=== PATIENT | female | born 1975 | race African-American/Black ===

== ENCOUNTER 2022-10-10 18:15 | Emergency (ER) | payer MEDICAID, SELFPAY ==
[2022-10-10 18:21] VITALS: BP 131/90; PULSE 80; RESP 16; TEMP 36.7; O2SAT 99; BMI 53.2
--- NOTE | 2022-10-10 19:53 | ED_ITS ---
HPI - General Adult General Chief complaint: Extremity Injury, Upper Stated complaint: RIB PAIN Time Seen by Provider: 10/10/22 18:27 Source: patient Mode of arrival: walk-in History of Present Illness HPI narrative: pt presents to emergency department complaining of left rib pain. Patient states one week ago she was inside her car and noticed that her sugar was high. She leaned forward to try to titrate her shoe and felt a pop to the left rib. Since then she's been having a lot of pain to the left rib. She was out of, she got here she went to [place] and had an rib x-ray done. The x-ray was unremarkable. The patient was prescribed Toradol and discharged home. She states that medication has not been helping. She still has the pain. Pain is worse when she moves. She denies any fever, chills, or cough. She denies any abdominal pain, nausea, vomiting, diarrhea, constipation, flank pain, hematuria, dysuria. She denies any paresthesias, weakness. Related Data Previous Rx's Medication Instructions Recorded cephalexin 500 mg capsule 500 mg PO Q8H 7 days #21 caps 10/10/22 oxycodone-acetaminophen 5 mg-325 1 tab PO Q6H PRN pain 5 days #14 10/10/22 mg tablet (Percocet) tabs Allergies Allergy/AdvReac Type Severity Reaction Status Date / Time acetaminophen [From [place]] Allergy Severe Verified 10/10/22 18:20 aloe vera [From [place]] Allergy Severe Verified 10/10/22 18:20 hydrocodone [From [place]] Allergy Severe Verified 10/10/22 18:20 menthol [From [facility]] Allergy Severe Verified 10/10/22 18:20 vitamin E (d-alpha Allergy Severe Verified 10/10/22 18:20 tocopherol) [From [facility]] Review of Systems ROS Status of ROS 10 or more systems reviewed and unremarkable except as noted in history and below Exam Narrative Exam Narrative: Nurses notes and vital signs reviewed and patient is not hypoxic. General: Nontoxic, Well-appearing and in no apparent distress. Skin: Warm, dry, no pallor noted. No Rash Head: Normocephalic, atraumatic. Neck: Supple, non-tender. Eye: Pupils are equal, round and EOMI. No scleral icterus. Ears, Nose, Mouth, and Throat: TM clear, no posterior oropharynx erythema or nasal mucosal hypertrophy, uvula is mid-line Oral mucosa is moist Cardiovascular: Regular Rate and Rhythm without murmur, gallop or rub. Respiratory: No accessory muscle use or respiratory distress. Lungs are clear to auscultation, no wheezing, rales or rhonchi Chest Wall: Moderate left lateral tenderness to rib 8 and 9, there are no step- offs, there is no crepitance. No ecchymosis, Signs of trauma, infection noted. Large pendulous breasts Back: No midline thoracic or lumbar vertebral tenderness. No CVA tenderness Musculoskeletal: normal ROM, no calf or popliteal tenderness, no lower ex tremity edema/swelling GI: morbid obese, Abdomen is soft, non-distended. Normal bowel sounds. No masses appreciated. No tenderness to palpation. No rebound, guarding, or rigidity noted. Neurological: A&O x4. No cranial nerve dysfunction observed. No truncal ataxia. Moves all extremities. Sensation intact. Psychiatric: Cooperative and interactive. Normal mood and affect. Constitutional Vital Signs, click to edit/add: Last Vital Signs Temp 98.0 F 10/10/22 18:21 Pulse 80 10/10/22 18:21 Resp 16 10/10/22 18:21 BP 131/90 10/10/22 18:21 Pulse Ox 99 10/10/22 18:21 O2 Del Method Room Air 10/10/22 18:21 Course Vital Signs Vital signs: Vital Signs Temperature 98.0 F 10/10/22 18:21 Pulse Rate 80 10/10/22 18:21 Respiratory Rate 16 10/10/22 18:21 Blood Pressure 131/90 10/10/22 18:21 Pulse Oximetry 99 10/10/22 18:21 Oxygen Delivery Method Room Air 10/10/22 18:21 Temperature 98.0 F 10/10/22 18:21 Pulse Rate 80 10/10/22 18:21 Respiratory Rate 16 10/10/22 18:21 Blood Pressure 131/90 10/10/22 18:21 Pulse Oximetry 99 10/10/22 18:21 Oxygen Delivery Method Room Air 10/10/22 18:21 Medical Decision Making MDM Narrative Medical decision making narrative: OARRS was checked and appropriate. The patient has not received any controlled prescriptions since April 2021. Patient states she does not have a ride at this time. She was given a prescription for Percocet, She was given one Percocet to take when she arrives at home.PEP was ordered. Prescription for Keflex. Patient was also given an injection of Toradol. At this time the patient is without objective evidence of an acute process requiring hospitalization or inpatient management. The patient has remained hemodynamically stable. No additional indication for emergent studies at this time. I answered all questions. Discussed discharge instructions including standard anticipatory guidance and what should prompt a return to the emergency department, including if they get worse are not getting better or develops any new or concerning symptoms. I've given them specific time frame in which to follow-up, and who to follow-up with. The patient demonstrates understanding. Patient is nontoxic and stable for discharge with outpatient follow-up. This note was created with the assistance of a speech recognition program. Although the intention is to generate documents that actually reflects the content of the visit, no guarantees can be provided that every mistake has been identified and corrected by editing. Lab Data Lab results reviewed: Yes I reviewed the patient's lab results Labs: Lab Results 10/10/22 Range/Units 20:20 Urine Color Yellow (YELLOW) Urine Clarity Clear (CLEAR) Urine pH 5.5 (5.0-9.0) Ur Specific [place] 1.020 (1.005-1.025) Urine Protein Negative (NEG/TRACE) mg/dL Urine Glucose (UA) Negative (NEGATIVE) mg/dL Urine Ketones Negative (NEGATIVE) mg/dL Urine Occult Blood Negative (NEGATIVE) Urine Nitrite Positive A (NEGATIVE) Urine Bilirubin Negative (NEGATIVE) Urine Urobilinogen 1.0 (0.2-1.0) EU/dL Ur Leukocyte Esterase Small A (NEGATIVE) Urine RBC 0-2 (0-2) #/HPF Urine WBC 10-20 A (NONE SEEN) #/HPF Ur Squamous Epith Cells Moderate A (NONE/RARE) #/LPF Urine Crystals None seen (None Seen) #/HPF Urine Bacteria Large A (NONE SEEN) #/HPF Urine Casts None seen (NONE SEEN) #/LPF Urine Mucus None seen (NONE SEEN) Ur Culture Indicated? Yes Discharge Plan Discharge Chief Complaint: Extremity Injury, Upper Clinical Impression: UTI (urinary tract infection), Left rib fracture Patient Disposition: Home, Self-Care Time of Disposition Decision: 21:17 Condition: Good Mode of Transportation: Private Vehicle Prescriptions / Home Meds: New cephalexin 500 mg capsule 500 mg PO Q8H 7 Days Qty: 21 0RF oxycodone-acetaminophen [Percocet] 5-325 mg tablet 1 tab PO Q6H PRN (Reason: pain) 5 Days Qty: 14 0RF Instructions: Urinary Tract Infection in Women (ED), Rib Fracture (ED) Stand Alone Forms: Portal Instructions Referrals: PRIMITIVO GUERRERO APRN [Physician] - 1 week Physician,Non-Staff, [Primary Care Provider] - 1 week Discharge Date/Time: 10/10/22 21:59
--- NOTE | 2022-10-10 20:03 | XR_ITS ---
The [address] [address] Patient Name: GENNARO ADKINS MRN: [id number] date: 1975 Sex: F Assigned Patient Location: ER Current Patient Location: ED.MAIN Accession/Order Number: [id number] Exam Date: 10/10/2022 20:38 Report Date: 10/10/2022 21:27 At the request of: HENRY WINN Procedure: XR ribs LT min 3V w CXR1V EXAM: XR ribs LT min 3V w CXR1V HISTORY: LEFT RIB PAIN COMPARISON: None. TECHNIQUE: 7 views FINDINGS: There is a mildly offset fracture of the anterolateral left seventh rib. Other ribs are intact. Multilevel thoracic spondylosis is noted, commensurate with age. The lung cain are well-expanded and clear. Cardiovascular silhouette is normal. XR/XR ribs LT min 3V w CXR1V IMPRESSION: Left seventh rib fracture. Electronically authenticated by: Dat HERNANDEZ Date: 10/10/2022 21:27
[2022-10-10 20:51] LABS: Bilirubin Urine NEGATIVE (NEGATIVE); Blood Urine NEGATIVE (NEGATIVE); Clarity Urine CLEAR (CLEAR); Color Urine YELLOW (YELLOW); Glucose Urine UA NEGATIVE (NEGATIVE); Ketones Urine NEGATIVE (NEGATIVE); Leukocyte Esterase Urine SMALL (NEGATIVE); Nitrite Urine POSITIVE (NEGATIVE); Protein Urine NEGATIVE (NEG/TRACE); pH Urine 5.5 (5.0-9.0)
[2022-10-10 20:54] LABS: Urine Microscopic Indicated YES
[2022-10-10 20:59] LABS: Bacteria Urine LARGE #/HPF (NONE SEEN); Cast Seen? NONE SEEN #/LPF (NONE SEEN); Crystals Seen? None Seen #/HPF (None Seen); Mucus Urine NONE SEEN (NONE SEEN); RBC Urine 0-2 #/HPF (0-2); Squamous Epithelial Cell Urine MODERATE #/LPF (NONE/RARE); Urine Culture Indicated YES
[2022-10-10] MEDS: CEPHALEXIN 500 MG CAPSULE PO (21:53)
[2022-10-10] MEDS: KETOROLAC TROMETHAMINE 60 MG/2 ML VIAL IM (21:54)
== END 2022-10-10 21:59 | disposition home or self-care (01) ==
PROVIDERS: Physician Assistant; Emergency Provider Emergency Medicine
DX: S22.32XA Fracture of one rib, left side, initial encounter for closed fracture (principal); N39.0 Urinary tract infection, site not specified; X50.9XXA Other and unspecified overexertion or strenuous movements or postures, initial encounter; E66.01 Morbid (severe) obesity due to excess calories; Z68.43 Body mass index [BMI] 50.0-59.9, adult
CPT/HCPCS: 71101; 81001; 81003; 87086; 87150; 87186; 94667; 96372; 99285

== ENCOUNTER 2023-03-20 17:37 | Emergency (ER) | payer MEDICAID, SELFPAY ==
[2023-03-20 17:42] VITALS: BP 161/108; PULSE 92; RESP 18; TEMP 36.8; O2SAT 96; BMI 55.7
--- NOTE | 2023-03-20 17:48 | XR_ITS ---
The [place] [id number] Patient Name: GENNARO ADKINS MRN: [id number] date: 1975 Sex: F Assigned Patient Location: ER Current Patient Location: ED.MAIN Accession/Order Number: [id number] Exam Date: 03/20/2023 17:53 Report Date: 03/20/2023 18:22 At the request of: BRIDGETT SHEN Procedure: XR chest 1V Exam: Radiographs: XR chest 1V Reason for exam: Chest pain Comparison: Chest x-ray dated 12/07/2013 XR/XR chest 1V IMPRESSION: Unremarkable chest x-ray. Electronically authenticated by: CARMEN CHÁVEZ Date: 03/20/2023 18:22
--- NOTE | 2023-03-20 17:48 | US_ITS ---
The [address] [address] Patient Name: GENNARO ADKINS MRN: [id number] date: 1975 Sex: F Assigned Patient Location: ER Current Patient Location: ER Accession/Order Number: [id number] Exam Date: 03/20/2023 18:10 Report Date: 03/20/2023 20:02 At the request of: BRIDGETT SHEN Procedure: US right upper quadrant EXAM: Abdominal ultrasound limited CLINICAL INDICATION: RUQ pain. COMPARISON: None TECHNIQUE: Grayscale and color Doppler imaging was performed of the right upper quadrant abdomen. FINDINGS: Liver: Diffuse hepatic steatosis. Mild hepatomegaly measuring up to 19.8 cm. No abnormal hepatic masses. Portal and hepatic veins are grossly patent. Gallbladder: Probable small amount of non-shadowing cholelithiasis versus echogenic sludge. No gallbladder wall thickening. No pericholecystic fluid. No evidence of sonographic Angela's sign noted by the clutch mechanic. Nondilated gallbladder. Biliary: No intrahepatic biliary ductal dilation. Common bile duct measures 3 mm. Kidneys: No right hydronephrosis. No sonographically evident right renal calculi. No right renal masses. Right kidney measures 10.5 cm length. Aorta/IVC: Patent and normal caliber where visualized. No ascites. US/US right upper quadrant IMPRESSION: 1. No acute sonographic abnormalities in the right upper quadrant. 2. Cholelithiasis with small amount of nonshadowing stones versus echogenic biliary sludge. Electronically authenticated by: CARMEN CHÁVEZ Date: 03/20/2023 20:02
--- NOTE | 2023-03-20 17:50 | ED_ITS ---
HPI - Abdominal Pain General Chief Complaint: Back Pain/Injury Stated Complaint: R SIDE PAIN Time Seen by Provider: 03/20/23 17:42 Source: patient Mode of arrival: Wheelchair Limitations: no limitations History of Present Illness HPI narrative: 47-year-old female presents to the emergency department for right upper quadrant abdominal pain which she's had it continuously since yesterday. No history of gallbladder issues. The rest of her abdomen does not hurt. No fever or cough and she doesn't complain of shortness of breath. The pain is moderate. Related Data Previous Rx's Medication Instructions Recorded cephalexin 500 mg capsule 500 mg PO Q8H 7 days #21 caps 10/10/22 oxycodone-acetaminophen 5 mg-325 1 tab PO Q6H PRN pain 5 days #14 10/10/22 mg tablet (Percocet) tabs Allergies Allergy/AdvReac Type Severity Reaction Status Date / Time acetaminophen [From [place]] Allergy Severe Verified 10/10/22 18:20 aloe vera [From [facility]] Allergy Severe Verified 10/10/22 18:20 hydrocodone [From [place]] Allergy Severe Verified 10/10/22 18:20 menthol [From [facility]] Allergy Severe Verified 10/10/22 18:20 vitamin E (d-alpha Allergy Severe Verified 10/10/22 18:20 tocopherol) [From [facility]] Review of Systems ROS Narrative A ten point review of systems is negative except as noted above. PFSH PFSH Social History Smoking status: Never smoker Exam Narrative Exam Narrative: Nurses note and vital signs reviewed and patient is not hypoxic. General: The patient appears well and in no apparent distress. Patient is resting comfortably on cart. Skin: Warm, dry, no pallor noted. There is no rash noted. Head: Normocephalic, atraumatic Eye: Normal conjunctiva, no drainage Ears, Nose, Mouth, and Throat: oral mucosa is moist. Nares patent. Cardiovascular: Regular Rate and Rhythm Respiratory: Patient is in no distress, no accessory muscle use, lungs are clear to auscultation, no wheezing, rales or rhonchi Back: non-tender GI: obese soft and nondistended. She has some tenderness in the right upper quadrant. No bruise or rash present. Musculoskeletal: The patient has no evidence of calf tenderness, no pitting edema, symmetrical pulses noted bilaterally Neurological: A&O, normal speech Psychiatric: Cooperative Constitutional Vital Signs, click to edit/add: Last Vital Signs Temp 98.2 F 03/20/23 17:42 Pulse 92 H 03/20/23 17:42 Resp 18 03/20/23 17:42 BP 161/108 H 03/20/23 17:42 Pulse Ox 96 03/20/23 17:42 O2 Del Method Room Air 03/20/23 17:42 Course Vital Signs Vital signs: Vital Signs Temperature 98.2 F 03/20/23 17:42 Pulse Rate 92 H 03/20/23 17:42 Respiratory Rate 18 03/20/23 17:42 Blood Pressure 161/108 H 03/20/23 17:42 Pulse Oximetry 96 03/20/23 17:42 Oxygen Delivery Method Room Air 03/20/23 17:42 Temperature 98.2 F 03/20/23 17:42 Pulse Rate 92 H 03/20/23 17:42 Respiratory Rate 18 03/20/23 17:42 Blood Pressure 161/108 H 03/20/23 17:42 Pulse Oximetry 96 03/20/23 17:42 Oxygen Delivery Method Room Air 03/20/23 17:42 MDM - Abdominal Pain MDM Narrative Medical decision making narrative: Tests are ordered including gallbladder ultrasound and the patient is signed out to Dr. Krueger. Differential Diagnosis Differential diagnosis: Likely abdominal pain, constipation, pancreatitis and other (gallbladder disease) Lab Data Labs: Lab Results 03/20/23 Range/Units 18:00 WBC 2.0 L (4.0-11.0) 10^3/uL RBC 4.13 L (4.20-5.40) 10^6/uL Hgb 12.4 (12.0-16.0) g/dL Hct 38.8 (36.0-48.0) % MCV 93.9 (81.0-99.0) fL MCH 30.0 (26.7-34.0) pg MCHC 32.0 (29.9-35.2) g/dL RDW 14.6 (11.0-15.0) % Plt Count 346 (150-450) 10^3/uL MPV 8.6 L (9.5-13.5) fL Discharge Plan Discharge Patient Disposition: Still a Patient
--- NOTE | 2023-03-20 18:09 | PC.NURSE ---
pt states R upper rib pain started last night after almost slipping in the shower. denies any urinary sx. ddenies any nausea/vomiting/diarrhea. took percocet at 0430 this morning,
[2023-03-20 18:18] LABS: Hematocrit 38.8 % (36.0-48.0); Hemoglobin 12.4 g/dL (12.0-16.0); Mean Corpuscular Volume 93.9 fL (81.0-99.0); Mean Platelet Volume 8.6 fL (9.5-13.5); Platelet Count 346 10^3/uL (150-450); Red Blood Count 4.13 10^6/uL (4.20-5.40); Red Cell Distribution Width 14.6 % (11.0-15.0)
[2023-03-20 18:43] LABS: Alanine Aminotransferase 24 U/L (14-59); Amylase 89 U/L (25-115); Anion Gap 10.7; Aspartate Amino Transferase 23 U/L (15-37); BUN Creatinine Ratio 6.5; Bilirubin Direct 0.1 mg/dL (0.0-0.2); Bilirubin Total 0.6 mg/dL (0.2-1.0); Calcium 8.6 mg/dL (8.5-10.1); Carbon Dioxide 29.8 mmol/L (21.0-32.0); Chloride 104 mmol/L (98-107); Estimated GFR (African America >60 (>=60); Estimated GFR (Non-African Ame >60 (>=60); Glucose 116 mg/dL (74-106); Potassium 3.5 mmol/L (3.5-5.1); Sodium 141 mmol/L (136-145)
[2023-03-20 18:44] LABS: Albumin Globulin Ratio 0.7; Albumin Level 3.2 g/dL (3.4-5.0); Alkaline Phosphatase 116 U/L (46-116); Basophils Abs Manual 0.04 10^3/uL (0.00-0.10); Globulin 4.3 g/dL; Lymphocytes Absolute Manual 0.84 10^3/uL (1.20-3.80); Monocytes Absolute Manual 0.16 10^3/uL (0.30-0.80); Segmented Neut Absolute Manual 0.92 10^3/uL (1.4-6.5); Total Protein 7.5 g/dL (6.4-8.2)
--- NOTE | 2023-03-20 20:38 | CT_ITS ---
The [address] [address] Patient Name: GENNARO ADKINS MRN: [id number] date: 1975 Sex: F Assigned Patient Location: ER Current Patient Location: ER Accession/Order Number: [id number] Exam Date: 03/20/2023 20:48 Report Date: 03/20/2023 21:34 At the request of: KATIE MATIAS Procedure: CT angio chest EXAM: CT pulmonary angiogram of the chest with IV iodinated contrast. 3-D imaging was performed. Dose reduction technique used: Automated exposure control and/or adjustment of the mA and/or kV according to patient size and/or use of iterative reconstruction technique. REASON FOR EXAM: right pleuritic chest pain COMPARISON: CT scan dated 07/01/2009 FINDINGS: No central or segmental pulmonary emboli. Respiratory motion artifact prevents adequate evaluation of the subsegmental pulmonary artery branches. No aortic dissection. No pneumothorax. No acute airspace opacities. No pleural effusion. No acute fractures. No definite coronary atherosclerotic calcifications evident. 3.3 x 2.8 cm mass in the medial right lung base, this is not substantially changed compared to 2009. The opacity has some internal locules of gas. Small esophageal hiatal hernia. Cardiomegaly. Sleeve gastrectomy. 1.6 cm left adrenal nodule, this is been present since 2010 and is likely benign. Mildly enlarged bilateral axillary lymph nodes, for example a left axillary lymph node measures 1.5 x 1.5 cm density series 4, image 28). Remainder unremarkable. CT/CT angio chest IMPRESSION: 1. No central or segmental pulmonary embolism or acute abnormalities in chest. 2. Medial right lung base mass is not substantially changed in size compared to 07/01/2009 and is likely benign. 3. Bilateral axillary lymphadenopathy is indeterminate, correlate clinically. Electronically authenticated by: CARMEN CHÁVEZ Date: 03/20/2023 21:34
[2023-03-20 20:51] VITALS: BP 150/88; PULSE 88; RESP 15; O2SAT 98
[2023-03-20] MEDS: KETOROLAC TROMETHAMINE 30 MG/ML VIAL IVP (21:10)
[2023-03-20 22:00] VITALS: PULSE 78; RESP 16; O2SAT 98
== END 2023-03-20 22:00 | disposition home or self-care (01) ==
PROVIDERS: Emergency Medicine; Emergency Provider Internal Medicine
DX: S29.011A Strain of muscle and tendon of front wall of thorax, initial encounter (principal); W18.40XA Slipping, tripping and stumbling without falling, unspecified, initial encounter
CPT/HCPCS: 36415; 71045; 71275; 76705; 80048; 80076; 82150; 83690; 85007; 85027; 96374; 99285; J1885; Q9967

== ENCOUNTER 2023-07-18 20:05 | Outpatient (REF) | payer MEDICAID, SELFPAY ==
--- OUTSIDE RECORDS SUMMARY | 2023-07-18 20:13 | XMS_ITS | CCD ---
Author Organization [facility] Care Team Providers Care Director Corporate Security Name Role Phone SALLY WELCH Admitting Unavailable SALLY WELCH Attending Unavailable MISC, DOCTOR Primary Care Unavailable JC DODSON Consulting Unavailable SALLY WELCH Consulting Unavailable LYSSA PARK Admitting Unavailable ANGDU, JORDYN Primary Care Unavailable LYSSA PARK Attending Unavailable KINGS MIRANDA Referring Unavailable Alesha Watkins Unavailable Shilpi Cedillo Unavailable Lynda Pena Unavailable RIKI Sherman Attending Unavailable Velia LUND Attending Unavailable Zhane SENIOR CONSUMER INSIGHTS CONSULTANT-SOAP DRIER OPERATOR, Bong Primary Care Provid er FARRUKH WILCOX Attending Unavailable ZHANE, BONG Referring Unavailable ZHANE, BONG Primary Care Unavailable ZHANE, BONG Attending Unavailable ZHANE, BONG Referring Unavailable ZHANE, BONG Primary Care Unavailable ZHANE, BONG Attending Unavailable ZHANE, BONG Referring Unavailable ZHANE, BONG Primary Care Unavailable DARLIN HOLLAND Attending Unavailable ZHANE, BONG Referring Unavailable ZHANE, BONG Primary Care Unavailable ZHANE, BONG Referring Unavailable ZHANE, BONG Primary Care Unavailable FARRUKH ALICIA Referring Unavailable ZHANE, BONG Primary Care Unavailable ZHANE, BONG Referring Unavailable ZHANE, BONG Primary Care Unavailable ZHANE, BONG Attending Unavailable ZHANE, BONG Referring Unavailable ZHANE, BONG Primary Care Unavailable ZHANE, BONG Referring Unavailable ZHANE, BONG Primary Care Unavailable ZHANE, BONG Referring Unavailable ZHANE, BONG Primary Care Unavailable ZHANE, BONG Attending Unavailable ZHANEBONG Referring Unavailable ZHANEBONG Primary Care Unavailable Allergies Allergy Classification Reported Allergen(s) Allergy Type Date of Onset Reaction(s) Facility (4 sources) Acetaminophen / HYDROcodone; Translations: [NORCO] Drug Allergy 1 Itchy [facility] (4 sources) cyclobenzaprine; Translations: [FLEXERIL] Drug Allergy 1 Itchy [facility] Repository (20 sources) hydroCHLOROthiazi de; Translations: [hydroCHLOROthiaz jorge] Drug Allergy 0 Nausea [facility] (1 source) Acetaminophen / HYDROcodone; Translations: [acetaminophen-hy drocodone] Drug Allergy 1 [facility] Repository (20 sources) cyclobenzaprine; Translations: [cyclobenzaprine] Drug Allergy 1 Headache, Hives [facility] (20 sources) Acetaminophen / HYDROcodone; Translations: [HYDROCODONE-ACET AMINOPHEN] Drug Allergy 0 Itching, Headache [facility] Medications Current Medications Medication Drug Class(es) Dates Sig (Normalized) Sig (Original) 8 hr acetaminophen 650 mg extended release oral tablet (19 sources) acetaminophen (TYLENOL ARTHRITIS) 650 mg 8 hr tablet acetaminophen ER 650 mg tablet,extended release 0 Active acetaminophen 325 mg / oxyCODONE hydrochloride 7.5 mg oral tablet (20 sources) Opioid Agonist Start: 03-21-2023 End: 06-11-2023 oxyCODONE-acetaminop hen (PERCOCET) 7.5-325 mg per tablet Indications: Other forms of systemic lupus erythematosus, unspecified organ involvement status (CMS-HCC) Take 1 tablet by mouth every 6 (six) hours as needed for pain. Max Daily Amount: 4 tablets 20 tablet 0 06/11/2023 Active Start: 03-08-2023 oxyCODONE-acet aminophen (PERCOCET) 7.5-325 mg per tablet Indications: Other forms of systemic lupus erythematosus, unspecified organ involvement status (CMS-HCC) Take 1 tablet by mouth every 6 (six) hours as needed for pain. Max Daily Amount: 4 tablets 20 tablet 0 03/08/2023 Active [id number] actuat albuterol 0.09 mg/actuat metered dose inhaler (20 sources) beta2-Adrenergic Agonist Start: 06-29-2022 take 2 puff(s) by inhalation every four to six hours as needed Albuterol Sulfate HFA 108 (90 Base) MCG/ACT 2 puffs as needed Inhalation every 4-6 hours for 14 days Jun, Active Start: 02-28-2019 take 1 puff(s) by in halation every four to six hours Albuterol Sulfate Active 2 PUFF INHALATION EVERY 4-6 HOURS February 28, 2019 5:05pm albuterol (PROVE NTIL,VENTOLIN) 2.5 mg /3 mL (0.083 %) nebulizer solution Inhale 3 mL (2.5 mg total) by nebulization as needed for wheezing. 0 Active albuterol (PROVE NTIL HFA;VENTOLIN HFA) 90 mcg/actuation inhaler Inhale 2 puffs as needed for wheezing. 0 Active Albuterol PRN Ac tive amLODIPine 10 mg oral tablet (19 sources) Dihydropyridine Calcium Channel Silvana Start: 11-05-2022 take 1 tablet by mouth in the morning amLODIPine (NORVASC) 10 mg tablet Indications: Essential hypertension Take 1 tablet (10 mg total) by mouth in the morning. 30 tablet 11 11/05/2022 Active ascorbic acid 500 mg oral tablet (19 sources) Vitamin C take 500 mg by mouth once daily ascorbic acid (VITAMIN C ORAL) Take 500 mg by mouth daily. 0 Active atogepant (QULIPTA) 60 mg tablet (19 sources) Start: 12-06-2022 take 1 tablet by mouth in the morning atogepant (QULIPTA) 60 mg tablet Indications: Other migraine without status migrainosus, not intractable Take 60 mg by mouth in the morning. 30 tablet 0 12/06/2022 Active Atovaquone (1 source) Antimalarial, Antiprotozoal Start: 02-28-2019 take 1 mL by mouth once daily Atovaquone Active 10 ML PO Daily February 28, 2019 5:45pm Augmentin Tablets 875 MG (2 sources) Start: 06-28-2022 take 1 tablet by mouth every twelve hours Augmentin Tablets 875 MG 1 tab(s) orally bid for 10 days Jun, Active azaTHIOprine 100 mg oral tablet (20 sources) Purine Antimetabolite Start: 05-07-2023 take 1 tablet by mouth twice daily azaTHIOprine (IMURAN) 100 mg tablet Indications: Systemic lupus erythematosus, unspecified SLE type, unspecified organ involvement status ([facility]) TAKE 1 TABLET BY MOUTH TWICE A DAY 60 tablet 1 05/07/2023 Active Start: 01-02-2023 take 1 tablet by padmaja twice daily azaTHIOprine (IMURAN) 100 mg tablet Indications: Systemic lupus erythematosus, unspecified SLE type, unspecified organ involvement status ([facility]) TAKE 1 TABLET BY MOUTH TWICE A DAY 60 tablet 1 01/02/2023 Active Start: 02-28-2019 take 50 mg by mouth three times daily Azathioprine Active 50 MG PO Three times daily February 28, 2019 5:45pm Imuran Active baclofen 10 mg oral tablet (19 sources) gamma-Aminobutyric Acid-ergic Agonist baclofen (LIORESAL) 10 mg tablet 1 tablet as needed Orally prn 0 Active cholecalciferol, vitamin D3, (VITAMIN D3 ORAL) (19 sources) take 2000 [IU] by mouth once daily cholecalciferol, vitamin D3, (VITAMIN D3 ORAL) Take 2,000 Unit by mouth daily. 0 Active ciprofloxacin 500 mg oral tablet (4 sources) Quinolone Antimicrobial Start: 2023 End: 2023 take 1 tablet by mouth in the morning, then take 1 tablet by mouth at bedtime ciprofloxacin HCl (CIPRO) 500 mg tablet Indications: Acute cystitis without hematuria Take 1 tablet (500 mg total) by mouth in the morning and 1 tablet (500 mg total) before bedtime. Do all this for 7 days. 14 tablet 0 05/01/2023 05/08/2023 Active dexamethasone 4 mg oral tablet (3 sources) Corticosteroid Start: 2021 Dexamethasone 4 MG 3 tablets daily for 3 days then 2 tablets daily for 3 days then 1 tablet daily for 3 days Orally Once a day for 9 days Jan, Active dextromethorphan hydrobromide 1.5 mg/ml / pyrilamine maleate 1.5 mg/ml oral solution (1 source) Uncompetitive A-knlujd-R-aspartate Receptor Antagonist, Sigma-1 Agonist Start: 2022 take 10 mL by mouth every eight hours [place] DM 7.5-7.5 MG/5ML 10 mL Orally every 8 hours for 5 days Jun, Active diclofenac sodium 75 mg delayed release oral tablet (19 sources) Nonsteroidal Anti-inflammatory Drug Start: 2022 take 1 tablet by mouth in the morning, then take 1 tablet by mouth at bedtime diclofenac (VOLTAREN) 75 mg EC tablet Take 1 tablet (75 mg total) by mouth in the morning and 1 tablet (75 mg total) before bedtime. 60 tablet 1 10/25/2022 Active DULoxetine 60 mg delayed release oral capsule (20 sources) Serotonin and Norepinephrine Reuptake Inhibitor Start: 2023 End: 2023 take 1 capsule by mouth in the morning DULoxetine (CYMBALTA) 60 mg capsule Take 1 capsule (60 mg total) by mouth in the morning. 90 capsule 1 05/22/2023 Active Start: 02-28-2019 take 60 mg by mouth once daily Duloxetine Active 60 MG PO Daily February 28, 2019 5:45pm fluticasone propionate 0.05 mg/actuat metered dose nasal spray (1 source) Corticosteroid Start: 02-28-2019 Fluticasone Propionate Active 1 SPRAY INTRANASAL Twice daily February 28, 2019 5:45pm hydroxychloroquine sulfate 200 mg oral tablet (1 source) Antimalarial, Antirheumatic Agent Start: 02-28-2019 take 200 mg by mouth twice daily at mealtime Hydroxychloroquine Active 200 MG PO Twice daily with meals February 28, 2019 5:45pm hydrOXYzine hydrochloride 50 mg oral tablet (20 sources) Antihistamine Start: 06-18-2023 take 1 tablet by mouth once daily hydrOXYzine (ATARAX) 50 mg tablet Take 1 tablet (50 mg total) by mouth nightly. 30 tablet 1 06/18/2023 Active Start: 05-07-2023 End: 06-18-2023 take 1 capsule by mouth three times daily as needed hydrOXYzine (VISTARIL) 50 mg capsule Indications: Medication refill Take 1 capsule (50 mg total) by mouth 3 (three) times a day as needed for itching. 270 capsule 0 05/07/2023 06/18/2023 Discontinued Start: 12-15-2022 take 1 capsule by mo [facility] three times daily as needed hydrOXYzine (VISTARIL) 50 mg capsule Indications: Medication refill Take 1 capsule (50 mg total) by mouth 3 (three) times a day as needed for itching. 270 capsule 0 12/15/2022 Active End: 06-18-2023 take 1 tablet by mouth once daily hydrOXYzine (ATARAX) 50 mg tablet Take 1 tablet (50 mg total) by mouth nightly. 0 06/18/2023 Discontinued (Reorder) take 1 tablet by padmaja th twice daily as needed hydrOXYzine HCl 50 MG 1 tablet as needed Orally twice daily for 30 day(s) Active ibuprofen 800 mg oral tablet (20 sources) Nonsteroidal Anti-inflammatory Drug Start: 10-25-2022 take 1 tablet by mouth three times daily ibuprofen (MOTRIN) 800 mg tablet Take 1 tablet (800 mg total) by mouth 3 (three) times a day. 21 tablet 0 10/25/2022 Active Start: 05-05-2019 take 800 mg by mouth three times daily Ibuprofen Active 800 MG PO Three times daily May 05, 2019 10:13am lidocaine 0.05 mg/mg medicated patch (16 sources) Antiarrhythmic, Amide Local Anesthetic Start: 03-21-2023 apply 1 dose transdermal route once daily, then apply 1 dose transdermal route every twelve hours lidocaine (LIDODERM) 5 % Place 1 patch on the skin daily. Remove & Discard patch within 12 hours or as directed by MD [facility] patch 0 03/21/2023 Active lisinopril 20 mg oral tablet (3 sources) Angiotensin Converting Enzyme Inhibitor take 1 tablet by mouth every twenty-four hours Lisinopril 20 MG 1 tablet Orally Once a day for 30 day(s) Active 24 hr metFORMIN hydrochloride 500 mg extended release oral tablet (20 sources) Biguanide Start: 05-15-2023 take 2 tablets by mouth once daily at bedtime metFORMIN XR (GLUCOPHAGE XR) 500 mg 24 hr tablet Indications: Pre-diabetes TAKE 2 TABLETS BY MOUTH EVERY MORNING AND EVERY NIGHT AT BEDTIME 90 tablet 1 05/15/2023 Active Start: 04-06-2023 End: 05-15-2023 take 2 tablets by mouth every twenty-four hours at bedtime metFORMIN XR (GLUCOPHAGE XR) 500 mg 24 hr tablet Indications: Pre-diabetes Take 2 tablets (1,000 mg total) by mouth in the morning and at bedtime. 90 tablet 0 04/06/2023 05/15/2023 Discontinued Start: 01-15-2023 End: 04-06-2023 take 2 tablets by mouth once daily at breakfast metFORMIN XR (GLUCOPHAGE XR) 500 mg 24 hr tablet Indications: Pre-diabetes Take 2 tablets (1,000 mg total) by mouth daily with breakfast. 90 tablet 0 03/09/2023 04/06/2023 Discontinued (Reorder) montelukast 10 mg oral tablet (19 sources) Leukotriene Receptor Antagonist take 1 tablet by mouth in the morning montelukast (SINGULAIR) 10 mg tablet Take 1 tablet (10 mg total) by mouth in the morning. 0 Active multivitamin (THERAGRAN) tablet (19 sources) take 1 tablet by mouth in the morning multivitamin (THERAGRAN) tablet Take 1 tablet by mouth in the morning. 0 Active naproxen 500 mg oral tablet (19 sources) Nonsteroidal Anti-inflammatory Drug Start: take 1 tablet by mouth in the morning, then take 1 tablet by mouth at mealtime naproxen (NAPROSYN) 500 mg tablet Indications: Lupus (CMS-HCC) Take 1 tablet (500 mg total) by mouth in the morning and 1 tablet (500 mg total) in the evening. Take with meals. 60 tablet 0 01/17/2023 Active omeprazole 20 mg delayed release oral capsule (18 sources) Proton Pump Inhibitor Start: End: take 1 capsule by mouth once daily in the morning omeprazole (PriLOSEC) 20 mg capsule Indications: Gastroesophageal reflux disease without esophagitis take 1 capsule by mouth every morning 30 capsule 2 06/01/2023 Active 12 hr orphenadrine citrate 100 mg extended release oral tablet (19 sources) Muscle Relaxant Start: take 1 tablet by mouth twice daily as needed for muscle spasms orphenadrine (NORFLEX) 100 mg 12 hr tablet Take 1 tablet (100 mg total) by mouth 2 (two) times a day as needed for muscle spasms. 10 tablet 0 10/01/2022 Active predniSONE 20 mg oral tablet (3 sources) Start: take 1 tablet by mouth every twelve hours prednisone 20 MG 1 tablet Orally 2 times a day for 5 days Jun, Active Start: 02-28-2019 take 60 mg by mouth once daily Prednisone Active 60 MG PO Daily February 28, 2019 5:45pm On taper-down sodium chloride 0.111 meq/ml nasal spray (19 sources) Start: 01-17-2023 sodium chlorid e (OCEAN NASAL) 0.65 % nasal spray Administer 1 spray into each nostril as needed for rhinitis. 15 mL 12 01/17/2023 Active 0.5 ml SUMAtriptan 12 mg/ml auto-injector (20 sources) Serotonin-1b and Serotonin-1d Receptor Agonist Start: 02-28-2019 Sumatriptan Succinat e Active 6 MG SUBCUT As Directed February 28, 2019 5:45pm SUMAtriptan succ inate 6 mg/0.5 mL needle-free injector Inject 0.5 mL (6 mg total) under the skin as needed (migraine headache). 0 Active SUMAtriptan Acti ve tirzepatide, weight loss, 2.5 mg/0.5 mL pen injector (19 sources) Start: 03-02-2023 tirzepatide, w eight loss, 2.5 mg/0.5 mL pen injector Indications: Pre-diabetes Inject 2.5 mg under the skin every 7 days. 3 mL 1 03/02/2023 Active tiZANidine 4 mg oral tablet (20 sources) Central alpha-2 Adrenergic Agonist Start: 02-07-2022 take 1 tablet by mouth every eight hours Zanaflex 4 MG 1 tablet as needed Orally every 8 hrs Jan, Active take 1 tablet by padmaja th every six hours as needed tiZANidine (ZANAFLEX) 2 mg tablet Take 1 tablet (2 mg total) by mouth every 6 (six) hours as needed. 0 Active Completed/Discontinued Medications Medication Drug Class(es) Dates Sig (Normalized) Sig (Original) codeine phosphate 2 mg/ml / guaiFENesin 20 mg/ml oral solution (2 sources) Opioid Agonist Start: 02-15-2023 End: 03-08-2023 take 5 mL by mouth three times daily as needed for cough codeine-guaiFENesin (guaiFENesin AC) 10-100 mg/5 mL liquid Indications: Acute upper respiratory infection Take 5 mL by mouth 3 (three) times a day as needed for cough. 118 mL 0 02/15/2023 03/08/2023 Discontinued (Therapy completed) tirzepatide 2.5 mg/0.5 mL pen injector (1 source) Start: 02-27-2023 End: 03-02-2023 tirzepatide 2.5 mg/0.5 mL pen injector Indications: Weight loss , Class 3 severe obesity with body mass index (BMI) of 50.0 to 59.9 in adult, unspecified obesity type, unspecified whether serious comorbidity present ([facility]) Inject 2.5 mg under the skin every 7 days. Please dispense Zepbound 3 mL 0 02/27/2023 03/02/2023 Discontinued (Alternate therapy) triamcinolone acetonide 40 mg/ml injectable suspension (3 sources) Corticosteroid Start: 12-05-2021 Kenalog-40 Nov, 40 mg Problems Active Problems Problem Classification Problem Date Documented Date Episodic/Chronic Abdominal pain (1 source) Epigastric pain; Translations: [Epigastric pain] 05-04-2023 Episodic Administrative/socia l admission (1 source) Encounter for issue of repeat prescription Episodic Diabetes mellitus without complication (8 sources) Prediabetes; Translations: [Prediabetes] Onset: 04-06-2023 03-02-2023 Episodic Esophageal disorders (4 sources) Gastroesophageal reflux disease without esophagitis; Translations: [Gastro-esophageal reflux disease without esophagitis] Onset: 04-06-2023 04-06-2023 Chronic Essential hypertension (20 sources) Essential (primary) hypertension; Translations: [Essential hypertension] Onset: 03-07-2018 02-07-2021 Chronic External cause codes: Fall (1 source) Other fall on same level, initial encounter; Translations: [OTHER FALL ON SAME LEVEL INITIAL] Onset: 03-07-2018 Immunizations and screening for infectious disease (4 sources) Contact with and (suspected) exposure to other viral communicable diseases; Translations: [Contact with and (suspected) exposure to other viral communicable diseases] Episodic Osteoarthritis (20 sources) Osteoarthritis of left knee joint; Translations: [Unilateral primary osteoarthritis, left knee] Onset: 08-03-2022 08-03-2022 Chronic Other aftercare (1 source) Patient encounter status; Translations: [Encounter for therapeutic drug level monitoring] 04-30-2023 Episodic Other aftercare (1 source) Encounter for therapeutic drug level monitoring; Translations: [Encounter for therapeutic drug level monitoring] Onset: 07-12-2023 Episodic Other injuries and conditions due to external causes (1 source) Contusion; Translations: [Other injury of unspecified body region, initial encounter] 05-05-2019 Episodic Other liver diseases (2 sources) Steatosis of liver; Translations: [Fatty (change of) liver, not elsewhere classified] 05-04-2023 Chronic Other non-traumatic joint disorders (3 sources) Pain in left wrist; Translations: [PAIN IN LEFT WRIST] Onset: 03-04-2018 Episodic Other non-traumatic joint disorders (1 source) Pain in left knee; Translations: [Pain in joint, lower leg] 05-24-2023 Episodic Other nutritional; endocrine; and metabolic disorders (20 sources) Severe obesity; Translations: [Morbid (severe) obesity due to excess calories] Onset: 12-27-2020 12-27-2020 Chronic Residual codes; unclassified (1 source) Acquired absence of both cervix and uterus; Translations: [ACQUIRED ABSENCE BOTH CERVIX AND UTERUS] Onset: 03-07-2018 Episodic Spondylosis; intervertebral disc disorders; other back problems (20 sources) Lumbosacral spondylosis without myelopathy; Translations: [Spondylosis without myelopathy or radiculopathy, lumbosacral region] Onset: 07-19-2016 07-19-2016 Chronic Sprains and strains (1 source) Unspecified sprain of left wrist, initial encounter; Translations: [UNSPECIFIED SPRAIN LT WRIST INITIAL] Onset: 03-07-2018 Episodic Superficial injury; contusion (1 source) Abrasion of left knee; Translations: [Abrasion, left knee, initial encounter] 05-05-2019 Episodic Systemic lupus erythematosus and connective tissue disorders (5 sources) Systemic lupus erythematosus; Translations: [Other forms of systemic lupus erythematosus] Onset: 03-01-2023 03-08-2023 Chronic Urinary tract infections (4 sources) Acute cystitis; Translations: [Acute cystitis without hematuria] Onset: 07-12-2023 04-24-2023 Episodic Past or Other Problems Problem Classification Problem Date Documented Da te Episodic/Chronic Genitourinary symptoms and ill-defined conditions (3 sources) Increased frequency of urination; Translations: [Frequency of micturition] Onset: 04-06-2023 04-06-2023 Episodic Mood disorders (19 sources) Mood disorders Onset: 11-02-2022 11-02-2022 Nonspecific chest pain (3 sources) Chest discomfort; Translations: [Other chest pain] Onset: 04-06-2023 04-06-2023 Episodic Other non-traumatic joint disorders (19 sources) Anterior knee pain; Translations: [Pain in right knee] Onset: 04-20-2021 04-20-2021 Episodic Unclassified (1 source) Lumbar pain M54.50 Unclassified (19 sources) Onset: 01-06-2020 01-06-2020 Results Test Name Value Interpretation Reference Range Facility HGB A1C (GLYCO-HGB)on 2023 Glucose [Mass/Vol] 131 mg/dL Normal [facility] Comment on above: Performed By: #### C BCA, 93086-8, C34, 47277-0, CMP, 1987-, ENAP, 44093-0, 77555-3, 45921-1, 5130-0, 34042-4 #### [facility] ([id number]) [address], [address] [place] [address] #### 29755-2, NAIFA #### [facility] ([id number]) [address] [place] [address], [place] [address] HbA1c (Bld) [Mass fraction] 6.2 % High 4.4-5.6 [facility] Comment on above: Result Comment: NOTE ADA Guidelines Result HgbA1c Normal : less than 5.7 % Prediabetes : 5.7 % to 6.4 % Diabetes : > 6.4 % Use with caution in patients with abnormal hemoglobin variants as the half-life of red blood cells and in vivo glycation rates are affected. Performed By: #### C BCA, 83470-7, C34, 16256-0, CMP, 1987-, ENAP, 53715-9, 01166-9, 73829-8, 5130-0, 53104-4 #### [facility] ([id number]) [address] [address] [address], [address] [place] [id number] #### 97802-9, NAIFA #### [facility] ([id number]) [address] [place] [address] QUANTIFERON TB GOLDon 2023 MITOGEN MINUS NIL 0.19 IU/mL Low >=0.50 [facility] Comment on above: Performed By: #### C BCA, 75545-6, C34, 82853-1, CMP, 1987-5, ENAP, 89251-7, 52607-6, 54966-5, 5130-0, 10086-9 #### [facility] ([id number]) [address] [place] [address], [address] [place] [address] #### 83548-2, NAIFA #### [facility] ([id number]) [address] [place] [address] 22212 NIL RESULT 0.05 IU/mL Normal <=8.00 [facility] Comment on above: Performed By: #### C BCA, 12245-4, C34, 52873-6, CMP, 1987-, ENAP, 39724-5, 95209-6, 00216-9, 5130-0, 75827-0 #### [facility] ([id number]) [address], [address] [place] [address] #### 52149-4, NAIFA #### [facility] ([id number]) [address] [place] [address] 24280 TB INTERPRETATION See below Normal [facility] Comment on above: Result Comment: NOTE This result is indeterminate for Mycobacterium tuberculosis complex antigen responsiveness. Specimens from immunocompromised patients, those <5 years of age, and those with a known recent exposure may fall under this category. Please correlate with clinical picture and other alternative assessments. Test Performed By: [facility] [employer] [address] [place] [address] Touring Production Manager: Manan Awan III, M.D. CLIA #[id number] Performed By: #### C BCA, 07768-1, C34, 87818-2, CMP, 1987-5, ENAP, 92245-1, 51587-2, 35123-4, 5130-0, 91323-0 #### [facility] ([id number]) [address], [address] [place] [address] #### 83430-6, NAIFA #### [facility] ([id number]) [address] [place] [address]771 TB RESULT Indeterminate Normal [facility] Comment on above: Performed By: #### C BCA, 24821-0, C34, 01012-8, CMP, 1987-07, ENAP, 99597-2, 61194-7, 54527-9, 5130-0, 36303-1 #### [facility] ([id number]) [address], [address] [place] [address] #### 66017-7, NAIFA #### [facility] ([id number]) [address] [place] [address]10 TB1 AG MINUS NIL 0.00 IU/mL Normal <0.35 [facility] Comment on above: Performed By: #### C BCA, 17407-4, C34, 44256-4, CMP, 1987-07, ENAP, 15977-7, 43141-5, 33903-5, 5130-0, 38959-1 #### [facility] ([id number]) [address], [address] [place] [address] #### 31260-5, NAIFA #### [facility] ([id number]) [address] [place] [address] 38711 TB2 AG MINUS NIL <0.00 Normal <0.35 [facility] Comment on above: Performed By: #### C BCA, 39177-8, C34, 30218-3, CMP, 1988-5, ENAP, 07381-2, 98812-7, 02348-7, 5130-0, 81073-2 #### [facility] ([id number]) [address], [address] [place] [address] #### 66054-5, NAIFA #### [facility] ([id number]) [address] [place] [address]37 URINALYSISon 07-12-2023 Bilirubin Ql (U) Negative Normal NEG [facility] Comment on above: Performed By: #### C BCA, 70641-3, C34, 51559-6, CMP, 1987-5, ENAP, 80096-8, 19964-3, 96233-1, 5130-0, 60584-8 #### [facility] ([id number]) [facility], [address] [place] [address] #### 33588-5, NAIFA #### [facility] ([id number]) [address] [place] [address] BLOOD/HGB Negative Normal NEG [facility] Comment on above: Performed By: #### C BCA, 44388-7, C34, 58457-9, CMP, 1988-5, ENAP, 26988-8, 86810-1, 44830-9, 5130-0, 06893-0 #### [facility] ([id number]) [address] [place] [address], [address] [place] [address] #### 23177-8, NAIFA #### [facility] ([id number]) [address] [place] [address] 81940 CA OXALATE CRYSTALS PRESENT Abnormal NONE [facility] Comment on above: Performed By: #### C BCA, 09635-0, C34, 65850-2, CMP, 1988-5, ENAP, 24650-5, 16109-9, 30289-2, 5130-0, 80350-9 #### [facility] ([id number]) [address], [address] [place] [address] #### 56519-2, NAIFA #### [facility] ([id number]) [address] [place] [address] Color (U) YELLOW Normal YELLOW [facility] Comment on above: Performed By: #### C BCA, 01121-5, C34, 91622-9, CMP, 1987-5, ENAP, 65506-5, 79824-9, 54286-7, 5130-0, 83962-7 #### [facility] ([id number]) [address], [address] [place] [address] #### 85722-2, NAIFA #### [facility] ([id number]) [address] [place] [address] 45789 Glucose Ql (U) Negative Normal NEG [facility] Comment on above: Performed By: #### C BCA, 33764-4, C34, 65404-2, CMP, 1987-, ENAP, 27574-5, 48770-9, 22337-9, 5130-0, 71395-6 #### [facility] ([id number]) [address], [address] [place] [address] #### 28629-0, NAIFA #### [facility] ([id number]) [address] [place] [address] 54107 Hyaline casts LM Ql (Urine sed) 3 /lpf High 0-2 [facility] Comment on above: Performed By: #### C BCA, 23937-2, C34, 65182-1, CMP, 1987-, ENAP, 89469-0, 54578-9, 97920-0, 5130-0, 74326-8 #### [facility] ([id number]) [address], [address] [place] [address] #### 23043-9, NAIFA #### [facility] ([id number]) [address] [place] [address] 24451 Ketones Ql (U) Negative Normal NEG [facility] Comment on above: Performed By: #### C BCA, 60937-7, C34, 19154-1, CMP, 1988-5, ENAP, 25582-5, 55757-9, 20217-5, 5130-0, 32478-7 #### [facility] ([id number]) [address], [address] [place] [address] #### 51314-3, NAIFA #### [facility] ([id number]) [address] [place] [address] 86276 Leukocyte esterase Test strip Ql (U) Negative Normal NEG [facility] Comment on above: Performed By: #### C BCA, 25885-1, C34, 08320-6, CMP, 1988-5, ENAP, 58161-3, 30984-4, 05311-5, 5130-0, 34808-1 #### [facility] ([id number]) [address], [address] [place] [address] #### 43548-7, NAIFA #### [facility] ([id number]) [address] [place] [address] 25046 MUCOUS PRESENT Abnormal NONE [facility] Comment on above: Performed By: #### C BCA, 79837-1, C34, 43075-9, CMP, 1988-5, ENAP, 70687-5, 28959-9, 30445-4, 5130-0, 07229-9 #### [facility] ([id number]) [address], [address] [place] [address] #### 73484-5, NAIFA #### [facility] ([id number]) [address] [place] [address] 96277 Nitrite Ql (U) Negative Normal NEG [facility] Comment on above: Performed By: #### C BCA, 71190-2, C34, 49722-8, CMP, 1988-5, ENAP, 38247-0, 77417-8, 51134-3, 5130-0, 33005-4 #### [facility] ([id number]) [address], [address] [place] [address] #### 15376-7, NAIFA #### [facility] ([id number]) [address] [place] [address] 63911 pH (U) 6.5 [pH] Normal 5.0-8.5 [facility] Comment on above: Performed By: #### C BCA, 30045-5, C34, 88774-4, CMP, 1988-5, ENAP, 73989-3, 64598-1, 01566-4, 5130-0, 44389-8 #### [facility] ([id number]) [address], [address] [place] [address] #### 37592-2, NAIFA #### [facility] ([id number]) [address] [place] [address] 57689 Protein Ql (U) Trace Abnormal NEG [facility] Comment on above: Performed By: #### C BCA, 14812-1, C34, 88787-8, CMP, 1988-5, ENAP, 46568-8, 24956-5, 09684-5, 5130-0, 22107-1 #### [facility] ([id number]) [address], [address] [place] [address] #### 44090-3, NAIFA #### [facility] ([id number]) [address] [place] [address] R.B.CELLS 3 /hpf Normal 0-5 [facility] Comment on above: Performed By: #### C MAHIN, 27545-1, C34, 25235-4, CMP, 1987-5, ENAP, 01418-3, 60771-9, 43340-2, 5130-0, 33792-8 #### [facility] ([id number]) [address], [address] [place] [id number] #### 65223-0, NAIFA #### [facility] ([id number]) [address] [place] [address] 38442 Specific gravity (U) [Rel density] 1.022 Normal 1.003-1.035 [facility] Comment on above: Performed By: #### C MAHIN, 15285-2, C34, 67789-3, CMP, 1987-07, ENAP, 75730-8, 94385-3, 23077-2, 5130-0, 56178-2 #### [facility] ([id number]) [address], [address] [place] [address] #### 73939-0, NAIFA #### [facility] ([id number]) [address] [place] [address] 20035 SQUAMOUS EPITHELIUM <1 Normal 0-5 [facility] Comment on above: Performed By: #### C MAHIN, 51891-3, C34, 63316-3, CMP, 1987-07, ENAP, 22769-7, 70583-8, 68798-8, 5130-0, 10114-9 #### [facility] ([id number]) [address], [address] [place] [address] #### 83153-5, NAIFA #### [facility] ([id number]) [address] [place] [address] 46847 TURBIDITY HAZY Abnormal CLEAR [facility] Comment on above: Performed By: #### C BCA, 51591-0, C34, 09965-5, CMP, 1987-5, ENAP, 78485-1, 66771-4, 08344-6, 5130-0, 76439-7 #### [facility] ([id number]) [address], [address] [place] [address] #### 72339-5, NAIFA #### [facility] ([id number]) [address] [place] [address] 48612 Urobilinogen (U) [Mass/Vol] mg/dL Normal <1.1 [facility] Comment on above: Performed By: #### C BCA, 21438-1, C34, 57181-2, CMP, 1987-5, ENAP, 58795-9, 90958-0, 43961-1, 5130-0, 78189-8 #### [facility] ([id number]) [address], [address] [place] [address] #### 97649-2, NAIFA #### [facility] ([id number]) [address] [place] [address] 43322 W.B.CELLS 4 /hpf Normal 0-5 [facility] Comment on above: Performed By: #### C BCA, 40980-1, C34, 55715-6, CMP, 1987-5, ENAP, 56708-0, 38762-2, 37089-8, 5130-0, 99309-1 #### [facility] ([id number]) [address], [address] [place] [address] #### 84123-3, NAIFA #### [facility] ([id number]) [address] [place] [address] 75089 URINE CULTUREon 07-12-2023 Bacteria identified Cx Nom (U) CULTURE RESULTS <10,000 ORGANISMS/ML NORMAL URO GENITAL SOWMYA Normal [facility] Comment on above: Performed By: #### C BCA, 48745-1, C34, 49842-2, CMP, 1988-5, ENAP, 28290-9, 79128-6, 63581-5, 5130-0, 60200-6 #### [facility] ([id number]) [address] [facility], [address] [place] [address] #### 13551-1, NAIFA #### [facility] ([id number]) [address] [facility], [place] [address] 36on 07-04-2023 36 Appt moved to 07/22 [facility] 36 Patient requesting call back to schedule sooner appointment for left knee Normal [facility] HGB A1C (GLYCO-HGB)on 2023 Glucose [Mass/Vol] 126 mg/dL Normal [facility] HbA1c (Bld) [Mass fraction] 6.0 % High 4.4-5.6 [facility] Comment on above: Result Comment: NOTE ADA Guidelines Result HgbA1c Normal : less than 5.7 % Prediabetes : 5.7 % to 6.4 % Diabetes : > 6.4 % Use with caution in patients with abnormal hemoglobin variants as the half-life of red blood cells and in vivo glycation rates are affected. CT ABDOMEN AND PELVIS WO CON Ton 05-02-2023 CT ABDOMEN AND PELVIS WO CONT CT ABDOMEN AND PELVIS WO CONT CLINICAL INFORMATION: Acute cystitis without hematuria. TECHNIQUE: CT Abdomen and Pelvis without intravenous contrast. All CT scans at this facility use dose modulation, iterative reconstruction, and/or weight based dosing when appropriate to reduce radiation dose to as low as reasonably achievable. COMPARISON: CT abdomen pelvis 08/03/2020 FINDINGS: Redemonstrated is the pleural-based right lower lobe mass that currently measures 3.1 x 2.6 cm given its long-term stability this is favored to represent benign process. There is minimal right lung basal atelectasis/scarring unchanged from prior exam. Otherwise lung bases are unremarkable. There are gastric surgical changes with no gross soft tissue abnormality at the surgical. There is moderate hepatic steatosis. The hypervascular right hepatic lobe observation present on the prior exam is noted identified likely due to lack of IV dye. Otherwise evaluation of the liver is limited by lack of IV dye. Spleen and pancreas are grossly unremarkable. There is stable 1.3 cm left adrenal soft tissue nodule likely adenoma. Both kidneys are unremarkable with adequate and similar texture. There is no coarse dense renal stones, no hydronephrosis, renal swelling or perinephric stranding. There are few calcification along the gonadal vein especially on the right side of no pathological sequelae. Urinary bladder is partially decompressed grossly unremarkable. There are surgical changes of hysterectomy. There is no gross pathological mesenteric or retroperitoneal lymphadenopathy. Bowel loops are grossly unremarkable. There are moderate degenerative changes at L4-L5 and L5-S1 IMPRESSION: * Urinary bladder is partially decompressed and otherwise grossly unremarkable. Both kidneys are grossly unremarkable. * There is moderate hepatic steatosis. The previously identified 1.5 cm enhancing right hepatic lobe observation is not assessed in today's study given lack of IV dye. * Right lung lower lobe pleural-based 3.1 cm mass is stable likely benign process. Finalized by Katia Braun MD on 05/02/2023 5:[address] [facility] URINALYSISon 04-30-2023 Bilirubin Ql (U) Negative Normal NEG [facility] BLOOD/HGB Negative Normal NEG [facility] CA OXALATE CRYSTALS PRESENT Abnormal NONE [facility] Color (U) YELLOW Normal YELLOW [facility] Glucose Ql (U) Negative Normal NEG [facility] Ketones Ql (U) Negative Normal NEG [facility] Leukocyte esterase Test strip Ql (U) Small Abnormal NEG [facility] MUCOUS PRESENT Abnormal NONE [facility] Nitrite Ql (U) Negative Normal NEG [facility] pH (U) 6.5 [pH] Normal 5.0-8.5 [facility] Protein Ql (U) 50 mg/dL Abnormal NEG [facility] R.B.CELLS 5 /hpf Normal 0-5 [facility] Specific gravity (U) [Rel density] 1.023 Normal 1.003-1.035 [facility] SQUAMOUS EPITHELIUM 2 /hpf Normal 0-5 [facility] TURBIDITY CLOUDY Abnormal CLEAR [facility] Urobilinogen Qn (U) 3 {Aman'U}/dL High <1.1 [facility] W.B.CELLS 0 /hpf Normal 0-5 [facility] URINE CULTUREon 04-30-2023 Bacteria identified Cx Nom (U) CULTURE RESULTS <10,000 ORGANISMS/ML NORMAL URO GENITAL SOWMYA Normal [facility] Comment on above: Performed By: #### C BCA, 01879-1, C34, 16353-1, CMP, 1987-5, ENAP, 59742-8, 09453-3, 33558-7, 5130-0, 19804-9 #### [facility] ([id number]) [address] [place] [address], [address] [place] [address] #### 10590-9, NAIFA #### [facility] ([id number]) [address] [place] [address], [place] [address] Bacteria identified Cx Nom ( U)on 04-07-2023 Service comment (Unsp spec) [Interp] 10-50,000 ORGANISMS/mL NORMAL UROGENITAL SOWMYA [facility] URINALYSISon 04-06-2023 Bilirubin Ql (U) Negative Normal NEG [facility] BLOOD/HGB Negative Normal NEG [facility] Color (U) YELLOW Normal YELLOW [facility] Glucose Ql (U) Negative Normal NEG [facility] Hyaline casts LM Ql (Urine sed) 5 /lpf High 0-2 [facility] Ketones Ql (U) Negative Normal NEG [facility] Leukocyte esterase Test strip Ql (U) Negative Normal NEG [facility] MUCOUS PRESENT Abnormal NONE [facility] Nitrite Ql (U) Negative Normal NEG [facility] pH (U) 6.5 [pH] Normal 5.0-8.5 [facility] Protein Ql (U) 30 mg/dL Abnormal NEG [facility] R.B.CELLS 1 /hpf Normal 0-5 [facility] Specific gravity (U) [Rel density] 1.020 Normal 1.003-1.035 [facility] SQUAMOUS EPITHELIUM 3 /hpf Normal 0-5 [facility] TURBIDITY CLEAR Normal CLEAR [facility] Urobilinogen (U) [Mass/Vol] mg/dL Normal <1.1 [facility] W.B.CELLS 2 /hpf Normal 0-5 [facility] URINE CULTUREon 04-06-2023 Bacteria identified Cx Nom (U) CULTURE RESULTS 10-50,000 ORGANISMS/mL NORMAL UROGENITAL SOWMYA Normal [facility] Comment on above: Performed By: #### C BCA, 37873-0, C34, 27678-9, CMP, 1988-5, ENAP, 85523-4, 12786-8, 90578-0, 5130-0, 08280-5 #### [facility] ([id number]) [address] [facility], [address] [place] [address] #### 73983-1, NAIFA #### [facility] ([id number]) [address] [place] [address], [place] [address] Urinalysis (clean catch)on 0 04-06-2023 Bilirubin Ql (U) Negative Negative^Ne g ative [facility] Color (U) YELLOW YELLOW^YELLO W [facility] Epithelial cells Auto (Urine sed) [#/Area] 3 [facility] Glucose (U) [Mass/Vol] Negative Negative^Neg ative mg/dL [facility] Hemoglobin Auto test strip Ql (U) Negative Negative^Neg ative [facility] Hyaline casts (Urine sed) [#/Area] 5 /[LPF] High [facility] Interpretation and review of laboratory results Abnormal [facility] Ketones (U) [Mass/Vol] Negative Negative^Neg ative mg/dL [facility] Leukocyte esterase Auto test strip Ql (U) Negative Negative^Neg ative [facility] Mucus Ql (Urine sed) PRESENT Abnormal NONE^NONE [facility] Nitrite Auto test strip Ql (U) Negative Negative^Neg ative [facility] pH (U) 6.5 [pH] 5.0 - 8.5 [facility] Protein (U) [Mass/Vol] 30 mg/dL Abnormal Negative^Neg ative [facility] RBC Auto (Urine sed) [#/Area] 1 [facility] Specific gravity Refractometry automated (U) [Rel density] 1.020 1.003 - 1.035 [facility] Turbidity Ql (U) CLEAR CLEAR^CLEAR [facility] Urobilinogen Qn (U) NINF [facility] WBC Auto (Urine sed) [#/Area] 2 [facility] XR CHEST 2 VWSon 04-06-2023 XR CHEST 2 VWS XR CHEST 2 VWS History: Chest discomfort Exam/Technique: PA and lateral chest Comparison: 08/03/2020 Findings: There is no evidence of active pulmonary or pleural disease. Cardiac and mediastinal contours are within normal limits. IMPRESSION: No evidence of active pulmonary disease demonstrated. Finalized by Bin Vaughan MD on 04/06/2023 3:[address] [facility] XR Chest PA and Lateralon History: Chest discomfort Exam/Technique: PA and lateral chest Comparison: 08/03/2020 Findings: There is no evidence of active pulmonary or pleural disease. Cardiac and mediastinal contours are within normal limits. IMPRESSION: No evidence of active pulmonary disease demonstrated. Finalized by Bin Vaughan MD on 04/06/2023 3:00 PM Bin Harris MD - 04/06/2023 History: Chest discomfort Exam/Technique: PA and lateral chest Comparison: 08/03/2020 Findings: There is no evidence of active pulmonary or pleural disease. Cardiac and mediastinal contours are within normal limits. IMPRESSION: No evidence of active pulmonary disease demonstrated. Finalized by Bin Vaughan MD on 04/06/2023 3:00 PM [facility] Radiology Study observation (narrative) [facility] XR Chest PA and LateralOrder ed By: Bin Vaughan on 04-06-2023 [facility] Work Phone: Antinuclear AB, HE-p Freda rory, (JACQUIE by IFA)on 03-01-2023 JACQUIE Pattern: Homogeneous Normal [facility] Comment on above: Result Comment: NOTE Test Performed by: [facility] [address] [place] [address] [employer] Operator: Albert Berry M.D. Ph.D.; CLIA# [id number] Performed By: #### C BCA, 79924-6, C34, 19617-1, CMP, 1988-5, ENAP, 70515-7, 26946-1, 92302-4, 5130-0, 22327-2 #### [facility] ([id number]) [address] [place] [address], [address] [place] [address] #### 59907-0, NAIFA #### [facility] ([id number]) [address] [place] [address] JACQUIE Titer: 1:[address] [facility] Comment on above: Performed By: #### C BCA, 96811-9, C34, 37272-9, CMP, 1987-5, ENAP, 49609-0, 68903-2, 81312-5, 5130-0, 34332-5 #### [facility] ([id number]) [address] [facility], [address] [place] [address] #### 40281-1, NAIFA #### [facility] ([id number]) [address] [place] [address] 05140 Antinuclear Ab, HEp-2 Substrate, S Positive Abnormal <1:80 (Negative) [facility] Comment on above: Result Comment: NOTE ADDITIONAL INFORMATION Method: Immunofluorescence using HEp-2 cellular substrate. Performed By: #### C BCA, 33125-5, C34, 88017-2, CMP, 1987-5, ENAP, 63387-5, 67531-0, 39068-3, 5130-0, 99660-9 #### [facility] ([id number]) [address] [facility], [address] [place] [address] #### 03468-2, NAIFA #### [facility] ([id number]) [address] [place] [address] 70668 CBC AND AUTO DIFFon 03-01-20 Erythrocyte distribution width (RBC) [Ratio] 14.3 % Normal 11.5-15.0 [facility] Comment on above: Performed By: #### C BCA, 41515-1, C34, 82518-8, CMP, 1987-5, ENAP, 00135-9, 24543-3, 83595-7, 5130-0, 45035-0 #### [facility] ([id number]) [address] [facility], [address] [place] [address] #### 65753-3, NAIFA #### [facility] ([id number]) [address] [place] [address] 62116 Hematocrit (Bld) [Volume fraction] 38.6 % Normal 35-47 [facility] Comment on above: Performed By: #### C BCA, 65469-8, C34, 68117-0, CMP, 1987-, ENAP, 11487-0, 03653-1, 09530-5, 5130-0, 34084-8 #### [facility] ([id number]) [address] [facility], [address] [place] [address] #### 82370-0, NAIFA #### [facility] ([id number]) [address] [place] [address] 83931 Hemoglobin (Bld) [Mass/Vol] 12.8 g/dL Normal 11.7-15.5 [facility] Comment on above: Performed By: #### C BCA, 01945-3, C34, 65186-6, CMP, 1987-5, ENAP, 64716-7, 66427-2, 46122-2, 5130-0, 41168-2 #### [facility] ([id number]) [address], [address] [place] [address] #### 20756-7, NAIFA #### [facility] ([id number]) [address] [place] [address] 35973 Lymphocytes (Bld) [#/Vol] 1.0 10*3/uL Normal 1.0-3.5 [facility] Comment on above: Performed By: #### C BCA, 19271-5, C34, 88198-4, CMP, 1987-07, ENAP, 63792-4, 97736-5, 03644-5, 5130-0, 87788-8 #### [facility] ([id number]) [address], [address] [place] [address] #### 57979-1, NAIFA #### [facility] ([id number]) [address] [place] [address] 25872 Lymphocytes/100 WBC (Bld) 37.0 % Normal [facility] Comment on above: Performed By: #### C BCA, 63377-4, C34, 34012-0, CMP, 1987-, ENAP, 69208-0, 12825-0, 10981-5, 5130-0, 46893-8 #### [facility] ([id number]) [address], [address] [place] [address] #### 35478-3, NAIFA #### [facility] ([id number]) [address] [place] [address] MCH (RBC) [Entitic mass] 31.0 pg Normal 27-34 [facility] Comment on above: Performed By: #### C BCA, 37335-3, C34, 20411-9, CMP, 1987-5, ENAP, 99627-6, 96264-4, 60774-0, 5130-0, 49091-8 #### [facility] ([id number]) [address], [address] [place] [id number] #### 08155-5, NAIFA #### [facility] ([id number]) [address] [place] [address] 85168 MCHC (RBC) [Mass/Vol] 33.1 g/dL Normal 32-36 [facility] Comment on above: Performed By: #### C BCA, 56223-2, C34, 84031-7, CMP, 1987-07, ENAP, 09283-7, 99555-2, 89326-5, 5130-0, 01560-0 #### [facility] ([id number]) [address], [address] [place] [id number] #### 84996-0, NAIFA #### [facility] ([id number]) [address] [place] [address] 19375 MCV (RBC) [Entitic vol] 94 fL Normal 80-100 [facility] Comment on above: Performed By: #### C BCA, 39460-2, C34, 00171-3, CMP, 1987-, ENAP, 04978-3, 36660-2, 47894-8, 5130-0, 82867-0 #### [facility] ([id number]) [address], [address] [place] [address] #### 48314-1, NAIFA #### [facility] ([id number]) [address] [place] [address] 42983 Monocytes (Bld) [#/Vol] 0.3 10*3/uL Normal 0-0.9 [facility] Comment on above: Performed By: #### C BCA, 56681-7, C34, 28440-2, CMP, 1988-5, ENAP, 07247-9, 09746-0, 81568-3, 5130-0, 66848-0 #### [facility] ([id number]) [address], [address] [place] [address] #### 15247-7, NAIFA #### [facility] ([id number]) [address] [place] [address] 59494 Monocytes/100 WBC (Bld) 10.0 % Normal [facility] Comment on above: Performed By: #### C BCA, 83498-9, C34, 19225-7, CMP, 1987-5, ENAP, 32674-8, 53476-6, 01769-1, 5130-0, 14449-4 #### [facility] ([id number]) [address] [facility], [address] [place] [address] #### 10443-8, NAIFA #### [facility] ([id number]) [address] [place] [address] 05710 Neutrophils (Bld) [#/Vol] 1.3 10*3/uL Low 1.5-6.6 [facility] Comment on above: Performed By: #### C BCA, 12697-0, C34, 66638-6, CMP, 1987-5, ENAP, 63170-6, 86500-4, 81522-4, 5130-0, 01399-8 #### [facility] ([id number]) [address], [address] [place] [address] #### 36076-0, NAIFA #### [facility] ([id number]) [address] [place] [address] 32930 Platelet mean volume (Bld) [Entitic vol] 7.1 fL Normal 7-12 [facility] Comment on above: Performed By: #### C BCA, 69617-9, C34, 60330-1, CMP, 1987-5, ENAP, 03589-4, 01904-2, 19488-3, 5130-0, 87854-3 #### [facility] ([id number]) [address], [address] [place] [address] #### 37875-1, NAIFA #### [facility] ([id number]) [address] [place] [address] 40521 Platelets (Bld) [#/Vol] 402 10*3/uL Normal 150-450 [facility] Comment on above: Performed By: #### C BCA, 94788-4, C34, 32833-0, CMP, 1987-, ENAP, 81799-0, 53202-8, 92389-7, 5130-0, 21284-1 #### [facility] ([id number]) [address], [address] [place] [address] #### 72319-0, NAIFA #### [facility] ([id number]) [address] [place] [address] 77444 RBC COUNT 4.12 X10E12/L Normal 3.80-5.20 [facility] Comment on above: Performed By: #### C BCA, 46855-6, C34, 06792-6, CMP, 1987-5, ENAP, 46199-5, 72792-5, 36699-5, 5130-0, 53343-9 #### [facility] ([id number]) [address], [address] [place] [address] #### 65060-4, NAIFA #### [facility] ([id number]) [address] [place] [address] 25207 RBC morphology finding Nom (Bld) NORMAL Normal [facility] Comment on above: Performed By: #### C BCA, 87281-5, C34, 96351-2, CMP, 1988-5, ENAP, 09380-4, 23251-1, 96191-2, 5130-0, 62358-5 #### [facility] ([id number]) [address], [address] [place] [address] #### 17553-1, NAIFA #### [facility] ([id number]) [address] [place] [address] 44936 SEG NEUTROPHIL 53.0 % Normal [facility] Comment on above: Performed By: #### C BCA, 53358-7, C34, 99277-8, CMP, 1987-5, ENAP, 70737-7, 00841-0, 26533-2, 5130-0, 43924-2 #### [facility] ([id number]) [address], [address] [place] [address] #### 16285-5, NAIFA #### [facility] ([id number]) [address] [place] [address] 13151 WBC (Bld) [#/Vol] 2.6 10*3/uL Low 4.0-11.0 [facility] Comment on above: Performed By: #### C BCA, 16928-5, C34, 86593-8, CMP, 1987-5, ENAP, 48381-7, 53034-3, 81157-7, 5130-0, 74147-3 #### [facility] ([id number]) [address], [address] [place] [address] #### 60174-7, NAIFA #### [facility] ([id number]) [address] [place] [address] 32634 CCL GENERIC ORDERon 03-01-20 23 TEST NAME DALIA DSDNA ANTIBODY BY CRITHIDIA IFA Normal [facility] Comment on above: Performed By: #### C BCA, 81070-0, C34, 27169-9, CMP, 1987-, ENAP, 59783-8, 80224-4, 32077-6, 5130-0, 05982-8 #### [facility] ([id number]) [address] [facility], [address] [place] [address] #### 17941-6, NAIFA #### [facility] ([id number]) [address] [place] [address] 21034 TEST RESULT See Below Normal [facility] Comment on above: Result Comment: NOTE TEST RESULT FLAG UNIT REF.RANGE --- Crithidia lucillae Positive A Negative Crithidia luciliae assay is used as an aid in diagnosis of systemic lupus erythematosus (SLE). A negative result cannot rule out SLE. Low positive titers may be seen with other systemic autoimmune diseases. Clinical correlation is required. DSDNA ANTIBODY BY CRITHIDIA IFA Test Performed By: [place] [address] Touring Production Manager: Matthew Joaquin III #[id number] Performed By: #### C BCA, 03601-0, C34, 22322-7, CMP, 1987-, ENAP, 72666-4, 62233-1, 25783-6, 5130-0, 25281-7 #### [facility] ([id number]) [address] [facility], [address] [place] [address] #### 26672-1, NAIFA #### [facility] ([id number]) [address] [place] [address] 83027 COMPLEMENT PROFILEon 023 COMPLEMENT C3 120 mg/dL Normal 86-184 [facility] Comment on above: Performed By: #### C BCA, 86722-5, C34, 06487-9, CMP, 1988-5, ENAP, 48719-2, 24938-2, 76856-4, 5130-0, 58742-3 #### [facility] ([id number]) [address], [address] [place] [address] #### 76776-5, NAIFA #### [facility] ([id number]) [address] [place] [address] 17900 COMPLEMENT C4 13 mg/dL Low 16-47 [facility] Comment on above: Performed By: #### C BCA, 10515-6, C34, 75360-0, CMP, 1987-5, ENAP, 60123-4, 92972-7, 87125-2, 5130-0, 53875-2 #### [facility] ([id number]) [address] [facility], [address] [place] [address] #### 37431-7, NAIFA #### [facility] ([id number]) [address] [place] [address] 26485 COMPREHENSIVE METABOLIC PANE [facility] 03-01-2023 Albumin [Mass/Vol] 3.9 g/dL Normal 3.2-5.3 [facility] Comment on above: Performed By: #### C BCA, 47973-9, C34, 67280-9, CMP, 1987-5, ENAP, 45661-1, 13216-6, 69113-7, 5130-0, 63476-9 #### [facility] ([id number]) [address], [address] [place] [address] #### 40852-3, NAIFA #### [facility] ([id number]) [address] [place] [address] 67173 ALP [Catalytic activity/Vol] 86 U/L Normal 39-130 [facility] Comment on above: Performed By: #### C BCA, 62754-2, C34, 01895-9, CMP, 1988-5, ENAP, 47712-6, 46853-3, 62443-8, 5130-0, 81172-7 #### [facility] ([id number]) [address], [address] [place] [address] #### 38640-1, NAIFA #### [facility] ([id number]) [address] [place] [address] 11263 ALT [Catalytic activity/Vol] 13 U/L Normal 0-31 [facility] Comment on above: Performed By: #### C BCA, 70040-5, C34, 35825-8, CMP, 1987-5, ENAP, 27057-0, 46037-4, 74351-9, 5130-0, 70117-9 #### [facility] ([id number]) [address], [address] [place] [address] #### 30857-8, NAIFA #### [facility] ([id number]) [address] [place] [address] 01961 Anion gap [Moles/Vol] 11 mmol/L Normal 5-15 [facility] Comment on above: Performed By: #### C BCA, 95251-3, C34, 51845-8, CMP, 1988-5, ENAP, 64866-4, 41892-6, 18990-8, 5130-0, 96698-1 #### [facility] ([id number]) [address], [address] [place] [address] #### 87393-9, NAIFA #### [facility] ([id number]) [address] [place] [address] 78329 AST [Catalytic activity/Vol] 18 U/L Normal 0-41 [facility] Comment on above: Performed By: #### C BCA, 62218-2, C34, 69588-2, CMP, 1987-5, ENAP, 00571-0, 61745-2, 75645-2, 5130-0, 50872-8 #### [facility] ([id number]) [address], [address] [place] [address] #### 00677-5, NAIFA #### [facility] ([id number]) [address] [place] [address] 11580 Bilirubin [Mass/Vol] 0.5 mg/dL Normal 0.3-1.2 [facility] Comment on above: Performed By: #### C BCA, 42843-2, C34, 98820-2, CMP, 1987-5, ENAP, 37937-0, 34110-3, 49930-5, 5130-0, 59357-0 #### [facility] ([id number]) [address], [address] [place] [address] #### 92681-1, NAIFA #### [facility] ([id number]) [address] [place] [address] 39772 Calcium [Mass/Vol] 8.7 mg/dL Normal 8.5-10.5 [facility] Comment on above: Performed By: #### C BCA, 94075-1, C34, 25895-8, CMP, 1987-5, ENAP, 09907-6, 24149-4, 29586-8, 5130-0, 27213-3 #### [facility] ([id number]) [address], [address] [place] [address] #### 74280-2, NAIFA #### [facility] ([id number]) [address] [place] [address] 55804 Chloride [Moles/Vol] 106 mmol/L Normal 98-109 [facility] Comment on above: Performed By: #### C BCA, 36606-7, C34, 10409-8, CMP, 1987-5, ENAP, 80917-5, 87950-3, 92427-1, 5130-0, 93328-9 #### [facility] ([id number]) [address] [facility], [address] [place] [address] #### 83473-6, NAIFA #### [facility] ([id number]) [address] [place] [address] 97232 CO2 [Moles/Vol] 25 mmol/L Normal 22-32 [facility] Comment on above: Performed By: #### C BCA, 64158-8, C34, 81352-8, CMP, 1987-07, ENAP, 76328-1, 24978-0, 95923-5, 5130-0, 11314-5 #### [facility] ([id number]) [address] [facility], [address] [place] [address] #### 72197-8, NAIFA #### [facility] ([id number]) [address] [place] [address] 01479 Creatinine [Mass/Vol] 0.65 mg/dL Normal 0.40-1.00 [facility] Comment on above: Result Comment: METH OD TRACEABLE TO IDMS STANDARD Performed By: #### C BCA, 81857-5, C34, 69628-1, CMP, 1987-, ENAP, 58424-4, 49934-5, 50648-1, 5130-0, 24258-8 #### [facility] ([id number]) [address] [facility], [address] [place] [address] #### 74423-2, NAIFA #### [facility] ([id number]) [address] [place] [address] 61080 eGFR (CKD-EPI) NON-RACE DEPENDENT >90 Normal >59 [facility] Comment on above: Result Comment: Reported eGFR is based on the CKD-EPI 2020 equation that does not use a race coefficient. Performed By: #### C BCA, 53467-7, C34, 28591-6, CMP, 1987-5, ENAP, 79582-1, 33682-5, 93578-0, 5130-0, 16324-7 #### [facility] ([id number]) [address], [address] [place] [address] #### 56747-9, NAIFA #### [facility] ([id number]) [address] [place] [address] 54091 Glucose [Mass/Vol] 102 mg/dL High 65-99 [facility] Comment on above: Performed By: #### C BCA, 96766-3, C34, 89744-8, CMP, 1987-5, ENAP, 66334-3, 43109-5, 95709-9, 5130-0, 61400-0 #### [facility] ([id number]) [address], [address] [place] [address] #### 04733-6, NAIFA #### [facility] ([id number]) [address] [place] [address] 42951 Potassium [Moles/Vol] 3.8 mmol/L Normal 3.5-5.0 [facility] Comment on above: Performed By: #### C BCA, 74785-0, C34, 84514-4, CMP, 1987-5, ENAP, 11545-6, 78799-7, 66513-0, 5130-0, 24622-1 #### [facility] ([id number]) [address], [address] [place] [address] #### 28114-6, NAIFA #### [facility] ([id number]) [address] [place] [address] 44928 Protein [Mass/Vol] 7.6 g/dL Normal 6.0-8.0 [facility] Comment on above: Performed By: #### C BCA, 28666-2, C34, 49696-6, CMP, 1988-5, ENAP, 17501-7, 27237-1, 08531-9, 5130-0, 18146-2 #### [facility] ([id number]) [address], [address] [place] [address] #### 52142-9, NAIFA #### [facility] ([id number]) [address] [place] [address] 08923 Sodium [Moles/Vol] 142 mmol/L Normal 134-146 [facility] Comment on above: Performed By: #### C BCA, 56556-3, C34, 77647-2, CMP, 1988-5, ENAP, 30636-0, 67345-4, 93737-5, 5130-0, 97242-2 #### [facility] ([id number]) [address], [address] [place] [address] #### 30615-3, NAIFA #### [facility] ([id number]) [address] [place] [address] 55853 Urea nitrogen [Mass/Vol] 6 mg/dL Normal 5-23 [facility] Comment on above: Performed By: #### C BCA, 30050-5, C34, 61226-9, CMP, 1988-5, ENAP, 27594-7, 87908-7, 78185-7, 5130-0, 50496-2 #### [facility] ([id number]) [address], [address] [place] [address] #### 35742-8, NAIFA #### [facility] ([id number]) [address] [place] [address] 64858 CRP [Mass/Vol]on 03-01-2023 C REACTIVE PROTEIN 0.9 mg/dL High 0.000-0.744 [facility] Comment on above: Performed By: #### C BCA, 72069-7, C34, 55983-3, CMP, 1987-07, ENAP, 48344-7, 82525-3, 31693-5, 5130-0, 04232-3 #### [facility] ([id number]) [address], [address] [place] [address] #### 87685-3, NAIFA #### [facility] ([id number]) [address] [place] [address] 33288 Chromatin Ab Qlon 03-01-2023 CHROMATIN AB IGG 5.3 AI High <1.0 [facility] Comment on above: Performed By: #### C BCA, 30171-1, C34, 41125-0, CMP, 1987-07, ENAP, 70930-0, 24283-1, 88828-6, 5130-0, 70206-4 #### [facility] ([id number]) [address], [address] [place] [address] #### 21122-5, NAIFA #### [facility] ([id number]) [address] [place] [address] 60407 DNA double strand Ab Qn (S)o n 03-01-2023 DOUBLE STRANDED DNA 15 IU/ML High <5 [facility] Comment on above: Result Comment: Interpretation-------- <5 Negative 5-9 Indeterminate >9 Positive Performed By: #### C BCA, 81412-6, C34, 77972-9, CMP, 1987-5, ENAP, 35627-1, 20645-3, 08195-5, 5130-0, 38119-9 #### [facility] ([id number]) [address] [place] [address], [address] [place] [address] #### 65231-7, NAIFA #### [facility] ([id number]) [address] [place] [address] 05388 MARCELA PANELon 03-01-2023 ANTI-ARMSTRONG AB IGG 0.2 AI Normal <1.0 [facility] Comment on above: Performed By: #### C BCA, 77260-6, C34, 95398-5, CMP, 1987-, ENAP, 22743-0, 25712-4, 91684-9, 5130-0, 95510-6 #### [facility] ([id number]) [address] [place] [address], [address] [place] [address] #### 03458-0, NAIFA #### [facility] ([id number]) [address] [place] [address] 07200 JO1 ANTIBODY <0.2 Normal <1.0 [facility] Comment on above: Performed By: #### C BCA, 09820-2, C34, 54590-5, CMP, 1987-07, ENAP, 03670-7, 74888-0, 49826-2, 5130-0, 31773-7 #### [facility] ([id number]) [address] [place] [address], [address] [place] [address] #### 56109-3, NAIFA #### [facility] ([id number]) [address] [place] [address] 22054 CAD DETAILER ANTIBODY IGG 0.3 AI Normal <1.0 [facility] Comment on above: Performed By: #### C BCA, 77787-1, C34, 66027-5, CMP, 1987-5, ENAP, 23224-7, 31469-1, 45654-7, 5130-0, 71540-4 #### [facility] ([id number]) [address], [address] [place] [address] #### 83729-5, NAIFA #### [facility] ([id number]) [address] [place] [address] 13370 SCL 70 ANTIBODY <0.2 Normal <1.0 [facility] Comment on above: Performed By: #### C BCA, 31699-5, C34, 28807-2, CMP, 1987-, ENAP, 63640-3, 06239-0, 55757-2, 5130-0, 65840-3 #### [facility] ([id number]) [address] [facility], [address] [place] [address] #### 62770-6, NAIFA #### [facility] ([id number]) [address] [place] [address] 14955 SSA ANTIBODY 3.4 AI High <1.0 [facility] Comment on above: Performed By: #### C BCA, 42193-9, C34, 45617-9, CMP, 1987-, ENAP, 09291-9, 14560-0, 00842-7, 5130-0, 12779-0 #### [facility] ([id number]) [address], [address] [place] [address] #### 73213-7, NAIFA #### [facility] ([id number]) [address] [place] [address] 40734 SSB ANTIBODY <0.2 Normal <1.0 [facility] Comment on above: Performed By: #### C BCA, 65790-5, C34, 46568-5, CMP, 1987-, ENAP, 20838-0, 07887-1, 36496-8, 5130-0, 31348-5 #### [facility] ([id number]) [address], [address] [place] [address] #### 55595-2, NAIFA #### [facility] ([id number]) [address] [place] [address] ESR Photometric method (Bld) [Velocity]on 03-01-2023 ESR, ERYTHROCYTE SEDIMENTATION RATE 59 mm/h High 0-20 [facility] Comment on above: Performed By: #### C BCA, 01183-1, C34, 15169-7, CMP, 1988-5, ENAP, 95728-7, 12973-0, 51690-3, 5130-0, 27286-2 #### [facility] ([id number]) [address], [address] [place] [address] #### 18227-4, NAIFA #### [facility] ([id number]) [address] [place] [address] 05842 G6PD (RBC) [Catalytic activi ty/Mass]on 03-01-2023 G6PD See Below Normal [facility] Comment on above: Result Comment: NOTE TEST RESULT FLAG UNIT REF.RANGE --- G-6-PD Quantitative 15.1 U/g Hb 9.8-15.5 This test was developed and its performance characteristics determined by [facility]'s [facility] [place] ([facility] It has not been cleared or approved by the FDA. [facility] is regulated under CLIA as qualified to perform high-complexity testing. This test is used for clinical purposes. It should not be regarded as investigational or for research. Test Performed By: [facility] [employer] [address] [place] [address] Touring Production Manager: Matthew Joaquin IIIIA #[id number] Performed By: #### C BCA, 78347-1, C34, 32838-9, CMP, 1987-07, ENAP, 25780-7, 72080-0, 83899-3, 5130-0, 15341-5 #### [facility] ([id number]) [address] [facility], [address] [place] [address] #### 74147-8, NAIFA #### [facility] ([id number]) [address] [place] [address] 96220 HGB A1C (GLYCO-HGB)on 2022 Glucose [Mass/Vol] 131 mg/dL Normal [facility] Comment on above: Performed By: #### C BCA, 42393-7, C34, 70072-2, CMP, 1987-07, ENAP, 84146-3, 11294-2, 94851-3, 5130-0, 09013-7 #### [facility] ([id number]) [address] [facility], [address] [place] [address] #### 72220-4, NAIFA #### [facility] ([id number]) [address] [place] [address] 57362 HbA1c (Bld) [Mass fraction] 6.2 % High 4.4-5.6 [facility] Comment on above: Result Comment: NOTE ADA Guidelines Result HgbA1c Normal : less than 5.7 % Prediabetes : 5.7 % to 6.4 % Diabetes : > 6.4 % Use with caution in patients with abnormal hemoglobin variants as the half-life of red blood cells and in vivo glycation rates are affected. Performed By: #### C BCA, 55468-7, C34, 74155-6, CMP, 1987-07, ENAP, 10657-9, 10417-0, 55189-8, 5130-0, 18220-2 #### [facility] ([id number]) [address] [facility], [address] [place] [address] #### 96697-4, NAIFA #### [facility] ([id number]) [address] [place] [address] 30020 Laboratory comment Maxwell (Repo rt)on 03-01-2023 UNLISTED LAB TEST Sent to reference lab Normal [facility] Comment on above: Performed By: #### C BCA, 19548-2, C34, 29327-1, CMP, 1987-, ENAP, 06377-2, 18851-7, 13821-5, 5130-0, 30282-7 #### [facility] ([id number]) [address] [facility], [address] [place] [address] #### 81907-8, NAIFA #### [facility] ([id number]) [address] [place] [address] 59245 Nuclear Ab IA Ql (S)on 03-01 JACQUIE Screen w/reflex Positive Abnormal NEG [facility] Comment on above: Result Comment: Testing performed using multiplex flow immunoassay. Eleven different antigens associated with systemic autoimmune diseases (dsDNA,Sm,Sm/CAD DETAILER,CAD DETAILER,Chromatin, SSA,SSB,Sulma-1,Scl70,Ribo P,Centromere B) are included in this screening test. Performed By: #### C BCA, 40395-0, C34, 92094-6, CMP, 1987-5, ENAP, 85593-2, 88939-8, 08533-7, 5130-0, 68223-3 #### [facility] ([id number]) [address], [address] [place] [id number] #### 99096-7, NAIFA #### [facility] ([id number]) [address] [place] [address] Rheumatoid factor Nephelomet ry Qn (S)on 03-01-2023 RHEUMATOID FACTOR <10 Normal <20 [facility] Comment on above: Performed By: #### C BCA, 85157-9, C34, 93822-5, CMP, 1988-5, ENAP, 61063-8, 81977-8, 15582-1, 5130-0, 60460-5 #### [facility] ([id number]) [address] [place] [address], [address] [place] [address] #### 52509-5, NAIFA #### [facility] ([id number]) [address] [place] [address], [place] [address] Armstrong extractable nuclear Ab +Ribonucleoprotein extractable nuclear IgG Qn (S)on 03-01-2023 ARMSTRONG/CAD DETAILER AB IGG <0.2 Normal <1.0 [facility] Comment on above: Performed By: #### C BCA, 60543-3, C34, 56326-2, CMP, 1987-, ENAP, 75828-0, 14748-1, 52492-9, 5130-0, 81380-2 #### [facility] ([id number]) [address] [place] [address], [address] [place] [address] #### 93306-6, NAIFA #### [facility] ([id number]) [address] [place] [address], [place] [address] Family Medicine Office/Clini c Noteon 11-10-2022 Family Medicine Office/Clinic Note HPI Staff Navdeep is a 47 year old female presenting for weight management Weight management Sleeping well:Yes, 6-8 hours Chest pain:No Tremors:No Headaches:No Heart fluttering:No Blurred Vision:No Questions/Concerns: pt is wanting to start Wegovy Pt has tried adipex in the past with little success. Had Gastric sleeve done in 2018 pt states she had lost over 120 pounds. Then had a lupus flair up and gained weight back was on IV Steroid's for a while. History of Present Illness pt presents for weight management Review of Systems PHQ Score Initial Depression Screen Score: 0 ROS - Provider Constitutional: no fever, no chills, no sweats, no fatigue Respiratory: no shortness of breath, no cough, no orthopnea, no wheezing. Cardiovascular: no chest pain, no palpitations, no edema. Neurologic: no headache, no dizziness, no numbness, no weakness. Physical Exam Vitals & Measurements HR: 88(Peripheral) RR: 18 BP: 144/92 SpO2: 96% HT: 68 in HT: 172.3 cm WT: 158.94 kg WT: 349.668 lb BMI: 53.54 General: alert, no acute distress ENMT: oral mucosa moist, no pharyngeal erythema or exudate Cardiovascular: regular rate and rhythm, normal peripheral perfusion Respiratory: Lungs CTA, respirations non labored Extremities: no deformity, no trauma Neurological: oriented x 4, LOC appropriate for age, CN II-XII intact, motor strength equal & normal bilaterally, speech normal Assessment/Plan 1. Encounter for weight management (Z76.89: Persons encountering health services in other specified circumstances) pt presents today for weight loss management. She has a PCP but they do not help with weight loss. pt has had bariatric surgery and is unable to lose any weight. she was on steroids for a long time and put a lot of weight back on and just can't lose anymore. she just started metformin this morning for prediabetes. will order wegovy . pt to return in 4 weeks. all questions answered. RTC 4 weeks Ordered: semaglutide, 0.25 mg, SubCutaneous, qWeek, # 4 EA, Refills(s) 0, Pharmacy: [email or web address] [id number], 172.3, cm, 11/10/22 12:48:00 EDT, Height/Length Dosing, 158.9, kg, 11/10/22 12:48:00 EDT, Weight Dosing 2. Pre-diabetes (R73.03: Prediabetes) see above Ordered: semaglutide, 0.25 mg, SubCutaneous, qWeek, # 4 EA, Refills(s) 0, Pharmacy: [email or web address] [id number], 172.3, cm, 11/10/22 12:48:00 EDT, Height/Length Dosing, 158.9, kg, 11/10/22 12:48:00 EDT, Weight Dosing 3. BMI 50.0-59.9, adult (Z68.43: Body mass index [BMI] 50.0-59.9, adult) BMI education complete Follow-up No qualifying data available Problem List/Past Medical History Ongoing BMI 50.0-59.9, adult Encounter for weight management Pre-diabetes Historical No qualifying data Procedure/Surgical History Gastric sleeve (2018). Medications diclofenac sodium 75 mg Oral EC Tab duloxetine 30 mg oral delayed release capsule duloxetine 60 mg oral delayed release capsule hydrOXYzine hydrochloride 50 mg oral tablet ibuprofen 800 mg Tab Kenalog 40 mg Inj IntraOcular metformin 500 mg ER Tab methylPREDNISolone 4 mg tab dosepak Ventolin HFA 90 mcg/inh Aerosol-Adpt Wegovy (0.25 mg dose) subcutaneous solution, 0.25 mg, SubCutaneous, qWeek Allergies acetaminophen-hydrocod one (Itchy, Unknown) cyclobenzaprine (Itchy, Unknown) hydroCHLOROthiazide (Unknown, Dizziness) Social History Tobacco Never (less than 100 in lifetime) Tobacco Use:. Never Smokeless Tobacco Use:. Household tobacco concerns: No., 11/10/2022 Immunizations Vaccine Date Status Comments influenza virus vaccine, inactivated 01/11/2022 Recorded SARS-CoV-2 (COVID-19) [id number] 01/11/2022 Recorded 2022-11-09: TPV40 influenza virus vaccine, inactivated 01/17/2021 Recorded SARS-CoV-2 (COVID-19) mRNA-1273 vaccine 07/13/2020 Recorded 2022-11-09: TPV40 SARS-CoV-2 (COVID-19) mRNA-1273 vaccine 06/15/2020 Recorded 2022-11-09: TPV40 influenza virus vaccine, inactivated 02/17/2020 Recorded diphtheria/pertussis, acel/tetanus adult 05/05/2019 Recorded diphtheria/pertussis, acel/tetanus adult 11/14/2018 Recorded hepatitis B adult vaccine 07/23/2018 Recorded hepatitis B adult vaccine 01/23/2018 Recorded hepatitis B adult vaccine 12/25/2017 Recorded Normal [facility] Comment on above: Result Comment: Elec tronically Signed By: Whit LYN, Silvia Bey\.br\Date and Time Signed: 11/10/22 13:28 EDT Quantiferon-TB Plus (Client Incubated)on 10-26-2022 Gamma interferon background IA Qn (Bld) 0.25 International_Unit/mL Invalid Interpretation Code [facility] Comment on above: Performed By: #### 3 [id number], [id number] #### [facility] [address] [place] [address] M. tuberculosis stim IFN-g by CD4+ CD8+ T-cells Qn (Bld) 0.16 International_Unit/mL Invalid Interpretation Code [facility] Comment on above: Performed By: #### 3 [id number], [id number] #### [facility] [address] [place] [address] M. tuberculosis stim IFN-g by CD4+ T-cells Qn (Bld) 0.15 International_Unit/mL Invalid Interpretation Code [facility] Comment on above: Performed By: #### 3 [id number], [id number] #### [facility] [address] [place] [address] M. tuberculosis stim IFN-g Ql (Bld) [Interp] Negative Invalid Interpretation Code Negative [facility] Comment on above: Result Comment: No r esponse to M tuberculosis antigens detected. Infection with M tuberculosis is unlikely, but high risk individuals should be considered for additional testing (ATS/IDSA/CDC Clinical Practice Guidelines, 2017). The reference range is an Antigen minus Nil result of <0.35 IU/mL. The specimen received for QuantiFERON testing was incubated by the ordering institution. Specific procedures outlined in our Directory of Services and in the package insert for the QuantiFERON Gold (In Tube) test must be followed to enable for proper stimulation of cells for the production of interferon gamma. Chemiluminescence immunoassay methodology Performed at: [facility] [address] [place] [address] [id number] PhD Jimbo Flores Performed By: #### 3 [id number], [id number], [id number], [id number] #### [facility] [address] [id number] Mitogen stimulated gamma interferon Qn (Bld) 1.13 International_Unit/mL Invalid Interpretation Code [facility] Comment on above: Performed By: #### 3 [id number], [id number], [id number], [id number] #### [facility] [address] [place] [address] Service comment (Unsp spec) [Interp] Comment Invalid Interpretation Code [facility] Comment on above: Result Comment: Kelvin tiFERON-TB Gold Plus is a qualitative indirect test for M tuberculosis infection (including disease) and is intended for use in conjunction with risk assessment, radiography, and other medical and diagnostic evaluations. The QuantiFERON-TB Gold Plus result is determined by subtracting the Nil value from either TB antigen (Ag) value. The Mitogen tube serves as a control for the test. Performed By: #### 3 [id number], [id number], [id number] #### [facility] [address] [place], [place] [id number] Hep Bs Abon 10-25-2022 HBV surface Ab Ql (S) Reactive Invalid Interpretation Code [facility] Comment on above: Result Comment: Non Reactive: Inconsistent with immunity, less than 10 mIU/mL Reactive: Consistent with immunity, greater than 9.9 mIU/mL Performed at: [address] [id number] PhD Jimbo Flores Performed By: #### 3 [id number], [id number], [id number], [id number] #### [facility] [address] [place] [address] Measles/Mumps/Rubella Immuni tyon 10-25-2022 MeV IgG IA Qn (S) {index_val} Invalid Interpretation Code Immune >16.4 [facility] Comment on above: Result Comment: Nega tive <13.5 Equivocal 13.5 - 16.4 Positive >16.4 Presence of antibodies to Rubeola is presumptive evidence of immunity except when acute infection is suspected. Performed By: #### 3 [id number], [id number], [id number], [id number] #### [facility] [address] [place] [address] MuV IgG IA Qn (S) 92.8 A unit/mL Invalid Interpretation Code Immune >10.9 [facility] Comment on above: Result Comment: Nega tive <9.0 Equivocal 9.0 - 10.9 Positive >10.9 A positive result generally indicates past exposure to Mumps virus or previous vaccination. Performed at: [facility] [id number] PhD Jimbo Flores Performed By: #### 3 [id number], [id number], [id number], [id number] #### [facility] [address] [place] [address] Rubella virus IgG Qn (S) 19.50 [IU]/mL Invalid Interpretation Code Immune >0.99 [facility] Comment on above: Result Comment: Non- immune <0.90 Equivocal 0.90 - 0.99 Immune >0.99 Performed By: #### 3 [id number], [id number], [id number], [id number] #### [facility] [address] [place] [address] Varic IgGon 10-25-2022 VZV IgG IA Qn (S) >4000 Invalid Interpretation Code Immune >165 [facility] Comment on above: Result Comment: Nega tive <135 Equivocal 135 - 165 Positive >165 A positive result generally indicates exposure to the pathogen or administration of specific immunoglobulins, but it is not indication of active infection or stage of disease. Performed at: [facility] [address] [place] [address] [id number] PhD Jimbo Flores Performed By: #### 3 [id number], [id number], [id number] #### [facility] [address] [place] [address] COVID + FLU Quick Testingon 02-07-2022 SARS-CoV-2 (COVID-19) RNA JAYLEEN+probe Ql (Unsp spec) Negative [facility] Other COVID + FLU Quick Testing Negative [facility] Other KNEE RIGHT 3 Son 2 KNEE RIGHT 3 S [facility] Department of Radiology [address] [place] [phone] ======== Patient Name: NAVDEEP PALMA : 1975 Sex: F Age: Race: Black Pt. Location: Patient Status: D Ordered Date: 04/08/2021 1:55:00 PM Completed Date: 04/08/2021 02:02 PM Requesting Provider: LYSSA PARK Attending Provider: LYSSA PARK Report Copy To: Signs & Symptoms: Z96.651 Presence of right artificial knee joint I10 History: [place] Comments: Views (X-RAY, KNEE): AP, Lateral, [place] , Weight Bearing?: Y Exam: KNEE RIGHT 3 [facility] ======== KNEE RIGHT 3 [facility] 04/08/2021 2:02 PM CLINICAL INDICATIONS: Z96.651 Presence of right artificial knee joint I10 TECHNOLOGIST COMMENTS: right knee pain TKA surgery - f/u QUESTION FOR THE RADIOLOGIST: Views (X-RAY, KNEE): AP, Lateral, [place] , Weight Bearing?: Y PROTOCOL: AP,Lateral and Tangential views were obtained. COMPARISON: 02/18/2021 FINDINGS: Right total knee replacement redemonstrated with no evidence of acute complications of hardware or new abnormalities of surrounding bone displayed. IMPRESSION: Unchanged from early February Electronically signed: Bin Vaughan. Transcribed by: [email or web address], User Resident: Electronically Signed by: BIN VAUGHAN @ 04/10/2021 07:02 PM Normal [facility] Comment on above: Order Comment: Views (X-RAY, KNEE): AP, Lateral, [place] , Weight Bearing?: Y KNEE RIGHT 1 OR 2 VWSon 02-09 KNEE RIGHT 1 OR 2 S [facility] Department of Radiology [address] [place] [phone] ======== Patient Name: NAVDEEP PALMA : 1975 Sex: F Age: Race: Black Pt. Location: Patient Status: D Ordered Date: 02/17/2021 4:30:00 PM Completed Date: 02/18/2021 01:57 PM Requesting Provider: LYSSA PARK Attending Provider: LYSSA PARK Report Copy To: JORDYN BARRERA Signs & Symptoms: Z48.89 Encounter for other specified surgical aftercare I10 History: [place] Comments: Evaluate Exam: KNEE RIGHT 1 OR 2 S ======== KNEE RIGHT 1 OR 2 VWS 02/18/2021 1:57 PM SIGNS AND SYMPTOMS: Z48.89 Encounter for other specified surgical aftercare I10 TECHNOLOGIST COMMENTS: rt knee post op no sunrise. patient cannot bend knee in a lot of pain QUESTION FOR THE RADIOLOGIST: Evaluate PROTOCOL: AP(PA) and Lateral views were obtained. COMPARISON: 02/09/2021 FINDINGS: Right total knee arthroplasty noted. Subcutaneous postoperative air has resolved since previous. Hardware appears in anatomic alignment without appreciable complication. IMPRESSION: * Uncomplicated postoperative appearance of right knee replacement Electronically signed: Endy White. Transcribed by: [email or web address], User Resident: ENDY WHITE Electronically Signed by: ENDY WHITE @ 02/20/2021 02:18 PM I personally read this/these film(s) with this resident Normal [facility] Comment on above: Order Comment: Evalu ate BASIC METABOLIC PANELon 12-0 Calcium [Mass/Vol] 8.3 mg/dL Low 8.6-10.3 [facility] Comment on above: Order Comment: No: D o not add to previous draw Performed By: #### 3 1595 #### [facility] [address] [place] [address], [facility] Chloride [Moles/Vol] 104 mmol/L Normal 98-107 [facility] Comment on above: Order Comment: No: D o not add to previous draw Performed By: #### 3 1595 #### [facility] [address] [place] [address], [place] CO2 [Moles/Vol] 28 mmol/L Normal 21-31 The [facility] Comment on above: Order Comment: No: D o not add to previous draw Performed By: #### 3 1595 #### [facility] [address] [place] [address], [place] Creatinine [Mass/Vol] 0.64 mg/dL Normal 0.60-1.20 [facility] Comment on above: Order Comment: No: D o not add to previous draw Performed By: #### 3 1595 #### [facility] [address] [place] [address], [place] GFR/1.73 sq M.predicted among blacks MDRD (S/P/Bld) [Vol rate/Area] mL/min/{1.73_m2} Normal >60 [facility] Comment on above: Order Comment: No: D o not add to previous draw Performed By: #### 3 1595 #### [facility] [address] [place] [address], [place] GFR/1.73 sq M.predicted among non-blacks MDRD (S/P/Bld) [Vol rate/Area] mL/min/{1.73_m2} Normal >60 [facility] Comment on above: Order Comment: No: D o not add to previous draw Performed By: #### 3 1595 #### [facility] [address] [place] [address], [place] Glucose [Mass/Vol] 133 mg/dL High 70-100 The [facility] Comment on above: Order Comment: No: D o not add to previous draw Performed By: #### 3 1595 #### [facility] [address] [place] [address], [place] Potassium [Moles/Vol] 4.3 mmol/L Normal 3.5-5.1 [facility] Comment on above: Order Comment: No: D o not add to previous draw Performed By: #### 3 1595 #### [facility] [address] [place] [address], [place] Sodium [Moles/Vol] 138 mmol/L Normal 136-145 [facility] Comment on above: Order Comment: No: D o not add to previous draw Performed By: #### 3 1595 #### [facility] [address] [place] [address], [place] Urea nitrogen [Mass/Vol] 7 mg/dL Normal 7-25 [facility] Comment on above: Order Comment: No: D o not add to previous draw Performed By: #### 3 1595 #### [facility] [address] [place] [address], [place] CBC COMPLETE BLOOD COUNTon 04-13-2020 Erythrocyte distribution width (RBC) [Ratio] 13.9 % Normal 11.5-15.0 [facility] Comment on above: Order Comment: No: D o not add to previous draw Performed By: #### 5 0608 #### [facility] [address] [place] [address], [facility] Hematocrit (Bld) [Volume fraction] 32.2 % Low 36.0-45.0 The [facility] Comment on above: Order Comment: No: D o not add to previous draw Performed By: #### 5 0608 #### [facility] [address] [place] [id number], [facility] Hemoglobin (Bld) [Mass/Vol] 10.7 g/dL Low 12.0-15.0 [facility] Comment on above: Order Comment: No: D o not add to previous draw Performed By: #### 5 0608 #### [facility] [address] [place] [id number], [facility] MCH (RBC) [Entitic mass] 30.3 pg Normal 27.0-33.0 [facility] Comment on above: Order Comment: No: D o not add to previous draw Performed By: #### 5 0608 #### [facility] [address] [place] [address], [facility] MCHC (RBC) [Mass/Vol] 33.2 g/dL Normal 32.0-35.0 [facility] Comment on above: Order Comment: No: D o not add to previous draw Performed By: #### 5 0608 #### [facility] [address] [place] [address], [facility] MCV (RBC) [Entitic vol] 91.2 fL Normal 82.0-98.0 [facility] Comment on above: Order Comment: No: D o not add to previous draw Performed By: #### 5 0608 #### [facility] [address] [place] [address], [facility] Nucleated RBC/100 WBC (Bld) [Ratio] 0 % Normal 0-0 [facility] Comment on above: Order Comment: No: D o not add to previous draw Performed By: #### 5 0608 #### [facility] [address] [place] [address], [facility] PLAT CNT 204 10*3/uL Normal 150-400 The [facility] Comment on above: Order Comment: No: D o not add to previous draw Performed By: #### 5 0608 #### [facility] [address] RBC (Bld) [#/Vol] 3.53 10*6/uL Low 3.80-5.00 The [facility] Comment on above: Order Comment: No: D o not add to previous draw Performed By: #### 5 0608 #### [facility] [address] [place] [address], [facility] WBC (Bld) [#/Vol] 6.84 10*3/uL Normal 4.00-10.60 [facility] Comment on above: Order Comment: No: D o not add to previous draw Performed By: #### 5 0608 #### [facility] [address] [facility]. [address] Operative Reporton 1 Operative Report MR#: [id number] 2 [facility] Pt. Name: Navdeep Palma Room #: [id number] Discharge Date: Birthdate: 1975 OPERATIVE REPORT DATE OF SURGERY: 02/09/2021 SURGEON: Lyssa Park M.D. PRIMARY CARE PHYSICIAN: Dr. Jordyn Barrera. ASSISTANTS: [employer] Gir[employer] Victoria. PREOPERATIVE DIAGNOSIS: Right knee joint severe intractable degenerative arthritis along with varus deformity and instability. POSTOPERATIVE DIAGNOSES: 1. Right knee joint severe intractable degenerative arthritis along with varus deformity and instability. 2. Morbid obesity with failed previous bariatric intervention and nonsurgical treatment for the knee arthritis. PROCEDURE PERFORMED: 1. Right primary posterior stabilized total knee arthroplasty using stemmed tibial implant due to morbid obesity and cemented implants using [employer] Triathlon posterior stabilized implant. 2. Superficial and deep complex closure due to morbid obesity of the patient. COMPLICATIONS: None. ESTIMATED BLOOD LOSS: About 50 mL. TOTAL TOURNIQUET TIME: 85 minutes. SPECIMEN SENT: None. COUNTS: Total needle count, instrument count, and scrub count at the end of the procedure is within normal limits and accurate. HARDWARE USED: 1. Triathlon X3 asymmetric patella size A35 thickness 10 mm. 2. Triathlon total knee cemented stem, 50 mm x 50 mm. 3. Triathlon X3 tibial bearing insert, posterior stabilized, size 6 x 13 mm. 4. Triathlon posterior stabilized femoral component, size 5 by right side posterior stabilized. 5. Triathlon total knee universal tibial base plate size 6. 6. Two batches of Biomet cement. INDICATION FOR THE PROCEDURE: The patient is a pleasant 45-year-old female, who is known to have morbid obesity along with severe bilateral tricompartmental degenerative arthritis of the knee joint. She has had bilateral nonsurgical treatment in the form of oral pain medications, physical therapy, weight loss program, bariatric intervention, which has failed as well as previous positive JACQUIE due to her possible connective tissue disorder and morbid obesity. She is also known to have lumbosacral radiculopathy and weakness in the lower extremity along with weakness and instability of her lower extremities. Due to her failed nonsurgical treatment, she is indicated for right primary total knee arthroplasty. X-rays of the right knee joint have been taken, which show that the patient has severe varus deformity along with tricompartmental degenerative arthritis of the right knee joint. Subchondral sclerosis noted as well as subchondral cyst formation noted. Since the patient has failed nonsurgical treatment, she is indicated for right primary total knee arthroplasty. Details of the right knee arthroplasty were discussed with the patient including complications, which are but not restricted to bleeding, infection, neurovascular injury, residual stiffness, anesthetic risk, deep vein thrombosis, pulmonary embolism, myocardial infarction, stroke, mortality less than 0%, recurrent instability, polyethylene wear due to her morbid obesity, loosening, periprosthetic fractures, iatrogenic fractures, need for further revision knee arthroplasty, multiple revisions causing stiffness and/or scarring of the knee joint, need for fusion and/or a bony amputation in case of recurrent infection were all discussed at length with the patient and the family despite they wished to proceed with surgery. She has signed a consent form. Site was marked. We met the patient in the preoperative holding area and IV antibiotics were commenced within an hour of the incision. PROCEDURE IN DETAIL: After written consent was obtained, site was marked. The patient was taken to the [facility] OR and was placed in a supine position with a bump under her right hip joint. Following this, general anesthesia was instilled by Dr. Lopez. Following this, right lower extremity tourniquet was applied, followed by prep and drape of the right lower extremity using Hibiclens or DuraPrep and alcohol. This was then followed by marking the incision over the anterior aspect of the hip joint. Due to her morbid obesity, there were excessive procedures as well as additional procedures in the form of releases and superficial and deep complex closure required at the end of the procedure. Also, required more number of assistants due to the obesity as well as also required complex retractions as to enable placement of the right knee arthroplasty. Following this, the tourniquet was inflated to 300 mmHg after extending to the lower extremity using Esmarch tourniquet. Following this, we then marked the anterior incision about 4 fingers proximal to the right tibia, right patellar superior proximal pole extending to the tibial tuberosity. This was made using a #15 blade, followed by identifying the extensor mechanism. Complex retraction was performed to iden (more content not included)... Normal The [facility] POC GLUCOSE LABon 02-09-2021 Glucose [Mass/Vol] 96 mg/dL Normal 70-100 [facility] Comment on above: Performed By: #### 8 [id number] #### [address] PORTABLE KNEE RIGHT 2 [facility] 02-09-2021 PORTABLE KNEE RIGHT 2 [facility] Department of Radiology [address] [place] [phone] ======== Patient Name: NAVDEEP PALMA : 1975 Sex: F Age: Race: Black Pt. Location: OUTP Patient Status: O Ordered Date: 02/09/2021 11:25:00 AM Completed Date: 02/09/2021 11:51 AM Requesting Provider: CAMILA ARMSTRONG Attending Provider: LYSSA PARK Report Copy To: Signs & Symptoms: Pain History: Comments: Hardware Evaluation, post op eval, pt in pacu Exam: PORTABLE KNEE RIGHT 2 VWS ======== PORTABLE KNEE RIGHT 2 VWS 02/09/2021 11:51 AM SIGNS AND SYMPTOMS: Pain, post op hardware evaluation. right knee replacement QUESTION FOR THE RADIOLOGIST: Hardware Evaluation, post op eval, pt in pacu PROTOCOL: AP,Lateral and Tangential views were obtained. COMPARISON: None IMPRESSION: * Right knee arthroplasty in satisfactory alignment with no evidence of any immediate postoperative complication. Expected postoperative changes in the overlying soft tissues. Electronically signed: Jozef Manriquez M.D.. Transcribed by: [email or web address], User Resident: Electronically Signed by: JOZEF MANRIQUEZ @ 02/09/2021 12:05 PM Normal The [facility] Comment on above: Order Comment: Hardw are Evaluation, post op eval, pt in pacu *MRSA/MSSA DNA NASALon 01-18 *MRSA/MSSA DNA NASAL Clinical Report: (D) Specimen: NASAL SWAB Collected: 01/18/2021 14:00 Status: Final Last Updated: 01/18/2021 17:12 MSSA DNA (Final) Methicillin Susceptible Staphylococcus aureus DNA Detected MRSA DNA (Final) Negative Normal [facility] Comment on above: Performed By: #### 3 1595 #### [place] [address] [address] *URINE CULTUREon 01-18-2021 *URINE CULTURE Clinical Report: (D) Specimen: URINE Collected: 01/18/2021 14:00 Status: Final Last Updated: 01/20/2021 09:37 ISO (Final) Lactobacillus gasseri >100,000 Cfu/Ml Normal [facility] Comment on above: Performed By: #### 3 0339 #### [facility] [address] [facility] [place] [address], [facility] APTTon 01-18-2021 aPTT Coag (Bld) [Time] 29.5 s Normal 25.0-35.0 [facility] Comment on above: Result Comment: ALL RESULTS MUST BE INTERPRETED WITH RESPECT TO BLOOD DRAWING ARTIFACT OR DILUTION ERROR OF ANTICOAGULANT AT THE TIME OF SAMPLING. THE APTT SHOULD NOT BE USED TO MONITOR UNFRACTIONATED HEPARIN THERAPY, THIS LABORATORY NO LONGER HAS AN ESTABLISHED THERAPEUTIC RANGE BASED ON THE APTT. IT IS RECOMMENDED THAT THE [facility]FH - HEPARIN ASSAY (ANTI-XA ACTIVITY) BE USED FOR THIS PURPOSE. Performed By: #### 3 1595 #### [facility] [address] [facility] BASIC METABOLIC PANELon Calcium [Mass/Vol] 8.9 mg/dL Normal 8.6-10.3 [facility] Comment on above: Performed By: #### 0 0071 #### [facility] [address] [place] [address], [facility] Chloride [Moles/Vol] 105 mmol/L Normal 98-107 [facility] Comment on above: Performed By: #### 0 0071 #### [facility] [address] [facility] [facility] [place] [id number], [facility] CO2 [Moles/Vol] 27 mmol/L Normal 21-31 [facility] Comment on above: Performed By: #### 0 0071 #### [facility] [address] [place] [address], [facility] Creatinine [Mass/Vol] 0.67 mg/dL Normal 0.60-1.20 [facility] Comment on above: Performed By: #### 0 0071 #### [facility] [address] [place] [address], [place] GFR/1.73 sq M.predicted among blacks MDRD (S/P/Bld) [Vol rate/Area] mL/min/{1.73_m2} Normal >60 The [facility] Comment on above: Performed By: #### 0 0071 #### [facility] [address] [place] [address], [place] GFR/1.73 sq M.predicted among non-blacks MDRD (S/P/Bld) [Vol rate/Area] mL/min/{1.73_m2} Normal >60 [facility] Comment on above: Performed By: #### 0 0071 #### [facility] [address] [place] [address], [place] Glucose [Mass/Vol] 90 mg/dL Normal 70-100 The [facility] Comment on above: Performed By: #### 0 0071 #### [facility] [address] [place] [address], [facility] Potassium [Moles/Vol] 3.9 mmol/L Normal 3.5-5.1 [facility] Comment on above: Performed By: #### 0 0071 #### [facility] [address] [place] [address], [place] Sodium [Moles/Vol] 140 mmol/L Normal 136-145 The [facility] Comment on above: Performed By: #### 0 0071 #### [facility] [address] [place] [address], [facility] Urea nitrogen [Mass/Vol] 7 mg/dL Normal 7-25 [facility] Comment on above: Performed By: #### 0 0071 #### [facility] [address] CBC W/DIFFon 01-18-2021 ABS IMM GRANS 0.0 10*3/uL Normal 0.0-0.2 The [facility] Comment on above: Performed By: #### 3 1595 #### [facility] [address] [place] [address], [facility] ABS NEUTROPHILS 1.2 10*3/uL Low 1.6-7.[address] [facility] Comment on above: Performed By: #### 3 1595 #### [facility] [address] [place] [address], [facility] Basophils (Bld) [#/Vol] 0.0 10*3/uL Normal 0.0-0.2 [facility] Comment on above: Performed By: #### 3 1595 #### [facility] [address] [place] [address], [facility] Basophils/100 WBC (Bld) 0.7 % Normal 0.0-1.0 [facility] Comment on above: Performed By: #### 3 1595 #### [facility] [address] [place] [address], [facility] Eosinophils (Bld) [#/Vol] 0.0 10*3/uL Normal 0.0-0.5 [facility] Comment on above: Performed By: #### 3 1595 #### [facility] [address] [place] [address], [facility] Eosinophils/100 WBC (Bld) 0.7 % Normal 0.0-6.0 [facility] Comment on above: Performed By: #### 3 1595 #### [facility] [address] Erythrocyte distribution width (RBC) [Ratio] 13.9 % Normal 11.5-15.0 [facility] Comment on above: Performed By: #### 3 1595 #### [facility] [address] [place] [address], [facility] Hematocrit (Bld) [Volume fraction] 40.3 % Normal 36.0-45.0 [facility] Comment on above: Performed By: #### 3 1595 #### [facility] [address] [place] [address], [facility] Hemoglobin (Bld) [Mass/Vol] 12.6 g/dL Normal 12.0-15.0 [facility] Comment on above: Performed By: #### 3 1595 #### [facility] [address] [facility] [place] [address], [facility] IMMATURE GRANS 0.4 % Normal 0.0-1.0 [facility] [place] Comment on above: Performed By: #### 3 1595 #### [facility] [address] [place] [address], [facility] Lymphocytes (Bld) [#/Vol] 1.2 10*3/uL Normal 1.2-4.0 [facility] Comment on above: Performed By: #### 3 1595 #### [facility] [address] [place] [address], [facility] Lymphocytes/100 WBC (Bld) 45.0 % Normal 20.0-45.0 [facility] Comment on above: Performed By: #### 3 1595 #### [facility] [address] [facility] [place] [address], [facility] MCH (RBC) [Entitic mass] 29.7 pg Normal 27.0-33.0 [facility] Comment on above: Performed By: #### 3 1595 #### [facility] [address] [place] [address], [facility] MCHC (RBC) [Mass/Vol] 31.3 g/dL Low 32.0-35.0 [facility] Comment on above: Performed By: #### 3 1595 #### [facility] [address] [place] [address], [facility] MCV (RBC) [Entitic vol] 95.0 fL Normal 82.0-98.0 [facility] Comment on above: Performed By: #### 3 1595 #### [facility] [address] [place] [address], [facility] Monocytes (Bld) [#/Vol] 0.3 10*3/uL Normal 0.1-1.0 [facility] Comment on above: Performed By: #### 3 1595 #### [facility] [address] [place] [address], [facility] MONOS 9.3 % Normal 5.0-12.0 [facility] Comment on above: Performed By: #### 3 1595 #### [facility] [address] [place] [address], [facility] Neutrophils/100 WBC (Bld) 43.9 % Normal 40.0-72.0 [facility] Comment on above: Performed By: #### 3 1595 #### [facility] [address] [place] [id number], [facility] Nucleated RBC/100 WBC (Bld) [Ratio] 0 % Normal 0-0 [facility] Comment on above: Performed By: #### 3 1595 #### [facility] [address] [place] [address], [place] PLAT CNT 269 10*3/uL Normal 150-400 The [facility] Comment on above: Performed By: #### 3 1595 #### [facility] [address] [place] [address], [facility] RBC (Bld) [#/Vol] 4.24 10*6/uL Normal 3.80-5.00 [facility] Comment on above: Performed By: #### 3 1595 #### [facility] [address] [place], [place] [id number] [place] [address] WBC (Bld) [#/Vol] 2.69 10*3/uL Low 4.00-10.60 The [facility] Comment on above: Performed By: #### 3 1595 #### [facility] [address] HEMOGLOBIN A1Con 01-18-2021 Glucose [Moles/Vol] 126 mmol/L Normal [facility] Comment on above: Performed By: #### 3 1791 #### [facility] [address] HbA1c (Bld) [Mass fraction] 6.0 % Normal 4.0-6.0 [facility] Comment on above: Performed By: #### 3 1791 #### [facility] [address] [facility] PROTHROMBIN TIMEon INR Coag (PPP) [Relative time] 1.04 {INR} Normal 0.91-1.16 [facility] Comment on above: Result Comment: ACCC P RECOMMENDED INR FOR WARFARIN THERAPY ----- ------- CONDITION INR PROPHYLAXIS OF VENOUS THROMBOSIS 2-3 (HIGH-RISK SURGERY) TREATMENT OF VENOUS THROMBOSIS 2-3 TREATMENT OF PULMONARY EMBOLISM 2-3 PREVENTION OF SYSTEMIC EMBOLISM: 2-3 ACUTE MYOCARDIAL INFARCTION TISSUE HEART VALVES VALVULAR HEART DISEASE ATRIAL FIBRILLATION RECURRENT SYSTEMIC EMBOLISM MECHANICAL HEART VALVE 2.5-3.5 FROM: ORAL ANTICOAGULANTS. MECHANISM OF ACTION, CLINICAL EFFECTIVENESS, AND OPTIMAL THERAPEUTIC RANGE. CHEST 1995;108:231S-246S. Performed By: #### 3 5658 #### [facility] [address] [place] [address], [facility] PT Coag (PPP) [Time] 13.6 s Normal 12.3-14.8 [facility] Comment on above: Result Comment: ALL RESULTS MUST BE INTERPRETED WITH RESPECT TO BLOOD DRAWING ARTIFACT OR DILUTION ERROR OF ANTICOAGULANT AT THE TIME OF SAMPLING. Performed By: #### 3 1595 #### [facility] [address] [place] [address], [facility] TYPE AND SCREENon 01-18-2021 ABO INTERPRETATION O Normal The [facility] Comment on above: Performed By: #### 3 1595 #### [facility] [address] [place] [address], [facility] RH INTERPRETATION Positive Normal The [facility] Comment on above: Performed By: #### 3 1595 #### [facility] [address] [place] [address], [facility] URINALYSIS REFLEXon 01-19-20 21 Appearance (U) SL CLOUDY Abnormal CLEAR The [facility] Comment on above: Performed By: #### 3 0965 #### [facility] [address] [facility] [place] [id number], [facility] Bilirubin Ql (U) Negative Normal NEGATIVE The [facility] Comment on above: Performed By: #### 3 0965 #### [facility] [address] [place] [address], [facility] Color (U) YELLOW Normal YELLOW [facility] Comment on above: Performed By: #### 3 0965 #### [facility] [address] [place] [address], [facility] EPIS MOD Abnormal FEW,OCC,NONE SEEN [facility] Comment on above: Performed By: #### 3 0965 #### [facility] [address] [place] [address], [place] Glucose Ql (U) Negative Normal NEGATIVE The [facility] Comment on above: Performed By: #### 3 0965 #### [facility] [address] [place] [address], [facility] Hemoglobin Ql (U) Negative Normal NEGATIVE The [facility] Comment on above: Performed By: #### 3 0965 #### [facility] [address] [place] [address], [facility] Hyaline casts LM Ql (Urine sed) 3 /LPF Abnormal NONE SEEN The [facility] Comment on above: Performed By: #### 3 0965 #### [facility] [address] [place] [address], [facility] KETONE Negative Normal NEGATIVE [facility] Comment on above: Performed By: #### 3 0965 #### [facility] [address] [place] [address], [facility] LEUK SOPHIA TRACE Abnormal NEGATIVE [facility] Comment on above: Performed By: #### 3 0965 #### [facility] [address] [place] [address], [facility] MUCUS THREADS FEW Abnormal NONE SEEN The [facility] Comment on above: Performed By: #### 3 0965 #### [facility] [address] [place] [address], [facility] Nitrite Ql (U) Negative Normal NEGATIVE The [facility] Comment on above: Performed By: #### 3 0965 #### [facility] [address] [place] [address], [facility] pH (U) 7.0 [pH] Normal 5.0-8.0 [facility] Comment on above: Performed By: #### 3 0965 #### [facility] [address] [place] [address], [facility] Protein Ql (U) Negative Normal NEGATIVE The [facility] Comment on above: Performed By: #### 3 0965 #### [facility] [address] [facility] [place], [place] [id number] [place] [address] RBC 0-2 Abnormal NONE SEEN [facility] Comment on above: Performed By: #### 3 0965 #### [facility] [address] [facility] [place], [place] [id number] [place] [address] SPEC GRAV 1.023 High 1.015-1.020 The [facility] Comment on above: Performed By: #### 3 0965 #### [facility] [address] [place] [address], [facility] WBC UA 0-2 Abnormal NONE SEEN The [facility] Comment on above: Performed By: #### 3 0965 #### [facility] [address] [place], [place] [id number] [place] [address] MRI KNEE WO CONTRAST RIGHTon 09-08-2020 MRI KNEE WO CONTRAST RIGHT [facility] Department of Radiology [address] [place], [place] [id number] ======== Patient Name: NAVDEEP PALMA : 1975 Sex: F Age: Race: Black Pt. Location: Patient Status: D Ordered Date: 08/16/2020 4:30:00 PM Completed Date: 09/08/2020 01:44 PM Requesting Provider: IKNGS MIRANDA Attending Provider: KINGS MIRANDA Report Copy To: Signs & Symptoms: M17.11 Unilateral primary osteoarthritis, right knee I10 History: [place], PHONE:[phone],*NE EDS ORTHO F/U APPT. NO METAL [facility] no pc required PER [facility] REF# [id number] 08/20/20 [id number] *KW Comments: Evaluate Exam: MRI KNEE WO CONTRAST RIGHT ======== MRI KNEE WO CONTRAST RIGHT 09/08/2020 1:44 PM CLINICAL INDICATIONS: M17.11 Unilateral primary osteoarthritis, right knee I10 TECHNOLOGIST COMMENTS: c/o chronic right knee QUESTION FOR THE RADIOLOGIST: Evaluate PROTOCOL: Images were obtained in the following sequences: 3-plane localizer, axial PD fat-sat, sagittal PD fat-sat, sagittal GRE, coronal PD fat-sat, and coronal T1. COMPARISON: Right knee radiographs 08/16/2020 FINDINGS: MENISCI Medial meniscus: Complex posterior horn medial meniscal tear extending to the root of the meniscus, with medial extrusion exaggerated by articular cartilage loss of the medial compartment. Medial meniscal tear extends to the tibial and femoral surfaces. Lateral meniscus: No discrete tear. LIGAMENTS Cruciate ligaments: Intact. Mucoid degeneration of the ACL. Medial collateral ligament: Superficial and deep components intact. Lateral collateral ligament: Intact. EXTENSOR MECHANISM Extensor mechanism:Intact. The patella is normally positioned within the femoral groove. There is no retinacular disruption. FLUID Fluid: There is small joint effusion. Tiny Jackson's cyst. Small amount of fluid also noted along the anteromedial aspect of the semimembranosus bursa, with small amount of fluid and edema extending inferiorly along the pes anserine bursa. OSSEOUS and ARTICULAR STRUCTURES Bones: No fracture, stress reaction, or osseous lesion is seen.: Bone marrow reconversion compatible with increased hematopoiesis. Patellofemoral compartment: Mild articular cartilage thinning and irregularity. Medial compartment: Severe articular cartilage loss. Prominent medial compartment osteophytes with subchondral cystic changes most prominent posteriorly. Lateral compartment: No discrete articular cartilage defect. Mild spurring of the lateral compartment. IMPRESSION: 1. Complex medial meniscal tear. 2. Tricompartmental arthritis, severe involving the medial compartment. 3. Small joint effusion. 4. Small amount of fluid along the anterior aspect of the semimembranosus bursa, with small amount of fluid and edema extending inferiorly along the pes anserine bursa. 5. Mucoid degeneration of the ACL. Electronically signed: Bin Early. Transcribed by: [email or web address], User Resident: Electronically Signed by: BIN EARLY @ 09/09/2020 04:53 PM Normal The [facility] Comment on above: Order Comment: Evalu ate KNEE LEFT 4VWSon 08-16-2020 KNEE LEFT 4VWS [facility] Department of Radiology [address] [place] [id number] ======== Patient Name: NAVDEEP PALMA : 1975 Sex: F Age: Race: Black Pt. Location: Patient Status: O Ordered Date: 08/16/2020 9:55:00 AM Completed Date: 08/16/2020 10:19 AM Requesting Provider: KINGS MIRANDA Attending Provider: KINGS MIRANDA Report Copy To: Signs & Symptoms: M25.569 Pain in unspecified knee I10 History: [place] Comments: Evaluate Exam: KNEE LEFT 4VWS ======== KNEE LEFT 4VWS 08/16/2020 10:19 AM CLINICAL INDICATIONS: M25.569 Pain in unspecified knee I10 TECHNOLOGIST COMMENTS: Patient states chronic bilateral knee pain right knee worse than left knee pain throughout joints QUESTION FOR THE RADIOLOGIST: Evaluate PROTOCOL: AP,Lateral,Tunnel and Tangential views were obtained. COMPARISON: None FINDINGS: Severe loss of medial compartment joint space with marginal spurring and mild subchondral sclerosis. There is a varus angulation. No acute fracture. Patellar spurring. Soft tissues unremarkable. IMPRESSION: Severe medial compartment osteoarthritis with varus angulation Electronically signed: Gualberto Worthington. Transcribed by: [email or web address], User Resident: Electronically Signed by: GUALBERTO WORTHINGTON @ 08/16/2020 06:23 PM Normal [facility] Comment on above: Order Comment: Evalu ate KNEE RIGHT 4 [facility] KNEE RIGHT 4 [facility] Department of Radiology [address] [place] [phone] ======== Patient Name: NAVDEEP PALMA : 1975 Sex: F Age: Race: Black Pt. Location: Patient Status: O Ordered Date: 08/16/2020 9:55:00 AM Completed Date: 08/16/2020 10:19 AM Requesting Provider: KINGS MIRANDA Attending Provider: KINGS MIRANDA Report Copy To: Signs & Symptoms: M25.569 Pain in unspecified knee I10 History: [place] Comments: Evaluate Exam: KNEE RIGHT 4 [facility] ======== KNEE RIGHT 4 [facility] 08/16/2020 10:19 AM CLINICAL INDICATIONS: M25.569 Pain in unspecified knee I10 TECHNOLOGIST COMMENTS: Patient states chronic bilateral knee pain right knee worse than left knee pain throughout joints QUESTION FOR THE RADIOLOGIST: Evaluate PROTOCOL: AP,Lateral,Tunnel and Tangential views were obtained. COMPARISON: None FINDINGS: Severe loss of medial compartment joint space with marginal spurring. There is subchondral sclerosis. No acute fracture nor malalignment. Patellar spurring. Soft tissues unremarkable. IMPRESSION: Advanced medial compartment osteoarthritis with varus angulation Electronically signed: Gualberto Worthington. Transcribed by: [email or web address], User Resident: Electronically Signed by: GUALBERTO WORTHINGTON @ 08/16/2020 06:23 PM Normal [facility] Comment on above: Order Comment: Evalu ate XR WRIST LT MIN 3 Von 2017 XR WRIST LT MIN 3 [address] [place] [address] Patient: NAVDEEP PALMA Exam Date: 03/04/2018 : 1975 Gender:F Ordering : DR SALLY WELCH . Admission #: [id number] Family : Order #: [id number] CLICK HERE TO VIEW EXAM RADIOLOGY REPORT PROCEDURE: RADIOGRAPH WRIST LEFT MIN 3 VIEWS COMPARISON: None. INDICATIONS: Acute left wrist pain with injury FINDINGS: BONES: The scapholunate joint width is at the upper limits of normal. Normal appearance of remaining carpal joints and carpal bones. No fracture dislocation. SOFT TISSUES: Mild soft tissue swelling. OTHER: Negative. CONCLUSION: 1. Borderline scapholunate joint widening, suspected to be chronic. Acute injury cannot be completely excluded. 2. No fracture or dislocation. Dictated by: Jc Dodson M.D. on 03/04/2018 at 23:39 Approved by: Jc Dodson M.D. on 03/04/2018 at 23:45 Normal [facility] Vital Signs Date Time Vital Sign Value Performing Clinician Facility 02-07-2022 17:15-0500 Body height 167.64 cm Alesha Watkins Other [facility] Other 02-07-2022 17:15-0500 Body temperature 98 [degF] Alesha Watkins Other [facility] Other 02-07-2022 17:15-0500 Diastolic blood pressure 106 mm[Hg] Alesha Watkins Other [facility] Other 02-07-2022 17:15-0500 Respiratory rate 18 /min Alesha Watkins Other [facility] Other 02-07-2022 17:15-0500 SaO2% (BldA) [Mass fraction] 99 % Alesha Watkins Other [facility] Other 02-07-2022 17:15-0500 Systolic blood pressure 143 mm[Hg] Alesha Michelault Other [facility] Other Encounters Encounter Date Encounter Type Care Provider Facility Start: 07-12-2023 End: 07-13-2023 ambulatory [facility] Start: 07-12-2023 End: 07-12-2023 ambulatory [facility] Start: 06-18-2023 Orders Only Bong Leach ight SENIOR CONSUMER INSIGHTS CONSULTANT-SOAP DRIER OPERATOR Work Phone: [facility] Start: 06-12-2023 End: 06-13-[address] [facility] Start: 06-11-2023 Orders Only Bong Leach ight SENIOR CONSUMER INSIGHTS CONSULTANT-SOAP DRIER OPERATOR Work Phone: [facility] Comment on above: Pre-diabetes (Primar y Dx) Other forms of syste zev lupus erythematosus, unspecified organ involvement status ([facility] Start: 06-01-2023 Refill Bong Leach ight SENIOR CONSUMER INSIGHTS CONSULTANT-SOAP DRIER OPERATOR Work Phone: [facility] Comment on above: Gastroesophageal ref lux disease without esophagitis Start: 05-24-2023 Orders Only Bong Leach ight SENIOR CONSUMER INSIGHTS CONSULTANT-SOAP DRIER OPERATOR Work Phone: [facility] Comment on above: Chronic pain of left knee (Primary Dx); Arthritis of left knee Start: 05-21-2023 Refill [facility] Start: 05-17-2023 Refill Xochitl Muir [facility] Comment on above: Gastroesophageal ref lux disease without esophagitis Start: 05-15-2023 Refill Bong Leach ight SENIOR CONSUMER INSIGHTS CONSULTANT-SOAP DRIER OPERATOR Work Phone: [facility] Comment on above: Pre-diabetes Start: 05-04-2023 Orders Only Bong Leach ight SENIOR CONSUMER INSIGHTS CONSULTANT-SOAP DRIER OPERATOR Work Phone: [facility] Comment on above: Hepatic steatosis (P rimary Dx) Epigastric pain ([place] velia Dx); Hepatic steatosis; Other forms of systemic lupus erythematosus, unspecified organ involvement status ([facility]) Start: 05-02-2023 End: 05-03-2023 ambulatory [facility] Start: 05-01-2023 Orders Only Bong Leach ight SENIOR CONSUMER INSIGHTS CONSULTANT-SOAP DRIER OPERATOR Work Phone: [facility] Start: 04-30-2023 End: 05-01-2023 Orders Only Bong Phelan SENIOR CONSUMER INSIGHTS CONSULTANT-SOAP DRIER OPERATOR Work Phone: [facility] Comment on above: Acute cystitis witho ut hematuria (Primary Dx) Start: 04-30-2023 End: 04-30-2023 Office outpatient visit 25 minutes Darlin Holland MD [facility] Comment on above: Lupus ([facility]) ([place] velia Dx); Lumbosacral spondylosis without myelopathy; Class 3 severe obesity due to excess calories without serious comorbidity with body mass index (BMI) of 50.0 to 59.9 in adult ([facility]); Primary osteoarthritis of left knee; Medication monitoring encounter Start: 04-24-2023 Orders Only Bong Leach ight SENIOR CONSUMER INSIGHTS CONSULTANT-SOAP DRIER OPERATOR Work Phone: [facility] Comment on above: Acute cystitis witho ut hematuria (Primary Dx) Start: 04-06-2023 End: 04-07-2023 ambulatory [facility] Start: 04-06-2023 End: 04-06-2023 ambulatory [facility] Start: 04-06-2023 End: 04-06-2023 Office outpatient visit 15 minutes Bong Phelan SENIOR CONSUMER INSIGHTS CONSULTANT-SOAP DRIER OPERATOR Work Phone: [facility] Comment on above: Gastroesophageal ref lux disease without esophagitis (Primary Dx); Urinary frequency; Chest discomfort; Pre-diabetes Start: 03-09-2023 Refill [facility]l Isadoar [facility] Comment on above: Pre-diabetes Start: 03-08-2023 Orders Only Bong Leach ight SENIOR CONSUMER INSIGHTS CONSULTANT-SOAP DRIER OPERATOR Work Phone: [facility] Comment on above: Other forms of syste zev lupus erythematosus, unspecified organ involvement status ([facility]) (Primary Dx); Pre-diabetes Start: 03-02-2023 Orders Only Bong Leach ight SENIOR CONSUMER INSIGHTS CONSULTANT-SOAP DRIER OPERATOR [facility] Comment on above: Pre-diabetes (Primar y Dx) Start: 03-01-2023 End: 03-02-20[facility] [facility] Start: 03-01-2023 End: 03-01-2023 ambulatory [facility] Start: 11-10-2022 End: 11-11-2022 ambulatory VERIFICATION REP Silvia Sherman Facility:[facility] Start: 10-24-2022 End: 10-25-2022 ambulatory Velia John LUND Facility:[facility] Start: 06-29-2022 End: 06-29-2022 ambulatory Lynda Pena Other [facility] Other Start: 06-29-2022 Telephone encounter Lynda Pena [facility] [address] Start: 06-28-2022 End: 06-28-2022 ambulatory Shilpi Cedillo Other [facility] Other Start: 06-28-2022 Telephone encounter Shilpi [facility]ARCUS [facility] Start: 02-07-2022 End: 02-07-2022 ambulatory Alesha Watkins Other [facility] Other Start: 02-07-2022 Office outpatient vi sit 15 minutes Alesha Watkins [facility] Start: 02-09-2021 End: 02-10-2021 ambulatory LYSSA PARK Facility:[facility] Start: 03-04-2018 End: 03-05-2018 Patient encounter procedure SALLY WELCH Facility: Procedures Date Procedure Procedure Detail Performing Clinician Start: 03-01-2023 Cyclic citrullinated peptide antibody BONG PHELAN Comment on above: Result Comment: Interpretation-------- <3 Negative >=3 Positive Performed By: #### C BCA, 90305-2, C34, 32569-5, CMP, 1988-5, ENAP, 53057-8, 99072-5, 66338-7, 5130-0, 62324-5 #### [facility] ([id number]) [address] [place] [address], [address] [place] [address] #### 45599-2, NAIFA #### [facility] ([id number]) [address] [place] [address], [place] [address] Start: 11-02-2022 Adult depression scr eening assessment Bong Phelan SENIOR CONSUMER INSIGHTS CONSULTANT-SOAP DRIER OPERATOR Work Phone: Start: 01-18-2021 Antibody screen LYSSA PARK Comment on above: Performed By: #### 3 [id number] #### [address] Plan of Treatment Date Care Activity Detail Author Start: 05-05-2029 DTaP,Tdap and Td Vaccines (3 - Td or Tdap) DTaP,Tdap and Td Vaccines (3 - Td or Tdap) [facility] Start: 04-06-2024 Tobacco Screening Tobacco Screening [facility] Start: 03-01-2024 Tobacco Screening Tobacco Screening [facility] Start: 12-07-2023 Adult BMI Screening Adult BMI Screen ing [facility] Start: 11-11-2023 Influenza vaccination Influenza Vacc ine [facility] Start: 11-03-2023 Depression Screening Depression Scre ening [facility] Start: 05-24-2023 End: 05-23-2024 XR Knee - left 3 Views X-ray knee left 3 views Imaging Routine Chronic pain of left knee Expected: 05/24/2023, Expires: 05/23/2024 [employer] Work Phone: Comment on above: Expected: 05/24/2023 , Expires: 05/23/2024 Start: 05-04-2023 End: 05-04-2024 MRCP Abdomen WO and W contrast IV MRCP with MRI abdomen with and without contrast Imaging Routine Epigastric pain Hepatic steatosis Expected: 05/04/2023, Expires: 05/04/2024 [employer] Work Phone: Comment on above: Expected: 05/04/2023 , Expires: 05/04/2024 Start: 05-01-2023 End: 05-01-2024 CT Abdomen and Pelvis WO contrast CT abdomen and pelvis without contrast Imaging STAT Acute cystitis without hematuria Expected: 05/01/2023, Expires: 05/01/2024 [employer] Work Phone: Comment on above: Expected: 05/01/2023 , Expires: 05/01/2024 Start: 04-30-2023 End: 04-30-2023 Telemedicine consultation with patient 04/30/2023 10:30 AM EST Telemedicine [facility] [address] [id number] Darlin Holland MD [address] [address] [facility] Start: 11-10-2022 COVID-19 Vaccine ( season) COVID-19 Vaccine () [facility] Start: 11-10-2022 Influenza vaccination Influenza Vacc ine [facility] Start: 10-17-2022 Adult BMI Follow Up Plan Adult BMI Follow Up Plan [facility] End: 04-24-2024 Bacteria identified in Urine by Culture Urine culture (clean catch) Microbiology Routine Acute cystitis without hematuria 1 Occurrences starting 04/24/2023 until 04/24/2024 [facility] [employer] Comment on above: 1 Occurrences starti ng 04/24/2023 until 04/24/2024 End: 06-10-2024 Hemoglobin A1c/Hemoglobin.total in Blood Hemoglobin A1c Lab Routine Pre-diabetes 1 Occurrences starting 06/11/2023 until 06[facility]10[facility] Comment on above: 1 Occurrences starti ng 06/11/2023 until 06/10/2024 End: 04-24-2024 Urinalysis Urinalysis (clean catch) Lab Routine Acute cystitis without hematuria 1 Occurrences starting 04/24/2023 until 04/24/2024 [employer] Work Phone: Comment on above: 1 Occurrences starti ng 04/24/2023 until 04/24/2024 Immunizations Immunization Date Immunization Notes Care Provider Fa [facility] 01-11-2022 Covid-19, Mrna, Lnp- s, Bivalent, Pf, 50mcg/0.5ml or 25mcg/0.25ml Bong Dothan SENIOR CONSUMER INSIGHTS CONSULTANT-SOAP DRIER OPERATOR Work Phone: [facility] 01-11-2022 influenza, injectabl e, quadrivalent, preservative free Bong Dothan SENIOR CONSUMER INSIGHTS CONSULTANT-SOAP DRIER OPERATOR Work Phone: [facility] 01-11-2022 influenza virus vaccine, unspecified formulation Bong Zhane SENIOR CONSUMER INSIGHTS CONSULTANT-SOAP DRIER OPERATOR Work Phone: [facility] 01-17-2021 influenza, injectabl e, quadrivalent, preservative free Bong Dothan SENIOR CONSUMER INSIGHTS CONSULTANT-SOAP DRIER OPERATOR Work Phone: [facility] 07-13-2020 COVID-19, mRNA, LNP- S, PF, 100mcg/0.5mL Dose Bong Dothan SENIOR CONSUMER INSIGHTS CONSULTANT-SOAP DRIER OPERATOR Work Phone: [facility] 06-15-2020 COVID-19, mRNA, LNP- S, PF, 100mcg/0.5mL Dose Bong Dothan SENIOR CONSUMER INSIGHTS CONSULTANT-SOAP DRIER OPERATOR Work Phone: [facility] 02-17-2020 Influenza, injectabl e, Madin [place] Canine Kidney, preservative free, quadrivalent Bong Dothan SENIOR CONSUMER INSIGHTS CONSULTANT-SOAP DRIER OPERATOR Work Phone: [facility] 05-05-2019 tetanus toxoid, reduced diphtheria toxoid, and acellular pertussis vaccine, adsorbed [facility] 11-14-2018 tetanus toxoid, reduced diphtheria toxoid, and acellular pertussis vaccine, adsorbed Bong Dothan SENIOR CONSUMER INSIGHTS CONSULTANT-SOAP DRIER OPERATOR Work Phone: [facility] 07-23-2018 hepatitis B vaccine, adult dosage Bong Dothan SENIOR CONSUMER INSIGHTS CONSULTANT-SOAP DRIER OPERATOR Work Phone: [facility] 01-23-2018 hepatitis B vaccine, adult dosage Bong Zhane SENIOR CONSUMER INSIGHTS CONSULTANT-SOAP DRIER OPERATOR Work Phone: [facility] 12-25-2017 hepatitis B vaccine, adult dosage Bong Dothan SENIOR CONSUMER INSIGHTS CONSULTANT-SOAP DRIER OPERATOR Work Phone: [facility] Payers Date Payer Category Payer Medicaid [id number] 2022 Medicaid [place] [id number] 2022-Present [address] [place] [address] [id number] 1975 Unknown [id number] [id number]. 593 1975 Unknown [id number] 2.16.840.1.939378.3.579.2. 647 1975 Unknown [id number] 2.16.840.1.682571.3.579.2. 727 1975 Unknown [id number] 2.16.840.1.618079.3.579.2. 1973 Unknown [id number] 2.16.840.1.577980.3.579.2. 1285 1973 Unknown [id number] 2.16.840.1.501171.3.579.2. 1285 1973 Unknown [id number] 2.16.840.1.194972.3.579.2. 1285 1973 Unknown [id number] 2.16.840.1.374344.3.579.2. 1285 1973 Unknown [id number] 2.16.840.1.582253.3.579.2. 1285 1973 Unknown [id number] 2.16840.1.199081.3.579.2. 1285 1973 Unknown [id number] 2.16840.1.297795.3.579.2. 1285 1973 Unknown [id number] 2.16.840.1.452004.3.579.2. 1285 1973 Unknown [id number] 2.16840.1.939085.3.579.2. 1285 1973 Unknown [id number] 2.16840.1.294453.3.579.2. 1285 1973 Unknown [id number] 2.16840.1.470102.3.579.2. 1286 1959 Private Health Insurance [id number] Private Health Insurance [facility] [id number] Private Health Insurance [employer] [place] [id number] Self-pay Self Pay [id number] Unknown [id number] Unknown Jacquelyn VU/ARTURO [id number] Social History Date Type Detail Facility [facility] Work Phone: Start: 1975 Sex Assigned At Female F [facility] Start: 03-25-2020 End: 03-01-2023 Sex Assigned At [facility] Start: 12-29-2021 [facility] tobacco [facility] Start: 12-29-2021 Tobacco use and exposure Smokeless tobacco non-user [facility] Start: 03-01-2023 End: 04-06-2023 Alcohol intake Current drinker of alcohol (finding) [facility] Start: 03-25-2020 End: 03-01-2023 History of Social function [facility] How hard is it for y ou to pay for the very basics like food, housing, medical care, and heating Somewhat hard [facility] Adolescent depressio n screening assessment 0 [facility] Start: 12-27-2020 Alcohol Comment [facility] Start: 1975 Sex Assigned At Not on file P [facility] Clinical Notes 02-07-2022 to 05-17-2023 Telephone Encounter - Xochitl Muir - 05/17/2023 11:00 AM ESTTelephone Encounter - Xochitl Muir - 05/17/2023 11:00 AM Gordon Holland MD - 04/30/2023 10:30 AM EST Note Date & Type Note Facility 05-17-2023 Miscellaneous Notes Patient requesting a 90 day supply of Omeprazole. documented in this encounter [facility] 05-17-2023 Telephone encounter Note Patient requesting a 90 day supply of Omeprazole. [facility] 04-30-2023 History of Present illness Narrative Images from the original note were not included. [address] [facility] [address] [facility] [id number] Date of Service: 04/30/2023 Video Visit via Real-time Synchronous Audiovisual Provider Location: [facility] [address] [facility] [id number] Patient Location: Patient's home Patient Location Computer Aided Design Designer: None Video Visit Consent Statement: I discussed risks, benefits, and alternatives of a real-time synchronous audiovisual consultation with the patient (and any accompanying persons) including the risks that the patient's personal health details and medical records will be discussed over real-time, synchronous, interactive video/audio/telecommunication technology, the visit will not be recorded without the express consent of both the provider and the patient, and that there are some limitations compared to [id number] evaluations. We elected to proceed. Chief Complaint: Pain SUBJECTIVE: Navdeep Palma is a 47 y.o. female who came to rheumatology clinic for follow up evaluation of having history of lupus. The problem has been present for several years. Patient was seeing Dr. Downs until 2020 when she had to move to [place] but patient is back to the city and she is transferring her care. She has obesity and sleep apnea. She has osteoarthritis and fibromyalgia. Current Symptoms include pain, tenderness to touch, swelling, morning stiffness, lasting from 15 minutes to 45 minutes of left knee, right knee, left wrist, right wrist, left hand, and right hand. Onset was gradual. The symptoms are of moderate and severe severity. They are made worse by: cold exposure, standing, and walking. They are helped by nothing. Associated symptoms include: She denies hx of photosensitivity, she has dry eye/mouth, no recurrent oral/nasal ulcer, she has Raynaud's, no DVT/PE, no miscarriage but had 2 ectopic before, no pleurisy. Her energy is very low, denies patchy hair loss. Previously used rheumatologic medications include Immuran - Problems: none. Limitation on activities include: difficulty with walking and difficulty with ADLs . Rheumatology Family Hx: LUPUS Relation to patient: Father's sister. Previous Meds tried: Plaquenil: Vision problem Imuran: No problem Previous Procedures: REVIEW OF SYSTEMS: CONSTITUTIONAL: Admits: [] Weight Loss [] Fever [] Frequent Night Sweats OPHTHALMOLOGIC: Admits: [] Glaucoma [] History or Current Inflammatory Eye Disease [] Cataracts ENT: Admits: [] Oral/Nasal Ulcers [] epistaxis [] Recurrent Sinusitis [] Dry Eyes [] Dry mouth CARDIOVASCULAR: Admits: [] Chest pain [] Pericarditis/Pleuritis [] Palpitations [] Edema RESPIRATORY: Admits: [] hemoptysis [x] Dyspnea on Exertion [] Cough [] Wheezing GASTROINTESTINAL: Admits: [] Bloody Stool [] Diarrhea [] Vomitting GENITOURINARY: Admits: [] Blood in urine [] Genital Ulcers [] Burning/pain with urination MUSCULOSKELETAL: Admits: [] Muscle Pain [x] Joint Pain INTEGUMENTARY: Admits: [] Skin changes [] Sclerodactyly [x] Raynauds [] Photosensitivity [] Alopecia NEUROLOGIC: Admits: [] Recurrent Headaches [] Limb Weakness [] Numbness/Tingling PSYCHIATRIC: Admits: [] Insomnia [] Depression [] Anxiety ENDOCRINE: Admits: [] Thyroid abnormalities HEMATOLOGY/LYMPH: Admits: [] Notable Swollen Lymph Nodes [] History of Cytopenias [] Bruising tendency [] History of DVT/PE All non checked boxes, patient denies. All other 10 point ROS reviewed and negative. PHYSICAL EXAMINATION: Constitutional: There were no vitals taken for this visit.: reviewed Comfortable, pleasant, no acute distress Eyes: Conjunctiva clear and moist, eyelids without lesions. Extraocular movements fully intact. Ears/Nose/Mouth/Throat: External inspection of ears/nose is normal - no scars, lesions, masses No oral ulcers or lesions on mucosa of inner mouth, tongue. Neck: Symmetrical, tongue midline, no masses, no lymphadenopathy, no thyromegaly Respiratory: Inspiratory and expiratory effort normal. Clear to auscultation bilaterally. No crackles or wheezes. Cardiovascular: Palpation of heart reveals normal PMI. Auscultation: regular rate rhythm, no murmurs/rubs/gallops. Carotid arteries symmetric and 2+. No edema of extremities Gastrointestinal: Soft, nontender, bowel sounds in all quadrants. No hepatosplenomegaly on palpation. Lymphatic: No lymphadenopathy in neck Neurologic: Facial muscles symmetric and of normal strength. Tongue is midline. Dermatologic: Inspection and palpation of skin and subcutaneous tissue of all four extremities without rashes Nailfold capillary exam normal Psychiatric: Normal affect. Judgement/insight intact. Musculoskeletal: Neck: Full ROM. no swelling, No tenderness, Shoulder: Bilateral full active ROM. no swelling, No tenderness, Elbows: Full ROM. no swelling, No tenderness, Wrists: Full ROM. no swelling, No tenderness, Hands: Full ROM. no swelling, No tenderness, Hips: Normal ROM. No swelling, No tenderness, Knees: Normal ROM, no swelling, No tenderness, Feet: Full ROM. no swelling, No tenderness, Ankles: Normal ROM,no swelling, No tenderness, Spine: no tenderness throughout spine, no sacroiliac joint tenderness Labs & Imaging: Labs and Imaging reviewed and discussed with the patient during the visit. Lab Results Component Value Date C3 120 03/01/2023 C4 13 (L) 03/01/2023 Lab Results Component Value Date WBC 2.6 (L) 03/01/2023 HGB 12.8 03/01/2023 HCT 38.6 03/01/2023 MCV 94 03/01/2023 PLT 402 03/01/2023 Lab Results Component Value Date CREATININE 0.65 03/01/2023 BUN 6 03/01/2023 K 3.8 03/01/2023 CL 106 03/01/2023 CO2 25 03/01/2023 Lab Results Component Value Date ALT 13 03/01/2023 AST 18 03/01/2023 ALKPHOS 86 03/01/2023 Lab Results Component Value Date SEDRATE 59 (H) 03/01/2023 Lab Results Component Value Date CRP 0.9 (H) 03/01/2023 No results found. ASSESSMENT/PLAN: Diagnoses and all orders for this visit: Lupus ([facility]) - lupus was diagnosed several years ago based on having positive JACQUIE, low complement, positive SSA - She denies hx of photosensitivity, she has dry eye/mouth, no recurrent oral/nasal ulcer, she has Raynaud's, no DVT/PE, no miscarriage but had 2 ectopic before, no pleurisy. Her energy is very low, denies patchy hair loss. - Plaquenil made vision problem. Has been on Imuran 100 mg b.i.d. - she has leukopenia - serologies are all active for lupus disease and she has no kidney or liver disease. She can benefit from either Saphnelo low or Benlysta as adding treatment. If she can get the infusion I prefer to go with Saphnelo. - [facility] - [place], [place] Lumbosacral spondylosis without myelopathy - she is been morbidly obese -she should try more physical therapy and losing weight Class 3 severe obesity due to excess calories without serious comorbidity with body mass index (BMI) of 50.0 to 59.9 in adult ([facility]) - she had gastric sleeve surgery before and lost about 100 lb but unfortunately gained most of that back being on a steroid in the past. Primary osteoarthritis of left knee - she is morbidly obese and makes the knee arthritis worse - injections can be tried Medication monitoring encounter We have discussed with potential adverse effects with use of biologics including but not limited to suppression of immune system making pt more prone to infections, to hold the medication if he/she has any signs of any infection and to restart only after infection has cleared, reactivation of infections particularly TB and hepatitis B, C, risk of malignancy, risk of demyelinating disorders and to stop medication immediately if he/she notes any weakness or paraesthesias - Glucose 6 phosphate dehydrogenase; Future - Mycobacterium TB by Quantiferon Gold; Future Follow up in 8 weeks. Total time spent with the patient face to face was 30 minutes which included obtaining and reviewing history, performing an exam, educating and counseling the patient, communicating test results to the patient. Preparing to see the patient (reviewing all results, history, medications, my office notes, other physician notes), ordering tests/medications/referrals, documenting in the patient's health record time spent was 10 minutes This note was created with the assistance of a speech recognition program. While intending to generate a timely document that accurately reflects the content of the visit, no guarantee can be provided that every grammatical or spelling mistake has been or will be identified or corrected. Thank you for your understanding. [facility] Dr. Darlin Holland M.D. [address] [place] [address], [address] [place] [address] Office: [phone] 04/30/2023 documented in this encounter [facility] History of Present illness Narrative Images from the original note were not included. [facility] [address] [place] [id number] Name: Navdeep Palma : 1975 CHIEF COMPLAINT No chief complaint on file. HISTORY OF PRESENT ILLNESS Navdeep Palma is a 47 y.o. old female who is an established patient seen by [facility] Video visit with a chief complaint of numbness in hands and feet. This call is considered an audio visual visit, which is to help assess your current healthcare needs and to determine the appropriate care you may require. This visit may be a billable service through your insurance company. Do you consent to moving forward with this telephone visit? Yes . Patient is at home. Provider is in the office. Patient has concerns of headaches. Increased frequency. She has taken sumatriptan injections. She hasn't needed one since this past February. Otherwise she takes Tylenol. [facility] She has left sided pain to the left chest area. She has hx of lymph node removal to this area several years ago. The pain is not constant. It is triggered when raising when raising her arm over her head. The pain is alleviated with burping or a percocet. She has had the pain all week. She states she is itching more often. She is on vistaril 50 mg TID PRN. She is only taking it at night. A1C has increased to 6.2. Will recheck 05/31/23. Increase Metformin to 2000 daily. ALLERGIES Allergies Allergen Reactions Gustine [Hydrocodone-Acetaminophen] Itching and Headache Cyclobenzaprine Headache and Hives Hydrochlorothiazide Nausea MEDICATIONS Current Outpatient Medications on File Prior to Visit Medication Sig Dispense Refill acetaminophen (TYLENOL ARTHRITIS) 650 mg 8 hr tablet acetaminophen ER 650 mg tablet,extended release albuterol (PROVENTIL HFA;VENTOLIN HFA) 90 mcg/actuation inhaler Inhale 2 puffs as needed for wheezing. albuterol (PROVENTIL,VENTOLIN) 2.5 mg /3 mL (0.083 %) nebulizer solution Inhale 3 mL (2.5 mg total) by nebulization as needed for wheezing. amLODIPine (NORVASC) 10 mg tablet Take 1 tablet (10 mg total) by mouth in the morning. 30 tablet 11 ascorbic acid (VITAMIN C ORAL) Take 500 mg by mouth daily. atogepant (QULIPTA) 60 mg tablet Take 60 mg by mouth in the morning. 30 tablet 0 azaTHIOprine (IMURAN) 100 mg tablet TAKE 1 TABLET BY MOUTH TWICE A DAY 60 tablet 1 baclofen (LIORESAL) 10 mg tablet 1 tablet as needed Orally prn cholecalciferol, vitamin D3, (VITAMIN D3 ORAL) Take 2,000 Unit by mouth daily. diclofenac (VOLTAREN) 75 mg EC tablet Take 1 tablet (75 mg total) by mouth in the morning and 1 tablet (75 mg total) before bedtime. 60 tablet 1 DULoxetine (CYMBALTA) 60 mg capsule Take 1 capsule (60 mg total) by mouth in the morning. hydrOXYzine (ATARAX) 50 mg tablet Take 1 tablet (50 mg total) by mouth nightly. hydrOXYzine (VISTARIL) 50 mg capsule Take 1 capsule (50 mg total) by mouth 3 (three) times a day as needed for itching. 270 capsule 0 ibuprofen (MOTRIN) 800 mg tablet Take 1 tablet (800 mg total) by mouth 3 (three) times a day. 21 tablet 0 lidocaine (LIDODERM) 5 % Place 1 patch on the skin daily. Remove & Discard patch within 12 hours or as directed by MD 10 patch 0 montelukast (SINGULAIR) 10 mg tablet Take 1 tablet (10 mg total) by mouth in the morning. multivitamin (THERAGRAN) tablet Take 1 tablet by mouth in the morning. naproxen (NAPROSYN) 500 mg tablet Take 1 tablet (500 mg total) by mouth in the morning and 1 tablet (500 mg total) in the evening. Take with meals. 60 tablet 0 orphenadrine (NORFLEX) 100 mg 12 hr tablet Take 1 tablet (100 mg total) by mouth 2 (two) times a day as needed for muscle spasms. 10 tablet 0 oxyCODONE-acetaminophen (PERCOCET) 7.5-325 mg per tablet Take 1 tablet by mouth every 6 (six) hours as needed for pain. Max Daily Amount: 4 tablets 20 tablet 0 sodium chloride (OCEAN NASAL) 0.65 % nasal spray Administer 1 spray into each nostril as needed for rhinitis. 15 mL 12 SUMAtriptan succinate 6 mg/0.5 mL needle-free injector Inject 0.5 mL (6 mg total) under the skin as needed (migraine headache). tirzepatide, weight loss, 2.5 mg/0.5 mL pen injector Inject 2.5 mg under the skin every 7 days. 3 mL 1 tiZANidine (ZANAFLEX) 2 mg tablet Take 1 tablet (2 mg total) by mouth every 6 (six) hours as needed. (Patient not taking: Reported on 12/06/2022) No current facility-administered medications on file prior to visit. MEDICAL/SURGICAL/FAMILY HISTORY Past Medical History: Diagnosis Date Abnormal stress test Allergic Asthma Back pain Chronic pain disorder CPAP (continuous positive airway pressure) dependence Echocardiogram abnormal EKG abnormality Essential hypertension 02/07/2021 Fibromyalgia, primary Joint pain Low back pain Lupus (systemic lupus erythematosus) ([facility]) Migraine Murmur, cardiac Obesity Osteoarthritis Osteoarthritis Pneumonia Sleep apnea Tooth loose Upper back pain Past Surgical History: Procedure Laterality Date SECTION three ECTOPIC SURGERY two GASTRECTOMY sleeve HYSTERECTOMY 2008 COMPLETE INJECTION BLOCK NERVE KNEE Left Genicular Left 08/25/2022 Performed by Albert Jones MD at [facility] INJECTION BLOCK NERVE KNEE right genicular Right 05/16/2021 Performed by Albert Jones MD at [facility] JOINT REPLACEMENT Right 02/09/2021 LYMPH NODE DISSECTION bilateral axillae x2 OOPHORECTOMY Bilateral 2008 RADIO FREQUENCY ABLATION L 4/5,5/S1 Left 08/04/2016 Performed by Albert Jones MD at [facility] RADIO FREQUENCY ABLATION L4/5,5/S1 Right 08/21/2016 Performed by Albert Jones MD at [facility] REPLACEMENT TOTAL KNEE Right 2020 TUBAL LIGATION x2 Family History Problem Relation Age of Onset Cancer Mother Lung cancer Mother Arthritis Mother Migraines Father Arthritis Father Breast cancer Maternal Aunt Heart disease Maternal Grandmother Hypertension Maternal Grandmother Kidney disease Maternal Grandmother Heart disease Maternal Uncle Hypertension Maternal Uncle Asthma Daughter Hypertension Brother SOCIAL HISTORY Social History Socioeconomic History Marital status: Single Spouse name: Not on file Number of children: Not on file Years of education: Not on file Highest education level: Not on file Occupational History Not on file Tobacco Use Smoking status: Never Smokeless tobacco: Never Vaping Use Vaping Use: Never used Substance and Sexual Activity Alcohol use: Yes Comment: RARELY Drug use: No Sexual activity: Defer Other Topics Concern Caffeine Use Yes Social History Narrative Not on file Social Determinants of Health Financial Resource Strain: Medium Risk (05/04/2022) Overall Financial Resource Strain (CARDIA) Difficulty of Paying Living Expenses: Somewhat hard Food Insecurity: No Food Insecurity (11/02/2022) Hunger Screening Food Insecurity - Worry: Never True Food Insecurity - Inability: Never True Transportation Needs: No Transportation Needs (05/04/2022) PRAPARE - Transportation Lack of Transportation (Medical): No Lack of Transportation (Non-Medical): No Physical Activity: Not on file Stress: Not on file Social Connections: Not on file Interpersonal Safety: Not on file Housing Instability: Low Risk (05/04/2022) Housing Instability Housing Instability: No Social History Tobacco Use Smoking Status Never Smokeless Tobacco Never REVIEW OF SYSTEMS Review of Systems Constitutional: Positive for fatigue. HENT: Negative. Respiratory: Negative. Cardiovascular: Negative. Gastrointestinal: Negative. Genitourinary: Negative. Musculoskeletal: Positive for arthralgias and joint swelling. Skin: Negative. Neurological: Positive for headaches. PHYSICAL EXAMINATION Vitals and rest of the physical examination were unable to be completed by the provider today as the patient presented via telephone/video. ASSESSMENT & PLAN Encounter Diagnoses Name Primary? Gastroesophageal reflux disease without esophagitis Yes Urinary frequency Chest discomfort Pre-diabetes I will plan to have the patient return in approximately PRN for a follow up. The patient was given standard warnings and instructed to call the office with any questions or concerns. A total of approximately 20 minutes spent with the patient today using the Telehealth/video software in Dot. This was performed en lieu of a [id number] office visit due to the current COVID-19 pandemic. JILL Bower APRN-CNP 04/10/23 [id number] documented in this encounter [facility] 03-09-2023 Miscellaneous Notes Pharmacy requesting clarification on contradictory sig. Had stated take 2 500 tablets, but also take one tablet with breakfast. Updated to only say take 2 tablets due to increasing patient's dose to 1,000 mg per day. [facility] Tele[facility] encounter Note Pharmacy requesting clarification on contradictory sig. Had stated take 2 500 tablets, but also take one tablet with breakfast. Updated to only say take 2 tablets due to increasing patient's dose to 1,000 mg per day. [facility] 02-07-2022 Evaluation note Encounter Date Diagnosis Assessment Notes Jan, Contact with and (suspected) exposure to other viral communicable diseases (ICD-10 - Z20.828) Jan, Lumbar pain (ICD-10 - M54.50) Take medications as directed. Use caution when operating machinery with muscle relaxer as it may cause drowsiness. Alternating heat and ice to area 3-4 times per day. Rest a lot Follow up with primary care if there is no symptom improvement within the next week, sooner if symptoms worsen or new symptoms occur. Jan, Medication refill (ICD-10 - Z76.0) Take medication as directed. Keep appointment with cardiology for blood pressure medications [facility] [employer] Other Evaluyrkid noteNo assessment information [facility] Work Phone: evaluation noteNo InformationNortEncompass Health [facility] [employer] Other Evaluation note* Diagnosis Pre-diabetes- Primary Other abnormal glucose documented in this encounter [facility] SystemEvaluation note* Diagnosis Other forms of systemic lupus erythematosus, unspecified organ involvement status ([facility])- Primary Pre-diabetes Other abnormal glucose documented in this encounter [facility] SystemEvaluation note* Diagnosis Pre-diabetes Other abnormal glucose documented in this encounter [facility] SystemEvaluation note* Diagnosis Gastroesophageal reflux disease without esophagitis- Primary Esophageal reflux Urinary frequency Chest discomfort Other chest pain Pre-diabetes Other abnormal glucose Chest discomfort Other chest pain documented in this encounter [facility] SystemEvaluation note* Diagnosis Acute cystitis without hematuria- Primary documented in this encounter [facility] SystemEvaluation note* Diagnosis Lupus ([facility])- Primary Systemic lupus erythematosus Lumbosacral spondylosis without myelopathy Class 3 severe obesity due to excess calories without serious comorbidity with body mass index (BMI) of 50.0 to 59.9 in adult ([facility]) Primary osteoarthritis of left knee Medication monitoring encounter Encounter for therapeutic drug monitoring documented in this encounter [facility] SystemEvaluation note* Diagnosis Acute cystitis without hematuria- Primary [facility] Diagnosis Hepatic steatosis- Primary Other chronic nonalcoholic liver disease [facility]* Diagnosis Epigastric pain- Primary Abdominal pain, epigastric Hepatic steatosis Other chronic nonalcoholic liver disease Other forms of systemic lupus erythematosus, unspecified organ involvement status (CMS-HCC) documented in this encounter [facility] SystemEvaluation note* Diagnosis Pre-diabetes Other abnormal glucose documented in this encounter [facility] SystemEvaluation note* Diagnosis Gastroesophageal reflux disease without esophagitis Esophageal reflux documented in this encounter [facility] SystemEvaluation note* Diagnosis Chronic pain of left knee- Primary Arthritis of left knee documented in this encounter [facility] System[facility] note* Diagnosis Gastroesophageal reflux disease without esophagitis Esophageal reflux documented in this encounter [facility] System[facility] note* Diagnosis Pre-diabetes- Primary Other abnormal glucose documented in this encounter [facility] SystemEvaluation note* Diagnosis Other forms of systemic lupus erythematosus, unspecified organ involvement status ([facility]) documented in this encounter [facility] SystemHistory general Narrative - Reported* Type Description Date Medical History asthma Medical History Hypertension Medical History neuropathy Medical History migraine headache Surgical History knee replacement Right 2020 Surgical History Gastric Sleeve 2018 Hospitalization History see above [facility] Other InstructionsNot on filedocumented in this encounter [facility] filedocumented in this encounter [facility] on filedocumented in this encounter [facility] on filedocumented in this encounter [facility]Not on filedocumented in this encounter [facility]Not on filedocumented in this encounter [facility]Not on filedocumented in this encounter [facility] System[facility]ructionsNot on filedocumented in this encounter [facility] Consultation (Routine) - Pending Review Specialty Diagnoses / Procedures Referred By Chris t Referred To Contact Orthopedic Surgery Diagnoses Chronic pain of left knee Arthritis of left knee Bong Phelan APRN-CNP [address] [place] [address] Meño Sy MD [address] [place] [address] Referral ID Status Reason Start Date Expiration Date Visits Requested Visits Authorized [id number] Pending Review Specialty Services Required 05/24/2023 05/23/2024 1 1 [facility] Summary Purpose Family History No Family History Records Found Relationship Condition Age at Onset Recorded Date/T feli brother Disorder of lung Unknown brother Neurological deficit present Unknown Not Specified Malignant neoplasm of pancreas Unknown Malignant neoplasm of lung Unknown Advance Directives No Advanced Directives Records FoundNo Advanced Directives Records FoundNo Advanced Directives Records FoundNo Advanced Directives Records FoundNo Advanced Directives Records FoundNo Advanced Directives Records Found Reason for Referral Specialty Diagnoses / Procedures Referred By Chris benton Referred To Contact Radiology Diagnoses Epigastric pain Hepatic steatosis Procedures MRCP with MRI abdomen with and without contrast Bong Phelan APRN-CNP [address], [facility] [address] [place] [address] Referral ID Status Reason Start Date Expiration Date V isits Requested Visits Authorized [id number] Authorized 05/04/2023 05/03/2024 1 1 Specialty Diagnoses / Procedures Referred By Chris t Referred To Contact Radiology Diagnoses Acute cystitis without hematuria Procedures CT abdomen and pelvis without contrast Bong Phelan APRN-CNP [address] [place] [address] Referral ID Status Reason Start Date Expiration Date V isits Requested Visits Authorized [id number] Authorized 05/01/2023 04/30/2024 1 1 Additional Source Comments INFORMATION SOURCE (unrecogn ized section and content) DATE CREATED AUTHOR 03/31/2018 [facility] DATE CREATED AUTHOR AUTHOR'S ORGANIZ ATION 04/11/2021 [facility] DATE CREATED AUTHOR AUTHOR'S ORGANIZ ATION 11/12/2022 Orellana Dayton [facility] DATE CREATED AUTHOR AUTHOR'S ORGANIZ ATION 07/05/2023 [facility] DATE CREATED AUTHOR AUTHOR'S ORGANIZ ATION 07/13/2023 DATE CREATED AUTHOR AUTHOR'S ORGANIZ ATION 07/17/2023 [facility] Goals (unrecognized section and content) Goals may be documented in a n alternate sectionNo InformationNo InformationNo InformationNot on filedocumented as of this encounterNot on filedocumented as of this encounterNot on filedocumented as of this encounterNot on filedocumented as of this encounterNot on filedocumented as of this encounterNot on filedocumented as of this encounterNot on filedocumented as of this encounterNot on filedocumented as of this encounterNot on filedocumented as of this encounterNot on filedocumented as of this encounterNot on filedocumented as of this encounterNot on filedocumented as of this encounterNot on filedocumented as of this encounterNot on filedocumented as of this encounterNot on filedocumented as of this encounterNot on filedocumented as of this encounterNot on filedocumented as of this encounterNot on filedocumented as of this encounterNot on filedocumented as of this encounter REASON FOR VISIT (unrecogniz ed section and content) Reason Onset Date Comments Med Refill 03/09/2023 Reason Comments Med Refill Reason Onset Date Comments Med Refill 05/17/2023 Reason Onset Date Comments Med Refill 05/21/2023 Reason Onset Date Comments Med Refill 06/11/2023 Care Teams (unrecognized sec tion and content) Director Corporate Security Relationship Specialty Start Date End Date Bong Phelan APRN-CNP [address], [facility] [address] [place] [address] PCP - General Family Medicine 05/05/22 Director Corporate Security Relationship Specialty Start Date End Date ZhaneBong APRN-SOAP DRIER OPERATOR [address], [facility] [address] [place] [address] PCP - General [facility] Medicine 05/05/22 Director Corporate Security Relationship Specialty Start Date End Date Dothan, Bong SENIOR CONSUMER INSIGHTS CONSULTANT-SOAP DRIER OPERATOR [address], [facility] [address] [place] [address] PCP - General Family Medicine 05/05/22 Director Corporate Security Relationship Specialty Start Date End Date Dothan, Bong SENIOR CONSUMER INSIGHTS CONSULTANT-SOAP DRIER OPERATOR [address], [place] [address] PCP - General [facility] Medicine 05/05/22 Director Corporate Security Relationship Specialty Start Date End Date Dothan, ROSA ChristiansonN-SOAP DRIER OPERATOR [address], [place] [address] PCP - General [facility] Medicine 05/05/22 Director Corporate Security Relationship Specialty Start Date End Date Dothan, Bong SENIOR CONSUMER INSIGHTS CONSULTANT-SOAP DRIER OPERATOR [address], [place] [address] PCP - General Family Medicine 05/05/22 Director Corporate Security Relationship Specialty Start Date End Date Dothan, Bong SENIOR CONSUMER INSIGHTS CONSULTANT-SOAP DRIER OPERATOR [address], [place] [phone] PCP - [facility] 05/05/22 Director Corporate Security Relationship Specialty Start Date End Date Zhane Bong MARCUSSOAP DRIER OPERATOR [address], [address] PCP [facility] 05/05/22 Director Corporate Security Relationship Specialty Start Date End Date Dothan, MARCUS ChristiansonSOAP DRIER OPERATOR [address], [address] PCP [facility] 05/05/22 Director Corporate Security Relationship Specialty Start Date End Date DothanBong APRN-SOAP DRIER OPERATOR [address], [place] [phone] [facility] 05/05/22 Director Corporate Security Relationship Specialty Start Date End Date Zhane JILL Christianson [address], [place] [phone] [facility] 05/05/22 FOR RECORDS PERTAINING TO PATIENTS WHO ARE OR HAVE BEEN ENROLLED IN A CHEMICAL DEPENDENCY/SUBSTANCEABUSE PROGRAM, SOME INFORMATION MAY BE OMITTED. This clinical summary was aggregated from multiple sources. Caution should be exercised in using it in the provision of clinical care. This summary normalizes information from multiple sources, and as a consequence, information in this document may materially change the coding, format and clinical context of patient data. In addition, data may be omitted in some cases. CLINICAL DECISIONS SHOULD BE BASED ON THE PRIMARY CLINICAL RECORDS. [facility] [employer] [facility]. provides no warranty or guarantee of the accuracy or completeness of information in this document.
[2023-07-25 14:10] LABS: Age Gdln ACOG Testing Note (.); HPV Aptima Positive (Negative); IGP, Aptima HPV, rfx 16/18,45 Note (.)
== END 2023-07-18 20:06 | disposition home or self-care (01) ==
LOC: LAB 20:05
PROVIDERS: Visit Provider Physician Assistant
DX: Z01.419 Encounter for gynecological examination (general) (routine) without abnormal findings (principal)
CPT/HCPCS: 87624; G0145

== ENCOUNTER 2024-02-11 19:54 | Outpatient (REF) | payer MEDICAID, SELFPAY ==
--- OUTSIDE RECORDS SUMMARY | 2024-02-11 20:03 | XMS_ITS | CCD ---
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, Bong Primary Care [facility] er YULISA Barrera Primary Care Provider MD Jonny Bentley Admit Provider MD Jonny Bentley Attending Provider SHENDGE, VITHAL Referring Unavailable SHENDGE, VITHAL Attending Unavailable SHENDGE, VITHAL Attending Unavailable SHENDGE, VITHAL Attending Unavailable SHENDGE, VITHAL Admitting Unavailable SHENDGE, VITHAL Attending Unavailable SHENDGE, VITHAL Referring Unavailable SHENDGE, VITHAL Referring Unavailable SHENDGE, VITHAL Referring Unavailable SHENDGE, VITHAL Referring Unavailable BOBBI ORTIZ Attending Unavailable ZHANE, BONG Referring Unavailable ZHANE, BONG Primary Care Unavailable NEENA DEL CASTILLO Attending Unavailable ZHANE, BONG Referring Unavailable ZHANE, BONG Primary Care Unavailable ZHANE, BONG Referring Unavailable ZHANE, BONG Primary Care Unavailable FARRUKH WILCOX Referring Unavailable ZHANE, BONG Primary Care Unavailable ZHANE, BONG Referring Unavailable ZHANE, BONG Primary Care Unavailable ZHANE, BONG Referring Unavailable ZHANE, BONG Primary Care Unavailable JORDYN MOREIRA Attending Unavailable ZHANE, BONG Referring Unavailable ZHANE, BONG Primary Care Unavailable GINA BOURGEOIS Attending Unavailable ZHANE, BONG Referring Unavailable ZHANE, BONG Primary Care Unavailable ZHANE, BONG Attending Unavailable ZHANE, BONG Referring Unavailable ZHANE, BONG Primary Care Unavailable ZHANE, BONG Referring Unavailable ZHANE, BONG Primary Care Unavailable ZHANE, BONG Referring Unavailable ZHANE, BONG Primary Care Unavailable ZHANE, BONG Primary Care Unavailable CHITO TORO Attending Unavailable ZHANE, BONG Primary Care Unavailable HEATHER HUMPHREY Unavailable NEENA DEL CASTILLO Attending Unavailable NEENA DEL CASTILLO Referring Unavailable ZHANE, BONG Primary Care Unavailable NEENA DEL CASTILLO Referring Unavailable ZHANE, BONG Primary Care Unavailable JORDYN MOREIRA Attending Unavailable ZHANE, BONG Referring Unavailable ZHANE, BONG Primary Care Unavailable ZHANE, BONG Referring Unavailable ZHANE, BONG Primary Care Unavailable ZHANE, BONG Referring Unavailable ZHANE, BONG Primary Care Unavailable ZHANE, BONG Attending Unavailable ZHANE, BONG Referring Unavailable ZHANE, BONG Primary Care Unavailable FARRUKH WILCOX Attending Unavailable ZHANE, BONG Referring Unavailable ZHANE, BONG Primary Care Unavailable GEWILBERINGJAVAN Attending Unavailable ZHANE, BONG Referring Unavailable ZHANE, BONG Primary Care Unavailable JAVAN EMERSON Referring Unavailable ZHANE, BONG Primary Care Unavailable [...] Referring Unavailable ZHANE, BONG Primary Care Unavailable LOGAN, MURAD H Admitting Unavailable LOGAN, MURAD H Attending Unavailable TOROCHITO A Referring Unavailable ZHANE, BONG Primary Care Unavailable YOANA CHAVES Consulting Unavailable TOROCHITO Referring Unavailable ZHANE, BONG Primary Care Unavailable BOMMANA, LUDWIN GOPALA R Admitting Unavailab le BOMMANA, LUDWIN GOPALA R Attending Unavailab le HUMPHREYHEATHER Referring Unavailable ZHANE, BONG Primary Care Unavailable YOANA CHAVES Consulting Unavailable [facility] Consulting Unavailable HUMPHREYHEATHER Referring Unavailable ZHANE, BONG Primary Care Unavailable ZHANE, BONG Attending Unavailable ZHANE, BONG Referring Unavailable ZHANE, BONG Primary Care Unavailable ZHANE, BONG Attending Unavailable ZHANE, BONG Referring Unavailable ZHANE, BONG Primary Care Unavailable ZHANE, BONG Attending Unavailable ZHANE, BONG Referring Unavailable ZHANE, BONG Primary Care Unavailable ZHANE, BONG Attending Unavailable ZHANE, BONG Referring Unavailable ZHANE, BONG Primary Care Unavailable DARLIN WILKERSON Attending Unavailable ZHANE, BONG Referring Unavailable ZHANE, BONG Primary Care Unavailable ZHANE, BONG Attending Unavailable ZHANE, BONG Referring Unavailable ZHANE, BONG Primary Care Unavailable Zhane Bong MOSHER Primary Care Provider AINSLEY STACK Attending Unavailable RAMAN RIVERA Attending Unavailable RAMAN RIVERA Attending Unavailable AINSLEY STACK Attending Unavailable Anglim, Jordyn Primary Care Unavailable Jonny Bentley Attending Unavaila ble Jonny Bentley Admitting Unavaila ble Allergies Allergy Classification Reported Allergen(s) Allergy Type Date of Onset Reaction(s) Facility (4 sources) Acetaminophen / HYDROcodone; Translations: [NORCO] Drug Allergy 1 Itchy [facility] Repository (4 sources) cyclobenzaprine; Translations: [FLEXERIL] Drug Allergy 1 Itchy [facility] Repository (20 sources) hydroCHLOROthiazi de; Translations: [hydroCHLOROthiaz jorge] Drug Allergy 0 Nausea [facility] (1 source) Acetaminophen / HYDROcodone; Translations: [acetaminophen-hy drocodone] Drug Allergy 1 [facility] Repository (20 sources) cyclobenzaprine; Translations: [cyclobenzaprine] Drug Allergy 1 Headache, Hives [facility] Repository (20 sources) Acetaminophen / HYDROcodone; Translations: [HYDROCODONE-ACET AMINOPHEN] Drug Allergy 0 [facility] ([facility] sources[facility] Acetaminophen; Translations: [acetaminophen] Drug Allergy 3 Itchy [facility] (2 sources) HYDROcodone; Translations: [hydrocodone] Drug Allergy 3 Itchy [facility] (20 sources) Lisinopril; Translations: [LISINOPRIL] Drug Allergy 4 Cough [facility] Repository Medications Current Medications Medication Drug Class(es) Dates Sig (Normalized) Sig (Original) acetaminophen 300 mg / butalbital 50 mg / caffeine 40 mg oral capsule (1 source) Barbiturate, Central Nervous System Stimulant, Methylxanthine Start: 11-06-2023 take 1 capsule by mouth every four hours Butalbital-Aceta minophen-Caff (Fioricet) 50-300-40 mg capsule Active 1 CAP PO Every 4 hours November 06, 2023 12:00am [id number] 200 actuat albuterol 0.09 mg/actuat metered dose inhaler (20 sources) beta2-Adrenergic Agonist Start: 06-29-2022 take 2 puff(s) by inhalation every four to six hours as needed Albuterol Sulfate HFA 108 (90 Base) MCG/ACT 2 puffs as needed Inhalation every 4-6 hours for 14 days Jun, Active Start: 02-28-2019 End: 11-06-2023 take 1 puff(s) by inhalation every four to six hours Albuterol Sulfate Active 2 PUFF INHALATION EVERY 4-6 HOURS February 28, 2019 5:05pm albuterol (2.5 M G/3ML) 0.083% nebulizer solution Take 2.5 mg by nebulization every 4 (four) hours if needed Active End: 12-14-2023 albuterol (PROVENTIL,VENTOLI N) 2.5 mg /3 mL (0.083 %) nebulizer solution Inhale 3 mL (2.5 mg total) by nebulization as needed for wheezing. 12/14/2023 Discontinued (Stop Taking at Discharge) End: 12-14-2023 albuterol (PROVENTIL HFA;SHERIF TOLIN HFA) 90 mcg/actuation inhaler Inhale 2 puffs as needed for wheezing. 12/14/2023 Discontinued (Stop Taking at Discharge) Albuterol PRN Ac tive amLODIPine 10 mg oral tablet (20 sources) Dihydropyridine Calcium Channel Silvana Start: 11-05-2022 End: 11-16-2023 take 1 tablet by mouth in the morning amLODIPine (Norvasc) 10 MG tablet Take 10 mg by mouth in the morning. 11/05/2022 Active ascorbic acid 500 mg oral capsule (20 sources) Vitamin C Start: 11-06-2023 take 500 mg by mouth once daily Ascorbic Acid (Vitamin C) Active 500 MG PO Daily November 06, 2023 12:00am End: 12-14-2023 take 500 mg by mouth once daily ascorbic acid (VITAMIN C ORAL) Take 500 mg by mouth daily. 12/14/2023 Discontinued (Stop Taking at Discharge) aspirin 325 mg oral tablet (2 sources) Platelet Aggregation Inhibitor, Nonsteroidal Anti-inflammatory Drug Start: 11-06-2023 End: 11-16-2023 take 325 mg by mouth twice daily Aspirin Active 325 MG PO Twice daily 42 November 16, 2023 9:31am atogepant (QULIPTA) 60 mg tablet (19 sources) Start: 12-06-2022 take 1 tablet by mouth in the morning atogepant (QULIPTA) 60 mg tablet Indications: Other migraine without status migrainosus, not intractable Take 60 mg by mouth in the morning. 30 tablet 0 12/06/2022 Active Atovaquone (2 sources) Antimalarial, Antiprotozoal Start: 02-28-2019 take 1 mL by mouth once daily Atovaquone Active 10 ML PO Daily February 28, 2019 5:45pm Start: 02-28-2019 End: 11-06-2023 take 1 mL by mouth once daily Atovaquone Discontinued 10 ML PO Daily February 28, 2019 1:00am November 06, 2023 4:40pm Augmentin Tablets 875 MG (2 sources) Start: 06-28-2022 take 1 tablet by mouth every twelve hours Augmentin Tablets 875 MG 1 tab(s) orally bid for 10 days Jun, Active azaTHIOprine 100 mg oral tablet (20 sources) Purine Antimetabolite Start: 07-08-2023 End: 11-16-2023 take 1 tablet by mouth in the morning azaTHIOprine (Imuran) 100 MG tablet Take 100 mg by mouth in the morning and 100 mg in the evening. 07/08/2023 Active Start: 05-07-2023 take 1 tablet by padmaja th twice daily azaTHIOprine (IMURAN) 100 mg tablet Indications: Systemic lupus erythematosus, unspecified SLE type, unspecified organ involvement status (CMS-HCC) TAKE 1 TABLET BY MOUTH TWICE A DAY 60 tablet 1 05/07/2023 Active Start: 01-02-2023 take 1 tablet by padmaja th twice daily azaTHIOprine (IMURAN) 100 mg tablet Indications: Systemic lupus erythematosus, unspecified SLE type, unspecified organ involvement status (CMS-HCC) TAKE 1 TABLET BY MOUTH TWICE A DAY 60 tablet 1 01/02/2023 Active Start: 02-28-2019 End: 11-06-2023 take 50 mg by mouth three times daily Azathioprine Active 50 MG PO Three times daily February 28, 2019 5:45pm Imuran Active b complex-folic acid tablet (3 sources) take 1 tablet by mouth once daily b complex-folic acid tablet Take 1 tablet by mouth Daily Active baclofen 10 mg oral tablet (20 sources) gamma-Aminobutyr ic Acid-ergic Agonist Start: baclofen (LIORESAL) 10 mg tablet Indications: Muscle spasm Take 1 tablet (10 mg total) by mouth as needed for muscle spasms. 30 tablet 2 01/30/2024 Active Start: 11-06-2023 End: 01-30-2024 take 10 mg by mouth once daily Baclofen Active 10 MG P O Daily November 16, 2023 9:31am cholecalciferol, vitamin D3, (VITAMIN D3 ORAL) (19 [...] 1.5 mg/ml oral solution (1 source) Uncompetitive N-cjbdqe-Y-aspartate Receptor Antagonist, Sigma-1 Agonist Start: 2022 take 10 mL by mouth every eight hours Dante DM 7.5-7.5 MG/5ML 10 mL Orally every 8 hours for 5 days Jun, Active diclofenac sodium 0.01 mg/mg topical gel (20 sources) Nonsteroidal Anti-inflammatory Drug Start: 2023 apply 2 g topically three times daily Diclofenac Sodium Active 2 GM TOPICAL Three times daily 100 November 16, 2023 12:00am Start: 10-25-2022 take 1 tablet by padmaja th in the morning, then take 1 tablet by mouth at bedtime diclofenac (VOLTAREN) 75 mg EC tablet Take 1 tablet (75 mg total) by mouth in the morning and 1 tablet (75 mg total) before bedtime. 60 tablet 1 10/25/2022 Active DULoxetine 60 mg delayed release oral capsule (20 sources) Serotonin and Norepinephrine Reuptake Inhibitor Start: 05-22-2023 End: 11-16-2023 take 1 capsule by mouth in the morning DULoxetine (Cymbalta) [address] capsule Take 60 mg by mouth in the morning. 05/22/2023 Active Start: 04-24-2023 End: 05-21-2023 take 1 capsule by mouth in the morning DULoxetine (CYMBALTA) 60 mg capsule Take 1 capsule (60 mg total) by mouth in the morning. 90 capsule 1 05/22/2023 Active Start: 02-28-2019 End: 11-06-2023 take 60 mg by mouth once daily Duloxetine Active 60 MG PO Daily February 28, 2019 5:45pm fluticasone propionate 0.05 mg/actuat metered dose nasal spray (2 sources) Corticosteroid Start: 02-28-2019 End: 11-06-2023 Fluticasone Propionate Active 1 SPRAY INTRANASAL Twice daily February 28, 2019 5:45pm hydroxychloroquine sulfate 200 mg oral tablet (2 sources) Antimalarial, Antirheumatic Agent Start: 02-28-2019 End: 11-06-2023 take 200 mg by mouth twice daily at mealtime Hydroxychloroquine Active 200 MG PO Twice daily with meals February 28, 2019 5:45pm ibuprofen 800 mg oral tablet (20 sources) Nonsteroidal Anti-inflammatory Drug Start: 10-25-2022 take 1 tablet by mouth three times daily ibuprofen (MOTRIN) 800 mg tablet Take 1 tablet (800 mg total) by mouth 3 (three) times a day. 21 tablet 0 10/25/2022 Active Start: 05-05-2019 End: 11-06-2023 take 800 mg by mouth three times [...] Once a day for 30 day(s) Active losartan potassium 25 mg oral tablet (18 sources) Angiotensin 2 Receptor Silvana Start: 09-27-2023 End: 11-16-2023 take 1 tablet by mouth in the morning losartan (Cozaar) 25 MG tablet Take 25 mg by mouth in the morning. 09/27/2023 Active Magnesium (3 sources) take 1 capsule by mouth once daily Magnesium 400 MG capsule Take 400 mg by mouth Daily Active magnesium oxide 400 mg oral capsule (1 source) Start: 11-06-2023 take 400 mg by mouth once daily Magnesium Oxide Active 400 MG PO Daily November 06, 2023 12:00am metFORMIN hydrochloride 500 mg oral tablet (20 sources) Biguanide Start: 11-16-2023 take 1 tablet by mouth in the morning, then take 1 tablet by mouth at mealtime metFORMIN (GLUCOPHAGE) 500 mg tablet Take 1 tablet (500 mg total) by mouth in the morning and 1 tablet (500 mg total) in the evening. Take with meals. 11/16/2023 Active Start: 11-16-2023 take 1000 mg by mout h twice daily at mealtime Metformin Active 1000 MG PO Twice daily with meals 60 November 16, 2023 12:00am Start: 08-14-2023 End: 12-14-2023 take 2 tablets by mouth once daily in the morning, then take 2 tablets by mouth once daily at bedtime metFORMIN XR (GLUCOPHAGE XR) 500 mg 24 hr tablet Indications: Pre-diabetes TAKE 2 TABLETS BY MOUTH EVERY MORNING AND TAKE TWO TABLETS BY MOUTH EVERY NIGHT AT BEDTIME 180 tablet 1 08/14/2023 12/14/2023 Discontinued (Stop Taking at Discharge) Start: 05-15-2023 take 2 tablets by mo uth once daily at bedtime metFORMIN XR (GLUCOPHAGE [...] Discontinued (Reorder) montelukast 10 mg oral tablet (20 sources) Leukotriene Receptor Antagonist Start: 11-06-2023 End: 02-04-2024 take 10 mg by mouth once daily Montelukast Active 10 MG PO Daily November 16, 2023 9:31am multivitamin (THERAGRAN) tablet (20 sources) take 1 tablet by mouth in the morning multivitamin (THERAGRAN) tablet Take 1 tablet by mouth in the morning. Active take 1 tablet by mouth in the mo rning multivitamin (THERAGRAN) tablet Take 1 tablet by mouth in the morning. Suspended take 1 tablet by mouth in the mo rning multivitamin (THERAGRAN) tablet Take 1 tablet by mouth in the morning. 0 Active Multivitamin preparation (1 source) Start: 11-06-2023 take 1 tablet by mouth once daily Multivitamin Active 1 TAB PO Daily November 06, 2023 12:00am naproxen 500 mg oral tablet (19 sources) Nonsteroidal Anti-inflammatory Drug Start: 01-17-2023 take 1 tablet by mouth in the morning, then take 1 tablet by mouth at mealtime naproxen (NAPROSYN) 500 mg tablet Indications: Lupus (CMS-HCC) Take 1 tablet (500 mg total) by mouth in the morning and 1 tablet (500 mg total) in the evening. Take with meals. 60 tablet 0 01/17/2023 Active omeprazole 20 mg delayed release oral capsule (20 sources) Proton Pump Inhibitor Start: 04-06-2023 End: 12-22-2023 take 1 capsule by mouth in the morning omeprazole (PriLOSEC) [address] capsule Take 1 capsule by mouth in the morning. 06/01/2023 Active ondansetron 4 mg disintegrating oral tablet (16 sources) Serotonin-3 Receptor Antagonist Start: 11-06-2023 take 2 tablets by mouth every eight hours as needed for nausea and vomiting ondansetron ODT (ZOFRAN ODT) 4 mg disintegrating tablet Dissolve 2 tablets (8 mg total) on tongue every 8 (eight) hours as needed for nausea or vomiting. 11/06/2023 Active Start: 11-06-2023 End: 11-16-2023 take 4 mg by mouth every eight hours Ondansetron Active 4 MG PO Every 8 hours November 16, 2023 9:31am ONETOUCH ULTRA2 METER misc (14 sources) Start: 11-16-2023 ONETOUCH ULTRA 2 METER misc USE DIRECTED TO test blood sugar 11/16/2023 Active Start: 11-16-2023 ONETOUCH ULTRA 2 METER misc USE DIRECTED TO test blood sugar 11/16/2023 Suspended 12 hr orphenadrine citrate 100 mg extended release oral tablet (19 sources) Muscle Relaxant Start: 10-01-2022 take 1 tablet by mouth twice daily as needed for muscle spasms orphenadrine (NORFLEX) 100 mg 12 hr tablet Take 1 tablet (100 mg total) by mouth 2 (two) times a day as needed for muscle spasms. 10 tablet 0 10/01/2022 Active oxyCODONE hydrochloride 5 mg oral tablet (17 sources) Opioid Agonist Start: 11-16-2023 End: 12-26-2023 take 1 tablet by mouth every six hours as needed for pain oxyCODONE (ROXICODONE) 5 mg immediate release tablet Indications: Primary osteoarthritis of left knee Take 1 tablet (5 mg total) by mouth every 6 (six) hours as needed for pain. Max Daily Amount: 20 mg 20 tablet 12/26/2023 Active Start: 11-16-2023 take 2 tablets by mo ut every four hours as needed for pain oxyCODONE (ROXICODONE) 5 mg immediate release tablet Take 2 tablets (10 mg total) by mouth every 4 (four) hours as needed for pain. 11/16/2023 Suspended Start: 11-16-2023 take 10 mg by mouth every four hours Oxycodone Active 10 MG PO Every 4 hours 42 7 November 16, 2023 rivaroxaban 20 mg oral tablet (16 sources) Factor Xa Inhibitor Start: 01-07-2024 take 1 tablet by mouth in the morning rivaroxaban (XARELTO) 20 mg tablet tablet Indications: Acute pulmonary embolism with acute cor pulmonale, unspecified pulmonary embolism type (CMS-HCC) Take 1 tablet (20 mg total) by mouth in the morning. 90 tablet 3 01/07/2024 Active Start: 12-07-2023 End: 01-10-2024 rivaroxaban (XARELTO DVT-PE TREAT 30D START) 15 mg (42)- 20 mg (9) tablets,dose pack 15 mg twice daily with food for 21 days followed by 20 mg once daily with food. 51 tablet 12/07/2023 01/10/2024 Discontinued (Therapy completed) Start: 12-07-2023 rivaroxaban (X ARELTO DVT-PE TREAT 30D START) 15 mg (42)- 20 mg (9) tablets,dose pack 15 mg twice daily with food for 21 days followed by 20 mg once daily with food. 51 tablet 12/07/2023 Active Start: 12-07-2023 rivaroxaban (X ARELTO DVT-PE TREAT 30D START) 15 mg (42)- 20 mg (9) tablets,dose pack 15 mg twice daily with food for 21 days followed by 20 mg once daily with food. 51 tablet 12/07/2023 Suspended sodium chloride 0.111 meq/ml nasal spray (19 sources) Start: 01-17-2023 sodium chlorid e (OCEAN NASAL) 0.65 % nasal spray Administer 1 spray into each nostril as needed for rhinitis. 15 mL 12 01/17/2023 Active SUMAtriptan 25 mg oral tablet (20 sources) Serotonin-1b and Serotonin-1d Receptor Agonist Start: 01-30-2024 take 1 tablet by mouth once as needed SUMAtriptan (IMITREX) 25 mg tablet Indications: Other migraine without status migrainosus, not intractable Take 1 tablet (25 mg total) by mouth once as needed for migraine for up to 1 dose. May repeat in 2 hours if unresolved. Do not exceed 200 mg in 24 hours. 9 tablet 01/30/2024 Active Start: 02-28-2019 End: 11-06-2023 Sumatriptan Succinate Active 6 MG SUBCUT As Directed February 28, 2019 5:45pm End: 12-14-2023 SUMAtriptan succinate 6 mg/0 .5 mL needle-free injector Inject 0.5 mL (6 mg total) under the skin as needed (migraine headache). 12/14/2023 Discontinued (Stop Taking at Discharge) SUMAtriptan Acti ve Tirzepatide (Mounjaro) 2.5 MG/0.5ML solution auto-injector (2 sources) Start: 02-04-2024 End: 03-05-2024 inject 0.5 mL by subcutaneous injection every week Tirzepatide (Mounjaro) 2.5 MG/0.5ML solution auto-injector Indications: Encounter for weight loss counseling Inject 0.5 mL under the skin 1 (one) time per week 2 mL 02/04/2024 03/05/2024 Active tirzepatide, weight loss, 2.5 mg/0.5 mL pen injector (19 sources) Start: 03-02-2023 tirzepatide, weight loss, 2.5 mg/0.5 mL pen injector Indications: [...] 6 (six) hours as needed. 0 Active topiramate 50 mg oral tablet (20 sources) Start: 11-06-2023 End: 11-16-2023 take 1 tablet by mouth in the morning, then take 1 tablet by mouth at bedtime topiramate (TOPAMAX) 50 mg tablet Take 1 tablet (50 mg total) by mouth in the morning and 1 tablet (50 mg total) before bedtime. 11/16/2023 Active Start: 08-16-2023 End: 12-14-2023 take 1 tablet by mouth once daily topiramate (Topamax) 25 MG tablet Take 25 mg by mouth Daily 10/16/2023 Active Turmeric Curcumin 500 MG capsule (3 sources) take 1 capsule by mo uth once daily Turmeric Curcumin 500 MG capsule Take 500 mg by mouth Daily Active Completed/Discontinued Medications Medication Drug Class(es) Dates Sig (Normalized) Sig (Original) acetaminophen 500 mg oral tablet (20 sources) Start: 11-16-2023 End: 01-10-2024 take 1 tablet by mouth three times daily as needed for pain acetaminophen (TYLENOL EXTRA STRENGTH) 500 mg tablet Take 1 tablet (500 mg total) by mouth 3 (three) times a day as needed for pain. 11/16/2023 01/10/2024 Discontinued (Therapy completed) Start: 11-16-2023 take 1000 mg by mout h three times daily Acetaminophen Active 1000 MG PO Three times daily 180 30 November 16, 2023 12:00am acetaminophen (T YLENOL ARTHRITIS) 650 mg 8 hr tablet acetaminophen ER 650 mg tablet,extended release 0 Active acetaminophen 325 mg / oxyCODONE hydrochloride 5 mg oral tablet (20 sources) Opioid Agonist Start: 11-06-2023 End: 11-16-2023 take 1 tablet by mouth every six hours Oxycodone-Acetaminophen Discontinued 1 TAB PO Every 6 hours November 06, 2023 12:00am November 16, 2023 9:33am Start: 06-29-2023 End: 02-04-2024 take 1 tablet by mouth every six hours as needed for pain oxyCODONE-acetaminophen (Percocet) 7.5-3 25 MG tablet Take 1 tablet by mouth every 6 (six) hours if needed for moderate pain 06/29/2023 02/04/2024 Discontinued Start: 03-21-2023 End: 06-11-2023 oxyCODONE-acetaminophen (PER COCET) 7.5-325 mg per tablet Indications: Other forms [...] 4 tablets 20 tablet 0 03/08/2023 Active codeine phosphate 2 mg/ml / guaiFENesin 20 [...] mL 0 02/15/2023 03/08/2023 Discontinued (Therapy completed) docusate sodium 100 mg oral capsule (10 sources) Start: 11-06-2023 End: 02-07-2024 take 1 capsule by mouth in the morning, then take 1 capsule by mouth at bedtime docusate sodium (COLACE) 100 mg capsule Take 1 capsule (100 mg total) by mouth in the morning and 1 capsule (100 mg total) before bedtime. 11/06/2023 01/10/2024 Discontinued (Therapy completed) estrogens, conjugated (mcc) 0.9 mg oral tablet (5 sources) Estrogen Start: 09-17-2023 End: 02-04-2024 take 1 tablet by mouth once daily, then take 1 tablet by mouth once daily estrogens, conjugated, (Premarin) 0.9 MG tablet Indications: Hot flashes Take 1 tablet (0.9 mg) by mouth Daily Take 1 tablet daily by mouth for 30 days 30 tablet 11 09/17/2023 02/04/2024 Discontinued hydrOXYzine hydrochloride 50 mg oral tablet (20 sources) Antihistamine Start: 11-16-2023 End: 12-14-2023 take 1 tablet by mouth every eight hours as needed hydrOXYzine (ATARAX) 50 mg tablet Take 1 tablet (50 mg total) by mouth every 8 (eight) hours as needed. 11/16/2023 12/14/2023 Discontinued (Stop Taking at Discharge) Start: 11-06-2023 End: 11-16-2023 take 50 mg by mouth three times daily Hydroxyzine Hcl Active 50 MG PO Three times daily 90 November 16, 2023 9:31am Start: 06-29-2023 take 1 capsule by mo [facility] three times daily as needed hydrOXYzine (VISTARIL) 50 mg capsule Indications: Medication refill Take 1 capsule (50 mg total) by mouth 3 (three) times a day as needed for itching. 270 capsule 06/29/2023 Active Start: 06-18-2023 take 1 tablet by padmaja once daily hydrOXYzine (ATARAX) 50 mg tablet [...] Start: 12-15-2022 take 1 capsule by mo [facility] three times daily as needed hydrOXYzine (VISTARIL) [...] Orally twice daily for 30 day(s) Active predniSONE 20 mg oral tablet (5 sources) Start: 11-06-2023 End: 11-16-2023 Prednisone Discontinued 20 M G PO Daily November 06, 2023 12:00am November 16, 2023 9:33am days -21 of therapy Start: 06-28-2022 take 1 tablet by padmaja th every twelve hours prednisone 20 MG 1 tablet Orally 2 times a day for 5 days Jun, Active Start: 02-28-2019 End: 11-06-2023 take 60 mg by mouth once daily Prednisone Active 60 MG PO Daily February 28, 2019 5:45pm On taper-down tirzepatide 2.5 mg/0.5 mL pen injector (1 source) Start: 02-27-2023 End: 03-02-2023 tirzepatide 2.5 mg/0.5 mL pen injector Indications: Weight loss , Class 3 severe obesity with body mass index (BMI) of 50.0 to 59.9 in adult, unspecified obesity type, unspecified whether serious comorbidity present ([facility]) Inject 2.5 mg under the skin every 7 days. Please dispense Zepbound 3 mL 0 02/27/2023 03/02/2023 Discontinued (Alternate therapy) triamcinolone acetonide 40 mg/ml injectable suspension (3 sources) Corticosteroid Start: 12-05-2021 Kenalog-40 Nov, 40 mg Problems Active Problems Problem Classification Problem Date Documented Date Episodic/Chronic Abdominal pain (1 source) Epigastric pain; Translations: [Epigastric pain] 05-04-2023 Episodic Anxiety disorders (14 sources) Mixed anxiety and depressive disorder; Translations: [Other specified anxiety disorders] Onset: 12-07-2023 12-07-2023 Chronic Asthma (16 sources) Mild intermittent asthma; Translations: [Mild intermittent asthma, uncomplicated] Onset: 12-07-2023 12-07-2023 Chronic Coagulation and hemorrhagic disorders (2 sources) Coagulation defect, unspecified; Translations: [Coagulation defect, unspecified] Onset: 10-22-2023 Chronic Esophageal disorders (19 sources) Gastroesophageal reflux disease without esophagitis; Translations: [Gastro-esophageal reflux disease without esophagitis] Onset: 04-06-2023 04-06-2023 Chronic Essential hypertension (20 sources) Essential (primary) hypertension; Translations: [Essential hypertension] Onset: 03-07-2018 02-07-2021 Chronic External cause codes: Fall (1 source) Other fall on same level, initial encounter; Translations: [OTHER FALL ON SAME LEVEL INITIAL] Onset: 03-07-2018 Headache; including migraine (2 sources) Other migraine, not intractable, without status migrainosus; Translations: [Migraine] Onset: 08-16-2023 01-30-2024 Chronic Immunizations and screening for infectious disease (4 sources) Contact with and (suspected) exposure to other viral communicable diseases; Translations: [Contact with and (suspected) exposure to other viral communicable diseases] Episodic Mood disorders (1 source) Major depressive disorder, single episode, unspecified; Translations: [Major depressive disorder, single episode, unspecified] Onset: 08-16-2023 Chronic Nutritional deficiencies (14 sources) Vitamin D deficiency; Translations: [Vitamin D deficiency, unspecified] Onset: 12-07-2023 12-07-2023 Chronic Nutritional deficiencies (14 sources) Thiamine deficiency; Translations: [Thiamine deficiency, unspecified] Onset: 12-07-2023 12-07-2023 Episodic Osteoarthritis (20 sources) Osteoarthritis of left knee joint; Translations: [Unilateral primary osteoarthritis, left knee] Onset: 08-03-2022 08-03-2022 Chronic Other aftercare (1 source) Patient encounter status; Translations: [Encounter for therapeutic drug level monitoring] 04-30-2023 Episodic Other connective tissue disease (15 sources) History of total knee arthroplasty; Translations: [Presence of unspecified artificial knee joint] Onset: 10-31-2023 11-14-2023 Chronic Other connective tissue disease (2 sources) Presence of unspecified artificial knee joint; Translations: [Knee joint replacement] Onset: 11-06-2023 11-16-2023 Chronic Other connective tissue disease (3 sources) Presence of left artificial knee joint; Translations: [Presence of left artificial knee joint] Onset: 10-31-2023 Chronic Other connective tissue disease (2 sources) Presence of right artificial knee joint; Translations: [Presence of right artificial knee joint] Onset: 07-23-2023 Chronic Other connective tissue disease (14 sources) Fibromyalgia; Translations: [Fibromyalgia] Onset: 12-07-2023 12-07-2023 Episodic Other connective tissue disease (1 source) Other muscle spasm; Translations: [Other muscle spasm] Onset: 01-30-2024 Episodic Other connective tissue disease (1 source) Spasm; Translations: [Other muscle spasm] 01-30-2024 Episodic Other injuries and conditions due to external causes (2 sources) Contusion; Translations: [Other injury of unspecified body region, initial encounter] 05-05-2019 Episodic Other liver diseases (2 sources) Steatosis of liver; Translations: [Fatty (change of) liver, not elsewhere classified] 05-04-2023 Chronic Other lower respiratory disease (9 sources) Other nonspecific abnormal finding of lung field; Translations: [Swelling, mass, or lump in chest] Onset: 01-10-2024 01-10-2024 Episodic Other lower respiratory disease (2 sources) Shortness of breath; Translations: [Shortness of breath] Onset: 12-06-2023 Episodic Other nervous system disorders (1 source) Other chronic pain; Translations: [Other chronic pain] Onset: 10-30-2023 Chronic Other non-traumatic joint disorders (3 sources) Pain in left wrist; Translations: [PAIN IN LEFT WRIST] Onset: 03-04-2018 Episodic Other non-traumatic joint disorders (3 sources) Pain in left knee; Translations: [Pain in joint, lower leg] Onset: 11-19-2023 05-24-2023 Episodic Other non-traumatic joint disorders (2 sources) Knee pain Onset: 10-30-2023 Episodic Other nutritional; endocrine; and metabolic disorders (15 sources) Body mass index 40+ - severely obese; Translations: [Morbid (severe) obesity due to excess calories] Onset: 09-27-2023 11-07-2023 Chronic Other nutritional; endocrine; and metabolic disorders (5 sources) Morbid (severe) obesity due to excess calories; Translations: [Morbid obesity] Onset: 11-01-2023 11-16-2023 Chronic Other nutritional; endocrine; and metabolic disorders (2 sources) Body mass index (BMI) 50.0-59.9, adult; Translations: [Body mass index (BMI) 50.0-59.9, adult] Onset: 11-06-2023 Chronic Pulmonary heart disease (6 sources) Acute pulmonary embolism; Translations: [Other pulmonary embolism with acute cor pulmonale] Onset: 12-13-2023 01-07-2024 Chronic Pulmonary heart disease (20 sources) Pulmonary embolism; Translations: [Other pulmonary embolism without acute cor pulmonale] Onset: 12-07-2023 12-13-2023 Episodic Residual codes; unclassified (14 sources) Obstructive sleep apnea syndrome; Translations: [Obstructive sleep apnea (adult) (pediatric)] Onset: 10-31-2023 12-07-2023 Chronic Residual codes; unclassified (1 source) Obstructive sleep apnea (adult) (pediatric); Translations: [Obstructive sleep apnea (adult) (pediatric)] Onset: 12-13-2023 Chronic Residual codes; unclassified (1 source) Acquired absence of both cervix and uterus; Translations: [ACQUIRED ABSENCE BOTH CERVIX AND UTERUS] Onset: 03-07-2018 Episodic Spondylosis; intervertebral disc disorders; other back problems (20 sources) Lumbosacral spondylosis without myelopathy; Translations: [Spondylosis without myelopathy or radiculopathy, lumbosacral region] Onset: 07-19-2016 07-19-2016 Chronic Spondylosis; intervertebral disc disorders; other back problems (1 source) Backache Onset: 12-19-2023 Episodic Sprains and strains (1 source) Unspecified sprain of left wrist, initial encounter; Translations: [UNSPECIFIED SPRAIN LT WRIST INITIAL] Onset: 03-07-2018 Episodic Superficial injury; contusion (2 sources) Abrasion of left knee; Translations: [Abrasion, left knee, initial encounter] 05-05-2019 Episodic Systemic lupus erythematosus and connective tissue disorders (20 sources) Systemic lupus erythematosus; Translations: [Other forms of systemic lupus erythematosus] Onset: 03-01-2023 03-08-2023 Chronic Unclassified (2 sources) Hospital Follow-up Onset: 12-19-2023 Unclassified (1 source) Blood Clot(s) Onset: 01-07-2024 Unclassified (1 source) TROUBLE BREATHING Onset: 12-06-2023 Unclassified (1 source) Low back pain, unspecified; Translations: [Low back pain, unspecified] Onset: 10-30-2023 Unclassified (1 source) Pre-op Exam Onset: 09-27-2023 Unclassified (1 source) Breathing Problem Onset: 12-19-2023 Unclassified (1 source) Annual Exam Onset: 08-16-2023 Past or Other Problems Problem Classification Problem Date Documented Date Episodic/Chronic Administrative/socia l admission (6 sources) Encounter for issue of repeat prescription; Translations: [Other reduced mobility] Onset: 11-06-2023 Episodic Bacterial infection; unspecified site (1 source) Other specified bacterial agents as the cause of diseases classified elsewhere; Translations: [Other specified bacterial agents as the cause of diseases classified elsewhere] Onset: 08-16-2023 Episodic Diabetes mellitus without complication (20 sources) Prediabetes; Translations: [Prediabetes] Onset: 06-12-2023 03-02-2023 Episodic Genitourinary symptoms and ill-defined conditions (4 sources) Increased frequency of urination; Translations: [Frequency of micturition] Onset: 04-06-2023 04-06-2023 Episodic Inflammatory diseases of female pelvic organs (1 source) Acute vaginitis; Translations: [Acute vaginitis] Onset: 08-16-2023 Episodic Mood disorders (20 sources) Mood disorders Onset: 11-02-2022 Resolved: 12-19-2023 11-02-2022 Nonspecific chest pain (3 sources) Chest discomfort; Translations: [Other chest pain] Onset: 04-06-2023 04-06-2023 Episodic Other acquired deformities (2 sources) Varus deformity, not elsewhere classified, left knee; Translations: [Varus deformity, not elsewhere classified, left knee] Onset: 07-23-2023 Episodic Other aftercare (1 source) Encounter for therapeutic drug level monitoring; Translations: [Encounter for therapeutic drug level monitoring] Onset: 07-12-2023 Episodic Other lower respiratory disease (1 source) Shortness of breath Onset: 09-27-2023 Episodic Other non-traumatic joint disorders (20 sources) Anterior knee pain; Translations: [Pain in right knee] Onset: 04-20-2021 04-20-2021 Episodic Other nutritional; endocrine; and metabolic disorders (20 sources) Severe obesity; Translations: [Morbid (severe) obesity due to excess calories] Onset: 12-27-2020 Resolved: 09-27-2023 12-27-2020 Chronic Other nutritional; endocrine; and metabolic disorders (14 sources) Morbid obesity; Translations: [Morbid (severe) obesity due to excess calories] Onset: 05-10-2017 Resolved: 01-29-2024 12-07-2023 Chronic Other screening for suspected conditions (not mental disorders or infectious disease) (1 source) Abnormal electrocardiogram [ECG] [EKG]; Translations: [Abnormal electrocardiogram (ECG) (EKG)] Onset: 09-27-2023 Episodic Residual codes; unclassified (1 source) Pain Onset: 08-02-2023 Episodic Residual codes; unclassified (1 source) Other specified health status; Translations: [Other specified health status] Onset: 11-06-2023 Episodic Unclassified (1 source) Lumbar pain M54.50 Unclassified (20 sources) Onset: 01-06-2020 01-06-2020 Unclassified (1 source) Right lower lobe lung mass 01-16-2024 Unclassified (2 sources) Patient encounter status 02-04-2024 Urinary tract infections (4 sources) Acute cystitis; Translations: [Acute cystitis without hematuria] Onset: 07-12-2023 04-24-2023 Episodic Results Test Name Value Interpretation Reference Range Facility PET CT SKULL TO THIGHon 01-[address] SKULL TO THIGH PET CT SKULL TO [facility] PET CT SKULL TO THIGH CLINICAL HISTORY:Right lower lobe lung mass pulmonary nodule. Assess malignant potential. COMPARISON: None. TECHNIQUE: PET/CT was performed following intravenous administration of 13.9 mCi F-18 FDG with images obtained from the skull base through the mid thighs. Fasting glucose was 128 mg/dL at the time of administration. CT was performed utilizing free breathing technique and nondiagnostic collimation for the purposes attenuation correction and localization of radiotracer activity. FINDINGS: Physiologic distribution of radiotracer within the neck and frontal soft tissues. No aberrant large cervical or supraclavicular lymph nodes. Nonspecific uptake seen in the region of the right muscles of mastication likely related to activity and used liver clinical correlation is recommended. Multiple enlarged left axillary lymph nodes are mildly FDG avid with maximum SUV of 3.6. The right lower lobe mass is non-FDG avid with maximum SUV of 3.2. No avid mediastinal or hilar lymph nodes. Physiologic bowel and urinary activity. No avid or enlarged mesenteric, retroperitoneal or pelvic lymph nodes. IMPRESSION: 1. Right lower lobe pulmonary nodule is not FDG avid favoring benign process however continued CT follow-up in 3-6 months is recommended. This does appear to be grossly stable from a abdomen CT of 2020. 2. Mildly avid and enlarged left axillary lymph nodes are indeterminate for reactive versus inflammatory/infectiou s or neoplastic process. Clinical correlation is recommended. Finalized by Chava Cruz MD on 01/28/2024 7:55 AM Normal [facility] CBC AND AUTO DIFFon 12-14-19 24 ABSOLUTE BASOPHIL 0.0 X10E9/L Normal 0.0-0.2 [facility] Comment on above: Performed By: #### P INR, 96124-0, 3274-8 #### [facility] ([id number]) [address], [address] [place] [address] ABSOLUTE NEUTROPHIL 1.7 X10E9/L Normal 1.5-6.6 [facility] Comment on above: Performed By: #### P INR, 27171-0, 3274-8 #### [facility] ([id number]) [address], [address] [place] [address] Basophils/100 WBC (Bld) 1.5 % Normal [facility] Comment on above: Performed By: #### P INR, 69079-3, 3274-8 #### [facility] ([id number]) [address], [address] [place] [address] Eosinophils (Bld) [#/Vol] 0.0 10*3/uL Normal 0.0-0.4 [facility] Comment on above: Performed By: #### P INR, 36162-5, 8 #### [facility] ([id number]) [address] [address] [place] [address] Eosinophils/100 WBC (Bld) 0.5 % Normal [facility] Comment on above: Performed By: #### P INR, 90984-5, 3273-10 #### [facility] ([id number]) [address] [address] Erythrocyte distribution width (RBC) [Ratio] 15.7 % High 11.5-15.0 [facility] Comment on above: Performed By: #### P INR, 48156-6, 3273-10 #### [facility] ([id number]) [address], [address] [address] Hematocrit (Bld) [Volume fraction] 32.7 % Low 35-47 [facility] Comment on above: Performed By: #### P INR, 85438-1, 8 #### [facility] ([id number]) [address] [address] Hemoglobin (Bld) [Mass/Vol] 10.9 g/dL Low 11.7-15.5 [facility] Comment on above: Performed By: #### P INR, 66515-1, 8 #### [facility] ([id number]) [address] [address] Lymphocytes (Bld) [#/Vol] 1.1 10*3/uL Normal 1.0-3.5 [facility] Comment on above: Performed By: #### P INR, 67958-3, 3273-8 #### [facility] ([id number]) [address], [address] [place] [address] Lymphocytes/100 WBC (Bld) 33.2 % Normal [facility] Comment on above: Performed By: #### P INR, 18842-1, 3273-10 #### [facility] ([id number]) [address], [address] [place] [address] MCH (RBC) [Entitic mass] 31.0 pg Normal 27-34 [facility] Comment on above: Performed By: #### P INR, 56140-8, 3273-10 #### [facility] ([id number]) [address], [address] [place] [address] MCHC (RBC) [Mass/Vol] 33.4 g/dL Normal 32-36 [facility] Comment on above: Performed By: #### P INR, 70493-6, 3273-10 #### [facility] ([id number]) [address], [address] [place] [address] MCV (RBC) [Entitic vol] 93 fL Normal 80-100 [facility] Comment on above: Performed By: #### P INR, 30392-4, 8 #### [facility] ([id number]) [address], [address] [place] [address] Monocytes (Bld) [#/Vol] 0.4 10*3/uL Normal 0-0.9 [facility] Comment on above: Performed By: #### P INR, 26190-1, 8 #### [facility] ([id number]) [address], [address] [place] [address] Monocytes/100 WBC (Bld) 11.6 % Normal [facility] Comment on above: Performed By: #### P INR, 54850-1, 3273-10 #### [facility] ([id number]) [address], [address] [place] [address] Neutrophils/100 WBC (Bld) 53.2 % Normal [facility] Comment on above: Performed By: #### P INR, 15537-1, 3274-8 #### [facility] ([id number]) [address], [address] [place] [address] Platelet mean volume (Bld) [Entitic vol] 6.7 fL Low 7-12 [facility] Comment on above: Performed By: #### P INR, 39197-8, 3273-8 #### [facility] ([id number]) [address], [facility] [address] [place] [address] Platelets (Bld) [#/Vol] 342 10*3/uL Normal 150-450 [facility] Comment on above: Performed By: #### P INR, 31608-8, 4-8 #### [facility] ([id number]) [address], [facility] [address] [place] [address] RBC COUNT 3.53 X10E12/L Low 3.80-5.20 [facility] Comment on above: Performed By: #### P INR, 21757-4, 3273-8 #### [facility] ([id number]) [address], [address] [place] [address] WBC (Bld) [#/Vol] 3.3 10*3/uL Low 4.0-11.0 [facility] Comment on above: Performed By: #### P INR, 22091-5, 4-8 #### [facility] ([id number]) [address], [address] [place] [address] COMPREHENSIVE METABOLIC PANE Caleb 12-14-2023 Albumin [Mass/Vol] 3.5 g/dL Normal 3.2-5.3 [facility] Comment on above: Performed By: #### P INR, 56820-6, 3274-8 #### [facility] ([id number]) [address], [address] [place] [address] ALP [Catalytic activity/Vol] 100 U/L Normal 39-130 [facility] Comment on above: Performed By: #### P INR, 09154-6, 3273-8 #### [facility] ([id number]) [address], [address] [place] [address] ALT [Catalytic activity/Vol] 19 U/L Normal 0-31 [facility] Comment on above: Performed By: #### P INR, 39196-8, 3273-8 #### [facility] ([id number]) [address], [address] [place] [address] Anion gap [Moles/Vol] 8 mmol/L Normal 5-15 [facility] Comment on above: Performed By: #### P INR, 38670-8, 3273-8 #### [facility] ([id number]) [address], [address] [place] [address] AST [Catalytic activity/Vol] 28 U/L Normal 0-41 [facility] Comment on above: Performed By: #### P INR, 22689-8, 4-8 #### [facility] ([id number]) [address], [address] [place] [address] Bilirubin [Mass/Vol] 0.6 mg/dL Normal 0.3-1.2 [facility] Comment on above: Performed By: #### P INR, 29364-5, 3273-8 #### [facility] ([id number]) [address], [address] [place] [address] Calcium [Mass/Vol] 8.3 mg/dL Low 8.5-10.5 [facility] Comment on above: Performed By: #### P INR, 99867-2, 3273-8 #### [facility] ([id number]) [address], [address] [place] [address] Chloride [Moles/Vol] 107 mmol/L Normal 98-109 [facility] Comment on above: Performed By: #### P INR, 06122-0, 3273-8 #### [facility] ([id number]) [address] [address] [place] [address] CO2 [Moles/Vol] 23 mmol/L Normal 22-32 [facility] Comment on above: Performed By: #### P INR, 08215-3, 3273-8 #### [facility] ([id number]) [address], [facility] [address] [place] [address] Creatinine [Mass/Vol] 0.59 mg/dL Normal 0.40-1.00 [facility] Comment on above: Result Comment: METH OD TRACEABLE TO IDMS STANDARD Performed By: #### P INR, 16529-9, 3273-8 #### [facility] ([id number]) [address], [address] [address] eGFR (CKD-EPI) NON-RACE DEPENDENT >90 Normal >59 [facility] Comment on above: Result Comment: Reported eGFR is based on the CKD-EPI 2020 equation that does not use a race coefficient. Performed By: #### P INR, 29108-5, 3273-8 #### [facility] ([id number]) [address] [address] [place] [address] Glucose [Mass/Vol] 98 mg/dL Normal 65-99 [facility] Comment on above: Performed By: #### P INR, 48867-2, 3273-8 #### [facility] ([id number]) [address] [address] [place] [address] Potassium [Moles/Vol] 3.6 mmol/L Normal 3.5-5.0 [facility] Comment on above: Performed By: #### P INR, 15114-5, 3273-8 #### [facility] ([id number]) [address] [place] [address] Protein [Mass/Vol] 6.5 g/dL Normal 6.0-8.0 [facility] Comment on above: Performed By: #### P INR, 58364-4, 3274-8 #### [facility] ([id number]) [address], [facility] [address] [place] [address] Sodium [Moles/Vol] 138 mmol/L Normal 134-146 [facility] Comment on above: Performed By: #### P INR, 57654-4, 3274-8 #### [facility] ([id number]) [address] [address] [place] [address] Urea nitrogen [Mass/Vol] 3 mg/dL Low 5-23 [facility] Comment on above: Performed By: #### P INR, 36964-6, 3274-8 #### [facility] ([id number]) [address] [address] MAGNESIUMon 12-14-2023 Magnesium [Mass/Vol] 1.7 mg/dL Low 1.8-2.6 [facility] Comment on above: Performed By: #### P INR, 00265-4, 3274-8 #### [facility] ([id number]) [address] [address] 1,3 beta glucan (S) [Mass/Vo l]on 12-13-2023 Fungitell Qualitative Result Negative Normal Negative [facility] Comment on above: Result Comment: NOTE No (1, 3) Bdlw-V-Atnevy detected. This assay does not detect certain fungi, including Cryptococcus species, which produce very low levels of (1, 3) Ywlm-N-Ozekvw (BDG) and the Mucorales (e.g., Lichthemia, Mucor and Rhizopus), which are not known to produce BDG. Additionally, the yeast phase of Blastomyces dermatitidis produces little BDG and may not be detected by this assay. ADDITIONAL INFORMATION This assay was performed using the FDA-cleared Fungitell Assay ([facility], [place], [place], [place]), a kinetic SHERI based on modification of the Limulus Amebocyte Lysate pathway. Test Performed by: [facility] [address] [place] [address] Beverage Host: Raoul Marin Ph.D.; CLIA# [id number] Performed By: #### P INR, 91855-1, 3274-8 #### [facility] ([id number]) [address] [facility], [address] [place] [address] Fungitell Quantitative Value <31 Normal <60 pg/mL [facility] Comment on above: Performed By: #### P INR, 04738-3, 3274-8 #### [facility] ([id number]) [address] [facility], [address] [place] [address] BASIC METABOLIC PANLon 12-12 Anion gap [Moles/Vol] 8 mmol/L Normal 5-15 [facility] Comment on above: Performed By: #### C BCA, 27080-7, C34, 42419-8, CMP, 1987-5, ENAP, 13169-6, 26021-3, 40658-6, 5130-0, 19244-0 #### [facility] ([id number]) [address] [place] [address] #### 53975-1, NAIFA #### [facility] [facility] ([id number]) [address] [place] [address], [place] [address] Calcium [Mass/Vol] 8.6 mg/dL Normal 8.5-10.5 [facility] Comment on above: Performed By: #### C BCA, 91859-7, C34, 50218-7, CMP, 1987-5, ENAP, 54778-0, 12479-3, 25725-8, 5130-0, 12936-4 #### [facility] ([id number]) [address], [address] [place] [address] #### 28136-0, NAIFA #### [facility] ([id number]) [address] [place] [address] Chloride [Moles/Vol] 108 mmol/L Normal 98-109 [facility] Comment on above: Performed By: #### C BCA, 37528-2, C34, 89637-8, CMP, 1988-5, ENAP, 73641-1, 31552-3, 94132-7, 5130-0, 95066-9 #### [facility] ([id number]) [address], [address] [place] [address] #### 74257-2, NAIFA #### [facility] ([id number]) [address] [place] [address] CO2 [Moles/Vol] 21 mmol/L Low 22-32 [facility] Comment on above: Performed By: #### C BCA, 53722-6, C34, 94689-8, CMP, 1987-5, ENAP, 74678-8, 16709-6, 54444-6, 5130-0, 98869-4 #### [facility] ([id number]) [address], [address] [place] [address] #### 54642-6, NAIFA #### [facility] ([id number]) [address] [place] [address] 12098 Creatinine [Mass/Vol] 0.76 mg/dL Normal 0.40-1.00 [facility] Comment on above: Result Comment: METH OD TRACEABLE TO IDMS STANDARD Performed By: #### C BCA, 29579-9, C34, 44229-3, CMP, 1988-5, ENAP, 33111-9, 30108-2, 17156-2, 5130-0, 09056-0 #### [facility] ([id number]) [address] [facility], [address] [place] [address] #### 18023-3, NAIFA #### [facility] ([id number]) [address] [place] [address] 78041 eGFR (CKD-EPI) NON-RACE DEPENDENT >90 Normal >59 [facility] Comment on above: Result Comment: Reported eGFR is based on the CKD-EPI 2020 equation that does not use a race coefficient. Performed By: #### C BCA, 11201-1, C34, 24598-3, CMP, 1987-07, ENAP, 59306-0, 37690-1, 56328-8, 5130-0, 84791-7 #### [facility] ([id number]) [address] [facility], [address] [place] [address] #### 23626-1, NAIFA #### [facility] ([id number]) [address] [place] [address] Glucose [Mass/Vol] 111 mg/dL High 65-99 [facility] Comment on above: Performed By: #### C BCA, 55545-7, C34, 00355-7, CMP, 1987-07, ENAP, 10949-7, 36558-4, 39846-3, 5130-0, 94895-6 #### [facility] ([id number]) [address], [address] [place] [address] #### 24165-2, NAIFA #### [facility] ([id number]) [address] [place] [address]61 Potassium [Moles/Vol] 3.7 mmol/L Normal 3.5-5.0 [facility] Comment on above: Performed By: #### C BCA, 47920-4, C34, 85484-7, CMP, 1988-5, ENAP, 36647-7, 94625-3, 73468-5, 5130-0, 37743-3 #### [facility] ([id number]) [address], [address] [place] [address] #### 70848-2, NAIFA #### [facility] ([id number]) [address] [place] [address] Sodium [Moles/Vol] 137 mmol/L Normal 134-146 [facility] Comment on above: Performed By: #### C BCA, 32858-1, C34, 53195-8, CMP, 1987-, ENAP, 00728-4, 71336-6, 97155-8, 5130-0, 33758-3 #### [facility] ([id number]) [address], [address] [place], [place] [address] #### 57669-5, NAIFA #### [facility] ([id number]) [address] [place] [address] 35145 Urea nitrogen [Mass/Vol] 6 mg/dL Normal 5-23 [facility] Comment on above: Performed By: #### C BCA, 81744-8, C34, 43834-4, CMP, 1987-, ENAP, 40661-6, 82512-4, 21124-9, 5130-0, 90252-7 #### [facility] ([id number]) [address], [address] [place] [address] #### 55321-5, NAIFA #### [facility] ([id number]) [address] [place] [address] 19715 CBC AND AUTO DIFFon 12-13-19 24 ABSOLUTE BASOPHIL 0.1 X10E9/L Normal 0.0-0.2 [facility] Comment on above: Performed By: #### C BCA, 18328-3, C34, 21368-9, CMP, 1987-5, ENAP, 32614-2, 69370-4, 19875-0, 5130-0, 01736-8 #### [facility] ([id number]) [address] [facility], [address] [place] [address] #### 39722-3, NAIFA #### [facility] ([id number]) [address] [place] [address]4979 ABSOLUTE NEUTROPHIL 1.8 X10E9/L Normal 1.5-6.6 [facility] Comment on above: Performed By: #### C BCA, 05742-4, C34, 99434-3, CMP, 1987-, ENAP, 90011-8, 33825-9, 36710-7, 5130-0, 64099-2 #### [facility] ([id number]) [address] [place] [address], [address] [place] [address] #### 53844-4, NAIFA #### [facility] ([id number]) [address] [place] [address] Basophils/100 WBC (Bld) 1.6 % Normal [facility] Comment on above: Performed By: #### C BCA, 35779-0, C34, 79115-2, CMP, 1987-, ENAP, 01175-6, 89086-6, 76057-6, 5130-0, 04584-4 #### [facility] ([id number]) [address] [place] [address], [address] [place] [address] #### 32496-5, NAIFA #### [facility] ([id number]) [address] [place] [address] Eosinophils (Bld) [#/Vol] 0.0 10*3/uL Normal 0.0-0.4 [facility] Comment on above: Performed By: #### C BCA, 96267-4, C34, 91266-4, CMP, 1987-07, ENAP, 10698-1, 71749-2, 95340-1, 5130-0, 81670-6 #### [facility] ([id number]) [address], [address] [place] [address] #### 30661-4, NAIFA #### [facility] ([id number]) [address] [place] [address]3222 Eosinophils/100 WBC (Bld) 0.7 % Normal [facility] Comment on above: Performed By: #### C BCA, 45792-8, C34, 98630-3, CMP, 1987-07, ENAP, 55460-0, 74470-6, 54935-8, 5130-0, 94831-4 #### [facility] ([id number]) [address] [facility], [address] [place] [address] #### 07958-6, NAIFA #### [facility] ([id number]) [address] [place] [address]87[address] Erythrocyte distribution width (RBC) [Ratio] 15.9 % High 11.5-15.0 [facility] Comment on above: Performed By: #### C BCA, 96487-6, C34, 20990-5, CMP, 1987-07, ENAP, 24890-8, 02120-0, 59208-5, 5130-0, 11615-4 #### [facility] ([id number]) [address], [address] [place] [address] #### 32259-1, NAIFA #### [facility] ([id number]) [address] [place] [address]15 Hematocrit (Bld) [Volume fraction] 34.0 % Low 35-47 [facility] Comment on above: Performed By: #### C BCA, 93106-9, C34, 86292-6, CMP, 1988-5, ENAP, 72111-5, 88109-2, 22514-0, 5130-0, 64669-5 #### [facility] ([id number]) [address], [address] [place] [address] #### 91804-3, NAIFA #### [facility] ([id number]) [address] [place] [address] 34536 Hemoglobin (Bld) [Mass/Vol] 11.3 g/dL Low 11.7-15.5 [facility] Comment on above: Performed By: #### C BCA, 97900-2, C34, 49283-6, CMP, 1987-07, ENAP, 36852-8, 57023-6, 56378-1, 5130-0, 27382-5 #### [facility] ([id number]) [address], [address] [place] [address] #### 92001-0, NAIFA #### [facility] ([id number]) [address] [place] [address] 99677 Lymphocytes (Bld) [#/Vol] 1.6 10*3/uL Normal 1.0-3.5 [facility] Comment on above: Performed By: #### C BCA, 31912-0, C34, 40359-1, CMP, 1987-07, ENAP, 31275-0, 20497-4, 49726-1, 5130-0, 21920-9 #### [facility] ([id number]) [address], [address] [place] [address] #### 70001-2, NAIFA #### [facility] ([id number]) [address] [place] [address] 73967 Lymphocytes/100 WBC (Bld) 41.5 % Normal [facility] Comment on above: Performed By: #### C BCA, 73528-8, C34, 07936-5, CMP, 1987-5, ENAP, 83613-1, 51180-1, 71323-3, 5130-0, 62016-8 #### [facility] ([id number]) [address], [address] [place] [id number] #### 31178-4, NAIFA #### [facility] ([id number]) [address] [place] [address] 88236 MCH (RBC) [Entitic mass] 30.9 pg Normal 27-34 [facility] Comment on above: Performed By: #### C BCA, 63000-6, C34, 71554-6, CMP, 1987-, ENAP, 46549-9, 45729-9, 45094-0, 5130-0, 58019-2 #### [facility] ([id number]) [address], [address] [place] [address] #### 61854-2, NAIFA #### [facility] ([id number]) [address] [place] [address] 74639 MCHC (RBC) [Mass/Vol] 33.3 g/dL Normal 32-36 [facility] Comment on above: Performed By: #### C BCA, 66919-8, C34, 62105-8, CMP, 1987-07, ENAP, 72381-2, 16349-9, 67931-2, 5130-0, 73292-7 #### [facility] ([id number]) [address], [address] [place] [id number] #### 84129-6, NAIFA #### [facility] ([id number]) [address] [place] [address] 33699 MCV (RBC) [Entitic vol] 93 fL Normal 80-100 [facility] Comment on above: Performed By: #### C BCA, 56294-7, C34, 54490-0, CMP, 1987-5, ENAP, 08967-1, 79257-4, 16201-6, 5130-0, 27161-6 #### [facility] ([id number]) [address], [address] [place] [address] #### 97204-1, NAIFA #### [facility] ([id number]) [address] [place] [address] 73241 Monocytes (Bld) [#/Vol] 0.4 10*3/uL Normal 0-0.9 [facility] Comment on above: Performed By: #### C BCA, 16116-9, C34, 89081-7, CMP, 1987-5, ENAP, 35021-9, 92021-0, 12044-8, 5130-0, 19289-6 #### [facility] ([id number]) [address], [address] [place] [address] #### 06868-0, NAIFA #### [facility] ([id number]) [address] [place] [address] 37040 Monocytes/100 WBC (Bld) 10.0 % Normal [facility] Comment on above: Performed By: #### C BCA, 98933-9, C34, 85976-9, CMP, 1987-5, ENAP, 26717-9, 37797-7, 15895-2, 5130-0, 65120-8 #### [facility] ([id number]) [address] [facility], [address] [place] [address] #### 70924-3, NAIFA #### [facility] ([id number]) [address] [place] [address] 03532 Neutrophils/100 WBC (Bld) 46.2 % Normal [facility] Comment on above: Performed By: #### C BCA, 06815-8, C34, 85994-5, CMP, 1987-5, ENAP, 11257-5, 75321-0, 90388-3, 5130-0, 52262-7 #### [facility] ([id number]) [address], [address] [place] [address] #### 13863-1, NAIFA #### [facility] ([id number]) [address] [place] [address] 05806 Platelet mean volume (Bld) [Entitic vol] 7.4 fL Normal 7-12 [facility] Comment on above: Performed By: #### C BCA, 04135-6, C34, 82660-3, CMP, 1987-07, ENAP, 45123-3, 23220-1, 46130-7, 5130-0, 01658-2 #### [facility] ([id number]) [address] [facility], [address] [place] [address] #### 25010-5, NAIFA #### [facility] ([id number]) [address] [place] [address] 37737 Platelets (Bld) [#/Vol] 389 10*3/uL Normal 150-450 [facility] Comment on above: Performed By: #### C BCA, 51096-0, C34, 18782-3, CMP, 1987-07, ENAP, 71287-6, 30682-0, 64044-0, 5130-0, 44781-1 #### [facility] ([id number]) [address], [address] [place] [address] #### 01241-4, NAIFA #### [facility] ([id number]) [address] [place] [address] 56581 RBC COUNT 3.67 X10E12/L Low 3.80-5.20 [facility] Comment on above: Performed By: #### C BCA, 47756-7, C34, 87150-4, CMP, 1987-07, ENAP, 30948-3, 14630-3, 06896-9, 5130-0, 23275-9 #### [facility] ([id number]) [address] [place] [address], [address] [address] #### 75155-4, NAIFA #### [facility] ([id number]) [address] [place] [address] WBC (Bld) [#/Vol] 3.9 10*3/uL Low 4.0-11.0 [facility] Comment on above: Performed By: #### C BCA, 52236-9, C34, 17679-1, CMP, 1987-07, ENAP, 85781-6, 27657-2, 83160-5, 5130-0, 34523-8 #### [facility] ([id number]) [address] [place] [address], [place] [address] #### 02149-6, NAIFA #### [facility] ([id number]) [address] [place] [address] 40314 COCCIDIOIDES AB REFLEXIVE JAZMYN Bhatia 12-13-2023 COCCIDIOIDES AB,IGG 0.4 IV Normal <=0.9 [facility] Comment on above: Result Comment: NOTE INTERPRETIVE INFORMATION: Coccidioides Antibody, Ig.9 IV or less: Negative - No significant level of Coccidioides IgG antibody detected. 1.0 - 1.4 IV: Equivocal - Questionable presence of Coccidioides IgG antibody detected. Repeat testing in 10-14 days may be helpful. 1.5 IV or greater: Positive - Presence of IgG antibody to Coccidioides detected, suggestive of current or past infection. IgG antibody usually appears by the third week of infection and may persist for years. Both tube precipitin (TP) and CF antigens are represented in the SHERI tests. Performed By: #### P INR, 58485-0, 3274-8 #### [facility] ([id number]) [address] [place] [address], [address] [place] [address] COCCIDIOIDES IGM 0.1 IV Normal <=0.9 [facility] Comment on above: Result Comment: NOTE INTERPRETIVE INFORMATION: Coccidioides Antibody, IgM: 0.9 IV or less: Negative - No significant level of Coccidioides IgM antibody detected. 1.0 - 1.4 IV: Equivocal - Questionable presence of Coccidioides IgM antibody detected. Repeat testing in 10-14 days may be helpful. 1.5 IV or greater: Positive - Presence of IgM antibody to Coccidioides detected, suggestive of current or recent infection. In most symptomatic patients, IgM antibody usually appears by the second week of infection and disappears by the fourth month. Both tube precipitin (TP) and CF antigens are represented in the SHERI tests. Performed By: [facility] [address] [place] [address] Instrumentation Engineering Technician: Cristopher Amos MD, PhD CLIA Number: [id number] Performed By: #### P INR, 41564-2, 3274-8 #### [facility] ([id number]) [address] [place] [address], [address] [place] [address] Heparin unfractionated Chrom ogenic method Qn (PPP)on 12-13-2023 ANTI XA UFH 1.18 IU/mL Critically high 0.30-0.70 [facility] Comment on above: Result Comment: Opti mal time for testing is 6 hrs post dosage This test is specific for monitoring patients on UFH, and is not recommended for use with other Anti-Xa medications. Performed By: #### C BCA, 85234-3, C34, 62116-6, CMP, 1988-5, ENAP, 99573-3, 41321-7, 30998-8, 5130-0, 69187-4 #### [facility] ([id number]) [address] [place] [address], [address] [place] [address] #### 53211-0, NAIFA #### [facility] ([id number]) [address] [place] [address], [place] [address] Histoplasma/Blastomyces Agon 12-13-2023 Histo/Blasto Ag Result Not detected Normal Not Detecte d [facility] Comment on above: Result Comment: NOTE No antigen from Histoplasma or Blastomyces detected. False negative results may occur depending on extent of disease, and/or site of infection. Repeat testing on a new specimen if clinically indicated. Performed By: #### P INR, 02072-8, 3274-8 #### [facility] ([id number]) [address] [facility], [address] [place] [address] Histo/Blasto Ag Value Not detected Normal P [facility] Comment on above: Result Comment: NOTE ADDITIONAL INFORMATION This test was developed and its performance characteristics determined by [facility] in a manner consistent with CLIA requirements. This test has not been cleared or approved by the U.S. Food and Drug Administration. Test Performed by: [facility] [address] [place] [address] Beverage Host: Raoul Marin Ph.D.; CLIA# [id number] Performed By: #### P INR, 14052-4, 3274-8 #### [facility] ([id number]) [address] [place] [address], [address] [place] [address] [facility] ORDERon 10-03-2 024 TEST NAME UHBAG HISTOPLASMA ANTIGEN URINE Normal [facility] TEST RESULT SEE COMMENTS 12/15/2023 01:32 PM Normal [facility] Comment on above: Result Comment: NOTE Test Result Flag Unit RefValue --- Histoplasma/Blastomyces Ag, EIA, U Histoplasma/Blastomyces Not Detected Not Detected Ag Result No antigen from Histoplasma or Blastomyces detected. False negative results may occur depending on extent of disease, and/or site of infection. Repeat testing on a new specimen if clinically indicated. Histoplasma/Blastomyces Not Detected ng/mL Ag Value ADDITIONAL INFORMATION This test was developed and its performance characteristics determined by [facility] in a manner consistent with CLIA requirements. This test has not been cleared or approved by the U.S. Food and Drug Administration. Test Performed by: [facility] [address] [place] [address] Beverage Host: Raoul Marin Ph.D.; CLIA# [id number] aPTT Coag (PPP) [Time]on aPTT Coag (Bld) [Time] 124 s Critically high [address] [place] [address] Comment on above: Performed By: #### P INR, 61565-2, 3274-8 #### [facility] ([id number]) [address] [place] [address], [address] [place] [address] aPTT Coag (Bld) [Time] 105 s Critically high [address] [place] [address] Comment on above: Result Comment: NEW REFERENCE RANGE Performed By: #### C BCA, 11325-4, C34, 45553-0, CMP, 1987-5, ENAP, 59350-4, 80974-2, 22957-1, 5130-0, 63800-0 #### [facility] ([id number]) [address] [facility], [address] [place] [address] #### 48019-3, NAIFA #### [facility] ([id number]) [address] [place] [address], [place] [address] CBC AND AUTO DIFFon 12-12-19 24 ABSOLUTE BASOPHIL 0.0 X10E9/L Normal 0.0-0.2 [facility] Comment on above: Performed By: #### C BCA, 35330-4, C34, 15230-6, CMP, 1987-07, ENAP, 24191-2, 89135-0, 69817-4, 5130-0, 48498-1 #### [facility] ([id number]) [address] [facility], [address] [place] [address] #### 69024-4, NAIFA #### [facility] ([id number]) [address] [place] [address] 20151 ABSOLUTE NEUTROPHIL 2.2 X10E9/L Normal 1.5-6.6 [facility] Comment on above: Performed By: #### C BCA, 60868-6, C34, 33130-2, CMP, 1987-5, ENAP, 26621-0, 03338-1, 41509-5, 5130-0, 78160-0 #### [facility] ([id number]) [address] [place] [address], [place] [id number] #### 15565-9, NAIFA #### [facility] ([id number]) [address] [place] [address] 19305 Basophils/100 WBC (Bld) 1.1 % Normal [facility] Comment on above: Performed By: #### C BCA, 57486-2, C34, 69034-8, CMP, 1987-5, ENAP, 78099-1, 78329-1, 00280-7, 5130-0, 90595-5 #### [facility] ([id number]) [address], [address] [place] [address] #### 30396-7, NAIFA #### [facility] ([id number]) [address] [place] [address] Eosinophils (Bld) [#/Vol] 0.0 10*3/uL Normal 0.0-0.4 [facility] Comment on above: Performed By: #### C BCA, 24574-6, C34, 87260-3, CMP, 1987-5, ENAP, 70268-6, 69202-2, 10966-3, 5130-0, 17690-0 #### [facility] ([id number]) [address] [place] [address], [address] [place] [address] #### 40593-6, NAIFA #### [facility] ([id number]) [address] [place] [address] Eosinophils/100 WBC (Bld) 0.6 % Normal [facility] Comment on above: Performed By: #### C BCA, 85449-3, C34, 81648-3, CMP, 1988-5, ENAP, 45701-3, 19894-1, 78174-7, 5130-0, 60560-2 #### [facility] ([id number]) [address] [place] [address], [address] [place], [place] [address] #### 76584-9, NAIFA #### [facility] ([id number]) [address] [place] [address] Erythrocyte distribution width (RBC) [Ratio] 15.9 % High 11.5-15.0 [facility] Comment on above: Performed By: #### C BCA, 02016-5, C34, 36459-5, CMP, 1988-5, ENAP, 02721-2, 59121-8, 18145-7, 5130-0, 14565-5 #### [facility] ([id number]) [facility] [address], [address] [place] [address] #### 86506-4, NAIFA #### [facility] ([id number]) [address] [place] [address]1509 Hematocrit (Bld) [Volume fraction] 37.9 % Normal 35-47 [facility] Comment on above: Performed By: #### C BCA, 03232-5, C34, 32379-5, CMP, 1988-5, ENAP, 70323-2, 88071-3, 42903-3, 5130-0, 58004-9 #### [facility] ([id number]) [address], [address] [place] [address] #### 22265-4, NAIFA #### [facility] ([id number]) [address] [place] [address]3440 Hemoglobin (Bld) [Mass/Vol] 12.5 g/dL Normal 11.7-15.5 [facility] Comment on above: Performed By: #### C BCA, 06695-3, C34, 55358-0, CMP, 1988-5, ENAP, 74892-7, 63423-8, 44961-3, 5130-0, 82853-4 #### [facility] ([id number]) [address], [address] [place] [address] #### 54209-5, NAIFA #### [facility] ([id number]) [address] [place] [address] 18868 Lymphocytes (Bld) [#/Vol] 0.9 10*3/uL Low 1.0-3.5 [facility] Comment on above: Performed By: #### C BCA, 78777-9, C34, 29494-8, CMP, 1987-5, ENAP, 28551-3, 32532-3, 04764-7, 5130-0, 24830-9 #### [facility] ([id number]) [address], [address] [place] [address] #### 26244-3, NAIFA #### [facility] ([id number]) [address] [place] [address]12 Lymphocytes/100 WBC (Bld) 26.4 % Normal [facility] Comment on above: Performed By: #### C BCA, 66293-2, C34, 60392-3, CMP, 1988-5, ENAP, 14177-9, 80887-3, 13886-8, 5130-0, 19490-2 #### [facility] ([id number]) [address], [address] [place] [address] #### 72592-0, NAIFA #### [facility] ([id number]) [address] [place] [address]50 MCH (RBC) [Entitic mass] 30.7 pg Normal 27-34 [facility] Comment on above: Performed By: #### C BCA, 25684-9, C34, 67782-8, CMP, 1988-5, ENAP, 98918-6, 98694-2, 70611-3, 5130-0, 69814-8 #### [facility] ([id number]) [address] [facility], [address] [place] [address] #### 23515-9, NAIFA #### [facility] ([id number]) [address] [place] [address] 035[address] MCHC (RBC) [Mass/Vol] 33.1 g/dL Normal 32-36 [facility] Comment on above: Performed By: #### C BCA, 39225-4, C34, 48051-6, CMP, 1988-5, ENAP, 72022-2, 88327-9, 17545-3, 5130-0, 91324-7 #### [facility] ([id number]) [address], [address] [place] [address] #### 70010-8, NAIFA #### [facility] ([id number]) [address] [place] [address] 97053 MCV (RBC) [Entitic vol] 93 fL Normal 80-100 [facility] Comment on above: Performed By: #### C BCA, 33110-1, C34, 73213-4, CMP, 1988-5, ENAP, 72155-7, 09196-9, 18615-9, 5130-0, 78259-7 #### [facility] ([id number]) [address], [address] [place] [address] #### 05839-0, NAIFA #### [facility] ([id number]) [address] [place] [address] 45468 Monocytes (Bld) [#/Vol] 0.3 10*3/uL Normal 0-0.9 [facility] Comment on above: Performed By: #### C BCA, 81268-4, C34, 14929-1, CMP, 1988-5, ENAP, 66659-4, 49005-7, 22170-9, 5130-0, 11871-8 #### [facility] ([id number]) [address], [address] [place] [address] #### 76348-8, NAIFA #### [facility] ([id number]) [address] [place] [address]995 Monocytes/100 WBC (Bld) 9.4 % Normal [facility] Comment on above: Performed By: #### C BCA, 86205-4, C34, 49613-0, CMP, 1987-5, ENAP, 33282-4, 11690-5, 40459-3, 5130-0, 38842-3 #### [facility] ([id number]) [address], [address] [place] [address] #### 82582-5, NAIFA #### [facility] ([id number]) [address] [place] [address] 937[address] Neutrophils/100 WBC (Bld) 62.5 % Normal [facility] Comment on above: Performed By: #### C BCA, 09695-6, C34, 65104-9, CMP, 1988-5, ENAP, 28961-9, 67323-7, 31768-0, 5130-0, 48151-7 #### [facility] ([id number]) [address], [address] [place] [address] #### 02425-5, NAIFA #### [facility] ([id number]) [address] [place] [address] Platelet mean volume (Bld) [Entitic vol] 6.7 fL Low 7-12 [facility] Comment on above: Performed By: #### C BCA, 02207-8, C34, 99179-9, CMP, 1987-5, ENAP, 95692-5, 64008-1, 18620-5, 5130-0, 22688-2 #### [facility] ([id number]) [address], [address] [place], [place] [address] #### 45907-6, NAIFA #### [facility] ([id number]) [address] [place] [address]64[address] Platelets (Bld) [#/Vol] 385 10*3/uL Normal 150-450 [facility] Comment on above: Performed By: #### C BCA, 68611-7, C34, 26839-0, CMP, 1987-5, ENAP, 90336-3, 49829-7, 96815-3, 5130-0, 40116-0 #### [facility] ([id number]) [address], [address] [place] [address] #### 77142-4, NAIFA #### [facility] ([id number]) [address] [place] [address] 36415 RBC COUNT 4.08 X10E12/L Normal 3.80-5.20 [facility] Comment on above: Performed By: #### C BCA, 62746-1, C34, 99227-9, CMP, 1987-5, ENAP, 91153-7, 05498-3, 98172-8, 5130-0, 95244-8 #### [facility] ([id number]) [address], [address] [place] [address] #### 93041-6, NAIFA #### [facility] ([id number]) [address] [place] [address] 71449 WBC (Bld) [#/Vol] 3.5 10*3/uL Low 4.0-11.0 [facility] Comment on above: Performed By: #### C BCA, 91470-9, C34, 67459-0, CMP, 1988-5, ENAP, 45560-3, 35209-6, 42542-0, 5130-0, 93149-6 #### [facility] ([id number]) [address], [address] [place] [address] #### 56001-7, NAIFA #### [facility] ([id number]) [address] [place] [address] COMPREHENSIVE METABOLIC PANE Caleb 12-12-2023 Albumin [Mass/Vol] 4.0 g/dL Normal 3.2-5.3 [facility] Comment on above: Performed By: #### C BCA, 12930-6, C34, 15380-8, CMP, 1987-5, ENAP, 00987-9, 96889-5, 41977-6, 5130-0, 57080-6 #### [facility] ([id number]) [address], [address] [place] [address] #### 85849-7, NAIFA #### [facility] ([id number]) [address] [place] [address] 15524 ALP [Catalytic activity/Vol] 133 U/L High 39-130 [facility] Comment on above: Performed By: #### C BCA, 88949-1, C34, 33281-0, CMP, 1988-5, ENAP, 89223-4, 62538-8, 81366-6, 5130-0, 91857-0 #### [facility] ([id number]) [address], [address] [place] [address] #### 50221-5, NAIFA #### [facility] ([id number]) [address] [place] [address] 03737 ALT [Catalytic activity/Vol] 30 U/L Normal 0-31 [facility] Comment on above: Performed By: #### C BCA, 00282-8, C34, 40168-4, CMP, 1987-5, ENAP, 76129-6, 25287-6, 26547-7, 5130-0, 35743-2 #### [facility] ([id number]) [address], [address] [place] [address] #### 13689-2, NAIFA #### [facility] ([id number]) [address] [place] [address] 68677 Anion gap [Moles/Vol] 10 mmol/L Normal 5-15 [facility] Comment on above: Performed By: #### C BCA, 48367-6, C34, 09282-2, CMP, 1987-5, ENAP, 15863-3, 88844-2, 66205-2, 5130-0, 37256-1 #### [facility] ([id number]) [address], [address] [place] [address] #### 96504-3, NAIFA #### [facility] ([id number]) [address] [place] [address] 70248 AST [Catalytic activity/Vol] 49 U/L High 0-41 [facility] Comment on above: Performed By: #### C BCA, 10004-8, C34, 22989-4, CMP, 1987-5, ENAP, 42545-5, 92301-6, 86572-9, 5130-0, 08371-8 #### [facility] ([id number]) [address], [address] [place] [address] #### 93096-4, NAIFA #### [facility] ([id number]) [address] [place] [address] 48799 Bilirubin [Mass/Vol] 0.7 mg/dL Normal 0.3-1.2 [facility] Comment on above: Performed By: #### C BCA, 40370-1, C34, 57365-6, CMP, 1988-5, ENAP, 30414-8, 95835-6, 79413-7, 5130-0, 59243-1 #### [facility] ([id number]) [address], [address] [place] [address] #### 68152-8, NAIFA #### [facility] ([id number]) [address] [place] [address] 53738 Calcium [Mass/Vol] 8.9 mg/dL Normal 8.5-10.5 [facility] Comment on above: Performed By: #### C BCA, 18918-8, C34, 18438-6, CMP, 1987-5, ENAP, 12749-0, 42895-4, 39211-7, 5130-0, 21787-1 #### [facility] ([id number]) [address], [address] [place] [address] #### 44067-7, NAIFA #### [facility] ([id number]) [address] [place] [address] 34293 Chloride [Moles/Vol] 107 mmol/L Normal 98-109 [facility] Comment on above: Performed By: #### C BCA, 09382-8, C34, 08263-8, CMP, 1988-5, ENAP, 79033-4, 49853-2, 95627-2, 5130-0, 92343-9 #### [facility] ([id number]) [address], [address] [place] [address] #### 65932-8, NAIFA #### [facility] ([id number]) [address] [place] [address] 41316 CO2 [Moles/Vol] 21 mmol/L Low 22-32 [facility] Comment on above: Performed By: #### C BCA, 54561-9, C34, 19538-5, CMP, 1988-5, ENAP, 44713-9, 47750-1, 76530-2, 5130-0, 43879-2 #### [facility] ([id number]) [address], [address] [place] [address] #### 83067-4, NAIFA #### [facility] ([id number]) [address] [place] [address] 65949 Creatinine [Mass/Vol] 0.78 mg/dL Normal 0.40-1.00 [facility] Comment on above: Result Comment: METH OD TRACEABLE TO IDMS STANDARD Performed By: #### C BCA, 01747-2, C34, 19560-2, CMP, 1988-5, ENAP, 78681-5, 84338-9, 81699-6, 5130-0, 67661-8 #### [facility] ([id number]) [address], [address] [place] [address] #### 40648-2, NAIFA #### [facility] ([id number]) [address] [place] [address] 29807 eGFR (CKD-EPI) NON-RACE DEPENDENT >90 Normal >59 [facility] Comment on above: Result Comment: Reported eGFR is based on the CKD-EPI 2020 equation that does not use a race coefficient. Performed By: #### C BCA, 17782-5, C34, 59303-3, CMP, 1987-5, ENAP, 88248-0, 19778-4, 10005-7, 5130-0, 05420-5 #### [facility] ([id number]) [address], [address] [place] [address] #### 90205-5, NAIFA #### [facility] ([id number]) [address] [place] [address] 25973 Glucose [Mass/Vol] 123 mg/dL High 65-99 [facility] Comment on above: Performed By: #### C BCA, 60244-5, C34, 19798-5, CMP, 1987-, ENAP, 38601-8, 03985-2, 15909-9, 5130-0, 18723-4 #### [facility] ([id number]) [address], [address] [place] [address] #### 35056-0, NAIFA #### [facility] ([id number]) [address] [place] [address] 46554 Potassium [Moles/Vol] 4.0 mmol/L Normal 3.5-5.0 [facility] Comment on above: Performed By: #### C BCA, 95253-1, C34, 51603-9, CMP, 1987-, ENAP, 36609-7, 43562-0, 06814-7, 5130-0, 56072-5 #### [facility] ([id number]) [address], [address] [place] [address] #### 24294-5, NAIFA #### [facility] ([id number]) [address] [place] [address] 44165 Protein [Mass/Vol] 8.0 g/dL Normal 6.0-8.0 [facility] Comment on above: Performed By: #### C BCA, 64606-4, C34, 11271-9, CMP, 1987-5, ENAP, 24554-0, 60269-5, 95028-0, 5130-0, 23869-8 #### [facility] ([id number]) [address], [address] [place] [address] #### 76671-5, NAIFA #### [facility] ([id number]) [address] [place] [address] 32884 Sodium [Moles/Vol] 138 mmol/L Normal 134-146 [facility] Comment on above: Performed By: #### C BCA, 90357-5, C34, 22577-3, CMP, 1987-5, ENAP, 99195-9, 17265-0, 61094-0, 5130-0, 73855-9 #### [facility] ([id number]) [address], [address] [place] [address] #### 74426-6, NAIFA #### [facility] ([id number]) [address] [place] [address] 06332 Urea nitrogen [Mass/Vol] 6 mg/dL Normal 5-23 [facility] Comment on above: Performed By: #### C BCA, 84706-5, C34, 84740-4, CMP, 1987-5, ENAP, 49168-7, 04380-1, 49377-2, 5130-0, 59111-1 #### [facility] ([id number]) [address], [address] [place] [address] #### 05574-2, NAIFA #### [facility] ([id number]) [address] [place] [address] CTA CHESTon 12-12-[address] CTA CHEST EXAM: CT PULMONARY ANGIOGRAM OF THE CHEST WITH CONTRAST CLINICAL INFORMATION: Pulmonary embolism (PE) suspected, high prob. TECHNIQUE: CT angiography of the chest was performed utilizing thin section axial images with coronal and sagittal reformatted images generated. 3-D maximum intensity projection coronal and sagittal reformatted images generated and reviewed. Images acquired following the uneventful administration of nonionic intravenous contrast. Automated exposure control was utilized. COMPARISON: 12/06/2023 FINDINGS: There is adequate opacification of the pulmonary arteries. Again seen are acute pulmonary emboli within the distal right main pulmonary artery extending into the lobar and segmental branches. Small acute pulmonary emboli within the left segmental branches of the pulmonary arteries are also again noted. The overall burden of pulmonary emboli has decreased since the 12/06/2023 comparison examination. Stable appearance of a 3.5 cm mass in the medial right lower lobe. There is only mild bibasilar atelectasis. There are no pleural effusions. There is no pericardial effusion. There remains pathologically enlarged left axillary lymph nodes, which appears slightly improved since 12/06/2023. The largest lymph node which appears to contain a biopsy marker clip now measures 2.6 cm (previously measured 3.1 cm). The thoracic aorta is normal in diameter. There are no appreciable coronary artery calcifications. The limited visualized upper abdominal contents demonstrates hepatic steatosis and postsurgical changes of the stomach and GE junction. IMPRESSION: 1. Redemonstration of pulmonary emboli within the distal right main pulmonary artery extending into the lobar and segmental branches and small acute segmental left-sided pulmonary emboli. The overall burden of pulmonary emboli has decreased since the 12/06/2023 comparison examination. 2. Persistent but slightly improved pathologic left axillary lymphadenopathy, as above. 3. Stable appearance of a 3.5 cm mass in the medial right lower lobe, suspicious for malignancy. This could represent pulmonary metastasis versus a primary bronchogenic carcinoma. 4. The limited visualized upper abdomen again demonstrates postsurgical changes of the GE junction and stomach and hepatic steatosis. All CT scans at this facility use dose modulation, iterative reconstruction, and/or weight based dosing when appropriate to reduce radiation dose to as low as reasonably achievable. Finalized by Rah Vaz MD on 12/12/2023 6:55 PM Normal [facility] Fibrin D-dimer DDU (PPP) [Ma ss/Vol]on 12-12-2023 D DIMER 714 ng/mL DDU High <255 [facility] Comment on above: Result Comment: Results >=255ng/mL DDU: Results may be indicative of the presence of VTE. The use of the Wells score and further diagnostic tests should be considered. Elevated D-Dimer levels can also be associated with DIC, neoplasm, , trauma and liver disease. Elevated levels of rheumatoid factor may lead to an overestimation of the D-Dimer level. Performed By: #### C BCA, 33975-9, C34, 82238-7, CMP, 1987-5, ENAP, 86987-3, 76280-0, 34212-6, 5130-0, 64745-1 #### [facility] ([id number]) [address], [address] [place] [address] #### 26187-2, NAIFA #### [facility] ([id number]) [address] [place] [address] 92428 Natriuretic peptide B [Mass/ Vol]on 12-12-2023 Natriuretic peptide B (Bld) [Mass/Vol] 43 pg/mL Normal <100.0 [facility] Comment on above: Performed By: #### C BCA, 22417-2, C34, 72320-5, CMP, 1987-, ENAP, 38283-8, 35919-9, 38504-5, 5130-0, 80689-9 #### [facility] ([id number]) [address], [address] [place] [address] #### 84640-9, NAIFA #### [facility] ([id number]) [address] [place] [address] 33685 PROTIME AND INRon 12-12-2023 INR Coag (PPP) [Relative time] 2.2 {INR} High 0.8-1.1 [facility] Comment on above: Performed By: #### C BCA, 60115-0, C34, 24483-1, CMP, 1987-5, ENAP, 46415-7, 27105-7, 92443-9, 5130-0, 81731-6 #### [facility] ([id number]) [address], [address] [place] [address] #### 07133-2, NAIFA #### [facility] ([id number]) [address] [place] [address] PT Coag (PPP) [Time] 24.7 s High 9.8-13.2 [facility] Comment on above: Result Comment: NEW REFERENCE RANGE Performed By: #### C BCA, 92969-5, C34, 22826-5, CMP, 1988-5, ENAP, 79492-1, 84429-0, 79975-8, 5130-0, 42722-1 #### [facility] ([id number]) [address] [facility], [address] [place] [address] #### 69664-0, NAIFA #### [facility] ([id number]) [address] [place] [address] SARS/FLU A+B/RSV by NAAT/Mol ecularon 12-12-2023 SARS/FLU A+B/RSV by NAAT/Molecular FLU A PCR Negative (qualifier value) FLU B PCR Negative (qualifier value) RSV by PCR Negative (qualifier value) SARS CoV 2 Not detected (qualifier value) NOTE The Xpert Xpress SARS-CoV-2/Flu/RSV Plus test is a rapid, multiplexed real-time RT-PCR test intended for the simultaneous qualitative detection and differentiation of SARS-CoV-2, influenza A, influenza B and respiratory syncytial virus (RSV) viral RNA from individuals suspected of respiratory viral infection consistent with COVID-19 by their healthcare provider. This test has not been validated in asymptomatic patients. The Xpert Xpress SARS-CoV-2 test is intended for use by qualified and trained operators who are performing tests using either [employer] or [employer] systems and is limited to laboratories that meet the CLIA requirements to perform high and moderate complexity tests. The Xpert Xpress SARS-CoV-2/Flu/RSV Plus is only for use under the Food and Drug Administration's Emergency Use Authorization. Results are for the simultaneous detection and differentiation of SARS-CoV-2, influenza A, influenza B and RSV nucleic acids in clinical specimens. SARS-CoV-2, influenza A, influenza B and RSV RNA identified by this test are generally detectable in upper respiratory samples during the acute phase of infection. Positive results are indicative of the presence of the identified virus, but do not rule out bacterial infection or co-infection with other pathogens not detected by this test. Clinical correlation with patient history and other diagnostic information is necessary to determine patient infection status. The agent detected may not be the definite cause of disease. Negative results do not preclude SARS-CoV-2, influenza A, influenza B and RSV infection and should not be used as the sole basis for treatment or other patient management decisions. Negative results must be combined with clinical observations, patient history and epidemiological information. An Invalid result may occur with specimen-associated inhibition unable to be resolved with specimen repeat. Fact Sheet for Healthcare Providers: https://www.fda.gov/me rosanne/940077/download Fact Sheet for Patients: https://www.fda.gov/sc rosanne/499668/download Normal [facility] Comment on above: Performed By: #### C BCA, 02486-4, C34, 92032-1, CMP, 1987-, ENAP, 10926-6, 24687-3, 05924-8, 5130-0, 75452-1 #### [facility] ([id number]) [address], [address] [place] [address] #### 85706-9, NAIFA #### [facility] ([id number]) [address] [place] [address], [place] [address] Troponin I.cardiac High sens itivity method [Mass/Vol]on 12-12-2023 1 HOUR TROP I, HIGH SENSITIVITY 7 ng/L Normal <16 [facility] Comment on above: Performed By: #### C BCA, 50344-5, C34, 08888-9, CMP, 1987-5, ENAP, 83165-9, 46160-2, 95451-7, 5130-0, 37904-4 #### [facility] ([id number]) [address], [address] [place] [address] #### 27391-9, NAIFA #### [facility] ([id number]) [address] [place] [address] 58748 TROPONIN I, HIGH SENSITIVITY 6 ng/L Normal <16 [facility] Comment on above: Performed By: #### C BCA, 64272-8, C34, 33086-7, CMP, 1987-07, ENAP, 50484-7, 12096-2, 76710-2, 5130-0, 93751-8 #### [facility] ([id number]) [address] [facility] [facility] [address] [place] [address] #### 92924-9, NAIFA #### [facility] ([id number]) [address] [place] [address] 02725 aPTT Coag (PPP) [Time]on aPTT Coag (Bld) [Time] 46 s High 26-37 [facility] Comment on above: Result Comment: NEW REFERENCE RANGE Performed By: #### C BCA, 15990-0, C34, 38733-6, CMP, 1987-, ENAP, 58290-1, 85191-5, 91566-4, 5130-0, 91828-0 #### [facility] ([id number]) [address] [facility] [facility] [address] [place] [address] #### 65163-5, NAIFA #### [facility] ([id number]) [address] [place] [address] 28912 CBC AND AUTO DIFFon 12-09-19 24 ABSOLUTE BASOPHIL 0.0 X10E9/L Normal 0.0-0.2 [facility] Comment on above: Performed By: #### V PPCR #### [facility] ([id number]) [address] [place] [address], [address] [place] [address] ABSOLUTE NEUTROPHIL 1.6 X10E9/L Normal 1.5-6.6 [facility] Comment on above: Performed By: #### V PPCR #### [facility] ([id number]) [address], [address] [place] [address] Basophils/100 WBC (Bld) 0.7 % Normal [facility] Comment on above: Performed By: #### V PPCR #### [facility] ([id number]) [address] [place] [address] Eosinophils (Bld) [#/Vol] 0.0 10*3/uL Normal 0.0-0.4 [facility] Comment on above: Performed By: #### V PPCR #### [facility] ([id number]) [address], [address] [place] [address] Eosinophils/100 WBC (Bld) 1.4 % Normal [facility] Comment on above: Performed By: #### V PPCR #### [facility] ([id number]) [address], [address] [place] [address] Erythrocyte distribution width (RBC) [Ratio] 16.2 % High 11.5-15.0 [facility] Comment on above: Performed By: #### V PPCR #### [facility] ([id number]) [address] [place] [address] Hematocrit (Bld) [Volume fraction] 32.3 % Low 35-47 [facility] Comment on above: Performed By: #### V PPCR #### [facility] ([id number]) [address] [place] [address] Hemoglobin (Bld) [Mass/Vol] 9.9 g/dL Low 11.7-15.5 [facility] Comment on above: Performed By: #### V PPCR #### [facility] ([id number]) [address], [address] [place] [address] Lymphocytes (Bld) [#/Vol] 1.1 10*3/uL Normal 1.0-3.5 [facility] Comment on above: Performed By: #### V PPCR #### [facility] ([id number]) [address], [address] [place] [address] Lymphocytes/100 WBC (Bld) 36.9 % Normal [facility] Comment on above: Performed By: #### V PPCR #### [facility] ([id number]) [address], [address] [place] [address] MCH (RBC) [Entitic mass] 28.2 pg Normal 27-34 [facility] Comment on above: Performed By: #### V PPCR #### [facility] ([id number]) [address], [address] [place] [address] MCHC (RBC) [Mass/Vol] 30.8 g/dL Low 32-36 [facility] Comment on above: Performed By: #### V PPCR #### [facility] ([id number]) [address], [address] [place] [address] MCV (RBC) [Entitic vol] 92 fL Normal 80-100 [facility] Comment on above: Performed By: #### V PPCR #### [facility] ([id number]) [address], [address] [place] [address] Monocytes (Bld) [#/Vol] 0.3 10*3/uL Normal 0-0.9 [facility] Comment on above: Performed By: #### V PPCR #### [facility] ([id number]) [address], [address] [place] [address] Monocytes/100 WBC (Bld) 11.1 % Normal [facility] Comment on above: Performed By: #### V PPCR #### [facility] ([id number]) [address], [address] [place] [address] Neutrophils/100 WBC (Bld) 49.9 % Normal [facility] [facility] Comment on above: Performed By: #### V PPCR #### [facility] ([id number]) [address], [address] [place] [address] Platelet mean volume (Bld) [Entitic vol] 7.5 fL Normal 7-12 [facility] Comment on above: Performed By: #### V PPCR #### [facility] ([id number]) [address], [address] [place] [address] Platelets (Bld) [#/Vol] 335 10*3/uL Normal 150-450 [facility] Comment on above: Performed By: #### V PPCR #### [facility] ([id number]) [address], [address] [place] [address] RBC COUNT 3.52 X10E12/L Low 3.80-5.20 [facility] Comment on above: Performed By: #### V PPCR #### [facility] ([id number]) [address], [address] [place] [address] WBC (Bld) [#/Vol] 3.1 10*3/uL Low 4.0-11.0 [facility] Comment on above: Performed By: #### V PPCR #### [facility] ([id number]) [address], [address] [place] [address] COMPREHENSIVE METABOLIC PANE Caleb 12-09-2023 Albumin [Mass/Vol] 3.4 g/dL Normal 3.2-5.3 [facility] Comment on above: Performed By: #### P INR, 53801-8, 3274-8 #### [facility] ([id number]) [address], [address] [place] [address] ALP [Catalytic activity/Vol] 99 U/L Normal 39-130 [facility] Comment on above: Performed By: #### P INR, 52386-1, 3273-8 #### [facility] ([id number]) [address], [address] [place] [address] ALT [Catalytic activity/Vol] 21 U/L Normal 0-31 [facility] Comment on above: Performed By: #### P INR, 87336-5, 3273-8 #### [facility] ([id number]) [address], [address] [place] [address] Anion gap [Moles/Vol] 9 mmol/L Normal 5-15 [facility] Comment on above: Performed By: #### P INR, 50231-6, 3273-8 #### [facility] ([id number]) [address], [address] [place] [address] AST [Catalytic activity/Vol] 33 U/L Normal 0-41 [facility] Comment on above: Performed By: #### P INR, 18830-7, 3273-8 #### [facility] ([id number]) [address], [address] [place] [address] Bilirubin [Mass/Vol] 0.3 mg/dL Normal 0.3-1.2 [facility] Comment on above: Performed By: #### P INR, 13244-2, 3273-8 #### [facility] ([id number]) [address], [address] [place] [address] Calcium [Mass/Vol] 8.4 mg/dL Low 8.5-10.5 [facility] Comment on above: Performed By: #### P INR, 73627-8, 3273-8 #### [facility] ([id number]) [address], [address] [place] [address] Chloride [Moles/Vol] 110 mmol/L High 98-109 [facility] Comment on above: Performed By: #### P INR, 27365-5, 3273-8 #### [facility] ([id number]) [address], [address] [place] [address] CO2 [Moles/Vol] 23 mmol/L Normal 22-32 [facility] Comment on above: Performed By: #### P INR, 78339-9, 3273-8 #### [facility] ([id number]) [address], [address] [place] [address] Creatinine [Mass/Vol] 0.74 mg/dL Normal 0.40-1.00 [facility] Comment on above: Result Comment: METH OD TRACEABLE TO IDMS STANDARD Performed By: #### P INR, 97976-1, 3273-8 #### [facility] ([id number]) [address], [address] [place] [address] eGFR (CKD-EPI) NON-RACE DEPENDENT >90 Normal >59 [facility] Comment on above: Result Comment: Reported eGFR is based on the CKD-EPI 2020 equation that does not use a race coefficient. Performed By: #### P INR, 16953-8, 3273-8 #### [facility] ([id number]) [address], [address] [place] [address] Glucose [Mass/Vol] 113 mg/dL High 65-99 [facility] Comment on above: Performed By: #### P INR, 43350-4, 3273-8 #### [facility] ([id number]) [address], [address] [place] [address] Potassium [Moles/Vol] 4.2 mmol/L Normal 3.5-5.0 [facility] Comment on above: Result Comment: SPEC IMEN HEMOLYZED, RESULTS INCREASED MODERATELY HEMOLYZED Performed By: #### P INR, 22088-0, 3273-8 #### [facility] ([id number]) [address], [address] [place] [address] Protein [Mass/Vol] 6.2 g/dL Normal 6.0-8.0 [facility] Comment on above: Performed By: #### P INR, 22466-0, 3273-8 #### [facility] ([id number]) [address], [address] [place] [address] Sodium [Moles/Vol] 142 mmol/L Normal 134-146 [facility] Comment on above: Performed By: #### P INR, 01257-4, 3273-8 #### [facility] ([id number]) [address], [facility] [address] [place] [address] Urea nitrogen [Mass/Vol] 7 mg/dL Normal 5-23 [facility] Comment on above: Performed By: #### P INR, 67748-6, 3273-8 #### [facility] ([id number]) [address], [address] [place] [address] Heparin unfractionated Chrom ogenic method Qn (PPP)on 12-09-2023 ANTI XA UFH 0.19 IU/mL Low 0.30-0.70 [facility] Comment on above: Result Comment: Opti mal time for testing is 6 hrs post dosage This test is specific for monitoring patients on UFH, and is not recommended for use with other Anti-Xa medications. Performed By: #### P INR, 15228-5, 3273-8 #### [facility] ([id number]) [address], [address] [place] [address] MAGNESIUMon 12-09-2023 Magnesium [Mass/Vol] 1.8 mg/dL Normal 1.8-2.6 [facility] Comment on above: Performed By: #### P INR, 02674-4, 3273-8 #### [facility] ([id number]) [address], [address] [place] [address] PROTIME AND INRon 12-09-2023 INR Coag (PPP) [Relative time] 1.1 {INR} Normal 0.8-1.1 [facility] Comment on above: Performed By: #### V PPCR #### [facility] ([id number]) [address], [address] [place] [address] PT Coag (PPP) [Time] 13.2 s Normal 9.8-13.2 [facility] Comment on above: Performed By: #### V PPCR #### [facility] ([id number]) [address], [address] [place] [address] aPTT Coag (PPP) [Time]on aPTT Coag (Bld) [Time] 38 s High 26-37 [facility] Comment on above: Performed By: #### V PPCR #### [facility] ([id number]) [address], [address] [place] [address] CBC AND AUTO DIFFon 12-08-19 24 Eosinophils (Bld) [#/Vol] 0.1 10*3/uL Normal 0.0-0.4 [facility] Comment on above: Performed By: #### 6 30-4 #### [facility] ([id number]) [address], [address] [place] [address] Eosinophils/100 WBC (Bld) 1.9 % Normal [facility] Comment on above: Performed By: #### 6 30-4 #### [facility] ([id number]) [address], [address] [place] [address] Erythrocyte distribution width (RBC) [Ratio] 15.8 % High 11.5-15.0 [facility] Comment on above: Performed By: #### 6 30-4 #### [facility] ([id number]) [address], [address] [place] [address] Hematocrit (Bld) [Volume fraction] 32.7 % Low 35-47 [facility] Comment on above: Performed By: #### 6 30-4 #### [facility] ([id number]) [address], [address] [place] [address] Hemoglobin (Bld) [Mass/Vol] 10.8 g/dL Low 11.7-15.5 [facility] Comment on above: Performed By: #### 6 30-4 #### [facility] ([id number]) [address], [address] [place] [address] Lymphocytes (Bld) [#/Vol] 1.0 10*3/uL Normal 1.0-3.5 [facility] Comment on above: Performed By: #### 6 30-4 #### [facility] ([id number]) [address], [address] [place] [address] Lymphocytes/100 WBC (Bld) 34.3 % Normal [facility] Comment on above: Performed By: #### 6 30-4 #### [facility] ([id number]) [address], [address] [place] [address] MCH (RBC) [Entitic mass] 30.3 pg Normal 27-34 [facility] Comment on above: Performed By: #### 6 30-4 #### [facility] ([id number]) [address], [address] [place] [address] MCHC (RBC) [Mass/Vol] 33.1 g/dL Normal 32-36 [facility] Comment on above: Performed By: #### 6 30-4 #### [facility] ([id number]) [address], [address] [place] [address] MCV (RBC) [Entitic vol] 92 fL Normal 80-100 [facility] Comment on above: Performed By: #### 6 30-4 #### [facility] ([id number]) [address], [address] [place] [address] Monocytes (Bld) [#/Vol] 0.2 10*3/uL Normal 0-0.9 [facility] Comment on above: Performed By: #### 6 30-4 #### [facility] ([id number]) [address], [facility] [address] [place] [address] Monocytes/100 WBC (Bld) 8.6 % Normal [facility] Comment on above: Performed By: #### 6 30-4 #### [facility] ([id number]) [address], [facility] [address] [place] [address] Neutrophils (Bld) [#/Vol] 1.5 10*3/uL Normal 1.5-6.6 [facility] Comment on above: Performed By: #### 6 30-4 #### [facility] ([id number]) [address], [facility] [address] [place] [address] Platelet mean volume (Bld) [Entitic vol] 6.7 fL Low 7-12 [facility] Comment on above: Performed By: #### 6 30-4 #### [facility] ([id number]) [address], [address] [place] [address] Platelets (Bld) [#/Vol] 297 10*3/uL Normal 150-450 [facility] Comment on above: Performed By: #### 6 30-4 #### [facility] ([id number]) [address], [address] [place] [address] RBC COUNT 3.56 X10E12/L Low 3.80-5.20 [facility] Comment on above: Performed By: #### 6 30-4 #### [facility] ([id number]) [address], [address] [place] [address] RBC morphology finding Nom (Bld) NORMAL Normal [facility] Comment on above: Performed By: #### 6 30-4 #### [facility] ([id number]) [address], [address] [place] [address] SEG NEUTROPHIL 55.2 % Normal [facility] Comment on above: Performed By: #### 6 30-4 #### [facility] ([id number]) [address], [address] [place] [address] WBC (Bld) [#/Vol] 2.8 10*3/uL Low 4.0-11.0 [facility] Comment on above: Performed By: #### 6 30-4 #### [facility] ([id number]) [address], [address] [place] [address] COMPREHENSIVE METABOLIC PANE Caleb 12-08-2023 Albumin [Mass/Vol] 3.2 g/dL Normal 3.2-5.3 [facility] Comment on above: Performed By: #### 6 30-4 #### [facility] ([id number]) [address], [address] [place] [address] ALP [Catalytic activity/Vol] 100 U/L Normal 39-130 [facility] Comment on above: Performed By: #### 6 30-4 #### [facility] ([id number]) [address], [address] [place] [address] ALT [Catalytic activity/Vol] 19 U/L Normal 0-31 [facility] Comment on above: Performed By: #### 6 30-4 #### [facility] ([id number]) [address], [address] [place] [address] Anion gap [Moles/Vol] 8 mmol/L Normal 5-15 [facility] Comment on above: Performed By: #### 6 30-4 #### [facility] ([id number]) [address] [place] [address] AST [Catalytic activity/Vol] 28 U/L Normal 0-41 [facility] Comment on above: Performed By: #### 6 30-4 #### [facility] ([id number]) [address], [address] [place] [address] Bilirubin [Mass/Vol] 0.5 mg/dL Normal 0.3-1.2 [facility] Comment on above: Performed By: #### 6 30-4 #### [facility] ([id number]) [address], [address] [place] [address] Calcium [Mass/Vol] 8.1 mg/dL Low 8.5-10.5 [facility] Comment on above: Performed By: #### 6 30-4 #### [facility] ([id number]) [address], [address] [place] [address] Chloride [Moles/Vol] 109 mmol/L Normal 98-109 [facility] Comment on above: Performed By: #### 6 30-4 #### [facility] ([id number]) [address], [address] [place] [address] CO2 [Moles/Vol] 25 mmol/L Normal 22-32 [facility] Comment on above: Performed By: #### 6 30-4 #### [facility] ([id number]) [address], [address] [place] [address] Creatinine [Mass/Vol] 0.64 mg/dL Normal 0.40-1.00 [facility] Comment on above: Result Comment: METH OD TRACEABLE TO IDMS STANDARD Performed By: #### 6 30-4 #### [facility] ([id number]) [address], [address] [place] [address] eGFR (CKD-EPI) NON-RACE DEPENDENT >90 Normal >59 [facility] Comment on above: Result Comment: Reported eGFR is based on the CKD-EPI 2020 equation that does not use a race coefficient. Performed By: #### 6 30-4 #### [facility] ([id number]) [address] [place] [address] Glucose [Mass/Vol] 99 mg/dL Normal 65-99 [facility] Comment on above: Performed By: #### 6 30-4 #### [facility] ([id number]) [address], [address] [place] [address] Potassium [Moles/Vol] 3.6 mmol/L Normal 3.5-5.0 [facility] Comment on above: Performed By: #### 6 30-4 #### [facility] ([id number]) [address], [address] [place] [address] Protein [Mass/Vol] 6.0 g/dL Normal 6.0-8.0 [facility] Comment on above: Performed By: #### 6 30-4 #### [facility] ([id number]) [address] [place] [address] Sodium [Moles/Vol] 142 mmol/L Normal 134-146 [facility] Comment on above: Performed By: #### 6 30-4 #### [facility] ([id number]) [address], [address] [place] [address] Urea nitrogen [Mass/Vol] 5 mg/dL Normal 5-23 [facility] Comment on above: Performed By: #### 6 30-4 #### [facility] ([id number]) [address], [address] [place] [address] Fibrinogen Coagulation.deriv ed (PPP) [Mass/Vol]on 12-08-2023 FIBRINOGEN 365 mg/dL Normal 190-480 [facility] Comment on above: Performed By: #### V PPCR #### [facility] ([id number]) [address], [address] [place] [address] FIBRINOGEN 358 mg/dL Normal 190-480 [facility] Comment on above: Performed By: #### 6 30-4 #### [facility] ([id number]) [address], [address] [place] [address] HGB AND HCTon 12-08-2023 Hematocrit (Bld) [Volume fraction] 32.8 % Low 35-47 [facility] Comment on above: Performed By: #### 6 30-4 #### [facility] ([id number]) [address], [address] [place] [address] Hemoglobin (Bld) [Mass/Vol] 10.9 g/dL Low 11.7-15.5 [facility] Comment on above: Performed By: #### 6 30-4 #### [facility] ([id number]) [address], [address] [place] [address] Heparin unfractionated Chrom ogenic method Qn (PPP)on 12-08-2023 ANTI XA UFH 0.05 IU/mL Low 0.30-0.70 [facility] Comment on above: Result Comment: Opti mal time for testing is 6 hrs post dosage This test is specific for monitoring patients on UFH, and is not recommended for use with other Anti-Xa medications. Performed By: #### V PPCR #### [facility] ([id number]) [address], [address] [place] [address] MAGNESIUMon 12-08-2023 Magnesium [Mass/Vol] 2.2 mg/dL Normal 1.8-2.6 [facility] Comment on above: Performed By: #### V PPCR #### [facility] ([id number]) [address], [address] [place] [address] Magnesium [Mass/Vol] 1.8 mg/dL Normal 1.8-2.6 [facility] Comment on above: Performed By: #### V PPCR #### [facility] ([id number]) [address], [address] [place] [address] PLATELET COUNT AND MPVon Platelet mean volume (Bld) [Entitic vol] 7.0 fL Normal 7-12 [facility] Comment on above: Performed By: #### 6 30-4 #### [facility] ([id number]) [address], [address] [place] [address] Platelets (Bld) [#/Vol] 293 10*3/uL Normal 150-450 [facility] Comment on above: Performed By: #### 6 30-4 #### [facility] ([id number]) [address], [address] [place] [address] POTASSIUMon 12-08-2023 Potassium [Moles/Vol] 3.8 mmol/L Normal 3.5-5.0 [facility] Comment on above: Performed By: #### V PPCR #### [facility] ([id number]) [address], [address] [place] [address] PROTIME AND INRon 12-08-2023 INR Coag (PPP) [Relative time] 1.1 {INR} Normal 0.8-1.1 [facility] Comment on above: Performed By: #### V PPCR #### [facility] ([id number]) [address], [address] [place] [address] PT Coag (PPP) [Time] 12.8 s Normal 9.8-13.2 [facility] Comment on above: Performed By: #### V PPCR #### [facility] ([id number]) [address], [address] [place] [address] aPTT Coag (PPP) [Time]on aPTT Coag (Bld) [Time] 34 s Normal 26-37 [facility] Comment on above: Performed By: #### V PPCR #### [facility] ([id number]) [address], [address] [place] [address] BASIC METABOLIC PANLon 12-06 Anion gap [Moles/Vol] 12 mmol/L Normal 5-15 [facility] Comment on above: Performed By: #### 6 30-4 #### [facility] ([id number]) [address], [address] [place] [address] Calcium [Mass/Vol] 8.2 mg/dL Low 8.5-10.5 [facility] Comment on above: Performed By: #### 6 30-4 #### [facility] ([id number]) [address], [address] [place] [address] Chloride [Moles/Vol] 107 mmol/L Normal 98-109 [facility] Comment on above: Performed By: #### 6 30-4 #### [facility] ([id number]) [address], [address] [place] [address] CO2 [Moles/Vol] 23 mmol/L Normal 22-32 [facility] Comment on above: Performed By: #### 6 30-4 #### [facility] ([id number]) [address], [address] [place] [address] Creatinine [Mass/Vol] 0.68 mg/dL Normal 0.40-1.00 [facility] Comment on above: Result Comment: METH OD TRACEABLE TO IDMS STANDARD Performed By: #### 6 30-4 #### [facility] ([id number]) [address], [address] [place] [address] eGFR (CKD-EPI) NON-RACE DEPENDENT >90 Normal >59 [facility] Comment on above: Result Comment: Reported eGFR is based on the CKD-EPI 2020 equation that does not use a race coefficient. Performed By: #### 6 30-4 #### [facility] ([id number]) [address], [address] [place] [address] Glucose [Mass/Vol] 89 mg/dL Normal 65-99 [facility] Comment on above: Performed By: #### 6 30-4 #### [facility] ([id number]) [address], [address] [place] [address] Potassium [Moles/Vol] 3.7 mmol/L Normal 3.5-5.0 [facility] Comment on above: Performed By: #### 6 30-4 #### [facility] ([id number]) [address] [place] [address] Sodium [Moles/Vol] 142 mmol/L Normal 134-146 [facility] Comment on above: Performed By: #### 6 30-4 #### [facility] ([id number]) [address], [address] [place] [address] Urea nitrogen [Mass/Vol] 6 mg/dL Normal 5-23 [facility] Comment on above: Performed By: #### 6 30-4 #### [facility] ([id number]) [address], [address] [place] [address] Fibrinogen Coagulation.deriv ed (PPP) [Mass/Vol]on 12-07-2023 FIBRINOGEN 370 mg/dL Normal 190-480 [facility] Comment on above: Performed By: #### 6 30-4 #### [facility] ([id number]) [address], [facility] [address] [place] [address] HGB AND HCTon 12-07-2023 Hematocrit (Bld) [Volume fraction] 34.1 % Low 35-47 [facility] Comment on above: Performed By: #### H H, PLTCT, 70818-0, PINR, 13898-8, 3274-8, BMP #### [facility] ([id number]) [address] [place] [address] Hemoglobin (Bld) [Mass/Vol] 11.4 g/dL Low 11.7-15.5 [facility] Comment on above: Performed By: #### H H, PLTCT, 10371-4, PINR, 18715-7, 3274-8, BMP #### [facility] ([id number]) [address], [address] [place] [address] Heparin unfractionated Chrom ogenic method Qn (PPP)on 12-07-2023 ANTI XA UFH 0.86 IU/mL High 0.30-0.70 [facility] Comment on above: Result Comment: Opti mal time for testing is 6 hrs post dosage This test is specific for monitoring patients on UFH, and is not recommended for use with other Anti-Xa medications. Performed By: #### 6 30-4 #### [facility] ([id number]) [address] [facility] [place] [address] ANTI XA UFH 0.65 IU/mL Normal 0.30-0.70 [facility] Comment on above: Result Comment: Opti mal time for testing is 6 hrs post dosage This test is specific for monitoring patients on UFH, and is not recommended for use with other Anti-Xa medications. Performed By: #### P INR, 21973-7, 3274-8 #### [facility] ([id number]) [address] [place] [address] Natriuretic peptide B [Mass/ Vol]on 12-07-2023 Natriuretic peptide B (Bld) [Mass/Vol] 121 pg/mL High <100.0 [facility] Comment on above: Performed By: #### 3 0934-4 #### [facility] ([id number]) [address], [address] [place] [address] PLATELET COUNT AND MPVon Platelet mean volume (Bld) [Entitic vol] 6.8 fL Low 7-12 [facility] Comment on above: Performed By: #### H H, PLTCT, 10829-6, PINR, 00853-9, 3274-8, BMP #### [facility] ([id number]) [address], [address] [place] [id number] Platelets (Bld) [#/Vol] 325 10*3/uL Normal 150-450 [facility] Comment on above: Performed By: #### H H, PLTCT, 22781-5, PINR, 84767-7, 3274-8, BMP #### [facility] ([id number]) [address], [address] [address] PROTIME AND INRon 12-07-2023 INR Coag (PPP) [Relative time] 1.2 {INR} High 0.8-1.1 [facility] Comment on above: Performed By: #### 6 30-4 #### [facility] ([id number]) [address], [address] [address] PT Coag (PPP) [Time] 13.6 s High 9.8-13.2 [facility] Comment on above: Performed By: #### 6 30-4 #### [facility] ([id number]) [address] [address] INR Coag (PPP) [Relative time] 1.2 {INR} High 0.8-1.1 [facility] Comment on above: Performed By: #### P INR, 91180-8, 3274-8 #### [facility] ([id number]) [address], [address] [address] PT Coag (PPP) [Time] 13.4 s High 9.8-13.2 [facility] Comment on above: Performed By: #### P INR, 25891-9, 3274-8 #### [facility] ([id number]) [address], [address] [address] Troponin I.cardiac High sens itivity method [Mass/Vol]on 12-07-2023 TROPONIN I, HIGH SENSITIVITY 83 ng/L High <16 [facility] Comment on above: Result Comment: Elevations of hs-Troponin may be due to causes other than myocardial ischemia. Recommend serial hs-Troponin testing be performed. For the initial evaluation and management of chest pain patients, refer to the algorithms linked below. Emergency Patient: [email or web address] Inpatient: [email or web address] Performed By: #### 8 9579-7 #### [facility] ([id number]) [address], [address] [place] [address] aPTT Coag (PPP) [Time]on aPTT Coag (Bld) [Time] s Critically high 26-37 [facility] Comment on above: Performed By: #### 6 30-4 #### [facility] ([id number]) [address], [address] [place] [address] aPTT Coag (Bld) [Time] 73 s High 26-37 [facility] Comment on above: Performed By: #### P INR, 06053-7, 3274-8 #### [facility] ([id number]) [address], [address] [place] [address] CBC AND AUTO DIFFon 12-06-19 ABSOLUTE BASOPHIL 0.0 X10E9/L Normal 0.0-0.2 [facility] Comment on above: Performed By: #### C BCA, 93332-8, C34, 17530-2, CMP, 1988-5, ENAP, 11370-4, 91037-6, 97433-7, 5130-0, 31064-9 #### [facility] ([id number]) [address], [address] [place] [address] #### 23576-6, NAIFA #### [facility] ([id number]) [address] [place] [address] ABSOLUTE NEUTROPHIL 3.2 X10E9/L Normal 1.5-6.6 [facility] Comment on above: Performed By: #### C BCA, 73326-5, C34, 22028-0, CMP, 1987-5, ENAP, 93319-7, 91869-7, 58088-2, 5130-0, 24852-7 #### [facility] ([id number]) [address] [place] [address] #### 26809-9, NAIFA #### [facility] ([id number]) [address] [place] [address] Basophils/100 WBC (Bld) 0.8 % Normal [facility] Comment on above: Performed By: #### C BCA, 95886-0, C34, 97616-3, CMP, 1987-, ENAP, 07096-6, 98424-5, 04169-4, 5130-0, 74555-6 #### [facility] ([id number]) [address] [place] [address] #### 54091-1, NAIFA #### [facility] ([id number]) [address] [place] [address] Eosinophils (Bld) [#/Vol] 0.0 10*3/uL Normal 0.0-0.4 [facility] Comment on above: Performed By: #### C BCA, 18713-0, C34, 68539-2, CMP, 1987-5, ENAP, 41646-2, 46819-7, 10635-2, 5130-0, 68561-8 #### [facility] ([id number]) [address], [address] [place] [address] #### 29188-2, NAIFA #### [facility] ([id number]) [address] [place] [address] Eosinophils/100 WBC (Bld) 0.3 % Normal [facility] Comment on above: Performed By: #### C BCA, 15074-5, C34, 04324-1, CMP, 1987-5, ENAP, 71527-2, 46602-2, 04189-2, 5130-0, 41562-4 #### [facility] ([id number]) [address], [address] [place] [address] #### 12871-5, NAIFA #### [facility] ([id number]) [address] [place] [address] Erythrocyte distribution width (RBC) [Ratio] 16.0 % High 11.5-15.0 [facility] Comment on above: Performed By: #### C MAHIN, 69598-0, C34, 62581-5, CMP, 1987-07, ENAP, 19288-0, 32634-4, 25621-4, 5130-0, 11687-0 #### [facility] ([id number]) [address], [address] [place] [address] #### 70426-9, NAIFA #### [facility] ([id number]) [address] [place] [address] Hematocrit (Bld) [Volume fraction] 38.0 % Normal 35-47 [facility] Comment on above: Performed By: #### C BCA, 96243-8, C34, 03848-1, CMP, 1987-, ENAP, 61090-7, 51873-8, 21833-7, 5130-0, 21186-7 #### [facility] ([id number]) [address], [address] [place] [address] #### 66560-3, NAIFA #### [facility] ([id number]) [address] [place] [address] Hemoglobin (Bld) [Mass/Vol] 12.6 g/dL Normal 11.7-15.5 [facility] Comment on above: Performed By: #### C BCA, 01942-3, C34, 85072-4, CMP, 1987-5, ENAP, 20810-3, 57998-4, 27492-6, 5130-0, 55368-6 #### [facility] ([id number]) [address], [address] [place] [address] #### 99725-9, NAIFA #### [facility] ([id number]) [address] [place] [address] Lymphocytes (Bld) [#/Vol] 1.0 10*3/uL Normal 1.0-3.5 [facility] Comment on above: Performed By: #### C BCA, 09369-8, C34, 18318-3, CMP, 1987-, ENAP, 36193-8, 51359-4, 92683-2, 5130-0, 40925-1 #### [facility] ([id number]) [address], [address] [place] [address] #### 18789-2, NAIFA #### [facility] ([id number]) [address] [place] [address] Lymphocytes/100 WBC (Bld) 22.5 % Normal [facility] Comment on above: Performed By: #### C BCA, 65513-3, C34, 67703-5, CMP, 1987-, ENAP, 39580-2, 74971-2, 52592-4, 5130-0, 36055-1 #### [facility] ([id number]) [address], [address] [place] [address] #### 03360-0, NAIFA #### [facility] ([id number]) [address] [place] [address] MCH (RBC) [Entitic mass] 30.5 pg Normal 27-34 [facility] Comment on above: Performed By: #### C BCA, 18133-3, C34, 92999-5, CMP, 1988-5, ENAP, 79274-2, 62204-3, 10822-4, 5130-0, 32887-4 #### [facility] ([id number]) [address], [address] [place] [address] #### 28979-9, NAIFA #### [facility] ([id number]) [address] [place] [address] MCHC (RBC) [Mass/Vol] 33.2 g/dL Normal 32-36 [facility] Comment on above: Performed By: #### C BCA, 15441-3, C34, 10615-7, CMP, 1987-5, ENAP, 95472-6, 44733-5, 87498-9, 5130-0, 90522-2 #### [facility] ([id number]) [address], [address] [place] [id number] #### 48854-4, NAIFA #### [facility] ([id number]) [address] [place] [address] MCV (RBC) [Entitic vol] 92 fL Normal 80-100 [facility] Comment on above: Performed By: #### C BCA, 48164-7, C34, 76475-7, CMP, 1987-5, ENAP, 92944-2, 10637-6, 52337-9, 5130-0, 91455-8 #### [facility] ([id number]) [address], [address] [place] [id number] #### 59609-3, NAIFA #### [facility] ([id number]) [address] [place] [address] Monocytes (Bld) [#/Vol] 0.3 10*3/uL Normal 0-0.9 [facility] Comment on above: Performed By: #### C BCA, 36838-8, C34, 55041-8, CMP, 1988-5, ENAP, 55764-2, 73106-1, 58505-7, 5130-0, 25778-4 #### [facility] ([id number]) [address], [address] [place] [address] #### 24741-9, NAIFA #### [facility] ([id number]) [address] [place] [address] Monocytes/100 WBC (Bld) 7.4 % Normal [facility] Comment on above: Performed By: #### C BCA, 30734-0, C34, 28208-1, CMP, 1987-5, ENAP, 20984-1, 06783-3, 14308-5, 5130-0, 38023-6 #### [facility] ([id number]) [address], [address] [place] [address] #### 27110-1, NAIFA #### [facility] ([id number]) [address] [place] [address] Neutrophils/100 WBC (Bld) 69.0 % Normal [facility] Comment on above: Performed By: #### C BCA, 84743-6, C34, 35733-6, CMP, 1987-5, ENAP, 27132-7, 96210-8, 54335-4, 5130-0, 52959-6 #### [facility] ([id number]) [address], [address] [place] [address] #### 05927-7, NAIFA #### [facility] ([id number]) [address] [place] [address] [place] [address] Platelet mean volume (Bld) [Entitic vol] 7.0 fL Normal 7-12 [facility] Comment on above: Performed By: #### C BCA, 70361-2, C34, 99693-0, CMP, 1987-5, ENAP, 08453-7, 03756-9, 56529-5, 5130-0, 27107-0 #### [facility] ([id number]) [address], [address] [place] [address] #### 85341-4, NAIFA #### [facility] ([id number]) [address] [place] [address] Platelets (Bld) [#/Vol] 371 10*3/uL Normal 150-450 [facility] Comment on above: Performed By: #### C BCA, 37034-5, C34, 70145-7, CMP, 1987-07, ENAP, 19389-4, 02430-6, 21718-1, 5130-0, 43524-3 #### [facility] ([id number]) [address], [address] [place] [address] #### 41859-1, NAIFA #### [facility] ([id number]) [address] [place] [address] RBC COUNT 4.13 X10E12/L Normal 3.80-5.20 [facility] Comment on above: Performed By: #### C BCA, 32944-9, C34, 62968-2, CMP, 1987-, ENAP, 44078-6, 43665-6, 98607-0, 5130-0, 33510-1 #### [facility] ([id number]) [address], [address] [place] [address] #### 10007-2, NAIFA #### [facility] ([id number]) [address] [place] [address] WBC (Bld) [#/Vol] 4.6 10*3/uL Normal 4.0-11.0 [facility] Comment on above: Performed By: #### C BCA, 52779-8, C34, 07447-9, CMP, 1987-5, ENAP, 52623-8, 04738-0, 06288-9, 5130-0, 68333-5 #### [facility] ([id number]) [address], [address] [place] [address] #### 70932-8, NAIFA #### [facility] ([id number]) [address] [place] [address] ABSOLUTE BASOPHIL 0.0 X10E9/L Normal 0.0-0.2 [facility] Comment on above: Performed By: #### C BCA, 01593-5, C34, 13623-0, CMP, 1987-, ENAP, 95036-5, 21816-1, 55906-6, 5130-0, 98681-9 #### [facility] ([id number]) [address], [address] [place] [address] #### 36037-8, NAIFA #### [facility] ([id number]) [address] [place] [address] ABSOLUTE NEUTROPHIL 1.9 X10E9/L Normal 1.5-6.6 [facility] Comment on above: Performed By: #### C BCA, 86963-7, C34, 51209-6, CMP, 1987-, ENAP, 43389-1, 67391-6, 98768-9, 5130-0, 26507-8 #### [facility] ([id number]) [address], [address] [place] [address] #### 18892-9, NAIFA #### [facility] ([id number]) [address] [place] [address] Basophils/100 WBC (Bld) 0.6 % Normal [facility] Comment on above: Performed By: #### C BCA, 64958-6, C34, 82899-8, CMP, 1987-5, ENAP, 59261-0, 73052-1, 80030-1, 5130-0, 08951-7 #### [facility] ([id number]) [address] [place] [address] #### 94572-0, NAIFA #### [facility] ([id number]) [address] [place] [address] Eosinophils (Bld) [#/Vol] 0.0 10*3/uL Normal 0.0-0.4 [facility] Comment on above: Performed By: #### C BCA, 98462-4, C34, 21019-3, CMP, 1987-5, ENAP, 27154-5, 31340-8, 87183-2, 5130-0, 97724-4 #### [facility] ([id number]) [address] [place] [address] #### 52932-8, NAIFA #### [facility] ([id number]) [address] [place] [address] Eosinophils/100 WBC (Bld) 0.4 % Normal [facility] Comment on above: Performed By: #### C BCA, 34422-7, C34, 64196-8, CMP, 1987-5, ENAP, 13304-1, 22813-6, 43945-3, 5130-0, 41751-5 #### [facility] ([id number]) [address], [address] [place] [address] #### 87190-7, NAIFA #### [facility] ([id number]) [address] [place] [address] Erythrocyte distribution width (RBC) [Ratio] 16.0 % High 11.5-15.0 [facility] Comment on above: Performed By: #### C BCA, 69634-4, C34, 49064-9, CMP, 1987-5, ENAP, 42748-3, 23602-6, 03930-6, 5130-0, 03114-1 #### [facility] ([id number]) [address], [address] [place] [address] #### 93870-9, NAIFA #### [facility] ([id number]) [address] [place] [address] Hematocrit (Bld) [Volume fraction] 39.8 % Normal 35-47 [facility] Comment on above: Performed By: #### C BCA, 98440-0, C34, 02812-0, CMP, 1987-, ENAP, 79728-4, 47724-1, 69728-4, 5130-0, 42596-5 #### [facility] ([id number]) [address], [address] [place] [address] #### 63409-1, NAIFA #### [facility] ([id number]) [address] [place] [address] Hemoglobin (Bld) [Mass/Vol] 13.2 g/dL Normal 11.7-15.5 [facility] Comment on above: Performed By: #### C BCA, 58265-3, C34, 73594-9, CMP, 1987-, ENAP, 10495-4, 80354-2, 38291-9, 5130-0, 05938-7 #### [facility] ([id number]) [address], [address] [place] [address] #### 62202-2, NAIFA #### [facility] ([id number]) [address] [place] [address] Lymphocytes (Bld) [#/Vol] 0.8 10*3/uL Low 1.0-3.5 [facility] Comment on above: Performed By: #### C BCA, 34856-1, C34, 36642-9, CMP, 1987-5, ENAP, 82728-7, 09497-7, 82264-4, 5130-0, 66693-1 #### [facility] ([id number]) [address], [address] [place] [address] #### 53702-0, NAIFA #### [facility] ([id number]) [address] [place] [address]88 Lymphocytes/100 WBC (Bld) 26.0 % Normal [facility] Comment on above: Performed By: #### C BCA, 17133-6, C34, 08701-6, CMP, 1987-5, ENAP, 74730-9, 25612-4, 58829-8, 5130-0, 19598-3 #### [facility] ([id number]) [address], [address] [place] [address] #### 93488-3, NAIFA #### [facility] ([id number]) [address] [place] [address]50 MCH (RBC) [Entitic mass] 31.0 pg Normal 27-34 [facility] Comment on above: Performed By: #### C BCA, 52944-8, C34, 57835-8, CMP, 1987-5, ENAP, 17177-4, 07188-9, 33134-1, 5130-0, 69220-6 #### [facility] ([id number]) [address], [address] [place] [address] #### 83166-2, NAIFA #### [facility] ([id number]) [address] [place] [address]179 MCHC (RBC) [Mass/Vol] 33.1 g/dL Normal 32-36 [facility] Comment on above: Performed By: #### C BCA, 32187-2, C34, 50541-3, CMP, 1988-5, ENAP, 90692-2, 29389-5, 46868-2, 5130-0, 20810-7 #### [facility] ([id number]) [address], [address] [place] [address] #### 91786-2, NAIFA #### [facility] ([id number]) [address] [place] [address] 92030 MCV (RBC) [Entitic vol] 94 fL Normal 80-100 [facility] Comment on above: Performed By: #### C BCA, 86479-5, C34, 64563-7, CMP, 1988-5, ENAP, 09879-6, 51746-8, 45690-4, 5130-0, 59638-2 #### [facility] ([id number]) [address], [address] [place] [address] #### 90813-4, NAIFA #### [facility] ([id number]) [address] [place] [address] 60954 Monocytes (Bld) [#/Vol] 0.3 10*3/uL Normal 0-0.9 [facility] Comment on above: Performed By: #### C BCA, 82602-8, C34, 66496-2, CMP, 1988-5, ENAP, 74052-8, 38106-4, 09150-5, 5130-0, 97798-7 #### [facility] ([id number]) [address], [address] [place] [address] #### 07796-0, NAIFA #### [facility] ([id number]) [address] [place] [address] 91435 Monocytes/100 WBC (Bld) 10.5 % Normal [facility] Comment on above: Performed By: #### C BCA, 81331-6, C34, 18108-7, CMP, 1987-5, ENAP, 15991-3, 40797-4, 62132-9, 5130-0, 90592-3 #### [facility] ([id number]) [address], [address] [place] [address] #### 78522-5, NAIFA #### [facility] ([id number]) [address] [place] [address] 65327 Neutrophils/100 WBC (Bld) 62.5 % Normal [facility] Comment on above: Performed By: #### C BCA, 79828-0, C34, 76831-8, CMP, 1987-5, ENAP, 64080-2, 17142-2, 20480-5, 5130-0, 16217-1 #### [facility] ([id number]) [address], [address] [place] [address] #### 03475-8, NAIFA #### [facility] ([id number]) [address] [place] [address] 76241 Platelet mean volume (Bld) [Entitic vol] 7.1 fL Normal 7-12 [facility] Comment on above: Performed By: #### C BCA, 82953-8, C34, 61896-6, CMP, 1987-5, ENAP, 18658-5, 62641-9, 44960-7, 5130-0, 78390-9 #### [facility] ([id number]) [address], [address] [place] [address] #### 53622-9, NAIFA #### [facility] ([id number]) [address] [place] [address] 23901 Platelets (Bld) [#/Vol] 360 10*3/uL Normal 150-450 [facility] Comment on above: Performed By: #### C BCA, 10402-1, C34, 99343-3, CMP, 1987-5, ENAP, 19901-6, 61338-0, 56006-4, 5130-0, 20342-2 #### [facility] ([id number]) [address], [address] [place] [address] #### 25359-0, NAIFA #### [facility] ([id number]) [address] [place] [address] 83221 RBC COUNT 4.25 X10E12/L Normal 3.80-5.20 [facility] Comment on above: Performed By: #### C BCA, 22630-9, C34, 96624-7, CMP, 1987-5, ENAP, 52761-9, 42665-1, 92914-7, 5130-0, 88473-1 #### [facility] ([id number]) [address], [address] [place] [address] #### 75469-1, NAIFA #### [facility] ([id number]) [address] [place] [address] 82801 WBC (Bld) [#/Vol] 3.1 10*3/uL Low 4.0-11.0 [facility] Comment on above: Performed By: #### C BCA, 30382-8, C34, 58968-8, CMP, 1987-5, ENAP, 81527-1, 60550-3, 70970-0, 5130-0, 27183-3 #### [facility] ([id number]) [address], [address] [place] [address] #### 29277-5, NAIFA #### [facility] ([id number]) [address] [place] [address]147 COMPREHENSIVE METABOLIC PANE Caleb 12-06-2023 Albumin [Mass/Vol] 3.7 g/dL Normal 3.2-5.3 [facility] Comment on above: Performed By: #### C BCA, 01164-1, C34, 54850-3, CMP, 1988-5, ENAP, 65626-7, 84374-7, 28315-1, 5130-0, 24911-5 #### [facility] ([id number]) [address], [address] [place] [address] #### 73119-0, NAIFA #### [facility] ([id number]) [address] [place] [address]123 ALP [Catalytic activity/Vol] 121 U/L Normal 39-130 [facility] Comment on above: Performed By: #### C BCA, 51314-0, C34, 14216-4, CMP, 1988-5, ENAP, 15364-5, 02805-6, 11808-8, 5130-0, 91891-6 #### [facility] ([id number]) [address], [address] [place] [address] #### 02590-7, NAIFA #### [facility] ([id number]) [address] [place] [address] 89723 ALT [Catalytic activity/Vol] 24 U/L Normal 0-31 [facility] Comment on above: Performed By: #### C BCA, 96469-3, C34, 81819-4, CMP, 1988-5, ENAP, 24322-2, 75257-6, 62836-5, 5130-0, 33870-7 #### [facility] ([id number]) [address], [address] [place] [address] #### 01736-4, NAIFA #### [facility] ([id number]) [address] [place] [address]3238 Anion gap [Moles/Vol] 10 mmol/L Normal 5-15 [facility] Comment on above: Performed By: #### C BCA, 39226-2, C34, 19453-9, CMP, 1988-5, ENAP, 51573-5, 01122-6, 00032-8, 5130-0, 64087-0 #### [facility] ([id number]) [address], [address] [place] [address] #### 71561-0, NAIFA #### [facility] ([id number]) [address] [place] [address] 65089 AST [Catalytic activity/Vol] 28 U/L Normal 0-41 [facility] Comment on above: Performed By: #### C BCA, 82935-6, C34, 47774-7, CMP, 1987-5, ENAP, 30460-9, 32400-2, 40775-4, 5130-0, 01472-0 #### [facility] ([id number]) [address], [address] [place] [address] #### 78039-5, NAIFA #### [facility] ([id number]) [address] [place] [address] 45992 Bilirubin [Mass/Vol] 0.7 mg/dL Normal 0.3-1.2 [facility] Comment on above: Performed By: #### C BCA, 84584-0, C34, 66034-6, CMP, 1987-5, ENAP, 54335-0, 00891-5, 88576-0, 5130-0, 81183-4 #### [facility] ([id number]) [address], [address] [place] [address] #### 67735-1, NAIFA #### [facility] ([id number]) [address] [place] [address] 62702 Calcium [Mass/Vol] 9.2 mg/dL Normal 8.5-10.5 [facility] Comment on above: Performed By: #### C BCA, 59770-8, C34, 24698-9, CMP, 1988-5, ENAP, 76900-5, 17922-3, 69382-9, 5130-0, 01277-5 #### [facility] ([id number]) [address], [address] [place] [address] #### 37216-9, NAIFA #### [facility] ([id number]) [address] [place] [address] 46068 Chloride [Moles/Vol] 107 mmol/L Normal 98-109 [facility] Comment on above: Performed By: #### C BCA, 41743-3, C34, 53786-5, CMP, 1987-5, ENAP, 28190-6, 32187-8, 80031-3, 5130-0, 62269-2 #### [facility] ([id number]) [address], [address] [place] [address] #### 32621-1, NAIFA #### [facility] ([id number]) [address] [place] [address] 43452 CO2 [Moles/Vol] 22 mmol/L Normal 22-32 [facility] Comment on above: Performed By: #### C BCA, 76538-8, C34, 95194-2, CMP, 1988-5, ENAP, 56549-7, 32236-4, 13024-1, 5130-0, 79530-1 #### [facility] ([id number]) [address], [address] [place] [address] #### 03149-7, NAIFA #### [facility] ([id number]) [address] [place] [address] 67715 Creatinine [Mass/Vol] 0.69 mg/dL Normal 0.40-1.00 [facility] Comment on above: Result Comment: METH OD TRACEABLE TO IDMS STANDARD Performed By: #### C BCA, 35307-7, C34, 38296-6, CMP, 1987-5, ENAP, 25859-8, 11816-8, 40050-1, 5130-0, 81938-8 #### [facility] ([id number]) [address], [address] [place] [address] #### 74978-0, NAIFA #### [facility] ([id number]) [address] [place] [address] 66151 eGFR (CKD-EPI) NON-RACE DEPENDENT >90 Normal >59 [facility] Comment on above: Result Comment: Reported eGFR is based on the CKD-EPI 2020 equation that does not use a race coefficient. Performed By: #### C BCA, 34448-5, C34, 96358-7, CMP, 1987-, ENAP, 09086-0, 10669-5, 02836-3, 5130-0, 91215-4 #### [facility] ([id number]) [address], [address] [place] [address] #### 14061-1, NAJUAN LUIS #### [facility] ([id number]) [address] [place] [address] 16114 Glucose [Mass/Vol] 100 mg/dL High 65-99 [facility] Comment on above: Performed By: #### C BCA, 81038-2, C34, 07384-3, CMP, 1987-5, ENAP, 55704-3, 00385-4, 87875-7, 5130-0, 12155-6 #### [facility] ([id number]) [address] [address], [address] [place] [address] #### 23334-1, NAIFA #### [facility] ([id number]) [address] [place] [address] 93755 Potassium [Moles/Vol] 3.6 mmol/L Normal 3.5-5.0 [facility] Comment on above: Performed By: #### C BCA, 92677-9, C34, 38079-1, CMP, 1987-5, ENAP, 01393-0, 06384-9, 77475-0, 5130-0, 64207-5 #### [facility] ([id number]) [address], [address] [place] [address] #### 24997-9, NAIFA #### [facility] ([id number]) [address] [place] [address] 40577 Protein [Mass/Vol] 7.5 g/dL Normal 6.0-8.0 [facility] Comment on above: Performed By: #### C BCA, 00939-4, C34, 86541-9, CMP, 1987-5, ENAP, 23563-3, 26135-6, 95631-0, 5130-0, 30392-5 #### [facility] ([id number]) [address], [address] [place] [address] #### 91176-6, NAIFA #### [facility] ([id number]) [address] [place] [address] 65508 Sodium [Moles/Vol] 139 mmol/L Normal 134-146 [facility] Comment on above: Performed By: #### C BCA, 20956-4, C34, 38991-3, CMP, 1987-5, ENAP, 75869-3, 57569-9, 11514-8, 5130-0, 16779-2 #### [facility] ([id number]) [address], [address] [place] [address] #### 50166-4, NAIFA #### [facility] ([id number]) [address] [place] [address] 15165 Urea nitrogen [Mass/Vol] 7 mg/dL Normal 5-23 [facility] Comment on above: Performed By: #### C BCA, 27018-0, C34, 23496-6, CMP, 1988-5, ENAP, 55858-6, 42805-3, 57861-1, 5130-0, 40057-7 #### [facility] ([id number]) [address], [address] [place] [address] #### 74986-1, NAIFA #### [facility] ([id number]) [address] [place] [address] 71078 Albumin [Mass/Vol] 4.1 g/dL Normal 3.2-5.3 [facility] Comment on above: Performed By: #### C BCA, 74412-8, C34, 92547-8, CMP, 1988-5, ENAP, 21259-6, 30240-4, 26692-1, 5130-0, 80129-5 #### [facility] ([id number]) [address], [address] [place] [address] #### 14952-1, NAIFA #### [facility] ([id number]) [address] [place] [address] 72911 ALP [Catalytic activity/Vol] 126 U/L Normal 39-130 [facility] Comment on above: Performed By: #### C BCA, 60161-6, C34, 90307-4, CMP, 1988-5, ENAP, 76858-0, 04373-7, 91193-2, 5130-0, 34154-4 #### [facility] ([id number]) [address], [address] [place] [address] #### 43067-4, NAIFA #### [facility] ([id number]) [address] [place] [address] 60766 ALT [Catalytic activity/Vol] 19 U/L Normal 0-31 [facility] Comment on above: Performed By: #### C BCA, 15960-0, C34, 23327-8, CMP, 1988-5, ENAP, 12263-5, 92738-6, 33271-7, 5130-0, 21921-7 #### [facility] ([id number]) [address], [address] [place] [address] #### 59563-1, NAIFA #### [facility] ([id number]) [address] [place] [address] 65729 Anion gap [Moles/Vol] 11 mmol/L Normal 5-15 [facility] Comment on above: Performed By: #### C BCA, 43908-6, C34, 65269-0, CMP, 1988-5, ENAP, 27878-2, 72299-2, 18766-2, 5130-0, 42365-3 #### [facility] ([id number]) [address], [address] [place] [address] #### 82992-9, NAIFA #### [facility] ([id number]) [address] [place] [address] 32482 AST [Catalytic activity/Vol] 30 U/L Normal 0-41 [facility] Comment on above: Performed By: #### C BCA, 02571-9, C34, 69954-9, CMP, 1988-5, ENAP, 08969-1, 72600-2, 48372-2, 5130-0, 35649-9 #### [facility] ([id number]) [address], [address] [place] [address] #### 02579-1, NAIFA #### [facility] ([id number]) [address] [place] [address] 18641 Bilirubin [Mass/Vol] 0.6 mg/dL Normal 0.3-1.2 [facility] Comment on above: Performed By: #### C BCA, 41386-6, C34, 68376-0, CMP, 1988-5, ENAP, 17646-8, 34445-6, 13132-4, 5130-0, 65131-6 #### [facility] ([id number]) [address], [address] [place] [address] #### 98750-0, NAIFA #### [facility] ([id number]) [address] [place] [address] 28710 Calcium [Mass/Vol] 9.1 mg/dL Normal 8.5-10.5 [facility] Comment on above: Performed By: #### C BCA, 98948-2, C34, 95438-1, CMP, 1987-5, ENAP, 06750-4, 32713-6, 57281-5, 5130-0, 68069-4 #### [facility] ([id number]) [address], [address] [place] [address] #### 13642-7, NAIFA #### [facility] ([id number]) [address] [place] [address] 39926 Chloride [Moles/Vol] 106 mmol/L Normal 98-109 [facility] Comment on above: Performed By: #### C BCA, 61957-6, C34, 99762-2, CMP, 1988-5, ENAP, 92964-5, 76582-3, 51938-5, 5130-0, 89978-9 #### [facility] ([id number]) [address], [address] [place] [address] #### 41275-6, NAIFA #### [facility] ([id number]) [address] [place] [address] 64287 CO2 [Moles/Vol] 25 mmol/L Normal 22-32 [facility] Comment on above: Performed By: #### C BCA, 72488-5, C34, 48968-0, CMP, 1988-5, ENAP, 77219-4, 79741-2, 53287-2, 5130-0, 88160-5 #### [facility] ([id number]) [address], [address] [place] [address] #### 39446-8, NAIFA #### [facility] ([id number]) [address] [place] [address] 52732 Creatinine [Mass/Vol] 0.79 mg/dL Normal 0.40-1.00 [facility] Comment on above: Result Comment: METH OD TRACEABLE TO IDMS STANDARD Performed By: #### C BCA, 47530-2, C34, 39694-5, CMP, 1987-5, ENAP, 97312-2, 77550-5, 66363-2, 5130-0, 74852-8 #### [facility] ([id number]) [address], [address] [place] [address] #### 81852-9, NAIFA #### [facility] ([id number]) [address] [place] [address] 35314 eGFR (CKD-EPI) NON-RACE DEPENDENT >90 Normal >59 [facility] Comment on above: Result Comment: Reported eGFR is based on the CKD-EPI 2020 equation that does not use a race coefficient. Performed By: #### C BCA, 15294-1, C34, 84656-3, CMP, 1988-5, ENAP, 98302-5, 05061-8, 65142-9, 5130-0, 94550-6 #### [facility] ([id number]) [address], [address] [place] [address] #### 06278-4, NAIFA #### [facility] ([id number]) [address] [place] [address] 01708 Glucose [Mass/Vol] 116 mg/dL High 65-99 [facility] Comment on above: Performed By: #### C BCA, 16145-8, C34, 36632-0, CMP, 1987-5, ENAP, 08441-5, 21170-3, 28034-2, 5130-0, 53533-7 #### [facility] ([id number]) [address] [address], [address] [place] [address] #### 61068-3, NAIFA #### [facility] ([id number]) [address] [place] [address] 32619 Potassium [Moles/Vol] 3.7 mmol/L Normal 3.5-5.0 [facility] Comment on above: Performed By: #### C BCA, 18332-9, C34, 43009-7, CMP, 1987-5, ENAP, 28707-5, 23680-6, 09713-3, 5130-0, 48532-5 #### [facility] ([id number]) [address] [address], [address] [place] [address] #### 35966-2, NAIFA #### [facility] ([id number]) [address] [place] [address] 88502 Protein [Mass/Vol] 7.6 g/dL Normal 6.0-8.0 [facility] Comment on above: Performed By: #### C BCA, 33173-6, C34, 86808-6, CMP, 1987-5, ENAP, 39985-6, 91207-2, 07817-9, 5130-0, 89371-0 #### [facility] ([id number]) [address] [facility], [address] [place] [address] #### 25277-7, NAIFA #### [facility] ([id number]) [address] [place] [address] 21189 Sodium [Moles/Vol] 142 mmol/L Normal 134-146 [facility] Comment on above: Performed By: #### C BCA, 66696-7, C34, 03678-6, CMP, 1988-5, ENAP, 65459-8, 03927-1, 08693-8, 5130-0, 91757-8 #### [facility] ([id number]) [address] [facility], [address] [place] [address] #### 64723-0, NAIFA #### [facility] ([id number]) [address] [place] [address] 09717 Urea nitrogen [Mass/Vol] 6 mg/dL Normal 5-23 [facility] Comment on above: Performed By: #### C BCA, 19805-2, C34, 30198-1, CMP, 1988-5, ENAP, 62623-0, 15044-8, 31644-4, 5130-0, 04912-8 #### [facility] ([id number]) [address] [place] [address], [address] [place] [address] #### 80190-6, NAIFA #### [facility] ([id number]) [address] [place] [address] CTA CHESTon 12-06-[address] CTA CHEST History: Pulmonary embolism (PE) suspected, high prob Exam/Technique: Imaging is performed with bolus IV contrast with 3-D and multiplanar reconstructions provided. 100 ml Omnipaque 350 was administered intravenously. Automatic dose exposure reduction technique utilized. Comparison: 07/01/2009.. Findings: Chest wall: Remarkable. There is significant evidence of pulmonary emboli bilaterally from the pulmonary outflow extending into the segmental branches predominantly in the lower lobes. The thoracic aorta displays no significant acute abnormalities.. No Atheroschlerotic Disease. Mediastinum and cardiomediastinal vascular structures: Right ventricular strain noted. Hilar regions: Normal Granulomatous calcification. There is no evidence of infiltrates, noncalcified nodules, or other active pulmonary disease. No pleural abnormalities are demonstrated. There is bypass surgery the stomach and gastroesophageal junction with suture lines. [Predominantly left-sided rib fractures with callus formation IMPRESSION: Acute bilateral pulmonary emboli extending to the lower lobes with features of right ventricular strain. The results of the study has been designated critical. Results will be communicated immediately to the clinical service by the radiology administrative staff on 12/06/[address] scans at this facility use dose modulation, iterative reconstruction, and/or weight based dosing when appropriate to reduce radiation dose to as low as reasonably achievable. Finalized by Kofi Carrizales MD on 12/06/2023 10:33 PM Normal [facility] Fibrin D-dimer DDU (PPP) [Ma ss/Vol]on 12-06-2023 D DIMER 2465 ng/mL DDU High <255 [facility] Comment on above: Result Comment: Results >=255ng/mL DDU: Results may be indicative of the presence of VTE. The use of the Wells score and further diagnostic tests should be considered. Elevated D-Dimer levels can also be associated with DIC, neoplasm, , trauma and liver disease. Elevated levels of rheumatoid factor may lead to an overestimation of the D-Dimer level. Performed By: #### C BCA, 26481-9, C34, 67802-7, CMP, 1988-5, ENAP, 27220-1, 78784-8, 44669-1, 5130-0, 59253-6 #### [facility] ([id number]) [address] [facility], [address] [place] [address] #### 08971-6, NAIFA #### [facility] ([id number]) [address] [place] [address], [place] [address] MAGNESIUMon 12-06-2023 Magnesium [Mass/Vol] 1.9 mg/dL Normal 1.8-2.6 [facility] Comment on above: Performed By: #### C MAHIN, 20657-1, C34, 75489-2, CMP, 1988-5, ENAP, 40886-0, 57882-8, 77992-0, 5130-0, 76728-8 #### [facility] ([id number]) [address] [address], [address] [place] [address] #### 40225-2, NAIFA #### [facility] ([id number]) [address] [place] [address] 04300 Natriuretic peptide B [Mass/ Vol]on 12-06-2023 Natriuretic peptide B (Bld) [Mass/Vol] 155 pg/mL High <100.0 [facility] Comment on above: Performed By: #### C MAHIN, 35146-8, C34, 18346-8, CMP, 1987-5, ENAP, 87682-1, 97595-9, 94201-4, 5130-0, 89237-1 #### [facility] ([id number]) [address] [facility], [address] [place] [address] #### 93657-9, NAIFA #### [facility] ([id number]) [address] [place] [address] 99182 PROTIME AND INRon 12-06-2023 INR Coag (PPP) [Relative time] 1.1 {INR} Normal 0.8-1.1 [facility] Comment on above: Performed By: #### C MAHIN, 31466-0, C34, 89014-7, CMP, 1987-5, ENAP, 11692-8, 96339-4, 57785-5, 5130-0, 12597-0 #### [facility] ([id number]) [address] [address], [address] [place] [address] #### 46001-9, NAIFA #### [facility] ([id number]) [address] [place] [address] 71082 PT Coag (PPP) [Time] 12.7 s Normal 9.8-13.2 [facility] Comment on above: Result Comment: NEW REFERENCE RANGE Performed By: #### C BCA, 94097-9, C34, 98418-0, CMP, 1987-5, ENAP, 23613-2, 95571-2, 83121-2, 5130-0, 71231-2 #### [facility] ([id number]) [address], [address] [place] [address] #### 66831-8, NAIFA #### [facility] ([id number]) [address] [place] [address] 26527 Troponin I.cardiac High sens itivity method [Mass/Vol]on 12-06-2023 1 HOUR TROP I, HIGH SENSITIVITY 132 ng/L High <16 [facility] Comment on above: Result Comment: Elevations of hs-Troponin may be due to causes other than myocardial ischemia. Recommend serial hs-Troponin testing be performed. For the initial evaluation and management of chest pain patients, refer to the algorithms linked below. Emergency Patient: [email or web address] Inpatient: [email or web address] Performed By: #### C BCA, 35593-8, C34, 16973-7, CMP, 1987-5, ENAP, 46402-9, 91004-4, 55096-2, 5130-0, 29424-1 #### [facility] ([id number]) [address] [facility], [address] [place] [address] #### 35387-2, NAIFA #### [facility] ([id number]) [address] [place] [address] 50519 TROPONIN I, HIGH SENSITIVITY 148 ng/L High <16 [facility] Comment on above: Result Comment: Elevations of hs-Troponin may be due to causes other than myocardial ischemia. Recommend serial hs-Troponin testing be performed. For the initial evaluation and management of chest pain patients, refer to the algorithms linked below. Emergency Patient: [email or web address] Inpatient: [email or web address] uh=[email or web address] Performed By: #### C BCA, 22062-2, C34, 48359-2, CMP, 1987-5, ENAP, 60062-0, 30038-2, 05578-4, 5130-0, 45981-1 #### [facility] ([id number]) [address] [facility], [address] [place] [address] #### 05345-3, NAIFA #### [facility] ([id number]) [address] [place] [address] 22473 aPTT Coag (PPP) [Time]on aPTT Coag (Bld) [Time] 36 s Normal 26-37 [facility] Comment on above: Result Comment: NEW REFERENCE RANGE Performed By: #### C BCA, 17802-1, C34, 31440-5, CMP, 1987-, ENAP, 98813-7, 58312-8, 82561-6, 5130-0, 61998-2 #### [facility] ([id number]) [address] [facility], [address] [place] [address] #### 46556-7, NAIFA #### [facility] ([id number]) [address] [place] [address]8520 36on 11-26-[address] MALLORIE Tomas HE STATED THAT HE WILL GIVE PATIENT STEP DOWN TRAMADOL PATIENT REFUSE AND STATED THAT WILL NOT HELP WITH THE PAIN ADVISED PATIENT TO CALL PAIN MANAGEMENT. [facility] 36 PATIENT STATED THAT SHE NEVER RECEIVE A REFILL ON MEDICATIONS AND YOU TOLD HER THAT YOU WOULD WHEN SHE [facility] 36 Patient is more than 1 month following her surgery and will need to be referred to pain management for the same. We did discuss this when she came in for her postoperative follow-up visit. Thank you REFERRAL PLACED TO PAIN MANAGEMENT PATIENT NOTIFIED. [facility] 36 Patient called antonio douglass for a refill on oxycodone-acetaphimine 10-325 mg. Please advise. Thank you [facility] Telephoneon 11-26-2023 Telephone [phone] Apolonia Palma er L 1975 F Date Provider Department Center 11/26/2023 LYSSA MATSON MP Family History Problem Relation Age of Onset Cancer Mother Family Status - Relation Status Age at Mother Reason for Visit and Comments: Med Refill [601756] [facility] Office Visiton 11-19-2023 Follow-up visit [id number] Apolonia Palma er L 1975 F Date Provider Department Center 11/19/2023 LYSSA MATSON MP Family History Problem Relation Age of Onset Cancer Mother Family Status - Relation Status Age at Mother Level of Service:75054 [place] POSTOP FOLLOW UP VISIT RELATED TO ORIGINAL PX (GC) Reason for Visit and Comments: Post-op [483] - TKA [facility] Capillary blood glucose renst urement by glucometer (mass/volume)Ordered By: Jonny Bentley on 11-16-2023 Glucose [Mass/Vol] 92 mg/dL [facility] Comment on above: Random Glucose Refer ence Range is dependent on time and content of last meal. Glucose of more than 200 mg/dL in a nonstressed, ambulatory subject supports the diagnosis of Diabetes Mellitus. Result Comment: [place] Glucose Reference Range is dependent on time and content of last meal. Glucose of more than 200 mg/dL in a nonstressed, ambulatory subject supports the diagnosis of Diabetes Mellitus. PERFORMED BY: [facility] [address] [place] [address] PATHOLOGIST FERRY ENGINEER GUILLERMINA TOBAR M.D. Performed By: #### G LULS #### Point of Care testing , Glucose Poct Glucometerson 0 11-15-2023 Glucose [Mass/Vol] 105 mg/dL Normal [facility] Comment on above: Result Comment: [place] om Glucose Reference Range is dependent on time and content of last meal. Glucose of more than 200 mg/dL in a nonstressed, ambulatory subject supports the diagnosis of Diabetes Mellitus. PERFORMED BY: [facility] [address] [place] [address] PATHOLOGIST FERRY ENGINEER GUILLERMINA TOBAR M.D. Performed By: #### G LULS #### Point of Care testing , Glucose Poct Glucometerson 0 11-14-2023 Commemt1 Glu2: Cleaned Meter Normal [facility] Comment on above: Result Comment: PERF ORMED BY: [facility] [address] [place] [address] PATHOLOGIST FERRY ENGINEER GUILLERMINA TOBAR M.D. Performed By: #### G LULS #### Point of Care testing , Glucose [Mass/Vol] 93 mg/dL Normal [facility] Comment on above: Result Comment: [place] om Glucose Reference Range is dependent on time and content of last meal. Glucose of more than 200 mg/dL in a nonstressed, ambulatory subject supports the diagnosis of Diabetes Mellitus. Performed By: #### G LULS #### Point of Care testing , No Panel InformationOrdered By: Jonny Bentley on 11-14-2023 Bedside Glucose Comment Glu2: cleaned meter [facility] Automated basophil %Ordered By: Mone Brennan on 11-13-2023 Basophils/100 WBC (Bld) 1.3 % Normal . [facility] Comment on above: Performed By: #### G LULS #### Point of Care testing , Automated basophil countOrde red By: Mone Brennan on 11-13-2023 Basophils (Bld) [#/Vol] 0.1 10*3/uL Normal 0.0-0.2 [facility] Comment on above: Result Comment: PERF ORMED BY: [facility] [address] [place] [address] PATHOLOGIST FERRY ENGINEER GUILLERMINA TOBAR M.D. Performed By: #### G LULS #### Point of Care testing , Automated blood monocyte cou ntOrdered By: Mone Brennan on 11-13-2023 Monocytes (Bld) [#/Vol] 0.4 10*3/uL Normal 0.0-0.8 [facility] Comment on above: Performed By: #### G LULS #### Point of Care testing , Automated eosinophil %Ordere d By: Mone Brennan on 11-13-2023 Eosinophils/100 WBC (Bld) 1.2 % Normal . [facility] Comment on above: Performed By: #### G LULS #### Point of Care testing , Automated eosinophil countOr dered By: Mone Brennan on 11-13-2023 Eosinophils (Bld) [#/Vol] 0.1 10*3/uL Normal 0.0-0.45 [facility] Comment on above: Performed By: #### G LULS #### Point of Care testing , Automated monocyte %Ordered By: Mone Brennan on 11-13-2023 Monocytes/100 WBC (Bld) 6.2 % Normal . [facility] Comment on above: Performed By: #### G LULS #### Point of Care testing , Automated neutrophil %Ordere d By: Mone Brennan on 11-13-2023 Neutrophils/100 WBC (Bld) 59.2 % Normal . [facility] Comment on above: Performed By: #### G LULS #### Point of Care testing , Basic Metabolic Panelon Creatinine Clr Calc Pharmacy 162.78 Normal [facility] Comment on above: Result Comment: PERF ORMED BY: [facility] [address] [place] [address] PATHOLOGIST [employer]ERRY ENGINEER GUILLERMINA TOBAR M.D. Performed By: #### G LULS #### Point of Care testing , GFR/1.73 sq M.predicted MDRD (S/P/Bld) [Vol rate/Area] mL/min/{1.73_m2} Normal [facility] Comment on above: Performed By: #### G LULS #### Point of Care testing , Bilirubin Test strip Ql (U)O rdered By: Mone Brennan on 11-13-2023 Bilirubin Ql (U) Negative Negative [facility] Calcium [Mass/volume] in Ser um or PlasmaOrdered By: Mone Brennan on 11-13-2023 Calcium [Mass/Vol] 8.3 mg/dL Low 8.6-10.3 [facility] Comment on above: Performed By: #### G LULS #### Point of Care testing , Carbon dioxide, total [Moles /volume] in Serum or PlasmaOrdered By: Mone Brennan on 11-13-2023 CO2 [Moles/Vol] 27.9 mmol/L Normal 21.0-31.0 [facility] Comment on above: Performed By: #### G LULS #### Point of Care testing , Chloride [Moles/volume] in S binat or PlasmaOrdered By: Mone Brennan on 11-13-2023 Chloride [Moles/Vol] 105 mmol/L Normal 98-107 [facility] Comment on above: Performed By: #### G LULS #### Point of Care testing , Color of Urine by AutoOrdere d By: Mone Brennan on 11-13-2023 Color (U) Yellow Normal Yellow [facility] Comment on above: Order Comment: Name Collection Type:: Voided Performed By: #### U A #### [address] Complete Blood Count Auto Di ffon 11-13-2023 Mean Corpuscular HGB Conc 32.9 g/dL Normal 32.0-35.0 [facility] Comment on above: Performed By: #### G LULS #### Point of Care testing , NRBC% 0.4 /100{WBC} Normal 0-0.5 [facility] Comment on above: Performed By: #### G LULS #### Point of Care testing , Creatinine [Mass/volume] in Serum or PlasmaOrdered By: Mone Brennan on 11-13-2023 Creatinine [Mass/Vol] 0.65 mg/dL Normal 0.60-1.20 [facility] Comment on above: Performed By: #### G LULS #### Point of Care testing , Erythrocyte distribution wid th [Ratio] by Automated countOrdered By: Mone Brennan on 11-13-2023 Erythrocyte distribution width (RBC) [Ratio] 14.9 % Normal 11.9-15.3 [facility] Comment on above: Performed By: #### G LULS #### Point of Care testing , Erythrocytes [#/volume] in B lood by Automated countOrdered By: Mone Brennan on 11-13-2023 RBC (Bld) [#/Vol] 3.25 10*6/uL Low 3.60-5.00 [facility] Comment on above: Performed By: #### G LULS #### Point of Care testing , Glucose Poct Glucometerson 0 11-13-2023 Glucose [Mass/Vol] 103 mg/dL Normal [facility] Comment on above: Result Comment: [facility] Glucose Reference Range is dependent on time and content of last meal. Glucose of more than 200 mg/dL in a nonstressed, ambulatory subject supports the diagnosis of Diabetes Mellitus. PERFORMED BY: [facility] [address] [address] PATHOLOGIST FERRY ENGINEER GUILLERMINA TOBAR M.D. Performed By: #### G LULS #### Point of Care testing , Glucose [Mass/volume] in Ser um or PlasmaOrdered By: Mone Brennan on 11-13-2023 Glucose [Mass/Vol] 94 mg/dL Normal 70-100 [facility] Comment on above: ADA recommended refe rence rangeRandom Glucose Reference Range is dependent on time and content of last meal. Glucose of more than 200 mg/dL in a nonstressed, ambulatory subject supports the diagnosis of Diabetes Mellitus. Result Comment: [place] Glucose Reference Range is dependent on time and content of last meal. Glucose of more than 200 mg/dL in a nonstressed, ambulatory subject supports the diagnosis of Diabetes Mellitus. ADA recommended reference range Performed By: #### G LULS #### Point of Care testing , Glucose [Mass/volume] in Uri ne by Test stripOrdered By: Mone Brennan on 11-13-2023 Glucose Test strip (U) [Mass/Vol] Normal mg/dL Normal [facility] Hematocrit [Volume Fraction] of Blood by Automated countOrdered By: Mone Brennan on 11-13-2023 Hematocrit (Bld) [Volume fraction] 30.2 % Low 34.0-46.4 [facility] Comment on above: Performed By: #### G LULS #### Point of Care testing , Hemoglobin Test strip Ql (U) Ordered By: Mone Brennan on 11-13-2023 Hemoglobin Ql (U) Negative Negative [facility] Hemoglobin [Mass/volume] in BloodOrdered By: Mone Brennan on 11-13-2023 Hemoglobin (Bld) [Mass/Vol] 9.9 g/dL Low 11.8-15.4 [facility] Comment on above: Performed By: #### G LULS #### Point of Care testing , Ketones [Presence] in Urine by Test stripOrdered By: Mone Brennan on 11-13-2023 Ketones Ql (U) Negative Normal Negative [facility] Comment on above: Order Comment: Name Collection Type:: Voided Performed By: #### U A #### [facility] [address] [place] [address] [place] Leukocyte esterase [Presence ] in Urine by Test stripOrdered By: Mone Brennan on 11-13-2023 Leukocyte esterase Test strip Ql (U) Negative Normal Negative [facility] Comment on above: Order Comment: Name Collection Type:: Voided Performed By: #### U A #### [facility] [address] [place] [address] [place] Leukocytes [#/volume] correc olga lidia for nucleated erythrocytes in Blood by Automated counOrdered By: Mone Brennan on 11-13-2023 WBC corrected for nucl RBC Auto (Bld) [#/Vol] 6.3 10*3/uL 3.8-11.6 [facility] Leukocytes [#/volume] in Blo od by Automated countOrdered By: Mone Brennan on 11-13-2023 WBC (Bld) [#/Vol] 6.3 10*3/uL Normal 3.8-11.6 [facility] Comment on above: Performed By: #### G LULS #### Point of Care testing , Lymphocytes [#/volume] in Bl ood by Automated countOrdered By: Mone Brennan on 11-13-2023 Lymphocytes (Bld) [#/Vol] 2.0 10*3/uL Normal 1.00-4.8 [facility] Comment on above: Performed By: #### G LULS #### Point of Care testing , Lymphocytes/100 leukocytes i n Blood by Automated countOrdered By: Mone Brennan on 11-13-2023 Lymphocytes/100 WBC (Bld) 32.1 % Normal . [facility] Comment on above: Performed By: #### G LULS #### Point of Care testing , MCH [Entitic mass] by Automa olga lidia countOrdered By: Mone Brennan on 11-13-2023 MCH (RBC) [Entitic mass] 30.6 pg Normal 24.7-34.3 [facility] Comment on above: Performed By: #### G LULS #### Point of Care testing , MCHC Auto (RBC) [Mass/Vol]Or dered By: Mone Brennan on 11-13-2023 MCHC (RBC) [Mass/Vol] 32.9 g/dL 32.0-35.0 [facility] MCV [Entitic volume] by Auto mated countOrdered By: Mone Brennan on 11-13-2023 MCV (RBC) [Entitic vol] 92.8 fL Normal 80-100 [facility] Comment on above: Performed By: #### G LULS #### Point of Care testing , Neutrophils [#/volume] in Bl ood by Automated countOrdered By: Mone Brennan on 11-13-2023 Neutrophils (Bld) [#/Vol] 3.7 10*3/uL Normal 1.8-7.7 [facility] Comment on above: Performed By: #### G LULS #### Point of Care testing , Nitrite Test strip Ql (U)Ord ered By: Mone Brennan on 11-13-2023 Nitrite Ql (U) Negative Negative [facility] No Panel InformationOrdered By: Mone Brennan on 11-13-2023 Estimated GFR (CKD-EPI) > 60.0 mL/Min [facility] Creatinine Clearance (Chem 162.78 [facility] Nucleated erythrocytes [Pres ence] in Blood by Automated countOrdered By: Mone Brennan on 11-13-2023 Nucleated RBC Auto Ql (Bld) 0.4 /100{WBC} 0-0.5 [facility] Platelet mean volume [Entiti c volume] in Blood by Automated countOrdered By: Mone Brennan on 11-13-2023 Platelet mean volume (Bld) [Entitic vol] 6.5 fL Normal 6.3-10.7 [facility] Comment on above: Performed By: #### G LULS #### Point of Care testing , Platelets [#/volume] in Bloo d by Automated countOrdered By: Mone Brennan on 11-13-2023 Platelets (Bld) [#/Vol] 422 10*3/uL Normal 150-450 [facility] Comment on above: Performed By: #### G LULS #### Point of Care testing , Potassium [Moles/volume] in Serum or PlasmaOrdered By: Mone Brennan on 11-13-2023 Potassium [Moles/Vol] 3.4 mmol/L Low 3.5-5.1 [facility] Comment on above: Performed By: #### G LULS #### Point of Care testing , Protein Test strip (U) [Mass /Vol]Ordered By: Mone Brennan on 11-13-2023 Protein (U) [Mass/Vol] Negative Negative [facility] Serum or plasma anion gap de terminationOrdered By: Mone Brennan on 11-13-2023 Anion gap [Moles/Vol] 12.5 mmol/L Normal 6.0-15.0 [facility] Comment on above: Performed By: #### G LULS #### Point of Care testing , Sodium [Moles/volume] in Ser um or PlasmaOrdered By: Mone Brennan on 11-13-2023 Sodium [Moles/Vol] 142 mmol/L Normal 136-145 [facility] Comment on above: Performed By: #### G LULS #### Point of Care testing , Specific gravity Test strip (U) [Rel density]Ordered By: Mone Brennan on 11-13-2023 Specific gravity (U) [Rel density] 1.023 1.001-1.030 [facility] Urea nitrogen [Mass/volume] in Serum or PlasmaOrdered By: Mone Brennan on 11-13-2023 Urea nitrogen [Mass/Vol] 7 mg/dL Normal 7-25 [facility] Comment on above: Performed By: #### G LULS #### Point of Care testing , Urinalysison 11-13-2023 Bilirubin,Urine Negative Normal Negative [facility] Comment on above: Order Comment: Name Collection Type:: Voided Performed By: #### U A #### [address] Glucose Ql (U) Normal Normal Normal [facility] Comment on above: Order Comment: Name Collection Type:: Voided Performed By: #### U A #### [facility] [address] [place] [address] [place] Nitrite,Urine Negative Normal Negative [facility] Comment on above: Order Comment: Name Collection Type:: Voided Performed By: #### U A #### [facility] [address] [place] [address] [place] Occult Blood,Urine Negative Normal Negative [facility] Comment on above: Order Comment: Name Collection Type:: Voided Result Comment: PERF ORMED BY: [place] [id number] PATHOLOGIST FERRY ENGINEER GUILLERMINA TOBAR M.D. Performed By: #### U A #### [address] Protein,Urine Negative Normal Negative [facility] Comment on above: Order Comment: Name Collection Type:: Voided Performed By: #### U A #### [address] Specificy [place],Urine 1.023 Normal 1.001-1.030 [facility] Comment on above: Order Comment: Name Collection Type:: Voided Performed By: #### U A #### [address] Urobilinogen,Urine 2 mg/dL High Normal [facility] Comment on above: Order Comment: Name Collection Type:: Voided Performed By: #### U A #### [address] Urine appearanceOrdered By: Mone Brennan on 11-13-2023 Appearance (U) Clear Normal Clear [facility] Comment on above: Order Comment: Name Collection Type:: Voided Performed By: #### U A #### [address] Urobilinogen Test strip (U) [Mass/Vol]Ordered By: Mone Brennan on 11-13-2023 Urobilinogen (U) [Mass/Vol] 2 mg/dL High Normal [facility] pH of Urine by Test stripOrd ered By: Mone Brennan on 11-13-2023 pH (U) 6.0 [pH] Normal 5.0-9.0 [facility] Comment on above: Order Comment: Name Collection Type:: Voided Performed By: #### U A #### [address] Glucose Poct Glucometerson 0 11-12-2023 Commemt1 Glu2: Cleaned Meter Normal [facility] Comment on above: Result Comment: PERF ORMED BY: [place] [id number] PATHOLOGIST FERRY ENGINEER GUILLERMINA TOBAR M.D. Performed By: #### G LULS #### Point of Care testing , Glucose [Mass/Vol] 107 mg/dL Normal [facility] Comment on above: Result Comment: [place] Glucose Reference Range is dependent on time and content of last meal. Glucose of more than 200 mg/dL in a nonstressed, ambulatory subject supports the diagnosis of Diabetes Mellitus. Performed By: #### G LULS #### Point of Care testing , Glucose Poct Glucometerson 0 11-11-2023 Commemt1 Glu2: Cleaned Meter Normal [facility] Comment on above: Result Comment: PERF ORMED BY: [facility] [address] [place] [address] PATHOLOGIST FERRY ENGINEER GUILLERMINA TOBAR M.D. Performed By: #### G LULS #### Point of Care testing , Glucose [Mass/Vol] 98 mg/dL Normal [facility] Comment on above: Result Comment: [place] Glucose Reference Range is dependent on time and content of last meal. Glucose of more than 200 mg/dL in a nonstressed, ambulatory subject supports the diagnosis of Diabetes Mellitus. Performed By: #### G LULS #### Point of Care testing , Glucose Poct Glucometerson 0 11-10-2023 Glucose [Mass/Vol] 118 mg/dL Normal [facility] Comment on above: Result Comment: [place] [facility] Glucose Reference Range is dependent on time and content of last meal. Glucose of more than 200 mg/dL in a nonstressed, ambulatory subject supports the diagnosis of Diabetes Mellitus. PERFORMED BY: [facility] [address] [place] [address] PATHOLOGIST FERRY ENGINEER GUILLERMINA TOBAR M.D. Performed By: #### G LULS #### Point of Care testing , Glucose Poct Glucometerson 0 11-09-2023 Glucose [Mass/Vol] 134 mg/dL Normal [facility] Comment on above: Result Comment: [place] om Glucose Reference Range is dependent on time and content of last meal. Glucose of more than 200 mg/dL in a nonstressed, ambulatory subject supports the diagnosis of Diabetes Mellitus. PERFORMED BY: [facility] [address] [place] [address] PATHOLOGIST FERRY ENGINEER GUILLERMINA TOBAR M.D. Performed By: #### G LULS #### Point of Care testing , 36on 11-08-2023 36 I spoke with Nohemi the nurse caring for Ms Palma. She stated she is doing well and experiencing mild pain. She denies any redness, drainage or major swelling. She confirmed her post op appointment on November 18 at 115. They had no questions or concerns. Normal [facility] A1C with Estimated Average G carolyn 11-08-2023 Glucose [Mass/Vol] 134 mg/dL Normal [facility] Comment on above: Result Comment: PERF ORMED BY: [place] [id number] PATHOLOGIST FERRY ENGINEER GUILLERMINA TOBAR M.D. Performed By: #### A 1C WT eA #### [address] Glucose Poct Glucometerson 0 11-08-2023 Commemt1 Glu2: Cleaned Meter Normal [facility] Comment on above: Result Comment: PERF ORMED BY: [place] [id number] PATHOLOGIST FERRY ENGINEER GUILLERMINA TOBAR M.D. Performed By: #### G LULS #### Point of Care testing , Glucose [Mass/Vol] 132 mg/dL Normal [facility] Comment on above: Result Comment: [facility] Glucose Reference Range is dependent on time and content of last meal. Glucose of more than 200 mg/dL in a nonstressed, ambulatory subject supports the diagnosis of Diabetes Mellitus. Performed By: #### G LULS #### Point of Care testing , Glucose mean value [Mass/vol ume] in Blood Estimated from glycated hemoglobinOrdered By: Mone Brennan on 11-08-2023 Average glucose Estimated from glycated hemoglobin (Bld) [Mass/Vol] 134 mg/dL [facility] Hemoglobin A1c percentageOrd ered By: Mone Brennan on 11-08-2023 HbA1c (Bld) [Mass fraction] 6.3 % High 4.3-5.6 [facility] Comment on above: Increased risk for d iabetes: 5.7 - 6.4diabetes: >6.4glycemic control for adults with diabetes: <7.0 Result Comment: Incr eased risk for diabetes: 5.7 - 6.4 diabetes: >6.4 glycemic control for adults with diabetes: <7.0 Performed By: #### A 1C [facility] #### [facility] [address] Alanine aminotransferase [En zymatic activity/volume] in Serum or PlasmaOrdered By: Jonny Bentley on 11-07-2023 ALT [Catalytic activity/Vol] 13 U/L Normal 7-52 [facility] Comment on above: Performed By: #### G LULS #### Point of Care testing , Albumin [Mass/volume] in Ser um or Plasma by Bromocresol green (BCG) dye binding methoOrdered By: Jonny Bentley on 11-07-2023 Albumin BCG dye [Mass/Vol] 3.1 g/dL Low 3.5-5.7 [facility] Alkaline phosphatase [Enzyma tic activity/volume] in Serum or PlasmaOrdered By: Jonny Bentley on 11-07-2023 ALP [Catalytic activity/Vol] 108 U/L High 34-104 [facility] Comment on above: Performed By: #### G LULS #### Point of Care testing , Aspartate aminotransferase [ Enzymatic activity/volume] in Serum or PlasmaOrdered By: Jonny Bentley on 11-07-2023 AST [Catalytic activity/Vol] 19 U/L Normal 13-39 [facility] Comment on above: Performed By: #### G LULS #### Point of Care testing , Bilirubin.total [Mass/volume ] in Serum or PlasmaOrdered By: Jonny Bentley on 11-07-2023 Bilirubin [Mass/Vol] 0.5 mg/dL Normal 0.3-1.0 [facility] Comment on above: Performed By: #### G LULS #### Point of Care testing , Complete Blood Count Auto Di ffon 11-07-2023 Basophils (Bld) [#/Vol] 0.0 10*3/uL Normal 0.0-0.2 [facility] Comment on above: Result Comment: PERF ORMED BY: [facility] [place] [address] PATHOLOGIST FERRY ENGINEER GUILLERMINA TOBAR M.D. Performed By: #### G LULS #### Point of Care testing , Basophils/100 WBC (Bld) 0.5 % Normal . [facility] Comment on above: Performed By: #### G LULS #### Point of Care testing , Eosinophils (Bld) [#/Vol] 0.1 10*3/uL Normal 0.0-0.45 [facility] Comment on above: Performed By: #### G LULS #### Point of Care testing , Eosinophils/100 WBC (Bld) 1.5 % Normal . [facility] Comment on above: Performed By: #### G LULS #### Point of Care testing , Erythrocyte distribution width (RBC) [Ratio] 14.4 % Normal 11.9-15.3 [facility] Comment on above: Performed By: #### G LULS #### Point of Care testing , Hematocrit (Bld) [Volume fraction] 30.1 % Low 34.0-46.4 [facility] Comment on above: Performed By: #### G LULS #### Point of Care testing , Hemoglobin (Bld) [Mass/Vol] 10.1 g/dL Low 11.8-15.4 [facility] Comment on above: Performed By: #### G LULS #### Point of Care testing , Lymphocytes (Bld) [#/Vol] 1.5 10*3/uL Normal 1.00-4.8 [facility] Comment on above: Performed By: #### G LULS #### Point of Care testing , Lymphocytes/100 WBC (Bld) 30.0 % Normal . [facility] Comment on above: Performed By: #### G LULS #### Point of Care testing , MCH (RBC) [Entitic mass] 30.7 pg Normal 24.7-34.3 [facility] Comment on above: Performed By: #### G LULS #### Point of Care testing , MCV (RBC) [Entitic vol] 91.3 fL Normal 80-100 [facility] Comment on above: Performed By: #### G LULS #### Point of Care testing , Mean Corpuscular HGB Conc 33.7 g/dL Normal 32.0-35.0 [facility] Comment on above: Performed By: #### G LULS #### Point of Care testing , Monocytes (Bld) [#/Vol] 0.6 10*3/uL Normal 0.0-0.8 [facility] Comment on above: Performed By: #### G LULS #### Point of Care testing , Monocytes/100 WBC (Bld) 12.2 % Normal . [facility] Comment on above: Performed By: #### G LULS #### Point of Care testing , Neutrophils (Bld) [#/Vol] 2.8 10*3/uL Normal 1.8-7.7 [facility] Comment on above: Performed By: #### G LULS #### Point of Care testing , Neutrophils/100 WBC (Bld) 55.8 % Normal . [facility] Comment on above: Performed By: #### G LULS #### Point of Care testing , NRBC% 0.3 /100{WBC} Normal 0-0.5 [facility] Comment on above: Performed By: #### G LULS #### Point of Care testing , Platelet mean volume (Bld) [Entitic vol] 6.5 fL Normal 6.3-10.7 [facility] Comment on above: Performed By: #### G LULS #### Point of Care testing , Platelets (Bld) [#/Vol] 375 10*3/uL Normal 150-450 [facility] Comment on above: Performed By: #### G LULS #### Point of Care testing , RBC (Bld) [#/Vol] 3.30 10*6/uL Low 3.60-5.00 [facility] Comment on above: Performed By: #### G LULS #### Point of Care testing , WBC (Bld) [#/Vol] 5.0 10*3/uL Normal 3.8-11.6 [facility] Comment on above: Performed By: #### G LONNIELS #### Point of Care testing , Comprehensive Metabolic Pane caleb 11-07-2023 Albumin [Mass/Vol] 3.1 g/dL Low 3.5-5.7 [facility] Comment on above: Performed By: #### G LONNIELS #### Point of Care testing , Anion gap [Moles/Vol] 9.5 mmol/L Normal 6.0-15.0 [facility] Comment on above: Performed By: #### G LONNIELS #### Point of Care testing , Calcium [Mass/Vol] 8.4 mg/dL Low 8.6-10.3 [facility] Comment on above: Performed By: #### G ANABELLA #### Point of Care testing , Chloride [Moles/Vol] 107 mmol/L Normal 98-107 [facility] Comment on above: Performed By: #### G LONNIELS #### Point of Care testing , CO2 [Moles/Vol] 27.0 mmol/L Normal 21.0-31.0 [facility] Comment on above: Performed By: #### G LONNIELS #### Point of Care testing , Creatinine [Mass/Vol] 0.60 mg/dL Normal 0.60-1.20 [facility] Comment on above: Performed By: #### G LONNIELS #### Point of Care testing , Creatinine Clr Calc Pharmacy 177.69 Normal [facility] Comment on above: Performed By: #### G LULS #### Point of Care testing , GFR/1.73 sq M.predicted MDRD (S/P/Bld) [Vol rate/Area] mL/min/{1.73_m2} Normal [facility] Comment on above: Performed By: #### G LULS #### Point of Care testing , Glucose [Mass/Vol] 105 mg/dL High 70-100 [facility] Comment on above: Result Comment: [place] Glucose Reference Range is dependent on time and content of last meal. Glucose of more than 200 mg/dL in a nonstressed, ambulatory subject supports the diagnosis of Diabetes Mellitus. ADA recommended reference range Performed By: #### G LULS #### Point of Care testing , Potassium [Moles/Vol] 3.5 mmol/L Normal 3.5-5.1 [facility] Comment on above: Performed By: #### G LULS #### Point of Care testing , Sodium [Moles/Vol] 140 mmol/L Normal 136-145 [facility] Comment on above: Performed By: #### G LULS #### Point of Care testing , Urea nitrogen [Mass/Vol] 6 mg/dL Low 7-25 [facility] Comment on above: Performed By: #### G LULS #### Point of Care testing , Glucose Poct Glucometerson 0 11-07-2023 Glucose [Mass/Vol] 172 mg/dL Normal [facility] Comment on above: Result Comment: [place] Glucose Reference Range is dependent on time and content of last meal. Glucose of more than 200 mg/dL in a nonstressed, ambulatory subject supports the diagnosis of Diabetes Mellitus. PERFORMED BY: [address] [address] PATHOLOGIST FERRY ENGINEER GUILLERMINA TOBAR M.D. Performed By: #### G LULS #### Point of Care testing , Prealbumin [Mass/volume] in Serum or PlasmaOrdered By: Jonny Bentley on 11-07-2023 Prealbumin [Mass/Vol] 11.3 mg/dL Low 17.0-34.0 [facility] Comment on above: Result Comment: PERF ORMED BY: [facility] [address] [address] PATHOLOGIST FERRY ENGINEER GUILLERMINA TOBAR M.D. Performed By: #### G LULS #### Point of Care testing , Protein [Mass/volume] in Ser um or PlasmaOrdered By: Jonny Bentley on 11-07-2023 Protein [Mass/Vol] 6.3 g/dL Low 6.4-8.9 [facility] Comment on above: Performed By: #### G LULS #### Point of Care testing , Serum globulin measurement b y calculation (mass/volume)Ordered By: Jonny Bentley on 11-07-2023 Globulin (S) [Mass/Vol] 3.2 g/dL [facility] Comment on above: Performed By: #### G LULS #### Point of Care testing , Serum or plasma albumin/glob ulin mass ratioOrdered By: Jonny Bentley on 11-07-2023 Albumin/Globulin [Mass ratio] 1.0 {ratio} [facility] Comment on above: Performed By: #### G LULS #### Point of Care testing , XR knee LT 2Von 11-07-2023 XR knee LT 2V [facility] [place] [address] XRay Report Signed Patient: Navdeep Palma MR#: [id number] : 1975 Acct:[id number] Age/Sex: 48 / F ADM Date: 11/06/23 Loc: Room: [address] [place] [address] Type: ADM IN Attending Dr: Jonny Bentley MD Copies to: MD Mone Esqueda APRN Ordering Provider: Mone Brennan APRN Date of Service: 11/07/23 XR/XR knee LT 2V: incr pain LEFT KNEE - 2 views COMPARISON: 05/05/2019 CLINICAL DATA: Knee replacement one week ago. Twisting injury yesterday with increasing pain. AP and lateral views of the knee were obtained. There is a new left knee prosthesis. The hardware appears intact and in appropriate position. No acute fractures or dislocation are noted. There is a knee effusion. The soft tissues are diffusely prominent related to large body habitus. XR/XR knee LT 2V IMPRESSION: SATISFACTORY APPEARANCE OF KNEE REPLACEMENT. NO OBVIOUS ACUTE BONY INJURY. Impression dictated by: Allie Greenfield M.D.11/07/2023 3:23 PM Dictation Location: [place] [address] Transcribed By: [facility] 11/07/23 1523 Dictated By: Allie Greenfield MD 11/07/23 1521 Signed By: 11/07/23 1523 Normal [facility] 30on 11-06-2023 30 Daily Case Managemen t Update Multidisciplinary rounds have been completed. Barriers to Discharge: Sent message via [employer] to [facility] and requested a call back concerning discharge today. 8:14 Received a call form [facility] and they have a bed available for today just needed updates sent (SW notified ). Requesting a 2:00 transport. 10:05 [facility] is requesting a more recent OT note-OT notified via [employer]. 11:57 Faxed OT note per facility request for an updated note. Diet: Dietary Orders (From admission, onward) Start Ordered 10/31/23 1640 Regular Diet Diet effective now Question: Room Service? Answer: Yes 10/31/23 1639 Physician Expected Discharge Date: 11/06/2023 Discharge Delays: PT Six Click Score: 17 OT Six Click Score: 17 PT Recommendations: Inpatient rehab facility placement OT Recommendations: Inpatient rehab facility placement New Consults: Therapy Orders (From admission, onward) Start Ordered 10/31/23 1500 PT eval and treat (Knee Arthroplasty) Until therapy completed Question: Reason for PT? Answer: fall risk assessment only 10/31/23 1459 10/31/23 1500 OT eval and treat (Knee Arthroplasty) Until therapy completed Question: Reason for OT? Answer: post left tka 10/31/23 1459 10/31/23 1024 PT eval and treat Until therapy completed Question: Reason for PT? Answer: discharge eval, s/p total knee 10/31/23 1025 Normal [facility] 30 The patient is Moderately Stable - Low risk of patient condition declining or worsening The patient's goals for the shift include dc to facility The clinical goals for the shift include dc to facility Over the shift, the patient did not make progress toward the following goals. Barriers to progression include placement. Recommendations to address these barriers include waiting return call from [facility]. Normal [facility] CONSULTon 11-06-2023 CONSULT 8:40-SW notifed by [facility] karen [facility] is able to accept patient today at 2:00pm pending sent documentation. CHET faxed documentation to [facility]. to arrange transportation for 1:00pm for patient to arrive at 2:00pm 10:00- received phone call from [facility]. They need an updated OT note, the AVS, and Auth Letter faxed. OT is notified of needed re-eval. SW informed by [facility] they can accept patient at 2:00pm, but at the latest she would need to leave [facility] would be 6:00pm. 10:30-Patient is on will call for transportation. 12:00- confirmed a 3:30pm transport time for patient. Packet completed, to notify facility and patient. 12:20-Discharge order placed. AVS faxed to [facility]. Transport set up with [facility] at 3:30pm. Transport form and packet completed and left beside the chart. Facility,patient, and floor RN aware of transport time. Phone number for report left with packet. 15:30- notified by [facility] that transport has been pushed to 4:30pm as additional crews needed to be contacted. No further OTM needs at this time. Normal [facility] NURSNOTEon 11-06-2023 NURSNOTE Report called to [facility], all questions answered. Callback number left in case of other question when patient arrives. Normal [facility] CONSULTon 11-05-2023 CONSULT 15:50- called [facility] IPR to check on bed availability as OTM was notified of precert approval. They were unavailable- and contact information was left. OTM will continue to follow. [facility] 11-04-2023 30 The patient is Moderately Stable - Low risk of patient condition declining or worsening The patient's goals for the shift include pain control The clinical goals for the shift include comfort Problem: Pain - Adult Goal: Verbalizes/displays adequate comfort level or baseline comfort level Outcome: Progressing Problem: Safety - Adult Goal: Free from fall injury Outcome: Progressing Problem: Discharge Planning Goal: Discharge to home or other facility with appropriate resources Outcome: Progressing Problem: Chronic Conditions and Co-morbidities Goal: Patient's chronic conditions and co-morbidity symptoms are monitored and maintained or improved Outcome: Progressing [facility] 3011-02-2023 30 Daily Case Managemen t Update Multidisciplinary rounds have been completed. Barriers to Discharge: Called [facility] in regards to IPR acceptance-left message for a return phone due to no response in [facility]. 9:38 Called [facility] again and spoke with Janet concerning acceptance. She stated it is in review and stated that she would get an answer at the 11:00 meeting. Await acceptance. 11:53 Received a call from [facility] requesting additional clinical. Uploaded and faxed requested clinical. Await determination of acceptance. 14;32 Received a phone call from Janet at [facility] and they are able to accepted. Sent an apic message to Ary requesting she state precert. Diet: Dietary Orders (From admission, onward) Start Ordered 10/31/23 1640 Regular Diet Diet effective now Question: Room Service? Answer: Yes 10/31/23 1639 Physician Expected Discharge Date: 11/02/2023 Discharge Delays: Waiting on therapy sign-off [102] PT Six Click Score: 15 OT Six Click Score: 18 PT Recommendations: Inpatient rehab facility placement OT Recommendations: Inpatient rehab facility placement New Consults: Therapy Orders (From admission, onward) Start Ordered 10/31/23 1500 PT eval and treat (Knee Arthroplasty) Until therapy completed Question: Reason for PT? Answer: fall risk assessment only 10/31/23 1459 10/31/23 1500 OT eval and treat (Knee Arthroplasty) Until therapy completed Question: Reason for OT? Answer: post left tka 10/31/23 1459 10/31/23 1024 PT eval and treat Until therapy completed Question: Reason for PT? Answer: discharge eval, s/p total knee 10/31/23 1025 Normal [facility] 30on 11-01-2023 30 Daily Case Managemen t Update Multidisciplinary rounds have been completed. Barriers to Discharge: Pending clinical course and improvement in clinical condition. POD 1 ARTHROPLASTY, KNEE, TOTAL (L). 12:49 PT recommending IPR. Await choices-Sw aware. 17:30 Referral sent IPR [facility] sent for placement. Await acceptance then precert. Diet: Dietary Orders (From admission, onward) Start Ordered 10/31/23 1640 Regular Diet Diet effective now Question: Room Service? Answer: Yes 10/31/23 1639 Physician Expected Discharge Date: 11/01/2023 Discharge Delays: PT Six Click Score: 12 OT Six Click Score: 14 PT Recommendations: Home PT, With 24hr supervision OT Recommendations: Home, Home OT, With assist (pending progress, once pt more alert likely will do well. Pt has a lot of stairs at home but did plan to get a hospital bed and BSC for first floor.) New Consults: Ancillary Consults (From admission, onward) Start Ordered 10/31/23 1500 Inpatient consult to Social Work (Knee Arthroplasty) Once Provider: (Not yet assigned) Question: Select all services needed for the patient Answer: DME 10/31/23 1459 Therapy Orders (From admission, onward) Start Ordered 10/31/23 1500 PT eval and treat (Knee Arthroplasty) Until therapy completed Question: Reason for PT? Answer: fall risk assessment only 10/31/23 1459 10/31/23 1500 OT eval and treat (Knee Arthroplasty) Until therapy completed Question: Reason for OT? Answer: post left tka 10/31/23 1459 10/31/23 1024 PT eval and treat Until therapy completed Question: Reason for PT? Answer: discharge eval, s/p total knee 10/31/23 1025 Normal [facility] BASIC METABOLIC PANELon 10-11 Anion gap [Moles/Vol] 14 mmol/L Normal 7-20 [facility] Comment on above: Performed By: #### L [id number] ####[facility] (BEAKER)[address] [place] [address] Calcium [Mass/Vol] 7.9 mg/dL Low 8.6-10.3 [facility] Comment on above: Performed By: #### L [id number] ####[facility] (BEAKER)[address] [place] [facility] [facility] [address] Chloride [Moles/Vol] 101 mmol/L Normal 98-107 [facility] Comment on above: Performed By: #### L AB15 ####[facility] ([facility]AKER)[address] [place] [address] CO2 [Moles/Vol] 25 mmol/L Normal 21-31 [facility] Comment on above: Performed By: #### L [id number] ####[facility] ([facility]AKER)[address] [place] [address] Creatinine [Mass/Vol] 0.66 mg/dL Normal 0.60-1.20 [facility] Comment on above: Performed By: #### L [id number] ####[facility] ([facility])[address] [place] [address] GLOMERULAR FILTRATION RATE ML/MIN/1.73 SQ M.PREDICTED 106.8 mL/min/1.73m*2 Normal >60.0 [facility] Comment on above: Result Comment: The [facility]???s estimated glomerular filtration rate (eGFR) will no longer include consideration of race in its calculation. The National Kidney Foundation???s eGFR Task Force developed new recommendations for the estimation of the glomerular filtration rate in the [place] They recommend immediate implementation of the new equation refit without the race variable in all laboratories because the calculation does not include race. In addition to not including race in the calculation and reporting, it included diversity in its development, and has acceptable performance characteristics and potential consequences that do not disproportionately affect any one group of individuals. Performed By: #### L AB15 ####[facility] ([facility])[address] [place] [address] Glucose [Mass/Vol] 183 mg/dL High 70-100 [facility] Comment on above: Performed By: #### L [id number] ####[facility] ([facility])[address] [place] [address] Potassium [Moles/Vol] 3.6 mmol/L Normal 3.5-5.1 [facility] Comment on above: Performed By: #### L AB15 ####[facility] ([facility])[address] [place] [address] Sodium [Moles/Vol] 136 mmol/L Normal 136-145 [facility] Comment on above: Performed By: #### L AB15 ####[facility] ([facility])[address] [place] [address] Urea nitrogen [Mass/Vol] 9 mg/dL Normal 7-25 [facility] Comment on above: Performed By: #### L AB15 ####[facility] ([facility])[address] [place] [address] UREA NITROGEN/CREATININE (MASS RATIO) IN SER/PLAS 13.6 Normal [facility] Comment on above: Performed By: #### L [id number] ####[facility] ([facility])[address] [place] [address] CBCon 11-01-2023 Erythrocyte distribution width (RBC) [Ratio] 14.8 % Normal 11.5-15.0 [facility] Comment on above: Performed By: #### L [id number] #### [facility] ([facility]) [address] [place] [address] ERYTHROCYTE MEAN CORPUSCULAR HEMOGLOBIN CONCENTRATION (G/DL) BY AUTOMATED 32.2 g/dL Normal 32.0-35.0 [facility] Comment on above: Performed By: #### L [id number] #### [facility] ([facility]) [address] [place] [address] Hematocrit (Bld) [Volume fraction] 33.2 % Low 36.0-48.0 [facility] Comment on above: Performed By: #### L [id number] #### [facility] ([facility]) [address] [place] [address] Hemoglobin (Bld) [Mass/Vol] 10.7 g/dL Low 12.0-15.0 [facility] Comment on above: Performed By: #### L [id number] #### [facility] ([facility]) [address] [place] [address] MCH (RBC) [Entitic mass] 30.1 pg Normal 27.0-33.0 [facility] Comment on above: Performed By: #### L [id number] #### [facility] ([facility]) [address] [place] [address] MCV (RBC) [Entitic vol] 93.5 fL Normal 82.0-98.0 [facility] Comment on above: Performed By: #### L [id number] #### [facility] ([facility]) [address] [place] [address] PLATELETS (10*3/UL) IN BLOOD AUTOMATED COUNT 305 10*3/uL Normal 150-400 [facility] Comment on above: Performed By: #### L [id number] #### [facility] ([facility]) [address] [place] [address] RBC (Bld) [#/Vol] 3.55 10*6/uL Low 3.80-5.[address] [facility] Comment on above: Performed By: #### L [id number] #### [facility] ([facility]) [address] [place] [address] WBC (Bld) [#/Vol] 7.89 10*3/uL Normal 4.00-10.[address] [facility] Comment on above: Performed By: #### L [id number] #### [facility] ([facility]) [address] [place] [address] 36on 10-31-2023 36 Note faxed Normal [facility] 36 Gerard needs the note to state this specifically to get dme equipment approved Rolatator will significantly approve mobility limitations/ mradls Getting to the restroom , around the house, appointments With the commode medicaid would cover if the restroom is on second floor, or room confined. Call Gerard once this has been or for further clarification before sending ammeded note For DME equipment Normal [facility] CONSULTon 10-31-2023 CONSULT -- Attestation signed by Kim Stafford MD at 11/03/2023 10:55 AM GC: I saw this patient. I personally personally the critical/humphries portions that determines the level of service. I was directly involved in the management and treatment plan of the patient. I reviewed Hadeer Elsharnoby, MD's note and agree. Principal Problem: Primary osteoarthritis of left knee Active Problems: Essential hypertension Morbid obesity with body mass index of 50 or higher ([facility]) SOPHIE (obstructive sleep apnea) Status post total knee replacement using cement, left Hypoxia Hypoxia likely combination of obesity hypoventilation and anesthesia. Reviewed and approved by KIM STAFFORD on 11/03/23 at 10:55 AM. [facility] Inpatient Consult Note Patient - Navdeep Palma Age - 48 y.o. - 1975 Date of Admission - 10/31/2023 6:41 AM Reason for the consult Hypoxia History of Present Illness Navdeep Palma is a 48 y.o. female patient with PMH of hypertension, obstructive sleep apnea not using CPAP at home, degenerative disease who presented to the hospital for elective left knee arthroplasty. In the PACU patient oxygen saturations dropped to 80s. Patient required 3 L of nasal cannula. Patient was seen and examined at the PACU bedside. Daughter at bedside. Patient stated she is not using her CPAP at home. Patient complained of left knee pain and was very drowsy. PMH: Patient has a past medical history of Arthritis, CPAP (continuous positive airway pressure) dependence, Fibromyalgia, primary, Hypertension, Left knee pain, Lupus (systemic lupus erythematosus) ([facility]), Migraine, Obesity, Osteoarthritis, and Sleep apnea. PSH: Patient has a past surgical history that includes Gastrectomy and Joint replacement (Right, 02/2021). SH: Patient reports that she has never smoked. She has never been exposed to tobacco smoke. She has never used smokeless tobacco. She reports that she does not currently use alcohol. She reports that she does not use drugs. Alc/Tobacco/Drug: Patient reports that she does not currently use alcohol. reports that she has never smoked. She has never been exposed to tobacco smoke. She has never used smokeless tobacco. reports no history of drug use. Medications: Patient Current Facility-Administered Medications: aspirin tablet 325 mg, 325 mg, oral, BID, Mandi Scott, ceFAZolin (Ancef) 3 g in sodium chloride 0.9 % 100 mL IVPB, 3 g, intravenous, q8h, Lyssa Park MD ceFAZolin (Ancef) IVPB 2 g in 100 mL (Mini-Bag Plus) in NS, 2 g, intravenous, q8h, Mandi Scott DO [START ON 11/01/2023] cholecalciferol (Vitamin D-3) tablet 2,000 Units, 2,000 Units, oral, Daily with breakfast, Heather White MD diphenhydrAMINE (BENADryl) injection 12.5 mg, 12.5 mg, intravenous, q15 min PRN, Zane Barfield MD docusate sodium (Colace) capsule 100 mg, 100 mg, oral, BID PRN, Heather White MD docusate sodium (Colace) capsule 100 mg, 100 mg, oral, BID, Mandi Scott, HYDROmorphone (Dilaudid) injection 0.2 mg, 0.2 mg, intravenous, q3h PRN, Mandi Scott, HYDROmorphone (Dilaudid) injection 0.3 mg, 0.3 mg, intravenous, q15 min PRN, Zane Barfield MD lactated Ringer's infusion, 30 mL/hr, intravenous, Continuous, Tyler Flor MD, Last Rate: 30 mL/hr at 10/31/23 0824, 1,000 mL at 10/31/23 0920 naloxone (Narcan) injection 0.1 mg, 0.1 mg, intravenous, PRN, Zane Barfield MD naloxone (Narcan) injection 0.2 mg, 0.2 mg, intravenous, PRN OR naloxone (Narcan) injection 0.2 mg, 0.2 mg, intramuscular, PRN OR naloxone (Narcan) injection 0.2 mg, 0.2 mg, subcutaneous, PRN, Mandi Scott, DO ondansetron HCl (PF) (Zofran) injection 4 mg, 4 mg, intravenous, Once PRN, Zane Barfield MD ondansetron ODT (Zofran-ODT) disintegrating tablet 4 mg, 4 mg, oral, q8h PRN OR ondansetron HCl (PF) (Zofran) injection 4 mg, 4 mg, intravenous, q6h PRN, Heather White MD ondansetron ODT (Zofran-ODT) disintegrating tablet 4 mg, 4 mg, oral, q8h PRN OR ondansetron HCl (PF) (Zofran) injection 4 mg, 4 mg, intravenous, q6h PRN, Mandi Scott, DO oxyCODONE (Roxicodone) immediate release split tablet 2.5 mg, 2.5 mg, oral, q6h PRN OR oxyCODONE (Roxicodone) immediate release tablet 5 mg, 5 mg, oral, q6h PRN, Mandi Scott, DO Oxygen Therapy, , inhalation, Continuous PRN, Zane Barfield MD Oxygen Therapy, , inhalation, Continuous PRN, Zane Barfield MD Oxygen Therapy, , inhalation, Continuous PRN, Zane Barfield MD Oxygen Therapy, , inhalation, Continuous PRN, Zane Barfield MD Oxygen Therapy, , inhalation, Continuous, Mandi Alstonw, DO prochlorperazine (Compazine) injection 5 mg, 5 mg, intravenous, Once PRN, Zane Barfield MD Insert perip (more content not included)... [facility] HPon 10-31-2023 H&P reviewed. The patient was examined and there are no changes to the H&P. [facility] HP H&P reviewed. The patient was examined and there are no changes to the H&P. [facility] Augusto 10-31-2023 JACQUI BEAVER called floor report Normal [facility] JACQUI RN called PT and anthony d them they can come work w/pt. [facility] JACQUI Pt complaining of a lot of pain RN spoke to anesthesia doing a second nerve block not an option adding more pain meds. 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 Triathlon X3 total bearing insert posterior stabilized size 5, 13 mm thickness Triathlon X3 asymmetric patella size A 35,10 mm thickness Primary Triathlon, [place] tibial base plate size 5 Triathlon Left femoral implant size 5, PS left side Triathlon Cemented stem 15x 50 mm [employer] bone cement, total of 2 batches. Surgeons Primary: Lyssa Park MD Resident - Assisting: Mandi Scott DO; MD Boni Rosas plumber's assistant Traveling Accountant: Dr Zane Barfield MD Procedure Summary Anesthesia: General ASA: I Estimated Blood Loss: 50 mL Total tourniquet time is 68 minutes. Total IV Fluids: Please see anesthesia chart mL Drains: * None in log * Implants Type Name Action Serial No. Bone Cement CEMENT,BONE,R,[id number] - [id number] Implanted Total Joint PIN,FIXATION,KONG,L3 - [id number] Implanted Total Joint TIBIAL BASE,UNIVERSAL,#5 - [id number] Implanted Total Joint PATELLAR,TRIATHLON,X3, [id number] - [id number] Implanted Total Joint FEMORAL,TRIATHLON,LFT, 5 - [id number] Implanted Total Joint STEM,CEMENTED,TS,15X50 MM - [id number] Implanted Total Joint TIBIAL BEARING INSERT Implanted Staff: Housekeeping/Laundry Supervisor: Elvie Dunham RN Scrub Person: Marbella Gross, TY Race Car Mechanic: Boni Yousif CSA Indications: Domingo Palma is an 48 y.o. female who is having surgery for Primary osteoarthritis of left knee [M17.12] in the form of left primary cemented total knee arthroplasty. Patient known to have severe degenerative's of her left knee joint along with varus deformity and class III obesity with a BMI of almost 56.5 kg/m???. Patient is s/p right primary knee arthroplasty and has been doing well with the right side. She would like to proceed with her left knee replacement surgery. She has been struggling to lose weight due to her severe pain in the knee joint. Patient has been struggling to walk around and has been having severe pain in her left knee joint along with limp. Class III obesity and is willing to take the risks associated which are more than normal for her weight and height. Patient has tried nonsurgical treatment in the form of oral pain medications and NSAIDs as well as a cortisone injection and viscosupplementation in the left knee joint which has failed. Patient is indicated for left primary total knee arthroplasty. X-rays of the left knee joint show severe degenerative arthritis of the left knee joint along with osteophytosis and varus deformity. Subchondral cyst noted as well as subchondral sclerosis. Details of the surgery -left primary cemented total knee arthroplasty using [place] triathlon implants without without lateral release and required procedures, were explained to patient including complications which are but not restricted to bleeding, infection, neuro-vascular injury, tendon injury, ligament injury, intraoperative fractures, need for further surgery in future, Deep vein thrombosis, pulmonary embolism, myocardial infarction, stroke, mortality < 1%, periprosthetic fracture, revision total knee replacement, staged knee replacement in case of infection, stiffness requiring manipulation under anesthesia or open scar excision and Quadricepsplasty, blood transfusion due to blood loss, terminal makeup operator rehabilitation, residual pain and stiffness, lifestyle modifications, polyethylene wear requiring revision, hardware failure, loosening, anesthetic complications, allergic reaction, disfiguring scar or keloid formation, loss of function of limb/organ, despite these risks patient wishes to proceed with the surgery. Patient has signed her consent form. Site was marked in the preoperative holding area. IV antibiotics were commenced within hour of the incision. Procedure Details: The patient was seen in the preoperative area. The risks, benefits, complications, treatment options, non-operative alternatives, expected recovery and outcomes were discussed with the patient. The possibilities of reaction to medication, pulmonary aspiration, injury to surrounding structures, bleeding, (more content not included)... [facility] POCT GLUCOSE METER UNSOLICIT ED RESULTSon 10-31-2023 Glucose [Mass/Vol] 140 mg/dL High 70-105 [facility] Comment on above: Order Comment: Waive d Testing in the ED is performed under the ED CLIA certificate #[id number]. Result Comment: onel ng12 Performed By: #### L [id number] #### [facility] ([facility]) [address] [place] [address] 36on 10-29-2023 36 Patient requesting call back from re, wanting to ask her a question regarding home health [facility] 10-25-2023 36 NOTE FAXED [facility] 36on 10-24-2023 36 Zane called to request new prescriptions for rolling walker and shower chair d/t note was after 10/14, and patient needs clarification of bedside commode d/t not mentioned in the notes, or a new prescription for raised toilet seat with updated date to reflect notes 10/21, also for rolling walker MRADLS needs to be mentioned in note, and specify why seat is needed on rollator, and how the rollator will improve patient mobility deficits. Fax#[phone] [facility] 36 NOTE FAXED. [facility] 3610-22-2023 36 Patient needs signed note from last visit, demographics, faxed to [phone] [facility] APTTon 10-22-2023 ACTIVATED PARTIAL THROMBOPLASTIN TIME IN PPP BY COAGULATION ASSAY 27.5 Seconds Normal 25.0-35.0 [facility] Comment on above: Result Comment: Clin ical significance of the APTT is questionable in the presence of heparin. Performed By: #### L [id number] #### [facility] ([facility]) [address] [place] [address] CBC WITH AUTO DIFFERENTIALon 10-22-2023 Basophils (Bld) [#/Vol] 0.01 10*3/uL Normal 0.00-0.20 [facility] Comment on above: Performed By: #### L [id number] #### [facility] ([facility]) [address] [place] [address] Basophils/100 WBC (Bld) 0.3 % Normal 0.0-1.0 [facility] Comment on above: Performed By: #### L [id number] #### [facility] ([facility]) [address] [place] [address] Eosinophils (Bld) [#/Vol] 0.03 10*3/uL Normal 0.00-0.50 [facility] Comment on above: Performed By: #### L [id number] #### [facility] ([facility]) [address] [place] [address] Eosinophils/100 WBC (Bld) 1.0 % Normal 0.0-6.0 [facility] Comment on above: Performed By: #### L [id number] #### [facility] ([facility]) [address] [place] [address] Erythrocyte distribution width (RBC) [Ratio] 14.6 % Normal 11.5-15.0 [facility] Comment on above: Performed By: #### L [id number] #### [facility] ([facility]) [address] [place] [address] ERYTHROCYTE MEAN CORPUSCULAR HEMOGLOBIN CONCENTRATION (G/DL) BY AUTOMATED 32.7 g/dL Normal 32.0-35.0 [facility] Comment on above: Performed By: #### L [id number] #### [facility] ([facility]) [address] [place] [address] Hematocrit (Bld) [Volume fraction] 38.2 % Normal 36.0-48.0 [facility] Comment on above: Performed By: #### L [id number] #### [facility] ([facility]) [address] [place] [address] Hemoglobin (Bld) [Mass/Vol] 12.5 g/dL Normal 12.0-15.0 [facility] Comment on above: Performed By: #### L [id number] #### [facility] ([facility]) [address] [place] [address] Immature granulocytes (Bld) [#/Vol] 0.00 10*3/uL Normal 0.00-0.20 [facility] Comment on above: Performed By: #### L [id number] #### [facility] ([facility]) [address] [place] [address] Immature granulocytes/100 WBC (Bld) 0.0 % Normal 0.0-1.0 [facility] Comment on above: Performed By: #### L [id number] #### [facility] ([facility]) [address] [place] [address] Lymphocytes (Bld) [#/Vol] 1.26 10*3/uL Normal 1.20-4.00 [facility] Comment on above: Performed By: #### L [id number] #### [facility] ([facility]) [address] [place] [address] Lymphocytes/100 WBC (Bld) 40.3 % Normal 20.0-45.0 [facility] Comment on above: Performed By: #### L [id number] #### [facility] ([facility]) [address] [place] [address] MCH (RBC) [Entitic mass] 30.1 pg Normal 27.0-33.0 [facility] Comment on above: Performed By: #### L [id number] #### [facility] ([facility]) [address] [place] [address] MCV (RBC) [Entitic vol] 92.0 fL Normal 82.0-98.0 [facility] Comment on above: Performed By: #### L [id number] #### [facility] ([facility]) [address] [place] [address] Monocytes (Bld) [#/Vol] 0.31 10*3/uL Normal 0.10-1.00 [facility] Comment on above: Performed By: #### L [id number] #### [facility] ([facility]) [address] [place] [address] Monocytes/100 WBC (Bld) 9.9 % Normal 5.0-12.0 [facility] Comment on above: Performed By: #### L [id number] #### [facility] ([facility]) [address] [place] [address] Neutrophils (Bld) [#/Vol] 1.52 10*3/uL Low 1.60-7.60 [facility] Comment on above: Performed By: #### L [id number] #### [facility] ([facility]) [address] [place] [address] Neutrophils/100 WBC (Bld) 48.5 % Normal 40.0-72.0 [facility] Comment on above: Performed By: #### L [id number] #### [facility] ([facility]) [address] [place] [address] NRBC (PER 100 WBCS) BY AUTOMATED COUNT 0.0 % Normal 0 [facility] Comment on above: Performed By: #### L [id number] #### [facility] ([facility]) [address] [place] [address] PLATELETS (10*3/UL) IN BLOOD AUTOMATED COUNT 369 10*3/uL Normal 150-400 [facility] Comment on above: Performed By: #### L [id number] #### [facility] ([facility]) [address] [place] [address] RBC (Bld) [#/Vol] 4.15 10*6/uL Normal 3.80-5.[address] [facility] Comment on above: Performed By: #### L [id number] #### [facility] ([facility]) [address] [place] [address] WBC (Bld) [#/Vol] 3.13 10*3/uL Low 4.00-10.[address] [facility] Comment on above: Performed By: #### L [id number] #### [facility] ([facility]) [address] [place] [address] COMPREHENSIVE METABOLIC PANE Caleb 10-22-2023 Albumin [Mass/Vol] 3.7 g/dL Normal 3.5-5.7 [facility] Comment on above: Performed By: #### L [id number] #### [facility] ([facility]) [address] [place] [address] ALP [Catalytic activity/Vol] 137 U/L High 34-104 [facility] Comment on above: Performed By: #### L [id number] #### [facility] ([facility]) [address] [place] [address] ALT [Catalytic activity/Vol] 12 U/L Normal 7-52 [facility] Comment on above: Performed By: #### L [id number] #### [facility] ([facility]) [address] [place] [address] Anion gap [Moles/Vol] 12 mmol/L Normal 7-20 [facility] Comment on above: Performed By: #### L [id number] #### [facility] ([facility]) [address] [place] [address] AST [Catalytic activity/Vol] 19 U/L Normal 13-39 [facility] Comment on above: Performed By: #### L [id number] #### [facility] ([facility]) [address] [place] [address] Bilirubin [Mass/Vol] 0.4 mg/dL Normal 0.3-1.0 [facility] Comment on above: Performed By: #### L [id number] #### [facility] ([facility]) [address] [place] [address] Calcium [Mass/Vol] 8.2 mg/dL Low 8.6-10.3 [facility] Comment on above: Performed By: #### L [id number] #### [facility] ([facility]) [address] [place] [address] Chloride [Moles/Vol] 105 mmol/L Normal 98-107 [facility] Comment on above: Performed By: #### L [id number] #### [facility] ([facility]) [address] [place] [address] CO2 [Moles/Vol] 26 mmol/L Normal 21-31 [facility] Comment on above: Performed By: #### L [id number] #### [facility] ([facility]) [address] [place] [address] Creatinine [Mass/Vol] 0.65 mg/dL Normal 0.60-1.20 [facility] Comment on above: Performed By: #### L [id number] #### [facility] ([facility]) [address] [place] [address] GLOMERULAR FILTRATION RATE ML/MIN/1.73 SQ M.PREDICTED 107.2 mL/min/1.73m*2 Normal >60.0 [facility] Comment on above: Result Comment: The [facility]???s estimated glomerular filtration rate (eGFR) will no longer include consideration of race in its calculation. The National Kid[employer] Foundation???s eGFR Task Force developed new recommendations for the estimation of the glomerular filtration rate in the [place] They recommend immediate implementation of the new equation refit without the race variable in all laboratories because the calculation does not include race. In addition to not including race in the calculation and reporting, it included diversity in its development, and has acceptable performance characteristics and potential consequences that do not disproportionately affect any one group of individuals. Performed By: #### L [id number] #### [facility] ([facility]) [address] [place] [address] Glucose [Mass/Vol] 112 mg/dL High 70-100 [facility] Comment on above: Performed By: #### L [id number] #### [facility] ([facility]) [address] [place] [address] Potassium [Moles/Vol] 3.5 mmol/L Normal 3.5-5.1 [facility] Comment on above: Performed By: #### L [id number] #### [facility] ([facility]) [address] [place] [address] Protein [Mass/Vol] 7.2 g/dL Normal 6.0-8.3 [facility] Comment on above: Performed By: #### L [id number] #### [facility] ([facility]) [address] [place] [address] Sodium [Moles/Vol] 139 mmol/L Normal 136-145 [facility] Comment on above: Performed By: #### L [id number] #### [facility] ([facility]) [address] [place] [address] Urea nitrogen [Mass/Vol] 7 mg/dL Normal 7-25 [facility] Comment on above: Performed By: #### L [id number] #### [facility] ([facility]) [address] [place] [address] UREA NITROGEN/CREATININE (MASS RATIO) IN SER/PLAS 10.8 [facility] Comment on above: Performed By: #### L [id number] #### [facility] ([facility]) [address] [place] [address] Consulton 10-22-2023 Consult [phone] Apolonia Palma 1975 F Date Provider Department [place] 10/22/2023 LYSSA MATSON MP ORTHO MPORTHO Family History Problem Relation Age of Onset Cancer Mother Family Status - Relation Status Age at Mother Level of Service:79168 AL OFFICE/OUTPATIENT ESTABLISHED MOD MDM 30 MIN (57,GC) Reason for Visit and Comments: Pre-op Visit [558] Pain [136] Normal [facility] HPon 10-22-2023 HP Patient ID: Domingo Palma is a 48 y.o. female. Subjective: Patient ID: Navdeep Palma is a 48 y.o. female. 1975 Chief Complaint: Chronic left knee pain HPI: Navdeep Palma is a 48 y.o. female who returns to see me today for preoperative visit. Patient continues to complain of severe pain in her left knee joint and wants to proceed with her left knee replacement surgery. She has been struggling to lose weight and has tried nonsurgical treatment for her pain as mentioned below. She states she has been cleared for her surgery. She continues to weigh about 338 pounds. Patient was seen in the past for left knee pain which she says that is been going on my whole life with no predating trauma or injury. Patient describes her pain as a 10 out of 10. Patient is currently weightbearing as tolerated. Current treatments are [id number] ibuprofen and Tylenol, ice, rest, elevation, bracing, physical therapy that ended 1 year ago. Patient endorses numbness and tingling in the left lower extremity intermittently. Known to me from her previous right knee total knee arthroplasty that was done almost 2 years ago. Patient denies any new pain with the right knee joint at this point in time. She believes that the right knee has been tremendously improved and is happy with the outcome. Social History Occupational History Not on file Tobacco Use Smoking status: Never Passive exposure: Never Smokeless tobacco: Never Substance and Sexual Activity Alcohol use: Never Drug use: Never Sexual activity: Yes Partners: Male control/protection: Other Past Medical History: Diagnosis Date Arthritis Hypertension There were no vitals filed for this visit. Review of systems: Constitutional: No fever or night sweats Musculoskeletal: left knee pain Neurological: Negative for tingling or numbness Physical Exam: General: No acute distress Constitutional: Grossly well-appearing Mental status: Alert and oriented Respiratory: Non-labored breathing Skin: No erythema, ecchymosis, or abrasions left knee exam: Inspection-genu varum deformity noted, patient walks with lateral thrust, has severe Trendelenburg lurch with antalgia. Left knee joint has scars from previous arthroscopy. Effusion: none Palpation- Patellar tendon: not tender Quad tendon: tender Patella: Stable, No crepitus ROM: 10-100 degrees Meniscal exam- Medial joint line: tender Lateral joint line: tender Stability- ACL: Jam negative Collateral Ligaments: Stable to varus and valgus stress at 0 and 30 degrees PCL: Posterior drawer negative Strength Quadriceps: 5/5 Vascular: Brisk capillary refill Neuro: Sensation intact to light touch distally Imaging: X-rays of the left knee joint 3 views were taken today in the office was seen by myself and interpreted independently which show the patient has severe degenerative arthritis of her left knee joint along with subchondral sclerosis and subchondral cyst formation noted. Varus deformity noted along with severe proximal pole patella enthesopathy osteophytes noted. Patient has genu varum deformity along with triple deformity of the knee joint with posterolateral subluxation. Where: [facility] Date: 07/23/2023 x-ray left knee(s) : Complete loss of left tibiofemoral joint space Read and interpreted by Dr. Park Diagnosis Plan 1. Left knee pain, unspecified chronicity XR knee 3 views left Class III obesity with a BMI of 55 kg/m??? S/p right total knee arthroplasty. Plan: Patient was explained the nature of the problem and treatment options. Patient has severe degenerative arthritis of her left knee joint. Since she has had right knee arthroplasty which has been doing well she would like to proceed with her left knee arthroplasty at this has been causing disability and is unable to do her activities of daily living and has not been able to lose weight. -Discussed clinical and imaging findings with the patient. Have given her options for nonsurgical treatment again due to her young age and limited outcome due to her class III obesity. -Discussed risk and benefits of left primary cemented posterior stabilized total knee arthroplasty with patient. Patient understood and elected to proceed with left primary cemented total knee arthroplasty. Risk and benefits of left primary cemented total knee arthroplasty using [place] implants were discussed at length with the patient including complications which are but not restricted to bleeding, infection, neurologic injury, residual pain and stiffness, anesthetic risk, different thrombosis, pulmonary embolism, myocardial infarction, stroke, mortality less than 1%, dislocations, limb length inequality, recurrent infections requiring staged revision knee arthroplasty, need for multiple procedures, bone loss requiring fusion and/or above-knee amputation were all discussed at length with the patient (more content not included)... [facility] Orthopedic Surgery Subjective Chief complaint: Chief Complaint Patient presents with Left Knee - Pre-op Visit, Pain 10/22/23 Navdeep Palma is a 48 y.o. year old female presenting for evaluation of preoperative visit for left knee pain. Patient is known to have degenerative's of the left knee joint which has failed nonsurgical treatment. Previous Treatments: She has tried cortisone injections, oral NSAIDs as well as weight loss program which has failed. Patient has also tried physical therapy. Patient History Past Surgical History: Procedure Laterality Date GASTRECTOMY SLEEVE JOINT REPLACEMENT Right 02/2021 KNEE Past Medical History: Diagnosis Date Arthritis CPAP (continuous positive airway pressure) dependence Fibromyalgia, primary Hypertension Left knee pain Lupus (systemic lupus erythematosus) ([facility] Migraine Obesity BMI 54.55 Osteoarthritis Sleep apnea Objective General: Body mass index is 54.55 kg/m???. No acute distress, comfortable Respiratory: Unlabored breathing with normal rate, no cough Cardiovascular: Warm well perfused extremities Psych: Appropriate mood behavior Please see adjoining note. This is a duplicate note. Imaging: Radiographs of left knee joint 3 views were seen by myself and interpreted independently which demonstrate severe recommend to degenerative arthritis of the left knee joint along with varus deformity and osteophytosis as well as subchondral sclerosis and subchondral cyst formation noted. Triple deformity of the left knee joint noted with posterior lateral sublux of the tibia. Assessment/Plan Navdeep Palma is a 48 y.o. year old female with Genu varum, acquired, left Left knee pain, unspecified chronicity Primary osteoarthritis of left knee Patient's diagnosis significantly interferes with their ability to safely complete ADLs due to weakness and impaired mobility. Patient is safely able to use a rolling walker, raised toilet seat/shower chair. The use of this DME would greatly benefit the patient's ability to complete ADLs. Patient will need a rolling walker and shower chair since the patient has class III obesity with central weakness in the pelvic girdle leading to limited ability to ambulate and support herself and will need rolling walker postoperatively for her knee rehabilitation. She will need a shower chair as she has difficulty in standing for prolonged periods of time. Patient will need bedside commode since she will need help to get to the toilet on most occasions but bedside commode will help her prevent long distance walking to prevent falls following surgery. Patient will need to restart it since she is unable to stand up due to her pelvic girdle weakness from sitting too low. Her daily ADLs are limited due to the weight as well as her degenerative arthritis of both her knee joints with severe deformity and varus angulation with weakness in the hip girdle muscles. She will need a seat on the rollator since she tends to tire out easily and will need to sit to prevent falls. As the knee arthroplasty is meant to reduce her pain it is also meant to enable her to walk for longer distances with time and in the meanwhile during her rehab patient will need all these additional help for her daily rehabilitation and ADLs. Hope this helps clarify her situation thank you Patient has been planned for total knee arthroplasty left side. By using the attestations below, the signing clinician agrees that I have read and verify that the documentation has been personally reviewed by me and ensure that the documentation accurately reflects the encounter. GC: I personally saw this patient on the day of the encounter, performed the humphries portion(s) of the service and participated in the management and confirm the medical student's documentation. Please note there may be an additional personal documentation from me. Dr. Lyssa Park MD MRCSEd Mowing Machine Operator orthopedic surgery Adult Reconstruction and Trauma [facility]. Normal [facility] Labon 10-22-2023 Lab [id number] Apolonia Palma 1975 F Date Provider Department [place] 10/22/2023 2244-[facility] MP LAB RESOURCE MP DRAW Medical Pavi Family History Problem Relation Age of Onset Cancer Mother Family Status - Relation Status Age at Mother Normal [facility] MRSA/MSSA DNA NASALon 2023 MRSA DNA Negative Normal Negative [facility] Comment on above: Order Comment: Testi ng methodology is an automated qualitative in vitro diagnostic test for the directdetection and differentiation of Staphylococcus aureus (SA) DNA and methicillin-resistant Staphylococcus aureus (MRSA) DNA from nasal swabs in patients at risk for nasal colonization. The test utilizes real-time polymerase chain reaction (PCR) for the amplification of MRSA/SA DNA and fluorogenic target-specific hybridization probes for the detection of the amplified DNA. A negative result does not preclude nasal colonization. Performed By: #### L [id number] ####[facility] (BEAKER)[address] [place] [address] MSSA DNA Negative Normal Negative [facility] Comment on above: Order Comment: Testi ng methodology is an automated qualitative in vitro diagnostic test for the directdetection and differentiation of Staphylococcus aureus (SA) DNA and methicillin-resistant Staphylococcus aureus (MRSA) DNA from nasal swabs in patients at risk for nasal colonization. The test utilizes real-time polymerase chain reaction (PCR) for the amplification of MRSA/SA DNA and fluorogenic target-specific hybridization probes for the detection of the amplified DNA. A negative result does not preclude nasal colonization. Performed By: #### L [id number] ####[facility] ([employer])[address] [place] [address] PROTIME-INRon 10-22-2023 INR IN PPP BY COAGULATION ASSAY 1.02 Normal 0.90-1.10 [facility] Comment on above: Result Comment: ACCC P RECOMMENDED INR FOR WARFARIN THERAPY CONDITION INR PROPHYLAXIS OF VENOUS THROMBOSIS 2-3 (HIGH-RISK SURGERY) TREATMENT OF VENOUS THROMBOSIS 2-3 TREATMENT OF PULMONARY EMBOLISM 2-3 PREVENTION OF SYSTEMIC EMBOLISM: 2-3 ACUTE MYOCARDIAL INFARCTION TISSUE HEART VALVES VALVULAR HEART DISEASE ATRIAL FIBRILLATION RECURRENT SYSTEMIC EMBOLISM MECHANICAL HEART VALVE 2.5-3.5 FROM: ORAL ANTICOAGULANTS. MECHANISM OF ACTION, CLINICAL EFFECTIVENESS, AND OPTIMAL THERAPEUTIC RANGE. CHEST 1995;108:231S-246S. Performed By: #### L [id number] #### [facility] (BEAKER) [address] [place] [address] PROTHROMBIN TIME (PT) IN PPP BY COAGULATION ASSAY 13.4 Seconds Normal 12.3-14.8 [facility] Comment on above: Performed By: #### L [id number] #### [facility] (BEAKER) [address] [place] [address] TYPE AND SCREENon 10-22-2023 AB SCREEN Negative Normal [facility] Comment on above: Performed By: #### L [id number] #### [facility] B[facility]OD [facility] , ABO group Nom (Bld) O Normal [facility] Comment on above: Performed By: #### L [id number] #### [facility] , RH TYPE IN BLOOD Positive Normal [facility] Comment on above: Performed By: #### L [id number] #### [facility] , Telephoneon 10-22-2023 Telephone [id number] Apolonia Palma 1975 F Date Provider Department [place] 10/22/2023 80844-ABYCUGSHAHRAM PRICE MP ORTHO MPORTHO Family History Problem Relation Age of Onset Cancer Mother Family Status - Relation Status Age at Mother Normal [facility] URINALYSIS MICROSCOPIC WITH REFLEX CULTUREon 10-22-2023 CASTS IN URINE Normal [facility] Comment on above: Performed By: #### L [id number] #### [facility] (BEAKER) [address] [place] [address] CRYSTALS IN URINE Normal [facility] Comment on above: Performed By: #### L [id number] #### [facility] (BEAKER) [address] [place] [address] MUCUS (#/HPF) IN URINE SEDIMENT Many Abnormal None Seen, Occasional, Few [facility] Comment on above: Performed By: #### L [id number] #### [facility] (BEAKER) [address] [place] [address] OTHER MICROSCOPIC ELEMENTS Normal [facility] Comment on above: Performed By: #### L [id number] #### [facility] (BEAKER) [address] [place] [address] RBC (#/HPF) IN URINE SEDIMENT 0-2 Abnormal None Seen [facility] Comment on above: Performed By: #### L [id number] #### [facility] (BEAKER) [address] [place] [address] SQUAMOUS EPITHELIAL CELLS (#/HPF) IN URINE SEDIMENT Many Abnormal None Seen, Occasional [facility] Comment on above: Performed By: #### L [id number] #### [facility] ([facility]) [address] [place] [address] WBC (LEUKOCYTE) (#/HPF) IN URINE SEDIMENT 0-2 Abnormal None Seen [facility] Comment on above: Performed By: #### L [id number] #### [facility] ([facility]) [address] [place] [address] URINALYSIS WITH REFLEX CULTU REon 10-22-2023 BILIRUBIN, TOTAL PRESENCE IN URINE Negative Normal Negative [facility] Comment on above: Performed By: #### L [id number] ####[facility] ([facility])[address] [place] [address] Clarity (U) Slightly Cloudy Abnormal Clear [facility] Comment on above: Performed By: #### L [id number] ####[facility] ([facility])[address] [place] [address] Color (U) Lynda Abnormal Yellow [facility] Comment on above: Performed By: #### L [id number] ####[facility] ([facility])[address] [place] [address] Glucose (U) [Mass/Vol] Negative Normal [facility] on [facility]: Performed By: #### L [id number] ####[facility] ([facility])[address] [place] [address] HEMOGLOBIN PRESENCE IN URINE Negative Normal Negative [facility] Comment on above: Performed By: #### L [id number] ####[facility] ([facility])[address] [place] [address] Ketones Ql (U) Trace Abnormal Negative [facility] Comment on above: Performed By: #### L [id number] ####[facility] ([facility])[address] [place] [address] LEUKOCYTE ESTERASE PRESENCE IN URINE BY TEST STRIP Trace Abnormal Negative [facility] Comment on above: Performed By: #### L [id number] ####[facility] ([facility])[address] [place] [address] NITRITE PRESENCE IN URINE Negative Normal Negative [facility] Comment on above: Performed By: #### L [id number] ####[facility] ([facility])[address] [place] [address] pH (U) 6.0 [pH] Normal 5.0-8.0 [facility] Comment on above: Performed By: #### L [id number] ####[facility] ([facility])[address] [place] [address] Protein (U) [Mass/Vol] 30 mg/dL Abnormal Negative [facility] Comment on above: Performed By: #### L [id number] ####[facility] ([facility])[address] [place] [address] Specific gravity (U) [Rel density] 1.021 High 1.015-1.020 [facility] Comment on above: Performed By: #### L [id number] ####[facility] ([facility])[address] [place] [address] UROBILINOGEN (EU/DL) IN URINE 2.0 EU/dL Abnormal Negative [facility] Comment on above: Performed By: #### L [id number] ####[facility] ([facility])[address] [place] [address] URINE CULTURE, ROUTINEon Bacteria identified Cx Nom (U) <10,000 CFU/ML No Significant Growth Normal [facility] Comment on above: Performed By: #### L [id number] #### [facility] ([facility]) [address] [place] [address] Telephoneon 10-15-2023 Telephone [phone] Apolonia Palma 1975 F Date Provider Department [place] 10/15/2023 [facility] Family history unknown: Yes Normal [facility] 36on 10-11-2023 36 Sent to [facility] Abstracton 10-11-2023 Abstract [id number] Apolonia Palma er L 1975 Provider Department [place] 10/11/2023 LYSSA MATSON MP [facility] Family History Family history unknown: Yes [facility] 36on 10-09-2023 36 Sent to [facility] Prep for Procedureon 024 Prep for Procedure [id number] Apolonia Palma er L 1975 F Date Provider Department [place] 10/09/2023 ADRIANNA LEE MP [facility] Family History Family history unknown: Yes [facility] on 10-08-2023 36 Patient states her p cp sent the clearance she would like to be notified with updates regarding scheduling of surgery [facility] on 10-02-2023 36 Patient wants to kno w if her clearance came through yet? It would be from dr phelan. I dont see anything in her chart yet. Patient was advised. [facility] 36 Spoke with patient just waiting on pcp clearance. Called pcp office they stated that they will fax something over. [facility] on 09-28-2023 36 Patient states surge ry clearance is complete she wants a call back with next steps for surgery [facility] Telephoneon 09-28-2023 Telephone [id number] Apolonia Palma er L 1975 Provider Department [place] 09/28/2023 836BARRIE CHAIREZ MP ORTHO [facility] Family History Family history unknown: Yes [facility] CBC AND AUTO DIFFon 08-17-19 24 Eosinophils (Bld) [#/Vol] 0.0 10*3/uL Normal 0.0-0.4 [facility] Comment on above: Performed By: #### C BCA, 84150-2, C34, 92121-1, CMP, 1988-5, ENAP, 73156-2, 48835-5, 86595-0, 5130-0, 03933-5 #### [facility] ([id number]) [address], [address] [place] [address] #### 84922-7, NAIFA #### [facility] ([id number]) [address] [place] [address] Eosinophils/100 WBC (Bld) 1.0 % Normal [facility] Comment on above: Performed By: #### C BCA, 03538-0, C34, 13354-7, CMP, 1987-5, ENAP, 27273-0, 11280-9, 38728-6, 5130-0, 84466-4 #### [facility] ([id number]) [address], [address] [place] [id number] #### 16434-1, NAIFA #### [facility] ([id number]) [address] [place] [address] Erythrocyte distribution width (RBC) [Ratio] 14.8 % Normal 11.5-15.0 [facility] Comment on above: Performed By: #### C BCA, 47546-7, C34, 33148-1, CMP, 1987-5, ENAP, 18797-2, 83220-7, 11636-9, 5130-0, 79416-2 #### [facility] ([id number]) [address], [address] [place] [address] #### 29648-6, NAIFA #### [facility] ([id number]) [address] [place] [address] Hematocrit (Bld) [Volume fraction] 37.2 % Normal 35-47 [facility] Comment on above: Performed By: #### C BCA, 91419-8, C34, 52862-0, CMP, 1988-5, ENAP, 91850-9, 64385-9, 73999-8, 5130-0, 47706-1 #### [facility] ([id number]) [address], [address] [place] [address] #### 34164-3, NAIFA #### [facility] ([id number]) [address] [place] [address] Hemoglobin (Bld) [Mass/Vol] 12.5 g/dL Normal 11.7-15.5 [facility] Comment on above: Performed By: #### C BCA, 70692-7, C34, 74181-3, CMP, 1988-5, ENAP, 04790-4, 13216-2, 59960-6, 5130-0, 81534-6 #### [facility] ([id number]) [address], [address] [place] [address] #### 77781-3, NAIFA #### [facility] ([id number]) [address] [place] [address] Lymphocytes (Bld) [#/Vol] 1.3 10*3/uL Normal 1.0-3.5 [facility] Comment on above: Performed By: #### C BCA, 12071-6, C34, 21151-2, CMP, 1987-5, ENAP, 83812-0, 65041-0, 02723-3, 5130-0, 32015-8 #### [facility] ([id number]) [address], [address] [place] [address] #### 65156-6, NAIFA #### [facility] ([id number]) [address] [place] [address] Lymphocytes/100 WBC (Bld) 42.0 % Normal [facility] Comment on above: Performed By: #### C BCA, 50369-7, C34, 72560-8, CMP, 1988-5, ENAP, 33394-4, 87379-4, 15181-2, 5130-0, 43209-2 #### [facility] ([id number]) [address], [address] [place] [id number] #### 15937-9, NAIFA #### [facility] ([id number]) [address] [place] [address] MCH (RBC) [Entitic mass] 31.5 pg Normal 27-34 [facility] Comment on above: Performed By: #### C BCA, 94835-5, C34, 91473-8, CMP, 1988-5, ENAP, 11655-0, 54298-0, 75806-9, 5130-0, 23293-1 #### [facility] ([id number]) [address], [address] [place] [address] #### 44392-5, NAIFA #### [facility] ([id number]) [address] [place] [address] MCHC (RBC) [Mass/Vol] 33.6 g/dL Normal 32-36 [facility] Comment on above: Performed By: #### C BCA, 18207-3, C34, 66027-6, CMP, 1988-5, ENAP, 60576-2, 11457-8, 06397-4, 5130-0, 84039-2 #### [facility] ([id number]) [address], [address] [place] [id number] #### 93987-8, NAIFA #### [facility] ([id number]) [address] [place] [address] MCV (RBC) [Entitic vol] 94 fL Normal 80-100 [facility] Comment on above: Performed By: #### C BCA, 36496-2, C34, 48121-9, CMP, 1988-5, ENAP, 09180-5, 15095-8, 21637-2, 5130-0, 69513-1 #### [facility] ([id number]) [address], [address] [place] [address] #### 87684-6, NAIFA #### [facility] ([id number]) [address] [place] [address]78 Monocytes (Bld) [#/Vol] 0.2 10*3/uL Normal 0-0.9 [facility] Comment on above: Performed By: #### C BCA, 22353-2, C34, 71478-0, CMP, 1987-5, ENAP, 45183-0, 64232-9, 43009-1, 5130-0, 83469-3 #### [facility] ([id number]) [address], [address] [place] [id number] #### 95669-8, NAIFA #### [facility] ([id number]) [address] [place] [address] Monocytes/100 WBC (Bld) 7.0 % Normal [facility] Comment on above: Performed By: #### C BCA, 30860-2, C34, 14732-7, CMP, 1987-5, ENAP, 76140-2, 21332-1, 56639-0, 5130-0, 20003-1 #### [facility] ([id number]) [address], [address] [place] [address] #### 54453-4, NAIFA #### [facility] ([id number]) [address] [place] [address] Neutrophils (Bld) [#/Vol] 1.6 10*3/uL Normal 1.5-6.6 [facility] Comment on above: Performed By: #### C BCA, 54633-8, C34, 89954-5, CMP, 1987-5, ENAP, 24503-0, 81440-8, 86742-5, 5130-0, 83085-4 #### [facility] ([id number]) [address], [address] [place] [address] #### 91359-0, NAIFA #### [facility] ([id number]) [address] [place] [address]1891 OVALOCYTE 1+ Abnormal NONE [facility] Comment on above: Performed By: #### C BCA, 83469-6, C34, 33992-2, CMP, 1987-5, ENAP, 21697-9, 62539-6, 63943-0, 5130-0, 92827-4 #### [facility] ([id number]) [address], [address] [place], [place] [address] #### 58030-2, NAIFA #### [facility] ([id number]) [address] [place] [address] 88658 Platelet mean volume (Bld) [Entitic vol] 7.2 fL Normal 7-12 [facility] Comment on above: Performed By: #### C BCA, 48638-4, C34, 12229-2, CMP, 1987-5, ENAP, 00550-1, 40058-2, 43503-0, 5130-0, 42001-7 #### [facility] ([id number]) [address], [address] [place] [address] #### 14094-0, NAIFA #### [facility] ([id number]) [address] [place] [address] 19245 Platelets (Bld) [#/Vol] 363 10*3/uL Normal 150-450 [facility] Comment on above: Performed By: #### C BCA, 52303-1, C34, 26376-1, CMP, 1988-5, ENAP, 59461-5, 72969-1, 52101-8, 5130-0, 48769-5 #### [facility] ([id number]) [address], [address] [place] [address] #### 14895-4, NAIFA #### [facility] ([id number]) [address] [place] [address] 48114 RBC COUNT 3.96 X10E12/L Normal 3.80-5.20 [facility] Comment on above: Performed By: #### C BCA, 95447-7, C34, 16023-7, CMP, 1988-5, ENAP, 82246-6, 34390-7, 28833-2, 5130-0, 66626-1 #### [facility] ([id number]) [address], [address] [place] [address] #### 78520-4, NAIFA #### [facility] ([id number]) [address] [place] [address]77 SEG NEUTROPHIL 50.0 % Normal [facility] Comment on above: Performed By: #### C BCA, 03265-9, C34, 76043-5, CMP, 1987-5, ENAP, 79442-6, 49260-3, 28825-7, 5130-0, 58025-6 #### [facility] ([id number]) [address], [address] [place] [address] #### 25567-9, NAIFA #### [facility] ([id number]) [address] [place] [address]78 WBC (Bld) [#/Vol] 3.1 10*3/uL Low 4.0-11.0 [facility] Comment on above: Performed By: #### C BCA, 82283-7, C34, 67559-0, CMP, 1988-5, ENAP, 47071-8, 48151-5, 78547-8, 5130-0, 01839-8 #### [facility] ([id number]) [address] [place] [address] #### 40695-3, NAIFA #### [facility] ([id number]) [address] [place] [address] 13544 COMPREHENSIVE METABOLIC PANE Caleb 08-17-2023 Albumin [Mass/Vol] 4.0 g/dL Normal 3.2-5.3 [facility] Comment on above: Performed By: #### C BCA, 55228-6, C34, 38970-2, CMP, 1988-5, ENAP, 67944-8, 92757-1, 98678-0, 5130-0, 90199-4 #### [facility] ([id number]) [address] [place] [address] #### 30301-0, NAIFA #### [facility] ([id number]) [address] [place] [address] 91180 ALP [Catalytic activity/Vol] 130 U/L Normal 39-130 [facility] Comment on above: Performed By: #### C BCA, 33511-5, C34, 76646-1, CMP, 1988-5, ENAP, 53304-2, 98028-6, 41670-6, 5130-0, 60556-6 #### [facility] ([id number]) [address] [place] [address] #### 74246-1, NAIFA #### [facility] ([id number]) [address] [place] [address] 48927 ALT [Catalytic activity/Vol] 16 U/L Normal 0-31 [facility] Comment on above: Performed By: #### C BCA, 49245-3, C34, 25128-9, CMP, 1988-5, ENAP, 83262-0, 12384-6, 48823-5, 5130-0, 90528-7 #### [facility] ([id number]) [address], [address] [place] [address] #### 18935-6, NAIFA #### [facility] ([id number]) [address] [place] [address] 90776 Anion gap [Moles/Vol] 7 mmol/L Normal 5-15 [facility] Comment on above: Performed By: #### C BCA, 54058-8, C34, 81832-4, CMP, 1987-5, ENAP, 34271-4, 47083-8, 73829-9, 5130-0, 36582-0 #### [facility] ([id number]) [address], [address] [place] [address] #### 85587-3, NAIFA #### [facility] ([id number]) [address] [place] [address] 28701 AST [Catalytic activity/Vol] 20 U/L Normal 0-41 [facility] Comment on above: Performed By: #### C BCA, 91192-2, C34, 95116-0, CMP, 1987-5, ENAP, 99459-9, 24795-1, 99464-4, 5130-0, 93623-1 #### [facility] ([id number]) [address], [address] [place] [address] #### 52494-3, NAIFA #### [facility] ([id number]) [address] [place] [address] 22260 Bilirubin [Mass/Vol] 0.5 mg/dL Normal 0.3-1.2 [facility] Comment on above: Performed By: #### C BCA, 24947-0, C34, 81813-6, CMP, 1988-5, ENAP, 16237-8, 29284-3, 18862-4, 5130-0, 66390-2 #### [facility] ([id number]) [address], [address] [place] [address] #### 04947-0, NAIFA #### [facility] ([id number]) [address] [place] [address] 88292 Calcium [Mass/Vol] 8.8 mg/dL Normal 8.5-10.5 [facility] Comment on above: Performed By: #### C BCA, 50244-1, C34, 59963-5, CMP, 1987-5, ENAP, 85230-1, 47560-0, 37680-9, 5130-0, 52149-5 #### [facility] ([id number]) [address], [address] [place] [address] #### 91520-6, NAIFA #### [facility] ([id number]) [address] [place] [address] 41387 Chloride [Moles/Vol] 104 mmol/L Normal 98-109 [facility] Comment on above: Performed By: #### C BCA, 14682-3, C34, 09811-1, CMP, 1987-5, ENAP, 10070-3, 37588-1, 21569-3, 5130-0, 46070-1 #### [facility] ([id number]) [address], [address] [place] [address] #### 88713-6, NAIFA #### [facility] ([id number]) 63 [place] [address]37 CO2 [Moles/Vol] 29 mmol/L Normal 22-32 [facility] Comment on above: Performed By: #### C BCA, 17687-9, C34, 15588-5, CMP, 1988-5, ENAP, 55339-9, 69171-3, 34441-7, 5130-0, 44966-4 #### [facility] ([id number]) [address], [address] [place] [address] #### 14171-9, NAIFA #### [facility] ([id number]) [address] [place] [address] 19005 Creatinine [Mass/Vol] 0.68 mg/dL Normal 0.40-1.00 [facility] Comment on above: Result Comment: METH OD TRACEABLE TO IDMS STANDARD Performed By: #### C BCA, 06502-1, C34, 67940-6, CMP, 1988-5, ENAP, 90831-5, 31534-9, 69551-0, 5130-0, 47908-2 #### [facility] ([id number]) [address] [facility] [address] [facility] [address], [address] [place] [address] #### 25896-5, NAIFA #### [facility] ([id number]) [address] [place] [address] 75910 eGFR (CKD-EPI) NON-RACE DEPENDENT >90 Normal >59 [facility] Comment on above: Result Comment: Reported eGFR is based on the CKD-EPI 2020 equation that does not use a race coefficient. Performed By: #### C BCA, 04764-1, C34, 72479-5, CMP, 1988-5, ENAP, 29562-7, 16801-9, 20960-4, 5130-0, 71176-6 #### [facility] ([id number]) [address] [address], [address] [place] [address] #### 11376-4, NAIFA #### [facility] ([id number]) [address] [place] [address] 05563 Glucose [Mass/Vol] 119 mg/dL High 65-99 [facility] Comment on above: Performed By: #### C BCA, 54774-1, C34, 15917-3, CMP, 1987-5, ENAP, 91352-1, 32357-8, 40909-2, 5130-0, 30193-8 #### [facility] ([id number]) [address], [address] [place] [address] #### 08792-1, NAIFA #### [facility] ([id number]) [address] [place] [address] 85860 Potassium [Moles/Vol] 3.7 mmol/L Normal 3.5-5.0 [facility] Comment on above: Performed By: #### C BCA, 02642-1, C34, 31758-9, CMP, 1988-5, ENAP, 94995-8, 32361-4, 58324-9, 5130-0, 76247-9 #### [facility] ([id number]) [address], [address] [place] [address] #### 84630-1, NAIFA #### [facility] ([id number]) [address] [place] [address] 48186 Protein [Mass/Vol] 7.5 g/dL Normal 6.0-8.0 [facility] Comment on above: Performed By: #### C BCA, 20869-8, C34, 44560-3, CMP, 1987-5, ENAP, 27075-3, 64783-9, 62608-5, 5130-0, 78947-0 #### [facility] ([id number]) [address], [address] [place] [address] #### 01357-9, NAIFA #### [facility] ([id number]) [address] [place] [address] 84027 Sodium [Moles/Vol] 140 mmol/L Normal 134-146 [facility] Comment on above: Performed By: #### C BCA, 30582-8, C34, 08244-1, CMP, 1988-5, ENAP, 27772-8, 81526-1, 83451-7, 5130-0, 12746-2 #### [facility] ([id number]) [address] [place] [address], [facility] [address] [place] [address] #### 84356-2, NAIFA #### [facility] ([id number]) [address] [place] [address] 83875 Urea nitrogen [Mass/Vol] 7 mg/dL Normal 5-23 [facility] Comment on above: Performed By: #### C BCA, 30149-4, C34, 96449-2, CMP, 1988-5, ENAP, 90381-1, 45407-4, 12550-1, 5130-0, 67422-8 #### [facility] ([id number]) [address] [place] [address], [address] [address] #### 02829-4, NAIFA #### [facility] ([id number]) [address] [place] [address] 76752 URINE CULTUREon 08-16-2023 Bacteria identified Cx Nom (U) SPECIMEN NOTES URINE RECEIVED WITHOUT PRESERVATIVE CULTURE RESULTS 10-50,000 ORGANISMS/mL NORMAL UROGENITAL SOWMYA Normal [facility] Comment on above: Performed By: #### 6 30-4 #### [facility] ([id number]) [address] [place] [address], [address] [address] VAGINITIS PANEL PCRon 2023 VAGINITIS PANEL PCR BACT. VAGINOSIS DNA Not detected (qualifier value) Qualitative results are reported based on detection and quantitation of targeted organism markers which include: Lactobacillus spp. (L. crispatus and L. jensenii), Gardnerella vaginalis, Atopobium vaginae, Bacterial Vaginosis Associated Bacteria-2 (BVAB-2) and Megasphaera-1 DAVIDA SPECIES DNA Not detected (qualifier value) Davida species not detected include: C. albicans, C. tropicalis, C. parapsilosis or C. dubliniensis DAVIDA KRUSEI DNA Not detected (qualifier value) No Davida krusei detected DAVIDA GLABRATA DNA Detected (qualifier value) Davida glabrata detected Literature studies show between 8-20% Fluconazole resistance for Davida glabrata TRICHOMONAS VAG DNA Not detected (qualifier value) No Trichomonas vaginalis detected NOTE BD MAX Vaginal Panel has not been evaluated for patients under 18 years old. Results for these patients should be reviewed and assessed in accordance with clinical presentation to determine patient diagnosis. Normal [facility] Comment on above: Performed By: #### V PPCR #### [facility] ([id number]) [address] [address], [address] [place] [address] XR KNEE LT MIN 4 VWSon 08-01 XR KNEE LT MIN 4 VWS XR KNEE LT MIN 4 VW S CLINICAL INFORMATION: Primary osteoarthritis of left knee TECHNIQUE: XR KNEE LT MIN 4 VWS 4 views of the left knee were obtained. Osteophytic changes are present most significant medially where there is zvhj-tz-czvr appearance. No joint effusion appreciated. No evidence of fracture. IMPRESSION: Medial predominant osteoarthritis Finalized by Mark Casanova MD on 08/02/2023 9:12 PM Normal [facility] Follow-Upon 07-23-2023 Follow-Up [id number] Apolonia Palma 1975 F Date Provider Department Center 07/23/2023 LYSSA MASTON MP ORTHO MPORTHO Family History Family history unknown: Yes Level of Service:25792 AL OFFICE/OUTPATIENT ESTABLISHED HIGH MDM 40 MIN (GC,57) Reason for Visit and Comments: Follow-up [937564] Pain [136] Follow-up [010579] Pain [136] Normal [facility] HGB A1C (GLYCO-HGB)on 2023 Glucose [Mass/Vol] 131 mg/dL Normal [facility] Comment on above: Performed By: #### C BCA, 61111-9, C34, 46348-4, CMP, 1988-5, ENAP, 43936-6, 01837-6, 19328-1, 5130-0, 88967-9 #### [facility] ([id number]) [address] [facility], [address] [place] [address] #### 19340-4, NAIFA #### [facility] ([id number]) [address] [place] [address] 23238 HbA1c (Bld) [Mass fraction] 6.2 % High 4.4-5.6 [facility] Comment on above: Result Comment: NOTE ADA Guidelines Result HgbA1c Normal : less than 5.7 % Prediabetes : 5.7 % to 6.4 % Diabetes : > 6.4 % Use with caution in patients with abnormal hemoglobin variants as the half-life of red blood cells and in vivo glycation rates are affected. Performed By: #### C BCA, 94510-5, C34, 44916-5, CMP, 1987-5, ENAP, 68268-9, 63569-9, 10821-0, 5130-0, 50509-8 #### [facility] ([id number]) [address] [place] [address], [address] [place] [address] #### 11587-7, NAIFA #### [facility] ([id number]) [address] [place] [address] 12723 QUANTIFERON TB GOLDon 2023 MITOGEN MINUS NIL 0.19 IU/mL Low >=0.50 [facility] Comment on above: Performed By: #### C BCA, 13260-6, C34, 33639-1, CMP, 1987-5, ENAP, 49409-1, 30901-0, 11746-1, 5130-0, 81050-2 #### [facility] ([id number]) [address] [facility] [address], [address] [place] [address] #### 73191-0, NAIFA #### [facility] ([id number]) [address] [place] [address] 29720 NIL RESULT 0.05 IU/mL Normal <=8.00 [facility] Comment on above: Performed By: #### C BCA, 28343-2, C34, 79207-2, CMP, 1987-5, ENAP, 50626-0, 49762-6, 72876-1, 5130-0, 29882-3 #### [facility] ([id number]) [address] [address] [address], [address] [place] [address] #### 46918-4, NAIFA #### [facility] ([id number]) [address] [place] [address] 70519 TB INTERPRETATION See below Normal [facility] Comment on above: Result Comment: NOTE This result is indeterminate for Mycobacterium tuberculosis complex antigen responsiveness. Specimens from immunocompromised patients, those <5 years of age, and those with a known recent exposure may fall under this category. Please correlate with clinical picture and other alternative assessments. Test Performed By: [place] [address] Instrumentation Engineering Technician: Matthew Joaquin III #[id number] Performed By: #### C BCA, 86191-7, C34, 80266-8, CMP, 1987-5, ENAP, 10117-8, 17649-2, 49432-4, 5130-0, 99936-0 #### [facility] ([id number]) [address] [facility], [address] [place] [address] #### 79907-8, NAIFA #### [facility] ([id number]) [address] [place] [address] 51952 TB RESULT Indeterminate Normal [facility] Comment on above: Performed By: #### C BCA, 07931-1, C34, 59219-2, CMP, 1987-5, ENAP, 33028-4, 91094-7, 04738-0, 5130-0, 42291-1 #### [facility] ([id number]) [address] [address] [facility], [address] [place] [address] #### 52054-7, NAIFA #### [facility] ([id number]) [address] [place] [address] 33811 TB1 AG MINUS NIL 0.00 IU/mL Normal <0.35 [facility] Comment on above: Performed By: #### C BCA, 59323-9, C34, 11394-2, CMP, 1987-5, ENAP, 74081-5, 98944-5, 09494-0, 5130-0, 15971-8 #### [facility] ([id number]) [address] [facility], [address] [place] [address] #### 42686-9, NAIFA #### [facility] ([id number]) [address] [place] [address] 07747 TB2 AG MINUS NIL <0.00 Normal <0.35 [facility] Comment on above: Performed By: #### C BCA, 54683-7, C34, 44074-4, CMP, 1987-5, ENAP, 95852-0, 23683-1, 82790-2, 5130-0, 51884-6 #### [facility] ([id number]) [address], [address] [place], [place] [address] #### 94256-2, NAIFA #### [facility] ([id number]) [address] [place] [address] 57196 URINALYSISon 07-12-2023 Bilirubin Ql (U) Negative Normal NEG [facility] Comment on above: Performed By: #### C BCA, 44461-3, C34, 59260-3, CMP, 1987-5, ENAP, 72165-7, 71049-7, 88454-0, 5130-0, 86207-2 #### [facility] ([id number]) [address] [address], [address] [place] [address] #### 17003-7, NAIFA #### [facility] ([id number]) [address] [place] [address] 50313 BLOOD/HGB Negative Normal NEG [facility] Comment on above: Performed By: #### C BCA, 19278-1, C34, 37387-9, CMP, 1988-5, ENAP, 98786-4, 32644-2, 50360-7, 5130-0, 86711-5 #### [facility] ([id number]) [address], [address] [place] [address] #### 25483-9, NAIFA #### [facility] ([id number]) [address] [place] [address] 26223 CA OXALATE CRYSTALS PRESENT Abnormal NONE [facility] Comment on above: Performed By: #### C BCA, 68115-5, C34, 33536-0, CMP, 1987-5, ENAP, 69785-7, 50582-4, 75161-2, 5130-0, 50005-2 #### [facility] ([id number]) [address], [address] [place] [address] #### 58177-6, NAIFA #### [facility] ([id number]) [address] [place] [address] 15075 Color (U) YELLOW Normal YELLOW [facility] Comment on above: Performed By: #### C BCA, 12900-1, C34, 69292-8, CMP, 1987-5, ENAP, 15405-5, 38499-3, 23101-7, 5130-0, 02535-8 #### [facility] ([id number]) [address], [address] [place] [address] #### 51191-5, NAIFA #### [facility] ([id number]) [address] [place] [address] Glucose Ql (U) Negative Normal NEG [facility] Comment on above: Performed By: #### C BCA, 39948-8, C34, 86136-7, CMP, 1987-5, ENAP, 30248-6, 70704-9, 43905-5, 5130-0, 71625-1 #### [facility] ([id number]) [address], [address] [place] [id number] #### 97578-1, NAIFA #### [facility] ([id number]) [address] [place] [address] 36021 Hyaline casts LM Ql (Urine sed) 3 /lpf High 0-2 [facility] Comment on above: Performed By: #### C MAHIN, 56450-7, C34, 18631-5, CMP, 1987-07, ENAP, 29701-4, 97225-2, 51491-4, 5130-0, 03551-1 #### [facility] ([id number]) [address], [address] [place] [address] #### 46678-4, NAIFA #### [facility] ([id number]) [address] [place] [address] 64642 Ketones Ql (U) Negative Normal NEG [facility] Comment on above: Performed By: #### C BCA, 12924-5, C34, 94444-2, CMP, 1987-07, ENAP, 40738-8, 93727-9, 28073-6, 5130-0, 27050-6 #### [facility] ([id number]) [address], [address] [place] [address] #### 58501-7, NAIFA #### [facility] ([id number]) [address] [place] [address] 85720 Leukocyte esterase Test strip Ql (U) Negative Normal NEG [facility] Comment on above: Performed By: #### C BCA, 16882-6, C34, 97579-1, CMP, 1987-5, ENAP, 90642-5, 76132-9, 45194-6, 5130-0, 58110-6 #### [facility] ([id number]) [address], [address] [place] [address] #### 46782-9, NAIFA #### [facility] ([id number]) [address] [place] [address] 06264 MUCOUS PRESENT Abnormal NONE [facility] Comment on above: Performed By: #### C BCA, 75160-3, C34, 54095-8, CMP, 1987-5, ENAP, 61501-4, 37604-6, 78346-3, 5130-0, 35410-8 #### [facility] ([id number]) [address], [address] [place] [address] #### 95250-3, NAIFA #### [facility] ([id number]) [address] [place] [address] 94598 Nitrite Ql (U) Negative Normal NEG [facility] Comment on above: Performed By: #### C BCA, 36475-1, C34, 44444-9, CMP, 1987-5, ENAP, 25622-2, 01221-8, 32754-6, 5130-0, 14111-4 #### [facility] ([id number]) [address], [address] [place] [address] #### 26559-5, NAIFA #### [facility] ([id number]) [address] [place] [address] 29907 pH (U) 6.5 [pH] Normal 5.0-8.5 [facility] Comment on above: Performed By: #### C BCA, 21621-9, C34, 73024-6, CMP, 1987-5, ENAP, 55972-9, 77078-9, 88203-1, 5130-0, 98949-8 #### [facility] ([id number]) [address] [facility], [address] [place] [address] #### 04036-7, NAIFA #### [facility] ([id number]) [address] [place] [address] 73681 Protein Ql (U) Trace Abnormal NEG [facility] Comment on above: Performed By: #### C BCA, 45913-0, C34, 35164-4, CMP, 1987-5, ENAP, 90737-4, 06543-3, 78708-0, 5130-0, 28989-0 #### [facility] ([id number]) [address] [facility], [address] [place] [address] #### 82447-6, NAIFA #### [facility] ([id number]) [address] [place] [address] 27863 R.B.CELLS 3 /hpf Normal 0-5 [facility] Comment on above: Performed By: #### C BCA, 73944-5, C34, 68886-1, CMP, 1987-5, ENAP, 69334-5, 70680-3, 40980-1, 5130-0, 14271-9 #### [facility] ([id number]) [address] [facility], [address] [place] [address] #### 35345-2, NAIFA #### [facility] ([id number]) [address] [place] [address] 33014 Specific gravity (U) [Rel density] 1.022 Normal 1.003-1.035 [facility] Comment on above: Performed By: #### C BCA, 49155-5, C34, 48522-7, CMP, 1987-5, ENAP, 19193-0, 32322-8, 11440-0, 5130-0, 76479-2 #### [facility] ([id number]) [address], [address] [place] [address] #### 77987-3, NAIFA #### [facility] ([id number]) [address] [place] [address] 47245 SQUAMOUS EPITHELIUM <1 Normal 0-5 [facility] Comment on above: Performed By: #### C BCA, 18186-7, C34, 87381-3, CMP, 1987-, ENAP, 72566-9, 42235-3, 73622-6, 5130-0, 26318-6 #### [facility] ([id number]) [address], [address] [place] [address] #### 29818-5, NAIFA #### [facility] ([id number]) [address] [place] [address] 02429 TURBIDITY HAZY Abnormal CLEAR [facility] Comment on above: Performed By: #### C BCA, 62537-8, C34, 83331-3, CMP, 1987-07, ENAP, 42941-3, 19857-3, 90561-1, 5130-0, 77957-2 #### [facility] ([id number]) [address], [address] [place] [address] #### 16058-4, NAIFA #### [facility] ([id number]) [address] [place] [address] 08129 Urobilinogen (U) [Mass/Vol] mg/dL Normal <1.1 [facility] Comment on above: Performed By: #### C BCA, 63187-2, C34, 70611-6, CMP, 1987-5, ENAP, 25279-8, 86751-1, 40240-0, 5130-0, 40441-7 #### [facility] ([id number]) [address], [address] [place] [address] #### 59762-7, NAIFA #### [facility] ([id number]) [address] [place] [address] 20282 W.B.CELLS 4 /hpf Normal 0-5 [facility] Comment on above: Performed By: #### C BCA, 61835-9, C34, 67853-4, CMP, 1987-5, ENAP, 35694-5, 24369-3, 43568-8, 5130-0, 78086-6 #### [facility] ([id number]) [address] [facility], [address] [place] [address] #### 90542-9, NAIFA #### [facility] ([id number]) [address] [place] [address] 39813 URINE CULTUREon 07-12-2023 Bacteria identified Cx Nom (U) CULTURE RESULTS <10,000 ORGANISMS/ML NORMAL URO GENITAL SOWMYA Normal [facility] Comment on above: Performed By: #### C BCA, 62660-1, C34, 22038-4, CMP, 1987-5, ENAP, 64562-3, 71097-7, 64618-8, 5130-0, 09912-9 #### [facility] ([id number]) [address], [address] [place] [address] #### 97856-7, NAIFA #### [facility] ([id number]) [address] [place] [address] 73744 36on 07-04-2023 36 Appt moved to 07/22 [facility] 36 Patient requesting call back to schedule sooner appointment for left knee Normal [facility] HGB A1C (GLYCO-HGB)on 2023 Glucose [Mass/Vol] 126 mg/dL Normal [facility] HbA1c (Bld) [Mass fraction] 6.0 % High 4.4-5.6 [facility] Comment on above: Result Comment: NOTE ADA [...] Braun MD on 05/02/2023 5:03 PM Normal [facility] URINALYSISon 04-30-2023 Bilirubin Ql (U) Negative Normal NEG [facility] BLOOD/HGB Negative Normal NEG [facility] CA OXALATE CRYSTALS PRESENT Abnormal NONE [facility] Color (U) YELLOW Normal YELLOW [facility] Glucose Ql (U) Negative Normal NEG [facility] Ketones Ql (U) Negative Normal NEG [facility] Leukocyte esterase Test strip Ql (U) Small Abnormal NEG [facility] MUCOUS PRESENT Abnormal NONE [facility] Nitrite Ql (U) Negative Normal NEG [facility] pH (U) 6.5 [pH] Normal 5.0-8.5 [facility] Protein Ql (U) 50 mg/dL Abnormal NEG [facility] R.B.CELLS 5 /hpf Normal 0-5 [facility] Specific gravity (U) [Rel density] 1.023 Normal 1.003-1.035 [facility] SQUAMOUS EPITHELIUM 2 /hpf Normal 0-5 [facility] TURBIDITY CLOUDY Abnormal CLEAR [facility] Urobilinogen Qn (U) 3 {Aman'U}/dL High <1.1 [facility] W.B.CELLS 0 /hpf Normal 0-5 [facility] URINE CULTUREon 04-30-2023 Bacteria identified Cx Nom (U) CULTURE RESULTS <10,000 ORGANISMS/ML NORMAL URO GENITAL SOWMYA Normal [facility] Comment on above: Performed By: #### C BCA, 83563-1, C34, 26558-8, CMP, 1988-5, ENAP, 25384-2, 35875-6, 26205-4, 5130-0, 59055-2 #### [facility] ([id number]) [address] [facility] [facility], [address] [place] [address] #### 32588-4, NAIFA #### [facility] ([id number]) [address] [facility] [place] [address] Bacteria identified Cx Nom ( U)on 04-07-2023 Service comment (Unsp spec) [Interp] 10-50,000 ORGANISMS/mL NORMAL UROGENITAL SOWMYA [facility] URINALYSISon 04-06-2023 Bilirubin Ql (U) Negative Normal NEG [facility] BLOOD/HGB Negative Normal NEG [facility] Color (U) YELLOW Normal YELLOW [facility] Glucose Ql (U) Negative Normal NEG [facility] Hyaline casts LM Ql (Urine sed) 5 /lpf High 0-2 [facility] Ketones Ql (U) Negative Normal NEG [facility] Leukocyte esterase Test strip Ql (U) Negative Normal NEG [facility] MUCOUS PRESENT Abnormal NONE [facility] Nitrite Ql (U) Negative Normal NEG [facility] pH (U) 6.5 [pH] Normal 5.0-8.5 [facility] Protein Ql (U) 30 mg/dL Abnormal NEG [facility] R.B.CELLS 1 /hpf Normal 0-5 [facility] Specific gravity (U) [Rel density] 1.020 Normal 1.003-1.035 [facility] SQUAMOUS EPITHELIUM 3 /hpf Normal 0-5 [facility] TURBIDITY CLEAR Normal CLEAR [facility] Urobilinogen (U) [Mass/Vol] mg/dL Normal <1.1 [facility] W.B.CELLS 2 /hpf Normal 0-5 [facility] URINE CULTUREon 04-06-2023 Bacteria identified Cx Nom (U) CULTURE RESULTS 10-50,000 ORGANISMS/mL NORMAL UROGENITAL SOWMYA Normal [facility] Comment on above: Performed By: #### C BCA, 28471-3, C34, 76497-7, CMP, 1988-5, ENAP, 66443-5, 02745-2, 95211-2, 5130-0, 26369-6 #### [facility] ([id number]) [address], [address] [place] [address] #### 66406-8, NAIFA #### [facility] ([id number]) [address] [place] [address] Urinalysis (clean catch)on 0 04-06-2023 Bilirubin Ql (U) Negative Negative^Ne g ative [facility] Color (U) YELLOW YELLOW^YELLO [facility] Epithelial cells Auto (Urine sed) [#/Area] 3 [facility] Glucose (U) [Mass/Vol] Negative Negat justice^Neg ative mg/dL [facility] Hemoglobin Auto test strip Ql (U) Negative Negative^Neg ative [facility] - [facility] Hyaline casts (Urine sed) [#/Area] 5 /[LPF] High [facility] Interpretation and review of laboratory results Abnormal [facility] Ketones (U) [Mass/Vol] Negative Negat justice^Neg ative mg/dL [facility] Leukocyte esterase Auto test strip Ql (U) Negative Negative^Neg ative [facility] Mucus Ql (Urine sed) PRESENT Abnormal NONE^NONE [facility] Nitrite Auto test strip Ql (U) Negative Negative^Neg ative [facility] pH (U) 6.5 [pH] 5.0 - 8.5 [facility] Protein (U) [Mass/Vol] 30 mg/dL Abnormal Negat justice^Neg ative [facility] RBC Auto (Urine sed) [#/Area] 1 [facility] Specific gravity Refractometry automated (U) [Rel density] 1.020 1.003 - 1.035 [facility] Turbidity Ql (U) CLEAR CLEAR^CLEAR [facility] Urobilinogen Qn (U) NINF [facility] WBC Auto (Urine sed) [#/Area] 2 [facility] XR CHEST 2 VWSon 04-06-2023 XR CHEST 2 VWS XR CHEST 2 VWS History: Chest discomfort Exam/Technique: PA and lateral chest Comparison: 08/03/2020 Findings: There is no evidence of active pulmonary or pleural disease. Cardiac and mediastinal contours are within normal limits. IMPRESSION: No evidence of active pulmonary disease demonstrated. Finalized by Bin Johnston MD on 04/06/2023 3:00 PM Normal [facility] XR Chest PA and Lateralon History: Chest discomfort Exam/Technique: PA and lateral chest Comparison: 08/03/2020 Findings: There is no evidence of active pulmonary or pleural disease. Cardiac and mediastinal contours are within normal limits. IMPRESSION: No evidence of active pulmonary disease demonstrated. Finalized by Bin Johnston MD on 04/06/2023 3:00 PM Bin Harris MD - 04/06/2023 History: Chest discomfort Exam/Technique: PA and lateral chest Comparison: 08/03/2020 Findings: There is no evidence of active pulmonary or pleural disease. Cardiac and mediastinal contours are within normal limits. IMPRESSION: No evidence of active pulmonary disease demonstrated. Finalized by Bin Johnston MD on 04/06/2023 3:[address] [facility] Radiology Study observation (narrative) [facility] XR Chest PA and LateralOrder ed By: Bin Johnston on 04-06-2023 [facility] Work Phone: Antinuclear AB, HE-p Substra te, (JACQUIE by IFA)on 03-01-2023 JACQUIE Pattern: Homogeneous Normal [facility] Comment on above: Result Comment: NOTE Test Performed by: [facility] [place] [facility] [address] [place] [address] Beverage Host: Albert Berry M.D. Ph.D.; CLIA# [id number] Performed By: #### C BCA, 58300-6, C34, 90926-9, CMP, 1988-5, ENAP, 40474-1, 75737-3, 33952-0, 5130-0, 62009-3 #### [facility] ([id number]) [address], [address] [place] [address] #### 57080-0, NAIFA #### [facility] ([id number]) [address] [place] [address] 15387 JACQUIE Titer: 1:1280 Normal [facility] Comment on above: Performed By: #### C MAHIN, 47160-9, C34, 31918-1, CMP, 1987-5, ENAP, 46409-0, 42681-4, 18181-6, 5130-0, 22798-9 #### [facility] ([id number]) [address] [place] [address], [address] [place] [address] #### 77818-0, NAIFA #### [facility] ([id number]) [address] [place] [address] 41945 Antinuclear Ab, HEp-2 Substrate, S Positive Abnormal <1:80 (Negative) [facility] Comment on above: Result Comment: NOTE ADDITIONAL INFORMATION Method: Immunofluorescence using HEp-2 cellular substrate. Performed By: #### C MAHIN, 49036-1, C34, 90082-1, CMP, 1987-5, ENAP, 13373-8, 14463-7, 42832-3, 5130-0, 68899-4 #### [facility] ([id number]) [address], [address] [place] [id number] #### 53979-6, NAIFA #### [facility] ([id number]) [address] [place] [address] 79294 CBC AND AUTO DIFFon 03-01-20 Erythrocyte distribution width (RBC) [Ratio] 14.3 % Normal 11.5-15.0 [facility] Comment on above: Performed By: #### C MAHIN, 49911-6, C34, 67970-6, CMP, 1987-5, ENAP, 82891-8, 96746-8, 37515-0, 5130-0, 61359-0 #### [facility] ([id number]) [address], [address] [place] [address] #### 42547-4, NAIFA #### [facility] ([id number]) [address] [place] [address] 47800 Hematocrit (Bld) [Volume fraction] 38.6 % Normal 35-47 [facility] Comment on above: Performed By: #### C BCA, 81881-2, C34, 04013-3, CMP, 1987-, ENAP, 02898-0, 62633-4, 28956-7, 5130-0, 38294-8 #### [facility] ([id number]) [address], [address] [place] [address] #### 26247-4, NAIFA #### [facility] ([id number]) [address] [place] [address] 53371 Hemoglobin (Bld) [Mass/Vol] 12.8 g/dL Normal 11.7-15.5 [facility] Comment on above: Performed By: #### C BCA, 64807-6, C34, 97569-5, CMP, 1987-07, ENAP, 91599-7, 81948-9, 36371-4, 5130-0, 36632-8 #### [facility] ([id number]) [address], [address] [place] [address] #### 38606-9, NAIFA #### [facility] ([id number]) [address] [place] [address] 19160 Lymphocytes (Bld) [#/Vol] 1.0 10*3/uL Normal 1.0-3.5 [facility] Comment on above: Performed By: #### C BCA, 12891-1, C34, 72368-7, CMP, 1987-5, ENAP, 56571-9, 16252-2, 53628-8, 5130-0, 74199-7 #### [facility] ([id number]) [address], [address] [place] [id number] #### 11447-8, NAIFA #### [facility] ([id number]) [address] [place] [address] 01567 Lymphocytes/100 WBC (Bld) 37.0 % Normal [facility] Comment on above: Performed By: #### C BCA, 95114-8, C34, 92301-2, CMP, 1987-5, ENAP, 32243-3, 12858-1, 92924-4, 5130-0, 15599-2 #### [facility] ([id number]) [address], [address] [place] [id number] #### 14184-1, NAIFA #### [facility] ([id number]) [address] [place] [address] 65093 MCH (RBC) [Entitic mass] 31.0 pg Normal 27-34 [facility] Comment on above: Performed By: #### C BCA, 37168-6, C34, 41586-6, CMP, 1987-, ENAP, 83658-3, 56331-4, 03146-0, 5130-0, 78011-6 #### [facility] ([id number]) [address], [address] [place] [address] #### 90841-1, NAIFA #### [facility] ([id number]) [address] [place] [address] 51751 MCHC (RBC) [Mass/Vol] 33.1 g/dL Normal 32-36 [facility] Comment on above: Performed By: #### C BCA, 02997-4, C34, 20811-3, CMP, 1987-5, ENAP, 63532-0, 34901-0, 98356-2, 5130-0, 85983-9 #### [facility] ([id number]) [address], [address] [place] [address] #### 75872-3, NAIFA #### [facility] ([id number]) [address] [place] [address] 79965 MCV (RBC) [Entitic vol] 94 fL Normal 80-100 [facility] Comment on above: Performed By: #### C BCA, 63478-7, C34, 67403-4, CMP, 1987-5, ENAP, 75491-0, 81398-2, 33069-1, 5130-0, 41881-6 #### [facility] ([id number]) [address], [address] [place] [id number] #### 86407-9, NAIFA #### [facility] ([id number]) [address] [place] [address] 69042 Monocytes (Bld) [#/Vol] 0.3 10*3/uL Normal 0-0.9 [facility] Comment on above: Performed By: #### C BCA, 21581-6, C34, 27418-9, CMP, 1987-07, ENAP, 82760-6, 61753-8, 34156-2, 5130-0, 21248-9 #### [facility] ([id number]) [address], [address] [place] [address] #### 77732-6, NAIFA #### [facility] ([id number]) [address] [place] [address] 26614 Monocytes/100 WBC (Bld) 10.0 % Normal [facility] Comment on above: Performed By: #### C BCA, 11356-5, C34, 77749-0, CMP, 1987-5, ENAP, 42262-9, 50487-9, 77867-2, 5130-0, 28357-5 #### [facility] ([id number]) [address], [address] [place] [address] #### 12257-1, NAIFA #### [facility] ([id number]) [address] [place] [address] 90734 Neutrophils (Bld) [#/Vol] 1.3 10*3/uL Low 1.5-6.6 [facility] Comment on above: Performed By: #### C BCA, 90141-0, C34, 66872-8, CMP, 1987-5, ENAP, 02505-0, 04711-3, 98568-1, 5130-0, 13820-4 #### [facility] ([id number]) [address], [address] [place] [address] #### 94064-7, NAIFA #### [facility] ([id number]) [address] [place] [address] 95739 Platelet mean volume (Bld) [Entitic vol] 7.1 fL Normal 7-12 [facility] Comment on above: Performed By: #### C BCA, 47741-7, C34, 05158-0, CMP, 1987-5, ENAP, 31874-1, 83964-5, 19085-4, 5130-0, 64184-3 #### [facility] ([id number]) [address], [address] [place] [address] #### 34064-4, NAIFA #### [facility] ([id number]) [address] [place] [address] 28341 Platelets (Bld) [#/Vol] 402 10*3/uL Normal 150-450 [facility] Comment on above: Performed By: #### C BCA, 64402-8, C34, 72759-7, CMP, 1987-5, ENAP, 72934-9, 10917-1, 71728-3, 5130-0, 40592-2 #### [facility] ([id number]) [address], [address] [place] [address] #### 82003-7, NAIFA #### [facility] ([id number]) [address] [place] [address] 08440 RBC COUNT 4.12 X10E12/L Normal 3.80-5.20 [facility] Comment on above: Performed By: #### C BCA, 66559-9, C34, 85727-0, CMP, 1987-, ENAP, 04799-5, 34785-4, 99126-8, 5130-0, 97838-9 #### [facility] ([id number]) [address], [address] [place] [address] #### 50262-7, NAIFA #### [facility] ([id number]) [address] [place] [address] 72621 RBC morphology finding Nom (Bld) NORMAL Normal [facility] Comment on above: Performed By: #### C BCA, 48805-1, C34, 53561-3, CMP, 1987-, ENAP, 63017-7, 64102-3, 28967-7, 5130-0, 83076-8 #### [facility] ([id number]) [address], [address] [place] [address] #### 85514-8, NAIFA #### [facility] ([id number]) [address] [place] [address] 17654 SEG NEUTROPHIL 53.0 % Normal [facility] Comment on above: Performed By: #### C BCA, 49965-3, C34, 47151-1, CMP, 1987-07, ENAP, 42606-0, 59240-5, 69558-3, 5130-0, 08064-4 #### [facility] ([id number]) [address], [address] [place] [address] #### 52103-1, NAIFA #### [facility] ([id number]) [address] [place] [address] 39599 WBC (Bld) [#/Vol] 2.6 10*3/uL Low 4.0-11.0 [facility] Comment on above: Performed By: #### C BCA, 70010-2, C34, 27890-4, CMP, 1987-07, ENAP, 59438-2, 74038-2, 37643-4, 5130-0, 34428-8 #### [facility] ([id number]) [address], [address] [place] [address] #### 28652-3, NAIFA #### [facility] ([id number]) [address] [place] [address] 27448 CCL GENERIC ORDERon 03-01-20 TEST NAME CRITH DSDNA ANTIBODY BY CORY IFA [facility] Comment on above: Performed By: #### C BCA, 12782-1, C34, 41152-9, CMP, 1987-07, ENAP, 90801-7, 84496-1, 62742-8, 5130-0, 78364-6 #### [facility] ([id number]) [address], [address] [place] [address] #### 16320-6, NAIFA #### [facility] ([id number]) [address] [place] [address] 31055 TEST RESULT See Below [facility] Comment on above: Result Comment: NOTE TEST RESULT FLAG UNIT REF.RANGE ------- Crithidia lucillae Positive A Negative Crithidia luciliae assay is used as an aid in diagnosis of systemic lupus erythematosus (SLE). A negative result cannot rule out SLE. Low positive titers may be seen with other systemic autoimmune diseases. Clinical correlation is required. DSDNA ANTIBODY BY CRITHIDIA IFA Test Performed By: [facility] [address] [place] [address] Instrumentation Engineering Technician: Manan Awan III, M.D. CLIA #[id number] Performed By: #### C BCA, 17686-5, C34, 00498-2, CMP, 1987-, ENAP, 54239-7, 46098-9, 13678-4, 5130-0, 31034-1 #### [facility] ([id number]) [address] [place] [address], [place] [address] #### 24115-2, NAIFA #### [facility] ([id number]) [address] [place] [address] 77384 COMPLEMENT PROFILEon 12-21-2 023 COMPLEMENT C3 120 mg/dL Normal 86-184 [facility] Comment on above: Performed By: #### C BCA, 17042-4, C34, 15516-3, CMP, 1987-07, ENAP, 47957-5, 68094-5, 19145-0, 5130-0, 21197-3 #### [facility] ([id number]) [address] [place] [address], [address] [place] [address] #### 70727-6, NAIFA #### [facility] ([id number]) [address] [place] [address] 15977 COMPLEMENT C4 13 mg/dL Low 16-47 [facility] Comment on above: Performed By: #### C BCA, 09196-5, C34, 80988-3, CMP, 1988-5, ENAP, 98114-9, 73275-7, 93005-4, 5130-0, 23571-1 #### [facility] ([id number]) [address], [address] [place] [address] #### 67691-2, NAIFA #### [facility] ([id number]) [address] [place] [address] 34123 COMPREHENSIVE METABOLIC PANE [facility] 03-01-2023 Albumin [Mass/Vol] 3.9 g/dL Normal 3.2-5.3 [facility] Comment on above: Performed By: #### C BCA, 34477-9, C34, 53190-3, CMP, 1987-5, ENAP, 00971-1, 56609-3, 20090-5, 5130-0, 37701-1 #### [facility] ([id number]) [address], [address] [place] [address] #### 93509-8, NAIFA #### [facility] ([id number]) [address] [place] [address] 39824 ALP [Catalytic activity/Vol] 86 U/L Normal 39-130 [facility] Comment on above: Performed By: #### C BCA, 10495-8, C34, 77420-9, CMP, 1987-5, ENAP, 91593-9, 64853-2, 67026-2, 5130-0, 16258-9 #### [facility] ([id number]) [address], [address] [place] [address] #### 07446-8, NAIFA #### [facility] ([id number]) [address] [place] [address] 92215 ALT [Catalytic activity/Vol] 13 U/L Normal 0-31 [facility] Comment on above: Performed By: #### C BCA, 32993-8, C34, 05062-2, CMP, 1987-5, ENAP, 38035-7, 61393-4, 43766-1, 5130-0, 41638-6 #### [facility] ([id number]) [address], [address] [place] [address] #### 66718-4, NAIFA #### [facility] ([id number]) [address] [place] [address] 84531 Anion gap [Moles/Vol] 11 mmol/L Normal 5-15 [facility] Comment on above: Performed By: #### C BCA, 12790-5, C34, 59613-0, CMP, 1987-5, ENAP, 84212-9, 20031-4, 00621-8, 5130-0, 02250-9 #### [facility] ([id number]) [address], [address] [place] [address] #### 34706-7, NAIFA #### [facility] ([id number]) [address] [place] [address] 73669 AST [Catalytic activity/Vol] 18 U/L Normal 0-41 [facility] Comment on above: Performed By: #### C BCA, 76380-7, C34, 36974-8, CMP, 1987-, ENAP, 78613-3, 90839-7, 12394-8, 5130-0, 81195-2 #### [facility] ([id number]) [address], [address] [place] [address] #### 06173-5, NAIFA #### [facility] ([id number]) [address] [place] [address] 18093 Bilirubin [Mass/Vol] 0.5 mg/dL Normal 0.3-1.2 [facility] Comment on above: Performed By: #### C BCA, 87286-4, C34, 05301-8, CMP, 1987-5, ENAP, 19908-6, 53774-2, 91615-1, 5130-0, 79154-4 #### [facility] ([id number]) [address], [address] [place] [address] #### 72675-0, NAIFA #### [facility] ([id number]) [address] [place] [address] 54968 Calcium [Mass/Vol] 8.7 mg/dL Normal 8.5-10.5 [facility] Comment on above: Performed By: #### C BCA, 78682-8, C34, 99882-3, CMP, 1987-5, ENAP, 61444-8, 76008-7, 41181-6, 5130-0, 82355-0 #### [facility] ([id number]) [address], [address] [place] [address] #### 81807-3, NAIFA #### [facility] ([id number]) [address] [place] [address] 19951 Chloride [Moles/Vol] 106 mmol/L Normal 98-109 [facility] Comment on above: Performed By: #### C BCA, 39079-7, C34, 51354-7, CMP, 1987-, ENAP, 93245-1, 62464-6, 84802-5, 5130-0, 14469-7 #### [facility] ([id number]) [address], [address] [place] [address] #### 21422-5, NAIFA #### [facility] ([id number]) [address] [place] [address] 63322 CO2 [Moles/Vol] 25 mmol/L Normal 22-32 [facility] Comment on above: Performed By: #### C BCA, 38988-9, C34, 63227-9, CMP, 1987-5, ENAP, 36284-0, 27359-6, 09852-4, 5130-0, 16335-7 #### [facility] ([id number]) [address], [address] [place] [address] #### 51360-1, NAIFA #### [facility] ([id number]) [address] [place] [address] 42934 Creatinine [Mass/Vol] 0.65 mg/dL Normal 0.40-1.00 [facility] Comment on above: Result Comment: METH OD TRACEABLE TO IDMS STANDARD Performed By: #### C BCA, 83106-8, C34, 58281-1, CMP, 1987-, ENAP, 15590-7, 42786-0, 94705-9, 5130-0, 76294-5 #### [facility] ([id number]) [address], [address] [place] [id number] #### 72003-6, NAIFA #### [facility] ([id number]) [address] [place] [address] 46530 eGFR (CKD-EPI) NON-RACE DEPENDENT >90 Normal >59 [facility] Comment on above: Result Comment: Reported eGFR is based on the CKD-EPI 2020 equation that does not use a race coefficient. Performed By: #### C BCA, 30241-3, C34, 01035-6, CMP, 1987-, ENAP, 35873-2, 43323-3, 90099-3, 5130-0, 92816-3 #### [facility] ([id number]) [address], [address] [place] [address] #### 29164-4, NAIFA #### [facility] ([id number]) [address] [place] [address] 25566 Glucose [Mass/Vol] 102 mg/dL High 65-99 [facility] Comment on above: Performed By: #### C BCA, 92182-0, C34, 72747-3, CMP, 1987-5, ENAP, 79855-6, 79160-3, 55794-3, 5130-0, 46976-2 #### [facility] ([id number]) [address], [address] [place] [address] #### 75113-8, NAIFA #### [facility] ([id number]) [address] [place] [address] 15421 Potassium [Moles/Vol] 3.8 mmol/L Normal 3.5-5.0 [facility] Comment on above: Performed By: #### C BCA, 82739-6, C34, 06393-1, CMP, 1987-5, ENAP, 17291-0, 66389-6, 54112-4, 5130-0, 35128-9 #### [facility] ([id number]) [address], [address] [place] [address] #### 54143-8, NAIFA #### [facility] ([id number]) [address] [place] [address] 47802 Protein [Mass/Vol] 7.6 g/dL Normal 6.0-8.0 [facility] Comment on above: Performed By: #### C BCA, 86375-1, C34, 41968-5, CMP, 1987-5, ENAP, 78937-9, 04855-5, 92991-3, 5130-0, 98134-3 #### [facility] ([id number]) [address], [address] [place] [address] #### 77818-5, NAIFA #### [facility] ([id number]) [address] [place] [address] 93459 Sodium [Moles/Vol] 142 mmol/L Normal 134-146 [facility] Comment on above: Performed By: #### C BCA, 47386-0, C34, 11971-5, CMP, 1987-5, ENAP, 00075-3, 65452-0, 71252-6, 5130-0, 74961-6 #### [facility] ([id number]) [address], [address] [place] [address] #### 09786-0, NAIFA #### [facility] ([id number]) [address] [place] [address] 52847 Urea nitrogen [Mass/Vol] 6 mg/dL Normal 5-23 [facility] Comment on above: Performed By: #### C BCA, 03486-5, C34, 90718-9, CMP, 1987-5, ENAP, 85067-6, 87489-0, 05983-5, 5130-0, 44301-5 #### [facility] ([id number]) [address], [address] [place] [address] #### 97869-9, NAIFA #### [facility] ([id number]) [address] [place] [address]3682 CRP [Mass/Vol]on 03-01-2023 C REACTIVE PROTEIN 0.9 mg/dL High 0.000-0.744 [facility] Comment on above: Performed By: #### C BCA, 90826-2, C34, 69751-9, CMP, 1987-5, ENAP, 90738-4, 38471-9, 66017-3, 5130-0, 30569-5 #### [facility] ([id number]) [address], [address] [place] [address] #### 56025-7, NAIFA #### [facility] ([id number]) [address] [place] [address]269 Chromatin Ab Qlon 03-01-2023 CHROMATIN AB IGG 5.3 AI High <1.0 [facility] Comment on above: Performed By: #### C BCA, 81875-7, C34, 54646-5, CMP, 1987-, ENAP, 93116-1, 60930-0, 52522-5, 5130-0, 98573-4 #### [facility] ([id number]) [address] [place] [address], [address] [place] [address] #### 32043-5, NAIFA #### [facility] ([id number]) [address] [place] [address] 88840 DNA double strand Ab Qn (S)o n 03-01-2023 DOUBLE STRANDED DNA 15 IU/ML High <5 [facility] Comment on above: Result Comment: Interpretation-------- <5 Negative 5-9 Indeterminate >9 Positive Performed By: #### C BCA, 74405-9, C34, 18820-2, CMP, 1987-07, ENAP, 97543-0, 03844-7, 93914-5, 5130-0, 52181-4 #### [facility] ([id number]) [address] [place] [address], [address] [place] [address] #### 47408-9, NAIFA #### [facility] ([id number]) [address] [place] [address] MARCELA PANELon 03-01-2023 ANTI-ARMSTRONG AB IGG 0.2 AI Normal <1.0 [facility] Comment on above: Performed By: #### C BCA, 94834-2, C34, 18846-4, CMP, 1987-, ENAP, 73502-5, 51592-4, 78299-2, 5130-0, 19207-2 #### [facility] ([id number]) [address], [address] [place] [address] #### 55142-0, NAIFA #### [facility] ([id number]) [address] [place] [address]854 JO1 ANTIBODY <0.2 Normal <1.0 [facility] Comment on above: Performed By: #### C BCA, 60761-8, C34, 90860-0, CMP, 1987-5, ENAP, 16078-8, 13637-1, 85590-3, 5130-0, 13354-3 #### [facility] ([id number]) [address], [address] [place] [address] #### 63381-9, NAIFA #### [facility] ([id number]) [address] [place] [address] TRAIN CALLER ANTIBODY IGG 0.3 AI Normal <1.0 [facility] Comment on above: Performed By: #### C BCA, 45999-8, C34, 09285-0, CMP, 1987-5, ENAP, 93361-3, 50163-2, 10146-8, 5130-0, 29900-2 #### [facility] [facility] ([id number]) [address], [address] [place] [address] #### 97798-9, NAIFA #### [facility] ([id number]) [address] [place] [address] SCL 70 ANTIBODY <0.2 Normal <1.0 [facility] Comment on above: Performed By: #### C BCA, 15789-3, C34, 14236-9, CMP, 1987-5, ENAP, 98218-2, 82050-9, 67577-9, 5130-0, 54209-6 #### [facility] ([id number]) [address], [address] [place] [address] #### 31007-5, NAIFA #### [facility] ([id number]) [address] [place] [address] SSA ANTIBODY 3.4 AI High <1.0 [facility] Comment on above: Performed By: #### C BCA, 68588-2, C34, 84281-8, CMP, 1987-5, ENAP, 33873-9, 41728-4, 84708-1, 5130-0, 77505-9 #### [facility] ([id number]) [address] [facility], [address] [place] [address] #### 43201-9, NAIFA #### [facility] ([id number]) [address] [place] [address] SSB ANTIBODY <0.2 Normal <1.0 [facility] Comment on above: Performed By: #### C BCA, 78208-4, C34, 99199-8, CMP, 1987-5, ENAP, 76711-6, 00257-9, 23328-3, 5130-0, 41174-1 #### [facility] ([id number]) [address] [facility], [address] [place] [address] #### 19991-0, NAIFA #### [facility] ([id number]) [address] [place] [address] 49546 ESR Photometric method (Bld) [Velocity]on 03-01-2023 ESR, ERYTHROCYTE SEDIMENTATION RATE 59 mm/h High 0-20 [facility] Comment on above: Performed By: #### C BCA, 01942-4, C34, 75932-1, CMP, 1987-5, ENAP, 70870-1, 34878-8, 83141-9, 5130-0, 55774-2 #### [facility] ([id number]) [address], [address] [place] [address] #### 83670-8, NAIFA #### [facility] ([id number]) [address] [facility], [place] [address] G6PD (RBC) [Catalytic activi ty/Mass]on 03-01-2023 G6PD See Below Normal [facility] Comment on above: Result Comment: NOTE TEST RESULT FLAG UNIT REF.RANGE ------- G-6-PD Quantitative 15.1 U/g Hb 9.8-15.5 This test was developed and its performance characteristics determined by [facility] [place] ([facility]). It has not been cleared or approved by the FDA. [facility] is regulated under CLIA as qualified to perform high-complexity testing. This test is used for clinical purposes. It should not be regarded as investigational or for research. Test Performed By: [facility] [address] [place] [address] Instrumentation Engineering Technician: Manan Awan III, M.D. CLIA #[id number] Performed By: #### C MAHIN, 43064-4, C34, 31990-6, CMP, 1988-5, ENAP, 33764-5, 37560-4, 27386-3, 5130-0, 47632-9 #### [facility] ([id number]) [address] [facility], [address] [place] [address] #### 16434-3, NAIFA #### [facility] ([id number]) [address] [facility], [place] [address] HGB A1C (GLYCO-HGB)on 2022 Glucose [Mass/Vol] 131 mg/dL Normal [facility] Comment on above: Performed By: #### C BCA, 56938-7, C34, 40210-4, CMP, 1987-5, ENAP, 70139-9, 70416-5, 38888-7, 5130-0, 50935-3 #### [facility] ([id number]) [address] [facility], [address] [address] #### 09914-7, NAIFA #### [facility] ([id number]) [address] [place] [address] HbA1c (Bld) [Mass fraction] 6.2 % High 4.4-5.6 [facility] Comment on above: Result Comment: NOTE ADA Guidelines Result HgbA1c Normal : less than 5.7 % Prediabetes : 5.7 % to 6.4 % Diabetes : > 6.4 % Use with caution in patients with abnormal hemoglobin variants as the half-life of red blood cells and in vivo glycation rates are affected. Performed By: #### C BCA, 64035-1, C34, 96079-0, CMP, 1987-5, ENAP, 30278-3, 94252-5, 94582-6, 5130-0, 21464-9 #### [facility] ([id number]) [address] [facility], [address] [address] #### 92254-0, NAJUAN LUIS #### [facility] ([id number]) [address] [place] [address] Laboratory comment Maxwell (Repo rt)on 03-01-2023 UNLISTED LAB TEST Sent to reference lab Normal [facility] Comment on above: Performed By: #### C BCA, 77044-3, C34, 03638-7, CMP, 1987-5, ENAP, 44765-5, 78588-8, 68413-7, 5130-0, 12428-3 #### [facility] ([id number]) [address] [facility], [address] [place] [address] #### 39182-3, NAIFA #### [facility] ([id number]) [address] [place] [address]67 Nuclear Ab IA Ql (S)on 03-01 JACQUIE Screen w/reflex Positive Abnormal NEG [facility] Comment on above: Result Comment: Testing performed using multiplex flow immunoassay. Eleven different antigens associated with systemic autoimmune diseases (dsDNA,Sm,Sm/TRAIN CALLER,TRAIN CALLER,Chromatin, SSA,SSB,Sulma-1,Scl70,Ribo P,Centromere B) are included in this screening test. Performed By: #### C BCA, 01251-4, C34, 26674-7, CMP, 1987-, ENAP, 05883-4, 26995-9, 64562-1, 5130-0, 07314-2 #### [facility] ([id number]) [address] [facility], [address] [place] [address] #### 23026-1, NAIFA #### [facility] ([id number]) [address] [place] [address] Rheumatoid factor Nephelomet ry Qn (S)on 03-01-2023 RHEUMATOID FACTOR <10 Normal <20 [facility] Comment on above: Performed By: #### C BCA, 03457-3, C34, 33364-4, CMP, 1987-07, ENAP, 40448-5, 66315-8, 95275-3, 5130-0, 98957-3 #### [facility] ([id number]) [address] [facility], [address] [place] [address] #### 13202-8, NAIFA #### [facility] ([id number]) [address] [place] [address]68 Armstrong extractable nuclear Ab +Ribonucleoprotein extractable nuclear IgG Qn (S)on 03-01-2023 ARMSTRONG/TRAIN CALLER AB IGG <0.2 Normal <1.0 [facility] Comment on above: Performed By: #### C BCA, 27605-8, C34, 18984-7, CMP, 1988-5, ENAP, 42709-3, 94764-9, 08827-9, 5130-0, 57354-0 #### [facility] ([id number]) [address] [facility], [address] [place] [address] #### 09592-4, NAIFA #### [facility] ([id number]) [address] [place] [address], [place] [address] Family Medicine Office/Clini c Noteon 11-10-2022 Family [...] qWeek, # 4 EA, Refills(s) 0, Pharmacy: [facility] [id number], 172.3, cm, 11/10/22 12:48:00 EDT, Height/Length Dosing, 158.9, kg, 11/10/22 12:48:00 EDT, Weight Dosing 2. Pre-diabetes (R73.03: Prediabetes) see above Ordered: semaglutide, 0.25 mg, SubCutaneous, qWeek, # 4 EA, Refills(s) 0, Pharmacy: [facility] [id number], 172.3, cm, 11/10/22 12:48:00 EDT, Height/Length Dosing, [...] virus vaccine, inactivated 01/11/2022 Recorded SARS-CoV-2 (COVID-19) [id number] 01/11/2022 Recorded 2022-11-09: TPV40 influenza virus vaccine, inactivated 01/17/2021 Recorded SARS-CoV-2 (COVID-19) mRNA-1273 vaccine 07/13/2020 Recorded 2022-11-09: TPV40 SARS-CoV-2 (COVID-19) mRNA-1273 vaccine 06/15/2020 Recorded 2022-11-09: TPV40 influenza virus vaccine, inactivated 02/17/2020 Recorded diphtheria/pertussis, acel/tetanus adult 05/05/2019 Recorded diphtheria/pertussis, acel/tetanus adult 11/14/2018 Recorded hepatitis B adult vaccine 07/23/2018 Recorded hepatitis B adult vaccine 01/23/2018 Recorded hepatitis B adult vaccine 12/25/2017 Recorded Normal [facility] Comment on above: Result Comment: Elec tronically Signed By: Silvia Bailey\.br\Date and Time Signed: 11/10/22 13:28 EDT Quantiferon-TB Plus (Client Incubated)on 10-26-2022 Gamma interferon background IA Qn (Bld) 0.25 International_Unit/mL Invalid Interpretation Code [facility] Comment on above: Performed By: #### 3 [id number], [id number], [id number], [id number] #### [facility] [address] [place] [address] M. tuberculosis stim IFN-g by CD4+ CD8+ T-cells Qn (Bld) 0.16 International_Unit/mL Invalid Interpretation Code [facility] Comment on above: Performed By: #### 3 [id number], [id number], [id number], [id number] #### [facility] [address] [place] [id number] M. tuberculosis stim IFN-g by CD4+ T-cells Qn (Bld) 0.15 International_Unit/mL Invalid Interpretation Code [facility] Comment on above: Performed By: #### 3 [id number], 8578153, [id number], [id number] #### [facility] [address] [place] [address] M. tuberculosis stim IFN-g Ql (Bld) [Interp] Negative Invalid Interpretation Code Negative [facility] Comment on above: Result Comment: No r [...] interferon gamma. Chemiluminescence immunoassay methodology Performed at: [facility] [id number] PhD Jimbo Flores Performed By: #### 3 [id number], 0439779, [id number], [id number] #### [facility] [address] [place] [address] Mitogen stimulated gamma interferon Qn (Bld) 1.13 International_Unit/mL Invalid Interpretation Code [facility] Comment on above: Performed By: #### 3 [id number], 5938022, [id number], [id number] #### [facility] [address] [place] [address] Service comment (Unsp spec) [Interp] Comment Invalid Interpretation Code [facility] Comment on above: Result Comment: Kelvin tiFERON-TB [...] for the test. Performed By: #### 3 [id number], [id number], [id number], [id number] #### [facility] [address] [place] [address] Hep Bs Abon 10-25-2022 HBV surface Ab Ql (S) Reactive Invalid Interpretation Code [facility] Comment on above: Result Comment: Non Reactive: Inconsistent with immunity, less than 10 mIU/mL Reactive: Consistent with immunity, greater than 9.9 mIU/mL Performed at: [address] [id number] PhD Jimbo Flores Performed By: #### 3 [id number], 3964005, [id number], [id number] #### [facility] [address] [place] [address] Measles/Mumps/Rubella Immuni tyon 10-25-2022 MeV IgG IA Qn (S) {index_val} Invalid Interpretation Code Immune >16.4 [facility] Comment on above: Result Comment: Nega tive <13.5 Equivocal 13.5 - 16.4 Positive >16.4 Presence of antibodies to Rubeola is presumptive evidence of immunity except when acute infection is suspected. Performed By: #### 3 [id number], [id number], [id number], [id number] #### [facility] [address] [place] [address] MuV IgG IA Qn (S) 92.8 A unit/mL Invalid Interpretation Code Immune >10.9 [facility] Comment on above: Result Comment: Nega tive <9.0 Equivocal 9.0 - 10.9 Positive >10.9 A positive result generally indicates past exposure to Mumps virus or previous vaccination. Performed at: [facility] [address] [place] [id number] PhD Jimbo Flores Performed By: #### 3 [id number], 1114954, [id number], [id number] #### [facility] [address] [place] [address] Rubella virus IgG Qn (S) 19.50 [IU]/mL Invalid Interpretation Code Immune >0.99 [facility] Comment on above: Result Comment: Non- immune <0.90 Equivocal 0.90 - 0.99 Immune >0.99 Performed By: #### 3 [id number], 1307799, 37572690, [id number] #### Orellana [facility] [address] [place] [address] Varic IgGon 10-25-2022 VZV IgG IA Qn (S) >4000 Invalid Interpretation Code Immune >165 [facility] Comment on above: Result Comment: Nega tive <135 Equivocal 135 - 165 Positive >165 A positive result generally indicates exposure to the pathogen or administration of specific immunoglobulins, but it is not indication of active infection or stage of disease. Performed at: [facility] [id number] PhD Jimbo Flores Performed By: #### 3 [id number], 8952899, [id number], [id number] #### Esteban [facility] [address] [place] [address] COVID + FLU Quick Testingon 02-07-2022 SARS-CoV-2 (COVID-19) RNA JAYLEEN+probe Ql (Unsp spec) Negative [facility] Other COVID + FLU Quick Testing Negative [facility] Other KNEE RIGHT 3 Son 2 KNEE RIGHT 3 S [facility] Department of Radiology [address] [place] [phone] ======== Patient Name: NAVDEEP PALMA : 1975 Sex: F Age: Race: Black Pt. 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 COMPARISON: 02/18/2021 FINDINGS: Right total knee replacement redemonstrated with no evidence of acute complications of hardware or new abnormalities of surrounding bone displayed. IMPRESSION: Unchanged from early February Electronically signed: Bin Johnston. Transcribed by: [email or web address], User Resident: Electronically Signed by: BIN JOHNSTON @ 04/10/2021 07:02 PM Normal [facility] Comment on above: Order Comment: Views (X-RAY, KNEE): AP, Lateral, [place] , Weight Bearing?: Y KNEE RIGHT 1 OR 2 [facility] 02-09 KNEE RIGHT 1 OR 2 [facility] Department of Radiology [address] [place] [phone] ======== Patient Name: NAVDEEP PALMA DOB: 1975 Sex: F Age: Race: Black Pt. Location: Patient Status: D Ordered Date: 02/17/2021 4:30:00 PM Completed Date: 02/18/2021 01:57 PM Requesting Provider: LYSSA PARK Attending Provider: LYSSA PARK Report Copy To: JORDYN BARRERA Signs & Symptoms: Z48.89 Encounter for other specified surgical aftercare I10 History: Eugene Comments: Evaluate Exam: KNEE RIGHT 1 OR 2 [facility] ======== KNEE RIGHT 1 OR 2 [facility] [...] of right knee replacement Electronically signed: Endy Andujar. Transcribed by: [email or web address], User Resident: ENDY ANDUJAR Electronically Signed by: ENDY ANDUJAR @ 02/20/2021 02:18 PM I personally read this/these film(s) with this resident Normal [facility] Comment on above: Order Comment: Evalu ate BASIC METABOLIC PANELon 12-0 Calcium [Mass/Vol] 8.3 mg/dL Low 8.6-10.3 [facility] Comment on above: Order Comment: No: D o not add to previous draw Performed By: #### 3 1595 #### [facility] [address] [place] [address], [facility] Chloride [Moles/Vol] 104 mmol/L Normal 98-107 [facility] Comment on above: Order Comment: No: D o not add to previous draw Performed By: #### 3 1595 #### [facility] [address] [place] [address], [place] CO2 [Moles/Vol] 28 mmol/L Normal 21-31 [facility] Comment on above: Order Comment: No: D o not add to previous draw Performed By: #### 3 1595 #### [facility] [address] [place] [address], [place] Creatinine [Mass/Vol] 0.64 mg/dL Normal 0.60-1.20 [facility] Comment on above: Order Comment: No: D o not add to previous draw Performed By: #### 3 1595 #### [facility] [address] [place] [address], [place] GFR/1.73 sq M.predicted among blacks MDRD (S/P/Bld) [Vol rate/Area] mL/min/{1.73_m2} Normal >60 [facility] Comment on above: Order Comment: No: D o not add to previous draw Performed By: #### 3 1595 #### [facility] [address] [place] [address], [place] GFR/1.73 sq M.predicted among non-blacks MDRD (S/P/Bld) [Vol rate/Area] mL/min/{1.73_m2} Normal >60 [facility] Comment on above: Order Comment: No: D o not add to previous draw Performed By: #### 3 1595 #### [facility] [address] [place] [address], [place] Glucose [Mass/Vol] 133 mg/dL High 70-100 [facility] Comment on above: Order Comment: No: D o not add to previous draw Performed By: #### 3 1595 #### [facility] [address] [place] [address], [facility] Potassium [Moles/Vol] 4.3 mmol/L Normal 3.5-5.1 [facility] Comment on above: Order Comment: No: D o not add to previous draw Performed By: #### 3 1595 #### [facility] [address] [place] [address], [place] Sodium [Moles/Vol] 138 mmol/L Normal 136-145 [facility] Comment on above: Order Comment: No: D o not add to previous draw Performed By: #### 3 1595 #### [facility] [address] [place] [address], [facility] Urea nitrogen [Mass/Vol] 7 mg/dL Normal 7-25 [facility] Comment on above: Order Comment: No: D o not add to previous draw Performed By: #### 3 1595 #### [facility] [address] [place] [address], [facility] CBC COMPLETE BLOOD COUNTon 1 04-13-2020 Erythrocyte distribution width (RBC) [Ratio] 13.9 % Normal 11.5-15.0 [facility] Comment on above: Order Comment: No: D o not add to previous draw Performed By: #### 5 0608 #### [facility] [address] [place] [address], [place] Hematocrit (Bld) [Volume fraction] 32.2 % Low 36.0-45.0 [facility] Comment on above: Order Comment: No: D o not add to previous draw Performed By: #### 5 0608 #### [facility] [address] [place] [address], [place] Hemoglobin (Bld) [Mass/Vol] 10.7 g/dL Low 12.0-15.0 [facility] Comment on above: Order Comment: No: D o not add to previous draw Performed By: #### 5 0608 #### [facility] [address] [place] [address], [facility] MCH (RBC) [Entitic mass] 30.3 pg Normal 27.0-33.0 [facility] Comment on above: Order Comment: No: D o not add to previous draw Performed By: #### 5 0608 #### [facility] [address] [place] [id number], [facility] MCHC (RBC) [Mass/Vol] 33.2 g/dL Normal 32.0-35.0 [facility] Comment on above: Order Comment: No: D o not add to previous draw Performed By: #### 5 0608 #### [facility] [address] [place] [address], [facility] MCV (RBC) [Entitic vol] 91.2 fL Normal 82.0-98.0 [facility] Comment on above: Order Comment: No: D o not add to previous draw Performed By: #### 5 0608 #### [facility] [address] [place] [address], [facility] Nucleated RBC/100 WBC (Bld) [Ratio] 0 % Normal 0-0 [facility] Comment on above: Order Comment: No: D o not add to previous draw Performed By: #### 5 0608 #### [facility] [address] [place] [address], [facility] PLAT CNT 204 10*3/uL Normal 150-400 [facility] Comment on above: Order Comment: No: D o not add to previous draw Performed By: #### 5 0608 #### [facility] [address] [place] [address], [facility] RBC (Bld) [#/Vol] 3.53 10*6/uL Low 3.80-5.00 [facility] Comment on above: Order Comment: No: D o not add to previous draw Performed By: #### 5 0608 #### [facility] [address] [place] [address], [facility] WBC (Bld) [#/Vol] 6.84 10*3/uL Normal 4.00-10.60 [facility] Comment on above: Order Comment: No: D o not add to previous draw Performed By: #### 5 0608 #### [facility] [place] [address], [facility] Operative Reporton 1 Operative Report MR#: [id number] 2 [facility] Pt. Name: Navdeep Palma Room #: [id number] Discharge Date: Birthdate: 1975 OPERATIVE REPORT DATE [...] to morbid obesity and cemented implants using [place] [employer] posterior stabilized implant. 2. Superficial and [...] marked. The patient was taken to the [facility] OR and was placed in a supine [...] iden (more content not included)... Normal [facility] POC GLUCOSE LABon 02-09-2021 Glucose [Mass/Vol] 96 mg/dL Normal 70-100 [facility] Comment on above: Performed By: #### 8 5499 #### [address] PORTABLE KNEE RIGHT 2 [facility] 02-09-2021 PORTABLE KNEE RIGHT 2 [facility] Department of Radiology [address] [place] [phone] ======== Patient Name: NAVDEEP PALMA : 1975 Sex: F Age: Race: Black Pt. Location: OUTP Patient Status: O Ordered Date: 02/09/2021 11:25:00 AM Completed Date: 02/09/2021 11:51 AM Requesting Provider: CAMILA ARMSTRONG Attending Provider: LYSSA PARK Report Copy To: Signs & Symptoms: Pain History: Comments: Hardware Evaluation, post op eval, pt in pacu Exam: PORTABLE KNEE RIGHT 2 [facility] ======== PORTABLE KNEE RIGHT 2 [facility] 02/09/2021 11:51 AM SIGNS AND SYMPTOMS: Pain, [...] Electronically signed: Jozef Manriquez M.D.. Transcribed by: [email or web address], User Resident: Electronically Signed by: JOZEF MANRIQUEZ @ 02/09/2021 12:05 PM Normal [facility] Comment on above: Order Comment: Hardw are Evaluation, post op eval, pt in pacu *MRSA/MSSA DNA NASALon 01-18 *MRSA/MSSA DNA NASAL Clinical Report: (D ) Specimen: NASAL SWAB Collected: 01/18/2021 14:00 Status: Final Last Updated: 01/18/2021 17:12 MSSA DNA (Final) Methicillin Susceptible Staphylococcus aureus DNA Detected MRSA DNA (Final) Negative Normal [facility] Comment on above: Performed By: #### 3 1595 #### [facility] [address] [facility]. [address] *URINE CULTUREon 01-18-2021 *URINE CULTURE Clinical Report: (D) Specimen: URINE Collected: 01/18/2021 14:00 Status: Final Last Updated: 01/20/2021 09:37 ISO (Final) Lactobacillus gasseri >100,000 Cfu/Ml Normal [facility] Comment on above: Performed By: #### 3 0339 #### [facility] [address] [facility]. [address] APTTon 01-18-2021 aPTT Coag (Bld) [Time] 29.5 s Normal 25.0-35.0 Th e [facility] Comment on above: Result Comment: ALL RESULTS [...] PURPOSE. Performed By: #### 3 1595 #### [facility] [address] [place] [address], [facility] BASIC METABOLIC PANELon 11-0 Calcium [Mass/Vol] 8.9 mg/dL Normal 8.6-10.3 [facility] Comment on above: Performed By: #### 0 0071 #### [facility] [address] [place] [address], [place] Chloride [Moles/Vol] 105 mmol/L Normal 98-107 [facility] Comment on above: Performed By: #### 0 0071 #### [facility] [address] [place] [address], [place] CO2 [Moles/Vol] 27 mmol/L Normal 21-31 [facility] Comment on above: Performed By: #### 0 0071 #### [facility] [address] [place] [address], [facility] Creatinine [Mass/Vol] 0.67 mg/dL Normal 0.60-1.20 [facility] Comment on above: Performed By: #### 0 0071 #### [facility] [address] [place] [address], [place] GFR/1.73 sq M.predicted among blacks MDRD (S/P/Bld) [Vol rate/Area] mL/min/{1.73_m2} Normal >60 [facility] Comment on above: Performed By: #### 0 0071 #### [facility] [address] [place] [address], [place] GFR/1.73 sq M.predicted among non-blacks MDRD (S/P/Bld) [Vol rate/Area] mL/min/{1.73_m2} Normal >60 [facility] Comment on above: Performed By: #### 0 0071 #### [facility] [address] [place] [address], [place] Glucose [Mass/Vol] 90 mg/dL Normal 70-100 [facility] Comment on above: Performed By: #### 0 0071 #### [facility] [address] Potassium [Moles/Vol] 3.9 mmol/L Normal 3.5-5.1 [facility] Comment on above: Performed By: #### 0 0071 #### [facility] [address] Sodium [Moles/Vol] 140 mmol/L Normal 136-145 [facility] Comment on above: Performed By: #### 0 0071 #### [facility] [address] Urea nitrogen [Mass/Vol] 7 mg/dL Normal 7-25 [facility] Comment on above: Performed By: #### 0 0071 #### [facility] [address] CBC W/DIFFon 01-18-2021 ABS IMM GRANS 0.0 10*3/uL Normal 0.0-0.2 [facility] Comment on above: Performed By: #### 3 1595 #### [facility] [address] ABS NEUTROPHILS 1.2 10*3/uL Low 1.6-7.6 [facility] Comment on above: Performed By: #### 3 1595 #### [facility] [address] [place] [address], [facility] Basophils (Bld) [#/Vol] 0.0 10*3/uL Normal 0.0-0.2 [facility] Comment on above: Performed By: #### 3 1595 #### [facility] [address] [place] [address], [facility] Basophils/100 WBC (Bld) 0.7 % Normal 0.0-1.0 [facility] Comment on above: Performed By: #### 3 1595 #### [facility] [address] [place] [address], [facility] Eosinophils (Bld) [#/Vol] 0.0 10*3/uL Normal 0.0-0.5 [facility] Comment on above: Performed By: #### 3 1595 #### [facility] [address] [place] [address], [facility] Eosinophils/100 WBC (Bld) 0.7 % Normal 0.0-6.0 [facility] Comment on above: Performed By: #### 3 1595 #### [facility] [address] [facility]. [address] Erythrocyte distribution width (RBC) [Ratio] 13.9 % Normal 11.5-15.0 [facility] Comment on above: Performed By: #### 3 1595 #### [facility] [address] Hematocrit (Bld) [Volume fraction] 40.3 % Normal 36.0-45.0 [facility] Comment on above: Performed By: #### 3 1595 #### [facility] [address] [facility] [address] Hemoglobin (Bld) [Mass/Vol] 12.6 g/dL Normal 12.0-15.0 [facility] Comment on above: Performed By: #### 3 1595 #### [facility] [address] [facility] [place] [address], [facility] IMMATURE GRANS 0.4 % Normal 0.0-1.0 [facility] Comment on above: Performed By: #### 3 1595 #### [facility] [address] [place] [address], [facility] Lymphocytes (Bld) [#/Vol] 1.2 10*3/uL Normal 1.2-4.0 [facility] Comment on above: Performed By: #### 3 1595 #### [facility] [address] [place] [address], [facility] Lymphocytes/100 WBC (Bld) 45.0 % Normal 20.0-45.0 [facility] Comment on above: Performed By: #### 3 1595 #### [facility] [address] [place] [address], [facility] MCH (RBC) [Entitic mass] 29.7 pg Normal 27.0-33.0 [facility] Comment on above: Performed By: #### 3 1595 #### [facility] 3000 [facility] [place] [address], [facility] MCHC (RBC) [Mass/Vol] 31.3 g/dL Low 32.0-35.0 [facility] Comment on above: Performed By: #### 3 1595 #### [facility] [address] [facility] [place] [address], [facility] MCV (RBC) [Entitic vol] 95.0 fL Normal 82.0-98.0 [facility] Comment on above: Performed By: #### 3 1595 #### [facility] [address] [place] [address], [facility] Monocytes (Bld) [#/Vol] 0.3 10*3/uL Normal 0.1-1.0 [facility] Comment on above: Performed By: #### 3 1595 #### [facility] [address] [facility] [place] [address], [facility] MONOS 9.3 % Normal 5.0-12.0 [facility] Comment on above: Performed By: #### 3 1595 #### [facility] [address] [place] [address], [facility] Neutrophils/100 WBC (Bld) 43.9 % Normal 40.0-72.0 [facility] Comment on above: Performed By: #### 3 1595 #### [facility] [address] [place] [address], [facility] Nucleated RBC/100 WBC (Bld) [Ratio] 0 % Normal 0-0 [facility] Comment on above: Performed By: #### 3 1595 #### [facility] [address] [facility] [place] [address], [facility] PLAT CNT 269 10*3/uL Normal 150-400 [facility] Comment on above: Performed By: #### 3 1595 #### [facility] [address] [facility] [place] [place] [address], [facility] RBC (Bld) [#/Vol] 4.24 10*6/uL Normal 3.80-5.00 [facility] Comment on above: Performed By: #### 3 1595 #### [facility] [address] [facility] [place] [address], [facility] WBC (Bld) [#/Vol] 2.69 10*3/uL Low 4.00-10.60 [facility] Comment on above: Performed By: #### 3 1595 #### [facility] [address] HEMOGLOBIN A1Con 01-18-2021 Glucose [Moles/Vol] 126 mmol/L Normal [facility] Comment on above: Performed By: #### 3 1791 #### [facility] [address] [facility]. [address] HbA1c (Bld) [Mass fraction] 6.0 % Normal 4.0-6.0 [facility] Comment on above: Performed By: #### 3 1791 #### [facility] [address] PROTHROMBIN TIMEon 1 INR Coag (PPP) [Relative time] 1.04 {INR} Normal 0.91-1.16 [facility] Comment on above: Result Comment: ACCC P RECOMMENDED INR FOR WARFARIN THERAPY --------- ------- CONDITION INR PROPHYLAXIS OF VENOUS THROMBOSIS 2-3 (HIGH-RISK SURGERY) TREATMENT OF VENOUS THROMBOSIS 2-3 TREATMENT OF PULMONARY EMBOLISM 2-3 PREVENTION OF SYSTEMIC EMBOLISM: 2-3 ACUTE MYOCARDIAL INFARCTION TISSUE HEART VALVES VALVULAR HEART DISEASE ATRIAL FIBRILLATION RECURRENT SYSTEMIC EMBOLISM MECHANICAL HEART VALVE 2.5-3.5 FROM: ORAL ANTICOAGULANTS. MECHANISM OF ACTION, CLINICAL EFFECTIVENESS, AND OPTIMAL THERAPEUTIC RANGE. CHEST 1995;108:231S-246S. Performed By: #### 3 1595 #### [facility] [address] PT Coag (PPP) [Time] 13.6 s Normal 12.3-14.8 [facility] Comment on above: Result Comment: ALL RESULTS MUST BE INTERPRETED WITH RESPECT TO BLOOD DRAWING ARTIFACT OR DILUTION ERROR OF ANTICOAGULANT AT THE TIME OF SAMPLING. Performed By: #### 3 0135 #### [facility] [address] TYPE AND SCREENon 01-18-2021 ABO INTERPRETATION O Normal [facility] Comment on above: Performed By: #### 3 1595 #### [facility] [address] [place] [address], [facility] RH INTERPRETATION Positive Normal [facility] Comment on above: Performed By: #### 3 1595 #### [facility] [address] [place] [address], [facility] URINALYSIS REFLEXon 01-19-20 Appearance (U) SL CLOUDY Abnormal CLEAR [facility] Comment on above: Performed By: #### 3 0965 #### [facility] [address] [place] [address], [place] Bilirubin Ql (U) Negative Normal NEGATIVE [facility] Comment on above: Performed By: #### 3 0965 #### [facility] [address] [place] [address], [place] Color (U) YELLOW Normal YELLOW [facility] Comment on above: Performed By: #### 3 0965 #### [facility] [address] [place] [address], [place] EPIS MOD Abnormal FEW,OCC,NONE SEEN [facility] Comment on above: Performed By: #### 3 0965 #### [facility] [address] [place] [address], [place] Glucose Ql (U) Negative Normal NEGATIVE [facility] Comment on above: Performed By: #### 3 0965 #### [facility] [address] [place] [address], [place] Hemoglobin Ql (U) Negative Normal NEGATIVE [facility] Comment on above: Performed By: #### 3 0965 #### [facility] [address] [place] [address], [place] Hyaline casts LM Ql (Urine sed) 3 /LPF Abnormal NONE SEEN [facility] Comment on above: Performed By: #### 3 0965 #### [facility] [address] [place] [address], [place] KETONE Negative Normal NEGATIVE [facility] Comment on above: Performed By: #### 3 0965 #### [facility] [address] [place] [address], [place] LEUK SOPHIA TRACE Abnormal NEGATIVE [facility] Comment on above: Performed By: #### 3 0965 #### [facility] [address] [place] [address], [place] MUCUS THREADS FEW Abnormal NONE SEEN [facility] Comment on above: Performed By: #### 3 0965 #### [facility] [address] [facility] [place] [address], [facility] Nitrite Ql (U) Negative Normal NEGATIVE [facility] Comment on above: Performed By: #### 3 0965 #### [facility] [address] [facility] [place] [address], [facility] pH (U) 7.0 [pH] Normal 5.0-8.0 [facility] Comment on above: Performed By: #### 3 0965 #### [facility] [address] [place] [address], [facility] Protein Ql (U) Negative Normal NEGATIVE [facility] Comment on above: Performed By: #### 3 0965 #### [place] [address], [facility] RBC 0-2 Abnormal NONE SEEN [facility] Comment on above: Performed By: #### 3 0965 #### [facility] [address] SPEC GRAV 1.023 High 1.015-1.020 [facility] Comment on above: Performed By: #### 3 0965 #### [place] [address], [facility] WBC UA 0-2 Abnormal NONE SEEN [facility] Comment on above: Performed By: #### 3 0965 #### [address] MRI KNEE WO CONTRAST RIGHTon 09-08-2020 MRI KNEE WO CONTRAST RIGHT [facility] Department of Radiology [address] [place] [address] [id number] ======== Patient Name: NAVDEEP PALMA : 1975 Sex: F Age: Race: Black Pt. Location: Patient Status: D Ordered Date: 08/16/2020 4:30:00 PM Completed Date: 09/08/2020 01:44 PM Requesting Provider: KINGS MIRANDA Attending Provider: KINGS MIRANDA Report Copy To: Signs & Symptoms: M17.11 Unilateral primary osteoarthritis, right knee I10 History: Mayuri, PHONE:[phone],*NE EDS ORTHO F/U APPT. NO METAL [facility] no pc required PER JOSH REF# [id number] 08/20/20 [id number] *KW Comments: Evaluate Exam: MRI KNEE WO [...] degeneration of the ACL. Electronically signed: Bin Frazier. Transcribed by: [email or web address], User Resident: Electronically Signed by: BIN FRAZIER @ 09/09/2020 04:53 PM Normal [facility] Comment on above: Order Comment: Evalu ate KNEE LEFT 4VWSon 08-16-2020 KNEE LEFT 4VWS [facility] Department of Radiology [address] [place] [phone] ======== Patient Name: NAVDEEP PALMA : 1975 Sex: F Age: Race: Black Pt. Location: 84 Patient Status: O Ordered Date: 08/16/2020 9:55:00 AM Completed Date: 08/16/2020 10:19 AM Requesting Provider: KINGS MIRANDA Attending Provider: KINGS MIRANDA Report Copy To: Signs & Symptoms: M25.569 Pain in unspecified knee I10 History: Eugene Comments: Evaluate Exam: KNEE LEFT 4VWS ======== [...] angulation Electronically signed: Gualberto Worthington. Transcribed by: [email or web address], User Resident: Electronically Signed by: GUALBERTO WORTHINGTON @ 08/16/2020 06:23 PM Normal [facility] Comment on above: Order Comment: Evalu ate KNEE RIGHT 4 [facility] 1 KNEE RIGHT 4 [facility] Department of Radiology [address] [place] [phone] ======== Patient Name: NAVDEEP PALMA : 1975 Sex: F Age: Race: Black Pt. Location: 84 Patient Status: O Ordered Date: 08/16/2020 9:55:00 AM Completed Date: 08/16/2020 10:19 AM Requesting Provider: KINGS MIRANDA Attending Provider: KINGS MIRANDA Report Copy To: Signs & Symptoms: M25.569 Pain in unspecified knee I10 History: Mayuri Comments: Evaluate Exam: KNEE RIGHT 4 VWS ======== KNEE RIGHT 4 VWS 08/16/2020 10:19 AM CLINICAL INDICATIONS: M25.569 Pain [...] angulation Electronically signed: Gualberto Worthington. Transcribed by: [email or web address], User Resident: Electronically Signed by: GUALBERTO WORTHINGTON @ 08/16/2020 06:23 PM Normal [facility] Comment on above: Order Comment: Evalu ate XR WRIST LT MIN 3 Von 2017 XR WRIST LT MIN [address] [place] [address] Patient: NAVDEEP PALMA Exam Date: 03/04/2018 : 1975 Gender:F Ordering : DR SALLY WELCH . Admission #: [id number] Family : Order #: [id number] CLICK HERE TO VIEW EXAM RADIOLOGY REPORT [...] No fracture or dislocation. Dictated by: Jc Wilder M.D. on 03/04/2018 at 23:39 Approved by: Jc Wilder M.D. on 03/04/2018 at 23:45 Normal [facility] Vital Signs Date Time Vital Sign Value Performing Clinician Yaritza jaeger 02-04-2024 14:19-0500 Body mass index (BMI) [Ratio] 50.09 kg/m2 Ainsley ELDRIDGE Work Phone: [facility] 02-04-2024 14:19-0500 Body weight 145.06 kg Ainsley ELDRIDGE Work Phone: [facility] 02-04-2024 14:19-0500 Diastolic blood pressure 68 mm[Hg] Ainsley ELDRIDGE Work Phone: [facility] 02-04-2024 14:19-0500 Systolic blood pressure 120 mm[Hg] Ainsley ELDRIDGE Work Phone: [facility] 01-29-2024 15:26-0500 Body height 167.6 cm Jordyn Moreira MD Work Phone: [facility] 01-29-2024 15:26-0500 Body mass index (BMI) [Ratio] 51.81 kg/m2 Jordyn Moreira MD Work Phone: [facility] 01-29-2024 15:26-0500 Body weight 145.6 kg Jordyn Moreira MD Work Phone: [facility] 01-29-2024 15:26-0500 Diastolic blood pressure 86 mm[Hg] Jordyn Moreira MD Work Phone: [facility] 01-29-2024 15:26-0500 Heart rate 94 /min Jordyn Moreira MD Work Phone: [facility] 01-29-2024 15:26-0500 SaO2% (BldA) [Mass fraction] 96 % Jordyn Moreira MD Work Phone: [facility] 01-29-2024 15:26-0500 Systolic blood pressure 114 mm[Hg] Jordyn Moreira MD Work Phone: [facility] 01-10-2024 10:00-0400 Body height 167.6 cm Neena Del Castillo DO Work Phone: [facility] 01-10-2024 10:00-0400 Body mass index (BMI) [Ratio] 51.99 kg/m2 Neena Del Castillo DO Work Phone: [facility] 01-10-2024 10:00-0400 Body weight 146.1 kg Neena Del Castillo DO Work Phone: [facility] 01-10-2024 10:00-0400 Diastolic blood pressure 88 mm[Hg] Neena Del Castillo DO Work Phone: [facility] 01-10-2024 10:00-0400 Heart rate 85 /min Neena Del Castillo DO Work Phone: [facility] 01-10-2024 10:00-0400 SaO2% (BldA) [Mass fraction] 94 % Neena Del Castillo DO Work Phone: [facility] 01-10-2024 10:00-0400 Systolic blood pressure 149 mm[Hg] Neena Del Castillo DO Work Phone: [facility] 01-07-2024 09:33-0400 Body mass index (BMI) [Ratio] 53.75 kg/m2 Bobbi Ortiz MD Work Phone: [facility] 01-07-2024 09:33-0400 Body weight 146.51 kg Bobbi Ortiz MD Work Phone: [facility] 01-07-2024 09:33-0400 Diastolic blood pressure 98 mm[Hg] Bobbi Ortiz MD Work Phone: [facility] 01-07-2024 09:33-0400 Heart rate 106 /min Bobbi Ortiz MD Work Phone: [facility] 01-07-2024 09:33-0400 Systolic blood pressure 153 mm[Hg] Bobbi Ortiz MD Work Phone: [facility] 12-19-2023 10:26-0400 Body height 165.1 cm Bong Phelan GRINDING OPERATOR-WALL TO WALL CARPET INSTALLER Work Phone: [facility] 12-19-2023 10:26-0400 Body mass index (BMI) [Ratio] 54.02 kg/m2 Bong Leachight GRINDING OPERATOR-[employer] TO [employer] INSTALLER Work Phone: [facility] 12-19-2023 10:26-0400 Body weight 147.24 kg Bong Leachight GRINDING OPERATOR-W[employer] TO [employer] INSTALLER Work Phone: [facility] 12-19-2023 10:26-0400 Diastolic blood pressure 90 mm[Hg] Bong Leachight GRINDING OPERATOR-WALL TO [employer]PET INSTALLER Work Phone: [facility] 12-19-2023 10:26-0400 Heart rate 66 /min Bong Leachight GRINDING OPERATOR-W[employer] TO [employer]PET INSTALLER Work Phone: [facility] 12-19-2023 10:26-0400 Respiratory rate 18 /min Bong Leachight GRINDING OPERATOR-W[employer] TO [employer] INSTALLER Work Phone: [facility] 12-19-2023 10:26-0400 SaO2% (BldA) [Mass fraction] 91 % Bong Leachight GRINDING OPERATOR-WALL TO [employer]PET INSTALLER Work Phone: [facility] 12-19-2023 10:26-0400 Systolic blood pressure 116 mm[Hg] Bong Leachight GRINDING OPERATOR-WALL TO [employer]ALL [employer]PET INSTALLER Work Phone: [facility] 11-16-2023 14:20-0400 Body temperature 98 [degF] GRINDING OPERATOR Jordyn Anglim Work Phone: [facility] 11-16-2023 14:20-0400 Diastolic blood pressure 68 mm[Hg] GRINDING OPERATOR Jordyn Anglim Work Phone: [facility] 11-16-2023 14:20-0400 Heart rate 92 /min GRINDING OPERATOR Jordyn Anglim Work Phone: [facility] 11-16-2023 14:20-0400 Respiratory rate 16 /min GRINDING OPERATORMare Barrera Work Phone: [facility] 11-16-2023 14:20-0400 SaO2% (BldA) [Mass fraction] 97 % GRINDING OPERATORMare Barrera Work Phone: [facility] 11-16-2023 14:20-0400 Systolic blood pressure 143 mm[Hg] GRINDING OPERATORMare Barrera Work Phone: [facility] 11-15-2023 07:47-0400 Body height 167.64 cm GRINDING OPERATORMare Barrera Work Phone: [facility] 11-13-2023 05:56-0400 Inhaled oxygen flow rate 1.5 L/min GRINDING OPERATORMare Barrera Work Phone: [facility] 11-11-2023 04:42-0400 Body weight 160 kg GRINDING OPERATORMare Barrera Work Phone: [facility] 02-07-2022 17:15-0500 Body height 167.64 cm Alesha June Other [facility] Other 02-07-2022 17:15-0500 Body temperature 98 [degF] Alesha June Other [facility] Other 02-07-2022 17:15-0500 Diastolic blood pressure 106 mm[Hg] Alesha Watkins Other [facility] Other 02-07-2022 17:15-0500 Respiratory rate 18 /min Alesha Watkins Other [facility] Other 02-07-2022 17:15-0500 SaO2% (BldA) [Mass fraction] 99 % Alesha Watkins Other [facility] Other 02-07-2022 17:15-5233 Systolic blood pressure 143 mm[Hg] Alesha Watkins Other [facility] Other Encounters Encounter Date Encounter Type Care Provider Facility Start: 02-04-2024 End: 02-04-2024 Bamboo flowsheet Ainsley ELDRIDGE Work Phone: [facility] Start: 02-04-2024 End: 02-04-2024 Bamboo flowsheet Ainsley ELDRIDGE Work Phone: [facility] Start: 02-04-2024 End: 02-04-2024 ambulatory AINSLEY STACK Not Available Start: 02-04-2024 End: 02-04-2024 Office outpatient visit 15 minutes Ainsley ELDRIDGE Work Phone: [facility] Comment on above: Encounter for weight loss counseling Start: 02-01-2024 End: 02-01-2024 Telephone encounter Lalo Patiño CMA [facility] Start: 01-30-2024 End: 01-30-2024 Office outpatient visit 25 minutes Bong Phelan APRN-WALL TO [employer] INSTALLER Work Phone: [facility] Comment on above: Other migraine witho ut status migrainosus, not intractable (Primary Dx); Muscle spasm; Primary osteoarthritis of left knee Start: 01-30-2024 End: 01-30-2024 ambulatory BONG PHELAN [facility] Start: 01-29-2024 End: 01-29-2024 ambulatory JORDYN MOREIRA [facility] Start: 01-29-2024 End: 01-29-2024 Office outpatient visit 15 minutes Jordyn Moreira MD Work Phone: [facility] Comment on above: Essential hypertensi on (Primary Dx) Start: 01-28-2024 End: 01-28-2024 Telephone encounter Antoinette Syed CMA [facility] Start: 01-25-2024 End: 01-25-2024 ambulatory NEENA DEL CASTILLO [facility] Start: 01-17-2024 End: 01-17-2024 [facility] Start: 01-14-2024 End: 01-14-2024 ambulatory [facility] Start: 01-11-2024 End: 01-11-2024 ambulatory [facility] Start: 01-10-2024 End: 01-10-2024 ambulatory [facility] Start: 01-10-2024 End: 01-10-2024 Office outpatient visit 25 minutes [facility] DO Work Phone: [facility] Comment on above: Mild intermittent as thma without complication (Primary Dx); Other acute pulmonary embolism, unspecified whether acute cor pulmonale present (CMS-HCC); Right lower lobe lung mass; Pulmonary hypertension (CMS-HCC) Start: 01-07-2024 End: 01-07-2024 ambulatory BOBBI ORTIZ [facility] Start: 01-07-2024 End: 01-07-2024 Office outpatient visit 25 minutes Bobbi Ortiz MD Work Phone: [facility] Comment on above: Acute pulmonary embo lism with acute cor pulmonale, unspecified pulmonary embolism type (CMS-HCC) (Primary Dx) Start: 12-26-2023 End: 12-26-2023 Orders Only Bong Phelan GRINDING OPERATOR-W[employer]PET INSTALLER Work Phone: [facility] Comment on above: Primary osteoarthrit is of left knee Start: 12-22-2023 End: 12-22-2023 Refill Bong Phelan GRINDING OPERATOR-WALL TO WALL CARPET INSTALLER Work Phone: [facility] Comment on above: Gastroesophageal ref lux disease without esophagitis Start: 12-21-2023 End: 12-21-2023 Orders Only Bong Zhane GRINDING OPERATOR-WALL TO WALL CARPET INSTALLER Work Phone: [facility] Comment on above: Primary osteoarthrit is of left knee (Primary Dx) Start: 12-19-2023 End: 12-19-2023 ambulatory [facility] Start: 12-19-2023 End: 12-19-2023 Transitional care manage srvc 7 day discharge Bong Phelan GRINDING OPERATOR-WALL TO WALL CARPET INSTALLER Work Phone: [facility] Comment on above: Other acute pulmonar y embolism, unspecified whether acute cor pulmonale present (CMS-HCC) (Primary Dx) Start: 12-18-2023 End: 12-18-2023 ambulatory [facility] Start: 12-14-2023 End: 12-14-2023 Telephone encounter Kathy Cabrera [facility] Comment on above: medication order Start: 12-13-2023 End: 12-13-2023 Telephone encounter Sarah Ventura RN Work Phone: [facility] Start: 12-13-2023 End: 12-14-2023 Evaluation and management of inpatient LUDWIN CONSTANTINE Holman [facility] Start: 12-12-2023 End: 12-13-2023 Emergency department patient visit [facility] Start: 12-10-2023 End: 12-25-2023 Telephone encounter Jenifer Boothe RN [facility] Comment on above: Transition Of Care Start: 12-10-2023 End: 12-10-2023 ambulatory CHITO TORO [facility] Start: 12-07-2023 End: 12-09-2023 Evaluation and management of inpatient SIMONA LOGAN [facility] Start: 12-06-2023 End: 12-07-2023 Emergency department patient visit [facility] Start: 12-06-2023 End: 12-06-[address] [facility] Start: 12-05-2023 ambulatory [facility] Start: 11-19-2023 End: 11-19-2023 ambulatory [facility] Start: 11-14-2023 Non-patient / Non-visit GRINDING OPERATOR Maida Barrera Work Phone: [facility] Work Phone: Start: 11-07-2023 Non-patient / Non-visit GRINDING OPERATOR Maida Deutschlim Work Phone: [facility] Work Phone: Start: 11-06-2023 End: 11-16-2023 Evaluation and management of inpatient GRINDING OPERATOR Jordyn Barrera Work Phone: [facility] Work Phone: Start: 10-31-2023 Evaluation and manag ement of inpatient [facility] Start: 10-31-2023 ambulatory [facility] Start: 10-31-2023 End: 11-06-2023 Evaluation and management of inpatient [facility] Start: 10-30-2023 End: 10-30-2023 ambulatory GINA BOURGEOIS [facility] Start: 10-22-2023 Encounter for other preprocedural examination [facility] Start: 10-22-2023 End: 10-22-2023 ambulatory [facility] Start: 09-27-2023 Encounter for preprocedural cardiovascular examination JORDYN Maida [facility] Start: 09-27-2023 End: 09-27-2023 ambulatory JORDYN Bey [facility] Start: 09-27-2023 Encounter for other preprocedural examination JORDYN Maida [facility] Start: 09-27-2023 End: 01-29-2024 Patient encounter status Sarah Ventura RN Work Phone: [facility] Start: 08-17-2023 Encounter for genera l adult medical examination without abnormal findings [facility] Start: 08-17-2023 End: 08-20-[address] [facility] Start: 08-16-2023 End: 08-16-2023 ambulatory [facility] Start: 08-16-2023 End: 08-16-2023 ambulatory RAMAN RIVERA Not Available Start: 08-16-2023 End: 08-16-2023 ambulatory [facility] Start: 08-16-2023 Encounter for genera l adult medical examination without abnormal findings [facility] Start: 08-07-2023 End: 08-07-2023 ambulatory RAMAN RIVERA Not Available Start: 08-02-2023 End: 08-02-2023 [facility] Start: 07-23-2023 End: 07-23-2023 [facility] Start: 07-18-2023 End: 07-18-2023 ambulatory AINSLEY STACK Not Available Start: 07-12-2023 End: 07-12-2023 ambulatory [facility] Start: 07-12-2023 End: 07-12-2023 ambulatory [facility] Start: 06-18-2023 Orders Only Bong Harriswr ight GRINDING OPERATOR-WALL TO WALL CARPET INSTALLER Work Phone: [facility] Start: 06-12-2023 End: 06-12-2023 ambulatory BONG [facility] Start: 06-11-2023 Orders Only Bong Stevenwr ight GRINDING OPERATOR-WALL TO WALL CARPET INSTALLER Work Phone: [facility] Comment on above: Pre-diabetes (Primar y Dx) Other forms of syste zev lupus erythematosus, unspecified organ involvement status ([facility]) Start: 06-01-2023 Refill Bong Harriswr ight GRINDING OPERATOR-WALL TO WALL CARPET INSTALLER Work Phone: [facility] Comment on above: Gastroesophageal ref lux disease without esophagitis Start: 05-24-2023 Orders Only Bong Leach ight GRINDING OPERATOR-WALL TO WALL CARPET INSTALLER Work Phone: [facility] Comment on above: Chronic pain of left knee (Primary Dx); Arthritis of left knee Start: 05-21-2023 Refill Barak Sandhu [facility] Start: 05-17-2023 Refill Xochitl Muir [facility] Comment on above: Gastroesophageal ref lux disease without esophagitis Start: 05-15-2023 Refill Bong Leach ight GRINDING OPERATOR-WALL TO WALL CARPET INSTALLER Work Phone: [facility] Comment on above: Pre-diabetes Start: 05-04-2023 Orders Only Bong Leach ight GRINDING OPERATOR-WALL TO WALL CARPET INSTALLER Work Phone: [facility] Comment on above: Hepatic steatosis (P rimary Dx) Epigastric pain (Vesna velia Dx); Hepatic steatosis; Other forms of systemic lupus erythematosus, unspecified organ involvement status ([facility] Start: 05-02-2023 End: 05-02-2023 ambulatory BONG HARRISWRIGHT [facility] Start: 05-01-2023 Orders Only Bong fieldst GRINDING OPERATOR-WALL TO WALL CARPET INSTALLER Work Phone: [facility] Start: 04-30-2023 End: 04-30-2023 Orders Only Bong Phelan GRINDING OPERATOR-WALL TO WALL CARPET INSTALLER Work Phone: [facility] Comment on above: Acute cystitis witho ut hematuria (Primary Dx) Start: 04-30-2023 End: 04-30-2023 Office outpatient visit 25 minutes Darlin Wilkerson MD Work Phone: [facility] Comment on above: Lupus ([facility]) (Vesna velia Dx); Lumbosacral spondylosis without myelopathy; Class 3 severe obesity due to excess calories without serious comorbidity with body mass index (BMI) of 50.0 to 59.9 in adult ([facility]); Primary osteoarthritis of left knee; Medication monitoring encounter Start: 04-24-2023 Orders Only Bong fieldst GRINDING OPERATOR-WALL TO WALL CARPET INSTALLER Work Phone: [facility] Comment on above: Acute cystitis witho ut hematuria (Primary Dx) Start: 04-06-2023 End: 04-06-[address] [facility] Start: 04-06-2023 End: 04-06-2023 Office outpatient visit 15 minutes Bong Leachight GRINDING OPERATOR-WALL TO WALL CARPET INSTALLER Work Phone: [facility] Comment on above: Gastroesophageal ref lux disease without esophagitis (Primary Dx); Urinary frequency; Chest discomfort; Pre-diabetes Start: 04-06-2023 End: 04-06-2023 ambulatory [facility] Start: 03-09-[address] [facility] Comment on above: Pre-diabetes Start: 03-08-2023 Orders Only Bong Leach ight GRINDING OPERATOR-WALL TO WALL CARPET INSTALLER Work Phone: [facility] Comment on above: Other forms of syste zev lupus erythematosus, unspecified organ involvement status ([facility]) (Primary Dx); Pre-diabetes Start: 03-02-2023 Orders Only Bong fieldst GRINDING OPERATOR-WALL TO WALL CARPET INSTALLER Work Phone: [facility] Comment on above: Pre-diabetes (Primar y Dx) Start: 03-01-2023 End: 03-01-[address] [facility] Start: 03-01-2023 End: 03-01-2023 ambulatory [facility] Start: 11-10-2022 End: 11-11-2022 ambulatory EP TECH Silvia Sherman Facility:[facility] Start: 10-24-2022 End: 10-25-2022 ambulatory Velia LUND Facility:[facility] Start: 06-29-2022 End: 06-29-2022 ambulatory Lynda Pena Other [facility] Other Start: 04-20-2023 Telephone encounter Lynda Pena [facility] [address] Start: 06-28-2022 End: 06-28-2022 ambulatory Shilpi Nguyen Other [facility] Other Start: 06-28-2022 Telephone encounter Shilpi Nguyen [facility] Start: 02-07-2022 End: 02-07-2022 ambulatory Alesha June Other [facility] Other Start: 02-07-2022 Office outpatient vi sit 15 minutes Alesha June [facility] Start: 02-09-2021 End: 02-10-2021 ambulatory LYSSA PARK Facility:[facility] Start: 03-04-2018 End: 03-05-2018 Patient encounter procedure SALLY WELCH Facility: Procedures Date Procedure Procedure Detail Performing Clinician Start: 01-29-2024 Follow-up visit Follow-up JORDYN MOREIRA Start: 01-07-2024 Follow-up visit Follow-up BOBBI ORTIZ Start: 12-19-2023 Adult depression scr eening assessment Bong Phelan GRINDING OPERATOR-WALL TO WALL CARPET INSTALLER Work Phone: Start: 12-13-2023 Adult depression scr eening assessment Kathy Cabrera Start: 12-07-2023 Adult depression scr eening assessment Sarah Ventura RN Work Phone: Start: 11-07-2023 X-ray of left knee YULISA Barrera Work Phone: Start: 07-18-2023 Microscopic observat ion [Identifier] in Cervix by Cyto stain Ainsley ELDRIDGE Work Phone: Start: 03-01-2023 Cyclic citrullinated peptide antibody BONG PHELAN Comment on above: Result Comment: Interpretation-------- <3 Negative >=3 Positive Performed By: #### C [facility], 81356-2, C34, 82153-4, CMP, 1988-5, ENAP, 84268-8, 61416-3, 96873-2, 5130-0, 33451-0 #### [facility] ([id number]) [address], [address] [place] [address] #### 25526-4, NAIFA #### [facility] ([id number]) [address] [facility] [place] [address] Start: 11-02-2022 Adult depression scr eening assessment Bongbridget Phelan GRINDING OPERATOR-WALL TO WALL CARPET INSTALLER Work Phone: Start: 01-18-2021 Antibody screen LYSSA MACEDOLISA Comment on above: Performed By: #### [id number] #### [facility] [address] [place] [address], [facility] Start: 06-22-2017 Mammography Ainsley ELDRIDGE Work Phone: Plan of Treatment Date Care Activity Detail Author Start: 05-05-2029 DTaP,Tdap and Td Vaccines (3 - Td or Tdap) DTaP,Tdap and Td Vaccines (3 - Td or Tdap) [facility] Start: 05-05-2029 DTaP,Tdap and Td Vaccines (4 - Td or Tdap) DTaP,Tdap and Td Vaccines (4 - Td or Tdap) [facility] Start: 07-17-2026 Screening for malignant neoplasm of cervix [facility] Start: 01-29-2025 Tobacco Screening Tobacco Screening [facility] Start: 01-28-2025 Adult BMI Screening Adult BMI Screening [facility] Start: 01-22-2025 Adult BMI Screening Adult BMI Screening [facility] Start: 01-09-2025 Adult BMI Screening Adult BMI Screening [facility] Start: 01-09-2025 Tobacco Screening Tobacco Screening [facility] Start: 12-18-2024 Adult BMI Screening Adult BMI Screening [facility] Start: 12-18-2024 Depression Screening Depression Screening [facility] Start: 12-18-2024 Tobacco Screening Tobacco Screening [facility] Start: 12-12-2024 Adult BMI Screening Adult BMI Screening [facility] Start: 12-12-2024 Depression Screening Depression Screening [facility] Start: 12-12-2024 Tobacco Screening Tobacco Screening [facility] Start: 12-06-2024 Depression Screening Depression Screening [facility] Start: 12-06-2024 Tobacco Screening Tobacco Screening [facility] Start: 07-28-2024 End: 07-28-2024 Patient encounter procedure 07/28/2024 11:00 AM EDT Office Visit [facility] [address] [place] [address] Raman Rivera, DO [address] [place] [address] [facility] Start: 07-07-2024 End: 07-07-2024 Patient encounter procedure [facility] Start: 04-10-2024 End: 04-10-2024 Patient encounter procedure 04/10/2024 3:30 PM EST Office Visit [facility] [address] [place] [address] Neena Del Castillo, DO [address] [address] [facility] Start: 04-06-2024 Tobacco Screening Tobacco Screening [facility] Start: 03-01-2024 Tobacco Screening Tobacco Screening [facility] Start: 02-15-2024 End: 02-15-2024 Patient encounter procedure 02/15/2024 9:30 AM EST Appointment [facility] [address] [place] [address] Neena Del Castillo, DO [address] [address] [facility] Start: 02-11-2024 End: 02-11-2024 Patient encounter procedure 02/11/2024 2:20 PM EST Procedure Visit [facility] [address] [place] [phone] Raman Rivera DO [address] [place] [address] [facility] Start: 02-09-2024 End: 01-09-2025 Echo complete W/O contrast Echo complete W/O contrast Echocardiography Routine Other acute pulmonary embolism, unspecified whether acute cor pulmonale present (CMS-HCC) Pulmonary hypertension ([facility]) Expected: 02/09/2024 (Approximate), Expires: 01/09/2025 [employer] Work Phone: Comment on above: Expected: 02/09/2024 (Approximate), Expi res: 01/09/2025 Start: 01-29-2024 End: 01-29-2024 Patient encounter procedure 01/29/2024 3:15 PM EST Office Visit [facility] [address] [place] [address] Jordyn Moreira MD [address] [place] [address] [facility] Start: 01-11-2024 End: 01-11-2024 Telemedicine consultation with patient 01/11/2024 2:00 PM EDT Telemedicine [facility] [address] [place] [address] Bong Phelan, GRINDING OPERATOR-WALL TO WALL CARPET INSTALLER [address] [place] [address] [facility] Start: 01-10-2024 End: 01-09-2025 PT Skull base to mid-thigh PET CT skull to thigh Imaging Routine Right lower lobe lung mass Expected: 01/10/2024, Expires: 01/09/[address] [facility] Comment on above: Expected: 01/10/2024, Expires: Start: 01-10-2024 End: 01-10-2024 Patient encounter procedure 01/10/2024 9:45 AM EDT Office Visit [facility] [address] [address] Neena Del Castillo, DO [address] [address] [facility] Start: 01-07-2024 End: 01-07-2024 Patient encounter procedure 01/07/2024 9:15 AM EDT Office Visit [facility] [place] [address] Bobbi Ortiz MD [address] [facility] [address] [place] [address] [id number] [phone] [facility] Start: 12-19-2023 End: 12-19-2023 Patient encounter procedure 12/19/2023 10:15 AM EDT Office Visit [facility] [address] [place] [address] Bong Phelan APRN-WALL TO WALL CARPET INSTALLER [address] [place] [address] [facility] Start: 12-07-2023 Adult BMI Screening Adult BMI Screening [facility] Start: 11-16-2023 [facility] Start: 11-11-2023 COVID-19 Vaccine ( season) COVID-19 Vaccine ( season) [facility] Start: 11-11-2023 COVID-19 Vaccine ( season) COVID-19 Vaccine ( season) [facility] Start: 11-11-[address] [facility] Start: 11-06-2023 Hospital admission [facility] Start: 11-03-2023 Depression Screening Depression Screening [facility] Start: 09-02-2023 Administration of varicella zoster vaccine Zoster (Shingles) Vaccine (1 of 2) [facility] Start: 05-24-2023 End: 05-23-2024 XR Knee - left 3 Views X-ray knee left 3 views Imaging Routine Chronic pain of left knee Expected: 05/24/2023, Expires: 05/23/2024 [email or web address] Work Phone: Comment on above: Expected: 05/24/2023, Expires: 5 Start: 05-04-2023 End: 05-04-2024 MRCP Abdomen WO and W contrast IV MRCP with MRI abdomen with and without contrast Imaging Routine Epigastric pain Hepatic steatosis Expected: 05/04/2023, Expires: 05/04/2024 [email or web address] Work Phone: Comment on above: Expected: 05/04/2023, Expires: 5 Start: 05-01-2023 End: 05-01-2024 CT Abdomen and Pelvis WO contrast CT abdomen and pelvis without contrast Imaging STAT Acute cystitis without hematuria Expected: 05/01/2023, Expires: 05/01/2024 [employer] Work Phone: Comment on above: Expected: 05/01/2023, Expires: 5 Start: 04-30-2023 End: 04-30-2023 Telemedicine consultation with patient 04/30/2023 10:30 AM EST Telemedicine [facility] [address] [id number] Darlin Wilkerson MD [address] [address] [facility] Start: 11-10-2022 COVID-19 Vaccine () COVID-19 Vaccine () [facility] Start: 11-10-2022 Influenza vaccination Influenza Vaccine [facility] Start: 10-17-2022 Adult BMI Follow Up Plan Adult BMI Follow Up Plan [facility] Start: 06-22-2018 Screening for malignant neoplasm of breast Mammogram [facility] Start: 09-02-2003 Screening for malignant neoplasm of cervix HPV/Cotest [facility] Start: 09-02-1991 Adult BMI Follow Up Plan Adult BMI Follow Up Plan [facility] Start: 1973 Screening for malignant neoplasm of colon [facility] End: 04-24-2024 Bacteria identified in Urine by Culture Urine culture (clean catch) Microbiology Routine Acute cystitis without hematuria 1 Occurrences starting 04/24/2023 until 04/24/2024 [facility] Comment on above: 1 Occurrences starting 04/24/2023 until 04/24/2024 End: 06-10-2024 Hemoglobin A1c/Hemoglobin.total in Blood Hemoglobin A1c Lab Routine Pre-diabetes 1 Occurrences starting 06/11/2023 until 06/10/2024 [employer] Work Phone: Comment on above: 1 Occurrences starting 06/11/2023 until 06/10/2024 Patient Education Type 2 diabete s Metformin How to Keep Track of Your Blood Sugar Know your Meds [facility] Work Phone: Patient referral [facility] Work Phone: End: 04-24-2024 Urinalysis Urinalysis (clean catch) Lab Routine Acute cystitis without hematuria 1 Occurrences starting 04/24/2023 until 04/24/2024 [employer] Work Phone: Comment on above: 1 Occurrences starting 04/24/2023 until 04/24/2024 [facility] Immunizations Immunization Date Immunization Notes Care Provider Fa cili 01-11-2022 Covid-19, Mrna, Lnp- s, Bivalent, Pf, 50mcg/0.5ml or 25mcg/0.25ml Bong Phelan GRINDING OPERATOR-WALL TO WALL CARPET INSTALLER Work Phone: [facility] 01-11-2022 influenza, injectabl e, quadrivalent, preservative free Bong Phelan GRINDING OPERATOR-WALL TO WALL CARPET INSTALLER Work Phone: [facility] 01-11-2022 influenza virus vaccine, unspecified formulation Bong Zhane GRINDING OPERATOR-WALL TO WALL CARPET INSTALLER Work Phone: [facility] 01-17-2021 influenza virus vaccine, unspecified formulation Sarah Ventura RN Work Phone: [facility] 01-17-2021 influenza, injectabl e, quadrivalent, preservative free Bong Zhane GRINDING OPERATOR-WALL TO WALL CARPET INSTALLER Work Phone: [facility] 07-13-2020 COVID-19, mRNA, LNP- S, PF, 100mcg/0.5mL Dose Bong [place] GRINDING OPERATOR-WALL TO WALL CARPET INSTALLER Work Phone: [facility] 06-15-2020 COVID-19, mRNA, LNP- S, PF, 100mcg/0.5mL Dose Bong [place] GRINDING OPERATOR-WALL TO WALL CARPET INSTALLER Work Phone: [facility] 02-17-2020 influenza virus vaccine, unspecified formulation Sarah Ventura RN Work Phone: [facility] 02-17-2020 Influenza, injectabl e, Madin Ivana Canine Kidney, preservative free, quadrivalent Bong Zhane GRINDING OPERATOR-WALL TO WALL CARPET INSTALLER Work Phone: [facility] 05-05-2019 tetanus toxoid, reduced diphtheria toxoid, and acellular pertussis vaccine, adsorbed [facility] 11-14-2018 tetanus toxoid, reduced diphtheria toxoid, and acellular pertussis vaccine, adsorbed Bong [place] GRINDING OPERATOR-WALL TO WALL CARPET INSTALLER Work Phone: [facility] 07-23-2018 DTaP-hepatitis B and poliovirus vaccine Sarah Ventura RN Work Phone: [facility] 07-23-2018 hepatitis B vaccine, adult dosage Bong Zhane GRINDING OPERATOR-WALL TO WALL CARPET INSTALLER Work Phone: [facility] 01-23-2018 hepatitis B vaccine, adult dosage Bong Phelan GRINDING OPERATOR-WALL TO WALL CARPET INSTALLER Work Phone: [facility] 12-25-2017 hepatitis B vaccine, adult dosage Bong Phelan GRINDING OPERATOR-WALL TO WALL CARPET INSTALLER Work Phone: [facility] Payers Date Payer Category Payer Self-pay [id number] 2022 Medicaid [id number] 2022 Medicaid [id number] 1973 Unknown [id number] 2.16.840.1.926625.3.579.2. 593 1973 Unknown [id number] 2.16.840.1.009100.3.579.2. 647 1973 Unknown [id number] 2.16.840.1.927030.3.579.2. 727 1973 Unknown [id number] 2.16.840.1.411352.3.579.2. 727 1973 Unknown [id number] 2.16.840.1.587938.3.579.2. 1286 1973 Unknown [id number] 2.16.840.1.155393.3.579.2. 1286 1973 Unknown [id number] 2.16.840.1.531498.3.579.2. 1286 1973 Unknown [id number] 2.16.840.1.628449.3.579.2. 1286 1973 Unknown [id number] 2.16.840.1.164989.3.579.2. 1286 1973 Unknown [id number] 2.16.840.1.195561.3.579.2. 1286 1973 Unknown [id number] 2.16.840.1.227106.3.579.2. 1285 1973 Unknown [id number] 2.840.1.854513.3.579.2. 1285 1973 Unknown [id number] 2.840.1.921031.3.579.2. 1285 1973 Unknown [id number] 2.840.1.491756.3.579.2. 1285 1973 Unknown [id number] 2.840.1.382642.3.579.2. 1285 1973 Unknown [id number] .840.1.084895.3.579.2. 1285 1973 Unknown [id number] 2.840.1.772708.3.579.2. 1285 1973 Unknown [id number] 20.1.438458.3.579.2. 1285 1973 Unknown [id number] .840.1.796848.3.579.2. 1285 1973 Unknown [id number] 04.27.830.1.203578.3.579.2. 1285 1973 Unknown [id number] .840.1.894081.3.579.2. 1285 1973 Unknown [id number] 840.1.129113.3.579.2. 1285 1973 Unknown [id number] .840.1.300857.3.579.2. 1285 1973 Unknown [id number] .840.1.260126.3.579.2. 1285 1973 Unknown [id number] .840.1.903398.3.579.2. 1285 1973 Unknown [id number] 2.840.1.011240.3.579.2. 1285 1973 Unknown [id number] 2.16840.1.922029.3.579.2. 1285 1973 Unknown [id number] 2.16840.1.934531.3.579.2. 1285 1973 Unknown [id number] 2.16.840.1.931878.3.579.2. 1285 1973 Unknown [id number] 2.16840.1.706341.3.579.2. 1285 1973 Unknown [id number] 2.16840.1.649228.3.579.2. 1285 1973 Unknown [id number] 2.840.1.881851.3.579.2. 1285 1973 Unknown [id number] 2.840.1.507719.3.579.2. 1285 1973 Unknown [id number] 2.840.1.753454.3.579.2. 1285 1973 Unknown [id number] 2.840.1.928274.3.579.2. 1285 1973 Unknown [id number] 1285 1975 Unknown [id number]. 1285 1975 Unknown [id number] .[id number]. 1285 1975 Unknown [id number] [id number]. 1285 1975 Unknown [id number] [id number]. 1285 1975 Unknown [id number] 2.16840.1.473572.3.579.2. 1285 1975 Unknown [id number] 2.16840.1.269943.3.579.2. 1258 1975 Unknown [id number] 2.16.840.1.875204.3.579.2. 1259 1975 Unknown [id number] [id number]. 1259 1975 Unknown [id number] [id number]. 1259 1959 Private Health Insurance [id number] Private Health Insurance [facility] [id number] Private Health Insurance [facility] PERORA [id number] Unknown [id number] Unknown Jacquelyn BC/BS [id number] Unknown [id number]. 531 Social History Date Type Detail Facility Tobacco smoking status NHIS Unknown if ever smoked [facility] Work Phone: Start: 1975 Sex Assigned At Female F [facility] Start: 03-25-2020 End: 03-01-[address] [facility] Start: 12-29-2021 End: 08-02-2023 Tobacco smoking status NHIS Never smoked tobacco [facility] Start: 12-29-2021 End: 08-02-2023 Tobacco use and exposure Smokeless tobacco non-user [facility] Start: 03-01-2023 End: 04-06-2023 Alcohol intake Current drinker of alcohol (finding) [facility] Start: 03-25-2020 End: 03-01-2023 [address] of [address] [facility] How hard is it for you to pay for the very basics like food, housing, medical care, and heating Somewhat hard [facility] Adolescent depressio n screening assessment 0 [facility] Start: 12-27-2020 Alcohol Comment RARELY [facility] Start: 1975 Sex Assigned At Not on file P [facility] Start: 12-07-2023 End: 01-30-2024 Alcoholic beverage intake Ex-drinker (finding) [facility] Has the electric, gas, oil, or water company threatened to shut off services in your home in past 12Mo No [facility] How often to you hav e a drink containing alcohol? Monthly or less [facility] How many standard drinks containing alcohol do you have on a typical day? [address] [facility] How often do you hav e 6 or more drinks on 1 occasion? Never [facility] Start: 10-15-2014 Sex Female (finding) [facility] Tobacco smoking status NHIS Tobacco smoking consumption unknown [facility] NEGATED: Highlighted rowStart: NINF History of tobacco use Passive smoker [facility] Medical Equipment Procedure Code Equipment Code Equipment Origin al Text Equipment Identifier Dates Start: 11-16-2023 Goals Date Patient Goal Desired Activity /State Personal health goal Comment on above: Formatting of this n ote might be different from the original. Evaluation of progress towards goal: Safe transition to home with family support Personal health goal Comment on above: Formatting of this n ote might be different from the original. Evaluation of progress towards goal: safe discharge home Functional Status Date Assessment Result Facility 11-16-2023 Functional status Patient at [facility] Work Phone: Mental Status Date Assessment Result Facility 11-16-2023 Cognitive function Cognitive Sta tus Patient at Baseline [facility] Work Phone: Clinical Notes 02-07-2022 to 02-04-2024 JAZMYN Phillips - 02/04/2024 1:30 PM ESTTelephone Encounter - Lalo Patiño CMA - 02/01/2024 3:42 PM ESTTelephone Encounter - Lalo Patiño CMA - 02/01/2024 3:42 PM ESTPatient Instructions Note Date & Type Note Facility 02-04-2024 History of Present illness Narrative Reason for Appointment: Patient ID: Navdeep Palma is a 48 y.o. female who presents for discuss weight loss Patient presents today for Weight Management Consult. MEDICATIONS Current Outpatient Medications Medication Instructions albuterol 2.5 mg, Every 4 hours PRN amLODIPine (NORVASC) 10 mg, Daily RT azaTHIOprine (IMURAN) 100 mg, 2 times daily b complex-folic acid tablet 1 tablet, Daily DULoxetine (CYMBALTA) 60 mg, Daily RT hydrOXYzine HCl (Atarax) 50 MG tablet 1 tablet, 3 times daily losartan (COZAAR) 25 mg, Daily RT Magnesium 400 mg, Daily omeprazole (PriLOSEC) [address] capsule 1 capsule, Every morning SUMAtriptan (IMITREX) 6 mg, As needed topiramate (TOPAMAX) 25 mg, Daily Turmeric Curcumin 500 mg, Daily ALLERGIES Allergies Allergen Reactions Flexeril [Cyclobenzaprine] Lisinopril Cough Choctaw [Hydrocodone-Acetaminophen] PROBLEMS Active Ambulatory Problems Diagnosis Date Noted No Active Ambulatory Problems Resolved Ambulatory Problems Diagnosis Date Noted No Resolved Ambulatory Problems Past Medical History: Diagnosis Date Asthma (CMS/HCC) High blood pressure (CMS/HCC) Lupus Migraines (CMS/HCC) Neuropathy HISTORY PAST MEDICAL HISTORY SOCIAL HISTORY Past Medical History: Diagnosis Date Asthma (CMS/HCC) High blood pressure (CMS/HCC) Lupus Migraines (CMS/HCC) Neuropathy Social History Tobacco Use Smoking status: Not on file Smokeless tobacco: Not on file Substance Use Topics Alcohol use: Not on file Drug use: Not on file FAMILY HISTORY Family History Problem Relation Name Age of Onset Lung cancer Mother Pancreatic cancer Mother ALS Brother Migraines Brother SURGICAL HISTORY Past Surgical History: Procedure Laterality Date SECTION, CLASSIC 1988/1990/1992 CT ANGIOGRAM HEART CORONARY 12/12/2023 CT ANGIOGRAM TAVR 12/12/2023 CT ANGIOGRAM HEART CORONARY 12/06/2023 CT ANGIOGRAM TAVR 12/06/2023 GASTRIC BYPASS HYSTERECTOMY KNEE ARTHROPLASTY Right LYMPH NODE BIOPSY US GUIDED BIOPSY SENTINEL NODE CORE SUPERFICIAL NOT FNA 07/03/2017 US GUIDED BIOPSY SENTINEL NODE CORE SUPERFICIAL NOT FNA 07/03/2017 REVIEW OF SYSTEMS Review of Systems: Review of Systems Constitutional: Presents for consult for weight loss. Patient with a history of Type II DM and prior trial with Adipex without success. Desires evaluation for weight loss trial with Kalyan All other systems reviewed and are negative. OBJECTIVE Objective: Physical Exam Constitutional: Appearance: Normal appearance. She is obese. HENT: Head: Normocephalic. Cardiovascular: Rate and Rhythm: Normal rate. Pulses: Normal pulses. Pulmonary: Effort: Pulmonary effort is normal. Breath sounds: Normal breath sounds. Abdominal: Palpations: Abdomen is soft. Musculoskeletal: General: Normal range of motion. Neurological: General: No focal deficit present. Mental Status: She is alert and oriented to person, place, and time. Psychiatric: Mood and Affect: Mood normal. Behavior: Behavior normal. Thought Content: Thought content normal. Judgment: Judgment normal. Vitals and nursing note reviewed. Vitals: Estimated body mass index is 50.09 kg/m as calculated from the following: Height as of 07/25/22: 5' 7 . Weight as of this encounter: 319 lb 12.8 oz. BP: 120/68 No LMP recorded. Patient has had a hysterectomy. ASSESSMENT & PLAN ICD-10-CM 1. Encounter for weight loss counseling Z71.3 Patient presents today for initial Mounjaro prescription. The importance of keeping a food journal, proper nutrition/diet, and exercise regimen while taking Mounjaro has been discussed. Patient verbalized understanding and signed consents to initiate (Mounjaro) medication therapy. Patient was given a printed prescription signed by provider to take to their local pharmacy. Follow Up: Weight and blood pressure will need to be captured in order for patient to receive 2nd prescription. Prescription for Mounjaro sent to desired pharmacy Documented by JAZMYN Phillips on behalf of: JAZMYN Phillips documented in this encounter [facility] 02-01-2024 Miscellaneous Notes Pt called office today asking to schedule a video visit with Linnette today. Scallop Shucker told pt that linnette did not have any openings and could see someone else in office. Pt stayed that she cannot wait till next week to be seen. Scallop Shucker recommended that pt go to the ER or UC if she cannot wait. Patient stated that the ER is not going to do anything for me because I have Lupus, they're going to tell me to see my Operations Officer Trust Department Scallop Shucker informed pt that she could be seen in Office Next week by one of our other providers. Pt asked if there was something that was wrong with why Linnette will not see her. Scallop Shucker informed the patient that Linnette Is fully Booked today 02/01/24 and is on vacation Everyday next week. Scallop Shucker told patient that she can be seen by linnette beginning feb. Pt replied I will be half by then then Hung up on typewriter mechanic. documented in this encounter [facility] 02-01-2024 Telephone encounter Note Pt called office today asking to schedule a video visit with Linnette today. Scallop Shucker told pt that linnette did not have any openings and could see someone else in office. Pt stayed that she cannot wait till next week to be seen. Scallop Shucker recommended that pt go to the ER or UC if she cannot wait. Patient stated that the ER is not going to do anything for me because I have Lupus, they're going to tell me to see my Operations Officer Trust Department Scallop Shucker informed pt that she could be seen in Office Next week by one of our other providers. Pt asked if there was something that was wrong with why Linnette will not see her. Scallop Shucker informed the patient that Linnette Is fully Booked today 02/01/24 and is on vacation Everyday next week. Scallop Shucker told patient that she can be seen by linnette beginning feb. Pt replied I will be half by then then Hung up on typewriter mechanic. [facility] 01-30-2024 History of Present illness Narrative Images from the original note were not included. [facility] [address] [place] [id number] Name: Navdeep Palma : 1975 CHIEF COMPLAINT No chief complaint on file. HISTORY OF PRESENT ILLNESS Navdeep Palma is a 48 y.o. old female who is an established patient [facility] Video visit with a chief complaint of several concerns. This call is considered an audio visual visit, which is to help assess your current healthcare needs and to determine the appropriate care you may require. This visit may be a billable service through your insurance company. Do you consent to moving forward with this telephone visit? Yes . Patient is at home. Provider is in the office. Patient has concerns of not feeling well. She is not sure if the weather is triggering her symptoms. Patient is having headaches since last . She says she is out of her injections that she used to take previously. These were originally ordered by her previous neurologist, she has been out of them for a while because she has not needed them. She is only taking Tylenol/Topamax that is not effective. Last time she had these filled was at [facility] [place]. She was referred to [facility] pain mgmt in [place]. States she was hospitalized and missed an appt, dismissed from service. Cardiology told her she should not be taking premarin, this was discontinued. Patient states she is no longer participating in PT due to paperwork not being faxed over. New referral placed today. ALLERGIES Allergies Allergen Reactions Choctaw [Hydrocodone-Acetaminophen] Itching and Headache Cyclobenzaprine Headache and Hives Hydrochlorothiazide Nausea Lisinopril Cough MEDICATIONS Current Outpatient Medications on File Prior to Visit Medication Sig Dispense Refill amLODIPine (NORVASC) 10 mg tablet take one tablet by mouth every morning 30 tablet 11 azaTHIOprine (IMURAN) 100 mg tablet take 1 tablet by mouth 2 times a day 120 tablet 0 DULoxetine (CYMBALTA) 60 mg capsule Take 1 capsule (60 mg total) by mouth in the morning. 90 capsule 1 hydrOXYzine (VISTARIL) 50 mg capsule Take 1 capsule (50 mg total) by mouth 3 (three) times a day as needed for itching. 270 capsule 0 losartan (COZAAR) 25 mg tablet Take 1 tablet (25 mg total) by mouth in the morning. 90 tablet 3 metFORMIN (GLUCOPHAGE) 500 mg tablet Take 1 tablet (500 mg total) by mouth in the morning and 1 tablet (500 mg total) in the evening. Take with meals. multivitamin (THERAGRAN) tablet Take 1 tablet by mouth in the morning. omeprazole (PriLOSEC) 20 mg capsule take 1 capsule by mouth every morning 90 capsule 0 ondansetron ODT (ZOFRAN ODT) 4 mg disintegrating tablet Dissolve 2 tablets (8 mg total) on tongue every 8 (eight) hours as needed for nausea or vomiting. ONETOUCH DELICA PLUS LANCET 33 gauge misc USE DIRECTED TO check blood sugar 3 TIMES DAILY & NEEDED DIRECTED ONETOUCH ULTRA TEST strip ONETOUCH ULTRA2 METER [facility] USE DIRECTED TO test blood sugar oxyCODONE (ROXICODONE) 5 mg immediate release tablet Take 1 tablet (5 mg total) by mouth every 6 (six) hours as needed for pain. Max Daily Amount: 20 mg 20 tablet 0 rivaroxaban (XARELTO) 20 mg tablet tablet Take 1 tablet (20 mg total) by mouth in the morning. 90 tablet 3 topiramate (TOPAMAX) 50 mg tablet Take 1 tablet (50 mg total) by mouth in the morning and 1 tablet (50 mg total) before bedtime. No current facility-administered medications on file prior to visit. MEDICAL/SURGICAL/FAMILY HISTORY Past Medical History: Diagnosis Date Abnormal stress test Allergic Anxiety with depression 12/07/2023 Asthma Back pain Chronic pain disorder CPAP (continuous positive airway pressure) dependence Echocardiogram abnormal EKG abnormality Essential hypertension 02/07/2021 Fibromyalgia, primary Gastroesophageal reflux disease 12/07/2023 Joint pain Low back pain Lupus (systemic lupus erythematosus) ([facility]) Migraine Murmur, cardiac Obesity Osteoarthritis Osteoarthritis Peripheral neuropathy Pneumonia Sleep apnea Tooth loose Upper back pain Past Surgical History: Procedure Laterality Date SECTION three ECTOPIC SURGERY two EKOS, Thrombolysis of PE N/A 12/07/2023 Performed by Alexandra Alejandro MD at [facility] CARDIAC CATH LABS GASTRECTOMY sleeve HERNIA REPAIR HYSTERECTOMY 2008 COMPLETE INJECTION BLOCK NERVE KNEE Left Genicular Left 08/25/2022 Performed by Albert Jones MD at [facility] INJECTION BLOCK NERVE KNEE right genicular Right 05/16/2021 Performed by Albert Jones MD at [facility] JOINT REPLACEMENT Right 02/09/2021 LYMPH NODE DISSECTION bilateral axillae x2 OOPHORECTOMY Bilateral 2008 RADIO FREQUENCY ABLATION L 4/5,5/S1 Left 08/04/2016 Performed by Albert Jones MD at [facility] RADIO FREQUENCY ABLATION L4/5,5/S1 Right 08/21/2016 Performed by Albert Jones MD at [facility] REPLACEMENT TOTAL KNEE Right 2020 TUBAL LIGATION x2 UMBILICAL HERNIA REPAIR Family History Problem Relation Age of Onset Pancreatic cancer Mother Lung cancer Mother Arthritis Mother Migraines Father Arthritis Father Hypertension Brother Asthma Daughter Breast cancer Maternal Aunt Heart disease Maternal Uncle Hypertension Maternal Uncle Heart disease Maternal Grandmother Hypertension Maternal Grandmother Kidney disease Maternal Grandmother Stroke Maternal Grandmother Stroke Brother SOCIAL HISTORY Social History Socioeconomic History Marital status: Single Tobacco Use Smoking status: Never Passive exposure: Never Smokeless tobacco: Never Vaping Use Vaping status: Never Used Substance and Sexual Activity Alcohol use: Not Currently Drug use: Never Sexual activity: Yes Partners: Male Other Topics Concern Caffeine Use Yes Social Drivers of Health Financial Resource Strain: Medium Risk (10/31/2023) Received from [facility] Overall Financial Resource Strain (CARDIA) Difficulty of Paying Living Expenses: Somewhat hard Food Insecurity: No Food Insecurity (01/29/2024) Hunger Screening Food Insecurity - Worry: Never True Food Insecurity - Inability: Never True Transportation Needs: No Transportation Needs (12/13/2023) PRAPARE - Transportation Lack of Transportation (Medical): No Lack of Transportation (Non-Medical): No Interpersonal Safety: Not At Risk (12/13/2023) Humiliation, Afraid, Rape, and Kick questionnaire Fear of Current or Ex-Partner: No Emotionally Abused: No Physically Abused: No Sexually Abused: No Housing Instability: Low Risk (12/13/2023) Housing Instability Housing Instability: No Social History Tobacco Use Smoking Status Never Passive exposure: Never Smokeless Tobacco Never REVIEW OF SYSTEMS Review of Systems Constitutional: Positive for fatigue. HENT: Negative. Respiratory: Positive for shortness of breath. Gastrointestinal: Negative. Genitourinary: Negative. Musculoskeletal: Positive for arthralgias and back pain. Skin: Negative. Neurological: Positive for headaches. Psychiatric/Behavioral: The patient is nervous/anxious. PHYSICAL EXAMINATION Vitals and rest of the physical examination were unable to be completed by the provider today as the patient presented via telephone/video. ASSESSMENT & PLAN Encounter Diagnoses Name Primary? Other migraine without status migrainosus, not intractable Yes Muscle spasm Primary osteoarthritis of left knee I will plan to have the patient return in approximately PRN for a follow up. The patient was given standard warnings and instructed to call the office with any questions or concerns. A total of approximately 25 minutes spent with the patient today using the Telehealth/video software in [employer]. This was performed en lieu of a [id number]-hd-[id number] office visit due to the current COVID-19 pandemic. Bong Phelan APRN-AMBROSIO Phelan APRN-AMBROSIO 02/02/24 [id number] documented in this encounter [facility] 01-29-2024 History of Present illness Narrative Navdeep Palma Date of visit: 01/29/2024 Date of : 1975 Age: 48 y.o. 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, lumbar region Lumbosacral spondylosis without myelopathy Essential hypertension Right anterior knee pain Primary osteoarthritis of left knee BMI 50.0-59.9, adult ([facility]) Pulmonary embolism ([facility]) Anxiety with depression Fibromyalgia Gastroesophageal reflux disease Systemic lupus erythematosus ([facility]) Mild intermittent asthma without complication SOPHIE (obstructive sleep apnea) Prediabetes Status post total knee replacement using cement, left Vitamin D deficiency Vitamin B1 deficiency Right lower lobe lung mass Allergies Allergen Reactions [place]ct[place] [Hydrocodone-Acetaminophen] Itching and Headache Cyclobenzaprine Headache and Hives Hydrochlorothiazide Nausea Lisinopril Cough Current Outpatient Medications Medication Sig Dispense Refill amLODIPine (NORVASC) 10 mg tablet take one tablet by mouth every morning 30 tablet 11 azaTHIOprine (IMURAN) 100 mg tablet take 1 tablet by mouth 2 times a day 120 tablet 0 baclofen (LIORESAL) 10 mg tablet Take 1 tablet (10 mg total) by mouth as needed. DULoxetine (CYMBALTA) 60 mg capsule Take 1 capsule (60 mg total) by mouth in the morning. 90 capsule 1 hydrOXYzine (VISTARIL) 50 mg capsule Take 1 capsule (50 mg total) by mouth 3 (three) times a day as needed for itching. 270 capsule 0 losartan (COZAAR) 25 mg tablet Take 1 tablet (25 mg total) by mouth in the morning. 90 tablet 3 metFORMIN (GLUCOPHAGE) 500 mg tablet Take 1 tablet (500 mg total) by mouth in the morning and 1 tablet (500 mg total) in the evening. Take with meals. multivitamin (THERAGRAN) tablet Take 1 tablet by mouth in the morning. omeprazole (PriLOSEC) 20 mg capsule take 1 capsule by mouth every morning 90 capsule 0 ondansetron ODT (ZOFRAN ODT) 4 mg disintegrating tablet Dissolve 2 tablets (8 mg total) on tongue every 8 (eight) hours as needed for nausea or vomiting. ONETOUCH DELICA PLUS LANCET 33 gauge misc USE DIRECTED TO check blood sugar 3 TIMES DAILY & NEEDED DIRECTED ONETOUCH ULTRA TEST strip ONETOUCH ULTRA2 METER misc USE DIRECTED TO test blood sugar oxyCODONE (ROXICODONE) 5 mg immediate release tablet Take 1 tablet (5 mg total) by mouth every 6 (six) hours as needed for pain. Max Daily Amount: 20 mg 20 tablet 0 rivaroxaban (XARELTO) 20 mg tablet tablet Take 1 tablet (20 mg total) by mouth in the morning. 90 tablet 3 topiramate (TOPAMAX) 50 mg tablet Take 1 tablet (50 mg total) by mouth in the morning and 1 tablet (50 mg total) before bedtime. No current facility-administered medications for this visit. Chief Complaint Patient presents with Follow-up 3 mo f/u -labs-IP 12/03 PULMONARY EMBOLISM History of Present Illness I previously met this 48-year-old in September. She underwent knee surgery in October and experienced a DVT and PE in November. She is status post thrombectomy She remains with shortness of breath. 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 She is unaccompanied today CV TESTING HISTORY: ECHO: Echo complete W/ contrast Result Date: 12/07/2023 Left Ventricle: Left ventricle appears normal in size. Systolic function is normal with an ejection fraction of 60-65%. The quantitative EF by 2D Montanez biplane is 61%. See wall score diagram for wall motion abnormalities. There is both systolic and diastolic flattening of the interventricular septum consistent with right ventricle pressure and volume overload. Right Ventricle: Right ventricular size is moderately dilated. The right ventricular basal diameter is 49.0 mm. Aortic Valve: The aortic valve is trileaflet. The leaflets are not thickened and exhibit normal excursion. Mitral Valve: The leaflets are mildly thickened. Tricuspid Valve: Tricuspid valve appears to be normal. The right ventricular systolic pressure estimated by tricuspid regurgitation Doppler jet. The right ventricular systolic pressure is mildly elevated. RVSP calculated at 40 mmHg. RVSP is based on RA pressure of 3 mmHg. There is mild pulmonary hypertension. The degree of pulmonary hypertension may be under estimated Right Atrium: Right atrium is mildly dilated. The right atrial area is 22.1 cm2. STRESS: No results found. HOLTER: No results found. CARDIAC CATH: No results found. CAROTID: No results found. CXR: No results found. Lipid Profile: Lab Results Component Value Date Cholesterol 159 11/04/2022 Cholesterol:HDL Ratio 3.2 11/04/2022 HDL Cholesterol 50 11/04/2022 Triglycerides 88 11/04/2022 LDL (calc) 91 11/04/2022 Past Medical History: Diagnosis Date Abnormal stress test Allergic Anxiety with depression 12/07/2023 Asthma Back pain Chronic pain disorder CPAP (continuous positive airway pressure) dependence Echocardiogram abnormal EKG abnormality Essential hypertension 02/07/2021 Fibromyalgia, primary Gastroesophageal reflux disease 12/07/2023 Joint pain Low back pain Lupus (systemic lupus erythematosus) ([facility]) Migraine Murmur, cardiac Obesity Osteoarthritis Osteoarthritis Peripheral neuropathy Pneumonia Sleep apnea Tooth loose Upper back pain Past Surgical History: Procedure Laterality Date SECTION three ECTOPIC SURGERY two EKOS, Thrombolysis of PE N/A 12/07/2023 Performed by Alexandra Alejandro MD at [facility] C[facility] CATH LABS GASTRECTOMY sleeve HERNIA REPAIR HYSTERECTOMY 2009 COMPLETE INJECTION BLOCK NERVE KNEE Left Genicular Left 08/25/2022 Performed by Albert Jones MD at [facility] INJECTION BLOCK NERVE KNEE right genicular Right 05/16/2021 Performed by Albert Jones MD at [facility] JOINT REPLACEMENT Right 02/09/2021 LYMPH NODE DISSECTION bilateral axillae x2 OOPHORECTOMY Bilateral 2009 RADIO FREQUENCY ABLATION L 4/5,5/S1 Left 08/04/2016 Performed by Albert Jones MD at [facility] RADIO FREQUENCY ABLATION L4/5,5/S1 Right 08/21/2016 Performed by Albert Jones MD at TOFTE PAIN REPLACEMENT TOTAL KNEE Right 2020 TUBAL LIGATION x2 UMBILICAL HERNIA REPAIR Family History Problem Relation Age of Onset Pancreatic cancer Mother Lung cancer Mother Arthritis Mother Migraines Father Arthritis Father Hypertension Brother Asthma Daughter Breast cancer Maternal Aunt Heart disease Maternal Uncle Hypertension Maternal Uncle Heart disease Maternal Grandmother Hypertension Maternal Grandmother Kidney disease Maternal Grandmother Stroke Maternal Grandmother Stroke Brother Social History Socioeconomic History Marital status: Single Spouse name: Not on file Number of children: Not on file Years of education: Not on file Highest education level: Not on file Occupational History Not on file Tobacco Use Smoking status: Never Passive exposure: Never Smokeless tobacco: Never Vaping Use Vaping status: Never Used Substance and Sexual Activity Alcohol use: Not Currently Drug use: Never Sexual activity: Yes Partners: Male Other Topics Concern Caffeine Use Yes Social History Narrative Not on file Social Drivers of Health Financial Resource Strain: Medium Risk (10/31/2023) Received from [facility] Overall Financial Resource Strain (CARDIA) Difficulty of Paying Living Expenses: Somewhat hard Food Insecurity: No Food Insecurity (01/29/2024) Hunger Screening Food Insecurity - Worry: Never True Food Insecurity - Inability: Never True Transportation Needs: No Transportation Needs (12/13/2023) PRAPARE - Transportation Lack of Transportation (Medical): No Lack of Transportation (Non-Medical): No Physical Activity: Not on file Stress: Not on file Social Connections: Not on file Interpersonal Safety: Not At Risk (12/13/2023) Humiliation, Afraid, Rape, and Kick questionnaire Fear of Current or Ex-Partner: No Emotionally Abused: No Physically Abused: No Sexually Abused: No Housing Instability: Low Risk (12/13/2023) Housing Instability Housing Instability: No Review of Systems Review of Systems Constitutional: Positive for malaise/fatigue. HENT: Negative. Eyes: Positive for blurred vision and double vision. Cardiovascular: Positive for chest pain. Vascular: Negative. Respiratory: Positive for shortness of breath. Endocrine: Negative. Hematologic/Lymphatic: Bruises/bleeds easily. Skin: Negative. Musculoskeletal: Positive for back pain, joint swelling and muscle weakness. Gastrointestinal: Negative. Genitourinary: Negative. Neurological: Positive for dizziness, headaches, light-headedness and numbness. Psychiatric/Behavioral: Negative. Allergic/Immunologic: Negative. CARDIOVASCULAR: Please review HPI. Physical Examination General appearance: Alert, oriented and cooperative. In no acute distress. Skin: Warm and dry to touch. Respiratory: Bilateral diminished without rales or wheezes Cardiovascular: RRR with normal S1 and S2 with no murmurs. Musculoskeletal: No peripheral edema. VITAL SIGNS: BP 114/86 (BP Site: Left Arm, BP Postition: Sitting) Pulse 94 Ht 167.6 cm (5' 6 ) Wt (!) 145.6 kg (321 lb) SpO2 96% BMI 51.81 kg/m Orders Placed or Reconciled This Encounter Medications DISCONTD: PREMARIN 0.9 mg tablet Sig: Take 1 tablet (0.9 mg total) by mouth in the morning. Medications Discontinued During This Encounter Medication Reason PREMARIN 0.9 mg tablet IMPRESSIONS/PLAN 1. Essential hypertension 1. Primary hypertension, controlled --losartan 2. Obstructive sleep apnea --CPAP 3. Normal left ventricular systolic function on echocardiogram 11/2023 4. Low risk stress test 12/2020 5. Systemic lupus erythematosus 6. Bilateral pulmonary emboli 12/07/2023 -status post thrombectomy --Dr Chong 7. Medial right lower lobe mass -in evaluation with Dr. Maida moncada 8. BMI greater than 50 DVT may be considered provoked as patient with left knee replacement at the end of October. Patient with additional risks including lupus/estrogen use which she states has been ongoing for several months/obesity Instructed to discontinue Premarin/estrogen TODAYS ORDERS No orders of the defined types were placed in this encounter. FOLLOW UP Return in about 6 months (around 07/28/2024). PCP: JILL Bower Referring Physician: JILL Bower [address], [address] [id number] documented in this encounter [facility] 01-29-2024 Instructions Jordyn Moreira MD - 01/29/2024 3:15 PM EST As discussed, discontinue Premarin/estrogen documented in this encounter [facility] 01-28-2024 Miscellaneous Notes Left message for patient to remind them to bring their most current medication list with them to their appointment. documented in this encounter [facility] 01-28-2024 Telephone encounter Note Left message for patient to remind them to bring their most current medication list with them to their appointment. [facility] 01-17-2024 Miscellaneous Notes PAP mask and supplies order with supportive documentation faxed to [facility]. documented in this encounter [facility] 01-17-2024 Telephone encounter Note PAP mask and supplies order with supportive documentation faxed to [facility]. [facility] 01-10-2024 History of Present illness Narrative [facility] Progress Note Patient - Navdeep Palma Age - 48 y[facility] 1975 [id number] ASSESSMENT Pulmonary emboli s/p EKOS on xarelto (Nov 2023) Elevated RVSP in setting of acute PE Right lower lung mass (3.5 cm) suspicious for hamartoma SOPHIE History of SLE Adiposity with BMI 52% PLAN Imaging of chest mass on right reviewed in detail with her. Compared to previous CT scans of the abdomen pelvis. Lesion has fat density within it making it highly suspicious for hamartoma. She does have family history of lung neoplasm and is very anxious about this lung mass. She is requesting further workup in would like to proceed with PET-CT. Discussed evidence of RV strain with pulmonary emboli. Given ongoing shortness of breath would like progress imaging of echocardiogram to re-evaluate her right ventricular systolic pressure is Continue Xarelto Continue p.r.n. rescue inhaler Daily walking program Return to clinic in 3 months or earlier if needed RYAN Sethi presents for visit for shortness of breath following recent hospitalization for pulmonary emboli. Patient was hospitalized in November with bilateral PE with evidence of right heart strain. She underwent EKOS and was discharged home on Xarelto. Shortness of breath following hospital discharge had become increased. She was readmitted. Repeat CT scan of the chest was done on 12/11 which redemonstrated pulmonary emboli with a new small acute segmental left-sided PE. She is presently on Xarelto 20 mg daily as maintenance. She has not been requiring any supplemental oxygen therapy. She feels that her shortness of breath is markedly improved from her initial presentation but she continues to get some shortness of breath with exertion since her hospitalization that is unchanged. Occasionally she gets some anterior chest pressure. She takes an aerosol but this does not seem to relieve the symptoms. Her greatest concern today is actually her finding of her chest mass. She had finding of a chest mass on the CT angiogram which he was informed of measuring slightly greater than 3 cm. However on further review it has been present on her CT abdomen pelvis since at least 2018. VITALS BP 149/88 Pulse 85 Ht 167.6 cm (5' 6 ) Wt (!) 146.1 kg (322 lb 1.6 oz) SpO2 94% BMI 51.99 kg/m Exam General: alert, oriented. No acute distress. Nontoxic Chest: Clear to auscultation bilaterally without any crackles, wheezes, rhonchi. Normal AP diameter. CV: Regular rate regular rhythm Extremities: No edema, erythema, distal cyanosis, clubbing Integumentary: Warm and dry. No rash or lesion Neuro: No lateralizing deficits. No tremors Meds Medications Reviewed. Radiology EXAM: CT PULMONARY ANGIOGRAM OF THE CHEST WITH CONTRAST 12/12/23 CLINICAL INFORMATION: Pulmonary embolism (PE) suspected, high prob. TECHNIQUE: CT angiography of the chest was performed utilizing thin section axial images with coronal and sagittal reformatted images generated. 3-D maximum intensity projection coronal and sagittal reformatted images generated and reviewed. Images acquired following the uneventful administration of nonionic intravenous contrast. Automated exposure control was utilized. COMPARISON: 12/06/2023 FINDINGS: There is adequate opacification of the pulmonary arteries. Again seen are acute pulmonary emboli within the distal right main pulmonary artery extending into the lobar and segmental branches. Small acute pulmonary emboli within the left segmental branches of the pulmonary arteries are also again noted. The overall burden of pulmonary emboli has decreased since the 12/06/2023 comparison examination. Stable appearance of a 3.5 cm mass in the medial right lower lobe. There is only mild bibasilar atelectasis. There are no pleural effusions. There is no pericardial effusion. There remains pathologically enlarged left axillary lymph nodes, which appears slightly improved since 12/06/2023. The largest lymph node which appears to contain a biopsy marker clip now measures 2.6 cm (previously measured 3.1 cm). The thoracic aorta is normal in diameter. There are no appreciable coronary artery calcifications. The limited visualized upper abdominal contents demonstrates hepatic steatosis and postsurgical changes of the stomach and GE junction. IMPRESSION: 1. Redemonstration of pulmonary emboli within the distal right main pulmonary artery extending into the lobar and segmental branches and small acute segmental left-sided pulmonary emboli. The overall burden of pulmonary emboli has decreased since the 12/06/2023 comparison examination. 2. Persistent but slightly improved pathologic left axillary lymphadenopathy, as above. 3. Stable appearance of a 3.5 cm mass in the medial right lower lobe, suspicious for malignancy. This could represent pulmonary metastasis versus a primary bronchogenic carcinoma. 4. The limited visualized upper abdomen again demonstrates postsurgical changes of the GE junction and stomach and hepatic steatosis. Dr. Neena Del Castillo DO. [facility] Office: [phone] documented in this encounter [facility] 01-07-2024 History of Present illness Narrative Images from the original note were not included. [facility] [place] [address] [address] [facility] [id number] Subjective: Patient ID: Navdeep Palma is a 48 y.o. female. Chief Complaint Chief Complaint Patient presents with Follow-up Blood Clot(s) Post hospital discharge visit History of Present Illness: This is a 50 year old female. She developed submassive PE and underwent thrombolysis on 12/06 then was admitted several days later with continued dyspnea, CTA chest showed improvement in PE burden. She is here today to follow-up after her procedure. She reports continued exertional dyspnea, however denies dyspnea at rest. No issues with lower extremity edema. She is compliant with Xarelto. The patient's DVT appears to have been provoked by knee surgery on 10/30, did stay in the hospital for several days following surgery. She denies history of close family members with DVT/PE. She reports her mother young with lung cancer. Of note, the patient had a CT scan which showed mass in the right lymph node as well as left axillary lymphadenopathy. The patient has an appointment with pulmonology later this week. She states she has a history of lupus and reports lymphadenopathy is a chronic finding. 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, lumbar region Lumbosacral spondylosis without myelopathy Essential hypertension Right anterior knee pain Primary osteoarthritis of left knee Pre-operative cardiovascular examination BMI 50.0-59.9, adult ([facility]) Pulmonary embolism ([facility]) Anxiety with depression Fibromyalgia Gastroesophageal reflux disease Systemic lupus erythematosus ([facility]) Mild intermittent asthma without complication SOPHIE (obstructive sleep apnea) Prediabetes Status post total knee replacement using cement, left Vitamin D deficiency Vitamin B1 deficiency Morbid obesity with body mass index of 50 or higher ([facility]) Current Outpatient Medications: acetaminophen (TYLENOL EXTRA STRENGTH) 500 mg tablet, Take 1 tablet (500 mg total) by mouth 3 (three) times a day as needed for pain., Disp: , Rfl: amLODIPine (NORVASC) 10 mg tablet, take one tablet by mouth every morning, Disp: 30 tablet, Rfl: 11 azaTHIOprine (IMURAN) 100 mg tablet, take 1 tablet by mouth 2 times a day, Disp: 120 tablet, Rfl: 0 baclofen (LIORESAL) 10 mg tablet, Take 1 tablet (10 mg total) by mouth as needed., Disp: , Rfl: DULoxetine (CYMBALTA) 60 mg capsule, Take 1 capsule (60 mg total) by mouth in the morning., Disp: 90 capsule, Rfl: 1 hydrOXYzine (VISTARIL) 50 mg capsule, Take 1 capsule (50 mg total) by mouth 3 (three) times a day as needed for itching., Disp: 270 capsule, Rfl: 0 losartan (COZAAR) 25 mg tablet, Take 1 tablet (25 mg total) by mouth in the morning., Disp: 90 tablet, Rfl: 3 metFORMIN (GLUCOPHAGE) 500 mg tablet, Take 1 tablet (500 mg total) by mouth in the morning and 1 tablet (500 mg total) in the evening. Take with meals., Disp: , Rfl: multivitamin (THERAGRAN) tablet, Take 1 tablet by mouth in the morning., Disp: , Rfl: omeprazole (PriLOSEC) 20 mg capsule, take 1 capsule by mouth every morning, Disp: 90 capsule, Rfl: 0 ondansetron ODT (ZOFRAN ODT) 4 mg disintegrating tablet, Dissolve 2 tablets (8 mg total) on tongue every 8 (eight) hours as needed for nausea or vomiting., Disp: , Rfl: ONETOUCH DELICA PLUS LANCET 33 gauge misc, USE DIRECTED TO check blood sugar 3 TIMES DAILY & NEEDED DIRECTED, Disp: , Rfl: ONETOUCH ULTRA TEST strip, , Disp: , Rfl: ONETOUCH ULTRA2 METER [facility], USE DIRECTED TO test blood sugar, Disp: , Rfl: oxyCODONE (ROXICODONE) 5 mg immediate release tablet, Take 1 tablet (5 mg total) by mouth every 6 (six) hours as needed for pain. Max Daily Amount: 20 mg, Disp: 20 tablet, Rfl: 0 rivaroxaban (XARELTO DVT-PE TREAT 30D START) 15 mg (42)- 20 mg (9) tablets,dose pack, 15 mg twice daily with food for 21 days followed by 20 mg once daily with food., Disp: 51 tablet, Rfl: 0 topiramate (TOPAMAX) 50 mg tablet, Take 1 tablet (50 mg total) by mouth in the morning and 1 tablet (50 mg total) before bedtime., Disp: , Rfl: docusate sodium (COLACE) 100 mg capsule, Take 1 capsule (100 mg total) by mouth in the morning and 1 capsule (100 mg total) before bedtime., Disp: , Rfl: The following portions of the patient's history were reviewed and updated as appropriate: allergies, current medications, past family history, past medical history, past social history, past surgical history and problem list. Review of Systems: Review of Systems Constitutional: Negative. HENT: Negative. Eyes: Negative. Respiratory: Positive for shortness of breath. Cardiovascular: Negative. Gastrointestinal: Negative. Endocrine: Negative. Genitourinary: Negative. Musculoskeletal: Negative. Skin: Negative. Allergic/Immunologic: Negative. Neurological: Negative. Hematological: Negative. Psychiatric/Behavioral: Negative. Objective: Vitals BP (!) 153/98 Pulse 106 Wt (!) 146.5 kg (323 lb) BMI 53.75 kg/m Physical Exam Physical Exam Vitals and nursing note reviewed. Constitutional: Appearance: She is well-developed. HENT: Head: Normocephalic and atraumatic. Nose: Nose normal. Mouth/Throat: Mouth: Mucous membranes are moist. Pharynx: Oropharynx is clear. Eyes: Conjunctiva/sclera: Conjunctivae normal. Cardiovascular: Rate and Rhythm: Normal rate and regular rhythm. Pulmonary: Effort: Pulmonary effort is normal. Abdominal: Palpations: Abdomen is soft. Musculoskeletal: General: Normal range of motion. Cervical back: Normal range of motion. Right lower leg: No edema. Left lower leg: No edema. Skin: General: Skin is warm and dry. Capillary Refill: Capillary refill takes less than 2 seconds. Neurological: Mental Status: She is alert and oriented to person, place, and time. Studies Reviewed None Lab Results Component Value Date DDIMER 714 (H) 12/12/2023 Lab Results Component Value Date GLU 98 12/14/2023 CALCIUM 8.3 (L) 12/14/2023 SODIUM 138 12/14/2023 K 3.6 12/14/2023 CO2 23 12/14/2023 BUN 3 (L) 12/14/2023 CREATININE 0.59 12/14/2023 Lab Results Component Value Date WBC 3.3 (L) 12/14/2023 HGB 10.9 (L) 12/14/2023 HCT 32.7 (L) 12/14/2023 MCV 93 12/14/2023 PLT 342 12/14/2023 Assesment: Navdeep was seen today for follow-up and blood clot(s). Diagnoses and all orders for this visit: Acute pulmonary embolism with acute cor pulmonale, unspecified pulmonary embolism type (CMS-HCC) - rivaroxaban (XARELTO) 20 mg tablet tablet; Take 1 tablet (20 mg total) by mouth in the morning. Plan: Plan The patient is doing relatively well after EKOS treatment for submassive PE. I do not think her exertional dyspnea is related to PE as repeat CT scan shows decreased clot burden after therapy. She was found to have a lung mass, however, and I wonder if this is causing her dyspnea. She has follow-up with Pulmonology later this week and they should be able to address this I will plan to treat at least six months for provoked PE after knee surgery Refill for Xarelto was sent to her pharmacy Follow-up in six months. This note was created with the assistance of a speech recognition program. While intending to generate a timely document that accurately reflects the content of the visit, no guarantee can be provided that every grammatical or spelling mistake has been or will be identified or corrected. Thank you for your understanding. Bobbi Ortiz MD documented in this encounter [facility] 12-19-2023 History of Present illness Narrative Images from the original note were not included. [facility] [id number] [facility] [address] Subjective: Patient ID: The patient is here today for discharge follow up from [facility] 12/12-12/13 . Medication reconciliation was completed. HPI DATE OF ADMISSION: 12/13/2023 DATE OF DISCHARGE:12/14/2023 DISCHARGE DIAGNOSES Principal Problem: Pulmonary embolism ([facility]) Active Problems: Essential hypertension BMI 50.0-59.9, adult ([facility]) Anxiety with depression Fibromyalgia Gastroesophageal reflux disease Systemic lupus erythematosus ([facility]) Mild intermittent asthma without complication SOPHIE (obstructive sleep apnea) Prediabetes Status post total knee replacement using cement, left Vitamin D deficiency Vitamin B1 deficiency Morbid obesity with body mass index of 50 or higher ([facility]) [facility] PCP: Bong Phelan APRN-AMBROSIO PROCEDURES None HOSPITAL COURSE SUMMARY Navdeep Palma is a 48 y.o. female who presents as a transfer from [facility] Emergency Department for vascular evaluation. Patient was recently hospitalized at [facility] from 12/06 to 12/08 for acute pulmonary embolism secondary to recent left total knee. CTA imaging during that time showed acute bilateral pulmonary emboli extending to the lower lobes with features of right ventricular strain. She underwent EKOS procedure 12/06 and was subsequently transferred back to ICU under vascular surgeon. She was subsequently transitioned to [facility] for discharge and sent home from the ICU per the vascular team on 12/08. Patient reports she had been doing okay since her discharge however yesterday 12/11 she noticed when she got to the restroom she had sudden onset of shortness of Breath which was similar to her episode which initially brought her into the hospital on 12/06. She tells me initially she was going to drive to [facility] however felt something maybe very wrong so she stopped at [facility] Emergency Department instead. In the emergency department as documented that she was having mild chest pain and has been compliant with her Xarelto since discharge. RPP was negative. No leukocytosis or metabolic abnormalities on lab work. Ddimer was decreased from previous. Repeat CTA of the chest showed redemonstration of the pulmonary emboli within the distal right main pulmonary artery extending into segmental branches and a small acute left sided segmental pulmonary emboli however the overall burden of pulmonary emboli has decreased since 12/05 when they were compared. CTA also noted persistent but slightly improved left axillary lymphadenopathy in his stable appearance of a 3.5 cm mass in the right medial lower lobe which was suspicious for malignancy. The ED physician discussed the case with Dr. Martinez who reported he did not need to be consulted directly unless there was an issue with right heart strain which was not demonstrated on the CT scan. Patient then began having more chest pain and shortness of breath therefore she was started on high intensity heparin infusion without bolus and subsequently transferred to [facility] for vascular evaluation. Patient was seen and evaluated by vascular surgery team who noted that her pulmonary embolism is nonacute and it appeared smaller on CT scan post intervention compared to previous imaging completed on 12/05. Heparin infusion was discontinued and patient was transitioned back to her home dose Xarelto. Patient was also evaluated by pulmonology who note only a small increase in the lung mass since 2018 when images were compared. Studies for Histoplasma, Blastomyces antigen, coccidioidomycosis antibody, and Fungitell were sent by pulmonology, currently pending. Patient has been saturating above 90% while on room air during her stay. She no longer has any shortness of breath. It was discussed with the patient that may she may have intermittent shortness of breath secondary to her previous pulmonary emboli and she verbalizes understanding. She denies any chest pain, bladder or bowel dysfunction, abdominal pain, nausea, or vomiting. She has been able to ambulate around her room with a steady gait. Patient was given cleared for discharge and will follow up with both vascular as previously scheduled as well as pulmonology. Pulmonology recommending repeat CT scan of the chest with IV contrast in 3 months to continue to follow mass. Discharge Day Progress Note 12/14/23 Patient was seen and examined at bedside today. Hemodynamically stable. No chest pain, shortness of breath, fever, chills, nausea, vomiting, palpitations, or abdominal pain reported. No events reported overnight. Review of Systems Constitutional: Negative for chills and fever. HENT: Negative for ear pain and sore throat. Eyes: Negative for pain and visual disturbance. Respiratory: Positive for shortness of breath (intermittent, with activity). Negative for cough. Cardiovascular: Negative for chest pain and palpitations. Gastrointestinal: Negative for abdominal pain, constipation, diarrhea, nausea and vomiting. Genitourinary: Negative for dysuria and hematuria. Musculoskeletal: Positive for arthralgias (L knee) and gait problem. Negative for back pain and myalgias. Skin: Negative for color change and rash. Neurological: Negative for seizures and syncope. All other systems reviewed and are negative. The following portions of the patient's history were reviewed and updated as appropriate: Health Risk Assessment, allergies, past medical history, past surgical history, social history, family history and immunization history and medications Physical Exam Constitutional: General: She is not in acute distress. Appearance: She is well-developed. She is morbidly obese. HENT: Head: Normocephalic and atraumatic. Nose: Nose normal. Eyes: Pupils: Pupils are equal, round, and reactive to light. Cardiovascular: Rate and Rhythm: Normal rate and regular rhythm. Heart sounds: Normal heart sounds. No murmur heard. Pulmonary: Effort: Pulmonary effort is normal. No respiratory distress. Breath sounds: Normal breath sounds. Decreased air movement present. No wheezing, rhonchi or rales. Abdominal: General: Bowel sounds are normal. Palpations: Abdomen is soft. Tenderness: There is no abdominal tenderness. Musculoskeletal: General: Normal range of motion. Right lower leg: No edema. Left lower leg: No edema. Skin: General: Skin is warm and dry. Capillary Refill: Capillary refill takes less than 2 seconds. Findings: No rash. Neurological: General: No focal deficit present. Mental Status: She is alert and oriented to person, place, and time. Mental status is at baseline. Psychiatric: Mood and Affect: Mood normal. Behavior: Behavior normal. BP 116/90 (BP Site: Right Arm, BP Postition: Sitting, BP CUFF SIZE: L (13-17 inches)) Pulse 66 Resp 18 Ht 165.1 cm (5' 5 ) Wt (!) 147.2 kg (324 lb 9.6 oz) SpO2 91% BMI 54.02 kg/m Assessment/Plan: She was told to discuss how to take medications now being on Xarelto Metformin, Topamax, Imuran. F/U 30 days OK to resume PT Bong Phelan GRINDING OPERATOR,JILL Zhong 12/26/232135 documented in this encounter [facility] 12-14-2023 Miscellaneous Notes Contract: 91 [facility] [phone] Re medication Left Message on Dr Drew cell phone to call after hours Called Nurse back and to verify and she was going to call back and cancel call and reach out to patient regular Md instead documented in this encounter [facility] 12-14-2023 Telephone encounter Note Contract: 91 [facility] [phone] [facility] 12-14-2023 Telephone encounter Note Left Message on Dr Drew cell phone to call after hours [facility] 12-14-2023 Telephone encounter Note Called Nurse back and to verify and she was going to call back and cancel call and reach out to patient regular Md instead [facility] 12-13-2023 Miscellaneous Notes Images from the original note were not included. Contact Type: Direct contact - Phone call with patient - general Patient called expressing concerns for her location within [facility] stating she feels she is not getting as good of care as when she was on the 8th floor. Encouraged she discuss her concerns with providers and nursing staff. Scallop Shucker did forward patient's concerns to Acute Bowling Alley RefinisherRoselia arenas RN via [employer] Chat: documented in this encounter [facility] 12-13-2023 Telephone encounter Note Images from the original note were not included. Contact Type: Direct contact - Phone call with patient - general Patient called expressing concerns for her location within [facility] stating she feels she is not getting as good of care as when she was on the 8th floor. Encouraged she discuss her concerns with providers and nursing staff. Scallop Shucker did forward patient's concerns to Acute Bowling Alley RefinisherRoselia arenas RN via [employer]oth[employer] Chat: [facility] Work Phone: 12-10-2023 Miscellaneous Notes Hospital Discharge Follow Up Call (This is not a billable TCM) Transition of Care (*required) *Additional Questions/Concerns Requiring PCP Follow-Up: Patient would like vibrator operator to call her to schedule PCP hospital follow up appointment. Denies other needs at this time. No PCP f/u currently scheduled. This documentation is being used for Transition of Care purposes: Yes Goal: Patient will demonstrate a safe transition from hospital to home. Diagnosis on Discharge: Bilateral PE status post bilateral pulmonary angiogram with placement of EKOS for directed thrombolysis of bilateral pulmonary arteries on 12/07/2023 Discharge Specialty: Vascular *Name of Discharging Facility: [facility] Date of Facility Discharge: 12.07.23 - 12.09.23 Date of Interactive Contact and Name of Pbx Manager: 12.10.23 @ 3129 - Left message 12.11.23 @ 1984 - Spoke with patient *Medication Review Completed: No Declines need. Confirms she has medication and denies questions / concerns. START taking: XARELTO DVT-PE TREAT 30D START (rivaroxaban) STOP taking: aspirin 325 mg tablet Medication Reconciliation Questions/Concerns: None *Follow Up Appointments with Providers: Primary: Bong Phelan APRN-AMBROSIO TBD Specialty: Gina Bourgeois CNP - Pain MGMT 12.11.23 @ 1315 - Patient unable to attend this appointment because she was supposed to have testing done prior that she wasn't able to do due to being in the hospital. Specialty: Dr. Ortiz - Vasc Surg - 01.07.24 @ 0915 Specialty: Review of Pending Lab/Diagnostic Tests and Plan for Completion: None Assessment and Support of Treatment Regimen Adherence and Medication Management: Per patient she is doing ok so far since being home. She states she does still have some shortness of breath on and off that resolves on its own. Denies any new / worsening chest pain, cough, congestion, or other new / worsening symptoms. Confirms she has blood thinner and denies concerns with getting / taking this. Denies any concerns to bilateral groin sites such as pain, bleeding, redness, or swelling. She does have walker and bedside commode for use at home after left total knee replacement in October. She remains independent with adls since discharge. She has supportive family able to help with IADLs if needed. At this time she denies any other needs, questions, or concerns for PCP. Education Provided by ACN to Support Self-Management, Independent Living and ADLs: Discharge instructions reviewed. TCM services available and advised patient that memory care program resident navigator will be available to provide assistance for a minimum of 30 days post discharge. Patient to call ACN Sarah / PCP for any new, worsening, or returning symptoms, questions ,or concerns. Call 911 for any severe symptoms Communication with Home Health Agencies and Other Services Utilized/Needed by the Patient: NA documented in this encounter [facility] 12-10-2023 Telephone encounter Note Hospital Discharge Follow Up Call (This is not a billable TCM) Transition of Care (*required) *Additional Questions/Concerns Requiring PCP Follow-Up: Patient would like vibrator operator to call her to schedule PCP hospital follow up appointment. Denies other needs at this time. No PCP f/u currently scheduled. This documentation is being used for Transition of Care purposes: Yes Goal: Patient will demonstrate a safe transition from hospital to home. Diagnosis on Discharge: Bilateral PE status post bilateral pulmonary angiogram with placement of EKOS for directed thrombolysis of bilateral pulmonary arteries on 12/07/2023 Discharge Specialty: Vascular *Name of Discharging Facility: [facility] Date of Facility Discharge: 12.07.23 - 12.09.23 Date of Interactive Contact and Name of Pbx Manager: 12.10.23 @ 5859 - Left message 12.11.23 @ 1577 - Spoke with patient *Medication Review Completed: No Declines need. Confirms she has medication and denies questions / concerns. START taking: XARELTO DVT-PE TREAT 30D START (rivaroxaban) STOP taking: aspirin 325 mg tablet Medication Reconciliation Questions/Concerns: None *Follow Up Appointments with Providers: Primary: Bong Phelan APRN-WALL TO WALL CARPET INSTALLER TBD Specialty: Gina Bourgeois CNP - Pain MGMT 12.11.23 @ 2534 - Patient unable to attend this appointment because she was supposed to have testing done prior that she wasn't able to do due to being in the hospital. Specialty: Dr. Ortiz - Vasc Surg - 01.07.24 @ 6739 Specialty: Review of Pending Lab/Diagnostic Tests and Plan for Completion: None Assessment and Support of Treatment Regimen Adherence and Medication Management: Per patient she is doing ok so far since being home. She states she does still have some shortness of breath on and off that resolves on its own. Denies any new / worsening chest pain, cough, congestion, or other new / worsening symptoms. Confirms she has blood thinner and denies concerns with getting / taking this. Denies any concerns to bilateral groin sites such as pain, bleeding, redness, or swelling. She does have walker and bedside commode for use at home after left total knee replacement in October. She remains independent with adls since discharge. She has supportive family able to help with IADLs if needed. At this time she denies any other needs, questions, or concerns for PCP. Education Provided by ACN to Support Self-Management, Independent Living and ADLs: Discharge instructions reviewed. TCM services available and advised patient that memory care program resident navigator will be available to provide assistance for a minimum of 30 days post discharge. Patient to call ACN Sarah / PCP for any new, worsening, or returning symptoms, questions ,or concerns. Call 911 for any severe symptoms Communication with Home Health Agencies and Other Services Utilized/Needed by the Patient: NA [facility] 11-19-2023 Note Orthopaedic Surgery Subjective Post-op of the Left Knee (TKA) 11/19/23 Domingo Palma is a 48 y.o. female presenting for post-op of the left total knee arthroplasty using Liliane implants done 31 October 2023. Patient now almost 3 weeks following her surgery and has been ambulating full weightbearing. She is at the [facility] at this point in time until today at rest she has been doing her rehab. Patient has been ambulating full weightbearing with some degree of support and has been struggling at this point in time. She believes that she has been doing similar to what she did with her right knee arthroplasty. Patient has been accompanied by her family. Her pain is well-controlled. She is here for her first postoperative visit. Patient has pain in her left knee that she states is the same as pre-op pain, which has been getting worse since the surgery. Patient had a weird feeling in her knee when getting up from the toilet earlier today which made her worse today than normal. Patient ambulates with walker and goes through two flights of stairs to get to her home. Patient was discharged from inpatient PT last Sunday and will undergo outpatient PT evaluation on Sunday. Patient History Past Surgical History: Procedure Laterality Date GASTRECTOMY SLEEVE JOINT REPLACEMENT Right 02/2021 KNEE Past Medical History: Diagnosis Date Arthritis CPAP (continuous positive airway pressure) dependence Fibromyalgia, primary Hypertension Left knee pain Lupus (systemic lupus erythematosus) ([facility]) Migraine Obesity BMI 54.55 Osteoarthritis Sleep apnea Objective General: Body mass index is 61.66 kg/m???. No acute distress, comfortable Left total knee arthroplasty: Incision healthy, no signs of any infection or admission seen. Patient has full active extension of the knee joint with flexion to about 85 to 90 degrees. Patient has difficulty in doing the straight leg raise due to the weakness in the lower extremities. Some degree of difficulty in mobilizing the knee joint due to the pain. Overall incision is healthy, no signs of any redness noted, no signs of any major collection noted. No discharge noted. Residual glue noted. This has been peeling off without any complications. Surgical site healing well. ROM slightly limited by pain. No calf swelling or tenderness noted, patient has full active extension and flexion as mentioned above. Walks with moderate antalgia. Ankle and toe range of motion and maintain. No signs of new neurological deficits seen. Imaging X-ray of the left knee in office today 11/19/2023: X-rays of the left knee joint 3 views were taken today in the office were seen by myself and interpreted independently show the patient has left knee arthroplasty well aligned well-fixed without any complicating process. Residual postoperative changes noted. New fracture or dislocation seen. Patella tracks normally. Imaging personally reviewed and interpreted by attending physician. Findings discussed with patient. Appropriate healing for current stage. Assessment/Plan Domingo Palma is a 48 y.o. female with Left knee pain, unspecified chronicity. Status post left knee arthroplasty doing well 3 weeks postop visit healing appropriate for current stage. Patient was explained the x-rays and has been doing well with her strengthening of the lower extremity and continue with her physical therapy. We have given her prescription for physical therapy. She will avoid twisting turning torquing or kneeling. Weight loss program and avoid pivoting. Patient will avoid keeping when pillow under the knee joint while in bed. She will continue using ice as needed gradually wean off her narcotic medications. Patient will also do the calcium and vitamin D3. Patient was reminded to take oral antibiotics prior to dental work or colonoscopy. -Patient encouraged to walk when possible but avoid falling. -Continue PT. -Showering permitted over surgical site. -Return to clinic in 2 months or earlier if needed. Patient understands the plan all questions answered today. Patient will continue with her aggressive physical therapy. [facility] 11/19/23 1:47 PM By using the attestations below, the signing clinician agrees that I have read and verify that the documentation has been personally reviewed by me and ensure that the documentation accurately reflects the encounter. GC: I personally saw this patient on the day of the encounter, performed the humphries portion(s) of the service and participated in the management and confirm the medical student's documentation. Please note there may be an additional personal documentation from me. Dr. Lyssa Park MD MRCSEd Mowing Machine Operator orthopedic surgery Adult Reconstruction and Trauma [facility]. [facility] 11-16-2023 Discharge summary Note Date/Time November 16, 2023 9:23am [facility] [address] [place] [address] Discharge Summary Signed Patient: Navdeep Palma MR#: [id number] : 1975 Acct:[id number] Age/Sex: 48 / F Adm Date: 4 Loc: 5T Room: 5M4833-[address]: Jonny Bentley MD Copies to: MD Jordyn Esqueda, GRINDING OPERATOR, WALL TO WALL CARPET INSTALLER~ Providers Date of Discharge: 11/16/23 Discharging Provider: Jonny Bentley Primary Care Provider: Jordyn Barrera Consults: 11/06/23 17:08 Consult to Dietitian Routine Comment: Reason for Consult: PO Supplement Eval&Order Consult to Occupational Therapy Routine Comment: Physician Instructions: Consult to OT for:: Evaluation and Treat Consult to Physical Therapy Routine Comment: Physician Instructions: Consult to PT for:: Evaluation and Treat Speech Admit Screen Routine Comment: Discharge Diagnosis (1) Hx of total knee arthroplasty: (2) Knee osteoarthritis: (3) SLE (systemic lupus erythematosus related syndrome): (4) Morbid obesity with BMI of 50.0-59.9, adult: (5) Impaired mobility and activities of daily living: (6) Hypertension: (7) Prediabetes: Final Diagnosis Final Discharge Diagnosis: As above Summary Hospital Course Hospital course: Ms. Palma is a 48 year old female with multiple comorbidities including systemiclupus erythematosus, morbid obesity, HTN, HLD, prediabetes who presents to acuteinpatient rehabilitation unit with functional impairments in the setting of lefttotal knee arthroplasty. Patient reports severe osteoarthritis of the joint with [id number] resultingin significant discomfort and difficulty with mobility she failed multimodality conservative treatment. Presented to [facility] for an elective knee replacement on 10/30. Procedure was uncomplicated. She is to weight-bear as tolerated to the operative extremity. DVT prophylaxis with 325 mg of aspirin twice daily. She was evaluated by PT/OT and recommended acute rehab. On arrival patient is alert, pleasant, oriented. Reports 10/10 pain in the left knee with movement, less severe at rest. Patient reports that her pain had became worse after beingtransferred from the ambulance cot to the bed as her leg got accidentally twisted in a wrong direction . I will obtain an x-ray of the knee to ensure proper hardware alignment and no acute bony injury. I reviewed patient's medications with her at the bedside. She reports a historyof prediabetes managed with metformin, which however years to have been discontinued while at [facility]. Per the patient her most recent A1c level was 6.4. I will check her A1c tomorrow a.m.; start daily blood glucose checks, she is also on prednisone at this time. Will adjust the regimen based on lab results. REHAB COURSE: This patient was admitted to rehab for the above diagnoses. The patient tolerated therapy well and made excellent functional progress. Was IND on day ofdischarge. No major complications while on rehab. I am recommend f/u with PCP as patient endorses chronic urgency with urinary. NoUTI. In addition, patient voiced interest in Ozempic for which I believe she would be a good candidate given BMI and h/o prediabetes. The patient was discharged home in good condition. Time Spent with Patient Time spent providing/coordinating discharge services (# min): 32 Discharge Plan Discharge Plan Patient Disposition: Home Activity: Ambulate as Tolerated Diet: Regular Additional Instructions: -Activity: weight bearing as tolerated, with assistance as needed. keep foot of bed flat, no pillows under knee while resting to promote proper alignment/healing. -Diet: regular. -Wound/Skin Care to knee incision: maintain island dressing to knee incision until follow up with your surgeon-see below for appt details. -Continue to monitor your fingerstick blood glucose daily and PRN. Keep a log todiscuss with your PCP. You will have Outpatient Therapy at [facility] [place] ( ). You have been given prescriptions for new and/or needed medications. These prescriptions are for a one-time fill only, with no re-fills. For further re-fills going forward, you will need to address with your PCP at your follow up appointment, or by calling your PCP?s office prior to the prescriptions running out. NOTE: please call within 24 hours if you need to cancel or change any follow up appointments. Arrive early to all follow up appointments, bring current medication list, photo ID and any insurance card(s) to all future follow ups (listed below). Please remember to wear a mask to all appointments. If you develop any symptoms (cough, fever/chills, shortness of breath, sore throat, nausea/vomiting, etc.) please contact your provider's office to inform them prior to your appointment. Instructions: Type 2 diabetes, Metformin, How to Keep Track of Your Blood Sugar, Know your Meds Prescriptions: New metformin 500 mg Tablet 1,000 mg PO BID.WITH.MEALS Qty: 60 0RF acetaminophen 500 mg Tablet 1,000 mg PO TID 30 Days Qty: 180 0RF oxycodone 5 mg Tablet 10 mg PO Q4HR PRN (Reason: Pain Scale 7 - 10) 7 Days Qty: 42 0RF diclofenac sodium 1 % Gel 2 g topical TID Qty: 100 0RF Continued ascorbic acid (vitamin C) 500 mg capsule 500 mg PO DAILY [id number]-uikizrxejwmet-kzyw [Fioricet] 50-300-40 mg capsule 1 cap PO Q4HR PRN (Reason: headache) magnesium oxide 400 mg magnesium capsule 400 mg PO DAILY multivitamin Tablet 1 tab PO DAILY aspirin 325 mg tablet 325 mg PO BID 21 Days Qty: 42 0RF hydroxyzine HCl 50 mg tablet 50 mg PO TID 30 Days Qty: 90 0RF baclofen 10 mg tablet 10 mg PO DAILY PRN (Reason: muscle spasm) Qty: 30 0RF amlodipine 10 mg tablet 10 mg PO DAILY 30 Days Qty: 30 0RF losartan 25 mg tablet 25 mg PO DAILY 30 Days Qty: 30 0RF omeprazole 20 mg capsule,delayed release(DR/EC) 20 mg PO DAILY 30 Days Qty: 30 0RF montelukast 10 mg tablet 10 mg PO DAILY 30 Days Qty: 30 0RF ondansetron 4 mg tablet,disintegrating 4 mg PO Q8HR PRN (Reason: nausea and vomiting) Qty: 30 0RF azathioprine 100 mg tablet 100 mg PO BID 30 Days Qty: 60 0RF topiramate 50 mg tablet 50 mg PO BID 30 Days Qty: 60 0RF duloxetine 60 mg capsule,delayed release(DR/EC) 60 mg PO DAILY 30 Days Qty: 30 0RF Discontinued docusate sodium [Colace] 100 mg capsule 100 mg PO BID oxycodone-acetaminophen 5-325 mg tablet 1 tab PO Q6HR PRN (Reason: pain 7-10) prednisone 20 mg tablet 20 mg PO DAILY Rx Instructions: days 11-21 of therapy Premarin 0.9 mg tablet 0.9 mg PO DAILY Rx Instructions: cyclically Other Ambulatory Orders: DME Home Medical Equipment (Routine) Timeframe: 20231115 Location: Determined by Patient Ordered By: Jonny Bentley DME Home Medical Equipment (Routine) Timeframe: 20231113 Location: Determined by Patient Ordered By: Jonny Bentley Follow Up: Ashkan Phelan MD [Other] - 11/20/23 11:00 am [facility]ILCOX, [facility]) Lyssa Park MD [Referring] - 11/19/23 1:15 pm (Orthopedic Surgeon- appointment is at [facility] [place] [address]. )) Jordyn Barrera APRN, NP-C [Primary Care Provider] - 11/19/23 10:00 am () Jonny Bentley MD [Active Staff] - (Follow up with rehab physician as needed) Exam Physical Exam Vital Signs: Temp Pulse Resp BP Pulse Ox O2 Del Method O2 Flow Rate 98.7 F 98 18 132/89 94 L Room Air 1.5 11/16/23 05:00 11/16/23 08:29 11/16/23 05:00 11/16/23 08:29 11/16/23 08:29 11/15/23 23:30 11/13/23 05:56 Narrative: General: Awake, alert, oriented x3. obese HENT: Normal to inspection, normocephalic, atraumatic Eyes: PERRL, normal conjunctiva and sclera Neck: Normal ROM, normal visual inspection. Trachea midline. Cardio: Extremities well perfused Respiratory: Normal respiratory effort. No respiratory distress. GI: Abdomen obese, soft, nontender, nondistended Neuro: CN II-XII intact. Strength 4+ /5 left lower extremity, otherwise unremarkable Extremities: Lymphedema bilateral lower extremities Psych: Mood and affect appropriate. Normal speech. Diagnostic Studies Completed and Pending Studies Labs on day of discharge: 11/16/23 06:23: POC Glucose 92 Documented By: Jonny Bentley MD 922 Signed By: <Electronically signed by Jonny Bentley MD> 11/16/23 [address] [facility] Work Phone: [phone] 595-714409-05-2024 Progress note Author Jonny Bentley [facility] November 15, 2023 1:59pm Note Date/Time November 15, 2023 1:59pm [facility] [address] [place] [address] Physiatry(Rehab) Progress Note Signed Patient: Navdeep Palma MR#: [id number] : 1975 Acct:[id number] Age/Sex: 48 / F Adm Date: 4 Loc: Room: 9S8590-6 Type: ADM IN Attending Dr: Jonny Bentley MD Copies to: ~ Date of Service: 11/15/2023 Subjective Subjective Narrative: Ms. Palma is a 48 year old female with multiple comorbidities including systemiclupus erythematosus, morbid obesity, HTN, HLD, prediabetes who presents to acuteinpatient rehabilitation unit with functional impairments in the setting of lefttotal knee arthroplasty. Patient reports severe osteoarthritis of the joint with mbxr-sm-uhze resultingin significant discomfort and difficulty with mobility she failed multimodality conservative treatment. Presented to [facility] for an elective knee replacement on 10/30. Procedure was uncomplicated. She is to weight-bear as tolerated to the operative extremity. DVT prophylaxis with 325 mg of aspirin twice daily. She was evaluated by PT/OT and recommended acute rehab. On arrival patient is alert, pleasant, oriented. Reports 10/10 pain in the left knee with movement, less severe at rest. Patient reports that her pain had became worse after beingtransferred from the ambulance cot to the bed as her leg got accidentally twisted in a wrong direction . I will obtain an x-ray of the knee to ensure proper hardware alignment and no acute bony injury. I reviewed patient's medications with her at the bedside. She reports a historyof prediabetes managed with metformin, which however years to have been discontinued while at [facility]. Per the patient her most recent A1c level was 6.4. I will check her A1c tomorrow a.m.; start daily blood glucose checks, she is also on prednisone at this time. Will adjust the regimen based on lab results. INTERVAL HISTORY: Patient was seen and evaluated today at bedside. Lying in bed. She states that she was feeling ill this morning but this improved. Patient otherwise not doing too bad. Functionally improving. Essentially IND at this time. Review of Systems Review of Systems All other systems reviewed & are negative unless noted below or in HPI Exam Physical Exam Vital Signs: Temp Pulse Resp BP Pulse Ox O2 Del Method O2 Flow Rate 97.9 F 88 18 142/85 H 94 L Room Air 1.5 11/15/23 05:00 11/15/23 08:40 11/15/23 05:00 11/15/23 08:40 11/15/23 08:40 11/15/23 07:30 11/13/23 05:56 Narrative: General: Awake, alert, oriented x3. obese HENT: Normal to inspection, normocephalic, atraumatic Eyes: PERRL, normal conjunctiva and sclera Neck: Normal ROM, normal visual inspection. Trachea midline. Cardio: Extremities well perfused Respiratory: Normal respiratory effort. No respiratory distress. GI: Abdomen obese, soft, nontender, nondistended Neuro: CN II-XII intact. Strength 4+ /5 left lower extremity, otherwise unremarkable Extremities: Lymphedema bilateral lower extremities Psych: Mood and affect appropriate. Normal speech. Objective Labs 11/13/23 05:02 11/13/23 05:02 Labs: Laboratory Results - last 24 hr 11/15/23 05:52 POC Glucose 105 Medications and Allergies Allergies and Active Meds: Allergies acetaminophen [[place]] Allergy (Unknown, Verified 10/31/22 10:45) Itchy cyclobenzaprine [Flexeril] Allergy (Unknown, Verified 10/31/22 10:45) Itchy hydrocodone [[place]] Allergy (Unknown, Verified 10/31/22 10:45) Itchy hydrochlorothiazide Adverse Reaction (Verified 07/04/19 10:35) Dizziness Active Medications Generic Name Dose Route Start Last Admin Trade Name Freq PRN Reason Stop Dose Admin Acetaminophen 1,000 mg 11/07/23 14:00 11/15/23 13:04 Acetaminophen 500 Mg Tablet PO 11/06/24 13:59 1,000 mg TID YASMANY Administration Acetaminophen/Butalbital/Caffeine 1 tab 11/06/23 18:59 Butalb/Acetamin/Caffeine 50-325-40 1 Tab Tablet PO 11/05/24 18:58 Q4HR PRN headache Al Hydrox/Mg Hydrox/Simethicone 30 ml 11/06/23 17:07 Mag Hydrox/Al Hydrox/Simeth 30 Ml Udc PO 11/05/24 17:06 Q4H PRN Indigestion Amlodipine Besylate 10 mg 11/07/23 09:00 11/15/23 08:31 Amlodipine 10 Mg Tablet PO 11/06/24 08:59 10 mg DAILY [place]AS[place]Y Administration Ascorbic Acid 500 mg 11/07/23 09:00 11/15/23 08:31 Ascorbic Acid 500 Mg Tablet PO 11/06/24 08:59 500 mg DAILY [place]AS[place]Y Administration Aspirin 325 mg 11/06/23 21:00 11/07/23 09:19 Aspirin 325 Mg Tablet PO 11/05/24 20:59 325 mg BID [place] Administration Azathioprine 100 mg 11/06/23 23:00 11/15/23 08:31 Azathioprine 50 Mg Tablet PO 11/05/24 22:59 100 mg BID [place] Administration Baclofen 10 mg 11/06/23 17:05 11/14/23 23:08 Baclofen 10 Mg Tablet PO 11/05/24 17:04 10 mg DAILY PRN Administration muscle spasm Bisacodyl 10 mg 11/06/23 17:07 Bisacodyl 10 Mg Supp.Rect AL 11/05/24 17:06 DAILY PRN Constipation Diclofenac Sodium 2 gm 11/13/23 14:00 11/15/23 13:04 Diclofenac Sodium 1% Gel 100 Gm Tube TOPICAL 11/12/24 13:59 Not Given TID YASMANY Docusate Sodium 100 mg 11/06/23 21:00 11/15/23 08:31 Docusate 100 Mg Capsule PO 11/05/24 20:59 100 mg BID [place] Administration Docusate Sodium 100 mg 11/06/23 17:07 Docusate 100 Mg Capsule PO 11/05/24 17:06 BID PRN Constipation Docusate Sodium 283 mg 11/06/23 17:07 Docusate Enema 283 Mg/5 Ml Enema AL 11/05/24 17:06 DAILY PRN Constipation Duloxetine HCl 60 mg 11/06/23 22:30 11/14/23 20:16 Duloxetine 60 Mg Capsule.Dr PO 11/05/24 22:29 60 mg HS [place]Y Administration Enoxaparin Sodium 40 mg 11/07/23 21:00 11/15/23 08:31 Enoxaparin 40 Mg/0.4 Ml Syringe SUBCUT 11/06/24 20:59 40 mg BID [place] Administration Hydroxyzine Pamoate 50 mg 11/06/23 22:00 11/15/23 13:04 Hydroxyzine Pamoate 50 Mg Capsule PO 11/05/24 21:59 50 mg TID [place]AS[place] Administration Lactulose 30 gm 11/06/23 17:07 11/10/23 06:24 Lactulose 20 Gm/30 Ml Udc PO 11/05/24 17:06 30 gm DAILY PRN Administration Constipation Losartan Potassium 25 mg 11/06/23 22:30 11/14/23 20:17 Losartan 25 Mg Tablet PO 11/05/24 22:29 25 mg HS Y[place] Administration Magnesium Oxide 400 mg 11/07/23 09:00 11/15/23 08:31 Magnesium Oxide 400 Mg Tablet PO 11/06/24 08:59 400 mg DAILY [place] Administration Metformin HCl 1,000 mg 11/09/23 17:00 11/15/23 08:30 Metformin 500 Mg Tablet PO 11/08/24 16:59 1,000 mg BID.WITH.MEALS [place]AS[place]Y Administration Montelukast Sodium 10 mg 11/07/23 09:00 11/15/23 08:31 Montelukast 10 Mg Tablet PO 11/06/24 08:59 10 mg DAILY [place]AS[place] Administration Multivitamins 1 tab 11/07/23 09:00 11/15/23 08:31 Multivitamin 1 Tab Tablet PO 11/06/24 08:59 1 tab DAILY [place] Administration Ondansetron HCl 4 mg 11/06/23 17:05 11/15/23 09:19 Ondansetron Odt 4 Mg Tab.Rapdis PO 11/05/24 17:04 4 mg Q8HR PRN Administration nausea and vomiting Oxycodone HCl 5 mg 11/07/23 00:16 11/15/23 08:34 Oxycodone Ir 5 Mg Tablet PO 5 mg Q4HR PRN Administration Pain Scale 4 - 6 Oxycodone HCl 10 mg 11/07/23 00:16 11/15/23 13:08 Oxycodone Ir 5 Mg Tablet PO 10 mg Q4HR PRN Administration Pain Scale 7 - 10 Pantoprazole Sodium 40 mg 11/07/23 09:00 11/15/23 08:31 Pantoprazole 40 Mg Tablet. PO 11/06/24 08:59 40 mg DAILY YAS[place]Y Administration Sennosides 2 tab 11/07/23 12:00 11/09/23 21:05 Sennosides 8.6 Mg Tablet PO 11/06/24 11:59 2 tab DAILY@12 PRN Administration If no BM in 2 days Sodium Chloride 0 ml 11/06/23 17:07 Sodium Chloride 0.9 % 10 Ml Syringe IV-PUSH 11/05/24 17:06 PRN PRN Flush Topiramate 50 mg 11/06/23 22:30 11/14/23 20:17 Topiramate 50 Mg Tablet PO 11/05/24 22:29 50 mg HS YAS[place]Y Administration Assessment/Plan Assessment/Plan (1) Hx of total knee arthroplasty: (2) Knee osteoarthritis: (3) SLE (systemic lupus erythematosus related syndrome): (4) Morbid obesity with BMI of 50.0-59.9, adult: (5) Impaired mobility and activities of daily living: (6) Hypertension: (7) Prediabetes: Plan 48-year-old female with PMH of SLE, hypertension, morbid obesity, prediabetes who presents to acute inpatient rehabilitation unit with functional impairments secondary to an elective left total knee arthroplasty. -Patient continues to progress with therapy -DC set for 11/15. Patient agreeable Patient education Pressure ulcer prophylaxis; encourage mobilization, frequent postural changes, pressure-relief techniques DVT prophylaxis Encourage deep breathing exercise incentive spirometry. Monitor bladder. Toileting schedule. Continue current bladder management, with scans as needed and CIC if needed. Start bowel care program every day to obtain continence, prevent ileus. Maintain fall precautions Gait and balance retraining Functional training and self-care and home management, including activities of daily living and instrumental activities of daily living Provision of the necessary gait aids and functional adaptive equipment to enhance the patient's a functional muslim Ensure adequate nutrition and hydration Sleep Discharge planning. Patient was personally seen by me, Dr. Bentley, on the day of encounter, reviewed the history and the relevant portions of the chart, including current orders, allied health and homemaking rehabilitation consultant notes, labs/imaging and performed humphries elements of exam and I formulated the plan of care and facilitated the medical decision making. I completed a substantive portion of this encounter, the medical decision making portion of this note in its entirety, including Allied health note review, nursing note review, homemaking rehabilitation consultant note review, discussion with nursing and case management, and more than 50% of my time was spent on counseling and coordination of care, time spent 25 minutes Documented By: Jonny Bentley MD [id number] Signed By: <Electronically signed by Jonny Bentley MD> 11/15/23 49[address] [facility] Work Phone: 1([phone]) 587-486709-04-2024 Progress note Author Jonny Bentley [facility] November 14, 2023 2:15pm Note Date/Time November 14, 2023 1:29pm [facility] [address] [place] [address] Physiatry(Rehab) Progress Note Signed with Addenda Patient: Navdeep Palma MR#: [id number] : 1975 Acct:[id number] Age/Sex: 48 / F Adm Date: 4 Loc: Room: [address] [place] [address] Type: ADM IN Attending Dr: Jonny Bentley MD Copies to: ~ ADDENDUM1 Patient was prescribed a bariatric shower chair given body habitus at discharge for safe bathing/showering as to prevent falls; this self-care activity cannot be accomplished with less invasive equipment. Bariatric bedside commode prescribed at discharge as bathroom is located on a different floor and stair navigation is not appropriate due to pain and functional deficits. Bariatric front wheeled walker was prescribed at discharge due to impaired mobility unable to be corrected with a cane or crutches for patient safety due to pain and functional deficits due to recent TKA. Addendum Documented By: Jonny Bentley MD 11/14/23 1415 Addendum Signed By: <Electronically signed by Jonny Bentley MD> 11/14/23 1415 Date of Service: 11/14/2023 Subjective Subjective Narrative: Ms. Palma is a 48 year old female with multiple comorbidities including systemiclupus erythematosus, morbid obesity, HTN, HLD, prediabetes who presents to acuteinpatient rehabilitation unit with functional impairments in the setting of lefttotal knee arthroplasty. Patient reports severe osteoarthritis of the joint with [id number] resultingin significant discomfort and difficulty with mobility she failed multimodality conservative treatment. Presented to [facility] for an elective knee replacement on 10/30. Procedure was uncomplicated. She is to weight-bear as tolerated to the operative extremity. DVT prophylaxis with 325 mg of aspirin twice daily. She was evaluated by PT/OT and recommended acute rehab. On arrival patient is alert, pleasant, oriented. Reports 10/10 pain in the left knee with movement, less severe at rest. Patient reports that her pain had became worse after beingtransferred from the ambulance cot to the bed as her leg got accidentally twisted in a wrong direction . I will obtain an x-ray of the knee to ensure proper hardware alignment and no acute bony injury. I reviewed patient's medications with her at the bedside. She reports a historyof prediabetes managed with metformin, which however years to have been discontinued while at [facility]. Per the patient her most recent A1c level was 6.4. I will check her A1c tomorrow a.m.; start daily blood glucose checks, she is also on prednisone at this time. Will adjust the regimen based on lab results. INTERVAL HISTORY: Patient was seen and evaluated while working in the therapy gym today. She appears in no distress. She denies any chest pain, SOB, fever, chills. She does state that her pain is flaired slightly but relates this to missing a dose of pain medications. She has no major concerns. Continues to make functional progress. Review of Systems Review of Systems All other systems reviewed & are negative unless noted below or in HPI Exam Physical Exam Vital Signs: Temp Pulse Resp BP Pulse Ox O2 Del Method O2 Flow Rate 98.6 F 86 18 126/78 94 L Room Air 1.5 11/14/23 05:54 11/14/23 05:54 11/14/23 05:54 11/14/23 05:54 11/14/23 05:54 11/14/23 07:30 11/13/23 05:56 Narrative: General: Awake, alert, oriented x3. obese HENT: Normal to inspection, normocephalic, atraumatic Eyes: PERRL, normal conjunctiva and sclera Neck: Normal ROM, normal visual inspection. Trachea midline. Cardio: Extremities well perfused Respiratory: Normal respiratory effort. No respiratory distress. GI: Abdomen obese, soft, nontender, nondistended Neuro: CN II-XII intact. Strength 4+ /5 left lower extremity, otherwise unremarkable Extremities: Lymphedema bilateral lower extremities Psych: Mood and affect appropriate. Normal speech. Objective Labs 11/13/23 05:02 11/13/23 05:02 Labs: Laboratory Results - last 24 hr 11/13/23 11/14/23 22:45 06:06 POC Glucose 93 POC Glucose Comment Glu2: cleaned meter Urine Color Yellow Urine Appearance Clear Urine pH 6.0 Ur Specific [place] 1.023 Urine Protein Negative Urine Glucose (UA) Normal Urine Ketones Negative Urine Occult Blood Negative Urine Nitrite Negative Urine Bilirubin Negative Urine Urobilinogen 2 H Ur Leukocyte Esterase Negative Medications and Allergies Allergies and Active Meds: Allergies acetaminophen [[place]] Allergy (Unknown, Verified 10/31/22 10:45) Itchy cyclobenzaprine [Flexeril] Allergy (Unknown, Verified 10/31/22 10:45) Itchy hydrocodone [[place]] Allergy (Unknown, Verified 10/31/22 10:45) Itchy hydrochlorothiazide Adverse Reaction (Verified 07/04/19 10:35) Dizziness Active Medications Generic Name Dose Route Start Last Admin Trade Name Freq PRN Reason Stop Dose Admin Acetaminophen 1,000 mg 11/07/23 14:00 11/14/23 10:14 Acetaminophen 500 Mg Tablet PO 11/06/24 13:59 1,000 mg TID [place] Administration Acetaminophen/Butalbital/Caffeine 1 tab 11/06/23 18:59 Butalb/Acetamin/Caffeine 50-325-40 1 Tab Tablet PO 11/05/24 18:58 Q4HR PRN headache Al Hydrox/Mg Hydrox/Simethicone 30 ml 11/06/23 17:07 Mag Hydrox/Al Hydrox/Simeth 30 Ml Udc PO 11/05/24 17:06 Q4H PRN Indigestion Amlodipine Besylate 10 mg 11/07/23 09:00 11/14/23 10:13 Amlodipine 10 Mg Tablet PO 11/06/24 08:59 10 mg DAILY [place] Administration Ascorbic Acid 500 mg 11/07/23 09:00 11/14/23 10:15 Ascorbic Acid 500 Mg Tablet PO 11/06/24 08:59 500 mg DAILY [place] Administration Aspirin 325 mg 11/06/23 21:00 11/07/23 09:19 Aspirin 325 Mg Tablet PO 11/05/24 20:59 325 mg BID [place] Administration Azathioprine 100 mg 11/06/23 23:00 11/14/23 10:17 Azathioprine 50 Mg Tablet PO 11/05/24 22:59 100 mg BID [place] Administration Baclofen 10 mg 11/06/23 17:05 11/13/23 22:34 Baclofen 10 Mg Tablet PO 11/05/24 17:04 10 mg DAILY PRN Administration muscle spasm Bisacodyl 10 mg 11/06/23 17:07 Bisacodyl 10 Mg Supp.Rect AL 11/05/24 17:06 DAILY PRN Constipation Diclofenac Sodium 2 gm 11/13/23 14:00 11/14/23 10:22 Diclofenac Sodium 1% Gel 100 Gm Tube TOPICAL 11/12/24 13:59 2 gm TID [place]AS[place] Administration Docusate Sodium 100 mg 11/06/23 21:00 11/14/23 10:17 Docusate 100 Mg Capsule PO 11/05/24 20:59 100 mg BID [place] Administration Docusate Sodium 100 mg 11/06/23 17:07 Docusate 100 Mg Capsule PO 11/05/24 17:06 BID PRN Constipation Docusate Sodium 283 mg 11/06/23 17:07 Docusate Enema 283 Mg/5 Ml Enema AL 11/05/24 17:06 DAILY PRN Constipation Duloxetine HCl 60 mg 11/06/23 22:30 11/13/23 22:34 Duloxetine 60 Mg Capsule.Dr PO 11/05/24 22:29 60 mg HS [place] Administration Enoxaparin Sodium 40 mg 11/07/23 21:00 11/14/23 10:21 Enoxaparin 40 Mg/0.4 Ml Syringe SUBCUT 11/06/24 20:59 40 mg BID [place] Administration Hydroxyzine Pamoate 50 mg 11/06/23 22:00 11/14/23 10:16 Hydroxyzine Pamoate 50 Mg Capsule PO 11/05/24 21:59 50 mg TID YAS[place] Administration Lactulose 30 gm 11/06/23 17:07 11/10/23 06:24 Lactulose 20 Gm/30 Ml Udc PO 11/05/24 17:06 30 gm DAILY PRN Administration Constipation Losartan Potassium 25 mg 11/06/23 22:30 11/13/23 22:35 Losartan 25 Mg Tablet PO 11/05/24 22:29 25 mg HS Y[place] Administration Magnesium Oxide 400 mg 11/07/23 09:00 11/14/23 10:13 Magnesium Oxide 400 Mg Tablet PO 11/06/24 08:59 400 mg DAILY [place] Administration Metformin HCl 1,000 mg 11/09/23 17:00 11/14/23 10:16 Metformin 500 Mg Tablet PO 11/08/24 16:59 1,000 mg BID.WITH.MEALS YAS[place]Y Administration Montelukast Sodium 10 mg 11/07/23 09:00 11/14/23 10:16 Montelukast 10 Mg Tablet PO 11/06/24 08:59 10 mg DAILY [place] Administration Multivitamins 1 tab 11/07/23 09:00 11/14/23 10:16 Multivitamin 1 Tab Tablet PO 11/06/24 08:59 1 tab DAILY [place] Administration Ondansetron HCl 4 mg 11/06/23 17:05 11/13/23 08:38 Ondansetron Odt 4 Mg Tab.Rapdis PO 11/05/24 17:04 4 mg Q8HR PRN Administration nausea and vomiting Oxycodone HCl 5 mg 11/07/23 00:16 Oxycodone Ir 5 Mg Tablet PO Q4HR PRN Pain Scale 4 - 6 Oxycodone HCl 10 mg 11/07/23 00:16 11/14/23 10:18 Oxycodone Ir 5 Mg Tablet PO 10 mg Q4HR PRN Administration Pain Scale 7 - 10 Pantoprazole Sodium 40 mg 11/07/23 09:00 11/14/23 10:12 Pantoprazole 40 Mg Tablet.Dr PO 11/06/24 08:59 40 mg DAILY YAS[place] Administration Sennosides 2 tab 11/07/23 12:00 11/09/23 21:05 Sennosides 8.6 Mg Tablet PO 11/06/24 11:59 2 tab DAILY@12 PRN Administration If no BM in 2 days Sodium Chloride 0 ml 11/06/23 17:07 Sodium Chloride 0.9 % 10 Ml Syringe IV-PUSH 11/05/24 17:06 PRN PRN Flush Topiramate 50 mg 11/06/23 22:30 11/13/23 22:34 Topiramate 50 Mg Tablet PO 11/05/24 22:29 50 mg HS [place]AS[place]Y Administration Assessment/Plan Assessment/Plan (1) Hx of total knee arthroplasty: (2) Knee osteoarthritis: (3) SLE (systemic lupus erythematosus related syndrome): (4) Morbid obesity with BMI of 50.0-59.9, adult: (5) Impaired mobility and activities of daily living: (6) Hypertension: (7) Prediabetes: Plan 48-year-old female with PMH of SLE, hypertension, morbid obesity, prediabetes who presents to acute inpatient rehabilitation unit with functional impairments secondary to an elective left total knee arthroplasty. -Patient continues to progress with therapy -No major concerns today. Discussed DC meds with patient -UA appears negative. Patient endorses primarily urinary urgency which is a chronic issue. Recommended f/u with PCP outpatient -DC set for 11/15. Patient agreeable Patient education Pressure ulcer prophylaxis; encourage mobilization, frequent postural changes, pressure-relief techniques DVT prophylaxis Encourage deep breathing exercise incentive spirometry. Monitor bladder. Toileting schedule. Continue current bladder management, with scans as needed and CIC if needed. Start bowel care program every day to obtain continence, prevent ileus. Maintain fall precautions Gait and balance retraining Functional training and self-care and home management, including activities of daily living and instrumental activities of daily living Provision of the necessary gait aids and functional adaptive equipment to enhance the patient's a functional muslim Ensure adequate nutrition and hydration Sleep Discharge planning. Patient was personally seen by me, Dr. Bentley, on the day of encounter, reviewed the history and the relevant portions of the chart, including current orders, allied health and homemaking rehabilitation consultant notes, labs/imaging and performed humphries elements of exam and I formulated the plan of care and facilitated the medical decision making. I completed a substantive portion of this encounter, the medical decision making portion of this note in its entirety, including Allied health note review, nursing note review, homemaking rehabilitation consultant note review, discussion with nursing and case management, and more than 50% of my time was spent on counseling and coordination of care, time spent 30 minutes Documented By: Jonny Bentley MD [id number] Signed By: <Electronically signed by Jonny Bentley MD> 11/14/23 1329 [facility] Work Phone: 1([phone]) 284-601209-03-2024 Progress note Author Jonny Bentley [facility] November 13, 2023 2:21pm Note Date/Time November 13, 2023 2:21pm [facility] [address] [place] [address] Physiatry(Rehab) Progress Note Signed Patient: Navdeep Palma MR#: [id number] : 1975 Acct:[id number] Age/Sex: 48 / F Adm Date: 4 Loc: 5T Room: [address] [place] [address] Type: ADM IN Attending Dr: Jonny Bentley MD Copies to: ~ Date of Service: 11/13/2023 Subjective Subjective Narrative: Ms. Palma is a 48 year old female with multiple comorbidities including systemiclupus erythematosus, morbid obesity, HTN, HLD, prediabetes who presents to acuteinpatient rehabilitation unit with functional impairments in the setting of lefttotal knee arthroplasty. Patient reports severe osteoarthritis of the joint with [id number] resultingin significant discomfort and difficulty with mobility she failed multimodality conservative treatment. Presented to [facility] for an elective knee replacement on 10/30. Procedure was uncomplicated. She is to weight-bear as tolerated to the operative extremity. DVT prophylaxis with 325 mg of aspirin twice daily. She was evaluated by PT/OT and recommended acute rehab. On arrival patient is alert, pleasant, oriented. Reports 10/10 pain in the left knee with movement, less severe at rest. Patient reports that her pain had became worse after beingtransferred from the ambulance cot to the bed as her leg got accidentally twisted in a wrong direction . I will obtain an x-ray of the knee to ensure proper hardware alignment and no acute bony injury. I reviewed patient's medications with her at the bedside. She reports a historyof prediabetes managed with metformin, which however years to have been discontinued while at [facility]. Per the patient her most recent A1c level was 6.4. I will check her A1c tomorrow a.m.; start daily blood glucose checks, she is also on prednisone at this time. Will adjust the regimen based on lab results. INTERVAL HISTORY: Patient seen and evaluated today. Sitting up in bed in no distress. She denies chest pain, SOB, fever, chills. continues to have some pain in the left knee. Admits to some visual complaints. Sounds like a visual aura which the patient notes she gets before migraines. From a functional standpoint, the patient is doing well. Essentially modified independent. Discussed during team meeting. Plan for DC is 9/6 which the patientis agreeable to. Review of Systems Review of Systems All other systems reviewed & are negative unless noted below or in HPI Exam Physical Exam Vital Signs: Temp Pulse Resp BP Pulse Ox O2 Del Method O2 Flow Rate 98.4 F 91 20 133/82 97 Nasal Cannula 1.5 11/13/23 05:56 11/13/23 05:56 11/13/23 05:56 11/13/23 08:42 11/13/23 05:56 11/13/23 05:56 11/13/23 05:56 Narrative: General: Awake, alert, oriented x3. obese HENT: Normal to inspection, normocephalic, atraumatic Eyes: PERRL, normal conjunctiva and sclera Neck: Normal ROM, normal visual inspection. Trachea midline. Cardio: Regular heart rate and rhythm Respiratory: Clear to auscultation bilaterally. Normal respiratory effort. No respiratory distress. GI: Abdomen obese, soft, nontender, nondistended, active bowel sounds x4 quadrants Neuro: CN II-XII intact. Strength 4+ /5 left lower extremity, otherwise unremarkable Extremities: Lymphedema bilateral lower extremities Psych: Mood and affect appropriate. Normal speech. Objective Labs 11/13/23 05:02 11/13/23 05:02 Labs: Laboratory Results - last 24 hr 11/13/23 11/13/23 05:02 06:00 Corrected WBC 6.3 Uncorrected WBC Count 6.3 RBC 3.25 L Hgb 9.9 L Hct 30.2 L MCV 92.8 MCH 30.6 MCHC 32.9 RDW 14.9 Plt Count 422 MPV 6.5 Neut % (Auto) 59.2 Lymph % (Auto) 32.1 Keith % (Auto) 6.2 Eos % (Auto) 1.2 Baso % (Auto) 1.3 Nucleat RBC Rel Count 0.4 Neut # (Auto) 3.7 Lymph # (Auto) 2.0 Keith # (Auto) 0.4 Eos # (Auto) 0.1 Baso # (Auto) 0.1 PHA Creatinine Clear 162.78 Sodium 142 Potassium 3.4 L Chloride 105 Carbon Dioxide 27.9 Anion Gap 12.5 BUN 7 Creatinine 0.65 Est GFR (CKD-EPI) > 60.0 Glucose 94 POC Glucose 103 Calcium 8.3 L Medications and Allergies Allergies and Active Meds: Allergies acetaminophen [[place]] Allergy (Unknown, Verified 10/31/22 10:45) Itchy cyclobenzaprine [Flexeril] Allergy (Unknown, Verified 10/31/22 10:45) Itchy hydrocodone [[place]] Allergy (Unknown, Verified 10/31/22 10:45) Itchy hydrochlorothiazide Adverse Reaction (Verified 07/04/19 10:35) Dizziness Active Medications Generic Name Dose Route Start Last Admin Trade Name Freq PRN Reason Stop Dose Admin Acetaminophen 1,000 mg 11/07/23 14:00 11/13/23 08:33 Acetaminophen 500 Mg Tablet PO 11/06/24 13:59 1,000 mg TID [place]AS[place] Administration Acetaminophen/Butalbital/Caffeine 1 tab 11/06/23 18:59 Butalb/Acetamin/Caffeine 50-325-40 1 Tab Tablet PO 11/05/24 18:58 Q4HR PRN headache Al Hydrox/Mg Hydrox/Simethicone 30 ml 11/06/23 17:07 Mag Hydrox/Al Hydrox/Simeth 30 Ml Udc PO 11/05/24 17:06 Q4H PRN Indigestion Amlodipine Besylate 10 mg 11/07/23 09:00 11/13/23 08:32 Amlodipine 10 Mg Tablet PO 11/06/24 08:59 10 mg DAILY [place]AS[place] Administration Ascorbic Acid 500 mg 11/07/23 09:00 11/13/23 08:32 Ascorbic Acid 500 Mg Tablet PO 11/06/24 08:59 500 mg DAILY [place]AS[place]Y Administration Aspirin 325 mg 11/06/23 21:00 11/07/23 09:19 Aspirin 325 Mg Tablet PO 11/05/24 20:59 325 mg BID [place]AS[place]Y Administration Azathioprine 100 mg 11/06/23 23:00 11/13/23 08:45 Azathioprine 50 Mg Tablet PO 11/05/24 22:59 100 mg BID [place] Administration Baclofen 10 mg 11/06/23 17:05 11/12/23 21:16 Baclofen 10 Mg Tablet PO 11/05/24 17:04 10 mg DAILY PRN Administration muscle spasm Bisacodyl 10 mg 11/06/23 17:07 Bisacodyl 10 Mg Supp.Rect AL 11/05/24 17:06 DAILY PRN Constipation Diclofenac Sodium 2 gm 11/13/23 14:00 Diclofenac Sodium 1% Gel 100 Gm Tube TOPICAL 11/12/24 13:59 TID YAS[place]Y Docusate Sodium 100 mg 11/06/23 21:00 11/13/23 08:37 Docusate 100 Mg Capsule PO 11/05/24 20:59 Not Given BID [place]AS[place]Y Docusate Sodium 100 mg 11/06/23 17:07 Docusate 100 Mg Capsule PO 11/05/24 17:06 BID PRN Constipation Docusate Sodium 283 mg 11/06/23 17:07 Docusate Enema 283 Mg/5 Ml Enema AL 11/05/24 17:06 DAILY PRN Constipation Duloxetine HCl 60 mg 11/06/23 22:30 11/12/23 21:12 Duloxetine 60 Mg Capsule.Dr PO 11/05/24 22:29 60 mg HS [place] Administration Enoxaparin Sodium 40 mg 11/07/23 21:00 11/13/23 08:38 Enoxaparin 40 Mg/0.4 Ml Syringe SUBCUT 11/06/24 20:59 40 mg BID [place] Administration Hydroxyzine Pamoate 50 mg 11/06/23 22:00 11/13/23 08:32 Hydroxyzine Pamoate 50 Mg Capsule PO 11/05/24 21:59 50 mg TID [place] Administration Lactulose 30 gm 11/06/23 17:07 11/10/23 06:24 Lactulose 20 Gm/30 Ml Udc PO 11/05/24 17:06 30 gm DAILY PRN Administration Constipation Losartan Potassium 25 mg 11/06/23 22:30 11/12/23 21:12 Losartan 25 Mg Tablet PO 11/05/24 22:29 25 mg HS [place] Administration Magnesium Oxide 400 mg 11/07/23 09:00 11/13/23 08:32 Magnesium Oxide 400 Mg Tablet PO 11/06/24 08:59 400 mg DAILY [place] Administration Metformin HCl 1,000 mg 11/09/23 17:00 11/13/23 08:32 Metformin 500 Mg Tablet PO 11/08/24 16:59 1,000 mg BID.WITH.MEALS [place]Y Administration Montelukast Sodium 10 mg 11/07/23 09:00 11/13/23 08:32 Montelukast 10 Mg Tablet PO 11/06/24 08:59 10 mg DAILY [place] Administration Multivitamins 1 tab 11/07/23 09:00 11/13/23 08:32 Multivitamin 1 Tab Tablet PO 11/06/24 08:59 1 tab DAILY [place] Administration Ondansetron HCl 4 mg 11/06/23 17:05 11/13/23 08:38 Ondansetron Odt 4 Mg Tab.Rapdis PO 11/05/24 17:04 4 mg Q8HR PRN Administration nausea and vomiting Oxycodone HCl 5 mg 11/07/23 00:16 Oxycodone Ir 5 Mg Tablet PO Q4HR PRN Pain Scale 4 - 6 Oxycodone HCl 10 mg 11/07/23 00:16 11/13/23 13:00 Oxycodone Ir 5 Mg Tablet PO 10 mg Q4HR PRN Administration Pain Scale 7 - 10 Pantoprazole Sodium 40 mg 11/07/23 09:00 11/13/23 08:32 Pantoprazole 40 Mg Tablet. PO 11/06/24 08:59 40 mg DAILY [place]Y Administration Prednisone 20 mg 11/07/23 09:00 11/13/23 08:32 Prednisone 20 Mg Tablet PO 11/14/23 08:59 20 mg DAILY [place] Administration Sennosides 2 tab 11/07/23 12:00 11/09/23 21:05 Sennosides 8.6 Mg Tablet PO 11/06/24 11:59 2 tab DAILY@12 PRN Administration If no BM in 2 days Sodium Chloride 0 ml 11/06/23 17:07 Sodium Chloride 0.9 % 10 Ml Syringe IV-PUSH 11/05/24 17:06 PRN PRN Flush Topiramate 50 mg 11/06/23 22:30 11/12/23 21:12 Topiramate 50 Mg Tablet PO 11/05/24 22:29 50 mg HS [place] Administration Assessment/Plan Assessment/Plan (1) SLE (systemic lupus erythematosus related syndrome): (2) Morbid obesity with BMI of 50.0-59.9, adult: (3) Impaired mobility and activities of daily living: (4) Hypertension: (5) Prediabetes: Plan 48-year-old female with PMH of SLE, hypertension, morbid obesity, prediabetes who presents to acute inpatient rehabilitation unit with functional impairments secondary to an elective left total knee arthroplasty. -Patient improving functionally. Essentially modified independent at this time. -Complains of a visual aura today. Monitor for migraines -Still need to obtain UA for urinary symptoms -DC set for 11/15. Patient agreeable Patient education Pressure ulcer prophylaxis; encourage mobilization, frequent postural changes, pressure-relief techniques DVT prophylaxis Encourage deep breathing exercise incentive spirometry. Monitor bladder. Toileting schedule. Continue current bladder management, with scans as needed and CIC if needed. Start bowel care program every day to obtain continence, prevent ileus. Maintain fall precautions Gait and balance retraining Functional training and self-care and home management, including activities of daily living and instrumental activities of daily living Provision of the necessary gait aids and functional adaptive equipment to enhance the patient's a functional muslim Ensure adequate nutrition and hydration Sleep Discharge planning. Patient was personally seen by me, Dr. Bentley, on the day of encounter, reviewed the history and the relevant portions of the chart, including current orders, allied health and homemaking rehabilitation consultant notes, labs/imaging and performed humphries elements of exam and I formulated the plan of care and facilitated the medical decision making. I completed a substantive portion of this encounter, the medical decision making portion of this note in its entirety, including Allied health note review, nursing note review, homemaking rehabilitation consultant note review, discussion with nursing and case management, and more than 50% of my time was spent on counseling and coordination of care, time spent 30 minutes Case reviewed at weekly team conference, discussed progress and goals of care, barriers/problems to date and discharge planning. Documented By: Jonny Bentley MD [id number] Signed By: <Electronically signed by Jonny Bentley MD> 11/13/23 1421 [facility] Work Phone: 1(196) 389-706309-03-2024 Progress note Author Jonny Bentley [facility] November 13, 2023 9:20am Note Date/Time November 12, 2023 11:40am [facility] [address] [place] [address] Physiatry(Rehab) Progress Note Signed Patient: Navdeep Palma MR#: [id number] : 1975 Acct:[id number] Age/Sex: 48 / F Adm Date: 4 Loc: Room: [address] [place] [address] Type: ADM IN Attending Dr: Jonny Bentlye MD Copies to: ~ Date of Service: 11/12/2023 Subjective Subjective Narrative: Ms. Palma is a 48 year old female with multiple comorbidities including systemiclupus erythematosus, morbid obesity, HTN, HLD, prediabetes who presents to acuteinpatient rehabilitation unit with functional impairments in the setting of lefttotal knee arthroplasty. Patient reports severe osteoarthritis of the joint with [id number] resultingin significant discomfort and difficulty with mobility she failed multimodality conservative treatment. Presented to [facility] for an elective knee replacement on 10/30. Procedure was uncomplicated. She is to weight-bear as tolerated to the operative extremity. DVT prophylaxis with 325 mg of aspirin twice daily. She was evaluated by PT/OT and recommended acute rehab. On arrival patient is alert, pleasant, oriented. Reports 10/10 pain in the left knee with movement, less severe at rest. Patient reports that her pain had became worse after beingtransferred from the ambulance cot to the bed as her leg got accidentally twisted in a wrong direction . I will obtain an x-ray of the knee to ensure proper hardware alignment and no acute bony injury. I reviewed patient's medications with her at the bedside. She reports a historyof prediabetes managed with metformin, which however years to have been discontinued while at [facility]. Per the patient her most recent A1c level was 6.4. I will check her A1c tomorrow a.m.; start daily blood glucose checks, she is also on prednisone at this time. Will adjust the regimen based on lab results. INTERVAL HISTORY: Patient examined in her room while supine in bed. She is alert, pleasant, oriented. Reports some urinary urgency/frequency, although does admit it is relatively chronic for her. Wonders if this is related to prediabetes. Long discussion regarding patient's symptoms and treatment options. This is in part functional,but may be related to urological condition. We can consider a pharmacological treatment and/or urology referral in outpatient settings. Will check a urinalysis to rule out acute infection. No other complaints or concerns today. She continues to do well in therapy. Ambulatory functional distances with a walker and supervision. Independent with transfers and bed mobility. Review of Systems Review of Systems All other systems reviewed & are negative unless noted below or in HPI Exam Physical Exam Vital Signs: Temp Pulse Resp BP Pulse Ox O2 Del Method O2 Flow Rate 97.9 F 95 16 130/81 98 Room Air 2 11/12/23 05:00 11/12/23 05:00 11/12/23 05:00 11/12/23 05:00 11/12/23 05:00 11/12/23 05:00 11/10/23 04:14 Narrative: General: Awake, alert, oriented x3 HENT: Normal to inspection, normocephalic, atraumatic Eyes: PERRL, normal conjunctiva and sclera Neck: Normal ROM, normal visual inspection. Trachea midline. Cardio: Regular heart rate and rhythm Respiratory: Clear to auscultation bilaterally. Normal respiratory effort. No respiratory distress. GI: Abdomen obese, soft, nontender, nondistended, active bowel sounds x4 quadrants Neuro: CN II-XII intact. Strength 4+ /5 left lower extremity, otherwise unremarkable Extremities: Lymphedema bilateral lower extremities Psych: Mood and affect appropriate. Normal speech. Objective Labs 11/07/23 05:42 11/07/23 05:42 Labs: Laboratory Results - last 24 hr 11/12/23 06:17 POC Glucose 107 POC Glucose Comment Glu2: cleaned meter Additional Results Results Comments: I reviewed clinical lab tests, radiology reports and obtained and summated medical records and have ordered follow up lab tests and imaging studies as needed for rehabilitation care. Medications and Allergies Allergies and Active Meds: Allergies acetaminophen [[place]ct[place]] Allergy (Unknown, Verified 10/31/22 10:45) Itchy cyclobenzaprine [Flexeril] Allergy (Unknown, Verified 10/31/22 10:45) Itchy hydrocodone [[place]] Allergy (Unknown, Verified 10/31/22 10:45) Itchy hydrochlorothiazide Adverse Reaction (Verified 07/04/19 10:35) Dizziness Active Medications Generic Name Dose Route Start Last Admin Trade Name Freq PRN Reason Stop Dose Admin Acetaminophen 1,000 mg 11/07/23 14:00 11/12/23 09:35 Acetaminophen 500 Mg Tablet PO 11/06/24 13:59 1,000 mg TID [place]Y Administration Acetaminophen/Butalbital/Caffeine 1 tab 11/06/23 18:59 Butalb/Acetamin/Caffeine 50-325-40 1 Tab Tablet PO 11/05/24 18:58 Q4HR PRN headache Al Hydrox/Mg Hydrox/Simethicone 30 ml 11/06/23 17:07 Mag Hydrox/Al Hydrox/Simeth 30 Ml Udc PO 11/05/24 17:06 Q4H PRN Indigestion Amlodipine Besylate 10 mg 11/07/23 09:00 11/12/23 09:34 Amlodipine 10 Mg Tablet PO 11/06/24 08:59 10 mg DAILY [place] Administration Ascorbic Acid 500 mg 11/07/23 09:00 11/12/23 09:34 Ascorbic Acid 500 Mg Tablet PO 11/06/24 08:59 500 mg DAILY [place] Administration Aspirin 325 mg 11/06/23 21:00 11/07/23 09:19 Aspirin 325 Mg Tablet PO 11/05/24 20:59 325 mg BID [place] Administration Azathioprine 100 mg 11/06/23 23:00 11/12/23 09:35 Azathioprine 50 Mg Tablet PO 11/05/24 22:59 100 mg BID [place] Administration Baclofen 10 mg 11/06/23 17:05 11/11/23 20:53 Baclofen 10 Mg Tablet PO 11/05/24 17:04 10 mg DAILY PRN Administration muscle spasm Bisacodyl 10 mg 11/06/23 17:07 Bisacodyl 10 Mg Supp.Rect AL 11/05/24 17:06 DAILY PRN Constipation Docusate Sodium 100 mg 11/06/23 21:00 11/12/23 09:34 Docusate 100 Mg Capsule PO 11/05/24 20:59 Not Given BID YAS[place]Y Docusate Sodium 100 mg 11/06/23 17:07 Docusate 100 Mg Capsule PO 11/05/24 17:06 BID PRN Constipation Docusate Sodium 283 mg 11/06/23 17:07 Docusate Enema 283 Mg/5 Ml Enema AL 11/05/24 17:06 DAILY PRN Constipation Duloxetine HCl 60 mg 11/06/23 22:30 11/11/23 20:52 Duloxetine 60 Mg Capsule.Dr PO 11/05/24 22:29 60 mg HS [place] Administration Enoxaparin Sodium 40 mg 11/07/23 21:00 11/12/23 09:36 Enoxaparin 40 Mg/0.4 Ml Syringe SUBCUT 11/06/24 20:59 40 mg BID [place] Administration Hydroxyzine Pamoate 50 mg 11/06/23 22:00 11/12/23 09:33 Hydroxyzine Pamoate 50 Mg Capsule PO 11/05/24 21:59 50 mg TID [place] Administration Lactulose 30 gm 11/06/23 17:07 11/10/23 06:24 Lactulose 20 Gm/30 Ml Udc PO 11/05/24 17:06 30 gm DAILY PRN Administration Constipation Losartan Potassium 25 mg 11/06/23 22:30 11/11/23 20:53 Losartan 25 Mg Tablet PO 11/05/24 22:29 25 mg HS [place]Y Administration Magnesium Oxide 400 mg 11/07/23 09:00 11/12/23 09:34 Magnesium Oxide 400 Mg Tablet PO 11/06/24 08:59 400 mg DAILY [place] Administration Metformin HCl 1,000 mg 11/09/23 17:00 11/12/23 09:35 Metformin 500 Mg Tablet PO 11/08/24 16:59 1,000 mg BID.WITH.MEALS [place]Y Administration Montelukast Sodium 10 mg 11/07/23 09:00 11/12/23 09:34 Montelukast 10 Mg Tablet PO 11/06/24 08:59 10 mg DAILY [place] Administration Multivitamins 1 tab 11/07/23 09:00 11/12/23 09:33 Multivitamin 1 Tab Tablet PO 11/06/24 08:59 1 tab DAILY [place] Administration Ondansetron HCl 4 mg 11/06/23 17:05 11/11/23 19:50 Ondansetron Odt 4 Mg Tab.Rapdis PO 11/05/24 17:04 4 mg Q8HR PRN Administration nausea and vomiting Oxycodone HCl 5 mg 11/07/23 00:16 Oxycodone Ir 5 Mg Tablet PO Q4HR PRN Pain Scale 4 - 6 Oxycodone HCl 10 mg 11/07/23 00:16 11/12/23 08:43 Oxycodone Ir 5 Mg Tablet PO 10 mg Q4HR PRN Administration Pain Scale 7 - 10 Pantoprazole Sodium 40 mg 11/07/23 09:00 11/12/23 09:33 Pantoprazole 40 Mg Tablet.Dr PO 11/06/24 08:59 40 mg DAILY [place] Administration Prednisone 20 mg 11/07/23 09:00 11/12/23 09:33 Prednisone 20 Mg Tablet PO 11/14/23 08:59 20 mg DAILY [place] Administration Sennosides 2 tab 11/07/23 12:00 11/09/23 21:05 Sennosides 8.6 Mg Tablet PO 11/06/24 11:59 2 tab DAILY@12 PRN Administration If no BM in 2 days Sodium Chloride 0 ml 11/06/23 17:07 Sodium Chloride 0.9 % 10 Ml Syringe IV-PUSH 11/05/24 17:06 PRN PRN Flush Topiramate 50 mg 11/06/23 22:30 11/11/23 20:52 Topiramate 50 Mg Tablet PO 11/05/24 22:29 50 mg HS [place] Administration Assessment/Plan Assessment/Plan (1) SLE (systemic lupus erythematosus related syndrome): (2) Morbid obesity with BMI of 50.0-59.9, adult: (3) Impaired mobility and activities of daily living: (4) Hypertension: (5) Prediabetes: Plan 48-year-old female with PMH of SLE, hypertension, morbid obesity, prediabetes who presents to acute inpatient rehabilitation unit with functional impairments secondary to an elective left total knee arthroplasty. -Obtain a UA today to rule out acute infection in the setting of urinary urgency and frequency. -The symptoms seem to be subsiding. No complaints of joint/muscle pain today. Continue to monitor. -She is approaching functional baseline in therapy. Likely home soon. Patient education Pressure ulcer prophylaxis; encourage mobilization, frequent postural changes, pressure-relief techniques DVT prophylaxis Encourage deep breathing exercise incentive spirometry. Monitor bladder. Toileting schedule. Continue current bladder management, with scans as needed and CIC if needed. Start bowel care program every day to obtain continence, prevent ileus. Maintain fall precautions Gait and balance retraining Functional training and self-care and home management, including activities of daily living and instrumental activities of daily living Provision of the necessary gait aids and functional adaptive equipment to enhance the patient's a functional muslim Ensure adequate nutrition and hydration Sleep Discharge planning. I spent 20 minutes for services, including [id number] encounter with the patient, discussion of the case, plan of care, and exam; and [id number] activities, such as reviewing pertinent homemaking rehabilitation consultant documentation, recent therapy notes, laboratory and radiology studies, and discussion of case with care team including physician, nursing, cyanide case hardener, and therapists. More than 50 % of time was spent on patient/family counseling or coordination of care. <Statement entered by Jonny Bentley MD - 11/13/23 09:19> This documentation has been reviewed and approved. I reviewed the history and the relevant portions of the chart, including current orders, allied health and homemaking rehabilitation consultant notes, labs/imaging and plan of care as above. Documented By: Mone Brennan APRN 11/12/23 1 139 Signed By: <Electronically signed by YULISA Brennan> 11/12/23 1145 <Electronically signed by Jonny Bentley MD> 11/13/23 0939 [facility] Work Phone: 1(689) 988-980008-31-2024 Progress note Author Jonny Bentley [facility] November 10, 2023 5:34pm Note Date/Time November 09, 2023 12 :40pm [facility] [address] [place] [address] Physiatry(Rehab) Progress Note Signed Patient: Navdeep Palma MR#: [id number] : 1975 Acct:[id number] Age/Sex: 48 / F Adm Date: 4 Loc: Room: 5J9669-5 Type: ADM IN Attending Dr: Jonny Bentley MD Copies to: ~ Date of Service: 11/09/2023 Subjective Subjective Narrative: Ms. Palma is a 48 year old female with multiple comorbidities including systemiclupus erythematosus, morbid obesity, HTN, HLD, prediabetes who presents to acuteinpatient rehabilitation unit with functional impairments in the setting of lefttotal knee arthroplasty. Patient reports severe osteoarthritis of the joint with [id number] resultingin significant discomfort and difficulty with mobility she failed multimodality conservative treatment. Presented to [facility] for an elective knee replacement on 10/30. Procedure was uncomplicated. She is to weight-bear as tolerated to the operative extremity. DVT prophylaxis with 325 mg of aspirin twice daily. She was evaluated by PT/OT and recommended acute rehab. On arrival patient is alert, pleasant, oriented. Reports 10/10 pain in the left knee with movement, less severe at rest. Patient reports that her pain had became worse after beingtransferred from the ambulance cot to the bed as her leg got accidentally twisted in a wrong direction . I will obtain an x-ray of the knee to ensure proper hardware alignment and no acute bony injury. I reviewed patient's medications with her at the bedside. She reports a historyof prediabetes managed with metformin, which however years to have been discontinued while at [facility]. Per the patient her most recent A1c level was 6.4. I will check her A1c tomorrow a.m.; start daily blood glucose checks, she is also on prednisone at this time. Will adjust the regimen based on lab results. INTERVAL HISTORY: Patient is resting in bed on assessment. She is alert, pleasant, oriented x 3. Pain is moderate today. She just returned from PT, feels she is doing fine. Was able to to ambulate about 150 feet with a wheeled walker and SBA. Ascending/descending some stairs with CGA/SBA. Knee still pretty swollen. She is asking if she could get an ice pack or a CryoCuff to help with swelling and discomfort. Will inquire with the nursing staff. She also thinks her SLE is getting exacerbated. She has been having some generalized muscle and joint achiness. She is already on prednisone x 7 days s/p knee replacement. I will continue that and add a one-time dose of prednisone 20 mg. Monitor patient's symptoms. May need to contact patient's mat gauger for recommendations if her symptoms worsen. A1c and fasting glucose levels reviewed. I will reinitiate patient on [id number] mg twice daily. She is aware and agreeable. Review of Systems Review of Systems All other systems reviewed & are negative unless noted below or in HPI Exam Physical Exam Vital Signs: Temp Pulse Resp BP Pulse Ox O2 Del Method O2 Flow Rate 98.3 F 80 18 133/74 98 Room Air 2 11/09/23 05:00 11/09/23 05:00 11/09/23 05:00 11/09/23 05:00 11/09/23 05:00 11/09/23 07:30 11/08/23 20:26 Narrative: General: Awake, alert, oriented x3 HENT: Normal to inspection, normocephalic, atraumatic Eyes: PERRL, normal conjunctiva and sclera Neck: Normal ROM, normal visual inspection. Trachea midline. Cardio: Regular heart rate and rhythm Respiratory: Clear to auscultation bilaterally. Normal respiratory effort. No respiratory distress. GI: Abdomen obese, soft, nontender, nondistended, active bowel sounds x4 quadrants Neuro: CN II-XII intact. Strength 4+ /5 left lower extremity, otherwise unremarkable Extremities: Lymphedema bilateral lower extremities Psych: Mood and affect appropriate. Normal speech. Objective Labs 11/07/23 05:42 11/07/23 05:42 Labs: Laboratory Results - last 24 hr 11/09/23 06:08 POC Glucose 134 Additional Results Results Comments: I reviewed clinical lab tests, radiology reports and obtained and summated medical records and have ordered follow up lab tests and imaging studies as needed for rehabilitation care. Medications and Allergies Allergies and Active Meds: Allergies acetaminophen [[place]] Allergy (Unknown, Verified 10/31/22 10:45) Itchy cyclobenzaprine [Flexeril] Allergy (Unknown, Verified 10/31/22 10:45) Itchy hydrocodone [[place]] Allergy (Unknown, Verified 10/31/22 10:45) Itchy hydrochlorothiazide Adverse Reaction (Verified 07/04/19 10:35) Dizziness Active Medications Generic Name Dose Route Start Last Admin Trade Name Freq PRN Reason Stop Dose Admin Acetaminophen 1,000 mg 11/07/23 14:00 11/09/23 09:06 Acetaminophen 500 Mg Tablet PO 11/06/24 13:59 1,000 mg TID [place] Administration Acetaminophen/Butalbital/Caffeine 1 tab 11/06/23 18:59 Butalb/Acetamin/Caffeine 50-325-40 1 Tab Tablet PO 11/05/24 18:58 Q4HR PRN headache Al Hydrox/Mg Hydrox/Simethicone 30 ml 11/06/23 17:07 Mag Hydrox/Al Hydrox/Simeth 30 Ml Udc PO 11/05/24 17:06 Q4H PRN Indigestion Amlodipine Besylate 10 mg 11/07/23 09:00 11/09/23 09:07 Amlodipine 10 Mg Tablet PO 11/06/24 08:59 10 mg DAILY [place]Y Administration Ascorbic Acid 500 mg 11/07/23 09:00 11/09/23 09:07 Ascorbic Acid 500 Mg Tablet PO 11/06/24 08:59 500 mg DAILY [place] Administration Aspirin 325 mg 11/06/23 21:00 11/07/23 09:19 Aspirin 325 Mg Tablet PO 11/05/24 20:59 325 mg BID [place] Administration Azathioprine 100 mg 11/06/23 23:00 11/09/23 09:07 Azathioprine 50 Mg Tablet PO 11/05/24 22:59 100 mg BID YAMSANY Administration Baclofen 10 mg 11/06/23 17:05 11/08/23 20:37 Baclofen 10 Mg Tablet PO 11/05/24 17:04 10 mg DAILY PRN Administration muscle spasm Bisacodyl 10 mg 11/06/23 17:07 Bisacodyl 10 Mg Supp.Rect AL 11/05/24 17:06 DAILY PRN Constipation Docusate Sodium 100 mg 11/06/23 21:00 11/09/23 09:07 Docusate 100 Mg Capsule PO 11/05/24 20:59 100 mg BID YAS[place]Y Administration Docusate Sodium 100 mg 11/06/23 17:07 Docusate 100 Mg Capsule PO 11/05/24 17:06 BID PRN Constipation Docusate Sodium 283 mg 11/06/23 17:07 Docusate Enema 283 Mg/5 Ml Enema AL 11/05/24 17:06 DAILY PRN Constipation Duloxetine HCl 60 mg 11/06/23 22:30 11/08/23 20:37 Duloxetine 60 Mg Capsule.Dr PO 11/05/24 22:29 60 mg HS YAS[place]Y Administration Enoxaparin Sodium 40 mg 11/07/23 21:00 11/09/23 10:13 Enoxaparin 40 Mg/0.4 Ml Syringe SUBCUT 11/06/24 20:59 40 mg BID [place] Administration Hydroxyzine Pamoate 50 mg 11/06/23 22:00 11/09/23 09:07 Hydroxyzine Pamoate 50 Mg Capsule PO 11/05/24 21:59 50 mg TID YAS[place]Y Administration Lactulose 30 gm 11/06/23 17:07 Lactulose 20 Gm/30 Ml Udc PO 11/05/24 17:06 DAILY PRN Constipation Losartan Potassium 25 mg 11/06/23 22:30 11/08/23 20:37 Losartan 25 Mg Tablet PO 11/05/24 22:29 25 mg HS YAS[place]Y Administration Magnesium Oxide 400 mg 11/07/23 09:00 11/09/23 09:07 Magnesium Oxide 400 Mg Tablet PO 11/06/24 08:59 400 mg DAILY YAS[place]Y Administration Metformin HCl 1,000 mg 11/09/23 17:00 Metformin 500 Mg Tablet PO 11/08/24 16:59 BID.WITH.MEALS YASMANY Montelukast Sodium 10 mg 11/07/23 09:00 11/09/23 09:07 Montelukast 10 Mg Tablet PO 11/06/24 08:59 10 mg DAILY YAS[place]Y Administration Multivitamins 1 tab 11/07/23 09:00 11/09/23 09:07 Multivitamin 1 Tab Tablet PO 11/06/24 08:59 1 tab DAILY YAS[place]Y Administration Ondansetron HCl 4 mg 11/06/23 17:05 Ondansetron Odt 4 Mg Tab.Rapdis PO 11/05/24 17:04 Q8HR PRN nausea and vomiting Oxycodone HCl 5 mg 11/07/23 00:16 Oxycodone Ir 5 Mg Tablet PO Q4HR PRN Pain Scale 4 - 6 Oxycodone HCl 10 mg 11/07/23 00:16 11/09/23 09:07 Oxycodone Ir 5 Mg Tablet PO 10 mg Q4HR PRN Administration Pain Scale 7 - 10 Pantoprazole Sodium 40 mg 11/07/23 09:00 11/09/23 09:07 Pantoprazole 40 Mg Tablet. PO 11/06/24 08:59 40 mg DAILY [place] Administration Prednisone 20 mg 11/07/23 09:00 11/09/23 09:06 Prednisone 20 Mg Tablet PO 11/14/23 08:59 20 mg DAILY [place] Administration Sennosides 2 tab 11/07/23 12:00 11/08/23 20:38 Sennosides 8.6 Mg Tablet PO 11/06/24 11:59 2 tab DAILY@12 PRN Administration If no BM in 2 days Sodium Chloride 0 ml 11/06/23 17:07 Sodium Chloride 0.9 % 10 Ml Syringe IV-PUSH 11/05/24 17:06 PRN PRN Flush Topiramate 50 mg 11/06/23 22:30 11/08/23 20:38 Topiramate 50 Mg Tablet PO 11/05/24 22:29 50 mg HS [place] Administration Assessment/Plan Assessment/Plan (1) SLE (systemic lupus erythematosus related syndrome): (2) Morbid obesity with BMI of 50.0-59.9, adult: (3) Impaired mobility and activities of daily living: (4) Hypertension: (5) Prediabetes: Plan 48-year-old female with PMH of SLE, hypertension, morbid obesity, prediabetes who presents to acute inpatient rehabilitation unit with functional impairments secondary to an elective left total knee arthroplasty. -Start metformin 1000 mg twice daily for elevated blood glucose levels and A1c of 6.3. Continue daily blood glucose checks. -Okay for ice pack to the operative knee as needed. -Prednisone 20 mg x 1 in addition to a.m. dose for SLE exacerbation. Monitor symptoms. Patient education Pressure ulcer prophylaxis; encourage mobilization, frequent postural changes, pressure-relief techniques DVT prophylaxis Encourage deep breathing exercise incentive spirometry. Monitor bladder. Toileting schedule. Continue current bladder management, with scans as needed and CIC if needed. Start bowel care program every day to obtain continence, prevent ileus. Maintain fall precautions Gait and balance retraining Functional training and self-care and home management, including activities of daily living and instrumental activities of daily living Provision of the necessary gait aids and functional adaptive equipment to enhance the patient's a functional muslim Ensure adequate nutrition and hydration Sleep Discharge planning. I spent 23 minutes for services, including [id number] encounter with the patient, discussion of the case, plan of care, and exam; and [id number] activities, such as reviewing pertinent homemaking rehabilitation consultant documentation, recent therapy notes, laboratory and radiology studies, and discussion of case with care team including physician, nursing, cyanide case hardener, and therapists. More than 50 % of time was spent on patient/family counseling or coordination of care. <Statement entered by Jonny Bentley MD - 11/10/23 17:34> This documentation has been reviewed and approved. I reviewed the history and the relevant portions of the chart, including current orders, allied health and homemaking rehabilitation consultant notes, labs/imaging and plan of care as above. Documented By: Mone Brennan APRN 11/09/23 1 231 Signed By: <Electronically signed by YULISA Brennan> 11/09/23 1240 <Electronically signed by Jonny Bentley MD> 11/10/23 [address] [facility] Work Phone: [phone]) 865-798208-29-2024 Progress note Author Jonny Bentley [facility] November 08, 2023 12:10pm Note Date/Time November 08, 2023 12 :08pm [facility] [address] [place] [address] Physiatry(Rehab) Progress Note Signed Patient: Navdeep Palma MR#: [id number] : 1975 Acct:[id number] Age/Sex: 48 / F Adm Date: 4 Loc: 5T Room: 9R4159-7 Type: ADM IN Attending Dr: Jonny Bentley MD Copies to: ~ Date of Service: 11/08/2023 Subjective Subjective Narrative: Ms. Palma is a 48 year old female with multiple comorbidities including systemiclupus erythematosus, morbid obesity, HTN, HLD, prediabetes who presents to acuteinpatient rehabilitation unit with functional impairments in the setting of lefttotal knee arthroplasty. Patient reports severe osteoarthritis of the joint with [id number] resultingin significant discomfort and difficulty with mobility she failed multimodality conservative treatment. Presented to [facility] for an elective knee replacement on 10/30. Procedure was uncomplicated. She is to weight-bear as tolerated to the operative extremity. DVT prophylaxis with 325 mg of aspirin twice daily. She was evaluated by PT/OT and recommended acute rehab. On arrival patient is alert, pleasant, oriented. Reports 10/10 pain in the left knee with movement, less severe at rest. Patient reports that her pain had became worse after beingtransferred from the ambulance cot to the bed as her leg got accidentally twisted in a wrong direction . I will obtain an x-ray of the knee to ensure proper hardware alignment and no acute bony injury. I reviewed patient's medications with her at the bedside. She reports a historyof prediabetes managed with metformin, which however years to have been discontinued while at [facility]. Per the patient her most recent A1c level was 6.4. I will check her A1c tomorrow a.m.; start daily blood glucose checks, she is also on prednisone at this time. Will adjust the regimen based on lab results. INTERVAL HISTORY: PAtient seen today at bedside. Sitting in wheelchair. In no distress. Reports that she feels better today. Not as much knee pain. Discussed XRresults with patient. She denies any chest pain, SOB, fever, chills. Review of Systems Review of Systems All other systems reviewed & are negative unless noted below or in HPI Exam Physical Exam Vital Signs: Temp Pulse Resp BP Pulse Ox O2 Del Method O2 Flow Rate 97.8 F 82 20 133/81 97 Room Air 2 11/08/23 05:00 11/08/23 05:00 11/08/23 05:00 11/08/23 05:00 11/08/23 05:00 11/08/23 07:30 11/07/23 21:25 Narrative: General: Awake, alert, oriented x3. obese HENT: Normal to inspection, normocephalic, atraumatic Eyes: PERRL, normal conjunctiva and sclera Neck: Normal ROM, normal visual inspection. Trachea midline. Cardio: Regular heart rate and rhythm Respiratory: Clear to auscultation bilaterally. Normal respiratory effort. No respiratory distress. GI: Abdomen obese, soft, nontender, nondistended, active bowel sounds x4 quadrants Neuro: CN II-XII intact. Strength 4+ /5 left lower extremity, otherwise unremarkable Extremities: Lymphedema bilateral lower extremities Psych: Mood and affect appropriate. Normal speech. Objective Labs 11/07/23 05:42 11/07/23 05:42 Labs: Laboratory Results - last 24 hr 11/07/23 11/08/23 11/08/23 05:42 05:21 05:53 POC Glucose 132 POC Glucose Comment Glu2: cleaned meter Estimat Average Glucose 134 Hemoglobin A1c 6.3 H Prealbumin 11.3 L Medications and Allergies Allergies and Active Meds: Allergies acetaminophen [Choctaw] Allergy (Unknown, Verified 10/31/22 10:45) Itchy cyclobenzaprine [Flexeril] Allergy (Unknown, Verified 10/31/22 10:45) Itchy hydrocodone [[place]ct[place]] Allergy (Unknown, Verified 10/31/22 10:45) Itchy hydrochlorothiazide Adverse Reaction (Verified 07/04/19 10:35) Dizziness Active Medications Generic Name Dose Route Start Last Admin Trade Name Fabq PRN Reason Stop Dose Admin Acetaminophen 1,000 mg 11/07/23 14:00 11/08/23 07:57 Acetaminophen 500 Mg Tablet PO 11/06/24 13:59 1,000 mg TID [place]Y Administration Acetaminophen/Butalbital/Caffeine 1 tab 11/06/23 18:59 Butalb/Acetamin/Caffeine 50-325-40 1 Tab Tablet PO 11/05/24 18:58 Q4HR PRN headache Al Hydrox/Mg Hydrox/Simethicone 30 ml 11/06/23 17:07 Mag Hydrox/Al Hydrox/Simeth 30 Ml Udc PO 11/05/24 17:06 Q4H PRN Indigestion Amlodipine Besylate 10 mg 11/07/23 09:00 11/08/23 07:56 Amlodipine 10 Mg Tablet PO 11/06/24 08:59 10 mg DAILY [place] Administration Ascorbic Acid 500 mg 11/07/23 09:00 11/08/23 07:56 Ascorbic Acid 500 Mg Tablet PO 11/06/24 08:59 500 mg DAILY [place] Administration Aspirin 325 mg 11/06/23 21:00 11/07/23 09:19 Aspirin 325 Mg Tablet PO 11/05/24 20:59 325 mg BID [place] Administration Azathioprine 100 mg 11/06/23 23:00 11/08/23 07:57 Azathioprine 50 Mg Tablet PO 11/05/24 22:59 100 mg BID [place] Administration Baclofen 10 mg 11/06/23 17:05 11/07/23 22:28 Baclofen 10 Mg Tablet PO 11/05/24 17:04 10 mg DAILY PRN Administration muscle spasm Bisacodyl 10 mg 11/06/23 17:07 Bisacodyl 10 Mg Supp.Rect AL 11/05/24 17:06 DAILY PRN Constipation Docusate Sodium 100 mg 11/06/23 21:00 11/08/23 07:56 Docusate 100 Mg Capsule PO 11/05/24 20:59 100 mg BID [place] Administration Docusate Sodium 100 mg 11/06/23 17:07 Docusate 100 Mg Capsule PO 11/05/24 17:06 BID PRN Constipation Docusate Sodium 283 mg 11/06/23 17:07 Docusate Enema 283 Mg/5 Ml Enema AL 11/05/24 17:06 DAILY PRN Constipation Duloxetine HCl 60 mg 11/06/23 22:30 11/07/23 21:44 Duloxetine 60 Mg Capsule.Dr PO 11/05/24 22:29 60 mg HS [place] Administration Enoxaparin Sodium 40 mg 11/07/23 21:00 11/08/23 08:00 Enoxaparin 40 Mg/0.4 Ml Syringe SUBCUT 11/06/24 20:59 40 mg BID [place] Administration Hydroxyzine Pamoate 50 mg 11/06/23 22:00 11/08/23 07:56 Hydroxyzine Pamoate 50 Mg Capsule PO 11/05/24 21:59 50 mg TID [place] Administration Lactulose 30 gm 11/06/23 17:07 Lactulose 20 Gm/30 Ml Udc PO 11/05/24 17:06 DAILY PRN Constipation Losartan Potassium 25 mg 11/06/23 22:30 11/07/23 21:44 Losartan 25 Mg Tablet PO 11/05/24 22:29 25 mg HS [place] Administration Magnesium Oxide 400 mg 11/07/23 09:00 11/08/23 07:56 Magnesium Oxide 400 Mg Tablet PO 11/06/24 08:59 400 mg DAILY [place] Administration Montelukast Sodium 10 mg 11/07/23 09:00 11/08/23 07:56 Montelukast 10 Mg Tablet PO 11/06/24 08:59 10 mg DAILY [place] Administration Multivitamins 1 tab 11/07/23 09:00 11/08/23 07:56 Multivitamin 1 Tab Tablet PO 11/06/24 08:59 1 tab DAILY [place] Administration Ondansetron HCl 4 mg 11/06/23 17:05 Ondansetron Odt 4 Mg Tab.Rapdis PO 11/05/24 17:04 Q8HR PRN nausea and vomiting Oxycodone HCl 5 mg 11/07/23 00:16 Oxycodone Ir 5 Mg Tablet PO Q4HR PRN Pain Scale 4 - 6 Oxycodone HCl 10 mg 11/07/23 00:16 11/08/23 09:58 Oxycodone Ir 5 Mg Tablet PO 10 mg Q4HR PRN Administration Pain Scale 7 - 10 Pantoprazole Sodium 40 mg 11/07/23 09:00 11/08/23 07:56 Pantoprazole 40 Mg Tablet.Dr PO 11/06/24 08:59 40 mg DAILY [place] Administration Prednisone 20 mg 11/07/23 09:00 11/08/23 07:56 Prednisone 20 Mg Tablet PO 11/14/23 08:59 20 mg DAILY [place] Administration Sennosides 2 tab 11/07/23 12:00 Sennosides 8.6 Mg Tablet PO 11/06/24 11:59 DAILY@12 PRN If no BM in 2 days Sodium Chloride 0 ml 11/06/23 17:07 Sodium Chloride 0.9 % 10 Ml Syringe IV-PUSH 11/05/24 17:06 PRN PRN Flush Topiramate 50 mg 11/06/23 22:30 11/07/23 21:44 Topiramate 50 Mg Tablet PO 11/05/24 22:29 50 mg HS [place] Administration Assessment/Plan Assessment/Plan (1) SLE (systemic lupus erythematosus related syndrome): (2) Morbid obesity with BMI of 50.0-59.9, adult: (3) Impaired mobility and activities of daily living: (4) Hypertension: (5) Prediabetes: Plan 48-year-old female with PMH of SLE, hypertension, morbid obesity, prediabetes who presents to acute inpatient rehabilitation unit with functional impairments secondary to an elective left total knee arthroplasty. -Knee XR appears stable. No acute process. Pain improved -Continue prednisone for 1 week -Start daily fingerstick blood glucose checks. A1c 6.3 -Continue current pain regimen Patient education Pressure ulcer prophylaxis; encourage mobilization, frequent postural changes, pressure-relief techniques DVT prophylaxis Encourage deep breathing exercise incentive spirometry. Monitor bladder. Toileting schedule. Continue current bladder management, with scans as needed and CIC if needed. Start bowel care program every day to obtain continence, prevent ileus. Maintain fall precautions Gait and balance retraining Functional training and self-care and home management, including activities of daily living and instrumental activities of daily living Provision of the necessary gait aids and functional adaptive equipment to enhance the patient's a functional muslim Ensure adequate nutrition and hydration Sleep Discharge planning. Patient was personally seen by me, Dr. Bentley, on the day of encounter, reviewed the history and the relevant portions of the chart, including current orders, allied health and homemaking rehabilitation consultant notes, labs/imaging and performed humphries elements of exam and I formulated the plan of care and facilitated the medical decision making. I completed a substantive portion of this encounter, the medical decision making portion of this note in its entirety, including Allied health note review, nursing note review, homemaking rehabilitation consultant note review, discussion with nursing and case management, and more than 50% of my time was spent on counseling and coordination of care, time spent 25 minutes Documented By: Jonny Bentley MD [id number] Signed By: <Electronically signed by Jonny Bentley MD> 11/08/23 1210 [facility] Work Phone: [phone]) 708-819808-28-2024 History and physical note Author Jonyn Bentley [facility] November 07, 2023 2:37pm Note Date/Time November 07, 2023 11 :54am [facility] [address] [place] [address] Physiatry (Rehab) H&P Signed Patient: Navdeep Palma MR#: [id number] : 1975 Acct:[id number] Age/Sex: 48 / F Adm Date: 4 Loc: 5T Room: [address] [place] [address] Type: ADM IN Attending Dr: Jonny Bentley MD Copies to: MD Mone Esqueda APRN Laura Anglim, APRN, [employer]ALL [employer] CARPET INST[employer]ER~ Date of Service: 11/07/2023 HPI The patient was seen and examined on: 11/07/23 History of Present Illness: Ms. Palma is a 48 year old female with multiple comorbidities including systemiclupus erythematosus, morbid obesity, HTN, HLD, prediabetes who presents to acuteinpatient rehabilitation unit with functional impairments in the setting of lefttotal knee arthroplasty. Patient reports severe osteoarthritis of the joint with [id number] resultingin significant discomfort and difficulty with mobility she failed multimodality conservative treatment. Presented to [facility] for an elective knee replacement on 10/30. Procedure was uncomplicated. She is to weight-bear as tolerated to the operative extremity. DVT prophylaxis with 325 mg of aspirin twice daily. She was evaluated by PT/OT and recommended acute rehab. On arrival patient is alert, pleasant, oriented. Reports 10/10 pain in the left knee with movement, less severe at rest. Patient reports that her pain had became worse after beingtransferred from the ambulance cot to the bed as her leg got accidentally twisted in a wrong direction . I will obtain an x-ray of the knee to ensure proper hardware alignment and no acute bony injury. I reviewed patient's medications with her at the bedside. She reports a historyof prediabetes managed with metformin, which however years to have been discontinued while at [facility]. Per the patient her most recent A1c level was 6.4. I will check her A1c tomorrow a.m.; start daily blood glucose checks, she is also on prednisone at this time. Will adjust the regimen based on lab results. [facility] Medical History (Updated 11/07/23 @ 12:34 by Mone Brennan APRN) Sleep apnea Granulomatosis Arthritis Fibromyalgia Lupus Hypertension Neuropathy Problem List clean-up per request of Phys. EHR Cmte Scoliosis Problem List clean-up per request of Phys. EHR [facility] Asthma Problem List clean-up per request of Phys. EHR [facility] Migraines Problem List clean-up per request of Phys. EHR [facility] SLE (systemic lupus erythematosus) Problem List clean-up per request of Phys. EHR [facility] Surgical History (Updated 02/21/23 @ 14:[facility] History of lymph node biopsy Left [id number] Problem List clean-up per request of Phys. EHR [facility] History of bariatric surgery Gastric sleeve 2016 Problem List clean-up per request of Phys. EHR [facility] History of tubal ligation Tubes removed Problem List clean-up per request of Phys. EHR [facility] S/P ALEKSANDAR (total abdominal hysterectomy) Problem List clean-up per request of Phys. EHR [facility] Family History (Updated 02/28/19 @ 16:46 by Gregro Huang RN) Brother Pulmonary disease Brother Neurological abnormality Mother Pancreatic cancer Lung cancer Mother Cancer Legacy FamHx Problem: Diagnosed with Cancer Social History Smoking Status: Never smoker Substance Use Type: None Meds Medications and Allergies Allergies acetaminophen [Choctaw] Allergy (Unknown, Verified 10/31/22 10:45) Itchy cyclobenzaprine [Flexeril] Allergy (Unknown, Verified 10/31/22 10:45) Itchy hydrocodone [[place]] Allergy (Unknown, Verified 10/31/22 10:45) Itchy hydrochlorothiazide Adverse Reaction (Verified 07/04/19 10:35) Dizziness Home and Active Meds: Home Medications amlodipine 10 mg tablet 10 mg PO DAILY 11/06/23 [History Confirmed 11/06/23] ascorbic acid (vitamin C) 500 mg capsule 500 mg PO DAILY 11/06/23 [History Confirmed 11/06/23] aspirin 325 mg tablet 325 mg PO BID 11/06/23 [History Confirmed 11/06/23] azathioprine 100 mg tablet 100 mg PO BID 11/06/23 [History Confirmed 11/06/23] baclofen 10 mg tablet 10 mg PO DAILY PRN muscle spasm 11/06/23 [History Confirmed 11/06/23] [id number] 50 mg-300 mg-40 mg capsule (Fioricet) 1 cap POQ4HR PRN headache 11/06/23 [History Confirmed 11/06/23] conjugated estrogens 0.9 mg tablet (Premarin) 0.9 mg PO DAILY 11/06/23 [History Confirmed 11/06/23] docusate sodium 100 mg capsule (Colace) 100 mg PO BID 11/06/23 [History Confirmed 11/06/23] duloxetine 60 mg capsule,delayed release 60 mg PO DAILY 11/06/23 [History Confirmed 11/06/23] hydroxyzine HCl 50 mg tablet 50 mg PO TID 11/06/23 [History Confirmed 11/06/23] losartan 25 mg tablet 25 mg PO DAILY 11/06/23 [History Confirmed 11/06/23] magnesium oxide 400 mg PO DAILY 11/06/23 [History Confirmed 11/06/23] montelukast 10 mg tablet 10 mg PO DAILY 11/06/23 [History Confirmed 11/06/23] multivitamin 1 tab PO DAILY 11/06/23 [History Confirmed 11/06/23] omeprazole 20 mg capsule,delayed release 20 mg PO DAILY 11/06/23 [History Confirmed 11/06/23] ondansetron 4 mg disintegrating tablet 4 mg PO Q8HR PRN nausea and vomiting 11/06/23 [History Confirmed 11/06/23] oxycodone-acetaminophen 5 mg-325 mg tablet 1 tab PO Q6HR PRN pain 7-10 11/06/23 [History Confirmed 11/06/23] prednisone 20 mg tablet 20 mg PO DAILY 11/06/23 [History Confirmed 11/06/23] topiramate 50 mg tablet 50 mg PO BID 11/06/23 [History Confirmed 11/06/23] Active Medications Acetaminophen (Acetaminophen 500 Mg Tablet) 500 mg PO Q4H PRN PRN Reason: Pain Stop: 11/05/24 17:06 Last Admin: 11/06/23 22:05 Dose: 500 mg Acetaminophen/Butalbital/Caffeine (Butalb/Acetamin/Caffeine 50-325-40 1 Tab Tablet) 1 tab PO Q4HR PRN PRN Reason: headache Stop: 11/05/24 18:58 Al Hydrox/Mg Hydrox/Simethicone (Mag Hydrox/Al Hydrox/Simeth 30 Ml Udc) 30 ml PO Q4H PRN PRN Reason: Indigestion Stop: 11/05/24 17:06 Amlodipine Besylate (Amlodipine 10 Mg Tablet) 10 mg PO DAILY [place] Stop: 11/06/24 08:59 Last Admin: 11/07/23 09:19 Dose: 10 mg Ascorbic Acid (Ascorbic Acid 500 Mg Tablet) 500 mg PO DAILY [facility] Stop: 11/06/24 08:59 Last Admin: 11/07/23 09:19 Dose: 500 mg Aspirin (Aspirin 325 Mg Tablet) 325 mg PO BID [facility] Stop: 11/05/24 20:59 Last Admin: 11/07/23 09:19 Dose: 325 mg Azathioprine (Azathioprine 50 Mg Tablet) 100 mg PO BID [facility] Stop: 11/05/24 22:59 Last Admin: 11/07/23 10:18 Dose: 100 mg Baclofen (Baclofen 10 Mg Tablet) 10 mg PO DAILY PRN PRN Reason: muscle spasm Stop: 11/05/24 17:04 Last Admin: 11/06/23 22:06 Dose: 10 mg Bisacodyl (Bisacodyl 10 Mg Supp.Rect) 10 mg AL DAILY PRN PRN Reason: Constipation Stop: 11/05/24 17:06 Docusate Sodium (Docusate 100 Mg Capsule) 100 mg PO BID [facility] Stop: 11/05/24 20:59 Last Admin: 11/07/23 09:19 Dose: 100 mg Docusate Sodium (Docusate 100 Mg Capsule) 100 mg PO BID PRN PRN Reason: Constipation Stop: 11/05/24 17:06 Docusate Sodium (Docusate Enema 283 Mg/5 Ml Enema) 283 mg AL DAILY PRN PRN Reason: Constipation Stop: 11/05/24 17:06 Duloxetine HCl (Duloxetine 60 Mg Capsule.Dr) 60 mg PO [facility] Stop: 11/05/24 22:29 Last Admin: 11/06/23 23:17 Dose: 60 mg Hydroxyzine Pamoate (Hydroxyzine Pamoate 50 Mg Capsule) 50 mg PO TID [facility] Stop: 11/05/24 21:59 Last Admin: 11/07/23 09:19 Dose: 50 mg Lactulose (Lactulose 20 Gm/30 Ml Udc) 30 gm PO DAILY PRN PRN Reason: Constipation Stop: 11/05/24 17:06 Losartan Potassium (Losartan 25 Mg Tablet) 25 mg PO [facility] Stop: 11/05/24 22:29 Last Admin: 11/06/23 23:17 Dose: 25 mg Magnesium Oxide (Magnesium Oxide 400 Mg Tablet) 400 mg PO DAILY [facility] Stop: 11/06/24 08:59 Last Admin: 11/07/23 09:19 Dose: 400 mg Montelukast Sodium (Montelukast 10 Mg Tablet) 10 mg PO DAILY [facility] Stop: 11/06/24 08:59 Last Admin: 11/07/23 09:19 Dose: 10 mg Multivitamins (Multivitamin 1 Tab Tablet) 1 tab PO DAILY [place] Stop: 11/06/24 08:59 Last Admin: 11/07/23 09:19 Dose: 1 tab Ondansetron HCl (Ondansetron Odt 4 Mg Tab.Rapdis) 4 mg PO Q8HR PRN PRN Reason: nausea and vomiting Stop: 11/05/24 17:04 Oxycodone HCl (Oxycodone Ir 5 Mg Tablet) 5 mg PO Q4HR PRN PRN Reason: Pain Scale 4 - 6 Oxycodone HCl (Oxycodone Ir 5 Mg Tablet) 10 mg PO Q4HR PRN PRN Reason: Pain Scale 7 - 10 Last Admin: 11/07/23 09:18 Dose: 10 mg Pantoprazole Sodium (Pantoprazole 40 Mg Tablet.Dr) 40 mg PO DAILY [facility] Stop: 11/06/24 08:59 Last Admin: 11/07/23 09:19 Dose: 40 mg Prednisone (Prednisone 20 Mg Tablet) 20 mg PO DAILY [facility] Stop: 11/06/24 08:59 Last Admin: 11/07/23 09:19 Dose: 20 mg Sennosides (Sennosides 8.6 Mg Tablet) 2 tab PO DAILY@12 PRN PRN Reason: If no BM in 2 days Stop: 11/06/24 11:59 Sodium Chloride (Sodium Chloride 0.9 % 10 Ml Syringe) 0 ml IV-PUSH PRN PRN PRN Reason: Flush Stop: 11/05/24 17:06 Topiramate (Topiramate 50 Mg Tablet) 50 mg PO HS [facility] Stop: 11/05/24 22:29 Last Admin: 11/06/23 23:18 Dose: 50 mg Exam Physical Exam Vital Signs: Temp Pulse Resp BP Pulse Ox O2 Del Method 98.4 F 75 17 128/71 94 L Room Air 11/07/23 05:00 11/07/23 05:00 11/07/23 05:00 11/07/23 05:00 11/07/23 05:00 11/07/23 07:30 Narrative: General: Awake, alert, oriented x3 HENT: Normal to inspection, normocephalic, atraumatic Eyes: PERRL, normal conjunctiva and sclera Neck: Normal ROM, normal visual inspection. Trachea midline. Cardio: Regular heart rate and rhythm Respiratory: Clear to auscultation bilaterally. Normal respiratory effort. No respiratory distress. GI: Abdomen obese, soft, nontender, nondistended, active bowel sounds x4 quadrants Neuro: CN II-XII intact. Strength 4+ /5 left lower extremity, otherwise unremarkable Extremities: Lymphedema bilateral lower extremities Psych: Mood and affect appropriate. Normal speech. Results - Phys. Rehab Labs Labs: Laboratory Results - last 24 hr 11/07/23 11/07/23 05:42 11:43 Corrected WBC 5.0 Uncorrected WBC Count 5.0 RBC 3.30 L Hgb 10.1 L Hct 30.1 L MCV 91.3 MCH 30.7 MCHC 33.7 RDW 14.4 Plt Count 375 MPV 6.5 Neut % (Auto) 55.8 Lymph % (Auto) 30.0 Keith % (Auto) 12.2 Eos % (Auto) 1.5 Baso % (Auto) 0.5 Nucleat RBC Rel Count 0.3 Neut # (Auto) 2.8 Lymph # (Auto) 1.5 Keith # (Auto) 0.6 Eos # (Auto) 0.1 Baso # (Auto) 0.0 PHA Creatinine Clear 177.69 Sodium 140 Potassium 3.5 Chloride 107 Carbon Dioxide 27.0 Anion Gap 9.5 BUN 6 L Creatinine 0.60 Est GFR (CKD-EPI) > 60.0 Glucose 105 H POC Glucose 172 Calcium 8.4 L Total Bilirubin 0.5 AST 19 ALT 13 Alkaline Phosphatase 108 H Total Protein 6.3 L Albumin 3.1 L Globulin 3.2 Albumin/Globulin Ratio 1.0 Additional Results Results Comment: I reviewed clinical lab tests, radiology reports and obtained and summated medical records and have ordered follow up lab tests and imaging studies as needed for rehabilitation care. Functional Status Prior Level of Function Narrative: Patient was previously independent pain Individualized Plan of Care Individualized Plan of Care Plan of Care: Individualized Overall Plan of Care: Admit Date/Time: 8/27/24 Expected LOS: 14 Days Expected Discharge Destination: Home Rehabilitation C: 8.61-L knee osteoarthritis s/p TKA Primary Diagnosis: as above Patient?s/Family?s anticipated outcomes/personal goals: To have patient become more independent and to return home. Medical/ Functional Prognosis: Good Anticipated Functional Outcomes/Goals and Interventions: -Therapy Functional Outcome/Goal: Mobility/Locomotion: Patient likely to be independent with ambulation with assistive device. Anticipated interventions: Physician management, PT, OT, Dietitian, Rehab Nursing - Therapy Functional Outcome/Goal: Self Care: Patient likely to be functionally independent for activities of daily living using assistive / adaptive equipment as needed. Anticipated interventions: Physician management, PT, OT, Dietitian, Rehab Nursing - Therapy Functional Outcome/Goal: Bladder/Bowel Management: Patient likely to be independent with bladder care and independent with bowel care. Anticipated interventions: Physician management, PT, OT, Dietitian, Rehab Nursing -Therapy Functional Outcome/Goal: Communication/Cognition: Patient will be able to communicate fully and be safe cognitively. Anticipated interventions: Physician management, PT, OT, Dietitian, Rehab Nursing -Therapy Functional Outcome/Goal: Patient will be independent for bed mobility and transfers Anticipated interventions: Physician management, PT, OT, Dietitian, Rehab Nursing -Therapy Functional Outcome/Goal: Patient will improve endurance to be able to tolerate all daily self care activities and avocational activities. Anticipated interventions: Physician management, PT, OT, Nutrition, Rehab Nursing -Therapy Functional Outcome/Goal: Patient will understand and assimilate / integrate education regarding management of their medical conditions to maintainhealth and wellbeing. Anticipated interventions: Physician management, PT, OT, Dietitian, Rehab Nursing Required Therapy PT: 1.5 hour per day at least 5 days per week with additional therapy on as needed basis. Comments: PT to improve pt's strength, endurance, bed mobility, transfers (sit-stand), standing balance, gait quality on level surfaces and stairs, coordination and functional ADL skills. Will also work to improve pt's safety awareness during transfers and ambulation. OT: 1.5 hour per day at least 5 days per week with additional therapy on as needed basis. Comments: OT for basic ADL re-training (bathing, dressing, toileting, continence, grooming, feeding, transferring), to increase activity tolerance andfunctional mobility and to evaluate for adaptive and assistive devices. Will work to improve pt's endurance and educate pt on fall prevention and energy conservation techniques-pacing strategies and proper breathing techniques duringfunctional tasks. Other: Nutrition, Rehab nursing, Wound, P&O RATIONALE FOR IRF ADMISSION: Patient has both medical and functional complexities that require 24 hour daily monitoring and intervention from Sap Consultant as well as other consulting physicians including internal medicine as well as 24 hour daily children's ministry director nursing - for medical safe / optimal management. Patient requires interdisciplinary therapy team rehabilitation care including OT, PT, SW, Rehab Nursing, requires and can tolerate at least 3 hoursof daily OT and PT therapy at least 5 days weekly. The following medical conditions significantly impact the rehabilitation process and are being addressed daily and can not be managed at home or in a lesser intense medical setting: Refer to above problem oriented plan of care Assessment/Plan (1) SLE (systemic lupus erythematosus related syndrome): (2) Morbid obesity with BMI of 50.0-59.9, adult: (3) Impaired mobility and activities of daily living: (4) Hypertension: (5) Prediabetes: Plan 48-year-old female with PMH of SLE, hypertension, morbid obesity, prediabetes who presents to acute inpatient rehabilitation unit with functional impairments secondary to an elective left total knee arthroplasty. -Need to clarify prednisone duration with orthopedic surgery. -Start daily fingerstick blood glucose checks. Will check A1c level tomorrow morning. -Obtain an x-ray of the left knee due to injury while transferring yesterday. -Continue current pain regimen Patient education Pressure ulcer prophylaxis; encourage mobilization, frequent postural changes, pressure-relief techniques DVT prophylaxis Encourage deep breathing exercise incentive spirometry. Monitor bladder. Toileting schedule. Continue current bladder management, with scans as needed and CIC if needed. Start bowel care program every day to obtain continence, prevent ileus. Maintain fall precautions Gait and balance retraining Functional training and self-care and home management, including activities of daily living and instrumental activities of daily living Provision of the necessary gait aids and functional adaptive equipment to enhance the patient's a functional muslim Ensure adequate nutrition and hydration Sleep Discharge planning. I spent 47 minutes for services, including [id number] encounter with the patient, discussion of the case, plan of care, and exam; and [id number] activities, such as reviewing pertinent homemaking rehabilitation consultant documentation, recent therapynotes, laboratory and radiology studies, and discussion of case with care team including physician, nursing, cyanide case hardener, and therapists. More than 50 % of time was spent on patient/family counseling or coordination ofcare. Patient was personally seen by me, Dr. Bentley, on the day of encounter, within 24 hours of rehab admission, reviewed the history and the relevant portions of the chart, including current orders, allied health and homemaking rehabilitation consultant notes, labs/imaging and performed humphries elements of exam and I formulated the planof care and facilitated the medical decision making. I completed a substantive portion of this encounter, the medical decision makingportion of this note in its entirety, including Allied health note review, nursing note review, homemaking rehabilitation consultant note review, discussion with nursing and case management, and more than 50% of my time was spent on counseling and coordination of care, time spent 60 minutes. Agree with above. Patient with morbid obesity presenting after a left TKA. Reports increased knee pain today. May have tweaked it when she got in last night. Pending XR. Will damon 1 week steroid for post op pain. No other major concerns today. Admission labs and vitals reviewed. 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 lupus erythematosus encephalitis ([facility] Spondylosis without myelopathy or radiculopathy, 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 Primary osteoarthritis of left knee SOPHIE (obstructive sleep apnea) Status post total knee replacement using cement, left Hypoxia Pain: Pain Assessment Pain Assessment: No/denies pain Pain Score: 5 - Moderate pain Pain Location: Knee Pain Orientation: Left Objective General Visit Information: OT Last Visit OT Received On: 11/06/23 General Subjective: Pt willing to participate in session. Precautions Precautions LE Weight Bearing Status: Left, WBAT Medical Precautions: IV, TKA, fall risk Post-Surgical Precautions: L/TKA Cognition Cognition Overall Cognitive Status: (P) Within Functional Limits Arousal/Alertness: (P) Appropriate responses to stimuli Orientation Level: (P) Oriented X4 Following Commands: (P) Follows all commands and directions without difficulty ADL Assessment: Grooming Grooming Level of Assistance: Modified independent Grooming Where Assessed: Standing sinkside Grooming Comments: for oral care and to wash face UE Bathing UE Bathing Level of Assistance: Setup UE Bathing Where Assessed: Standing sinkside UE Bathing Comments: to wash UB and underarms LE Dressing LE Dressing: Yes Sock Level of Assistance: Maximum assistance LE Dressing Where Assessed: Edge of bed LE Dressing Comments: to anne-marie B/footies Toileting Toileting Level of Assistance: Independent Where Assessed: Toilet Toileting Comments: independent for hygiene and clothing mgmt. Toilet Transfers Toilet Transfer From: Bed Toilet Transfer Type: To and from Toilet Transfer to: Standard toilet Toilet Transfer Technique: Ambulating Toilet Transfers: Contact guard Toilet Transfers Comments: vc's for safety with RW Static Sitting Balance Static Sitting Balance Static Sitting-Balance Support: Right upper extremity supported, Left upper extremity supported, Feet supported Static Sitting-Level of Assistance: Close supervision Dynamic Sitting Balance Dynamic Sitting Balance Dynamic Sitting-Balance Support: Right upper extremity supported, Left upper extremity supported, Feet supported Dynamic Sitting-Balance: Forward lean, Reaching for objects, Reaching across midline Dynamic Sitting Balance-Level of Assistance: Close supervision Static Standing Balance Static Standing Balance Static Standing-Balance Support: Right upper extremity supported, Left upper extremity supported, With device Static Standing-Level of Assistance: Contact guard Dynamic Standing Balance Dynamic Standing Balance Dynamic Standing-Balance Support: Right upper extremity supported, Left upper extremity supported, With device Dynamic Standing-Balance: Forward lean, Reaching for objects, Reaching across midline Dynamic Standing Balance-Level of Assistance: Contact guard Dynamic Standing-Comments: to complete groming tasks Bed Mobility Bed Mobility Bed Mobility: Yes Bed Mobility 1 Bed Mobility From 1: Supine Bed Mobility Type 1: To Bed Mobility to 1: Short sit Level of Assistance 1: Minimum assistance Bed Mobility Comments 1: to bring L/LE off edge of bed Transfers Transfers Transfer: Yes Transfer 1 Transfer From 1: Bed Transfer Type 1: To and from Transfer to 1: Chair with arms Technique 1: Sit to stand, Stand to sit Transfer Device 1: rolling walker Transfer Level of Assistance 1: Contact guard Outcome Assessments AM-PAC 6 Clicks Putting on and taking off regular lower body clothing?: A Lot (Mod/Max Assist) Bathing(Including washing,rinsing,drying)?: A Little (Min Assist/Contact Guard/Supervision) Toileting, which includes using the toilet,bedpan,or urinal?: A Lot (Mod/Max Assist) Putting on and taking off regular upper body clothing?: A Little (Min Assist/Contact Guard/Supervision) Taking care of personal grooming such as brushing teeth?: A Little (Min Assist/Contact Guard/Supervision) Eating meals?: None (Independent) Total Score OT [facility]: 17 Assessment/Plan OT Assessment OT Impairments: Decreased ADL status, Decreased safe judgment during ADL, Decreased endurance, Decreased functional mobility, Decreased IADLs OT Assessment/DIRECTOR OF SECURITY Summary: Pt would benefit from continued skilled occupational therapy to maximize level of indepednence in basic ADLs. Prognosis: Good Evaluation/Treatment Tolerance: Patient limited by fatigue, Patient limited by pain Medic (more content not included)...[facility] 11-06-2023 Note Attestation signed by Lyssa Park MD at 11/06/2023 8:58 AM Case discussed with my resident Dr Christopher MOSHER Orthopaedic Surgery Orthopaedic Surgery Progress Note Date: 11/06/2023 Surgery: 10/31/2023 - ARTHROPLASTY, KNEE, TOTAL (L) SUBJECTIVE/24h events: NAEON. Patient doing well on room air. Denies any weakness, numbness, tingling. Walked to door and back with PT. Recommending IPR. Likely DC to IPR today. OBJECTIVE BP 110/60 (Patient Position: Lying) Pulse 76 Temp 36.8 ???C (98.2 ???F) (Oral) Resp 16 Ht 1.676 m (5' 6 ) Wt (!) 174 kg (382 lb 15 oz) SpO2 99% BMI 61.81 kg/m??? General: A/O x3, resting comfortably in bed, cooperative MSK: Left LE -Dressing clean dry intact - Compartments soft / compressible - SILT in superficial peroneal, deep peroneal, sural, saph nerve dist - Motor function intact in tibial, deep peroneal, superficial peroneal dist - Brisk capillary refill Labs: Lab Results Component Value Date WBC 7.89 11/01/2023 HGB 10.7 (L) 11/01/2023 HCT 33.2 (L) 11/01/2023 MCV 93.5 11/01/2023 PLT 305 11/01/2023 Lab Results Component Value Date GLU 133 (H) 02/10/2021 CALCIUM 7.9 (L) 11/01/2023 NA 136 11/01/2023 K 3.6 11/01/2023 CO2 25 11/01/2023 CL 101 11/01/2023 BUN 9 11/01/2023 CREATININE 0.66 11/01/2023 Lab Results Component Value Date INR 1.02 10/22/2023 Imaging: Post op x-rays demonstrating appropriately placed Left total knee arthoplasty with out perioperative complication. ASSESSMENT: Domingo Palma is a 48 y.o. female with left knee osteoarthritis. 6 Days Post-Op ARTHROPLASTY, KNEE, TOTAL (L) PLAN Weightbearing as tolerated LLE Abx: 24hrs Ancef DVT ppx: ASA 325 mg twice daily PT/OT Pain control: Multimodal Medicine consult for desaturation/medical management postop. Plan DC today to IPR Sunday/. Heather White MD Orthopaedic Surgery, PGY-4 Ortho Pager [phone] 11/06/23 8:[facility] Note11/06/23 0740 Post Acute Info Authorization started for [facility] (62) Facility name [facility] When was authorization started? 11/02/23 What time was authorization started? 1450 Determination Approved OTM staff notified Edie Lenz When was authorization received? 11/05/23 What time was authorization received? 1545 When does authorization ? 11/11/23 Approval number ([id number]) Peer to Peer requested Yes Denial overturned after Peer to Peer Yes How are we submitting authorization Website Portal What insurance are we submitting through [employer] Approved authorization after P2P to [facility], OTM notified.[facility]08-26-2024 NotePhysical Therapy Physical Therapy Treatment Patient Name: Domingo Palma : 1975 Today's Date: 11/05/2023 Patient Active Problem List Diagnosis Weakness Asthma Essential hypertension Granulomatous lymphadenitis Migraine Morbid obesity with body mass index of 50 or higher (CMS/HCC) 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 lupus erythematosus encephalitis ([facility]) Spondylosis without myelopathy or radiculopathy, 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 Primary osteoarthritis of left knee SOPHIE (obstructive sleep apnea) Status post total knee replacement using cement, left Hypoxia Objective General Visit Information: PT Last Visit PT Received On: 11/05/23 Response to Previous Treatment: Patient with no complaints from previous session. General Family/Caregiver Present: No Subjective: Pt. seen bedside for PT session this a.m. Upon enty, pt in bed and reports minimal left knee pain as she was recently given pain meds. Pt. is pleasant and agreeable to activities as able. RN okays session including up to bedside chair. Activity Tolerance Activity Tolerance Ambulation comments: Pt. ambulates short distance into hallway then returns to room to use toilet, she then ambulates from toilet to bedside chair. She ambulates ~20', then ~14' with bariatric RW and CGA. Endurance: Stage III Activity Tolerance Comments: Pt. exhibits mild fatigue with increased activities, but no SOB. Precautions Precautions LE Weight Bearing Status: Left, WBAT Post-Surgical Precautions: s/p L TKA on 10/31/23 Pain Pain Assessment Pain Assessment: 0-10 Pain Score: 3 Pain Type: Acute pain, Surgical pain Pain Location: Knee Pain Orientation: Left Pain Frequency: Constant/continuous Pain Onset: Ongoing Pain Interventions: Cold pack, Elevated, Repositioned Cognition Cognition Overall Cognitive Status: Within Functional Limits Arousal/Alertness: Appropriate responses to stimuli Orientation Level: Oriented X4 Following Commands: Follows all commands and directions without difficulty Safety Judgment: Good awareness of safety precautions Awareness of Errors: Good awareness of errors made Deficits: Fully aware of deficits Attention Span: Appears intact Memory: Appears intact Problem Solving: Able to problem solve independently Communication: Intact Cognition Comments: Pt is cooperative and motivated to work with PT. General Assessment General Assessment Hearing: appears WFL Skin Integrity: Surgical site- bandaged Static Sitting Balance Static Sitting Balance Static Sitting-Balance Support: Feet supported, Right upper extremity supported, Left upper extremity supported Static Sitting-Level of Assistance: Distant supervision Static Sitting-Comment/Number of Minutes: at EOB Dynamic Sitting Balance Dynamic Sitting Balance Dynamic Sitting-Balance Support: Right upper extremity supported, Left upper extremity supported, Feet supported Dynamic Sitting Balance-Level of Assistance: Close supervision Dynamic Sitting-Comments: to scoot to EOB Static Standing Balance Static Standing Balance Static Standing-Balance Support: Right upper extremity supported, Left upper extremity supported, With device (with bariatric RW) Static Standing-Level of Assistance: Close supervision (for overall safety d/t fatigue) Dynamic Standing Balance Dynamic Standing Balance Dynamic Standing-Balance Support: Right upper extremity supported, Left upper extremity supported, With device (with bariatric RW) Dynamic Standing Balance-Level of Assistance: Contact guard Dynamic Standing-Comments: during ambulation Treatment: Therapeutic Exercise Therapeutic Exercise Activity 1: LLE (A/AAROM) ankle pumps, LAQs and marches x 10 reps. ea. while seated in bedside chair. Ambulation Ambulation: Yes Ambulation 1 Surface 1: Level tile Device 1: Rolling walker (bariatric) Assistance 1: Contact guard Quality of Gait 1: Slow ambulatory pace. Fwd flexed posture. Wide TEE. Short, shuffling steps to advance gait. Mild unsteadiness is noted, but no LOB. Comments/Distance (ft) 1: ~20', ~14' Stairs Stairs: No Bed Mobility Bed Mobility: Yes Bed Mobility 1 Bed Mobility From 1: Supine Bed Mobility Type 1: To Bed Mobility to 1: Short sit Level of Assistance 1: Minimum assistance (to stabilize LLE during mobility) Bed Mobility Comments 1: HOB elevated, bedrail raised to assist Transfers Transfer: Yes Transfer 1 Transfer From 1: Sit Transfer Type 1: To and from Transfer to 1: Stand Transfer Device 1: (bariatric RW) Transfer Level of Assistance 1: Minimum assistance (pt rocks forward several times to allow momentum to assist with stand but does require min A mid transition to fully get hips off of bed) Transfers 2 Transfer From 2: Sit Transfer Type 2: To and from Transfer to 2: Stand, Toilet Transfer Belem (more content not included)...[facility] 11-05-2023 Note Attestation signed by Lyssa Park MD at 11/05/2023 6:29 AM Care discussed with Dr Christopher MOSHER Orthopaedic Surgery Orthopaedic Surgery Progress Note Date: 11/05/2023 Surgery: 10/31/2023 - ARTHROPLASTY, KNEE, TOTAL (L) SUBJECTIVE/24h events: NAEON. Patient doing well on NC today. Denies any weakness, numbness, tingling. Walked to door and back with PT. Recommending IPR. OBJECTIVE BP 99/50 Pulse 94 Temp 36.7 ???C (98.1 ???F) Resp 18 Ht 1.676 m (5' 6 ) Wt (!) 175 kg (385 lb 12.9 oz) SpO2 98% BMI 62.27 kg/m??? General: A/O x3, resting comfortably in bed, cooperative MSK: Left LE -Dressing clean dry intact - Compartments soft / compressible - SILT in superficial peroneal, deep peroneal, sural, saph nerve dist - Motor function intact in tibial, deep peroneal, superficial peroneal dist - Brisk capillary refill Labs: Lab Results Component Value Date WBC 7.89 11/01/2023 HGB 10.7 (L) 11/01/2023 HCT 33.2 (L) 11/01/2023 MCV 93.5 11/01/2023 PLT 305 11/01/2023 Lab Results Component Value Date GLU 133 (H) 02/10/2021 CALCIUM 7.9 (L) 11/01/2023 NA 136 11/01/2023 K 3.6 11/01/2023 CO2 25 11/01/2023 CL 101 11/01/2023 BUN 9 11/01/2023 CREATININE 0.66 11/01/2023 Lab Results Component Value Date INR 1.02 10/22/2023 Imaging: Post op x-rays demonstrating appropriately placed Left total knee arthoplasty with out perioperative complication. ASSESSMENT: Domingo Palma is a 48 y.o. female with left knee osteoarthritis. 5 Days Post-Op ARTHROPLASTY, KNEE, TOTAL (L) PLAN Weightbearing as tolerated LLE Abx: 24hrs Ancef DVT ppx: ASA 325 mg twice daily PT/OT Pain control: Multimodal Medicine consult for desaturation/medical management postop. Plan DC today to IPR Sunday/. Heather White MD Orthopaedic Surgery, PGY-4 Ortho Pager [phone] 11/05/23 6:19 [facility]08-25-2024 NotePhysical Therapy Physical Therapy Treatment Patient Name: Domingo Palma : 1975 Today's Date: 11/04/2023 Discharge Recommendation: Inpatient Rehab Time Calculation Start Time 1411 Stop Time 1445 Time Calculation (min) 34 min PT Therapeutic Procedures Time Entry Therapeutic Activity Time Entry 34 Patient Active Problem List Diagnosis Weakness Asthma Essential hypertension Granulomatous lymphadenitis Migraine Morbid obesity with body mass index of 50 or higher (CMS/HCC) 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 lupus erythematosus encephalitis ([facility]) Spondylosis without myelopathy or radiculopathy, 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 Primary osteoarthritis of left knee SOPHIE (obstructive sleep apnea) Status post total knee replacement using cement, left Hypoxia 11/04/23 1411 PT Last Visit PT Received On 11/04/23 General Family/Caregiver Present No Subjective I plan to sleep on the first floor when I get home. (Nursing reported pt ok for therapy.) Activity Tolerance Endurance Stage II Stage II (METs 1.4-2.0) - Sitting 10-20 mins Activity Tolerance Comments Pt performed bed mobility, unsupported sitting, transfers, ambulation, and AROM with moderate increase in fatigue and pain. Precautions LE Weight Bearing Status Left;WBAT Medical Precautions TKA, fall risk Post-Surgical Precautions s/p L TKA on 10/31/23 Pain Assessment Pain Assessment 0-10 Pain Score 9 Pain Type Acute pain;Surgical pain Pain Location Knee Pain Orientation Left Cognition Overall Cognitive Status WFL Arousal/Alertness Appropriate responses to stimuli Orientation Level Oriented X4 Following Commands Follows all commands and directions without difficulty Safety Judgment Good awareness of safety precautions Awareness of Errors Good awareness of errors made Deficits Fully aware of deficits General Assessment Skin Integrity Surgical site- bandaged Therapeutic Exercise Therapeutic Exercise Activity 1 Seated knee flexion stretch as tolerated while seated EOB. Therapeutic Activity Therapeutic Activity Time Entry 34 Static Sitting Balance Static Sitting-Balance Support Feet supported Static Sitting-Level of Assistance Distant supervision Dynamic Sitting Balance Dynamic Sitting-Balance Support Feet supported Dynamic Sitting-Balance Lateral lean;Forward lean;Reaching for objects Dynamic Sitting Balance-Level of Assistance Close supervision Static Standing Balance Static Standing-Balance Support Right upper extremity supported;Left upper extremity supported;With device Static Standing-Level of Assistance Close supervision Static Standing-Comment/Number of Minutes SBA for safety during standing with RW for support due to noted fatigue and pain. Dynamic Standing Balance Dynamic Standing-Balance Support Right upper extremity supported;Left upper extremity supported;With device Dynamic Standing Balance-Level of Assistance Contact guard Dynamic Standing-Comments CGA to ensure balance and safety during functional mobility with RW for support due to mild unsteadiness and pain. Ambulation Ambulation Yes Ambulation 1 Comments/Distance (ft) 1 Pt ambulated ~12' and ~16' with RW for support, CGA to ensure balance and safety. Slow, guarded gait with increased pain, fatigue, and SOB. Limited (L) knee flexion, standing rest break required. Unable to safely increase distance. Stairs Stairs No Bed Mobility Bed Mobility Yes Bed Mobility 1 Bed Mobility Comments 1 Sit to supine performed with min assist for LEs into bed. Increased time and effort required. Transfers Transfer Yes Transfer 1 Trials/Comments 1 Sit to stand performed from EOB and toilet with CGA to ensure balance and safety. Increased time and effort required. Transfers 2 Trials/Comments 2 Stand to sit to toilet and EOB with CGA to ensure balance and safety. Increased time and effort required. . Modalities Cryotherapy (Minutes/Location/Skin Check) Cold pack (L)LE at end of session Other Activity Other Activity 1 Pt in bed at end of session with call light in reach, alarm on, and RN aware. PT Assessment PT Assessment/SERVICE SPECIALIST Summary Pt motivated to progress, however, remains limited by deconditioning, pain, (L) knee ROM limitations, and mobility deficits. Prognosis Good Evaluation/Treatment Tolerance Patient limited by pain;Patient limited by fatigue Medical Staff Made Aware Yes Plan Level of assist 1 assist PT Discharge Recommendations Inpatient rehab facility placement Outcome Assessments 6 Clicks (Mobility) Help from another person turning from your back to your side while in a flat bed without using bedrails: A little Help from another person moving from lying on your back to sitting on the side of a flat bed without using bedrails: A little Help from another person moving to and from a bed to a chair ( (more content not included)...[facility]08-25-2024 Note Attestation signed by Lyssa Park MD at 11/05/2023 5:33 AM Care was discussed with my resident Dr Cassandra MOSHER Orthopaedic Surgery Orthopaedic Surgery Progress Note Date: 11/04/2023 Surgery: 10/31/2023 - ARTHROPLASTY, KNEE, TOTAL (L) SUBJECTIVE/24h events: NAEON. Patient doing well on NC today. Denies any weakness, numbness, tingling. Walked to door and back with PT. Recommending IPR. OBJECTIVE BP 95/60 Pulse 91 Temp 36.4 ???C (97.5 ???F) Resp 16 Ht 1.676 m (5' 6 ) Wt (!) 175 kg (385 lb 5.8 oz) SpO2 96% BMI 62.20 kg/m??? General: A/O x3, resting comfortably in bed, cooperative MSK: Left LE -Dressing clean dry intact - Compartments soft / compressible - SILT in superficial peroneal, deep peroneal, sural, saph nerve dist - Motor function intact in tibial, deep peroneal, superficial peroneal dist - Brisk capillary refill Labs: Lab Results Component Value Date WBC 7.89 11/01/2023 HGB 10.7 (L) 11/01/2023 HCT 33.2 (L) 11/01/2023 MCV 93.5 11/01/2023 PLT 305 11/01/2023 Lab Results Component Value Date GLU 133 (H) 02/10/2021 CALCIUM 7.9 (L) 11/01/2023 NA 136 11/01/2023 K 3.6 11/01/2023 CO2 25 11/01/2023 CL 101 11/01/2023 BUN 9 11/01/2023 CREATININE 0.66 11/01/2023 Lab Results Component Value Date INR 1.02 10/22/2023 Imaging: Post op x-rays demonstrating appropriately placed Left total knee arthoplasty with out perioperative complication. ASSESSMENT: Domingo Palma is a 48 y.o. female with left knee osteoarthritis. 4 Days Post-Op ARTHROPLASTY, KNEE, TOTAL (L) PLAN Weightbearing as tolerated LLE Abx: 24hrs Ancef DVT ppx: ASA 325 mg twice daily PT/OT Pain control: Multimodal Medicine consult for desaturation/medical management postop. Plan DC today to IPR Sunday/. 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 Yes Patient's goal for discharge [facility] Does the patient need discharge transport arranged? Yes Screened by [facility]. PT/OT recommends in rehab. Pt has DC orders. [facility] 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 Patient doing well on NC today. Denies any weakness, numbness, tingling. Walked to door and back with PT. Recommending IPR. OBJECTIVE BP 119/69 (BP Location: Right arm, Patient Position: Lying) Pulse 109 Temp 37.4 ???C (99.3 ???F) (Oral) Resp 16 Ht 1.676 m (5' 6 ) Wt (!) 172 kg (378 lb 5 oz) SpO2 96% BMI 61.06 kg/m??? General: A/O x3, resting comfortably in bed, cooperative MSK: Left LE -Dressing clean dry intact - Compartments soft / compressible - SILT in superficial peroneal, deep peroneal, sural, saph nerve dist - Motor function intact in tibial, deep peroneal, superficial peroneal dist - Brisk capillary refill Labs: Lab Results Component Value Date WBC 7.89 11/01/2023 HGB 10.7 (L) 11/01/2023 HCT 33.2 (L) 11/01/2023 MCV 93.5 11/01/2023 PLT 305 11/01/2023 Lab Results Component Value Date GLU 133 (H) 02/10/2021 CALCIUM 7.9 (L) 11/01/2023 NA 136 11/01/2023 K 3.6 11/01/2023 CO2 25 11/01/2023 CL 101 11/01/2023 BUN 9 11/01/2023 CREATININE 0.66 11/01/2023 Lab Results Component Value Date INR 1.02 10/22/2023 Imaging: Post op x-rays demonstrating appropriately placed Left total knee arthoplasty with out perioperative complication. ASSESSMENT: Domingo Palma is a 48 y.o. female with left knee osteoarthritis. 3 Days Post-Op ARTHROPLASTY, KNEE, TOTAL (L) PLAN Weightbearing as tolerated LLE Abx: 24hrs Ancef DVT ppx: ASA 325 mg twice daily PT/OT Pain control: Multimodal Medicine consult for desaturation/medical management postop. Plan DC today to IPR Sunday/. Heather White MD Orthopaedic Surgery, PGY-4 Ortho Pager [phone] 11/03/23 8:09 [facility]08-23-2024 NoteOccupational Therapy Treatment Note Patient Name: Domingo Palma Patient Date of : 1975 Today's Date: 11/02/23 Time in: 1159 Time Out: 1302 Total Time: 63 min Past Medical History and Past Surgical History Patient Active Problem List Diagnosis Weakness Asthma Essential hypertension Granulomatous lymphadenitis Migraine Morbid obesity with body mass index of 50 or higher ([facility]) 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 lupus erythematosus encephalitis ([facility]) Spondylosis without myelopathy or radiculopathy, 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 Primary osteoarthritis of left knee SOPHIE (obstructive sleep apnea) Status post total knee replacement using cement, left Hypoxia Past Medical History: Diagnosis Date Arthritis CPAP (continuous positive airway pressure) dependence Fibromyalgia, primary Hypertension Left knee pain Lupus (systemic lupus erythematosus) ([facility]) Migraine Obesity BMI 54.55 Osteoarthritis Sleep apnea Past Surgical History: Procedure Laterality Date GASTRECTOMY SLEEVE JOINT REPLACEMENT Right 02/2021 KNEE OT Received On 11/02/2023 Subjective I think my lupus is flaring up Pt reported her whole body feels painful and fatigued and she coughs when she has a Lupus flare up. Objective 1 RN OK for patient to be seen out of bed at this time. Pt was in bed upon arrival and agreeable to session. Completed UB dressing, UB and LB bathing, and functional mobility. Pt returned to bed with call light and needs in reach. RN aware of pt performance. Objective 2 OT Discharge Recommendation Inpatient Rehab/PM&R Pt is decided between IPR and going home. Pt educated that her home set up and performance in daily tasks do not appear safe at this time. Pt expressed concern about going to [facility] and asked to speak with SW, SW notified OT Equipment Recommendations Rolling walker, Bedside Commode - bariatric for both General Pain Did not quantify Pain Location Knee: left Pain Comments Precautions: Fall risk, IV, TKA LE WB status left, WBAT Cognition Orientation Oriented x4 Attention Span intact Memory intact Sequencing intact Problem Solving intact Other General Assessment Vision intact Hearing Intact Communication Intact Skin: Surgical site is bandaged Edema: Balance: Sitting Static Balance: Balance support No UE Support, Feet Supported Level of Assist: Supervision/set -up Comments: Sitting Dynamic Balance: Balance support Unilateral UE Support, No UE Support, Feet Supported Level of Assist: Supervision/set -up Comments: To complete ADLs sitting sink side: Wash face, brush teeth, UB bathing Standing Static Balance: Balance support R UE support, L UE support, Unilateral UE support, Rolling Walker Level of Assist: Supervision/set -up Comments: Unilateral UE when completing ADLs at sink side Standing Dynamic Balance: Balance support R UE support, L UE support, Unilateral UE support, Rolling Walker Level of Assist: Supervision/set -up, CGA Comments: Unilateral UE when completing ADLs at sink side: LB bathing, UB dressing, and functional mobility, CGA when ambulating Activity Tolerance: Stage/number of minutes Required a rest break after ~8min bed mobility Walked for ~8 minutes before requiring a rest break Stood at sink ~7 minutes completing ADLs Sat in chair at sink ~20 minutes completing ADLs Number of rest breaks 5-6 Comments: Vitals WFL for duration of session. Pt fatigued with physical activity and required extended amounts of time to complete functional tasks Activities of Daily Living Grooming: Level of Assistance: Supervision/set -up Where Assessed: sitting in chair sink side, no assistive device Comments: Arturoo'd brushing teeth without difficulty once set up UB dressing: Level of Assistance: Minimal assist Where Assessed: Standing , No equipment used Comments: Donned gown without UE support, required assist to provide gown in front of pt to start threading BUEs UB bathing: Level of Assistance: Supervision/set -up Where Assessed: from chair sink side, None Comments: Thorough UB bathing, including face, did well after set up with materials LB Bathing Level of Assistance: Supervision/set -up Where Assessed: Standing, None Comments: Stood at sink to complete robin area bathing, used unilateral UE support on sink Bed Mobility: Rolling Right: Independent Comments: To fix sheets Supine to Sit: Minimal Assist , Min VC Comments: Assist with LLE, VC for hand placement/technique Sit to Supine: Minimal Assist Comments: Assist with LLE Transfers: Sit to Stand: Moderate Assist, Rolling Walker Comments: 1x from bed Stand to Sit: CGA, Rolling Walker Comments: 1x to chair, 1x to bed To chair: Moderate Assist, Rolling Walker Comments: 1x sit >stand from chair Functional Ambulation: Demo'd (more content not included)...[facility]08-23-2024 Note11/02/23 1450 Post Acute Info Authorization started for Inpatient Rehab Hospital (62) Facility name [facility] When was authorization started? 11/02/23 What time was authorization started? 1450 Reference number for submission ([id number]) How are we submitting authorization Website Portal What insurance are we submitting through [employer] Submitted precert request for [facility] EFRAIN ARROYO to follow.[facility]08-23-2024 Note Attestation signed by Kim Stafford MD at 11/03/2023 10:56 AM GC: I saw this patient. I personally personally the critical/humphries portions that determines the level of service. I was directly involved in the management and treatment plan of the patient. I reviewed Richard Smith MD's note and agree. Reviewed and approved by KIM STAFFORD on 11/03/23 at 10:56 AM. GIM Inpatient Progress Note Patient - Navdeep Palma Age - 48 y.o. - 1975 Date of Admission - 10/31/2023 6:41 AM Interval history Patient was seen and examined at bedside this morning. Hemodynamically stable and afebrile. Saturating well on room air. Denied chest pain, SOB, cough, abdominal pain or change in bowel habits. OBJECTIVE Vitals height is 1.676 m (5' 6 ) and weight is 179 kg (394 lb 10 oz) (abnormal). Her oral temperature is 37.3 ???C (99.1 ???F). Her blood pressure is 125/71 and her pulse is 96. Her respiration is 18 and oxygen saturation is 92%. Temp: [36.8 ???C (98.2 ???F)-37.3 ???C (99.1 ???F)] 37.3 ???C (99.1 ???F) Heart Rate: [96-101] 96 Resp: [14-18] 18 BP: (125-128)/(71-72) 125/71 Weight: Admission weight: (!) 158 kg (348 lb 1.7 oz) Wt Readings from Last 1 Encounters: 11/02/23 (!) 179 kg (394 lb 10 oz) Input/Output: Intake/Output Summary (Last 24 hours) at 11/02/2023 1340 Last data filed at 11/02/2023 0900 Gross per 24 hour Intake 100 ml Output 625 ml Net -525 ml Physical Examination: General: Well-appearing, in no acute distress Head: Normocephalic, atraumatic. HEENT: No scleral icterus. Oral mucosa is moist without erythema, lesions, or ulcerations. Pulm: Clear to auscultation. No audible wheezing, rales, or rhonchi. Breathing is non-labored. Cardiac: Regular rate, regular rhythm. Normal S1/S2. No appreciable murmurs, gallops, or rubs. GI: Abdomen is soft, non-distended, non-tender. Ext: No peripheral edema. Neuro: Alert and oriented x 3. Lab Results Results from last 7 days Lab Units 11/01/23 0541 WBC AUTO 10*3/uL 7.89 HEMOGLOBIN g/dL 10.7* HEMATOCRIT % 33.2* PLATELETS AUTO 10*3/uL 305 Results from last 7 days Lab Units 11/01/23 0541 SODIUM mmol/L 136 POTASSIUM mmol/L 3.6 CHLORIDE mmol/L 101 CO2 mmol/L 25 BUN mg/dL 9 CREATININE mg/dL 0.66 GLUCOSE mg/dL 183* CALCIUM mg/dL 7.9* No lab exists for component: TOTALPROTEI , LABBILIRUBIN , TOTALBILIRUB , BILIRUB , BILIRUBIND No results found for: HGBA1C No lab exists for component: TROPI , TROPONIN No lab exists for component: ABGPH , ABGPCO2 , ABGPO2 , ABGHCO3 , ABGBASEDEFIC , MVXS0HGQ , ABGOXYGENSOU No lab exists for component: LACTICACID , PROCALCITON No lab exists for component: CHOLHDL Lab Results Component Value Date WBCU 0-2 (A) 10/22/2023 UROBILINOGEN 2.0 (A) 10/22/[address] results found for the past 12 months No MRI head results found for the past 12 months XR knee 1 or 2 views left Result Date: 10/31/2023 *Status post left knee arthroplasty. No hardware complications. Electronically signed: Solitario Pal MD. Medications Scheduled: amLODIPine, 10 mg, oral, Daily aspirin, 325 mg, oral, BID cholecalciferol, 2,000 Units, oral, Daily with breakfast docusate sodium, 100 mg, oral, BID DULoxetine, 60 mg, oral, Daily hydrOXYzine pamoate, 50 mg, oral, TID losartan, 25 mg, oral, Nightly magnesium oxide, 400 mg, oral, Daily montelukast, 10 mg, oral, Daily Oxygen Therapy, , inhalation, Continuous topiramate, 50 mg, oral, Nightly Infusions: lactated Ringer's, 30 mL/hr, Last Rate: 30 mL/hr (11/01/23 0136) As Needed: PRN medications: docusate sodium, HYDROmorphone, naloxone OR naloxone OR naloxone, ondansetron, ondansetron ODT OR ondansetron, ondansetron ODT OR ondansetron, oxyCODONE OR oxyCODONE, prochlorperazine, tiZANidine ASSESSMENT: DJD s/p left-sided total knee arthroplasty on 10/30 Hypertension, well-controlled with medication Class III obesity Obstructive sleep apnea, not using CPAP at home Lumbar region spondylosis PLAN: Continue supplemental oxygen to maintain O2 above 90%, wean as tolerated, patient currently on room air Continue CPAP while patient is sleeping and at night Encourage incentive spirometry Pain control and further management per primary team Ok to DC Patient is pending inpatient rehab We will sign off, please contact us with any questions or concerns Richard Smith MD. PGY3, Internal Medicine Residency Program [facility] Preferred contact methods: Epic Chat [facility]IM consult pagerUniversAccess [facility]24 NotePhysical Therapy Physical Therapy Treatment Patient Name: Domingo Palma : 1975 Today's Date: 11/02/2023 Patient Active Problem List Diagnosis Weakness Asthma Essential hypertension Granulomatous lymphadenitis Migraine Morbid obesity with body mass index of 50 or higher ([facility]) 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 lupus erythematosus encephalitis ([facility]) Spondylosis without myelopathy or radiculopathy, 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 Primary osteoarthritis of left knee SOPHIE (obstructive sleep apnea) Status post total knee replacement using cement, left Hypoxia Objective General Visit Information: PT Last Visit PT Received On: 11/02/23 General Family/Caregiver Present: No Subjective: Pt seated edge of bed with OT upon PT arrival to room. Pt agreeable to amb in room. Pt seated in recliner after amb to complete ADLs with OT. Precautions Precautions LE Weight Bearing Status: Left, WBAT Medical Precautions: IV, TKA, fall risk Pain Pain Assessment Pain Score: 8 Pain Type: Acute pain, Surgical pain Pain Location: Knee Pain Orientation: Left Pain Interventions: Cold applied, Elevated Cognition Cognition Overall Cognitive Status: Within Functional Limits Arousal/Alertness: Appropriate responses to stimuli Following Commands: Follows all commands and directions without difficulty Safety Judgment: Good awareness of safety precautions Awareness of Errors: Good awareness of errors made Deficits: Fully aware of deficits Attention Span: Appears intact Communication: Intact General Assessment General Assessment Hearing: appears WFL Skin Integrity: Surgical site- bandaged Static Sitting Balance Static Sitting Balance Static Sitting-Balance Support: No upper extremity supported, Feet supported Static Sitting-Level of Assistance: Close supervision Dynamic Sitting Balance Dynamic Sitting Balance Dynamic Sitting-Balance Support: Right upper extremity supported, Left upper extremity supported, Feet supported Dynamic Sitting-Balance: Forward lean Dynamic Sitting Balance-Level of Assistance: Close supervision Static Standing Balance Static Standing Balance Static Standing-Balance Support: Right upper extremity supported, Left upper extremity supported, With device Static Standing-Level of Assistance: Contact guard Dynamic Standing Balance Dynamic Standing Balance Dynamic Standing-Balance Support: Right upper extremity supported, Left upper extremity supported, With device Dynamic Standing Balance-Level of Assistance: Contact guard General Assessments: Activity Tolerance Endurance: Stage III Stage III (METs 2.0-3.0) - Sitting to Standin-10 mins Cognition Overall Cognitive Status: Within Functional Limits Arousal/Alertness: Appropriate responses to stimuli Following Commands: Follows all commands and directions without difficulty Safety Judgment: Good awareness of safety precautions Awareness of Errors: Good awareness of errors made Deficits: Fully aware of deficits Attention Span: Appears intact Communication: Intact Treatment: Therapeutic Exercise Therapeutic Exercise Activity 1: Pt reports she has been performing quad sets. Ambulation Ambulation: Yes Ambulation 1 Surface 1: Level tile Device 1: Rolling walker (bariatric) Assistance 1: Contact guard Quality of Gait 1: No LOB. Pt amb with step-to gait pattern in room. Pt reports improved tolerance to amb today. No instability noted this session. Slowed pace. Comments/Distance (ft) 1: ~12' x2 with brief standing rest break. Stairs Stairs: No Bed Mobility Bed Mobility: No Bed Mobility 1 Bed Mobility From 1: Supine Bed Mobility Type 1: To and from Bed Mobility to 1: Short sit Level of Assistance 1: Minimum assistance Bed Mobility Comments 1: Assist with L LE. Transfers Transfer: Yes Transfer 1 Transfer From 1: Sit, Bed Transfer Type 1: To Transfer to 1: Stand Technique 1: Sit to stand Transfer Device 1: rolling walker Transfer Level of Assistance 1: Minimum assistance (2nd assist present for safety (CGA)) Trials/Comments 1: Increased assist with first half of stand to initiate movement. Pt's first attempt to stand was unsuccessful. Transfers 2 Transfer From 2: Stand Transfer Type 2: To Transfer to 2: Sit, Chair with arms Technique 2: Stand to sit Transfer Device 2: rolling walker Transfer Level of Assistance 2: Contact guard, Minimal verbal cues Outcome Assessments 6 Clicks (Mobility) Help from another person turning from your back to your side while in a flat bed without using bedrails: A little Help from another person moving from lying on your back to sitting on the side of a flat bed without using bedrails: A little Help from another person moving to and from a bed to a chair (including a wheelchair): A little Help from another person tao (more content not included)...[facility]08-23-2024 Note Attestation signed by Lyssa Park MD at 11/02/2023 6:45 AM Care was discussed with my resident in orthopedic surgery Dr Heather White MD Orthopaedic Surgery Orthopaedic Surgery Progress Note Date: 11/02/2023 Surgery: 10/31/2023 - ARTHROPLASTY, KNEE, TOTAL (L) SUBJECTIVE/24h events: NAEON. Patient doing well on NC today. Denies any weakness, numbness, tingling. Walked to door and back with PT. Recommending IPR. OBJECTIVE BP 128/72 (BP Location: Right arm, Patient Position: Lying) Pulse 101 Temp 36.8 ???C (98.2 ???F) (Tympanic) Resp 14 Ht 1.676 m (5' 6 ) Wt (!) 179 kg (394 lb 10 oz) SpO2 96% BMI 63.69 kg/m??? General: A/O x3, resting comfortably in bed, cooperative MSK: Left LE -Dressing clean dry intact - Compartments soft / compressible - SILT in superficial peroneal, deep peroneal, sural, saph nerve dist - Motor function intact in tibial, deep peroneal, superficial peroneal dist - Brisk capillary refill Labs: Lab Results Component Value Date WBC 7.89 11/01/2023 HGB 10.7 (L) 11/01/2023 HCT 33.2 (L) 11/01/2023 MCV 93.5 11/01/2023 PLT 305 11/01/2023 Lab Results Component Value Date GLU 133 (H) 02/10/2021 CALCIUM 7.9 (L) 11/01/2023 NA 136 11/01/2023 K 3.6 11/01/2023 CO2 25 11/01/2023 CL 101 11/01/2023 BUN 9 11/01/2023 CREATININE 0.66 11/01/2023 Lab Results Component Value Date INR 1.02 10/22/2023 Imaging: @[id number]@ ASSESSMENT: Domingo Palma is a 48 y.o. female with left knee osteoarthritis. 2 Days Post-Op ARTHROPLASTY, KNEE, TOTAL (L) PLAN Weightbearing as tolerated LLE Abx: 24hrs Ancef DVT ppx: ASA 325 mg twice daily PT/OT Pain control: Multimodal Medicine consult for the setting postop. Patient is satting in the 90s to 100 on room air today. Plan DC today to IPR, SNF or home with home health pending repeat PT eval and her functional status this AM. Heather White MD Orthopaedic Surgery, PGY-4 Ortho Pager [phone] 11/02/23 6:01 AM I am available via [employer] 6a-6p. May contact the on-call resident with any concerns via the Orthopaedic pager at any time.[facility]08-22-2024 Note Attestation signed by Nohemi Zimmer OT at 11/01/2023 3:59 PM This typewriter mechanic present and provided 1:1 supervision and direction of patient care. Simone ANGEL/ANSELMO Bey Occupational Therapy Occupational Therapy Re-Evaluation Patient Name: Domingo Palma : 1975 Today's Date: 11/01/2023 Time in: 1205 Time out: 1241 Surgery type: L TKA Surgery date: 10/31/23 RN OK for patient to be seen out of bed at this time. Pt was in bed upon arrival and agreeable to session. Completed education, bed mobility, and functional mobility. Pt returned to bed with call light and needs in reach. RN aware of pt performance. Patient Active Problem List Diagnosis Weakness Asthma Essential hypertension Granulomatous lymphadenitis Migraine Morbid obesity with body mass index of 50 or higher ([facility]) 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 lupus erythematosus encephalitis ([facility]) Spondylosis without myelopathy or radiculopathy, 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 Primary osteoarthritis of left knee SOPHIE (obstructive sleep apnea) Status post total knee replacement using cement, left Hypoxia Past Medical History: Diagnosis Date Arthritis CPAP (continuous positive airway pressure) dependence Fibromyalgia, primary Hypertension Left knee pain Lupus (systemic lupus erythematosus) ([facility]) Migraine Obesity BMI 54.55 Osteoarthritis Sleep apnea Past Surgical History: Procedure Laterality Date GASTRECTOMY SLEEVE JOINT REPLACEMENT Right 02/2021 KNEE Precautions Precautions LE Weight Bearing Status: Left, WBAT Pain Pain Assessment Pain Assessment: 0-10 Pain Score: 8 Pain Type: Acute pain, Surgical pain Pain Location: Knee Pain Orientation: Left Cognition Cognition Overall Cognitive Status: Within Functional Limits Arousal/Alertness: Appropriate responses to stimuli Following Commands: Follows all commands and directions without difficulty Safety Judgment: Good awareness of safety precautions Awareness of Errors: Good awareness of errors made Deficits: Fully aware of deficits Attention Span: Appears intact Communication: Intact General Assessment General Assessment Hearing: appears WFL Skin Integrity: Surgical site- bandaged Home Living Home Living Type of Home: (see previous OT eval for home set up and PLOF) Static Sitting Balance Static Sitting Balance Static Sitting-Balance Support: Feet supported, Left upper extremity supported, Right upper extremity supported Static Sitting-Level of Assistance: Distant supervision Dynamic Sitting Balance Dynamic Sitting Balance Dynamic Sitting-Balance Support: Right upper extremity supported, Left upper extremity supported, Feet supported Dynamic Sitting-Balance: Forward lean Dynamic Sitting Balance-Level of Assistance: Close supervision Static Standing Balance Static Standing Balance Static Standing-Balance Support: Right upper extremity supported, Left upper extremity supported, With device (RW) Static Standing-Level of Assistance: Contact guard Dynamic Standing Balance Dynamic Standing Balance Dynamic Standing-Balance Support: With device, Left upper extremity supported, Right upper extremity supported Dynamic Standing Balance-Level of Assistance: Contact guard ADL ADL Grooming Assistance: Stand by Bathing Assistance: Minimal Bathing Deficit: Left lower leg including foot, Right lower leg including foot, Increased time to complete , Supervision/safety UE Dressing Assistance: Stand by LE Dressing Assistance: Maximal Toileting Assistance with Device: Minimal Toileting Deficit: Increased time to complete, Clothing management down Bed Mobility Bed Mobility Bed Mobility: Yes Bed Mobility 1 Bed Mobility From 1: Supine Bed Mobility Type 1: To and from Bed Mobility to 1: Short sit Level of Assistance 1: Minimum assistance Bed Mobility Comments 1: Assist with LLE Transfers Transfers Transfer: Yes Transfer 1 Transfer From 1: Bed, Sit Transfer Type 1: To Transfer to 1: Stand Technique 1: Sit to stand Transfer Device 1: rolling walker (and pushing from bed rail) Transfer Level of Assistance 1: Moderate assistance, Minimum assistance, x2 (mod to min assist x2) Trials/Comments 1: Pt's first attempt to stand was unsuccessful. Increased assist with first half of stand to initiate movement. Transfers 2 Transfer From 2: Stand Transfer Type 2: To Transfer to 2: Sit, Bed Technique 2: Stand to sit Transfer Device 2: rolling walker Transfer Level of Assistance 2: Contact guard Objective General Assessments Activity Tolerance Ambulation comments: demo'd functional ambulation in room from EOB to door and back to bed. Used RW a (more content not included)...[facility]08-22-2024 Note Attestation signed by Kim Stafford MD at 11/03/2023 10:56 AM GC: I saw this patient. I personally personally the critical/humphries portions that determines the level of service. I was directly involved in the management and treatment plan of the patient. I reviewed Richard Smith MD's note and agree. Reviewed and approved by KIM STAFFORD on 11/03/23 at 10:56 AM. PATRICIAM Inpatient Progress Note Patient - Navdeep Palma Age - 48 y[facility] 1975 [id number] Date of Admission - 10/31/2023 6:41 AM Interval history Patient was seen and examined at bedside this morning. Hemodynamically stable and afebrile. Saturating well on room air. Denied chest pain, SOB, cough, abdominal pain or change in bowel habits. OBJECTIVE Vitals height is 1.676 m (5' 6 ) and weight is 171 kg (378 lb 1.4 oz) (abnormal). Her temperature is 36.8 ???C (98.2 ???F). Her blood pressure is 158/91 (abnormal) and her pulse is 93. Her respiration is 22 and oxygen saturation is 100%. Temp: [36.4 ???C (97.5 ???F)-37.2 ???C (99 ???F)] 36.8 ???C (98.2 ???F) Heart Rate: [76-94] 93 Resp: [16-23] 22 BP: (126-160)/(83-91) 158/91 Weight: Admission weight: (!) 158 kg (348 lb 1.7 oz) Wt Readings from Last 1 Encounters: 11/01/23 (!) 171 kg (378 lb 1.4 oz) Input/Output: Intake/Output Summary (Last 24 hours) at 11/01/2023 1346 Last data filed at 11/01/2023 0220 Gross per 24 hour Intake 626.5 ml Output 500 ml Net 126.5 ml Physical Examination: General: Well-appearing, in no acute distress Head: Normocephalic, atraumatic. HEENT: No scleral icterus. Oral mucosa is moist without erythema, lesions, or ulcerations. Pulm: Clear to auscultation. No audible wheezing, rales, or rhonchi. Breathing is non-labored. Cardiac: Regular rate, regular rhythm. Normal S1/S2. No appreciable murmurs, gallops, or rubs. GI: Abdomen is soft, non-distended, non-tender. Ext: No peripheral edema. Neuro: Alert and oriented x 3. Lab Results Results from last 7 days Lab Units 08/22/24 0541 WBC AUTO 10*3/uL 7.89 HEMOGLOBIN g/dL 10.7* HEMATOCRIT % 33.2* PLATELETS AUTO 10*3/uL 305 Results from last 7 days Lab Units 11/01/23 0541 SODIUM mmol/L 136 POTASSIUM mmol/L 3.6 CHLORIDE mmol/L 101 CO2 mmol/L 25 BUN mg/dL 9 CREATININE mg/dL 0.66 GLUCOSE mg/dL 183* CALCIUM mg/dL 7.9* No lab exists for component: TOTALPROTEI , LABBILIRUBIN , TOTALBILIRUB , BILIRUB , BILIRUBIND No results found for: HGBA1C No lab exists for component: TROPI , TROPONIN No lab exists for component: ABGPH , ABGPCO2 , ABGPO2 , ABGHCO3 , ABGBASEDEFIC , [id number] , ABGOXYGENSOU No lab exists for component: LACTICACID , PROCALCITON No lab exists for component: CHOLHDL Lab Results Component Value Date WBCU 0-2 (A) 10/22/2023 UROBILINOGEN 2.0 (A) 10/22/[address] results found for the past 12 months No MRI head results found for the past 12 months XR knee 1 or 2 views left Result Date: 10/31/2023 *Status post left knee arthroplasty. No hardware complications. Electronically signed: Solitario Pal MD. Medications Scheduled: amLODIPine, 10 mg, oral, Daily aspirin, 325 mg, oral, BID cholecalciferol, 2,000 Units, oral, Daily with breakfast docusate sodium, 100 mg, oral, BID DULoxetine, 60 mg, oral, Daily hydrOXYzine HCL, 50 mg, oral, TID losartan, 25 mg, oral, Nightly magnesium oxide, 400 mg, oral, Daily montelukast, 10 mg, oral, Daily Oxygen Therapy, , inhalation, Continuous topiramate, 50 mg, oral, Nightly Infusions: lactated Ringer's, 30 mL/hr, Last Rate: 30 mL/hr (11/01/23 0136) As Needed: PRN medications: docusate sodium, HYDROmorphone, melatonin, naloxone OR naloxone OR naloxone, ondansetron, ondansetron ODT OR ondansetron, ondansetron ODT OR ondansetron, oxyCODONE OR oxyCODONE, prochlorperazine ASSESSMENT: DJD s/p left-sided total knee arthroplasty on 10/30 Hypertension, well-controlled with medication Class III obesity Obstructive sleep apnea, not using CPAP at home Lumbar region spondylosis PLAN: Continue supplemental oxygen to maintain O2 above 90%, wean as tolerated Continue CPAP while patient is sleeping and at night Encourage incentive spirometry Pain control and further management per primary team Ok to MEHREEN Smith MD. PGY3, Internal Medicine Residency Program [facility] Preferred contact methods: Epic Chat GIM consult pagerUnivers[facility] NotePhysical Therapy Physical Therapy Treatment Patient Name: Domingo Palma : 1975 Today's Date: 11/01/2023 Patient Active Problem List Diagnosis Weakness Asthma Essential hypertension Granulomatous lymphadenitis Migraine Morbid obesity with body mass index of 50 or higher (CMS/HCC) 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 lupus erythematosus encephalitis (CMS/HCC) Spondylosis without myelopathy or radiculopathy, 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 Primary osteoarthritis of left knee SOPHIE (obstructive sleep apnea) Status post total knee replacement using cement, left Hypoxia Objective General Visit Information: PT Last Visit PT Received On: 11/01/23 General Family/Caregiver Present: No Subjective: Pt L side-lying upon arrival, agreeable to PT. Pt reporting she has not slept for several days, except for OR. More alert this session. Pt amb limited distance at bedside, then returned to supine in bed. Call light given. Activity Tolerance Activity Tolerance Endurance: Stage II Stage II (METs 1.4-2.0) - Sittin-10 mins Precautions Precautions LE Weight Bearing Status: Left, WBAT Medical Precautions: IV, TKA, fall risk Pain Pain Assessment Pain Score: 8 Pain Type: Acute pain, Surgical pain Pain Location: Knee (and anterior thigh) Pain Orientation: Left Pain Interventions: Cold applied, Elevated Cognition Cognition Overall Cognitive Status: Within Functional Limits Arousal/Alertness: Appropriate responses to stimuli Following Commands: Follows all commands and directions without difficulty Safety Judgment: Good awareness of safety precautions Awareness of Errors: Good awareness of errors made Deficits: Fully aware of deficits Attention Span: Appears intact Communication: Intact General Assessment General Assessment Hearing: appears WFL Skin Integrity: Surgical site- bandaged Static Sitting Balance Static Sitting Balance Static Sitting-Balance Support: Feet supported, Right upper extremity supported, Left upper extremity supported Static Sitting-Level of Assistance: Distant supervision Dynamic Sitting Balance Dynamic Sitting Balance Dynamic Sitting-Balance Support: Right upper extremity supported, Left upper extremity supported, Feet supported Dynamic Sitting-Balance: Forward lean Dynamic Sitting Balance-Level of Assistance: Close supervision Static Standing Balance Static Standing Balance Static Standing-Balance Support: Right upper extremity supported, Left upper extremity supported, With device Static Standing-Level of Assistance: Contact guard Dynamic Standing Balance Dynamic Standing Balance Dynamic Standing-Balance Support: Right upper extremity supported, Left upper extremity supported, With device Dynamic Standing Balance-Level of Assistance: Contact guard General Assessments: Activity Tolerance Endurance: Stage II Stage II (METs 1.4-2.0) - Sittin-10 mins Cognition Overall Cognitive Status: Within Functional Limits Arousal/Alertness: Appropriate responses to stimuli Following Commands: Follows all commands and directions without difficulty Safety Judgment: Good awareness of safety precautions Awareness of Errors: Good awareness of errors made Deficits: Fully aware of deficits Attention Span: Appears intact Communication: Intact Treatment: Therapeutic Exercise Therapeutic Exercise Activity 1: Reviewed quad sets for pt to complete on her own throughout the day. Pt able to demonstrate on more. LEs. Ambulation Ambulation: Yes Ambulation 1 Surface 1: Level tile Device 1: Rolling walker (Bariatric) Assistance 1: Contact guard Quality of Gait 1: No LOB. Pt amb with step-to gait in room, distance limited by pain. Pt reports feeling of instability in knee. Pt encouraged to increase use of UEs d/t decreased strength/stability of L LE. Comments/Distance (ft) 1: ~8 Stairs Stairs: No Bed Mobility Bed Mobility: Yes Bed Mobility 1 Bed Mobility From 1: Supine Bed Mobility Type 1: To and from Bed Mobility to 1: Short sit Level of Assistance 1: Minimum assistance Bed Mobility Comments 1: Assist with L LE. Transfers Transfer: Yes Transfer 1 Transfer From 1: Sit, Bed Transfer Type 1: To Transfer to 1: Stand Technique 1: Sit to stand Transfer Device 1: rolling walker (and bed rail) Transfer Level of Assistance 1: (mod to min assist x2) Trials/Comments 1: Increased assist with first half of stand to initiate movement. Pt's first attempt to stand was unsuccessful. Transfers 2 Transfer From 2: Stand Transfer Type 2: To Transfer to 2: Sit, Bed Technique 2: Stand to sit Transfer Device 2: rolling walker Transfer Level of Assistance 2: Contact guard L knee assessment- decreased flexion in sitting, unable to fully extend in supine. Unable to extend knee anti-gravity (minimal active ROM noted in sitting ed (more content not included)...[facility]08-22-2024 Note9:25- DME referral recieved. 10:10-SW informed by [facility] that patient wants HHC and has no preference and is agreeable to a mass referral. SW sent referrals-await response. OTM will continue to follow.[facility]08-22-2024 Note 11/01/23 1013 Admission Assessment Questions Verify insurance with patient Yes Do you understand medical disease or what brought you into the hospital? Yes Who is your current PCP? Bong Phelan Can I schedule a follow up appointment for you at the time of discharge? Yes Do you understand why you are taking your current medications? Yes Are you taking your medications as prescribed? Yes Did patient provide teach back? Yes Pharmacy Bedside Delivery Status Interested Does the patient have a classification case manager assigned to them through their insurance? No Living Arrangement (Current/Prior to Hospitalization) Private residence Does the patient have history of HHC or SNF? No Assistive Device Not applicable Patient's goal for discharge return home with fiance Was patient reminded that goal for discharge is 11am? Yes Does the patient have transportation at discharge? Yes (daughter or finacee) Type of Residence Private residence Is PT/OT appropriate? Yes Is PT/OT ordered? Yes Is SW consult appropriate? Yes Is SW consult ordered? Yes Do you understand the benefits of MyChart? Yes Were you able to send link and activate MyChart? MyChart already active [facility]08-22-2024 Note8:30-SW sent DME referral to [facility]-await response. OTM will continue to follow.[facility]08-22-2024 Note Attestation signed by Lyssa Park MD at 11/01/2023 12:48 PM Care was discussed with my resident in Orthopedic surgery Dr Heather Trujillo MD Orthopaedic Surgery Orthopaedic Surgery Progress Note Date: 11/01/2023 Surgery: 10/31/2023 - ARTHROPLASTY, KNEE, TOTAL (L) SUBJECTIVE/24h events: NAEON. Patient doing well on NC today. Denies any weakness, numbness, tingling. She has not yet worked with therapy she has not yet ambulated. OBJECTIVE BP (!) 158/91 Pulse 93 Temp 36.8 ???C (98.2 ???F) Resp 22 Ht 1.676 m (5' 6 ) Wt (!) 171 kg (378 lb 1.4 oz) SpO2 100% BMI 61.03 kg/m??? General: A/O x3, resting comfortably in bed, cooperative MSK: Left LE -Dressing clean dry intact - Compartments soft / compressible - SILT in superficial peroneal, deep peroneal, sural, saph nerve dist - Motor function intact in tibial, deep peroneal, superficial peroneal dist - Brisk capillary refill Labs: Lab Results Component Value Date WBC 7.89 11/01/2023 HGB 10.7 (L) 11/01/2023 HCT 33.2 (L) 11/01/2023 MCV 93.5 11/01/2023 PLT 305 11/01/2023 Lab Results Component Value Date GLU 133 (H) 02/10/2021 CALCIUM 7.9 (L) 11/01/2023 NA 136 11/01/2023 K 3.6 11/01/2023 CO2 25 11/01/2023 CL 101 11/01/2023 BUN 9 11/01/2023 CREATININE 0.66 11/01/2023 Lab Results Component Value Date INR 1.02 10/22/2023 Imaging: @[id number]@ ASSESSMENT: Domingo Palam is a 48 y.o. female with left knee osteoarthritis. 1 Day Post-Op ARTHROPLASTY, KNEE, TOTAL (L) PLAN Weightbearing as tolerated LLE Abx: 24hrs Ancef DVT ppx: ASA 325 mg twice daily PT/OT Pain control: Multimodal Medicine consult for the setting postop. Patient is satting in the 90s to 100 on nasal cannula today. If patient can control pain and does well physical therapy will plan for discharge today or tomorrow. Heather White MD Orthopaedic Surgery, PGY-4 Ortho Pager [phone] 11/01/23 8:01 AM I am available via [employer] 6a-6p. May contact the on-call resident with any concerns via the Orthopaedic pager at any time.[facility]08-21-2024 NotePhysical Therapy Physical Therapy Evaluation Patient Name: Domingo Palma : 1975 Today's Date: 10/31/2023 Time Calculation Start Time 1452 Stop Time 1517 Time Calculation (min) 25 min PT Evaluation Time Entry PT Evaluation (Moderate) Time Entry 25 PT Discharge Recommendations: Home PT, With 24hr supervision Equipment Recommended: rolling walker, bedside commode (bariatric RW and BSC) Pt is a 48 year old female here for elective L TKA completed 10/31/23 d/t DJD, L knee pain and failed conservative treatment. Pt with hx of Lupus and R TKA. General Family/Caregiver Present: Yes (dtr) Subjective: We work great together. RN and pt agreeable to PT eval in PACU this date. Co-eval with OT. Pt supine in bed upon arrival and exit with needs in reach, RN aware. Pt pleasant and cooperative, though lethargic. PT Diagnosis: decreased functional mobility s/p L TKA on 10/31/23 Patient Active Problem List Diagnosis Bilateral knee pain Nausea & vomiting Weakness Asthma Essential hypertension Granulomatous lymphadenitis History of hypertension Migraine Class 3 severe obesity due to excess calories without serious comorbidity in adult ([facility]) Morbid obesity with body mass index of 50 or higher ([facility]) Right anterior knee pain 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 lupus erythematosus encephalitis (CMS/HCC) Lupus erythematosus Spondylosis without myelopathy or radiculopathy, 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 Primary osteoarthritis of left knee SOPHIE (obstructive sleep apnea) Status post total knee replacement using cement, left S/P total knee arthroplasty, left Past Medical History: Diagnosis Date Arthritis CPAP (continuous positive airway pressure) dependence Fibromyalgia, primary Hypertension Left knee pain Lupus (systemic lupus erythematosus) (CMS/HCC) Migraine Obesity BMI 54.55 Osteoarthritis Sleep apnea Past Surgical History: Procedure Laterality Date GASTRECTOMY SLEEVE JOINT REPLACEMENT Right 02/2021 KNEE Precautions Precautions LE Weight Bearing Status: Left, WBAT Medical Precautions: fall risk, IV, telemetry, TKA Post-Surgical Precautions: s/p L TKA on 10/31/23 Pain Pain Assessment Pain Assessment: 0-10 Pain Score: 10 - Worst possible pain Pain Type: Acute pain, Surgical pain Pain Location: Knee Pain Orientation: Left Cognition Cognition Overall Cognitive Status: Impaired Arousal/Alertness: Delayed responses to stimuli, Inconsistent responses to stimuli (Pt very lethargic from pain medications and s/p OR) Following Commands: Follows one step commands with increased time, Follows one step commands with repetition Safety Judgment: Decreased awareness of need for assistance Awareness of Errors: Decreased awareness of errors Deficits: Fully aware of deficits Attention Span: Difficulty attending to directions (d/t lethargy) Memory: Appears intact Problem Solving: Assistance required to identify errors made, Assistance required to implement solutions Communication: Intact Cognition Comments: Frequent cues to maintain arousal, pt closes eyes frequently and requires increased time to answer questions d/t lethargy. General Assessment General Assessment Hearing: appears WFL Skin Integrity: B carolyn wraps, surgical incision covered Edema: BLEs Home Living Home Living Type of Home: House Lives With: Significant other (boyfriend) Home Adaptive Equipment: None Home Living Comments: Pt reports 1/2 bath on main floor is broken and requesting a BSC to be able to stay on the main level. Home Layout: Two level, Bed/bath upstairs, Stairs to alternate level with rails Alternate Level Stairs-Rails: Right Alternate Level Stairs-Number of Steps: 18 Home Access: Stairs to enter with rails Entrance Stairs-Rails: Both Entrance Stairs-Number of Steps: 5 Bathroom Shower/Tub: Tub/shower unit Bathroom Toilet: Standard Bathroom Equipment: None Prior Level of Function Prior Function Level of Schleicher: Independent with ADLs and functional transfers, Independent with homemaking with ambulation Prior Functional Mobility: Independent without device Receives Help From: Family (pt reports boyfriend works during the day, dtrs are available to help during the day) ADL Assistance: Independent Homemaking Assistance: Independent Driving: Independent Vision Basic Assessment Vision - Basic Assessment Current Vision: No visual deficits Activity Tolerance Activity Tolerance Ambulation comments: did not assess d/t lethargy and difficulty maintaining arousal causing safety concerns Endurance: Stage I Stage I (METs 1.0-1.4) - Sittin-10 mins Activity Tolerance Comments: Pt with mild SOB noted and demonstrates extreme lethargy during eval. O2 sats dropping to 86% when returning to supine, RN aware and placing on supplemental O2. General (more content not included)...[facility] 10-31-2023 NoteOccupational Therapy Occupational Therapy Evaluation Patient Name: Domingo Palma : 1975 Today's Date: 10/31/2023 Time in: 1452 Time out: 1517 Surgery type: L TKA Surgery date: 10/31/23 General Subjective: 48yoF presents with DJD L knee, L knee pain. Failed conservative tx. Pt with h/o lupus, h/o R TKA. OT Diagnosis: Decreased independence in functional tasks s/p L TKA Family/Caregiver Present: Yes (Pts daughter present/) RN ok for pt to be seen at this time. Pt semi-fowlers upon arrival and agreeable to session. Pt completed functional bed mobility, assist with functional tasks. Unable to complete more of evaluation 2o pt lethargy. Pt was returned to semi-fowlers with call light and needs in reach. RN aware of pt performance. Patient Active Problem List Diagnosis Bilateral knee pain Nausea & vomiting Weakness Asthma Essential hypertension Granulomatous lymphadenitis History of hypertension Migraine Class 3 severe obesity due to excess calories without serious comorbidity in adult ([facility]) Morbid obesity with body mass index of 50 or higher ([facility]) Right anterior knee pain 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 lupus erythematosus encephalitis ([facility]) Lupus erythematosus Spondylosis without myelopathy or radiculopathy, 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 Primary osteoarthritis of left knee SOPHIE (obstructive sleep apnea) Status post total knee replacement using cement, left S/P total knee arthroplasty, left Past Medical History: Diagnosis Date Arthritis CPAP (continuous positive airway pressure) dependence Fibromyalgia, primary Hypertension Left knee pain Lupus (systemic lupus erythematosus) (CMS/HCC) Migraine Obesity BMI 54.55 Osteoarthritis Sleep apnea Past Surgical History: Procedure Laterality Date GASTRECTOMY SLEEVE JOINT REPLACEMENT Right 02/2021 KNEE Precautions Precautions LE Weight Bearing Status: Left, WBAT Medical Precautions: fall risk, IV, telemetry, TKA Pain Pain Assessment Pain Assessment: 0-10 Pain Score: 10 - Worst possible pain Pain Type: Acute pain, Surgical pain Pain Location: Knee Pain Orientation: Left Pain Interventions: Cold applied Cognition Cognition Arousal/Alertness: Delayed responses to stimuli, Inconsistent responses to stimuli (Pt very lethargic from pain medications and s/p OR.) Following Commands: Follows one step commands with repetition, Follows one step commands with increased time Safety Judgment: Decreased awareness of need for assistance Deficits: Fully aware of deficits Attention Span: Difficulty attending to directions (2o lethargy) Memory: Appears intact Problem Solving: Assistance required to implement solutions, Assistance required to generate solutions Communication: Intact Cognition Comments: Pt with difficulty staying awake during session, increased lethargy. General Assessment General Assessment Hearing: appears WFL Skin Integrity: All visible skin intact, more carolyn wraps, surgical incision covered. Home Living Home Living Type of Home: House Lives With: Significant other (daughter also available to assist.) Home Adaptive Equipment: None Home Layout: Two level, Bed/bath upstairs, Stairs to alternate level with rails Alternate Level Stairs-Rails: Right Alternate Level Stairs-Number of Steps: 18 Home Access: Stairs to enter with rails Entrance Stairs-Rails: Both Entrance Stairs-Number of Steps: 5 Bathroom Shower/Tub: Tub/shower unit Bathroom Toilet: Standard Bathroom Equipment: None Prior Level of Function Prior Function Level of Schleicher: Independent with ADLs and functional transfers, Independent with homemaking with ambulation Prior Functional Mobility: Independent without device Receives Help From: Family ADL Assistance: Independent Homemaking Assistance: Independent Driving: Independent Prior IADLs Static Sitting Balance Static Sitting Balance Static Sitting-Balance Support: Unilateral upper extremity supported, Feet supported Static Sitting-Level of Assistance: Contact guard Static Sitting-Comment/Number of Minutes: 5 Dynamic Sitting Balance Dynamic Sitting Balance Dynamic Sitting-Comments: DId not progress to dynamic sitting or standing tasks 2o lethargy. Safety concerns. Static Standing Balance Dynamic Standing Balance ADL ADL Bathing Assistance: Maximal LE Dressing Assistance: Total LE Dressing Deficit: Don/doff R sock, Don/doff L sock Toileting Assistance with Device: Maximal Bed Mobility Bed Mobility Bed Mobility: Yes Bed Mobility 1 Bed Mobility From 1: Supine Bed Mobility Type 1: To and from Bed Mobility to 1: Short sit Level of Assistance 1: Minimum assistance Bed Mobility Comments 1: assist with surgical LE into and out of bed. Transfers Transfers Transfer: No Objective General Assessments A (more content not included)...[facility]08-21-2024 NotePatient: Domingo Palma Procedure Summary Date: 10/31/23 Room / Location: [facility] OPERATING ROOM 02 / [facility] Operating Room Anesthesia Start: 823 Anesthesia Stop: 1102 Procedure: ARTHROPLASTY, KNEE, TOTAL (Left: Knee) Diagnosis: Primary osteoarthritis of left knee 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, unspecified whether serious comorbidity present (CMS/FORMERLY [facility]) Genu varum of left lower extremity Osteopenia, unspecified location (Primary osteoarthritis of left knee [M17.12]) Surgeons: Lyssa Park MD Responsible Provider: Zane Barfield MD Anesthesia Type: general ASA Status: 1 Anesthesia Type: general Vitals Value Taken Time BP 126/87 10/31/23 1437 Temp 36.4 ???C (97.5 ???F) 10/31/23 1430 Pulse 87 10/31/23 1438 Resp 21 10/31/23 1438 SpO2 93 % 10/31/23 1438 Vitals shown include unvalidated device data. Anesthesia Post Evaluation Patient location during evaluation: PACU Patient participation: complete - patient participated Level of consciousness: awake Pain management: adequate Airway patency: patent Cardiovascular status: acceptable Respiratory status: acceptable Hydration status: acceptable Patient is hemodynamically stable and is able to be discharged from PACU per anesthesia protocol. There were no known notable events for this encounter.[facility]08-21-2024 NoteOccupational Therapy Ot Check no charge Name: Domingo Palma Date of : 1975 Today's Date: 10/31/23 Pt is unable to be seen for therapy at this time secondary to not yet appropriate for therapy evaluation in PACU, pt in a lot of pain, difficulty staying awake per RN. Pt received second nerve block . Will check back and complete therapy session as appropriate. Check No Charge Time attempted: 1330 Simone OTR/L, ANSELMOMcCullough-[facility]08-21-2024 NoteAirway Date/Time: 10/31/2023 8:55 AM Urgency: elective Airway not difficult General Information and Staff Patient location during procedure: OR Anesthesiologist: Zane Barfield MD Resident/MICROFILM PROCESSOR/KIMI: KIMI Potts Performed: resident/MICROFILM PROCESSOR/KIMI Indications and Patient Condition Indications for airway management: anesthesia Spontaneous Ventilation: absent Sedation level: deep Preoxygenated: yes Patient position: sniffing Mask difficulty assessment: 1 - vent by mask Final Airway Details Final airway type: endotracheal airway Successful airway: ETT Cuffed: yes Successful intubation technique: direct laryngoscopy Endotracheal tube insertion site: oral Blade: Maldonado Blade size: #3 ETT size (mm): 7.0 Cormack-Lehane Classification: grade I - full view of glottis Placement verified by: chest auscultation and capnometry Cuff volume (mL): 9 Measured from: lips ETT to lips (cm): 22 Number of attempts at approach: 1 Number of other approaches attempted: 0[facility] 10-31-2023 NotePeripheral Block Patient location during procedure: pre-op Start time: 10/31/2023 8:08 AM End time: 10/31/2023 8:23 AM Reason for block: at surgeon's request and post-op pain management Staffing Performed: resident/MICROFILM PROCESSOR/KIMI and anesthesiologist Anesthesiologist: Zane Barfield MD Resident/MICROFILM PROCESSOR: Guero Luther MD Preanesthetic Checklist Completed: patient identified, IV checked, site marked, risks and benefits discussed, surgical consent, monitors and equipment checked, pre-op evaluation and timeout performed Peripheral Block Patient position: supine Prep: ChloraPrep Patient monitoring: continuous pulse ox Block type: adductor canal block Laterality: left Injection technique: single-shot Guidance: ultrasound guided Needle Needle gauge: 21 G Needle length: 4 in Needle localization: ultrasound guidance Medications Administered bupivacaine HCl (Marcaine) 0.5 % (5 mg/mL) injection - injection 125 mg - 10/31/2023 8:08:00 AM fentaNYL (SUBLIMAZE) IV - intravenous 50 mcg - 10/31/2023 8:08:00 AM midazolam (VERSED) IV - intravenous 2 mg - 10/31/2023 8:08:00 AM Assessment Injection assessment: negative aspiration for heme, no paresthesia on injection and incremental injection Heart rate change: no Slow fractionated injection: yesMcCullough-[facility]de [facility]08-21-2024 NotePatient: Domingo Palma Procedure Information Date/Time: 10/31/23829 Procedure: ARTHROPLASTY, KNEE, TOTAL (Left: Knee) - LILIANE NOTIFIED 10/21 Location: [facility] OPERATING ROOM 02 / [facility] Operating Room Surgeons: Lyssa Park MD Relevant Problems Anesthesia Denies anes issues; SOPHIE but doesn't use mask (+) SOPHIE (obstructive sleep apnea) Cardio Echo--EF 50-55%, RVSP 25; stress negative (+) Essential hypertension (+) Migraine (+) Systemic lupus erythematosus encephalitis (CMS/HCC) GI On meds for GERD /Renal Cr 0.65 Neuro/Psych (+) Migraine (-) CVA (cerebral vascular accident) (CMS/HCC) (-) Seizures (CMS/HCC) Pulmonary (+) Asthma Other (+) Granulomatous lymphadenitis Clinical information reviewed: Tobacco Allergies Meds Med Hx Surg Hx OB Status Fam Hx Soc Hx Physical Exam Airway Mallampati: III TM distance: >3 FB Neck ROM: full Cardiovascular - normal exam Dental Comments: Some missing teeth Pulmonary - normal exam Abdominal (+) obese Anesthesia Plan ASA 1 general (Discussed pre-op left adductor canal block--bleeding, infection, nerve damage discussed. Discussed GA/OETT for procedure with pt. Risks including bleeding, infection, nerve damage discussed. Pt agrees to all.) The patient is not a current smoker. Education provided regarding risk of obstructive sleep apnea. intravenous induction Postoperative administration of opioids is intended. Trial extubation is planned. Anesthetic plan and risks discussed with patient. Use of blood products discussed with patient who consented to blood products. Plan discussed with resident and CAA. Additional Equipment RequestsMcCullough-[facility]08-12-2024 Note Patient ID: Domingo Palma is a 48 y.o. female. Subjective: Patient ID: Navdeep Palma is a 48 y.o. female. 1975 Chief Complaint: Chronic left knee pain HPI: Navdeep Palma is a 48 y.o. female who returns to see me today for preoperative visit. Patient continues to complain of severe pain in her left knee joint and wants to proceed with her left knee replacement surgery. She has been struggling to lose weight and has tried nonsurgical treatment for her pain as mentioned below. She states she has been cleared for her surgery. She continues to weigh about 338 pounds. Patient was seen in the past for left knee pain which she says that is been going on my whole life with no predating trauma or injury. Patient describes her pain as a 10 out of 10. Patient is currently weightbearing as tolerated. Current treatments are [id number] ibuprofen and Tylenol, ice, rest, elevation, bracing, physical therapy that ended 1 year ago. Patient endorses numbness and tingling in the left lower extremity intermittently. Known to me from her previous right knee total knee arthroplasty that was done almost 2 years ago. Patient denies any new pain with the right knee joint at this point in time. She believes that the right knee has been tremendously improved and is happy with the outcome. Social History Occupational History Not on file Tobacco Use Smoking status: Never Passive exposure: Never Smokeless tobacco: Never Substance and Sexual Activity Alcohol use: Never Drug use: Never Sexual activity: Yes Partners: Male control/protection: Other Past Medical History: Diagnosis Date Arthritis Hypertension There were no vitals filed for this visit. Review of systems: Constitutional: No fever or night sweats Musculoskeletal: left knee pain Neurological: Negative for tingling or numbness Physical Exam: General: No acute distress Constitutional: Grossly well-appearing Mental status: Alert and oriented Respiratory: Non-labored breathing Skin: No erythema, ecchymosis, or abrasions left knee exam: Inspection-genu varum deformity noted, patient walks with lateral thrust, has severe Trendelenburg lurch with antalgia. Left knee joint has scars from previous arthroscopy. Effusion: none Palpation- Patellar tendon: not tender Quad tendon: tender Patella: Stable, No crepitus ROM: 10-100 degrees Meniscal exam- Medial joint line: tender Lateral joint line: tender Stability- ACL: Jam negative Collateral Ligaments: Stable to varus and valgus stress at 0 and 30 degrees PCL: Posterior drawer negative Strength Quadriceps: 5/5 Vascular: Brisk capillary refill Neuro: Sensation intact to light touch distally Imaging: X-rays of the left knee joint 3 views were taken today in the office was seen by myself and interpreted independently which show the patient has severe degenerative arthritis of her left knee joint along with subchondral sclerosis and subchondral cyst formation noted. Varus deformity noted along with severe proximal pole patella enthesopathy osteophytes noted. Patient has genu varum deformity along with triple deformity of the knee joint with posterolateral subluxation. Where: [facility] Date: 07/23/2023 x-ray left knee(s) : Complete loss of left tibiofemoral joint space Read and interpreted by Dr. Park Diagnosis Plan 1. Left knee pain, unspecified chronicity XR knee 3 views left Class III obesity with a BMI of 55 kg/m??? S/p right total knee arthroplasty. Plan: Patient was explained the nature of the problem and treatment options. Patient has severe degenerative arthritis of her left knee joint. Since she has had right knee arthroplasty which has been doing well she would like to proceed with her left knee arthroplasty at this has been causing disability and is unable to do her activities of daily living and has not been able to lose weight. -Discussed clinical and imaging findings with the patient. Have given her options for nonsurgical treatment again due to her young age and limited outcome due to her class III obesity. -Discussed risk and benefits of left primary cemented posterior stabilized total knee arthroplasty with patient. Patient understood and elected to proceed with left primary cemented total knee arthroplasty. Risk and benefits of left primary cemented total knee arthroplasty using [place] implants were discussed at length with the patient including complications which are but not restricted to bleeding, infection, neurologic injury, residual pain and stiffness, anesthetic risk, different thrombosis, pulmonary embolism, myocardial infarction, stroke, mortality less than 1%, dislocations, limb length inequality, recurrent infections requiring staged revision knee arthroplasty, need for multiple procedures, bone loss requiring fusion and/or above-knee amputation were all discussed at length with the patient (more content not included)...[place] [id number] NoteOrthopedic Surgery Subjective Chief complaint: Chief Complaint Patient presents with Left Knee - Pre-op Visit, Pain 10/22/23 Navdeep Palma is a 48 y.o. year old female presenting for evaluation of preoperative visit for left knee pain. Patient is known to have degenerative's of the left knee joint which has failed nonsurgical treatment. Previous Treatments: She has tried cortisone injections, oral NSAIDs as well as weight loss program which has failed. Patient has also tried physical therapy. Patient History Past Surgical History: Procedure Laterality Date GASTRECTOMY SLEEVE JOINT REPLACEMENT Right 02/2021 KNEE Past Medical History: Diagnosis Date Arthritis CPAP (continuous positive airway pressure) dependence Fibromyalgia, primary Hypertension Left knee pain Lupus (systemic lupus erythematosus) ([facility]) Migraine Obesity BMI 54.55 Osteoarthritis Sleep apnea Objective General: Body mass index is 54.55 kg/m???. No acute distress, comfortable Respiratory: Unlabored breathing with normal rate, no cough Cardiovascular: Warm well perfused extremities Psych: Appropriate mood behavior Please see adjoining note. This is a duplicate note. Imaging: Radiographs of left knee joint 3 views were seen by myself and interpreted independently which demonstrate severe recommend to degenerative arthritis of the left knee joint along with varus deformity and osteophytosis as well as subchondral sclerosis and subchondral cyst formation noted. Triple deformity of the left knee joint noted with posterior lateral sublux of the tibia. Assessment/Plan Navdeep Palma is a 48 y.o. year old female with Genu varum, acquired, left Left knee pain, unspecified chronicity Primary osteoarthritis of left knee Patient's diagnosis significantly interferes with their ability to safely complete ADLs due to weakness and impaired mobility. Patient is safely able to use a rolling walker, raised toilet seat/shower chair. The use of this DME would greatly benefit the patient's ability to complete ADLs. Patient will need a rolling walker and shower chair since the patient has class III obesity with central weakness in the pelvic girdle leading to limited ability to ambulate and support herself and will need rolling walker postoperatively for her knee rehabilitation. She will need a shower chair as she has difficulty in standing for prolonged periods of time. Patient will need bedside commode since she will need help to get to the toilet on most occasions but bedside commode will help her prevent long distance walking to prevent falls following surgery. Patient will need to restart it since she is unable to stand up due to her pelvic girdle weakness from sitting too low. Her daily ADLs are limited due to the weight as well as her degenerative arthritis of both her knee joints with severe deformity and varus angulation with weakness in the hip girdle muscles. She will need a seat on the rollator since she tends to tire out easily and will need to sit to prevent falls. As the knee arthroplasty is meant to reduce her pain it is also meant to enable her to walk for longer distances with time and in the meanwhile during her rehab patient will need all these additional help for her daily rehabilitation and ADLs. Hope this helps clarify her situation thank you Patient has been planned for total knee arthroplasty left side. By using the attestations below, the signing clinician agrees that I have read and verify that the documentation has been personally reviewed by me and ensure that the documentation accurately reflects the encounter. GC: I personally saw this patient on the day of the encounter, performed the humphries portion(s) of the service and participated in the management and confirm the medical student's documentation. Please note there may be an additional personal documentation from me. Dr. Lyssa Park MD MRCSEd Mowing Machine Operator orthopedic surgery Adult Reconstruction and Trauma [facility] 10-15-2023 [facility] not in network with [employer] [place] [facility]. [facility]erral sent to [facility]08-05-2024 NoteI spoke with the patient for pre-operative education and discharge planning prior to her joint replacement surgery. The patient would like to discharge to home following her release from the hospital. She has 5 steps to get into her home and 18 to get to her full bath and bedroom. She will try to stay on one floor. She will have support at home. She will be given scripts for a shower chair, raised toilet seat and rolling walker. She would like [facility] but does not have a preference. I will send a referral to [facility]05-13-2024 NoteSubjective: Patient ID: Navdeep Palma is a 47 y.o. female. 1975 Chief Complaint: Chronic left knee pain HPI: Navdeep Palma is a 47 y.o. female who complains of left knee pain that is been going on my whole life with no predating trauma or injury. Patient describes her pain as a 10 out of 10. Patient is currently weightbearing as tolerated. Current treatments are oypr-nsk-hcznhue ibuprofen and Tylenol, ice, rest, elevation, bracing, physical therapy that ended 1 year ago. Patient endorses numbness and tingling in the left lower extremity intermittently. Known to me from her previous right knee total knee arthroplasty that was done almost 2 years ago. Patient denies any new pain with the right knee joint at this point in time. She believes that the right knee has been tremendously improved and is happy with the outcome. Social History Occupational History Not on file Tobacco Use Smoking status: Never Passive exposure: Never Smokeless tobacco: Never Substance and Sexual Activity Alcohol use: Never Drug use: Never Sexual activity: Defer Past Medical History: Diagnosis Date Hypertension There were no vitals filed for this visit. Review of systems: Constitutional: No fever or night sweats Musculoskeletal: left knee pain Neurological: Negative for tingling or numbness Physical Exam: General: No acute distress Constitutional: Grossly well-appearing Mental status: Alert and oriented Respiratory: Non-labored breathing Skin: No erythema, ecchymosis, or abrasions left knee exam: Inspection-genu varum deformity noted, patient walks with lateral thrust, has severe Trendelenburg lurch with antalgia. Left knee joint has scars from previous arthroscopy. Effusion: none Palpation- Patellar tendon: not tender Quad tendon: tender Patella: Stable, No crepitus ROM: 10-100 degrees Meniscal exam- Medial joint line: tender Lateral joint line: tender Stability- ACL: Jam negative Collateral Ligaments: Stable to varus and valgus stress at 0 and 30 degrees PCL: Posterior drawer negative Strength Quadriceps: 5/5 Vascular: Brisk capillary refill Neuro: Sensation intact to light touch distally Imaging: X-rays of the left knee joint 3 views were taken today in the office was seen by myself and interpreted independently which show the patient has severe degenerative arthritis of her left knee joint along with subchondral sclerosis and subchondral cyst formation noted. Varus deformity noted along with severe proximal pole patella enthesopathy osteophytes noted. Where: [facility] Date: 07/23/2023 x-ray left knee(s) : Complete loss of left tibiofemoral joint space Read and interpreted by Dr. Park Diagnosis Plan 1. Left knee pain, unspecified chronicity XR knee 4+ views left Class III obesity with a BMI of 55 kg/m??? S/p right total knee arthroplasty. Plan: Patient was explained the nature of the problem and treatment options. Patient has severe degenerative arthritis of her left knee joint. Since she has had right knee arthroplasty which has been doing well she would like to proceed with her left knee arthroplasty at this has been causing disability and is unable to do her activities of daily living and has not been able to lose weight. -Discussed clinical and imaging findings with the patient. -Discussed risk and benefits of left primary cemented posterior stabilized total knee arthroplasty with patient. Patient understood and elected to proceed with total knee arthroplasty. Risk and benefits of left primary cemented total knee arthroplasty using [place] implants were discussed at length with the patient including complications which are but not restricted to bleeding, infection, neurologic injury, residual pain and stiffness, anesthetic risk, different thrombosis, pulmonary embolism, myocardial infarction, stroke, mortality less than 1%, dislocations, limb length inequality, recurrent infections requiring staged revision knee arthroplasty, need for multiple procedures, bone loss requiring fusion and/or above-knee amputation were all discussed at length with the patient. Despite all these risks patient wishes to proceed with surgery. She will obtain her medical clearance and we will regroup after the same. All questions answered patient is happy with the plan. Patient has signed her consent form today. Was given to her for her clearance. Have explained to her that an ideal setting she will need to have a BMI of at least 40 to have optimal outcome. Due to her high BMI she has high risk for failure and need for revisions in future. -Medical clearance is needed from PCP -Follow-up to schedule surgery once medical clearance is obtained Tiffanie Rdz [facility] 07/23/23 By using the attestations below, the signing clinician agrees that I have read and verify that the documentation has been personally reviewed by me an (more content not included)...[facility]03-07-2024 Miscellaneous Notes* Telephone Encounter - Xochitl Vinipercy - 05/17/2023 11:00 AM EST Patient requesting a 90 day supply of Omeprazole. [facility] Tele[facility] encounter Note* Telephone Encounter - Xochitl Muir - 05/17/2023 11:00 AM EST Patient requesting a 90 [address] supply [facility] [address] [facility]02-19-20[facility] History of Present illness Narrative* Darlin Wilkerson MD - 04/30/2023 10:30 AM EST Images from the original note were not included. [id number] [id number] Date of Service: 04/30/2023 Video Visit via Real-time Synchronous Audiovisual Provider Location: [facility] [address] [facility] [id number] Patient Location: Patient's home Patient Location Supervisor [employer]: None Video Visit Consent Statement: I discussed risks, benefits, and alternatives of a real-time synchronous audiovisual consultation with the patient (and any accompanying persons) including the risks that the patient's personal health details and medical records will be discussed over real-time, synchronous, interactive video/audio/telecommunication technology, the visit will not be recorded withoutthe express consent of both the provider and the patient, and that there are some limitations compared to [id number] evaluations. We elected to proceed. Chief Complaint: Pain SUBJECTIVE: Navdeep Palma is a 47 y.o. female who came to rheumatology clinic for follow up evaluation of having history of lupus. The problem has been present for several years. Patient was seeing Dr. Downs until 2020 when she had to move to [place] but patient is back to the city [...] with ADLs . Rheumatology Family Hx: LUPUS Relationto patient: Father's sister. Previous Meds tried: Plaquenil: [...] and all orders for this visit: Lupus ([facility]) - lupus was diagnosed several years ago [...] she can get the infusion I prefer togo with S[facility]. - [facility] - [place], [place] Lumbosacral spondylosis without myelopathy - she is been morbidly obese -she should try more physical therapy and losing weight Class 3 severe obesity due to excess calories without serious comorbidity with body mass index (BMI) of 50.0 to 59.9 in adult ([facility]) - she had gastric sleeve surgery before and lost about 100 lb but unfortunately gained most of thatback being on a steroid in the past. Primary osteoarthritis of left knee - she is morbidly obese and makes the knee arthritis worse - injections can be tried Medication monitoring encounter We have discussed with potential adverse effects with use of biologics including but not limited tosuppression of immune system making pt more prone to infections, to hold the medication if he/she has any signs of any infection and to restart only after infection has cleared, reactivation of infections particularly TB and hepatitis B, C, risk of malignancy, risk of demyelinating disorders and tostop medication immediately if he/she notes any weakness [...] or corrected. Thank you for your understanding. [facility] Dr. Darlin Wilkerson M.D. [address] [place] [address] [address] [place] [address] Office: [phone] 04/30/2023 documented in this encounterOhioHealth O'Bleness HospitalClothia Brighton [id number] History of Present illness Narrative* Bong Phelan, GRINDING OPERATOR-WALL TO WALL CARPET INSTALLER - 04/06/2023 10:15 AM EST Images from the original note were not included. [facility] [address] [place] [phone] Name: Navdeep Palma : 1975 CHIEF COMPLAINT No chief complaint on file. HISTORY OF PRESENT ILLNESS Navdeep Palma is a 47 y.o. old female who is an established patient seen by [facility] Video visit with a chief complaint of numbness in hands and feet. This call is considered an audio visual visit, which is to help assess your current healthcare needs and to determine the appropriate care you may require. This visit may be a billable service through your insurance company. Do you consent to movingforward with this telephone visit? Yes . Patient is at home. Provider is in the office. Patient has concerns of headaches. Increased frequency. She has taken sumatriptan injections. She hasn't needed one since this past February. Otherwise she takes Tylenol. Will provide patient with Qulipta samples at the front [facility]. She has left sided pain to [...] to 2000 daily. ALLERGIES Allergies Allergen Reactions [place] [Hydrocodone-Acetaminophen] Itching and Headache Cyclobenzaprine Headache and [...] nebulizer solution Inhale 3 mL (2.5 mg total)by nebulization as needed for wheezing. amLODIPine (NORVASC) [...] by mouth 3 (three) times a day asneeded for itching. 270 capsule 0 ibuprofen (MOTRIN) [...] by mouth in the morning and 1 tablet(500 mg total) in the evening. Take with meals. 60 tablet 0 orphenadrine (NORFLEX) 100 mg 12 hr tablet Take 1 tablet (100 mg total) by mouth 2 (two) times a day as needed for muscle spasms. 10 tablet 0 oxyCODONE-acetaminophen (PERCOCET) 7.5-325 mg per tablet Take 1 tablet by mouth every 6 (six) hoursas needed for pain. Max Daily Amount: 4 tablets 20 tablet 0 sodium chloride (OCEAN NASAL) 0.65 % nasal spray Administer 1 spray into each nostril as needed forrhinitis. 15 mL 12 SUMAtriptan succinate 6 mg/0.5 mL needle-free injector Inject 0.5 mL (6 mg total) under the skin asneeded (migraine headache). tirzepatide, weight loss, 2.5 mg/0.5 [...] Low back pain Lupus (systemic lupus erythematosus) ([facility]) Migraine Murmur, cardiac Obesity Osteoarthritis Osteoarthritis Pneumonia Sleep apnea Tooth loose Upper back pain Past Surgical History: Procedure Laterality Date SECTION three ECTOPIC SURGERY two GASTRECTOMY sleeve HYSTERECTOMY 2008 COMPLETE INJECTION BLOCK NERVE KNEE Left Genicular Left 08/25/2022 Performed by Albert Jones MD at [facility] INJECTION BLOCK NERVE KNEE right genicular Right 05/16/2021 Performed by Albert Jones MD at [facility] JOINT REPLACEMENT Right 02/09/2021 LYMPH NODE DISSECTION bilateral axillae x2 OOPHORECTOMY Bilateral 2008 RADIO FREQUENCY ABLATION L 4/5,5/S1 Left 08/04/2016 Performed by Albert Jones MD at [facility] RADIO FREQUENCY ABLATION L4/5,5/S1 Right 08/21/2016 Performed by Albert Jones MD at [facility] TOTAL KNEE Right 2020 TUBAL LIGATION [...] patient today using the Telehealth/video software in [employer]. This was performed en lieu of a vfuz-hc-[id number] office visit due to the current COVID-19 pandemic. JILL Bower APRN-CNP 04/10/232251 documented in this encounterSt. [facility] Hospital12-29-2023 Miscellaneous Notes* Telephone Encounter - Xochitl Muir - 03/09/2023 9:14 AM EST Pharmacy requesting clarification on contradictory sig. Had stated take 2 500 tablets, but also take one tablet with breakfast. Updated to only say take 2 tablets due to increasing patient's dose to 1,000 mg per day. documented in this encounterOhioHealth O'Bleness HospitalClothia Brighton [id number] Telephone encounter Note* Telephone Encounter - Xochitl Muir - 03/09/2023 9:14 AM EST Pharmacy requesting clarification on contradictory sig. Had stated take 2 500 tablets, but also take one tablet with breakfast. Updated to only say take 2 tablets due to increasing patient's dose to 1,[address] [facility] [id number] Evaluation note* Encounter Date Diagnosis Assessment Notes Treatment Notes Treatment Clinical Notes Jan, Contact with and (suspected) exposure [...] appointment with cardiology for blood pressure medications [facility] Other Evaluation noteNo assessment information [facility] Work Phone: Evaluation noteNo InformationNortReading Hospital XOG Other Evaluation note* Diagnosis Pre-diabetes- Primary Other abnormal glucose [facility]* Diagnosis Other forms of systemic lupus erythematosus, unspecified organ involvement status ([facility])- Primary Pre-diabetes Other abnormal glucose [facility] in this encounter [facility]* Diagnosis Pre-diabetes Other abnormal glucose documented in this encounter [facility] SystemEvaluation note* Diagnosis Gastroesophageal reflux disease without esophagitis- Primary Esophageal reflux Urinary frequency Chest discomfort Other chest pain Pre-diabetes Other abnormal glucose Chest discomfort Other chest pain documented in this [facility]* Diagnosis Acute cystitis without hematuria- Primary documented in this [facility]* Diagnosis Lupus ([facility])- Primary Systemic lupus erythematosus Lumbosacral spondylosis without myelopathy Class 3 severe obesity due to excess calories without serious comorbidity with body mass index (BMI) of 50.0 to 59.9 in adult ([facility]) Primary osteoarthritis of left knee Medication monitoring encounter Encounter for therapeutic drug monitoring documented in this encounter [facility] SystemEvaluation note* Diagnosis Acute cystitis without hematuria- Primary [facility] this [facility]* Diagnosis Hepatic steatosis- Primary Other chronic nonalcoholic liver disease documented in this encounter [facility] SystemEvaluation note* Diagnosis Epigastric pain- Primary Abdominal pain, epigastric Hepatic steatosis Other chronic nonalcoholic liver disease Other forms of systemic lupus erythematosus, unspecified organ involvement status ([facility]) documented in this encounter [facility]* Diagnosis Pre-diabetes Other abnormal glucose documented in this encounter [facility]* Diagnosis Gastroesophageal reflux disease without esophagitis Esophageal reflux documented in this encounter [facility]* Diagnosis Chronic pain of left knee- Primary Arthritis of left knee documented in this encounter [facility]* Diagnosis Gastroesophageal reflux disease without esophagitis Esophageal reflux documented in this encounter [facility]* Diagnosis Pre-diabetes- Primary Other abnormal glucose documented in this encounter [facility]* Diagnosis Other forms of systemic lupus erythematosus, unspecified organ involvement status ([facility]) documented in this encounter [facility]* Diagnosis Onset Date Resolution Status Hx of total knee arthroplasty acute Hypertension acute Impaired mobility and activities of daily living acute Knee osteoarthritis acute Morbid obesity with BMI of 50.0-59.9, adult acute Prediabetes acute SLE (systemic lupus erythematosus related syndrome) acute [facility] Work Phone: Evaluation note* Diagnosis Primary osteoarthritis of left knee- Primary documented in this encounter [facility]* Diagnosis Gastroesophageal reflux disease without esophagitis Esophageal reflux documented in this encounter [facility]* Diagnosis Primary osteoarthritis of left knee documented in this encounter [facility]* Diagnosis Other acute pulmonary embolism, unspecified whether acute cor pulmonale present ([facility] Primary documented in this encounter [facility]* Diagnosis Acute pulmonary embolism with acute cor pulmonale, unspecified pulmonary embolism type ([facility] Primary documented in this encounter [facility]* Diagnosis Mild intermittent asthma without complication- Primary Other acute pulmonary embolism, unspecified whether acute cor pulmonale present ([facility]) Right lower lobe lung mass Pulmonary hypertension ([facility]) Other chronic pulmonary heart diseases documented in this encounter [facility]* Diagnosis Essential hypertension- Primary Unspecified essential hypertension documented in this encounter [facility]* Diagnosis Other migraine without status migrainosus, not intractable- Primary Muscle spasm Spasm of muscle Primary osteoarthritis of left knee documented in this encounter [facility]* Diagnosis Encounter for weight loss counseling documented in this encounter [facility] Narrative - Reported* Type Description Date Medical History asthma Medical History Hypertension Medical History neuropathy Medical History migraine headache Surgical History knee replacement Right 2020 Surgical History Gastric Sleeve 2018 Hospitalization History see above Carena Other InstructionsNot on filedocumented in this encounter [facility] SystemInstructionsNot on filedocumented in this encounter [facility] SystemInstructionsNot on filedocumented in this encounter [facility] [...] on filedocumented in this encounter [facility] SystemReason for referral (narrative)* Consultation (Routine) - Pending Review Specialty Diagnoses / Procedures Referred By Chris benton Referred To Contact Orthopedic Surgery Diagnoses Chronic pain of left knee Arthritis of left knee Bong Phelan APRN-CNP [address], [facility] [address] [place] [address] Meño Sy MD [address] [place] [address] Referral ID Status Reason Start Date Expiration Date Visits Requested Visits Authorized [id number] Pending Review Specialty Services Required 05/24/2023 05/23/2024 1 1 [facility] Summary Purpose Family History No Family History Records Found Relationship Condition Age at Onset Recorded Date/T feli brother Disorder of lung Unknown brother Neurological deficit present Unknown Not Specified Malignant neoplasm of pancreas Unknown Malignant neoplasm of lung Unknown Relationship Condition Age at Onset Recorded Date/T feli brother Disorder of lung Unknown brother Neurological deficit present Unknown mother Malignant neoplasm of pancreas Unknown Malignant neoplasm of lung Unknown mother Unknown Malignant neoplasm Unknown Advance Directives No Advanced Directives Records Found Date Activated Date Inactivated Comments 12/13/2023 7:55 AM 12/14/2023 8:30 PM Date Activated Date Inactivated Comments 12/12/2023 9:56 PM 12/13/2023 7:03 AM Date Activated Date Inactivated Comments 12/07/2023 8:21 AM 12/09/2023 8:48 PM Advance Directive Response Recorded Date/ Time Advance Directives No November 06, 2023 1:35pm Date Activated Date Inactivated Comments 12/13/2023 7:55 AM Date Activated Date Inactivated Comments 12/13/2023 7:55 AM 12/14/2023 8:30 PM Date Activated Date Inactivated Comments 12/12/2023 9:56 PM 12/13/2023 7:03 AM Date Activated Date Inactivated Comments 12/07/2023 8:21 AM 12/09/2023 8:48 PM Reason for Referral Specialty Diagnoses / Procedures Referred By Contac t Referred To Contact Radiology Diagnoses Epigastric pain Hepatic steatosis Procedures MRCP with MRI abdomen with and without contrast Bong Phelan APRN-CNP [address], [address] [address] Referral ID Status Reason Start Date Expiration Date V isits Requested Visits Authorized [id number] Authorized 05/04/2023 05/03/2024 1 1 Specialty Diagnoses / Procedures Referred By Contac t Referred To Contact Radiology Diagnoses Acute cystitis without hematuria Procedures CT abdomen and pelvis without contrast Bong Phelan APRN-WALL TO WALL CARPET INSTALLER [address], [facility] [address] [place] [address] Referral ID Status Reason Start Date Expiration Date V isits Requested Visits Authorized [id number] Authorized 05/01/2023 04/30/2024 1 1 Chief Complaint and Reason for Visit Chief Complaint left knee degenrativ e arthritis s/p tka left knee degenrative arthritis s/p tka left knee degenrative arthritis s/p tka Reason for Visit Hx of total knee art hroplasty Hypertension Impaired mobility and activities of daily living Knee osteoarthritis Morbid obesity with BMI of 50.0-59.9, adult Prediabetes SLE (systemic lupus erythematosus related syndrome) Additional Source Comments INFORMATION SOURCE (unrecogn ized section and content) DATE CREATED AUTHOR 03/31/2018 [facility] DATE CREATED AUTHOR AUTHOR'S ORGANIZ ATION 04/11/2021 [facility] DATE CREATED AUTHOR AUTHOR'S ORGANIZ ATION 11/12/2022 [facility] DATE CREATED AUTHOR AUTHOR'S ORGANIZ ATION 11/27/2023 [facility] DATE CREATED AUTHOR AUTHOR'S ORGANIZ ATION 01/12/2024 [facility] DATE CREATED AUTHOR AUTHOR'S ORGANIZ ATION 01/29/2024 [facility] DATE CREATED AUTHOR AUTHOR'S ORGANIZ ATION 02/02/2024 [facility] DATE CREATED AUTHOR AUTHOR'S ORGANIZ ATION 02/06/2024 [facility] DATE CREATED AUTHOR AUTHOR'S ORGANIZ ATION 02/07/2024 [facility] Goals (unrecognized section and content) Goals may [...] Reason Onset Date Comments Med Refill 06/11/2023 Reason Onset Date Comments medication order 12/14/2023 Reason Onset Date Comments Transition Of Care 12/10/2023 Reason Comments Hospital Follow-up Breathing Problem Pt has shortness for breath. Knee Pain Pt has knee replacem ent surgery in October 30, after surgery affect severe knee pain. Back Pain Reason Comments Follow-up Blood Clot(s) Post hospital discha rge visit Reason Comments Hospital Follow-up Pulmonary EmbolismCT A: 12/06/2023 & 12/12/2023FT: ordered, not completed Specialty Diagnoses / Procedures Referred By Chris benton Referred To Contact Pulmonary Medicine Diagnoses Other acute pulmonary embolism, unspecified whether acute cor pulmonale present ([facility]) Bong Phelan APRN-CNP [address], [address] [address] Phone: tel: fax: Neena Del Castillo, Count includes the [facility] [place] [address] Phone: tel: fax: Referral ID Status Reason Start Date Expiration Date Visits Requested Visits Authorized [id number] Pending Review Specialty Services Required 12/19/2023 12/18/2024 1 1 Reason Comments Follow-up 3 mo f/u -labs-IP PULMONARY EMBOLISM Reason Comments discuss weight loss Care Teams (unrecognized sec tion and content) Medical Doctor Md Relationship Specialty Start Date End Date Bong Phelan APRN-CNP [address], [address] [place] [address] PCP - General Family Medicine 05/05/22 Medical Doctor Md Relationship Specialty Start Date End Date Bong Phelan APRN-CNP [address], [address] [place] [address] PCP - General Family Medicine 05/05/22 Medical Doctor Md Relationship Specialty Start Date End Date Bong Phelan APRN-WALL TO WALL CARPET INSTALLER [address], [facility] [address] [place] [address] PCP - General Family Medicine 05/05/22 Medical Doctor Md Relationship Specialty Start Date End Date ZhaneBong leary APRN-WALL TO WALL CARPET INSTALLER [address], [place] [phone] PCP - General Family Medicine 05/05/22 Medical Doctor Md Relationship Specialty Start Date End Date Bong Phelan APRN-WALL TO WALL CARPET INSTALLER [address], [place] [address] PCP - General Family Medicine 05/05/22 Medical Doctor Md Relationship Specialty Start Date End Date Bong Phelan APRNLisaWALL TO WALL CARPET INSTALLER [address], [address] PCP - General Family Medicine 05/05/22 Medical Doctor Md Relationship Specialty Start Date End Date OakfieldBong leary APRNLisaWALL TO WALL CARPET INSTALLER [address], [place] [phone] PCP - General Family Medicine 05/05/22 Medical Doctor Md Relationship Specialty Start Date End Date Bong Phelan APRN-WALL TO WALL CARPET INSTALLER [address], [address] [address] PCP - General [facility] Medicine 05/05/22 Medical Doctor Md Relationship Specialty Start Date End Date OakfieldBong leary YULISA-WALL TO WALL CARPET INSTALLER [address], [address] [place] [address] PCP - [facility] Medicine 05/05/22 Medical Doctor Md Relationship Specialty Start Date End Date ZhaneBong YULISA-WALL TO WALL CARPET INSTALLER [address], [address] [place] [address] PCP - [facility] 05/05/22 Medical Doctor Md Relationship Specialty Start Date End Date OakfieldErica learyYULISA smallwood-WALL TO WALL CARPET INSTALLER [address], [facility] [address] [place] [address] PCP - [facility] 05/05/22 Team Status: Active Member Role Status Dates Jordyn Barrera APRN SILICA DRY PRESS HELPER-C Primary Care Provider Active Team Status: Inactive Member Role Status Dates Jordyn Barrera APRN SILICA DRY PRESS HELPER-C Primary Care Provider Active Start: November 06, 2023 End: November 16, 2023 Jonny Bentley MD Admit Provid er, Attending Provider Active Start: November 06, 2023 End: November 16, 2023 Team Status: Active Member Role Status Dates Jordyn Barrera APRN SILICA DRY PRESS HELPER-C Primary Care Provider Active Start: November 07, 2023 Jonny Bentley MD Admit Provid er, Other Provider Active Start: November 07, 2023 Mone Brennan APRN Attending Provider Active Start: November 07, 2023 Team Status: Active Member Role Status Dates Jordyn Barrera APRN SILICA DRY PRESS HELPER-C Primary Care Provider Active Start: November 14, 2023 Jonny Bentley MD Admit Provid er, Attending Provider, Other Provider Active Start: November 14, 2023 Medical Doctor Md Relationship Specialty Start Date End Date ZhaneBong leary YULISA-WALL TO WALL CARPET INSTALLER [address], [facility] [address] [place] [phone] PCP - General Family Medicine 05/05/22 Medical Doctor Md Relationship Specialty Start Date End Date ZhaneBong APRN-WALL TO WALL CARPET INSTALLER [address], [facility] [address] [place] [address] PCP - General [facility] Medicine 05/05/22 Medical Doctor Md Relationship Specialty Start Date End Date [place], Bong YULISA-WALL TO WALL CARPET INSTALLER [address], [facility] [address] [place] [address] PCP - General [facility] Medicine 05/05/22 Medical Doctor Md Relationship Specialty Start Date End Date Zhane, Bong YULISA-WALL TO WALL CARPET INSTALLER [address], [facility] [address] [place] [address] PCP - General [facility] Medicine 05/05/22 Medical Doctor Md Relationship Specialty Start Date End Date ZhaneBong APRN-WALL TO WALL CARPET INSTALLER [address], [place] [address] PCP - General [facility] Medicine 05/05/22 Medical Doctor Md Relationship Specialty Start Date End Date Zhane, Bong GRINDING OPERATOR-WALL TO WALL CARPET INSTALLER [address], [facility] [address] [place] [address] PCP - General [facility] Medicine 05/05/22 Medical Doctor Md Relationship Specialty Start Date End Date [place], Bong YULISA-WALL TO WALL CARPET INSTALLER [address], [place] [phone] PCP - General Family Medicine 05/05/22 Medical Doctor Md Relationship Specialty Start Date End Date Bong Phelan APRN-WALL TO WALL CARPET INSTALLER [address], [place] [phone] PCP - General Family Medicine 05/05/22 Medical Doctor Md Relationship Specialty Start Date End Date Zhane, BongROSAN-WALL TO WALL CARPET INSTALLER [address], [address] PCP - General [facility] Medicine 05/05/22 Medical Doctor Md Relationship Specialty Start Date End Date Zhane, Bong YULISA-WALL TO WALL CARPET INSTALLER [address], [place] [phone] PCP - General Family Medicine 05/05/22 Medical Doctor Md Relationship Specialty Start Date End Date Zhane BongROSAN-WALL TO WALL CARPET INSTALLER [address] VICTORIA MCKEON, [place] [phone] PCP - General Family Medicine 05/05/22 Medical Doctor Md Relationship Specialty Start Date End Date Bong Phelan MD [address] [phone] PCP - General Family Medicine 07/18/23 Medical Doctor Md Relationship Specialty Start Date End Date Bong Phelan MD [address] [phone] PCP - General Family Medicine 07/18/23 FOR RECORDS PERTAINING TO PATIENTS WHO ARE [...] BE BASED ON THE PRIMARY CLINICAL RECORDS. [facility]. provides no warranty or guarantee of the accuracy or completeness of information in this document.
== END 2024-02-11 19:55 | disposition home or self-care (01) ==
LOC: LAB 19:54
PROVIDERS: Visit Provider Obstetrics & Gynecology
DX: R87.610 Atypical squamous cells of undetermined significance on cytologic smear of cervix (ASC-US) (principal); R87.810 Cervical high risk human papillomavirus (HPV) DNA test positive
CPT/HCPCS: 87624; 88175

== ENCOUNTER 2024-10-22 19:37 | Emergency (ER) | payer MEDICAID, SELFPAY ==
[2024-10-22 19:40] VITALS: BP 149/98; PULSE 93; TEMP 36.7; O2SAT 96; BMI 54.1
--- OUTSIDE RECORDS SUMMARY | 2024-10-22 19:48 | XMS_ITS | CCD ---
Author Organization [facility] Care Team Providers Care Sales Management Intern Name Role Phone SALLY WELCH Admitting Unavailable SALLY WELCH Attending Unavailable MISC, DOCTOR Primary Care Unavailable JC WILDER Consulting Unavailable SALLY WELCH Consulting Unavailable LYSSA PARK Admitting Unavailable JORDYN BARRERA Primary Care Unavailable LYSSA PARK Attending Unavailable KINGS MIRANDA Referring Unavailable Alesha Watkins Unavailable Shilpi Cedillo Unavailable Lynda Pena Unavailable RIKI Sherman Attending Unavailable Velia LUND Attending Unavailable YULISA Barrera Primary Care Provider [phone] MD Jonny Bentley Admit Provider MD Jonny Bentley Attending Provider BOBBI ORTIZ Attending Unavailable BONG PHELAN Referring Unavailable ZHANE, BONG Primary Care Unavailable NEENA DEL CASTILLO Attending Unavailable BONG PHELAN Referring Unavailable ZHANE, BONG Primary Care Unavailable [place] Bong MOSHER Primary Care Provider [phone] Jordyn Barrera Primary Care Unavailable Jonny Bentley Attending Unavaila Jonny Sampson Admitting Unavaila AINSLEY Sterling Attending Unavailable RAMAN RIVERA Attending Unavailable RAMAN RIVERA Attending Unavailable AINSLEY STACK Attending Unavailable RAMAN RIVERA Attending Unavailable Zhane PROFESSOR OF GERMAN-Bong VALENTE Primary Care Provid er LYSSA PARK Attending Unavailable SHENDGE, VITHAL Referring Unavailable SHENDGE, VITHAL Referring Unavailable SHENDGE, VITHAL Attending Unavailable SHENDGE, VITHAL Admitting Unavailable SHENDGE, VITHAL Attending Unavailable SHENDGE, VITHAL Attending Unavailable SHENDGE, VITHAL Referring Unavailable SHENDGE, VITHAL Referring Unavailable SHENDGE, VITHAL Referring Unavailable Zhane PROFESSOR OF GERMAN-ANCHOR TACK PULLER, Bong Primary Care Provid er ZHANE, BONG Referring Unavailable ZHANE, BONG Primary [...] ZHANE, BONG Primary Care Unavailable HEATHER HUMPHREY Attending Unavailable NEENA DEL CASTILLO Attending Unavailable NEENA DEL CASTILLO Referring Unavailable ZHANE, BONG Primary Care Unavailable NEENA DEL CASTILLO Referring Unavailable ZHANE, BONG Primary Care Unavailable JORDYN MOREIRA Attending Unavailable ZHANE, BONG Referring Unavailable ZHANE, BONG Primary Care Unavailable NEENA DEL CASTILLO Attending Unavailable NEENA DEL CASTILLO Referring Unavailable ZHANE, BONG Primary Care Unavailable ZHANE, BONG Attending Unavailable ZHANE, BONG Referring Unavailable ZHNAE, BONG Primary Care Unavailable ZHANE, BONG Referring [...] Referring Unavailable ZHANE, BONG Primary Care Unavailable SIMONA LOGAN Admitting Unavailable LOGAN, MURAD H Attending Unavailable CHITO TORO Referring Unavailable ZHANE, BONG Primary Care Unavailable YOANA CHAVES Consulting Unavailable CHITO TORO Referring Unavailable ZHANE, BONG Primary Care Unavailable BOMMANA, LUDWIN GOPALA R Admitting Unavailab le BOMMANA, LUDWIN GOPALA R Attending Unavailab le HUMPHREYHEATHER Referring Unavailable ZHANE, BONG Primary Care Unavailable YOANA CHAVES Consulting Unavailable [facility] Consulting Unavailable HUMPHREY, HEATHER Referring Unavailable ZHANE, BONG Primary Care Unavailable [...] Referring Unavailable ZHANE, BONG Primary Care Unavailable Allergies Allergy Classification Reported Allergen(s) Allergy Type Date of Onset Reaction(s) Facility (4 sources) Acetaminophen / HYDROcodone; Translations: [NORCO] Drug Allergy 1 Itchy [facility] Repository (4 sources) cyclobenzaprine; Translations: [FLEXERIL] Drug Allergy 1 Itchy [facility] Repository (20 sources) hydroCHLOROthiazi de; Translations: [hydroCHLOROthiaz jorge] Drug Allergy [address] [facility] (1 source) Acetaminophen / HYDROcodone; Translations: [acetaminophen-hy drocodone] Drug Allergy 1 [facility] Repository (20 sources) cyclobenzaprine; Translations: [cyclobenzaprine] Drug Allergy 1 Headache, Hives [facility] Repository (2 sources) Acetaminophen; Translations: [acetaminophen] Drug Allergy 3 Itchy [facility] (2 sources) HYDROcodone; Translations: [hydrocodone] Drug Allergy 3 Itchy [facility] (20 sources) Acetaminophen / HYDROcodone; Translations: [HYDROCODONE-ACET AMINOPHEN] Drug Allergy 0 Itching, Headache [facility] Repository (20 sources) Lisinopril; Translations: [LISINOPRIL] Drug Allergy 4 Cough [facility] Repository Medications Current Medications Medication Drug Class(es) Dates Sig (Normalized) Sig (Original) acetaminophen 300 mg / butalbital 50 mg / caffeine 40 mg oral capsule (1 source) Barbiturate, Central Nervous System Stimulant, Methylxanthine Start: 11-06-2023 take 1 capsule by mouth every four hours Butalbital-Acetam inophen-Caff (Fioricet) 50-300-40 mg capsule Active 1 CAP PO Every 4 hours November 06, 2023 12:00am acetaminophen 325 mg / oxyCODONE hydrochloride 7.5 mg oral tablet (20 sources) Opioid Agonist Start: 04-14-2024 oxyCODONE-acetami nophen (PERCOCET) 7.5-325 mg per tablet Indications: Spondylosis without myelopathy or radiculopathy, lumbosacral region Take 1 tablet by mouth every 6 (six) hours as needed for pain. Max Daily Amount: 4 tablets 20 tablet 04/14/2024 Active Start: 03-14-2024 End: 03-21-2024 oxyCODONE-acetaminophen (PER COCET) 7.5-325 mg per tablet Indications: Lumbosacral spondylosis without myelopathy , Primary osteoarthritis of left knee Take 1 tablet by mouth every 6 (six) hours as needed for pain for up to 7 days. Max Daily Amount: 4 tablets 28 tablet 03/14/2024 03/21/2024 Active Start: 11-06-2023 End: 11-16-2023 take 1 tablet by mouth every six hours Oxycodone-Acetaminophen Discontinued 1 T AB PO Every 6 hours November 06, 2023 12:00am November 16, 2023 9:33am Start: 09-28-2023 End: 10-03-2023 oxyCODONE-acetaminophen (PER COCET) 5-325 mg per tablet Indications: Primary osteoarthritis of left knee Take 1 tablet by mouth every 6 (six) hours as needed for pain for up to 5 days. Max Daily Amount: 4 tablets 20 tablet 09/28/2023 10/01/2023 Discontinued Start: 03-08-2023 End: 02-04-2024 oxyCODONE-acetaminophen (PER COCET) 7.5-325 mg per tablet Indications: Other forms of systemic lupus erythematosus, unspecified organ involvement status (CMS-HCC) Take 1 tablet by mouth every 6 (six) hours as needed for pain. Max Daily Amount: 4 tablets 20 tablet 0 06/11/2023 Active [id number] 200 actuat albuterol 0.09 mg/actuat metered dose [...] Dihydropyridine Calcium Channel Silvana Start: 11-05-2022 End: 09-26-2024 take 1 tablet by mouth once daily in the morning amLODIPine (NORVASC) 10 mg tablet Indications: Essential hypertension TAKE 1 TABLET BY MOUTH EVERY MORNING 90 tablet 1 09/26/2024 Active amoxicillin 875 mg / clavulanate 125 mg oral tablet (2 sources) Penicillin-class Antibacterial Start: 02-22-2024 End: 03-03-2024 take 1 tablet by mouth once in the morning amoxicillin-pot clavulanate (AUGMENTIN) 875-125 mg per tablet Indications: Abscess Take 1 tablet by mouth in the morning and 1 tablet before bedtime. Do all this for 10 days. 20 tablet 02/22/2024 03/03/2024 Active ascorbic acid 500 mg oral capsule [...] Twice daily 42 November 16, 2023 9:31am Atovaquone (2 sources) Antimalarial, Antiprotozoal Start: 02-28-2019 [...] orally bid for 10 days Jun, Active b complex-folic acid tablet (6 sources) take 1 tablet by mouth once daily b complex-folic acid tablet Take 1 tablet by mouth Daily Active baclofen 10 mg oral tablet (20 sources) gamma-Aminobutyric Acid-ergic Agonist Start: 11-06-2023 End: 01-30-2024 baclofen (LIORESAL) 10 mg tablet Indications: Muscle spasm Take 1 tablet (10 mg total) by mouth as needed for muscle spasms. 30 tablet 2 01/30/2024 Active cholecalciferol 0.05 mg oral capsule (11 sources) Vitamin D Start: 07-21-2024 take 1 capsule by mouth once in the morning cholecalciferol, vitamin D3, 2,000 units capsule Indications: Vitamin D deficiency Take 1 capsule (2,000 Units total) by mouth in the morning. 100 capsule 07/21/2024 Active ciprofloxacin 500 mg oral tablet (6 sources) Quinolone Antimicrobial Start: 05-01-2023 End: 05-08-2023 take 1 tablet by mouth in the morning, then take 1 tablet by mouth at bedtime ciprofloxacin HCl (CIPRO) 500 mg tablet Indications: Acute cystitis without hematuria Take 1 tablet (500 mg total) by mouth in the morning and 1 tablet (500 mg total) before bedtime. Do all this for 7 days. 14 tablet 0 05/01/2023 05/08/2023 Active citalopram 20 mg oral tablet (20 sources) Serotonin Reuptake Inhibitor Start: 02-11-2024 End: 02-10-2025 take 1 tablet by mouth in the morning citalopram (CeleXA) 20 mg tablet Take 1 tablet (20 mg total) by mouth in the morning. 02/11/2024 02/10/2025 Active dexamethasone 4 mg oral tablet (3 sources) Corticosteroid Start: 02-07-2022 Dexamethasone 4 MG 3 tablets daily for 3 days then 2 tablets daily for 3 days then 1 tablet daily for 3 days Orally Once a day for 9 days Jan, Active dextromethorphan hydrobromide 1.5 mg/ml / pyrilamine maleate 1.5 mg/ml oral solution (1 source) Uncompetitive J-npfuqz-J-aspartat e Receptor Antagonist, Sigma-1 Agonist Start: 06-29-2022 take 10 mL by mouth every eight hours [employer] DM 7.5-7.5 MG/5ML 10 mL Orally every 8 hours for 5 days Jun, Active diclofenac sodium 0.01 mg/mg topical gel (20 sources) Nonsteroidal Anti-inflammatory Drug Start: 11-16-2023 apply 2 g topically three times daily Diclofenac Sodium Active 2 GM TOPICAL Three times daily 100 November 16, 2023 12:00am Start: 10-25-2022 End: 09-27-2023 take 1 tablet by mouth in the morning, then take 1 tablet by mouth at bedtime diclofenac (VOLTAREN) 75 mg EC tablet Take 1 tablet (75 mg total) by mouth in the morning and 1 tablet (75 mg total) before bedtime. 60 tablet 1 10/25/2022 09/27/2023 Discontinued (Therapy completed) doxycycline hyclate 100 mg oral capsule (1 source) Tetracycline-class Drug Start: 02-22-2024 End: 02-29-2024 take 1 capsule by mouth in the morning, then take 1 capsule by mouth at bedtime doxycycline (VIBRAMYCIN) 100 mg capsule Indications: Abscess Take 1 capsule (100 mg total) by mouth in the morning and 1 capsule (100 mg total) before bedtime. Do all this for 7 days. 14 capsule 02/22/2024 02/29/2024 Active DULoxetine 60 mg delayed release oral capsule (20 sources) Serotonin and Norepinephrine Reuptake Inhibitor Start: 04-24-2023 End: 06-10-2024 take 1 capsule by mouth once daily in the morning DULoxetine (CYMBALTA) 60 mg capsule TAKE 1 CAPSULE BY MOUTH EVERY MORNING 90 capsule 1 06/10/2024 Active Start: 02-28-2019 End: 11-06-2023 take 60 mg by mouth once daily Duloxetine Active 60 MG PO Daily February 28, 2019 5:45pm take 1 capsule by [facility] every twelve hours Cymbalta 60 MG 1 capsule Orally Twice a day for 30 day(s) Active fluticasone propionate 0.05 mg/actuat metered dose nasal [...] with meals February 28, 2019 5:45pm hydrOXYzine pamoate 50 mg oral capsule (20 sources) Antihistamine Start: 11-16-2023 End: 12-14-2023 [...] 90 November 16, 2023 9:31am Start: 06-29-2023 End: 10-07-2024 take 1 capsule by mouth three times daily as needed hydrOXYzine (VISTARIL) 50 mg capsule Indications: Medication refill Take 1 capsule (50 mg total) by mouth 3 (three) times a day as needed for itching. 90 capsule 2 10/07/2024 Active Start: 06-18-2023 End: 08-16-2023 take 1 tablet by mouth once daily hydrOXYzine (ATARAX) 50 mg tablet Take 1 tablet (50 mg total) by mouth nightly. 30 tablet 1 06/18/2023 08/16/2023 Discontinued (Therapy completed) Start: 12-15-2022 End: 06-18-2023 take 1 capsule by mouth three times daily as needed hydrOXYzine (VISTARIL) 50 mg capsule Indications: Medication refill Take 1 capsule (50 mg total) by mouth 3 (three) times a day as needed for itching. 270 capsule 0 05/07/2023 06/18/2023 Discontinued take 1 tablet by padmaja twice daily as needed hydrOXYzine HCl 50 MG 1 tablet as needed Orally twice daily for 30 day(s) Active ibuprofen 800 mg oral tablet (20 sources) Nonsteroidal Anti-inflammatory Drug Start: 05-05-2019 End: 11-06-2023 take 1 tablet by mouth three times daily ibuprofen (MOTRIN) 800 mg tablet Take 1 tablet (800 mg total) by mouth 3 (three) times a day. 21 tablet 0 10/25/2022 Active lisinopril 20 mg oral tablet (3 sources) Angiotensin Converting Enzyme Inhibitor take 1 tablet by mouth every twenty-four hours Lisinopril 20 MG 1 tablet Orally Once a day for 30 day(s) Active losartan potassium 25 mg oral tablet (20 sources) Angiotensin 2 Receptor Silvana Start: 09-27-2023 End: 11-16-2023 take 1 tablet by mouth in the morning losartan (COZAAR) 25 mg tablet Take 1 tablet (25 mg total) by mouth in the morning. 90 tablet 3 09/27/2023 Active Magnesium (6 sources) take 1 capsule by mouth once daily Magnesium 400 MG capsule Take 400 mg by mouth Daily Active magnesium oxide 400 mg oral capsule (1 source) Start: 11-06-2023 take 400 mg by mouth once daily Magnesium Oxide Active 400 MG PO Daily November 06, 2023 12:00am metFORMIN hydrochloride 500 mg oral tablet (20 sources) Biguanide Start: 02-12-2024 End: 09-26-2024 take 2 tablets by mouth once daily in the morning, then take 2 tablets by mouth once daily at mealtime metFORMIN (GLUCOPHAGE) 500 mg tablet TAKE 2 TABLETS BY MOUTH EVERY MORNING AND 2 TABLETS EVERY EVENING WITH A MEAL 360 tablet 1 09/26/2024 Active Start: 11-16-2023 End: 02-12-2024 take 1 tablet by mouth in the morning, then take 1 tablet by mouth at mealtime metFORMIN (GLUCOPHAGE) 500 mg tablet Take 1 tablet (500 mg total) by mouth in the morning and 1 tablet (500 mg total) in the evening. Take with meals. 11/16/2023 02/12/2024 Discontinued (Reorder) Start: 11-16-2023 take 1000 mg by mout h twice daily at mealtime Metformin Active 1000 MG PO Twice daily with meals 60 November 16, 2023 12:00am Start: 05-15-2023 End: 12-14-2023 take 2 tablets by mouth once daily in the morning, then take 2 tablets by mouth once daily at bedtime metFORMIN XR (GLUCOPHAGE XR) 500 mg 24 hr tablet Indications: Pre-diabetes TAKE 2 TABLETS BY MOUTH EVERY MORNING AND TAKE TWO TABLETS BY MOUTH EVERY NIGHT AT BEDTIME 180 tablet 1 08/14/2023 12/14/2023 Discontinued (Stop Taking at Discharge) Start: 04-06-2023 End: 05-15-2023 take 2 tablets [...] 90 tablet 0 03/09/2023 04/06/2023 Discontinued (Reorder) miconazole nitrate 100 mg vaginal insert (2 sources) Azole Antifungal Start: 08-18-2023 End: 08-25-2023 miconazole (MICOTIN-7) 100 mg vaginal suppository Indications: 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 Insert 1 suppository (100 mg total) into the vagina nightly for 7 days. 7 suppository 08/18/2023 08/25/2023 Active montelukast 10 mg oral tablet (20 sources) Leukotriene Receptor Antagonist Start: 11-06-2023 End: 02-04-2024 take 10 mg by mouth once daily Montelukast Active 10 MG PO Daily November 16, 2023 9:31am End: 09-27-2023 take 1 tablet by mouth in the morning montelukast (SINGULAIR) 10 mg tablet Take 1 tablet (10 mg total) by mouth in the morning. 09/27/2023 Discontinued (Therapy completed) multivitamin (THERAGRAN) tablet (20 sources) take 1 tablet by padmaja th in the morning multivitamin (THERAGRAN) tablet Take [...] TAB PO Daily November 06, 2023 12:00am omeprazole 20 mg delayed release oral capsule (20 sources) Proton Pump Inhibitor Start: 04-06-2023 End: 09-26-2024 take 1 capsule by mouth once daily in the morning omeprazole (PriLOSEC) 20 mg capsule Indications: Gastroesophageal reflux disease without esophagitis TAKE 1 CAPSULE BY MOUTH EVERY MORNING 90 capsule 09/26/2024 Active ondansetron 4 mg disintegrating oral tablet (20 sources) Serotonin-3 Receptor Antagonist Start: 11-06-2023 take [...] 16, 2023 9:31am ONETOUCH ULTRA2 METER misc (20 sources) Start: 11-16-2023 ONETOUCH ULTRA 2 METER misc 11/16/2023 Active Start: 11-16-2023 ONETOUCH ULTRA 2 METER misc USE DIRECTED TO test blood sugar 11/16/2023 Active Start: 11-16-2023 ONETOUCH ULTRA 2 METER misc USE DIRECTED TO test blood sugar 11/16/2023 Suspended phenazopyridine hydrochloride 200 mg oral tablet (2 sources) Start: 07-22-2024 End: 07-25-2024 take 1 tablet by mouth three times daily as needed for muscle spasms phenazopyridine (PYRIDIUM) 200 mg tablet Indications: Dysuria , Urinary urgency Take 1 tablet (200 mg total) by mouth 3 (three) times a day as needed for bladder spasms for up to 3 days. 9 tablet 07/22/2024 07/25/2024 Active predniSONE 20 mg oral tablet (8 sources) Start: 02-20-2024 End: 02-25-2024 take 1 tablet by mouth once daily in the morning predniSONE (DELTASONE) 20 mg tablet Indications: Systemic lupus erythematosus, unspecified SLE type, unspecified organ involvement status ([facility]-H[facility]) TAKE 1 TABLET BY MOUTH EVERY MORNING FOR 5 DAYS 5 tablet 02/20/2024 02/25/2024 Active Start: 11-06-2023 End: 11-16-2023 Prednisone Discontinued 20 M G PO Daily November 06, 2023 12:00am November 16, 2023 9:33am days - of therapy Start: 09-12-2023 End: 09-17-2023 take 1 tablet by mouth in the morning predniSONE (DELTASONE) 20 mg tablet Indications: Systemic lupus erythematosus, unspecified SLE type, unspecified organ involvement status ([facility]-HCC) Take 1 tablet (20 mg total) by mouth in the morning for 5 days. 5 tablet 09/12/2023 09/17/2023 Active Start: 06-28-2022 take 1 tablet by padmaja th every twelve hours prednisone 20 MG 1 tablet Orally 2 times a day for 5 days Jun, Active Start: 02-28-2019 End: 11-06-2023 take 60 mg by mouth once daily Prednisone Active 60 MG PO Daily February 28, 2019 5:45pm On taper-down rivaroxaban 20 mg oral tablet (20 sources) Factor Xa Inhibitor Start: 01-07-2024 take 1 tablet by mouth in the morning rivaroxaban (XARELTO) 20 mg tablet tablet Indications: Acute pulmonary embolism with acute cor pulmonale, unspecified pulmonary embolism type ([facility]-H[facility]) Take 1 tablet (20 mg total) by [...] daily with food. 51 tablet 12/07/2023 Suspended sulfamethoxazole 800 mg / trimethoprim 160 mg oral tablet (1 source) Dihydrofolate Reductase Inhibitor Antibacterial, Sulfonamide Antimicrobial Start: 07-12-2023 End: 07-15-2023 take 1 tablet by mouth once in the morning sulfamethoxazole-trimethoprim (BACTRIM DS) 800-160 mg per tablet Indications: Acute cystitis without hematuria Take 1 tablet by mouth in the morning and 1 tablet before bedtime. Do all this for 3 days. 6 tablet 07/12/2023 07/15/2023 Active SUMAtriptan 25 mg oral tablet (20 [...] (Stop Taking at Discharge) SUMAtriptan Acti ve tirzepatide (MOUNJARO) 2.5 mg/0.5 mL pen injector (2 sources) Start: 02-04-2024 End: 03-05-2024 tirzepatide (MOUNJARO) 2.5 mg/0.5 mL pen injector Inject 0.5 mL under the skin. 02/04/2024 03/05/2024 Active Tirzepatide (Mounjaro) 2.5 MG/0.5ML solution auto-injector (5 sources) Start: 02-04-2024 End: 03-05-2024 inject 0.5 mL by subcutaneous injection every week Tirzepatide (Mounjaro) 2.5 MG/0.5ML solution auto-injector Indications: Encounter for weight loss counseling Inject 0.5 mL under the skin 1 (one) time per week 2 mL 02/04/2024 03/05/2024 Active tirzepatide, weight loss, (ZEPBOUND) 2.5 mg/0.5 mL pen injector (11 sources) Start: 07-21-2024 tirzepatide, weight loss, (ZEPBOUND) 2.5 mg/0.5 mL pen injector Indications: SOPHIE (obstructive sleep apnea) , Morbid obesity with BMI of 50.0-59.9, adult ([facility]) , Prediabetes Inject 2.5 mg under the skin every 7 days. 2 mL 1 07/21/2024 Active tiZANidine 4 mg oral tablet (20 sources) Central alpha-2 Adrenergic Agonist Start: 02-07-2022 take 1 tablet by mouth every eight hours Zanaflex 4 MG 1 tablet as needed Orally every 8 hrs Jan, Active End: 09-27-2023 take 1 tablet by mouth every six hours as needed tiZANidine (ZANAFLEX) 2 mg tablet Take 1 tablet (2 mg total) by mouth every 6 (six) hours as needed. 09/27/2023 Discontinued (Therapy completed) topiramate 50 mg oral tablet (20 sources) Start: 11-16-2023 End: 10-07-2024 take 1 tablet by mouth once daily at bedtime topiramate (TOPAMAX) 50 mg tablet TAKE 1 TABLET BY MOUTH EVERY MORNING AND BEFORE BEDTIME 60 tablet 2 10/07/2024 Active Start: 11-06-2023 End: 11-16-2023 take 50 mg by mouth twice daily Topiramate Active 50 M G PO Twice daily 60 30 November 16, 2023 9:31am Start: 08-16-2023 End: 12-14-2023 take 1 tablet by mouth once daily topiramate (Topamax) 25 MG tablet Take 25 mg by mouth Daily 10/16/2023 Active Turmeric Curcumin 500 MG capsule (6 sources) take 1 capsule by mo [facility] once daily Turmeric Curcumin 500 MG capsule [...] 1000 MG PO Three times daily 180 November 16, 2023 12:00am acetaminophen (T YLENOL ARTHRITIS) 650 mg 8 hr tablet acetaminophen ER 650 mg tablet,extended release Suspended acetaminophen (T YLENOL ARTHRITIS) 650 mg 8 hr tablet acetaminophen ER 650 mg tablet,extended release 0 Active atogepant (QULIPTA) 60 mg tablet (20 sources) Start: 12-06-2022 End: 08-16-2023 take 1 tablet by mouth in the morning atogepant (QULIPTA) 60 mg tablet Indications: Other migraine without status migrainosus, not intractable Take 60 mg by mouth in the morning. 30 tablet 12/06/2022 08/16/2023 Discontinued (Therapy completed) Start: 12-06-2022 take 1 tablet by padmaja th in the morning atogepant (QULIPTA) 60 mg tablet Indications: Other migraine without status migrainosus, not intractable Take 60 mg by mouth in the morning. 30 tablet 12/06/2022 Active Start: 12-06-2022 take 1 tablet by padmaja th in the morning atogepant (QULIPTA) 60 mg tablet Indications: Other migraine without status migrainosus, not intractable Take 60 mg by mouth in the morning. 30 tablet 0 12/06/2022 Active azaTHIOprine 50 mg oral tablet (20 sources) Purine Antimetabolite Start: 08-08-2024 End: 08-08-2024 take 2 tablets by mouth at bedtime azaTHIOprine (IMURAN) 50 mg tablet Indications: Systemic lupus erythematosus, unspecified SLE type, unspecified organ involvement status (CMS-HCC) Take 2 tablets (100 mg total) by mouth in the morning and at bedtime. 120 tablet 08/08/2024 08/08/2024 Discontinued Start: 01-02-2023 End: 08-08-2024 take 1 tablet by mouth twice daily azaTHIOprine (IMURAN) 100 mg tablet Indications: Systemic lupus erythematosus, unspecified SLE type, unspecified organ involvement status (CMS-HCC) take 1 tablet by mouth 2 times a day 120 tablet 08/14/2023 06/10/2024 Discontinued Start: 02-28-2019 End: 11-06-2023 take 50 mg by mouth three times daily Azathioprine Active 50 MG PO Three times daily February 28, 2019 5:45pm Imuran Active cholecalciferol, vitamin D3, (VITAMIN D3 ORAL) (20 sources) End: 08-16-2023 take 2000 [IU] by mouth once daily cholecalciferol, vitamin D3, (VITAMIN D3 ORAL) Take 2,000 Unit by mouth daily. 08/16/2023 Discontinued (Therapy completed) take 2000 [IU] by mouth once olga lidia ly cholecalciferol, vitamin D3, (VITAMIN D3 ORAL) Take 2,000 Unit by mouth daily. Active take 2000 [IU] by mouth once olga lidia ly cholecalciferol, vitamin D3, (VITAMIN D3 ORAL) Take 2,000 Unit by mouth daily. 0 Active codeine phosphate 2 mg/ml / guaiFENesin 20 mg/ml oral solution (3 sources) Opioid Agonist Start: 02-15-2023 End: 03-08-2023 take 5 mL by mouth three times daily as needed for cough codeine-guaiFENesin (guaiFENesin AC) 10-100 mg/5 mL liquid Indications: Acute upper respiratory infection Take 5 mL by mouth 3 (three) times a day as needed for cough. 118 mL 0 02/15/2023 03/08/2023 Discontinued (Therapy completed) docusate sodium 100 mg oral capsule (11 sources) Start: 11-06-2023 End: 02-07-2024 take 1 capsule by mouth in the morning, then take 1 capsule by mouth at bedtime docusate sodium (COLACE) 100 mg capsule Take 1 capsule (100 mg total) by mouth in the morning and 1 capsule (100 mg total) before bedtime. 11/06/2023 01/10/2024 Discontinued (Therapy completed) estrogens, conjugated ([facility]) 0.9 mg oral tablet (8 sources) Estrogen Start: 09-17-2023 End: 02-04-2024 take 1 tablet by mouth in the morning PREMARIN 0.9 mg tablet Take 1 tablet (0.9 mg total) by mouth in the morning. 01/28/2024 01/29/2024 Discontinued lidocaine 0.05 mg/mg medicated patch (20 sources) Antiarrhythmic, Amide Local Anesthetic Start: 03-21-2023 End: 08-16-2023 apply 1 dose transdermal route once daily, then apply 1 dose transdermal route every twelve hours lidocaine (LIDODERM) 5 % Place 1 patch on the skin daily. Remove & Discard patch within 12 hours or as directed by MD [facility] patch 03/21/2023 08/16/2023 Discontinued (Therapy completed) naproxen 500 mg oral tablet (20 sources) Nonsteroidal Anti-inflammator y Drug Start: 01-17-2023 End: 09-27-2023 take 1 tablet by mouth in the morning, then take 1 tablet by mouth at mealtime naproxen (NAPROSYN) 500 mg tablet Indications: Lupus (CMS-HCC) Take 1 tablet (500 mg total) by mouth in the morning and 1 tablet (500 mg total) in the evening. Take with meals. 60 tablet 01/17/2023 09/27/2023 Discontinued (Therapy completed) 12 hr orphenadrine citrate 100 mg extended release oral tablet (20 sources) Muscle Relaxant Start: 10-01-2022 End: 09-27-2023 take 1 tablet by mouth twice daily as needed for muscle spasms orphenadrine (NORFLEX) 100 mg 12 hr tablet Take 1 tablet (100 mg total) by mouth 2 (two) times a day as needed for muscle spasms. 10 tablet 10/01/2022 09/27/2023 Discontinued (Therapy completed) oxyCODONE hydrochloride 5 mg oral tablet (20 sources) Opioid Agonist Start: 11-16-2023 End: 03-14-2024 take 1 tablet by mouth every six hours as needed for pain oxyCODONE (ROXICODONE) 5 mg immediate release tablet Take 1 tablet (5 mg total) by mouth every 6 (six) hours as needed for pain. 11/16/2023 12/21/2023 Discontinued (Reorder) Start: 11-16-2023 take 2 tablets by [facility] every four hours as needed for pain oxyCODONE (ROXICODONE) 5 mg immediate release tablet Take 2 tablets (10 mg total) by mouth every 4 (four) hours as needed for pain. 11/16/2023 Suspended Start: 11-16-2023 take 10 mg by mouth every four hours Oxycodone Active 10 MG PO Every 4 hours 42 7 November 16, 2023 sodium chloride 0.111 meq/ml nasal spray (20 sources) Start: 01-17-2023 End: 06-06-2024 sodium chloride (OCEAN NASAL ) 0.65 % nasal spray Administer 1 spray into each nostril as needed for rhinitis. 15 mL 12 01/17/2023 08/16/2023 Discontinued (Therapy completed) tirzepatide 2.5 mg/0.5 mL pe n injector (2 sources) Start: 02-27-2023 End: 03-02-2023 tirzepatide 2.5 mg/0.5 mL pe n injector Indications: Weight loss , Class 3 severe obesity with body mass index (BMI) of 50.0 to 59.9 in adult, unspecified obesity type, unspecified whether serious comorbidity present ([facility]) Inject 2.5 mg under the skin every 7 days. Please dispense Zepbound 3 mL 0 02/27/2023 03/02/2023 Discontinued (Alternate therapy) tirzepatide, weight loss, 2. 5 mg/0.5 mL pen injector (20 sources) Start: 03-02-2023 End: 08-16-2023 tirzepatide, weight loss, 2. 5 mg/0.5 mL pen injector Indications: Pre-diabetes Inject 2.5 mg under the skin every 7 days. 3 mL 1 03/02/2023 08/16/2023 Discontinued Start: 03-02-2023 tirzepatide, w eight loss, 2.5 mg/0.5 mL pen injector Indications: Pre-diabetes Inject 2.5 mg under the skin every 7 days. 3 mL 1 03/02/2023 Active triamcinolone acetonide 40 mg/ml injectable suspension (3 sources) Corticosteroid Start: 12-05-2021 Kenalog-40 Nov, 40 mg Problems Active Problems Problem Classification Problem Date Documented Date Episodic/Chronic Abdominal pain (3 sources) Epigastric pain; Translations: [Epigastric pain] Onset: 07-21-2024 05-04-2023 Episodic Administrative/socia l admission (13 sources) Encounter for issue of repeat prescription; Translations: [Other reduced mobility] Onset: 11-06-2023 Episodic Anxiety disorders (20 sources) Mixed anxiety and depressive disorder; Translations: [Other specified anxiety disorders] Onset: 12-07-2023 12-13-2023 Chronic Asthma (20 sources) Mild intermittent asthma, uncomplicated; Translations: [Mild intermittent asthma] Onset: 12-07-2023 12-13-2023 Chronic Cancer of cervix (3 sources) Atypical squamous cells of undetermined significance on cervical Papanicolaou smear; Translations: [Atypical squamous cells of undetermined significance on cytologic smear of cervix (ASC-US)] Onset: 02-11-2024 02-11-2024 Episodic Coagulation and hemorrhagic disorders (2 sources) Coagulation defect, unspecified; Translations: [Coagulation defect, unspecified] Onset: 10-22-2023 Chronic Conditions associated with dizziness or vertigo (1 source) Dizziness Onset: 07-18-2024 Episodic Diabetes mellitus without complication (1 source) Diabetes mellitus Onset: 07-18-2024 Chronic Diabetes mellitus without complication (20 sources) Prediabetes; Translations: [Prediabetes] Onset: 11-06-2023 11-07-2023 Episodic E Codes: Fall (2 sources) Fall; Translations: [Unspecified fall, initial encounter] Onset: 07-18-2024 07-18-2024 Episodic Esophageal disorders (20 sources) Gastroesophageal reflux disease; Translations: [Gastro-esophageal reflux disease without esophagitis] Onset: 12-07-2023 12-13-2023 Chronic Essential hypertension (20 sources) Essential (primary) hypertension; Translations: [Hypertensive disorder] Onset: 03-07-2018 11-07-2023 Chronic Headache; including migraine (3 sources) Migraine; Translations: [Other migraine, not intractable, without status migrainosus] Onset: 08-16-2023 08-16-2023 Chronic Headache; including migraine (1 source) Headache Onset: 07-18-2024 Episodic Immunizations and screening for infectious disease (5 sources) Contact with and (suspected) exposure to other viral communicable diseases; Translations: [At risk of sexually transmitted infection ] Episodic Menopausal disorders (3 sources) Menopausal syndrome; Translations: [Menopausal and female climacteric states] Onset: 02-11-2024 02-11-2024 Chronic Mood disorders (2 sources) Reactive depression (situational); Translations: [Major depressive disorder, single episode, unspecified] Onset: 08-16-2023 08-16-2023 Chronic Nutritional deficiencies (20 sources) Vitamin D deficiency; Translations: [Vitamin D deficiency, unspecified] Onset: 12-07-2023 12-13-2023 Chronic Osteoarthritis (20 sources) Osteoarthritis of knee; Translations: [Osteoarthritis of knee, unspecified] Onset: 08-03-2022 11-14-2023 Chronic Other connective tissue disease (20 sources) History of total knee arthroplasty; Translations: [...] Onset: 07-23-2023 Chronic Other connective tissue disease (1 source) Spasm; Translations: [Other muscle spasm] 01-30-2024 Episodic Other injuries and conditions due to external causes (2 sources) Contusion; Translations: [Other injury of unspecified body region, initial encounter] 05-05-2019 Episodic Other liver diseases (2 sources) Steatosis of liver; Translations: [Fatty (change of) liver, not elsewhere classified] 05-04-2023 Chronic Other nervous system disorders (1 source) Other chronic pain; Translations: [Other chronic pain] Onset: 10-30-2023 Chronic Other non-traumatic joint disorders (3 sources) Pain in left wrist; Translations: [PAIN IN LEFT WRIST] Onset: 03-04-2018 Episodic Other non-traumatic joint disorders (5 sources) Pain in left knee; Translations: [Pain in joint, lower leg] Onset: 07-23-2023 Episodic Other nutritional; endocrine; and metabolic disorders (20 sources) Body mass index 40+ - severely obese; Translations: [Morbid (severe) obesity due to excess calories] Onset: 09-27-2023 11-07-2023 Chronic Other nutritional; endocrine; and metabolic disorders (5 sources) Morbid (severe) obesity due to excess calories; Translations: [Morbid obesity] Onset: 11-01-2023 11-16-2023 Chronic Other nutritional; endocrine; and metabolic disorders (2 sources) Body mass index (BMI) 50.0-59.9, adult; Translations: [Body mass index [BMI] 50.0-59.9, adult] Onset: 11-06-2023 Chronic Pulmonary heart disease (7 sources) Pulmonary hypertension, unspecified; Translations: [Other pulmonary embolism with acute cor pulmonale] Onset: 12-13-2023 01-07-2024 Chronic Residual codes; unclassified (20 sources) Obstructive sleep apnea syndrome; Translations: [Obstructive sleep apnea (adult) (pediatric)] Onset: 10-31-2023 12-13-2023 Chronic Residual codes; unclassified (1 source) Obstructive [...] erythematosus and connective tissue disorders (20 sources) Acute systemic lupus erythematosus; Translations: [Systemic lupus erythematosus, unspecified] Onset: 12-07-2023 11-09-2023 Chronic Unclassified (2 sources) Hospital Follow-up Onset: 12-19-2023 Unclassified (1 source) Blood Clot(s) Onset: 01-07-2024 Unclassified (1 source) TROUBLE BREATHING Onset: 12-06-2023 Unclassified (1 source) Low back pain, unspecified; Translations: [Low back pain, unspecified] Onset: 10-30-2023 Unclassified (1 source) Pre-op Exam Onset: 09-27-2023 Unclassified (1 source) Knee Injury Onset: 07-18-2024 Unclassified (1 source) Mass Onset: 02-22-2024 Unclassified (1 source) Breathing Problem Onset: 12-19-2023 Unclassified (1 source) Annual Exam Onset: 08-16-2023 Past or Other Problems Problem Classification Problem Date Documented Date Episodic/Chronic Bacterial infection; unspecified site (1 source) Other specified bacterial agents as the cause of diseases classified elsewhere; Translations: [Other specified bacterial agents as the cause of diseases classified elsewhere] Onset: 08-16-2023 Episodic External cause codes: Fall (2 sources) Other fall on same level, initial encounter; Translations: [Fall] Onset: 03-07-2018 07-21-2024 Genitourinary symptoms and ill-defined conditions (10 sources) Increased frequency of urination; Translations: [Frequency of micturition] Onset: 08-16-2023 08-16-2023 Episodic Inflammatory diseases of female pelvic organs (2 sources) Bacterial vaginosis; Translations: [Acute vaginitis] Onset: 08-16-2023 08-16-2023 Episodic Mood disorders (20 sources) Mood disorders Onset: 12-13-2023 Resolved: 02-22-2024 02-22-2024 Mycoses (1 source) Candidiasis; Translations: [Candidiasis, unspecified] 08-18-2023 Episodic Nonspecific chest pain (1 source) Chest discomfort; Translations: [Other chest pain] 04-06-2023 Episodic Nutritional deficiencies (20 sources) Thiamine deficiency; Translations: [Thiamine deficiency, unspecified] Onset: 12-07-2023 12-13-2023 Episodic Other acquired deformities (2 sources) Varus deformity, not elsewhere classified, left knee; Translations: [Varus deformity, not elsewhere classified, left knee] Onset: 07-23-2023 Episodic Other aftercare (1 source) Patient encounter status; Translations: [Encounter for therapeutic drug level monitoring] 04-30-2023 Episodic Other connective tissue disease (20 sources) Fibromyalgia; Translations: [Fibromyalgia] Onset: 12-07-2023 12-13-2023 Episodic Other connective tissue disease (1 source) Other muscle spasm; Translations: [Other muscle spasm] Onset: 01-30-2024 Episodic Other lower respiratory disease (20 sources) Other nonspecific abnormal finding of lung field; Translations: [Swelling, mass, or lump in chest] Onset: 01-10-2024 01-10-2024 Episodic Other lower respiratory disease (2 sources) Shortness of breath; Translations: [Shortness of breath] Onset: 12-06-2023 Episodic Other lower respiratory disease (1 source) Shortness of breath Onset: 09-27-2023 Episodic Other non-traumatic joint disorders (20 sources) Anterior knee pain; Translations: [Pain in right knee] Onset: 04-20-2021 04-20-2021 Episodic Other non-traumatic joint disorders (2 sources) Knee pain Onset: 10-30-2023 Episodic Other nutritional; endocrine; and metabolic disorders (20 sources) Severe obesity; Translations: [Class 3 severe obesity due to excess calories without serious comorbidity in adult] Onset: 12-27-2020 Resolved: 09-27-2023 09-27-2023 Chronic Other nutritional; endocrine; and metabolic disorders (20 sources) Morbid obesity; Translations: [Morbid (severe) obesity due to excess calories] Onset: 05-10-2017 Resolved: 01-29-2024 01-29-2024 Chronic Other screening for suspected conditions (not mental disorders or infectious disease) (8 sources) Electrocardiogram abnormal; Translations: [Abnormal electrocardiogram [ECG] [EKG]] Onset: 09-27-2023 08-21-2023 Episodic Pulmonary heart disease (20 sources) Other pulmonary embolism without acute cor pulmonale; Translations: [Pulmonary embolism] Onset: 12-07-2023 12-13-2023 Episodic Residual codes; unclassified (1 source) Other specified health status; Translations: [Other specified health status] Onset: 11-06-2023 Episodic Skin and subcutaneous tissue infections (3 sources) Abscess; Translations: [Cutaneous abscess, unspecified] Onset: 02-22-2024 02-22-2024 Episodic Spondylosis; intervertebral disc disorders; other back problems (2 sources) Chronic low back pain; Translations: [Chronic bilateral low back pain, unspecified whether sciatica present] Onset: 12-19-2023 10-30-2023 Episodic Unclassified (1 source) Lumbar pain M54.50 Unclassified (2 sources) Patient encounter status 02-04-2024 Unclassified (20 sources) Onset: 01-06-2020 01-06-2020 Unclassified (1 source) Right lower lobe lung mass 01-16-2024 Urinary tract infections (5 sources) Acute cystitis; Translations: [Acute cystitis without hematuria] Onset: 02-22-2024 07-12-2023 Episodic Results Test Name Value Interpretation Reference Range Facility URINALYSISon 07-21-2024 Bilirubin Ql (U) Negative Normal Negative [facility] Comment on above: Order Comment: Urine received without preservative. Delays in transport may affect results. Interpret with caution. A clinical correlation is recommended. Performed By: #### 4 8066-5, PINR, 35641-7 #### [facility] ([id number]) [address] [place] [id number] #### CBCA, CMP #### [facility] ([id number]) [address], [address] [place] [address] BLOOD/HGB Negative Normal Negative [facility] Comment on above: Order Comment: Urine received without preservative. Delays in transport may affect results. Interpret with caution. A clinical correlation is recommended. Performed By: #### 4 8066-5, PINR, 72966-0 #### [facility] ([id number]) [address] [place] [address] #### CBCA, CMP #### [facility] ([id number]) [address], [address] [place] [address] CA OXALATE CRYSTALS Present Abnormal None [facility] Comment on above: Order Comment: Urine received without preservative. Delays in transport may affect results. Interpret with caution. A clinical correlation is recommended. Performed By: #### 4 8066-5, PINR, 43323-7 #### [facility] ([id number]) [address] [place] [address] #### CBCA, CMP #### [facility] ([id number]) [address], [address] [place] [address] Color (U) Yellow Normal Yellow, Colorless [facility] Comment on above: Order Comment: Urine received without preservative. Delays in transport may affect results. Interpret with caution. A clinical correlation is recommended. Performed By: #### 4 8066-5, PINR, 03915-1 #### [facility] ([id number]) [address] [place] [address] #### CBCA, CMP #### [facility] ([id number]) [address], [address] [place] [address] Glucose Ql (U) Negative Normal Negative [facility] Comment on above: Order Comment: Urine received without preservative. Delays in transport may affect results. Interpret with caution. A clinical correlation is recommended. Performed By: #### 4 8066-5, PINR, 29509-2 #### [facility] ([id number]) [address] [place] [address] #### CBCA, CMP #### [facility] ([id number]) [address], [address] [place] [address] Hyaline casts LM Ql (Urine sed) 18 High 0-2 [facility] Comment on above: Order Comment: Urine received without preservative. Delays in transport may affect results. Interpret with caution. A clinical correlation is recommended. Performed By: #### 4 8066-5, PINR, 37147-0 #### [facility] ([id number]) [address] [place] [address] #### CBCA, CMP #### [facility] ([id number]) [address], [address] [place] [address] Ketones Ql (U) Trace Abnormal Negative [facility] Comment on above: Order Comment: Urine received without preservative. Delays in transport may affect results. Interpret with caution. A clinical correlation is recommended. Performed By: #### 4 8066-5, PINR, 02866-0 #### [facility] ([id number]) [address] [place] [address] #### CBCA, CMP #### [facility] ([id number]) [address], [address] [place] [address] Leukocyte esterase Test strip Ql (U) Trace Abnormal Negative [facility] Comment on above: Order Comment: Urine received without preservative. Delays in transport may affect results. Interpret with caution. A clinical correlation is recommended. Performed By: #### 4 8066-5, PINR, 48167-8 #### [facility] ([id number]) [address] [place] [address] #### CBCA, CMP #### [facility] ([id number]) [address], [address] [place] [address] MUCOUS Present Abnormal None [facility] Comment on above: Order Comment: Urine received without preservative. Delays in transport may affect results. Interpret with caution. A clinical correlation is recommended. Performed By: #### 4 8066-5, PINR, 55618-4 #### [facility] ([id number]) [address] [place] [address] #### CBCA, CMP #### [facility] ([id number]) [address] [facility], [address] [place] [address] Nitrite Ql (U) Negative Normal Negative [facility] Comment on above: Order Comment: Urine received without preservative. Delays in transport may affect results. Interpret with caution. A clinical correlation is recommended. Performed By: #### 4 8066-5, PINR, 54344-4 #### [facility] ([id number]) [address] [place] [address] #### CBCA, CMP #### [facility] ([id number]) [address], [address] [place] [address] PH,URINE 6.0 Normal 5.0-8.5 [facility] Comment on above: Order Comment: Urine received without preservative. Delays in transport may affect results. Interpret with caution. A clinical correlation is recommended. Performed By: #### 4 8066-5, PINR, 35332-2 #### [facility] ([id number]) [address] [place] [address] #### CBCA, CMP #### [facility] ([id number]) [address], [address] [place] [address] Protein Ql (U) Trace Abnormal Negative [facility] Comment on above: Order Comment: Urine received without preservative. Delays in transport may affect results. Interpret with caution. A clinical correlation is recommended. Performed By: #### 4 8066-5, PINR, 72256-8 #### [facility] ([id number]) [address] [place] [address] #### CBCA, CMP #### [facility] ([id number]) [address], [address] [place] [address] R.B.CELLS 3 Normal 0-5 [facility] Comment on above: Order Comment: Urine received without preservative. Delays in transport may affect results. Interpret with caution. A clinical correlation is recommended. Performed By: #### 4 8066-5, PINR, 97967-5 #### [facility] ([id number]) [address] [place] [address] #### CBCA, CMP #### [facility] ([id number]) [address], [address] [place] [address] Specific gravity (U) [Rel density] 1.028 Normal 1.003-1.035 [facility] Comment on above: Order Comment: Urine received without preservative. Delays in transport may affect results. Interpret with caution. A clinical correlation is recommended. Performed By: #### 4 8066-5, PINR, 32506-9 #### [facility] ([id number]) [address] [place] [address] #### CBCA, CMP #### [facility] ([id number]) [address], [address] [place] [address] SQUAMOUS EPITHELIUM 3 Normal 0-5 [facility] Comment on above: Order Comment: Urine received without preservative. Delays in transport may affect results. Interpret with caution. A clinical correlation is recommended. Performed By: #### 4 8066-5, PINR, 74916-2 #### [facility] ([id number]) [address] [place] [address] #### CBCA, CMP #### [facility] ([id number]) [address], [address] [place] [address] TURBIDITY Hazy Abnormal Clear [facility] Comment on above: Order Comment: Urine received without preservative. Delays in transport may affect results. Interpret with caution. A clinical correlation is recommended. Performed By: #### 4 8066-5, PINR, 93853-0 #### [facility] ([id number]) [address] [place] [address] #### CBCA, CMP #### [facility] ([id number]) [address], [address] [place] [address] UROBILINOGEN 3 eu/dL Abnormal <1.1 eu/dL [facility] Comment on above: Order Comment: Urine received without preservative. Delays in transport may affect results. Interpret with caution. A clinical correlation is recommended. Performed By: #### 4 8066-5, PINR, 82132-8 #### [facility] ([id number]) [address] [place] [address] #### CBCA, CMP #### [facility] ([id number]) [address], [address] [place] [address] W.B.CELLS 3 Normal 0-5 [facility] Comment on above: Order Comment: Urine received without preservative. Delays in transport may affect results. Interpret with caution. A clinical correlation is recommended. Performed By: #### 4 8066-5, PINR, 03966-7 #### [facility] ([id number]) [address] [place] [address] #### CBCA, CMP #### [facility] ([id number]) [address], [address] [place] [address] URINE CULTUREon 07-21-2024 Bacteria identified Cx Nom (U) CULTURE RESULTS 10-50,000 ORGANISMS/mL NORMAL UROGENITAL SOWMYA Normal [facility] Comment on above: Performed By: #### 4 8066-5, PINR, 60286-0 #### [facility] ([id number]) [address] [place] [address]26 #### CBCA, CMP #### [facility] ([id number]) [address], [address] [place] [address] XR KNEE LT 3 VWSon XR KNEE LT 3 VWS XR KNEE LT 3 VWS EXAM: XR KNEE LT 3 VWS CLINICAL INFORMATION: Fall, initial encounter; Acute pain of left knee. COMPARISON: 08/02/2023 FINDINGS: There are changes of interval knee arthroplasty. There is no convincing radiographic evidence for hardware complications or failure. There is no evidence for an acute displaced fracture or malalignment of the knee. IMPRESSION: Status post knee arthroplasty. There is no convincing radiographic evidence for hardware complications or failure. Finalized by Rah Vaz MD on 07/20/2024 8:20 AM Normal [facility] XR Knee - left 3 Viewson EXAM: XR KNEE LT 3 V WS CLINICAL INFORMATION: Fall, initial encounter; Acute pain of left knee. COMPARISON: 08/02/2023 FINDINGS: There are changes of interval knee arthroplasty. There is no convincing radiographic evidence for hardware complications or failure. There is no evidence for an acute displaced fracture or malalignment of the knee. IMPRESSION: Status post knee arthroplasty. There is no convincing radiographic evidence for hardware complications or failure. Finalized by Rah Vaz MD on 07/20/2024 8:20 AM [facility] Rah Vaz MD - 07/20/2024 EXAM: XR KNEE LT 3 VWS CLINICAL INFORMATION: Fall, initial encounter; Acute pain of left knee. COMPARISON: 08/02/2023 FINDINGS: There are changes of interval knee arthroplasty. There is no convincing radiographic evidence for hardware complications or failure. There is no evidence for an acute displaced fracture or malalignment of the knee. IMPRESSION: Status post knee arthroplasty. There is no convincing radiographic evidence for hardware complications or failure. Finalized by Rah Vaz MD on 07/20/2024 8:20 AM [facility] 3 ViewsOrdere d By: Rah Vaz on 07-20-2024 [facility] Work Phone: CBC WITH AUTO DIFFERENTIALon 07-18-2024 BASOPHILS ABSOLUTE COUNT (10*3/UL) BY AUTOMATED COUNT 0.0 10*3/uL Normal 0.0-0.2 [facility] Comment on above: Performed By: #### 3 274-8, 16251-6, PINR #### [facility] ([id number]) [address], [address] [place] [address] BASOPHILS RELATIVE PERCENT BY AUTOMATED COUNT 0.7 % Normal [facility] Comment on above: Performed By: #### 3 274-8, 10410-8, PINR #### [facility] ([id number]) [address], [address] [place] [address] CELLAVISION DIFFERENTIAL TYPE AUTOMATED DIFFERENTIAL Normal [facility] Comment on above: Performed By: #### 3 274-8, 04835-0, PINR #### [facility] ([id number]) [address], [address] [place] [address] Eosinophils (Bld) [#/Vol] 0.0 10*3/uL Normal 0.0-0.4 [facility] Comment on above: Performed By: #### 3 274-8, 14683-2, PINR #### [facility] ([id number]) [address], [facility] [address] [place] [address] EOSINOPHILS RELATIVE PERCENT BY AUTOMATED COUNT 0.8 % Normal [facility] Comment on above: Performed By: #### 3 274-8, 64520-5, PINR #### [facility] ([id number]) [address], [address] [address] Erythrocyte distribution width (RBC) [Ratio] 14.4 % Normal 11.5-15 [facility] Comment on above: Performed By: #### 3 274-8, 86100-6, PINR #### [facility] ([id number]) [address] [address] Hematocrit (Bld) [Volume fraction] 37.7 % Normal 35-47 [facility] Comment on above: Performed By: #### 3 274-8, 73935-7, PINR #### [facility] ([id number]) [address], [address] [address] Hemoglobin (Bld) [Mass/Vol] 12.4 g/dL Normal 11.7-15.5 [facility] Comment on above: Performed By: #### 3 274-8, 58185-4, PINR #### [facility] ([id number]) [address], [address] [address] LYMPHOCYTES ABSOLUTE COUNT (10*3/UL) BY AUTOMATED COUNT 1.6 10*3/uL Normal 1.0-3.5 [facility] Comment on above: Performed By: #### 3 274-8, 09537-1, PINR #### [facility] ([id number]) [address] [address] [place] [address] LYMPHOCYTES RELATIVE PERCENT BY AUTOMATED COUNT 39.8 % Normal [facility] Comment on above: Performed By: #### 3 274-8, 08236-5, PINR #### [facility] ([id number]) [address], [address] [place] [address] MCH (RBC) [Entitic mass] 29.8 pg Normal 27-34 [facility] Comment on above: Performed By: #### 3 274-8, 52791-9, PINR #### [facility] ([id number]) [address], [address] [place] [address] MCHC (RBC) [Mass/Vol] 33.0 g/dL Normal 32-36 [facility] Comment on above: Performed By: #### 3 274-8, 63697-7, PINR #### [facility] ([id number]) [address], [address] [place] [address] MCV (RBC) [Entitic vol] 90 fL Normal 80-100 [facility] Comment on above: Performed By: #### 3 274-8, 00017-1, PINR #### [facility] ([id number]) [address], [address] [place] [address] MONOCYTES ABSOLUTE COUNT (10*3/UL) BY AUTOMATED COUNT 0.4 10*3/uL Normal 0.0-0.9 [facility] Comment on above: Performed By: #### 3 274-8, 17013-6, PINR #### [facility] ([id number]) [address], [address] [place] [address] MONOCYTES RELATIVE PERCENT BY AUTOMATED COUNT 10.6 % Normal [facility] Comment on above: Performed By: #### 3 274-8, 90720-9, PINR #### [facility] ([id number]) [address], [address] [place] [address] NEUTROPHILS ABSOLUTE COUNT BY AUTOMATED COUNT 1.9 10*3/uL Normal 1.5-6.6 [facility] Comment on above: Performed By: #### 3 274-8, 05143-7, PINR #### [facility] ([id number]) [address] [address] NEUTROPHILS RELATIVE PERCENT BY AUTOMATED COUNT 48.1 % Normal [facility] Comment on above: Performed By: #### 3 274-8, 66543-0, PINR #### [facility] ([id number]) [address] [address] Platelet mean volume (Bld) [Entitic vol] 7.2 fL Normal 7-12 [facility] Comment on above: Performed By: #### 3 274-8, 78395-8, PINR #### [facility] ([id number]) [address] [address] Platelets (Bld) [#/Vol] 338 10*3/uL Normal 150-450 [facility] Comment on above: Performed By: #### 3 274-8, 34833-5, PINR #### [facility] ([id number]) [address] [address] RBC COUNT 4.18 X10E12/L Normal 3.8-5.2 [facility] Comment on above: Performed By: #### 3 274-8, 04744-1, PINR #### [facility] ([id number]) [address] [address] WBC (Bld) [#/Vol] 3.9 10*3/uL Low 4-11 [facility] Comment on above: Performed By: #### 3 274-8, 69705-6, PINR #### [facility] ([id number]) [address] [address] CBC auto differentialon 05-0 9-2024 Basophils (Bld) [#/Vol] 0 10*3/uL 0.0 - 0.2 10*3/uL [facility] Basophils/100 WBC (Bld) 0.7 % [facility] Differential cell count method Nom (Bld) AUTOMATED DIFFERENTIAL Pr [facility] Eosinophils (Bld) [#/Vol] 0 10*3/uL 0.0 - 0.4 10*3/uL [facility] Eosinophils/100 WBC (Bld) 0.8 % [facility] Erythrocyte distribution width (RBC) [Ratio] 14.4 % 11.5 - 15 % [facility] Hematocrit (Bld) [Volume fraction] 37.7 % 35 - 47 % [facility] Hemoglobin (Bld) [Mass/Vol] 12.4 g/dL 11.7 - 15.5 g/dL [facility] Interpretation and review of laboratory results Abnormal [facility] Lymphocytes (Bld) [#/Vol] 1.6 10*3/uL 1.0 - 3.5 10*3/uL [facility] Lymphocytes/100 WBC (Bld) 39.8 % [facility] MCH (RBC) [Entitic mass] 29.8 pg 27 - 34 pg [facility] MCHC (RBC) [Mass/Vol] 33 g/dL 32 - 3 6 g/dL [facility] MCV (RBC) [Entitic vol] 90 fL 80 - 100 fL [facility] Monocytes (Bld) [#/Vol] 0.4 10*3/uL 0.0 - 0.9 10*3/uL [facility] Monocytes/100 WBC (Bld) 10.6 % [facility] Neutrophils (Bld) [#/Vol] 1.9 10*3/uL 1.5 - 6.6 10*3/uL [facility] Neutrophils/100 WBC (Bld) 48.1 % [facility] Platelet mean volume (Bld) [Entitic vol] 7.2 fL 7 - 12 fL [facility] Platelets (Bld) [#/Vol] 338 10*3/uL [facility] RBC (Bld) [#/Vol] 4.18 10*6/uL [facility] WBC LM Ql (Sput) 3.9 Low [facility] COMPREHENSIVE METABOLIC PANE Caleb 07-18-2024 Albumin [Mass/Vol] 4.2 g/dL Normal 3.2-5.3 [facility] Comment on above: Performed By: #### 3 0934-4 #### [facility] ([id number]) [address], [address] [place] [address] ALP [Catalytic activity/Vol] 129 U/L Normal 39-130 [facility] Comment on above: Performed By: #### 3 0934-4 #### [facility] ([id number]) [address], [address] [place] [address] ALT [Catalytic activity/Vol] 15 U/L Normal <=31 [facility] Comment on above: Performed By: #### 3 0934-4 #### [facility] ([id number]) [address], [address] [place] [address] Anion gap [Moles/Vol] 9 mmol/L Normal 5-15 [facility] Comment on above: Performed By: #### 3 0934-4 #### [facility] ([id number]) [address], [address] [place] [address] AST [Catalytic activity/Vol] 20 U/L Normal <=41 [facility] Comment on above: Performed By: #### 3 0934-4 #### [facility] ([id number]) [address], [address] [place] [address] Bilirubin [Mass/Vol] 0.4 mg/dL Normal 0.3-1.2 [facility] Comment on above: Performed By: #### 3 0934-4 #### [facility] ([id number]) [address], [address] [place] [address] Calcium [Mass/Vol] 9.4 mg/dL Normal 8.5-10.5 [facility] Comment on above: Performed By: #### 3 0934-4 #### [facility] ([id number]) [address], [address] [place] [address] Chloride [Moles/Vol] 105 mmol/L Normal 98-109 [facility] Comment on above: Performed By: #### 3 0934-4 #### [facility] ([id number]) [address], [address] [place] [address] CO2 [Moles/Vol] 26 mmol/L Normal 22-32 [facility] Comment on above: Performed By: #### 3 0934-4 #### [facility] ([id number]) [address], [address] [place] [address] Creatinine [Mass/Vol] 0.88 mg/dL Normal 0.40-1.00 [facility] Comment on above: Result Comment: METH OD TRACEABLE TO IDMS STANDARD Performed By: #### 3 0934-4 #### [facility] ([id number]) [address], [address] [place] [address] GFR/1.73 sq M.predicted among non-blacks MDRD (S/P/Bld) [Vol rate/Area] 80 mL/min/{1.73_m2} Normal >=60 [facility] Comment on above: Result Comment: Repo rted eGFR is based on the CKD-EPI 2020 equation that does not use a race coefficient. Performed By: #### 3 0934-4 #### [facility] ([id number]) [address], [address] [place] [address] Glucose [Mass/Vol] 90 mg/dL Normal 65-99 [facility] Comment on above: Performed By: #### 3 0934-4 #### [facility] ([id number]) [address], [address] [place] [address] Potassium [Moles/Vol] 3.7 mmol/L Normal 3.5-5.0 [facility] Comment on above: Performed By: #### 3 0934-4 #### [facility] ([id number]) [address], [address] [place] [address] Protein [Mass/Vol] 7.7 g/dL Normal 6.0-8.0 [facility] Comment on above: Performed By: #### 3 0934-4 #### [facility] ([id number]) [address], [address] [place] [address] Sodium [Moles/Vol] 140 mmol/L Normal 134-146 [facility] Comment on above: Performed By: #### 3 0934-4 #### [facility] ([id number]) [address], [address] [place] [address] Urea nitrogen [Mass/Vol] 8 mg/dL Normal 5-23 [facility] Comment on above: Performed By: #### 3 0934-4 #### [facility] ([id number]) [address], [address] [place] [address] Comprehensive metabolic pane caleb 07-18-2024 Albumin [Mass/Vol] 4.2 g/dL 3.2 - 5.3 g/dL [facility] ALP [Catalytic activity/Vol] 129 U/L 39 - 130 U/L [facility] ALT No additional P-5'-P [Catalytic activity/Vol] 15 U/L NINF - 31 U/L [facility] Anion gap [Moles/Vol] 9 mmol/L 5 - 15 mmol/L [facility] AST [Catalytic activity/Vol] 20 U/L NINF - 41 U/L [facility] Bilirubin [Mass/Vol] 0.4 mg/dL 0.3 - 1 .2 mg/dL [facility] Calcium [Mass/Vol] 9.4 mg/dL 8.5 - 10. 5 mg/dL [facility] Chloride [Moles/Vol] 105 mmol/L 98 - 10 9 mmol/L [facility] CO2 [Moles/Vol] 26 mmol/L 22 - 32 mmol/L [facility] Creatinine [Mass/Vol] 0.88 mg/dL 0.40 - 1.00 mg/dL [facility] Comment on above: METHOD TRACEABLE TO IDMS STANDARD EGFR Non-Race Dependent 80 - PINF [facility] Comment on above: Reported eGFR is bas ed on the CKD-EPI 2020 equation that does not use a race coefficient. Glucose [Mass/Vol] 90 mg/dL 65 - 99 mg/dL [facility] Potassium [Moles/Vol] 3.7 mmol/L 3.5 - 5.0 mmol/L [facility] Protein [Mass/Vol] 7.7 g/dL 6.0 - 8.0 g/dL [facility] Sodium [Moles/Vol] 140 mmol/L 134 - 146 mmol/L [facility] Urea nitrogen [Mass/Vol] 8 mg/dL 5 - 23 mg/dL [facility] HEMOGLOBIN A1Con 07-18-2024 Glucose [Mass/Vol] 134 mg/dL Normal [facility] Comment on above: Performed By: #### 3 0934-4 #### [facility] ([id number]) [address] [place] [address], [address] [place] [address] HbA1c (Bld) [Mass fraction] 6.3 % High 4.4-5.6 [facility] Comment on above: Result Comment: ADA Guidelines Result HgbA1c Normal : less than 5.7 % Prediabetes : 5.7 % to 6.4 % Diabetes : > 6.4 % Use with caution in patients with abnormal hemoglobin variants as the half-life of red blood cells and in vivo glycation rates are affected. Performed By: #### 3 0934-4 #### [facility] ([id number]) [address] [place] [address], [address] [place] [address] Hemoglobin A1con 07-18-2024 Average glucose Estimated from glycated hemoglobin (Bld) [Mass/Vol] 134 mg/dL [facility] HbA1c (Bld) [Mass fraction] 6.3 % High 4.4 - 5.6 % [facility] Comment on above: ADA Guidelines Result HgbA1c Normal : less than 5.7 % Prediabetes : 5.7 % to 6.4 % Diabetes : > 6.4 % Use with caution in patients with abnormal hemoglobin variants as the half-life of red blood cells and in vivo glycation rates are affected. Interpretation and review of laboratory results Abnormal [facility] LIPID PROFILEon 07-18-2024 Cholesterol [Mass/Vol] 175 mg/dL Normal 150-200 Pr [facility] Comment on above: Performed By: #### 3 0934-4 #### [facility] ([id number]) [address], [address] [place] [address] Cholesterol in HDL [Mass/Vol] 65 mg/dL Normal >39 [facility] Comment on above: Result Comment: HDL <40 mg/dL - High Risk HDL > or = 40mg/dL- Desirable HDL >60 mg/dL - Negative Risk Performed By: #### 3 0934-4 #### [facility] ([id number]) [address], [address] [place] [address] Cholesterol in LDL [Mass/Vol] 86 mg/dL Normal <130 [facility] Comment on above: Result Comment: LDL <100 mg/dL - Desirable LDL >160 mg/dL - High Risk Performed By: #### 3 0934-4 #### [facility] ([id number]) [address], [address] [place] [address] CHOLESTEROL:HDL 2.7 Normal 1.0-5.0 [facility] Comment on above: Performed By: #### 3 0934-4 #### [facility] ([id number]) [address], [address] [place] [address] Triglyceride [Mass/Vol] 119 mg/dL Normal 27-150 [facility] Comment on above: Performed By: #### 3 0934-4 #### [facility] ([id number]) [address], [address] [place] [address] VERY LOW LIPOPROTEIN 24 mg/dL Normal 0-30 [facility] Comment on above: Performed By: #### 3 0934-4 #### [facility] ([id number]) [address] [facility], [address] [place] [address] Lipid profileon 07-18-2024 Cholesterol [Mass/Vol] 175 mg/dL 150 - 200 mg/dL [facility] Cholesterol in HDL [Mass/Vol] 65 mg/dL 39 - PINF mg/dL [facility] Comment on above: HDL <40 mg/dL - High Risk HDL > or = 40mg/dL- Desirable HDL >60 mg/dL - Negative Risk Cholesterol in HDL [Mass/Vol] 2.7 mg/dL 1.0 - 5.0 [facility] Cholesterol in LDL [Mass/Vol] 86 mg/dL NINF - 130 mg/dL [facility] Comment on above: LDL <100 mg/dL - Ede irable LDL >160 mg/dL - High Risk Cholesterol in VLDL [Mass/Vol] 24 mg/dL 0 - 30 mg/dL [facility] Triglyceride [Mass/Vol] 119 mg/dL 27 - 150 mg/dL [facility] No Panel Informationon 07-18 Interpretation and review of laboratory results Normal [facility] THYROID PROFILE INCLUDES TSH FT4on 07-18-2024 Free T4 [Mass/Vol] 0.89 ng/dL Normal 0.61-1.60 [facility] Comment on above: Performed By: #### 3 0934-4 #### [facility] ([id number]) [address] [facility], [address] [place] [address] TSH 3.07 uIU/mL Normal 0.49-4.67 [facility] Comment on above: Performed By: #### 3 0934-4 #### [facility] ([id number]) [address] [facility], [address] [place] [address] Thyroid profile includes TSH FT4on 07-18-2024 Free T4 [Mass/Vol] 0.89 ng/dL 0.61 - 1. 60 ng/dL [facility] Interpretation and review of laboratory results Normal [facility] TSH Qn 3.07 m[IU]/L [facility] VITAMIN B12on 07-18-2024 Cobalamin (Vitamin B12) [Mass/Vol] 518 pg/mL Normal 180-914 [facility] Comment on above: Performed By: #### 3 0934-4 #### [facility] ([id number]) [address] [facility], [address] [place] [address] VITAMIN D 25 HYDROXYon 07-18 VITAMIN D 25 HYD TOT 25.0 ng/mL Low 30.0-100.0 [facility] Comment on above: Order Comment: Vitam in D status 25 [place] Vitamin D Deficiency <20 ng/mLInsufficiency 20-29 ng/mLSufficiency 30-100 ng/mLToxicity >100 ng/mLNOTE: A pediatric reference range has not been established by the slurry mixer of this kit. The [place] [employer] recommends a Vitamin D level of = or >20ng/mL in infants and children. Performed By: #### 3 0934-4 #### [facility] ([id number]) [address] [facility], [address] [place] [address] Vitamin B12on 07-18-2024 Cobalamin (Vitamin B12) [Mass/Vol] 518 pg/mL 180 - 914 pg/mL [facility] Interpretation and review of laboratory results Normal [facility] Vitamin D 25 hydroxyon 07-18 25-hydroxyvitamin D3 [Mass/Vol] 25 ng/mL Low 30.0 - 100.0 ng/mL [facility] Interpretation and review of laboratory results Abnormal [facility] Vitamin D status 25 [place] Vitamin D -------- Deficiency <20 ng/mL Insufficiency 20-29 ng/mL Sufficiency 30-100 ng/mL Toxicity >100 ng/mL NOTE: A pediatric reference range has not been established by the slurry mixer of this kit. The [place] [employer] recommends a Vitamin D level of = or >20ng/mL in infants and children. [facility] XR Knee - left 3 [facility] Study observation (narrative) [facility] MAMM SCREENING BILATERAL W C gre tutor 03-20-2024 MAMM SCREENING BILATERAL W CAD MAMM SCREENING BILATERAL W CAD NAVDEEP PALMA 1975 [id number] EXAM: MAMM SCREENING BILATERAL W CAD, 03/20/2024 1:50 PM CLINICAL INDICATIONS: Screening, Encounter for screening mammogram for malignant neoplasm of breast COMPARISON: 06/22/2017, 10/25/2013 TECHNIQUE: Bilateral digital tomosynthesis MLO and CC views of the breasts were obtained, with creation of synthetic 2D views. Computer aided detection was utilized. FINDINGS: The breasts are almost entirely fatty. There are no suspicious masses, calcifications, or areas of architectural distortion. IMPRESSION: No mammographic evidence of malignancy. BI-RADS: BI-RADS 1 - Negative RECOMMENDATION: Routine screening mammogram in 1 year. RISK ASSESSMENT: TC Lifetime risk: 5.93%. The patient's reported personal and family medical history was used calculate their Tyrer-Cuzick lifetime risk of malignancy. Scores less than 20% are not considered high risk per ACR guidelines and patient should continue with the above recommendation. Additionally, this patient's reported personal and/or family history of cancer indicates they may benefit from a genetic counseling consultation and possible genetic testing. If patient has not already completed this evaluation, please consider placing a referral to [facility] via indico or . For questions regarding this, please call [phone]. The patient was given information on genetic counseling at the time of exam. Finalized by Eun Yanez MD on 03/20/2024 3:22 PM 1 a MAMM 1 YR Normal [facility] 36on 03-03-2024 36 LVM asking if she ca n come in this morning or by 1:00pm today for her appt. With Dr. Park, as he has a surgery at 2:00 pm. [facility] Telephoneon 03-03-2024 Telephone [id number] Apolonia Palma L 1975 F Date Provider Department Center 03/03/2024 JANEE MONGE MP ORTHO MPORTHO Family History Problem Relation Age of Onset Cancer Mother Family Status - Relation Status Age at Mother Reason for Visit and Comments: Appointment [375] [facility] CBC AND AUTO DIFFon 02-22-20 ABSOLUTE BASOPHIL 0.0 X10E9/L Normal 0.0-0.2 [facility] Comment on above: Performed By: #### 3 274-8, 05616-4, PINR #### [facility] ([id number]) [address], [address] [place] [address] ABSOLUTE NEUTROPHIL 1.6 X10E9/L Normal 1.5-6.6 [facility] Comment on above: Performed By: #### 3 274-8, 06687-3, PINR #### [facility] ([id number]) [address] [facility], [address] [place] [address] Basophils/100 WBC (Bld) 1.0 % Normal [facility] Comment on above: Performed By: #### 3 274-8, 52363-8, PINR #### [facility] ([id number]) [address], [address] [place] [address] Eosinophils (Bld) [#/Vol] 0.0 10*3/uL Normal 0.0-0.4 [facility] Comment on above: Performed By: #### 3 274-8, 17246-8, PINR #### [facility] ([id number]) [address], [address] [place] [address] Eosinophils/100 WBC (Bld) 0.9 % Normal [facility] Comment on above: Performed By: #### 3 274-8, 89324-1, PINR #### [facility] ([id number]) [address], [address] [place] [address] Erythrocyte distribution width (RBC) [Ratio] 16.2 % High 11.5-15.0 [facility] Comment on above: Performed By: #### 3 274-8, 16842-0, PINR #### [facility] ([id number]) [address], [address] [place] [address] Hematocrit (Bld) [Volume fraction] 37.3 % Normal 35-47 [facility] Comment on above: Performed By: #### 3 274-8, 51629-7, PINR #### [facility] ([id number]) [address], [address] [place] [address] Hemoglobin (Bld) [Mass/Vol] 12.4 g/dL Normal 11.7-15.5 [facility] Comment on above: Performed By: #### 3 274-8, 51916-2, PINR #### [facility] ([id number]) [address], [address] [place] [address] Lymphocytes (Bld) [#/Vol] 1.4 10*3/uL Normal 1.0-3.5 [facility] Comment on above: Performed By: #### 3 274-8, 61264-7, PINR #### [facility] ([id number]) [address], [address] [place] [address] Lymphocytes/100 WBC (Bld) 41.5 % Normal [facility] Comment on above: Performed By: #### 3 274-8, 12579-9, PINR #### [facility] ([id number]) [address], [address] [place] [address] MCH (RBC) [Entitic mass] 30.5 pg Normal 27-34 [facility] Comment on above: Performed By: #### 3 274-8, 95663-5, PINR #### [facility] ([id number]) [address], [address] [place] [address] MCHC (RBC) [Mass/Vol] 33.2 g/dL Normal 32-36 [facility] Comment on above: Performed By: #### 3 274-8, 08283-4, PINR #### [facility] ([id number]) [address], [address] [place] [address] MCV (RBC) [Entitic vol] 92 fL Normal 80-100 [facility] Comment on above: Performed By: #### 3 274-8, 06943-0, PINR #### [facility] ([id number]) [address], [address] [place] [address] Monocytes (Bld) [#/Vol] 0.3 10*3/uL Normal 0-0.9 [facility] Comment on above: Performed By: #### 3 274-8, 99481-7, PINR #### [facility] ([id number]) [address], [address] [place] [address] Monocytes/100 WBC (Bld) 8.7 % Normal [facility] Comment on above: Performed By: #### 3 274-8, 59086-7, PINR #### [facility] ([id number]) [address], [address] [place] [address] Neutrophils/100 WBC (Bld) 47.9 % Normal [facility] Comment on above: Performed By: #### 3 274-8, 95705-1, PINR #### [facility] ([id number]) [address], [address] [place] [address] Platelet mean volume (Bld) [Entitic vol] 7.4 fL Normal 7-12 [facility] Comment on above: Performed By: #### 3 274-8, 58735-0, PINR #### [facility] ([id number]) [address], [address] [place] [address] Platelets (Bld) [#/Vol] 328 10*3/uL Normal 150-450 [facility] Comment on above: Performed By: #### 3 274-8, 66904-8, PINR #### [facility] ([id number]) [address], [address] [place] [address] RBC COUNT 4.06 X10E12/L Normal 3.80-5.20 [facility] Comment on above: Performed By: #### 3 274-8, 74151-7, PINR #### [facility] ([id number]) [address], [address] [place] [address] WBC (Bld) [#/Vol] 3.3 10*3/uL Low 4.0-11.0 [facility] Comment on above: Performed By: #### 3 274-8, 77332-9, PINR #### [facility] ([id number]) [address], [address] [place] [address] CBC auto differentialon 02-09 Basophils (Bld) [#/Vol] 0 10*3/uL [facility] Basophils/100 WBC (Bld) 1 % [facility] Eosinophils (Bld) [#/Vol] 0 10*3/uL [facility] Eosinophils/100 WBC (Bld) 0.9 % [facility] Erythrocyte distribution width (RBC) [Ratio] 16.2 % High 11.5 - 15.0 % [facility] Hematocrit (Bld) [Volume fraction] 37.3 % 35 - 47 % [facility] Hemoglobin (Bld) [Mass/Vol] 12.4 g/dL 11.7 - 15.5 g/dL [facility] Interpretation and review of laboratory results Abnormal [facility] Lymphocytes (Bld) [#/Vol] 1.4 10*3/uL [facility] Lymphocytes/100 WBC (Bld) 41.5 % [facility] MCH (RBC) [Entitic mass] 30.5 pg 27 - 34 pg [facility] MCHC (RBC) [Mass/Vol] 33.2 g/dL 32 - 3 6 g/dL [facility] MCV (RBC) [Entitic vol] 92 fL 80 - 100 fL [facility] Monocytes (Bld) [#/Vol] 0.3 10*3/uL [facility] Monocytes/100 WBC (Bld) 8.7 % [facility] Neutrophils (Bld) [#/Vol] 1.6 10*3/uL [facility] Neutrophils/100 WBC (Bld) 47.9 % [facility] Platelet mean volume (Bld) [Entitic vol] 7.4 fL 7 - 12 fL [facility] Platelets (Bld) [#/Vol] 328 10*3/uL [facility] RBC (Bld) [#/Vol] 4.06 10*6/uL [facility] WBC corrected for nucl RBC Auto (Bld) [#/Vol] 3.3 Low [facility] COMPREHENSIVE METABOLIC PANE Caleb 02-22-2024 Albumin [Mass/Vol] 3.8 g/dL Normal 3.2-5.3 [facility] Comment on above: Performed By: #### 3 274-8, 78577-6, PINR #### [facility] ([id number]) [address], [address] [place] [address] ALP [Catalytic activity/Vol] 115 U/L Normal 39-130 [facility] Comment on above: Performed By: #### 3 274-8, 63812-6, PINR #### [facility] ([id number]) [address], [address] [place] [address] ALT [Catalytic activity/Vol] 19 U/L Normal 0-31 [facility] Comment on above: Performed By: #### 3 274-8, 48635-7, PINR #### [facility] ([id number]) [address], [address] [place] [address] Anion gap [Moles/Vol] 10 mmol/L Normal 5-15 [facility] Comment on above: Performed By: #### 3 274-8, 89138-3, PINR #### [facility] ([id number]) [address], [address] [place] [address] AST [Catalytic activity/Vol] 24 U/L Normal 0-41 [facility] Comment on above: Performed By: #### 3 274-8, 03664-4, PINR #### [facility] ([id number]) [address], [address] [place] [address] Bilirubin [Mass/Vol] 0.5 mg/dL Normal 0.3-1.2 [facility] Comment on above: Performed By: #### 3 274-8, 00958-1, PINR #### [facility] ([id number]) [address], [address] [place] [address] Calcium [Mass/Vol] 8.7 mg/dL Normal 8.5-10.5 [facility] Comment on above: Performed By: #### 3 274-8, 29222-1, PINR #### [facility] ([id number]) [address], [address] [place] [address] Chloride [Moles/Vol] 105 mmol/L Normal 98-109 [facility] Comment on above: Performed By: #### 3 274-8, 29174-9, PINR #### [facility] ([id number]) [address], [address] [place] [address] CO2 [Moles/Vol] 29 mmol/L Normal 22-32 [facility] Comment on above: Performed By: #### 3 274-8, 30789-8, PINR #### [facility] ([id number]) [address], [address] [place] [address] Creatinine [Mass/Vol] 0.74 mg/dL Normal 0.40-1.00 [facility] Comment on above: Result Comment: METH OD TRACEABLE TO IDMS STANDARD Performed By: #### 3 274-8, 10719-3, PINR #### [facility] ([id number]) [address], [address] [place] [address] eGFR (CKD-EPI) NON-RACE DEPENDENT >90 Normal >59 [facility] Comment on above: Result Comment: Reported eGFR is based on the CKD-EPI 2020 equation that does not use a race coefficient. Performed By: #### 3 274-8, 83314-1, PINR #### [facility] ([id number]) [address], [address] [place] [address] Glucose [Mass/Vol] 107 mg/dL High 65-99 [facility] Comment on above: Performed By: #### 3 274-8, 01415-2, PINR #### [facility] ([id number]) [address], [address] [place] [address] Potassium [Moles/Vol] 4.0 mmol/L Normal 3.5-5.0 [facility] Comment on above: Performed By: #### 3 274-8, 19167-9, PINR #### [facility] ([id number]) [address], [address] [place] [address] Protein [Mass/Vol] 7.0 g/dL Normal 6.0-8.0 [facility] Comment on above: Performed By: #### 3 274-8, 24230-0, PINR #### [facility] ([id number]) [address], [address] [place] [address] Sodium [Moles/Vol] 144 mmol/L Normal 134-146 [facility] Comment on above: Performed By: #### 3 274-8, 92004-9, PINR #### [facility] ([id number]) [address], [address] [place] [address] Urea nitrogen [Mass/Vol] 6 mg/dL Normal 5-23 [facility] Comment on above: Performed By: #### 3 274-8, 74604-6, PINR #### [facility] ([id number]) [address], [address] [place] [address] Cobalamin (Vitamin B12) [Mas s/Vol]on 02-22-2024 [facility] Comprehensive metabolic pane caleb 02-22-2024 Albumin [Mass/Vol] 3.8 g/dL 3.2 - 5.3 g/dL [facility] ALP [Catalytic activity/Vol] 115 U/L 39 - 130 U/L [facility] ALT No additional P-5'-P [Catalytic activity/Vol] 19 U/L 0 - 31 U/L [facility] Anion gap [Moles/Vol] 10 mmol/L 5 - 15 mmol/L [facility] AST [Catalytic activity/Vol] 24 U/L 0 - 41 U/L [facility] Bilirubin [Mass/Vol] 0.5 mg/dL 0.3 - 1 .2 mg/dL [facility] Calcium [Mass/Vol] 8.7 mg/dL 8.5 - 10. 5 mg/dL [facility] Chloride [Moles/Vol] 105 mmol/L 98 - 10 9 mmol/L [facility] CO2 [Moles/Vol] 29 mmol/L 22 - 32 mmol/L [facility] Creatinine [Mass/Vol] 0.74 mg/dL 0.40 - 1.00 mg/dL [facility] Comment on above: METHOD TRACEABLE TO IDOR STANDARD eGFR (CKD-EPI)non-race dependent - PINF [facility] Comment on above: Reported eGFR is based on the CKD-EPI 2020 equation that does not use a race coefficient. Glucose [Mass/Vol] 107 mg/dL High 65 - 99 mg/dL [facility] Interpretation and review of laboratory results Abnormal [facility] Potassium [Moles/Vol] 4 mmol/L 3.5 - 5.0 mmol/L [facility] Protein [Mass/Vol] 7 g/dL 6.0 - 8.0 g/dL [facility] Sodium [Moles/Vol] 144 mmol/L 134 - 146 mmol/L [facility] Urea nitrogen [Mass/Vol] 6 mg/dL 5 - 23 mg/dL [facility] HGB A1C (GLYCO-HGB)on 2023 Glucose [Mass/Vol] 131 mg/dL Normal [facility] Comment on above: Performed By: #### 3 274-8, 56062-3, PINR #### [facility] ([id number]) [address], [address] [place] [address] HbA1c (Bld) [Mass fraction] 6.2 % High 4.4-5.6 [facility] Comment on above: Result Comment: NOTE ADA Guidelines Result HgbA1c Normal : less than 5.7 % Prediabetes : 5.7 % to 6.4 % Diabetes : > 6.4 % Use with caution in patients with abnormal hemoglobin variants as the half-life of red blood cells and in vivo glycation rates are affected. Performed By: #### 3 274-8, 17695-5, PINR #### [facility] ([id number]) [address], [address] [place] [address] Hemoglobin A1con 02-22-2024 Average glucose Estimated from glycated hemoglobin (Bld) [Mass/Vol] 131 mg/dL [facility] HbA1c (Bld) [Mass fraction] 6.2 % High 4.4 - 5.6 % [facility] Comment on above: NOTE ADA Guidelines Result HgbA1c Normal : less than 5.7 % Prediabetes : 5.7 % to 6.4 % Diabetes : > 6.4 % Use with caution in patients with abnormal hemoglobin variants as the half-life of red blood cells and in vivo glycation rates are affected. Interpretation and review of laboratory results Abnormal [facility] SUPERFICIAL WOUND CULTUREon 02-22-2024 Bacteria identified Aer cx Nom (Wound) SPECIMEN NOTES BOIL GRAM STAIN >25 WHITE BLOOD CELLS/LPF 0 to 1 SQUAMOUS EPITHELIAL CELLS/LPF FEW GRAM POSITIVE COCCI FEW GRAM POSITIVE RODS CULTURE RESULTS MANY PROTEUS MIRABILIS MANY STAPHYLOCOCCUS AUREUS [ S = SUSCEPTIBLE R = RESISTANT I = INTERMEDIATE S-DO = Susceptible-dose dependent NS = Non-suscceptible NO = No Interpretation ] Organism: PROTEUS MIRABILIS Antibiotic Interpretation ALESHA Status AMPICILLIN S <=2 F AMP/SULBACTAM S <=2/1 F CEFAZOLIN UNK <=4 F CLSI interpretive criteria for nonurinary isolates are as follows: <=2 Susceptible, 4 Intermediate, Resistant >=8. Contact Microbiology laboratory if further susceptibility testing for Cefazolin is required. CEFTRIAXONE S <=0.25 F CIPROFLOXACIN R 2 F GENTAMICIN S <=1 F LEVOFLOXACIN R 2 F PIPERACIL/TAZOBACTAM S <=4 F TOBRAMYCIN S <=1 F [ S = SUSCEPTIBLE R = RESISTANT I = INTERMEDIATE S-DO = Susceptible-dose dependent NS = Non-suscceptible NO = No Interpretation ] Organism: STAPHYLOCOCCUS AUREUS Antibiotic Interpretation ALESHA Status CEFAZOLIN S F CLINDAMYCIN S 0.25 F OXACILLIN S 0.5 F TRIMETH/SULFAMETHOXAZO LE S <=.5/9.5 F VANCOMYCIN S <=0.5 F DOXYCYCLINE S <=0.5 F Susceptible [facility] Comment on above: Performed By: #### 3 274-8, 33405-8, PINR #### [facility] ([id number]) [address] [address], [address] [place] [address] THYROID PROFILEon 02-22-2024 Free T4 [Mass/Vol] 0.82 ng/dL Normal 0.61-1.60 [facility] Comment on above: Result Comment: NEW REFERENCE RANGE FOR PEDIATRIC PATIENTS Performed By: #### 3 274-8, 62832-0, PINR #### [facility] ([id number]) [address], [address] [place] [address] TSH 0.87 uIU/mL Normal 0.49-4.67 [facility] Comment on above: Result Comment: NEW REFERENCE RANGE FOR PEDIATRIC PATIENTS Performed By: #### 3 274-8, 77852-1, PINR #### [facility] ([id number]) [address], [address] [place] [address] Thyroid profile includes TSH FT4on 02-22-2024 Free T4 [Mass/Vol] 0.82 ng/dL 0.61 - 1. 60 ng/dL [facility] Comment on above: NEW REFERENCE RANGE FOR PEDIATRIC PATIENTS TSH Qn 0.87 m[IU]/L [facility] Comment on above: NEW REFERENCE RANGE FOR PEDIATRIC PATIENTS [facility] URINALYSISon 02-22-2024 Bilirubin Ql (U) Negative Normal NEG [facility] Comment on above: Performed By: #### 3 274-8, 28714-8, PINR #### [facility] ([id number]) [address], [address] [place] [address] BLOOD/HGB Negative Normal NEG [facility] Comment on above: Performed By: #### 3 274-8, 07178-4, PINR #### [facility] ([id number]) [address], [address] [place] [address] Color (U) YELLOW Normal YELLOW [facility] Comment on above: Performed By: #### 3 274-8, 78740-7, PINR #### [facility] ([id number]) [address], [address] [place] [address] Glucose Ql (U) Negative Normal NEG [facility] Comment on above: Performed By: #### 3 274-8, 53961-0, PINR #### [facility] ([id number]) [address], [address] [place] [address] Ketones Ql (U) Negative Normal NEG [facility] Comment on above: Performed By: #### 3 274-8, 10568-3, PINR #### [facility] ([id number]) [address], [address] [place] [address] Leukocyte esterase Test strip Ql (U) Negative Normal NEG [facility] Comment on above: Performed By: #### 3 274-8, 32445-4, PINR #### [facility] ([id number]) [address], [address] [place] [address] MUCOUS PRESENT Abnormal NONE [facility] Comment on above: Performed By: #### 3 274-8, 94107-7, PINR #### [facility] ([id number]) [address], [address] [place] [address] Nitrite Ql (U) Negative Normal NEG [facility] Comment on above: Performed By: #### 3 274-8, 24741-6, PINR #### [facility] ([id number]) [address], [address] [place] [address] pH (U) 7.0 [pH] Normal 5.0-8.5 [facility] Comment on above: Performed By: #### 3 274-8, 62570-2, PINR #### [facility] ([id number]) [address], [address] [place] [address] Protein Ql (U) Trace Abnormal NEG [facility] Comment on above: Performed By: #### 3 274-8, 91694-5, PINR #### [facility] ([id number]) [address], [address] [place] [address] R.B.CELLS <1 Normal 0-5 [facility] Comment on above: Performed By: #### 3 274-8, 30280-7, PINR #### [facility] ([id number]) [address], [address] [place] [address] Specific gravity (U) [Rel density] 1.021 Normal 1.003-1.035 [facility] Comment on above: Performed By: #### 3 274-8, 26579-0, PINR #### [facility] ([id number]) [address], [address] [place] [address] SQUAMOUS EPITHELIUM 1 /hpf Normal 0-5 [facility] Comment on above: Performed By: #### 3 274-8, 44332-5, PINR #### [facility] ([id number]) [address], [address] [address] TURBIDITY CLEAR Normal CLEAR [facility] Comment on above: Performed By: #### 3 274-8, 00932-8, PINR #### [facility] ([id number]) [address], [address] [place] [address] Urobilinogen (U) [Mass/Vol] mg/dL Normal <1.1 [facility] Comment on above: Performed By: #### 3 274-8, 74131-4, PINR #### [facility] ([id number]) [address], [address] [address] W.B.CELLS 2 /hpf Normal 0-5 [facility] Comment on above: Performed By: #### 3 274-8, 18351-9, PINR #### [facility] ([id number]) [address], [address] [address] URINE CULTUREon 02-22-2024 Bacteria identified Cx Nom (U) CULTURE RESULTS 10-50,000 ORGANISMS/mL NORMAL UROGENITAL SOWMYA Normal [facility] Comment on above: Performed By: #### 3 274-8, 51185-5, PINR #### [facility] ([id number]) [address], [address] [place] [address] Urinalysis (clean catch)on 1 04-24-2023 Bilirubin Ql (U) Negative Negative^Ne gative [facility] Color (U) YELLOW YELLOW^YELL OW [facility] Epithelial cells Auto (Urine sed) [#/Area] 1 [facility] Glucose (U) [Mass/Vol] Negative Negat justice^Ne gative mg/dL [facility] Hemoglobin Auto test strip Ql (U) Negative Negative^Ne gative [facility] Interpretation and review of laboratory results Abnormal [facility] Ketones (U) [Mass/Vol] Negative Negat justice^Ne gative mg/dL [facility] Leukocyte esterase Auto test strip Ql (U) Negative Negative^Ne gative [facility] Mucus Ql (Urine sed) PRESENT Abnormal NONE^NONE [facility] Nitrite Auto test strip Ql (U) Negative Negative^Ne gative [facility] pH (U) 7 [pH] 5.0 - 8.5 [facility] Protein (U) [Mass/Vol] Trace Abnormal Negat justice^Ne gative mg/dL [facility] RBC Auto (Urine sed) [#/Area] [facility] Specific gravity Refractometry automated (U) [Rel density] 1.021 1.003 - 1.035 [facility] Turbidity Ql (U) CLEAR CLEAR^CLEAR [facility] Urobilinogen Qn (U) NINF [facility] WBC Auto (Urine sed) [#/Area] 2 [facility] VITAMIN B12on 02-22-2024 Cobalamin (Vitamin B12) [Mass/Vol] 490 pg/mL Normal 180-914 [facility] Comment on above: Performed By: #### 3 274-8, 37959-0, PINR #### [facility] ([id number]) [address], [address] [place] [address] Vitamin B12on 02-22-2024 Cobalamin (Vitamin B12) [Mass/Vol] 490 pg/mL 180 - 914 pg/mL [facility] Vitamin D 25 hydroxyon 02-21 Vitamin D+Metabolites [Mass/Vol] 30.6 ng/mL 30 - 100 ng/mL [facility] Comment on above: Vitamin D status 25 [place] Vitamin D Deficiency <20 ng/mL Insufficiency 20-29 ng/mL Sufficiency 30-100 ng/mL Toxicity >100 ng/mL NOTE: A pediatric reference range has not been established by the slurry mixer of this kit. The [employer] [employer] recommends a Vitamin D level of = or >20ng/mL in infants and children. Vitamin D+Metabolites [Mass/ Vol]on 02-22-2024 [facility] VITAMIN D 25 HYD TOT 30.6 ng/mL Normal 30-100 [facility] Comment on above: Result Comment: Vitamin D status 25 [place] Vitamin D Deficiency <20 ng/mL Insufficiency 20-29 ng/mL Sufficiency 30-100 ng/mL Toxicity >100 ng/mL NOTE: A pediatric reference range has not been established by the slurry mixer of this kit. The [place] [employer] recommends a Vitamin D level of = or >20ng/mL in infants and children. Performed By: #### 3 274-8, 37212-7, PINR #### [facility] ([id number]) [address] [place] [address], [address] [place] [address] PAP IG, APT HPV RFX 16/18,45 on 02-18-2024 HPV APTIMA Positive Abnormal Negative [facility] Comment on above: This nucleic acid am plification test detects fourteen high- risk HPV types (16,18,31,33,35,39,45,51,52,56,58,59,66,68) without differentiation. Interpretation and review of laboratory results Abnormal [facility] PAP IG (IMAGE GUIDED) Note . [facility] Comment on above: TESTS RESULT FLAG UN ITS REF RANGE LAB Clinician Provided Cytology Information Source.............Vagina No. of containers..01 ThinPrep Vial DIAGNOSIS: 01 NEGATIVE FOR INTRAEPITHELIAL LESION OR MALIGNANCY. Specimen adequacy: 01 Satisfactory for evaluation. Performed by: 01 Zena Orosco, Multimedia Educational Specialist ([facility]) . 01 Note: Note 01 The Pap smear is a screening test designed to aid in the detection of premalignant and malignant conditions of the uterine cervix. It is not a diagnostic procedure and should not be used as the sole means of detecting cervical cancer. Both false-positive and false-negative reports do occur. Test Methodology: Note 01 This liquid based ThinPrep(R) pap test was screened with the use of an image guided system. HPV Genotype Reflex Note 01 Criteria met, see HPV Genotype results. FLAG LEGEND: L-Low Normal,H-High Normal,LL-Alert Low,HH-Alert High <-Panic Low,>-Panic High,A-Abnormal,AA-Critical Abnormal Performed at: 01 WB [facility] [address] [place] [address] Jeannette Priest MD, [employer] HPV GENOTYPE 16 Negative Negative [facility] HPV GENOTYPE 18,45 Positive Abnormal Negative NO [facility] Comment on above: Performed at: WB - [facility] [address] [id number] End Polisher: Jeannette Priest MD, Phone: [phone] Performed at: =G - [facility] [address] [id number] End Polisher: Jeannette Priest MD, Phone: [phone] [facility] PET CT SKULL TO THIGHon 01-[address] SKULL TO THIGH PET CT SKULL TO [facility] PET CT SKULL TO THIGH CLINICAL HISTORY:Right [...] Cruz MD on 01/28/2024 7:55 AM Normal [facility] CBC AND AUTO DIFFon 12-14-19 ABSOLUTE BASOPHIL 0.0 X10E9/L Normal 0.0-0.2 [facility] Comment on above: Performed By: #### 3 274-8, 93669-4, PINR #### [facility] ([id number]) [address], [address] [place] [address] ABSOLUTE NEUTROPHIL 1.7 X10E9/L Normal 1.5-6.6 [facility] Comment on above: Performed By: #### 3 274-8, 32475-5, PINR #### [facility] ([id number]) [address], [address] [place] [address] Basophils/100 WBC (Bld) 1.5 % Normal [facility] Comment on above: Performed By: #### 3 274-8, 76911-4, PINR #### [facility] ([id number]) [address], [facility] [address] [place] [address] Eosinophils (Bld) [#/Vol] 0.0 10*3/uL Normal 0.0-0.4 [facility] Comment on above: Performed By: #### 3 274-8, 59926-5, PINR #### [facility] ([id number]) [address], [facility] [address] [place] [address] Eosinophils/100 WBC (Bld) 0.5 % Normal [facility] Comment on above: Performed By: #### 3 274-8, 07436-4, PINR #### [facility] ([id number]) [address], [facility] [address] [place] [address] Erythrocyte distribution width (RBC) [Ratio] 15.7 % High 11.5-15.0 [facility] Comment on above: Performed By: #### 3 274-8, 17346-8, PINR #### [facility] ([id number]) [address], [facility] [address] [place] [address] Hematocrit (Bld) [Volume fraction] 32.7 % Low 35-47 [facility] Comment on above: Performed By: #### 3 274-8, 36627-0, PINR #### [facility] ([id number]) [address], [facility] [address] [place] [address] Hemoglobin (Bld) [Mass/Vol] 10.9 g/dL Low 11.7-15.5 [facility] Comment on above: Performed By: #### 3 274-8, 76737-9, PINR #### [facility] ([id number]) [address], [address] [place] [address] Lymphocytes (Bld) [#/Vol] 1.1 10*3/uL Normal 1.0-3.5 [facility] Comment on above: Performed By: #### 3 274-8, 09274-5, PINR #### [facility] ([id number]) [address] [address] Lymphocytes/100 WBC (Bld) 33.2 % Normal [facility] Comment on above: Performed By: #### 3 274-8, 97652-6, PINR #### [facility] ([id number]) [address] [address] MCH (RBC) [Entitic mass] 31.0 pg Normal 27-34 [facility] Comment on above: Performed By: #### 3 274-8, 82426-7, PINR #### [facility] ([id number]) [address], [address] [address] MCHC (RBC) [Mass/Vol] 33.4 g/dL Normal 32-36 [facility] Comment on above: Performed By: #### 3 274-8, 90873-6, PINR #### [facility] ([id number]) [address], [address] [address] MCV (RBC) [Entitic vol] 93 fL Normal 80-100 [facility] Comment on above: Performed By: #### 3 274-8, 72474-9, PINR #### [facility] ([id number]) [address] [address] Monocytes (Bld) [#/Vol] 0.4 10*3/uL Normal 0-0.9 [facility] Comment on above: Performed By: #### 3 274-8, 38944-1, PINR #### [facility] ([id number]) [address], [address] [address] Monocytes/100 WBC (Bld) 11.6 % Normal [facility] Comment on above: Performed By: #### 3 274-8, 21340-6, PINR #### [facility] ([id number]) [address], [facility] [address] [place] [address] Neutrophils/100 WBC (Bld) 53.2 % Normal [facility] Comment on above: Performed By: #### 3 274-8, 35872-4, PINR #### [facility] ([id number]) [address], [facility] [address] [place] [address] Platelet mean volume (Bld) [Entitic vol] 6.7 fL Low 7-12 [facility] Comment on above: Performed By: #### 3 274-8, 58962-1, PINR #### [facility] ([id number]) [address], [facility] [address] [place] [address] Platelets (Bld) [#/Vol] 342 10*3/uL Normal 150-450 [facility] Comment on above: Performed By: #### 3 274-8, 43052-6, PINR #### [facility] ([id number]) [address], [facility] [address] [place] [address] RBC COUNT 3.53 X10E12/L Low 3.80-5.20 [facility] Comment on above: Performed By: #### 3 274-8, 25907-1, PINR #### [facility] ([id number]) [address], [facility] [address] [place] [address] WBC (Bld) [#/Vol] 3.3 10*3/uL Low 4.0-11.0 [facility] Comment on above: Performed By: #### 3 274-8, 95144-7, PINR #### [facility] ([id number]) [address], [address] [place] [address] COMPREHENSIVE METABOLIC PANE Caleb 10-04-2024 Albumin [Mass/Vol] 3.5 g/dL Normal 3.2-5.3 [facility] Comment on above: Performed By: #### 3 274-8, 12632-4, PINR #### [facility] ([id number]) [address], [address] [place] [address] ALP [Catalytic activity/Vol] 100 U/L Normal 39-130 [facility] Comment on above: Performed By: #### 3 274-8, 46536-7, PINR #### [facility] ([id number]) [address], [address] [place] [address] ALT [Catalytic activity/Vol] 19 U/L Normal 0-31 [facility] Comment on above: Performed By: #### 3 274-8, 52439-9, PINR #### [facility] ([id number]) [address], [address] [place] [address] Anion gap [Moles/Vol] 8 mmol/L Normal 5-15 [facility] Comment on above: Performed By: #### 3 274-8, 85543-3, PINR #### [facility] ([id number]) [address], [address] [place] [address] AST [Catalytic activity/Vol] 28 U/L Normal 0-41 [facility] Comment on above: Performed By: #### 3 274-8, 33610-4, PINR #### [facility] ([id number]) [address], [address] [place] [address] Bilirubin [Mass/Vol] 0.6 mg/dL Normal 0.3-1.2 [facility] Comment on above: Performed By: #### 3 274-8, 63882-7, PINR #### [facility] ([id number]) [address], [address] [place] [address] Calcium [Mass/Vol] 8.3 mg/dL Low 8.5-10.5 [facility] Comment on above: Performed By: #### 3 274-8, 18121-4, PINR #### [facility] ([id number]) [address], [address] [place] [address] Chloride [Moles/Vol] 107 mmol/L Normal 98-109 [facility] Comment on above: Performed By: #### 3 274-8, 11312-7, PINR #### [facility] ([id number]) [address], [address] [place] [address] CO2 [Moles/Vol] 23 mmol/L Normal 22-32 [facility] Comment on above: Performed By: #### 3 274-8, 57790-8, PINR #### [facility] ([id number]) [address], [address] [place] [address] Creatinine [Mass/Vol] 0.59 mg/dL Normal 0.40-1.00 [facility] Comment on above: Result Comment: METH OD TRACEABLE TO IDMS STANDARD Performed By: #### 3 274-8, 05591-1, PINR #### [facility] ([id number]) [address], [address] [place] [address] eGFR (CKD-EPI) NON-RACE DEPENDENT >90 Normal >59 [facility] Comment on above: Result Comment: Reported eGFR is based on the CKD-EPI 2021 equation that does not use a race coefficient. Performed By: #### 3 274-8, 36403-3, PINR #### [facility] ([id number]) [address], [address] [place] [address] Glucose [Mass/Vol] 98 mg/dL Normal 65-99 [facility] Comment on above: Performed By: #### 3 274-8, 99414-1, PINR #### [facility] ([id number]) [address], [address] [place] [address] Potassium [Moles/Vol] 3.6 mmol/L Normal 3.5-5.0 [facility] Comment on above: Performed By: #### 3 274-8, 10113-0, PINR #### [facility] ([id number]) [address], [address] [place] [address] Protein [Mass/Vol] 6.5 g/dL Normal 6.0-8.0 [facility] Comment on above: Performed By: #### 3 274-8, 55648-9, PINR #### [facility] ([id number]) [address], [address] [place] [address] Sodium [Moles/Vol] 138 mmol/L Normal 134-146 [facility] Comment on above: Performed By: #### 3 274-8, 56132-7, PINR #### [facility] ([id number]) [address], [address] [place] [address] Urea nitrogen [Mass/Vol] 3 mg/dL Low 5-23 [facility] Comment on above: Performed By: #### 3 274-8, 05439-3, PINR #### [facility] ([id number]) [address], [facility] [address] [place] [address] MAGNESIUMon 12-14-2023 Magnesium [Mass/Vol] 1.7 mg/dL Low 1.8-2.6 [facility] Comment on above: Performed By: #### 3 274-8, 10824-8, PINR #### [facility] ([id number]) [address], [address] [place] [address] 1,3 beta glucan (S) [Mass/Vo l]on 12-13-2023 Fungitell Qualitative Result Negative Normal Negative [facility] Comment on above: Result Comment: NOTE No (1, 3) Cgfd-N-Idmvlp detected. This assay does not detect certain fungi, including Cryptococcus species, which produce very low levels of (1, 3) Yphj-G-Snzoaw (BDG) and the Mucorales (e.g., Lichthemia, Mucor and Rhizopus), which are not known to produce BDG. Additionally, the yeast phase of Blastomyces dermatitidis produces little BDG and may not be detected by this assay. ADDITIONAL INFORMATION This assay was performed using the FDA-cleared Fungitell Assay ([facility], [place], [place], [place]), a kinetic SHERI based on modification of the Limulus Amebocyte Lysate pathway. Test Performed by: [facility] [address] [place] [address] End Polisher: Raoul Marin Ph.D.; CLIA# [id number] Performed By: #### 3 274-8, 80791-7, PINR #### [facility] ([id number]) [address] [facility], [address] [place] [address] Fungitell Quantitative Value <31 Normal <60 pg/mL [facility] Comment on above: Performed By: #### 3 274-8, 24825-0, PINR #### [facility] ([id number]) [address] [facility], [address] [place] [address] BASIC METABOLIC PANLon 12-12 Anion gap [Moles/Vol] 8 mmol/L Normal 5-15 [facility] Comment on above: Performed By: #### 4 8066-5, PINR, 07782-3 #### [facility] ([id number]) [address] [place] [address], [place] [address] #### CBCA, CMP #### [facility] ([id number]) [address], [address] [place] [address] Calcium [Mass/Vol] 8.6 mg/dL Normal 8.5-10.5 [facility] Comment on above: Performed By: #### 4 8066-5, PINR, 42028-9 #### [facility] ([id number]) [address] [place] [address] #### CBCA, CMP #### [facility] ([id number]) [address], [address] [place] [address] Chloride [Moles/Vol] 108 mmol/L Normal 98-109 [facility] Comment on above: Performed By: #### 4 8066-5, PINR, 72362-2 #### [facility] ([id number]) [address] [place] [address] #### CBCA, CMP #### [facility] ([id number]) [address] [facility], [address] [place] [address] CO2 [Moles/Vol] 21 mmol/L Low 22-32 [facility] Comment on above: Performed By: #### 4 8066-5, PINR, 97551-7 #### [facility] ([id number]) [address] [place] [address] #### CBCA, CMP #### [facility] ([id number]) [address] [facility], [address] [place] [address] Creatinine [Mass/Vol] 0.76 mg/dL Normal 0.40-1.00 [facility] Comment on above: Result Comment: METH OD TRACEABLE TO IDMS STANDARD Performed By: #### 4 8066-5, PINR, 59638-1 #### [facility] ([id number]) [address] [place] [address] #### CBCA, CMP #### [facility] ([id number]) [address], [address] [place] [address] eGFR (CKD-EPI) NON-RACE DEPENDENT >90 Normal >59 [facility] Comment on above: Result Comment: Reported eGFR is based on the CKD-EPI 2020 equation that does not use a race coefficient. Performed By: #### 4 8066-5, PINR, 04899-1 #### [facility] ([id number]) [address] [place] [address] #### CBCA, CMP #### [facility] ([id number]) [address], [address] [place] [address] Glucose [Mass/Vol] 111 mg/dL High 65-99 [facility] Comment on above: Performed By: #### 4 8066-5, PINR, 85024-1 #### [facility] ([id number]) [address] [place] [address] #### CBCA, CMP #### [facility] ([id number]) [address], [address] [place] [address] Potassium [Moles/Vol] 3.7 mmol/L Normal 3.5-5.0 [facility] Comment on above: Performed By: #### 4 8066-5, PINR, 62094-3 #### [facility] ([id number]) [address] [place] [address] #### CBCA, CMP #### [facility] ([id number]) [address], [address] [place] [address] Sodium [Moles/Vol] 137 mmol/L Normal 134-146 [facility] Comment on above: Performed By: #### 4 8066-5, PINR, 26687-2 #### [facility] ([id number]) [address] [place] [address] #### CBCA, CMP #### [facility] ([id number]) [address], [address] [place] [address] Urea nitrogen [Mass/Vol] 6 mg/dL Normal 5-23 [facility] Comment on above: Performed By: #### 4 8066-5, PINR, 62685-0 #### [facility] ([id number]) [address] [place] [address] #### CBCA, CMP #### [facility] ([id number]) [address], [address] [place] [address] CBC AND AUTO DIFFon 12-13-19 24 ABSOLUTE BASOPHIL 0.1 X10E9/L Normal 0.0-0.2 [facility] Comment on above: Performed By: #### 4 8066-5, PINR, 39783-2 #### [facility] ([id number]) [address] [place] [address] #### CBCA, CMP #### [facility] ([id number]) [address], [address] [place] [address] ABSOLUTE NEUTROPHIL 1.8 X10E9/L Normal 1.5-6.6 [facility] Comment on above: Performed By: #### 4 8066-5, PINR, 08268-5 #### [facility] ([id number]) [address] [place] [address] #### CBCA, CMP #### [facility] ([id number]) [address], [address] [place] [address] Basophils/100 WBC (Bld) 1.6 % Normal [facility] Comment on above: Performed By: #### 4 8066-5, PINR, 42147-4 #### [facility] ([id number]) [address] [place] [address] #### CBCA, CMP #### [facility] ([id number]) [address], [address] [place] [address] Eosinophils (Bld) [#/Vol] 0.0 10*3/uL Normal 0.0-0.4 [facility] Comment on above: Performed By: #### 4 8066-5, PINR, 00266-4 #### [facility] ([id number]) [address] [place] [address] #### CBCA, CMP #### [facility] ([id number]) [address], [address] [place] [address] Eosinophils/100 WBC (Bld) 0.7 % Normal [facility] Comment on above: Performed By: #### 4 8066-5, PINR, 12844-1 #### [facility] ([id number]) [address] [place] [address] #### CBCA, CMP #### [facility] ([id number]) [address], [address] [place] [address] Erythrocyte distribution width (RBC) [Ratio] 15.9 % High 11.5-15.0 [facility] Comment on above: Performed By: #### 4 8066-5, PINR, 14544-4 #### [facility] ([id number]) [address] [place] [address] #### CBCA, CMP #### [facility] ([id number]) [address], [address] [place] [address] Hematocrit (Bld) [Volume fraction] 34.0 % Low 35-47 [facility] Comment on above: Performed By: #### 4 8066-5, PINR, 84814-2 #### [facility] ([id number]) [address] [place] [address] #### CBCA, CMP #### [facility] ([id number]) [address], [address] [place] [address] Hemoglobin (Bld) [Mass/Vol] 11.3 g/dL Low 11.7-15.5 [facility] Comment on above: Performed By: #### 4 8066-5, PINR, 46462-6 #### [facility] ([id number]) [address] [place] [address] #### CBCA, CMP #### [facility] ([id number]) [address], [address] [place] [address] Lymphocytes (Bld) [#/Vol] 1.6 10*3/uL Normal 1.0-3.5 [facility] Comment on above: Performed By: #### 4 8066-5, PINR, 02521-5 #### [facility] ([id number]) [address] [place] [address] #### CBCA, CMP #### [facility] ([id number]) [address], [address] [place] [address] Lymphocytes/100 WBC (Bld) 41.5 % Normal [facility] Comment on above: Performed By: #### 4 8066-5, PINR, 30434-8 #### [facility] ([id number]) [address] [place] [address] #### CBCA, CMP #### [facility] ([id number]) [address], [address] [place] [address] MCH (RBC) [Entitic mass] 30.9 pg Normal 27-34 [facility] Comment on above: Performed By: #### 4 8066-5, PINR, 83060-9 #### [facility] ([id number]) [address] [place] [address] #### CBCA, CMP #### [facility] ([id number]) [address], [address] [place] [address] MCHC (RBC) [Mass/Vol] 33.3 g/dL Normal 32-36 [facility] Comment on above: Performed By: #### 4 8066-5, PINR, 95507-9 #### [facility] ([id number]) [address] [place] [address] #### CBCA, CMP #### [facility] ([id number]) [address], [address] [place] [address] MCV (RBC) [Entitic vol] 93 fL Normal 80-100 [facility] Comment on above: Performed By: #### 4 8066-5, PINR, 01079-4 #### [facility] ([id number]) [address] [place] [address] #### CBCA, CMP #### [facility] ([id number]) [address], [address] [place] [address] Monocytes (Bld) [#/Vol] 0.4 10*3/uL Normal 0-0.9 [facility] Comment on above: Performed By: #### 4 8066-5, PINR, 12090-4 #### [facility] ([id number]) [address] [place] [address] #### CBCA, CMP #### [facility] ([id number]) [address], [address] [place] [address] Monocytes/100 WBC (Bld) 10.0 % Normal [facility] Comment on above: Performed By: #### 4 8066-5, PINR, 49976-1 #### [facility] ([id number]) [address] [place] [address] #### CBCA, CMP #### [facility] ([id number]) [address], [address] [place] [address] Neutrophils/100 WBC (Bld) 46.2 % Normal [facility] Comment on above: Performed By: #### 4 8066-5, PINR, 88712-7 #### [facility] ([id number]) [address] [place] [address] #### CBCA, CMP #### [facility] ([id number]) [address], [address] [place] [address] Platelet mean volume (Bld) [Entitic vol] 7.4 fL Normal 7-12 [facility] Comment on above: Performed By: #### 4 8066-5, PINR, 08857-5 #### [facility] ([id number]) [address] [place] [address] #### CBCA, CMP #### [facility] ([id number]) [address], [address] [place] [address] Platelets (Bld) [#/Vol] 389 10*3/uL Normal 150-450 [facility] Comment on above: Performed By: #### 4 8066-5, PINR, 77896-8 #### [facility] ([id number]) [address] [place] [address] #### CBCA, CMP #### [facility] ([id number]) [address], [address] [place] [address] RBC COUNT 3.67 X10E12/L Low 3.80-5.20 [facility] Comment on above: Performed By: #### 4 8066-5, PINR, 43845-0 #### [facility] ([id number]) [address] [place] [address] #### CBCA, CMP #### [facility] ([id number]) [address], [address] [place] [address] WBC (Bld) [#/Vol] 3.9 10*3/uL Low 4.0-11.0 [facility] Comment on above: Performed By: #### 4 8066-5, PINR, 68377-4 #### [facility] ([id number]) [address] [facility], [place] [address] #### CBCA, CMP #### [facility] ([id number]) [address] [place] [address], [address] [place] [address] COCCIDIOIDES AB REFLEXIVE JAZMYN Bhatia 12-13-2023 COCCIDIOIDES AB,IGG 0.4 IV Normal <=0.9 [facility] Comment on above: Result Comment: NOTE INTERPRETIVE [...] in the SHERI tests. Performed By: #### 3 274-8, 72014-5, PINR #### [facility] ([id number]) [address] [facility], [address] [place] [address] COCCIDIOIDES IGM 0.1 IV Normal <=0.9 [facility] Comment on above: Result Comment: NOTE [...] represented in the SHERI tests. Performed By: [facility] [address] [place] [address] Community Service Specialist: Critsopher Amos MD, PhD CLIA Number: [id number] Performed By: #### 3 274-8, 18029-5, PINR #### [facility] ([id number]) [address] [facility], [address] [place] [address] Heparin unfractionated Chrom ogenic method Qn (PPP)on 12-13-2023 ANTI XA UFH 1.18 IU/mL Critically high 0.30-0.70 [facility] Comment on above: Result Comment: Opti mal time for testing is 6 hrs post dosage This test is specific for monitoring patients on UFH, and is not recommended for use with other Anti-Xa medications. Performed By: #### 4 8066-5, PINR, 78406-3 #### [facility] ([id number]) [address] [place] [address], [place] [address] #### CBCA, CMP #### [facility] ([id number]) [address] [facility], [address] [place] [address] Histoplasma/Blastomyces Agon 12-13-2023 Histo/Blasto Ag Result Not detected Normal Not Detected [facility] Comment on above: Result Comment: NOTE No antigen from Histoplasma or Blastomyces detected. False negative results may occur depending on extent of disease, and/or site of infection. Repeat testing on a new specimen if clinically indicated. Performed By: #### 3 274-8, 13937-4, PINR #### [facility] ([id number]) [address] [facility], [address] [place] [address] Histo/Blasto Ag Value Not detected Normal [facility] Comment on above: Result Comment: NOTE ADDITIONAL INFORMATION This test was developed and its performance characteristics determined by [facility] in a manner consistent with CLIA requirements. This test has not been cleared or approved by the U.S. Food and Drug Administration. Test Performed by: [facility] - [place] [id number] End Polisher: Raoul Marin Ph.D.; CLIA# [id number] Performed By: #### 3 274-8, 19725-3, PINR #### [facility] ([id number]) [address] [facility], [address] ORDERon TEST NAME UHBAG HISTOPLASMA ANTIGEN URINE Normal [facility] TEST RESULT SEE COMMENTS 12/15/2023 01:32 PM Normal [facility] Comment on above: Result Comment: NOTE [...] developed and its performance characteristics determined by [facility] in a manner consistent with CLIA requirements. This test has not been cleared or approved by the U.S. Food and Drug Administration. Test Performed by: [facility] [place] - [address] [address] End Polisher: Raoul Marin Ph.D.; CLIA# [id number] aPTT Coag (PPP) [Time]on aPTT Coag (Bld) [Time] 124 s Critically high 26-37 [facility] Comment on above: Performed By: #### 3 [id number], [id number], PINR #### [facility] ([id number]) [address], [address] [place] [address] aPTT Coag (Bld) [Time] 105 s Critically high 26-37 [facility] Comment on above: Result Comment: NEW REFERENCE RANGE Performed By: #### 4 [id number], PINR, [id number] #### [facility] ([id number]) [address] [place] [address], [place] [address] #### CBCA, CMP #### [facility] ([id number]) [address], [address] [place] [address] CBC AND AUTO DIFFon 12-12-19 24 ABSOLUTE BASOPHIL 0.0 X10E9/L Normal 0.0-0.2 [facility] Comment on above: Performed By: #### C BCA, CMP #### [facility] ([id number]) [address], [address] [place] [address] ABSOLUTE NEUTROPHIL 2.2 X10E9/L Normal 1.5-6.6 [facility] Comment on above: Performed By: #### C BCA, CMP #### [facility] ([id number]) [address], [address] [place] [address] Basophils/100 WBC (Bld) 1.1 % Normal [facility] Comment on above: Performed By: #### C BCA, CMP #### [facility] ([id number]) [address], [address] [place] [address] Eosinophils (Bld) [#/Vol] 0.0 10*3/uL Normal 0.0-0.4 [facility] Comment on above: Performed By: #### C BCA, CMP #### [facility] ([id number]) [address], [address] [place] [address] Eosinophils/100 WBC (Bld) 0.6 % Normal [facility] Comment on above: Performed By: #### C BCA, CMP #### [facility] ([id number]) [address], [address] [place], [place] [address] Erythrocyte distribution width (RBC) [Ratio] 15.9 % High 11.5-15.0 [facility] Comment on above: Performed By: #### C BCA, CMP #### [facility] ([id number]) [address], [address] [place] [address] Hematocrit (Bld) [Volume fraction] 37.9 % Normal 35-47 [facility] Comment on above: Performed By: #### C MAHIN, CMP #### [facility] ([id number]) [address], [address] [place] [address] Hemoglobin (Bld) [Mass/Vol] 12.5 g/dL Normal 11.7-15.5 [facility] Comment on above: Performed By: #### C BCA, CMP #### [facility] ([id number]) [address], [address] [place] [address] Lymphocytes (Bld) [#/Vol] 0.9 10*3/uL Low 1.0-3.5 [facility] Comment on above: Performed By: #### C BCA, CMP #### [facility] ([id number]) [address], [address] [place] [address] Lymphocytes/100 WBC (Bld) 26.4 % Normal [facility] Comment on above: Performed By: #### C BCA, CMP #### [facility] ([id number]) [address], [address] [place] [address] MCH (RBC) [Entitic mass] 30.7 pg Normal 27-34 [facility] Comment on above: Performed By: #### C BCA, CMP #### [facility] ([id number]) [address], [address] [place] [address] MCHC (RBC) [Mass/Vol] 33.1 g/dL Normal 32-36 [facility] Comment on above: Performed By: #### C BCA, CMP #### [facility] ([id number]) [address], [address] [place] [address] MCV (RBC) [Entitic vol] 93 fL Normal 80-100 [facility] Comment on above: Performed By: #### C BCA, CMP #### [facility] ([id number]) [address], [address] [place] [address] Monocytes (Bld) [#/Vol] 0.3 10*3/uL Normal 0-0.9 [facility] Comment on above: Performed By: #### C BCA, CMP #### [facility] ([id number]) [address], [address] [place] [address] Monocytes/100 WBC (Bld) 9.4 % Normal [facility] Comment on above: Performed By: #### C BCA, CMP #### [facility] ([id number]) [address], [address] [place] [address] Neutrophils/100 WBC (Bld) 62.5 % Normal [facility] Comment on above: Performed By: #### C BCA, CMP #### [facility] ([id number]) [address], [address] [place] [address] Platelet mean volume (Bld) [Entitic vol] 6.7 fL Low 7-12 [facility] Comment on above: Performed By: #### C BCA, CMP #### [facility] ([id number]) [address], [address] [place] [address] Platelets (Bld) [#/Vol] 385 10*3/uL Normal 150-450 [facility] Comment on above: Performed By: #### C BCA, CMP #### [facility] ([id number]) [address], [address] [place] [address] RBC COUNT 4.08 X10E12/L Normal 3.80-5.20 [facility] Comment on above: Performed By: #### C BCA, CMP #### [facility] ([id number]) [address], [address] [place] [address] WBC (Bld) [#/Vol] 3.5 10*3/uL Low 4.0-11.0 [facility] Comment on above: Performed By: #### C BCA, CMP #### [facility] ([id number]) [address], [address] [place] [address] COMPREHENSIVE METABOLIC PANE Caleb 12-12-2023 Albumin [Mass/Vol] 4.0 g/dL Normal 3.2-5.3 [facility] Comment on above: Performed By: #### C BCA, CMP #### [facility] ([id number]) [address], [address] [place] [address] ALP [Catalytic activity/Vol] 133 U/L High 39-130 [facility] Comment on above: Performed By: #### C BCA, CMP #### [facility] ([id number]) [address], [address] [place] [address] ALT [Catalytic activity/Vol] 30 U/L Normal 0-31 [facility] Comment on above: Performed By: #### C BCA, CMP #### [facility] ([id number]) [address], [address] [place] [address] Anion gap [Moles/Vol] 10 mmol/L Normal 5-15 [facility] Comment on above: Performed By: #### C BCA, CMP #### [facility] ([id number]) [address], [address] [place] [address] AST [Catalytic activity/Vol] 49 U/L High 0-41 [facility] Comment on above: Performed By: #### C BCA, CMP #### [facility] ([id number]) [address] [address] [place] [address] Bilirubin [Mass/Vol] 0.7 mg/dL Normal 0.3-1.2 [facility] Comment on above: Performed By: #### C BCA, CMP #### [facility] ([id number]) [address] [address] [place] [address] Calcium [Mass/Vol] 8.9 mg/dL Normal 8.5-10.5 [facility] Comment on above: Performed By: #### C BCA, CMP #### [facility] ([id number]) [address] [address] [place] [address] Chloride [Moles/Vol] 107 mmol/L Normal 98-109 [facility] Comment on above: Performed By: #### C BCA, CMP #### [facility] ([id number]) [address] [address] [place] [address] CO2 [Moles/Vol] 21 mmol/L Low 22-32 [facility] Comment on above: Performed By: #### C BCA, CMP #### [facility] ([id number]) [address] [address] [place] [address] Creatinine [Mass/Vol] 0.78 mg/dL Normal 0.40-1.00 [facility] Comment on above: Result Comment: METH OD TRACEABLE TO IDMS STANDARD Performed By: #### C BCA, CMP #### [facility] ([id number]) [address] [address] [place] [address] eGFR (CKD-EPI) NON-RACE DEPENDENT >90 Normal >59 [facility] Comment on above: Result Comment: Reported eGFR is based on the CKD-EPI 2020 equation that does not use a race coefficient. Performed By: #### C BCA, CMP #### [facility] ([id number]) [address] [address] [place] [address] Glucose [Mass/Vol] 123 mg/dL High 65-99 [facility] Comment on above: Performed By: #### C BCA, CMP #### [facility] ([id number]) [address] [address] [place] [address] Potassium [Moles/Vol] 4.0 mmol/L Normal 3.5-5.0 [facility] Comment on above: Performed By: #### C BCA, CMP #### [facility] ([id number]) [address] [address] [place] [address] Protein [Mass/Vol] 8.0 g/dL Normal 6.0-8.0 [facility] Comment on above: Performed By: #### C BCA, CMP #### [facility] ([id number]) [address], [facility] [address] [place] [address] Sodium [Moles/Vol] 138 mmol/L Normal 134-146 [facility] Comment on above: Performed By: #### C BCA, CMP #### [facility] ([id number]) [address] [address] Urea nitrogen [Mass/Vol] 6 mg/dL Normal 5-23 [facility] Comment on above: Performed By: #### C BCA, CMP #### [facility] ([id number]) [address], [address] [place] [address] [address] CTA CHESTon 12-12-2023 CT CTA CHEST [...] Vaz MD on 12/12/2023 6:55 PM Normal [facility] Fibrin D-dimer DDU (PPP) [Ma ss/Vol]on 12-12-2023 D DIMER 714 ng/mL DDU High <255 [facility] Comment on above: Result Comment: Results >=255ng/mL DDU: Results may be indicative of the presence of VTE. The use of the Wells score and further diagnostic tests should be considered. Elevated D-Dimer levels can also be associated with DIC, neoplasm, , trauma and liver disease. Elevated levels of rheumatoid factor may lead to an overestimation of the D-Dimer level. Performed By: #### Ashkan STOCKTON, CMP #### [facility] ([id number]) [address], [address] [place] [address] Natriuretic peptide B [Mass/ Vol]on 12-12-2023 Natriuretic peptide B (Bld) [Mass/Vol] 43 pg/mL Normal <100.0 [facility] Comment on above: Performed By: #### Ashkan STOCKTON, CMP #### [facility] ([id number]) [address], [address] [address] PROTIME AND INRon 12-12-2023 INR Coag (PPP) [Relative time] 2.2 {INR} High 0.8-1.1 [facility] Comment on above: Performed By: #### Ahskan STOCKTON, CMP #### [facility] ([id number]) [address], [address] [address] PT Coag (PPP) [Time] 24.7 s High 9.8-13.2 [facility] Comment on above: Result Comment: NEW REFERENCE RANGE Performed By: #### Ashkan STOCKTON, CMP #### [facility] ([id number]) [address], [address] [address] SARS/FLU A+B/RSV by NAAT/Mol ecularon 12-12-2023 SARS/FLU [...] operators who are performing tests using either [employer] or [employer] systems and is limited to laboratories that [...] repeat. Fact Sheet for Healthcare Providers: https://www.fda.gov/me rosanne/127716/download Fact Sheet for Patients: https://www.fda.gov/me rosanne/663240/download Normal [facility] Comment on above: Performed By: #### 4 8066-5, PINR, 86130-7 #### [facility] ([id number]) [address] [place] [address] #### CBCA, CMP #### [facility] ([id number]) [address] [facility], [address] [place] [address] Troponin I.cardiac High sens itivity method [Mass/Vol]on 12-12-2023 1 HOUR TROP I, HIGH SENSITIVITY 7 ng/L Normal <16 [facility] Comment on above: Performed By: #### 4 8066-5, PINR, 69552-2 #### [facility] ([id number]) [address] [place] [address] #### CBCA, CMP #### [facility] ([id number]) [address], [address] [place] [address] TROPONIN I, HIGH SENSITIVITY 6 ng/L Normal <16 [facility] Comment on above: Performed By: #### C BCA, CMP #### [facility] ([id number]) [address], [address] [place] [address] aPTT Coag (PPP) [Time]on aPTT Coag (Bld) [Time] 46 s High 26-37 [facility] Comment on above: Result Comment: NEW REFERENCE RANGE Performed By: #### 4 8066-5, PINR, 06649-7 #### [facility] ([id number]) [address] [place] [address], [place] [address] #### CBCA, CMP #### [facility] ([id number]) [address], [address] [place] [address] CBC AND AUTO DIFFon 12-09-19 24 ABSOLUTE BASOPHIL 0.0 X10E9/L Normal 0.0-0.2 [facility] Comment on above: Performed By: #### 3 274-8, 99115-7, PINR #### [facility] ([id number]) [address], [address] [place] [address] ABSOLUTE NEUTROPHIL 1.6 X10E9/L Normal 1.5-6.6 [facility] Comment on above: Performed By: #### 3 274-8, 38794-9, PINR #### [facility] ([id number]) [address], [address] [place] [address] Basophils/100 WBC (Bld) 0.7 % Normal [facility] Comment on above: Performed By: #### 3 274-8, 09776-8, PINR #### [facility] ([id number]) [address], [address] [place] [address] Eosinophils (Bld) [#/Vol] 0.0 10*3/uL Normal 0.0-0.4 [facility] Comment on above: Performed By: #### 3 274-8, 01665-9, PINR #### [facility] ([id number]) [address] [address] [place] [address] Eosinophils/100 WBC (Bld) 1.4 % Normal [facility] Comment on above: Performed By: #### 3 274-8, 76467-9, PINR #### [facility] ([id number]) [address] [address] [place] [address] Erythrocyte distribution width (RBC) [Ratio] 16.2 % High 11.5-15.0 [facility] Comment on above: Performed By: #### 3 274-8, 31771-3, PINR #### [facility] ([id number]) [address] [address] [place] [address] Hematocrit (Bld) [Volume fraction] 32.3 % Low 35-47 [facility] Comment on above: Performed By: #### 3 274-8, 65967-0, PINR #### [facility] ([id number]) [address] [address] Hemoglobin (Bld) [Mass/Vol] 9.9 g/dL Low 11.7-15.5 [facility] Comment on above: Performed By: #### 3 274-8, 18306-0, PINR #### [facility] ([id number]) [address] [address] [place] [address] Lymphocytes (Bld) [#/Vol] 1.1 10*3/uL Normal 1.0-3.5 [facility] Comment on above: Performed By: #### 3 274-8, 27387-6, PINR #### [facility] ([id number]) [address], [address] [place] [address] Lymphocytes/100 WBC (Bld) 36.9 % Normal [facility] Comment on above: Performed By: #### 3 274-8, 92552-9, PINR #### [facility] ([id number]) [address], [address] [place] [address] MCH (RBC) [Entitic mass] 28.2 pg Normal 27-34 [facility] Comment on above: Performed By: #### 3 274-8, 50271-5, PINR #### [facility] ([id number]) [address], [facility] [address] [place] [address] MCHC (RBC) [Mass/Vol] 30.8 g/dL Low 32-36 [facility] Comment on above: Performed By: #### 3 274-8, 39039-2, PINR #### [facility] ([id number]) [address], [address] [place] [address] MCV (RBC) [Entitic vol] 92 fL Normal 80-100 [facility] Comment on above: Performed By: #### 3 274-8, 20493-0, PINR #### [facility] ([id number]) [address], [address] [place] [address] Monocytes (Bld) [#/Vol] 0.3 10*3/uL Normal 0-0.9 [facility] Comment on above: Performed By: #### 3 274-8, 46605-0, PINR #### [facility] ([id number]) [address], [address] [place] [address] Monocytes/100 WBC (Bld) 11.1 % Normal [facility] Comment on above: Performed By: #### 3 274-8, 18740-9, PINR #### [facility] ([id number]) [address], [address] [place] [address] Neutrophils/100 WBC (Bld) 49.9 % Normal [facility] Comment on above: Performed By: #### 3 274-8, 41280-9, PINR #### [facility] ([id number]) [address], [facility] [address] [place] [address] Platelet mean volume (Bld) [Entitic vol] 7.5 fL Normal 7-12 [facility] Comment on above: Performed By: #### 3 274-8, 03060-6, PINR #### [facility] ([id number]) [address], [facility] [address] [place] [address] Platelets (Bld) [#/Vol] 335 10*3/uL Normal 150-450 [facility] Comment on above: Performed By: #### 3 274-8, 75637-0, PINR #### [facility] ([id number]) [address], [facility] [address] [place] [address] RBC COUNT 3.52 X10E12/L Low 3.80-5.20 [facility] Comment on above: Performed By: #### 3 274-8, 75369-4, PINR #### [facility] ([id number]) [address], [address] [address] WBC (Bld) [#/Vol] 3.1 10*3/uL Low 4.0-11.0 [facility] Comment on above: Performed By: #### 3 274-8, 40686-4, PINR #### [facility] ([id number]) [address], [address] [place] [address] COMPREHENSIVE METABOLIC PANE Caleb 12-09-2023 Albumin [Mass/Vol] 3.4 g/dL Normal 3.2-5.3 [facility] Comment on above: Performed By: #### 3 274-8, 27604-9, PINR #### [facility] ([id number]) [address], [address] [place] [address] ALP [Catalytic activity/Vol] 99 U/L Normal 39-130 [facility] Comment on above: Performed By: #### 3 274-8, 03160-8, PINR #### [facility] ([id number]) [address], [address] [place] [address] ALT [Catalytic activity/Vol] 21 U/L Normal 0-31 [facility] Comment on above: Performed By: #### 3 274-8, 06717-2, PINR #### [facility] ([id number]) [address], [address] [place] [address] Anion gap [Moles/Vol] 9 mmol/L Normal 5-15 [facility] Comment on above: Performed By: #### 3 274-8, 67575-2, PINR #### [facility] ([id number]) [address], [address] [place] [address] AST [Catalytic activity/Vol] 33 U/L Normal 0-41 [facility] Comment on above: Performed By: #### 3 274-8, 47485-2, PINR #### [facility] ([id number]) [address], [address] [place] [address] Bilirubin [Mass/Vol] 0.3 mg/dL Normal 0.3-1.2 [facility] Comment on above: Performed By: #### 3 274-8, 52849-2, PINR #### [facility] ([id number]) [address], [address] [place] [address] Calcium [Mass/Vol] 8.4 mg/dL Low 8.5-10.5 [facility] Comment on above: Performed By: #### 3 274-8, 01515-3, PINR #### [facility] ([id number]) [address], [address] [place] [address] Chloride [Moles/Vol] 110 mmol/L High 98-109 [facility] Comment on above: Performed By: #### 3 274-8, 28980-3, PINR #### [facility] ([id number]) [address], [facility] [address] [place] [address] CO2 [Moles/Vol] 23 mmol/L Normal 22-32 [facility] Comment on above: Performed By: #### 3 274-8, 65298-9, PINR #### [facility] ([id number]) [address] [address] Creatinine [Mass/Vol] 0.74 mg/dL Normal 0.40-1.00 [facility] Comment on above: Result Comment: METH OD TRACEABLE TO IDMS STANDARD Performed By: #### 3 274-8, 60020-9, PINR #### [facility] ([id number]) [address], [address] [address] eGFR (CKD-EPI) NON-RACE DEPENDENT >90 Normal >59 [facility] Comment on above: Result Comment: Reported eGFR is based on the CKD-EPI 2020 equation that does not use a race coefficient. Performed By: #### 3 274-8, 16554-6, PINR #### [facility] ([id number]) [address], [address] [address] Glucose [Mass/Vol] 113 mg/dL High 65-99 [facility] Comment on above: Performed By: #### 3 274-8, 10984-0, PINR #### [facility] ([id number]) [address] [address] Potassium [Moles/Vol] 4.2 mmol/L Normal 3.5-5.0 [facility] Comment on above: Result Comment: SPEC IMEN HEMOLYZED, RESULTS INCREASED MODERATELY HEMOLYZED Performed By: #### 3 274-8, 64076-9, PINR #### [facility] ([id number]) [address], [address] [place] [address] Protein [Mass/Vol] 6.2 g/dL Normal 6.0-8.0 [facility] Comment on above: Performed By: #### 3 274-8, 87795-7, PINR #### [facility] ([id number]) [address], [address] [place] [address] Sodium [Moles/Vol] 142 mmol/L Normal 134-146 [facility] Comment on above: Performed By: #### 3 274-8, 57647-0, PINR #### [facility] ([id number]) [address], [address] [place] [address] Urea nitrogen [Mass/Vol] 7 mg/dL Normal 5-23 [facility] Comment on above: Performed By: #### 3 274-8, 90062-4, PINR #### [facility] ([id number]) [address] [place] [address] Heparin unfractionated Chrom ogenic method Qn (PPP)on 12-09-2023 ANTI XA UFH 0.19 IU/mL Low 0.30-0.70 [facility] Comment on above: Result Comment: Opti mal time for testing is 6 hrs post dosage This test is specific for monitoring patients on UFH, and is not recommended for use with other Anti-Xa medications. Performed By: #### 3 274-8, 58132-3, PINR #### [facility] ([id number]) [address], [address] [place] [address] MAGNESIUMon 12-09-2023 Magnesium [Mass/Vol] 1.8 mg/dL Normal 1.8-2.6 [facility] Comment on above: Performed By: #### 3 274-8, 18052-9, PINR #### [facility] ([id number]) [address], [address] [place] [address] PROTIME AND INRon 12-09-2023 INR Coag (PPP) [Relative time] 1.1 {INR} Normal 0.8-1.1 [facility] Comment on above: Performed By: #### 3 274-8, 64290-2, PINR #### [facility] ([id number]) [address] [place] [address] PT Coag (PPP) [Time] 13.2 s Normal 9.8-13.2 [facility] Comment on above: Performed By: #### 3 274-8, 25792-8, PINR #### [facility] ([id number]) [address] [place] [address] aPTT Coag (PPP) [Time]on aPTT Coag (Bld) [Time] 38 s High 26-37 Pr [facility] Comment on above: Performed By: #### 3 274-8, 40554-7, PINR #### [facility] ([id number]) [address] [place] [address] CBC AND AUTO DIFFon 12-08-19 24 Eosinophils (Bld) [#/Vol] 0.1 10*3/uL Normal 0.0-0.4 [facility] Comment on above: Performed By: #### V PPCR #### [facility] ([id number]) [address], [address] [place] [address] Eosinophils/100 WBC (Bld) 1.9 % Normal [facility] Comment on above: Performed By: #### V PPCR #### [facility] ([id number]) [address] [place] [address] Erythrocyte distribution width (RBC) [Ratio] 15.8 % High 11.5-15.0 [facility] Comment on above: Performed By: #### V PPCR #### [facility] ([id number]) [address], [address] [place] [address] Hematocrit (Bld) [Volume fraction] 32.7 % Low 35-47 [facility] Comment on above: Performed By: #### V PPCR #### [facility] ([id number]) [address], [address] [place] [address] Hemoglobin (Bld) [Mass/Vol] 10.8 g/dL Low 11.7-15.5 [facility] Comment on above: Performed By: #### V PPCR #### [facility] ([id number]) [address], [address] [place] [address] Lymphocytes (Bld) [#/Vol] 1.0 10*3/uL Normal 1.0-3.5 [facility] Comment on above: Performed By: #### V PPCR #### [facility] ([id number]) [address], [address] [place] [address] Lymphocytes/100 WBC (Bld) 34.3 % Normal [facility] Comment on above: Performed By: #### V PPCR #### [facility] ([id number]) [address], [address] [place] [address] MCH (RBC) [Entitic mass] 30.3 pg Normal 27-34 [facility] Comment on above: Performed By: #### V PPCR #### [facility] ([id number]) [address], [address] [place] [address] MCHC (RBC) [Mass/Vol] 33.1 g/dL Normal 32-36 [facility] Comment on above: Performed By: #### V PPCR #### [facility] ([id number]) [address], [address] [place] [address] MCV (RBC) [Entitic vol] 92 fL Normal 80-100 [facility] Comment on above: Performed By: #### V PPCR #### [facility] ([id number]) [address], [address] [place] [address] Monocytes (Bld) [#/Vol] 0.2 10*3/uL Normal 0-0.9 [facility] Comment on above: Performed By: #### V PPCR #### [facility] ([id number]) [address], [address] [place] [address] Monocytes/100 WBC (Bld) 8.6 % Normal [facility] Comment on above: Performed By: #### V PPCR #### [facility] ([id number]) [address], [address] [place] [address] Neutrophils (Bld) [#/Vol] 1.5 10*3/uL Normal 1.5-6.6 [facility] Comment on above: Performed By: #### V PPCR #### [facility] ([id number]) [address], [address] [place] [address] Platelet mean volume (Bld) [Entitic vol] 6.7 fL Low 7-12 [facility] Comment on above: Performed By: #### V PPCR #### [facility] ([id number]) [address], [address] [place] [address] Platelets (Bld) [#/Vol] 297 10*3/uL Normal 150-450 [facility] Comment on above: Performed By: #### V PPCR #### [facility] ([id number]) [address], [address] [place] [address] RBC COUNT 3.56 X10E12/L Low 3.80-5.20 [facility] Comment on above: Performed By: #### V PPCR #### [facility] ([id number]) [address], [address] [place] [address] RBC morphology finding Nom (Bld) NORMAL Normal [facility] Comment on above: Performed By: #### V PPCR #### [facility] ([id number]) [address], [address] [place] [address] SEG NEUTROPHIL 55.2 % Normal [facility] Comment on above: Performed By: #### V PPCR #### [facility] ([id number]) [address], [address] [place] [address] WBC (Bld) [#/Vol] 2.8 10*3/uL Low 4.0-11.0 [facility] Comment on above: Performed By: #### V PPCR #### [facility] ([id number]) [address], [address] [place] [address] COMPREHENSIVE METABOLIC PANE Caleb 12-08-2023 Albumin [Mass/Vol] 3.2 g/dL Normal 3.2-5.3 [facility] Comment on above: Performed By: #### V PPCR #### [facility] ([id number]) [address], [address] [place] [address] ALP [Catalytic activity/Vol] 100 U/L Normal 39-130 [facility] Comment on above: Performed By: #### V PPCR #### [facility] ([id number]) [address], [address] [place] [address] ALT [Catalytic activity/Vol] 19 U/L Normal 0-31 [facility] Comment on above: Performed By: #### V PPCR #### [facility] ([id number]) [address], [address] [place] [address] Anion gap [Moles/Vol] 8 mmol/L Normal 5-15 [facility] Comment on above: Performed By: #### V PPCR #### [facility] ([id number]) [address], [address] [place] [address] AST [Catalytic activity/Vol] 28 U/L Normal 0-41 [facility] Comment on above: Performed By: #### V PPCR #### [facility] ([id number]) [address], [facility] [address] [place] [address] Bilirubin [Mass/Vol] 0.5 mg/dL Normal 0.3-1.2 [facility] Comment on above: Performed By: #### V PPCR #### [facility] ([id number]) [address] [address] [place] [address] Calcium [Mass/Vol] 8.1 mg/dL Low 8.5-10.5 [facility] Comment on above: Performed By: #### V PPCR #### [facility] ([id number]) [address] [address] [place] [address] Chloride [Moles/Vol] 109 mmol/L Normal 98-109 [facility] Comment on above: Performed By: #### V PPCR #### [facility] ([id number]) [address] [address] CO2 [Moles/Vol] 25 mmol/L Normal 22-32 [facility] Comment on above: Performed By: #### V PPCR #### [facility] ([id number]) [address] [address] Creatinine [Mass/Vol] 0.64 mg/dL Normal 0.40-1.00 [facility] Comment on above: Result Comment: METH OD TRACEABLE TO IDMS STANDARD Performed By: #### V PPCR #### [facility] ([id number]) [address] [address] [place] [address] eGFR (CKD-EPI) NON-RACE DEPENDENT >90 Normal >59 [facility] Comment on above: Result Comment: Reported eGFR is based on the CKD-EPI 2020 equation that does not use a race coefficient. Performed By: #### V PPCR #### [facility] ([id number]) [address], [address] [place] [address] Glucose [Mass/Vol] 99 mg/dL Normal 65-99 [facility] Comment on above: Performed By: #### V PPCR #### [facility] ([id number]) [address], [address] [place] [address] Potassium [Moles/Vol] 3.6 mmol/L Normal 3.5-5.0 [facility] Comment on above: Performed By: #### V PPCR #### [facility] ([id number]) [address], [address] [place] [address] Protein [Mass/Vol] 6.0 g/dL Normal 6.0-8.0 [facility] Comment on above: Performed By: #### V PPCR #### [facility] ([id number]) [address], [address] [place] [address] Sodium [Moles/Vol] 142 mmol/L Normal 134-146 [facility] Comment on above: Performed By: #### V PPCR #### [facility] ([id number]) [address], [address] [place] [address] Urea nitrogen [Mass/Vol] 5 mg/dL Normal 5-23 [facility] Comment on above: Performed By: #### V PPCR #### [facility] ([id number]) [address], [address] [place] [address] Fibrinogen Coagulation.deriv ed (PPP) [Mass/Vol]on 12-08-2023 FIBRINOGEN 365 mg/dL Normal 190-480 [facility] Comment on above: Performed By: #### 3 274-8, 80664-8, PINR #### [facility] ([id number]) [address], [address] [place] [address] FIBRINOGEN 358 mg/dL Normal 190-480 [facility] Comment on above: Performed By: #### V PPCR #### [facility] ([id number]) [address], [address] [place] [address] HGB AND HCTon 12-08-2023 Hematocrit (Bld) [Volume fraction] 32.8 % Low 35-47 [facility] Comment on above: Performed By: #### V PPCR #### [facility] ([id number]) [address], [address] [place] [address] Hemoglobin (Bld) [Mass/Vol] 10.9 g/dL Low 11.7-15.5 [facility] Comment on above: Performed By: #### V PPCR #### [facility] ([id number]) [address], [address] [place] [address] Heparin unfractionated Chrom ogenic method Qn (PPP)on 12-08-2023 ANTI XA UFH 0.05 IU/mL Low 0.30-0.70 [facility] Comment on above: Result Comment: Opti mal time for testing is 6 hrs post dosage This test is specific for monitoring patients on UFH, and is not recommended for use with other Anti-Xa medications. Performed By: #### 3 274-8, 92084-0, PINR #### [facility] ([id number]) [address], [address] [place] [address] MAGNESIUMon 12-08-2023 Magnesium [Mass/Vol] 2.2 mg/dL Normal 1.8-2.6 [facility] Comment on above: Performed By: #### 3 274-8, 11521-4, PINR #### [facility] ([id number]) [address], [address] [place] [address] Magnesium [Mass/Vol] 1.8 mg/dL Normal 1.8-2.6 [facility] Comment on above: Performed By: #### V PPCR #### [facility] ([id number]) [address], [address] [place] [address] PLATELET COUNT AND MPVon Platelet mean volume (Bld) [Entitic vol] 7.0 fL Normal 7-12 [facility] Comment on above: Performed By: #### V PPCR #### [facility] ([id number]) [address], [address] [place] [address] Platelets (Bld) [#/Vol] 293 10*3/uL Normal 150-450 [facility] Comment on above: Performed By: #### V PPCR #### [facility] ([id number]) [address], [address] [place] [address] POTASSIUMon 12-08-2023 Potassium [Moles/Vol] 3.8 mmol/L Normal 3.5-5.0 [facility] Comment on above: Performed By: #### 3 274-8, 45792-1, PINR #### [facility] ([id number]) [address], [address] [place] [address] PROTIME AND INRon 12-08-2023 INR Coag (PPP) [Relative time] 1.1 {INR} Normal 0.8-1.1 [facility] Comment on above: Performed By: #### 3 274-8, 85842-6, PINR #### [facility] ([id number]) [address], [address] [place] [address] PT Coag (PPP) [Time] 12.8 s Normal 9.8-13.2 [facility] Comment on above: Performed By: #### 3 274-8, 69627-9, PINR #### [facility] ([id number]) [address], [address] [place] [address] aPTT Coag (PPP) [Time]on aPTT Coag (Bld) [Time] 34 s Normal 26-37 [facility] [place] [facility] Comment on above: Performed By: #### 3 274-8, 73149-6, PINR #### [facility] ([id number]) [address], [address] [place] [address] BASIC METABOLIC PANLon 12-06 Anion gap [Moles/Vol] 12 mmol/L Normal 5-15 [facility] Comment on above: Performed By: #### V PPCR #### [facility] ([id number]) [address] [place] [address] Calcium [Mass/Vol] 8.2 mg/dL Low 8.5-10.5 [facility] Comment on above: Performed By: #### V PPCR #### [facility] ([id number]) [address] [place] [address] Chloride [Moles/Vol] 107 mmol/L Normal 98-109 [facility] Comment on above: Performed By: #### V PPCR #### [facility] ([id number]) [address] [place] [address] CO2 [Moles/Vol] 23 mmol/L Normal 22-32 [facility] Comment on above: Performed By: #### V PPCR #### [facility] ([id number]) [address], [address] [place] [address] Creatinine [Mass/Vol] 0.68 mg/dL Normal 0.40-1.00 [facility] Comment on above: Result Comment: METH OD TRACEABLE TO IDMS STANDARD Performed By: #### V PPCR #### [facility] ([id number]) [address], [address] [place] [address] eGFR (CKD-EPI) NON-RACE DEPENDENT >90 Normal >59 [facility] Comment on above: Result Comment: Reported eGFR is based on the CKD-EPI 2020 equation that does not use a race coefficient. Performed By: #### V PPCR #### [facility] ([id number]) [address], [address] [place] [address] Glucose [Mass/Vol] 89 mg/dL Normal 65-99 [facility] Comment on above: Performed By: #### V PPCR #### [facility] ([id number]) [address], [address] [place] [address] Potassium [Moles/Vol] 3.7 mmol/L Normal 3.5-5.0 [facility] Comment on above: Performed By: #### V PPCR #### [facility] ([id number]) [address], [address] [place] [address] Sodium [Moles/Vol] 142 mmol/L Normal 134-146 [facility] Comment on above: Performed By: #### V PPCR #### [facility] ([id number]) [address], [address] [place] [address] Urea nitrogen [Mass/Vol] 6 mg/dL Normal 5-23 [facility] Comment on above: Performed By: #### V PPCR #### [facility] ([id number]) [address], [address] [place] [address] Fibrinogen Coagulation.deriv ed (PPP) [Mass/Vol]on 12-07-2023 FIBRINOGEN 370 mg/dL Normal 190-480 [facility] Comment on above: Performed By: #### 4 8664-7, 3274-8, PINR, HH, BMP, 07587-4, PLTCT #### [facility] ([id number]) [address] [address] [place] [address] HGB AND HCTon 12-07-2023 Hematocrit (Bld) [Volume fraction] 34.1 % Low 35-47 [facility] Comment on above: Performed By: #### 4 8664-7, 3274-8, PINR, HH, BMP, 12138-4, PLTCT #### [facility] ([id number]) [address], [address] [place] [address] Hemoglobin (Bld) [Mass/Vol] 11.4 g/dL Low 11.7-15.5 [facility] Comment on above: Performed By: #### 4 8664-7, 3274-8, PINR, HH, BMP, 88226-4, PLTCT #### [facility] ([id number]) [address] [place] [address] Heparin unfractionated Chrom ogenic method Qn (PPP)on 12-07-2023 ANTI XA UFH 0.86 IU/mL High 0.30-0.70 [facility] Comment on above: Result Comment: Opti mal time for testing is 6 hrs post dosage This test is specific for monitoring patients on UFH, and is not recommended for use with other Anti-Xa medications. Performed By: #### V PPCR #### [facility] ([id number]) [address], [address] [place] [address] ANTI XA UFH 0.65 IU/mL Normal 0.30-0.70 [facility] Comment on above: Result Comment: Opti mal time for testing is 6 hrs post dosage This test is specific for monitoring patients on UFH, and is not recommended for use with other Anti-Xa medications. Performed By: #### 3 274-8, 04981-5, PINR #### [facility] ([id number]) [address] [place] [address] Natriuretic peptide B [Mass/ Vol]on 12-07-2023 Natriuretic peptide B (Bld) [Mass/Vol] 121 pg/mL High <100.0 [facility] Comment on above: Performed By: #### 3 0934-4 #### [facility] ([id number]) [address] [place] [address] PLATELET COUNT AND MPVon Platelet mean volume (Bld) [Entitic vol] 6.8 fL Low 7-12 [facility] Comment on above: Performed By: #### 4 8664-7, 3274-8, PINR, HH, BMP, 12512-6, PLTCT #### [facility] ([id number]) [address], [address] [place] [address] Platelets (Bld) [#/Vol] 325 10*3/uL Normal 150-450 [facility] Comment on above: Performed By: #### 4 8664-7, 3274-8, PINR, HH, BMP, 66686-1, PLTCT #### [facility] ([id number]) [address], [address] [place] [address] PROTIME AND INRon 12-07-2023 INR Coag (PPP) [Relative time] 1.2 {INR} High 0.8-1.1 [facility] Comment on above: Performed By: #### V PPCR #### [facility] ([id number]) [address], [address] [place] [address] PT Coag (PPP) [Time] 13.6 s High 9.8-13.2 [facility] Comment on above: Performed By: #### V PPCR #### [facility] ([id number]) [address], [address] [place] [address] INR Coag (PPP) [Relative time] 1.2 {INR} High 0.8-1.1 [facility] Comment on above: Performed By: #### 3 274-8, 96791-0, PINR #### [facility] ([id number]) [address] [place] [address] PT Coag (PPP) [Time] 13.4 s High 9.8-13.2 [facility] Comment on above: Performed By: #### 3 274-8, 01578-5, PINR #### [facility] ([id number]) [address] [place] [address] Troponin I.cardiac High sens itivity method [Mass/Vol]on 12-07-2023 TROPONIN I, HIGH SENSITIVITY 83 ng/L High <16 [facility] Comment on above: Result Comment: Elevations of hs-Troponin may be due to causes other than myocardial ischemia. Recommend serial hs-Troponin testing be performed. For the initial evaluation and management of chest pain patients, refer to the algorithms linked below. Emergency Patient: [email or web address] Inpatient: [email or web address] Performed By: #### 8 9579-7 #### [facility] ([id number]) [address] [place] [address] aPTT Coag (PPP) [Time]on aPTT Coag (Bld) [Time] s Critically high 26-37 [facility] Comment on above: Performed By: #### V PPCR #### [facility] ([id number]) [address] [place] [address] aPTT Coag (Bld) [Time] 73 s High 26-37 [facility] Comment on above: Performed By: #### 3 274-8, 80474-6, PINR #### [facility] ([id number]) [address] [place] [address] CBC AND AUTO DIFFon 12-06-19 24 ABSOLUTE BASOPHIL 0.0 X10E9/L Normal 0.0-0.2 [facility] Comment on above: Performed By: #### C BCA, CMP, 68982-3, 45995-0, 25683-2 #### [facility] ([id number]) [address] [place] [address] ABSOLUTE NEUTROPHIL 3.2 X10E9/L Normal 1.5-6.6 [facility] Comment on above: Performed By: #### C BCA, CMP, 77512-4, 39414-4, 63060-6 #### [facility] ([id number]) [address] [place] [address] Basophils/100 WBC (Bld) 0.8 % Normal [facility] Comment on above: Performed By: #### C BCA, CMP, 34913-0, 85053-3, 67998-3 #### [facility] ([id number]) [address] [place] [address] Eosinophils (Bld) [#/Vol] 0.0 10*3/uL Normal 0.0-0.4 [facility] Comment on above: Performed By: #### C BCA, CMP, 15958-5, 75279-1, 86012-7 #### [facility] ([id number]) [address] [place] [address] Eosinophils/100 WBC (Bld) 0.3 % Normal [facility] Comment on above: Performed By: #### C BCA, CMP, 06702-0, 37019-3, 59805-5 #### [facility] ([id number]) [address] [place] [address] Erythrocyte distribution width (RBC) [Ratio] 16.0 % High 11.5-15.0 [facility] Comment on above: Performed By: #### C BCA, CMP, 71025-8, 16572-4, 12759-9 #### [facility] ([id number]) [address] [place] [address] Hematocrit (Bld) [Volume fraction] 38.0 % Normal 35-47 [facility] Comment on above: Performed By: #### C BCA, CMP, 67681-2, 28875-9, 26015-6 #### [facility] ([id number]) [address] [place] [address] Hemoglobin (Bld) [Mass/Vol] 12.6 g/dL Normal 11.7-15.5 [facility] Comment on above: Performed By: #### C BCA, CMP, 00423-9, 27872-5, 11935-8 #### [facility] ([id number]) [address] [place] [address] Lymphocytes (Bld) [#/Vol] 1.0 10*3/uL Normal 1.0-3.5 [facility] Comment on above: Performed By: #### C BCA, CMP, 24655-2, 17725-4, 76983-6 #### [facility] ([id number]) [address] [place] [address] Lymphocytes/100 WBC (Bld) 22.5 % Normal [facility] Comment on above: Performed By: #### C BCA, CMP, 55142-3, 12405-7, 29079-7 #### [facility] ([id number]) [address] [place] [address] MCH (RBC) [Entitic mass] 30.5 pg Normal 27-34 [facility] Comment on above: Performed By: #### C BCA, CMP, 59658-9, 54547-8, 22850-9 #### [facility] ([id number]) [address] [place] [address] MCHC (RBC) [Mass/Vol] 33.2 g/dL Normal 32-36 [facility] Comment on above: Performed By: #### C BCA, CMP, 85226-2, 73293-5, 12012-9 #### [facility] ([id number]) [address] [place] [address] MCV (RBC) [Entitic vol] 92 fL Normal 80-100 [facility] Comment on above: Performed By: #### C BCA, CMP, 79976-2, 80214-7, 22509-3 #### [facility] ([id number]) [address] [place] [address] Monocytes (Bld) [#/Vol] 0.3 10*3/uL Normal 0-0.9 [facility] Comment on above: Performed By: #### C BCA, CMP, 50357-4, 81096-1, 11387-2 #### [facility] ([id number]) [address] [place] [address] Monocytes/100 WBC (Bld) 7.4 % Normal [facility] Comment on above: Performed By: #### C BCA, CMP, 65680-3, 30843-3, 49812-9 #### [facility] ([id number]) [address] [place] [address] Neutrophils/100 WBC (Bld) 69.0 % Normal [facility] Comment on above: Performed By: #### C BCA, CMP, 68402-6, 56548-6, 87323-7 #### [facility] ([id number]) [address] [place] [address] Platelet mean volume (Bld) [Entitic vol] 7.0 fL Normal 7-12 [facility] Comment on above: Performed By: #### C BCA, CMP, 51691-3, 30110-5, 66674-7 #### [facility] ([id number]) [address] [place] [address] Platelets (Bld) [#/Vol] 371 10*3/uL Normal 150-450 [facility] Comment on above: Performed By: #### C BCA, CMP, 80441-3, 47027-7, 13966-7 #### [facility] ([id number]) [address] [place] [address] RBC COUNT 4.13 X10E12/L Normal 3.80-5.20 [facility] Comment on above: Performed By: #### C BCA, CMP, 54821-2, 37691-6, 42474-2 #### [facility] ([id number]) [address] [place] [address] WBC (Bld) [#/Vol] 4.6 10*3/uL Normal 4.0-11.0 [facility] Comment on above: Performed By: #### C BCA, CMP, 74138-5, 96873-9, 93325-2 #### [facility] ([id number]) [address] [place] [address] ABSOLUTE BASOPHIL 0.0 X10E9/L Normal 0.0-0.2 [facility] Comment on above: Performed By: #### 4 8066-5, PINR, 32935-0 #### [facility] ([id number]) [address] [place] [address] #### CBCA, CMP #### [facility] ([id number]) [address] [place] [address] ABSOLUTE NEUTROPHIL 1.9 X10E9/L Normal 1.5-6.6 [facility] Comment on above: Performed By: #### 4 8066-5, PINR, 03068-0 #### [facility] ([id number]) [address] [place] [address] #### CBCA, CMP #### [facility] ([id number]) [address] [place] [address] Basophils/100 WBC (Bld) 0.6 % Normal [facility] Comment on above: Performed By: #### 4 8066-5, PINR, 55875-2 #### [facility] ([id number]) [address] [place] [address] #### CBCA, CMP #### [facility] ([id number]) [address] [place] [address] Eosinophils (Bld) [#/Vol] 0.0 10*3/uL Normal 0.0-0.4 [facility] Comment on above: Performed By: #### 4 8066-5, PINR, 79382-4 #### [facility] ([id number]) [address] [place] [address] #### CBCA, CMP #### [facility] ([id number]) [address] [place] [address] Eosinophils/100 WBC (Bld) 0.4 % Normal [facility] Comment on above: Performed By: #### 4 8066-5, PINR, 97128-3 #### [facility] ([id number]) [address] [place] [address] #### CBCA, CMP #### [facility] ([id number]) [address] [place] [address] Erythrocyte distribution width (RBC) [Ratio] 16.0 % High 11.5-15.0 [facility] Comment on above: Performed By: #### 4 8066-5, PINR, 61005-1 #### [facility] ([id number]) [address] [place] [address] #### CBCA, CMP #### [facility] ([id number]) [address], [address] [place] [address] Hematocrit (Bld) [Volume fraction] 39.8 % Normal 35-47 [facility] Comment on above: Performed By: #### 4 8066-5, PINR, 83038-9 #### [facility] ([id number]) [address] [place] [address] #### CBCA, CMP #### [facility] ([id number]) [address], [address] [place] [address] Hemoglobin (Bld) [Mass/Vol] 13.2 g/dL Normal 11.7-15.5 [facility] Comment on above: Performed By: #### 4 8066-5, PINR, 54730-4 #### [facility] ([id number]) [address] [place] [address] #### CBCA, CMP #### [facility] ([id number]) [address], [address] [place] [address] Lymphocytes (Bld) [#/Vol] 0.8 10*3/uL Low 1.0-3.5 [facility] Comment on above: Performed By: #### 4 8066-5, PINR, 64913-4 #### [facility] ([id number]) [address] [place] [address] #### CBCA, CMP #### [facility] ([id number]) [address], [address] [place] [address] Lymphocytes/100 WBC (Bld) 26.0 % Normal [facility] Comment on above: Performed By: #### 4 8066-5, PINR, 71262-7 #### [facility] ([id number]) [address] [place] [address] #### CBCA, CMP #### [facility] ([id number]) [address], [address] [place] [address] MCH (RBC) [Entitic mass] 31.0 pg Normal 27-34 [facility] Comment on above: Performed By: #### 4 8066-5, PINR, 01655-9 #### [facility] ([id number]) [address] [place] [address] #### CBCA, CMP #### [facility] ([id number]) [address], [address] [place] [address] MCHC (RBC) [Mass/Vol] 33.1 g/dL Normal 32-36 [facility] Comment on above: Performed By: #### 4 8066-5, PINR, 26365-0 #### [facility] ([id number]) [address] [place] [address] 14247 #### CBCA, CMP #### [facility] ([id number]) [address], [address] [place] [address] MCV (RBC) [Entitic vol] 94 fL Normal 80-100 [facility] Comment on above: Performed By: #### 4 8066-5, PINR, 70894-7 #### [facility] ([id number]) [address] [place] [address] 91496 #### CBCA, CMP #### [facility] ([id number]) [address], [address] [place] [address] Monocytes (Bld) [#/Vol] 0.3 10*3/uL Normal 0-0.9 [facility] Comment on above: Performed By: #### 4 8066-5, PINR, 92862-0 #### [facility] ([id number]) [address] [place] [address] 17827 #### CBCA, CMP #### [facility] ([id number]) [address], [address] [place] [address] Monocytes/100 WBC (Bld) 10.5 % Normal [facility] Comment on above: Performed By: #### 4 8066-5, PINR, 08464-6 #### [facility] ([id number]) [address] [place] [address] 30105 #### CBCA, CMP #### [facility] ([id number]) [address], [address] [place] [address] Neutrophils/100 WBC (Bld) 62.5 % Normal [facility] Comment on above: Performed By: #### 4 8066-5, PINR, 51921-0 #### [facility] ([id number]) [address] [place] [address] 35356 #### CBCA, CMP #### [facility] ([id number]) [address], [address] [place] [address] Platelet mean volume (Bld) [Entitic vol] 7.1 fL Normal 7-12 [facility] Comment on above: Performed By: #### 4 8066-5, PINR, 12926-4 #### [facility] ([id number]) [address] [place] [address] 22598 #### CBCA, CMP #### [facility] ([id number]) [address], [address] [place] [address] Platelets (Bld) [#/Vol] 360 10*3/uL Normal 150-450 [facility] Comment on above: Performed By: #### 4 8066-5, PINR, 05180-8 #### [facility] ([id number]) [address] [place] [address] 27038 #### CBCA, CMP #### [facility] ([id number]) [address], [address] [place] [address] RBC COUNT 4.25 X10E12/L Normal 3.80-5.20 [facility] Comment on above: Performed By: #### 4 8066-5, PINR, 94047-1 #### [facility] ([id number]) [address] [place] [address] 44976 #### CBCA, CMP #### [facility] ([id number]) [address], [address] [place] [address] WBC (Bld) [#/Vol] 3.1 10*3/uL Low 4.0-11.0 [facility] Comment on above: Performed By: #### 4 8066-5, PINR, 30717-0 #### [facility] ([id number]) [address] [place] [address] 70286 #### CBCA, CMP #### [facility] ([id number]) [address] [facility], [address] [place] [address] COMPREHENSIVE METABOLIC PANE [facility] 12-06-2023 Albumin [Mass/Vol] 3.7 g/dL Normal 3.2-5.3 [facility] Comment on above: Performed By: #### C BCA, CMP, 25282-8, 42067-1, 97294-5 #### [facility] ([id number]) [address] [place] [address] 87166 ALP [Catalytic activity/Vol] 121 U/L Normal 39-130 [facility] Comment on above: Performed By: #### C BCA, CMP, 84384-3, 39573-2, 53022-2 #### [facility] ([id number]) [address] [place] [address] ALT [Catalytic activity/Vol] 24 U/L Normal 0-31 [facility] Comment on above: Performed By: #### C BCA, CMP, 70034-5, 26873-2, 60697-7 #### [facility] ([id number]) [address] [place] [address] 09068 Anion gap [Moles/Vol] 10 mmol/L Normal 5-15 [facility] Comment on above: Performed By: #### C BCA, CMP, 44551-7, 89616-5, 05242-1 #### [facility] ([id number]) [address] [place] [address] 80001 AST [Catalytic activity/Vol] 28 U/L Normal 0-41 [facility] Comment on above: Performed By: #### C BCA, CMP, 46738-6, 02519-7, 41894-8 #### [facility] ([id number]) [address] [place] [address]5624 Bilirubin [Mass/Vol] 0.7 mg/dL Normal 0.3-1.2 [facility] Comment on above: Performed By: #### C BCA, CMP, 00860-4, 31000-9, 66284-8 #### [facility] ([id number]) [address] [place] [address] Calcium [Mass/Vol] 9.2 mg/dL Normal 8.5-10.5 [facility] Comment on above: Performed By: #### C BCA, CMP, 96737-2, 29319-9, 13412-8 #### [facility] ([id number]) [address] [place] [address] 13844 Chloride [Moles/Vol] 107 mmol/L Normal 98-109 [facility] Comment on above: Performed By: #### C BCA, CMP, 40979-7, 53867-0, 60699-5 #### [facility] ([id number]) [address] [place] [address] CO2 [Moles/Vol] 22 mmol/L Normal 22-32 [facility] Comment on above: Performed By: #### C BCA, CMP, 49709-6, 15937-1, 38609-2 #### [facility] ([id number]) [address] [place] [address] 24724 Creatinine [Mass/Vol] 0.69 mg/dL Normal 0.40-1.00 [facility] Comment on above: Result Comment: METH OD TRACEABLE TO IDMS STANDARD Performed By: #### C MAHIN, CMP, 93036-3, 93961-7, 29173-5 #### [facility] ([id number]) [address] [place] [address]47 eGFR (CKD-EPI) NON-RACE DEPENDENT >90 Normal >59 [facility] Comment on above: Result Comment: Reported eGFR is based on the CKD-EPI 2020 equation that does not use a race coefficient. Performed By: #### C BCA, CMP, 57639-4, 20982-1, 02000-9 #### [facility] ([id number]) [address] [place] [address] 04719 Glucose [Mass/Vol] 100 mg/dL High 65-99 [facility] Comment on above: Performed By: #### C BCA, CMP, 82333-8, 27149-5, 14940-1 #### [facility] ([id number]) [address] [place] [address]34 Potassium [Moles/Vol] 3.6 mmol/L Normal 3.5-5.0 [facility] Comment on above: Performed By: #### C BCA, CMP, 66124-2, 54315-0, 19532-1 #### [facility] ([id number]) [address] [place] [address] 92637 Protein [Mass/Vol] 7.5 g/dL Normal 6.0-8.0 [facility] Comment on above: Performed By: #### C BCA, CMP, 36085-0, 20014-2, 88744-5 #### [facility] ([id number]) [address] [place] [address] 96666 Sodium [Moles/Vol] 139 mmol/L Normal 134-146 [facility] Comment on above: Performed By: #### C BCA, CMP, 83422-0, 65493-5, 58602-3 #### [facility] ([id number]) [address] [place] [address] 81123 Urea nitrogen [Mass/Vol] 7 mg/dL Normal 5-23 [facility] Comment on above: Performed By: #### C BCA, CMP, 31152-1, 49964-6, 34849-3 #### [facility] ([id number]) [address] [place] [address] 36085 Albumin [Mass/Vol] 4.1 g/dL Normal 3.2-5.3 [facility] Comment on above: Performed By: #### 4 8066-5, PINR, 00365-3 #### [facility] ([id number]) [address] [place] [address] 70789 #### CBCA, CMP #### [facility] ([id number]) [address] [place] [address], [address] [place] [address] ALP [Catalytic activity/Vol] 126 U/L Normal 39-130 [facility] Comment on above: Performed By: #### 4 8066-5, PINR, 99942-8 #### [facility] ([id number]) [address] [place] [address] 11012 #### CBCA, CMP #### [facility] ([id number]) [address] [facility], [address] [place] [address] ALT [Catalytic activity/Vol] 19 U/L Normal 0-31 [facility] Comment on above: Performed By: #### 4 8066-5, PINR, 96776-2 #### [facility] ([id number]) [address] [place] [address] 13029 #### CBCA, CMP #### [facility] ([id number]) [address], [address] [place] [address] Anion gap [Moles/Vol] 11 mmol/L Normal 5-15 [facility] Comment on above: Performed By: #### 4 8066-5, PINR, 65901-8 #### [facility] ([id number]) [address] [place] [address] 97486 #### CBCA, CMP #### [facility] ([id number]) [address], [address] [place] [address] AST [Catalytic activity/Vol] 30 U/L Normal 0-41 [facility] Comment on above: Performed By: #### 4 8066-5, PINR, 75618-6 #### [facility] ([id number]) [address] [place] [address] 56104 #### CBCA, CMP #### [facility] ([id number]) [address] [facility], [address] [place] [address] Bilirubin [Mass/Vol] 0.6 mg/dL Normal 0.3-1.2 [facility] Comment on above: Performed By: #### 4 8066-5, PINR, 80304-1 #### [facility] ([id number]) [address] [place] [address] 24099 #### CBCA, CMP #### [facility] ([id number]) [address], [address] [place] [address] Calcium [Mass/Vol] 9.1 mg/dL Normal 8.5-10.5 [facility] Comment on above: Performed By: #### 4 8066-5, PINR, 19141-7 #### [facility] ([id number]) [address] [place] [address] 08913 #### CBCA, CMP #### [facility] ([id number]) [address], [address] [place] [address] Chloride [Moles/Vol] 106 mmol/L Normal 98-109 [facility] Comment on above: Performed By: #### 4 8066-5, PINR, 11048-2 #### [facility] ([id number]) [address] [place] [address] 43917 #### CBCA, CMP #### [facility] ([id number]) [address] [facility], [address] [place] [address] CO2 [Moles/Vol] 25 mmol/L Normal 22-32 [facility] Comment on above: Performed By: #### 4 8066-5, PINR, 37263-4 #### [facility] ([id number]) [address] [place] [address] 54273 #### CBCA, CMP #### [facility] ([id number]) [address] [facility], [address] [place] [address] Creatinine [Mass/Vol] 0.79 mg/dL Normal 0.40-1.00 [facility] Comment on above: Result Comment: METH OD TRACEABLE TO IDMS STANDARD Performed By: #### 4 8066-5, PINR, 23115-9 #### [facility] ([id number]) [address] [place] [address] 71293 #### CBCA, CMP #### [facility] ([id number]) [address] [facility], [address] [place] [address] eGFR (CKD-EPI) NON-RACE DEPENDENT >90 Normal >59 [facility] Comment on above: Result Comment: Reported eGFR is based on the CKD-EPI 1 equation that does not use a race coefficient. Performed By: #### 4 8066-5, PINR, 86923-5 #### [facility] ([id number]) [address] [place] [address] 90572 #### CBCA, CMP #### [facility] ([id number]) [address] [facility], [address] [place] [address] Glucose [Mass/Vol] 116 mg/dL High 65-99 [facility] Comment on above: Performed By: #### 4 8066-5, PINR, 33090-6 #### [facility] ([id number]) [address] [place] [address] 84142 #### CBCA, CMP #### [facility] ([id number]) [address] [facility], [address] [place] [address] Potassium [Moles/Vol] 3.7 mmol/L Normal 3.5-5.0 [facility] Comment on above: Performed By: #### 4 8066-5, PINR, 35767-0 #### [facility] ([id number]) [address] [place] [address] 21297 #### CBCA, CMP #### [facility] ([id number]) [address] [facility], [address] [place] [address] Protein [Mass/Vol] 7.6 g/dL Normal 6.0-8.0 [facility] Comment on above: Performed By: #### 4 8066-5, PINR, 52627-4 #### [facility] ([id number]) [address] [place] [address] 87055 #### CBCA, CMP #### [facility] ([id number]) [address] [facility], [address] [place] [address] Sodium [Moles/Vol] 142 mmol/L Normal 134-146 [facility] Comment on above: Performed By: #### 4 8066-5, PINR, 61138-5 #### [facility] ([id number]) [address] [place] [address] [place] [address] #### CBCA, CMP #### [facility] ([id number]) [address] [facility], [address] [place] [address] Urea nitrogen [Mass/Vol] 6 mg/dL Normal 5-23 [facility] Comment on above: Performed By: #### 4 8066-5, PINR, 63915-3 #### [facility] ([id number]) [address] [facility], [place] [address] #### CBCA, CMP #### [facility] ([id number]) [address] [facility], [address] [place] [address] CT CTA CHESTon 12-06-2023 CT CTA CHEST [...] Carrizales MD on 12/06/2023 10:33 PM Normal [facility] Fibrin D-dimer DDU (PPP) [Ma ss/Vol]on 12-06-2023 D DIMER 2465 ng/mL DDU High <255 [facility] Comment on above: Result Comment: Results >=255ng/mL DDU: Results may be indicative of the presence of VTE. The use of the Wells score and further diagnostic tests should be considered. Elevated D-Dimer levels can also be associated with DIC, neoplasm, , trauma and liver disease. Elevated levels of rheumatoid factor may lead to an overestimation of the D-Dimer level. Performed By: #### 4 8066-5, PINR, 67515-6 #### [facility] ([id number]) [address] [place] [address] 67035 #### CHELA, CMP #### [facility] ([id number]) [address] [facility], [address] [place] [address] MAGNESIUMon 12-06-2023 Magnesium [Mass/Vol] 1.9 mg/dL Normal 1.8-2.6 [facility] Comment on above: Performed By: #### C MAHIN, CMP, 19428-1, 98887-4, 25887-3 #### [facility] ([id number]) [address] [place] [address] 24783 Natriuretic peptide B [Mass/ Vol]on 12-06-2023 Natriuretic peptide B (Bld) [Mass/Vol] 155 pg/mL High <100.0 [facility] Comment on above: Performed By: #### C BCA, CMP #### [facility] ([id number]) [address] [facility], [address] [place] [address] PROTIME AND INRon 12-06-2023 INR Coag (PPP) [Relative time] 1.1 {INR} Normal 0.8-1.1 [facility] Comment on above: Performed By: #### 4 8066-5, PINR, 68423-5 #### [facility] ([id number]) [address] [place] [address] 23173 #### CBCA, CMP #### [facility] ([id number]) [address] [facility], [address] [place] [address] PT Coag (PPP) [Time] 12.7 s Normal 9.8-13.2 [facility] Comment on above: Result Comment: NEW REFERENCE RANGE Performed By: #### 4 8066-5, PINR, 71008-6 #### [facility] ([id number]) [address] [place] [address], [place] [address] #### CBCA, CMP #### [facility] ([id number]) [address] [facility], [address] [place] [address] Troponin I.cardiac High sens itivity method [Mass/Vol]on 12-06-2023 1 HOUR TROP I, HIGH SENSITIVITY 132 ng/L High <16 [facility] Comment on above: Result Comment: Elevations of hs-Troponin may be due to causes other than myocardial ischemia. Recommend serial hs-Troponin testing be performed. For the initial evaluation and management of chest pain patients, refer to the algorithms linked below. Emergency Patient: [email or web address] uh=[email or web address] Inpatient: [email or web address] uh=acaea Performed By: #### C BCA, CMP #### [facility] ([id number]) [address], [address] [place] [address] TROPONIN I, HIGH SENSITIVITY 148 ng/L High <16 [facility] Comment on above: Result Comment: Elevations of hs-Troponin may be due to causes other than myocardial ischemia. Recommend serial hs-Troponin testing be performed. For the initial evaluation and management of chest pain patients, refer to the algorithms linked below. Emergency Patient: [email or web address] uh=acaea Inpatient: [email or web address]& uh=acaea Performed By: #### C BCA, CMP #### [facility] ([id number]) [address] [facility], [address] [place] [address] aPTT Coag (PPP) [Time]on aPTT Coag (Bld) [Time] 36 s Normal 26-37 [facility] Comment on above: Result Comment: NEW REFERENCE RANGE Performed By: #### 4 8066-5, PINR, 31405-3 #### [facility] ([id number]) [address] [place] [address], [place] [address] #### CBCA, CMP #### [facility] ([id number]) [address] [facility], [address] [place] [address] 36on 11-26-[address] MALLORIE Tomas HE STATED THAT HE WILL GIVE PATIENT STEP DOWN TRAMADOL PATIENT REFUSE AND STATED THAT WILL NOT HELP WITH THE PAIN ADVISED PATIENT TO CALL PAIN MANAGEMENT. [facility] 36 PATIENT STATED THAT SHE NEVER RECEIVE A REFILL ON MEDICATIONS AND YOU TOLD HER THAT YOU WOULD WHEN [facility] 36 Patient is more than 1 month following her surgery and will need to be referred to pain management for the same. We did discuss this when she came in for her postoperative follow-up visit. Thank you REFERRAL PLACED TO PAIN MANAGEMENT PATIENT NOTIFIED. [facility] 36 Patient called antonio douglass for a refill on oxycodone-acetaphimine 10-325 mg. Please advise. Thank you [facility] Telephoneon 11-26-2023 Telephone [phone] Apolonia Palma 1975 F Date Provider Department Center 11/26/2023 LYSSA MATSON MP ORTHO MPORTHO Family History Problem Relation Age of Onset Cancer Mother Family Status - Relation Status Age at Mother Reason for Visit and Comments: Med Refill [624949] Normal [facility] Office Visiton 11-19-2023 Follow-up visit [id number] Apolonia Palma guy Bey 1975 F Date Provider Department Center 11/19/2023 LYSSA MATSON MP ORTHO MPORTHO Family History Problem Relation Age of Onset Cancer Mother Family Status - Relation Status Age at Mother Level of Service:79318 ID POSTOP FOLLOW UP VISIT RELATED TO ORIGINAL PX (GC) Reason for Visit and Comments: Post-op [483] - TKA Normal [facility] Capillary blood glucose ernst urement by glucometer (mass/volume)Ordered By: Jonny Bentley on 11-16-2023 Glucose [Mass/Vol] 92 mg/dL Normal [facility] Comment on above: Random Glucose Refer ence Range is dependent on time and content of last meal. Glucose of more than 200 mg/dL in a nonstressed, ambulatory subject supports the diagnosis of Diabetes Mellitus. Result Comment: [place] Glucose Reference Range is dependent on time and content of last meal. Glucose of more than 200 mg/dL in a nonstressed, ambulatory subject supports the diagnosis of Diabetes Mellitus. PERFORMED BY: [facility] [address] [place] [address] PATHOLOGIST [employer] GUILLERMINA TOBAR M.D. Performed By: #### G LULS #### Point of Care testing , Glucose Poct Glucometerson 0 11-15-2023 Glucose [Mass/Vol] 105 mg/dL Normal [facility] Comment on above: Result Comment: [place] Glucose Reference Range is dependent on time and content of last meal. Glucose of more than 200 mg/dL in a nonstressed, ambulatory subject supports the diagnosis of Diabetes Mellitus. PERFORMED BY: [facility] [address] [place] [address] PATHOLOGIST [employer]PERATOR GUILLERMINA TOBAR M.D. Performed By: #### G LULS #### Point of Care testing , Glucose Poct Glucometerson 0 11-14-2023 Commemt1 Glu2: Cleaned Meter Normal [facility] Comment on above: Result Comment: PERF ORMED BY: [facility] [address] [place] [address] PATHOLOGIST [employer]PERATOR GUILLERMINA TOBAR M.D. Performed By: #### G LULS #### Point of Care testing , Glucose [Mass/Vol] 93 mg/dL Normal [facility] Comment on above: Result Comment: [facility] Glucose Reference Range is dependent on time and content of last meal. Glucose of more than 200 mg/dL in a nonstressed, ambulatory subject supports the diagnosis of Diabetes Mellitus. Performed By: #### G LULS #### Point of Care testing , No Panel InformationOrdered By: Jonny Bentley on 11-14-2023 Bedside Glucose Comment Glu2: cleaned meter [facility] Automated basophil %Ordered By: Mone Brennan on 11-13-2023 Basophils/100 WBC (Bld) 1.3 % Normal . [facility] Comment on above: Performed By: #### G LULS #### Point of Care testing , Automated basophil countOrde red By: Mone Brennan on 11-13-2023 Basophils (Bld) [#/Vol] 0.1 10*3/uL Normal 0.0-0.2 [facility] Comment on above: Result Comment: PERF ORMED BY: [address] [place] [address] PATHOLOGIST [employer]PERATOR GUILLERMINA TOBAR M.D. Performed By: #### G LULS #### Point of Care testing , Automated blood monocyte cou ntOrdered By: Mone Brennan on 11-13-2023 Monocytes (Bld) [#/Vol] 0.4 10*3/uL Normal 0.0-0.8 [facility] Comment on above: Performed By: #### G LULS #### Point of Care testing , Automated eosinophil %Ordere d By: Mone Brennan on 11-13-2023 Eosinophils/100 WBC (Bld) 1.2 % Normal . [facility] Comment on above: Performed By: #### G LULS #### Point of Care testing , Automated eosinophil countOr dered By: Mone Brennan on 11-13-2023 Eosinophils (Bld) [#/Vol] 0.1 10*3/uL Normal 0.0-0.45 [facility] Comment on above: Performed By: #### G LULS #### Point of Care testing , Automated monocyte %Ordered By: Mone Brennan on 11-13-2023 Monocytes/100 WBC (Bld) 6.2 % Normal . [facility] Comment on above: Performed By: #### G LULS #### Point of Care testing , Automated neutrophil %Ordere d By: Mone Brennan on 11-13-2023 Neutrophils/100 WBC (Bld) 59.2 % Normal . [facility] Comment on above: Performed By: #### G LULS #### Point of Care testing , Basic Metabolic Panelon Creatinine Clr Calc Pharmacy 162.78 Normal [facility] Comment on above: Result Comment: PERF ORMED BY: [facility] [address] [place] [address] PATHOLOGIST [employer] GUILLERMINA TOBAR M.D. Performed By: #### G LULS #### Point of Care testing , GFR/1.73 sq M.predicted MDRD (S/P/Bld) [Vol rate/Area] mL/min/{1.73_m2} Normal [facility] Comment on above: Performed By: #### G LULS #### Point of Care testing , Bilirubin Test strip Ql (U)O rdered By: Mone Brennan on 11-13-2023 Bilirubin Ql (U) Negative Negative [facility] Calcium [Mass/volume] in Ser um or PlasmaOrdered By: Mone Brennan on 11-13-2023 Calcium [Mass/Vol] 8.3 mg/dL Low 8.6-10.3 [facility] Comment on above: Performed By: #### G LULS #### Point of Care testing , Carbon dioxide, total [Moles /volume] in Serum or PlasmaOrdered By: Mone Brennan on 11-13-2023 CO2 [Moles/Vol] 27.9 mmol/L Normal 21.0-31.0 [facility] Comment on above: Performed By: #### G LULS #### Point of Care testing , Chloride [Moles/volume] in S binta or PlasmaOrdered By: Mnoe Brennan on 11-13-2023 Chloride [Moles/Vol] 105 mmol/L Normal 98-107 [facility] Comment on above: Performed By: #### G LULS #### Point of Care testing , Color of Urine by AutoOrdere d By: Mone Brennan on 11-13-2023 Color (U) Yellow Normal Yellow [facility] Comment on above: Order Comment: Name Collection Type:: Voided Performed By: #### U A #### [address] Complete Blood Count Auto Di ffon 11-13-2023 Mean Corpuscular HGB Conc 32.9 g/dL Normal 32.0-35.0 [facility] Comment on above: Performed By: #### G LULS #### Point of Care testing , NRBC% 0.4 /100{WBC} Normal 0-0.5 [facility] Comment on above: Performed By: #### G LULS #### Point of Care testing , Creatinine [Mass/volume] in Serum or PlasmaOrdered By: Mone Brennan on 11-13-2023 Creatinine [Mass/Vol] 0.65 mg/dL Normal 0.60-1.20 [facility] Comment on above: Performed By: #### G LULS #### Point of Care testing , Erythrocyte distribution wid th [Ratio] by Automated countOrdered By: Mone Brennan on 11-13-2023 Erythrocyte distribution width (RBC) [Ratio] 14.9 % Normal 11.9-15.3 [facility] Comment on above: Performed By: #### G LULS #### Point of Care testing , Erythrocytes [#/volume] in B lood by Automated countOrdered By: Mone Brennan on 11-13-2023 RBC (Bld) [#/Vol] 3.25 10*6/uL Low 3.60-5.00 [facility] Comment on above: Performed By: #### G LULS #### Point of Care testing , Glucose Poct Glucometerson 0 11-13-2023 Glucose [Mass/Vol] 103 mg/dL Normal [facility] Comment on above: Result Comment: [place] om Glucose Reference Range is dependent on time and content of last meal. Glucose of more than 200 mg/dL in a nonstressed, ambulatory subject supports the diagnosis of Diabetes Mellitus. PERFORMED BY: [facility] [address] [place] [address] PATHOLOGIST [employer] GUILLERMINA TOBAR M.D. Performed By: #### G LULS #### Point of Care testing , Glucose [Mass/volume] in Ser um or PlasmaOrdered By: Mone Brennan on 11-13-2023 Glucose [Mass/Vol] 94 mg/dL Normal 70-100 [facility] Comment on above: ADA recommended refe rence rangeRandom Glucose Reference Range is dependent on time and content of last meal. Glucose of more than 200 mg/dL in a nonstressed, ambulatory subject supports the diagnosis of Diabetes Mellitus. Result Comment: [place] om Glucose Reference Range is dependent on time and content of last meal. Glucose of more than 200 mg/dL in a nonstressed, ambulatory subject supports the diagnosis of Diabetes Mellitus. ADA recommended reference range Performed By: #### G LULS #### Point of Care testing , Glucose [Mass/volume] in Uri ne by Test stripOrdered By: Mnoe Brennan on 11-13-2023 Glucose Test strip (U) [Mass/Vol] Normal mg/dL Normal [facility] Hematocrit [Volume Fraction] of Blood by Automated countOrdered By: Mone Brennan on 11-13-2023 Hematocrit (Bld) [Volume fraction] 30.2 % Low 34.0-46.4 [facility] Comment on above: Performed By: #### G LULS #### Point of Care testing , Hemoglobin Test strip Ql (U) Ordered By: Mone Brennan on 11-13-2023 Hemoglobin Ql (U) Negative Negative [facility] Hemoglobin [Mass/volume] in BloodOrdered By: Mone Brennan on 11-13-2023 Hemoglobin (Bld) [Mass/Vol] 9.9 g/dL Low 11.8-15.4 [facility] Comment on above: Performed By: #### G LULS #### Point of Care testing , Ketones [Presence] in Urine by Test stripOrdered By: Mone Brennan on 11-13-2023 Ketones Ql (U) Negative Normal Negative [facility] Comment on above: Order Comment: Name Collection Type:: Voided Performed By: #### U A #### [facility] [address] Leukocyte esterase [Presence ] in Urine by Test stripOrdered By: Mone Brennan on 11-13-2023 Leukocyte esterase Test strip Ql (U) Negative Normal Negative [facility] Comment on above: Order Comment: Name Collection Type:: Voided Performed By: #### U A #### [facility] [address] [place] [address] Leukocytes [#/volume] correc olga lidia for nucleated erythrocytes in Blood by Automated counOrdered By: Mone Brennan on 11-13-2023 WBC corrected for nucl RBC Auto (Bld) [#/Vol] 6.3 10*3/uL 3.8-11.6 [facility] Leukocytes [#/volume] in Blo od by Automated countOrdered By: Mone Brennan on 11-13-2023 WBC (Bld) [#/Vol] 6.3 10*3/uL Normal 3.8-11.6 [facility] Comment on above: Performed By: #### G LULS #### Point of Care testing , Lymphocytes [#/volume] in Bl ood by Automated countOrdered By: Mone Brennan on 11-13-2023 Lymphocytes (Bld) [#/Vol] 2.0 10*3/uL Normal 1.00-4.8 [facility] Comment on above: Performed By: #### G LULS #### Point of Care testing , Lymphocytes/100 leukocytes i n Blood by Automated countOrdered By: Mone Brennan on 11-13-2023 Lymphocytes/100 WBC (Bld) 32.1 % Normal . [facility] Comment on above: Performed By: #### G LULS #### Point of Care testing , MCH [Entitic mass] by Automa olga lidia countOrdered By: Mone Brennan on 11-13-2023 MCH (RBC) [Entitic mass] 30.6 pg Normal 24.7-34.3 [facility] Comment on above: Performed By: #### G LULS #### Point of Care testing , MCHC Auto (RBC) [Mass/Vol]Or dered By: Mone Brennan on 11-13-2023 MCHC (RBC) [Mass/Vol] 32.9 g/dL 32.0-35.0 [facility] MCV [Entitic volume] by Auto mated countOrdered By: Mone Brennan on 11-13-2023 MCV (RBC) [Entitic vol] 92.8 fL Normal 80-100 [facility] Comment on above: Performed By: #### G LULS #### Point of Care testing , Neutrophils [#/volume] in Bl ood by Automated countOrdered By: Mone Brennan on 11-13-2023 Neutrophils (Bld) [#/Vol] 3.7 10*3/uL Normal 1.8-7.7 [facility] Comment on above: Performed By: #### G LULS #### Point of Care testing , Nitrite Test strip Ql (U)Ord ered By: Mone Brennan on 11-13-2023 Nitrite Ql (U) Negative Negative [facility] No Panel InformationOrdered By: Mone Brennan on 11-13-2023 Estimated GFR (CKD-EPI) > 60.0 mL/Min [facility] Creatinine Clearance (Chem 162.78 [facility] Nucleated erythrocytes [Pres ence] in Blood by Automated countOrdered By: Mone Brennan on 11-13-2023 Nucleated RBC Auto Ql (Bld) 0.4 /100{WBC} 0-0.5 [facility] Platelet mean volume [Entiti c volume] in Blood by Automated countOrdered By: Mone Brennan on 11-13-2023 Platelet mean volume (Bld) [Entitic vol] 6.5 fL Normal 6.3-10.7 [facility] Comment on above: Performed By: #### G LULS #### Point of Care testing , Platelets [#/volume] in Bloo d by Automated countOrdered By: Mone Brennan on 11-13-2023 Platelets (Bld) [#/Vol] 422 10*3/uL Normal 150-450 [facility] Comment on above: Performed By: #### G LULS #### Point of Care testing , Potassium [Moles/volume] in Serum or PlasmaOrdered By: Mone Brennan on 11-13-2023 Potassium [Moles/Vol] 3.4 mmol/L Low 3.5-5.1 [facility] Comment on above: Performed By: #### G LULS #### Point of Care testing , Protein Test strip (U) [Mass /Vol]Ordered By: Mone Brennan on 11-13-2023 Protein (U) [Mass/Vol] Negative Negative [facility] Serum or plasma anion gap de terminationOrdered By: Mone Brennan on 11-13-2023 Anion gap [Moles/Vol] 12.5 mmol/L Normal 6.0-15.0 [facility] Comment on above: Performed By: #### G LULS #### Point of Care testing , Sodium [Moles/volume] in Ser um or PlasmaOrdered By: Mone Brennan on 11-13-2023 Sodium [Moles/Vol] 142 mmol/L Normal 136-145 [facility] Comment on above: Performed By: #### G LULS #### Point of Care testing , Specific gravity Test strip (U) [Rel density]Ordered By: Mone Brennan on 11-13-2023 Specific gravity (U) [Rel density] 1.023 1.001-1.030 [facility] Urea nitrogen [Mass/volume] in Serum or PlasmaOrdered By: Mone Brennan on 11-13-2023 Urea nitrogen [Mass/Vol] 7 mg/dL Normal 7-25 [facility] Comment on above: Performed By: #### G LULS #### Point of Care testing , Urinalysison 11-13-2023 Bilirubin,Urine Negative Normal Negative [facility] Comment on above: Order Comment: Name Collection Type:: Voided Performed By: #### U A #### [address] Glucose Ql (U) Normal Normal Normal [facility] Comment on above: Order Comment: Name Collection Type:: Voided Performed By: #### U A #### [address] Nitrite,Urine Negative Normal Negative [facility] Comment on above: Order Comment: Name Collection Type:: Voided Performed By: #### U A #### [address] Occult Blood,Urine Negative Normal Negative [facility] Comment on above: Order Comment: Name Collection Type:: Voided Result Comment: PERF ORMED BY: [place] [address] PATHOLOGIST [employer] OPERATOR GUILLERMINA TOBAR M.D. Performed By: #### U A #### [address] Protein,Urine Negative Normal Negative [facility] Comment on above: Order Comment: Name Collection Type:: Voided Performed By: #### U A #### [address] Specificy [place],Urine 1.023 Normal 1.001-1.030 [facility] Comment on above: Order Comment: Name Collection Type:: Voided Performed By: #### U A #### [address] Urobilinogen,Urine 2 mg/dL High Normal [facility] Comment on above: Order Comment: Name Collection Type:: Voided Performed By: #### U A #### [address] Urine appearanceOrdered By: Mone Brennan on 11-13-2023 Appearance (U) Clear Normal Clear [facility] Comment on above: Order Comment: Name Collection Type:: Voided Performed By: #### U A #### [facility] [address] Urobilinogen Test strip (U) [Mass/Vol]Ordered By: Mone Brennan on 11-13-2023 Urobilinogen (U) [Mass/Vol] 2 mg/dL High Normal [facility] pH of Urine by Test stripOrd ered By: Mone Brennan on 11-13-2023 pH (U) 6.0 [pH] Normal 5.0-9.0 [facility] Comment on above: Order Comment: Name Collection Type:: Voided Performed By: #### U A #### [facility] [address] Glucose Poct Glucometerson 0 11-12-2023 Commemt1 Glu2: Cleaned Meter Normal [facility] Comment on above: Result Comment: PERF ORMED BY: [place] [address] PATHOLOGIST [employer] OPERATOR GUILLERMINA TOBAR M.D. Performed By: #### G LULS #### Point of Care testing , Glucose [Mass/Vol] 107 mg/dL Normal [facility] Comment on above: Result Comment: [place] om Glucose Reference Range is dependent on time and content of last meal. Glucose of more than 200 mg/dL in a nonstressed, ambulatory subject supports the diagnosis of Diabetes Mellitus. Performed By: #### G LULS #### Point of Care testing , Glucose Poct Glucometerson 0 11-11-2023 Commemt1 Glu2: Cleaned Meter Normal [facility] Comment on above: Result Comment: PERF ORMED BY: [place] [address] PATHOLOGIST [employer] OPERATOR GUILLERMINA TOBAR M.D. Performed By: #### G LULS #### Point of Care testing , Glucose [Mass/Vol] 98 mg/dL Normal [facility] Comment on above: Result Comment: [place] om Glucose Reference Range is dependent on time and content of last meal. Glucose of more than 200 mg/dL in a nonstressed, ambulatory subject supports the diagnosis of Diabetes Mellitus. Performed By: #### G LULS #### Point of Care testing , Glucose Poct Glucometerson 0 11-10-2023 Glucose [Mass/Vol] 118 mg/dL Normal [facility] Comment on above: Result Comment: [place] om Glucose Reference Range is dependent on time and content of last meal. Glucose of more than 200 mg/dL in a nonstressed, ambulatory subject supports the diagnosis of Diabetes Mellitus. PERFORMED BY: [place] [address] PATHOLOGIST [employer] OPERATOR GUILLERMINA TOBAR M.D. Performed By: #### G LULS #### Point of Care testing , Glucose Poct Glucometerson 0 11-09-2023 Glucose [Mass/Vol] 134 mg/dL Normal [facility] Comment on above: Result Comment: [place] om Glucose Reference Range is dependent on time and content of last meal. Glucose of more than 200 mg/dL in a nonstressed, ambulatory subject supports the diagnosis of Diabetes Mellitus. PERFORMED BY: [place] [address] PATHOLOGIST [employer] OPERATOR GUILLERMINA TOBAR M.D. Performed By: #### G LULS #### Point of Care testing , 36on 11-08-2023 36 I spoke with Nohemi the nurse caring for Ms Palma. She stated she is doing well and experiencing mild pain. She denies any redness, drainage or major swelling. She confirmed her post op appointment on November 18 at 115. They had no questions or concerns. Normal [facility] A1C with Estimated Average G luon 11-08-2023 Glucose [Mass/Vol] 134 mg/dL Normal [facility] Comment on above: Result Comment: PERF ORMED BY: [place] [address] PATHOLOGIST [employer] OPERATOR GUILLERMINA TOBAR M.D. Performed By: #### A 1C [facility] #### [address] Glucose Poct Glucometerson 0 8-29-2024 Commemt1 Glu2: Cleaned Meter Normal [facility] Comment on above: Result Comment: PERF ORMED BY: [place] [address] PATHOLOGIST [employer] OPERATOR GUILLERMINA TOBAR M.D. Performed By: #### G LULS #### Point of Care testing , Glucose [Mass/Vol] 132 mg/dL Normal [facility] Comment on above: Result Comment: [place] Glucose Reference Range is dependent on time and content of last meal. Glucose of more than 200 mg/dL in a nonstressed, ambulatory subject supports the diagnosis of Diabetes Mellitus. Performed By: #### G LULS #### Point of Care testing , Glucose mean value [Mass/vol ume] in Blood Estimated from glycated hemoglobinOrdered By: Mone Brenann on 11-08-2023 Average glucose Estimated from glycated hemoglobin (Bld) [Mass/Vol] 134 mg/dL [facility] Hemoglobin A1c percentageOrd ered By: Mone Brennan on 11-08-2023 HbA1c (Bld) [Mass fraction] 6.3 % High 4.3-5.6 [facility] Comment on above: Increased risk for d iabetes: 5.7 - 6.4diabetes: >6.4glycemic control for adults with diabetes: <7.0 Result Comment: Incr eased risk for diabetes: 5.7 - 6.4 diabetes: >6.4 glycemic control for adults with diabetes: <7.0 Performed By: #### A 1C WT eA #### [facility] [address] Alanine aminotransferase [En zymatic activity/volume] in Serum or PlasmaOrdered By: Jonny Bentley on 11-07-2023 ALT [Catalytic activity/Vol] 13 U/L Normal [facility] Comment on above: Performed By: #### G LULS #### Point of Care testing , Albumin [Mass/volume] in Ser um or Plasma by Bromocresol green (BCG) dye binding methoOrdered By: Jonny Bentley on 11-07-2023 Albumin BCG dye [Mass/Vol] 3.1 g/dL Low 3.5-5.7 [facility] Alkaline phosphatase [Enzyma tic activity/volume] in Serum or PlasmaOrdered By: Jonny Bentley on 11-07-2023 ALP [Catalytic activity/Vol] 108 U/L High 34-104 [facility] Comment on above: Performed By: #### G LULS #### Point of Care testing , Aspartate aminotransferase [ Enzymatic activity/volume] in Serum or PlasmaOrdered By: Jonny Bentley on 11-07-2023 AST [Catalytic activity/Vol] 19 U/L Normal 13-39 [facility] Comment on above: Performed By: #### G LULS #### Point of Care testing , Bilirubin.total [Mass/volume ] in Serum or PlasmaOrdered By: Jonny Bentley on 11-07-2023 Bilirubin [Mass/Vol] 0.5 mg/dL Normal 0.3-1.0 [facility] Comment on above: Performed By: #### G LULS #### Point of Care testing , Complete Blood Count Auto Di ffon 11-07-2023 Basophils (Bld) [#/Vol] 0.0 10*3/uL Normal 0.0-0.2 [facility] Comment on above: Result Comment: PERF ORMED BY: [facility] [place] [address] PATHOLOGIST [employer] OPERATOR GUILLERMINA TOBAR M.D. Performed By: #### G LULS #### Point of Care testing , Basophils/100 WBC (Bld) 0.5 % Normal . [facility] Comment on above: Performed By: #### G LULS #### Point of Care testing , Eosinophils (Bld) [#/Vol] 0.1 10*3/uL Normal 0.0-0.45 [facility] Comment on above: Performed By: #### G LULS #### Point of Care testing , Eosinophils/100 WBC (Bld) 1.5 % Normal . [facility] Comment on above: Performed By: #### G LULS #### Point of Care testing , Erythrocyte distribution width (RBC) [Ratio] 14.4 % Normal 11.9-15.3 [facility] Comment on above: Performed By: #### G LULS #### Point of Care testing , Hematocrit (Bld) [Volume fraction] 30.1 % Low 34.0-46.4 [facility] Comment on above: Performed By: #### G LULS #### Point of Care testing , Hemoglobin (Bld) [Mass/Vol] 10.1 g/dL Low 11.8-15.4 [facility] Comment on above: Performed By: #### G LULS #### Point of Care testing , Lymphocytes (Bld) [#/Vol] 1.5 10*3/uL Normal 1.00-4.8 [facility] Comment on above: Performed By: #### G LULS #### Point of Care testing , Lymphocytes/100 WBC (Bld) 30.0 % Normal . [facility] Comment on above: Performed By: #### G LULS #### Point of Care testing , MCH (RBC) [Entitic mass] 30.7 pg Normal 24.7-34.3 [facility] Comment on above: Performed By: #### G LULS #### Point of Care testing , MCV (RBC) [Entitic vol] 91.3 fL Normal 80-100 [facility] Comment on above: Performed By: #### G LULS #### Point of Care testing , Mean Corpuscular HGB Conc 33.7 g/dL Normal 32.0-35.0 [facility] Comment on above: Performed By: #### G LULS #### Point of Care testing , Monocytes (Bld) [#/Vol] 0.6 10*3/uL Normal 0.0-0.8 [facility] Comment on above: Performed By: #### G LULS #### Point of Care testing , Monocytes/100 WBC (Bld) 12.2 % Normal . [facility] Comment on above: Performed By: #### G LULS #### Point of Care testing , Neutrophils (Bld) [#/Vol] 2.8 10*3/uL Normal 1.8-7.7 [facility] Comment on above: Performed By: #### G LULS #### Point of Care testing , Neutrophils/100 WBC (Bld) 55.8 % Normal . [facility] Comment on above: Performed By: #### G LULS #### Point of Care testing , NRBC% 0.3 /100{WBC} Normal 0-0.5 [facility] Comment on above: Performed By: #### G LULS #### Point of Care testing , Platelet mean volume (Bld) [Entitic vol] 6.5 fL Normal 6.3-10.7 [facility] Comment on above: Performed By: #### G LULS #### Point of Care testing , Platelets (Bld) [#/Vol] 375 10*3/uL Normal 150-450 [facility] Comment on above: Performed By: #### G LULS #### Point of Care testing , RBC (Bld) [#/Vol] 3.30 10*6/uL Low 3.60-5.00 [facility] Comment on above: Performed By: #### G LULS #### Point of Care testing , WBC (Bld) [#/Vol] 5.0 10*3/uL Normal 3.8-11.6 [facility] Comment on above: Performed By: #### G LULS #### Point of Care testing , Comprehensive Metabolic Pane caleb 11-07-2023 Albumin [Mass/Vol] 3.1 g/dL Low 3.5-5.7 [facility] Comment on above: Performed By: #### G LULS #### Point of Care testing , Anion gap [Moles/Vol] 9.5 mmol/L Normal 6.0-15.0 [facility] Comment on above: Performed By: #### G LULS #### Point of Care testing , Calcium [Mass/Vol] 8.4 mg/dL Low 8.6-10.3 [facility] Comment on above: Performed By: #### G LULS #### Point of Care testing , Chloride [Moles/Vol] 107 mmol/L Normal 98-107 [facility] Comment on above: Performed By: #### G LULS #### Point of Care testing , CO2 [Moles/Vol] 27.0 mmol/L Normal 21.0-31.0 [facility] Comment on above: Performed By: #### G LULS #### Point of Care testing , Creatinine [Mass/Vol] 0.60 mg/dL Normal 0.60-1.20 [facility] Comment on above: Performed By: #### G LULS #### Point of Care testing , Creatinine Clr Calc Pharmacy 177.69 Normal [facility] Comment on above: Performed By: #### G LULS #### Point of Care testing , GFR/1.73 sq M.predicted MDRD (S/P/Bld) [Vol rate/Area] mL/min/{1.73_m2} Normal [facility] Comment on above: Performed By: #### G LULS #### Point of Care testing , Glucose [Mass/Vol] 105 mg/dL High 70-100 [facility] Comment on above: Result Comment: [facility] Glucose Reference Range is dependent on time and content of last meal. Glucose of more than 200 mg/dL in a nonstressed, ambulatory subject supports the diagnosis of Diabetes Mellitus. ADA recommended reference range Performed By: #### G LULS #### Point of Care testing , Potassium [Moles/Vol] 3.5 mmol/L Normal 3.5-5.1 [facility] Comment on above: Performed By: #### G LULS #### Point of Care testing , Sodium [Moles/Vol] 140 mmol/L Normal 136-145 [facility] Comment on above: Performed By: #### G LULS #### Point of Care testing , Urea nitrogen [Mass/Vol] 6 mg/dL Low 7-25 [facility] Comment on above: Performed By: #### G LULS #### Point of Care testing , Glucose Poct Glucometerson 0 11-07-2023 Glucose [Mass/Vol] 172 mg/dL Normal [facility] Comment on above: Result Comment: [facility] Glucose Reference Range is dependent on time and content of last meal. Glucose of more than 200 mg/dL in a nonstressed, ambulatory subject supports the diagnosis of Diabetes Mellitus. PERFORMED BY: [address] [address] PATHOLOGIST [employer] OPERATOR GUILLERMINA TOBAR M.D. Performed By: #### G LULS #### Point of Care testing , Prealbumin [Mass/volume] in Serum or PlasmaOrdered By: Jonny Bentley on 11-07-2023 Prealbumin [Mass/Vol] 11.3 mg/dL Low 17.0-34.0 [facility] Comment on above: Result Comment: PERF ORMED BY: [address] [address] PATHOLOGIST [employer] OPERATOR GUILLERMINA TOBAR M.D. Performed By: #### G LULS #### Point of Care testing , Protein [Mass/volume] in Ser um or PlasmaOrdered By: Jonny Bentley on 11-07-2023 Protein [Mass/Vol] 6.3 g/dL Low 6.4-8.9 [facility] Comment on above: Performed By: #### G LULS #### Point of Care testing , Serum globulin measurement b y calculation (mass/volume)Ordered By: Jonny Bentley on 11-07-2023 Globulin (S) [Mass/Vol] 3.2 g/dL [facility] Comment on above: Performed By: #### G LULS #### Point of Care testing , Serum or plasma albumin/glob ulin mass ratioOrdered By: Jonny Bentley on 11-07-2023 Albumin/Globulin [Mass ratio] 1.0 {ratio} [facility] Comment on above: Performed By: #### G LULS #### Point of Care testing , XR knee LT 2Von 11-07-2023 XR knee LT 2V [facility] [place] [address] [place] [id number] XRay Report Signed Patient: Navdeep Palma MR#: [id number] : 1975 Acct:[id number] Age/Sex: 48 / F ADM Date: 11/06/23 Loc: Room: 8K9066-8 Type: ADM IN Attending Dr: Jonny Bentley [...] Allie Greenfield M.D.11/07/2023 3:23 PM Dictation Location: [place] [address] Transcribed By: [facility] 11/07/23 1523 Dictated By: Allie Greenfield MD 11/07/23 1521 Signed By: 11/07/23 1523 Normal [facility] 30on 11-06-2023 30 Daily Case Managemen t Update Multidisciplinary rounds have been completed. Barriers to Discharge: Sent message via [employer] to [facility] and requested a call back concerning discharge today. 8:14 Received a call form [facility] and they have a bed available for today just needed updates sent (SW notified ). Requesting a 2:00 transport. 10:05 [facility] is requesting a more recent OT note-OT notified via [employer] chat. 11:57 Faxed OT note per facility request [...] discharge eval, s/p total knee 10/31/23 1025 [facility] 30 The patient is Moderately Stable [...] barriers include waiting return call from [facility]. [facility] CONSULTon 11-06-2023 CONSULT 8:40-SW notifed by Lizz jones [facility] is able to accept patient today at 2:00pm pending sent documentation. faxed documentation to [facility]. to arrange transportation for 1:00pm for patient to arrive at 2:00pm 10:00- received phone call from [facility]. They need an updated OT note, the AVS, and Auth Letter faxed. OT is notified of needed re-eval. informed by [facility] they can accept patient at 2:00pm, but at the latest she would need to leave [facility] would be 6:00pm. 10:30-Patient is on will call for transportation. 12:00- confirmed a 3:30pm transport time for patient. Packet completed, to notify facility and patient. 12:20-Discharge order placed. AVS faxed to [facility]. Transport set up with [place] at 3:30pm. Transport form and packet completed and left beside the chart. Facility,patient, and floor RN aware of transport time. Phone number for report left with packet. 15:30- notified by [place] that transport has been pushed to 4:30pm as additional crews needed to be contacted. No further OTM needs at this time. [facility] NURSNOTEon 11-06-2023 NURSNOTE Report called to [facility], all questions answered. Callback number left in case of other question when patient arrives. [facility] CONSULTon 11-05-2023 CONSULT 15:50-SW called [facility] IPR to check on bed availability as OTM was notified of precert approval. They were unavailable- and contact information was left. OTM will continue to follow. [facility] 30on 11-04-2023 30 The patient is Moderately Stable [...] monitored and maintained or improved Outcome: Progressing [facility] 30on 11-02-2023 30 Daily Case Managemen t Update Multidisciplinary rounds have been completed. Barriers to Discharge: Called [facility] in regards to IPR acceptance-left message for a return phone due to no response in [facility]. 9:38 Called [facility] again and spoke with Janet concerning acceptance. She stated it is in review and stated that she would get an answer at the 11:00 meeting. Await acceptance. 11:53 Received a call from [facility] requesting additional clinical. Uploaded and faxed requested clinical. Await determination of acceptance. 14;32 Received a phone call from Janet at [facility] and they are able to accepted. Sent an apic message to Ary requesting she state precert. Diet: Dietary Orders (From admission, onward) Start Ordered 10/31/23 1640 Regular Diet Diet effective now Question: Room Service? Answer: Yes 10/31/23 7709 Physician Expected Discharge Date: 11/02/2023 Discharge Delays: [...] eval, s/p total knee 10/31/23 1025 Normal [facility] 30on 11-01-2023 30 Daily Case Managemen t Update Multidisciplinary rounds have been completed. Barriers to Discharge: Pending clinical course and improvement in clinical condition. POD 1 ARTHROPLASTY, KNEE, TOTAL (L). 12:49 PT recommending IPR. Await choices-Sw aware. 17:30 Referral sent IPR [facility] sent for placement. Await acceptance then precert. [...] eval, s/p total knee 10/31/23 1025 Normal [facility] BASIC METABOLIC PANELon 08- Anion gap [Moles/Vol] 14 mmol/L Normal 7-20 [facility] Comment on above: Performed By: #### L [id number] #### [facility] ([facility]) [address] [place] [address] Calcium [Mass/Vol] 7.9 mg/dL Low 8.6-10.3 [facility] Comment on above: Performed By: #### L [id number] #### [facility] ([facility]) [address] [place] [address] Chloride [Moles/Vol] 101 mmol/L Normal 98-107 [facility] Comment on above: Performed By: #### L [id number] #### [facility] ([facility]) [address] [place] [address] CO2 [Moles/Vol] 25 mmol/L Normal 21-31 [facility] Comment on above: Performed By: #### L [id number] #### [facility] ([facility]) [address] [place] [address] Creatinine [Mass/Vol] 0.66 mg/dL Normal 0.60-1.20 [facility] Comment on above: Performed By: #### L [id number] #### [facility] ([facility]) [address] [place] [address] GLOMERULAR FILTRATION RATE ML/MIN/1.73 SQ M.PREDICTED 106.8 mL/min/1.73m*2 Normal >60.0 [facility] Comment on above: Result Comment: [facility]???s estimated glomerular filtration rate (eGFR) will no [...] of individuals. Performed By: #### L [id number] #### [facility] ([facility]) [address] [place] [address] Glucose [Mass/Vol] 183 mg/dL High 70-100 [facility] Comment on above: Performed By: #### L [id number] #### [facility] ([facility]) [address] [place] [address] Potassium [Moles/Vol] 3.6 mmol/L Normal 3.5-5.1 [facility] Comment on above: Performed By: #### L [id number] #### [facility] ([facility]) [address] [place] [address] Sodium [Moles/Vol] 136 mmol/L Normal 136-145 [facility] Comment on above: Performed By: #### L [id number] #### [facility] ([facility]) [address] [place] [address] Urea nitrogen [Mass/Vol] 9 mg/dL Normal 7-25 [facility] Comment on above: Performed By: #### L [id number] #### [facility] ([facility]) [address] [place] [address] UREA NITROGEN/CREATININE (MASS RATIO) IN SER/PLAS 13.6 Normal [facility] Comment on above: Performed By: #### L [id number] #### [facility] ([facility]) [address] [place] [address] CBCon 11-01-2023 Erythrocyte distribution width (RBC) [Ratio] 14.8 % Normal 11.5-15.0 [facility] Comment on above: Performed By: #### L [id number] ####[facility] ([facility])[address] [place] [address] ERYTHROCYTE MEAN CORPUSCULAR HEMOGLOBIN CONCENTRATION (G/DL) BY AUTOMATED 32.2 g/dL Normal 32.0-35.0 [facility] Comment on above: Performed By: #### L [id number] ####[facility] ([facility]AKER)[address] [place] [address] Hematocrit (Bld) [Volume fraction] 33.2 % Low 36.0-48.0 [facility] Comment on above: Performed By: #### L [id number] ####[facility] ([facility])[address] [place] [address] Hemoglobin (Bld) [Mass/Vol] 10.7 g/dL Low 12.0-15.0 [facility] Comment on above: Performed By: #### L [id number] ####[facility] ([facility])[address] [place] [address] MCH (RBC) [Entitic mass] 30.1 pg Normal 27.0-33.0 [facility] Comment on above: Performed By: #### L [id number] ####[facility] ([facility])[address] [place] [address] MCV (RBC) [Entitic vol] 93.5 fL Normal 82.0-98.0 [facility] Comment on above: Performed By: #### L [id number] ####[facility] ([facility])[address] [place], [place] [address] PLATELETS (10*3/UL) IN BLOOD AUTOMATED COUNT 305 10*3/uL Normal 150-400 [facility] Comment on above: Performed By: #### L [id number] ####[facility] ([facility])[address] [place], [place] [address] RBC (Bld) [#/Vol] 3.55 10*6/uL Low 3.80-5.00 [facility] Comment on above: Performed By: #### L [id number] ####[facility] ([facility])[address] [place] [address] WBC (Bld) [#/Vol] 7.89 10*3/uL Normal 4.00-10.60 [facility] Comment on above: Performed By: #### L [id number] ####[facility] ([facility])[address] [place] [address] 36on 10-31-2023 36 Note faxed [facility] 36 Gerard needs the note to state this specifically to get dme equipment approved Scottie will significantly approve mobility limitations/ mradls Getting to the restroom , around the house, appointments With the commode medicaid would cover if the restroom is on second floor, or room confined. Call Gerard once this has been or for further clarification before sending ammeded note For DME equipment Normal [facility] Anesthesiaon 10-31-2023 Anesthesia [id number] MinervaBonillacarlos Bey 1975 F Date Provider Department Center 10/31/2023 4029-TYLER FOLR [facility] OR [facility] Family History Problem Relation Age of Onset Cancer Mother Family Status - Relation Status Age at Mother [facility] CONSULTon 10-31-2023 CONSULT -- Attestation signed by Kim Stafford MD at 11/03/2023 10:55 AM GC: I saw this patient. I personally personally the critical/humphries portions that determines the level of service. I was directly involved in the management and treatment plan of the patient. I reviewed Richard Smith MD's note and agree. Principal Problem: Primary osteoarthritis of left knee Active Problems: Essential hypertension Morbid obesity with body mass index of 50 or higher (CMS/HCC) SOPHIE (obstructive sleep apnea) Status post total knee replacement using cement, left Hypoxia Hypoxia likely combination of obesity hypoventilation and anesthesia. Reviewed and approved by KIM STAFFORD on 11/03/23 at 10:55 AM. [facility] Inpatient Consult Note Patient - Navdeep Palma Age - 48 y.o. - 1975 [facility] # - [id number] Date of Admission - 10/31/2023 6:41 AM [...] Left knee pain, Lupus (systemic lupus erythematosus) ([facility]/HCC), Migraine, Obesity, Osteoarthritis, and Sleep apnea. PSH: [...] 325 mg, 325 mg, oral, BID, Mandi Scott DO ceFAZolin (Ancef) 3 g in sodium chloride [...] mg, 100 mg, oral, BID, Mandi Scott, DO HYDROmorphone (Dilaudid) injection 0.2 mg, 0.2 mg, intravenous, q3h PRN, Mandi Scott, DO HYDROmorphone (Dilaudid) injection 0.3 mg, 0.3 mg, [...] mg, 0.2 mg, subcutaneous, PRN, Mandi Scott, ondansetron HCl (PF) (Zofran) injection 4 mg, [...] mg, 4 mg, intravenous, q6h PRN, Mandi Alstonw, DO oxyCODONE (Roxicodone) immediate release split tablet 2.5 mg, 2.5 mg, oral, q6h PRN OR oxyCODONE (Roxicodone) immediate release tablet 5 mg, 5 mg, oral, q6h PRN, Mandi Reevesmew, DO Oxygen Therapy, , inhalation, Continuous PRN, [...] MD Insert perip (more content not included)... [facility] HPon 10-31-2023 HP H&P reviewed. The patient was examined and there are no changes to the H&P. [facility] HP H&P reviewed. The patient was examined and there are no changes to the H&P. [facility] NURSNOTEon 10-31-2023 NURSNOTE RN called [facility] and anthony d them they can come work w/pt. [facility] NURSNOTE Pt complaining of a lot of pain RN spoke to anesthesia doing a second nerve block not an option adding more pain meds. 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 Triathlon X3 total bearing insert posterior stabilized size 5, 13 mm thickness Triathlon X3 asymmetric patella size A 35,10 mm thickness Primary Triathlon, [place] tibial base plate size 5 Triathlon Left femoral implant size 5, PS left side Triathlon Cemented stem 15x 50 mm [employer] bone cement, total of 2 batches. Surgeons Primary: Lyssa Park MD Resident - Assisting: Mandi Scott DO; MD Boni Rosas rehab care assistant Commodity Director: Dr Zane Barfield MD Procedure Summary Anesthesia: General ASA: I Estimated Blood Loss: 50 mL Total tourniquet time is 68 minutes. Total IV Fluids: Please see anesthesia chart mL Drains: * None in log * Implants Type Name Action Serial No. Bone Cement CEMENT,BONE,R,1X40US - [id number] Implanted Total Joint PIN,FIXATION,KONG,L3 - [id number] Implanted Total Joint TIBIAL BASE,UNIVERSAL,#5 - [id number] Implanted Total Joint PATELLAR,TRIATHLON,X3, 00U97AG - [id number] Implanted Total Joint FEMORAL,TRIATHLON,LFT, 5 - [id number] Implanted Total Joint STEM,CEMENTED,TS,15X50 MM - [id number] Implanted Total Joint TIBIAL BEARING INSERT Implanted Staff: Guest Services Director: Elvie Dunham RN Scrub Person: Marbella Gross CST Supervisor Dumping: Boni Yousif CSA Indications: Domingo Palma is [...] -left primary cemented total knee arthroplasty using [place] triathlon implants without without lateral release and [...] Quadricepsplasty, blood transfusion due to blood loss, 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 [facility] POCT GLUCOSE METER UNSOLICIT ED RESULTSon 10-31-2023 Glucose [Mass/Vol] 140 mg/dL High 70-105 [facility] Comment on above: Order Comment: Waive d Testing in the ED is performed under the ED CLIA certificate #[id number]. Result Comment: onel lee Performed By: #### L [id number] #### [facility] ([facility]) [address] [place] [address] 36on 10-29-2023 36 Patient requesting call back from re, wanting to ask her a question regarding home health [facility] 36on 10-25-2023 36 NOTE FAXED [facility] 36on 10-24-2023 36 Zane called to request [...] the rollator will improve patient mobility deficits. Fax#[phone] [facility] 36 NOTE FAXED. [facility] 36on 10-22-2023 36 Patient needs signed note from last visit, demographics, faxed to [phone] [facility] APTTon 10-22-2023 ACTIVATED PARTIAL THROMBOPLASTIN TIME IN PPP BY COAGULATION ASSAY 27.5 Seconds Normal 25.0-35.0 [facility] Comment on above: Result Comment: Clin ical significance of the APTT is questionable in the presence of heparin. Performed By: #### L [id number] #### [facility] ([facility]) [address] [place] [address] CBC WITH AUTO DIFFERENTIALon 10-22-2023 Basophils (Bld) [#/Vol] 0.01 10*3/uL Normal 0.00-0.20 [facility] Comment on above: Performed By: #### L [id number] #### [facility] ([facility]) [address] [facility] [place] [address] Basophils/100 WBC (Bld) 0.3 % Normal 0.0-1.0 [facility] Comment on above: Performed By: #### L [id number] #### [facility] (BEAKER) [address] [place] [address] Eosinophils (Bld) [#/Vol] 0.03 10*3/uL Normal 0.00-0.50 [facility] Comment on above: Performed By: #### L [id number] #### [facility] ([facility]AKER) [address] [place] [address] Eosinophils/100 WBC (Bld) 1.0 % Normal 0.0-6.0 [facility] Comment on above: Performed By: #### L [id number] #### [facility] ([facility]) [address] [place] [address] Erythrocyte distribution width (RBC) [Ratio] 14.6 % Normal 11.5-15.0 [facility] Comment on above: Performed By: #### L [id number] #### [facility] ([facility]) [address] [place] [address] ERYTHROCYTE MEAN CORPUSCULAR HEMOGLOBIN CONCENTRATION (G/DL) BY AUTOMATED 32.7 g/dL Normal 32.0-35.0 [facility] Comment on above: Performed By: #### L [id number] #### [facility] ([facility]) [address] [place] [address] Hematocrit (Bld) [Volume fraction] 38.2 % Normal 36.0-48.0 [facility] Comment on above: Performed By: #### L [id number] #### [facility] ([facility]) [address] [place] [address] Hemoglobin (Bld) [Mass/Vol] 12.5 g/dL Normal 12.0-15.0 [facility] Comment on above: Performed By: #### L [id number] #### [facility] ([facility]) [address] [place] [address] Immature granulocytes (Bld) [#/Vol] 0.00 10*3/uL Normal 0.00-0.20 [facility] Comment on above: Performed By: #### L [id number] #### [facility] ([facility]) [address] [place] [address] Immature granulocytes/100 WBC (Bld) 0.0 % Normal 0.0-1.0 [facility] Comment on above: Performed By: #### L [id number] #### [facility] ([facility]) [address] [place] [address] Lymphocytes (Bld) [#/Vol] 1.26 10*3/uL Normal 1.20-4.00 [facility] Comment on above: Performed By: #### L [id number] #### [facility] ([facility]) [address] [place] [address] Lymphocytes/100 WBC (Bld) 40.3 % Normal 20.0-45.0 [facility] Comment on above: Performed By: #### L [id number] #### [facility] ([facility]) [address] [place] [address] MCH (RBC) [Entitic mass] 30.1 pg Normal 27.0-33.0 [facility] Comment on above: Performed By: #### L [id number] #### [facility] ([facility]) [address] [place] [address] MCV (RBC) [Entitic vol] 92.0 fL Normal 82.0-98.0 [facility] Comment on above: Performed By: #### L [id number] #### [facility] ([facility]) [address] [place] [address] Monocytes (Bld) [#/Vol] 0.31 10*3/uL Normal 0.10-1.00 [facility] Comment on above: Performed By: #### L [id number] #### [facility] ([facility]) [address] [place] [address] Monocytes/100 WBC (Bld) 9.9 % Normal 5.0-12.0 [facility] Comment on above: Performed By: #### L [id number] #### [facility] ([facility]) [address] [place] [address] Neutrophils (Bld) [#/Vol] 1.52 10*3/uL Low 1.60-7.60 [facility] Comment on above: Performed By: #### L [id number] #### [facility] ([facility]) [address] [place] [address] Neutrophils/100 WBC (Bld) 48.5 % Normal 40.0-72.0 [facility] Comment on above: Performed By: #### L [id number] #### [facility] ([facility]) [address] [place] [address] NRBC (PER 100 WBCS) BY AUTOMATED COUNT 0.0 % Normal 0 [facility] Comment on above: Performed By: #### L [id number] #### [facility] ([facility]) [address] [place] [address] PLATELETS (10*3/UL) IN BLOOD AUTOMATED COUNT 369 10*3/uL Normal 150-400 [facility] Comment on above: Performed By: #### L [id number] #### [facility] ([facility]) [address] [place] [address] RBC (Bld) [#/Vol] 4.15 10*6/uL Normal 3.80-5.00 [facility] Comment on above: Performed By: #### L [id number] #### [facility] ([facility]) [address] [place] [address] WBC (Bld) [#/Vol] 3.13 10*3/uL Low 4.00-10.60 [facility] Comment on above: Performed By: #### L [id number] #### [facility] ([facility]) [address] [place] [address] COMPREHENSIVE METABOLIC PANE Caleb 10-22-2023 Albumin [Mass/Vol] 3.7 g/dL Normal 3.5-5.7 [facility] Comment on above: Performed By: #### L [id number] #### [facility] ([facility]) [address] [place] [address] ALP [Catalytic activity/Vol] 137 U/L High 34-104 [facility] Comment on above: Performed By: #### L [id number] #### [facility] ([facility]) [address] [place] [address] ALT [Catalytic activity/Vol] 12 U/L Normal 7-52 [facility] Comment on above: Performed By: #### L [id number] #### [facility] ([facility]) [address] [place] [address] Anion gap [Moles/Vol] 12 mmol/L Normal 7-20 [facility] Comment on above: Performed By: #### L [id number] #### [facility] ([facility]) [address] [place] [address] AST [Catalytic activity/Vol] 19 U/L Normal 13-39 [facility] Comment on above: Performed By: #### L [id number] #### [facility] ([facility]) [address] [place] [address] Bilirubin [Mass/Vol] 0.4 mg/dL Normal 0.3-1.0 [facility] Comment on above: Performed By: #### L [id number] #### [facility] ([facility]) [address] [place] [address] Calcium [Mass/Vol] 8.2 mg/dL Low 8.6-10.3 [facility] Comment on above: Performed By: #### L [id number] #### [facility] ([facility]) [address] [place] [address] Chloride [Moles/Vol] 105 mmol/L Normal 98-107 [facility] Comment on above: Performed By: #### L [id number] #### [facility] ([facility]) [address] [place] [address] CO2 [Moles/Vol] 26 mmol/L Normal 21-31 [facility] Comment on above: Performed By: #### L [id number] #### [facility] ([facility]) [address] [place] [address] Creatinine [Mass/Vol] 0.65 mg/dL Normal 0.60-1.20 [facility] Comment on above: Performed By: #### L [id number] #### [facility] ([facility]) [address] [place] [address] GLOMERULAR FILTRATION RATE ML/MIN/1.73 SQ M.PREDICTED 107.2 mL/min/1.73m*2 Normal >60.0 [facility] Comment on above: Result Comment: [facility]???s estimated glomerular filtration rate (eGFR) will no [...] group of individuals. Performed By: #### L [id number] #### [facility] ([facility]) [address] [place] [address] Glucose [Mass/Vol] 112 mg/dL High 70-100 [facility] Comment on above: Performed By: #### L [id number] #### [facility] ([facility]) [address] [place] [address] Potassium [Moles/Vol] 3.5 mmol/L Normal 3.5-5.1 [facility] Comment on above: Performed By: #### L [id number] #### [facility] ([facility]) [address] [place] [address] Protein [Mass/Vol] 7.2 g/dL Normal 6.0-8.3 [facility] Comment on above: Performed By: #### L [id number] #### [facility] ([facility]) [address] [place] [address] Sodium [Moles/Vol] 139 mmol/L Normal 136-145 [facility] Comment on above: Performed By: #### L [id number] #### [facility] ([facility]) [address] [place] [address] Urea nitrogen [Mass/Vol] 7 mg/dL Normal 7-25 [facility] Comment on above: Performed By: #### L [id number] #### [facility] ([facility]) [address] [place] [address] UREA NITROGEN/CREATININE (MASS RATIO) IN SER/PLAS 10.8 Normal [facility] Comment on above: Performed By: #### L [id number] #### [facility] ([facility]) [address] [place] [address] Consulton 10-22-2023 Consult [id number] Apolonia Palma 1975 F Date Provider Department Center 10/22/2023 LYSSA MATSON MP ORTHO [facility] Family History Problem Relation Age of Onset Cancer Mother Family Status - Relation Status Age at Mother Level of Service:54737 ID OFFICE/OUTPATIENT ESTABLISHED MOD MDM 30 MIN (57,GC) Reason for Visit and Comments: Pre-op Visit [558] Pain [136] Normal [facility] HPon 10-22-2023 HP Patient ID: Domingo Palma [...] currently weightbearing as tolerated. Current treatments are [id number] ibuprofen and Tylenol, ice, rest, elevation, bracing, [...] the knee joint with posterolateral subluxation. Where: [facility] Date: 07/23/2023 x-ray left knee(s) : Complete [...] left primary cemented total knee arthroplasty using [place] implants were discussed at length with the [...] with the patient (more content not included)... Normal [facility] Orthopedic Surgery Subjective Chief complaint: [...] Left knee pain Lupus (systemic lupus erythematosus) (CMS/[facility]) Migraine Obesity BMI 54.55 Osteoarthritis Sleep apnea [...] from me. Dr. Lyssa Park MD MRCSEd [employer]erical [employer]er orthopedic surgery Adult Reconstruction and Trauma [facility]. Normal [facility] Labon 10-22-2023 Lab [id number] Apolonia Palma L 1975 F Date Provider Department Center 10/22/2023 224-[facility] MP LAB RESOURCE MP DRAW Medical Pavi Family History Problem Relation Age of Onset Cancer Mother Family Status - Relation Status Age at Mother Normal [facility] MRSA/MSSA DNA NASALon 2023 MRSA DNA Negative Normal Negative [facility] Comment on above: Order Comment: Testi ng [...] preclude nasal colonization. Performed By: #### L [id number] ####[facility] ([address] [place] [address] MSSA DNA Negative Normal Negative [facility] Comment on above: Order Comment: Testi ng [...] preclude nasal colonization. Performed By: #### L [id number] ####[facility] ([facility])[address] [place] [address] PROTIME-INRon 10-22-2023 INR IN PPP BY COAGULATION ASSAY 1.02 Normal 0.90-1.10 [facility] Comment on above: Result Comment: [facility] P RECOMMENDED INR FOR WARFARIN THERAPY CONDITION [...] 1995;108:231S-246S. Performed By: #### L [id number] #### [facility] ([facility]) [address] [place] [address] PROTHROMBIN TIME (PT) IN PPP BY COAGULATION ASSAY 13.4 Seconds Normal 12.3-14.8 [facility] Comment on above: Performed By: #### L [id number] #### [facility] ([facility]) [address] [place] [address] TYPE AND SCREENon 10-22-2023 AB SCREEN Negative Normal [facility] Comment on above: Performed By: #### L [id number] #### [facility] BLOOD BANK , ABO group Nom (Bld) O Normal [facility] Comment on above: Performed By: #### L [id number] #### [facility]OD [facility] , RH TYPE IN BLOOD Positive Normal [facility] Comment on above: Performed By: #### L [id number] #### [facility] , Telephoneon 10-22-2023 Telephone [id number] Apolonia Palma 1975 F Date Provider Department [place] 10/22/2023 [id number] Family History Problem Relation Age of Onset Cancer Mother Family Status - Relation Status Age at Mother Normal [facility] URINALYSIS MICROSCOPIC WITH REFLEX CULTUREon 10-22-2023 CASTS IN URINE Normal [facility] Comment on above: Performed By: #### L [id number] #### [facility] ([facility]) [address] [place] [address] CRYSTALS IN URINE Normal [facility] Comment on above: Performed By: #### L [id number] #### [facility] ([facility]) [address] [place] [address] MUCUS (#/HPF) IN URINE SEDIMENT Many Abnormal None Seen, Occasional, Few [facility] Comment on above: Performed By: #### L [id number] #### [facility] ([facility]) [address] [place] [address] OTHER MICROSCOPIC ELEMENTS Normal [facility] Comment on above: Performed By: #### L [id number] #### [facility] ([facility]) [address] [place] [address] RBC (#/HPF) IN URINE SEDIMENT 0-2 Abnormal None Seen [facility] Comment on above: Performed By: #### L [id number] #### [facility] ([facility]) [address] [place] [address] SQUAMOUS EPITHELIAL CELLS (#/HPF) IN URINE SEDIMENT Many Abnormal None Seen, Occasional [facility] Comment on above: Performed By: #### L [id number] #### [facility] ([facility]) [address] [place] [address] WBC (LEUKOCYTE) (#/HPF) IN URINE SEDIMENT 0-2 Abnormal None Seen [facility] Comment on above: Performed By: #### L [id number] #### [facility] ([facility]) [address] [place] [address] URINALYSIS WITH REFLEX CULTU REon 10-22-2023 BILIRUBIN, TOTAL PRESENCE IN URINE Negative Normal Negative [facility] Comment on above: Performed By: #### L [id number] ####[facility] ([facility] [place] [address] Clarity (U) Slightly Cloudy Abnormal Clear [facility] Comment on above: Performed By: #### L [id number] ####[facility] ([facility])[address] [place] [address] Color (U) Lynda Abnormal Yellow [facility] Comment on above: Performed By: #### L [id number] ####[facility] ([facility])[address] [place] [address] Glucose (U) [Mass/Vol] Negative Normal [facility] Comment on above: Performed By: #### L [id number] ####[facility] ([facility])[address] [place] [address] HEMOGLOBIN PRESENCE IN URINE Negative Normal Negative [facility] Comment on above: Performed By: #### L [id number] ####[facility] ([facility])[address] [place] [address] Ketones Ql (U) Trace Abnormal Negative [facility] Comment on above: Performed By: #### L [id number] ####[facility] ([facility])[address] [place] [address] LEUKOCYTE ESTERASE PRESENCE IN URINE BY TEST STRIP Trace Abnormal Negative [facility] Comment on above: Performed By: #### L [id number] ####[facility] ([facility])[address] [place] [address] NITRITE PRESENCE IN URINE Negative Normal Negative [facility] Comment on above: Performed By: #### L [id number] ####[facility] ([facility])[address] [place] [address] pH (U) 6.0 [pH] Normal 5.0-8.0 [facility] Comment on above: Performed By: #### L [id number] ####[facility] ([facility])[address] [place] [address] Protein (U) [Mass/Vol] 30 mg/dL Abnormal Negative [facility] Comment on above: Performed By: #### L [id number] ####[facility] ([facility])[address] [place] [address] Specific gravity (U) [Rel density] 1.021 High 1.015-1.020 [facility] Comment on above: Performed By: #### L [id number] ####[facility] ([facility])[address] [place] [address] UROBILINOGEN (EU/DL) IN URINE 2.0 EU/dL Abnormal Negative [facility] Comment on above: Performed By: #### L [id number] ####[facility] ([facility])[address] [place] [address] URINE CULTURE, ROUTINEon Bacteria identified Cx Nom (U) <10,000 CFU/ML No Significant Growth Normal [facility] Comment on above: Performed By: #### L [id number] #### [facility] ([facility]) [address] [place] [address] Telephoneon 10-15-2023 Telephone [phone] Apolonia Palma 1975 F Date Provider Department Center 10/15/2023 RE BRIGHT MP [facility] Family History Family history unknown: Yes [facility] 36on 10-11-2023 36 Sent to [facility] Abstracton 10-11-2023 Abstract [id number] Apolonia Palma 1975 F Date Provider Department Center 10/11/2023 LYSSA MATSON MP [facility] Family History Family history unknown: Yes Normal [facility] 36on 10-09-2023 36 Sent to [facility] Prep for Procedureon 024 Prep for Procedure [id number] Apolonia Palma L 1975 F Date Provider Department Center 10/09/2023 ADRIANNA LEE MP ORTHO MPORTHO Family History Family history unknown: Yes [facility] 36on 10-08-2023 36 Patient states her p cp sent the clearance she would like to be notified with updates regarding scheduling of surgery [facility] 36on 10-02-2023 36 Patient wants to kno w if her clearance came through yet? It would be from dr phelan. I dont see anything in her chart yet. Patient was advised. [facility] 36 Spoke with patient just waiting on pcp clearance. Called pcp office they stated that they will fax something over. [facility] 36on 09-28-2023 36 Patient states surge ry clearance is complete she wants a call back with next steps for surgery [facility] Telephoneon 09-28-2023 Telephone [phone] Apolonia Palma er L 1975 F Date Provider Department [place] 09/28/2023 836-BARRIE KHALIL MP ORTHO MPORTHO Family History Family history unknown: Yes [facility] POCT EKGon 09-27-2023 [facility] ECG 12 leadon 08-21-2023 TRACEMASTERVUE [facility] POCT urinalysis dipstick onl yon 08-21-2023 External Poct Urine Bilirubin Negative [facility] External Poct Urine Blood Negative [facility] External Poct Urine Glucose Negative [facility] External Poct Urine Hemoglobin Negative [facility] External Poct Urine Ketones Negative [facility] External Poct Urine Leukocyte Esterase Negative [facility] External Poct Urine Nitrite Negative [facility] External Poct Urine Ph 0.00 Pr [facility] External Poct Urine Protein Negative [facility] External Poct Urine Specific [place] 0.00 [facility] External Poct Urine Urobilinogen 0.00 [facility] Bacteria identified Cx Nom ( U)on 08-17-2023 Service comment (Unsp spec) [Interp] URINE RECEIVED WITHOUT PRESERVATIVE [facility] Service comment (Unsp spec) [Interp] 10-50,000 ORGANISMS/mL NORMAL UROGENITAL SOWMYA [facility] CBC AND AUTO DIFFon 08-17-19 24 Eosinophils (Bld) [#/Vol] 0.0 10*3/uL Normal 0.0-0.4 [facility] Comment on above: Performed By: #### C BCA, CMP #### [facility] ([id number]) [address] [address] Eosinophils/100 WBC (Bld) 1.0 % Normal [facility] Comment on above: Performed By: #### C MAHIN, CMP #### [facility] ([id number]) [address] [address] Erythrocyte distribution width (RBC) [Ratio] 14.8 % Normal 11.5-15.0 [facility] Comment on above: Performed By: #### C MAHIN, CMP #### [facility] ([id number]) [address] [address] Hematocrit (Bld) [Volume fraction] 37.2 % Normal 35-47 [facility] Comment on above: Performed By: #### C BCA, CMP #### [facility] ([id number]) [address] [address] [place] [address] Hemoglobin (Bld) [Mass/Vol] 12.5 g/dL Normal 11.7-15.5 [facility] Comment on above: Performed By: #### C BCA, CMP #### [facility] ([id number]) [address] [address] Lymphocytes (Bld) [#/Vol] 1.3 10*3/uL Normal 1.0-3.5 [facility] Comment on above: Performed By: #### C BCA, CMP #### [facility] ([id number]) [address] [place] [address] Lymphocytes/100 WBC (Bld) 42.0 % Normal [facility] Comment on above: Performed By: #### C MAHIN, CMP #### [facility] ([id number]) [address] [place] [address] MCH (RBC) [Entitic mass] 31.5 pg Normal 27-34 [facility] Comment on above: Performed By: #### C MAHIN, CMP #### [facility] ([id number]) [address], [address] [place] [address] MCHC (RBC) [Mass/Vol] 33.6 g/dL Normal 32-36 [facility] Comment on above: Performed By: #### C MAHIN, CMP #### [facility] ([id number]) [address], [address] [place] [address] MCV (RBC) [Entitic vol] 94 fL Normal 80-100 [facility] Comment on above: Performed By: #### C MAHIN, CMP #### [facility] ([id number]) [address], [address] [place] [address] Monocytes (Bld) [#/Vol] 0.2 10*3/uL Normal 0-0.9 [facility] Comment on above: Performed By: #### C MAHIN, CMP #### [facility] ([id number]) [address], [address] [place] [address] Monocytes/100 WBC (Bld) 7.0 % Normal [facility] Comment on above: Performed By: #### C MAHIN, CMP #### [facility] ([id number]) [address] [place] [address] Neutrophils (Bld) [#/Vol] 1.6 10*3/uL Normal 1.5-6.6 [facility] Comment on above: Performed By: #### C BCA, CMP #### [facility] ([id number]) [address], [address] [place] [address] OVALOCYTE 1+ Abnormal NONE [facility] Comment on above: Performed By: #### Ashkan STOCKTON, CMP #### [facility] ([id number]) [address] [place] [address] Platelet mean volume (Bld) [Entitic vol] 7.2 fL Normal 7-12 [facility] Comment on above: Performed By: #### C MAHIN, CMP #### [facility] ([id number]) [address] [place] [address] Platelets (Bld) [#/Vol] 363 10*3/uL Normal 150-450 [facility] Comment on above: Performed By: #### Ashkan STOCKTON, CMP #### [facility] ([id number]) [address], [address] [place] [address] RBC COUNT 3.96 X10E12/L Normal 3.80-5.20 [facility] Comment on above: Performed By: #### Ashkan STOCKTON, CMP #### [facility] ([id number]) [address], [address] [place] [address] SEG NEUTROPHIL 50.0 % Normal [facility] Comment on above: Performed By: #### Ashkan STOCKTON, CMP #### [facility] ([id number]) [address], [address] [place] [address] WBC (Bld) [#/Vol] 3.1 10*3/uL Low 4.0-11.0 [facility] Comment on above: Performed By: #### Ashkan STOCKTON, CMP #### [facility] ([id number]) [address], [address] [place] [address] CBC auto differentialon 06-0 -2023 Eosinophils (Bld) [#/Vol] 0.0 10*3/uL [facility] Eosinophils/100 WBC (Bld) 1.0 % [facility] Erythrocyte distribution width (RBC) [Ratio] 14.8 % 11.5 - 15.0 % [facility] Hematocrit (Bld) [Volume fraction] 37.2 % 35 - 47 % [facility] Hemoglobin (Bld) [Mass/Vol] 12.5 g/dL 11.7 - 15.5 g/dL [facility] Interpretation and review of laboratory results Abnormal [facility] Lymphocytes (Bld) [#/Vol] 1.3 10*3/uL [facility] Lymphocytes/100 WBC (Bld) 42.0 % [facility] MCH (RBC) [Entitic mass] 31.5 pg 27 - 34 pg [facility] MCHC (RBC) [Mass/Vol] 33.6 g/dL 32 - 3 6 g/dL [facility] MCV (RBC) [Entitic vol] 94 fL 80 - 100 fL [facility] Monocytes (Bld) [#/Vol] 0.2 10*3/uL [facility] Monocytes/100 WBC (Bld) 7.0 % [facility] Neutrophils (Bld) [#/Vol] 1.6 10*3/uL [facility] Ovalocytes LM Ql (Bld) 1+ Abnormal NONE^NONE Pr [facility] Platelet mean volume (Bld) [Entitic vol] 7.2 fL 7 - 12 fL [facility] Platelets (Bld) [#/Vol] 363 10*3/uL [facility] RBC (Bld) [#/Vol] 3.96 10*6/uL [facility] Segmented neutrophils/100 WBC (Bld) 50.0 % [facility] WBC corrected for nucl RBC Auto (Bld) [#/Vol] 3.1 Low [facility] COMPREHENSIVE METABOLIC PANE Caleb 08-17-2023 Albumin [Mass/Vol] 4.0 g/dL Normal 3.2-5.3 [facility] Comment on above: Performed By: #### C BCA, CMP #### [facility] ([id number]) [address] [facility] [place] [address] ALP [Catalytic activity/Vol] 130 U/L Normal 39-130 [facility] Comment on above: Performed By: #### C BCA, CMP #### [facility] ([id number]) [address], [address] [place] [address] ALT [Catalytic activity/Vol] 16 U/L Normal 0-31 [facility] Comment on above: Performed By: #### C BCA, CMP #### [facility] ([id number]) [address] [place] [address] Anion gap [Moles/Vol] 7 mmol/L Normal 5-15 [facility] Comment on above: Performed By: #### C BCA, CMP #### [facility] ([id number]) [address], [address] [place] [address] AST [Catalytic activity/Vol] 20 U/L Normal 0-41 [facility] Comment on above: Performed By: #### C BCA, CMP #### [facility] ([id number]) [address], [address] [place] [address] Bilirubin [Mass/Vol] 0.5 mg/dL Normal 0.3-1.2 [facility] Comment on above: Performed By: #### C BCA, CMP #### [facility] ([id number]) [address], [address] [place] [address] Calcium [Mass/Vol] 8.8 mg/dL Normal 8.5-10.5 [facility] Comment on above: Performed By: #### C BCA, CMP #### [facility] ([id number]) [address], [address] [place] [address] Chloride [Moles/Vol] 104 mmol/L Normal 98-109 [facility] Comment on above: Performed By: #### C BCA, CMP #### [facility] ([id number]) [address], [address] [place] [address] CO2 [Moles/Vol] 29 mmol/L Normal 22-32 [facility] Comment on above: Performed By: #### C BCA, CMP #### [facility] ([id number]) [address], [facility] [address] [place] [address] Creatinine [Mass/Vol] 0.68 mg/dL Normal 0.40-1.00 [facility] Comment on above: Result Comment: METH OD TRACEABLE TO IDMS STANDARD Performed By: #### C BCA, CMP #### [facility] ([id number]) [address], [facility] [address] [place] [address] eGFR (CKD-EPI) NON-RACE DEPENDENT >90 Normal >59 [facility] Comment on above: Result Comment: Reported eGFR is based on the CKD-EPI 2020 equation that does not use a race coefficient. Performed By: #### C BCA, CMP #### [facility] ([id number]) [address] [address] [place] [address] Glucose [Mass/Vol] 119 mg/dL High 65-99 [facility] Comment on above: Performed By: #### C BCA, CMP #### [facility] ([id number]) [address] [address] [place] [address] Potassium [Moles/Vol] 3.7 mmol/L Normal 3.5-5.0 [facility] Comment on above: Performed By: #### C BCA, CMP #### [facility] ([id number]) [address] [address] [place] [address] Protein [Mass/Vol] 7.5 g/dL Normal 6.0-8.0 [facility] Comment on above: Performed By: #### C BCA, CMP #### [facility] ([id number]) [address] [address] [place] [address] Sodium [Moles/Vol] 140 mmol/L Normal 134-146 [facility] Comment on above: Performed By: #### C BCA, CMP #### [facility] ([id number]) [address], [address] [place] [address] Urea nitrogen [Mass/Vol] 7 mg/dL Normal 5-23 [facility] Comment on above: Performed By: #### C BCA, CMP #### [facility] ([id number]) [address], [address] [place] [address] Comprehensive metabolic pane caleb 08-17-2023 Albumin [Mass/Vol] 4.0 g/dL 3.2 - 5.3 g/dL [facility] ALP [Catalytic activity/Vol] 130 U/L 39 - 130 U/L [facility] ALT No additional P-5'-P [Catalytic activity/Vol] 16 U/L 0 - 31 U/L [facility] Anion gap [Moles/Vol] 7 mmol/L 5 - 15 mmol/L [facility] AST [Catalytic activity/Vol] 20 U/L 0 - 41 U/L [facility] Bilirubin [Mass/Vol] 0.5 mg/dL 0.3 - 1 .2 mg/dL [facility] Calcium [Mass/Vol] 8.8 mg/dL 8.5 - 10. 5 mg/dL [facility] Chloride [Moles/Vol] 104 mmol/L 98 - 10 9 mmol/L [facility] CO2 [Moles/Vol] 29 mmol/L 22 - 32 mmol/L [facility] Creatinine [Mass/Vol] 0.68 mg/dL 0.40 - 1.00 mg/dL [facility] Comment on above: METHOD TRACEABLE TO IDOR STANDARD eGFR (CKD-EPI)non-race dependent - PINF [facility] Comment on above: Reported eGFR is based on the CKD-EPI 2020 equation that does not use a race coefficient. Glucose [Mass/Vol] 119 mg/dL High 65 - 99 mg/dL [facility] Interpretation and review of laboratory results Abnormal [facility] Potassium [Moles/Vol] 3.7 mmol/L 3.5 - 5.0 mmol/L [facility] Protein [Mass/Vol] 7.5 g/dL 6.0 - 8.0 g/dL [facility] Sodium [Moles/Vol] 140 mmol/L 134 - 146 mmol/L [facility] Urea nitrogen [Mass/Vol] 7 mg/dL 5 - 23 mg/dL [facility] Vaginitis Panel PCRon 2023 Bacterial vaginosis DNA panel JAYLEEN+probe (Vag fld) Not detected Not Detected^No t Detected [facility] Comment on above: Qualitative results are reported based on detection and quantitation of targeted organism markers which include: Lactobacillus spp. (L. crispatus and L. jensenii), Gardnerella vaginalis, Atopobium vaginae, Bacterial Vaginosis Associated Bacteria-2 (BVAB-2) and Megasphaera-1 C. glabrata DNA JAYLEEN+probe Ql (Vag fld) Detected Abnormal Not Detected^No t Detected [facility] Comment on above: Davida glabrata det ected Literature studies show between 8-20% Fluconazole resistance for Davida glabrata C. krusei DNA JAYLEEN+probe Ql (Vag fld) Not detected Not Detected^No t Detected [facility] Comment on above: No Davida krusei de tected Davida sp 6 panel JAYLEEN+probe (Vag fld) Not detected Not Detected^No t Detected [facility] Comment on above: Davida species not detected include: C. albicans, C. tropicalis, C. parapsilosis or C. dubliniensis Interpretation and review of laboratory results Abnormal [facility] T. vaginalis DNA JAYLEEN+probe Ql (Vag fld) Not detected Not Detected^No t Detected [facility] Comment on above: No Trichomonas vagin lyly detected NOTE BD MAX Vaginal Panel has not been evaluated for patients under 18 years old. Results for these patients should be reviewed and assessed in accordance with clinical presentation to determine patient diagnosis. [facility] POCT Hemoglobin A1con 2023 ADA Target < 8 Yes [facility] HbA1c (Bld) [Mass fraction] 6.0 g/dL 4 - 7 g/dL [facility] Interpretation and review of laboratory results Normal [facility] URINE CULTUREon 06-06-2024 Bacteria identified Cx Nom (U) SPECIMEN NOTES URINE RECEIVED WITHOUT PRESERVATIVE CULTURE RESULTS 10-50,000 ORGANISMS/mL NORMAL UROGENITAL SOWMYA Normal [facility] Comment on above: Performed By: #### 6 30-4 #### [facility] ([id number]) [address] [place] [address], [address] [place] [address] VAGINITIS PANEL PCRon 2023 VAGINITIS PANEL PCR [...] clinical presentation to determine patient diagnosis. Normal [facility] Comment on above: Performed By: #### V PPCR #### [facility] ([id number]) [address] [place] [address], [address] [place] [address] Follow-Upon 07-23-2023 Follow-Up [id number] Apolonia Palma 1975 F Date Provider Department Center 07/23/2023 LYSSA MATSON MP [facility]THO [facility] Family History Family history unknown: Yes Level of Service:85627 ID OFFICE/OUTPATIENT ESTABLISHED HIGH MDM 40 MIN (GC,57) Reason for Visit and Comments: Follow-up [571383] Pain [136] Follow-up [[id number]] Pain [136] Normal [facility] Urinalysis (clean catch)on 0 07-12-2023 Bilirubin Ql (U) Negative Negative^Ne gative [facility] Calcium oxalate crystals LM Ql (Urine sed) PRESENT Abnormal NONE^NONE [facility] Color (U) YELLOW YELLOW^YELL OW [facility] Epithelial cells Auto (Urine sed) [#/Area] [facility] Glucose (U) [Mass/Vol] Negative Negat justice^Ne gative mg/dL [facility] Hemoglobin Auto test strip Ql (U) Negative Negative[facility] Hyaline casts (Urine sed) [#/Area] 3 /[LPF] High [facility] Interpretation and review of laboratory results Abnormal [facility] Ketones (U) [Mass/Vol] Negative Negat justice^Ne gative mg/dL [facility] Leukocyte esterase Auto test strip Ql (U) Negative Negative^[facility] Mucus Ql (Urine sed) PRESENT Abnormal NONE^NONE [facility] Nitrite Auto test strip Ql (U) Negative Negative^[facility] pH (U) 6.5 [pH] 5.0 - 8.5 [facility] Protein (U) [Mass/Vol] Trace Abnormal Negat justice^Ne gative mg/dL [facility] RBC Auto (Urine sed) [#/Area] 3 [facility] Specific gravity Refractometry automated (U) [Rel density] 1.022 1.003 - 1.035 [facility] Turbidity Ql (U) HAZY Abnormal CLEAR^CLEAR [facility] Urobilinogen Qn (U) NINF [facility] WBC Auto (Urine sed) [#/Area] 4 [facility] 36on 07-04-2023 36 Appt moved to 07/22 Normal [facility] 36 Patient requesting call back to schedule sooner appointment for left knee Normal [facility] Bacteria identified Cx Nom ( U)on 04-07-2023 Service comment (Unsp spec) [Interp] 10-50,000 ORGANISMS/mL NORMAL UROGENITAL SOWMYA [facility] Urinalysis (clean catch)on 0 04-06-2023 Bilirubin Ql (U) Negative Negative^Ne gative [facility] Color (U) YELLOW YELLOW^YELL OW [facility] Epithelial cells Auto (Urine sed) [#/Area] 3 [facility] Glucose (U) [Mass/Vol] Negative Negat justice^Ne gative mg/dL [facility] Hemoglobin Auto test strip Ql (U) Negative Negative^Ne gative [facility] Hyaline casts (Urine sed) [#/Area] 5 /[LPF] High [facility] Interpretation and review of laboratory results Abnormal [facility] Ketones (U) [Mass/Vol] Negative Negat justice^Ne gative mg/dL [facility] Leukocyte esterase Auto test strip Ql (U) Negative Negative^Ne [facility] Mucus Ql (Urine sed) PRESENT Abnormal NONE^NONE [facility] Nitrite Auto test strip Ql (U) Negative Negative^Ne gative [facility] pH (U) 6.5 [pH] 5.0 - 8.5 [facility] Protein (U) [Mass/Vol] 30 mg/dL Abnormal Negat justice^Ne gative [facility] RBC Auto (Urine sed) [#/Area] 1 [facility] Specific gravity Refractometry automated (U) [Rel density] 1.020 1.003 - 1.035 [facility] Turbidity Ql (U) CLEAR CLEAR^CLEAR [facility] Urobilinogen Qn (U) NINF [facility] WBC Auto (Urine sed) [#/Area] 2 [facility] XR Chest PA and Lateralon History: Chest discomfort Exam/Technique: PA and lateral chest Comparison: 08/03/2020 Findings: There is no evidence of active pulmonary or pleural disease. Cardiac and mediastinal contours are within normal limits. IMPRESSION: No evidence of active pulmonary disease demonstrated. Finalized by Bin Johnston MD on 04/06/2023 3:00 PM [facility] Bin Johnston MD - 04/06/2023 History: Chest discomfort Exam/Technique: PA and lateral chest Comparison: 08/03/2020 Findings: There is no evidence of active pulmonary or pleural disease. Cardiac and mediastinal contours are within normal limits. IMPRESSION: No evidence of active pulmonary disease demonstrated. Finalized by Bin Johnston MD on 04/06/2023 3:00 PM [facility] (narrative) [facility] XR Chest PA and LateralOrder ed By: Bni Johnston on 04-06-2023 [facility] Work Phone: Hemoglobin A1con 03-02-2023 Average glucose Estimated from glycated hemoglobin (Bld) [Mass/Vol] 131 mg/dL [facility] HbA1c (Bld) [Mass fraction] 6.2 % High 4.4 - 5.6 % [facility] Comment on above: NOTE ADA Guidelines Result HgbA1c Normal : less than 5.7 % Prediabetes : 5.7 % to 6.4 % Diabetes : > 6.4 % Use with caution in patients with abnormal hemoglobin variants as the half-life of red blood cells and in vivo glycation rates are affected. Interpretation and review of laboratory results Abnormal [facility]Clini c Noteon 11-10-2022 Family [...] qWeek, # 4 EA, Refills(s) 0, Pharmacy: [facility] [id number], 172.3, cm, 11/10/22 12:48:00 EDT, Height/Length Dosing, 158.9, kg, 11/10/22 12:48:00 EDT, Weight Dosing 2. Pre-diabetes (R73.03: Prediabetes) see above Ordered: semaglutide, 0.25 mg, SubCutaneous, qWeek, # 4 EA, Refills(s) 0, Pharmacy: [facility] [id number], 172.3, cm, 11/10/22 12:48:00 EDT, Height/Length Dosing, [...] virus vaccine, inactivated 01/11/2022 Recorded SARS-CoV-2 (COVID-19) [id number] 01/11/2022 Recorded 2022-11-09: TPV40 influenza virus vaccine, inactivated 01/17/2021 Recorded SARS-CoV-2 (COVID-19) mRNA-1273 vaccine 07/13/2020 Recorded 2022-11-09: TPV40 SARS-CoV-2 (COVID-19) mRNA-1273 vaccine 06/15/2020 Recorded 2022-11-09: TPV40 influenza virus vaccine, inactivated 02/17/2020 Recorded diphtheria/pertussis, acel/tetanus adult 05/05/2019 Recorded diphtheria/pertussis, acel/tetanus adult 11/14/2018 Recorded hepatitis B adult vaccine 07/23/2018 Recorded hepatitis B adult vaccine 01/23/2018 Recorded hepatitis B adult vaccine 12/25/2017 Recorded Normal [facility] Comment on above: Result Comment: Elec tronically Signed By: Silvia Bailey\.br\Date and Time Signed: 11/10/22 13:28 EDT Quantiferon-TB Plus (Client Incubated)on 10-26-2022 Gamma interferon background IA Qn (Bld) 0.25 International_Unit/mL Invalid Interpretation Code [facility] Comment on above: Performed By: #### 3 [id number], [id number] #### [facility] [address] [id number] M. tuberculosis stim IFN-g by CD4+ CD8+ T-cells Qn (Bld) 0.16 International_Unit/mL Invalid Interpretation Code [facility] Comment on above: Performed By: #### 3 [id number], [id number], [id number] #### [facility] [address] [id number] M. tuberculosis stim IFN-g by CD4+ T-cells Qn (Bld) 0.15 International_Unit/mL Invalid Interpretation Code [facility] Comment on above: Performed By: #### 3 [id number], [id number], [id number] #### [facility] [address] [place] [address] M. tuberculosis stim IFN-g Ql (Bld) [Interp] Negative Invalid Interpretation Code Negative [facility] Comment on above: Result Comment: No r [...] interferon gamma. Chemiluminescence immunoassay methodology Performed at: [facility] [id number] PhD Jimbo Flores Performed By: #### 3 [id number], [id number], [id number] #### [facility] [address] [id number] Mitogen stimulated gamma interferon Qn (Bld) 1.13 International_Unit/mL Invalid Interpretation Code [facility] Comment on above: Performed By: #### 3 [id number], [id number], [id number], [id number] #### [facility] [address] [place] [address] Service comment (Unsp spec) [Interp] Comment Invalid Interpretation Code [facility] Comment on above: Result Comment: Kelvin tiFERON-TB [...] for the test. Performed By: #### 3 [id number], [id number], [id number], [id number] #### [facility] [address] [place] [address] Hep Bs Abon 10-25-2022 HBV surface Ab Ql (S) Reactive Invalid Interpretation Code [facility] Comment on above: Result Comment: Non Reactive: Inconsistent with immunity, less than 10 mIU/mL Reactive: Consistent with immunity, greater than 9.9 mIU/mL Performed at: [address] [id number] PhD Jimbo Flores Performed By: #### 3 [id number], [id number], [id number], [id number] #### [facility] [address] [place] [address] Measles/Mumps/Rubella Immuni tyon 10-25-2022 MeV IgG IA Qn (S) {index_val} Invalid Interpretation Code Immune >16.4 [facility] Comment on above: Result Comment: Nega tive <13.5 Equivocal 13.5 - 16.4 Positive >16.4 Presence of antibodies to Rubeola is presumptive evidence of immunity except when acute infection is suspected. Performed By: #### 3 [id number], [id number], [id number], [id number] #### [facility] [address] [place] [address] MuV IgG IA Qn (S) 92.8 A unit/mL Invalid Interpretation Code Immune >10.9 [facility] Comment on above: Result Comment: Nega tive <9.0 Equivocal 9.0 - 10.9 Positive >10.9 A positive result generally indicates past exposure to Mumps virus or previous vaccination. Performed at: [facility] [address], [place] [id number] PhD Jimbo Flores Performed By: #### 3 [id number], [id number], [id number], [id number] #### [facility] [address] [place] [address] Rubella virus IgG Qn (S) 19.50 [IU]/mL Invalid Interpretation Code Immune >0.99 [facility] Comment on above: Result Comment: Non- immune <0.90 Equivocal 0.90 - 0.99 Immune >0.99 Performed By: #### 3 [id number], [id number], [id number], [id number] #### [facility] [address] [place] [address] Varic IgGon 10-25-2022 VZV IgG IA Qn (S) >4000 Invalid Interpretation Code Immune >165 [facility] Comment on above: Result Comment: Nega tive <135 Equivocal 135 - 165 Positive >165 A positive result generally indicates exposure to the pathogen or administration of specific immunoglobulins, but it is not indication of active infection or stage of disease. Performed at: [facility] [address], [place] [id number] PhD Jimbo Flores Performed By: #### 3 [id number], [id number], [id number], [id number] #### [facility] [address] [place] [address] COVID + FLU Quick Testingon 02-07-2022 SARS-CoV-2 (COVID-19) RNA JAYLEEN+probe Ql (Unsp spec) Negative [employer] Other COVID + FLU Quick Testing Negative [employer] Other KNEE RIGHT 3 VWSon 2 KNEE RIGHT 3 S [facility] Department of Radiology [address] [place] [address] ======== Patient Name: NAVDEEP PALMA : 1975 Sex: F Age: Race: Black Pt. 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 COMPARISON: 02/18/2021 FINDINGS: Right total knee replacement redemonstrated with no evidence of acute complications of hardware or new abnormalities of surrounding bone displayed. IMPRESSION: Unchanged from early February Electronically signed: Bin Johnston. Transcribed by: [email or web address], User Resident: Electronically Signed by: BIN JOHNSTON @ 04/10/2021 07:02 PM Normal [facility] Comment on above: Order Comment: Views (X-RAY, KNEE): AP, Lateral, [place] , Weight Bearing?: Y KNEE RIGHT 1 OR 2 VWSon 02-09 KNEE RIGHT 1 OR 2 S [facility] Department of Radiology [address] [place] [address] ======== Patient Name: NAVDEEP PALMA : 1975 Sex: F Age: Race: Black Pt. Location: Patient Status: D Ordered Date: 02/17/2021 4:30:00 PM Completed Date: 02/18/2021 01:57 PM Requesting Provider: LYSSA PARK Attending Provider: LYSSA PARK Report Copy To: JORDYN BARRERA Signs & Symptoms: Z48.89 Encounter for other specified surgical aftercare I10 History: Mayuri Comments: Evaluate Exam: KNEE RIGHT 1 OR 2 [facility] ======== KNEE RIGHT 1 OR 2 S 02/18/2021 1:57 PM SIGNS AND SYMPTOMS: Z48.89 [...] replacement Electronically signed: Endy Andujar. Transcribed by: [email or web address], User Resident: ENDY ANDUJAR Electronically Signed by: ENDY ANDUJAR @ 02/20/2021 02:18 PM I personally read this/these film(s) with this resident Normal [facility] Comment on above: Order Comment: Evalu ate BASIC METABOLIC PANELon 12-0 Calcium [Mass/Vol] 8.3 mg/dL Low 8.6-10.3 [facility] Comment on above: Order Comment: No: D o not add to previous draw Performed By: #### 3 1595 #### [facility] [address] [place] [address], [place] Chloride [Moles/Vol] 104 mmol/L Normal 98-107 [facility] Comment on above: Order Comment: No: D o not add to previous draw Performed By: #### 3 1595 #### [facility] [address] [place] [address], [place] CO2 [Moles/Vol] 28 mmol/L Normal 21-31 [facility] Comment on above: Order Comment: No: D o not add to previous draw Performed By: #### 3 1595 #### [facility] [address] [place] [address], [place] Creatinine [Mass/Vol] 0.64 mg/dL Normal 0.60-1.20 [facility] Comment on above: Order Comment: No: D o not add to previous draw Performed By: #### 3 1595 #### [facility] [address] [place] [address], [place] GFR/1.73 sq M.predicted among blacks MDRD (S/P/Bld) [Vol rate/Area] mL/min/{1.73_m2} Normal >60 [facility] Comment on above: Order Comment: No: D o not add to previous draw Performed By: #### 3 1595 #### [facility] [address] [place] [address], [place] GFR/1.73 sq M.predicted among non-blacks MDRD (S/P/Bld) [Vol rate/Area] mL/min/{1.73_m2} Normal >60 [facility] Comment on above: Order Comment: No: D o not add to previous draw Performed By: #### 3 1595 #### [facility] [address] [place] [address], [place] Glucose [Mass/Vol] 133 mg/dL High 70-100 The [facility] Comment on above: Order Comment: No: D o not add to previous draw Performed By: #### 3 1595 #### [facility] [address] [place] [address], [facility] Potassium [Moles/Vol] 4.3 mmol/L Normal 3.5-5.1 [facility] Comment on above: Order Comment: No: D o not add to previous draw Performed By: #### 3 1595 #### [facility] [address] [place] [address], [place] Sodium [Moles/Vol] 138 mmol/L Normal 136-145 [facility] Comment on above: Order Comment: No: D o not add to previous draw Performed By: #### 3 1595 #### [facility] [address] [place] [address], [facility] Urea nitrogen [Mass/Vol] 7 mg/dL Normal 7-25 [facility] Comment on above: Order Comment: No: D o not add to previous draw Performed By: #### 3 1595 #### [facility] [address] [place] [address], [place] CBC COMPLETE BLOOD COUNTon 1 04-13-2020 Erythrocyte distribution width (RBC) [Ratio] 13.9 % Normal 11.5-15.0 [facility] Comment on above: Order Comment: No: D o not add to previous draw Performed By: #### 5 0608 #### [facility] [address] [place] [address], [place] Hematocrit (Bld) [Volume fraction] 32.2 % Low 36.0-45.0 [facility] Comment on above: Order Comment: No: D o not add to previous draw Performed By: #### 5 0608 #### [facility] [address] [place] [address], [facility] Hemoglobin (Bld) [Mass/Vol] 10.7 g/dL Low 12.0-15.0 [facility] Comment on above: Order Comment: No: D o not add to previous draw Performed By: #### 5 0608 #### [facility] [address] [place] [address], [facility] MCH (RBC) [Entitic mass] 30.3 pg Normal 27.0-33.0 [facility] Comment on above: Order Comment: No: D o not add to previous draw Performed By: #### 5 0608 #### [facility] [address] [place] [address], [facility] MCHC (RBC) [Mass/Vol] 33.2 g/dL Normal 32.0-35.0 [facility] Comment on above: Order Comment: No: D o not add to previous draw Performed By: #### 5 0608 #### [facility] [address] [facility] [address], [facility] MCV (RBC) [Entitic vol] 91.2 fL Normal 82.0-98.0 [facility] Comment on above: Order Comment: No: D o not add to previous draw Performed By: #### 5 0608 #### [facility] [address] [place] [address], [facility] Nucleated RBC/100 WBC (Bld) [Ratio] 0 % Normal 0-0 [facility] Comment on above: Order Comment: No: D o not add to previous draw Performed By: #### 5 0608 #### [facility] [address] [place] [id number], [facility] PLAT CNT 204 10*3/uL Normal 150-400 [facility] Comment on above: Order Comment: No: D o not add to previous draw Performed By: #### 5 0608 #### [facility] [address] [place] [address], [facility] RBC (Bld) [#/Vol] 3.53 10*6/uL Low 3.80-5.00 [facility] Comment on above: Order Comment: No: D o not add to previous draw Performed By: #### 5 0608 #### [facility] [address] [place] [id number], [facility] WBC (Bld) [#/Vol] 6.84 10*3/uL Normal 4.00-10.60 [facility] Comment on above: Order Comment: No: D o not add to previous draw Performed By: #### 5 0608 #### [facility] [address] [facility] [address] Operative Reporton 1 Operative Report MR#: [id number] 2 [facility] Pt. Name: Navdeep Palma Room #: [id number] Discharge Date: Birthdate: 1975 OPERATIVE REPORT DATE [...] to morbid obesity and cemented implants using Liliane Triathlon posterior stabilized implant. 2. Superficial and [...] marked. The patient was taken to the [facility] OR and was placed in [...] iden (more content not included)... Normal [facility] POC GLUCOSE LABon 02-09-2021 Glucose [Mass/Vol] 96 mg/dL Normal 70-100 [facility] Comment on above: Performed By: #### 8 5499 #### [address] PORTABLE KNEE RIGHT 2 [facility] 02-09-2021 PORTABLE KNEE RIGHT 2 [facility] Department of Radiology [address] [place] [address] ======== Patient Name: NAVDEEP PALMA : 1975 Sex: F Age: Race: Black Pt. Location: OUTP Patient Status: O Ordered Date: 02/09/2021 11:25:00 AM Completed Date: 02/09/2021 11:51 AM Requesting Provider: CAMILA BARRIOS Attending Provider: LYSSA PARK Report Copy To: Signs & Symptoms: Pain History: Comments: Hardware Evaluation, post op eval, pt in pacu Exam: PORTABLE KNEE RIGHT 2 VWS ======== PORTABLE KNEE RIGHT 2 S 02/09/2021 11:51 AM SIGNS AND SYMPTOMS: Pain, [...] Electronically signed: Jozef Manriquez M.D.. Transcribed by: [email or web address], User Resident: Electronically Signed by: JOZEF MANRIQUEZ @ 02/09/2021 12:05 PM Normal [facility] Comment on above: Order Comment: Hardw are Evaluation, post op eval, pt in pacu *MRSA/MSSA DNA NASALon 01-18 *MRSA/MSSA DNA NASAL Clinical Report: (D ) Specimen: NASAL SWAB Collected: 01/18/2021 14:00 Status: Final Last Updated: 01/18/2021 17:12 MSSA DNA (Final) Methicillin Susceptible Staphylococcus aureus DNA Detected MRSA DNA (Final) Negative Normal [facility] Comment on above: Performed By: #### 3 1595 #### [facility] [address] *URINE CULTUREon 01-18-2021 *URINE CULTURE Clinical Report: (D) Specimen: URINE Collected: 01/18/2021 14:00 Status: Final Last Updated: 01/20/2021 09:37 ISO (Final) Lactobacillus gasseri >100,000 Cfu/Ml Normal [facility] Comment on above: Performed By: #### 3 [id number] #### [facility] [address] [facility]. [address] APTTon 01-18-2021 aPTT Coag (Bld) [Time] 29.5 s Normal 25.0-35.0 Th e [facility] Comment on above: Result Comment: ALL RESULTS [...] PURPOSE. Performed By: #### 3 1595 #### [facility] [address] BASIC METABOLIC PANELon 11-0 Calcium [Mass/Vol] 8.9 mg/dL Normal 8.6-10.3 [facility] Comment on above: Performed By: #### 0 0071 #### [facility] [address] [facility] [place] [address], [facility] Chloride [Moles/Vol] 105 mmol/L Normal 98-107 [facility] Comment on above: Performed By: #### 0 0071 #### [facility] [address] [facility] [place] [address], [facility] CO2 [Moles/Vol] 27 mmol/L Normal 21-31 [place] Comment on above: Performed By: #### 0 0071 #### [facility] [address] [facility] [place] [address], [facility] Creatinine [Mass/Vol] 0.67 mg/dL Normal 0.60-1.20 [facility] Comment on above: Performed By: #### 0 0071 #### [facility] [address] [place] [address], [facility] GFR/1.73 sq M.predicted among blacks MDRD (S/P/Bld) [Vol rate/Area] mL/min/{1.73_m2} Normal >60 [facility] Comment on above: Performed By: #### 0 0071 #### [facility] [address] [place] [address], [facility] GFR/1.73 sq M.predicted among non-blacks MDRD (S/P/Bld) [Vol rate/Area] mL/min/{1.73_m2} Normal >60 [facility] Comment on above: Performed By: #### 0 0071 #### [facility] [address] [facility] [place] [address], [facility] Glucose [Mass/Vol] 90 mg/dL Normal 70-100 The [facility] Comment on above: Performed By: #### 0 0071 #### [facility] [address] [facility] [place] [address], [facility] Potassium [Moles/Vol] 3.9 mmol/L Normal 3.5-5.1 [facility] Comment on above: Performed By: #### 0 0071 #### [facility] [address] [place] [address], [facility] Sodium [Moles/Vol] 140 mmol/L Normal 136-145 The [facility] Comment on above: Performed By: #### 0 0071 #### [facility] [address] [facility] [place] [address], [facility] Urea nitrogen [Mass/Vol] 7 mg/dL Normal 7-25 [facility] Comment on above: Performed By: #### 0 0071 #### [facility] [address] [place] [address], [facility] CBC W/DIFFon 01-18-2021 ABS IMM GRANS 0.0 10*3/uL Normal 0.0-0.2 The [facility] Comment on above: Performed By: #### 3 1595 #### [facility] [address] [place] [address], [facility] ABS NEUTROPHILS 1.2 10*3/uL Low 1.6-7.6 The [facility] Comment on above: Performed By: #### 3 1595 #### [facility] [address] [place] [address], [facility] Basophils (Bld) [#/Vol] 0.0 10*3/uL Normal 0.0-0.2 [facility] Comment on above: Performed By: #### 3 1595 #### [facility] [address] [place] [address], [facility] Basophils/100 WBC (Bld) 0.7 % Normal 0.0-1.0 [facility] Comment on above: Performed By: #### 3 1595 #### [facility] [address] [facility] [place] [address], [facility] Eosinophils (Bld) [#/Vol] 0.0 10*3/uL Normal 0.0-0.5 [facility] Comment on above: Performed By: #### 3 1595 #### [facility] [address] [facility] [place] [address], [facility] Eosinophils/100 WBC (Bld) 0.7 % Normal 0.0-6.0 [facility] Comment on above: Performed By: #### 3 1595 #### [facility] [address] [place] [address], [facility] Erythrocyte distribution width (RBC) [Ratio] 13.9 % Normal 11.5-15.0 [facility] Comment on above: Performed By: #### 3 1595 #### [facility] [address] [place] [address], [facility] Hematocrit (Bld) [Volume fraction] 40.3 % Normal 36.0-45.0 [facility] Comment on above: Performed By: #### 3 1595 #### [facility] [address] Hemoglobin (Bld) [Mass/Vol] 12.6 g/dL Normal 12.0-15.0 [facility] Comment on above: Performed By: #### 3 1595 #### [facility] [address] [place] [id number], [facility] IMMATURE GRANS 0.4 % Normal 0.0-1.0 [facility] [place] [facility] Comment on above: Performed By: #### 3 1595 #### [facility] [address] [facility] [place] [address], [facility] Lymphocytes (Bld) [#/Vol] 1.2 10*3/uL Normal 1.2-4.0 [facility] Comment on above: Performed By: #### 3 1595 #### [facility] [address] [facility] [place] [address], [facility] Lymphocytes/100 WBC (Bld) 45.0 % Normal 20.0-45.0 [facility] Comment on above: Performed By: #### 3 1595 #### [facility] [address] [place] [address], [facility] MCH (RBC) [Entitic mass] 29.7 pg Normal 27.0-33.0 [facility] Comment on above: Performed By: #### 3 1595 #### [facility] [address] [facility] [place] [id number], [facility] MCHC (RBC) [Mass/Vol] 31.3 g/dL Low 32.0-35.0 [facility] Comment on above: Performed By: #### 3 1595 #### [facility] [address] [facility] [place] [id number], [facility] MCV (RBC) [Entitic vol] 95.0 fL Normal 82.0-98.0 [facility] Comment on above: Performed By: #### 3 1595 #### [facility] [address] [place] [id number], [facility] Monocytes (Bld) [#/Vol] 0.3 10*3/uL Normal 0.1-1.0 [facility] Comment on above: Performed By: #### 3 1595 #### [facility] [address] [place] [address], [place] MONOS 9.3 % Normal 5.0-12.0 [facility] Comment on above: Performed By: #### 3 1595 #### [facility] [address] [place] [address], [facility] Neutrophils/100 WBC (Bld) 43.9 % Normal 40.0-72.0 [facility] Comment on above: Performed By: #### 3 1595 #### [facility] [address] [place] [address], [facility] Nucleated RBC/100 WBC (Bld) [Ratio] 0 % Normal 0-0 [facility] Comment on above: Performed By: #### 3 1595 #### [facility] [address] [place] [address], [place] PLAT CNT 269 10*3/uL Normal 150-400 [facility] Comment on above: Performed By: #### 3 1595 #### [facility] [address] [place] [address], [facility] RBC (Bld) [#/Vol] 4.24 10*6/uL Normal 3.80-5.00 [facility] Comment on above: Performed By: #### 3 1595 #### [facility] [address] [place] [address], [place] WBC (Bld) [#/Vol] 2.69 10*3/uL Low 4.00-10.60 [facility] Comment on above: Performed By: #### 3 1595 #### [facility] [address] [place] [address], [facility] HEMOGLOBIN A1Con 01-18-2021 Glucose [Moles/Vol] 126 mmol/L Normal [facility] Comment on above: Performed By: #### 3 1791 #### [facility] [address] [facility]. [address] HbA1c (Bld) [Mass fraction] 6.0 % Normal 4.0-6.0 [facility] Comment on above: Performed By: #### 3 1791 #### [facility] [address] [facility] [address] PROTHROMBIN TIMEon INR Coag (PPP) [Relative time] 1.04 {INR} Normal 0.91-1.16 [facility] Comment on above: Result Comment: ACCC P [...] 1995;[id number]. Performed By: #### 3 1595 #### [facility] [address] [facility]. [address] PT Coag (PPP) [Time] 13.6 s Normal 12.3-14.8 [facility] Comment on above: Result Comment: ALL RESULTS MUST BE INTERPRETED WITH RESPECT TO BLOOD DRAWING ARTIFACT OR DILUTION ERROR OF ANTICOAGULANT AT THE TIME OF SAMPLING. Performed By: #### 3 1595 #### [facility] [address] [place] [address], [facility] TYPE AND SCREENon 01-18-2021 ABO INTERPRETATION O Normal The [facility] Comment on above: Performed By: #### 3 1595 #### [facility] [address] [place] [address], [place] RH INTERPRETATION Positive Normal The [facility] Comment on above: Performed By: #### 3 1595 #### [facility] [address] [place] [address], [facility] URINALYSIS REFLEXon 01-19-20 21 Appearance (U) SL CLOUDY Abnormal CLEAR The [facility] Comment on above: Performed By: #### 3 0965 #### [facility] [address] [place] [address], [place] Bilirubin Ql (U) Negative Normal NEGATIVE The [facility] Comment on above: Performed By: #### 3 0965 #### [facility] [address] [place] [address], [place] Color (U) YELLOW Normal YELLOW The [facility] Comment on above: Performed By: #### 3 0965 #### [facility] [address] [place] [address], [place] EPIS MOD Abnormal FEW,OCC,NON E SEEN The [facility] Comment on above: Performed By: #### 3 0965 #### [facility] [address] [place] [address], [place] Glucose Ql (U) Negative Normal NEGATIVE The [facility] Comment on above: Performed By: #### 3 0965 #### [facility] [address] [place] [address], [place] Hemoglobin Ql (U) Negative Normal NEGATIVE The [facility] Comment on above: Performed By: #### 3 0965 #### [facility] [address] [place] [address], [facility] Hyaline casts LM Ql (Urine sed) 3 /LPF Abnormal NONE SEEN The [facility] Comment on above: Performed By: #### 3 0965 #### [facility] [address] [place] [address], [facility] KETONE Negative Normal NEGATIVE The [facility] Comment on above: Performed By: #### 3 0965 #### [facility] [address] LEUK SOPHIA TRACE Abnormal NEGATIVE [facility] Comment on above: Performed By: #### 3 0965 #### [facility] [address] MUCUS THREADS FEW Abnormal NONE SEEN The [facility] Comment on above: Performed By: #### 3 0965 #### [facility] 3000 [place], [place] [address] [place] [address] Nitrite Ql (U) Negative Normal NEGATIVE The [facility] Comment on above: Performed By: #### 3 0965 #### [facility] [address] pH (U) 7.0 [pH] Normal 5.0-8.0 [facility] Comment on above: Performed By: #### 3 0965 #### [facility] [address] Protein Ql (U) Negative Normal NEGATIVE [facility] Comment on above: Performed By: #### 3 0965 #### [facility] [address] RBC 0-2 Abnormal NONE SEEN The [facility] Comment on above: Performed By: #### 3 0965 #### [facility] [address] SPEC GRAV 1.023 High 1.015-1.020 [facility] Comment on above: Performed By: #### 3 0965 #### [facility] [address] [facility]. [address] WBC UA 0-2 Abnormal NONE SEEN The [facility] Comment on above: Performed By: #### 3 0965 #### [facility] [address] [facility]. [place], [place] [id number] [place] [address] MRI KNEE WO CONTRAST RIGHTon 09-08-2020 MRI KNEE WO CONTRAST RIGHT [facility] Department of Radiology [address] [place] [id number] ======== Patient Name: NAVDEEP PALMA : 1975 Sex: F Age: Race: Black Pt. Location: Patient Status: D Ordered Date: 08/16/2020 4:30:00 PM Completed Date: 09/08/2020 01:44 PM Requesting Provider: KINGS MIRANDA Attending Provider: KINGS MIRANDA Report Copy To: Signs & Symptoms: M17.11 Unilateral primary osteoarthritis, right knee I10 History: [place], PHONE:[phone],*NE EDS ORTHO F/U APPT. NO METAL [facility]HC no pc required PER [facility] REF# [id number] 08/20/20 [id number] *KW Comments: Evaluate Exam: MRI KNEE WO [...] ACL. Electronically signed: Bin Frazier. Transcribed by: [email or web address], User Resident: Electronically Signed by: BIN FRAZIER @ 09/09/2020 04:53 PM Normal The [facility] Comment on above: Order Comment: Evalu ate KNEE LEFT 4VWSon 08-16-2020 KNEE LEFT 4VWS [facility] Department of Radiology [address] [place] [address] ======== Patient Name: NAVDEEP PALMA : 1975 Sex: F Age: Race: Black Pt. Location: Patient Status: O Ordered Date: 08/16/2020 9:55:00 AM Completed Date: 08/16/2020 10:19 AM Requesting Provider: KINGS MIRANDA Attending Provider: KINGS MIRANDA Report Copy To: Signs & Symptoms: M25.569 Pain in unspecified knee I10 History: [place] Comments: Evaluate Exam: KNEE LEFT 4VWS ======== [...] angulation Electronically signed: Gualberto Worthington. Transcribed by: [email or web address], User Resident: Electronically Signed by: GUALBERTO WORTHINGTON @ 08/16/2020 06:23 PM [place] [facility] Comment on above: Order Comment: Evalu ate KNEE RIGHT 4 [facility] KNEE RIGHT 4 [facility] Department of Radiology [address] [place] [id number] ======== Patient Name: NAVDEEP PALMA : 1975 Sex: F Age: Race: Black Pt. Location: Patient Status: O Ordered Date: 08/16/2020 9:55:00 AM Completed Date: 08/16/2020 10:19 AM Requesting Provider: KINGS MIRANDA Attending Provider: KINGS MIRANDA Report Copy To: Signs & Symptoms: M25.569 Pain in unspecified knee I10 History: [place] Comments: Evaluate Exam: KNEE RIGHT 4 [facility] ======== KNEE RIGHT 4 [facility] 08/16/2020 10:19 AM CLINICAL INDICATIONS: [...] angulation Electronically signed: Gualberto Worthington. Transcribed by: [email or web address], User Resident: Electronically Signed by: GUALBERTO WORTHINGTON @ 08/16/2020 06:23 PM Normal [facility] Comment on above: Order Comment: Evalu ate XR WRIST LT MIN 3 Von 2017 XR WRIST LT MIN 3 [address] [place] [address] Patient: NAVDEEP PALMA Exam Date: 03/04/2018 : 1975 Gender:F Ordering : DR SALLY WELCH . Admission #: [id number] Family : Order #: [id number] CLICK HERE TO VIEW EXAM RADIOLOGY REPORT [...] Wilder M.D. on 03/04/2018 at 23:45 Normal [facility] Vital Signs Date Time Vital Sign Value Performing Clinician Faci lity 07-18-2024 15:15-0400 Body height 165.1 cm Bong Zhane PROFESSOR OF [employer] Work Phone: [facility] [employer] [facility] 07-18-2024 15:15-0400 Body mass index (BMI) [Ratio] 54.58 kg/m2 [place]cl [place] PROFESSOR OF [employer] Work Phone: [facility] [employer] [facility] 07-18-2024 15:15-0400 Body weight 148.78 kg Bong [place] PROFESSOR OF [employer] Work Phone: [facility] [employer] [facility] 07-18-2024 15:15-0400 Diastolic blood pressure 74 mm[Hg] Bongbridget HarrisZhane PROFESSOR OF [employer] Work Phone: [facility] [facility] 07-18-2024 15:15-0400 Heart rate 95 /min Bongbridget Leachight PROFESSOR OF [employer] Work Phone: [facility] [place] 07-18-2024 15:15-0400 SaO2% (BldA) [Mass fraction] 98 % Bong Phelan PROFESSOR OF [employer] Work Phone: [facility] 07-18-2024 15:15-0400 Systolic blood pressure 126 mm[Hg] Bong Phelan PROFESSOR OF [employer] Work Phone: [facility] [facility] 02-22-2024 14:04-0500 Body height 167.6 cm Bong Phelan PROFESSOR OF [employer] Work Phone: [facility] [facility] 02-22-2024 14:04-0500 Body mass index (BMI) [Ratio] 52.03 kg/m2 Bong Leachight PROFESSOR OF [employer] Work Phone: [facility] 02-22-2024 14:04-0500 Body weight 146.15 kg Bong Leachight PROFESSOR OF [employer] Work Phone: [facility] 02-22-2024 14:04-0500 Diastolic blood pressure 76 mm[Hg] Bong Leachight PROFESSOR OF [employer] Work Phone: [facility] 02-22-2024 14:04-0500 Heart rate 76 /min Bong Phelan PROFESSOR OF [employer] Work Phone: [facility] 02-22-2024 14:04-0500 SaO2% (BldA) [Mass fraction] 98 % Bong Leachight PROFESSOR OF [employer] Work Phone: [facility] 02-22-2024 14:04-0500 Systolic blood pressure 124 mm[Hg] Bong Phelan PROFESSOR OF [employer] Work Phone: [facility] 02-11-2024 14:55-0500 Body mass index (BMI) [Ratio] 49.93 kg/m2 Raman Miguelbonnie SILVA Work Phone: [facility] 02-11-2024 14:55-0500 Body weight 144.61 kg Raman Miguel DO Work Phone: [facility] 02-11-2024 14:55-0500 Diastolic blood pressure 70 mm[Hg] Raman Miguel DO Work Phone: [facility] 02-11-2024 14:55-0500 Systolic blood pressure 120 mm[Hg] Raman Miguel DO Work Phone: [facility] 02-04-2024 14:19-0500 Body mass index (BMI) [Ratio] 50.09 kg/m2 Ainsley ELDRIDGE Work Phone: [facility] 02-04-2024 14:19-0500 Body weight 145.06 kg Ainsley ELDRIDGE Work Phone: [facility] 02-04-2024 14:19-0500 Diastolic blood pressure 68 mm[Hg] Ainsley ELDRIDGE Work Phone: [facility] 02-04-2024 14:19-0500 Systolic blood pressure 120 mm[Hg] Ainsley ELDRIDGE Work Phone: [facility] 01-29-2024 15:26-0500 Body height 167.6 cm Jordyn Moriera MD Work Phone: [facility] 01-29-2024 15:26-0500 Body mass index (BMI) [Ratio] 51.81 kg/m2 Jordyn Moreira MD Work Phone: [facility] 01-29-2024 15:26-0500 Body weight 145.6 kg Jordyn Moreira MD Work Phone: [facility] 01-29-2024 15:26-0500 Diastolic blood pressure 86 mm[Hg] Jordyn Moreira MD Work Phone: [facility] 01-29-2024 15:26-0500 Heart rate 94 /min Jordyn Moreira MD Work Phone: [facility] 01-29-2024 15:26-0500 SaO2% (BldA) [Mass fraction] 96 % Jordyn Moreira MD Work Phone: [facility] 01-29-2024 15:26-0500 Systolic blood pressure 114 mm[Hg] Jordyn Moreira MD Work Phone: [facility] 01-10-2024 10:00-0400 Body height 167.6 cm Neena Del Castillo DO Work Phone: [facility] 01-10-2024 10:00-0400 Body mass index (BMI) [Ratio] 51.99 kg/m2 Neena Del Castillo DO Work Phone: [facility] 01-10-2024 10:00-0400 Body weight 146.1 kg Neena Del Castillo DO Work Phone: [facility] 01-10-2024 10:00-0400 Diastolic blood pressure 88 mm[Hg] Neena Del Castillo DO Work Phone: [facility] 01-10-2024 10:00-0400 Heart rate 85 /min Neena Del Castillo DO Work Phone: [facility] 01-10-2024 10:00-0400 SaO2% (BldA) [Mass fraction] 94 % Neena Del Castillo DO Work Phone: [facility] 01-10-2024 10:00-0400 Systolic blood pressure 149 mm[Hg] Neena Del Castillo DO Work Phone: [facility] 01-07-2024 09:33-0400 Body mass index (BMI) [Ratio] 53.75 kg/m2 Bobbi Ortiz MD Work Phone: [facility] 01-07-2024 09:33-0400 Body weight 146.51 kg Bobbi Ortiz MD Work Phone: [facility] 01-07-2024 09:33-0400 Diastolic blood pressure 98 mm[Hg] Bobbi Ortiz MD Work Phone: [facility] 01-07-2024 09:33-0400 Heart rate 106 /min Bobbi Ortiz MD Work Phone: [facility] 01-07-2024 09:33-0400 Systolic blood pressure 153 mm[Hg] Bobbi Ortiz MD Work Phone: [facility] 12-19-2023 10:26-0400 Body height 165.1 cm Bongbridget Leachight PROFESSOR OF [employer] Work Phone: [facility] 12-19-2023 10:26-0400 Body mass index (BMI) [Ratio] 54.02 kg/m2 Bong Zhane PROFESSOR OF [employer] Work Phone: [facility] 12-19-2023 10:26-0400 Body weight 147.24 kg Bong Zhane PROFESSOR OF [employer] Work Phone: [facility] 12-19-2023 10:26-0400 Diastolic blood pressure 90 mm[Hg] Bong [place] PROFESSOR OF [employer] Work Phone: [facility] 12-19-2023 10:26-0400 Heart rate 66 /min Bong [place] PROFESSOR OF [employer] Work Phone: [facility] [place] 12-19-2023 10:26-0400 Respiratory rate 18 /min Bong [place] PROFESSOR OF [employer] Work Phone: [facility] 12-19-2023 10:26-0400 SaO2% (BldA) [Mass fraction] 91 % Bong Zhane PROFESSOR OF [employer] Work Phone: [facility] 12-19-2023 10:26-0400 Systolic blood pressure 116 mm[Hg] Bong Zhane PROFESSOR OF [employer] Work Phone: [facility] 11-16-2023 14:20-0400 Body temperature 98 [degF] YULISA Koch Anglim Work Phone: [facility] 11-16-2023 14:20-0400 Diastolic blood pressure 68 mm[Hg] PROFESSOR OF GERMAN Jordyn Anglim Work Phone: [facility] 11-16-2023 14:20-0400 Heart rate 92 /min PROFESSOR OF GERMANMare Barrera Work Phone: [facility] 11-16-2023 14:20-0400 Respiratory rate 16 /min PROFESSOR OF GERMANMare Barrera Work Phone: [facility] 11-16-2023 14:20-0400 SaO2% (BldA) [Mass fraction] 97 % PROFESSOR OF GERMANMare Barrera Work Phone: [facility] 11-16-2023 14:20-0400 Systolic blood pressure 143 mm[Hg] PROFESSOR OF GERMANMare Barrera Work Phone: [facility] 11-15-2023 07:47-0400 Body height 167.64 cm PROFESSOR OF GERMANMare Barrera Work Phone: [facility] 11-13-2023 05:56-0400 Inhaled oxygen flow rate 1.5 L/min PROFESSOR OF GERMANMare Barrera Work Phone: [facility] 11-11-2023 04:42-0400 Body weight 160 kg PROFESSOR OF GERMANMare Barrera Work Phone: [facility] 10-30-2023 11:12-0400 Body height 167.6 cm Gina Adrielton PROFESSOR OF GERMAN-[employer]OR [employer] Work Phone: [facility] 10-30-2023 11:12-0400 Body mass index (BMI) [Ratio] 56.49 kg/m2 Gina Bourgeois PROFESSOR OF GERMAN-[employer]OR [employer] Work Phone: [facility] [employer] [facility] 10-30-2023 11:12-0400 Body weight 158.76 kg Gina Bourgeois PROFESSOR OF GERMAN-[employer]OR [employer] Work Phone: [facility] 10-30-2023 11:12-0400 Diastolic blood pressure 83 mm[Hg] Gina Bourgeois PROFESSOR OF GERMAN-[employer]OR [employer] Work Phone: [facility] 10-30-2023 11:12-0400 Heart rate 80 /min Gina Bourgeois PROFESSOR OF GERMAN-[employer] Work Phone: [facility] 10-30-2023 11:12-0400 Respiratory rate 18 /min Gina Bourgeois PROFESSOR OF GERMAN-[employer] Work Phone: [facility] 10-30-2023 11:12-0400 SaO2% (BldA) [Mass fraction] 99 % Gina Bourgeois PROFESSOR OF GERMAN-[employer] Work Phone: [facility] 10-30-2023 11:12-0400 Systolic blood pressure 126 mm[Hg] Gina Bourgeois PROFESSOR OF GERMAN-[employer] Work Phone: [facility] 09-27-2023 15:42-0400 Body height 165.1 cm Jordyn Moreira MD Work Phone: [facility] 09-27-2023 15:42-0400 Body mass index (BMI) [Ratio] 57.24 kg/m2 Jordyn Moreira MD Work Phone: [facility] 09-27-2023 15:42-0400 Body weight 156.04 kg Jordyn Moerira MD Work Phone: [facility] 09-27-2023 15:42-0400 Diastolic blood pressure 96 mm[Hg] Jordyn Moreira MD Work Phone: [facility] 09-27-2023 15:42-0400 Heart rate 78 /min Jordyn Moreira MD Work Phone: [facility] 09-27-2023 15:42-0400 SaO2% (BldA) [Mass fraction] 97 % Jordyn Moreira MD Work Phone: [facility] 09-27-2023 15:42-0400 Systolic blood pressure 136 mm[Hg] Jordyn Moreira MD Work Phone: [facility] 08-16-2023 14:08-0400 Body height 165.1 cm Bong [place] PROFESSOR OF GERMAN-ANCHOR [employer] P[employer]ER Work Phone: [facility] 08-16-2023 14:08-0400 Body mass index (BMI) [Ratio] 56.75 kg/m2 Bong Phelan PROFESSOR OF GERMAN-[employer]OR [employer]ER Work Phone: [facility] 08-16-2023 14:08-0400 Body weight 154.68 kg Bong Phelan PROFESSOR OF GERMAN-[employer]OR [employer] Work Phone: [facility] 08-16-2023 14:08-0400 Diastolic blood pressure 80 mm[Hg] Bong Leachight PROFESSOR OF GERMAN-AN[employer]OR [employer] P[employer]ER Work Phone: [facility] 08-16-2023 14:08-0400 Heart rate 71 /min Bong Leachight PROFESSOR OF GERMAN-[employer]OR [employer] Work Phone: [facility] 08-16-2023 14:08-0400 Respiratory rate 18 /min Bong Phelan PROFESSOR OF GERMAN-[employer] Work Phone: [facility] 08-16-2023 14:08-0400 SaO2% (BldA) [Mass fraction] 99 % Bong Phelan PROFESSOR OF GERMAN-[employer] Work Phone: [facility] 08-16-2023 14:08-0400 Systolic blood pressure 120 mm[Hg] Bong Phelan PROFESSOR OF GERMAN-[employer] Work Phone: [facility] 08-02-2023 10:04-0400 Body height 165.1 cm Michael Stephens MD Work Phone: [facility] 08-02-2023 10:04-0400 Body mass index (BMI) [Ratio] 56.75 kg/m2 Michael Stephens MD Work Phone: [facility] 08-02-2023 10:04-0400 Body weight 154.68 kg Michael Stephens MD Work Phone: [facility] 02-07-2022 17:15-0500 Body height 167.64 cm Alesha Watkins Other [employer] Other 02-07-2022 17:15-0500 Body temperature 98 [degF] Alesha Watkins Other [employer] Other 02-07-2022 17:15-0500 Diastolic blood pressure 106 mm[Hg] Alesha Watkins Other [employer] Other 02-07-2022 17:15-0500 Respiratory rate 18 /min Alesha Watkins Other [employer] Other 02-07-2022 17:15-0500 SaO2% (BldA) [Mass fraction] 99 % Alesha Watkins Other [employer] Other 02-07-2022 17:15-0500 Systolic blood pressure 143 mm[Hg] Alesha Watkins Other [employer] Other Encounters Encounter Date Encounter Type Care Provider Facility Start: 10-20-2024 End: 10-20-2024 Orders Only Bong Phelan PROFESSOR OF GERMAN-AN[employer]OR [employer]ER Work Phone: [facility] Comment on above: Pre-diabetes (Primar y Dx) Start: 10-07-2024 End: 10-07-2024 Refill Bong Phelan PROFESSOR OF GERMAN-[employer]OR [employer] Work Phone: [facility] Comment on above: Medication refill Start: 09-26-2024 End: 09-26-2024 Refill Bong Phelan PROFESSOR OF G[employer]MAN-[employer] Work Phone: [facility] Comment on above: Gastroesophageal ref lux disease without esophagitis; Essential hypertension Start: 09-10-2024 End: 09-10-2024 Refill Bong Phelan PROFESSOR OF G[employer]MAN-[employer] Work Phone: [facility] Comment on above: Medication refill Start: 08-10-2024 End: 08-10-2024 Refill Bong Phelan PROFESSOR OF GERMAN-[employer] [facility] Comment on above: Medication refill Start: 08-08-2024 End: 08-08-2024 Orders Only Bong Phelan PROFESSOR OF GERMAN-[employer] Work Phone: [facility] Comment on above: Systemic lupus eryth ematosus, unspecified SLE type, unspecified organ involvement status ([facility]) Start: 07-22-2024 End: 07-22-2024 Orders Only Bong Phelan PROFESSOR OF GERMAN-[employer]OR [employer]ER Work Phone: [facility] Comment on above: Dysuria (Primary Dx) ; Urinary urgency Possible exposure to STI (Primary Dx) Start: 07-21-2024 [facility] Start: 07-18-2024 End: 07-18-2024 ambulatory [facility] Start: 07-18-2024 End: 07-18-2024 Office outpatient visit 25 minutes Bong Phelan PROFESSOR OF GERMAN-[employer]OR [employer]ER Work Phone: [facility] Comment on above: Preventative health care (Primary Dx); Fall, initial encounter; Acute pain of left knee; Flank pain; Urinary frequency; Vitamin D deficiency; SOPHIE (obstructive sleep apnea); Morbid obesity with BMI of 50.0-59.9, adult ([facility]); Prediabetes Start: 07-18-2024 End: 07-18-2024 Patient encounter status Bong Phelan PROFESSOR OF GERMAN-[employer] Work Phone: [facility] [employer] [facility] Start: 07-07-2024 End: 07-07-2024 Telephone encounter Myrtle Mckeon MA [facility] Start: 06-09-2024 End: 06-10-2024 Refill Bnog Phelan PROFESSOR OF GERMAN-[employer] Work Phone: [facility] Comment on above: Systemic lupus eryth ematosus, unspecified SLE type, unspecified organ involvement status ([facility]); Abscess; Gastroesophageal reflux disease without esophagitis; Medication refill Start: 06-02-2024 End: 06-02-2024 Refill Bong Phelan PROFESSOR OF GERMAN-[employer] Work Phone: [facility] Start: 04-22-2024 End: 04-22-2024 Refill Bong Zhane PROFESSOR OF GERMAN[employer] Work Phone: [facility] Start: 04-14-2024 End: 04-14-2024 Orders Only Bongcl [place] PROFESSOR OF GERMAN-ANCHOR [employer] P[employer]ER Work Phone: [facility] Comment on above: Spondylosis without myelopathy or radiculopathy, lumbosacral region (Primary Dx) Start: 04-14-2024 End: 04-14-2024 Refill Bong Leachight PROFESSOR OF GERMAN-[employer]OR [employer] P[employer]ER Work Phone: [facility] Comment on above: Medication refill Start: 03-20-2024 End: 03-20-2024 ambulatory BONG PHELAN [facility] Start: 03-18-2024 End: 03-18-2024 Refill Bong Phelan PROFESSOR OF G[employer]MAN[employer] Work Phone: [facility] Comment on above: Gastroesophageal ref lux disease without esophagitis Start: 03-14-2024 End: 03-14-2024 Orders Only Bong Phelan PROFESSOR OF GERMAN[employer] Work Phone: [facility] Comment on above: Lumbosacral spondylo sis without myelopathy; Primary osteoarthritis of left knee Start: 03-03-2024 End: 03-03-2024 Refill Bong Zhane PROFESSOR OF GERMAN-[employer] Work Phone: [facility] Start: 02-22-2024 End: 02-22-2024 ambulatory [facility] Start: 02-22-2024 End: 02-22-2024 ambulatory [facility] Start: 02-22-2024 End: 02-22-2024 [facility] PROFESS[facility] OF [facility] Work Phone: [facility] Comment on above: Abscess (Primary Dx) ; Preventative health care; Lumbosacral spondylosis without myelopathy; Acute cystitis without hematuria; Encounter for screening mammogram for malignant neoplasm of breast; Screen for colon cancer; Primary osteoarthritis of left knee; Prediabetes; Essential hypertension; BMI 50.0-59.9, adult ([facility]) Start: 02-22-2024 End: 02-22-2024 Patient encounter status Bong [place] PROFESSOR OF GERMAN-[employer]OR [employer] P[employer]ER Work Phone: [facility] Start: 02-22-2024 End: 02-22-2024 ambulatory [facility] Start: 02-12-2024 End: 02-12-2024 Orders Only Elke Andino PROFESSOR OF GERMAN-[employer] Work Phone: [facility] Start: 02-11-2024 End: 02-11-2024 ambulatory RAMAN MIGUEL Not Available Start: 02-11-2024 End: 02-11-2024 Office outpatient visit 15 minutes Raman Miguel DO Work Phone: [facility] Comment on above: ASCUS with positive high risk HPV cervical; Vasomotor symptoms due to menopause Start: 02-11-2024 End: 02-11-2024 Bamboo flowsheet Raman Miguel DO Work Phone: [facility] Start: 02-11-2024 End: 02-19-2024 Bamboo flowsheet Raman Miguel DO Work Phone: [facility] Start: 02-11-2024 End: 02-19-2024 Clinisync Result Encounter Raman Miguel DO Work Phone: [facility] External Department Unsolicited Start: 02-11-2024 End: 02-25-2024 [facility] Start: 02-04-2024 End: 02-04-2024 Bamboo flowsheet Ainsley ELDRIDGE Work Phone: [facility] Start: 02-04-2024 End: 02-04-2024 Bamboo flowsheet Ainsley ELDRIDGE Work Phone: [facility] Start: 02-04-2024 End: 02-04-2024 ambulatory AINSLEY STACK Not Available Start: 02-04-2024 End: 02-04-2024 Office outpatient visit 15 minutes Ainsley ELDRIDGE Work Phone: [facility] Comment on above: Encounter for weight loss counseling Start: 02-01-2024 End: 02-01-2024 Telephone encounter [facility]alo Pat[facility] Start: 01-30-2024 End: 01-30-2024 Office outpatient visit 25 minutes Bong Phelan PROFESSOR OF GERMAN-[employer] Work Phone: [facility] Comment on above: Other migraine witho ut status migrainosus, not intractable (Primary Dx); Muscle spasm; Primary osteoarthritis of left knee Start: 01-30-2024 End: 01-30-2024 [facility] Start: 01-29-2024 End: 01-29-2024 ambulatory JORDYN MOREIRA [facility] Start: 01-29-2024 End: 01-29-2024 Office outpatient visit 15 minutes Jordyn Moreira MD [facility] Comment on above: Essential hypertensi on (Primary Dx) Start: 01-28-2024 End: 01-28-2024 Telephone encounter Antoinette Syed [facility] Start: 01-25-2024 End: 01-25-2024 ambulatory NEENA DEL CASTILLO [facility] Start: 01-17-2024 End: 01-17-2024 Telephone encounter [facility]ke [facility]ERS [facility] Start: 01-14-2024 End: 01-14-2024 ambulatory [facility] Start: 01-11-2024 End: 01-11-2024 ambulatory [facility] Start: 01-10-2024 End: 01-10-2024 ambulatory [facility] Start: 01-10-2024 End: 01-10-2024 Office outpatient visit 25 minutes Neena Adams [place] Work Phone: [facility] Comment on above: Mild intermittent as thma without complication (Primary Dx); Other acute pulmonary embolism, unspecified whether acute cor pulmonale present (CMS-HCC); Right lower lobe lung mass; Pulmonary hypertension (CMS-HCC) Start: 01-07-2024 End: 01-07-2024 ambulatory BOBBI Oziel ORTIZ [facility] Start: 01-07-2024 End: 01-07-2024 Office outpatient visit 25 minutes Bobbi Ortiz MD Work Phone: [facility] Comment on above: Acute pulmonary embo lism with acute cor pulmonale, unspecified pulmonary embolism type (CMS-HCC) (Primary Dx) Start: 12-26-2023 End: 12-26-2023 Orders Only Bong Phelan PROFESSOR OF GERMAN-[employer] Work Phone: [facility] Comment on above: Primary osteoarthrit is of left knee Start: 12-22-2023 End: 12-22-2023 Refill Bong Zhane PROFESSOR OF G[employer]MAN-[employer] Work Phone: [facility] Comment on above: Gastroesophageal ref lux disease without esophagitis Start: 12-21-2023 End: 12-21-2023 Orders Only Bong Phelan PROFESSOR OF G[employer]MAN[employer] Work Phone: [facility] Comment on above: Primary osteoarthrit is of left knee (Primary Dx) Start: 12-19-2023 End: 12-19-2023 ambulatory [facility] Start: 12-19-2023 End: 12-19-2023 Transitional care manage srvc 7 day discharge Bong Harriswright PROFESSOR OF GERMAN-ANCHOR [employer] P[employer]ER Work Phone: [facility] Comment on above: Other acute pulmonar y embolism, unspecified whether acute cor pulmonale present ([facility]) (Primary Dx) Start: 12-18-2023 End: 12-18-[address] [facility] Start: 12-17-2023 End: 10-07-2024 Telephone encounter Dayanna Mojica RN [facility] Comment on above: Transition Of Care Start: 12-14-2023 End: 12-14-2023 Telephone encounter Kathy dunn Comment on above: medication order Start: 12-13-2023 End: 12-13-2023 Telephone encounter Sarah Ventura RN Work [facility] Start: 12-13-2023 End: 12-14-2023 Evaluation and management of inpatient LUDWIN LATOSHA [facility] Start: 12-12-2023 End: 12-13-2023 Emergency department patient visit [facility] Start: 12-10-2023 End: 12-25-2023 Telephone encounter Jenifer Boothe RN [facility] Comment on above: Transition Of Care Start: 12-10-2023 End: 12-10-2023 ambulatory CHITO TORO [facility] Start: 12-07-2023 End: 12-07-2023 Telephone encounter Linda dunn Comment on above: Blood Clot(s) Start: 12-07-2023 End: 12-09-2023 Evaluation and management of inpatient SIMONA LOGAN [facility] Start: 12-06-2023 End: 12-07-2023 Emergency department patient visit [facility] Start: 12-06-2023 End: 12-06-2023 ambulatory [facility] Start: 12-05-2023 ambulatory BONG PHELAN [facility] Start: 11-19-2023 End: 11-19-2023 ambulatory [facility] Start: 11-14-2023 Non-patient / Non-visit PROFESSOR OF GERMAN Maida Barrera Work Phone: [facility] Work Phone: Start: 11-07-2023 Non-patient / Non-visit PROFESSOR OF GERMAN Maida llanos Angconsuelo Work Phone: [facility] Work Phone: Start: 11-06-2023 End: 11-16-2023 Evaluation and management of inpatient YULISA Barrera Work Phone: [facility] Work Phone: Start: 10-31-2023 Evaluation and manag ement of inpatient [facility] Start: 10-31-2023 ambulatory [facility] Start: 10-31-2023 End: 11-06-2023 Evaluation and management of inpatient [facility] Start: 10-30-2023 End: 10-30-2023 ambulatory GINAMARY BOURGEOIS [facility] Start: 10-30-2023 End: 10-30-2023 Office outpatient visit 25 minutes Gina Bourgeois PROFESSOR OF GERMAN-[employer] Work Phone: [facility] Comment on above: Disc displacement, l umbar (Primary Dx); Chronic bilateral low back pain, unspecified whether sciatica present Start: 10-22-2023 Encounter for other preprocedural examination [facility] Start: 10-22-2023 End: 10-22-2023 ambulatory [facility] Comment on above: Lumbosacral spondylo sis without myelopathy (Primary Dx) Start: 10-01-2023 End: 10-01-2023 Orders Only Bong Zhane PROFESSOR OF GERMAN-[employer] Work Phone: [facility] Comment on above: Primary osteoarthrit is of left knee (Primary Dx) Start: 09-28-2023 End: 09-28-2023 Orders Only Bong Harriswright PROFESSOR OF GERMAN-[employer] Work Phone: [facility] Comment on above: Primary osteoarthrit is of left knee (Primary Dx) Start: 09-27-2023 [facility]ced[facility] Start: 09-27-2023 End: 09-27-2023 Office outpatient visit 25 minutes Jordyn Moreira MD Work Phone: [facility] Comment on above: Pre-operative cleara nce (Primary Dx); Abnormal EKG; Pre-operative cardiovascular examination; Essential hypertension Start: 09-27-2023 End: 09-27-2023 Preoperative state Jordyn Moreira MD Work Phone: [facility] Start: 09-27-2023 End: 09-27-2023 ambulatory [facility] Start: 09-27-2023 Encounter for other preprocedural examination [facility] Start: 09-27-2023 End: 01-29-2024 Patient encounter status Jordyn Moreira MD Work Phone: [facility] Start: 09-27-2023 End: 09-27-2023 Refill Bong Zhane PROFESSOR OF [employer]MAN[employer] Work Phone: [facility] Comment on above: Essential hypertensi on Start: 09-26-2023 End: 09-26-2023 Telephone encounter Zena Mireles CMA [facility] Start: 09-12-2023 End: 09-12-2023 Orders Only Bong Zhane PROFESSOR OF [employer]MAN[employer] Work Phone: [facility] Comment on above: Systemic lupus eryth ematosus, unspecified SLE type, unspecified organ involvement status ([facility]) (Primary Dx) Start: 09-10-2023 End: 09-12-2023 Refill Bong Harriswright PROFESSOR OF GERMAN-[employer] Work Phone: [facility] Comment on above: Other forms of syste alesha lupus erythematosus, unspecified organ involvement status ([facility]) Start: 08-21-2023 End: 08-21-2023 Orders Only Bong Zhane PROFESSOR OF G[employer]MAN[employer] Work Phone: [facility] Comment on above: Pre-operative cleara nce (Primary Dx); Abnormal EKG Start: 08-21-2023 End: 08-21-2023 Preoperative state Bong Zhane PROFESSOR OF G[employer]MAN-[employer] Work Phone: [facility] Work Phone: Start: 08-18-2023 End: 08-18-2023 Orders Only Bong [place] PROFESSOR OF GERMAN-[employer]ER Work Phone: [facility] Comment on above: 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) Start: 08-17-2023 Encounter for genera l adult medical examination without abnormal findings [facility] Start: 08-17-2023 End: 08-20-2023 ambulatory [facility] Start: 08-16-2023 End: 08-16-2023 ambulatory [facility] Start: 08-16-2023 End: 08-16-2023 ambulatory RAMAN MIGUEL Not Available Start: 08-16-2023 End: 08-16-2023 Office outpatient visit 25 minutes Bong Phelan PROFESSOR OF [employer] Work Phone: [facility] Comment on above: Pre-diabetes (Primar y Dx); Urinary frequency; Preventative health care; Reactive depression; Other migraine without status migrainosus, not intractable; BV (bacterial vaginosis) Start: 08-16-2023 End: 08-16-2023 Patient encounter status Bong Phelan PROFESSOR OF [employer]MAN[employer] Work Phone: [facility] Start: 08-16-2023 End: 08-16-2023 ambulatory [facility] Start: 08-16-2023 Encounter for genera l adult medical examination without abnormal findings [facility] Start: 08-14-2023 End: 08-14-2023 Refill Bong Phelan PROFESSOR OF [employer]MAN[employer] [facility] Comment on above: Pre-diabetes Systemic lupus eryth ematosus, unspecified SLE type, unspecified organ involvement status ([facility]) Start: 08-11-2023 End: 08-11-2023 Orders Only Bong Phelan PROFESSOR OF [employer]MAN-[employer] Work Phone: [facility] Comment on above: Other forms of syste alesha lupus erythematosus, unspecified organ involvement status ([facility]) Start: 08-08-2023 End: 08-08-2023 Orders Only Bong Phelan PROFESSOR OF [employer] Work Phone: [facility] Start: 08-07-2023 End: 08-07-2023 ambulatory RAMAN RIVERA Not Available Start: 08-02-2023 End: 08-02-2023 Office outpatient new 20 minutes Michael Stephens MD Work Phone: [facility] Comment on above: Primary osteoarthrit is of left knee (Primary Dx) Start: 07-23-2023 End: 07-23-2023 ambulatory LYSSA PARK [facility] Comment on above: Primary osteoarthrit is of left knee (Primary Dx) Start: 07-18-2023 End: 07-18-2023 ambulatory AINSLEY SREEKANTH [facility] Comment on above: Systemic lupus eryth ematosus, unspecified SLE type, unspecified organ involvement status ([facility]) (Primary Dx); Primary osteoarthritis of left knee; Spondylosis without myelopathy or radiculopathy, lumbar region; Spondylosis without myelopathy or radiculopathy, lumbosacral region Other forms of syste alesha lupus erythematosus, unspecified organ involvement status ([facility]) Start: 07-12-2023 End: 07-12-2023 Office outpatient visit 15 minutes Cynthia Wilcox PROFESSOR OF [employer]MAN[employer] Work Phone: [facility] Comment on above: Acute cystitis witho ut hematuria (Primary Dx) Start: 07-11-2023 End: 07-11-2023 Orders Only Bong [place] PROFESSOR OF G[employer]MAN-[employer] Work Phone: [facility] Start: 07-08-2023 End: 07-08-2023 Refill Bong [place] PROFESSOR OF [employer] Work Phone: [facility] Comment on above: Systemic lupus eryth ematosus, unspecified SLE type, unspecified organ involvement status ([facility]) Start: 07-04-2023 End: 07-04-2023 Refill Bong Zhane PROFESSOR OF [employer] Work Phone: [facility] Comment on above: Pre-diabetes Start: 06-28-2023 End: 06-29-2023 Telephone encounter [facility] Comment on above: Medication issue Start: 06-18-2023 Orders Only Bong Cartwr ight PROFESSOR OF GERMAN-ANCHOR TACK PULLER Work Phone: [facility] Start: 06-11-2023 Orders Only Bong Cartwr ight PROFESSOR OF GERMAN-ANCHOR T[employer] P[employer]ER Work Phone: [facility] Comment on above: Other forms of syste alesha lupus erythematosus, unspecified organ involvement status ([facility]) Pre-diabetes (Primar y Dx) Start: 06-01-2023 Refill Bong Cartwr ight PROFESSOR OF GERMAN-[employer]CHOR T[employer] P[employer]ER Work Phone: [facility] Comment on above: Gastroesophageal ref lux disease without esophagitis Start: 05-24-2023 Orders Only Bong Cartwr ight PROFESSOR OF GERMAN-[employer]CHOR T[employer] P[employer]ER Work Phone: [facility] Comment on above: Chronic pain of left knee (Primary Dx); Arthritis of left knee Start: 05-21-2023 Refill Barak Sandhu [facility] Start: 05-17-2023 Refill [facility]ochitl Muir [facility] Comment on above: Gastroesophageal ref lux disease without esophagitis Start: 05-15-2023 Refill Bong Harriswr ight PROFESSOR OF GERMAN-ANCHOR T[employer] P[employer]ER Work Phone: [facility] Comment on above: Pre-diabetes Start: 05-07-2023 Refill Bong Cartwr ight PROFESSOR OF GERMAN-ANCHOR T[employer] P[employer]ER Work Phone: [facility] Comment on above: Medication refill Systemic lupus eryth ematosus, unspecified SLE type, unspecified organ involvement status ([facility]) Start: 05-04-2023 Orders Only Bong Harriswr ight PROFESSOR OF GERMAN-ANCHOR TACK PULLER Work Phone: [facility] Comment on above: Hepatic steatosis (P rimary Dx) Epigastric pain (Ves[place] velia Dx); Hepatic steatosis; Other forms of systemic lupus erythematosus, unspecified organ involvement status ([facility]) Start: 05-01-2023 Orders Only Bong Harriswr ight PROFESSOR OF GERMAN-[employer]CHOR T[employer] P[employer]ER Work Phone: [facility] Start: 04-30-2023 Orders Only Bong Harriswr ight PROFESSOR OF GERMAN-[employer]CHOR T[employer] P[employer]ER [facility] Phone[facility] Comment on above: Acute cystitis witho ut hematuria (Primary Dx) Start: 04-30-2023 End: 04-30-2023 Office outpatient visit 25 minutes Darlin Wilkerson MD Work Phone: [facility] Comment on above: Lupus ([facility]) (V[place] velia Dx); Lumbosacral spondylosis without myelopathy; Class 3 severe obesity due to excess calories without serious comorbidity with body mass index (BMI) of 50.0 to 59.9 in adult ([facility]); Primary osteoarthritis of left knee; Medication monitoring encounter Start: 04-24-2023 Orders Only Bong Harriswr ight PROFESSOR OF GERMAN-[employer]CHOR [employer] P[employer]ER Work Phone: [facility] Comment on above: Acute cystitis witho ut hematuria (Primary Dx) Start: 04-06-2023 Telephone encounter Judy Dumas [facility] Comment on above: Xray result Qulipta samples Start: 04-06-2023 End: 04-06-2023 Office outpatient visit 15 minutes Bong [place] PROFESSOR OF GERMAN-[employer]CHOR T[employer] PULLER Work Phone: [facility] Comment on above: Gastroesophageal ref lux disease without esophagitis (Primary Dx); Urinary frequency; Chest discomfort; Pre-diabetes Start: 03-21-2023 Orders Only Bong Leach ight PROFESSOR OF G[employer]MAN-[employer] Work Phone: [facility] Comment on above: Other forms of syste alesha lupus erythematosus, unspecified organ involvement status ([facility]) Start: 03-09-2023 Refill Xochitl Muir [facility] Comment on above: Pre-diabetes Start: 03-08-2023 Orders Only Bong Leach ight PROFESSOR OF GERMAN-[employer]CH[employer] P[employer] Work Phone: [facility] Comment on above: Other forms of syste alesha lupus erythematosus, unspecified organ involvement status ([facility]) (Primary Dx); Pre-diabetes Start: 03-02-2023 Orders Only Bong Leach ight PROFESSOR OF GERMAN-[employer]CH[employer] Work Phone: [facility] Comment on above: Pre-diabetes (Primar y Dx) Start: 03-01-2023 End: 03-01-2023 Office outpatient visit 10 minutes Bong Harriswright PROFESSOR OF [employer] P[employer]ER Work Phone: [facility] Comment on above: Pre-diabetes (Primar y Dx) Start: 11-10-2022 End: 11-11-2022 ambulatory MATERIALS ASSISTANT Silvia Sherman Facility:[facility] [place] Start: 10-24-2022 End: 10-25-2022 ambulatory Velia LUND Facility:[facility] Start: 06-29-2022 End: 06-29-2022 ambulatory Lynda ePna Other [employer] Other Start: 06-29-2022 Telephone encounter Lynda Pena [facility] [address] Start: 06-28-2022 End: 06-28-2022 ambulatory Shilpi Nguyen Other [employer] Other Start: 06-28-2022 Telephone encounter Shilpi [facility] Start: 02-07-2022 End: 02-07-2022 ambulatory Alesha Watkins Other [employer] Other Start: 02-07-2022 Office outpatient vi sit 15 minutes Alesha Watkins [facility] Start: 02-09-2021 End: 02-10-2021 ambulatory LYSSA PARK Facility:[facility] Start: 03-04-2018 End: 03-05-2018 Patient encounter procedure SALLY THONOTOSASSA Facility: Procedures Date Procedure Procedure Detail Performing Clinician Start: 03-20-2024 Mammography Bong conleywright PROFESSOR OF G[employer] Work Phone: Start: 02-22-2024 Adult depression scr eening assessment Bong Phelan PROFESSOR OF G[employer]MAN-[employer] Work Phone: Start: 02-11-2024 PAP IG, APT HPV RFX 16/18,45 Raman Miguel DO Work Phone: Start: 01-29-2024 Follow-up visit Follow-up JORDYN MOREIRA Start: 01-07-2024 Follow-up visit Follow-up BOBBI ORTIZ Start: 12-19-2023 Adult depression scr eening assessment Bong Phelan PROFESSOR OF [employer] Work Phone: Start: 12-13-2023 Adult depression scr eening assessment Kathy Cabrera Start: 12-07-2023 Adult depression scr eening assessment Sarah Ventura RN Work Phone: Start: 11-07-2023 X-ray of left knee YULISA Barrera Work Phone: Start: 09-27-2023 Ecg routine ecg w/le ast 12 lds w/i&r Jordyn Moreira MD Work Phone: Start: 08-21-2023 Urnls dip stick/tabl et rgnt non-auto w/o micrscp Bong Phelan PROFESSOR OF [facility] Work Phone: Start: 08-16-2023 Hemoglobin glycosyla olga lidia a1c Bong Phelan [facility] Work Phone: Start: 07-18-2023 Microscopic observat ion [Identifier] in Cervix by Cyto stain Ainsley ELDRIDGE Work Phone: Start: 11-02-2022 Adult depression scr eening assessment Bong Phelan [facility] Work Phone: Start: 01-18-2021 Antibody screen LYSSA PARK Comment on above: Performed By: #### 3 [id number] #### [address] Start: 06-22-2017 Mammography Ainsley ELDRIDGE Work Phone: Plan of Treatment Date Care Activity Detail Author Start: 05-05-2029 DTaP,Tdap and Td Vaccines (3 - Td or Tdap) DTaP,Tdap and Td Vaccines (3 - Td or Tdap) [facility] Start: 05-05-2029 DTaP,Tdap and Td Vaccines (4 - Td or Tdap) DTaP,Tdap and Td Vaccines (4 - Td or Tdap) [facility] Start: 03-11-2027 Screening for malignant neoplasm of colon Colon Cancer Screening 3 Year Cologuard [facility] Start: 07-17-2026 Screening for malignant neoplasm of cervix [facility] Start: 07-18-2025 Adult BMI Screening Adult BMI Screening [facility] Start: 07-18-2025 Tobacco Screening Tobacco Screening [facility] Start: 03-20-2025 Screening for malignant neoplasm of breast Mammogram [facility] Start: 02-21-2025 Adult BMI Screening Adult BMI Screening [facility] Start: 02-21-2025 Depression Screening Depression Screening [facility] Start: 02-21-2025 Tobacco Screening Tobacco Screening [facility] Start: 01-29-2025 Tobacco Screening Tobacco Screening [facility] Start: 01-28-2025 Adult BMI Screening Adult BMI Screening [facility] Start: 01-22-2025 Adult BMI Screening Adult BMI Screening [facility] Start: 01-09-2025 Adult BMI Screening Adult BMI Screening [facility] Start: 01-09-2025 Tobacco Screening Tobacco Screening [facility] Start: 12-18-2024 Adult BMI Screening Adult BMI Screening [facility] Start: 12-18-2024 Depression Screening Depression Screening [facility] Start: 12-18-2024 Tobacco Screening Tobacco Screening [facility] Start: 12-12-2024 Adult BMI Screening Adult BMI Screening [facility] Start: 12-12-2024 Depression Screening Depression Screening [facility] Start: 12-12-2024 Tobacco Screening Tobacco Screening [facility] Start: 12-06-2024 Depression Screening Depression Screening [facility] Start: 12-06-2024 Tobacco Screening Tobacco Screening [facility] Start: 12-05-2024 Adult BMI Screening Adult BMI Screening [facility] Start: 12-05-2024 Tobacco Screening Tobacco Screening [facility] Start: 11-10-2024 Influenza vaccination Influenza Vaccine [facility] Start: 10-29-2024 Adult BMI Screening Adult BMI Screening [facility] Start: 10-29-2024 Tobacco Screening Tobacco Screening [facility] Start: 10-17-2024 End: 10-17-2024 Patient encounter procedure 10/17/2024 2:00 PM EDT [facility] [address] [place] [address] Bong Phelan APRN-AMBROSIO [address] [place] [address] [facility] Start: 09-26-2024 Adult BMI Screening Adult BMI Screening [facility] Start: 09-26-2024 Tobacco Screening Tobacco Screening [facility] Start: 08-20-2024 End: 08-20-2024 Patient encounter procedure 08/20/2024 1:00 PM EDT Procedure Visit [facility] [address] [place] [address] Raman Rivera, DO [address] [place] [address] [facility] Start: 08-15-2024 Adult BMI Screening Adult BMI Screening [facility] Start: 08-15-2024 Tobacco Screening Tobacco Screening [facility] Start: 08-01-2024 Adult BMI Screening Adult BMI Screening [facility] Start: 08-01-2024 Tobacco Screening Tobacco Screening [facility] Start: 07-28-2024 End: 07-28-2024 Patient encounter procedure 07/28/2024 11:00 AM EDT Office Visit [facility] [address] [place] [address] Raman Rivera, DO [address] [place] [address] [facility] Start: 07-22-2024 End: 07-22-2024 Patient encounter procedure 07/22/2024 3:30 PM EDT Appointment [facility] Imaging [address] [place] [phone] Bong Phelan, PROFESSOR OF GERMAN-[employer]CHOR T[employer] PULLER [address] [place] [address] [facility] Imaging Start: 07-18-2024 End: 07-18-2024 Patient encounter procedure 07/18/2024 2:45 PM EDT Office Visit [facility] [address] [place] [address] Bong Phelan, PROFESSOR OF G[employer]MAN-[employer]CHOR [employer] P[employer]ER [address] [place] [address] [facility] Start: 07-18-2024 End: 07-18-[address] CT Head WO contrast CT brain without contrast Imaging STAT Fall, initial encounter Expected: 07/18/2024, Expires: 07/18/2025 [facility] Work Phone: Comment on above: Expected: 07/18/2024, Expires: Start: 07-11-2024 Tobacco Screening Tobacco Screening [facility] Start: 07-07-2024 End: 07-07-2024 Patient encounter procedure [facility] Start: 04-18-2024 End: 04-18-2024 Patient encounter procedure 04/18/2024 2:00 PM EST Office Visit [facility] [address] [place] [address] Bong Phelan APRN-ANCHOR TACK PULLER [address] [place] [phone] [facility] Start: 04-10-2024 End: 04-10-2024 Patient encounter procedure 04/10/2024 3:30 PM EST Office Visit [facility] [address] [place] [place] [address] [place] [address] [place] [address] [facility] Start: 04-06-2024 Tobacco Screening Tobacco Screening [facility] Start: 03-20-2024 End: 03-20-2024 Patient encounter procedure [facility] - Cardiovascular Start: 03-13-2024 End: 03-13-2024 Patient encounter procedure 03/13/2024 3:15 PM EST Appointment [facility] - Mammography/DEXA Imaging [address] [place] [address] [facility] - Mammography/DEXA Imaging Start: 03-07-2024 End: 03-07-2024 Patient encounter procedure 03/07/2024 2:00 PM EST Appointment [facility] [address] [place] [address] Neena Del Castillo, DO [address] [place] [address] [facility] Start: 03-01-2024 Tobacco Screening Tobacco Screening [facility] Start: 02-22-2024 End: 02-21-2025 DBT Breast - bilateral screening Mammography screening bilateral with CAD Imaging Routine Encounter for screening mammogram for malignant neoplasm of breast Expected: 02/22/2024, Expires: 02/21/2025 [facility] Comment on above: Expected: 02/22/2024, Expires: Start: 02-15-2024 End: 02-15-2024 Patient encounter procedure 02/15/2024 9:30 AM EST Appointment [facility] [address] [place] [address] Neena Del Castillo, DO [address] [place] [address] [facility] Start: 02-11-2024 End: 02-11-2024 Patient encounter procedure 02/11/2024 2:20 PM EST Procedure Visit [facility] [address] [place] [phone] Raman Rivera, DO [address] [place] [address] [facility] Start: 02-09-2024 End: 01-09-2025 Echo complete W/O contrast Echo complete W/O contrast Echocardiography Routine Other acute pulmonary embolism, unspecified whether acute cor pulmonale present (CMS-HCC) Pulmonary hypertension (CMS-HCC) Expected: 02/09/2024 (Approximate), Expires: 01/09/2025 [facility] Work Phone: Comment on above: Expected: 02/09/2024 (Approximate), Expi res: 01/09/2025 Start: 01-29-2024 End: 01-29-2024 Patient encounter procedure 01/29/2024 3:15 PM EST Office Visit [facility] [address] [place] [address] Jordyn Moreira MD [address] [place] [address] [facility] Start: 01-11-2024 End: 01-11-2024 Telemedicine consultation with patient 01/11/2024 2:00 PM EDT Telemedicine [facility] [address] [place] [address] Bong Phelan, YULISA-ANCHOR TACK PULLER [address] [place] [address] [facility] Start: 01-10-2024 End: 01-09-2025 PT Skull base to mid-thigh PET CT skull to thigh Imaging Routine Right lower lobe lung mass Expected: 01/10/2024, Expires: 01/09/2025 [facility] Comment on above: Expected: 01/10/2024, Expires: Start: 01-10-2024 End: 01-10-2024 Patient encounter procedure 01/10/2024 9:45 AM EDT Office Visit [facility] [address] [place] [place] [address] Neena Del Castillo, DO [address] [facility] [address] [place] [address] [facility] Start: 01-07-2024 End: 01-07-2024 Patient encounter procedure 01/07/2024 9:15 AM EDT Office Visit [facility] [address] [place] [address] Bobbi Ortiz MD [address] [facility] [address] [place] [address] [facility] Start: 12-19-2023 End: 12-19-2023 Patient encounter procedure 12/19/2023 10:15 AM EDT Office Visit [facility] [address] [facility] [address] [place] [address] Bong Phelan APRN-ANCHOR TACK PULLER [address] [facility] [address] [place] [address] [facility] Start: 12-11-2023 End: 12-11-2023 Patient encounter procedure 12/11/2023 1:15 PM EDT Office Visit [facility] [address] [place] [address] Gina Bourgeois PROFESSOR OF GERMAN-ANCHOR T[employer] PULLER [address] [place] [address] [facility] Start: 12-07-2023 Adult BMI Screening Adult BMI Screening [facility] Start: 11-16-2023 [facility] Start: 11-11-2023 COVID-19 Vaccine ( season) COVID-19 Vaccine ( season) [facility] Start: 11-11-2023 COVID-19 Vaccine ( season) COVID-19 Vaccine ( season) [facility] Start: 11-11-2023 Influenza vaccination [facility] Start: 11-06-2023 Hospital admission [facility] Start: 11-03-2023 Depression Screening Depression Screening [facility] Start: 10-30-2023 End: 10-29-2024 MR Lumbar spine WO contrast MR lumbar spine without contrast Imaging Routine Chronic bilateral low back pain, unspecified whether sciatica present Expected: 10/30/2023, Expires: 10/29/2024 [facility] Comment on above: Expected: 10/30/2023, Expires: Start: 10-30-2023 End: 10-30-2023 Patient encounter procedure 10/30/2023 10:30 AM EDT Office Visit [facility] [address] [place] [address] Gina Bourgeois, PROFESSOR OF GERMAN-ANCHOR TACK PULLER [address] [place], [place] [address] [facility] Start: 10-04-2023 End: 09-26-2024 Basic metabolic 2000 panel - Serum or Plasma Basic Metabolic Panel Lab Routine Essential hypertension Expected: 10/04/2023 (Approximate), Expires: 09/26/2024 [facility] Work Phone: Comment on above: Expected: 10/04/2023 (Approximate), Expi res: 09/26/2024 Start: 09-27-2023 End: 09-27-2023 Patient encounter procedure 09/27/2023 3:30 PM EDT Office Visit [facility] [address] [phone] Jordyn Moreira MD [address] [place], [place] [phone] [facility] Start: 09-17-2023 End: 09-17-2023 Telemedicine consultation with patient 09/17/2023 2:00 PM EDT Telemedicine [facility] [address] [place] [address] Bong Phelan APRN-ANCHOR TACK PULLER [address] [place] [address] [facility] Start: 09-02-2023 Administration of varicella zoster vaccine Zoster (Shingles) Vaccine (1 of 2) [facility] Start: 08-16-2023 End: 08-16-2023 Patient encounter procedure 08/16/2023 2:00 PM EDT Office Visit [facility] [address] [place] [phone] Bong Phelan APRN-ANCHOR TACK PULLER [address] [place] [address] [facility] Start: 08-02-2023 End: 08-02-2023 Patient encounter procedure 08/02/2023 9:30 AM EDT Office Visit [facility] [address] [place] [address] Michael Stephens MD [address] [place] [address] [facility] Start: 07-30-2023 End: 07-22-2024 XR Knee - left 4 Views X-ray knee left minimum 4 views Imaging Routine Primary osteoarthritis of left knee Expected: 07/30/2023, Expires: 07/22/2024 [facility] Work Phone: Comment on above: Expected: 07/30/2023, Expires: Start: 07-12-2023 End: 07-12-2023 Telemedicine consultation with patient 07/12/2023 10:45 AM EDT Telemedicine [facility] [address] [facility] [address] [place] [phone] Cynthia Wilcox, PROFESSOR OF GERMAN-ANCHOR TACK PULLER [address], [facility] [address] [place] [address] [facility] Start: 05-24-2023 End: 05-23-2024 XR Knee - left 3 Views X-ray knee left 3 views Imaging Routine Chronic pain of left knee Expected: 05/24/2023, Expires: 05/23/2024 [facility] Work Phone: Comment on above: Expected: 05/24/2023, Expires: Start: 05-04-2023 End: 05-04-2024 MRCP Abdomen WO and W contrast IV MRCP with MRI abdomen with and without contrast Imaging Routine Epigastric pain Hepatic steatosis Expected: 05/04/2023, Expires: 05/04/2024 [facility] Work Phone: Comment on above: Expected: 05/04/2023, Expires: 5 Start: 05-01-2023 End: 05-01-2024 CT Abdomen and Pelvis WO contrast CT abdomen and pelvis without contrast Imaging STAT Acute cystitis without hematuria Expected: 05/01/2023, Expires: 05/01/2024 [facility] Work Phone: Comment on above: Expected: 05/01/2023, Expires: 5 Start: 04-30-2023 End: 04-30-2023 Telemedicine consultation with patient 04/30/2023 10:30 AM EST Telemedicine [facility] [address] [phone] Darlin Wilkerson MD [address] [address] [facility] Start: 04-18-2023 End: 04-18-2023 Telemedicine consultation with patient 04/18/2023 3:00 PM EST Telemedicine [facility] [address] [address] Darlin Wilkerson MD [address] [address] [facility] Start: 04-09-2023 End: 04-09-2023 Patient encounter procedure 04/09/2023 2:30 PM EST Appointment [facility] - Mammogram DEXA [address] [place] [address] [facility] - Mammogram DEXA Start: 11-10-2022 COVID-19 Vaccine ( season) COVID-19 Vaccine () [facility] Start: 11-10-2022 Influenza vaccination Influenza Vaccine [facility] Start: 10-17-2022 Adult BMI Follow Up Plan Adult BMI Follow Up Plan [facility] Start: 2018 Screening for malignant neoplasm of colon Colon Cancer Screening 3 Year Cologuard [facility] Start: 06-22-2018 Screening for malignant neoplasm of breast Mammogram [facility] Start: 09-02-2003 Screening for malignant neoplasm of cervix HPV/Cotest [facility] Start: 09-02-1991 Adult BMI Follow Up Plan Adult BMI Follow Up Plan [facility] Start: 1973 Screening for malignant neoplasm of colon [facility] End: 07-11-2024 Bacteria identified in Urine by Culture Urine Culture Microbiology Routine Acute cystitis without hematuria 1 Occurrences starting 07/12/2023 until 07/11/2024 [facility] Work Phone: Comment on above: 1 Occurrences starting 07/12/2023 until 07/11/2024 Bacteria identified in Urine by Culture Urine Culture Microbiology Routine Acute cystitis without hematuria 07/12/2023 10:07 PM EDT [facility] End: 04-24-2024 Bacteria identified in Urine by Culture Urine culture (clean catch) Microbiology Routine Acute cystitis without hematuria 1 Occurrences starting 04/24/2023 until 04/24/2024 [facility] Comment on above: 1 Occurrences starting 04/24/2023 until 04/24/2024 End: 02-21-2025 Bacteria identified in Urine by Culture Urine culture (clean catch) Microbiology Routine Acute cystitis without hematuria 1 Occurrences starting 02/22/2024 until 02/21/2025 [facility] on above: 1 Occurrences starting 02/22/2024 until 02/21/2025 Bacteria identified in Urine by Culture Urine culture (clean catch) Microbiology Routine Acute cystitis without hematuria 02/22/2024 6:42 PM EST [facility] End: 07-18-2025 Bacteria identified in Urine by Culture Urine culture (clean catch) Microbiology Routine Flank pain Urinary frequency 1 Occurrences starting 07/18/2024 until 07/18/2025 [facility] Comment on above: 1 Occurrences starting 07/18/2024 until 07/18/2025 Bacteria identified in Urine by Culture Urine culture (clean catch) Microbiology Routine Flank pain Urinary frequency 07/21/2024 4:16 PM EDT [facility] Bacteria identified in Wound by Aerobe culture Wound culture Microbiology Routine Boil 02/22/2024 7:39 PM EST [facility] End: 07-22-2025 Chlamydia trachomatis DNA [Presence] in Unspecified specimen by JAYLEEN with probe detection Chlamydia/Gonorrhoeae by PCR, Urine Microbiology Routine Dysuria Urinary urgency 1 Occurrences starting 07/22/2024 until 07/22/2025 [employer] Work Phone: Comment on above: 1 Occurrences starting 07/22/2024 until 07/22/2025 [facility] Cologuar d [facility] Lab Routine Screen for colon cancer Ordered: 02/22/2024 [facility] on above: Ordered: 02/22/2024 End: 06-10-2024 Hemoglobin A1c/Hemoglobin.total in Blood Hemoglobin A1c Lab Routine Pre-diabetes 1 Occurrences starting 06/11/2023 until 06/10/2024 [employer] Work Phone: Comment on above: 1 Occurrences starting 06/11/2023 until 06/10/2024 End: 10-20-2025 Hemoglobin A1c/Hemoglobin.total in Blood Hemoglobin A1c Lab Routine Pre-diabetes 1 Occurrences starting 10/20/2024 until 10/20/2025 [employer] Work Phone: Comment on above: 1 Occurrences starting 10/20/2024 until 10/20/2025 Patient Education Type 2 diabete s Metformin How to Keep Track of Your Blood Sugar Know your Meds [facility] Work Phone: Patient referral [facility] Work Phone: THIN PREP TIS PAP AN D HR HPV DNA THIN PREP TIS PAP AND HR HPV DNA Pathology and Cytology Routine ASCUS with positive high risk HPV cervical Ordered: 02/11/2024 [facility] Work Phone: Comment on above: Ordered: 02/11/2024 End: 07-22-2025 Trichomonas by PCR Trichomonas by PCR Microbiology Routine Possible exposure to STI 1 Occurrences starting 07/22/2024 until 07/22/2025 [employer] Work Phone: Comment on above: 1 Occurrences starting 07/22/2024 until 07/22/2025 End: 04-24-2024 Urinalysis Urinalysis (clean catch) Lab Routine Acute cystitis without hematuria 1 Occurrences starting 04/24/2023 until 04/24/2024 [employer] Work Phone: Comment on above: 1 Occurrences starting 04/24/2023 until 04/24/2024 End: 07-18-2025 Urinalysis Urinalysis (clean catch) Lab Routine Flank pain Urinary frequency 1 Occurrences starting 07/18/2024 until 07/18/2025 [facility] Comment on above: 1 Occurrences starting 07/18/2024 until 07/18/2025 Urinalysis Urinalysis (orquidea n catch) Lab Routine Flank pain Urinary frequency 07/21/2024 4:16 PM EDT [facility] End: 07-22-2025 Vaginitis Panel PCR Vaginitis Panel PCR Microbiology Routine Possible exposure to STI 1 Occurrences starting 07/22/2024 until 07/22/2025 [facility] Comment on above: 1 Occurrences starting 07/22/2024 until 07/22/2025 End: 02-21-2025 Wound culture Wound culture Microbiology Routine Abscess 1 Occurrences starting 02/22/2024 until 02/21/2025 [facility] Work Phone: Comment on above: 1 Occurrences starting 02/22/2024 until 02/21/2025 End: 10-29-2024 XR Lumbar spine 2 or 3 Views X-ray spine lumbar 2 or 3 views Imaging Routine Chronic bilateral low back pain, unspecified whether sciatica present 1 Occurrences starting 10/30/2023 until 10/29/2024 [facility] Work Phone: Comment on above: 1 Occurrences starting 10/30/2023 until 10/29/2024 [facility] Immunizations Immunization Date Immunization Notes Care Provider [facility] 01-11-2022 Covid-19, Mrna, Lnp- s, Bivalent, Pf, 50mcg/0.5ml or 25mcg/0.25ml Bong [place] PROFESSOR [employer] Work Phone: [facility] 01-11-2022 influenza, injectabl e, quadrivalent, preservative free Bong [place] PROFESSOR [employer] Work Phone: [facility] 01-11-2022 influenza virus vaccine, unspecified formulation Bong [place] PROFESSOR [employer] Work Phone: [facility] 01-17-2021 influenza virus vaccine, unspecified formulation Sarah Ventura RN Work Phone: [facility] 01-17-2021 influenza, injectabl e, quadrivalent, preservative free Bong [place] PROFESSOR [employer] Work Phone: [facility] 07-13-2020 COVID-19, mRNA, LNP- S, PF, 100mcg/0.5mL Dose Bong [place] PROFESSOR [employer] Work Phone: [facility] 06-15-2020 COVID-19, mRNA, LNP- S, PF, 100mcg/0.5mL Dose Bong Zhane PROFESSOR [employer] Work Phone: [facility] 02-17-2020 influenza virus vaccine, unspecified formulation Sarah Ventura RN Work Phone: [facility] 02-17-2020 Influenza, injectabl e, [facility] [place] Canine Kidney, preservative free, quadrivalent Bong [place] PROFESSOR [employer] Work Phone: [facility] 05-05-2019 tetanus toxoid, reduced diphtheria toxoid, and acellular pertussis vaccine, adsorbed [facility] 11-14-2018 tetanus toxoid, reduced diphtheria toxoid, and acellular pertussis vaccine, adsorbed Bong [place] PROFESSOR [employer] Work Phone: [facility] 07-23-2018 DTaP-hepatitis B and poliovirus vaccine Sarah Ventura RN Work Phone: [facility] 07-23-2018 hepatitis B vaccine, adult dosage Bong [place] PROFESSOR [employer] Work Phone: [facility] 01-23-2018 hepatitis B vaccine, adult dosage Bong [place] PROFESSOR [employer] Work Phone: [facility] 12-25-2017 hepatitis B vaccine, adult dosage Bong Zhane PROFESSOR [employer] Work Phone: [facility] Payers Date Payer Category Payer Self-pay [id number] 2022 Medicaid [id number] 2022 Medicaid [id number] 1975 Unknown [id number] 2.16.840.1.311428.3.579.2. 593 1975 Unknown [id number] 2.16.840.1.289127.3.579.2. 647 1973 Unknown [id number] 2.16840.1.278274.3.579.2. 727 1973 Unknown [id number] 2.16840.1.561841.3.579.2. 727 1973 Unknown [id number] 2.840.1.837060.3.579.2. 1286 1973 Unknown [id number] 2.840.1.515917.3.579.2. 128 1973 Unknown [id number] 2.840.1.215400.3.579.2. 1259 1973 Unknown [id number] 2.840.1.267453.3.579.2. 9 1973 Unknown [id number] 2.840.1.852593.3.579.2. 1258 1973 Unknown [id number] 2.840.1.959862.3.579.2. 1259 1973 Unknown [id number] 2.840.1.894712.3.579.2. 1259 1973 Unknown [id number] 2.840.1.995898.3.579.2. 1286 1973 Unknown [id number] 2840.1.294094.3.579.2. 128 1973 Unknown [id number] 2.840.1.728902.3.579.2. 128 1973 Unknown [id number] 2.840.1.541476.3.579.2. 128 1973 Unknown [id number] 2.16840.1.318719.3.579.2. 128 1973 Unknown [id number] 2840.1.971979.3.579.2. 128 1973 Unknown [id number] 2840.1.539521.3.579.2. 1285 1973 Unknown [id number] 2.840.1.399000.3.579.2. 1285 1973 Unknown [id number] 2.16840.1.320978.3.579.2. 1285 1973 Unknown [id number] 2.840.1.545985.3.579.2. 1285 1973 Unknown [id number] 2.840.1.432088.3.579.2. 1285 1973 Unknown [id number] 2.0.1.716970.3.579.2. 1285 1973 Unknown [id number] 2.840.1.849729.3.579.2. 1285 1973 Unknown [id number] 2.0.1.456040.3.579.2. 1285 1973 Unknown [id number] 2.840.1.082626.3.579.2. 1285 1973 Unknown [id number] 2.0.1.818373.3.579.2. 1285 1973 Unknown [id number] 2.840.1.778747.3.579.2. 1285 1973 Unknown [id number] 2.840.1.415432.3.579.2. 1285 1973 Unknown [id number] 2.840.1.562844.3.579.2. 1285 1973 Unknown [id number] 2.840.1.144147.3.579.2. 1285 1973 Unknown [id number] 2.840.1.853255.3.579.2. 1285 1973 Unknown [id number] 2.840.1.729214.3.579.2. 1285 1973 Unknown [id number] 2.16.840.1.319985.3.579.2. 1285 1973 Unknown [id number] 2.16.840.1.203303.3.579.2. 1285 1973 Unknown [id number] 2.16.840.1.262041.3.579.2. 1285 1973 Unknown [id number] 2.16.840.1.748384.3.579.2. 1285 1973 Unknown [id number] 2.16.840.1.173438.3.579.2. 1285 1973 Unknown [id number] 2.16.840.1.976956.3.579.2. 1285 1973 Unknown [id number] 2.16.840.1.116940.3.579.2. 1285 1973 Unknown [id number] 2.16.840.1.681086.3.579.2. 1285 1973 Unknown [id number] 2.16.840.1.439400.3.579.2. 6 1959 Private Health Insurance [facility] [id number] Private Health Insurance [facility] [id number] Private Health Insurance [facility] [id number] Unknown [id number] Unknown Jacquelyn BC/ [id number] Unknown [id number] 2.16.840.1.307133.3.579.2. 531 Social History Date Type Detail Facility Tobacco smoking status NVIS Unknown if ever smoked [facility] Work Phone: Start: 1975 Sex Assigned At Female [facility] Start: 03-25-2020 End: 12-13-2023 Sex Assigned At [employer] Other Start: 08-02-2023 End: 11-07-2023 Tobacco smoking status NHIS Never smoked tobacco (finding) [facility] Tobacco smoking status NHIS Tobacco smoking consumption unknown [facility] Start: 1975 Sex assigned at Not on file [facility] Start: 12-29-2021 End: 08-02-2023 Tobacco use and exposure Smokeless tobacco non-user [facility] Start: 02-22-2024 End: 07-18-2024 Alcoholic beverage intake Ex-drinker (finding) [facility] Start: 03-25-2020 End: 12-13-2023 History of Social function [facility] Has the electric, gas, oil, or water company threatened to shut off services in your home in past 12Mo No [facility] [employer] [facility] How often to you have a drink containing alcohol? Monthly or less [facility] How many standard drinks containing alcohol do you have on a typical day? 1 or 2 [facility] How often do you have 6 or more drinks on 1 occasion? Never [facility] How hard is it for you to pay for the very basics like food, housing, medical care, and heating Somewhat hard [facility] Adolescent depression screening assessment 0 [facility] Start: 10-15-2014 Sex Female (finding) [facility] Start: 03-01-2023 End: 04-06-2023 Alcohol intake Current drinker of alcohol (finding) [facility] Start: 12-27-2020 Alcohol Comment [facility] NEGATED: Highlighted rowStart: NINF History of tobacco use Passive smoker [facility] Medical Equipment Procedure Code Equipment Code Equipment [...] Facility 11-16-2023 Functional status Patient at [facility] Work Phone: Mental Status Date Assessment Result Facility 11-16-2023 Cognitive function Cognitive Sta tus Patient at Baseline [facility] Work Phone: Clinical Notes 02-07-2022 to 10-07-2024 Telephone Encounter - Karol Mai CMA - 10/07/2024 1:38 PM EDTTelephone Encounter - Karol Mai CMA - 10/07/2024 1:38 PM EDTTelephone Encounter - Karol Mai CMA - 09/10/2024 7:23 AM EDT Note Date & Type Note Facility 10-07-2024 Miscellaneous Notes Patient is requesting a refill on this medication. documented in this encounter [facility] 10-07-2024 Telephone encounter Note Patient is requesting a refill on this medication. [facility] 09-10-2024 Miscellaneous Notes Patient is requesting a refill on this medication. documented in this encounter [facility] 09-10-2024 Telephone encounter Note Patient is requesting a refill on this medication. [facility] 07-18-2024 History of Present illness Narrative Images from the original note were not included. [facility] [address] [place] [phone] Name: Navdeep Palma : 1975 CHIEF COMPLAINT Chief Complaint Patient presents with Knee Injury Patient states that since fall 07/14/2024 she has experienced severe knee pain. Dizziness Patient states she is experiencing blurred vision and dizziness frequently. Headache Patient records headache since 04/2024. Diabetes Patient would like to request A1C check. HISTORY OF PRESENT ILLNESS Navdeep Palma is a 48 y.o. old female. Patient presents today for concerns of lightheaded, blurred vision frequently. Onset of symptoms was approximately 2 months ago. She has not seen her eye doctor in 2-3 years. She reports difficulty seeing things far away. She has glasses, states she only wears them when she desperately needs to see. Encouraged patient to schedule an appt with her eye doctor. f Patient reports slipping and falling the other day while stepping out of the shower. She denies lightheaded, or dizziness, she flipped out after a bug landed on her. She reports hitting her head, left knee. 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 Check CT brain and left knee xray ALLERGIES Allergies Allergen Reactions [place] [Hydrocodone-Acetaminophen] Itching and Headache Cyclobenzaprine Headache and Hives Hydrochlorothiazide Nausea Lisinopril Cough MEDICATIONS Current Outpatient Medications on File Prior to Visit Medication Sig Dispense Refill amLODIPine (NORVASC) 10 mg tablet take one tablet by mouth every morning 30 tablet 11 baclofen (LIORESAL) 10 mg tablet Take 1 tablet (10 mg total) by mouth as needed for muscle spasms. 30 tablet 2 citalopram (CeleXA) 20 mg tablet Take 1 tablet (20 mg total) by mouth in the morning. DULoxetine (CYMBALTA) 60 mg capsule TAKE 1 CAPSULE BY MOUTH EVERY MORNING 90 capsule 1 hydrOXYzine (VISTARIL) 50 mg capsule TAKE 1 CAPSULE BY MOUTH 3 TIMES A DAY NEEDED FOR ITCHING 90 capsule 0 losartan (COZAAR) 25 mg tablet Take 1 tablet (25 mg total) by mouth in the morning. 90 tablet 3 metFORMIN (GLUCOPHAGE) 500 mg tablet TAKE 2 TABLETS BY MOUTH EVERY MORNING AND 2 TABLETS EVERY EVENING WITH A MEAL 180 tablet 1 multivitamin (THERAGRAN) tablet Take 1 tablet by mouth in the morning. omeprazole (PriLOSEC) 20 mg capsule TAKE 1 CAPSULE BY MOUTH EVERY MORNING 90 capsule 0 ondansetron ODT (ZOFRAN ODT) 4 mg disintegrating tablet Dissolve 2 tablets (8 mg total) on tongue every 8 (eight) hours as needed for nausea or vomiting. ONETOUCH DELICA PLUS LANCET 33 gauge misc ONETOUCH ULTRA TEST strip ONETOUCH ULTRA2 METER [facility] oxyCODONE-acetaminophen (PERCOCET) 7.5-325 mg per tablet Take 1 tablet by mouth every 6 (six) hours as needed for pain. Max Daily Amount: 4 tablets 20 tablet 0 rivaroxaban (XARELTO) 20 mg tablet tablet Take 1 tablet (20 mg total) by mouth in the morning. 90 tablet 3 SUMAtriptan (IMITREX) 25 mg tablet Take 1 tablet (25 mg total) by mouth once as needed for migraine for up to 1 dose. May repeat in 2 hours if unresolved. Do not exceed 200 mg in 24 hours. 9 tablet 0 topiramate (TOPAMAX) 50 mg tablet TAKE 1 TABLET BY MOUTH EVERY MORNING AND 1 TABLET BEFORE BEDTIME 60 tablet 2 azaTHIOprine (IMURAN) 100 mg tablet TAKE 1 TABLET BY MOUTH 2 TIMES A DAY (Patient not taking: Reported on 07/18/2024) 120 tablet 0 No current facility-administered medications on file prior to visit. MEDICAL/SURGICAL/FAMILY HISTORY Past Medical History: Diagnosis Date Abnormal stress test Allergic Anxiety with depression 12/07/2023 Asthma Back pain Chronic pain disorder CPAP (continuous positive airway pressure) dependence Echocardiogram abnormal EKG abnormality Essential hypertension 02/07/2021 Fibromyalgia, primary Gastroesophageal reflux disease 12/07/2023 Joint pain Low back pain Lupus (systemic lupus erythematosus) ([facility]) Migraine Murmur, cardiac Obesity Osteoarthritis Osteoarthritis Peripheral neuropathy Pneumonia Sleep apnea Tooth loose Upper back pain Past Surgical History: Procedure Laterality Date SECTION three ECTOPIC SURGERY two EKOS, Thrombolysis of PE N/A 12/07/2023 Performed by Alexandra Alejandro MD at [facility] GASTRECTOMY sleeve HERNIA REPAIR HYSTERECTOMY 2009 COMPLETE INJECTION BLOCK NERVE KNEE Left Genicular Left 08/25/2022 Performed by Albert Jones MD at [facility] INJECTION BLOCK NERVE KNEE right genicular Right 05/16/2021 Performed by Albert Jones MD at [facility] JOINT REPLACEMENT Right 02/09/2021 LYMPH NODE DISSECTION bilateral axillae x2 OOPHORECTOMY Bilateral 2008 RADIO FREQUENCY ABLATION L 4/5,5/S1 Left 08/04/2016 Performed by Albert Jones MD at [facility] RADIO FREQUENCY ABLATION L4/5,5/S1 Right 08/21/2016 Performed by Albert Jones MD at [facility] TOTAL KNEE Right 2020 TUBAL [...] of Health Financial Resource Strain: Medium Risk (02/15/2024) Overall Financial Resource Strain (CARDIA) Difficulty of Paying Living Expenses: Somewhat hard Food Insecurity: No Food Insecurity (02/15/2024) Hunger Screening Food Insecurity - Worry: Never True Food Insecurity - Inability: Never True Transportation Needs: No Transportation Needs (02/15/2024) PRAPARE - Transportation Lack of Transportation (Medical): No Lack of Transportation (Non-Medical): No Interpersonal Safety: Not At Risk (12/13/2023) Humiliation, Afraid, Rape, and Kick questionnaire Fear of Current or Ex-Partner: No Emotionally Abused: No Physically Abused: No Sexually Abused: No Housing Instability: Low Risk (02/15/2024) Housing Instability Housing Instability: No Social History Tobacco Use Smoking Status Never Passive exposure: Never Smokeless Tobacco Never REVIEW OF SYSTEMS Review of Systems Constitutional: Negative. HENT: Negative. Respiratory: Positive for shortness of breath (mild). Cardiovascular: Negative. Genitourinary: Negative. Musculoskeletal: Positive for arthralgias. Skin: Negative. Neurological: Positive for light-headedness. Psychiatric/Behavioral: Negative. PHYSICAL EXAMINATION Vitals: 07/18/24 1511 07/18/24 1515 BP: 126/74 BP Site: Right Forearm BP Postition: Sitting BP CUFF SIZE: M (9-13 inches) Pulse: 95 SpO2: 98% Weight: (!) 148.8 kg (328 lb) Height: 165.1 cm (5' 5 ) 165.1 cm (5' 5 ) General appearance: Alert, oriented x 4, cooperative, no apparent distress. HEENT: Normocephalic, without obvious abnormality, atraumatic. PERRLA, no drainage, conjunctiva clear, sclera white. Neck: No JVD, supple, symmetrical, trachea midline. Lungs: Clear to auscultation bilaterally. No rhonchi, rales, wheezes, crackles, crepitus. Heart: Regular rate and rhythm, S1, S2 normal, no murmur, click, rub or gallop. No edema. Abdomen: Soft, non-tender; bowel sounds normal. Extremities: Extremities normal, atraumatic, no cyanosis. Skin: Skin color, texture, turgor normal for age and race. No rashes or lesions. Neurologic: CN 2-12 grossly normal, no numbness/tingling of extremities. Psych: Mood and affect appear appropriate for situation. ASSESSMENT & PLAN 1. Preventative health care (Primary) - CBC auto differential; Future - Comprehensive metabolic panel; Future - Hemoglobin A1c; Future - Lipid profile; Future - Thyroid profile includes TSH FT4; Future - Vitamin B12; Future - Vitamin D 25 hydroxy; Future 2. Fall, initial encounter - CT brain without contrast; Future - X-ray knee left 3 views; Future 3. Acute pain of left knee - X-ray knee left 3 views; Future 4. Flank pain - Urinalysis (clean catch); Future - Urine culture (clean catch); Future 5. Urinary frequency - Urinalysis (clean catch); Future - Urine culture (clean catch); Future I will plan to have the patient return in approximately 3 months for a follow up. The patient was given standard warnings and instructed to call the office with any questions or concerns. RIKI Bower APRN-JILL Sue 07/21/242224 documented in this encounter [facility] 07-07-2024 Miscellaneous Notes LMOM for patient to call and reschedule follow up appointment with Dr Elias in [place] documented in this encounter [facility] 07-07-2024 Telephone encounter Note LMOM for patient to call and reschedule follow up appointment [facility] Dr [facility] [place] [facility] Note Addendum created 1438 by Zane Barfield MD Attestation recorded in Intraprocedure, Flowsheet accepted, Intraprocedure Attestations filed [facility] 02-22-2024 History of Present illness Narrative Images from the original note were not included. [facility] [address] [place] [phone] Name: Navdeep Palma : 1975 CHIEF COMPLAINT Chief Complaint Patient presents with Mass X2 weeks, Left side under bra line, pus with blood is draining HISTORY OF PRESENT ILLNESS Navdeep Palma is a 48 y.o. old female. Patient presents today for left sided axillary mass. Patient noticed a boil a few months ago to the left mid chest wall. In the last couple of weeks, she noticed it was enlarged, hard, with a foul odor and purulent drainage. Patient states she has a low grade fever, but this is not uncommon for her due to medical hx of lupus. Patient endorses left flank pain, will check UA and culture. Patient struggles with chronic lumbar back pain. She was following with pain mgmt, but due to unfortunate circumstances was dismissed from the dept for a no show. Patient developed a bilateral PE s/p knee replacement, and was hospitalized for several days, hence was not able to make it to her appointment. She was quite ill, did not think about calling to cancel. Will refer to new pain mgmt group. Continue to follow Rheumatology for lupus. ALLERGIES Allergies Allergen Reactions [place] [Hydrocodone-Acetaminophen] Itching and Headache Cyclobenzaprine Headache and [...] needed for muscle spasms. 30 tablet 2 citalopram (CeleXA) 20 mg tablet Take 1 tablet (20 mg total) by mouth in the morning. DULoxetine (CYMBALTA) 60 mg capsule Take 1 capsule (60 mg total) by mouth in the morning. 90 capsule 1 hydrOXYzine (VISTARIL) 50 mg capsule TAKE ONE CAPSULE BY MOUTH THREE TIMES A DAY NEEDED FOR ITCHING 90 capsule 0 losartan (COZAAR) 25 mg tablet Take 1 tablet (25 mg total) by mouth in the morning. 90 tablet 3 metFORMIN (GLUCOPHAGE) 500 mg tablet Take 2 tablets (1,000 mg total) by mouth in the morning and 2 tablets (1,000 mg total) in the evening. Take with meals. 60 tablet 0 multivitamin (THERAGRAN) tablet Take 1 tablet by mouth in the morning. omeprazole (PriLOSEC) 20 mg capsule take 1 capsule by mouth every morning 90 capsule 0 ondansetron ODT (ZOFRAN ODT) 4 mg disintegrating tablet Dissolve 2 tablets (8 mg total) on tongue every 8 (eight) hours as needed for nausea or vomiting. ONETOUCH DELICA PLUS LANCET 33 gauge mis USE DIRECTED TO check blood sugar 3 TIMES DAILY & NEEDED DIRECTED ONETOUCH ULTRA TEST strip ONETOUCH ULTRA2 METER misc USE DIRECTED TO test blood sugar predniSONE (DELTASONE) 20 mg tablet TAKE 1 TABLET BY MOUTH EVERY MORNING FOR 5 DAYS 5 tablet 0 rivaroxaban (XARELTO) 20 mg tablet tablet Take 1 tablet (20 mg total) by mouth in the morning. 90 tablet 3 SUMAtriptan (IMITREX) 25 mg tablet Take 1 tablet (25 mg total) by mouth once as needed for migraine for up to 1 dose. May repeat in 2 hours if unresolved. Do not exceed 200 mg in 24 hours. 9 tablet 0 tirzepatide (MOUNJARO) 2.5 mg/0.5 mL pen injector Inject 0.5 mL under the skin. topiramate (TOPAMAX) 50 mg tablet Take 1 tablet (50 mg total) by mouth in the morning and 1 tablet (50 mg total) before bedtime. 60 tablet 0 No current facility-administered medications on file prior to visit. MEDICAL/SURGICAL/FAMILY HISTORY Past Medical History: Diagnosis Date Abnormal stress test Allergic Anxiety with depression 12/07/2023 Asthma Back pain Chronic pain disorder CPAP (continuous positive airway pressure) dependence Echocardiogram abnormal EKG abnormality Essential hypertension 02/07/2021 Fibromyalgia, primary Gastroesophageal reflux disease 12/07/2023 Joint pain Low back pain Lupus (systemic lupus erythematosus) ([facility]) Migraine Murmur, cardiac Obesity Osteoarthritis Osteoarthritis Peripheral neuropathy Pneumonia Sleep apnea Tooth loose Upper back pain Past Surgical History: Procedure Laterality Date SECTION three ECTOPIC SURGERY two EKOS, Thrombolysis of PE N/A 12/07/2023 Performed by Alexandra Alejandro MD at [facility] GASTRECTOMY sleeve HERNIA REPAIR HYSTERECTOMY 2009 COMPLETE INJECTION BLOCK NERVE KNEE Left Genicular Left 08/25/2022 Performed by Albert Jones MD at [facility] INJECTION BLOCK NERVE KNEE right genicular Right 05/16/2021 Performed by Albert Jones MD at [facility] JOINT REPLACEMENT Right 02/09/2021 LYMPH NODE DISSECTION bilateral axillae x2 OOPHORECTOMY Bilateral 2009 RADIO FREQUENCY ABLATION L 4/5,5/S1 Left 08/04/2016 Performed by Albert Jones MD at [facility] RADIO FREQUENCY ABLATION L4/5,5/S1 Right 08/21/2016 Performed by Albert Jones MD at [facility] REPLACEMENT TOTAL KNEE Right 2020 TUBAL [...] of Health Financial Resource Strain: Medium Risk (02/15/2024) Overall Financial Resource Strain (CARDIA) Difficulty of Paying Living Expenses: Somewhat hard Food Insecurity: No Food Insecurity (02/15/2024) Hunger Screening Food Insecurity - Worry: Never True Food Insecurity - Inability: Never True Transportation Needs: No Transportation Needs (02/15/2024) PRAPARE - Transportation Lack of Transportation (Medical): No Lack of Transportation (Non-Medical): No Interpersonal Safety: Not At Risk (12/13/2023) Humiliation, Afraid, Rape, and Kick questionnaire Fear of Current or Ex-Partner: No Emotionally Abused: No Physically Abused: No Sexually Abused: No Housing Instability: Low Risk (02/15/2024) Housing Instability Housing Instability: No Social History Tobacco Use Smoking Status Never Passive exposure: Never Smokeless Tobacco Never REVIEW OF SYSTEMS Review of Systems Constitutional: Positive for fatigue. HENT: Negative. Respiratory: Positive for shortness of breath (exertion). Gastrointestinal: Negative. Genitourinary: Positive for flank pain. Musculoskeletal: Positive for arthralgias, back pain and joint swelling. Skin: Positive for wound (boil left chest wall). Neurological: Negative. Psychiatric/Behavioral: The patient is nervous/anxious. PHYSICAL EXAMINATION Vitals: 02/22/24 1404 BP: 124/76 BP Site: Right Arm BP Postition: Sitting BP CUFF SIZE: M (9-13 inches) Pulse: 76 SpO2: 98% Weight: (!) 146.1 kg (322 lb 3.2 oz) Height: 167.6 cm (5' 5.98 ) General appearance: Obese HEENT: Normocephalic, without obvious abnormality, atraumatic. PERRLA, no drainage, conjunctiva clear, sclera white. Neck: No JVD, supple, symmetrical, trachea midline. Lungs: Clear to auscultation bilaterally. No rhonchi, rales, wheezes, crackles, crepitus. Heart: Regular rate and rhythm, S1, S2 normal, no murmur, click, rub or gallop. No edema. Abdomen: Soft, non-tender; bowel sounds normal. Extremities: Extremities normal, atraumatic, no cyanosis. Skin: left chest wall abscess. Neurologic: CN 2-12 grossly normal, no numbness/tingling of extremities. Psych: Mood and affect appear appropriate for situation. ASSESSMENT & PLAN 1. Preventative health care - CBC auto differential; Future - Comprehensive metabolic panel; Future - Hemoglobin A1c; Future - Thyroid profile includes TSH FT4; Future - Vitamin B12; Future - Vitamin D 25 hydroxy; Future 2. Lumbosacral spondylosis without myelopathy - Ambulatory referral to Pain Management (Non-[facility]); Future - oxyCODONE (ROXICODONE) 5 mg immediate release tablet; Take 1 tablet (5 mg total) by mouth every 6 (six) hours as needed for pain. Max Daily Amount: 20 mg Dispense: 20 tablet; Refill: 0 3. Acute cystitis without hematuria - Urinalysis (clean catch); Future - Urine culture (clean catch); Future 4. Encounter for screening mammogram for malignant neoplasm of breast - Mammography screening bilateral with CAD; Future 5. Screen for colon cancer - Cologuard Non-[facility] 6. Primary osteoarthritis of left knee - oxyCODONE (ROXICODONE) 5 mg immediate release tablet; Take 1 tablet (5 mg total) by mouth every 6 (six) hours as needed for pain. Max Daily Amount: 20 mg Dispense: 20 tablet; Refill: 0 7. Abscess (Primary) - Wound culture; Future - amoxicillin-pot clavulanate (AUGMENTIN) 875-125 mg per tablet; Take 1 tablet by mouth in the morning and 1 tablet before bedtime. Do all this for 10 days. Dispense: 20 tablet; Refill: 0 - doxycycline (VIBRAMYCIN) 100 mg capsule; Take 1 capsule (100 mg total) by mouth in the morning and 1 capsule (100 mg total) before bedtime. Do all this for 7 days. Dispense: 14 capsule; Refill: 0 8. Prediabetes 9. Essential hypertension 10. BMI 50.0-59.9, adult ([facility]) I will plan to have the patient return in approximately 8 weeks for a follow up. The patient was given standard warnings and instructed to call the office with any questions or concerns. MANJU Bower APRN, APRN-CNP 02/22/24 1263 documented in this encounter [facility] [employer] [facility] 02-11-2024 Miscellaneous Notes Patient called and left voicemail stating that she can see her PFT results and she would like to know what they mean as she feels that it showed something concerning. Please review and advise. Attempted to reach patient to discuss concerns and no answer. VM not set up and unable to leave message. Impaired gas transfer seen on testing likely related to her anemia. No intervention is indicated based off lung function data. [employer] spoke to patient and informed per Dr Del Castillo, attempted to reach patient to discuss concerns and no answer. VM not set up and unable to leave message. Impaired gas transfer seen on PFT testing likely related to patient's anemia. No intervention is indicated based off lung function data. Recommend patient to continue plan of care and to keep f/u appt with physician. Patient agreeable documented in this encounter [facility] 02-11-2024 Telephone encounter Note Patient called and left voicemail stating that she can see her PFT results and she would like to know what they mean as she feels that it showed something concerning. Please review and advise. [facility] 02-11-2024 Telephone encounter Note Attempted to reach patient to discuss concerns and no answer. VM not set up and unable to leave message. Impaired gas transfer seen on testing likely related to her anemia. No intervention is indicated based off lung function data. [facility] [employer] [facility] 02-11-2024 Telephone encounter Note [employer] spoke to patient and informed per Dr Del Castillo, attempted to reach patient to discuss concerns and no answer. VM not set up and unable to leave message. Impaired gas transfer seen on PFT testing likely related to patient's anemia. No intervention is indicated based off lung function data. Recommend patient to continue plan of care and to keep f/u appt with physician. Patient agreeable [facility] 02-11-2024 History of Present illness Narrative Reason for Appointment: Patient ID: Navdeep Palma is a 48 y.o. female who presents for Abnormal Pap Smear Patient presents today for Repeat Pap. MEDICATIONS Current Outpatient Medications Medication Instructions albuterol [...] morning SUMAtriptan (IMITREX) 6 mg, As needed Tirzepatide (Mounjaro) 2.5 MG/0.5ML solution auto-injector 0.5 mL, Subcutaneous, Weekly topiramate (TOPAMAX) 25 mg, Daily Turmeric Curcumin 500 mg, Daily ALLERGIES Allergies Allergen Reactions Flexeril [Cyclobenzaprine] Lisinopril Cough Paris [Hydrocodone-Acetaminophen] PROBLEMS Active Ambulatory Problems Diagnosis Date [...] SYSTEMS Review of Systems: Review of Systems All other systems reviewed and are negative. OBJECTIVE Objective: Physical Exam Constitutional: Appearance: Normal appearance. She is well-developed. Genitourinary: Vulva normal. Vaginal cuff intact. Cervix is absent. Uterus is absent. Cardiovascular: Rate and Rhythm: Normal rate and regular rhythm. Pulmonary: Effort: Pulmonary effort is normal. Breath sounds: Normal breath sounds. Abdominal: General: Bowel sounds are normal. There is no distension. Palpations: Abdomen is soft. Tenderness: There is no abdominal tenderness. There is no guarding or rebound. Musculoskeletal: General: No swelling. Normal range of motion. Right lower leg: No edema. Left lower leg: No edema. Neurological: Mental Status: She is alert and oriented to person, place, and time. Skin: General: Skin is warm and dry. Psychiatric: Mood and Affect: Mood normal. Behavior: Behavior normal. Vitals and nursing note reviewed. Exam conducted with a sales audit clerk present. Vitals: Estimated body mass index is 49.93 kg/m as calculated from the following: Height as of 07/25/22: 5' 7 . Weight as of this encounter: 318 lb 12.8 oz. BP: 120/70 No LMP recorded. Patient has had a hysterectomy. ASSESSMENT & PLAN ICD-10-CM 1. ASCUS with positive high risk HPV cervical R87.610 THIN PREP TIS PAP AND HR HPV DNA R87.810 Repeat Pap: Patient presents today for a repeat pap. Previous pap results were reviewed and noted to be ASCUS and + HPV. Question regarding previous results were discussed. Repeat Pap was obtained without difficulty. Discussed Celexa with patient in regards to Vasomotor Symptoms she was having, medication sent to patients pharmacy. Patient aware that nursing will check into prior authorization on Mounjaro as well. Follow Up: Patient is to return to the office in 6 months for an annual exam. Documented by Kaleigh Tristan LPN on behalf of: Raman Rivera DO documented in this encounter [facility] 02-04-2024 History of Present illness Narrative Reason [...] Allergies Allergen Reactions Flexeril [Cyclobenzaprine] Lisinopril Cough Paris [Hydrocodone-Acetaminophen] PROBLEMS Active Ambulatory Problems Diagnosis Date [...] Desires evaluation for weight loss trial with Mounjaro All other systems reviewed and are negative. [...] of: JAZMYN Phillips documented in this encounter [facility] 02-01-2024 Miscellaneous Notes Pt called office today asking to schedule a video visit with Linnette today. [employer] told pt that linnette did not have any openings and could see someone else in office. Pt stayed that she cannot wait till next week to be seen. [employer] recommended that pt go to the ER or UC if she cannot wait. Patient stated that the ER is not going to do anything for me because I have Lupus, they're going to tell me to see my Fractionation Supervisor [employer] informed pt that she could be seen in Office Next week by one of our other providers. Pt asked if there was something that was wrong with why Linnette will not see her. [employer] informed the patient that Linnette Is fully Booked today 02/01/24 and is on vacation Everyday next week. [employer] told patient that she can be seen by linnette beginning feb. Pt replied I will be half by then then Hung up on designer/writer. documented in this encounter [facility] 02-01-2024 Telephone encounter Note Pt called office today asking to schedule a video visit with Linnette today. [employer] told pt that linnette did not have any openings and could see someone else in office. Pt stayed that she cannot wait till next week to be seen. [employer] recommended that pt go to the ER or UC if she cannot wait. Patient stated that the ER is not going to do anything for me because I have Lupus, they're going to tell me to see my Fractionation Supervisor [employer] informed pt that she could be seen in Office Next week by one of our other providers. Pt asked if there was something that was wrong with why Linnette will not see her. [employer] informed the patient that Linnette Is fully Booked today 02/01/24 and is on vacation Everyday next week. [employer] told patient that she can be seen by linnette beginning of Feb. Pt replied I will be half by then then Hung up on designer/writer. [facility] 01-30-2024 History of Present illness Narrative Images from the original note were not included. [facility] [address] [facility] [address] Name: Navdeep Palma : 1975 CHIEF COMPLAINT No chief complaint on file. HISTORY OF PRESENT ILLNESS Navdeep Palma is a 48 y.o. old female who is an established patient seen by MyChart Video visit with a chief complaint of [...] time she had these filled was at [facility] [place]. She was referred to [facility] pain mgmt in [place]. States she was hospitalized and missed an appt, dismissed from service. Cardiology told her she should not be taking premarin, this was discontinued. Patient states she is no longer participating in PT due to paperwork not being faxed over. New referral placed today. ALLERGIES Allergies Allergen Reactions Paris [Hydrocodone-Acetaminophen] Itching and Headache Cyclobenzaprine Headache and [...] Low back pain Lupus (systemic lupus erythematosus) ([facility]) Migraine Murmur, cardiac Obesity Osteoarthritis Osteoarthritis Peripheral neuropathy Pneumonia Sleep apnea Tooth loose Upper back pain Past Surgical History: Procedure Laterality Date SECTION three ECTOPIC SURGERY two EKOS, Thrombolysis of PE N/A 12/07/2023 Performed by Alexandra Alejandro MD at [facility] GASTRECTOMY sleeve HERNIA REPAIR HYSTERECTOMY 2009 COMPLETE INJECTION BLOCK NERVE KNEE Left Genicular Left 08/25/2022 Performed by Albert Jones MD at [facility] INJECTION BLOCK NERVE KNEE right genicular Right 05/16/2021 Performed by Albert Jones MD at [facility] JOINT REPLACEMENT Right 02/09/2021 LYMPH NODE DISSECTION bilateral axillae x2 OOPHORECTOMY Bilateral 2008 RADIO FREQUENCY ABLATION L 4/5,5/S1 Left 08/04/2016 Performed by Albert Jones MD at [facility] RADIO FREQUENCY ABLATION L4/5,5/S1 Right 08/21/2016 Performed by Albert Jones MD at [facility] TOTAL KNEE Right 2020 TUBAL [...] Strain: Medium Risk (10/31/2023) Received from [facility] Overall Financial Resource Strain (CARDIA) Difficulty of [...] patient today using the Telehealth/video software in [employer]. This was performed en lieu of a [id number] office visit due to the current COVID-19 pandemic. JILL Bower APRN-CNP 02/02/24 2258 documented in this encounter [facility] 01-29-2024 History of Present illness Narrative Navdeep Palma Date of visit: 01/29/2024 Date of : 1975 Age: 48 y.o. 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, lumbar region Lumbosacral spondylosis without myelopathy Essential hypertension Right anterior knee pain Primary osteoarthritis of left knee BMI 50.0-59.9, adult ([facility]) Pulmonary embolism ([facility]) Anxiety with depression Fibromyalgia Gastroesophageal reflux disease Systemic lupus erythematosus ([facility]) Mild intermittent asthma without complication SOPHIE (obstructive sleep apnea) Prediabetes Status post total knee replacement using cement, left Vitamin D deficiency Vitamin B1 deficiency Right lower lobe lung mass Allergies Allergen Reactions Paris [Hydrocodone-Acetaminophen] Itching and Headache Cyclobenzaprine Headache and [...] Low back pain Lupus (systemic lupus erythematosus) ([facility]) Migraine Murmur, cardiac Obesity Osteoarthritis Osteoarthritis Peripheral neuropathy Pneumonia Sleep apnea Tooth loose Upper back pain Past Surgical History: Procedure Laterality Date SECTION three ECTOPIC SURGERY two EKOS, Thrombolysis of PE N/A 12/07/2023 Performed by Alexandra Alejandro MD at [facility] GASTRECTOMY sleeve HERNIA REPAIR HYSTERECTOMY 2009 COMPLETE INJECTION BLOCK NERVE KNEE Left Genicular Left 08/25/2022 Performed by lAbert Jones MD at [facility] INJECTION BLOCK NERVE KNEE right genicular Right 05/16/2021 Performed by Albert Jones MD at [facility] JOINT REPLACEMENT Right 02/09/2021 LYMPH NODE DISSECTION bilateral axillae x2 OOPHORECTOMY Bilateral 2009 RADIO FREQUENCY ABLATION L 4/5,5/S1 Left 08/04/2016 Performed by Albert Jones MD at [facility] RADIO FREQUENCY ABLATION L4/5,5/S1 Right 08/21/2016 Performed by Albert Jones MD at [facility] REPLACEMENT TOTAL KNEE Right 2020 TUBAL [...] Strain: Medium Risk (10/31/2023) Received from [facility] Overall Financial Resource Strain (CARDIA) Difficulty of [...] (around 07/28/2024). PCP: JILL Bower Referring Physician: Bong Phelan APRN-AMBROSIO [address], [address] [address] documented in this encounter [facility] 01-29-2024 Instructions Jordyn Moreira MD - 01/29/2024 3:15 PM EST As discussed, discontinue Premarin/estrogen documented in this encounter [facility] 01-28-2024 Miscellaneous Notes Left message for patient to remind them to bring their most current medication list with them to their appointment. documented in this encounter [facility] 01-28-2024 Telephone encounter Note Left message for patient to remind them to bring their most current medication list with them to their appointment. [facility] 01-17-2024 Miscellaneous Notes PAP mask and supplies order with supportive documentation faxed to [facility]. documented in this encounter [facility] 01-17-2024 Telephone encounter Note PAP mask and supplies order with supportive documentation faxed to [facility]. [facility] 01-10-2024 History of Present illness Narrative [facility] Progress Note Patient - Navdeep Palma Age - 48 y.[facility] 1975 [id number] ASSESSMENT Pulmonary emboli s/p EKOS on xarelto [...] hepatic steatosis. Dr. Neena Del Castillo DO. [facility] Office: [phone] documented in this encounter [facility] 01-07-2024 History of Present illness Narrative Images from the original note were not included. [facility] [address] [address] Subjective: Patient ID: Navdeep Palma is a [...] knee Pre-operative cardiovascular examination BMI 50.0-59.9, adult ([facility]) Pulmonary embolism ([facility]) Anxiety with depression Fibromyalgia Gastroesophageal reflux disease Systemic lupus erythematosus ([facility]) Mild intermittent asthma without complication SOPHIE (obstructive sleep apnea) Prediabetes Status post total knee replacement using cement, left Vitamin D deficiency Vitamin B1 deficiency Morbid obesity with body mass index of 50 or higher ([facility]) Current Outpatient Medications: acetaminophen (TYLENOL EXTRA STRENGTH) [...] Rfl: ONETOUCH DELICA PLUS LANCET 33 gauge [facility], USE DIRECTED TO check blood sugar 3 TIMES DAILY & NEEDED DIRECTED, Disp: , Rfl: ONETOUCH ULTRA TEST strip, , Disp: , Rfl: ONETOUCH ULTRA2 METER [facility], USE DIRECTED TO test blood sugar, Disp: [...] Bobbi Ortiz MD documented in this encounter [facility] 12-19-2023 History of Present illness Narrative Images from the original note were not included. [facility] [address] [facility] [address] [facility] [address] Subjective: Patient ID: The patient is here today for discharge follow up from [facility] 12/12-12/13 . Medication reconciliation was completed. HPI DATE OF ADMISSION: 12/13/2023 DATE OF DISCHARGE:12/14/2023 DISCHARGE DIAGNOSES Principal Problem: Pulmonary embolism ([facility]) Active Problems: Essential hypertension BMI 50.0-59.9, adult ([facility]) Anxiety with depression Fibromyalgia Gastroesophageal reflux disease Systemic lupus erythematosus ([facility]) Mild intermittent asthma without complication SOPHIE (obstructive sleep apnea) Prediabetes Status post total knee replacement using cement, left Vitamin D deficiency Vitamin B1 deficiency Morbid obesity with body mass index of 50 or higher ([facility]) [facility] V[facility] Pulmonology PCP: Bong Phelan APRN-AMBROSIO PROCEDURES None HOSPITAL COURSE SUMMARY Navdeep Palma is a 48 y.o. female who presents as a transfer from [facility] Emergency [facility] for vascular evaluation. Patient was recently hospitalized at [facility] from 12/06 to 12/08 for acute pulmonary embolism secondary to recent left total knee. CTA imaging during that time showed acute bilateral pulmonary emboli extending to the lower lobes with features of right ventricular strain. She underwent EKOS procedure 12/06 and was subsequently transferred back to ICU under vascular surgeon. She was subsequently transitioned to [facility] for discharge and sent home from the [...] initially she was going to drive to [facility] however felt something maybe very wrong so she stopped at [facility] Emergency [facility] instead. In the emergency department [...] infusion without bolus and subsequently transferred to [facility] for vascular evaluation. Patient was seen and [...] F/U 30 days OK to resume PT AMBROSIO Bower APRN, APRN-CNP [id number] documented in this encounter [facility] [facility] 12-17-2023 Miscellaneous Notes Hospital Discharge Follow Up Call (This is not a billable TCM) Transition of Care (*required) *Additional Questions/Concerns Requiring PCP Follow-Up: The patient has her NIELS appt with Bong Phelan tomorrow on 12/18. She wants to dicuss the on going shortness of breath that she continues to experience. It is about the same as on the day of discharge from the hospital , it has never gone away. She has it with minimal exertion, denies any chest pain. It improves with rest. She was given the phone number for [facility] as she would like to make an appt with a specialist. States that her CT shows a mass in the right medial lower lobe that has increased in size and she would like to discuss this with a pulmonary physician. This documentation is being used for Transition of Care purposes: Yes Goal: Patient will demonstrate a safe transition from hospital to home. Diagnosis on Discharge: Principal Problem: Pulmonary embolism Active Problems: Lung Mass: small increase in size since 2018 Essential hypertension Anxiety with depression Fibromyalgia Gastroesophageal reflux disease Systemic lupus erythematosus Mild intermittent asthma without complication SOPHIE (obstructive sleep apnea) Prediabetes Status post total knee replacement using cement, left Vitamin D deficiency Vitamin B1 deficiency Morbid obesity Discharge Specialty: Pulmonology *Name of Discharging Facility: [facility] Date of Facility Discharge: 12/13/2023 - 12/14/2023 (33 hours) Date of Interactive Contact and Name of Public Utilities Sales Representative: He[employer] spoke with the patient on 12/18/23 at 2:45 pm. *Medication Review Completed: Yes, the patient's medications were reviewed and the [facility] med list has been updated. CHANGE how you take: metFORMIN (GLUCOPHAGE) topiramate (TOPAMAX) STOP taking: albuterol 2.5 mg /3 mL (0.083 %) nebulizer solution (PROVENTIL,VENTOLIN) albuterol 90 mcg/actuation inhaler (PROVENTIL HFA;VENTOLIN HFA) hydrOXYzine 50 mg tablet (ATARAX) SUMAtriptan succinate 6 mg/0.5 mL needle-free injector VITAMIN C ORAL Medication Reconciliation Questions/Concerns: She is out of her Roxicodone as missed an appt with pain management doctor . *Follow Up Appointments with Providers: Primary: JILL Bower 12/19/23 10:15 am Specialty: Dr. Saqib Clemente 01/07/24 9:15 am Specialty: Dr. Jordyn Moreira 01/29/24 3:15 pm Specialty: [facility]: designer/writer gave the patient the phone number to call for a follow up appt. Review of Pending Lab/Diagnostic Tests and Plan for Completion: Studies for Histoplasma, Blastomyces antigen, coccidioidomycosis antibody, and Fungitell were sent by pulmonology, currently pending Repeat CT of the chest suggested to be repeated in 3 months Assessment and Support of Treatment Regimen Adherence and Medication Management: Per the patient: -See the note above for the PCP. Her shortness of breath improves with rest, but I don't want to have to sit around all of the time . -She is eating well and denies nausea. -Denies fever or chills. -Reports that is not having any abdominal pain, does have chronic pain in her knee and back. -Blood sugars have been at baseline. The last one she checked was today a couple of hours after lunch and states that it was 141. -Denies peripheral edema. -Has not had a BM for a couple of days and knows that she can take her stool softner if needed. -Is urinating without difficulty. -The patient's daughter is staying with her right now. -She also has a significant other and he is with her some of the time. -She has a rolling walker, no other DME needs identified. -She has transportation to medical appts. Education Provided by ACN to Support Self-Management, Independent Living and ADLs: Instructed to call PCP for new or worsening symptoms. Instructed to call 911 for Chest Pain, Severe Shortness of Breath or Symptoms of CVA. Patient given the Contact information for the Title I Director Navigator in PCP practice, Sarah Ventura, and explained that this RN will be available for 30 days post hospitalization. Communication with Home Health Agencies and Other Services Utilized/Needed by the Patient: She had been going for PT following her Total knee surgery in November and was going to an out patient place called PT services in [place]. She has not gone back for more PT as needs a release from her PCP to begin again. Contact Type: Direct contact - Phone call with patient - general Unable to reach for follow up. Contact Type: Direct contact - Phone call with patient - general Unable to reach patient or leave message. Contact Type: General Care Coordination Activity Spoke with patient briefly on 01/13 where her only concern at that time was getting paperwork completed. MA working on completing this with provider. Will discharge from care navigation services as she has reached the end of the transitional care period and did not have additional needs requiring follow up. She can be referred back as appropriate for identified needs or concerns. documented in this encounter [facility] 12-17-2023 Telephone encounter Note Hospital Discharge Follow Up Call (This is not a billable TCM) Transition of Care (*required) *Additional Questions/Concerns Requiring PCP Follow-Up: The patient has her [facility] appt with Bong Phelan tomorrow on 12/18. She wants to dicuss the on going shortness of breath that she continues to experience. It is about the same as on the day of discharge from the hospital , it has never gone away. She has it with minimal exertion, denies any chest pain. It improves with rest. She was given the phone number for [facility] as she would like to make an appt with a specialist. States that her CT shows a mass in the right medial lower lobe that has increased in size and she would like to discuss this with a pulmonary physician. This documentation is being used for Transition of Care purposes: Yes Goal: Patient will demonstrate a safe transition from hospital to home. Diagnosis on Discharge: Principal Problem: Pulmonary embolism Active Problems: Lung Mass: small increase in size since 2018 Essential hypertension Anxiety with depression Fibromyalgia Gastroesophageal reflux disease Systemic lupus erythematosus Mild intermittent asthma without complication SOPHIE (obstructive sleep apnea) Prediabetes Status post total knee replacement using cement, left Vitamin D deficiency Vitamin B1 deficiency Morbid obesity Discharge Specialty: Pulmonology *Name of Discharging Facility: [facility] Date of Facility Discharge: 12/13/2023 - 12/14/2023 (33 hours) Date of Interactive Contact and Name of Public Utilities Sales Representative: Heater [employer]per [employer] spoke with the patient on 12/18/23 at 2:45 pm. *Medication Review Completed: Yes, the patient's medications were reviewed and the [facility] med list has been updated. CHANGE how you take: metFORMIN (GLUCOPHAGE) topiramate (TOPAMAX) STOP taking: albuterol 2.5 mg /3 mL (0.083 %) nebulizer solution (PROVENTIL,VENTOLIN) albuterol 90 mcg/actuation inhaler (PROVENTIL HFA;VENTOLIN HFA) hydrOXYzine 50 mg tablet (ATARAX) SUMAtriptan succinate 6 mg/0.5 mL needle-free injector VITAMIN C ORAL Medication Reconciliation Questions/Concerns: She is out of her Roxicodone as missed an appt with pain management doctor . *Follow Up Appointments with Providers: Primary: JILL Bower 12/19/23 10:15 am Specialty: Dr. Saqib Clemente 01/07/24 9:15 am Specialty: Dr. Jordyn Moreira 01/29/24 3:15 pm Specialty: [facility]: designer/writer gave the patient the phone number to call for a follow up appt. Review of Pending Lab/Diagnostic Tests and Plan for Completion: Studies for Histoplasma, Blastomyces antigen, coccidioidomycosis antibody, and Fungitell were sent by pulmonology, currently pending Repeat CT of the chest suggested to be repeated in 3 months Assessment and Support of Treatment Regimen Adherence and Medication Management: Per the patient: -See the note above for the PCP. Her shortness of breath improves with rest, but I don't want to have to sit around all of the time . -She is eating well and denies nausea. -Denies fever or chills. -Reports that is not having any abdominal pain, does have chronic pain in her knee and back. -Blood sugars have been at baseline. The last one she checked was today a couple of hours after lunch and states that it was 141. -Denies peripheral edema. -Has not had a BM for a couple of days and knows that she can take her stool softner if needed. -Is urinating without difficulty. -The patient's daughter is staying with her right now. -She also has a significant other and he is with her some of the time. -She has a rolling walker, no other DME needs identified. -She has transportation to medical appts. Education Provided by ACN to Support Self-Management, Independent Living and ADLs: Instructed to call PCP for new or worsening symptoms. Instructed to call 911 for Chest Pain, Severe Shortness of Breath or Symptoms of CVA. Patient given the Contact information for the Title I Director Navigator in PCP practice, Sarah Ventura, and explained that this RN will be available for 30 days post hospitalization. Communication with Home Health Agencies and Other Services Utilized/Needed by the Patient: She had been going for PT following her Total knee surgery in November and was going to an out patient place called PT services in [place]. She has not gone back for more PT as needs a release from her PCP to begin again. [facility] 12-17-2023 Telephone encounter Note Contact Type: Direct contact - Phone call with patient - general Unable to reach for follow up. [facility] Work Phone: 12-17-2023 Telephone encounter Note Contact Type: Direct contact - Phone call with patient - general Unable to reach patient or leave message. [facility] 12-17-2023 Telephone encounter Note Contact Type: General Care Coordination Activity Spoke with patient briefly on 01/13 where her only concern at that time was getting paperwork completed. MA working on completing this with provider. Will discharge from care navigation services as she has reached the end of the transitional care period and did not have additional needs requiring follow up. She can be referred back as appropriate for identified needs or concerns. [facility] 12-14-2023 Miscellaneous Notes Contract: [address] [facility] [phone] Re medication Left Message on Dr Drew cell phone to call after hours Called Nurse back and to verify and she was going to call back and cancel call and reach out to patient regular Md instead documented in this encounter [facility] 12-14-2023 Telephone encounter Note Contract: [address] [facility] [phone] Re medication [facility] 12-14-2023 Telephone encounter Note Left Message on Dr Drew cell phone to call after hours [facility] 12-14-2023 Telephone encounter Note Called Nurse back and to verify and she was going to call back and cancel call and reach out to patient regular Md instead [facility] 12-13-2023 Miscellaneous Notes Images from the original note were not included. Contact Type: Direct contact - Phone call with patient - general Patient called expressing concerns for her location within [facility] stating she feels she is not getting as good of care as when she was on the 8th floor. Encouraged she discuss her concerns with providers and nursing staff. Heater Helper [employer]ge did forward patient's concerns to Acute Tankage SupervisorRoselia arenas RN via indico Chat: documented in this encounter [facility] 12-13-2023 Telephone encounter Note Images from the original note were not included. Contact Type: Direct contact - Phone call with patient - general Patient called expressing concerns for her location within [facility] stating she feels she is not getting as good of care as when she was on the 8th floor. Encouraged she discuss her concerns with providers and nursing staff. Heater [employer]per [employer] did forward patient's concerns to Acute Tankage SupervisorRoselia Chen RN via indico Chat: [facility] Work Phone: 12-10-2023 Miscellaneous Notes Hospital Discharge Follow Up Call (This is not a billable TCM) Transition of Care (*required) *Additional Questions/Concerns Requiring PCP Follow-Up: Patient would like rivet machine operator to call her to schedule PCP [...] Discharge Specialty: Vascular *Name of Discharging Facility: [facility] Date of Facility Discharge: 12.07.23 - 12.09.23 Date of Interactive Contact and Name of Public Utilities Sales Representative: 12.10.23 @ 5718 - Left message 12.11.23 @ 9754 - Spoke with patient *Medication Review Completed: No Declines need. Confirms she has medication and denies questions / concerns. START taking: XARELTO DVT-PE TREAT 30D START (rivaroxaban) STOP taking: aspirin 325 mg tablet Medication Reconciliation Questions/Concerns: None *Follow Up Appointments with Providers: Primary: Bong Phelan APRN-ANCHOR TACK PULLER TBD Specialty: Gina Bourgeois CNP - Pain MGMT 12.11.23 @ 7773 - Patient unable to attend this appointment because she was supposed to have testing done prior that she wasn't able to do due to being in the hospital. Specialty: Dr. Ortiz - Vasc Surg - 01.07.24 @ 4640 Specialty: Review of Pending Lab/Diagnostic Tests and [...] TCM services available and advised patient that care trainer navigator will be available to provide assistance for a minimum of 30 days post discharge. Patient to call ACN Sarah / PCP for any new, worsening, or returning symptoms, questions ,or concerns. Call 911 for any severe symptoms Communication with Home Health Agencies and Other Services Utilized/Needed by the Patient: NA documented in this encounter [facility] 12-10-2023 Telephone encounter Note Hospital Discharge Follow Up Call (This is not a billable TCM) Transition of Care (*required) *Additional Questions/Concerns Requiring PCP Follow-Up: Patient would like rivet machine operator to call her to schedule PCP [...] Discharge Specialty: Vascular *Name of Discharging Facility: [facility] Date of Facility Discharge: 12.07.23 - 12.09.23 Date of Interactive Contact and Name of Public Utilities Sales Representative: 12.10.23 @ 1620 - Left message 12.11.23 @ 9938 - Spoke with patient *Medication Review Completed: No Declines need. Confirms she has medication and denies questions / concerns. START taking: XARELTO DVT-PE TREAT 30D START (rivaroxaban) STOP taking: aspirin 325 mg tablet Medication Reconciliation Questions/Concerns: None *Follow Up Appointments with Providers: Primary: Bong Phelan APRN-ANCHOR TACK PULLER TBD Specialty: Gina Bourgeois CNP - Pain MGMT 12.11.23 @ 4815 - Patient unable to attend this appointment because she was supposed to have testing done prior that she wasn't able to do due to being in the hospital. Specialty: Dr. Ortiz - Vasc Surg - 01.07.24 @ 7878 Specialty: Review of Pending Lab/Diagnostic Tests and [...] TCM services available and advised patient that care trainer navigator will be available to provide assistance for a minimum of 30 days post discharge. Patient to call ACN Sarah / PCP for any new, worsening, or returning symptoms, questions ,or concerns. Call 911 for any severe symptoms Communication with Home Health Agencies and Other Services Utilized/Needed by the Patient: NA [facility] 12-07-2023 Miscellaneous Notes Contract: 91 [facility] Omi Tracey, pt arrival to floor; rm 225 Numeric page sent documented in this encounter [facility] 12-07-2023 Telephone encounter Note Contract: 91 [facility] Omi Tracey, pt arrival to floor; rm 225 [facility] 12-07-2023 Telephone encounter Note Numeric page sent [facility] 11-19-2023 Note Orthopaedic Surgery Subjective Post-op of the Left Knee (TKA) 11/19/23 Domingo Palma is a 48 y.o. female presenting for post-op of the left total knee arthroplasty using [place] implants done 31 October 2023. Patient now almost 3 weeks following her surgery and has been ambulating full weightbearing. She is at the [facility] at this point in time until today [...] Left knee pain Lupus (systemic lupus erythematosus) ([facility]) Migraine Obesity BMI 54.55 Osteoarthritis Sleep apnea [...] from me. Dr. Lyssa Park MD MRCSEd Clerical Car Checker orthopedic surgery Adult Reconstruction and Trauma [facility]. [facility] 11-16-2023 Discharge summary Note Date/Time November 16, 2023 9:[address] [place] [address] [place] [address] Discharge Summary Signed Patient: Navdeep Palma MR#: [id number] : 1975 Acct:[id number] Age/Sex: 48 / F Adm Date: 4 Loc: 5T Room: 4Z4496-[address]: Jonny Bentley MD Copies to: MD Jordyn Esqueda, PROFESSOR OF GERMAN, ANCHOR TACK PULLER~ Providers Date of Discharge: 11/16/23 Discharging Provider: [...] reports severe osteoarthritis of the joint with gjhd-[id number] resultingin significant discomfort and difficulty with mobility she failed multimodality conservative treatment. Presented to [facility] for an elective knee replacement on 10/30. [...] years to have been discontinued while at [facility]. Per the patient her most recent A1c [...] PCP. You will have Outpatient [facility] ( ). You have been given prescriptions [...] 500 mg capsule 500 mg PO DAILY ohlblifjnn-qhmyefhwszfyb-knld [Fioricet] 50-300-40 mg capsule 1 cap PO [...] Phelan MD [Other] - 11/20/23 11:00 am [facility] WITH DR CYNTHIA WILCOX, [facility]) Lyssa Park MD [Referring] - 11/19/23 1:15 pm (Orthopedic Surgeon- appointment is at [facility] [place] [address]. )) Jordyn Barrera APRN, ASSISTANT STATISTICIAN-C [Primary Care Provider] - 11/19/23 10:00 am [...] Glucose 92 Documented By: Jonny Bentley MD 09/06/ 24 0923 Signed By: <Electronically signed by Jonny Bentley MD> 11/16/23 150[address] [facility] Work Phone: 1(684) 281-694709-05-2024 Progress note Author Jonny Bentley [facility] November 15, 2023 1:59pm Note Date/Time November 15, 2023 1:59pm [facility] ENTER [address] [place] [address] Physiatry(Rehab) Progress Note Signed Patient: Navdeep Palma MR#: [id number] : 1975 Acct:[id number] Age/Sex: 48 / F Adm Date: 4 Loc: Room: [address] [place] [address] Type: ADM IN Attending Dr: Jonny Bentley MD Copies to: ~ Date of Service: 11/15/2023 Subjective Subjective Narrative: Ms. Palma is a 48 year old female with multiple comorbidities including systemiclupus erythematosus, morbid obesity, HTN, HLD, prediabetes who presents to acuteinpatient rehabilitation unit with functional impairments in the setting of lefttotal knee arthroplasty. Patient reports severe osteoarthritis of the joint with uzmg-mn-gkna resultingin significant discomfort and difficulty with mobility she failed multimodality conservative treatment. Presented to [facility] for an elective knee replacement on 10/30. [...] years to have been discontinued while at [facility]. Per the patient her most recent A1c [...] Allergies Allergies and Active Meds: Allergies acetaminophen [[place]] Allergy (Unknown, Verified 10/31/22 10:45) Itchy cyclobenzaprine [Flexeril] Allergy (Unknown, Verified 10/31/22 10:45) Itchy hydrocodone [[place]] Allergy (Unknown, Verified 10/31/22 10:45) Itchy hydrochlorothiazide [...] mg 11/06/23 17:07 Bisacodyl 10 Mg Supp.Rect ID 11/05/24 17:06 DAILY PRN Constipation Diclofenac Sodium [...] 17:07 Docusate Enema 283 Mg/5 Ml Enema ID 11/05/24 17:06 DAILY PRN Constipation Duloxetine HCl [...] equipment to enhance the patient's a functional baptism Ensure adequate nutrition and hydration Sleep Discharge planning. Patient was personally seen by me, Dr. Bentley, on the day of encounter, reviewed the history and the relevant portions of the chart, including current orders, allied health and mobile sales consultant notes, labs/imaging and performed humphries elements of exam and I formulated the plan of care and facilitated the medical decision making. I completed a substantive portion of this encounter, the medical decision making portion of this note in its entirety, including Allied health note review, nursing note review, mobile sales consultant note review, discussion with nursing and case management, and more than 50% of my time was spent on counseling and coordination of care, time spent 25 minutes Documented By: Jonny Bentley MD [id number] Signed By: <Electronically signed by Jonny Bentley MD> 11/15/23 8845 [facility] Work Phone: 1(785) 312-122709-04-2024 Progress note Author Jonny Bnetley [facility] November 14, 2023 2:15pm Note Date/Time November 14, 2023 1:29pm [facility] ENTER [address] [place] [address] Physiatry(Rehab) Progress Note Signed with Addenda Patient: Navdeep Palma MR#: [id number] : 1975 Acct:[id number] Age/Sex: 48 / F Adm Date: 4 Loc: Room: [address] [place] [address] Type: ADM IN Attending Dr: Jonny Bentley [...] reports severe osteoarthritis of the joint with mbai-us-ahaw resultingin significant discomfort and difficulty with mobility she failed multimodality conservative treatment. Presented to [facility] for an elective knee replacement on 10/30. [...] years to have been discontinued while at [facility]. Per the patient her most recent A1c [...] Appearance Clear Urine pH 6.0 Ur Specific [place] 1.023 Urine Protein Negative Urine Glucose (UA) Normal Urine Ketones Negative Urine Occult Blood Negative Urine Nitrite Negative Urine Bilirubin Negative Urine Urobilinogen 2 H Ur Leukocyte Esterase Negative Medications and Allergies Allergies and Active Meds: Allergies acetaminophen [Paris] Allergy (Unknown, Verified 10/31/22 10:45) Itchy cyclobenzaprine [Flexeril] Allergy (Unknown, Verified 10/31/22 10:45) Itchy hydrocodone [[place]] Allergy (Unknown, Verified 10/31/22 10:45) Itchy hydrochlorothiazide [...] mg 11/06/23 17:07 Bisacodyl 10 Mg Supp.Rect ID 11/05/24 17:06 DAILY PRN Constipation Diclofenac Sodium [...] 17:07 Docusate Enema 283 Mg/5 Ml Enema ID 11/05/24 17:06 DAILY PRN Constipation Duloxetine HCl [...] 11/13/23 22:35 Losartan 25 Mg Tablet PO 08/27/25 22:29 25 mg HS YASMANY Administration Magnesium [...] equipment to enhance the patient's a functional baptism Ensure adequate nutrition and hydration Sleep Discharge planning. Patient was personally seen by me, Dr. Bentley, on the day of encounter, reviewed the history and the relevant portions of the chart, including current orders, allied health and mobile sales consultant notes, labs/imaging and performed humphries elements of exam and I formulated the plan of care and facilitated the medical decision making. I completed a substantive portion of this encounter, the medical decision making portion of this note in its entirety, including Allied health note review, nursing note review, mobile sales consultant note review, discussion with nursing and case management, and more than 50% of my time was spent on counseling and coordination of care, time spent 30 minutes Documented By: Jonny Bentley MD [id number] Signed By: <Electronically signed by Jonny Bentley MD> 11/14/23 1329 [facility] Work Phone: 1(818) 797-131109-03-2024 Progress note Author Jonny Bentley [facility] November 13, 2023 2:21pm Note Date/Time November 13, 2023 2:21pm [facility] ENTER [address] [place] [address] Physiatry(Rehab) Progress Note Signed Patient: Navdeep Palma MR#: [id number] : 1975 Acct:[id number] Age/Sex: 48 / F Adm Date: 4 Loc: Room: [address] [place] [address] Type: ADM IN Attending Dr: Jonny Bentley MD Copies to: ~ Date of Service: 11/13/2023 Subjective Subjective Narrative: Ms. Palma is a 48 year old female with multiple comorbidities including systemiclupus erythematosus, morbid obesity, HTN, HLD, prediabetes who presents to acuteinpatient rehabilitation unit with functional impairments in the setting of lefttotal knee arthroplasty. Patient reports severe osteoarthritis of the joint with ajbo-ob-pfww resultingin significant discomfort and difficulty with mobility she failed multimodality conservative treatment. Presented to [facility] for an elective knee replacement on 10/30. [...] years to have been discontinued while at [facility]. Per the patient her most recent A1c [...] during team meeting. Plan for DC is 11/15 which the patientis agreeable to. Review of [...] % (Auto) 59.2 Lymph % (Auto) 32.1 Hall % (Auto) 6.2 Eos % (Auto) 1.2 Baso % (Auto) 1.3 Nucleat RBC Rel Count 0.4 Neut # (Auto) 3.7 Lymph # (Auto) 2.0 Hall # (Auto) 0.4 Eos # (Auto) 0.1 Baso # (Auto) 0.1 PHA Creatinine Clear 162.78 Sodium 142 Potassium 3.4 L Chloride 105 Carbon Dioxide 27.9 Anion Gap 12.5 BUN 7 Creatinine 0.65 Est GFR (CKD-EPI) > 60.0 Glucose 94 POC Glucose 103 Calcium 8.3 L Medications and Allergies Allergies and Active Meds: Allergies acetaminophen [Paris] Allergy (Unknown, Verified 10/31/22 10:45) Itchy cyclobenzaprine [Flexeril] Allergy (Unknown, Verified 10/31/22 10:45) Itchy hydrocodone [Paris] Allergy (Unknown, Verified 10/31/22 10:45) Itchy hydrochlorothiazide [...] mg 11/06/23 17:07 Bisacodyl 10 Mg Supp.Rect ID 11/05/24 17:06 DAILY PRN Constipation Diclofenac Sodium [...] 17:07 Docusate Enema 283 Mg/5 Ml Enema ID 11/05/24 17:06 DAILY PRN Constipation Duloxetine HCl [...] equipment to enhance the patient's a functional baptism Ensure adequate nutrition and hydration Sleep Discharge planning. Patient was personally seen by me, Dr. Bentley, on the day of encounter, reviewed the history and the relevant portions of the chart, including current orders, allied health and mobile sales consultant notes, labs/imaging and performed humphries elements of exam and I formulated the plan of care and facilitated the medical decision making. I completed a substantive portion of this encounter, the medical decision making portion of this note in its entirety, including Allied health note review, nursing note review, mobile sales consultant note review, discussion with nursing and case management, and more than 50% of my time was spent on counseling and coordination of care, time spent 30 minutes Case reviewed at weekly team conference, discussed progress and goals of care, barriers/problems to date and discharge planning. Documented By: Jonny Bentley MD [id number] Signed By: <Electronically signed by Jonny Bentley MD> 11/13/23 1427 [facility] Work Phone: 1(345) 807-558509-03-2024 Progress note Author Jonny Bentley [facility] November 13, 2023 9:20am Note Date/Time November 12, 2023 11:40am [facility] [address] [place] [address] Physiatry(Rehab) Progress Note Signed Patient: Navdeep Palma MR#: [id number] : 1975 Acct:[id number] Age/Sex: 48 / F Adm Date: 4 Loc: Room: [address] [place] [address] Type: ADM IN Attending Dr: Jonny Bentley MD Copies to: ~ Date of Service: 11/12/2023 Subjective Subjective Narrative: Ms. Palma is a 48 year old female with multiple comorbidities including systemiclupus erythematosus, morbid obesity, HTN, HLD, prediabetes who presents to acuteinpatient rehabilitation unit with functional impairments in the setting of lefttotal knee arthroplasty. Patient reports severe osteoarthritis of the joint with nkmo-qn-ijrh resultingin significant discomfort and difficulty with mobility she failed multimodality conservative treatment. Presented to [facility] for an elective knee replacement on 10/30. [...] years to have been discontinued while at [facility]. Per the patient her most recent A1c [...] Allergies Allergies and Active Meds: Allergies acetaminophen [Paris] Allergy (Unknown, Verified 10/31/22 10:45) Itchy cyclobenzaprine [Flexeril] Allergy (Unknown, Verified 10/31/22 10:45) Itchy hydrocodone [Paris] Allergy (Unknown, Verified 10/31/22 10:45) Itchy hydrochlorothiazide [...] mg 11/06/23 17:07 Bisacodyl 10 Mg Supp.Rect ID 11/05/24 17:06 DAILY PRN Constipation Docusate Sodium 100 mg 11/06/23 21:00 11/12/23 09:34 Docusate 100 Mg Capsule PO 11/05/24 20:59 Not Given BID YAS[place]Y Docusate Sodium 100 mg 11/06/23 17:07 Docusate 100 Mg Capsule PO 11/05/24 17:06 BID PRN Constipation Docusate Sodium 283 mg 11/06/23 17:07 Docusate Enema 283 Mg/5 Ml Enema ID 11/05/24 17:06 DAILY PRN Constipation Duloxetine HCl [...] equipment to enhance the patient's a functional baptism Ensure adequate nutrition and hydration Sleep Discharge planning. I spent 20 minutes for services, including eioc-nl-fsar encounter with the patient, discussion of the case, plan of care, and exam; and apnnhim-wz-ondg activities, such as reviewing pertinent mobile sales consultant documentation, recent therapy notes, laboratory and radiology studies, and discussion of case with care team including physician, nursing, upper caser, and therapists. More than 50 % of time was spent on patient/family counseling or coordination of care. <Statement entered by Jonny Bentley MD - 11/13/23 09:19> This documentation has been reviewed and approved. I reviewed the history and the relevant portions of the chart, including current orders, allied health and mobile sales consultant notes, labs/imaging and plan of care as above. Documented By: Mone Brennan APRN 11/12/23 1 139 Signed By: <Electronically signed by YULISA Brennan> 11/12/23 1145 <Electronically signed by Jonny Bentley MD> 11/13/23 0920 [facility] Work Phone: 1(628) 855-431908-31-2024 Progress note Author Jonny Bentley [facility] November 10, 2023 5:34pm Note Date/Time November 09, 2023 12 :40pm [facility] [address] [place] [address] Physiatry(Rehab) Progress Note Signed Patient: Navdeep Palma MR#: [id number] : 1975 Acct:[id number] Age/Sex: 48 / F Adm Date: 4 Loc: Room: 7X5404-9 Type: ADM IN Attending Dr: Jonny Bentley MD Copies to: ~ Date of Service: 11/09/2023 Subjective Subjective Narrative: Ms. Palma is a 48 year old female with multiple comorbidities including systemiclupus erythematosus, morbid obesity, HTN, HLD, prediabetes who presents to acuteinpatient rehabilitation unit with functional impairments in the setting of lefttotal knee arthroplasty. Patient reports severe osteoarthritis of the joint with xumk-wf-mzhp resultingin significant discomfort and difficulty with mobility she failed multimodality conservative treatment. Presented to [facility] for an elective knee replacement on 10/30. [...] years to have been discontinued while at [facility]. Per the patient her most recent A1c [...] patient's symptoms. May need to contact patient's [place] for recommendations if her symptoms worsen. A1c and fasting glucose levels reviewed. I will reinitiate patient on [id number] mg twice daily. She is aware and [...] Allergies Allergies and Active Meds: Allergies acetaminophen [Paris] Allergy (Unknown, Verified 10/31/22 10:45) Itchy cyclobenzaprine [Flexeril] Allergy (Unknown, Verified 10/31/22 10:45) Itchy hydrocodone [Paris] Allergy (Unknown, Verified 10/31/22 10:45) Itchy hydrochlorothiazide [...] [place]AS[place] Administration Baclofen 10 mg 11/06/23 17:05 11/08/23 20:37 Baclofen 10 Mg Tablet PO 11/05/24 17:04 10 mg DAILY PRN Administration muscle spasm Bisacodyl 10 mg 11/06/23 17:07 Bisacodyl 10 Mg Supp.Rect ID 11/05/24 17:06 DAILY PRN Constipation Docusate Sodium 100 mg 11/06/23 21:00 11/09/23 09:07 Docusate 100 Mg Capsule PO 11/05/24 20:59 100 mg BID YAS[place]Y Administration Docusate Sodium 100 mg 11/06/23 17:07 Docusate 100 Mg Capsule PO 11/05/24 17:06 BID PRN Constipation Docusate Sodium 283 mg 11/06/23 17:07 Docusate Enema 283 Mg/5 Ml Enema ID 11/05/24 17:06 DAILY PRN Constipation Duloxetine HCl [...] equipment to enhance the patient's a functional baptism Ensure adequate nutrition and hydration Sleep Discharge planning. I spent 23 minutes for services, including ylxq-op-ldtf encounter with the patient, discussion of the case, plan of care, and exam; and dszehkt-xw-gdap activities, such as reviewing pertinent mobile sales consultant documentation, recent therapy notes, laboratory and radiology studies, and discussion of case with care team including physician, nursing, upper caser, and therapists. More than 50 % of time was spent on patient/family counseling or coordination of care. <Statement entered by Jonny Bentley MD - 11/10/23 17:34> This documentation has been reviewed and approved. I reviewed the history and the relevant portions of the chart, including current orders, allied health and mobile sales consultant notes, labs/imaging and plan of care as above. Documented By: Mone Brennan APRN 11/09/23 1 231 Signed By: <Electronically signed by YULISA Brennan> 11/09/23 1240 <Electronically signed by Jonny Bentley MD> 11/10/23 3267 [facility] Work Phone: 1(864) 865-805508-29-2024 Progress note Author Jonny Bentley [facility] November 08, 2023 12:10pm Note Date/Time November 08, 2023 12 :08pm [facility] [address] [place] [address] Physiatry(Rehab) Progress Note Signed Patient: Navdeep Palma MR#: [id number] : 1975 Acct:[id number] Age/Sex: 48 / F Adm Date: 4 Loc: 5T Room: 4A4124-2 Type: ADM IN Attending Dr: Jonny Bentley MD Copies to: ~ Date of Service: 11/08/2023 Subjective Subjective Narrative: Ms. Palma is a 48 year old female with multiple comorbidities including systemiclupus erythematosus, morbid obesity, HTN, HLD, prediabetes who presents to acuteinpatient rehabilitation unit with functional impairments in the setting of lefttotal knee arthroplasty. Patient reports severe osteoarthritis of the joint with mnff-ft-keit resultingin significant discomfort and difficulty with mobility she failed multimodality conservative treatment. Presented to [facility] for an elective knee replacement on 10/30. [...] years to have been discontinued while at [facility]. Per the patient her most recent A1c [...] Allergies Allergies and Active Meds: Allergies acetaminophen [Paris] Allergy (Unknown, Verified 10/31/22 10:45) Itchy cyclobenzaprine [Flexeril] Allergy (Unknown, Verified 10/31/22 10:45) Itchy hydrocodone [Paris] Allergy (Unknown, Verified 10/31/22 10:45) Itchy hydrochlorothiazide [...] mg 11/06/23 17:07 Bisacodyl 10 Mg Supp.Rect ID 11/05/24 17:06 DAILY PRN Constipation Docusate Sodium 100 mg 11/06/23 21:00 11/08/23 07:56 Docusate 100 Mg Capsule PO 11/05/24 20:59 100 mg BID YAS[place]Y Administration Docusate Sodium 100 mg 11/06/23 17:07 Docusate 100 Mg Capsule PO 11/05/24 17:06 BID PRN Constipation Docusate Sodium 283 mg 11/06/23 17:07 Docusate Enema 283 Mg/5 Ml Enema ID 11/05/24 17:06 DAILY PRN Constipation Duloxetine HCl [...] equipment to enhance the patient's a functional baptism Ensure adequate nutrition and hydration Sleep Discharge planning. Patient was personally seen by me, Dr. Bentley, on the day of encounter, reviewed the history and the relevant portions of the chart, including current orders, allied health and mobile sales consultant notes, labs/imaging and performed humphries elements of exam and I formulated the plan of care and facilitated the medical decision making. I completed a substantive portion of this encounter, the medical decision making portion of this note in its entirety, including Allied health note review, nursing note review, mobile sales consultant note review, discussion with nursing and case management, and more than 50% of my time was spent on counseling and coordination of care, time spent 25 minutes Documented By: Jonny Bentley MD [id number] Signed By: <Electronically signed by Jonny Bentley MD> 11/08/23 1210 [facility] Work Phone: 1(784) 378-628208-28-2024 History and physical note Author Jonny Bentley [facility] November 07, 2023 2:37pm Note Date/Time November 07, 2023 11 :54am [facility] [address] [place] [address] Physiatry (Rehab) H&P Signed Patient: Navdeep Palma MR#: [id number] : 1975 Acct:[id number] Age/Sex: 48 / F Adm Date: 4 Loc: Room: [address] [place] [address] Type: ADM IN Attending Dr: Jonny Bentley MD Copies to: MD Mone Esqueda APRN Laura Anglim, APRN, ANCHOR TACK PULLER~ Date of Service: 11/07/2023 HPI The patient was seen and examined on: 11/07/23 History of Present Illness: Ms. Palma is a 48 year old female with multiple comorbidities including systemiclupus erythematosus, morbid obesity, HTN, HLD, prediabetes who presents to acuteinpatient rehabilitation unit with functional impairments in the setting of lefttotal knee arthroplasty. Patient reports severe osteoarthritis of the joint with pdll-qf-qyeo resultingin significant discomfort and difficulty with mobility she failed multimodality conservative treatment. Presented to [facility] for an elective knee replacement on 10/30. [...] years to have been discontinued while at [facility]. Per the patient her most recent A1c level was 6.4. I will check her A1c tomorrow a.m.; start daily blood glucose checks, she is also on prednisone at this time. Will adjust the regimen based on lab results. [facility] Medical History (Updated 11/07/23 @ 12:34 by Mone Brennan APRN) Sleep apnea Granulomatosis Arthritis Fibromyalgia Lupus Hypertension Neuropathy Problem List clean-up per request of [facility]. [facility] Scoliosis Problem List clean-up per request of Phys. [facility] Asthma Problem List clean-up per request of Phys. [facility] Migraines Problem List clean-up per request of Phys. [facility] SLE (systemic lupus erythematosus) Problem List clean-up per request of Phys. [facility] Surgical History (Updated 02/21/23 @ 14:04 by [facility] History of lymph node biopsy Left [id number] Problem List clean-up per request of Phys. [facility] History of bariatric surgery Gastric sleeve 2016 Problem List clean-up per request of Phys. [facility] History of tubal ligation Tubes removed Problem List clean-up per request of Phys. [facility] S/P ALEKSANDAR (total abdominal hysterectomy) Problem List clean-up per request of Phys. [facility] Family History (Updated 02/28/19 @ 16:46 by Gregor Huang RN) Brother Pulmonary disease Brother Neurological abnormality Mother Pancreatic cancer Lung cancer Mother Cancer Legacy FamHx Problem: Diagnosed with Cancer Social History Smoking Status: Never smoker Substance Use Type: None Meds Medications and Allergies Allergies acetaminophen [Paris] Allergy (Unknown, Verified 10/31/22 10:45) Itchy cyclobenzaprine [Flexeril] Allergy (Unknown, Verified 10/31/22 10:45) Itchy hydrocodone [Paris] Allergy (Unknown, Verified 10/31/22 10:45) Itchy hydrochlorothiazide [...] PRN muscle spasm 11/06/23 [History Confirmed 11/06/23] otylirjuqn-zqwkqvanqdetv-fviitnsv 50 mg-300 mg-40 mg capsule (Fioricet) 1 [...] 10 Mg Tablet) 10 mg PO DAILY [facility] Stop: 11/06/24 08:59 Last Admin: 11/07/23 09:19 Dose: 10 mg Ascorbic Acid (Ascorbic Acid 500 Mg Tablet) 500 mg PO DAILY [place] Stop: 11/06/24 08:59 Last Admin: 11/07/23 09:19 Dose: 500 mg Aspirin (Aspirin 325 Mg Tablet) 325 mg PO BID [facility] Stop: 11/05/24 20:59 Last Admin: 11/07/23 09:19 Dose: 325 mg Azathioprine (Azathioprine 50 Mg Tablet) 100 mg PO BID [facility] Stop: 11/05/24 22:59 Last Admin: 11/07/23 10:18 Dose: 100 mg Baclofen (Baclofen 10 Mg Tablet) 10 mg PO DAILY PRN PRN Reason: muscle spasm Stop: 11/05/24 17:04 Last Admin: 11/06/23 22:06 Dose: 10 mg Bisacodyl (Bisacodyl 10 Mg Supp.Rect) 10 mg ID DAILY PRN PRN Reason: Constipation Stop: 11/05/24 17:06 Docusate Sodium (Docusate 100 Mg Capsule) 100 mg PO BID [facility] Stop: 11/05/24 20:59 Last Admin: 11/07/23 09:19 Dose: 100 mg Docusate Sodium (Docusate 100 Mg Capsule) 100 mg PO BID PRN PRN Reason: Constipation Stop: 11/05/24 17:06 Docusate Sodium (Docusate Enema 283 Mg/5 Ml Enema) 283 mg ID DAILY PRN PRN Reason: Constipation Stop: 11/05/24 17:06 Duloxetine HCl (Duloxetine 60 Mg Capsule.Dr) 60 mg PO [facility] Stop: 11/05/24 22:29 Last Admin: 11/06/23 23:17 Dose: 60 mg Hydroxyzine Pamoate (Hydroxyzine Pamoate 50 Mg Capsule) 50 mg PO TID [facility] Stop: 11/05/24 21:59 Last Admin: 11/07/23 09:19 Dose: 50 mg Lactulose (Lactulose 20 Gm/30 Ml Udc) 30 gm PO DAILY PRN PRN Reason: Constipation Stop: 11/05/24 17:06 Losartan Potassium (Losartan 25 Mg Tablet) 25 mg PO [facility] Stop: 11/05/24 22:29 Last Admin: 11/06/23 23:17 Dose: 25 mg Magnesium Oxide (Magnesium Oxide 400 Mg Tablet) 400 mg PO DAILY [facility] Stop: 11/06/24 08:59 Last Admin: 11/07/23 09:19 Dose: 400 mg Montelukast Sodium (Montelukast 10 Mg Tablet) 10 mg PO DAILY [facility] Stop: 11/06/24 08:59 Last Admin: 11/07/23 09:19 [...] 40 Mg Tablet.Dr) 40 mg PO DAILY [facility] Stop: 11/06/24 08:59 Last Admin: 11/07/23 09:19 Dose: 40 mg Prednisone (Prednisone 20 Mg Tablet) 20 mg PO DAILY [facility] Stop: 11/06/24 08:59 Last Admin: 11/07/23 09:19 Dose: 20 mg Sennosides (Sennosides 8.6 Mg Tablet) 2 tab PO DAILY@12 PRN PRN Reason: If no BM in 2 days Stop: 11/06/24 11:59 Sodium Chloride (Sodium Chloride 0.9 % 10 Ml Syringe) 0 ml IV-PUSH PRN PRN PRN Reason: Flush Stop: 11/05/24 17:06 Topiramate (Topiramate 50 Mg Tablet) 50 mg PO HS [facility] Stop: 11/05/24 22:29 Last Admin: 11/06/23 23:18 [...] % (Auto) 55.8 Lymph % (Auto) 30.0 Hall % (Auto) 12.2 Eos % (Auto) 1.5 Baso % (Auto) 0.5 Nucleat RBC Rel Count 0.3 Neut # (Auto) 2.8 Lymph # (Auto) 1.5 Hall # (Auto) 0.6 Eos # (Auto) 0.1 [...] Individualized Overall Plan of Care: Admit Date/Time: 11/06/23 Expected LOS: 14 Days Expected Discharge Destination: Home Rehabilitation IGC: 8.61-L knee osteoarthritis s/p TKA Primary Diagnosis: [...] 24 hour daily monitoring and intervention from Hydrochloric Manufacturing Supervisor as well as other consulting physicians including internal medicine as well as 24 hour daily investigator internal revenue nursing - for medical safe / optimal [...] equipment to enhance the patient's a functional baptism Ensure adequate nutrition and hydration Sleep Discharge planning. I spent 47 minutes for services, including mhak-ym-tqfs encounter with the patient, discussion of the case, plan of care, and exam; and yddkxab-rn-rjbt activities, such as reviewing pertinent mobile sales consultant documentation, recent therapynotes, laboratory and radiology studies, and discussion of case with care team including physician, nursing, upper caser, and therapists. More than 50 % of time was spent on patient/family counseling or coordination ofcare. Patient was personally seen by me, Dr. Bentley, on the day of encounter, within 24 hours of rehab admission, reviewed the history and the relevant portions of the chart, including current orders, allied health and mobile sales consultant notes, labs/imaging and performed humphries elements of exam and I formulated the planof care and facilitated the medical decision making. I completed a substantive portion of this encounter, the medical decision makingportion of this note in its entirety, including Allied health note review, nursing note review, mobile sales consultant note review, discussion with nursing and [...] signed by Jonny Bentley MD> 11/07/23 1437 [facility] Work Phone: 1(573) 795-119308-27-2024 NoteOccupational Therapy Occupational Therapy Treatment Patient Name: Domingo Palma : 1975 Today's Date: 11/06/2023 Time In:1050 Time Out-1122 Problem List Patient Active Problem List Diagnosis Weakness Asthma Essential hypertension Granulomatous lymphadenitis Migraine Morbid obesity with body mass index of 50 or higher (CMS/HCC) 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 lupus erythematosus encephalitis ([facility]) Spondylosis without myelopathy or radiculopathy, lumbar region [...] Eating meals?: None (Independent) Total Score OT [facility]: 17 Assessment/Plan OT Assessment OT Impairments: Decreased ADL status, Decreased safe judgment during ADL, Decreased endurance, Decreased functional mobility, Decreased IADLs OT Assessment/ROTARY ENVELOPE MACHINE OPERATOR Summary: Pt would benefit from continued skilled occupational therapy to maximize level of indepednence in basic ADLs. Prognosis: Good Evaluation/Treatment Tolerance: Patient limited by fatigue, Patient limited by pain Medic (more content not included)...[facility] 11-06-2023 Note Attestation signed by Lyssa Park [...] White MD Orthopaedic Surgery, PGY-4 Ortho Pager [phone] 11/06/23 8:[facility] Note11/06/23 0740 Post Acute Info Authorization started for [facility]patient Re[facility] (62) Facility name [facility] When was authorization started? 11/02/23 What time was authorization started? 1450 Determination Approved OTM staff notified Caro Silva, Edie Christina When was authorization received? 11/05/23 What time was authorization received? 1544 When does authorization ? 11/11/23 Approval number ([id number]) Peer to Peer requested Yes Denial overturned after Peer to Peer Yes How are we submitting authorization Website Portal What insurance are we submitting through [employer] Approved authorization after P2P to [facility] IPR, OTM notified.[facility]08-26-2024 NotePhysical Therapy Physical Therapy Treatment Patient Name: Domingo Palma : 1975 Today's Date: 11/05/2023 Patient Active Problem List Diagnosis Weakness Asthma Essential hypertension Granulomatous lymphadenitis Migraine Morbid obesity with body mass index of 50 or higher ([facility]/HCC) 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 lupus erythematosus encephalitis ([facility]) Spondylosis without myelopathy or radiculopathy, lumbar region [...] Stand, Toilet Transfer Belem (more content not included)...[facility] 11-05-2023 Note Attestation signed by Lyssa Park [...] White MD Orthopaedic Surgery, PGY-4 Ortho Pager [phone] 11/05/23 6:19 [facility]08-25-2024 NotePhysical Therapy Physical Therapy Treatment Patient Name: Domingo Palma : 1975 Today's Date: 11/04/2023 Discharge Recommendation: Inpatient Rehab Time Calculation Start Time 1411 Stop Time 1445 Time Calculation (min) 34 min PT Therapeutic Procedures Time Entry Therapeutic Activity Time Entry 34 Patient Active Problem List Diagnosis Weakness Asthma Essential hypertension Granulomatous lymphadenitis Migraine Morbid obesity with body mass index of 50 or higher ([facility]) 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 [...] on, and RN aware. PT Assessment PT Assessment/SIDEROGRAPHER Summary Pt motivated to progress, however, remains [...] to a chair ( (more content not included)...[facility]08-25-2024 Note Attestation signed by Lyssa Park MD [...] White MD Orthopaedic Surgery, PGY-4 Ortho Pager [phone] 11/04/23 7:37 AMUnKing's Daughters Medical Center [place]08-24-2024 Note11/03/23 0911 Referral Data Referral Source suction worker Referral Reason Follow up;Information;Placement Patient Information Primary Caregiver Self Activities of Daily Living Assistive Device Not applicable Living Arrangement (Current/Prior to Hospitalization) Private residence (with fiance) Ambulation Independent Dressing Independent Feeding Independent Behavior Oriented Communication Talks;Understands speaking;Understands Romansh Discharge Planning Support Systems Spouse/significant other;Children Type of Residence Inpatient rehab facility Will patient need Precert for Post Acute needs? Yes [facility]'s [facility] Does the patient need discharge transport arranged? Yes Screened by [facility]. PT/OT recommends inpt rehab. Pt has DC orders. Sent updates to [facility]. 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.[facility]08-24-2024 Note Attestation signed by Lyssa Park MD [...] White MD Orthopaedic Surgery, PGY-4 Ortho Pager [phone] 11/03/23 8:09 [facility]08-23-2024 NoteOccupational Therapy Treatment Note Patient Name: Domingo Palma Patient Date of : 1975 Today's Date: 11/02/23 Time in: 1159 Time Out: 1302 Total Time: 63 min Past Medical History and Past Surgical History Patient Active Problem List Diagnosis Weakness Asthma Essential hypertension Granulomatous lymphadenitis Migraine Morbid obesity with body mass index of 50 or higher ([facility]) 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 lupus erythematosus encephalitis ([facility]) Spondylosis without myelopathy or radiculopathy, 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 Pt expressed concern about going to [facility] and asked to speak with SW, SW [...] chair sink side, no assistive device Comments: Job'cecily brushing teeth without difficulty once set up [...] 1x sit >stand from chair Functional Ambulation: Arturoo'd (more content not included)...[facility]08-23-2024 Note11/02/23 1450 Post Acute Info Authorization started for Inpatient Rehab Hospital (62) Facility name [facility] When was authorization started? 11/02/23 What time was authorization started? 1450 Reference number for submission ([id number]) How are we submitting authorization Website Portal What insurance are we submitting through [employer] Submitted precert request for EFRAIN Guerra to follow.[facility]08-23-2024 Note Attestation signed by Kim Stafford MD [...] , ABGPO2 , ABGHCO3 , ABGBASEDEFIC , [id number] , ABGOXYGENSOU No lab exists for component: [...] Smith MD. PGY3, Internal Medicine Residency Program [facility] Preferred contact methods: Epic Chat GIM consult pagerUniversWooster Community Hospital08-23-2024 NotePhysical Therapy Physical Therapy Treatment Patient Name: Domingo Palma : 1975 Today's Date: 11/02/2023 Patient Active Problem List Diagnosis Weakness Asthma Essential hypertension Granulomatous lymphadenitis Migraine Morbid obesity with body mass index of 50 or higher ([facility]) 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 lupus erythematosus encephalitis ([facility]) Spondylosis without myelopathy or radiculopathy, lumbar region [...] from another person tao (more content not included)...[facility]08-23-2024 Note Attestation signed by Lyssa Park MD [...] Component Value Date INR 1.02 10/22/2023 Imaging: @[id number]@ ASSESSMENT: Domingo Palma is a 48 y.o. [...] White MD Orthopaedic Surgery, PGY-4 Ortho Pager [phone] 11/02/23 6:01 AM I am available via [employer] 6a-6p. May contact the on-call resident with any concerns via the Orthopaedic pager at any time.[facility]08-22-2024 Note Attestation signed by Nohemi Zimmer OT at 11/01/2023 3:59 PM This designer/writer present and provided 1:1 supervision and direction [...] body mass index of 50 or higher ([facility]) 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 lupus erythematosus encephalitis ([facility]) Spondylosis without myelopathy or radiculopathy, 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 Used RW a (more content not included)...[facility]08-22-2024 Note Attestation signed by Kim Stafford MD [...] Age - 48 [facility]. [facility] 1975 [id number] Date of Admission - 10/31/2023 6:41 AM [...] , ABGPO2 , ABGHCO3 , ABGBASEDEFIC , [id number] , ABGOXYGENSOU No lab exists for component: [...] Smith MD. PGY3, Internal Medicine Residency Program [facility] Preferred contact methods: Epic Chat GIM consult pagerUniversity of [facility]08-22-2024 NotePhysical Therapy Physical Therapy Treatment Patient Name: [...] noted in sitting ed (more content not included)...[facility]08-22-2024 Note9:25- DME referral recieved. 10:10-SW informed by [facility] that patient wants HHC and has no preference and is agreeable to a mass referral. SW sent referrals-await response. OTM will continue to follow.[facility]08-22-2024 Note 11/01/23 1013 Admission Assessment Questions Verify [...] Status Interested Does the patient have a counseling case manager assigned to them through their [...] link and activate MyChart? MyChart already active [facility]08-22-2024 Note8:30-SW sent DME referral to [facility]-await response. OTM will continue to follow.[facility]08-22-2024 Note Attestation signed by Lyssa Park MD [...] Component Value Date INR 1.02 10/22/2023 Imaging: @[id number]@ ASSESSMENT: Domingo Palma is a 48 y.o. [...] White MD Orthopaedic Surgery, PGY-4 Ortho Pager [phone] 11/01/23 8:01 AM I am available via [employer] 6a-6p. May contact the on-call resident with any concerns via the Orthopaedic pager at any time.[facility]08-21-2024 NotePhysical Therapy Physical Therapy Evaluation Patient Name: [...] excess calories without serious comorbidity in adult ([facility]) Morbid obesity with body mass index of 50 or higher ([facility]) Right anterior knee pain 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 lupus erythematosus encephalitis ([facility]) Lupus erythematosus Spondylosis without myelopathy or radiculopathy, 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..] on supplemental O2. General (more content not included)...[facility] 10-31-2023 NoteOccupational Therapy Occupational Therapy Evaluation Patient [...] excess calories without serious comorbidity in adult ([facility]) Morbid obesity with body mass index of 50 or higher ([facility]) Right anterior knee pain 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 lupus erythematosus encephalitis ([facility]) Lupus erythematosus Spondylosis without myelopathy or radiculopathy, [...] Level of Function Prior Function Level of [place]: Independent with ADLs and functional transfers, Independent [...] Objective General Assessments A (more content not included)...[facility]08-21-2024 NotePatient: Domingo Palma Procedure Summary Date: 10/31/23 Room / Location: [facility] OPERATING ROOM 02 / [facility] Operating Room Anesthesia Start: 823 Anesthesia Stop: 1102 Procedure: ARTHROPLASTY, KNEE, TOTAL (Left: Knee) Diagnosis: Primary osteoarthritis of left knee 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, unspecified whether serious comorbidity present ([facility]) Genu varum of left lower extremity Osteopenia, [...] were no known notable events for this encounter.[facility]08-21-2024 NoteOccupational Therapy Ot Check no charge Name: [...] No Charge Time attempted: 1330 Simone OTR/L, [facility]08-21-2024 NoteAirway Date/Time: 10/31/2023 8:55 AM Urgency: elective Airway not difficult General Information and Staff Patient location during procedure: OR Anesthesiologist: Zane Barfield MD Resident/DEPUTY ADMINISTRATOR/KIMI: KIMI Potts Performed: resident/DEPUTY ADMINISTRATOR/KIMI Indications and Patient Condition Indications for airway [...] approach: 1 Number of other approaches attempted: 0[facility] 10-31-2023 NotePeripheral Block Patient location during procedure: pre-op Start time: 10/31/2023 8:08 AM End time: 10/31/2023 8:23 AM Reason for block: at surgeon's request and post-op pain management Staffing Performed: resident/DEPUTY ADMINISTRATOR/KIMI and anesthesiologist Anesthesiologist: Zane Barfield MD Resident/DEPUTY ADMINISTRATOR: Guero Luther MD Preanesthetic Checklist Completed: patient [...] Heart rate change: no Slow fractionated injection: yesUnKing's Daughters Medical Center [place]08-21-2024 NotePatient: Domingo Palma Procedure Information Date/Time: 10/31/23829 Procedure: ARTHROPLASTY, KNEE, TOTAL (Left: Knee) - LILIANE NOTIFIED 10/21 GRADY Location: [facility] OPERATING ROOM 02 / [facility] Operating Room Surgeons: Lyssa aPrk MD Relevant Problems Anesthesia Denies anes issues; [...] discussed with resident and CAA. Additional Equipment RequestsUnfoundation surgical [facility] of [place] [facility] [phone] History of Present illness Narrative* Gina Bourgeois, PROFESSOR OF GERMAN-ANCHOR TACK PULLER - 10/30/2023 10:30 AM EDT [facility] [address] [place] [address] Patient: Navdeep Palma Sex: female : 1975 Age: 48 y.o. PCP: Bong Phelan, YULISA-ANCHOR TACK PULLER 10/30/2023 Navdeep Palma is here for a(n) 08/25/22 Left Genicular NB with 80% relief for 2-3 days only. Pt is currently established with orthopedic surgeon Dr Park for chronic left knee pain wishes to addresschronic low back pain today. Date of onset of pain: 2020 , pain has lasted greater than 3 months. Pain scale before treatment: 10/10 Pre-op pain score: 10/10 Post-op pain score: 2/10 2 hour post-op pain score: 2/10 4 hour post-op pain score: 2/10 Percentage of relief after and duration: see above Pain scale after treatment: 2/10 Chief Complaint Patient presents with Knee Pain Left HPI: 04/20/2021 Right genicular NB with 80% relief Knee Pain The incident occurred more than 1 week ago (02/2021). Injury mechanism: Rt TKA. The pain is presentin the right knee and left knee (left greater than right). The quality of the pain is described as aching, burning, cramping, shooting and stabbing (tight, shock feeling). The pain is at a severity of 10/10 (10/10 left and 7/10 right knee). The pain is severe. The pain has been Constant since onset. Associated symptoms include an inability to bear weight and muscle weakness (RLE). Foreign body present: Rt TKA. The symptoms are aggravated by weight bearing and movement. She has tried acetaminophen, ice, non-weight bearing, rest and heat (Rt TKA 02/2021 w/min relief, PT/HEP 04/2021, Chiro, Prev Injs, HEP, activity modification, flexeril, vicodin, percocet, tizanidine, tylenol 3 w/min relief) for the symptoms. The treatment provided mild relief. The effect of pain on patient's ADLS: Mild Impairment. Past Medical History: Diagnosis Date Abnormal stress test Allergic Asthma Back pain Chronic pain disorder CPAP (continuous positive airway pressure) dependence Echocardiogram abnormal EKG abnormality Essential hypertension 02/07/2021 Fibromyalgia, primary Joint pain Low back pain Lupus (systemic lupus erythematosus) ([facility]) Migraine Murmur, cardiac Obesity Osteoarthritis Osteoarthritis Pneumonia Sleep apnea Tooth loose Upper back pain Past Surgical History: Procedure Laterality Date SECTION three ECTOPIC SURGERY two GASTRECTOMY sleeve HYSTERECTOMY 2009 COMPLETE INJECTION BLOCK NERVE KNEE Left Genicular Left 08/25/2022 Performed by Albert Jones MD at [facility] INJECTION BLOCK NERVE KNEE right genicular Right 05/16/2021 Performed by Albert Jones MD at [facility] JOINT REPLACEMENT Right 02/09/2021 LYMPH NODE DISSECTION bilateral axillae x2 OOPHORECTOMY Bilateral 2009 RADIO FREQUENCY ABLATION L 4/5,5/S1 Left 08/04/2016 Performed by Albert Jones MD at [facility] RADIO FREQUENCY ABLATION L4/5,5/S1 Right 08/21/2016 Performed by Albert Jones MD at [facility] REPLACEMENT TOTAL KNEE Right 2020 TUBAL LIGATION x2 Allergies Allergen Reactions [place] [Hydrocodone-Acetaminophen] Itching and Headache Cyclobenzaprine Headache and Hives Hydrochlorothiazide Nausea Lisinopril Cough Family History Problem Relation Age of Onset Pancreatic cancer Mother Lung cancer Mother Arthritis Mother Migraines Father Arthritis Father Hypertension Brother Asthma Daughter Breast cancer Maternal Aunt Heart disease Maternal Uncle Hypertension Maternal Uncle Heart disease Maternal Grandmother Hypertension Maternal Grandmother Kidney disease Maternal Grandmother Social History Socioeconomic History Marital status: Single Spouse name: Not on file Number of children: Not on file Years of education: Not on file Highest education level: Not on file Occupational History Not on file Tobacco Use Smoking status: Never Passive exposure: Never Smokeless tobacco: Never Vaping Use Vaping status: Never Used Substance and Sexual Activity Alcohol use: Not Currently Comment: RARELY Drug use: No Sexual activity: Not Currently Other Topics Concern Caffeine Use Yes Social History Narrative Not on file Social Determinants of Health Financial Resource Strain: Medium Risk (05/04/2022) Overall Financial Resource Strain (CARDIA) Difficulty of Paying Living Expenses: Somewhat hard Food Insecurity: No Food Insecurity (10/30/2023) Hunger Screening Food Insecurity - Worry: Never True Food Insecurity - Inability: Never True Transportation Needs: No Transportation Needs (05/04/2022) PRAPARE - Transportation Lack of Transportation (Medical): No Lack of Transportation (Non-Medical): No Physical Activity: Not on file Stress: Not on file Social Connections: Not on file Interpersonal Safety: Unknown (05/03/2023) [facility] [place] Safety & Environment Fear of Current or Ex-Partner: Not on file Emotionally Abused: Not on file Physically Abused: Not on file Sexually Abused: Not on file Physically or Sexually Abused: Not on file Housing Instability: Low Risk (05/04/2022) Housing Instability Housing Instability: No Review of Systems Constitutional: Positive for fatigue (abotu 02/2022 not sleeping). Negative for chills. HENT: Negative. Eyes: Negative. Respiratory: Negative. Negative for cough and shortness of breath. Cardiovascular: Negative. Gastrointestinal: Negative. Endocrine: Negative. Genitourinary: Negative. Skin: Negative. Negative for rash and wound. Allergic/Immunologic: Negative. Hematological: Negative. Does not bruise/bleed easily. Psychiatric/Behavioral: Negative. Negative for self-injury and suicidal ideas. Vital Signs: BP 126/83 Pulse 80 Resp 18 Ht 167.6 cm (5' 6 ) Wt (!) 158.8 kg (350 lb) SpO2 99% BMI 56.49 kg/m Physical Exam: GENERAL - Healthy patient that appears stated age. HEENT - Normocephalic / Atraumatic, Extraoccular movements intact, trachea midline, thyroid within normal limits. CV - pulse regular, Warm extremities with appropriate color of nailbeds. RESP - No obvious wheezing, No Shortness of Breath, No overexertion response to exam maneuvers. COORDINATION - remains intact. PSYCH - Alert and Oriented x4, Attentive and appropriate, constitutionally normal, displays normal mood and affect per situation, answered questions appropriately during examination, demonstrated appropriate attention during discussion, demonstrated appropriate cognitive reasoning and understandingof the medical condition by asking appropriate questions regarding the diagnosis and risks/benefits/alternatives of treatment modalities. No obvious deficits in memory, reasoning, or intellect. Lumbar: SKIN - No rashes or bruising in the area of the patient s pain. LYMPH NODES - demonstrate no obvious enlargement. EXTREMITIES - Lower extremities are warm, with minimal edema and palpable pulses. Tenderness to palpation noted in the lumbar spine and paraspinal musculature. Pain is elicited withflexion, extension, and lateral rotation of the lumbar spine. Range of motion is diminished with these motions due to pain. Facet palpation is noted to be somewhat tender and facet loading maneuvers are mildly positive, but not concordant with the patient s normal pain complaints. STRENGTH - noted to be 5 out of 5 all muscle groups bilateral lower extremities including muscles involving hip flexion and abduction, knee flexion and extension, as well as foot dorsiflexion and plantarflexion. No notable atrophy, fasciculations or spasm. SENSORY - No notable sensory deficits in the bilateral lower extremities to touch or pinprick in all dermatomal distributions. Straight Leg Raise is Positive on the Left Gait is antalgic. Assessment/Treatment Plan: Navdeep was seen today for knee pain. Diagnoses and all orders for this visit: Chronic bilateral low back pain, unspecified whether sciatica present - X-ray spine lumbar 2 or 3 views; Future - MR lumbar spine without contrast; Future - Ambulatory referral to Physical Therapy; Future Disc displacement, lumbar Physical/Aquatic Therapy - It is felt that the patient will benefit from a course of physical therapy focusing on the above mentioned diagnosis. We will recommend that the physical therapist fully evaluate and treat at their discretion considering the modalities that are most useful for the condition being treated. This may i nclude modalities of comfort including moist heat, ultrasound, and TENS therapy. It may also utilize manual therapy and myofascial release for the myofascial component of the patient s pain. It will likely advance to modalities aimed at stabilizing and strengthing the target area while improving range of motion as well. We are also requesting that the physical therapist send notes that will keep our clinic updated to the patient s progress. Lumbar spine MRI without contrast- It is felt that additional diagnostic testing is necessary to further evaluate the patients currentpain pathology. For this reason, we will order additional imaging noted above. It is hopeful that this study will identify a significant pain generator that will be amenable to therapy. It is felt that this modality is necessary due to the severity and chronicity of symptoms and physical exam findings combined with the lack of recent imaging of the area. An MRI is specifically felt to be necessary due to the physical exam findings noted above and the patient s description of refractory pain in a neuropathic distribution that is not relieved by change in body position and interferes with the patient s activities of daily living Lumbar spine Imaging/Diagnostic Testing - It is felt that additional diagnostic testing is necessary to further evaluate the patients currentpain pathology. For this reason, we will order additional imaging/diagnostic testing noted above. It is hopeful that this study will identify a significant pain generator that will be amenable to therapy. It is felt that this modality is necessary due to the severity and chronicity of symptoms and physical exam findings combined with the lack of recent imaging/diagnostic testing of the area. Follow up 4-6 weeks. DISCUSSION: Treatment options discussed with patient and all questions answered to patient's satisfaction. Discussed the rules and regulations surrounding prescription of opioids and compliance at length. Failure to follow the rules and regulation will result in tapering and discontinuation of medications if applicable. Narcan home kit and lock pouch sent with patient today. OARRS: Reviewed. Follow up 4-6 weeks. Scribe Statement: Scribed for and in the presence of MARCUS ARITA CNP by Jessica Ann RN. Provider Statement: I, JILL ARITA, personally performed the services described in the documentation, as scribed by Jessica Ann RN in my presence, and it is both accurate and complete. Jessica Ann RN 10/30/23 1226 JILL Arita 10/30/23 1622 documented in this encounterPremier Health [facility]08-12-2024 NotePatient ID: Domingo Palma is a 48 y.o. [...] currently weightbearing as tolerated. Current treatments are [id number] ibuprofen and Tylenol, ice, rest, elevation, bracing, [...] the knee joint with posterolateral subluxation. Where: [facility] Date: 07/23/2023 x-ray left knee(s) : Complete [...] length with the patient (more content not included)...[facility]08-12-2024 NoteOrthopedic Surgery Subjective Chief complaint: Chief Complaint [...] Left knee pain Lupus (systemic lupus erythematosus) ([facility]) Migraine Obesity BMI 54.55 Osteoarthritis Sleep apnea [...] from me. Dr. Lyssa Park MD MRCSEd Clerical Car Checker orthopedic surgery Adult Reconstruction and Trauma [facility] 10-15-2023 NoteOhindia Vidal is not in network with [employer] [place] [employer]. Referral sent to [facility]08-05-2024 NoteI spoke with the patient for pre-operative [...] seat and rolling walker. She would like [facility] but does not have a preference. I will send a referral to [facility]07-18-2024 History of Present illness Narrative* Jordyn Moreira MD - 09/27/2023 3:30 PM EDT Navdeep Palma Date of visit: 09/27/2023 Date of : 1975 Age: 48 y.o. 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, lumbar region Lumbosacral spondylosis without myelopathy Essential hypertension Right anterior knee pain Primary osteoarthritis of left knee Pre-operative cardiovascular examination BMI 50.0-59.9, adult ([facility]) Allergies Allergen Reactions Paris [Hydrocodone-Acetaminophen] Itching and Headache Cyclobenzaprine Headache and Hives Hydrochlorothiazide Nausea Lisinopril Cough Current Outpatient Medications Medication Sig Dispense Refill acetaminophen (TYLENOL ARTHRITIS) 650 mg 8 hr tablet acetaminophen ER 650 mg tablet,extended release albuterol (PROVENTIL HFA;VENTOLIN HFA) 90 mcg/actuation inhaler Inhale 2 puffs as needed for wheezing. albuterol (PROVENTIL,VENTOLIN) 2.5 mg /3 mL (0.083 %) nebulizer solution Inhale 3 mL (2.5 mg total)by nebulization as needed for wheezing. amLODIPine (NORVASC) 10 mg tablet take one tablet by mouth every morning 30 tablet 11 ascorbic acid (VITAMIN C ORAL) Take 500 mg by mouth daily. azaTHIOprine (IMURAN) 100 mg tablet take 1 tablet by mouth 2 times a day (Patient taking differently: Take 1 tablet (100 mg total) by mouth 3 (three) times a day.) 120 tablet 0 baclofen (LIORESAL) 10 mg tablet 1 tablet as needed Orally prn DULoxetine (CYMBALTA) 60 mg capsule Take 1 capsule (60 mg total) by mouth in the morning. 90 capsule 1 estrogens, conjugated, (PREMARIN) 0.9 mg tablet Take 1 tablet (0.9 mg total) by mouth in the morning. hydrOXYzine (VISTARIL) 50 mg capsule Take 1 capsule (50 mg total) by mouth 3 (three) times a day asneeded for itching. 270 capsule 0 metFORMIN XR (GLUCOPHAGE XR) 500 mg 24 hr tablet TAKE 2 TABLETS BY MOUTH EVERY MORNING AND TAKE TWOTABLETS BY MOUTH EVERY NIGHT AT BEDTIME 180 tablet 1 multivitamin (THERAGRAN) tablet Take 1 tablet by mouth in the morning. omeprazole (PriLOSEC) 20 mg capsule take 1 capsule by mouth every morning 30 capsule 2 SUMAtriptan succinate 6 mg/0.5 mL needle-free injector Inject 0.5 mL (6 mg total) under the skin asneeded (migraine headache). topiramate (TOPAMAX) 25 mg tablet Take 1 tablet (25 mg total) by mouth nightly. 30 tablet 2 oxyCODONE-acetaminophen (PERCOCET) 7.5-325 mg per tablet Take 1 tablet by mouth every 6 (six) hoursas needed for pain. Max Daily Amount: 4 tablets 20 tablet 0 No current facility-administered medications for this visit. Chief Complaint Patient presents with Pre-op Exam PREOP CLEARANCE LEFT TOTAL KNEE REPLACEMENT Hypertension Shortness of Breath History of Present Illness I had the opportunity to meet this 48-year-old. She was last in the office 01/2021 She denies chest pain or worsening shortness of breath. 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 She is unaccompanied today CV TESTING HISTORY: ECHO: Left Ventricle: Systolic function is low normal to mildly decreased with an ejection fraction of 50-55%. Right Ventricle: Systolic function is normal. Tricuspid Valve: There is mild regurgitation. The tricuspid valve regurgitation jet is directed toward septum. There is no evidence of tricuspid valve stenosis. The right ventricular systolic pressure normal. RVSP calculated at 25 mmHg. RVSP is based on RA pressure of 3 mmHg. Mitral Valve: There is mild regurgitation. There is no evidence of mitral valve stenosis. Aortic Valve: There is no regurgitation or stenosis. Aorta: The aortic root is normal in size. Pericardium: There is no pericardial effusion. STRESS: No results found. HOLTER: No results found. CARDIAC CATH: No results found. CAROTID: No results found. CXR: No results found. Lipid Profile: Lab Results Component Value Date Cholesterol 159 11/04/2022 Cholesterol:HDL Ratio 3.2 11/04/2022 HDL Cholesterol 50 11/04/2022 Triglycerides 88 11/04/2022 LDL (calc) 91 11/04/2022 No data recorded No data recorded No data recorded EK09/27/2023 Sinus rhythm with nonspecific T-wave abnormality Past Medical History: Diagnosis Date Abnormal stress test Allergic Asthma Back pain Chronic pain disorder CPAP (continuous positive airway pressure) dependence Echocardiogram abnormal EKG abnormality Essential hypertension 02/07/2021 Fibromyalgia, primary Joint pain Low back pain Lupus (systemic lupus erythematosus) ([facility]) Migraine Murmur, cardiac Obesity Osteoarthritis Osteoarthritis Pneumonia Sleep apnea Tooth loose Upper back pain Past Surgical History: Procedure Laterality Date SECTION three ECTOPIC SURGERY two GASTRECTOMY sleeve HYSTERECTOMY 2009 COMPLETE INJECTION BLOCK NERVE KNEE Left Genicular Left 08/25/2022 Performed by Albert Jones MD at [facility] INJECTION BLOCK NERVE KNEE right genicular Right 05/16/2021 Performed by Albert Jones MD at [facility] JOINT REPLACEMENT Right 02/09/2021 LYMPH NODE DISSECTION bilateral axillae x2 OOPHORECTOMY Bilateral 2009 RADIO FREQUENCY ABLATION L 4/5,5/S1 Left 08/04/2016 Performed by Albert Jones MD at [facility] RADIO FREQUENCY ABLATION L4/5,5/S1 Right 08/21/2016 Performed by Albert Jones MD at [facility] REPLACEMENT TOTAL KNEE Right 2020 TUBAL LIGATION x2 Family History Problem Relation Age of Onset Pancreatic cancer Mother Lung cancer Mother Arthritis Mother Migraines Father Arthritis Father Hypertension Brother Asthma Daughter Breast cancer Maternal Aunt Heart disease Maternal Uncle Hypertension Maternal Uncle Heart disease Maternal Grandmother Hypertension Maternal Grandmother Kidney disease Maternal Grandmother Social History Socioeconomic History Marital status: Single Spouse name: Not on file Number of children: Not on file Years of education: Not on file Highest education level: Not on file Occupational History Not on file Tobacco Use Smoking status: Never Passive exposure: Never Smokeless tobacco: Never Vaping Use Vaping status: Never Used Substance and Sexual Activity Alcohol use: Not Currently Comment: RARELY Drug use: No Sexual activity: Not Currently Other Topics Concern Caffeine Use Yes Social History Narrative Not on file Social Determinants of Health Financial Resource Strain: Medium Risk (05/04/2022) Overall Financial Resource Strain (CARDIA) Difficulty of Paying Living Expenses: Somewhat hard Food Insecurity: No Food Insecurity (09/27/2023) Hunger Screening Food Insecurity - Worry: Never True Food Insecurity - Inability: Never True Transportation Needs: No Transportation Needs (05/04/2022) PRAPARE - Transportation Lack of Transportation (Medical): No Lack of Transportation (Non-Medical): No Physical Activity: Not on file Stress: Not on file Social Connections: Not on file Interpersonal Safety: Unknown (05/03/2023) [facility] [place] Safety & Environment Fear of Current or Ex-Partner: Not on file Emotionally Abused: Not on file Physically Abused: Not on file Sexually Abused: Not on file Physically or Sexually Abused: Not on file Housing Instability: Low Risk (05/04/2022) Housing Instability Housing Instability: No Review of Systems Review of Systems Constitutional: Negative. HENT: Negative. Eyes: Negative. Respiratory: Negative. Hematologic/Lymphatic: Bruises/bleeds easily. Skin: Positive for color change. Musculoskeletal: Positive for back pain. Gastrointestinal: Negative. Neurological: Positive for headaches. Psychiatric/Behavioral: Negative. Allergic/Immunologic: Positive for environmental allergies. CARDIOVASCULAR: Please review HPI. Physical Examination General appearance: Alert, oriented and cooperative. In no acute distress. Pleasant Skin: Warm and dry to touch. Respiratory: Clear to auscultation bilaterally, no use of accessory muscles. Cardiovascular: RRR with normal S1 and S2 with no murmurs. Musculoskeletal: No peripheral edema. VITAL SIGNS: BP (!) 136/96 (BP Site: Left Arm, BP Postition: Sitting) Pulse 78 Ht 165.1 cm (5' 5 ) Wt (!) 156 kg (344 lb) SpO2 97% BMI 57.24 kg/m Orders Placed or Reconciled This Encounter Medications estrogens, conjugated, (PREMARIN) 0.9 mg tablet Sig: Take 1 tablet (0.9 mg total) by mouth in the morning. Medications Discontinued During This Encounter Medication Reason diclofenac (VOLTAREN) 75 mg EC tablet Therapy completed montelukast (SINGULAIR) 10 mg tablet Therapy completed naproxen (NAPROSYN) 500 mg tablet Therapy completed orphenadrine (NORFLEX) 100 mg 12 hr tablet Therapy completed tiZANidine (ZANAFLEX) 2 mg tablet Therapy completed IMPRESSIONS/PLAN 1. Pre-operative clearance - [facility] [place], [place] - POCT EKG 2. Abnormal EKG - [facility] [place], [place] - POCT EKG 3. Pre-operative cardiovascular examination 4. Essential hypertension 1. Primary hypertension --add Cozaar --labs in 2 weeks 2. BMI greater than 50 3. Normal left ventricular systolic function on echocardiogram 12/2020 4. Low risk stress test 12/2020 5. Lupus Low risk for anticipated orthopedic procedure Add losartan/Cozaar 25 mg daily Laboratory studies in 1 week Record blood pressure and heart rate 3 times per week. Call if systolic (top) number is consistently greater than 140 or less than 100 or diastolic (bottom) number is consistently greater than 90. Call if heart rate is consistently greater than 110 or less than 50. TODAYS ORDERS Orders Placed This Encounter Procedures POCT EKG FOLLOW UP Return for 3-5 months, CAROLYN Ok. PCP: JILL Bower Referring Physician: JILL Bower [address], [facility] [address] [place] [address] documented in this encounterBrightlook HospitalSporthold07-18-[facility]24 Instructions* Patient Instructions* Jordyn Moreira MD - 09/27/2023 3:30 PM EDT Add losartan/Cozaar 25 mg daily Laboratory studies in 1 week Record blood pressure and heart rate 3 times per week. Call if systolic (top) number is consistently greater than 140 or less than 100 or diastolic (bottom) number is consistently greater than 90. Call if heart rate is consistently greater than 110 or less than 50. documented in this encounterPrem[facility] Miscellaneous Notes* Addendum Note - Jordyn Moreira MD - 09/27/2023 3:30 PM EDTAddended by: JORDYN MOREIRA on: 09/27/2023 04:26 PM Modules accepted: Orders * Addendum Note - Jordyn Moreira MD - 09/27/2023 3:30 PM EDTAddended by: JORDYN MOREIRA on: 09/27/2023 04:29 PM Modules accepted: Orders documented in this encounterPremier Health [facility]07-18-2024 Note* Addendum Note - Jordyn Moreira MD - 09/27/2023 3:30 PM EDTAddended by: JORDYN MOREIRA on: 09/27/2023 04:26 PM Modules accepted: Orders [facility]07-18-2024 Note* Addendum Note - Jordyn Moreira MD - 09/27/2023 3:30 PM EDTAddended by: JORDYN MOREIRA on: 09/27/2023 04:29 PM Modules accepted: Orders [facility]07-17-2024 Miscellaneous Notes* Telephone Encounter - Zena Mireles CMA - 09/26/2023 10:15 AM EDT Called patient to remind them to bring their most current copy of their medication list with them to their appt. Patient verbalizes understanding. documented in this encounterPrem[facility]07-17-2024 Telephone encounter Note* Telephone Encounter - Zena Mireles CMA - 09/26/2023 10:15 AM EDT Called patient to remind them to bring their most current copy of their medication list with them to their appt. Patient verbalizes understanding. [facility]07-01-2024 Miscellaneous Notes* Telephone Encounter - Candace Marcano - 09/10/2023 4:40 PM EDT Patient called requesting refill on Oxycodone and would like prescription for Prednisone 20mg sent to [facility] on [address]. Please advise. documented in this encounterPremier [facility]07-01-2024 Telephone encounter Note* Telephone Encounter - Candace Marcano - 09/10/2023 4:40 PM EDT Patient called requesting refill on Oxycodone and would like prescription for Prednisone 20mg sent to [facility] on [address]. Please advise. [facility]06-06-[facility]24 History of Present illness Narrative* Bong Phelan APRN-AMBROSIO - 08/16/2023 2:00 PM EDT Images from the original note were not included. [facility] [id number] [facility] [id number] Name: Navdeep Palma : 1975 CHIEF COMPLAINT Chief Complaint Patient presents with Annual Exam L knee replacement clearance Urinary Frequency Lower back pain, is able to void completely but still feel like she has to go HISTORY OF PRESENT ILLNESS Navdeep Palma is a 47 y.o. old female. Patient presents today for surgical clearance for left knee replacement. Check EKG and labs Dr Turcios Follows Rheumatology for lupus-She has had 2 infusions, says she is still in constant pain. Weekly headaches. Will add Topamax Patient has concerns of urinary frequency, back pain, and malodorous urine. Vaginal discharge. Check UA, culture and vaginal swab. ALLERGIES Allergies Allergen Reactions Paris [Hydrocodone-Acetaminophen] Itching and Headache Cyclobenzaprine Headache and [...] ORAL) Take 500 mg by mouth daily. azaTHIOprine (IMURAN) 100 mg tablet take 1 tablet by mouth 2 times a day 120 tablet 0 baclofen (LIORESAL) 10 mg tablet 1 tablet as needed Orally prn diclofenac (VOLTAREN) 75 mg EC tablet Take 1 tablet (75 mg total) by mouth in the morning and 1 tablet (75 mg total) before bedtime. (Patient not taking: Reported on 08/16/2023) 60 tablet 1 DULoxetine (CYMBALTA) 60 mg capsule Take 1 capsule (60 mg total) by mouth in the morning. 90 capsule 1 hydrOXYzine (VISTARIL) 50 mg capsule Take 1 capsule (50 mg total) by mouth 3 (three) times a day asneeded for itching. 270 capsule 0 metFORMIN XR (GLUCOPHAGE XR) 500 mg 24 hr tablet TAKE 2 TABLETS BY MOUTH EVERY MORNING AND TAKE TWOTABLETS BY MOUTH EVERY NIGHT AT BEDTIME 180 tablet 1 montelukast (SINGULAIR) 10 mg tablet Take 1 tablet (10 mg total) by mouth in the morning. multivitamin (THERAGRAN) tablet Take 1 tablet by mouth in the morning. naproxen (NAPROSYN) 500 mg tablet Take 1 tablet (500 mg total) by mouth in the morning and 1 tablet(500 mg total) in the evening. Take with meals. 60 tablet 0 omeprazole (PriLOSEC) 20 mg capsule take 1 capsule by mouth every morning 30 capsule 2 orphenadrine (NORFLEX) 100 mg 12 hr tablet Take 1 tablet (100 mg total) by mouth 2 (two) times a day as needed for muscle spasms. (Patient not taking: Reported on 08/16/2023) 10 tablet 0 oxyCODONE-acetaminophen (PERCOCET) 7.5-325 mg per tablet Take 1 tablet by mouth every 6 (six) hoursas needed for pain. Max Daily Amount: 4 tablets 40 tablet 0 SUMAtriptan succinate 6 mg/0.5 mL needle-free injector Inject 0.5 mL (6 mg total) under the skin asneeded (migraine headache). tiZANidine (ZANAFLEX) 2 mg tablet Take 1 tablet (2 mg total) by mouth every 6 (six) hours as needed. No current facility-administered medications on file prior to visit. MEDICAL/SURGICAL/FAMILY HISTORY Past Medical History: Diagnosis Date Abnormal stress test Allergic Asthma Back pain Chronic pain disorder CPAP (continuous positive airway pressure) dependence Echocardiogram abnormal EKG abnormality Essential hypertension 02/07/2021 Fibromyalgia, primary Joint pain Low back pain Lupus (systemic lupus erythematosus) ([facility]-HCC) Migraine Murmur, cardiac Obesity Osteoarthritis Osteoarthritis Pneumonia Sleep apnea Tooth loose Upper back pain Past Surgical History: Procedure Laterality Date SECTION three ECTOPIC SURGERY two GASTRECTOMY sleeve HYSTERECTOMY 2008 COMPLETE INJECTION BLOCK NERVE KNEE Left Genicular Left 08/25/2022 Performed by Albert Jones MD at [facility] INJECTION BLOCK NERVE KNEE right genicular Right 05/16/2021 Performed by Albert Jones MD at [facility] JOINT REPLACEMENT Right 02/09/2021 LYMPH NODE DISSECTION bilateral axillae x2 OOPHORECTOMY Bilateral 2008 RADIO FREQUENCY ABLATION L 4/5,5/S1 Left 08/04/2016 Performed by Albert Jones MD at [facility] RADIO FREQUENCY ABLATION L4/5,5/S1 Right 08/21/2016 Performed by Albert Jones MD at [facility] REPLACEMENT TOTAL KNEE Right 2020 TUBAL LIGATION x2 Family History Problem Relation Age of Onset Pancreatic cancer Mother Lung cancer Mother Arthritis Mother Migraines Father Arthritis Father Hypertension Brother Asthma Daughter Breast cancer Maternal Aunt Heart disease Maternal Uncle Hypertension Maternal Uncle Heart disease Maternal Grandmother Hypertension Maternal Grandmother Kidney disease Maternal Grandmother SOCIAL HISTORY Social History Socioeconomic History Marital status: Single Tobacco Use Smoking status: Never Passive exposure: Never Smokeless tobacco: Never Vaping Use Vaping status: Never Used Substance and Sexual Activity Alcohol use: Not Currently Comment: RARELY Drug use: No Sexual activity: Not Currently Other Topics Concern Caffeine Use Yes Social Determinants of Health Financial Resource Strain: Medium Risk (05/04/2022) Overall Financial Resource Strain (CARDIA) Difficulty of Paying Living Expenses: Somewhat hard Food Insecurity: No Food Insecurity (08/16/2023) Hunger Screening Food Insecurity - Worry: Never True Food Insecurity - Inability: Never True Transportation Needs: No Transportation Needs (05/04/2022) PRAPARE - Transportation Lack of Transportation (Medical): No Lack of Transportation (Non-Medical): No [facility] [place] Safety & Environment Housing Instability: Low Risk (05/04/2022) Housing Instability Housing Instability: No Social History Tobacco Use Smoking Status Never Passive exposure: Never Smokeless Tobacco Never REVIEW OF SYSTEMS Review of Systems Constitutional: Positive for fatigue. HENT: Negative. Respiratory: Negative. Cardiovascular: Negative. Gastrointestinal: Negative. Genitourinary: Positive for urgency. Musculoskeletal: Positive for arthralgias. Neurological: Positive for headaches. Psychiatric/Behavioral: The patient is nervous/anxious (Depressed and anxious). PHYSICAL EXAMINATION Vitals: 08/16/23 1408 BP: 120/80 BP Site: Left Arm BP Postition: Sitting BP CUFF SIZE: L (13-17 inches) Pulse: 71 Resp: 18 SpO2: 99% Weight: (!) 154.7 kg (341 lb) Height: 165.1 cm (5' 5 ) General appearance: Alert, oriented x 4, cooperative, no apparent distress. HEENT: Normocephalic, without obvious abnormality, atraumatic. PERRLA, no drainage, conjunctiva clear, sclera white. Neck: No JVD, supple, symmetrical, trachea midline. Lungs: Clear to auscultation bilaterally. No rhonchi, rales, wheezes, crackles, crepitus. Heart: Regular rate and rhythm, S1, S2 normal, no murmur, click, rub or gallop. No edema. Abdomen: Soft, non-tender; bowel sounds normal. Extremities: Extremities normal, atraumatic, no cyanosis. Skin: Skin color, texture, turgor normal for age and race. No rashes or lesions. Neurologic: CN 2-12 grossly normal, no numbness/tingling of extremities. Psych: Mood and affect appear appropriate for situation. ASSESSMENT & PLAN 1. Pre-diabetes - POCT Hemoglobin A1c 2. Urinary frequency - Urine culture (clean catch); Future - POCT urinalysis dipstick only 3. Preventative health care - CBC auto differential; Future - Comprehensive metabolic panel; Future - ECG 12 lead; Future 4. Reactive depression 5. Other migraine without status migrainosus, not intractable - topiramate (TOPAMAX) 25 mg tablet; Take 1 tablet (25 mg total) by mouth nightly. Dispense: 30 tablet; Refill: 2 6. BV (bacterial vaginosis) - Vaginitis Panel PCR; Future I will plan to have the patient return in approximately 30 days for a follow up. The patient was given standard warnings and instructed to call the office with any questions or concerns. 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 female. This is a patient who had a previous right knee replacement doing very well. She had this at [facility]. She feels like she had a little bit of a problem with paperwork and getting the care that she wantedso she was looking for a different option. She comes in today stating that her left knee is very severe painful and she has had previous injections in the knee. She is looking at knee replacement. She has a hard time getting around. She has lost about 5 lb. It still is very severe in terms of pain and she is looking for options. Past Medical History: Past Medical History: Diagnosis Date Abnormal stress test Allergic Asthma Back pain Chronic pain disorder CPAP (continuous positive airway pressure) dependence Echocardiogram abnormal EKG abnormality Essential hypertension 02/07/2021 Fibromyalgia, primary Joint pain Low back pain Lupus (systemic lupus erythematosus) ([facility]) Migraine Murmur, cardiac Obesity Osteoarthritis Osteoarthritis Pneumonia Sleep apnea Tooth loose Upper back pain Past Surgical History: Procedure Laterality Date SECTION three ECTOPIC SURGERY two GASTRECTOMY sleeve HYSTERECTOMY 2008 COMPLETE INJECTION BLOCK NERVE KNEE Left Genicular Left 08/25/2022 Performed by Albert Jones MD at [facility] INJECTION BLOCK NERVE KNEE right genicular Right 05/16/2021 Performed by Albert Jones MD at [facility] JOINT REPLACEMENT Right 02/09/2021 LYMPH NODE DISSECTION bilateral axillae x2 OOPHORECTOMY Bilateral 2008 RADIO FREQUENCY ABLATION L 4/5,5/S1 Left 08/04/2016 Performed by Albert Jones MD at [facility] RADIO FREQUENCY ABLATION L4/5,5/S1 Right 08/21/2016 Performed by Albert Jones MD at [facility] REPLACEMENT TOTAL KNEE Right 2020 TUBAL LIGATION x2 Medications: Current Outpatient Medications: acetaminophen (TYLENOL ARTHRITIS) 650 mg 8 hr tablet, acetaminophen ER 650 mg tablet,extended release, Disp: , Rfl: albuterol (PROVENTIL HFA;VENTOLIN HFA) 90 mcg/actuation inhaler, Inhale 2 puffs as needed for wheezing., Disp: , Rfl: albuterol (PROVENTIL,VENTOLIN) 2.5 mg /3 mL (0.083 %) nebulizer solution, Inhale 3 mL (2.5 mg total) by nebulization as needed for wheezing., Disp: , Rfl: amLODIPine (NORVASC) 10 mg tablet, Take 1 tablet (10 mg total) by mouth in the morning., Disp: 30 tablet, Rfl: 11 ascorbic acid (VITAMIN C ORAL), Take 500 mg by mouth daily., Disp: , Rfl: azaTHIOprine (IMURAN) 100 mg tablet, take 1 tablet by mouth twice a day, Disp: 60 tablet, Rfl: 1 baclofen (LIORESAL) 10 mg tablet, 1 tablet as needed Orally prn, Disp: , Rfl: cholecalciferol, vitamin D3, (VITAMIN D3 ORAL), Take 2,000 Unit by mouth daily., Disp: , Rfl: diclofenac (VOLTAREN) 75 mg EC tablet, Take 1 tablet (75 mg total) by mouth in the morning and 1 tablet (75 mg total) before bedtime., Disp: 60 tablet, Rfl: 1 DULoxetine (CYMBALTA) 60 mg capsule, Take 1 capsule (60 mg total) by mouth in the morning., Disp: 90 capsule, Rfl: 1 hydrOXYzine (VISTARIL) 50 mg capsule, Take 1 capsule (50 mg total) by mouth 3 (three) times a day as needed for itching., Disp: 270 capsule, Rfl: 0 metFORMIN XR (GLUCOPHAGE XR) 500 mg 24 hr tablet, TAKE 2 TABLETS BY MOUTH EVERY MORNING AND TAKE TWO TABLETS BY MOUTH EVERY NIGHT AT BEDTIME, Disp: 180 tablet, Rfl: 1 montelukast (SINGULAIR) 10 mg tablet, Take 1 tablet (10 mg total) by mouth in the morning., Disp: ,Rfl: multivitamin (THERAGRAN) tablet, Take 1 tablet by mouth in the morning., Disp: , Rfl: naproxen (NAPROSYN) 500 mg tablet, Take 1 tablet (500 mg total) by mouth in the morning and 1 tablet (500 mg total) in the evening. Take with meals., Disp: 60 tablet, Rfl: 0 omeprazole (PriLOSEC) 20 mg capsule, take 1 capsule by mouth every morning, Disp: 30 capsule, Rfl: 2 orphenadrine (NORFLEX) 100 mg 12 hr tablet, Take 1 tablet (100 mg total) by mouth 2 (two) times a day as needed for muscle spasms., Disp: 10 tablet, Rfl: 0 oxyCODONE-acetaminophen (PERCOCET) 7.5-325 mg per tablet, Take 1 tablet by mouth every 6 (six) hours as needed for pain. Max Daily Amount: 4 tablets, Disp: 20 tablet, Rfl: 0 SUMAtriptan succinate 6 mg/0.5 mL needle-free injector, Inject 0.5 mL (6 mg total) under the skin as needed (migraine headache)., Disp: , Rfl: tirzepatide, weight loss, 2.5 mg/0.5 mL pen injector, Inject 2.5 mg under the skin every 7 days., Disp: 3 mL, Rfl: 1 tiZANidine (ZANAFLEX) 2 mg tablet, Take 1 tablet (2 mg total) by mouth every 6 (six) hours as needed., Disp: , Rfl: atogepant (QULIPTA) 60 mg tablet, Take 60 mg by mouth in the morning., Disp: 30 tablet, Rfl: 0 hydrOXYzine (ATARAX) 50 mg tablet, Take 1 tablet (50 mg total) by mouth nightly., Disp: 30 tablet, Rfl: 1 ibuprofen (MOTRIN) 800 mg tablet, Take 1 tablet (800 mg total) by mouth 3 (three) times a day., Disp: 21 tablet, Rfl: 0 lidocaine (LIDODERM) 5 %, Place 1 patch on the skin daily. Remove & Discard patch within 12 hours or as directed by MD, Disp: 10 patch, Rfl: 0 sodium chloride (OCEAN NASAL) 0.65 % nasal spray, Administer 1 spray into each nostril as needed for rhinitis., Disp: 15 mL, Rfl: 12 Allergies and adverse reactions: Allergies Allergen Reactions Paris [Hydrocodone-Acetaminophen] Itching and Headache Cyclobenzaprine Headache and Hives Hydrochlorothiazide Nausea Social History: Social History Socioeconomic History Marital status: Single Spouse name: Not on file Number of children: Not on file Years of education: Not on file Highest education level: Not on file Occupational History Not on file Tobacco Use Smoking status: Never Passive exposure: Never Smokeless tobacco: Never Vaping Use Vaping status: Never Used Substance and Sexual Activity Alcohol use: Yes [...] Social Connections: Not on file Interpersonal Safety: Unknown (05/03/2023) Received from [facility], [facility] Safety & Environment Fear of Current or Ex-Partner: Not on file Emotionally Abused: Not on file Physically Abused: Not on file Sexually Abused: Not on file Physically or Sexually Abused: Not on file Housing Instability: Low Risk (05/04/2022) Housing Instability Housing Instability: No Family History: Family History Problem Relation Age of Onset Cancer Mother Lung cancer Mother Arthritis Mother Migraines Father Arthritis Father Breast cancer Maternal Aunt Heart disease Maternal Grandmother Hypertension Maternal Grandmother Kidney disease Maternal Grandmother Heart disease Maternal Uncle Hypertension Maternal Uncle Asthma Daughter Hypertension Brother ROS: Constitutional No fever No chills Musculoskeletal Joint pain Objective: General Appearance : Well appearing Comfortable Orientation: Oriented to Person Place Time Mood and Affect: Normal Gait: Antalgic Right Left Hip exam Internal rotation: 20 External rotation: 30 No pain with range of motion Internal rotation: 20 External rotation: 30 No pain with range of motion Knee exam Extension: 0 Flexion: 120 Effusion: Extension: 5 Flexion: 110 Effusion: Pain with range of motion. Tender to palpation over the medial joint line. Labs: Lab Results Component Value Date HGB 12.8 03/01/2023 HGB 12.2 11/04/2022 HGB 11.9 10/20/2020 Lab Results Component Value Date CREATININE 0.65 03/01/2023 CREATININE 0.65 11/04/2022 CREATININE 0.76 10/20/2020 Lab Results Component Value Date CRP 0.9 (H) 03/01/2023 CRP 0.2 10/20/2020 CRP <0.1 03/29/2020 Lab Results Component Value Date SEDRATE 59 (H) 03/01/2023 SEDRATE 35 (H) 10/20/2020 SEDRATE 25 (H) 03/29/2020 Lab Results Component Value Date CULTURE <10,000 ORGANISMS/ML NORMAL URO GENITAL SOWMYA 07/12/2023 CULTURE <10,000 ORGANISMS/ML NORMAL URO GENITAL SOWMYA 04/30/2023 CULTURE 10-50,000 ORGANISMS/mL NORMAL UROGENITAL SOWMYA 04/06/2023 Imaging: Radiographs of the left knee were reviewed. Findings: Complete [id number] joint space narrowing with tricompartmental changes with osteophyteformation. Assessment: 1. Primary osteoarthritis of left knee Plan: I think she would be a candidate for knee replacement in the future. However, she has not a candidate for surgery at [place]. She would really good result with the right knee and although she would some issues with the postoperative physical therapy and some communication issues, I do think that the best option for her would be a full service hospital. documented in this encounterPremier [facility]05-13-[facility] NoteSubjective: Patient ID: Navdeep Palma is a [...] currently weightbearing as tolerated. Current treatments are [id number] ibuprofen and Tylenol, ice, rest, elevation, bracing, [...] proximal pole patella enthesopathy osteophytes noted. Where: [facility] Date: 07/23/2023 x-ray left knee(s) : Complete [...] left primary cemented total knee arthroplasty using [place] implants were discussed at length with the [...] schedule surgery once medical clearance is obtained Robert Perez M3 [facility] 07/23/23 By using the attestations below, the signing clinician agrees that I have read and verify that the documentation has been personally reviewed by me an (more content not included)...[facility]05-02-2024 History of Present illness Narrative* Cynthia Mare Gaviriai, PROFESSOR OF GERMAN-ANCHOR TACK PULLER - 07/12/2023 10:45 AM EDT Images from the original note were not included. [address] [facility] [id number] 07/12/23 Navdeep Palma is a 47 y.o. year old female who is an established patient seen by [facility] Video visit for [facility] with a chief complaint of follow up No chief complaint on file. This call is considered an audio visual visit, which is to help assess your current healthcare needs and to determine the appropriate care you may require. This visit may be a billable service through your insurance company. Do you consent to moving forward with this telephone visit? Yes . Patient is at home. Provider is in office. History of Present Illness: This is a 47 year old female who presents via tele visit today with concerns of left-sided flank pain & urinary frequency. Patient reports this began yesterday, she reports her pain improve when she lays down completely flat. Patient reports she took tylenol and percocet. The patient does also endorse having a fever, she checked her temperature early this morning at 3:00 a.m. and reporting having a temperature of 100 F. She does report that she has frequent fevers. Patient otherwise denies having any other concerns or complaints today. Flank Pain This is a new problem. The current episode started yesterday. The problem occurs daily. The problemis unchanged. The pain is present in the thoracic spine. The quality of the pain is described as aching. The pain does not radiate. The pain is at a severity of 10/10. The pain is severe. The symptoms are aggravated by bending, sitting, twisting and position. Associated symptoms include a fever (at 3AM 100 F even.). Pertinent negatives include no abdominal pain, chest pain or dysuria. Treatments tried: tylenol & precocet. The treatment provided significant relief. Past Medical History: Diagnosis Date Abnormal stress test Allergic Asthma Back pain Chronic pain disorder CPAP (continuous positive airway pressure) dependence Echocardiogram abnormal EKG abnormality Essential hypertension 02/07/2021 Fibromyalgia, primary Joint pain Low back pain Lupus (systemic lupus erythematosus) ([facility]) Migraine Murmur, cardiac Obesity Osteoarthritis Osteoarthritis Pneumonia Sleep apnea Tooth loose Upper back pain Past Surgical History: Procedure Laterality Date SECTION three ECTOPIC SURGERY two GASTRECTOMY sleeve HYSTERECTOMY 2008 COMPLETE INJECTION BLOCK NERVE KNEE Left Genicular Left 08/25/2022 Performed by Albert Jones MD at [facility] INJECTION BLOCK NERVE KNEE right genicular Right 05/16/2021 Performed by Albert Jones MD at [facility] JOINT REPLACEMENT Right 02/09/2021 LYMPH NODE DISSECTION bilateral axillae x2 OOPHORECTOMY Bilateral 2009 RADIO FREQUENCY ABLATION L 4/5,5/S1 Left 08/04/2016 Performed by Albert Jones MD at [facility] RADIO FREQUENCY ABLATION L4/5,5/S1 Right 08/21/2016 Performed by Albert Jones MD at [facility] REPLACEMENT TOTAL KNEE Right 2020 TUBAL LIGATION x2 Family History Problem Relation Age of Onset Cancer Mother Lung cancer Mother Arthritis Mother Migraines Father Arthritis Father Breast cancer Maternal Aunt Heart disease Maternal Grandmother Hypertension Maternal Grandmother Kidney disease Maternal Grandmother Heart disease Maternal Uncle Hypertension Maternal Uncle Asthma Daughter Hypertension Brother reports that she has never smoked. She has never used smokeless tobacco. She reports current alcohol use. She reports that she does not use drugs. Allergies Allergen Reactions Paris [Hydrocodone-Acetaminophen] Itching and Headache Cyclobenzaprine Headache and Hives Hydrochlorothiazide Nausea Medication List Accurate as of July 12, 2023 11:04 AM. If you have any questions, ask your nurse or doctor. New Medications Ordered This Visit sulfamethoxazole-trimethoprim 800-160 mg per tablet Quantity: 6 tablet Refills: 0 For diagnoses: Acute cystitis without hematuria Dose: 1 tablet Signed by: Cynthia Wilcox APRN-AMBROSIO 1 tablet, oral, 2 times daily Commonly known as: BACTRIM DS Started by: JILL Negrete Medications Continued This Visit acetaminophen 650 mg 8 hr tablet Refills: 0 Commonly known as: TYLENOL ARTHRITIS * albuterol 2.5 mg /3 mL (0.083 %) nebulizer solution Refills: 0 Dose: 2.5 mg Commonly known as: PROVENTIL,VENTOLIN * albuterol 90 mcg/actuation inhaler Refills: 0 Dose: 2 puff Commonly known as: PROVENTIL HFA;VENTOLIN HFA amLODIPine 10 mg tablet Quantity: 30 tablet Refills: 11 For diagnoses: Essential hypertension Dose: 10 mg Signed by: JILL Bower 10 mg, oral, Daily Commonly known as: NORVASC azaTHIOprine 100 mg tablet Quantity: 60 tablet Refills: 1 For diagnoses: Systemic lupus erythematosus, unspecified SLE type, unspecified organ involvement status ([facility]) Dose: 100 mg Signed by: JILL Bower 100 mg, oral, 2 times daily Commonly known as: IMURAN baclofen 10 mg tablet Refills: 0 Commonly known as: LIORESAL diclofenac 75 mg EC tablet Quantity: 60 tablet Refills: 1 Dose: 75 mg Signed by: JILL Bower 75 mg, oral, 2 times daily Commonly known as: VOLTAREN DULoxetine 60 mg capsule Quantity: 90 capsule Refills: 1 Dose: 60 mg Signed by: JILL Bower 60 mg, oral, Daily Commonly known as: CYMBALTA hydrOXYzine 50 mg capsule Quantity: 270 capsule Refills: 0 For diagnoses: Medication refill Dose: 50 mg Signed by: JILL Bower 50 mg, oral, 3 times daily PRN Commonly known as: VISTARIL hydrOXYzine 50 mg tablet Quantity: 30 tablet Refills: 1 Dose: 50 mg Signed by: JILL Bower 50 mg, oral, Nightly Commonly known as: ATARAX ibuprofen 800 mg tablet Quantity: 21 tablet Refills: 0 Dose: 800 mg Signed by: JILL Bower 800 mg, oral, 3 times daily Commonly known as: MOTRIN lidocaine 5 % Quantity: 10 patch Refills: 0 Dose: 1 patch Signed by: JILL Bower 1 patch, transdermal, Every 24 hours, Remove & Discard patch within 12 hours or as directed by MD Commonly known as: LIDODERM metFORMIN XR 500 mg 24 hr tablet Quantity: 180 tablet Refills: 1 For diagnoses: Pre-diabetes Signed by: JILL Bower TAKE 2 TABLETS BY MOUTH EVERY MORNING AND TAKE TWO TABLETS BY MOUTH EVERY NIGHT AT BEDTIME Commonly known as: GLUCOPHAGE XR montelukast 10 mg tablet Refills: 0 Dose: 10 mg Commonly known as: SINGULAIR multivitamin tablet Refills: 0 Dose: 1 tablet Commonly known as: THERAGRAN naproxen 500 mg tablet Quantity: 60 tablet Refills: 0 For diagnoses: Lupus ([facility]) Dose: 500 mg Signed by: JILL Bower 500 mg, oral, 2 times daily with meals Commonly known as: NAPROSYN OCEAN NASAL 0.65 % nasal spray Quantity: 15 mL Refills: 12 Dose: 1 spray Signed by: JILL Bower 1 spray, nasal, As needed Generic drug: sodium chloride omeprazole 20 mg capsule Quantity: 30 capsule Refills: 2 For diagnoses: Gastroesophageal reflux disease without esophagitis Signed by: JILL Bower take 1 capsule by mouth every morning Commonly known as: PriLOSEC orphenadrine 100 mg 12 hr tablet Quantity: 10 tablet Refills: 0 Dose: 100 mg Signed by: JILL Muller 100 mg, oral, 2 times daily PRN Commonly known as: NORFLEX oxyCODONE-acetaminophen 7.5-325 mg per tablet Quantity: 20 tablet Refills: 0 Doctor's comments: 5 Day Supply For diagnoses: Other forms of systemic lupus erythematosus, unspecified organ involvement status ([facility]) Dose: 1 tablet Signed by: JILL Bower 1 tablet, oral, Every 6 hours PRN Commonly known as: PERCOCET QULIPTA 60 mg tablet Quantity: 30 tablet Refills: 0 For diagnoses: Other migraine without status migrainosus, not intractable Dose: 60 mg Signed by: JILL Bower 60 mg, oral, Daily Generic drug: atogepant SUMAtriptan succinate 6 mg/0.5 mL needle-free injector Refills: 0 Dose: 6 mg tirzepatide (weight loss) 2.5 mg/0.5 mL pen injector Quantity: 3 mL Refills: 1 For diagnoses: Pre-diabetes Dose: 2.5 mg Signed by: JILL Bower 2.5 mg, subcutaneous, Every 7 days tiZANidine 2 mg tablet Refills: 0 Dose: 2 mg Commonly known as: ZANAFLEX VITAMIN C ORAL Refills: 0 Dose: 500 mg VITAMIN D3 ORAL Refills: 0 Dose: 2,000 Unit * This list has 2 medication(s) that are the same as other medications prescribed for you. Read thedirections carefully, and ask your doctor or other care provider to review them with you. The following portions of the patient's history were reviewed and updated as appropriate: allergies, current medications, past family history, past medical history, past social history, past surgicalhistory and problem list. Review of Systems: Review of Systems Constitutional: Positive for fever (at 3AM 100 F even.). Negative for chills. HENT: Negative for ear pain and sore throat. Eyes: Negative for pain and visual disturbance. Respiratory: Negative for cough and shortness of breath. Cardiovascular: Negative for chest pain and palpitations. Gastrointestinal: Negative for abdominal pain and vomiting. Genitourinary: Positive for flank pain, frequency and urgency. Negative for dysuria and hematuria. Musculoskeletal: Negative for arthralgias and back pain. Skin: Negative for color change and rash. Neurological: Negative for seizures and syncope. All other systems reviewed and are negative. Recent Imaging: No results found. Recent Labs: No results found for this or any previous visit (from the past 168 hour(s)). Physical Exam: not done , telephone visit Diagnoses and all orders for this visit: Acute cystitis without hematuria - Urine Culture; Future - Urinalysis (clean catch); Future - sulfamethoxazole-trimethoprim (BACTRIM DS) 800-160 mg per tablet; Take 1 tablet by mouth in the morning and 1 tablet before bedtime. Do all this for 3 days. Patient will need to follow up in person in the office if her symptoms worsen or do not improve. A total of 20 minutes was spent with the patient today using the Telehealth/video software in [employer]. This was performed en lieu of a [id number] office visit due to the current COVID-19 pandemic. Thank you, JILL Negrete Please note that portions of this note were generated using voice recognition [employer] dictation software. Although every effort was made to ensure the accuracy of this automated data analysis manager, some errors in data analysis manager may have occurred. JILL Negrete 07/12/23 [id number] documented in this encounterPremier [facility]04-18-2024 Miscellaneous Notes* Telephone Encounter - Tahmina Waldrop - 06/28/2023 3:08 PM EDT Pt called office stating she picked up her hydroxyzine 50 mg tablets. Pt has been taking capsules she would like to know if we can discontinue the tablets and re order the capsules. [employer] pended hydroxyzine 50 mg capsules. Pt also requesting refill on percocet. Percocet pended per last order at 5 day supply. documented in this encounterPremier Health [facility]04-18-2024 Telephone encounter Note* Telephone Encounter - Tahmina Waldrop - 06/28/2023 3:08 PM EDT Pt called office stating she picked up her hydroxyzine 50 mg tablets. Pt has been taking capsules she would like to know if we can discontinue the tablets and re order the capsules. [employer] pended hydroxyzine 50 mg capsules. Pt also requesting refill on percocet. Percocet pended per last order at 5 day supply. [facility]03-07-2024 Miscellaneous Notes* Telephone Encounter - Xochitl Muir - 05/17/2023 11:00 AM EST Patient requesting a 90 day supply of Omeprazole. documented in this encounterPremier Health [facility] Center03-07-2024 Telephone encounter Note* Telephone Encounter - Xochitl Muir - 05/17/2023 11:00 AM EST Patient requesting a 90 day supply of Omeprazole. [facility] [employer] [id number] History of Present illness Narrative* Darlin Wilkerson MD - 04/30/2023 10:30 AM EST Images from the original note were not included. [address] [id number] Date of Service: 04/30/2023 Video Visit via Real-time Synchronous Audiovisual Provider Location: [facility] [address] [place] [id number] Patient Location: Patient's home Patient Location Blueprinter: None Video Visit Consent Statement: I discussed [...] that there are some limitations compared to bpey-[id number] evaluations. We elected to proceed. Chief Complaint: Pain SUBJECTIVE: Navdeep Palma is a 47 y.o. female who came to rheumatology clinic for follow up evaluation of having history of lupus. The problem has been present for several years. Patient was seeing Dr. Downs until 2020 when she had to move to [place] but patient is back to the city [...] and all orders for this visit: Lupus ([facility]) - lupus was diagnosed several years ago [...] with Saphnel[facility]. - [facility] - [place], [place] Lumbosacral spondylosis without myelopathy - she is been morbidly obese -she should try more physical therapy and losing weight Class 3 severe obesity due to excess calories without serious comorbidity with body mass index (BMI) of 50.0 to 59.9 in adult ([facility]) - she had gastric sleeve surgery before [...] or corrected. Thank you for your understanding. [facility] Dr. Darlin Wilkerson M.D. [address] [place] [address], [address] [place] [address] Office: [phone] 04/30/2023 documented in this encounterPremier Health [facility] Center01-26-2024 Miscellaneous Notes* Telephone Encounter - Judy Dumas CMA - 04/06/2023 3:50 PM EST Patient called today to request her results of her CXR as she states that she still has some chest discomfort. * Telephone Encounter - JILL Bower - 04/06/2023 3:50 PM EST Please notify patient that CXR is normal * Telephone Encounter - Judy Dumas CMA - 04/06/2023 3:50 PM EST [employer] called and informed her she voiced her understanding. documented in this encounterPremier Health [facility] Center01-26-2024 Telephone encounter Note* Telephone Encounter - Judy Dumas CMA - 04/06/2023 3:50 PM EST Patient called today to request her results of her CXR as she states that she still has some chest discomfort. [facility]01-26-[facility] Telephone encounter Note* Telephone Encounter - JILL Bower - 04/06/2023 3:50 PM EST Please notify patient that CXR is normal [facility]01-26-2024 Telephone encounter Note* Telephone Encounter - Judy Dumas CMA - 04/06/2023 3:50 PM EST [employer] called and informed her she voiced her understanding. [facility]01-26-2024 Miscellaneous Notes* Telephone Encounter - Dary Crespo - 04/06/2023 11:10 AM EST Provider Okayed sample of quilipta per office notes 04/06/23 x3 Lot # [id number] EXP: 08/2024 * Telephone Encounter - Leena Barragan - 04/06/2023 11:10 AM EST [employer] sent pt Photos to Photos message today, 04/17/23, to inquire if pt still needed the samples. [employer] informed pt that the samples would be held up front until the end of this week as original samples werepulled on 04/06/23. documented in this encounterPremier Health [facility]01-26-2024 Telephone encounter Note* Telephone Encounter - Dary Crespo - 04/06/2023 11:10 AM EST Provider Okayed sample of quilipta per office notes 04/06/23 x3 Lot # [id number] EXP: 08/2024 [facility]01-26-[facility] Telephone encounter Note* Telephone Encounter - Leena Barragan - 04/06/2023 11:10 AM EST [employer] sent pt Photos to Photos message today, 04/17/23, to inquire if pt still needed the samples. [employer] informed pt that the samples would be held up front until the end of this week as original samples werepulled on 04/06/23. [facility]01-26-[facility] History of Present illness Narrative* Bong Phelan, PROFESSOR OF GERMAN-ANCHOR TACK PULLER - 04/06/2023 10:15 AM EST Images from the original note were not included. [facility] [address] [facility] [id number] Name: Navdeep Palma : 1975 CHIEF COMPLAINT No chief complaint on file. HISTORY OF PRESENT ILLNESS Navdeep Palma is a 47 y.o. old female who is an established patient seen by [facility] Video visit with a chief complaint of [...] patient with Qulipta samples at the front lobby. She has left sided pain to the [...] to 2000 daily. ALLERGIES Allergies Allergen Reactions Paris [Hydrocodone-Acetaminophen] Itching and Headache Cyclobenzaprine Headache and [...] within 12 hours or as directed by 10 patch 0 montelukast (SINGULAIR) 10 mg [...] Low back pain Lupus (systemic lupus erythematosus) ([facility]-HCC) Migraine Murmur, cardiac Obesity Osteoarthritis Osteoarthritis Pneumonia Sleep apnea Tooth loose Upper back pain Past Surgical History: Procedure Laterality Date SECTION three ECTOPIC SURGERY two GASTRECTOMY sleeve HYSTERECTOMY 2008 COMPLETE INJECTION BLOCK NERVE KNEE Left Genicular Left 08/25/2022 Performed by Albert Jones MD at [facility] INJECTION BLOCK NERVE KNEE right genicular Right 05/16/2021 Performed by Albert Jones MD at [facility] JOINT REPLACEMENT Right 02/09/2021 LYMPH NODE DISSECTION bilateral axillae x2 OOPHORECTOMY Bilateral 2008 RADIO FREQUENCY ABLATION L 4/5,5/S1 Left 08/04/2016 Performed by Albert Jones MD at [facility] RADIO FREQUENCY ABLATION L4/5,5/S1 Right 08/21/2016 Performed by Albert Jones MD at [facility] REPLACEMENT TOTAL KNEE Right 2020 TUBAL [...] patient today using the Telehealth/video software in [employer]. This was performed en lieu of a [id number] office visit due to the current COVID-19 pandemic. JILL Bower APRN-CNP 04/10/23 [id number] documented in this encounterPremier Health [facility] Center12-29-2023 Miscellaneous Notes* Telephone Encounter - Xochitl Muir - 03/09/2023 9:14 AM EST Pharmacy requesting clarification on contradictory sig. Had stated take 2 500 tablets, but also take one tablet with breakfast. Updated to only say take 2 tablets due to increasing patient's dose to 1,000 mg per day. documented in this encounterPremier Health [facility] Center12-29-2023 Telephone encounter Note* Telephone Encounter - Xochitl Muir - 03/09/2023 9:14 AM EST Pharmacy requesting clarification on contradictory sig. Had stated take 2 500 tablets, but also take one tablet with breakfast. Updated to only say take 2 tablets due to increasing patient's dose to 1,000 mg per day. [facility]12-21-2023 History of Present illness Narrative* JILL Bower - 03/01/2023 11:00 AM EST Images from the original note were not included. [facility] [address] [place] [phone] Name: Navdeep Palma : 1975 CHIEF COMPLAINT No chief complaint on file. HISTORY OF PRESENT ILLNESS Navdeep Palma is a 47 y.o. old female who is an established patient seen by [facility] Video visit with a chief complaint of weight loss. This call is considered an audio visual visit, which is to help assess your current healthcare needs and to determine the appropriate care you may require. This visit may be a billable service through your insurance company. Do you consent to moving forward with this telephone visit? Yes . Patient is at home. Provider is in the office. Patient presents today for weight loss follow up. She has been in discussion with insurance companyin regards to coverage for Mounjaro/Zepbound. A1C has increased from 5.9-6.2. Currently on Metformin. Will resend script for Zepbound for pre-diabetes. Patient struggles with exercise due to lupus resulting in chronic pain. Makes healthy food choices and struggles with losing weight. Denies any other concerns today. ALLERGIES Allergies Allergen Reactions [place] [Hydrocodone-Acetaminophen] Itching and Headache Cyclobenzaprine Headache and [...] ORAL) Take 2,000 Unit by mouth daily. codeine-guaiFENesin (guaiFENesin AC) 10-100 mg/5 mL liquid Take 5 mL by mouth 3 (three) times a dayas needed for cough. 118 mL 0 diclofenac (VOLTAREN) 75 mg EC tablet Take [...] (three) times a day. 21 tablet 0 metFORMIN XR (GLUCOPHAGE XR) 500 mg 24 hr tablet TAKE 1 TABLET BY MOUTH DAILY WITH BREAKFAST 90 tablet 0 montelukast (SINGULAIR) 10 mg tablet Take [...] needed for muscle spasms. 10 tablet 0 sodium chloride (OCEAN NASAL) 0.65 % nasal spray Administer 1 spray into each nostril as needed forrhinitis. 15 mL 12 SUMAtriptan succinate 6 mg/0.5 mL needle-free injector Inject 0.5 mL (6 mg total) under the skin asneeded (migraine headache). tiZANidine (ZANAFLEX) 2 mg tablet Take 1 [...] Low back pain Lupus (systemic lupus erythematosus) ([facility]) Migraine Murmur, cardiac Obesity Osteoarthritis Osteoarthritis Pneumonia Sleep apnea Tooth loose Upper back pain Past Surgical History: Procedure Laterality Date SECTION three ECTOPIC SURGERY two GASTRECTOMY sleeve HYSTERECTOMY 2008 COMPLETE INJECTION BLOCK NERVE KNEE Left Genicular Left 08/25/2022 Performed by Albert Jones MD at [facility] INJECTION BLOCK NERVE KNEE right genicular Right 05/16/2021 Performed by Albert Jones MD at [facility] JOINT REPLACEMENT Right 02/09/2021 LYMPH NODE DISSECTION bilateral axillae x2 OOPHORECTOMY Bilateral 2008 RADIO FREQUENCY ABLATION L 4/5,5/S1 Left 08/04/2016 Performed by Albert Jones MD at [facility] RADIO FREQUENCY ABLATION L4/5,5/S1 Right 08/21/2016 Performed by Albert Jones MD at [facility] REPLACEMENT TOTAL KNEE Right 2020 TUBAL [...] on file Interpersonal Safety: Not on file Social History Tobacco Use Smoking Status Never Smokeless Tobacco Never REVIEW OF SYSTEMS Review of Systems Constitutional: Positive for fatigue. HENT: Negative. Respiratory: Negative. Cardiovascular: Negative. Gastrointestinal: Negative. Genitourinary: Negative. Musculoskeletal: Positive for arthralgias and joint swelling. Neurological: Negative. Psychiatric/Behavioral: Negative. PHYSICAL EXAMINATION Vitals and rest of the physical examination were unable to be completed by the provider today as the patient presented via telephone/video. ASSESSMENT & PLAN Encounter Diagnosis Name Primary? Pre-diabetes Yes I will plan to have the patient return in approximately PRN for a follow up. The patient was given standard warnings and instructed to call the office with any questions or concerns. A total of approximately 10 minutes spent with the patient today using the Telehealth/video software in [employer]. This was performed en lieu of a [id number]-[id number] office visit due to the current COVID-19 pandemic. JILL Bower APRN-CNP 03/06/232318 [facility] Evaluation note* Encounter Date Diagnosis Assessment Notes [...] appointment with cardiology for blood pressure medications [facility] Other Evaluation noteNo assessment information available [facility] Work Phone: evaluation noteNo [facility] Other evaluation note* Diagnosis Onset Date Resolution Status Hx of total knee arthroplasty acute Hypertension acute Impaired mobility and activities of daily living acute Knee osteoarthritis acute Morbid obesity with BMI of 50.0-59.9, adult acute Prediabetes acute SLE (systemic lupus erythematosus related syndrome) acute [facility] Work Phone: Evaluation note* Diagnosis Encounter for weight loss counseling documented in this encounter [facility] Healthcare[facility]* Diagnosis ASCUS with positive high risk HPV cervical Vasomotor symptoms due to menopause documented in this encounter [facility] Healthcare[facility]* Diagnosis Lumbosacral spondylosis without myelopathy Primary osteoarthritis of left knee documented in this encounter [facility]* Diagnosis Gastroesophageal reflux disease without esophagitis Esophageal reflux documented in this encounter [facility]* Diagnosis Spondylosis without myelopathy or radiculopathy, lumbosacral region- Primary [facility]* Diagnosis Medication refill Issue of repeat prescriptions documented in this encounter [facility]* Diagnosis Pre-diabetes- Primary Other abnormal glucose documented in this encounter [facility]* Diagnosis Pre-diabetes- Primary Other abnormal glucose [facility] Diagnosis Medication refill Issue of repeat prescriptions Other forms of systemic lupus erythematosus, unspecified organ involvement status ([facility]) documented in this encounter [facility]* Diagnosis Other forms of systemic lupus erythematosus, unspecified organ involvement status ([facility])- Primary Pre-diabetes Other abnormal glucose documented in this encounter [facility]* Diagnosis Pre-diabetes Other abnormal glucose documented in this encounter [facility]* Diagnosis Pre-diabetes Other abnormal glucose documented in this encounter [facility]* Diagnosis Systemic lupus erythematosus, unspecified SLE type, unspecified organ involvement status ([facility]) documented in this encounter [facility]* Diagnosis Acute cystitis without hematuria- Primary documented in this encounter [facility]* Diagnosis Other forms of systemic lupus erythematosus, unspecified organ involvement status ([facility]) documented in this encounter [facility]* Diagnosis Systemic lupus erythematosus, unspecified SLE type, unspecified organ involvement status ([facility])- Primary Primary osteoarthritis of left knee Spondylosis without myelopathy or radiculopathy, lumbar region Spondylosis without myelopathy or radiculopathy, lumbosacral region documented in this encounter [facility]* Diagnosis Other forms of systemic lupus erythematosus, unspecified organ involvement status ([facility]) documented in this encounter [facility]* Diagnosis Pre-diabetes Other abnormal glucose documented in this encounter [facility]* Diagnosis Systemic lupus erythematosus, unspecified SLE type, unspecified organ involvement status ([facility]) documented in this encounter [facility]* Diagnosis Primary osteoarthritis of left knee- Primary documented in this encounter [facility]* Diagnosis 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- Primary documented in this encounter [facility]* Diagnosis Pre-operative clearance- Primary Unspecified pre-operative examination Abnormal EKG Nonspecific abnormal electrocardiogram (ECG) (EKG) documented in this encounter [facility]* Diagnosis Pre-diabetes- Primary Other abnormal glucose Urinary frequency Preventative health care Routine general medical examination at a health care facility Reactive depression Other migraine without status migrainosus, not intractable BV (bacterial vaginosis) Unspecified vaginitis and vulvovaginitis Preventative health care Routine general medical examination at a health care facility documented in this encounter [facility]* Diagnosis Primary osteoarthritis of left knee- Primary documented in this encounter [facility]* Diagnosis Gastroesophageal reflux disease without esophagitis- Primary Esophageal reflux Urinary frequency Chest discomfort Other chest pain Pre-diabetes Other abnormal glucose Chest discomfort Other chest pain documented in this encounter [facility]* Diagnosis Other forms of systemic lupus erythematosus, unspecified organ involvement status ([facility]) documented in this encounter [facility]* Diagnosis Acute cystitis without hematuria- Primary documented in this encounter [facility]* Diagnosis Lupus ([facility])- Primary Systemic lupus erythematosus Lumbosacral spondylosis without myelopathy Class 3 severe obesity due to excess calories without serious comorbidity with body mass index (BMI) of 50.0 to 59.9 in adult ([facility]) Primary osteoarthritis of left knee Medication monitoring encounter Encounter for therapeutic drug monitoring documented in this encounter [facility]* Diagnosis Acute cystitis without hematuria- Primary documented in this encounter [facility]* Diagnosis Hepatic steatosis- Primary Other chronic nonalcoholic liver disease documented in this encounter [facility]* Diagnosis Epigastric pain- Primary Abdominal pain, epigastric Hepatic steatosis Other chronic nonalcoholic liver disease Other forms of systemic lupus erythematosus, unspecified organ involvement status ([facility]) documented in this encounter [facility]* Diagnosis Medication refill Issue of repeat prescriptions documented in this encounter [facility]* Diagnosis Systemic lupus erythematosus, unspecified SLE type, unspecified organ involvement status ([facility]) documented in this encounter [facility]* Diagnosis Systemic lupus erythematosus, unspecified SLE type, unspecified organ involvement status ([facility])- Primary documented in this encounter [facility]* Diagnosis Other forms of systemic lupus erythematosus, unspecified organ involvement status ([facility]) documented in this encounter [facility]* Diagnosis Gastroesophageal reflux disease without esophagitis Esophageal reflux documented in this encounter [facility]* Diagnosis Essential hypertension Unspecified essential hypertension documented in this encounter [facility]* Diagnosis Pre-operative clearance- Primary Unspecified pre-operative examination Abnormal EKG Nonspecific abnormal electrocardiogram (ECG) (EKG) Pre-operative cardiovascular examination Essential hypertension Unspecified essential hypertension documented in this encounter [facility]* Diagnosis Primary osteoarthritis of left knee- Primary documented in this encounter [facility]* Diagnosis Primary osteoarthritis of left knee- Primary documented in this encounter [facility]* Diagnosis Chronic pain of left knee- Primary Arthritis of left knee documented in this encounter [facility]* Diagnosis Gastroesophageal reflux disease without esophagitis Esophageal reflux documented in this encounter [facility]* Diagnosis Other forms of systemic lupus erythematosus, unspecified organ involvement status ([facility]) documented in this encounter [facility]* Diagnosis Pre-diabetes- Primary Other abnormal glucose documented in this encounter [facility]* Diagnosis Lumbosacral spondylosis without myelopathy- Primary documented in this encounter [facility]* Diagnosis Disc displacement, 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 Chronic bilateral low back pain, unspecified whether sciatica present documented in this encounter [facility]* Diagnosis Primary osteoarthritis of left knee- Primary documented in this encounter [facility]* Diagnosis Gastroesophageal reflux disease without esophagitis Esophageal reflux documented in this encounter [facility]* Diagnosis Other acute pulmonary embolism, unspecified whether acute cor pulmonale present ([facility])- Primary documented in this encounter [facility]* Diagnosis Primary osteoarthritis of left knee documented in this encounter [facility]* Diagnosis Acute pulmonary embolism with acute cor pulmonale, unspecified pulmonary embolism type ([facility])- Primary documented in this encounter [facility]* Diagnosis Mild intermittent asthma without complication- Primary Other acute pulmonary embolism, unspecified whether acute cor pulmonale present ([facility]) Right lower lobe lung mass Pulmonary hypertension ([facility]) Other chronic pulmonary heart diseases documented in this encounter [facility]* Diagnosis Essential hypertension- Primary Unspecified essential hypertension documented in this encounter [facility]* Diagnosis Other migraine without status migrainosus, not intractable- Primary Muscle spasm Spasm of muscle Primary osteoarthritis of left knee documented in this encounter [facility]* Diagnosis Abscess- Primary Cellulitis and abscess of unspecified site Preventative health care Routine general medical examination at a health care facility Lumbosacral spondylosis without myelopathy Acute cystitis without hematuria Encounter for screening mammogram for malignant neoplasm of breast Screen for colon cancer Special screening for malignant neoplasms, colon Primary osteoarthritis of left knee Prediabetes Other abnormal glucose Essential hypertension Unspecified essential hypertension BMI 50.0-59.9, adult ([facility]) documented in this encounter [facility]* Diagnosis Systemic lupus erythematosus, unspecified SLE type, unspecified organ involvement status ([facility]) Abscess Cellulitis and abscess of unspecified site Gastroesophageal reflux disease without esophagitis Esophageal reflux Medication refill Issue of repeat prescriptions documented in this encounter [facility]* Diagnosis Preventative health care- Primary Routine general medical examination at a health care facility Fall, initial encounter Acute pain of left knee Flank pain Abdominal pain, unspecified site Urinary frequency Vitamin D deficiency SOPHIE (obstructive sleep apnea) Obstructive sleep apnea (adult) (pediatric) Morbid obesity with BMI of 50.0-59.9, adult ([facility]) Prediabetes Other abnormal glucose Fall, initial encounter Acute pain of left knee documented in this encounter [facility]* Diagnosis Dysuria- Primary Urinary urgency Urgency of urination documented in this encounter [facility]* Diagnosis Possible exposure to STI- Primary documented in this encounter [facility]* Diagnosis Systemic lupus erythematosus, unspecified SLE type, unspecified organ involvement status ([facility]) documented in this encounter [facility]* Diagnosis Medication refill Issue of repeat prescriptions documented in this encounter [facility]* Diagnosis Medication refill Issue of repeat prescriptions documented in this encounter [facility]* Diagnosis Gastroesophageal reflux disease without esophagitis Esophageal reflux Essential hypertension Unspecified essential hypertension documented [facility] encounter [facility]* Diagnosis Pre-diabetes- Primary Other abnormal glucose [facility] N[facility]ative - Reported* Type Description Date Medical History asthma Medical History Hypertension Medical History neuropathy Medical History migraine headache Surgical History knee replacement Right 2020 Surgical History Gastric Sleeve 2018 Hospitalization History see above [employer] Other InstructionsNot on filedocumented in this encounter [...] Referred By Chris benton Referred To Contact Pain Medicine Diagnoses Primary osteoarthritis of left knee Spondylosis without myelopathy or radiculopathy, lumbar region Spondylosis without myelopathy or radiculopathy, lumbosacral region Systemic lupus erythematosus, unspecified SLE type, unspecified organ involvement status ([facility]) Bong Phelan APRN-CNP [address], [facility] [address] [place] [address] Karen Lombardi MD [address] [place] [address] Referral ID Status Reason Start Date Expiration Date V isits Requested Visits Authorized [id number] Pending Review 07/18/2023 07/17/2024 1 1 [facility] Consultation (Routine) - Pending Review Specialty Diagnoses / Procedures Referred By Chris benton Referred To Contact Cardiology Diagnoses Pre-operative clearance Abnormal EKG Bong Phelan APRN-CNP [address], [facility] [address] [place] [address] Venus Orlando APRN-[employer] [address] [place] [address] Referral ID Status Reason Start Date Expiration Date Visits Requested Visits Authorized [id number] Pending Review Specialty Services Required 08/21/2023 08/20/2024 1 1 [facility] Consultation (Routine) - Pending Review Specialty Diagnoses / Procedures Referred By Chris benton Referred To Contact Orthopedic Surgery Diagnoses Chronic pain of left knee Arthritis of left knee Bong Phelan APRN-CNP [address], [address] [phone] Meño Sy MD [address] [place] [address] Referral ID Status Reason Start Date Expiration Date Visits Requested Visits Authorized [id number] Pending Review Specialty Services Required 05/24/2023 05/23/2024 1 1 [facility] Summary Purpose Family History Relationship Condition Age at Onset Recorded Date/T [...] mother Unknown Malignant neoplasm Unknown Advance Directives Date Activated Date Inactivated Comments 12/13/2023 7:55 AM 12/14/2023 8:30 PM Date Activated Date Inactivated Comments 12/12/2023 9:56 PM 12/13/2023 7:03 AM Date Activated Date Inactivated Comments 12/07/2023 8:21 AM 12/09/2023 8:48 PM Date Activated Date Inactivated Comments 12/13/2023 7:55 AM Advance Directive Response Recorded Date/ Time Advance Directives No November 06, 2023 1:35pm Date Activated Date Inactivated Comments 12/13/2023 7:55 AM 12/14/2023 8:30 PM Date Activated Date Inactivated Comments 12/12/2023 9:56 PM 12/13/2023 7:03 AM Date Activated Date Inactivated Comments 12/07/2023 8:21 AM 12/09/2023 8:48 PM Chief Complaint and Reason for Visit Chief Complaint left knee degenrativ e arthritis s/p tka left knee degenrative arthritis s/p tka left knee degenrative arthritis s/p tka Reason for Visit Hx of total knee art hroplasty Hypertension Impaired mobility and activities of daily living Knee osteoarthritis Morbid obesity with BMI of 50.0-59.9, adult Prediabetes SLE (systemic lupus erythematosus related syndrome) Reason for Referral Specialty Diagnoses / Procedures Referred By Contac t Referred To Contact Rehabilitation Diagnoses Chronic bilateral low back pain, unspecified whether sciatica present Gina Bourgeois [employer] [address] [place] [address] [facility] [address] [place] [phone] Referral ID Status Reason Start Date Expiration Date Visits Requested Visits Authorized [id number] Authorized Specialty Services Required 10/30/2023 10/29/2024 1 1 Specialty Diagnoses / Procedures Referred By Contac t Referred To Contact Radiology Diagnoses Chronic bilateral low back pain, unspecified whether sciatica present Procedures MR lumbar spine without contrast Gina Bourgeois [employer] [address] [place] [address] Referral ID Status Reason Start Date Expiration Date V isits Requested Visits Authorized [id number] Authorized 10/30/2023 10/29/2024 1 1 Specialty Diagnoses / Procedures Referred By Contac t Referred To Contact Radiology Diagnoses Epigastric pain Hepatic steatosis Procedures MRCP with MRI abdomen with and without contrast Bong Phelan [employer] [address], [address] [address] Referral ID Status Reason Start Date Expiration Date V isits Requested Visits Authorized [id number] Authorized 05/04/2023 05/03/2024 1 1 Specialty Diagnoses / Procedures Referred By Contac t Referred To Contact Radiology Diagnoses Acute cystitis without hematuria Procedures CT abdomen and pelvis without contrast Bong Phelan APRN-CNP [address], [address] [address] Referral ID Status Reason Start Date Expiration Date V isits Requested Visits Authorized [id number] Authorized 05/01/2023 04/30/2024 1 1 Specialty Diagnoses / Procedures Referred By Contac t Referred To Contact Diagnoses Preventative health care Procedures ECG 12 lead Bong Phelan APRN-CNP [address], [facility] [address] [place] [address] Referral ID Status Reason Start Date Expiration Date V isits Requested Visits Authorized [id number] Pending Review 08/16/2023 08/15/2024 1 1 Additional Source Comments INFORMATION SOURCE (unrecogn ized section and content) DATE CREATED AUTHOR 03/31/2018 [facility] DATE CREATED AUTHOR AUTHOR'S ORGANIZ ATION 04/11/2021 [facility] DATE CREATED AUTHOR AUTHOR'S ORGANIZ ATION 11/12/2022 [facility] DATE CREATED AUTHOR AUTHOR'S ORGANIZ ATION 01/12/2024 [facility] DATE CREATED AUTHOR AUTHOR'S ORGANIZ ATION 02/07/2024 [facility] DATE CREATED AUTHOR AUTHOR'S ORGANIZ ATION 02/13/2024 [facility] DATE CREATED AUTHOR AUTHOR'S ORGANIZ ATION 04/04/2024 [facility] DATE CREATED AUTHOR AUTHOR'S ORGANIZ ATION 07/22/2024 [facility] DATE CREATED AUTHOR AUTHOR'S ORGANIZ ATION 08/10/2024 [facility] Goals (unrecognized section and content) Goals [...] VISIT (unrecogniz ed section and content) Reason Comments discuss weight loss Reason Comments Abnormal Pap Smear Reason Comments Med Refill Reason Onset Date Comments Medication issue 06/28/2023 Reason Onset Date Comments Med Refill 03/09/2023 Reason Onset Date Comments Med Refill 07/18/2023 Reason Comments Annual Exam L knee replacement c learance Urinary Frequency Lower back pain, is able to void completely but still feel like she has to go Reason Onset Date Comments Xray result 04/06/2023 Reason Comments 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 skelton d treatments Reason Onset Date Comments Qulipta samples 04/06/2023 Reason Onset Date Comments Med Refill 05/07/2023 Reason Onset Date Comments Med Refill 09/10/2023 Reason Onset Date Comments Med Refill 05/17/2023 Reason Comments Pre-op Exam PREOP CLEARANCE LEFT TOTAL KNEE REPLACEMENT Hypertension Shortness of Breath Specialty Diagnoses / Procedures Referred By Contac t Referred To Contact Cardiology Diagnoses Pre-operative clearance Abnormal EKG Bong Phelan, PROFESSOR OF GERMAN-ANCHOR TACK PULLER [address], [facility] [address] [place] [address] Venus Orlando, PROFESSOR OF GERMAN-ANCHOR TACK PULLER [address] [place] [address] Referral ID Status Reason Start Date Expiration Date Visits Requested Visits Authorized [id number] Pending Review Specialty Services Required 08/21/2023 08/20/2024 1 1 Reason Onset Date Comments Med Refill 05/21/2023 Reason Onset Date Comments Med Refill 06/11/2023 Reason Comments Knee Pain Left Reason Onset Date Comments Blood Clot(s) 12/07/2023 Reason Onset Date Comments medication order 12/14/2023 [...] completed Specialty Diagnoses / Procedures Referred By Contac t Referred To Contact Pulmonary Medicine Diagnoses Other acute pulmonary embolism, unspecified whether acute cor pulmonale present ([facility] Bong Phelan APRN-ANCHOR TACK PULLER [address], [facility] [address] [place] [address] Phone: tel: fax: Neena Del Castillo, [address] [place] [address] Phone: tel: fax: Referral ID Status Reason Start Date Expiration Date Visits Requested Visits Authorized [id number] Pending Review Specialty Services Required 12/19/2023 12/18/2024 1 1 Reason Comments Follow-up 3 mo f/u -labs-IP PULMONARY EMBOLISM Reason Onset Date Comments Med Refill 02/12/2024 Reason Comments Mass X2 weeks, Left side under bra line, pus with blood is draining Reason Comments Knee Injury Patient states that since fall 07/14/2024 she has experienced severe knee pain. Dizziness Patient states she i s experiencing blurred vision and dizziness frequently. Headache Patient records head ache since 04/2024. Diabetes Patient would like t o request A1C check. Reason Onset Date Comments Med Refill 09/10/2024 Reason Comments Med Refill Reason Onset Date Comments Transition Of Care 12/17/2023 Reason Onset Date Comments Med Refill 10/07/2024 Care Teams (unrecognized sec tion and content) Team Status: Active Member Role Status Dates Jordyn Barrera APRN ASSISTANT STATISTICIAN-C Primary Care Provider Active Team Status: Inactive Member Role Status Dates Jordyn Barrera APRN ASSISTANT STATISTICIAN-C Primary Care Provider Active Start: November 06, 2023 End: November 16, 2023 Jonny Bentley MD Admit Provid er, Attending Provider Active Start: November 06, 2023 End: November 16, 2023 Team Status: Active Member Role Status Dates Jordyn Barrera APRN ASSISTANT STATISTICIAN-C Primary Care Provider Active Start: November 07, 2023 Jonny Bentley MD Admit Provid er, Other Provider Active Start: November 07, 2023 Mone Brennan APRN Attending Provider Active Start: November 07, 2023 Team Status: Active Member Role Status Dates Jordyn Barrera APRN ASSISTANT STATISTICIAN-C Primary Care Provider Active Start: November 14, 2023 Jonny Bentley MD Admit Provid er, Attending Provider, Other Provider Active Start: November 14, 2023 Sales Management Intern Relationship Specialty Start Date End Date Bong Phelan MD [address] [place] [phone] PCP - General Family Medicine 07/18/23 Sales Management Intern Relationship Specialty Start Date End Date Bong Phelan MD [address] [phone] PCP - General Family Medicine 07/18/23 Sales Management Intern Relationship Specialty Start Date End Date Bong Phelan MD [address] [phone] PCP - General [facility] Medicine 07/18/23 Sales Management Intern Relationship Specialty Start Date End Date Bong Phelan MD [address] [phone] PCP - General [facility] Medicine 07/18/23 Sales Management Intern Relationship Specialty Start Date End Date Bong Phelan APRN-ANCHOR TACK PULLER [address] [phone] PCP - General [facility] Medicine 05/05/22 Sales Management Intern Relationship Specialty Start Date End Date Bong Phelan APRN-ANCHOR TACK PULLER [address] [place] [address] PCP - General Family Medicine 05/05/22 Sales Management Intern Relationship Specialty Start Date End Date HzaneBong leary APRN-ANCHOR TACK PULLER [address], [place] [address] PCP - General Family Medicine 05/05/22 Sales Management Intern Relationship Specialty Start Date End Date [place] APRN-ANCHOR TACK PULLER [address], [place] [address] PCP - General [facility] Medicine 05/05/22 Sales Management Intern Relationship Specialty Start Date End Date ZhaneBong leary APRN-ANCHOR TACK PULLER [address], [place] [address] PCP - General [facility] Medicine 05/05/22 Sales Management Intern Relationship Specialty Start Date End Date [place] APRN-ANCHOR TACK PULLER [address], [place] [address] PCP - General Family Medicine 05/05/22 Sales Management Intern Relationship Specialty Start Date End Date ZhaneBong APRN-ANCHOR TACK PULLER [address], [place] [address] PCP - General [facility] Medicine 05/05/22 Sales Management Intern Relationship Specialty Start Date End Date ZhaneBong leary APRN-ANCHOR TACK PULLER [address], [place] [address] PCP - General Family Medicine 05/05/22 Sales Management Intern Relationship Specialty Start Date End Date Bong Phelan APRNLisaANCHOR TACK PULLER [address], [facility] [address] [place] [address] PCP - General Family Medicine 05/05/22 Sales Management Intern Relationship Specialty Start Date End Date [place] APRN-ANCHOR TACK PULLER [address], [facility] [address] [place] [address] PCP - General Family Medicine 05/05/22 Sales Management Intern Relationship Specialty Start Date End Date Bong Phelan APRNLisaANCHOR TACK PULLER [address], [facility] [address] [place] [address] PCP - General Family Medicine 05/05/22 Sales Management Intern Relationship Specialty Start Date End Date Bong Phelan APRNLisaANCHOR TACK PULLER [address], [facility] [address] [place] [address] PCP - General Family Medicine 05/05/22 Sales Management Intern Relationship Specialty Start Date End Date Bong Phelan APRN-ANCHOR TACK PULLER [address], [facility] [address] [place] [address] PCP - General Family Medicine 05/05/22 Sales Management Intern Relationship Specialty Start Date End Date Bong Phelan APRN-ANCHOR TACK PULLER [address], [facility] [address] [place] [phone] PCP - General Family Medicine 05/05/22 Sales Management Intern Relationship Specialty Start Date End Date [place] APRNLisaANCHOR TACK PULLER [address], [facility] [address] PCP - General Family Medicine 05/05/22 Sales Management Intern Relationship Specialty Start Date End Date [place], Bong YULISALisaANCHOR TACK PULLER [address], [facility] [address] [place] [address] PCP - General Family Medicine 05/05/22 Sales Management Intern Relationship Specialty Start Date End Date ZhaneBong leary APRNLisaANCHOR TACK PULLER [address], [place] [address] PCP - General Family Medicine 05/05/22 Sales Management Intern Relationship Specialty Start Date End Date [place] APRNLisaANCHOR TACK PULLER [address], [place] [address] PCP - General Family Medicine 05/05/22 Sales Management Intern Relationship Specialty Start Date End Date Zhane JILL Christianson [address], [facility] [address] PCP - General Family Medicine 05/05/22 Sales Management Intern Relationship Specialty Start Date End Date [place], Bong YULISA-ANCHOR TACK PULLER [address], [place] [phone] PCP - General Family Medicine 05/05/22 Sales Management Intern Relationship Specialty Start Date End Date [place], ROSA ChristiansonN-ANCHOR TACK PULLER [address], [place] [address] PCP - General Family Medicine 05/05/22 Sales Management Intern Relationship Specialty Start Date End Date Zhane, ROSA ChristiansonN-ANCHOR TACK PULLER [address], [place] [address] PCP - General Family Medicine 05/05/22 Sales Management Intern Relationship Specialty Start Date End Date Zhane, ROSA ChristiansonN-ANCHOR TACK PULLER [address], [place] [address] PCP - General Family Medicine 05/05/22 Sales Management Intern Relationship Specialty Start Date End Date [place], ROSA ChristiansonN-ANCHOR TACK PULLER [address], [place] [address] PCP - General Family Medicine 05/05/22 Sales Management Intern Relationship Specialty Start Date End Date ZhaneBong leary YULISA-ANCHOR TACK PULLER [address], [place] [address] PCP - General Family Medicine 05/05/22 Sales Management Intern Relationship Specialty Start Date End Date ZhaneBong YULISA-ANCHOR TACK PULLER [address], [place] [address] PCP - General Family Medicine 05/05/22 Sales Management Intern Relationship Specialty Start Date End Date [place] APRN-ANCHOR TACK PULLER [address], [facility] [address] [place] [address] PCP - General Family Medicine 05/05/22 Sales Management Intern Relationship Specialty Start Date End Date [place] le[place] APRN-ANCHOR TACK PULLER [address], [facility] [address] [place] [address] PCP - General Family Medicine 05/05/22 Sales Management Intern Relationship Specialty Start Date End Date [place] le[place] APRN-ANCHOR TACK PULLER [address], [place] [address] PCP - General Family Medicine 05/05/22 Sales Management Intern Relationship Specialty Start Date End Date ZhnaeBong APRN-ANCHOR TACK PULLER [address], [place] [address] PCP - General Family Medicine 05/05/22 Sales Management Intern Relationship Specialty Start Date End Date ZhaneBong leary APRN-ANCHOR TACK PULLER [address], [place] [address] PCP - General Family Medicine 05/05/22 Sales Management Intern Relationship Specialty Start Date End Date [place] le[place] APRN-ANCHOR TACK PULLER [address], [place] [address] PCP - General Family Medicine 05/05/22 Sales Management Intern Relationship Specialty Start Date End Date [place] APRN-ANCHOR TACK PULLER [address], [facility] [address] [place] [address] PCP - General Family Medicine 05/05/22 Sales Management Intern Relationship Specialty Start Date End Date [place] APRN-ANCHOR TACK PULLER [address], [facility] [address] [place] [address] PCP - General [facility] Medicine 05/05/22 Sales Management Intern Relationship Specialty Start Date End Date Zhane, Bong PROFESSOR OF GERMAN-ANCHOR TACK PULLER [address], [facility] [address] [place] [address] PCP - General Family Medicine 05/05/22 Sales Management Intern Relationship Specialty Start Date End Date Zhane, Bong PROFESSOR OF GERMAN-ANCHOR TACK PULLER [address], [place] [address] PCP - General [facility] Medicine 05/05/22 Sales Management Intern Relationship Specialty Start Date End Date [place], ROSA ChristiansonN-ANCHOR TACK PULLER [address], [place] [address] PCP - General [facility] Medicine 05/05/22 Sales Management Intern Relationship Specialty Start Date End Date [place], Bong PROFESSOR OF GERMAN-ANCHOR TACK PULLER [address], [place] [address] PCP - General Family Medicine 05/05/22 Sales Management Intern Relationship Specialty Start Date End Date Zhane, Bong PROFESSOR OF GERMAN-ANCHOR TACK PULLER [address], [address] [phone] PCP - [facility] 05/05/22 Sales Management Intern Relationship Specialty Start Date End Date Zhane MARCUS ChristiansonANCHOR TACK PULLER [address], [address] [address] PCP - [facility] 05/05/22 Sales Management Intern Relationship Specialty Start Date End Date Bong Phelan APRN-CNP [address], [address] [phone] PCP - [facility] 05/05/22 Sales Management Intern Relationship Specialty Start Date End Date Bong [facility] [address], [address] [address] PCP - [facility] 05/05/22 FOR RECORDS PERTAINING TO PATIENTS [...] BE BASED ON THE PRIMARY CLINICAL RECORDS. [facility] [employer] [facility]. provides no warranty or guarantee of the accuracy or completeness of information in this document.
--- NOTE | 2024-10-22 19:59 | XR_ITS ---
The [address] [address] Patient Name: GENNARO ADKINS MRN: [id number] date: 1975 Sex: F Assigned Patient Location: ED.MAIN Current Patient Location: ER Accession/Order Number: [id number] Exam Date: 10/22/2024 21:21 Report Date: 10/22/2024 21:22 At the request of: VELIA ELDRIDGE Procedure: XR shoulder LT min 2V 3 views left shoulder plain film HISTORY: Fell. Left shoulder pain COMPARISON: None ACUTE FINDINGS: None DEGENERATIVE CHANGE: Mild degeneration. Marginal spurring SOFT TISSUE FINDINGS: Unremarkable JOINT EFFUSION: None POSTOP CHANGES: None BONY MINERALIZATION: Adequate XR/XR shoulder LT min 2V IMPRESSION: No acute findings. Impression dictated by: Antonio Castro M.D. 10/22/2024 9:22 PM Dictation Location: [place] [address] Electronically authenticated by: [id number] Y Date: 10/22/2024 21:22
--- NOTE | 2024-10-22 19:59 | CT_ITS ---
The [address] [address] Patient Name: GENNARO ADKINS MRN: [id number] date: 1975 Sex: F Assigned Patient Location: ED.MAIN Current Patient Location: ER Accession/Order Number: [id number] Exam Date: 10/22/2024 21:14 Report Date: 10/22/2024 21:21 At the request of: VELIA ELDRIDGE Procedure: CT chest w con CT Chest with contrast TECHNIQUE: Axial imaging with 2-D reconstruction. 100 cc of Omnipaque 300The CT exam was performed using one or more the following dose reduction techniques: Automated exposure control, adjustment of the MA and/or Kv according to patient size, or use of the iterative reconstruction technique. History: Fell. Right-sided rib pain. COMPARISON: None THYROID: Unremarkable TRACHEA AND BRONCHI: Patent ESOPHAGUS: Small hiatal hernia. HEART: Cardiomegaly. PERICARDIAL EFFUSION: None CORONARY ARTERY CALCIFICATION: None MEDIASTINUM: No adenopathy. No pneumoperitoneum. No mediastinal hematoma. PULMONARY SHAWANDA: No hilar mass or adenopathy is seen. THORACIC AORTA Unremarkable LUNG NODULE stable 3.3 cm lesion in the right lung base medially. Unchanged from prior examination 2009. LUNGS: Basilar atelectasis PLEURAL EFFUSION: None PNEUMOTHORAX: No pneumothorax seen. CHEST WALL: No abnormality AXILLA:Unremarkable BONY STRUCTURES Intact UPPER ABDOMEN: Gastric surgery changes. 1.6 cm left adrenal nodule. CT/CT chest w con IMPRESSION: No acute findings. Stable 3.3 cm lesion right lung base medially. Cardiomegaly. Small hiatal hernia. Impression dictated by: Antonio Castro M.D. 10/22/2024 9:21 PM [facility] [employer] Electronically authenticated by: [id number] Y Date: 10/22/2024 21:21
--- NOTE | 2024-10-22 19:59 | XR_ITS ---
The [place] [id number] Patient Name: GENNARO ADKINS MRN: [id number] date: 1975 Sex: F Assigned Patient Location: ER Current Patient Location: ER Accession/Order Number: [id number] Exam Date: 10/22/2024 21:22 Report Date: 10/22/2024 21:23 At the request of: VELIA ELDRIDGE Procedure: XR knee LT 3V 3 views left knee plain film COMPARISON: None HISTORY: Left knee injury ACUTE FINDINGS: No acute findings DEGENERATIVE CHANGE: Unremarkable SOFT TISSUE FINDINGS: Unremarkable JOINT EFFUSION: None POSTOP CHANGES: Unremarkable hardware of left knee arthroplasty. BONE MINERALIZATION: Adequate XR/XR knee LT 3V IMPRESSION: No acute findings Impression dictated by: Antonio Castro M.D. 10/22/2024 9:23 PM Dictation Location: [place] [address] Electronically authenticated by: [id number] Y Date: 10/22/2024 21:23
--- NOTE | 2024-10-22 19:59 | CT_ITS ---
The [address] [address] Patient Name: GENNARO ADKINS MRN: [id number] date: 1975 Sex: F Assigned Patient Location: ED.MAIN Current Patient Location: Accession/Order Number: [id number] Exam Date: 10/22/2024 21:11 Report Date: 10/22/2024 21:14 At the request of: VELIA ELDRIDGE Procedure: CT head/brain wo con Unenhanced head CT TECHNIQUE: Contiguous axial imaging of the head. The CT exam was performed using one or more the following dose reduction techniques: Automated exposure control, adjustment of the MA and/or Kv according to patient size, or use of the iterative reconstruction technique. COMPARISON: None HISTORY: Head injury. Patient on blood thinners VENTRICLES: Within normal limits ATROPHY: None BRAIN PARENCHYMA: Adequate tapia-white matter differentiation identified. HEMORRHAGE: None HERNIATION: No mass effect or herniation INFARCTION: No recent vascular distribution infarction is seen. EXTRA-AXIAL FLUID COLLECTIONS None MIDBRAIN: Unremarkable FRANCISCO: Unremarkable MEDULLA: Unremarkable SINUSES: Unremarkable ORBITS: Grossly unremarkable MASTOIDS: Unremarkable BONY STRUCTURES Intact ADDITIONAL FINDINGS: CT/CT head/brain wo con IMPRESSION: No acute findings. Impression dictated by: Antonio Castro M.D. 10/22/2024 9:14 PM Dictation Location: [place] [address] Electronically authenticated by: [id number] Y Date: 10/22/2024 21:14
--- NOTE | 2024-10-22 20:09 | ED_ITS ---
HPI HPI - Fall General Chief Complaint: Fall Stated Complaint: FELL Time Seen by Provider: 10/22/24 19:52 Source: patient Mode of arrival: Wheelchair History of Present Illness HPI Narrative: HPI: Patient is a 49-year-old female anticoagulated on Xarelto who presents after a fall that occurred last night. She reports slipping in the shower, striking her forehead on the soap dish, and landing primarily on her right side. She also twisted her left knee and left shoulder during the fall. Today she has persistent right-sided chest pain, worsened with deep inspiration. She denies loss of consciousness, dizziness, lightheadedness, nausea, vomiting, or visual changes. She denies neck, back, lumbar, or hip pain, and reports no numbness, tingling, or focal neurological deficits. No focal weakness noted on exam. Related Data Home Medications ?Medication ?Instructions ?Recorded ?Confirmed amlodipine 10 mg tablet 10 mg PO DAILY 10/22/2410/10 cholecalciferol (vitamin D3) 50 50 mcg PO DAILY 10/22/24 mcg (2,000 unit) capsule citalopram 20 mg tablet 20 mg PO DAILY 10/22/2410/10 duloxetine 60 mg capsule,delayed 60 mg PO DAILY 10/22/24 release hydroxyzine pamoate 50 mg capsule 50 mg PO BID 5 10/22/24 losartan 25 mg tablet 25 mg PO DAILY 10/22/2410/10 omeprazole 20 mg capsule,delayed 20 mg PO DAILY 10/22/24 release rivaroxaban 20 mg tablet (Xarelto) 20 mg PO DAILY 10/1010/22/24 topiramate 50 mg tablet 50 mg PO Q12H 10/22/2410/22 Allergies Allergy/AdvReac Type Severity Reaction Status Date / Time acetaminophen (From [place]) Allergy Severe Verified 10/10/22 18:20 aloe vera (From Flexall) Allergy Severe Verified 10/10/22 18:20 hydrocodone (From [place]) Allergy Severe Verified 10/10/22 18:20 menthol (From Flexall) Allergy Severe Verified 10/10/22 18:20 vitamin E (d-alpha Allergy Severe Verified 08/01/23 18:20 tocopherol) (From Flexall) Opioid HPI Opioid Management Most Recent Pain and Opioid Data: Last Pain Scale 9 10/22/24, 20:27 Last MAR Pain Assessment 10/22/24, 20:27 [facility] Medical History (Updated 10/22/24 @ 20:27 by JAZMYN MOCK) Pulmonary embolism ?I26.99 - Other pulmonary embolism without acute cor pulmonale (ICD-10) Lupus Surgical History (Updated 10/22/24 @ 20:07 by Ainsley Oswald) History of left knee replacement ?Z96.652 - Presence of left artificial knee joint (ICD-10) Social History Smoking status: Never smoker Little interest or pleasure in doing things: not at all Feeling down, depressed, or hopeless: not at all Exam Narrative Exam Narrative: General: Obese female in mild discomfort. Neurologically intact; alert and oriented ?3. HEENT: Tenderness to frontal aspect of head consistent with reported head strike; no hemotympanum; pupils equal, round, and reactive to light; extraocular movements intact; otherwise unremarkable. Neck: No cervical spine tenderness; full range of motion. Back: No vertebral or lumbar tenderness. Cardiovascular: Regular rate and rhythm; distal pulses intact in all extremities. Lungs: Clear to auscultation bilaterally. Chest wall: Palpable tenderness over right lateral and posterior rib area. Abdomen: Soft, non-tender, non-distended; normal bowel sounds. Extremities: Left shoulder?tenderness over glenohumeral joint without clavicular or AC joint tenderness; full range of motion maintained. Left knee?anterior tenderness with history of knee replacement; patient ambulatory and bearing weight. No hip or pelvic tenderness. No additional abnormal findings. Neuro: no focal deficiet, normal mentation and interaction. Constitutional Vital Signs, click to edit/add: Last Vital Signs Temp 98.1 F 10/22/24 19:40 Pulse 83 10/22/24 21:31 Resp 14 10/22/24 21:31 BP 122/76 10/22/24 21:31 Pulse Ox 98 10/22/24 21:31 O2 Del Method Room Air 10/22/24 21:31 Course Vital Signs Vital signs: Vital Signs Temperature 98.1 F 10/22/24 19:40 Pulse Rate 93 H 10/22/24 19:40 Respiratory Rate 18 10/22/24 19:40 Blood Pressure 149/98 H 10/22/24 19:40 Pulse Oximetry 96 10/22/24 19:40 Temperature 98.1 F 10/22/24 19:40 Pulse Rate 83 10/22/24 21:31 Respiratory Rate 14 10/22/24 21:31 Blood Pressure 122/76 10/22/24 21:31 Pulse Oximetry 98 10/22/24 21:31 Oxygen Delivery Method Room Air 10/22/24 21:31 MDM - Fall MDM Narrative Medical decision making narrative: Given patient?s history of anticoagulation and head trauma, CT head was obtained to evaluate for intracranial hemorrhage. CT chest was ordered due to localized rib pain and concern for fracture or other intrathoracic injury, with patient noting prior rib fractures were not detected on X-ray. Left shoulder and left knee pain evaluated clinically; range of motion preserved and patient ambulatory. No evidence of acute neurovascular compromise. Plan included imaging review, pain control, and reassessment. CT of chest and head were negative for acute findings. X-ray of shoulder and knee are also negative for acute findings. Pain control was given to patient. She ambulate prior to discharge. Imaging was discussed with patient. She will follow up with her PCP and she was given strict return to ED precautions. Medical Records Attestation: I reviewed the patient's medical records. Lab Data Attestation: I reviewed the patient's lab results. Labs: Lab Results 10/22/24 Range/Units 20:15 WBC 4.5 (4.0-11.0) 10^3/uL RBC 4.31 (4.20-5.40) 10^6/uL Hgb 12.5 (12.0-16.0) g/dL Hct 38.9 (36.0-48.0) % MCV 90.3 (81.0-99.0) fL MCH 29.0 (26.7-34.0) pg MCHC 32.1 (29.9-35.2) g/dL RDW 14.8 (11.0-15.0) % Plt Count 306 (150-450) 10^3/uL MPV 9.0 L (9.5-13.5) fL Neut % (Auto) 48.3 (43.0-75.0) % Lymph % (Auto) 41.6 (20.5-60.0) % [place] % (Auto) 9.1 (1.7-12.0) % Eos % (Auto) 0.4 L (0.9-7.0) % Baso % (Auto) 0.4 (0.2-2.0) % Neut # (Auto) 2.2 (1.4-6.5) 10^3/uL Lymph # (Auto) 1.9 (1.2-3.8) 10^3/uL [place] # (Auto) 0.4 (0.3-0.8) 10^3/uL Eos # (Auto) 0.0 (0.0-0.7) 10^3/uL Baso # (Auto) 0.0 (0.0-0.1) 10^3/uL Abs Immat Gran (auto) 0.01 (0.00-0.03) 10^3/uL Imm/Tot Granulo (auto) 0.2 (0.0-0.5) % Sodium 141 (136-145) mmol/L Potassium 3.7 (3.5-5.1) mmol/L Chloride 107 (98-107) mmol/L Carbon Dioxide 24.7 (21.0-32.0) mmol/L Anion Gap 13.0 BUN 11.0 (7.0-18.0) mg/dL Creatinine 0.96 (0.55-1.02) mg/dL Est GFR ( Amer) >60 (>=60 mL/min/1.73m^2) Est GFR (Non-Af Amer) >60 (>=60 mL/min/1.73m^2) BUN/Creatinine Ratio 11.5 Glucose 97 (74-106) mg/dL Calcium 8.7 (8.5-10.1) mg/dL Discharge Plan Discharge Chief Complaint: Fall Clinical Impression: Fall, Head injury, Anticoagulant long-term use, Right knee sprain, Left shoulder strain Patient Disposition: Home, Self-Care Time of Disposition Decision: 22:10 Condition: Good Mode of Transportation: Private Vehicle Prescriptions / Home Meds: No Action amlodipine 10 mg tablet 10 mg PO DAILY cholecalciferol (vitamin D3) 50 mcg (2,000 unit) capsule 50 mcg PO DAILY citalopram 20 mg tablet 20 mg PO DAILY duloxetine 60 mg capsule,delayed release(DR/EC) 60 mg PO DAILY hydroxyzine pamoate 50 mg capsule 50 mg PO BID losartan 25 mg tablet 25 mg PO DAILY omeprazole 20 mg capsule,delayed release(DR/EC) 20 mg PO DAILY Xarelto 20 mg tablet 20 mg PO DAILY topiramate 50 mg tablet 50 mg PO Q12H Print Language: Romansh Instructions: Knee Sprain (DC), Head Injury (ED), Fall Prevention (ED) Additional Instructions: Follow-up with PCP in the next couple days.. Ambulate with your walker. Return with any worsening or concerning symptoms. Pain control with home medications Referrals: alber [Other] - As soon as possible Referral Note: If symptoms persist or worsen. Physician,Non-Staff, MD [Primary Care Provider] - 1 week Referral Note: Follow up with your PCP in 3-4 days. Return to ED with worse estelita or concerning symptoms rosy Discharge Date/Time: 10/22/24 22:24
[2024-10-22] MEDS: MORPHINE SULFATE 4 MG/ML VIAL IV (20:27)
[2024-10-22 20:33] LABS: Hematocrit 38.9 % (36.0-48.0); Hemoglobin 12.5 g/dL (12.0-16.0); Immature Granulocytes Abs Auto 0.01 10^3/uL (0.00-0.03); Immature Granulocytes Pct Auto 0.2 % (0.0-0.5); Lymphocytes Absolute Auto 1.9 10^3/uL (1.2-3.8); Mean Corpuscular HGB Conc 32.1 g/dL (29.9-35.2); Mean Corpuscular Hemoglobin 29.0 pg (26.7-34.0); Mean Corpuscular Volume 90.3 fL (81.0-99.0); Platelet Count 306 10^3/uL (150-450); Red Blood Count 4.31 10^6/uL (4.20-5.40); White Blood Count 4.5 10^3/uL (4.0-11.0)
[2024-10-22 20:42] LABS: Anion Gap 13.0; Blood Urea Nitrogen 11.0 mg/dL (7.0-18.0); Calcium 8.7 mg/dL (8.5-10.1); Carbon Dioxide 24.7 mmol/L (21.0-32.0); Chloride 107 mmol/L (98-107); Estimated GFR (African America >60 (>=60 mL/min/1.73m^2); Estimated GFR (Non-African Ame >60 (>=60 mL/min/1.73m^2); Glucose 97 mg/dL (74-106); Potassium 3.7 mmol/L (3.5-5.1); Sodium 141 mmol/L (136-145)
[2024-10-22 21:31] VITALS: BP 122/76; PULSE 83; O2SAT 98
[2024-10-22] MEDS: MORPHINE SULFATE 2 MG/ML SYRINGE IV (21:45)
== END 2024-10-22 22:24 | disposition home or self-care (01) ==
PROVIDERS: Physician Assistant; Emergency Provider Internal Medicine
DX: S09.90XA Unspecified injury of head, initial encounter (principal); Z79.01 Long term (current) use of anticoagulants; W18.2XXA Fall in (into) shower or empty bathtub, initial encounter; S83.8X2A Sprain of other specified parts of left knee, initial encounter; S46.812A Strain of other muscles, fascia and tendons at shoulder and upper arm level, left arm, initial encounter; X50.1XXA Overexertion from prolonged static or awkward postures, initial encounter; Y93.E1 Activity, personal bathing and showering; R07.89 Other chest pain; M25.512 Pain in left shoulder; M25.562 Pain in left knee
CPT/HCPCS: 36415; 70450; 71260; 73030; 73562; 80048; 85025; 96374; 96375; 96376; 99285; J2270; J2405; Q9967

== ENCOUNTER 2024-11-17 21:04 | Outpatient (REF) | payer MEDICAID, SELFPAY ==
--- OUTSIDE RECORDS SUMMARY | 2024-11-17 21:12 | XMS_ITS | CCD ---
Author Organization [facility] InformFormerly [facility] Care Team Providers Care Other Sports Coach Or Instructor Name Role Phone SALLY WELCH Admitting Unavailable SALLY WELCH Attending Unavailable MISC, DOCTOR Primary Care Unavailable JC WILDER Consulting Unavailable SALLY WELCH Consulting Unavailable LYSSA PARK Admitting Unavailable JORDYN BARRERA Primary Care Unavailable LYSSA PARK Attending Unavailable KINGS MIRANDA Referring Unavailable Alesha Watkins Unavailable Shilpi Cedillo Unavailable Lynda Pena Unavailable RIKI Sherman Attending Unavailable Velia LUND Attending Unavailable YULISA Barrera Primary Care Provider MD Jonny Bentley Admit Provider MD Jonny Bentley Attending Provider BOBBI ORTIZ Attending Unavailable ZHANE, BONG Referring Unavailable ZHANE, BONG Primary Care Unavailable NEENA DEL CASTILLO Attending Unavailable ZHANEBONG NIEVES Referring Unavailable ZHANE, BONG Primary Care Unavailable Dallas Bong MOSHER Primary Care Provider Jordyn Barrera Primary Care Unavailable Jonny Bentley Attending Unavaila Jonny Sampson Admitting Unavaila AINSLEY Sterling Attending Unavailable RAMAN RIVERA Attending Unavailable RAMAN RIVERA Attending Unavailable AINSLEY DON Attending Unavailable RAMAN RIVERA Attending Unavailable Zhane ASSISTANT SHIFT SUPERVISOR-Bong VALENTE Primary Care Provid er LYSSA PARK Attending Unavailable MALLORIEE VITHAL Referring Unavailable SHENDGE, VITHAL Referring Unavailable SHENDGE, VITHAL Attending Unavailable SHENDGE, VITHAL Admitting Unavailable SHENDGE, VITHAL Attending Unavailable SHENDGE, VITHAL Attending Unavailable SHENDGE, VITHAL Referring Unavailable SHENDGE, VITHAL Referring Unavailable SHENDGE, VITHAL Referring Unavailable Dallas ASSISTANT SHIFT SUPERVISOR-CUSTOMS ENTRY WRITER, Bong Primary Care Provid er GINA BOURGEOIS Attending Unavailable ZHANE, BONG Referring Unavailable ZHANE, BONG Primary Care Unavailable ZHANE, BONG Referring Unavailable ZHANE, BONG Primary Care Unavailable ZHANE, BONG Primary Care Unavailable TOROCHITO Attending Unavailable ZHANE, BONG Primary Care Unavailable [...] Unavailable LOGAN, MURAD H Attending Unavailable TOROCHITO Referring Unavailable ZHANE, BONG Primary Care Unavailable YOANA CHAVES Consulting Unavailable CHITO TORO Referring Unavailable ZHANE, BONG Primary Care Unavailable BOMMANA, LUDWIN GOPALA R Admitting Unavailab le BOMMANA, LUDWIN GOPALA R Attending Unavailab HEATHER Milan Referring Unavailable ZHANE, BONG Primary Care Unavailable [...] Referring Unavailable ZHANE, BONG Primary Care Unavailable Dallas Bong MOSHER Primary Care Provider Allergies Allergy Classification Reported Allergen(s) Allergy Type Date of Onset Reaction(s) Facility (4 sources) Acetaminophen / HYDROcodone; Translations: [NORCO] Drug Allergy 1 [facility] Repository (4 sources) cyclobenzaprine; Translations: [FLEXERIL] Drug Allergy 1 [facility] Repository (20 sources) hydroCHLOROthiazi de; Translations: [hydroCHLOROthiaz jorge] Drug Allergy 0 [facility] (1 source) Acetaminophen / HYDROcodone; Translations: [acetaminophen-hy drocodone] Drug Allergy 1 [facility] Repository (20 sources) cyclobenzaprine; Translations: [cyclobenzaprine] Drug Allergy 1 Headache, Hives [facility] Repository (2 sources) Acetaminophen; Translations: [acetaminophen] Drug Allergy 3 [facility] (2 sources) HYDROcodone; Translations: [hydrocodone] Drug Allergy 3 [facility] (20 sources) Acetaminophen / HYDROcodone; Translations: [HYDROCODONE-ACET [...] tablet (20 sources) Opioid Agonist Start: 04-14-2024 End: 11-05-2024 oxyCODONE-acetami nophen (PERCOCET) 7.5-325 mg per tablet Indications: Systemic lupus erythematosus, unspecified SLE type, unspecified organ involvement status (CMS-HCC) , Spondylosis without myelopathy or radiculopathy, lumbosacral region Take 1 tablet by mouth every 6 (six) hours as needed for pain. Max Daily Amount: 4 tablets 20 tablet 11/05/2024 Active Start: 03-14-2024 End: 03-21-2024 oxyCODONE-acetaminophen (PER [...] systemic lupus erythematosus, unspecified organ involvement status ([facility]) Take 1 tablet by mouth every 6 (six) hours as needed for pain. Max Daily Amount: 4 tablets 20 tablet 0 06/11/2023 Active [id number] 200 actuat albuterol 0.09 mg/actuat metered dose [...] Aspirin Active 325 MG PO Twice daily November 16, 2023 9:31am Atovaquone (2 sources) [...] days Jun, Active b complex-folic acid tablet (7 sources) take 1 tablet by mouth once [...] 01/30/2024 Active cholecalciferol 0.05 mg oral capsule (16 sources) Vitamin D Start: 07-21-2024 take 1 [...] 1.5 mg/ml oral solution (1 source) Uncompetitive T-mbnkmz-Q-aspartat e Receptor Antagonist, Sigma-1 Agonist Start: 06-29-2022 take 10 mL by mouth every eight hours [facility] 7.5-7.5 MG/5ML 10 mL Orally every [...] 28, 2019 5:45pm take 1 capsule by [facility] every twelve hours Cymbalta 60 MG 1 [...] 06/18/2023 Discontinued take 1 tablet by padmaja th twice [...] Angiotensin 2 Receptor Silvana Start: 09-27-2023 End: 10-29-2024 take 1 tablet by mouth once daily in the morning losartan (COZAAR) 25 mg tablet TAKE 1 TABLET BY MOUTH EVERY MORNING 90 tablet 10/29/2024 Active Magnesium (7 sources) take 1 capsule by mouth once [...] mg vaginal suppository Indications: Infection due to Hannah glabrata Insert 1 suppository (100 mg total) [...] unspecified SLE type, unspecified organ involvement status ([facility]) TAKE 1 TABLET BY MOUTH EVERY MORNING FOR 5 DAYS 5 tablet 02/20/2024 02/25/2024 Active Start: 11-06-2023 End: 11-16-2023 Prednisone Discontinued 20 M G PO Daily November 06, 2023 12:00am November 16, 2023 9:33am days 11-21 of therapy Start: 09-12-2023 End: 09-17-2023 take 1 tablet by mouth in the morning predniSONE (DELTASONE) 20 mg tablet Indications: Systemic lupus erythematosus, unspecified SLE type, unspecified organ involvement status ([facility]) Take 1 tablet (20 mg total) by [...] acute cor pulmonale, unspecified pulmonary embolism type ([facility]) Take 1 tablet (20 mg total) by [...] loss, (ZEPBOUND) 2.5 mg/0.5 mL pen injector (16 sources) Start: 07-21-2024 tirzepatide, weight loss, (ZEPBOUND) 2.5 mg/0.5 mL pen injector Indications: SOPHIE (obstructive sleep apnea) , Morbid obesity with BMI of 50.0-59.9, adult ([facility]) , Prediabetes Inject 2.5 mg under the [...] 50 M G PO Twice daily 60 November 16, 2023 9:31am Start: 08-16-2023 End: 12-14-2023 take 1 tablet by mouth once daily topiramate (Topamax) 25 MG tablet Take 25 mg by mouth Daily 10/16/2023 Active Turmeric Curcumin 500 MG capsule (7 sources) take 1 capsule by mo uth [...] unspecified SLE type, unspecified organ involvement status ([facility]) Take 2 tablets (100 mg total) by mouth in the morning and at bedtime. 120 tablet 08/08/2024 08/08/2024 Discontinued Start: 01-02-2023 End: 08-08-2024 take 1 tablet by mouth in the morning azaTHIOprine (Imuran) 100 MG tablet Take 100 mg by mouth in the morning and 100 mg in the evening. 07/08/2023 Active Start: 02-28-2019 End: 11-06-2023 take 50 [...] 11/06/2023 01/10/2024 Discontinued (Therapy completed) estrogens, conjugated (detention) 0.9 mg oral tablet (8 sources) Estrogen [...] (Reorder) Start: 11-16-2023 take 2 tablets by [facility] every four hours as needed for pain [...] nasal spray (20 sources) Start: 01-17-2023 End: 08-16-2023 sodium chloride (OCEAN NASAL ) 0.65 % [...] obesity type, unspecified whether serious comorbidity present ([facility]) Inject 2.5 mg under the skin every [...] Date Documented Date Episodic/Chronic Administrative/socia l admission (13 sources) Encounter for issue of repeat prescription; Translations: [Other reduced mobility] Onset: 11-06-2023 Episodic Anxiety disorders (20 sources) Mixed anxiety and depressive disorder; Translations: [Other specified anxiety disorders] Onset: 12-07-2023 12-13-2023 Chronic Asthma (20 sources) Mild intermittent asthma, uncomplicated; Translations: [Mild intermittent asthma] Onset: 12-07-2023 12-13-2023 Chronic Coagulation and hemorrhagic disorders (2 sources) Coagulation defect, unspecified; Translations: [Coagulation defect, unspecified] Onset: 10-22-2023 Chronic Diabetes mellitus without complication (1 source) Diabetes mellitus Onset: 07-18-2024 Chronic Esophageal disorders (20 sources) Gastroesophageal reflux disease; Translations: [Gastro-esophageal reflux disease without esophagitis] Onset: 12-07-2023 12-13-2023 Chronic Essential hypertension (20 sources) Essential (primary) hypertension; Translations: [Hypertensive disorder] Onset: 03-07-2018 11-07-2023 Chronic Headache; including migraine (3 sources) Migraine; Translations: [Other migraine, not intractable, without status migrainosus] Onset: 01-30-2024 08-16-2023 Chronic Immunizations and screening for infectious disease (5 sources) Contact with and (suspected) exposure to other viral communicable diseases; Translations: [At risk of sexually transmitted infection ] Episodic Menopausal disorders (4 sources) Menopausal syndrome; Translations: [Menopausal and female climacteric states] Onset: 02-11-2024 02-11-2024 Chronic Mood disorders (1 source) Reactive depression (situational); Translations: [Major depressive disorder, single episode, unspecified] 08-16-2023 Chronic Nutritional deficiencies (20 sources) Vitamin [...] IN LEFT WRIST] Onset: 03-04-2018 Episodic Other nutritional; endocrine; and metabolic disorders [...] BOTH CERVIX AND UTERUS] Onset: 03-07-2018 Episodic Residual codes; unclassified (1 source) Pain Onset: 11-05-2024 Episodic Spondylosis; intervertebral disc disorders; other back [...] pain, unspecified] Onset: 10-30-2023 Unclassified (1 source) Blood Sugar Problem Onset: 11-05-2024 Unclassified (1 source) Knee Injury Onset: 07-18-2024 Unclassified (1 source) Mass Onset: 02-22-2024 Unclassified (1 source) Breathing Problem Onset: 12-19-2023 Past or Other Problems Problem Classification Problem Date Documented Date Episodic/Chronic Abdominal pain (3 sources) Epigastric pain; Translations: [Epigastric pain] Onset: 07-21-2024 05-04-2023 Episodic Cancer of cervix (4 sources) Atypical squamous cells of undetermined significance on cervical Papanicolaou smear; Translations: [Atypical squamous cells of undetermined significance on cytologic smear of cervix (ASC-US)] Onset: 02-11-2024 02-11-2024 Episodic Conditions associated with dizziness or vertigo (1 source) Dizziness Onset: 07-18-2024 Episodic Diabetes mellitus without complication (20 sources) Prediabetes; Translations: [Prediabetes] Onset: 11-06-2023 11-07-2023 Episodic E Codes: Fall (2 sources) Fall; Translations: [Unspecified fall, initial encounter] Onset: 07-18-2024 07-18-2024 Episodic External cause codes: Fall (2 sources) Other fall on same level, initial encounter; Translations: [Fall] Onset: 03-07-2018 07-21-2024 Genitourinary symptoms and ill-defined conditions (8 sources) Increased frequency of urination; Translations: [Frequency of micturition] Onset: 07-21-2024 08-16-2023 Episodic Headache; including migraine (1 source) Headache Onset: 07-18-2024 Episodic Inflammatory diseases of female pelvic organs (1 source) Bacterial vaginosis; Translations: [Acute vaginitis] 08-16-2023 Episodic Mood disorders (20 sources) Mood [...] 01-10-2024 01-10-2024 Episodic Other lower respiratory disease (1 source) Shortness of breath Onset: 12-06-2023 Episodic Other lower respiratory disease (2 sources) Shortness of breath; Translations: [Shortness of breath] Onset: 12-06-2023 Episodic Other non-traumatic joint disorders (20 sources) Anterior knee pain; Translations: [Pain in right knee] Onset: 04-20-2021 04-20-2021 Episodic Other non-traumatic joint disorders (5 sources) Pain in left knee; Translations: [Pain in joint, lower leg] Onset: 07-23-2023 Episodic Other non-traumatic joint disorders (2 sources) [...] conditions (not mental disorders or infectious disease) (7 sources) Electrocardiogram abnormal; Translations: [Abnormal electrocardiogram [ECG] [EKG]] Onset: 02-22-2024 08-21-2023 Episodic Pulmonary heart disease (20 sources) [...] Test Name Value Interpretation Reference Range Facility HEMOGLOBIN A1Con 10-22-2024 Glucose [Mass/Vol] 137 mg/dL Normal [facility] Comment on above: Performed By: #### C BCA, CMP #### [facility] ([id number]) [address] [place] [address] #### PINR, [id number], [id number] #### [facility] ([id number]) [address] [place] [address]505 HbA1c (Bld) [Mass fraction] 6.4 % High 4.4-5.6 [facility] Comment on above: Result Comment: ADA Guidelines Result HgbA1c Normal : less than 5.7 % Prediabetes : 5.7 % to 6.4 % Diabetes : > 6.4 % Use with caution in patients with abnormal hemoglobin variants as the half-life of red blood cells and in vivo glycation rates are affected. Performed By: #### C BCA, CMP #### [facility] ([id number]) [address] [place] [address] #### MARCELINA, [id number], [id number] #### [facility] ([id number]) [address] [place] [address]22 URINALYSISon 07-21-2024 Bilirubin Ql (U) Negative Normal Negative [facility] Comment on above: Order Comment: Urine received without preservative. Delays in transport may affect results. Interpret with caution. A clinical correlation is recommended. Performed By: #### C BCA, CMP #### [facility] ([id number]) [address] [place] [address] #### MARCELINA, [id number], [id number] #### [facility] ([id number]) [address] [place] [address]604 BLOOD/HGB Negative Normal Negative [facility] Comment on above: Order Comment: Urine received without preservative. Delays in transport may affect results. Interpret with caution. A clinical correlation is recommended. Performed By: #### C BCA, CMP #### [facility] ([id number]) [address], [address] [place] [address] #### MARCELINA, [id number], [id number] #### [facility] ([id number]) [address] [place] [address]2019 CA OXALATE CRYSTALS Present Abnormal None [facility] Comment on above: Order Comment: Urine received without preservative. Delays in transport may affect results. Interpret with caution. A clinical correlation is recommended. Performed By: #### C BCA, CMP #### [facility] ([id number]) [address], [address] [place] [address] #### PINR, [id number], [id number] #### [facility] ([id number]) [address] [place] [address] 20479 Color (U) Yellow Normal Yellow, Colorless [facility] Comment on above: Order Comment: Urine received without preservative. Delays in transport may affect results. Interpret with caution. A clinical correlation is recommended. Performed By: #### C BCA, CMP #### [facility] ([id number]) [address], [address] [place] [address] #### PINR, [id number], [id number] #### [facility] ([id number]) [address] [place] [address]60 Glucose Ql (U) Negative Normal Negative [facility] Comment on above: Order Comment: Urine received without preservative. Delays in transport may affect results. Interpret with caution. A clinical correlation is recommended. Performed By: #### C BCA, CMP #### [facility] ([id number]) [address], [address] [place] [address] #### PINR, [id number], [id number] #### [facility] ([id number]) [address] [place] [address] 75671 Hyaline casts LM Ql (Urine sed) 18 High 0-2 [facility] Comment on above: Order Comment: Urine received without preservative. Delays in transport may affect results. Interpret with caution. A clinical correlation is recommended. Performed By: #### C BCA, CMP #### [facility] ([id number]) [address], [address] [place] [address] #### PINR, [id number], [id number] #### [facility] ([id number]) [address] [place] [address] 05498 Ketones Ql (U) Trace Abnormal Negative [facility] Comment on above: Order Comment: Urine received without preservative. Delays in transport may affect results. Interpret with caution. A clinical correlation is recommended. Performed By: #### C BCA, CMP #### [facility] ([id number]) [address], [address] [place] [address] #### PINR, [id number], [id number] #### [facility] ([id number]) [address] [place] [address] 27685 Leukocyte esterase Test strip Ql (U) Trace Abnormal Negative [facility] Comment on above: Order Comment: Urine received without preservative. Delays in transport may affect results. Interpret with caution. A clinical correlation is recommended. Performed By: #### C BCA, CMP #### [facility] ([id number]) [address], [address] [place] [address] #### PINR, [id number], [id number] #### [facility] ([id number]) [address] [place] [address] 77207 MUCOUS Present Abnormal None [facility] Comment on above: Order Comment: Urine received without preservative. Delays in transport may affect results. Interpret with caution. A clinical correlation is recommended. Performed By: #### C BCA, CMP #### [facility] ([id number]) [address], [address] [place] [address] #### PINR, [id number], [id number] #### [facility] ([id number]) [address] [place] [address] 54532 Nitrite Ql (U) Negative Normal Negative [facility] Comment on above: Order Comment: Urine received without preservative. Delays in transport may affect results. Interpret with caution. A clinical correlation is recommended. Performed By: #### C BCA, CMP #### [facility] ([id number]) [address], [address] [place] [address] #### PINR, [id number], [id number] #### [facility] ([id number]) [address] [place] [address] 85877 PH,URINE 6.0 Normal 5.0-8.5 [facility] Comment on above: Order Comment: Urine received without preservative. Delays in transport may affect results. Interpret with caution. A clinical correlation is recommended. Performed By: #### C BCA, CMP #### [facility] ([id number]) [address], [address] [place] [address] #### PINR, [id number], [id number] #### [facility] ([id number]) [address] [place] [address] 94210 Protein Ql (U) Trace Abnormal Negative [facility] Comment on above: Order Comment: Urine received without preservative. Delays in transport may affect results. Interpret with caution. A clinical correlation is recommended. Performed By: #### C BCA, CMP #### [facility] ([id number]) [address], [address] [place] [address] #### PINR, [id number], [id number] #### [facility] ([id number]) [address] [place] [address] 68793 R.B.CELLS 3 Normal 0-5 [facility] Comment on above: Order Comment: Urine received without preservative. Delays in transport may affect results. Interpret with caution. A clinical correlation is recommended. Performed By: #### C BCA, CMP #### [facility] ([id number]) [address], [address] [place] [address] #### MARCELINA, [id number], 50393-5 #### [facility] ([id number]) [address] [place] [address] 11962 Specific gravity (U) [Rel density] 1.028 Normal 1.003-1.035 [facility] Comment on above: Order Comment: Urine received without preservative. Delays in transport may affect results. Interpret with caution. A clinical correlation is recommended. Performed By: #### C BCA, CMP #### [facility] ([id number]) [address] [place] [address] #### MARCLEINA, [id number], [id number] #### [facility] ([id number]) [address] [place] [address] 94287 SQUAMOUS EPITHELIUM 3 Normal 0-5 [facility] Comment on above: Order Comment: Urine received without preservative. Delays in transport may affect results. Interpret with caution. A clinical correlation is recommended. Performed By: #### C BCA, CMP #### [facility] ([id number]) [address], [address] [place] [address] #### PINR, [id number], [id number] #### [facility] ([id number]) [address] [place] [address] 40856 TURBIDITY Hazy Abnormal Clear [facility] Comment on above: Order Comment: Urine received without preservative. Delays in transport may affect results. Interpret with caution. A clinical correlation is recommended. Performed By: #### C BCA, CMP #### [facility] ([id number]) [address], [address] [place] [address] #### PINR, [id number], [id number] #### [facility] ([id number]) [address] [place] [address] 83321 UROBILINOGEN 3 eu/dL Abnormal <1.1 eu/dL [facility] Comment on above: Order Comment: Urine received without preservative. Delays in transport may affect results. Interpret with caution. A clinical correlation is recommended. Performed By: #### C BCA, CMP #### [facility] ([id number]) [address], [address] [place] [address] #### PINR, [id number], [id number] #### [facility] ([id number]) [address] [place] [address] 59751 W.B.CELLS 3 Normal 0-5 [facility] Comment on above: Order Comment: Urine received without preservative. Delays in transport may affect results. Interpret with caution. A clinical correlation is recommended. Performed By: #### C BCA, CMP #### [facility] ([id number]) [address] [place] [address] #### PINR, [id number], [id number] #### [facility] ([id number]) [address] [place] [address] 35098 URINE CULTUREon 07-21-2024 Bacteria identified Cx Nom (U) CULTURE RESULTS 10-50,000 ORGANISMS/mL NORMAL UROGENITAL SOWMYA Normal [facility] Comment on above: Performed By: #### C BCA, CMP #### [facility] ([id number]) [address], [address] [place] [address] #### PINR, [id number], [id number] #### [facility] ([id number]) [address] [place] [address] 97219 XR KNEE LT 3 VWSon 5 XR KNEE LT 3 VWS XR KNEE [...] Vaz MD on 07/20/2024 8:20 AM Normal [facility] XR Knee - left 3 Viewson EXAM: [...] Rah Vaz MD on 07/20/2024 8:20 AM [facility] Vaz MD - 07/20/2024 EXAM: XR [...] Rah Vaz MD on 07/20/2024 8:20 AM [facility] XR Knee - left 3 ViewsOrdere d By: Rah Vaz on 07-20-2024 [facility] Work Phone: CBC WITH AUTO DIFFERENTIALon 07-18-2024 BASOPHILS ABSOLUTE COUNT (10*3/UL) BY AUTOMATED COUNT 0.0 10*3/uL Normal 0.0-0.2 [facility] Comment on above: Performed By: #### 8 [id number] #### [facility] ([id number]) [address], [address] [place] [address] BASOPHILS RELATIVE PERCENT BY AUTOMATED COUNT 0.7 % Normal [facility] Comment on above: Performed By: #### 8 [id number] #### [facility] ([id number]) [address], [address] [place] [address] CELLAVISION DIFFERENTIAL TYPE AUTOMATED DIFFERENTIAL Normal [facility] Comment on above: Performed By: #### 8 [id number] #### [facility] ([id number]) [address] [facility] [facility] [address] [place] [address] Eosinophils (Bld) [#/Vol] 0.0 10*3/uL Normal 0.0-0.4 [facility] Comment on above: Performed By: #### 8 9579-7 #### [facility] ([id number]) [address], [address] [place] [address] EOSINOPHILS RELATIVE PERCENT BY AUTOMATED COUNT 0.8 % Normal [facility] Comment on above: Performed By: #### 8 9579-7 #### [facility] ([id number]) [address], [address] [place] [address] Erythrocyte distribution width (RBC) [Ratio] 14.4 % Normal 11.5-15 [facility] Comment on above: Performed By: #### 8 9579-7 #### [facility] ([id number]) [address], [address] [place] [address] Hematocrit (Bld) [Volume fraction] 37.7 % Normal 35-47 [facility] Comment on above: Performed By: #### 8 9579-7 #### [facility] ([id number]) [address], [address] [place] [address] Hemoglobin (Bld) [Mass/Vol] 12.4 g/dL Normal 11.7-15.5 [facility] Comment on above: Performed By: #### 8 9579-7 #### [facility] ([id number]) [address], [address] [place] [address] LYMPHOCYTES ABSOLUTE COUNT (10*3/UL) BY AUTOMATED COUNT 1.6 10*3/uL Normal 1.0-3.5 [facility] Comment on above: Performed By: #### 8 9579-7 #### [facility] ([id number]) [address], [address] [place] [address] LYMPHOCYTES RELATIVE PERCENT BY AUTOMATED COUNT 39.8 % Normal [facility] Comment on above: Performed By: #### 8 9579-7 #### [facility] ([id number]) [address], [address] [place] [address] MCH (RBC) [Entitic mass] 29.8 pg Normal 27-34 [facility] Comment on above: Performed By: #### 8 9579-7 #### [facility] ([id number]) [address], [address] [place] [address] MCHC (RBC) [Mass/Vol] 33.0 g/dL Normal 32-36 [facility] Comment on above: Performed By: #### 8 9579-7 #### [facility] ([id number]) [address], [address] [place] [address] MCV (RBC) [Entitic vol] 90 fL Normal 80-100 [facility] Comment on above: Performed By: #### 8 9579-7 #### [facility] ([id number]) [address], [address] [place] [address] MONOCYTES ABSOLUTE COUNT (10*3/UL) BY AUTOMATED COUNT 0.4 10*3/uL Normal 0.0-0.9 [facility] Comment on above: Performed By: #### 8 9579-7 #### [facility] ([id number]) [address], [address] [place] [address] MONOCYTES RELATIVE PERCENT BY AUTOMATED COUNT 10.6 % Normal [facility] Comment on above: Performed By: #### 8 9579-7 #### [facility] ([id number]) [address], [address] [place] [address] NEUTROPHILS ABSOLUTE COUNT BY AUTOMATED COUNT 1.9 10*3/uL Normal 1.5-6.6 [facility] Comment on above: Performed By: #### 8 9579-7 #### [facility] ([id number]) [address], [address] [place] [address] NEUTROPHILS RELATIVE PERCENT BY AUTOMATED COUNT 48.1 % Normal [facility] Comment on above: Performed By: #### 8 9579-7 #### [facility] ([id number]) [address], [address] [place] [address] Platelet mean volume (Bld) [Entitic vol] 7.2 fL Normal 7-12 [facility] Comment on above: Performed By: #### 8 9579-7 #### [facility] ([id number]) [address], [address] [place] [address] Platelets (Bld) [#/Vol] 338 10*3/uL Normal 150-450 [facility] Comment on above: Performed By: #### 8 9579-7 #### [facility] ([id number]) [address], [address] [place] [address] RBC COUNT 4.18 X10E12/L Normal 3.8-5.2 [facility] Comment on above: Performed By: #### 8 9579-7 #### [facility] ([id number]) [address] [address] [place] [address] WBC (Bld) [#/Vol] 3.9 10*3/uL Low 4-11 [facility] Comment on above: Performed By: #### 8 9579-7 #### [facility] ([id number]) [address] [facility] [place] [address] CBC auto differentialon 050 Basophils (Bld) [#/Vol] 0 10*3/uL 0.0 - 0.2 10*3/uL [facility] Basophils/100 WBC (Bld) 0.7 % [facility] Differential cell count method Nom (Bld) AUTOMATED DIFFERENTIAL [facility] Eosinophils (Bld) [#/Vol] 0 10*3/uL 0.0 - 0.4 10*3/uL [facility] Eosinophils/100 WBC (Bld) 0.8 % [facility] Erythrocyte distribution width (RBC) [Ratio] 14.4 % 11.5 - 15 % [facility] Hematocrit (Bld) [Volume fraction] 37.7 % 35 - 47 % [facility] Hemoglobin (Bld) [Mass/Vol] 12.4 g/dL 11.7 - 15.5 g/dL [facility] Interpretation and review of laboratory results Abnormal [facility] Lymphocytes (Bld) [#/Vol] 1.6 10*3/uL 1.0 - 3.5 10*3/uL [facility] Lymphocytes/100 WBC (Bld) 39.8 % [facility] MCH (RBC) [Entitic mass] 29.8 pg 27 - [address] [facility] MCHC (RBC) [Mass/Vol] 33 g/dL 32 - 3 6 g/dL [facility] MCV (RBC) [Entitic vol] 90 fL 80 - [address] [facility] Monocytes (Bld) [#/Vol] 0.4 10*3/uL 0.0 - 0.9 10*3/uL [facility] Monocytes/100 WBC (Bld) 10.6 % [facility] Neutrophils (Bld) [#/Vol] 1.9 10*3/uL 1.5 - 6.6 10*3/uL [facility] Neutrophils/100 WBC (Bld) 48.1 % [facility] Platelet mean volume (Bld) [Entitic vol] 7.2 fL 7 - [address] [facility] Platelets (Bld) [#/Vol] 338 10*3/uL [facility] RBC (Bld) [#/Vol] 4.18 10*6/uL [facility] WBC LM Ql (Sput) 3.9 Low [facility] COMPREHENSIVE METABOLIC PANE Caleb 07-18-2024 Albumin [Mass/Vol] 4.2 g/dL Normal 3.2-5.3 [facility] Comment on above: Performed By: #### 8 9579-7 #### [facility] ([id number]) [address], [address] [place] [address] ALP [Catalytic activity/Vol] 129 U/L Normal 39-130 [facility] Comment on above: Performed By: #### 8 9579-7 #### [facility] ([id number]) [address], [address] [place] [address] ALT [Catalytic activity/Vol] 15 U/L Normal <=31 [facility] Comment on above: Performed By: #### 8 9579-7 #### [facility] ([id number]) [address], [address] [place] [address] Anion gap [Moles/Vol] 9 mmol/L Normal 5-15 [facility] Comment on above: Performed By: #### 8 9579-7 #### [facility] ([id number]) [address], [address] [place] [address] AST [Catalytic activity/Vol] 20 U/L Normal <=41 [facility] Comment on above: Performed By: #### 8 9579-7 #### [facility] ([id number]) [address], [address] [place] [address] Bilirubin [Mass/Vol] 0.4 mg/dL Normal 0.3-1.2 [facility] Comment on above: Performed By: #### 8 9579-7 #### [facility] ([id number]) [address], [address] [place] [address] Calcium [Mass/Vol] 9.4 mg/dL Normal 8.5-10.5 [facility] Comment on above: Performed By: #### 8 9579-7 #### [facility] ([id number]) [address], [address] [place] [address] Chloride [Moles/Vol] 105 mmol/L Normal 98-109 [facility] Comment on above: Performed By: #### 8 9579-7 #### [facility] ([id number]) [address], [address] [place] [address] CO2 [Moles/Vol] 26 mmol/L Normal 22-32 [facility] Comment on above: Performed By: #### 8 9579-7 #### [facility] ([id number]) [address], [address] [place] [address] Creatinine [Mass/Vol] 0.88 mg/dL Normal 0.40-1.00 [facility] Comment on above: Result Comment: METH OD TRACEABLE TO IDMS STANDARD Performed By: #### 8 9579-7 #### [facility] ([id number]) [address], [address] [place] [address] GFR/1.73 sq M.predicted among non-blacks MDRD (S/P/Bld) [Vol rate/Area] 80 mL/min/{1.73_m2} Normal >=60 [facility] Comment on above: Result Comment: Repo rted eGFR is based on the CKD-EPI 2020 equation that does not use a race coefficient. Performed By: #### 8 9579-7 #### [facility] ([id number]) [address], [address] [place] [address] Glucose [Mass/Vol] 90 mg/dL Normal 65-99 [facility] Comment on above: Performed By: #### 8 9579-7 #### [facility] ([id number]) [address], [address] [place] [address] Potassium [Moles/Vol] 3.7 mmol/L Normal 3.5-5.0 [facility] Comment on above: Performed By: #### 8 9579-7 #### [facility] ([id number]) [address], [address] [place] [address] Protein [Mass/Vol] 7.7 g/dL Normal 6.0-8.0 [facility] Comment on above: Performed By: #### 8 9579-7 #### [facility] ([id number]) [address], [address] [place] [address] Sodium [Moles/Vol] 140 mmol/L Normal 134-146 [facility] Comment on above: Performed By: #### 8 9579-7 #### [facility] ([id number]) [address], [address] [place] [address] Urea nitrogen [Mass/Vol] 8 mg/dL Normal 5-23 [facility] Comment on above: Performed By: #### 8 9579-7 #### [facility] ([id number]) [address], [address] [place] [address] Comprehensive metabolic pane caleb 07-18-2024 Albumin [Mass/Vol] 4.2 g/dL 3.2 - 5.3 g/dL [facility] ALP [Catalytic activity/Vol] 129 U/L 39 - 130 U/L [facility] ALT No additional P-5'-P [Catalytic activity/Vol] 15 U/L NINF - 31 U/L [facility] Anion gap [Moles/Vol] 9 mmol/L 5 - 15 mmol/L [facility] AST [Catalytic activity/Vol] 20 U/L NINF - 41 U/L [facility] Bilirubin [Mass/Vol] 0.4 mg/dL 0.3 - 1 .2 mg/dL [facility] Calcium [Mass/Vol] 9.4 mg/dL 8.5 - 10. 5 mg/dL [facility] Chloride [Moles/Vol] 105 mmol/L 98 - 10 9 mmol/L [facility] CO2 [Moles/Vol] 26 mmol/L 22 - 32 mmol/L [facility] Creatinine [Mass/Vol] 0.88 mg/dL 0.40 - 1.00 mg/dL [facility] Comment on above: METHOD TRACEABLE TO IDMS STANDARD EGFR Non-Race Dependent 80 - PINF [facility] Comment on above: Reported eGFR is bas ed on the CKD-EPI 2020 equation that does not use a race coefficient. Glucose [Mass/Vol] 90 mg/dL 65 - 99 mg/dL [facility] Potassium [Moles/Vol] 3.7 mmol/L 3.5 - 5.0 mmol/L [facility] Protein [Mass/Vol] 7.7 g/dL 6.0 - 8.0 g/dL [facility] Sodium [Moles/Vol] 140 mmol/L 134 - 146 mmol/L [facility] Urea nitrogen [Mass/Vol] 8 mg/dL 5 - 23 mg/dL [facility] HEMOGLOBIN A1Con 07-18-2024 Glucose [Mass/Vol] 134 mg/dL Normal [facility] Comment on above: Performed By: #### H H, PLTCT, 64688-1, PINR, 97900-1, 3274-8, BMP #### [facility] ([id number]) [address] [place] [address] HbA1c (Bld) [Mass fraction] 6.3 % High 4.4-5.6 [facility] Comment on above: Result Comment: ADA Guidelines Result HgbA1c Normal : less than 5.7 % Prediabetes : 5.7 % to 6.4 % Diabetes : > 6.4 % Use with caution in patients with abnormal hemoglobin variants as the half-life of red blood cells and in vivo glycation rates are affected. Performed By: #### H H, PLTCT, 37367-1, PINR, 76966-1, 3274-8, BMP #### [facility] ([id number]) [address] [facility], [address] [place] [address] Hemoglobin A1con 07-18-2024 Average glucose Estimated from glycated hemoglobin (Bld) [Mass/Vol] 134 mg/dL [facility] HbA1c (Bld) [Mass fraction] 6.3 % High 4.4 - 5.6 % [facility] Comment on above: ADA Guidelines Result HgbA1c Normal : less than 5.7 % Prediabetes : 5.7 % to 6.4 % Diabetes : > 6.4 % Use with caution in patients with abnormal hemoglobin variants as the half-life of red blood cells and in vivo glycation rates are affected. Interpretation and review of laboratory results Abnormal [facility] LIPID PROFILEon 07-18-2024 Cholesterol [Mass/Vol] 175 mg/dL Normal 150-200 [facility] Comment on above: Performed By: #### 8 9579-7 #### [facility] ([id number]) [address] [facility], [address] [place] [address] Cholesterol in HDL [Mass/Vol] 65 mg/dL Normal >39 [facility] Comment on above: Result Comment: HDL <40 mg/dL - High Risk HDL > or = 40mg/dL- Desirable HDL >60 mg/dL - Negative Risk Performed By: #### 8 9579-7 #### [facility] ([id number]) [address] [place] [address] Cholesterol in LDL [Mass/Vol] 86 mg/dL Normal <130 [facility] Comment on above: Result Comment: LDL <100 mg/dL - Desirable LDL >160 mg/dL - High Risk Performed By: #### 8 9579-7 #### [facility] ([id number]) [address] [place] [address] CHOLESTEROL:HDL 2.7 Normal 1.0-5.0 [facility] Comment on above: Performed By: #### 8 9579-7 #### [facility] ([id number]) [address], [address] [place] [address] Triglyceride [Mass/Vol] 119 mg/dL Normal 27-150 [facility] Comment on above: Performed By: #### 8 9579-7 #### [facility] ([id number]) [address], [address] [place] [address] VERY LOW LIPOPROTEIN 24 mg/dL Normal 0-30 [facility] Comment on above: Performed By: #### 8 9579-7 #### [facility] ([id number]) [address] [place] [address] Lipid profileon 07-18-2024 Cholesterol [Mass/Vol] 175 mg/dL 150 - 200 mg/dL [facility] Cholesterol in HDL [Mass/Vol] 65 mg/dL 39 - PINF mg/dL [facility] Comment on above: HDL <40 mg/dL - High Risk HDL > or = 40mg/dL- Desirable HDL >60 mg/dL - Negative Risk Cholesterol in HDL [Mass/Vol] 2.7 mg/dL 1.0 - 5.0 [facility] Cholesterol in LDL [Mass/Vol] 86 mg/dL NINF - 130 mg/dL [facility] Comment on above: LDL <100 mg/dL - Ede irable LDL >160 mg/dL - High Risk Cholesterol in VLDL [Mass/Vol] 24 mg/dL 0 - 30 mg/dL [facility] Triglyceride [Mass/Vol] 119 mg/dL 27 - 150 mg/dL [facility] No Panel Informationon 07-18 Interpretation and review of laboratory results Normal [facility] THYROID PROFILE INCLUDES TSH FT4on 07-18-2024 Free T4 [Mass/Vol] 0.89 ng/dL Normal 0.61-1.60 [facility] Comment on above: Performed By: #### H H, PLTCT, 14824-8, PINR, 85095-3, 3274-8, BMP #### [facility] ([id number]) [address] [facility], [address] [place] [address] TSH 3.07 uIU/mL Normal 0.49-4.67 [facility] Comment on above: Performed By: #### H H, PLTCT, 05348-2, PINR, 46338-7, 3274-8, BMP #### [facility] ([id number]) [address] [place] [address], [address] [place] [address] Thyroid profile includes TSH FT4on 07-18-2024 Free T4 [Mass/Vol] 0.89 ng/dL 0.61 - 1. 60 ng/dL [facility] Interpretation and review of laboratory results Normal [facility] TSH Qn 3.07 m[IU]/L [facility] VITAMIN B12on 07-18-2024 Cobalamin (Vitamin B12) [Mass/Vol] 518 pg/mL Normal 180-914 [facility] Comment on above: Performed By: #### H H, PLTCT, 69724-0, PINR, 41789-7, 3274-8, BMP #### [facility] ([id number]) [address] [place] [address], [address] [address] VITAMIN D 25 HYDROXYon 07-18 VITAMIN D 25 HYD TOT 25.0 ng/mL Low 30.0-100.0 [facility] Comment on above: Order Comment: Vitam in D status 25 [place] Vitamin D Deficiency <20 ng/mLInsufficiency 20-29 ng/mLSufficiency 30-100 ng/mLToxicity >100 ng/mLNOTE: A pediatric reference range has not been established by the computing architect of this kit. The [place] [employer] recommends a Vitamin D level of = or >20ng/mL in infants and children. Performed By: #### H H, PLTCT, 03380-2, PINR, 68356-1, 3274-8, BMP #### [facility] ([id number]) [address] [place] [address] Vitamin B12on 07-18-2024 Cobalamin (Vitamin B12) [Mass/Vol] 518 pg/mL 180 - 914 pg/mL [facility] Interpretation and review of laboratory results Normal [facility] Vitamin D 25 hydroxyon 07-18 25-hydroxyvitamin D3 [Mass/Vol] 25 ng/mL Low 30.0 - 100.0 ng/mL [facility] Interpretation and review of laboratory results Abnormal [facility] Vitamin D status 25 [place] Vitamin D -------- Deficiency <20 ng/mL Insufficiency 20-29 ng/mL Sufficiency 30-100 ng/mL Toxicity >100 ng/mL NOTE: A pediatric reference range has not been established by the computing architect of this kit. The [place] [employer] recommends a Vitamin D level of = or >20ng/mL in infants and children. [facility] - left 3 [facility] Study observation (narrative) [facility] LookMedBook MAMM SCREENING BILATERAL W C topstitcher zigzag 03-20-2024 MAMM SCREENING BILATERAL W CAD MAMM SCREENING BILATERAL W CAD NAVDEEP PALMA 1975 [id number] EXAM: MAMM SCREENING BILATERAL W CAD, 03/20/2024 [...] evaluation, please consider placing a referral to [facility] via Epic or . For questions regarding this, please call [phone]. The patient was given information on genetic counseling at the time of exam. Finalized by Eun Yanez MD on 03/20/2024 3:22 PM 1 a MAMM 1 YR Normal [facility] 36on 03-03-2024 36 LVM asking if she ca n come in this morning or by 1:00pm today for her appt. With Dr. Park, as he has a surgery at 2:00 pm. Normal [facility] Telephoneon 03-03-2024 Telephone [phone] Apolonia Palma 1975 F Date Provider Department Center 03/03/2024 JANEE MONGE MP [facility] Family History Problem Relation Age of Onset Cancer Mother Family Status - Relation Status Age at Mother Reason for Visit and Comments: Appointment [375] Normal [facility] CBC AND AUTO DIFFon 02-22-20 ABSOLUTE BASOPHIL 0.0 X10E9/L Normal 0.0-0.2 [facility] Comment on above: Performed By: #### 3 0934-4 #### [facility] ([id number]) [address], [address] [place] [address] ABSOLUTE NEUTROPHIL 1.6 X10E9/L Normal 1.5-6.6 [facility] Comment on above: Performed By: #### 3 0934-4 #### [facility] ([id number]) [address] [place] [address] Basophils/100 WBC (Bld) 1.0 % Normal [facility] Comment on above: Performed By: #### 3 0934-4 #### [facility] ([id number]) [address], [address] [place] [address] Eosinophils (Bld) [#/Vol] 0.0 10*3/uL Normal 0.0-0.4 [facility] Comment on above: Performed By: #### 3 0934-4 #### [facility] ([id number]) [address] [place] [address] Eosinophils/100 WBC (Bld) 0.9 % Normal [facility] Comment on above: Performed By: #### 3 0934-4 #### [facility] ([id number]) [address], [address] [place] [address] Erythrocyte distribution width (RBC) [Ratio] 16.2 % High 11.5-15.0 [facility] Comment on above: Performed By: #### 3 0934-4 #### [facility] ([id number]) [address], [address] [place] [address] Hematocrit (Bld) [Volume fraction] 37.3 % Normal 35-47 [facility] Comment on above: Performed By: #### 3 0934-4 #### [facility] ([id number]) [address] [place] [address] Hemoglobin (Bld) [Mass/Vol] 12.4 g/dL Normal 11.7-15.5 [facility] Comment on above: Performed By: #### 3 0934-4 #### [facility] ([id number]) [address] [place] [address] Lymphocytes (Bld) [#/Vol] 1.4 10*3/uL Normal 1.0-3.5 [facility] Comment on above: Performed By: #### 3 0934-4 #### [facility] ([id number]) [address] [place] [address] Lymphocytes/100 WBC (Bld) 41.5 % Normal [facility] Comment on above: Performed By: #### 3 0934-4 #### [facility] ([id number]) [address] [place] [address] MCH (RBC) [Entitic mass] 30.5 pg Normal 27-34 [facility] Comment on above: Performed By: #### 3 0934-4 #### [facility] ([id number]) [address] [place] [address] MCHC (RBC) [Mass/Vol] 33.2 g/dL Normal 32-36 [facility] Comment on above: Performed By: #### 3 0934-4 #### [facility] ([id number]) [address] [place] [address] MCV (RBC) [Entitic vol] 92 fL Normal 80-100 [facility] Comment on above: Performed By: #### 3 0934-4 #### [facility] ([id number]) [address] [place] [address] Monocytes (Bld) [#/Vol] 0.3 10*3/uL Normal 0-0.9 [facility] Comment on above: Performed By: #### 3 0934-4 #### [facility] ([id number]) [address] [place] [address] Monocytes/100 WBC (Bld) 8.7 % Normal [facility] Comment on above: Performed By: #### 3 0934-4 #### [facility] ([id number]) [address] [place] [address] Neutrophils/100 WBC (Bld) 47.9 % Normal [facility] Comment on above: Performed By: #### 3 0934-4 #### [facility] ([id number]) [address], [address] [place] [address] Platelet mean volume (Bld) [Entitic vol] 7.4 fL Normal 7-12 [facility] Comment on above: Performed By: #### 3 0934-4 #### [facility] ([id number]) [address] [address] [place] [address] Platelets (Bld) [#/Vol] 328 10*3/uL Normal 150-450 [facility] Comment on above: Performed By: #### 3 0934-4 #### [facility] ([id number]) [address], [facility] [address] [place] [address] RBC COUNT 4.06 X10E12/L Normal 3.80-5.20 [facility] Comment on above: Performed By: #### 3 0934-4 #### [facility] ([id number]) [address], [address] [address] WBC (Bld) [#/Vol] 3.3 10*3/uL Low 4.0-11.0 [facility] Comment on above: Performed By: #### 3 0934-4 #### [facility] ([id number]) [address], [address] [address] CBC auto differentialon 02-09 Basophils (Bld) [#/Vol] 0 10*3/uL [facility] Basophils/100 WBC (Bld) 1 % [facility] Eosinophils (Bld) [#/Vol] 0 10*3/uL [facility] Eosinophils/100 WBC (Bld) 0.9 % [facility] Erythrocyte distribution width (RBC) [Ratio] 16.2 % High 11.5 - 15.0 % [facility] Hematocrit (Bld) [Volume fraction] 37.3 % 35 - 47 % [facility] Hemoglobin (Bld) [Mass/Vol] 12.4 g/dL 11.7 - 15.5 g/dL [facility] [facility] Interpretation and review of laboratory results Abnormal [facility] Lymphocytes (Bld) [#/Vol] 1.4 10*3/uL [facility] Lymphocytes/100 WBC (Bld) 41.5 % [facility] MCH (RBC) [Entitic mass] 30.5 pg 27 - [address] [facility] MCHC (RBC) [Mass/Vol] 33.2 g/dL 32 - 3 6 g/dL [facility] MCV (RBC) [Entitic vol] 92 fL 80 - [address] [facility] Monocytes (Bld) [#/Vol] 0.3 10*3/uL [facility] Monocytes/100 WBC (Bld) 8.7 % [facility] Neutrophils (Bld) [#/Vol] 1.6 10*3/uL [facility] Neutrophils/100 WBC (Bld) 47.9 % [facility] Platelet mean volume (Bld) [Entitic vol] 7.4 fL 7 - [address] [facility] Platelets (Bld) [#/Vol] 328 10*3/uL [facility] RBC (Bld) [#/Vol] 4.06 10*6/uL [facility] WBC corrected for nucl RBC Auto (Bld) [#/Vol] 3.3 Low [facility] COMPREHENSIVE METABOLIC PANE Caleb 02-22-2024 Albumin [Mass/Vol] 3.8 g/dL Normal 3.2-5.3 [facility] Comment on above: Performed By: #### 8 9579-7 #### [facility] ([id number]) [address], [address] [place] [address] ALP [Catalytic activity/Vol] 115 U/L Normal 39-130 [facility] Comment on above: Performed By: #### 8 9579-7 #### [facility] ([id number]) [address], [address] [place] [address] ALT [Catalytic activity/Vol] 19 U/L Normal 0-31 [facility] Comment on above: Performed By: #### 8 9579-7 #### [facility] ([id number]) [address], [address] [place] [address] Anion gap [Moles/Vol] 10 mmol/L Normal 5-15 [facility] Comment on above: Performed By: #### 8 9579-7 #### [facility] ([id number]) [address], [address] [place] [address] AST [Catalytic activity/Vol] 24 U/L Normal 0-41 [facility] Comment on above: Performed By: #### 8 9579-7 #### [facility] ([id number]) [address], [address] [place] [address] Bilirubin [Mass/Vol] 0.5 mg/dL Normal 0.3-1.2 [facility] Comment on above: Performed By: #### 8 9579-7 #### [facility] ([id number]) [address], [address] [place] [address] Calcium [Mass/Vol] 8.7 mg/dL Normal 8.5-10.5 [facility] Comment on above: Performed By: #### 8 9579-7 #### [facility] ([id number]) [address], [address] [place] [address] Chloride [Moles/Vol] 105 mmol/L Normal 98-109 [facility] Comment on above: Performed By: #### 8 9579-7 #### [facility] ([id number]) [address], [address] [place] [address] CO2 [Moles/Vol] 29 mmol/L Normal 22-32 [facility] Comment on above: Performed By: #### 8 9579-7 #### [facility] ([id number]) [address] [place] [address] Creatinine [Mass/Vol] 0.74 mg/dL Normal 0.40-1.00 [facility] Comment on above: Result Comment: METH OD TRACEABLE TO IDMS STANDARD Performed By: #### 8 9579-7 #### [facility] ([id number]) [address], [address] [place] [address] eGFR (CKD-EPI) NON-RACE DEPENDENT >90 Normal >59 [facility] Comment on above: Result Comment: Reported eGFR is based on the CKD-EPI 2020 equation that does not use a race coefficient. Performed By: #### 8 9579-7 #### [facility] ([id number]) [address], [address] [place] [address] Glucose [Mass/Vol] 107 mg/dL High 65-99 [facility] Comment on above: Performed By: #### 8 9579-7 #### [facility] ([id number]) [address], [address] [place] [address] Potassium [Moles/Vol] 4.0 mmol/L Normal 3.5-5.0 [facility] Comment on above: Performed By: #### 8 9579-7 #### [facility] ([id number]) [address], [address] [place] [address] Protein [Mass/Vol] 7.0 g/dL Normal 6.0-8.0 [facility] Comment on above: Performed By: #### 8 9579-7 #### [facility] ([id number]) [address], [address] [place] [address] Sodium [Moles/Vol] 144 mmol/L Normal 134-146 [facility] Comment on above: Performed By: #### 8 9579-7 #### [facility] ([id number]) [address], [address] [place] [address] Urea nitrogen [Mass/Vol] 6 mg/dL Normal 5-23 [facility] Comment on above: Performed By: #### 8 9579-7 #### [facility] ([id number]) [address] [facility], [address] [place] [address] Cobalamin (Vitamin B12) [Mas s/Vol]on 02-22-2024 [facility] Comprehensive metabolic pane caleb 02-22-2024 Albumin [Mass/Vol] 3.8 g/dL 3.2 - 5.3 g/dL [facility] ALP [Catalytic activity/Vol] 115 U/L 39 - 130 U/L [facility] ALT No additional P-5'-P [Catalytic activity/Vol] 19 U/L 0 - 31 U/L [facility] Anion gap [Moles/Vol] 10 mmol/L 5 - 15 mmol/L [facility] AST [Catalytic activity/Vol] 24 U/L 0 - 41 U/L [facility] Bilirubin [Mass/Vol] 0.5 mg/dL 0.3 - 1 .2 mg/dL [facility] Calcium [Mass/Vol] 8.7 mg/dL 8.5 - 10. 5 mg/dL [facility] Chloride [Moles/Vol] 105 mmol/L 98 - 10 9 mmol/L [facility] CO2 [Moles/Vol] 29 mmol/L 22 - 32 mmol/L [facility] Creatinine [Mass/Vol] 0.74 mg/dL 0.40 - 1.00 mg/dL [facility] Comment on above: METHOD TRACEABLE TO IDNH STANDARD eGFR (CKD-EPI)non-race dependent - PINF [facility] Comment on above: Reported eGFR is based on the CKD-EPI 2020 equation that does not use a race coefficient. Glucose [Mass/Vol] 107 mg/dL High 65 - 99 mg/dL [facility] Interpretation and review of laboratory results Abnormal [facility] Potassium [Moles/Vol] 4 mmol/L 3.5 - 5.0 mmol/L [facility] Protein [Mass/Vol] 7 g/dL 6.0 - 8.0 g/dL [facility] Sodium [Moles/Vol] 144 mmol/L 134 - 146 mmol/L [facility] Urea nitrogen [Mass/Vol] 6 mg/dL 5 - 23 mg/dL [facility] HGB A1C (GLYCO-HGB)on 2023 Glucose [Mass/Vol] 131 mg/dL Normal [facility] Comment on above: Performed By: #### 3 0934-4 #### [facility] ([id number]) [address] [facility], [address] [place] [address] HbA1c (Bld) [Mass fraction] 6.2 % High 4.4-5.6 [facility] Comment on above: Result Comment: NOTE ADA Guidelines Result HgbA1c Normal : less than 5.7 % Prediabetes : 5.7 % to 6.4 % Diabetes : > 6.4 % Use with caution in patients with abnormal hemoglobin variants as the half-life of red blood cells and in vivo glycation rates are affected. Performed By: #### 3 0934-4 #### [facility] ([id number]) [address] [place] [address], [facility] [address] [place] [address] Hemoglobin A1con 02-22-2024 Average glucose Estimated from glycated hemoglobin (Bld) [Mass/Vol] 131 mg/dL [facility] HbA1c (Bld) [Mass fraction] 6.2 % High 4.4 - 5.6 % [facility] Comment on above: NOTE ADA Guidelines Result HgbA1c Normal : less than 5.7 % Prediabetes : 5.7 % to 6.4 % Diabetes : > 6.4 % Use with caution in patients with abnormal hemoglobin variants as the half-life of red blood cells and in vivo glycation rates are affected. Interpretation and review of laboratory results Abnormal [facility] SUPERFICIAL WOUND CULTUREon 02-22-2024 Bacteria identified Aer [...] <=0.5 F DOXYCYCLINE S <=0.5 F Susceptible [facility] Comment on above: Performed By: #### 8 9579-7 #### [facility] ([id number]) [address], [address] [place] [address] THYROID PROFILEon 02-22-2024 Free T4 [Mass/Vol] 0.82 ng/dL Normal 0.61-1.60 [facility] Comment on above: Result Comment: NEW REFERENCE RANGE FOR PEDIATRIC PATIENTS Performed By: #### 8 9579-7 #### [facility] ([id number]) [address], [address] [place] [address] TSH 0.87 uIU/mL Normal 0.49-4.67 [facility] Comment on above: Result Comment: NEW REFERENCE RANGE FOR PEDIATRIC PATIENTS Performed By: #### 8 9579-7 #### [facility] ([id number]) [address], [address] [place] [address] Thyroid profile includes TSH FT4on 02-22-2024 Free T4 [Mass/Vol] 0.82 ng/dL 0.61 - 1. 60 ng/dL [facility] Comment on above: NEW REFERENCE RANGE FOR PEDIATRIC PATIENTS TSH Qn 0.87 m[IU]/L [facility] Comment on above: NEW REFERENCE RANGE FOR PEDIATRIC PATIENTS [facility] URINALYSISon 02-22-2024 Bilirubin Ql (U) Negative Normal NEG [facility] Comment on above: Performed By: #### 8 9579-7 #### [facility] ([id number]) [address] [place] [address] BLOOD/HGB Negative Normal NEG [facility] Comment on above: Performed By: #### 8 9579-7 #### [facility] ([id number]) [address], [address] [place] [address] Color (U) YELLOW Normal YELLOW [facility] Comment on above: Performed By: #### 8 9579-7 #### [facility] ([id number]) [address] [place] [address] Glucose Ql (U) Negative Normal NEG [facility] Comment on above: Performed By: #### 8 9579-7 #### [facility] ([id number]) [address] [place] [address] Ketones Ql (U) Negative Normal NEG [facility] Comment on above: Performed By: #### 8 9579-7 #### [facility] ([id number]) [address] [place] [address] Leukocyte esterase Test strip Ql (U) Negative Normal NEG [facility] Comment on above: Performed By: #### 8 9579-7 #### [facility] ([id number]) [address], [address] [place] [address] MUCOUS PRESENT Abnormal NONE [facility] Comment on above: Performed By: #### 8 9579-7 #### [facility] ([id number]) [address], [address] [place] [address] Nitrite Ql (U) Negative Normal NEG [facility] Comment on above: Performed By: #### 8 9579-7 #### [facility] ([id number]) [address], [address] [place] [address] pH (U) 7.0 [pH] Normal 5.0-8.5 [facility] Comment on above: Performed By: #### 8 9579-7 #### [facility] ([id number]) [address], [address] [place] [address] Protein Ql (U) Trace Abnormal NEG [facility] Comment on above: Performed By: #### 8 9579-7 #### [facility] ([id number]) [address], [address] [place] [address] R.B.CELLS <1 Normal 0-5 [facility] Comment on above: Performed By: #### 8 9579-7 #### [facility] ([id number]) [address], [address] [place] [address] Specific gravity (U) [Rel density] 1.021 Normal 1.003-1.035 [facility] Comment on above: Performed By: #### 8 9579-7 #### [facility] ([id number]) [address], [address] [place] [address] SQUAMOUS EPITHELIUM 1 /hpf Normal 0-5 [facility] Comment on above: Performed By: #### 8 9579-7 #### [facility] ([id number]) [address], [address] [place] [address] TURBIDITY CLEAR Normal CLEAR [facility] Comment on above: Performed By: #### 8 9579-7 #### [facility] ([id number]) [address], [address] [place] [address] Urobilinogen (U) [Mass/Vol] mg/dL Normal <1.1 [facility] Comment on above: Performed By: #### 8 9579-7 #### [facility] ([id number]) [address], [address] [place] [address] W.B.CELLS 2 /hpf Normal 0-5 [facility] Comment on above: Performed By: #### 8 9579-7 #### [facility] ([id number]) [address], [address] [place] [address] URINE CULTUREon 02-22-2024 Bacteria identified Cx Nom (U) CULTURE RESULTS 10-50,000 ORGANISMS/mL NORMAL UROGENITAL SOWMYA Normal [facility] Comment on above: Performed By: #### 8 9579-7 #### [facility] ([id number]) [address], [address] [place] [address] Urinalysis (clean catch)on 04-24-2023 Bilirubin Ql (U) Negative Negative^Ne gative [facility] Color (U) YELLOW YELLOW^YELL OW [facility] Epithelial cells Auto (Urine sed) [#/Area] [address] [facility] Glucose (U) [Mass/Vol] Negative Negat justice^Ne gative mg/dL [facility] Hemoglobin Auto test strip Ql (U) Negative Negative^Ne gative [facility] Interpretation and review of laboratory results Abnormal [facility] Ketones (U) [Mass/Vol] Negative Negat justice^Ne gative mg/dL [facility] Leukocyte esterase Auto test strip Ql (U) Negative Negative^Ne gative [facility] Mucus Ql (Urine sed) PRESENT Abnormal NONE^NONE [facility] Nitrite Auto test strip Ql (U) Negative Negative^Ne gative [facility] pH (U) 7 [pH] 5.0 - 8.[address] [facility] Protein (U) [Mass/Vol] Trace Abnormal Negat justice^Ne gative mg/dL [facility] RBC Auto (Urine sed) [#/Area] [facility] Specific gravity Refractometry automated (U) [Rel density] 1.021 1.003 - 1.035 [facility] Turbidity Ql (U) CLEAR CLEAR^CLEAR [facility] Urobilinogen Qn (U) NINF [facility] WBC Auto (Urine sed) [#/Area] 2 [facility] VITAMIN B12on 02-22-2024 Cobalamin (Vitamin B12) [Mass/Vol] 490 pg/mL Normal 180-914 [facility] Comment on above: Performed By: #### 8 9579-7 #### [facility] ([id number]) [address] [facility], [address] [place] [address] Vitamin B12on 02-22-2024 Cobalamin (Vitamin B12) [Mass/Vol] 490 pg/mL 180 - 914 pg/mL [facility] Vitamin D 25 hydroxyon 02-21 Vitamin D+Metabolites [Mass/Vol] 30.6 ng/mL 30 - 100 ng/mL [facility] Comment on above: Vitamin D status 25 [place] Vitamin D Deficiency <20 ng/mL Insufficiency 20-29 ng/mL Sufficiency 30-100 ng/mL Toxicity >100 ng/mL NOTE: A pediatric reference range has not been established by the computing architect of this kit. The [place] [employer] recommends a Vitamin D level of = or >20ng/mL in infants and children. Vitamin D+Metabolites [Mass/ Vol]on 02-22-2024 [facility] VITAMIN D 25 HYD TOT 30.6 ng/mL Normal 30-100 [facility] Comment on above: Result Comment: Vitamin D status 25 [place] Vitamin D Deficiency <20 ng/mL Insufficiency 20-29 ng/mL Sufficiency 30-100 ng/mL Toxicity >100 ng/mL NOTE: A pediatric reference range has not been established by the computing architect of this kit. The [place] [employer] recommends a Vitamin D level of = or >20ng/mL in infants and children. Performed By: #### 8 9579-7 #### [facility] ([id number]) [address] [facility], [address] [place] [address] PAP IG, APT HPV RFX 16/18,45 on 02-18-2024 HPV APTIMA Positive Abnormal Negative [facility] Comment on above: This nucleic acid am plification test detects fourteen high- risk HPV types (16,18,31,33,35,39,45,51,52,56,58,59,66,68) without differentiation. Interpretation and review of laboratory results Abnormal [facility] PAP IG (IMAGE GUIDED) Note . [facility] Comment on above: TESTS RESULT FLAG UN ITS REF RANGE LAB Clinician Provided Cytology Information Source.............Vagina No. of containers..01 ThinPrep Vial DIAGNOSIS: 01 NEGATIVE FOR INTRAEPITHELIAL LESION OR MALIGNANCY. Specimen adequacy: 01 Satisfactory for evaluation. Performed by: Mariana Orosco, Contract Agent (ASCP) . 01 Note: Note 01 The Pap [...] <-Panic Low,>-Panic High,A-Abnormal,AA-Critical Abnormal Performed at: [address] [facility] [address] [address] Jeannette Priest MD, [facility] HPV GENOTYPE 16 Negative Negative [facility] HPV GENOTYPE 18,45 Positive Abnormal Negative NO [facility] Comment on above: Performed at: - L [address] [id number] Project Specialist: Jeannette Priest MD, Phone: [phone] Performed at: =G - [facility] [address] [id number] Project Specialist: Jeannette Priest MD, Phone: [phone] [facility] e PET CT SKULL TO THIGHon 01-[address] SKULL TO THIGH PET CT SKULL TO PET CT SKULL TO THIGH CLINICAL HISTORY:Right [...] Cruz MD on 01/28/2024 7:55 AM Normal [facility] CBC AND AUTO DIFFon 12-14-19 ABSOLUTE BASOPHIL 0.0 X10E9/L Normal 0.0-0.2 [facility] Comment on above: Performed By: #### 3 0934-4 #### [facility] ([id number]) [address], [address] [place] [address] ABSOLUTE NEUTROPHIL 1.7 X10E9/L Normal 1.5-6.6 [facility] Comment on above: Performed By: #### 3 0934-4 #### [facility] ([id number]) [address], [address] [place] [address] Basophils/100 WBC (Bld) 1.5 % Normal [facility] Comment on above: Performed By: #### 3 0934-4 #### [facility] ([id number]) [address], [address] [place] [address] Eosinophils (Bld) [#/Vol] 0.0 10*3/uL Normal 0.0-0.4 [facility] Comment on above: Performed By: #### 3 0934-4 #### [facility] ([id number]) [address], [address] [place] [address] Eosinophils/100 WBC (Bld) 0.5 % Normal [facility] Comment on above: Performed By: #### 3 0934-4 #### [facility] ([id number]) [address], [address] [place] [address] Erythrocyte distribution width (RBC) [Ratio] 15.7 % High 11.5-15.0 [facility] Comment on above: Performed By: #### 3 0934-4 #### [facility] ([id number]) [address], [address] [place] [address] Hematocrit (Bld) [Volume fraction] 32.7 % Low 35-47 [facility] Comment on above: Performed By: #### 3 0934-4 #### [facility] ([id number]) [address] [place] [address] Hemoglobin (Bld) [Mass/Vol] 10.9 g/dL Low 11.7-15.5 [facility] Comment on above: Performed By: #### 3 0934-4 #### [facility] ([id number]) [address], [address] [place] [address] Lymphocytes (Bld) [#/Vol] 1.1 10*3/uL Normal 1.0-3.5 [facility] Comment on above: Performed By: #### 3 0934-4 #### [facility] ([id number]) [address] [place] [address] Lymphocytes/100 WBC (Bld) 33.2 % Normal [facility] Comment on above: Performed By: #### 3 0934-4 #### [facility] ([id number]) [address], [address] [place] [address] MCH (RBC) [Entitic mass] 31.0 pg Normal 27-34 [facility] Comment on above: Performed By: #### 3 0934-4 #### [facility] ([id number]) [address] [place] [address] MCHC (RBC) [Mass/Vol] 33.4 g/dL Normal 32-36 [facility] Comment on above: Performed By: #### 3 0934-4 #### [facility] ([id number]) [address], [address] [place] [address] MCV (RBC) [Entitic vol] 93 fL Normal 80-100 [facility] Comment on above: Performed By: #### 3 0934-4 #### [facility] ([id number]) [address], [address] [place] [address] Monocytes (Bld) [#/Vol] 0.4 10*3/uL Normal 0-0.9 [facility] Comment on above: Performed By: #### 3 34-4 #### [facility] ([id number]) [address] [place] [address] Monocytes/100 WBC (Bld) 11.6 % Normal [facility] Comment on above: Performed By: #### 3 0934-4 #### [facility] ([id number]) [address], [address] [place] [address] Neutrophils/100 WBC (Bld) 53.2 % Normal [facility] Comment on above: Performed By: #### 3 0934-4 #### [facility] ([id number]) [address] [place] [address] Platelet mean volume (Bld) [Entitic vol] 6.7 fL Low 7-12 [facility] Comment on above: Performed By: #### 3 0934-4 #### [facility] ([id number]) [address] [place] [address] Platelets (Bld) [#/Vol] 342 10*3/uL Normal 150-450 [facility] Comment on above: Performed By: #### 3 0934-4 #### [facility] ([id number]) [address], [address] [place] [address] RBC COUNT 3.53 X10E12/L Low 3.80-5.20 [facility] Comment on above: Performed By: #### 3 0934-4 #### [facility] ([id number]) [address], [address] [place] [address] WBC (Bld) [#/Vol] 3.3 10*3/uL Low 4.0-11.0 [facility] Comment on above: Performed By: #### 3 0934-4 #### [facility] ([id number]) [address], [address] [place] [address] COMPREHENSIVE METABOLIC PANE Caleb 12-14-2023 Albumin [Mass/Vol] 3.5 g/dL Normal 3.2-5.3 [facility] Comment on above: Performed By: #### 3 0934-4 #### [facility] ([id number]) [address] [place] [address] ALP [Catalytic activity/Vol] 100 U/L Normal 39-130 [facility] Comment on above: Performed By: #### 3 0934-4 #### [facility] ([id number]) [address] [place] [address] ALT [Catalytic activity/Vol] 19 U/L Normal 0-31 [facility] Comment on above: Performed By: #### 3 0934-4 #### [facility] ([id number]) [address] [place] [address] Anion gap [Moles/Vol] 8 mmol/L Normal 5-15 [facility] Comment on above: Performed By: #### 3 0934-4 #### [facility] ([id number]) [address] [place] [address] AST [Catalytic activity/Vol] 28 U/L Normal 0-41 [facility] Comment on above: Performed By: #### 3 0934-4 #### [facility] ([id number]) [address] [place] [address] Bilirubin [Mass/Vol] 0.6 mg/dL Normal 0.3-1.2 [facility] Comment on above: Performed By: #### 3 0934-4 #### [facility] ([id number]) [address] [place] [address] Calcium [Mass/Vol] 8.3 mg/dL Low 8.5-10.5 [facility] Comment on above: Performed By: #### 3 0934-4 #### [facility] ([id number]) [address] [place] [address] Chloride [Moles/Vol] 107 mmol/L Normal 98-109 [facility] Comment on above: Performed By: #### 3 0934-4 #### [facility] ([id number]) [address] [place] [address] CO2 [Moles/Vol] 23 mmol/L Normal 22-32 [facility] Comment on above: Performed By: #### 3 0934-4 #### [facility] ([id number]) [address] [place] [address] Creatinine [Mass/Vol] 0.59 mg/dL Normal 0.40-1.00 [facility] Comment on above: Result Comment: METH OD TRACEABLE TO IDMS STANDARD Performed By: #### 3 0934-4 #### [facility] ([id number]) [address] [place] [address] eGFR (CKD-EPI) NON-RACE DEPENDENT >90 Normal >59 [facility] Comment on above: Result Comment: Reported eGFR is based on the CKD-EPI 2020 equation that does not use a race coefficient. Performed By: #### 3 0934-4 #### [facility] ([id number]) [address], [address] [place] [address] Glucose [Mass/Vol] 98 mg/dL Normal 65-99 [facility] Comment on above: Performed By: #### 3 0934-4 #### [facility] ([id number]) [address], [address] [place] [address] Potassium [Moles/Vol] 3.6 mmol/L Normal 3.5-5.0 [facility] Comment on above: Performed By: #### 3 0934-4 #### [facility] ([id number]) [address], [address] [place] [address] Protein [Mass/Vol] 6.5 g/dL Normal 6.0-8.0 [facility] Comment on above: Performed By: #### 3 0934-4 #### [facility] ([id number]) [address], [address] [place] [address] Sodium [Moles/Vol] 138 mmol/L Normal 134-146 [facility] Comment on above: Performed By: #### 3 0934-4 #### [facility] ([id number]) [address], [address] [place] [address] Urea nitrogen [Mass/Vol] 3 mg/dL Low 5-23 [facility] Comment on above: Performed By: #### 3 0934-4 #### [facility] ([id number]) [address], [address] [place] [address] MAGNESIUMon 12-14-2023 Magnesium [Mass/Vol] 1.7 mg/dL Low 1.8-2.6 [facility] Comment on above: Performed By: #### 3 0934-4 #### [facility] ([id number]) [address], [address] [place] [address] 1,3 beta glucan (S) [Mass/Vo l]on 12-13-2023 Fungitell Qualitative Result Negative Normal Negative [facility] Comment on above: Result Comment: NOTE No (1, 3) Rlfy-J-Trtpgy detected. This assay does not detect certain fungi, including Cryptococcus species, which produce very low levels of (1, 3) Trsx-X-Crvyhe (BDG) and the Mucorales (e.g., Lichthemia, Mucor and Rhizopus), which are not known to produce BDG. Additionally, the yeast phase of Blastomyces dermatitidis produces little BDG and may not be detected by this assay. ADDITIONAL INFORMATION This assay was performed using the FDA-cleared Fungitell Assay ([facility], [place], [place], [place]), a kinetic SHERI based on modification of the Limulus Amebocyte Lysate pathway. Test Performed by: [facility] [address] [place] [address] Project Specialist: Raoul Marin Ph.D.; CLIA# [id number] Performed By: #### 3 0934-4 #### [facility] ([id number]) [address] [place] [address], [facility] [address] [place] [address] Fungitell Quantitative Value <31 Normal <60 pg/mL [facility] Comment on above: Performed By: #### 3 0934-4 #### [facility] ([id number]) [address] [place] [address], [facility] [address] [place] [address] BASIC METABOLIC PANLon 12-12 Anion gap [Moles/Vol] 8 mmol/L Normal 5-15 [facility] Comment on above: Performed By: #### C BCA, CMP #### [facility] ([id number]) [address] [place] [address], [facility] [address] [place] [address] #### PINR, [id number], [id number] #### [facility] ([id number]) [address] [place] [address] Calcium [Mass/Vol] 8.6 mg/dL Normal 8.5-10.5 [facility] Comment on above: Performed By: #### C BCA, CMP #### [facility] ([id number]) [address] [place] [address], [address] [place] [address] #### MARCELINA, 19953-3, 18967-4 #### [facility] ([id number]) [address] [place] [address] Chloride [Moles/Vol] 108 mmol/L Normal 98-109 [facility] Comment on above: Performed By: #### Ashkan BCA, CMP #### [facility] ([id number]) [address] [place] [address], [address] [place] [address] #### MARCELINA, 06546-0, 14441-6 #### [facility] ([id number]) [address] [place] [address] CO2 [Moles/Vol] 21 mmol/L Low 22-32 [facility] Comment on above: Performed By: #### Ashkan BCA, CMP #### [facility] ([id number]) [address] [place] [address], [address] [place] [address] #### MARCELINA, 10137-7, 07619-5 #### [facility] ([id number]) [address] [place] [address] Creatinine [Mass/Vol] 0.76 mg/dL Normal 0.40-1.00 [facility] Comment on above: Result Comment: METH OD TRACEABLE TO IDMS STANDARD Performed By: #### Ashkan BCA, CMP #### [facility] ([id number]) [address] [place] [address], [address] [place] [address] #### MARCELINA, 21484-1, 35513-5 #### [facility] ([id number]) [address] [place] [address] eGFR (CKD-EPI) NON-RACE DEPENDENT >90 Normal >59 [facility] Comment on above: Result Comment: Reported eGFR is based on the CKD-EPI 2020 equation that does not use a race coefficient. Performed By: #### C BCA, CMP #### [facility] ([id number]) [address] [facility], [address] [place] [address] #### MARCELINA, 98208-6, 96448-9 #### [facility] ([id number]) [address] [place] [address] Glucose [Mass/Vol] 111 mg/dL High 65-99 [facility] Comment on above: Performed By: #### C BCA, CMP #### [facility] ([id number]) [address] [facility], [address] [place] [address] #### MARCELINA, 38668-0, 27191-7 #### [facility] ([id number]) [address] [place] [address] Potassium [Moles/Vol] 3.7 mmol/L Normal 3.5-5.0 [facility] Comment on above: Performed By: #### C BCA, CMP #### [facility] ([id number]) [address] [facility], [address] [place] [address] #### MARCELINA, 14927-7, 36000-3 #### [facility] ([id number]) [address] [place] [address] Sodium [Moles/Vol] 137 mmol/L Normal 134-146 [facility] Comment on above: Performed By: #### C BCA, CMP #### [facility] ([id number]) [address] [facility], [address] [place] [address] #### MARCELINA, 68423-0, 48383-8 #### [facility] ([id number]) [address] [place] [address] Urea nitrogen [Mass/Vol] 6 mg/dL Normal 5-23 [facility] Comment on above: Performed By: #### C BCA, CMP #### [facility] ([id number]) [address] [facility], [address] [place] [address] #### MARCELINA, 93287-9, 60013-6 #### [facility] ([id number]) [address] [place] [address] CBC AND AUTO DIFFon 12-13-19 24 ABSOLUTE BASOPHIL 0.1 X10E9/L Normal 0.0-0.2 [facility] Comment on above: Performed By: #### C BCA, CMP #### [facility] ([id number]) [facility], [address] [address] #### MARCELINA, 58488-4, 36266-2 #### [facility] ([id number]) [address] [place] [address] ABSOLUTE NEUTROPHIL 1.8 X10E9/L Normal 1.5-6.6 [facility] Comment on above: Performed By: #### Ashkan BCA, CMP #### [facility] ([id number]) [address] [place] [address], [address] [address] #### MARCELINA, 46345-8, 79523-0 #### [facility] ([id number]) [address] [place] [address] Basophils/100 WBC (Bld) 1.6 % Normal [facility] Comment on above: Performed By: #### C BCA, CMP #### [facility] ([id number]) [address] [facility] [address] [place] [address] #### MARCELINA, 42416-4, 40762-6 #### [facility] ([id number]) [address] [place] [address] Eosinophils (Bld) [#/Vol] 0.0 10*3/uL Normal 0.0-0.4 [facility] Comment on above: Performed By: #### C BCA, CMP #### [facility] ([id number]) [address], [address] [place] [address] #### MARCELINA, 85333-8, 34101-1 #### [facility] ([id number]) [address] [place] [address] Eosinophils/100 WBC (Bld) 0.7 % Normal [facility] Comment on above: Performed By: #### C BCA, CMP #### [facility] ([id number]) [address], [address] [place] [address] #### MARCELINA, 45140-3, 37522-4 #### [facility] ([id number]) [address] [place] [address] Erythrocyte distribution width (RBC) [Ratio] 15.9 % High 11.5-15.0 [facility] Comment on above: Performed By: #### C BCA, CMP #### [facility] ([id number]) [address], [address] [place] [address] #### MARCELINA, 29628-9, 83386-0 #### [facility] ([id number]) [address] [place] [address] Hematocrit (Bld) [Volume fraction] 34.0 % Low 35-47 [facility] Comment on above: Performed By: #### C BCA, CMP #### [facility] ([id number]) [address], [address] [place] [address] #### MARCELINA, 89613-0, 73964-9 #### [facility] ([id number]) [address] [place] [address] Hemoglobin (Bld) [Mass/Vol] 11.3 g/dL Low 11.7-15.5 [facility] Comment on above: Performed By: #### C BCA, CMP #### [facility] ([id number]) [address] [facility], [address] [place] [address] #### PINR, [id number], 51089-3 #### [facility] ([id number]) [address] [place] [address] Lymphocytes (Bld) [#/Vol] 1.6 10*3/uL Normal 1.0-3.5 [facility] Comment on above: Performed By: #### C BCA, CMP #### [facility] ([id number]) [facility], [address] [place] [address] #### MARCELINA, 34531-4, 80698-9 #### [facility] ([id number]) [address] [place] [address] 16471 Lymphocytes/100 WBC (Bld) 41.5 % Normal [facility] Comment on above: Performed By: #### C BCA, CMP #### [facility] ([id number]) [address] [facility], [address] [place] [address] #### MARCELINA, 93085-9, 74249-9 #### [facility] ([id number]) [address] [place] [address]26 MCH (RBC) [Entitic mass] 30.9 pg Normal 27-34 [facility] Comment on above: Performed By: #### C BCA, CMP #### [facility] ([id number]) [address] [facility], [address] [place] [address] #### PINR, [id number], 42833-7 #### [facility] ([id number]) [address] [place] [address] MCHC (RBC) [Mass/Vol] 33.3 g/dL Normal 32-36 [facility] Comment on above: Performed By: #### C BCA, CMP #### [facility] ([id number]) [address] [facility], [address] [place] [address] #### MARCELINA, 87695-1, 42051-8 #### [facility] ([id number]) [address] [place] [address]93 MCV (RBC) [Entitic vol] 93 fL Normal 80-100 [facility] Comment on above: Performed By: #### C BCA, CMP #### [facility] ([id number]) [address] [facility], [address] [place] [address] #### MARCELINA, 14690-0, 16742-6 #### [facility] ([id number]) [address] [place] [address]60 Monocytes (Bld) [#/Vol] 0.4 10*3/uL Normal 0-0.9 [facility] Comment on above: Performed By: #### Ashkan BCA, CMP #### [facility] ([id number]) [address] [facility], [address] [place] [address] #### MARCELINA, 25801-2, 60121-9 #### [facility] ([id number]) [address] [place] [address]40[address] Monocytes/100 WBC (Bld) 10.0 % Normal [facility] Comment on above: Performed By: #### C BCA, CMP #### [facility] ([id number]) [address] [facility], [address] [place] [address] #### PINR, [id number], 55323-2 #### [facility] ([id number]) [address] [place] [address] Neutrophils/100 WBC (Bld) 46.2 % Normal [facility] Comment on above: Performed By: #### C BCA, CMP #### [facility] ([id number]) [facility], [address] [place] [address] #### PINR, 52166-3, 12723-8 #### [facility] ([id number]) [address] [place] [address] 16457 Platelet mean volume (Bld) [Entitic vol] 7.4 fL Normal 7-12 [facility] Comment on above: Performed By: #### C BCA, CMP #### [facility] ([id number]) [address] [place] [address], [address] [place] [address] #### PINR, [id number], 47344-0 #### [facility] ([id number]) [address] [place] [address] 51189 Platelets (Bld) [#/Vol] 389 10*3/uL Normal 150-450 [facility] Comment on above: Performed By: #### Ashkan BCA, CMP #### [facility] ([id number]) [address] [place] [address], [address] [place] [address] #### MOYR, 93046-8, 65817-8 #### [facility] ([id number]) [address] [place] [address] 58094 RBC COUNT 3.67 X10E12/L Low 3.80-5.20 [facility] Comment on above: Performed By: #### C BCA, CMP #### [facility] ([id number]) [address] [place] [address], [address] [place] [address] #### PINR, [id number], 17777-4 #### [facility] ([id number]) [address] [place] [address]955 WBC (Bld) [#/Vol] 3.9 10*3/uL Low 4.0-11.0 [facility] Comment on above: Performed By: #### C BCA, CMP #### [facility] ([id number]) [address] [facility], [address] [place] [address] #### PINR, [id number], 88599-2 #### [facility] ([id number]) [address] [place] [address], [place] [address] COCCIDIOIDES AB REFLEXIVE JAZMYN Bhatia 12-13-2023 COCCIDIOIDES AB,IGG 0.4 IV Normal <=0.9 [facility] Comment on above: Result Comment: NOTE [...] the SHERI tests. Performed By: #### 3 0934-4 #### [facility] ([id number]) [address] [place] [address], [address] [place] [address] COCCIDIOIDES IGM 0.1 IV Normal <=0.9 [facility] Comment on above: Result Comment: NOTE [...] represented in the SHERI tests. Performed By: [facility] [employer] [address] [place] [address] Field Spec: Cristopher Amos MD, PhD CLIA Number: [id number] Performed By: #### 3 0934-4 #### [facility] ([id number]) [address], [address] [place] [address] Heparin unfractionated Chrom ogenic method Qn (PPP)on 12-13-2023 ANTI XA UFH 1.18 IU/mL Critically high 0.30-0.70 [facility] Comment on above: Result Comment: Opti mal time for testing is 6 hrs post dosage This test is specific for monitoring patients on UFH, and is not recommended for use with other Anti-Xa medications. Performed By: #### C BCA, CMP #### [facility] ([id number]) [address], [address] [place] [address] #### PINR, [id number], 56301-0 #### [facility] ([id number]) [address] [place] [address], [place] [address] Histoplasma/Blastomyces Agon 12-13-2023 Histo/Blasto Ag Result Not detected Normal Not Detected [facility] Comment on above: Result Comment: NOTE No antigen from Histoplasma or Blastomyces detected. False negative results may occur depending on extent of disease, and/or site of infection. Repeat testing on a new specimen if clinically indicated. Performed By: #### 3 0934-4 #### [facility] ([id number]) [address], [address] [place] [address] Histo/Blasto Ag Value Not detected Normal [facility] Comment on above: Result Comment: NOTE ADDITIONAL INFORMATION This test was developed and its performance characteristics determined by [facility] in a manner consistent with CLIA requirements. This test has not been cleared or approved by the U.S. Food and Drug Administration. Test Performed by: [facility] [address] [place] [address] Project Specialist: Raoul Marin Ph.D.; CLIA# [id number] Performed By: #### 3 0934-4 #### [facility] ([id number]) [address] [place] [address] [place] [facility] ORDERon 024 TEST NAME UHBAG HISTOPLASMA ANTIGEN URINE Normal [facility] TEST RESULT SEE COMMENTS 12/15/2023 01:32 PM Normal [facility] Comment on above: Result Comment: [...] developed and its performance characteristics determined by [facility] in a manner consistent with CLIA requirements. This test has not been cleared or approved by the U.S. Food and Drug Administration. Test Performed by: [facility] [place] [address] Project Specialist: Raoul Marin Ph.D.; CLIA# [id number] aPTT Coag (PPP) [Time]on aPTT Coag (Bld) [Time] 124 s Critically high 26-37 [facility] Comment on above: Performed By: #### 3 0934-4 #### [facility] ([id number]) [address], [address] [place] [address] aPTT Coag (Bld) [Time] 105 s Critically high 26-37 [facility] Comment on above: Result Comment: NEW REFERENCE RANGE Performed By: #### C BCA, CMP #### [facility] ([id number]) [address] [facility], [address] [place] [address] #### MARCELINA, 83327-2, 24872-2 #### [facility] ([id number]) [address] [place] [address]886 CBC AND AUTO DIFFon 12-12-19 24 ABSOLUTE BASOPHIL 0.0 X10E9/L Normal 0.0-0.2 [facility] Comment on above: Performed By: #### C BCA, CMP #### [facility] ([id number]) [facility], [address] [place] [address] #### MARCELINA, 05269-8, 13667-0 #### [facility] ([id number]) [address] [place] [address]251 ABSOLUTE NEUTROPHIL 2.2 X10E9/L Normal 1.5-6.6 [facility] Comment on above: Performed By: #### C BCA, CMP #### [facility] ([id number]) [address] [place] [address], [address] [address] #### MARCELINA, 14449-1, 44875-3 #### [facility] ([id number]) [address] [place] [address] 62407 Basophils/100 WBC (Bld) 1.1 % Normal [facility] Comment on above: Performed By: #### C BCA, CMP #### [facility] ([id number]) [address] [place] [address] [address] [place] [address] #### PINR, 81625-0, 38042-6 #### [facility] ([id number]) [address] [place] [address] 76506 Eosinophils (Bld) [#/Vol] 0.0 10*3/uL Normal 0.0-0.4 [facility] Comment on above: Performed By: #### C BCA, CMP #### [facility] ([id number]) [address], [address] [place] [address] #### MARCELINA, 54110-7, 34347-7 #### [facility] ([id number]) [address] [place] [address] 81054 Eosinophils/100 WBC (Bld) 0.6 % Normal [facility] Comment on above: Performed By: #### C BCA, CMP #### [facility] ([id number]) [address] [facility] [place] [address] #### MARCELINA, 78789-2, 67869-2 #### [facility] ([id number]) [address] [place] [address] 35982 Erythrocyte distribution width (RBC) [Ratio] 15.9 % High 11.5-15.0 [facility] Comment on above: Performed By: #### C BCA, CMP #### [facility] ([id number]) [address] [facility], [address] [place] [address] #### MARCELINA, 27123-0, 03059-5 #### [facility] ([id number]) [address] [place] [address] 10437 Hematocrit (Bld) [Volume fraction] 37.9 % Normal 35-47 [facility] Comment on above: Performed By: #### C BCA, CMP #### [facility] ([id number]) [address] [place] [address] #### MOYR, 91827-3, 07855-0 #### [facility] ([id number]) [address] [place] [address] 10626 Hemoglobin (Bld) [Mass/Vol] 12.5 g/dL Normal 11.7-15.5 [facility] Comment on above: Performed By: #### C BCA, CMP #### [facility] ([id number]) [address] [facility], [address] [place] [address] #### PINR, 90008-3, 71656-5 #### [facility] ([id number]) [address] [place] [address] 78221 Lymphocytes (Bld) [#/Vol] 0.9 10*3/uL Low 1.0-3.5 [facility] Comment on above: Performed By: #### C BCA, CMP #### [facility] ([id number]) [address] [facility], [address] [place] [address] #### MARCELINA, 91731-4, 57892-4 #### [facility] ([id number]) [address] [place] [address] 07646 Lymphocytes/100 WBC (Bld) 26.4 % Normal [facility] Comment on above: Performed By: #### C BCA, CMP #### [facility] ([id number]) [address] [facility] [place] [address] #### MARCELINA, 02035-8, 14925-3 #### [facility] ([id number]) [address] [place] [address] 18703 MCH (RBC) [Entitic mass] 30.7 pg Normal 27-34 [facility] Comment on above: Performed By: #### C BCA, CMP #### [facility] ([id number]) [address] [facility], [address] [place] [address] #### PINR, 27581-0, 07940-6 #### [facility] ([id number]) [address] [place] [address] 84847 MCHC (RBC) [Mass/Vol] 33.1 g/dL Normal 32-36 [facility] Comment on above: Performed By: #### C BCA, CMP #### [facility] ([id number]) [address], [address] [place] [address] #### PINR, 17927-0, 37489-5 #### [facility] ([id number]) [address] [place] [address] 88644 MCV (RBC) [Entitic vol] 93 fL Normal 80-100 [facility] Comment on above: Performed By: #### C BCA, CMP #### [facility] ([id number]) [address] [place] [address] #### MARCELINA, 23489-3, 37431-1 #### [facility] ([id number]) [address] [place] [address] 99722 Monocytes (Bld) [#/Vol] 0.3 10*3/uL Normal 0-0.9 [facility] Comment on above: Performed By: #### Ashkan BCA, CMP #### [facility] ([id number]) [address], [address] [place] [address] #### MARCELINA, [id number], [id number] #### [facility] ([id number]) [address] [place] [address]24 Monocytes/100 WBC (Bld) 9.4 % Normal [facility] Comment on above: Performed By: #### C BCA, CMP #### [facility] ([id number]) [address], [address] [place] [address] #### PINR, [id number], [id number] #### [facility] ([id number]) [address] [place] [address]1043 Neutrophils/100 WBC (Bld) 62.5 % Normal [facility] Comment on above: Performed By: #### C BCA, CMP #### [facility] ([id number]) [address] [place] [address], [address] [place] [address] #### PINR, [id number], [id number] #### [facility] ([id number]) [address] [place] [id number] Platelet mean volume (Bld) [Entitic vol] 6.7 fL Low 7-12 [facility] Comment on above: Performed By: #### C BCA, CMP #### [facility] ([id number]) [address] [place] [address], [address] [place] [address] #### PINR, [id number], [id number] #### [facility] ([id number]) [address] [place] [id number] Platelets (Bld) [#/Vol] 385 10*3/uL Normal 150-450 [facility] Comment on above: Performed By: #### C BCA, CMP #### [facility] [facility] ([id number]) [address] [place] [address], [address] [place] [address] #### PINR, [id number], [id number] #### [facility] ([id number]) [address] [place] [address] 21482 RBC COUNT 4.08 X10E12/L Normal 3.80-5.20 [facility] Comment on above: Performed By: #### C BCA, CMP #### [facility] ([id number]) [address] [place] [address], [address] [place] [address] #### PINR, [id number], 22981-6 #### [facility] ([id number]) [address] [place] [address] 23926 WBC (Bld) [#/Vol] 3.5 10*3/uL Low 4.0-11.0 [facility] Comment on above: Performed By: #### C BCA, CMP #### [facility] ([id number]) [address] [facility], [address] [place] [address] #### PINR, [id number], [id number] #### [facility] ([id number]) [address] [place] [address] 96148 COMPREHENSIVE METABOLIC PANE Caleb 12-12-2023 Albumin [Mass/Vol] 4.0 g/dL Normal 3.2-5.3 [facility] Comment on above: Performed By: #### C BCA, CMP #### [facility] ([id number]) [address] [facility], [address] [place] [address] #### MARCELINA, [id number], 08301-2 #### [facility] ([id number]) [address] [place] [address] 08297 ALP [Catalytic activity/Vol] 133 U/L High 39-130 [facility] Comment on above: Performed By: #### C BCA, CMP #### [facility] ([id number]) [address] [facility], [address] [place] [address] #### MARCELINA, [id number], 57132-3 #### [facility] ([id number]) [address] [place] [address] 51098 ALT [Catalytic activity/Vol] 30 U/L Normal 0-31 [facility] Comment on above: Performed By: #### C BCA, CMP #### [facility] ([id number]) [address] [facility], [address] [place] [address] #### PINR, [id number], 68124-4 #### [facility] ([id number]) [address] [place] [address] 41875 Anion gap [Moles/Vol] 10 mmol/L Normal 5-15 [facility] Comment on above: Performed By: #### C BCA, CMP #### [facility] ([id number]) [address] [place] [address], [address] [place] [address] #### PINR, [id number], [id number] #### [facility] ([id number]) [address] [place] [address] 94277 AST [Catalytic activity/Vol] 49 U/L High 0-41 [facility] Comment on above: Performed By: #### C BCA, CMP #### [facility] ([id number]) [address] [place] [address], [address] [place] [address] #### PINR, [id number], [id number] #### [facility] ([id number]) [address] [place] [address] 55898 Bilirubin [Mass/Vol] 0.7 mg/dL Normal 0.3-1.2 [facility] Comment on above: Performed By: #### C BCA, CMP #### [facility] ([id number]) [address] [place] [address], [address] [place] [address] #### PINR, [id number], [id number] #### [facility] ([id number]) [address] [place] [address] 42321 Calcium [Mass/Vol] 8.9 mg/dL Normal 8.5-10.5 [facility] Comment on above: Performed By: #### C BCA, CMP #### [facility] ([id number]) [address] [place] [address], [address] [place] [address] #### PINR, [id number], 91267-7 #### [facility] ([id number]) [address] [place] [address] 52906 Chloride [Moles/Vol] 107 mmol/L Normal 98-109 [facility] Comment on above: Performed By: #### C BCA, CMP #### [facility] ([id number]) [address] [place] [address], [address] [place] [address] #### PINR, [id number], 66919-1 #### [facility] ([id number]) [address] [place] [address] 46474 CO2 [Moles/Vol] 21 mmol/L Low 22-32 [facility] Comment on above: Performed By: #### C BCA, CMP #### [facility] ([id number]) [address] [place] [address], [facility] [address] [place] [address] #### PINR, [id number], 97470-6 #### [facility] ([id number]) [address] [place] [address] 29725 Creatinine [Mass/Vol] 0.78 mg/dL Normal 0.40-1.00 [facility] Comment on above: Result Comment: METH OD TRACEABLE TO IDMS STANDARD Performed By: #### C BCA, CMP #### [facility] ([id number]) [address] [place] [address] #### PINR, [id number], 29882-7 #### [facility] ([id number]) [address] [place] [address] 78820 eGFR (CKD-EPI) NON-RACE DEPENDENT >90 Normal >59 [facility] Comment on above: Result Comment: Reported eGFR is based on the CKD-EPI 2020 equation that does not use a race coefficient. Performed By: #### C BCA, CMP #### [facility] ([id number]) [address] [place] [address] [address] [place] [address] #### PINR, [id number], 45559-0 #### [facility] ([id number]) [address] [place] [address] 79704 Glucose [Mass/Vol] 123 mg/dL High 65-99 [facility] Comment on above: Performed By: #### C BCA, CMP #### [facility] ([id number]) [address] [facility], [address] [place] [address] #### MARCELINA, [id number], 89392-0 #### [facility] ([id number]) [address] [place] [address] 21073 Potassium [Moles/Vol] 4.0 mmol/L Normal 3.5-5.0 [facility] Comment on above: Performed By: #### C BCA, CMP #### [facility] ([id number]) [address] [facility], [address] [place] [address] #### MARCELINA, 95785-6, 63608-2 #### [facility] ([id number]) [address] [place] [address] 06689 Protein [Mass/Vol] 8.0 g/dL Normal 6.0-8.0 [facility] Comment on above: Performed By: #### C BCA, CMP #### [facility] ([id number]) [address] [facility], [address] [place] [address] #### MARCELINA, 37098-5, 20212-1 #### [facility] ([id number]) [address] [place] [address] 91527 Sodium [Moles/Vol] 138 mmol/L Normal 134-146 [facility] Comment on above: Performed By: #### C BCA, CMP #### [facility] ([id number]) [address] [facility], [address] [place] [address] #### PINR, [id number], 03611-1 #### [facility] ([id number]) [address] [place] [address] 11485 Urea nitrogen [Mass/Vol] 6 mg/dL Normal 5-23 [facility] Comment on above: Performed By: #### C BCA, CMP #### [facility] ([id number]) [address] [facility], [address] [place] [address] #### PINR, [id number], 90784-2 #### [facility] ([id number]) [address] [place] [address], [place] [address] CT CTA CHESTon 12-12-2023 CT CTA CHEST [...] Vaz MD on 12/12/2023 6:55 PM Normal [facility] Fibrin D-dimer DDU (PPP) [Ma ss/Vol]on 12-12-2023 D DIMER 714 ng/mL DDU High <255 [facility] Comment on above: Result Comment: Results >=255ng/mL DDU: Results may be indicative of the presence of VTE. The use of the Wells score and further diagnostic tests should be considered. Elevated D-Dimer levels can also be associated with DIC, neoplasm, , trauma and liver disease. Elevated levels of rheumatoid factor may lead to an overestimation of the D-Dimer level. Performed By: #### C MAHIN, CMP #### [facility] ([id number]) [address] [place] [address], [address] [address] #### PINR, [id number], 83893-5 #### [facility] ([id number]) [address] [place] [address] 12731 Natriuretic peptide B [Mass/ Vol]on 12-12-2023 Natriuretic peptide B (Bld) [Mass/Vol] 43 pg/mL Normal <100.0 [facility] Comment on above: Performed By: #### C BCA, CMP #### [facility] ([id number]) [address] [place] [address], [address] [address] #### PINR, [id number], 33132-3 #### [facility] ([id number]) [address] [place] [address] 11106 PROTIME AND INRon 12-12-2023 INR Coag (PPP) [Relative time] 2.2 {INR} High 0.8-1.1 [facility] Comment on above: Performed By: #### C BCA, CMP #### [facility] ([id number]) [address] [place] [address], [address] [place] [address] #### PINR, [id number], 24125-1 #### [facility] ([id number]) [address] [facility], [place] [address] PT Coag (PPP) [Time] 24.7 s High 9.8-13.2 [facility] Comment on above: Result Comment: NEW REFERENCE RANGE Performed By: #### C BCA, CMP #### [facility] ([id number]) [address] [facility], [address] [place] [address] #### PINR, 47363-3, 10440-1 #### [facility] ([id number]) [address] [place] [address] SARS/FLU A+B/RSV by NAAT/Mol ecularon 12-12-2023 SARS/FLU [...] operators who are performing tests using either [employer] or [employer] systems and is limited to laboratories that [...] specimen repeat. Fact Sheet for Healthcare Providers: https://www.fda.gov/mn rosanne/238898/download Fact Sheet for Patients: https://www.fda.gov/mn rosanne/394711/download Normal [facility] Comment on above: Performed By: #### C BCA, CMP #### [facility] ([id number]) [address] [place] [address], [place] [address] #### PINR, 21129-4, 40267-4 #### [facility] ([id number]) [address] [place] [address] 46774 Troponin I.cardiac High sens itivity method [Mass/Vol]on 12-12-2023 1 HOUR TROP I, HIGH SENSITIVITY 7 ng/L Normal <16 [facility] Comment on above: Performed By: #### C BCA, CMP #### [facility] ([id number]) [address] [place] [address], [address] [address] #### PINR, 08609-4, 27786-9 #### [facility] ([id number]) [address] [place] [address] 83402 TROPONIN I, HIGH SENSITIVITY 6 ng/L Normal <16 [facility] Comment on above: Performed By: #### C BCA, CMP #### [facility] ([id number]) [address] [place] [address], [address] [address] #### PINR, [id number], 10243-1 #### [facility] ([id number]) [address] [facility], [place] [address] aPTT Coag (PPP) [Time]on aPTT Coag (Bld) [Time] 46 s High 26-37 [facility] Comment on above: Result Comment: NEW REFERENCE RANGE Performed By: #### C BCA, CMP #### [facility] ([id number]) [address], [address] [place] [address] #### PINR, 99973-2, 67362-7 #### [facility] ([id number]) [address] [place] [address] 21442 CBC AND AUTO DIFFon 12-09-19 24 ABSOLUTE BASOPHIL 0.0 X10E9/L Normal 0.0-0.2 [facility] Comment on above: Performed By: #### P INR, 66571-6, 327-8 #### [facility] ([id number]) [address], [address] [place] [address] ABSOLUTE NEUTROPHIL 1.6 X10E9/L Normal 1.5-6.6 [facility] Comment on above: Performed By: #### P INR, 18178-5, 3274-8 #### [facility] ([id number]) [address], [address] [place] [address] Basophils/100 WBC (Bld) 0.7 % Normal [facility] Comment on above: Performed By: #### P INR, 27046-7, 4-8 #### [facility] ([id number]) [address], [address] [place] [address] Eosinophils (Bld) [#/Vol] 0.0 10*3/uL Normal 0.0-0.4 [facility] Comment on above: Performed By: #### P INR, 93539-6, 3273-8 #### [facility] ([id number]) [address], [address] [place] [address] Eosinophils/100 WBC (Bld) 1.4 % Normal [facility] Comment on above: Performed By: #### P INR, 80656-8, 8 #### [facility] ([id number]) [address], [address] [place] [address] Erythrocyte distribution width (RBC) [Ratio] 16.2 % High 11.5-15.0 [facility] Comment on above: Performed By: #### P INR, 72788-1, 3273-8 #### [facility] ([id number]) [address], [address] [place] [address] Hematocrit (Bld) [Volume fraction] 32.3 % Low 35-47 [facility] Comment on above: Performed By: #### P INR, 05805-9, 8 #### [facility] ([id number]) [address], [address] [place] [address] Hemoglobin (Bld) [Mass/Vol] 9.9 g/dL Low 11.7-15.5 [facility] Comment on above: Performed By: #### P INR, 66948-4, 8 #### [facility] ([id number]) [address], [address] [place] [address] Lymphocytes (Bld) [#/Vol] 1.1 10*3/uL Normal 1.0-3.5 [facility] Comment on above: Performed By: #### P INR, 31998-2, 3273-8 #### [facility] ([id number]) [address], [address] [place] [address] Lymphocytes/100 WBC (Bld) 36.9 % Normal [facility] Comment on above: Performed By: #### P INR, 36827-8, 3273- #### [facility] ([id number]) [address], [address] [place] [address] MCH (RBC) [Entitic mass] 28.2 pg Normal 27-34 [facility] Comment on above: Performed By: #### P INR, 05618-7, 3273-8 #### [facility] ([id number]) [address], [address] [place] [address] MCHC (RBC) [Mass/Vol] 30.8 g/dL Low 32-36 [facility] Comment on above: Performed By: #### P INR, 85539-8, 3273-8 #### [facility] ([id number]) [address], [address] [place] [address] MCV (RBC) [Entitic vol] 92 fL Normal 80-100 [facility] Comment on above: Performed By: #### P INR, 42460-7, 8 #### [facility] ([id number]) [address], [address] [place] [address] Monocytes (Bld) [#/Vol] 0.3 10*3/uL Normal 0-0.9 [facility] Comment on above: Performed By: #### P INR, 00433-2, 8 #### [facility] ([id number]) [address], [address] [place] [address] Monocytes/100 WBC (Bld) 11.1 % Normal [facility] Comment on above: Performed By: #### P INR, 44494-3, 3273-8 #### [facility] ([id number]) [address], [address] [place] [address] Neutrophils/100 WBC (Bld) 49.9 % Normal [facility] Comment on above: Performed By: #### P INR, 66482-5, 3273-8 #### [facility] ([id number]) [address], [address] [place] [address] Platelet mean volume (Bld) [Entitic vol] 7.5 fL Normal 7-12 [facility] Comment on above: Performed By: #### P INR, 78237-2, 3273-8 #### [facility] ([id number]) [address], [address] [place] [address] Platelets (Bld) [#/Vol] 335 10*3/uL Normal 150-450 [facility] Comment on above: Performed By: #### P INR, 05580-2, 3273-8 #### [facility] ([id number]) [address], [facility] [address] [place] [address] RBC COUNT 3.52 X10E12/L Low 3.80-5.20 [facility] Comment on above: Performed By: #### P INR, 33165-2, 3273-8 #### [facility] ([id number]) [address], [address] [place] [address] WBC (Bld) [#/Vol] 3.1 10*3/uL Low 4.0-11.0 [facility] Comment on above: Performed By: #### P INR, 49175-1, 3273-8 #### [facility] ([id number]) [address], [address] [place] [address] COMPREHENSIVE METABOLIC PANE Caleb 12-09-2023 Albumin [Mass/Vol] 3.4 g/dL Normal 3.2-5.3 [facility] Comment on above: Performed By: #### P INR, 62674-1, 3273-8 #### [facility] ([id number]) [address], [address] [place] [address] ALP [Catalytic activity/Vol] 99 U/L Normal 39-130 [facility] Comment on above: Performed By: #### P INR, 59157-1, 3273-8 #### [facility] ([id number]) [address], [address] [place] [address] ALT [Catalytic activity/Vol] 21 U/L Normal 0-31 [facility] Comment on above: Performed By: #### P INR, 53531-4, 3274-8 #### [facility] ([id number]) [address], [address] [place] [address] Anion gap [Moles/Vol] 9 mmol/L Normal 5-15 [facility] Comment on above: Performed By: #### P INR, 65759-1, 3274-8 #### [facility] ([id number]) [address], [address] [place] [address] AST [Catalytic activity/Vol] 33 U/L Normal 0-41 [facility] Comment on above: Performed By: #### P INR, 84303-6, 327-8 #### [facility] ([id number]) [address], [address] [place] [address] Bilirubin [Mass/Vol] 0.3 mg/dL Normal 0.3-1.2 [facility] Comment on above: Performed By: #### P INR, 52971-9, 3274-8 #### [facility] ([id number]) [address], [address] [place] [address] Calcium [Mass/Vol] 8.4 mg/dL Low 8.5-10.5 [facility] Comment on above: Performed By: #### P INR, 51298-6, 3274-8 #### [facility] ([id number]) [address], [address] [place] [address] Chloride [Moles/Vol] 110 mmol/L High 98-109 [facility] Comment on above: Performed By: #### P INR, 11137-5, 3274-8 #### [facility] ([id number]) [address], [address] [place] [address] CO2 [Moles/Vol] 23 mmol/L Normal 22-32 [facility] Comment on above: Performed By: #### P INR, 52538-6, 3273-8 #### [facility] ([id number]) [address], [address] [place] [address] Creatinine [Mass/Vol] 0.74 mg/dL Normal 0.40-1.00 [facility] Comment on above: Result Comment: METH OD TRACEABLE TO IDMS STANDARD Performed By: #### P INR, 29443-7, 3273-8 #### [facility] ([id number]) [address], [facility] [address] [place] [address] eGFR (CKD-EPI) NON-RACE DEPENDENT >90 Normal >59 [facility] Comment on above: Result Comment: Reported eGFR is based on the CKD-EPI 2020 equation that does not use a race coefficient. Performed By: #### P INR, 13914-7, 3273-8 #### [facility] ([id number]) [address], [address] [place] [address] Glucose [Mass/Vol] 113 mg/dL High 65-99 [facility] Comment on above: Performed By: #### P INR, 32181-5, 3273-8 #### [facility] ([id number]) [address], [address] [place] [address] Potassium [Moles/Vol] 4.2 mmol/L Normal 3.5-5.0 [facility] Comment on above: Result Comment: SPEC IMEN HEMOLYZED, RESULTS INCREASED MODERATELY HEMOLYZED Performed By: #### P INR, 80147-8, 3273-8 #### [facility] ([id number]) [address], [address] [place] [address] Protein [Mass/Vol] 6.2 g/dL Normal 6.0-8.0 [facility] Comment on above: Performed By: #### P INR, 28578-1, 3274-8 #### [facility] ([id number]) [address], [address] [place] [address] Sodium [Moles/Vol] 142 mmol/L Normal 134-146 [facility] Comment on above: Performed By: #### P INR, 63657-6, 327-8 #### [facility] ([id number]) [address], [address] [address] Urea nitrogen [Mass/Vol] 7 mg/dL Normal 5-23 [facility] Comment on above: Performed By: #### P INR, 69833-2, 3273-8 #### [facility] ([id number]) [address], [address] [address] Heparin unfractionated Chrom ogenic method Qn (PPP)on 12-09-2023 ANTI XA UFH 0.19 IU/mL Low 0.30-0.70 [facility] Comment on above: Result Comment: Opti mal time for testing is 6 hrs post dosage This test is specific for monitoring patients on UFH, and is not recommended for use with other Anti-Xa medications. Performed By: #### P INR, 68154-5, 327-8 #### [facility] ([id number]) [address], [facility] [address] [place] [address] MAGNESIUMon 12-09-2023 Magnesium [Mass/Vol] 1.8 mg/dL Normal 1.8-2.6 [facility] Comment on above: Performed By: #### P INR, 50919-3, 3274-8 #### [facility] ([id number]) [address] [address] PROTIME AND INRon 12-09-2023 INR Coag (PPP) [Relative time] 1.1 {INR} Normal 0.8-1.1 [facility] Comment on above: Performed By: #### P INR, 78108-7, 8 #### [facility] ([id number]) [address], [address] [place] [address] PT Coag (PPP) [Time] 13.2 s Normal 9.8-13.2 [facility] Comment on above: Performed By: #### P INR, 32695-5, 3273-8 #### [facility] ([id number]) [address], [address] [place] [address] aPTT Coag (PPP) [Time]on aPTT Coag (Bld) [Time] 38 s High 26-37 [facility] Comment on above: Performed By: #### P INR, 55229-9, 3273-8 #### [facility] ([id number]) [address], [address] [place] [address] CBC AND AUTO DIFFon 12-08-19 24 Eosinophils (Bld) [#/Vol] 0.1 10*3/uL Normal 0.0-0.4 [facility] Comment on above: Performed By: #### P INR, 94193-2, 3273-8 #### [facility] ([id number]) [address], [address] [place] [address] Eosinophils/100 WBC (Bld) 1.9 % Normal [facility] Comment on above: Performed By: #### P INR, 29841-9, 3273-8 #### [facility] ([id number]) [address], [address] [place] [address] Erythrocyte distribution width (RBC) [Ratio] 15.8 % High 11.5-15.0 [facility] Comment on above: Performed By: #### P INR, 31623-4, 3273-8 #### [facility] ([id number]) [address], [address] [place] [address] Hematocrit (Bld) [Volume fraction] 32.7 % Low 35-47 [facility] Comment on above: Performed By: #### P INR, 53654-2, 8 #### [facility] ([id number]) [address], [address] [place] [address] Hemoglobin (Bld) [Mass/Vol] 10.8 g/dL Low 11.7-15.5 [facility] Comment on above: Performed By: #### P INR, 63174-9, 3273-10 #### [facility] ([id number]) [address], [facility] [address] [place] [address] Lymphocytes (Bld) [#/Vol] 1.0 10*3/uL Normal 1.0-3.5 [facility] Comment on above: Performed By: #### P INR, 41648-8, 3273- #### [facility] ([id number]) [address], [address] [place] [address] Lymphocytes/100 WBC (Bld) 34.3 % Normal [facility] Comment on above: Performed By: #### P INR, 00421-0, 8 #### [facility] ([id number]) [address], [address] [place] [address] MCH (RBC) [Entitic mass] 30.3 pg Normal 27-34 [facility] Comment on above: Performed By: #### P INR, 50403-1, 3273-10 #### [facility] ([id number]) [address], [address] [place] [address] MCHC (RBC) [Mass/Vol] 33.1 g/dL Normal 32-36 [facility] Comment on above: Performed By: #### P INR, 08794-2, 3273- #### [facility] ([id number]) [address], [address] [place] [address] MCV (RBC) [Entitic vol] 92 fL Normal 80-100 [facility] Comment on above: Performed By: #### P INR, 79089-1, 8 #### [facility] ([id number]) [address], [address] [place] [address] Monocytes (Bld) [#/Vol] 0.2 10*3/uL Normal 0-0.9 [facility] Comment on above: Performed By: #### P INR, 27928-4, 3273- #### [facility] ([id number]) [address], [address] [place] [address] Monocytes/100 WBC (Bld) 8.6 % Normal [facility] Comment on above: Performed By: #### P INR, 27038-2, 8 #### [facility] ([id number]) [address], [address] [place] [address] Neutrophils (Bld) [#/Vol] 1.5 10*3/uL Normal 1.5-6.6 [facility] Comment on above: Performed By: #### P INR, 38739-8, 8 #### [facility] ([id number]) [address], [address] [place] [address] Platelet mean volume (Bld) [Entitic vol] 6.7 fL Low 7-12 [facility] Comment on above: Performed By: #### P INR, 23810-4, 8 #### [facility] ([id number]) [address], [address] [place] [address] Platelets (Bld) [#/Vol] 297 10*3/uL Normal 150-450 [facility] Comment on above: Performed By: #### P INR, 54487-6, 3273-8 #### [facility] ([id number]) [address], [address] [place] [address] RBC COUNT 3.56 X10E12/L Low 3.80-5.20 [facility] Comment on above: Performed By: #### P INR, 76499-6, 3273-8 #### [facility] ([id number]) [address], [address] [place] [address] RBC morphology finding Nom (Bld) NORMAL Normal [facility] Comment on above: Performed By: #### P INR, 97543-5, 3273-8 #### [facility] ([id number]) [address], [address] [place] [address] SEG NEUTROPHIL 55.2 % Normal [facility] Comment on above: Performed By: #### P INR, 17388-2, 3273-8 #### [facility] ([id number]) [address], [address] [place] [address] WBC (Bld) [#/Vol] 2.8 10*3/uL Low 4.0-11.0 [facility] Comment on above: Performed By: #### P INR, 61392-8, 3274-8 #### [facility] ([id number]) [address], [address] [place] [address] COMPREHENSIVE METABOLIC PANE Caleb 12-08-2023 Albumin [Mass/Vol] 3.2 g/dL Normal 3.2-5.3 [facility] Comment on above: Performed By: #### P INR, 03528-2, 3273-8 #### [facility] ([id number]) [address], [address] [place] [address] ALP [Catalytic activity/Vol] 100 U/L Normal 39-130 [facility] Comment on above: Performed By: #### P INR, 43600-6, 3273-8 #### [facility] ([id number]) [address], [address] [place] [address] ALT [Catalytic activity/Vol] 19 U/L Normal 0-31 [facility] Comment on above: Performed By: #### P INR, 52207-2, 3273-8 #### [facility] ([id number]) [address], [address] [place] [address] Anion gap [Moles/Vol] 8 mmol/L Normal 5-15 [facility] Comment on above: Performed By: #### P INR, 25640-2, 3273-8 #### [facility] ([id number]) [address], [address] [place] [address] AST [Catalytic activity/Vol] 28 U/L Normal 0-41 [facility] Comment on above: Performed By: #### P INR, 51557-4, 3273-8 #### [facility] ([id number]) [address], [address] [place] [address] Bilirubin [Mass/Vol] 0.5 mg/dL Normal 0.3-1.2 [facility] Comment on above: Performed By: #### P INR, 97452-0, 3273-8 #### [facility] ([id number]) [address], [address] [place] [address] Calcium [Mass/Vol] 8.1 mg/dL Low 8.5-10.5 [facility] Comment on above: Performed By: #### P INR, 10693-9, 3273-8 #### [facility] ([id number]) [address], [address] [place] [address] Chloride [Moles/Vol] 109 mmol/L Normal 98-109 [facility] Comment on above: Performed By: #### P INR, 75372-0, 3273-8 #### [facility] ([id number]) [address], [address] [place] [address] CO2 [Moles/Vol] 25 mmol/L Normal 22-32 [facility] Comment on above: Performed By: #### P INR, 33587-0, 8 #### [facility] ([id number]) [address], [address] [place] [address] Creatinine [Mass/Vol] 0.64 mg/dL Normal 0.40-1.00 [facility] Comment on above: Result Comment: METH OD TRACEABLE TO IDMS STANDARD Performed By: #### P INR, 52466-5, 3273-8 #### [facility] ([id number]) [address], [address] [place] [address] eGFR (CKD-EPI) NON-RACE DEPENDENT >90 Normal >59 [facility] Comment on above: Result Comment: Reported eGFR is based on the CKD-EPI 2020 equation that does not use a race coefficient. Performed By: #### P INR, 47241-9, 3273-8 #### [facility] ([id number]) [address], [address] [place] [address] Glucose [Mass/Vol] 99 mg/dL Normal 65-99 [facility] Comment on above: Performed By: #### P INR, 75861-0, 8 #### [facility] ([id number]) [address], [address] [place] [address] Potassium [Moles/Vol] 3.6 mmol/L Normal 3.5-5.0 [facility] Comment on above: Performed By: #### P INR, 47818-2, 8 #### [facility] ([id number]) [address], [address] [place] [address] Protein [Mass/Vol] 6.0 g/dL Normal 6.0-8.0 [facility] Comment on above: Performed By: #### P INR, 63795-0, 3273-8 #### [facility] ([id number]) [address], [address] [place] [address] Sodium [Moles/Vol] 142 mmol/L Normal 134-146 [facility] Comment on above: Performed By: #### P INR, 12860-9, 3274-8 #### [facility] ([id number]) [address] [address] Urea nitrogen [Mass/Vol] 5 mg/dL Normal 5-23 [facility] Comment on above: Performed By: #### P INR, 55719-7, 3274-8 #### [facility] ([id number]) [address], [address] [address] Fibrinogen Coagulation.deriv ed (PPP) [Mass/Vol]on 12-08-2023 FIBRINOGEN 365 mg/dL Normal 190-480 [facility] Comment on above: Performed By: #### P INR, 65221-7, 3274-8 #### [facility] ([id number]) [address], [address] [address] FIBRINOGEN 358 mg/dL Normal 190-480 [facility] Comment on above: Performed By: #### P INR, 06686-7, 3274-8 #### [facility] ([id number]) [address] [address] HGB AND HCTon 12-08-2023 Hematocrit (Bld) [Volume fraction] 32.8 % Low 35-47 [facility] Comment on above: Performed By: #### P INR, 70774-1, 3274-8 #### [facility] ([id number]) [address] [address] Hemoglobin (Bld) [Mass/Vol] 10.9 g/dL Low 11.7-15.5 [facility] Comment on above: Performed By: #### P INR, 99140-4, 3274-8 #### [facility] ([id number]) [address] [address] Heparin unfractionated Chrom ogenic method Qn (PPP)on 12-08-2023 ANTI XA UFH 0.05 IU/mL Low 0.30-0.70 [facility] Comment on above: Result Comment: Opti mal time for testing is 6 hrs post dosage This test is specific for monitoring patients on UFH, and is not recommended for use with other Anti-Xa medications. Performed By: #### P INR, 62137-3, 3273-8 #### [facility] ([id number]) [address], [address] [place] [address] MAGNESIUMon 12-08-2023 Magnesium [Mass/Vol] 2.2 mg/dL Normal 1.8-2.6 [facility] Comment on above: Performed By: #### P INR, 42614-0, 3273-8 #### [facility] ([id number]) [address] [address] [place] [address] Magnesium [Mass/Vol] 1.8 mg/dL Normal 1.8-2.6 [facility] Comment on above: Performed By: #### P INR, 97590-1, 3273-8 #### [facility] ([id number]) [address] [address] PLATELET COUNT AND MPVon Platelet mean volume (Bld) [Entitic vol] 7.0 fL Normal 7-12 [facility] Comment on above: Performed By: #### P INR, 52570-8, 3273-8 #### [facility] ([id number]) [address], [address] [place] [address] Platelets (Bld) [#/Vol] 293 10*3/uL Normal 150-450 [facility] Comment on above: Performed By: #### P INR, 68900-3, 3273-8 #### [facility] ([id number]) [address], [address] [place] [address] POTASSIUMon 12-08-2023 Potassium [Moles/Vol] 3.8 mmol/L Normal 3.5-5.0 [facility] Comment on above: Performed By: #### P INR, 65788-1, 3274-8 #### [facility] ([id number]) [address], [address] [place] [address] PROTIME AND INRon 12-08-2023 INR Coag (PPP) [Relative time] 1.1 {INR} Normal 0.8-1.1 [facility] Comment on above: Performed By: #### P INR, 64277-0, 3274-8 #### [facility] ([id number]) [address], [address] [place] [address] PT Coag (PPP) [Time] 12.8 s Normal 9.8-13.2 [facility] Comment on above: Performed By: #### P INR, 27179-4, 3274-8 #### [facility] ([id number]) [address], [address] [place] [address] aPTT Coag (PPP) [Time]on aPTT Coag (Bld) [Time] 34 s Normal 26-[address] [facility] Comment on above: Performed By: #### P INR, 44814-3, 3274-8 #### [facility] ([id number]) [address], [address] [place] [address] BASIC METABOLIC PANLon 12-06 Anion gap [Moles/Vol] 12 mmol/L Normal 5-15 [facility] Comment on above: Performed By: #### P INR, 99300-2, 3274-8 #### [facility] ([id number]) [address], [address] [place] [address] Calcium [Mass/Vol] 8.2 mg/dL Low 8.5-10.5 [facility] Comment on above: Performed By: #### P INR, 25441-5, 3273-10 #### [facility] ([id number]) [address], [address] [place] [address] Chloride [Moles/Vol] 107 mmol/L Normal 98-109 [facility] Comment on above: Performed By: #### P INR, 38633-1, 3273-8 #### [facility] ([id number]) [address], [address] [place] [address] CO2 [Moles/Vol] 23 mmol/L Normal 22-32 [facility] Comment on above: Performed By: #### P INR, 28723-4, 8 #### [facility] ([id number]) [address], [address] [place] [address] Creatinine [Mass/Vol] 0.68 mg/dL Normal 0.40-1.00 [facility] Comment on above: Result Comment: METH OD TRACEABLE TO IDMS STANDARD Performed By: #### P INR, 03817-0, 8 #### [facility] ([id number]) [address], [address] [place] [address] eGFR (CKD-EPI) NON-RACE DEPENDENT >90 Normal >59 [facility] Comment on above: Result Comment: Reported eGFR is based on the CKD-EPI 2020 equation that does not use a race coefficient. Performed By: #### P INR, 17671-5, 3273-10 #### [facility] ([id number]) [address], [address] [place] [address] Glucose [Mass/Vol] 89 mg/dL Normal 65-99 [facility] Comment on above: Performed By: #### P INR, 03985-7, 8 #### [facility] ([id number]) [address], [address] [place] [address] Potassium [Moles/Vol] 3.7 mmol/L Normal 3.5-5.0 [facility] Comment on above: Performed By: #### P INR, 23288-9, 3274-8 #### [facility] ([id number]) [address], [address] [place] [address] Sodium [Moles/Vol] 142 mmol/L Normal 134-146 [facility] Comment on above: Performed By: #### P INR, 85825-6, 3274-8 #### [facility] ([id number]) [address], [address] [place] [address] Urea nitrogen [Mass/Vol] 6 mg/dL Normal 5-23 [facility] Comment on above: Performed By: #### P INR, 63526-6, 3274-8 #### [facility] ([id number]) [address], [address] [place] [address] Fibrinogen Coagulation.deriv ed (PPP) [Mass/Vol]on 12-07-2023 FIBRINOGEN 370 mg/dL Normal 190-480 [facility] Comment on above: Performed By: #### H H, PLTCT, 46835-7, PINR, 22407-1, 3274-8, BMP #### [facility] ([id number]) [address], [address] [place] [address] HGB AND HCTon 12-07-2023 Hematocrit (Bld) [Volume fraction] 34.1 % Low 35-47 [facility] Comment on above: Performed By: #### H H, PLTCT, 44480-4, PINR, 02462-7, 3274-8, BMP #### [facility] ([id number]) [address], [facility] [address] [place] [address] Hemoglobin (Bld) [Mass/Vol] 11.4 g/dL Low 11.7-15.5 [facility] Comment on above: Performed By: #### H H, PLTCT, 83534-2, PINR, 57124-8, 3274-8, BMP #### [facility] ([id number]) [address], [address] [place] [address] Heparin unfractionated Chrom ogenic method Qn (PPP)on 12-07-2023 ANTI XA UFH 0.86 IU/mL High 0.30-0.70 [facility] Comment on above: Result Comment: Opti mal time for testing is 6 hrs post dosage This test is specific for monitoring patients on UFH, and is not recommended for use with other Anti-Xa medications. Performed By: #### P INR, 09109-0, 3274-8 #### [facility] ([id number]) [address], [address] [place] [address] ANTI XA UFH 0.65 IU/mL Normal 0.30-0.70 [facility] Comment on above: Result Comment: Opti mal time for testing is 6 hrs post dosage This test is specific for monitoring patients on UFH, and is not recommended for use with other Anti-Xa medications. Performed By: #### P INR, 17866-1, 3274-8 #### [facility] ([id number]) [address], [address] [place] [address] Natriuretic peptide B [Mass/ Vol]on 12-07-2023 Natriuretic peptide B (Bld) [Mass/Vol] 121 pg/mL High <100.0 [facility] Comment on above: Performed By: #### 3 0934-4 #### [facility] ([id number]) [address], [address] [place] [address] PLATELET COUNT AND MPVon Platelet mean volume (Bld) [Entitic vol] 6.8 fL Low 7-12 [facility] Comment on above: Performed By: #### H H, PLTCT, 90533-1, PINR, 83706-5, 3274-8, BMP #### [facility] ([id number]) [address], [address] [place] [address] Platelets (Bld) [#/Vol] 325 10*3/uL Normal 150-450 [facility] Comment on above: Performed By: #### H H, PLTCT, 85873-1, PINR, 80741-3, 3274-8, BMP #### [facility] ([id number]) [address], [address] [place] [address] PROTIME AND INRon 12-07-2023 INR Coag (PPP) [Relative time] 1.2 {INR} High 0.8-1.1 [facility] Comment on above: Performed By: #### H H, PLTCT, 77122-1, PINR, 64169-8, 3274-8, BMP #### [facility] ([id number]) [address], [address] [place] [address] PT Coag (PPP) [Time] 13.6 s High 9.8-13.2 [facility] Comment on above: Performed By: #### H H, PLTCT, 96285-8, PINR, 24349-8, 3274-8, BMP #### [facility] ([id number]) [address], [address] [place] [address] INR Coag (PPP) [Relative time] 1.2 {INR} High 0.8-1.1 [facility] Comment on above: Performed By: #### P INR, 95589-8, 3274-8 #### [facility] ([id number]) [address], [address] [place] [address] PT Coag (PPP) [Time] 13.4 s High 9.8-13.2 [facility] Comment on above: Performed By: #### P INR, 26842-0, 3274-8 #### [facility] ([id number]) [address], [address] [place] [address] Troponin I.cardiac High sens itivity method [Mass/Vol]on 12-07-2023 TROPONIN I, HIGH SENSITIVITY 83 ng/L High <16 [facility] Comment on above: Result Comment: Elevations of hs-Troponin may be due to causes other than myocardial ischemia. Recommend serial hs-Troponin testing be performed. For the initial evaluation and management of chest pain patients, refer to the algorithms linked below. Emergency Patient: [email or web address] Inpatient: [email or web address] Performed By: #### 8 9579-7 #### [facility] ([id number]) [address], [address] [place] [address] aPTT Coag (PPP) [Time]on aPTT Coag (Bld) [Time] s Critically high 26-37 [facility] Comment on above: Performed By: #### H H, PLTCT, 66264-8, PINR, 32580-5, 3274-8, BMP #### [facility] ([id number]) [address] [facility] [place] [address] aPTT Coag (Bld) [Time] 73 s High 26-37 [facility] Comment on above: Performed By: #### P INR, 72126-5, 3274-8 #### [facility] ([id number]) [address], [address] [place] [address] CBC AND AUTO DIFFon 12-06-19 ABSOLUTE BASOPHIL 0.0 X10E9/L Normal 0.0-0.2 [facility] Comment on above: Performed By: #### C BCA, 43440-0, CMP, 05875-8, 29597-3 #### [facility] ([id number]) [address] [place] [address], [place] [address] ABSOLUTE NEUTROPHIL 3.2 X10E9/L Normal 1.5-6.6 [facility] Comment on above: Performed By: #### C BCA, 02525-7, CMP, 20719-5, 75339-6 #### [facility] ([id number]) [address] [place] [address] Basophils/100 WBC (Bld) 0.8 % Normal [facility] Comment on above: Performed By: #### C BCA, 86614-2, CMP, 27426-4, #### [facility] ([id number]) [address] [place] [address] Eosinophils (Bld) [#/Vol] 0.0 10*3/uL Normal 0.0-0.4 [facility] Comment on above: Performed By: #### C BCA, 07448-6, CMP, 82351-4, #### [facility] ([id number]) [address] [place] [address] Eosinophils/100 WBC (Bld) 0.3 % Normal [facility] Comment on above: Performed By: #### Ashkan BCA, 01711-8, CMP, 31756-9, 15839-4 #### [facility] ([id number]) [address] [place] [address] Erythrocyte distribution width (RBC) [Ratio] 16.0 % High 11.5-15.0 [facility] Comment on above: Performed By: #### C BCA, 45520-5, CMP, 05782-8, 75363-7 #### [facility] ([id number]) [address] [place] [address] Hematocrit (Bld) [Volume fraction] 38.0 % Normal 35-47 [facility] Comment on above: Performed By: #### C BCA, 73596-1, CMP, 18534-6, 31128-4 #### [facility] ([id number]) [address] [place] [address] Hemoglobin (Bld) [Mass/Vol] 12.6 g/dL Normal 11.7-15.5 [facility] Comment on above: Performed By: #### C MAHIN, 77320-2, CMP, 08056-3, 87786-5 #### [facility] ([id number]) [address] [place] [address] Lymphocytes (Bld) [#/Vol] 1.0 10*3/uL Normal 1.0-3.5 [facility] Comment on above: Performed By: #### C MAHIN, 92461-3, CMP, 87588-3, #### [facility] ([id number]) [address] [place] [address] Lymphocytes/100 WBC (Bld) 22.5 % Normal [facility] Comment on above: Performed By: #### C MAHIN, 16841-2, CMP, 12992-4, #### [facility] ([id number]) [address] [place] [address] MCH (RBC) [Entitic mass] 30.5 pg Normal 27-34 [facility] Comment on above: Performed By: #### C MAHIN, 79715-0, CMP, 66460-7, #### [facility] ([id number]) [address] [place] [address] MCHC (RBC) [Mass/Vol] 33.2 g/dL Normal 32-36 [facility] Comment on above: Performed By: #### C MAHIN, 83932-2, CMP, 11305-7, #### [facility] ([id number]) [address] [place] [address] MCV (RBC) [Entitic vol] 92 fL Normal 80-100 [facility] Comment on above: Performed By: #### C BCA, 11096-7, CMP, 65691-3, 56397-1 #### [facility] ([id number]) [address] [place] [address] Monocytes (Bld) [#/Vol] 0.3 10*3/uL Normal 0-0.9 [facility] Comment on above: Performed By: #### Ashkan STOCKTON, 26673-4, CMP, 85388-1, 72898-3 #### [facility] ([id number]) [address] [place] [address] Monocytes/100 WBC (Bld) 7.4 % Normal [facility] Comment on above: Performed By: #### Ashkan STOCKTON, 82250-4, CMP, 48737-9, #### [facility] ([id number]) [address] [place] [address] Neutrophils/100 WBC (Bld) 69.0 % Normal [facility] Comment on above: Performed By: #### Ashkan STOCKTON, 22490-5, CMP, 91634-9, #### [facility] ([id number]) [address] [place] [address] Platelet mean volume (Bld) [Entitic vol] 7.0 fL Normal 7-12 [facility] Comment on above: Performed By: #### Ashkan STOCKTON, 02066-6, CMP, 39142-0, #### [facility] ([id number]) [address] [place] [address] Platelets (Bld) [#/Vol] 371 10*3/uL Normal 150-450 [facility] Comment on above: Performed By: #### Ashkan STOCKTON, 83832-0, CMP, 69684-4, 87889-8 #### [facility] ([id number]) [address] [place] [address] RBC COUNT 4.13 X10E12/L Normal 3.80-5.20 [facility] Comment on above: Performed By: #### C BCA, 07803-9, CMP, 97293-4, 75061-4 #### [facility] ([id number]) [address] [place] [address] WBC (Bld) [#/Vol] 4.6 10*3/uL Normal 4.0-11.0 [facility] Comment on above: Performed By: #### C MAHIN, 60178-7, CMP, 64271-9, 75506-9 #### [facility] ([id number]) [address] [place] [address] ABSOLUTE BASOPHIL 0.0 X10E9/L Normal 0.0-0.2 [facility] Comment on above: Performed By: #### Ashkan BCA, CMP #### [facility] ([id number]) [address] [place] [address], [address] [place] [address] #### PINR, 19066-8, 84154-1 #### [facility] ([id number]) [address] [place] [address] ABSOLUTE NEUTROPHIL 1.9 X10E9/L Normal 1.5-6.6 [facility] Comment on above: Performed By: #### C BCA, CMP #### [facility] ([id number]) [address] [place] [address], [address] [place] [address] #### PINR, 18941-7, 70346-5 #### [facility] ([id number]) [address] [place] [address] Basophils/100 WBC (Bld) 0.6 % Normal [facility] Comment on above: Performed By: #### C BCA, CMP #### [facility] ([id number]) [address] [place] [address], [address] [place] [address] #### PINR, 03152-1, 73844-3 #### [facility] ([id number]) [address] [place] [address] Eosinophils (Bld) [#/Vol] 0.0 10*3/uL Normal 0.0-0.4 [facility] Comment on above: Performed By: #### C BCA, CMP #### [facility] ([id number]) [address] [place] [address] #### PINR, 31862-3, [id number] #### [facility] ([id number]) [address] [place] [address] 18005 Eosinophils/100 WBC (Bld) 0.4 % Normal [facility] Comment on above: Performed By: #### C BCA, CMP #### [facility] ([id number]) [address] [place] [address] #### PINR, [id number], [id number] #### [facility] ([id number]) [address] [place] [address] 36357 Erythrocyte distribution width (RBC) [Ratio] 16.0 % High 11.5-15.0 [facility] Comment on above: Performed By: #### C BCA, CMP #### [facility] ([id number]) [address] [place] [address] #### PINR, [id number], [id number] #### [facility] ([id number]) [address] [place] [address] 48355 Hematocrit (Bld) [Volume fraction] 39.8 % Normal 35-47 [facility] Comment on above: Performed By: #### C BCA, CMP #### [facility] ([id number]) [address] [place] [address] #### PINR, [id number], [id number] #### [facility] ([id number]) [address] [place] [address]1509 Hemoglobin (Bld) [Mass/Vol] 13.2 g/dL Normal 11.7-15.5 [facility] Comment on above: Performed By: #### C BCA, CMP #### [facility] ([id number]) [address] [place] [address], [address] [address] #### PINR, [id number], [id number] #### [facility] ([id number]) [address] [place] [address]208 Lymphocytes (Bld) [#/Vol] 0.8 10*3/uL Low 1.0-3.5 [facility] Comment on above: Performed By: #### C BCA, CMP #### [facility] ([id number]) [address] [place] [address] #### PINR, [id number], [id number] #### [facility] ([id number]) [address] [place] [address] [address]29 Lymphocytes/100 WBC (Bld) 26.0 % Normal [facility] Comment on above: Performed By: #### C BCA, CMP #### [facility] ([id number]) [address] [place] [address], [address] [address] #### PINR, [id number], 23231-5 #### [facility] ([id number]) [address] [place] [address] 06751 MCH (RBC) [Entitic mass] 31.0 pg Normal 27-34 [facility] Comment on above: Performed By: #### C BCA, CMP #### [facility] ([id number]) [address] [place] [address], [address] [place] [address] #### PINR, [id number], 46362-5 #### [facility] ([id number]) [address] [place] [address] 20690 MCHC (RBC) [Mass/Vol] 33.1 g/dL Normal 32-36 [facility] Comment on above: Performed By: #### C BCA, CMP #### [facility] ([id number]) [address] [place] [address], [address] [place] [address] #### PINR, 02185-4, 93389-6 #### [facility] ([id number]) [address] [place] [address] 64759 MCV (RBC) [Entitic vol] 94 fL Normal 80-100 [facility] Comment on above: Performed By: #### Ashkan BCA, CMP #### [facility] ([id number]) [address] [place] [address], [address] [address] #### PINR, [id number], 59894-7 #### [facility] ([id number]) [address] [place] [address] 19565 Monocytes (Bld) [#/Vol] 0.3 10*3/uL Normal 0-0.9 [facility] Comment on above: Performed By: #### C BCA, CMP #### [facility] ([id number]) [address] [place] [address], [address] [place] [address] #### PINR, [id number], 85238-3 #### [facility] ([id number]) [address] [place] [address] 43630 Monocytes/100 WBC (Bld) 10.5 % Normal [facility] Comment on above: Performed By: #### C BCA, CMP #### [facility] ([id number]) [address] [place] [address], [address] [place] [address] #### MARCELINA, 73002-3, 07980-1 #### [facility] ([id number]) [address] [place] [address] 67284 Neutrophils/100 WBC (Bld) 62.5 % Normal [facility] Comment on above: Performed By: #### C BCA, CMP #### [facility] ([id number]) [address], [address] [place] [address] #### MARCELINA, 00359-4, 22707-9 #### [facility] ([id number]) [address] [place] [address] 33255 Platelet mean volume (Bld) [Entitic vol] 7.1 fL Normal 7-12 [facility] Comment on above: Performed By: #### Ashkan STOCKTON, CMP #### [facility] ([id number]) [address], [address] [place] [address] #### MARCELINA, 96284-8, 29289-1 #### [facility] ([id number]) [address] [place] [address] 41157 Platelets (Bld) [#/Vol] 360 10*3/uL Normal 150-450 [facility] Comment on above: Performed By: #### Ashkan BCA, CMP #### [facility] ([id number]) [address], [address] [place] [address] #### MARCELINA, 05849-7, 82581-9 #### [facility] ([id number]) [address] [place] [address] 50932 RBC COUNT 4.25 X10E12/L Normal 3.80-5.20 [facility] Comment on above: Performed By: #### C BCA, CMP #### [facility] ([id number]) [address], [address] [place] [address] #### MARCELINA, 18247-2, 01635-6 #### [facility] ([id number]) [address] [place] [address] 08206 WBC (Bld) [#/Vol] 3.1 10*3/uL Low 4.0-11.0 [facility] Comment on above: Performed By: #### C BCA, CMP #### [facility] ([id number]) [address] [place] [address], [address] [place] [address] #### PINR, [id number], 13824-0 #### [facility] ([id number]) [address] [place] [address]392 COMPREHENSIVE METABOLIC PANE Caleb 12-06-2023 Albumin [Mass/Vol] 3.7 g/dL Normal 3.2-5.3 [facility] Comment on above: Performed By: #### C BCA, 69466-1, CMP, 14582-2, 96244-5 #### [facility] ([id number]) [address] [place] [address] 03937 ALP [Catalytic activity/Vol] 121 U/L Normal 39-130 [facility] Comment on above: Performed By: #### C BCA, 14744-3, CMP, 92055-2, 76379-9 #### [facility] ([id number]) [address] [place] [address] 89263 ALT [Catalytic activity/Vol] 24 U/L Normal 0-31 [facility] Comment on above: Performed By: #### C BCA, 98601-0, CMP, 86971-7, 44783-2 #### [facility] ([id number]) [address] [place] [address] 23958 Anion gap [Moles/Vol] 10 mmol/L Normal 5-15 [facility] Comment on above: Performed By: #### C BCA, 78705-5, CMP, 93350-8, 29751-1 #### [facility] ([id number]) [address] [place] [address] 00882 AST [Catalytic activity/Vol] 28 U/L Normal 0-41 [facility] Comment on above: Performed By: #### C BCA, 58148-0, CMP, 95685-1, 75290-4 #### [facility] ([id number]) [address] [place] [address] 61689 Bilirubin [Mass/Vol] 0.7 mg/dL Normal 0.3-1.2 [facility] Comment on above: Performed By: #### C BCA, 22959-6, CMP, 68505-5, 90821-1 #### [facility] ([id number]) [address] [place] [address] 99464 Calcium [Mass/Vol] 9.2 mg/dL Normal 8.5-10.5 [facility] Comment on above: Performed By: #### C BCA, 09999-8, CMP, 27504-9, 46531-5 #### [facility] ([id number]) [address] [place] [address] 01990 Chloride [Moles/Vol] 107 mmol/L Normal 98-109 [facility] Comment on above: Performed By: #### C BCA, 98070-9, CMP, 90726-9, 10863-8 #### [facility] ([id number]) [address] [place] [address] 45909 CO2 [Moles/Vol] 22 mmol/L Normal 22-32 [facility] Comment on above: Performed By: #### C BCA, 26876-1, CMP, 27911-7, 72410-3 #### [facility] ([id number]) [address] [place] [address] 93020 Creatinine [Mass/Vol] 0.69 mg/dL Normal 0.40-1.00 [facility] Comment on above: Result Comment: METH OD TRACEABLE TO IDMS STANDARD Performed By: #### C BCA, 70953-2, CMP, 32630-5, 76853-3 #### [facility] ([id number]) [address] [place] [address] 35026 eGFR (CKD-EPI) NON-RACE DEPENDENT >90 Normal >59 [facility] Comment on above: Result Comment: Reported eGFR is based on the CKD-EPI 2020 equation that does not use a race coefficient. Performed By: #### C BCA, 26613-8, CMP, 87534-1, 68958-7 #### [facility] ([id number]) [address] [place] [address] 84179 Glucose [Mass/Vol] 100 mg/dL High 65-99 [facility] Comment on above: Performed By: #### C BCA, 34182-5, CMP, 71471-9, 22870-0 #### [facility] ([id number]) [address] [place] [address] 20887 Potassium [Moles/Vol] 3.6 mmol/L Normal 3.5-5.0 [facility] Comment on above: Performed By: #### C BCA, 97379-0, CMP, 98240-4, 62617-8 #### [facility] ([id number]) [address] [place] [address] 20632 Protein [Mass/Vol] 7.5 g/dL Normal 6.0-8.0 [facility] Comment on above: Performed By: #### C BCA, 48130-2, CMP, 74301-3, 76056-7 #### [facility] ([id number]) [address] [place] [address] 14949 Sodium [Moles/Vol] 139 mmol/L Normal 134-146 [facility] Comment on above: Performed By: #### C BCA, 49276-0, CMP, 76881-4, #### [facility] ([id number]) [address] [place] [address] 45288 Urea nitrogen [Mass/Vol] 7 mg/dL Normal 5-23 [facility] Comment on above: Performed By: #### C BCA, 99644-9, CMP, 73880-1, 93041-6 #### [facility] ([id number]) [address] [place] [address] 87153 Albumin [Mass/Vol] 4.1 g/dL Normal 3.2-5.3 [facility] Comment on above: Performed By: #### C BCA, CMP #### [facility] ([id number]) [address] [facility], [address] [place] [address] #### PINR, 35127-4, 21898-4 #### [facility] ([id number]) [address] [place] [address] 22025 ALP [Catalytic activity/Vol] 126 U/L Normal 39-130 [facility] Comment on above: Performed By: #### C BCA, CMP #### [facility] ([id number]) [address] [facility], [address] [place] [address] #### PINR, 73971-0, 71595-0 #### [facility] ([id number]) [address] [place] [address] 86769 ALT [Catalytic activity/Vol] 19 U/L Normal 0-31 [facility] Comment on above: Performed By: #### C BCA, CMP #### [facility] ([id number]) [address] [facility], [address] [place] [address] #### PINR, 36310-9, 28266-5 #### [facility] ([id number]) [address] [place] [address] 19707 Anion gap [Moles/Vol] 11 mmol/L Normal 5-15 [facility] Comment on above: Performed By: #### C BCA, CMP #### [facility] ([id number]) [address] [place] [address], [facility] [address] [place] [address] #### PINR, 45058-5, 57251-5 #### [facility] ([id number]) [address] [place] [address] 32917 AST [Catalytic activity/Vol] 30 U/L Normal 0-41 [facility] Comment on above: Performed By: #### C BCA, CMP #### [facility] ([id number]) [address] [place] [address], [address] [place] [address] #### MARCELINA, 43094-6, 52077-6 #### [facility] ([id number]) [address] [place] [address] 61084 Bilirubin [Mass/Vol] 0.6 mg/dL Normal 0.3-1.2 [facility] Comment on above: Performed By: #### C BCA, CMP #### [facility] ([id number]) [address] [place] [address], [facility] [address] [place] [address] #### PINRiver, 07691-7, 89565-3 #### [facility] ([id number]) [address] [place] [address] 85276 Calcium [Mass/Vol] 9.1 mg/dL Normal 8.5-10.5 [facility] Comment on above: Performed By: #### C BCA, CMP #### [facility] ([id number]) [address] [place] [address], [address] [place] [address] #### PINR, 99413-8, 37657-9 #### [facility] ([id number]) [address] [place] [address] 62531 Chloride [Moles/Vol] 106 mmol/L Normal 98-109 [facility] Comment on above: Performed By: #### C BCA, CMP #### [facility] ([id number]) [address] [facility] [address] [place] [address] #### PINR, 92449-9, 48484-0 #### [facility] ([id number]) [address] [place] [address] 28524 CO2 [Moles/Vol] 25 mmol/L Normal 22-32 [facility] Comment on above: Performed By: #### C BCA, CMP #### [facility] ([id number]) [address] [address] #### MARCELINA, 23557-9, 61661-5 #### [facility] ([id number]) [address] [place] [address] 33787 Creatinine [Mass/Vol] 0.79 mg/dL Normal 0.40-1.00 [facility] Comment on above: Result Comment: METH OD TRACEABLE TO IDMS STANDARD Performed By: #### C BCA, CMP #### [facility] ([id number]) [address] [place] [address] #### PINRiver, 98951-7, 62998-9 #### [facility] ([id number]) [address] [place] [address] 63200 eGFR (CKD-EPI) NON-RACE DEPENDENT >90 Normal >59 [facility] Comment on above: Result Comment: Reported eGFR is based on the CKD-EPI 2020 equation that does not use a race coefficient. Performed By: #### C BCA, CMP #### [facility] ([id number]) [address] [address] #### PINR, 91338-4, 26250-4 #### [facility] ([id number]) [address] [place] [address] 56731 Glucose [Mass/Vol] 116 mg/dL High 65-99 [facility] Comment on above: Performed By: #### C BCA, CMP #### [facility] ([id number]) [address] [facility], [address] [place] [address] #### PINR, 29227-0, 45274-3 #### [facility] ([id number]) [address] [place] [address] 22298 Potassium [Moles/Vol] 3.7 mmol/L Normal 3.5-5.0 [facility] Comment on above: Performed By: #### C BCA, CMP #### [facility] ([id number]) [address] [facility], [address] [place] [address] #### MARCELINA, 74293-8, 51409-2 #### [facility] ([id number]) [address] [place] [address] 70529 Protein [Mass/Vol] 7.6 g/dL Normal 6.0-8.0 [facility] Comment on above: Performed By: #### C BCA, CMP #### [facility] ([id number]) [address] [place] [address], [address] [address] #### PINR, 02034-9, 41856-0 #### [facility] ([id number]) [address] [place] [address] 87723 Sodium [Moles/Vol] 142 mmol/L Normal 134-146 [facility] Comment on above: Performed By: #### C BCA, CMP #### [facility] ([id number]) [address] [facility] [address] [place] [address] #### PINR, 55097-7, 55404-5 #### [facility] ([id number]) [address] [place] [address] 68645 Urea nitrogen [Mass/Vol] 6 mg/dL Normal 5-23 [facility] Comment on above: Performed By: #### C BCA, CMP #### [facility] ([id number]) [address] [facility] [place] [address] #### PINR, 91033-0, 28747-7 #### [facility] ([id number]) [address] [facility] [place] [address] CT CTA CHESTon 12-06-2023 CT CTA CHEST [...] Carrizales MD on 12/06/2023 10:33 PM Normal [facility] Fibrin D-dimer DDU (PPP) [Ma ss/Vol]on 12-06-2023 D DIMER 2465 ng/mL DDU High <255 [facility] Comment on above: Result Comment: Results >=255ng/mL DDU: Results may be indicative of the presence of VTE. The use of the Wells score and further diagnostic tests should be considered. Elevated D-Dimer levels can also be associated with DIC, neoplasm, , trauma and liver disease. Elevated levels of rheumatoid factor may lead to an overestimation of the D-Dimer level. Performed By: #### C MAHIN, CMP #### [facility] ([id number]) [address], [address] [place] [address] #### PINR, 15754-8, 05394-2 #### [facility] ([id number]) [address] [place] [address] 59914 MAGNESIUMon 12-06-2023 Magnesium [Mass/Vol] 1.9 mg/dL Normal 1.8-2.6 [facility] Comment on above: Performed By: #### C MAHIN, 65125-9, CMP, 83033-7, 86196-3 #### [facility] ([id number]) [address] [place] [address] 70058 Natriuretic peptide B [Mass/ Vol]on 12-06-2023 Natriuretic peptide B (Bld) [Mass/Vol] 155 pg/mL High <100.0 [facility] Comment on above: Performed By: #### C MAHIN, 38256-4, CMP, 30730-4, 19244-4 #### [facility] ([id number]) [address] [place] [address] 07633 PROTIME AND INRon 12-06-2023 INR Coag (PPP) [Relative time] 1.1 {INR} Normal 0.8-1.1 [facility] Comment on above: Performed By: #### C MAHIN, CMP #### [facility] ([id number]) [address], [address] [place] [address] #### PINR, 94519-9, 14100-8 #### [facility] ([id number]) [address] [place] [address] 24448 PT Coag (PPP) [Time] 12.7 s Normal 9.8-13.2 [facility] Comment on above: Result Comment: NEW REFERENCE RANGE Performed By: #### C BCA, CMP #### [facility] ([id number]) [address] [facility] [place] [address] #### PINR, 81257-6, 82468-2 #### [facility] ([id number]) [address] [place] [address] Troponin I.cardiac High sens itivity method [Mass/Vol]on 12-06-2023 1 HOUR TROP I, HIGH SENSITIVITY 132 ng/L High <16 [facility] Comment on above: Result Comment: Elevations of hs-Troponin may be due to causes other than myocardial ischemia. Recommend serial hs-Troponin testing be performed. For the initial evaluation and management of chest pain patients, refer to the algorithms linked below. Emergency Patient: [email or web address]& uh=acaea Inpatient: [email or web address] uh=[email or web address] Performed By: #### C BCA, CMP #### [facility] ([id number]) [address] [facility] [place] [address] #### PINR, 88582-1, 89419-6 #### [facility] ([id number]) [address] [place] [address] 11473 TROPONIN I, HIGH SENSITIVITY 148 ng/L High <16 [facility] Comment on above: Result Comment: Elevations of hs-Troponin may be due to causes other than myocardial ischemia. Recommend serial hs-Troponin testing be performed. For the initial evaluation and management of chest pain patients, refer to the algorithms linked below. Emergency Patient: [email or web address] uh=acaea Inpatient: [email or web address]& uh=acaea Performed By: #### C BCA, 53516-7, CMP, 98122-7, 80077-7 #### [facility] ([id number]) [address] [place] [address] aPTT Coag (PPP) [Time]on aPTT Coag (Bld) [Time] 36 s Normal 26-37 [facility] Comment on above: Result Comment: NEW REFERENCE RANGE Performed By: #### C BCA, CMP #### [facility] ([id number]) [address] [facility], [address] [place] [address] #### PINR, 81627-0, 15182-5 #### [facility] ([id number]) [address] [place] [address] 37916 36on 11-26-[address] MALLORIE Tomas HE STATED THAT HE WILL GIVE PATIENT STEP DOWN TRAMADOL PATIENT REFUSE AND STATED THAT WILL NOT HELP WITH THE PAIN ADVISED PATIENT TO CALL PAIN MANAGEMENT. [facility] 36 PATIENT STATED THAT SHE NEVER RECEIVE A REFILL ON MEDICATIONS AND YOU TOLD HER THAT YOU WOULD WHEN SHE [facility] 36 Patient is more than 1 month following her surgery and will need to be referred to pain management for the same. We did discuss this when she came in for her postoperative follow-up visit. Thank you REFERRAL PLACED TO PAIN MANAGEMENT PATIENT NOTIFIED. [facility] 36 Patient called antonio douglass for a refill on oxycodone-acetaphimine 10-325 mg. Please advise. Thank you [facility] Telephoneon 11-26-2023 Telephone [phone] Apolonia Palma 1975 F Date Provider Department Center 11/26/2023 [facility] Family History Problem Relation Age of Onset Cancer Mother Family Status - Relation Status Age at Mother Reason for Visit and Comments: Med Refill [[id number]] Normal [facility] Office Visiton 11-19-2023 Follow-up visit [id number] Apolonia Palma guy Bey 1975 F Date Provider Department Center 11/19/2023 [facility] ORTH[facility] MP[facility]TH[facility] Family History Problem Relation Age of Onset Cancer Mother Family Status - Relation Status Age at Mother Level of Service:58601 CO POSTOP FOLLOW UP VISIT RELATED TO ORIGINAL PX (GC) Reason for Visit and Comments: Post-op [483] - TKA Normal [facility] Capillary blood glucose ernst urement by glucometer (mass/volume)Ordered By: Jonny Bentley on 11-16-2023 Glucose [Mass/Vol] 92 mg/dL Normal [facility] Comment on above: Random Glucose Refer ence Range is dependent on time and content of last meal. Glucose of more than 200 mg/dL in a nonstressed, ambulatory subject supports the diagnosis of Diabetes Mellitus. Result Comment: [facility] Glucose Reference Range is dependent on time and content of last meal. Glucose of more than 200 mg/dL in a nonstressed, ambulatory subject supports the diagnosis of Diabetes Mellitus. PERFORMED BY: [facility] [address] [place] [address] PATHOLOGIST [employer] GUILLERMINA TOBAR M.D. Performed By: #### G LULS #### Point of Care testing , Glucose Poct Glucometerson 0 11-15-2023 Glucose [Mass/Vol] 105 mg/dL Normal [facility] Comment on above: Result Comment: [facility] Glucose Reference Range is dependent on time and content of last meal. Glucose of more than 200 mg/dL in a nonstressed, ambulatory subject supports the diagnosis of Diabetes Mellitus. PERFORMED BY: [facility] [address] [place] [address] PATHOLOGIST [employer]IL EXPERT GUILLERMINA TOBAR M.D. Performed By: #### G LULS #### Point of Care testing , Glucose Poct Glucometerson 0 11-14-2023 Commemt1 Glu2: Cleaned Meter Normal [facility] Comment on above: Result Comment: PERF ORMED BY: [facility] [address] [place] [address] PATHOLOGIST OIL EXPERT GUILLERMINA TOBAR M.D. Performed By: #### G LULS #### Point of Care testing , Glucose [Mass/Vol] 93 mg/dL Normal [facility] Comment on above: Result Comment: [facility] Glucose Reference Range is dependent on time and content of last meal. Glucose of more than 200 mg/dL in a nonstressed, ambulatory subject supports the diagnosis of Diabetes Mellitus. Performed By: #### G LULS #### Point of Care testing , No Panel InformationOrdered By: Jonny Bentley on 11-14-2023 Bedside Glucose Comment Glu2: cleaned meter [facility] Automated basophil %Ordered By: Mone Brennan on 11-13-2023 Basophils/100 WBC (Bld) 1.3 % Normal . [facility] Comment on above: Performed By: #### G LULS #### Point of Care testing , Automated basophil countOrde red By: Mone Brennan on 11-13-2023 Basophils (Bld) [#/Vol] 0.1 10*3/uL Normal 0.0-0.2 [facility] Comment on above: Result Comment: PERF ORMED BY: [place] [address] [place] [address] PATHOLOGIST OIL EXPERT GUILLERMINA TOBAR M.D. Performed By: #### G LULS #### Point of Care testing , Automated blood monocyte cou ntOrdered By: Mone Brennan on 11-13-2023 Monocytes (Bld) [#/Vol] 0.4 10*3/uL Normal 0.0-0.8 [facility] Comment on above: Performed By: #### G LULS #### Point of Care testing , Automated eosinophil %Ordere d By: Mone Brennan on 11-13-2023 Eosinophils/100 WBC (Bld) 1.2 % Normal . [facility] Comment on above: Performed By: #### G LULS #### Point of Care testing , Automated eosinophil countOr dered By: Mone Brennan on 11-13-2023 Eosinophils (Bld) [#/Vol] 0.1 10*3/uL Normal 0.0-0.45 [facility] Comment on above: Performed By: #### G LULS #### Point of Care testing , Automated monocyte %Ordered By: Mone Brennan on 11-13-2023 Monocytes/100 WBC (Bld) 6.2 % Normal . [facility] Comment on above: Performed By: #### G LULS #### Point of Care testing , Automated neutrophil %Ordere d By: Mone Brennan on 11-13-2023 Neutrophils/100 WBC (Bld) 59.2 % Normal . [facility] Comment on above: Performed By: #### G LULS #### Point of Care testing , Basic Metabolic Panelon Creatinine Clr Calc Pharmacy 162.78 Normal [facility] Comment on above: Result Comment: PERF ORMED BY: [facility] [address] [place] [place] [address] PATHOLOGIST OIL EXPERT GUILLERMINA TOBAR M.D. Performed By: #### G LULS #### Point of Care testing , GFR/1.73 sq M.predicted MDRD (S/P/Bld) [Vol rate/Area] mL/min/{1.73_m2} Normal [facility] Comment on above: Performed By: #### G LULS #### Point of Care testing , Bilirubin Test strip Ql (U)O rdered By: Mone Brennan on 11-13-2023 Bilirubin Ql (U) Negative Negative [place] [facility] Calcium [Mass/volume] in Ser um or PlasmaOrdered By: Mone Brennan on 11-13-2023 Calcium [Mass/Vol] 8.3 mg/dL Low 8.6-10.3 [facility] Comment on above: Performed By: #### G LULS #### Point of Care testing , Carbon dioxide, total [Moles /volume] in Serum or PlasmaOrdered By: Mone Brennan on 11-13-2023 CO2 [Moles/Vol] 27.9 mmol/L Normal 21.0-31.0 [facility] Comment on above: Performed By: #### G LULS #### Point of Care testing , Chloride [Moles/volume] in S binta or PlasmaOrdered By: Mone Brennan on 11-13-2023 Chloride [Moles/Vol] 105 mmol/L Normal 98-107 [facility] Comment on above: Performed By: #### G LULS #### Point of Care testing , Color of Urine by AutoOrdere d By: Mone Brennan on 11-13-2023 Color (U) Yellow Normal Yellow [facility] Comment on above: Order Comment: Name Collection Type:: Voided Performed By: #### U A #### [facility] [address] Complete Blood Count Auto Di ffon 11-13-2023 Mean Corpuscular HGB Conc 32.9 g/dL Normal 32.0-35.0 [facility] Comment on above: Performed By: #### G LULS #### Point of Care testing , NRBC% 0.4 /100{WBC} Normal 0-0.5 [facility] Comment on above: Performed By: #### G LULS #### Point of Care testing , Creatinine [Mass/volume] in Serum or PlasmaOrdered By: Mone Brennan on 11-13-2023 Creatinine [Mass/Vol] 0.65 mg/dL Normal 0.60-1.20 [facility] Comment on above: Performed By: #### G LULS #### Point of Care testing , Erythrocyte distribution wid th [Ratio] by Automated countOrdered By: Mone Brennan on 11-13-2023 Erythrocyte distribution width (RBC) [Ratio] 14.9 % Normal 11.9-15.3 [facility] Comment on above: Performed By: #### G LULS #### Point of Care testing , Erythrocytes [#/volume] in B lood by Automated countOrdered By: Mone Brennan on 11-13-2023 RBC (Bld) [#/Vol] 3.25 10*6/uL Low 3.60-5.00 [facility] Comment on above: Performed By: #### G LULS #### Point of Care testing , Glucose Poct Glucometerson 0 11-13-2023 Glucose [Mass/Vol] 103 mg/dL Normal [facility] Comment on above: Result Comment: [place] om Glucose Reference Range is dependent on time and content of last meal. Glucose of more than 200 mg/dL in a nonstressed, ambulatory subject supports the diagnosis of Diabetes Mellitus. PERFORMED BY: [facility] [place] [address] PATHOLOGIST OIL EXPERT GUILLERMINA TOBAR M.D. Performed By: #### G LULS #### Point of Care testing , Glucose [Mass/volume] in Ser um or PlasmaOrdered By: Mone Brennan on 11-13-2023 Glucose [Mass/Vol] 94 mg/dL Normal 70-100 [facility] Comment on above: ADA recommended refe rence rangeRandom Glucose Reference Range is dependent on time and content of last meal. Glucose of more than 200 mg/dL in a nonstressed, ambulatory subject supports the diagnosis of Diabetes Mellitus. Result Comment: [place] om Glucose Reference Range is dependent on [...] Test strip (U) [Mass/Vol] Normal mg/dL Normal [facility] Hematocrit [Volume Fraction] of Blood by Automated countOrdered By: Mone Brennan on 11-13-2023 Hematocrit (Bld) [Volume fraction] 30.2 % Low 34.0-46.4 [facility] Comment on above: Performed By: #### G LULS #### Point of Care testing , Hemoglobin Test strip Ql (U) Ordered By: Mone Brennan on 11-13-2023 Hemoglobin Ql (U) Negative Negative [facility] Hemoglobin [Mass/volume] in BloodOrdered By: Mone Brennan on 11-13-2023 Hemoglobin (Bld) [Mass/Vol] 9.9 g/dL Low 11.8-15.4 [facility] Comment on above: Performed By: #### G LULS #### Point of Care testing , Ketones [Presence] in Urine by Test stripOrdered By: Mone Brennan on 11-13-2023 Ketones Ql (U) Negative Normal Negative [facility] Comment on above: Order Comment: Name Collection Type:: Voided Performed By: #### U A #### [facility] [address] Leukocyte esterase [Presence ] in Urine by Test stripOrdered By: Mone Brennan on 11-13-2023 Leukocyte esterase Test strip Ql (U) Negative Normal Negative [facility] Comment on above: Order Comment: Name Collection Type:: Voided Performed By: #### U A #### [facility] [address] [place] [address] Leukocytes [#/volume] correc olga lidia for nucleated erythrocytes in Blood by Automated counOrdered By: Mone Brennan on 11-13-2023 WBC corrected for nucl RBC Auto (Bld) [#/Vol] 6.3 10*3/uL 3.8-11.6 [facility] Leukocytes [#/volume] in Blo od by Automated countOrdered By: Mone Brennan on 11-13-2023 WBC (Bld) [#/Vol] 6.3 10*3/uL Normal 3.8-11.6 [facility] Comment on above: Performed By: #### G LULS #### Point of Care testing , Lymphocytes [#/volume] in Bl ood by Automated countOrdered By: Mone Brennan on 11-13-2023 Lymphocytes (Bld) [#/Vol] 2.0 10*3/uL Normal 1.00-4.8 [facility] Comment on above: Performed By: #### G LULS #### Point of Care testing , Lymphocytes/100 leukocytes i n Blood by Automated countOrdered By: Mone Brennan on 11-13-2023 Lymphocytes/100 WBC (Bld) 32.1 % Normal . [facility] Comment on above: Performed By: #### G LULS #### Point of Care testing , MCH [Entitic mass] by Automa olga lidia countOrdered By: Mone Brennan on 11-13-2023 MCH (RBC) [Entitic mass] 30.6 pg Normal 24.7-34.3 [facility] Comment on above: Performed By: #### G LULS #### Point of Care testing , MCHC Auto (RBC) [Mass/Vol]Or dered By: Mone Brennan on 11-13-2023 MCHC (RBC) [Mass/Vol] 32.9 g/dL 32.0-35.0 [facility] MCV [Entitic volume] by Auto mated countOrdered By: oMne Brennan on 11-13-2023 MCV (RBC) [Entitic vol] 92.8 fL Normal 80-100 [facility] Comment on above: Performed By: #### G LULS #### Point of Care testing , Neutrophils [#/volume] in Bl ood by Automated countOrdered By: Mone Brennan on 11-13-2023 Neutrophils (Bld) [#/Vol] 3.7 10*3/uL Normal 1.8-7.7 [facility] Comment on above: Performed By: #### G LULS #### Point of Care testing , Nitrite Test strip Ql (U)Ord ered By: Mone Brennan on 11-13-2023 Nitrite Ql (U) Negative Negative [facility] No Panel InformationOrdered By: Mone Brennan on 11-13-2023 Estimated GFR (CKD-EPI) > 60.0 mL/Min [facility] Creatinine Clearance (Chem 162.78 [facility] Nucleated erythrocytes [Pres ence] in Blood by Automated countOrdered By: Mone Brennan on 11-13-2023 Nucleated RBC Auto Ql (Bld) 0.4 /100{WBC} 0-0.5 [facility] Platelet mean volume [Entiti c volume] in Blood by Automated countOrdered By: Mone Brennan on 11-13-2023 Platelet mean volume (Bld) [Entitic vol] 6.5 fL Normal 6.3-10.7 [facility] Comment on above: Performed By: #### G LULS #### Point of Care testing , Platelets [#/volume] in Bloo d by Automated countOrdered By: Mone Brennan on 11-13-2023 Platelets (Bld) [#/Vol] 422 10*3/uL Normal 150-450 [facility] Comment on above: Performed By: #### G LULS #### Point of Care testing , Potassium [Moles/volume] in Serum or PlasmaOrdered By: Mone Brennan on 11-13-2023 Potassium [Moles/Vol] 3.4 mmol/L Low 3.5-5.1 [facility] Comment on above: Performed By: #### G LULS #### Point of Care testing , Protein Test strip (U) [Mass /Vol]Ordered By: Mone Bernnan on 11-13-2023 Protein (U) [Mass/Vol] Negative Negative [facility] Serum or plasma anion gap de terminationOrdered By: Mone Brennan on 11-13-2023 Anion gap [Moles/Vol] 12.5 mmol/L Normal 6.0-15.0 [facility] Comment on above: Performed By: #### G LULS #### Point of Care testing , Sodium [Moles/volume] in Ser um or PlasmaOrdered By: Mone Brennan on 11-13-2023 Sodium [Moles/Vol] 142 mmol/L Normal 136-145 [facility] Comment on above: Performed By: #### G LULS #### Point of Care testing , Specific gravity Test strip (U) [Rel density]Ordered By: Mone Brennan on 11-13-2023 Specific gravity (U) [Rel density] 1.023 1.001-1.030 [facility] Urea nitrogen [Mass/volume] in Serum or PlasmaOrdered By: Mone Brennan on 11-13-2023 Urea nitrogen [Mass/Vol] 7 mg/dL Normal 7-25 [facility] Comment on above: Performed By: #### G LULS #### Point of Care testing , Urinalysison 11-13-2023 Bilirubin,Urine Negative Normal Negative [facility] Comment on above: Order Comment: Name Collection Type:: Voided Performed By: #### U A #### [address] Glucose Ql (U) Normal Normal Normal [facility] Comment on above: Order Comment: Name Collection Type:: Voided Performed By: #### U A #### [address] Nitrite,Urine Negative Normal Negative [facility] Comment on above: Order Comment: Name Collection Type:: Voided Performed By: #### U A #### [address] Occult Blood,Urine Negative Normal Negative [facility] Comment on above: Order Comment: Name Collection Type:: Voided Result Comment: PERF ORMED BY: [place] [address] PATHOLOGIST OIL EXPERT GUILLERMINA TOBAR M.D. Performed By: #### U A #### [address] Protein,Urine Negative Normal Negative [facility] Comment on above: Order Comment: Name Collection Type:: Voided Performed By: #### U A #### [address] Specificy [place],Urine 1.023 Normal 1.001-1.030 [facility] Comment on above: Order Comment: Name Collection Type:: Voided Performed By: #### U A #### [address] Urobilinogen,Urine 2 mg/dL High Normal [facility] Comment on above: Order Comment: Name Collection Type:: Voided Performed By: #### U A #### [address] Urine appearanceOrdered By: Mone Brennan on 11-13-2023 Appearance (U) Clear Normal Clear [facility] Comment on above: Order Comment: Name Collection Type:: Voided Performed By: #### U A #### [facility] [address] [place] [address] Urobilinogen Test strip (U) [Mass/Vol]Ordered By: Mone Brennan on 11-13-2023 Urobilinogen (U) [Mass/Vol] 2 mg/dL High Normal [facility] pH of Urine by Test stripOrd ered By: Mone Brennan on 11-13-2023 pH (U) 6.0 [pH] Normal 5.0-9.0 [facility] Comment on above: Order Comment: Name Collection Type:: Voided Performed By: #### U A #### [facility] [address] [place] [address] Glucose Poct Glucometerson 0 11-12-2023 Commemt1 Glu2: Cleaned Meter Normal The [facility] Comment on above: Result Comment: PERF ORMED BY: [place] [address] PATHOLOGIST OIL EXPERT GUILLERMINA TOBAR M.D. Performed By: #### G LULS #### Point of Care testing , Glucose [Mass/Vol] 107 mg/dL Normal [facility] Comment on above: Result Comment: [place] Glucose Reference Range is dependent on time and content of last meal. Glucose of more than 200 mg/dL in a nonstressed, ambulatory subject supports the diagnosis of Diabetes Mellitus. Performed By: #### G LULS #### Point of Care testing , Glucose Poct Glucometerson 0 11-11-2023 Commemt1 Glu2: Cleaned Meter Normal [facility] Comment on above: Result Comment: PERF ORMED BY: [place] [address] PATHOLOGIST OIL EXPERT GUILLERMINA TOBAR M.D. Performed By: #### G LULS #### Point of Care testing , Glucose [Mass/Vol] 98 mg/dL Normal [facility] Comment on above: Result Comment: [place] om Glucose Reference Range is dependent on time and content of last meal. Glucose of more than 200 mg/dL in a nonstressed, ambulatory subject supports the diagnosis of Diabetes Mellitus. Performed By: #### G LULS #### Point of Care testing , Glucose Poct Glucometerson 0 11-10-2023 Glucose [Mass/Vol] 118 mg/dL Normal [facility] Comment on above: Result Comment: [place] om Glucose Reference Range is dependent on time and content of last meal. Glucose of more than 200 mg/dL in a nonstressed, ambulatory subject supports the diagnosis of Diabetes Mellitus. PERFORMED BY: [place] [address] PATHOLOGIST OIL EXPERT GUILLERMINA TOBAR M.D. Performed By: #### G LULS #### Point of Care testing , Glucose Poct Glucometerson 0 11-09-2023 Glucose [Mass/Vol] 134 mg/dL Normal [facility] Comment on above: Result Comment: [place] om Glucose Reference Range is dependent on time and content of last meal. Glucose of more than 200 mg/dL in a nonstressed, ambulatory subject supports the diagnosis of Diabetes Mellitus. PERFORMED BY: [place] [address] PATHOLOGIST OIL EXPERT GUILLERMINA TOBAR M.D. Performed By: #### G LULS #### Point of Care testing , 36on 11-08-2023 36 I spoke with Nohemi the nurse caring for Ms Palma. She stated she is doing well and experiencing mild pain. She denies any redness, drainage or major swelling. She confirmed her post op appointment on November 18 at 115. They had no questions or concerns. Normal [facility] A1C with Estimated Average [facility] 11-08-2023 Glucose [Mass/Vol] 134 mg/dL Normal [facility] Comment on above: Result Comment: PERF ORMED BY: [place] [address] PATHOLOGIST OIL EXPERT GUILLERMINA TOBAR M.D. Performed By: #### A 1C [facility] #### [address] Glucose Poct Glucometerson 0 11-08-2023 Commemt1 Glu2: Cleaned Meter Normal [facility] Comment on above: Result Comment: PERF ORMED BY: [place] [address] PATHOLOGIST OIL EXPERT GUILLERMINA TOBAR M.D. Performed By: #### G LULS #### Point of Care testing , Glucose [Mass/Vol] 132 mg/dL Normal [facility] Comment on above: Result Comment: [place] Glucose Reference Range is dependent on time [...] from glycated hemoglobin (Bld) [Mass/Vol] 134 mg/dL [facility] Hemoglobin A1c percentageOrd ered By: Mone Brennan on 11-08-2023 HbA1c (Bld) [Mass fraction] 6.3 % High 4.3-5.6 [facility] Comment on above: Increased risk for d iabetes: 5.7 - 6.4diabetes: >6.4glycemic control for adults with diabetes: <7.0 Result Comment: Incr eased risk for diabetes: 5.7 - 6.4 diabetes: >6.4 glycemic control for adults with diabetes: <7.0 Performed By: #### A 1C WT eA #### [facility] [address] Alanine aminotransferase [En zymatic activity/volume] in Serum or PlasmaOrdered By: Jonny Bentley on 11-07-2023 ALT [Catalytic activity/Vol] 13 U/L Normal [facility] Comment on above: Performed By: #### G LULS #### Point of Care testing , Albumin [Mass/volume] in Ser um or Plasma by Bromocresol green (BCG) dye binding methoOrdered By: Jonny Bentley on 11-07-2023 Albumin BCG dye [Mass/Vol] 3.1 g/dL Low 3.5-5.7 [facility] Alkaline phosphatase [Enzyma tic activity/volume] in Serum or PlasmaOrdered By: Jonny Bentley on 11-07-2023 ALP [Catalytic activity/Vol] 108 U/L High 34-104 [facility] Comment on above: Performed By: #### G LULS #### Point of Care testing , Aspartate aminotransferase [ Enzymatic activity/volume] in Serum or PlasmaOrdered By: Jonny Bentley on 11-07-2023 AST [Catalytic activity/Vol] 19 U/L Normal 13-39 [facility] Comment on above: Performed By: #### G LULS #### Point of Care testing , Bilirubin.total [Mass/volume ] in Serum or PlasmaOrdered By: Jonny Bentley on 11-07-2023 Bilirubin [Mass/Vol] 0.5 mg/dL Normal 0.3-1.0 [facility] Comment on above: Performed By: #### G LULS #### Point of Care testing , Complete Blood Count Auto Di ffon 11-07-2023 Basophils (Bld) [#/Vol] 0.0 10*3/uL Normal 0.0-0.2 [facility] Comment on above: Result Comment: PERF ORMED BY: [facility] [place] [address] PATHOLOGIST OIL EXPERT GUILLERMINA TOBAR M.D. Performed By: #### G LULS #### Point of Care testing , Basophils/100 WBC (Bld) 0.5 % Normal . [facility] Comment on above: Performed By: #### G LULS #### Point of Care testing , Eosinophils (Bld) [#/Vol] 0.1 10*3/uL Normal 0.0-0.45 [facility] Comment on above: Performed By: #### G LULS #### Point of Care testing , Eosinophils/100 WBC (Bld) 1.5 % Normal . [facility] Comment on above: Performed By: #### G LULS #### Point of Care testing , Erythrocyte distribution width (RBC) [Ratio] 14.4 % Normal 11.9-15.3 [facility] Comment on above: Performed By: #### G LULS #### Point of Care testing , Hematocrit (Bld) [Volume fraction] 30.1 % Low 34.0-46.4 [facility] Comment on above: Performed By: #### G LULS #### Point of Care testing , Hemoglobin (Bld) [Mass/Vol] 10.1 g/dL Low 11.8-15.4 [facility] Comment on above: Performed By: #### G LULS #### Point of Care testing , Lymphocytes (Bld) [#/Vol] 1.5 10*3/uL Normal 1.00-4.8 [facility] Comment on above: Performed By: #### G LULS #### Point of Care testing , Lymphocytes/100 WBC (Bld) 30.0 % Normal . [facility] Comment on above: Performed By: #### G LULS #### Point of Care testing , MCH (RBC) [Entitic mass] 30.7 pg Normal 24.7-34.3 [facility] Comment on above: Performed By: #### G LULS #### Point of Care testing , MCV (RBC) [Entitic vol] 91.3 fL Normal 80-100 [facility] Comment on above: Performed By: #### G LULS #### Point of Care testing , Mean Corpuscular HGB Conc 33.7 g/dL Normal 32.0-35.0 [facility] Comment on above: Performed By: #### G LULS #### Point of Care testing , Monocytes (Bld) [#/Vol] 0.6 10*3/uL Normal 0.0-0.8 [facility] Comment on above: Performed By: #### G LULS #### Point of Care testing , Monocytes/100 WBC (Bld) 12.2 % Normal . [facility] Comment on above: Performed By: #### G LULS #### Point of Care testing , Neutrophils (Bld) [#/Vol] 2.8 10*3/uL Normal 1.8-7.7 [facility] Comment on above: Performed By: #### G LULS #### Point of Care testing , Neutrophils/100 WBC (Bld) 55.8 % Normal . [facility] Comment on above: Performed By: #### G LULS #### Point of Care testing , NRBC% 0.3 /100{WBC} Normal 0-0.5 [facility] Comment on above: Performed By: #### G LULS #### Point of Care testing , Platelet mean volume (Bld) [Entitic vol] 6.5 fL Normal 6.3-10.7 [facility] Comment on above: Performed By: #### G LULS #### Point of Care testing , Platelets (Bld) [#/Vol] 375 10*3/uL Normal 150-450 [facility] Comment on above: Performed By: #### G LULS #### Point of Care testing , RBC (Bld) [#/Vol] 3.30 10*6/uL Low 3.60-5.[address] [facility] Comment on above: Performed By: #### G LULS #### Point of Care testing , WBC (Bld) [#/Vol] 5.0 10*3/uL Normal 3.8-11.6 [facility] Comment on above: Performed By: #### G LULS #### Point of Care testing , Comprehensive Metabolic Pane caleb 11-07-2023 Albumin [Mass/Vol] 3.1 g/dL Low 3.5-5.7 [facility] Comment on above: Performed By: #### G LULS #### Point of Care testing , Anion gap [Moles/Vol] 9.5 mmol/L Normal 6.0-15.0 [facility] Comment on above: Performed By: #### G LULS #### Point of Care testing , Calcium [Mass/Vol] 8.4 mg/dL Low 8.6-10.3 [facility] Comment on above: Performed By: #### G LULS #### Point of Care testing , Chloride [Moles/Vol] 107 mmol/L Normal 98-107 [facility] Comment on above: Performed By: #### G LULS #### Point of Care testing , CO2 [Moles/Vol] 27.0 mmol/L Normal 21.0-31.0 [facility] Comment on above: Performed By: #### G LULS #### Point of Care testing , Creatinine [Mass/Vol] 0.60 mg/dL Normal 0.60-1.20 [facility] Comment on above: Performed By: #### G LULS #### Point of Care testing , Creatinine Clr Calc Pharmacy 177.69 Normal [facility] Comment on above: Performed By: #### G LULS #### Point of Care testing , GFR/1.73 sq M.predicted MDRD (S/P/Bld) [Vol rate/Area] mL/min/{1.73_m2} Normal [facility] Comment on above: Performed By: #### G LULS #### Point of Care testing , Glucose [Mass/Vol] 105 mg/dL High 70-100 [facility] Comment on above: Result Comment: [place] Glucose Reference Range is dependent on time and content of last meal. Glucose of more than 200 mg/dL in a nonstressed, ambulatory subject supports the diagnosis of Diabetes Mellitus. ADA recommended reference range Performed By: #### G LULS #### Point of Care testing , Potassium [Moles/Vol] 3.5 mmol/L Normal 3.5-5.1 [facility] Comment on above: Performed By: #### G LULS #### Point of Care testing , Sodium [Moles/Vol] 140 mmol/L Normal 136-145 [facility] Comment on above: Performed By: #### G LULS #### Point of Care testing , Urea nitrogen [Mass/Vol] 6 mg/dL Low 7-25 [facility] Comment on above: Performed By: #### G LULS #### Point of Care testing , Glucose Poct Glucometerson 0 11-07-2023 Glucose [Mass/Vol] 172 mg/dL Normal [facility] Comment on above: Result Comment: [facility] Glucose Reference Range is dependent on time and content of last meal. Glucose of more than 200 mg/dL in a nonstressed, ambulatory subject supports the diagnosis of Diabetes Mellitus. PERFORMED BY: [address] [address] PATHOLOGIST OIL EXPERT GUILLERMINA TOBAR M.D. Performed By: #### G LULS #### Point of Care testing , Prealbumin [Mass/volume] in Serum or PlasmaOrdered By: Jonny Bentley on 11-07-2023 Prealbumin [Mass/Vol] 11.3 mg/dL Low 17.0-34.0 [facility] Comment on above: Result Comment: PERF ORMED BY: [address] [address] PATHOLOGIST OIL EXPERT GUILLERMINA TOBAR M.D. Performed By: #### G LULS #### Point of Care testing , Protein [Mass/volume] in Ser um or PlasmaOrdered By: Jonny Bentley on 11-07-2023 Protein [Mass/Vol] 6.3 g/dL Low 6.4-8.9 [facility] Comment on above: Performed By: #### G LULS #### Point of Care testing , Serum globulin measurement b y calculation (mass/volume)Ordered By: Jonny Bentley on 11-07-2023 Globulin (S) [Mass/Vol] 3.2 g/dL [facility] Comment on above: Performed By: #### G LULS #### Point of Care testing , Serum or plasma albumin/glob ulin mass ratioOrdered By: Jonny Bentley on 11-07-2023 Albumin/Globulin [Mass ratio] 1.0 {ratio} [facility] Comment on above: Performed By: #### G LULS #### Point of Care testing , XR knee LT 2Von 11-07-2023 XR knee LT 2V [facility] [address] [place] [address] XRay Report Signed Patient: Navdeep Palma MR#: [id number] : 1975 Acct:[id number] Age/Sex: 48 / F ADM Date: 11/06/23 Loc: Room: 6T7618-1 Type: ADM IN Attending Dr: Jonny Bentley [...] Allie Greenfield M.D.11/07/2023 3:23 PM Dictation Location: [place] [address] Transcribed By: [facility] 11/07/23 1523 Dictated By: Allie Greenfield MD 11/07/23 1521 Signed By: 11/07/23 1523 Normal [facility] 30on 11-06-2023 30 Daily Case Managemen t Update Multidisciplinary rounds have been completed. Barriers to Discharge: Sent message via [employer] to [facility] and requested a call back concerning discharge today. 8:14 Received a call form [facility] and they have a bed available for today just needed updates sent (SW notified ). Requesting a 2:00 transport. 10:05 [facility] is requesting a more recent OT note-OT notified via [employer] chat. 11:57 Faxed OT note per facility [...] eval, s/p total knee 10/31/23 1025 Normal [facility] 30 The patient is Moderately Stable - [...] barriers include waiting return call from [facility]. Normal [facility] CONSULTon 11-06-2023 CONSULT 8:40-SW notifed by RuLAURA jones [facility] is able to accept patient today at 2:00pm pending sent documentation. faxed documentation to [facility]. to arrange transportation for 1:00pm for patient to arrive at 2:00pm 10:00- received phone call from [facility]. They need an updated OT note, the AVS, and Auth Letter faxed. OT is notified of needed re-eval. informed by [facility] they can accept patient at 2:00pm, but at the latest she would need to leave [facility] would be 6:00pm. 10:30-Patient is on will call for transportation. 12:00- confirmed a 3:30pm transport time for patient. Packet completed, to notify facility and patient. 12:20-Discharge order placed. AVS faxed to [facility]. Transport set up with [facility] at 3:30pm. Transport form and packet completed and left beside the chart. Facility,patient, and floor RN aware of transport time. Phone number for report left with packet. 15:30- notified by [facility] that transport has been pushed to 4:30pm as additional crews needed to be contacted. No further OTM needs at this time. Normal [facility] NURSNOTEon 11-06-2023 NURSNOTE Report called to [facility], all questions answered. Callback number left in case of other question when patient arrives. [facility] CONSULTon 11-05-2023 CONSULT 15:50-SW called [facility] IPR to check on bed availability as OTM was notified of precert approval. They were unavailable- and contact information was left. OTM will continue to follow. [facility] 30on 11-04-2023 30 The patient is Moderately [...] maintained or improved Outcome: Progressing [facility] 30on 11-02-2023 30 Daily Case Managemen t Update Multidisciplinary rounds have been completed. Barriers to Discharge: Called [facility] in regards to IPR acceptance-left message for a return phone due to no response in [facility]. 9:38 Called [facility] again and spoke with Janet concerning acceptance. She stated it is in review and stated that she would get an answer at the 11:00 meeting. Await acceptance. 11:53 Received a call from [facility] requesting additional clinical. Uploaded and faxed requested clinical. Await determination of acceptance. 14;32 Received a phone call from Janet at [facility] and they are able to accepted. Sent an apic message to Ary requesting she state precert. Diet: Dietary Orders (From admission, onward) Start Ordered 10/31/23 1640 Regular Diet Diet effective now Question: Room Service? Answer: Yes 10/31/23 2617 Physician Expected Discharge Date: 11/02/2023 Discharge Delays: [...] eval, s/p total knee 10/31/23 1025 Normal [facility] 30on 11-01-2023 30 Daily Case Managemen t Update Multidisciplinary rounds have been completed. Barriers to Discharge: Pending clinical course and improvement in clinical condition. POD 1 ARTHROPLASTY, KNEE, TOTAL (L). 12:49 PT recommending IPR. Await choices-Sw aware. 17:30 [facility]. Await acceptance then precert. [...] eval, s/p total knee 10/31/23 1025 Normal [facility] BASIC METABOLIC PANELon 08- Anion gap [Moles/Vol] 14 mmol/L Normal 7-20 [facility] Comment on above: Performed By: #### L [id number] #### [facility] [address] [place] [address] Calcium [Mass/Vol] 7.9 mg/dL Low 8.6-10.3 [facility] Comment on above: Performed By: #### L [id number] #### [facility] ([facility]) [address] [place] [address] Chloride [Moles/Vol] 101 mmol/L Normal 98-107 [facility] Comment on above: Performed By: #### L [id number] #### [facility] [address] [place] [address] CO2 [Moles/Vol] 25 mmol/L Normal 21-31 [facility] Comment on above: Performed By: #### L [id number] #### [facility] [address] [place] [address] Creatinine [Mass/Vol] 0.66 mg/dL Normal 0.60-1.20 [facility] Comment on above: Performed By: #### L [id number] #### [facility] ([facility]) [address] [place] [address] GLOMERULAR FILTRATION RATE ML/MIN/1.73 SQ M.PREDICTED 106.8 mL/min/1.73m*2 Normal >60.0 [facility] Comment on above: Result Comment: The [facility]???s estimated glomerular filtration rate (eGFR) will no [...] individuals. Performed By: #### L [id number] #### [facility] ([facility]) [address] [place] [address] Glucose [Mass/Vol] 183 mg/dL High 70-100 [facility] Comment on above: Performed By: #### L [id number] #### [facility] ([facility]) [address] [place] [address] Potassium [Moles/Vol] 3.6 mmol/L Normal 3.5-5.1 [facility] Comment on above: Performed By: #### L [id number] #### [facility] ([facility]) [address] [place] [address] Sodium [Moles/Vol] 136 mmol/L Normal 136-145 [facility] Comment on above: Performed By: #### L [id number] #### [facility] ([facility]) [address] [place] [address] Urea nitrogen [Mass/Vol] 9 mg/dL Normal 7-25 [facility] Comment on above: Performed By: #### L [id number] #### [facility] ([facility]) [address] [place] [address] UREA NITROGEN/CREATININE (MASS RATIO) IN SER/PLAS 13.6 Normal [facility] Comment on above: Performed By: #### L [id number] #### [facility] ([facility]) [address] [place] [address] CBCon 11-01-2023 Erythrocyte distribution width (RBC) [Ratio] 14.8 % Normal 11.5-15.0 [facility] Comment on above: Performed By: #### L [id number] ####[facility] ([facility])[address] [place] [address] ERYTHROCYTE MEAN CORPUSCULAR HEMOGLOBIN CONCENTRATION (G/DL) BY AUTOMATED 32.2 g/dL Normal 32.0-35.0 [facility] Comment on above: Performed By: #### L [id number] ####[facility] ([facility])[address] [place] [address] Hematocrit (Bld) [Volume fraction] 33.2 % Low 36.0-48.0 [facility] Comment on above: Performed By: #### L [id number] ####[facility])[address] [place], [place] [address] Hemoglobin (Bld) [Mass/Vol] 10.7 g/dL Low 12.0-15.0 [facility] Comment on above: Performed By: #### L [id number] ####[facility] [place], [place] [address] MCH (RBC) [Entitic mass] 30.1 pg Normal 27.0-33.0 [facility] Comment on above: Performed By: #### L [id number] ####[facility] ([facility])[address] [place] [address] MCV (RBC) [Entitic vol] 93.5 fL Normal 82.0-98.0 [facility] Comment on above: Performed By: #### L [id number] ####[facility] ([facility])[address] [place] [address] PLATELETS (10*3/UL) IN BLOOD AUTOMATED COUNT 305 10*3/uL Normal 150-400 [facility] Comment on above: Performed By: #### L [id number] ####[facility] [place] [address] RBC (Bld) [#/Vol] 3.55 10*6/uL Low 3.80-5.00 [facility] Comment on above: Performed By: #### L [id number] ####[facility] [place] [address] WBC (Bld) [#/Vol] 7.89 10*3/uL Normal 4.00-10.60 [facility] Comment on above: Performed By: #### L [id number] ####[facility] [place] [address] 36on 10-31-2023 36 Note faxed [facility] 36 Gerard needs the note to state [...] sending ammeded note For DME equipment Normal [facility] Anesthesiaon 10-31-2023 Anesthesia [id number] Apolonia Palma 1975 F Date Provider Department Center 10/31/2023 4029-TYLER FLOR [facility] OR [facility] Family History Problem Relation Age of Onset Cancer Mother Family Status - Relation Status Age at Mother [facility] CONSULTon 10-31-2023 CONSULT -- Attestation signed by [...] Palma Age - 48 y.o. - 1975 [facility] # - [id number] Date of Admission - 10/31/2023 6:41 AM [...] Left knee pain, Lupus (systemic lupus erythematosus) (CMS/HCC), Migraine, Obesity, Osteoarthritis, and Sleep apnea. PSH: [...] 100 mg, 100 mg, oral, BID, Mandi Alstonw, DO HYDROmorphone (Dilaudid) injection 0.2 mg, 0.2 mg, intravenous, q3h PRN, Mandi JaneTyler, DO HYDROmorphone (Dilaudid) injection 0.3 mg, 0.3 [...] MD Oxygen Therapy, , inhalation, Continuous, Mandi Reevesmew, DO prochlorperazine (Compazine) injection 5 mg, 5 mg, intravenous, Once PRN, Zane Barfield MD Insert perip (more content not included)... [facility] HPon 10-31-2023 HP H&P reviewed. The patient was examined and there are no changes to the H&P. [facility] HP H&P reviewed. The patient was examined and there are no changes to the H&P. [facility] NURSNOTEon 10-31-2023 ISELANOTE RN called floor report Normal [facility] NURSNOTE RN called PT and anthony d them they can come work w/pt. [facility] NURSNOTE Pt complaining of a lot of pain RN spoke to anesthesia doing a second nerve block not an option adding more pain meds. 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 Triathlon X3 total bearing insert posterior stabilized size 5, 13 mm thickness Triathlon X3 asymmetric patella size A 35,10 mm thickness Primary Triathlon, [place] tibial base plate size 5 Triathlon Left femoral implant size 5, PS left side Triathlon Cemented stem 15x 50 mm [employer] bone cement, total of 2 batches. Surgeons Primary: Lyssa Park MD Resident - Assisting: Mandi Scott DO; MD Boni Rosas orthopedic assistant Bill Sorter: Dr Zane Barfield MD Procedure Summary Anesthesia: General ASA: I Estimated Blood Loss: 50 mL Total tourniquet time is 68 minutes. Total IV Fluids: Please see anesthesia chart mL Drains: * None in log * Implants Type Name Action Serial No. Bone Cement CEMENT,BONE,R,1X40US - [id number] Implanted Total Joint PIN,FIXATION,KONG,L3 - [id number] Implanted Total Joint TIBIAL BASE,UNIVERSAL,#5 - [id number] Implanted Total Joint PATELLAR,TRIATHLON,X3, 13B00FN - [id number] Implanted Total Joint FEMORAL,TRIATHLON,LFT, 5 - [id number] Implanted Total Joint STEM,CEMENTED,TS,15X50 MM - [id number] Implanted Total Joint TIBIAL BEARING INSERT Implanted Staff: Conference Services Coordinator: Elvie Dunham RN Scrub Person: Marbella Gross CST Lens Silverer: Boni Yousif CSA Indications: Domingo Palma is [...] -left primary cemented total knee arthroplasty using [place] triathlon implants without without lateral release and [...] Quadricepsplasty, blood transfusion due to blood loss, assisted rehabilitation, residual pain and stiffness, lifestyle modifications, [...] surrounding structures, bleeding, (more content not included)... Normal [facility] POCT GLUCOSE METER UNSOLICIT ED RESULTSon 10-31-2023 Glucose [Mass/Vol] 140 mg/dL High 70-105 [facility] Comment on above: Order Comment: Waive d Testing in the ED is performed under the ED CLIA certificate #[id number]. Result Comment: onel ng12 Performed By: #### L [id number] #### [facility] ([facility]) [address] [place] [address] 36on 10-29-2023 36 Patient requesting call back from re, wanting to ask her a question regarding home health [facility] 36on 10-25-2023 36 NOTE FAXED [facility] 36on 10-24-2023 36 Zane called to request [...] the rollator will improve patient mobility deficits. Fax#[phone] [facility] 36 NOTE FAXED. [facility] 36on 10-22-2023 36 Patient needs signed note from last visit, demographics, faxed to [phone] [facility] APTTon 10-22-2023 ACTIVATED PARTIAL THROMBOPLASTIN TIME IN PPP BY COAGULATION ASSAY 27.5 Seconds Normal 25.0-35.0 [facility] Comment on above: Result Comment: Clin ical significance of the APTT is questionable in the presence of heparin. Performed By: #### L [id number] #### [facility] [address] [place] [address] CBC WITH AUTO DIFFERENTIALon 10-22-2023 Basophils (Bld) [#/Vol] 0.01 10*3/uL Normal 0.00-0.20 [facility] Comment on above: Performed By: #### L [id number] #### [facility] [address] [place] [address] Basophils/100 WBC (Bld) 0.3 % Normal 0.0-1.0 [facility] Comment on above: Performed By: #### L [id number] #### [facility] [address] [place] [address] Eosinophils (Bld) [#/Vol] 0.03 10*3/uL Normal 0.00-0.50 [facility] Comment on above: Performed By: #### L [id number] #### [facility] ([facility]) [address] [place] [address] Eosinophils/100 WBC (Bld) 1.0 % Normal 0.0-6.0 [facility] Comment on above: Performed By: #### L [id number] #### [facility] ([facility]) [address] [place] [address] Erythrocyte distribution width (RBC) [Ratio] 14.6 % Normal 11.5-15.0 [facility] Comment on above: Performed By: #### L [id number] #### [facility] ([facility]) [address] [place] [address] ERYTHROCYTE MEAN CORPUSCULAR HEMOGLOBIN CONCENTRATION (G/DL) BY AUTOMATED 32.7 g/dL Normal 32.0-35.0 [facility] Comment on above: Performed By: #### L [id number] #### [facility] ([facility]) [address] [place] [address] Hematocrit (Bld) [Volume fraction] 38.2 % Normal 36.0-48.0 [facility] Comment on above: Performed By: #### L [id number] #### [facility] ([facility]) [address] [place] [address] Hemoglobin (Bld) [Mass/Vol] 12.5 g/dL Normal 12.0-15.0 [facility] Comment on above: Performed By: #### L [id number] #### [facility] ([facility]) [address] [place] [address] Immature granulocytes (Bld) [#/Vol] 0.00 10*3/uL Normal 0.00-0.20 [facility] Comment on above: Performed By: #### L [id number] #### [facility] ([facility]) [address] [place] [address] Immature granulocytes/100 WBC (Bld) 0.0 % Normal 0.0-1.0 [facility] Comment on above: Performed By: #### L [id number] #### [facility] ([facility]) [address] [address] Lymphocytes (Bld) [#/Vol] 1.26 10*3/uL Normal 1.20-4.00 [facility] Comment on above: Performed By: #### L [id number] #### [facility] [address] [place] [address] Lymphocytes/100 WBC (Bld) 40.3 % Normal 20.0-45.0 [facility] Comment on above: Performed By: #### L [id number] #### [facility] ([facility]) [address] [place] [address] MCH (RBC) [Entitic mass] 30.1 pg Normal 27.0-33.0 [facility] Comment on above: Performed By: #### L [id number] #### [facility] ([facility]) [address] [place] [address] MCV (RBC) [Entitic vol] 92.0 fL Normal 82.0-98.0 [facility] Comment on above: Performed By: #### L [id number] #### [facility] ([facility]) [address] [place] [address] Monocytes (Bld) [#/Vol] 0.31 10*3/uL Normal 0.10-1.00 [facility] Comment on above: Performed By: #### L [id number] #### [facility] ([facility]) [address] [place] [address] Monocytes/100 WBC (Bld) 9.9 % Normal 5.0-12.0 [facility] Comment on above: Performed By: #### L [id number] #### [facility] ([facility]) [address] [place] [address] Neutrophils (Bld) [#/Vol] 1.52 10*3/uL Low 1.60-7.60 [facility] Comment on above: Performed By: #### L [id number] #### [facility] ([facility]) [address] [place] [address] Neutrophils/100 WBC (Bld) 48.5 % Normal 40.0-72.0 [facility] Comment on above: Performed By: #### L [id number] #### [facility] ([facility]) [address] [place] [address] NRBC (PER 100 WBCS) BY AUTOMATED COUNT 0.0 % Normal 0 [facility] Comment on above: Performed By: #### L [id number] #### [facility] ([facility]) [address] [place] [address] PLATELETS (10*3/UL) IN BLOOD AUTOMATED COUNT 369 10*3/uL Normal 150-400 [facility] Comment on above: Performed By: #### L [id number] #### [facility] ([facility]) [address] [place] [address] RBC (Bld) [#/Vol] 4.15 10*6/uL Normal 3.80-5.00 [facility] Comment on above: Performed By: #### L [id number] #### [facility] ([facility]) [address] [place] [address] WBC (Bld) [#/Vol] 3.13 10*3/uL Low 4.00-10.60 [facility] Comment on above: Performed By: #### L [id number] #### [facility] ([facility]) [address] [place] [address] COMPREHENSIVE METABOLIC PANE Caleb 10-22-2023 Albumin [Mass/Vol] 3.7 g/dL Normal 3.5-5.7 [facility] Comment on above: Performed By: #### L [id number] #### [facility] ([facility]) [address] [place] [address] ALP [Catalytic activity/Vol] 137 U/L High 34-104 [facility] Comment on above: Performed By: #### L [id number] #### [facility] ([facility]) [address] [place] [address] ALT [Catalytic activity/Vol] 12 U/L Normal 7-52 [facility] Comment on above: Performed By: #### L [id number] #### [facility] ([facility]) [address] [place] [address] Anion gap [Moles/Vol] 12 mmol/L Normal 7-20 [facility] Comment on above: Performed By: #### L [id number] #### [facility] ([facility]) [address] [place] [address] AST [Catalytic activity/Vol] 19 U/L Normal 13-39 [facility] Comment on above: Performed By: #### L [id number] #### [facility] ([facility]) [address] [place] [address] Bilirubin [Mass/Vol] 0.4 mg/dL Normal 0.3-1.0 [facility] Comment on above: Performed By: #### L [id number] #### [facility] ([facility]) [address] [place] [address] Calcium [Mass/Vol] 8.2 mg/dL Low 8.6-10.3 [facility] Comment on above: Performed By: #### L [id number] #### [facility] ([facility]) [address] [place] [address] Chloride [Moles/Vol] 105 mmol/L Normal 98-107 [facility] Comment on above: Performed By: #### L [id number] #### [facility] ([facility]) [address] [place] [address] CO2 [Moles/Vol] 26 mmol/L Normal 21-31 [facility] Comment on above: Performed By: #### L [id number] #### [facility] [address] [place] [address] Creatinine [Mass/Vol] 0.65 mg/dL Normal 0.60-1.20 [facility] Comment on above: Performed By: #### L [id number] #### [facility] [address] [place] [address] GLOMERULAR FILTRATION RATE ML/MIN/1.73 SQ M.PREDICTED 107.2 mL/min/1.73m*2 Normal >60.0 [facility] Comment on above: Result Comment: [facility]???s estimated glomerular filtration rate (eGFR) will no [...] individuals. Performed By: #### L [id number] #### [facility] ([facility]) [address] [place] [address] Glucose [Mass/Vol] 112 mg/dL High 70-100 [facility] Comment on above: Performed By: #### L [id number] #### [facility] [address] [place] [address] Potassium [Moles/Vol] 3.5 mmol/L Normal 3.5-5.1 [facility] Comment on above: Performed By: #### L [id number] #### [facility] [address] [place] [address] Protein [Mass/Vol] 7.2 g/dL Normal 6.0-8.3 [facility] Comment on above: Performed By: #### L [id number] #### [facility] ([facility]) [address] [place] [address] Sodium [Moles/Vol] 139 mmol/L Normal 136-145 [facility] Comment on above: Performed By: #### L [id number] #### [facility] ([facility]) [address] [place] [address] Urea nitrogen [Mass/Vol] 7 mg/dL Normal 7-25 [facility] Comment on above: Performed By: #### L [id number] #### [facility] ([facility]) [address] [place] [address] UREA NITROGEN/CREATININE (MASS RATIO) IN SER/PLAS 10.8 Normal [facility] Comment on above: Performed By: #### L [id number] #### [facility] ([facility]) [address] [place] [address] Consulton 10-22-2023 Consult [id number] Apolonia Palma 1975 F Date Provider Department Center 10/22/2023 LYSSA MATSON MP ORTHO [facility] Family History Problem Relation Age of Onset Cancer Mother Family Status - Relation Status Age at Mother Level of Service:80523 CO OFFICE/OUTPATIENT ESTABLISHED MOD MDM 30 MIN (57,GC) Reason for Visit and Comments: Pre-op Visit [558] Pain [136] Normal [facility] HPon 10-22-2023 HP Patient ID: Domingo Palma [...] currently weightbearing as tolerated. Current treatments are ipel-yxz-iwyivtd ibuprofen and Tylenol, ice, rest, elevation, bracing, [...] the knee joint with posterolateral subluxation. Where: [facility] Date: 07/23/2023 x-ray left knee(s) : Complete [...] the patient (more content not included)... Normal [facility] Orthopedic Surgery Subjective Chief complaint: Chief [...] from me. Dr. Lyssa Park MD [employer]ra[employer] Supervisor orthopedic surgery Adult Reconstruction and Trauma [facility]. Normal [facility] Labon 10-22-2023 Lab [id number] Apolonia Palma 1975 F Date Provider Department Center 10/22/2023 2244-[facility] MP LAB RESOURCE MP DRAW Medical Pavi Family History Problem Relation Age of Onset Cancer Mother Family Status - Relation Status Age at Mother Normal [facility] MRSA/MSSA DNA NASALon 2023 MRSA DNA Negative Normal Negative [facility] Comment on above: Order Comment: Testi ng [...] preclude nasal colonization. Performed By: #### L [id number] ####[facility] (BE[facility]ER)[address] [place] [address] MSSA DNA Negative Normal Negative [facility] Comment on above: Order Comment: Testi ng [...] preclude nasal colonization. Performed By: #### L [id number] ####[facility] (BE[facility])[address] [place] [address] PROTIME-INRon 10-22-2023 INR IN PPP BY COAGULATION ASSAY 1.02 Normal 0.90-1.10 [facility] Comment on above: Result Comment: [facility] FOR WARFARIN THERAPY CONDITION [...] 1995;[id number]. Performed By: #### L [id number] #### [facility] ([facility]) [address] [place] [address] PROTHROMBIN TIME (PT) IN PPP BY COAGULATION ASSAY 13.4 Seconds Normal 12.3-14.8 [facility] Comment on above: Performed By: #### L [id number] #### [facility] ([facility]) [address] [place] [address] TYPE AND SCREENon 10-22-2023 AB SCREEN Negative Normal [facility] Comment on above: Performed By: #### L [id number] #### [facility] BLOOD BANK , ABO group Nom (Bld) O Normal [facility] Comment on above: Performed By: #### L [id number] #### [facility] BLOOD BANK , RH TYPE IN BLOOD Positive Normal [facility] Comment on above: Performed By: #### L [id number] #### [facility] BLOOD BANK , Telephoneon 10-22-2023 Telephone [id number] Apolonia Palma 1975 F Date Provider Department [place] 10/22/2023 SHAHRAM NELSON MP ORTHO MPORTHO Family History Problem Relation Age of Onset Cancer Mother Family Status - Relation Status Age at Mother Normal [facility] URINALYSIS MICROSCOPIC WITH REFLEX CULTUREon 10-22-2023 CASTS IN URINE Normal [facility] Comment on above: Performed By: #### L [id number] #### [facility] ([facility]) [address] [place] [address] CRYSTALS IN URINE Normal [facility] Comment on above: Performed By: #### L [id number] #### [facility] ([facility]) [address] [place] [address] MUCUS (#/HPF) IN URINE SEDIMENT Many Abnormal None Seen, Occasional, Few [facility] Comment on above: Performed By: #### L [id number] #### [facility] ([facility]) [address] [place] [address] OTHER MICROSCOPIC ELEMENTS Normal [facility] Comment on above: Performed By: #### L [id number] #### [facility] ([facility]) [address] [place] [address] RBC (#/HPF) IN URINE SEDIMENT 0-2 Abnormal None Seen [facility] Comment on above: Performed By: #### L [id number] #### [facility] ([facility]) [address] [place] [address] SQUAMOUS EPITHELIAL CELLS (#/HPF) IN URINE SEDIMENT Many Abnormal None Seen, Occasional [facility] Comment on above: Performed By: #### L [id number] #### [facility] ([facility]) [address] [place] [address] WBC (LEUKOCYTE) (#/HPF) IN URINE SEDIMENT 0-2 Abnormal None Seen [facility] Comment on above: Performed By: #### L [id number] #### [facility] ([facility]) [address] [place] [address] URINALYSIS WITH REFLEX CULTU REon 10-22-2023 BILIRUBIN, TOTAL PRESENCE IN URINE Negative Normal Negative [facility] Comment on above: Performed By: #### L [id number] ####[facility] ([facility])[address] [place] [address] Clarity (U) Slightly Cloudy Abnormal Clear [facility] Comment on above: Performed By: #### L [id number] ####[facility] ([facility])[address] [place] [address] Color (U) Lynda Abnormal Yellow [facility] Comment on above: Performed By: #### L [id number] ####[facility] ([facility])[address] [place] [address] Glucose (U) [Mass/Vol] Negative Normal Negative [facility] Comment on above: Performed By: #### L [id number] ####[facility] ([facility])[address] [place] [address] HEMOGLOBIN PRESENCE IN URINE Negative Normal Negative [facility] Comment on above: Performed By: #### L [id number] ####[facility] ([facility])[address] [place] [address] Ketones Ql (U) Trace Abnormal Negative [facility] Comment on above: Performed By: #### L [id number] ####[facility] ([facility])[address] [place] [address] LEUKOCYTE ESTERASE PRESENCE IN URINE BY TEST STRIP Trace Abnormal Negative [facility] Comment on above: Performed By: #### L [id number] ####[facility] ([facility])[address] [place] [address] NITRITE PRESENCE IN URINE Negative Normal Negative [facility] Comment on above: Performed By: #### L [id number] ####[facility] ([facility])[address] [place] [address] pH (U) 6.0 [pH] Normal 5.0-8.0 [facility] Comment on above: Performed By: #### L [id number] ####[facility] ([facility])[address] [place] [address] Protein (U) [Mass/Vol] 30 mg/dL Abnormal Negative [facility] Comment on above: Performed By: #### L [id number] ####[facility] ([facility])[address] [place] [address] Specific gravity (U) [Rel density] 1.021 High 1.015-1.020 [facility] Comment on above: Performed By: #### L [id number] ####[facility] ([facility])[address] [place] [address] UROBILINOGEN (EU/DL) IN URINE 2.0 EU/dL Abnormal Negative [facility] Comment on above: Performed By: #### L [id number] ####[facility] ([facility])[address] [place] [address] URINE CULTURE, ROUTINEon Bacteria identified Cx Nom (U) <10,000 CFU/ML No Significant Growth Normal [facility] Comment on above: Performed By: #### L [id number] #### [facility] ([facility]) [address] [place] [address] Telephoneon 10-15-2023 Telephone [id number] Apolonia Palma er L 1975 F Date Provider Department Center 10/15/2023 RE BRIGHT MP ORTHO [facility] Family History Family history unknown: Yes Normal [facility] 36on 10-11-2023 [address] [facility] Abstracton 10-11-2023 Abstract [id number] Apolonia Palma L 1975 F Date Provider Department [place] 10/11/2023 LYSSA MATSON MP ORTHO MPORTHO Family History Family history unknown: Yes Normal [facility] 36on 10-09-2023 [address] [facility] Prep for Procedureon 024 Prep for Procedure [id number] Apolonia Palma er L 1975 F Date Provider Department Center 10/09/2023 ADRIANNA LEE MP ORTHO MPORTHO Family History Family history unknown: Yes [facility] 36on 10-08-2023 36 Patient states her p cp sent the clearance she would like to be notified with updates regarding scheduling of surgery [facility] 36on 10-02-2023 36 Patient wants to kno w if her clearance came through yet? It would be from dr yee. I dont see anything in her chart yet. Patient was advised. [facility] 36 Spoke with patient just waiting on pcp clearance. Called pcp office they stated that they will fax something over. [facility] 36on 09-28-2023 36 Patient states surge ry clearance is complete she wants a call back with next steps for surgery [facility] Telephoneon 09-28-2023 Telephone [phone] Apolonia Palma er L 1975 F Date Provider Department Center 09/28/2023 836-BARRIE KHALIL MP ORTHO REJIRTNOHEMI Family History Family history unknown: Yes [facility] POCT EKGon 09-27-2023 [facility] ECG 12 leadon 08-21-2023 TRACEMASTERVUE [facility] POCT urinalysis dipstick onl yon 08-21-2023 External Poct Urine Bilirubin Negative [facility] External Poct Urine Blood Negative [facility] External Poct Urine Glucose Negative [facility] External Poct Urine Hemoglobin Negative [facility] External Poct Urine Ketones Negative [facility] External Poct Urine Leukocyte Esterase Negative [facility] External Poct Urine Nitrite Negative [facility] External Poct Urine Ph 0.00 [facility] External Poct Urine Protein Negative [facility] External Poct Urine Specific [place] 0.00 [facility] External Poct Urine Urobilinogen 0.00 [facility] Bacteria identified Cx Nom ( U)on 08-17-2023 Service comment (Unsp spec) [Interp] URINE RECEIVED WITHOUT PRESERVATIVE [facility] Service comment (Unsp spec) [Interp] 10-50,000 ORGANISMS/mL NORMAL UROGENITAL SOWMYA [facility] CBC auto differentialon Eosinophils (Bld) [#/Vol] 0.0 10*3/uL [facility] Eosinophils/100 WBC (Bld) 1.0 % [facility] Erythrocyte distribution width (RBC) [Ratio] 14.8 % 11.5 - 15.0 % [facility] Hematocrit (Bld) [Volume fraction] 37.2 % 35 - 47 % [facility] Hemoglobin (Bld) [Mass/Vol] 12.5 g/dL 11.7 - 15.5 g/dL [facility] Interpretation and review of laboratory results Abnormal [facility] Lymphocytes (Bld) [#/Vol] 1.3 10*3/uL [facility] Lymphocytes/100 WBC (Bld) 42.0 % [facility] MCH (RBC) [Entitic mass] 31.5 pg 27 - 34 pg [facility] MCHC (RBC) [Mass/Vol] 33.6 g/dL 32 - 3 6 g/dL [facility] MCV (RBC) [Entitic vol] 94 fL 80 - 100 fL [facility] Monocytes (Bld) [#/Vol] 0.2 10*3/uL [facility] Monocytes/100 WBC (Bld) 7.0 % [facility] Neutrophils (Bld) [#/Vol] 1.6 10*3/uL [facility] Ovalocytes LM Ql (Bld) 1+ Abnormal NONE^NONE [facility] Platelet mean volume (Bld) [Entitic vol] 7.2 fL 7 - [address] [facility] Platelets (Bld) [#/Vol] 363 10*3/uL [facility] RBC (Bld) [#/Vol] 3.96 10*6/uL [facility] Segmented neutrophils/100 WBC (Bld) 50.0 % [facility] WBC corrected for nucl RBC Auto (Bld) [#/Vol] 3.1 Low [facility] Comprehensive metabolic pane caleb 08-17-2023 Albumin [Mass/Vol] 4.0 g/dL 3.2 - 5.3 g/dL [facility] ALP [Catalytic activity/Vol] 130 U/L 39 - 130 U/L [facility] ALT No additional P-5'-P [Catalytic activity/Vol] 16 U/L 0 - 31 U/L [facility] Anion gap [Moles/Vol] 7 mmol/L 5 - 15 mmol/L [facility] AST [Catalytic activity/Vol] 20 U/L 0 - 41 U/L [facility] Bilirubin [Mass/Vol] 0.5 mg/dL 0.3 - 1 .2 mg/dL [facility] Calcium [Mass/Vol] 8.8 mg/dL 8.5 - 10. 5 mg/dL [facility] Chloride [Moles/Vol] 104 mmol/L 98 - 10 9 mmol/L [facility] CO2 [Moles/Vol] 29 mmol/L 22 - 32 mmol/L [facility] Creatinine [Mass/Vol] 0.68 mg/dL 0.40 - 1.00 mg/dL [facility] Comment on above: METHOD TRACEABLE TO [facility] STANDARD eGFR (CKD-EPI)non-race dependent - PINF [facility] Comment on above: Reported eGFR is based on the CKD-EPI 2020 equation that does not use a race coefficient. Glucose [Mass/Vol] 119 mg/dL High 65 - 99 mg/dL [facility] Interpretation and review of laboratory results Abnormal [facility] Potassium [Moles/Vol] 3.7 mmol/L 3.5 - 5.0 mmol/L [facility] Protein [Mass/Vol] 7.5 g/dL 6.0 - 8.0 g/dL [facility] Sodium [Moles/Vol] 140 mmol/L 134 - 146 mmol/L [facility] Urea nitrogen [Mass/Vol] 7 mg/dL 5 - 23 mg/dL [facility] Vaginitis Panel PCRon 2023 Bacterial vaginosis DNA panel JAYLEEN+probe (Vag fld) Not detected Not Detected^No t Detected [facility] Comment on above: Qualitative results are reported based on detection and quantitation of targeted organism markers which include: Lactobacillus spp. (L. crispatus and L. jensenii), Gardnerella vaginalis, Atopobium vaginae, Bacterial Vaginosis Associated Bacteria-2 (BVAB-2) and Megasphaera-1 C. glabrata DNA JAYLEEN+probe Ql (Vag fld) Detected Abnormal Not Detected^No t Detected [facility] Comment on above: Hannah glabrata det ected Literature studies show between 8-20% Fluconazole resistance for Hannah glabrata C. krusei DNA JAYLEEN+probe Ql (Vag fld) Not detected Not Detected^No t Detected [facility] Comment on above: No Hannah krusei de tected Hannah sp 6 panel JAYLEEN+probe (Vag fld) Not detected Not Detected^No t Detected [facility] Comment on above: Hannah species not detected include: C. albicans, C. tropicalis, C. parapsilosis or C. dubliniensis Interpretation and review of laboratory results Abnormal [facility] T. vaginalis DNA JAYLEEN+probe Ql (Vag fld) Not detected Not Detected^No t Detected [facility] Comment on above: No Trichomonas vagin lyly detected NOTE BD MAX Vaginal Panel has not been evaluated for patients under 18 years old. Results for these patients should be reviewed and assessed in accordance with clinical presentation to determine patient diagnosis. [facility] POCT Hemoglobin A1con 2023 ADA Target < 8 Yes [facility] HbA1c (Bld) [Mass fraction] 6.0 g/dL 4 - 7 g/dL [facility] Interpretation and review of laboratory results Normal [facility] Follow-Upon 07-23-2023 Follow-Up [id number] Apolonia Palma 1975 F Date Provider Department Center 07/23/2023 LYSSA MATSON MP ORTHO MPORTHO Family History Family history unknown: Yes Level of Service:59679 CO OFFICE/OUTPATIENT ESTABLISHED HIGH MDM 40 MIN (GC,57) Reason for Visit and Comments: Follow-up [700819] Pain [136] Follow-up [987282] Pain [136] Normal [facility] Urinalysis (clean catch)on 0 07-12-2023 Bilirubin Ql (U) Negative Negative^Ne gative [facility] Calcium oxalate crystals LM Ql (Urine sed) PRESENT Abnormal NONE^NONE [facility] Color (U) YELLOW YELLOW^YELL OW [facility] Epithelial cells Auto (Urine sed) [#/Area] [facility] Glucose (U) [Mass/Vol] Negative Negat justice^Ne gative mg/dL [facility] Hemoglobin Auto test strip Ql (U) Negative Negative^Ne gative [facility] Hyaline casts (Urine sed) [#/Area] 3 /[LPF] High [facility] Interpretation and review of laboratory results Abnormal [facility] Ketones (U) [Mass/Vol] Negative Negat justice^Ne gative mg/dL [facility] Leukocyte esterase Auto test strip Ql (U) Negative Negative^Ne gative [facility] Mucus Ql (Urine sed) PRESENT Abnormal NONE^NONE [facility] Nitrite Auto test strip Ql (U) Negative Negative^Ne gative [facility] pH (U) 6.5 [pH] 5.0 - 8.5 [facility] Protein (U) [Mass/Vol] Trace Abnormal Negat justice^Ne gative mg/dL [facility] RBC Auto (Urine sed) [#/Area] 3 [facility] Specific gravity Refractometry automated (U) [Rel density] 1.022 1.003 - 1.035 [facility] Turbidity Ql (U) HAZY Abnormal CLEAR^CLEAR [facility] Urobilinogen Qn (U) NINF [facility] WBC Auto (Urine sed) [#/Area] 4 [facility] 36on 07-04-2023 36 Appt moved to 07/22 Normal [facility] 36 Patient requesting call back to schedule sooner appointment for left knee Normal [facility] Bacteria identified Cx Nom ( U)on 04-07-2023 Service comment (Unsp spec) [Interp] 10-50,000 ORGANISMS/mL NORMAL UROGENITAL SOWMYA [facility] Urinalysis (clean catch)on 0 04-06-2023 Bilirubin Ql (U) Negative Negative^Ne gative [facility] Color (U) YELLOW YELLOW^YELL OW [facility] Epithelial cells Auto (Urine sed) [#/Area] 3 [facility] Glucose (U) [Mass/Vol] Negative Negat justice^Ne gative mg/dL [facility] Hemoglobin Auto test strip Ql (U) Negative Negative^Ne gative [facility] Hyaline casts (Urine sed) [#/Area] 5 /[LPF] High [facility] Interpretation and review of laboratory results Abnormal [facility] Ketones (U) [Mass/Vol] Negative Negat justice^Ne gative mg/dL [facility] Leukocyte esterase Auto test strip Ql (U) Negative Negative^Ne [facility] Mucus Ql (Urine sed) PRESENT Abnormal NONE^NONE [facility] Nitrite Auto test strip Ql (U) Negative Negative^Ne [facility] pH (U) 6.5 [pH] 5.0 - 8.5 [facility] Protein (U) [Mass/Vol] 30 mg/dL Abnormal Negat justice^Ne gative [facility] RBC Auto (Urine sed) [#/Area] 1 [facility] Specific gravity Refractometry automated (U) [Rel density] 1.020 1.003 - 1.035 [facility] Turbidity Ql (U) CLEAR CLEAR^CLEAR [facility] Urobilinogen Qn (U) NINF [facility] WBC Auto (Urine sed) [#/Area] 2 [facility] XR Chest PA and Lateralon History: Chest discomfort Exam/Technique: PA and lateral chest Comparison: 08/03/2020 Findings: There is no evidence of active pulmonary or pleural disease. Cardiac and mediastinal contours are within normal limits. IMPRESSION: No evidence of active pulmonary disease demonstrated. Finalized by Bin Johnston MD on 04/06/2023 3:[address] [facility] Bin Johnston MD - 04/06/2023 History: Chest discomfort Exam/Technique: PA and lateral chest Comparison: 08/03/2020 Findings: There is no evidence of active pulmonary or pleural disease. Cardiac and mediastinal contours are within normal limits. IMPRESSION: No evidence of active pulmonary disease demonstrated. Finalized by Bin Johnston MD on 04/06/2023 3:00 PM [facility] Rad[facility] Study observation (narrative) [facility] Chest PA and LateralOrder ed By: Bin Johnston on 04-06-2023 [facility] Work Phone: Hemoglobin A1con 03-02-2023 Average glucose Estimated from glycated hemoglobin (Bld) [Mass/Vol] 131 mg/dL [facility] HbA1c (Bld) [Mass fraction] 6.2 % High 4.4 - 5.6 % [facility] Comment on above: NOTE ADA Guidelines Result HgbA1c Normal : less than 5.7 % Prediabetes : 5.7 % to 6.4 % Diabetes : > 6.4 % Use with caution in patients with abnormal hemoglobin variants as the half-life of red blood cells and in vivo glycation rates are affected. Interpretation and review of laboratory results Abnormal [facility] Family Medicine Office/Clini c Noteon 11-10-2022 [...] qWeek, # 4 EA, Refills(s) 0, Pharmacy: [facility] [id number], 172.3, cm, 11/10/22 12:48:00 EDT, Height/Length Dosing, 158.9, kg, 11/10/22 12:48:00 EDT, Weight Dosing 2. Pre-diabetes (R73.03: Prediabetes) see above Ordered: semaglutide, 0.25 mg, SubCutaneous, qWeek, # 4 EA, Refills(s) 0, Pharmacy: [facility] [id number], 172.3, cm, 11/10/22 12:48:00 EDT, Height/Length Dosing, [...] virus vaccine, inactivated 01/11/2022 Recorded SARS-CoV-2 (COVID-19) [id number] 01/11/2022 Recorded 2022-11-09: TPV40 influenza virus vaccine, inactivated 01/17/2021 Recorded SARS-CoV-2 (COVID-19) mRNA-1273 vaccine 07/13/2020 Recorded 2022-11-09: TPV40 SARS-CoV-2 (COVID-19) mRNA-1273 vaccine 06/15/2020 Recorded 2022-11-09: TPV40 influenza virus vaccine, inactivated 02/17/2020 Recorded diphtheria/pertussis, acel/tetanus adult 05/05/2019 Recorded diphtheria/pertussis, acel/tetanus adult 11/14/2018 Recorded hepatitis B adult vaccine 07/23/2018 Recorded hepatitis B adult vaccine 01/23/2018 Recorded hepatitis B adult vaccine 12/25/2017 Recorded Normal [facility] Comment on above: Result Comment: Elec tronically Signed By: Silvia Bailey\.br\Date and Time Signed: 11/10/22 13:28 EDT [facility] (Client Incubated)on 10-26-2022 Gamma interferon background IA Qn (Bld) 0.25 International_Unit/mL Invalid Interpretation Code [facility] Comment on above: Performed By: #### 3 [id number], [id number], [id number] #### [facility] [address] [place] [address] M. tuberculosis stim IFN-g by CD4+ CD8+ T-cells Qn (Bld) 0.16 International_Unit/mL Invalid Interpretation Code [facility] Comment on above: Performed By: #### 3 [id number], [id number] #### [facility] [address] [place] [address] M. tuberculosis stim IFN-g by CD4+ T-cells Qn (Bld) 0.15 International_Unit/mL Invalid Interpretation Code [facility] Comment on above: Performed By: #### 3 [id number], [id number], [id number], [id number] #### [facility] [address] [place] [address] M. tuberculosis stim IFN-g Ql (Bld) [Interp] Negative Invalid Interpretation Code Negative [facility] Comment on above: Result Comment: No r [...] interferon gamma. Chemiluminescence immunoassay methodology Performed at: [facility] [id number] PhD Jimbo Flores Performed By: #### 3 [id number], [id number], [id number], [id number] #### [facility] [address] [place] [address] Mitogen stimulated gamma interferon Qn (Bld) 1.13 International_Unit/mL Invalid Interpretation Code [facility] Comment on above: Performed By: #### 3 [id number], [id number], [id number] #### [facility] [address] [place] [address] Service comment (Unsp spec) [Interp] Comment Invalid Interpretation Code [facility] Comment on above: Result Comment: Kelvin tiFERON-TB [...] for the test. Performed By: #### 3 [id number], [id number], [id number], [id number] #### [facility] [address] [place] [address] Hep Bs Abon 10-25-2022 HBV surface Ab Ql (S) Reactive Invalid Interpretation Code [facility] Comment on above: Result Comment: Non Reactive: Inconsistent with immunity, less than 10 mIU/mL Reactive: Consistent with immunity, greater than 9.9 mIU/mL Performed at: [facility] [id number] PhD Jimbo Flores Performed By: #### 3 [id number], [id number], [id number], [id number] #### [facility] [address] [place] [address] Measles/Mumps/Rubella Immuni tyon 10-25-2022 MeV IgG IA Qn (S) {index_val} Invalid Interpretation Code Immune >16.4 [facility] Comment on above: Result Comment: Nega tive <13.5 Equivocal 13.5 - 16.4 Positive >16.4 Presence of antibodies to Rubeola is presumptive evidence of immunity except when acute infection is suspected. Performed By: #### 3 [id number], [id number], [id number], [id number] #### [facility] [address] [place] [address] MuV IgG IA Qn (S) 92.8 A unit/mL Invalid Interpretation Code Immune >10.9 [facility] Comment on above: Result Comment: Nega tive <9.0 Equivocal 9.0 - 10.9 Positive >10.9 A positive result generally indicates past exposure to Mumps virus or previous vaccination. Performed at: [facility] [address] [place], [place] [id number] PhD Jimbo Flores Performed By: #### 3 [id number], [id number], [id number], [id number] #### [facility] [address] [place] [address] Rubella virus IgG Qn (S) 19.50 [IU]/mL Invalid Interpretation Code Immune >0.99 [facility] Comment on above: Result Comment: Non- immune <0.90 Equivocal 0.90 - 0.99 Immune >0.99 Performed By: #### 3 [id number], [id number], [id number], [id number] #### [facility] [address] [place] [address] Varic IgGon 10-25-2022 VZV IgG IA Qn (S) >4000 Invalid Interpretation Code Immune >165 [facility] Comment on above: Result Comment: Nega tive <135 Equivocal 135 - 165 Positive >165 A positive result generally indicates exposure to the pathogen or administration of specific immunoglobulins, but it is not indication of active infection or stage of disease. Performed at: [facility] [address], [place] [id number] PhD Jimbo Flores Performed By: #### 3 [id number], [id number], [id number], [id number] #### [facility] [address] [place] [address] COVID + FLU Quick Testingon 02-07-2022 SARS-CoV-2 (COVID-19) RNA JAYLEEN+probe Ql (Unsp spec) Negative [employer] Other COVID + FLU Quick Testing Negative [employer] Other KNEE RIGHT 3 VWSon 2 KNEE RIGHT 3 VWS [facility] Department of Radiology [address] [place] [id number] ======== Patient Name: NAVDEEP PALAM : 1975 Sex: F Age: Race: Black Pt. 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 COMPARISON: 02/18/2021 FINDINGS: Right total knee replacement redemonstrated with no evidence of acute complications of hardware or new abnormalities of surrounding bone displayed. IMPRESSION: Unchanged from early February Electronically signed: Bin Johnston. Transcribed by: [email or web address], User Resident: Electronically Signed by: BIN JOHNSTON @ 04/10/2021 07:02 PM Normal [facility] Comment on above: Order Comment: Views (X-RAY, KNEE): AP, Lateral, Rhodhiss , Weight Bearing?: Y KNEE RIGHT 1 OR 2 [facility] 02-09 KNEE RIGHT 1 OR 2 VWS [facility] Department of Radiology [address] [place] [address] ======== Patient Name: NAVDEEP PALMA : 1975 Sex: F Age: Race: Black Pt. Location: Patient Status: D Ordered Date: 02/17/2021 4:30:00 PM Completed Date: 02/18/2021 01:57 PM Requesting Provider: LYSSA PARK Attending Provider: LYSSA PARK Report Copy To: JORDYN BARRERA Signs & Symptoms: Z48.89 Encounter for other specified surgical aftercare I10 History: Mayuri Comments: Evaluate Exam: KNEE RIGHT 1 OR 2 [facility] ======== KNEE RIGHT 1 OR 2 [...] replacement Electronically signed: Endy Andujar. Transcribed by: [email or web address], User Resident: ENDY ANDUJAR Electronically Signed by: ENDY ANDUJAR @ 02/20/2021 02:18 PM I personally read this/these film(s) with this resident Normal [facility] Comment on above: Order Comment: Evalu ate BASIC METABOLIC PANELon 12-0 Calcium [Mass/Vol] 8.3 mg/dL Low 8.6-10.3 [facility] Comment on above: Order Comment: No: D o not add to previous draw Performed By: #### 3 1595 #### [facility] [address] [place] [address], [place] Chloride [Moles/Vol] 104 mmol/L Normal 98-107 [facility] Comment on above: Order Comment: No: D o not add to previous draw Performed By: #### 3 1595 #### [facility] [address] [place] [address], [place] CO2 [Moles/Vol] 28 mmol/L Normal 21-31 [facility] Comment on above: Order Comment: No: D o not add to previous draw Performed By: #### 3 1595 #### [facility] [address] [place] [address], [place] Creatinine [Mass/Vol] 0.64 mg/dL Normal 0.60-1.20 [facility] Comment on above: Order Comment: No: D o not add to previous draw Performed By: #### 3 1595 #### [facility] [address] [place] [address], [place] GFR/1.73 sq M.predicted among blacks MDRD (S/P/Bld) [Vol rate/Area] mL/min/{1.73_m2} Normal >60 [facility] Comment on above: Order Comment: No: D o not add to previous draw Performed By: #### 3 1595 #### [facility] [address] [place] [address], [place] GFR/1.73 sq M.predicted among non-blacks MDRD (S/P/Bld) [Vol rate/Area] mL/min/{1.73_m2} Normal >60 [facility] Comment on above: Order Comment: No: D o not add to previous draw Performed By: #### 3 1595 #### [facility] [address] [place] [address], [place] Glucose [Mass/Vol] 133 mg/dL High 70-100 [facility] Comment on above: Order Comment: No: D o not add to previous draw Performed By: #### 3 1595 #### [facility] [address] [place] [address], [facility] Potassium [Moles/Vol] 4.3 mmol/L Normal 3.5-5.1 [facility] Comment on above: Order Comment: No: D o not add to previous draw Performed By: #### 3 1595 #### [facility] [address] [place] [address], [place] Sodium [Moles/Vol] 138 mmol/L Normal 136-145 [facility] Comment on above: Order Comment: No: D o not add to previous draw Performed By: #### 3 1595 #### [facility] [address] [place] [address], [facility] Urea nitrogen [Mass/Vol] 7 mg/dL Normal 7-25 [facility] Comment on above: Order Comment: No: D o not add to previous draw Performed By: #### 3 1595 #### [facility] [address] [place] [address], [facility] CBC COMPLETE BLOOD COUNTon 1 04-13-2020 Erythrocyte distribution width (RBC) [Ratio] 13.9 % Normal 11.5-15.0 [facility] Comment on above: Order Comment: No: D o not add to previous draw Performed By: #### 5 0608 #### [facility] [address] [place] [address], [place] Hematocrit (Bld) [Volume fraction] 32.2 % Low 36.0-45.0 [facility] Comment on above: Order Comment: No: D o not add to previous draw Performed By: #### 5 0608 #### [facility] [address] [place] [address], [facility] Hemoglobin (Bld) [Mass/Vol] 10.7 g/dL Low 12.0-15.0 [facility] Comment on above: Order Comment: No: D o not add to previous draw Performed By: #### 5 0608 #### [facility] [address] [facility] [address] MCH (RBC) [Entitic mass] 30.3 pg Normal 27.0-33.0 [facility] Comment on above: Order Comment: No: D o not add to previous draw Performed By: #### 5 0608 #### [facility] [address] MCHC (RBC) [Mass/Vol] 33.2 g/dL Normal 32.0-35.0 [facility] Comment on above: Order Comment: No: D o not add to previous draw Performed By: #### 5 0608 #### [facility] [address] [facility] [place] [address], [facility] MCV (RBC) [Entitic vol] 91.2 fL Normal 82.0-98.0 [facility] Comment on above: Order Comment: No: D o not add to previous draw Performed By: #### 5 0608 #### [facility] [address] [facility]. [address] Nucleated RBC/100 WBC (Bld) [Ratio] 0 % Normal 0-0 [facility] Comment on above: Order Comment: No: D o not add to previous draw Performed By: #### 5 0608 #### [facility] [address] [facility] [place] [address], [facility] PLAT CNT 204 10*3/uL Normal 150-400 [facility] Comment on above: Order Comment: No: D o not add to previous draw Performed By: #### 5 0608 #### [facility] [address] [place] [address], [facility] RBC (Bld) [#/Vol] 3.53 10*6/uL Low 3.80-5.00 [facility] Comment on above: Order Comment: No: D o not add to previous draw Performed By: #### 5 0608 #### [facility] [address] [place] [address], [facility] WBC (Bld) [#/Vol] 6.84 10*3/uL Normal 4.00-10.60 [facility] Comment on above: Order Comment: No: D o not add to previous draw Performed By: #### 5 0608 #### [facility] [address] Operative Reporton 1 Operative Report MR#: [id number] 2 [facility] Pt. Name: Navdeep Palma Room #: [id number] Discharge Date: Birthdate: 1975 OPERATIVE REPORT DATE [...] to morbid obesity and cemented implants using [place] [employer] posterior stabilized implant. 2. Superficial and [...] marked. The patient was taken to the [facility] OR and was placed in a supine [...] iden (more content not included)... Normal [facility] POC GLUCOSE LABon 02-09-2021 Glucose [Mass/Vol] 96 mg/dL Normal 70-100 [facility] Comment on above: Performed By: #### 8 5499 #### [address] PORTABLE KNEE RIGHT 2 [facility] 02-09-2021 PORTABLE KNEE RIGHT 2 [facility] Department of Radiology [address] [place] [id number] ======== Patient Name: NAVDEEP PALMA : 1975 Sex: F Age: Race: Black Pt. Location: OUTP Patient Status: O Ordered Date: 02/09/2021 11:25:00 AM Completed Date: 02/09/2021 11:51 AM Requesting Provider: CAMILA BARRIOS Attending Provider: SHENDGE, VITHAL Report Copy To: Signs & Symptoms: Pain [...] Electronically signed: Jozef Manriquez M.D.. Transcribed by: [email or web address], User Resident: Electronically Signed by: JOZEF MANRIQUEZ @ 02/09/2021 12:05 PM Normal [facility] Comment on above: Order Comment: Hardw are Evaluation, post op eval, pt in pacu *MRSA/MSSA DNA NASALon 01-18 *MRSA/MSSA DNA NASAL Clinical Report: (D ) Specimen: NASAL SWAB Collected: 01/18/2021 14:00 Status: Final Last Updated: 01/18/2021 17:12 MSSA DNA (Final) Methicillin Susceptible Staphylococcus aureus DNA Detected MRSA DNA (Final) Negative Normal [facility] Comment on above: Performed By: #### 3 1595 #### [facility] [address] [facility]. [address] *URINE CULTUREon 01-18-2021 *URINE CULTURE Clinical Report: (D) Specimen: URINE Collected: 01/18/2021 14:00 Status: Final Last Updated: 01/20/2021 09:37 ISO (Final) Lactobacillus gasseri >100,000 Cfu/Ml Normal [facility] Comment on above: Performed By: #### 3 0339 #### [facility] [address] [place] [address], [facility] APTTon 01-18-2021 aPTT Coag (Bld) [Time] 29.5 s Normal 25.0-35.0 [facility] Comment on above: Result Comment: ALL RESULTS [...] PURPOSE. Performed By: #### 3 1595 #### [facility] [address] [facility] [place] [address], [facility] BASIC METABOLIC PANELon Calcium [Mass/Vol] 8.9 mg/dL Normal 8.6-10.3 [facility] Comment on above: Performed By: #### 0 0071 #### [facility] [address] [facility] [place] [address], [facility] Chloride [Moles/Vol] 105 mmol/L Normal 98-107 [facility] Comment on above: Performed By: #### 0 0071 #### [facility] [address] [place] [address], [facility] CO2 [Moles/Vol] 27 mmol/L Normal 21-31 [facility] Comment on above: Performed By: #### 0 0071 #### [facility] [address] [facility] [address], [facility] Creatinine [Mass/Vol] 0.67 mg/dL Normal 0.60-1.20 [facility] Comment on above: Performed By: #### 0 0071 #### [facility] [address] [place] [address], [facility] GFR/1.73 sq M.predicted among blacks MDRD (S/P/Bld) [Vol rate/Area] mL/min/{1.73_m2} Normal >60 [facility] Comment on above: Performed By: #### 0 0071 #### [facility] [address] [place] [address], [facility] GFR/1.73 sq M.predicted among non-blacks MDRD (S/P/Bld) [Vol rate/Area] mL/min/{1.73_m2} Normal >60 [facility] Comment on above: Performed By: #### 0 0071 #### [facility] [address] [place] [address], [facility] Glucose [Mass/Vol] 90 mg/dL Normal 70-100 [facility] Comment on above: Performed By: #### 0 0071 #### [facility] [address] [place] [address], [facility] Potassium [Moles/Vol] 3.9 mmol/L Normal 3.5-5.1 [facility] Comment on above: Performed By: #### 0 0071 #### [facility] [address] [place] [address], [facility] Sodium [Moles/Vol] 140 mmol/L Normal 136-145 [facility] Comment on above: Performed By: #### 0 0071 #### [facility] [address] [place] [address], [facility] Urea nitrogen [Mass/Vol] 7 mg/dL Normal 7-25 [facility] Comment on above: Performed By: #### 0 0071 #### [facility] [address] [place] [address], [facility] CBC W/DIFFon 01-18-2021 ABS IMM GRANS 0.0 10*3/uL Normal 0.0-0.2 [facility] Comment on above: Performed By: #### 3 1595 #### [facility] [address] [place] [address], [facility] ABS NEUTROPHILS 1.2 10*3/uL Low 1.6-7.6 [facility] Comment on above: Performed By: #### 3 1595 #### [facility] [address] [place] [address], [facility] Basophils (Bld) [#/Vol] 0.0 10*3/uL Normal 0.0-0.2 [facility] Comment on above: Performed By: #### 3 1595 #### [facility] [address] [place] [address], [place] Basophils/100 WBC (Bld) 0.7 % Normal 0.0-1.0 [facility] Comment on above: Performed By: #### 3 1595 #### [facility] [address] [place] [address], [facility] Eosinophils (Bld) [#/Vol] 0.0 10*3/uL Normal 0.0-0.5 [facility] Comment on above: Performed By: #### 3 1595 #### [facility] [address] [place] [address], [facility] Eosinophils/100 WBC (Bld) 0.7 % Normal 0.0-6.0 [facility] Comment on above: Performed By: #### 3 1595 #### [facility] [address] [place] [address], [facility] Erythrocyte distribution width (RBC) [Ratio] 13.9 % Normal 11.5-15.0 [facility] Comment on above: Performed By: #### 3 1595 #### [facility] [address] [place] [address], [place] Hematocrit (Bld) [Volume fraction] 40.3 % Normal 36.0-45.0 [facility] Comment on above: Performed By: #### 3 1595 #### [facility] [address] [place] [address], [place] Hemoglobin (Bld) [Mass/Vol] 12.6 g/dL Normal 12.0-15.0 [facility] Comment on above: Performed By: #### 3 1595 #### [facility] [address] [place] [address], [facility] IMMATURE GRANS 0.4 % Normal 0.0-1.0 [facility] Comment on above: Performed By: #### 3 1595 #### [facility] [address] [facility] [address], [facility] Lymphocytes (Bld) [#/Vol] 1.2 10*3/uL Normal 1.2-4.0 [facility] Comment on above: Performed By: #### 3 1595 #### [facility] [address] [facility] [address], [facility] Lymphocytes/100 WBC (Bld) 45.0 % Normal 20.0-45.0 [facility] Comment on above: Performed By: #### 3 1595 #### [facility] [address] [facility] [address], [facility] MCH (RBC) [Entitic mass] 29.7 pg Normal 27.0-33.0 [facility] Comment on above: Performed By: #### 3 1595 #### [facility] [address] [facility] [place] [address], [facility] MCHC (RBC) [Mass/Vol] 31.3 g/dL Low 32.0-35.0 [facility] Comment on above: Performed By: #### 3 1595 #### [facility] [address] [place] [id number], [facility] MCV (RBC) [Entitic vol] 95.0 fL Normal 82.0-98.0 [facility] Comment on above: Performed By: #### 3 1595 #### [facility] [address] [place] [id number], [facility] Monocytes (Bld) [#/Vol] 0.3 10*3/uL Normal 0.1-1.0 [facility] Comment on above: Performed By: #### 3 1595 #### [facility] [address] [place] [address], [facility] MONOS 9.3 % Normal 5.0-12.0 [facility] Comment on above: Performed By: #### 3 1595 #### [facility] [address] [facility] [place] [address], [facility] Neutrophils/100 WBC (Bld) 43.9 % Normal 40.0-72.0 [facility] Comment on above: Performed By: #### 3 1595 #### [facility] [address] [facility] [place] [place] [address], [facility] Nucleated RBC/100 WBC (Bld) [Ratio] 0 % Normal 0-0 [facility] Comment on above: Performed By: #### 3 1595 #### [facility] [address] [facility] [place] [place] [address], [facility] PLAT CNT 269 10*3/uL Normal 150-400 [facility] Comment on above: Performed By: #### 3 1595 #### [facility] [address] [facility] [place] [address], [facility] RBC (Bld) [#/Vol] 4.24 10*6/uL Normal 3.80-5.00 [facility] Comment on above: Performed By: #### 3 1595 #### [facility] [address] [facility] [place] [address], [facility] WBC (Bld) [#/Vol] 2.69 10*3/uL Low 4.00-10.60 [facility] Comment on above: Performed By: #### 3 1595 #### [facility] [address] [place] [address], [facility] HEMOGLOBIN A1Con 01-18-2021 Glucose [Moles/Vol] 126 mmol/L Normal [facility] Comment on above: Performed By: #### 3 1791 #### [facility] [address] [facility] [address] HbA1c (Bld) [Mass fraction] 6.0 % Normal 4.0-6.0 [facility] Comment on above: Performed By: #### 3 1791 #### [facility] [address] [facility] PROTHROMBIN TIMEon 1 INR Coag (PPP) [Relative time] 1.04 {INR} Normal 0.91-1.16 [facility] Comment on above: Result Comment: ACCC P [...] RANGE. CHEST 1995;108:231S-246S. Performed By: #### 3 7592 #### [facility] [address] [facility]. [address] PT Coag (PPP) [Time] 13.6 s Normal 12.3-14.8 [facility] Comment on above: Result Comment: ALL RESULTS MUST BE INTERPRETED WITH RESPECT TO BLOOD DRAWING ARTIFACT OR DILUTION ERROR OF ANTICOAGULANT AT THE TIME OF SAMPLING. Performed By: #### 3 2557 #### [facility] [address] [place] [address], [place] TYPE AND SCREENon 01-18-2021 ABO INTERPRETATION O Normal [facility] Comment on above: Performed By: #### 3 1595 #### [facility] [address] [place] [address], [place] RH INTERPRETATION Positive Normal [facility] Comment on above: Performed By: #### 3 1595 #### [facility] [address] [place] [address], [place] URINALYSIS REFLEXon 01-19-20 21 Appearance (U) SL CLOUDY Abnormal CLEAR [facility] Comment on above: Performed By: #### 3 0965 #### [facility] [address] [place] [address], [place] Bilirubin Ql (U) Negative Normal NEGATIVE [facility] Comment on above: Performed By: #### 3 0965 #### [facility] [address] [place] [address], [place] Color (U) YELLOW Normal YELLOW [facility] Comment on above: Performed By: #### 3 0965 #### [facility] [address] [place] [address], [place] EPIS MOD Abnormal FEW,OCC,NON E SEEN [facility] Comment on above: Performed By: #### 3 0965 #### [facility] [address] [place] [address], [place] Glucose Ql (U) Negative Normal NEGATIVE [facility] Comment on above: Performed By: #### 3 0965 #### [facility] [address] [place] [address], [place] Hemoglobin Ql (U) Negative Normal NEGATIVE The [facility] Comment on above: Performed By: #### 3 0965 #### [facility] [address] [place] [address], [place] Hyaline casts LM Ql (Urine sed) 3 /LPF Abnormal NONE SEEN [facility] Comment on above: Performed By: #### 3 0965 #### [facility] [address] [facility]. [address] KETONE Negative Normal NEGATIVE [facility] Comment on above: Performed By: #### 3 0965 #### [facility] [address] LEUK SOPHIA TRACE Abnormal NEGATIVE [facility] Comment on above: Performed By: #### 3 0965 #### [facility] [address] MUCUS THREADS FEW Abnormal NONE SEEN The [facility] Comment on above: Performed By: #### 3 0965 #### [facility] [address] Nitrite Ql (U) Negative Normal NEGATIVE [facility] Comment on above: Performed By: #### 3 0965 #### [facility] [address] pH (U) 7.0 [pH] Normal 5.0-8.0 [facility] Comment on above: Performed By: #### 3 0965 #### [facility] [address] Protein Ql (U) Negative Normal NEGATIVE [facility] Comment on above: Performed By: #### 3 0965 #### [facility] [address] RBC 0-2 Abnormal NONE SEEN [facility] Comment on above: Performed By: #### 3 0965 #### [facility] [address] SPEC GRAV 1.023 High 1.015-1.020 The [facility] Comment on above: Performed By: #### 3 0965 #### [facility] [address] [facility] [place] [address], [facility] WBC UA 0-2 Abnormal NONE SEEN [facility] Comment on above: Performed By: #### 3 0965 #### [facility] [address] [facility] [place] [address], [facility] MRI KNEE WO CONTRAST RIGHTon 09-08-2020 MRI KNEE WO CONTRAST RIGHT [facility] Department of Radiology [address] [place] [address] ======== Patient Name: NAVDEEP PALMA : 1975 Sex: F Age: Race: Black Pt. Location: Patient Status: D Ordered Date: 08/16/2020 4:30:00 PM Completed Date: 09/08/2020 01:44 PM Requesting Provider: KINGS MIRANDA Attending Provider: KINGS MIRANDA Report Copy To: Signs & Symptoms: M17.11 Unilateral primary osteoarthritis, right knee I10 History: Mayuri, PHONE:[phone],*NE EDS ORTHO F/U APPT. NO METAL C no pc required PER [facility] REF# [id number] 08/20/20 [id number] *KW Comments: Evaluate Exam: MRI KNEE WO [...] ACL. Electronically signed: Bin Frazier. Transcribed by: [email or web address], User Resident: Electronically Signed by: BIN FRAZIER @ 09/09/2020 04:53 PM Normal [facility] Comment on above: Order Comment: Evalu ate KNEE LEFT 4VWSon 08-16-2020 KNEE LEFT 4VWS [facility] Department of Radiology [address] [place] [id number] ======== Patient Name: NAVDEEP PALMA : [...] angulation Electronically signed: Gualberto Worthington. Transcribed by: [email or web address], User Resident: Electronically Signed by: GUALBERTO WORTHINGTON @ 08/16/2020 06:23 PM Normal [facility] Comment on above: Order Comment: Evalu ate KNEE RIGHT 4 [facility] KNEE RIGHT 4 [facility] Department of Radiology [address] [place] [id number] ======== Patient Name: NAVDEEP PALMA : 1975 Sex: F Age: Race: Black Pt. Location: 84 Patient Status: O Ordered Date: 08/16/2020 9:55:00 AM Completed Date: 08/16/2020 10:19 AM Requesting Provider: KINGS MIRANDA Attending Provider: KINGS MIRANDA Report Copy To: Signs & Symptoms: M25.569 Pain in unspecified knee I10 History: [place] Comments: Evaluate Exam: KNEE RIGHT 4 VWS [...] angulation Electronically signed: Gualberto Worthington. Transcribed by: [email or web address], User Resident: Electronically Signed by: GUALBERTO WORTHINGTON @ 08/16/2020 06:23 PM [place] [facility] Comment on above: Order Comment: Evalu ate XR WRIST LT MIN 3 Von 2017 XR WRIST LT MIN 3 V [address] [facility] [place] [address] Patient: NAVDEEP PALMA Exam Date: 03/04/2018 : 1975 Gender:F Ordering : DR SALLY WELCH . Admission #: [id number] Family : Order #: [id number] CLICK HERE TO VIEW EXAM RADIOLOGY REPORT [...] Wilder M.D. on 03/04/2018 at 23:45 Normal [facility] Vital Signs Date Time Vital Sign Value Performing Clinician Yaritza jaeger 11-05-2024 14:34-0400 Body height 165.1 cm Bongbridget Leachight ASSISTANT SHIFT SUPERVISOR-CUSTOMS ENTRY WRITER Work Phone: [employer] 11-05-2024 14:34-0400 Body mass index (BMI) [Ratio] 57.14 kg/m2 Bongbridget Yee ASSISTANT SHIFT SUPERVISOR-CUSTOMS ENTRY WRITER Work Phone: [employer] 11-05-2024 14:34-0400 Body weight 155.76 kg Bongcl Yee ASSISTANT SHIFT SUPERVISOR-CUSTOMS ENTRY WRITER Work Phone: [employer] 11-05-2024 14:34-0400 Diastolic blood pressure 80 mm[Hg] Bong Leachight ASSISTANT SHIFT SUPERVISOR-CUSTOMS ENTRY WRITER Work Phone: [employer] 11-05-2024 14:34-0400 Heart rate 84 /min Bongbridget Yee ASSISTANT SHIFT SUPERVISOR-CUSTOMS ENTRY WRITER Work Phone: [employer] 11-05-2024 14:34-0400 SaO2% (BldA) [Mass fraction] 98 % Bong Leachight ASSISTANT SHIFT SUPERVISOR-CUSTOMS ENTRY WRITER Work Phone: [facility] 11-05-2024 14:34-0400 Systolic blood pressure 132 mm[Hg] Bong Dallas ASSISTANT SHIFT SUPERVISOR-CUSTOMS ENTRY WRITER Work Phone: [facility] 07-18-2024 15:15-0400 Body height 165.1 cm Bong Leachight ASSISTANT SHIFT SUPERVISOR-CUSTOMS ENTRY WRITER Work Phone: [facility] 07-18-2024 15:15-0400 Body mass index (BMI) [Ratio] 54.58 kg/m2 Bong Dallas ASSISTANT SHIFT SUPERVISOR-CUSTOMS ENTRY WRITER Work Phone: [facility] 07-18-2024 15:15-0400 Body weight 148.78 kg Bong Dallas ASSISTANT SHIFT SUPERVISOR-CUSTOMS ENTRY WRITER Work Phone: [facility] 07-18-2024 15:15-0400 Diastolic blood pressure 74 mm[Hg] Bong Harriswright ASSISTANT SHIFT SUPERVISOR-CUSTOMS ENTRY WRITER Work Phone: [facility] 07-18-2024 15:15-0400 Heart rate 95 /min Bong Leachight ASSISTANT SHIFT SUPERVISOR-CUSTOMS ENTRY WRITER Work Phone: [facility] 07-18-2024 15:15-0400 SaO2% (BldA) [Mass fraction] 98 % Bong Harriswright ASSISTANT SHIFT SUPERVISOR-CUSTOMS ENTRY WRITER Work Phone: [facility] 07-18-2024 15:15-0400 Systolic blood pressure 126 mm[Hg] Bong Dallas ASSISTANT SHIFT SUPERVISOR-CUSTOMS ENTRY WRITER Work Phone: [facility] 02-22-2024 14:04-0500 Body height 167.6 cm Bong Zhane ASSISTANT SHIFT SUPERVISOR-CUSTOMS ENTRY WRITER Work Phone: [facility] 02-22-2024 14:04-0500 Body mass index (BMI) [Ratio] 52.03 kg/m2 Bong Dallas ASSISTANT SHIFT SUPERVISOR-CUSTOMS ENTRY WRITER Work Phone: [facility] 02-22-2024 14:04-0500 Body weight 146.15 kg Bong Yee ASSISTANT SHIFT SUPERVISOR-CUSTOMS ENTRY WRITER Work Phone: [facility] 02-22-2024 14:04-0500 Diastolic blood pressure 76 mm[Hg] Bong Leachight ASSISTANT SHIFT SUPERVISOR-CUSTOMS ENTRY WRITER Work Phone: [facility] 02-22-2024 14:04-0500 Heart rate 76 /min Bong Leachight ASSISTANT SHIFT SUPERVISOR-CUSTOMS ENTRY WRITER Work Phone: [facility] 02-22-2024 14:04-0500 SaO2% (BldA) [Mass fraction] 98 % Bong Leachight ASSISTANT SHIFT SUPERVISOR-CUSTOMS ENTRY WRITER Work Phone: [facility] 02-22-2024 14:04-0500 Systolic blood pressure 124 mm[Hg] Bong Yee ASSISTANT SHIFT SUPERVISOR-CUSTOMS ENTRY WRITER Work Phone: [facility] 02-11-2024 14:55-0500 Body mass index (BMI) [Ratio] 49.93 kg/m2 Raman Miguel DO Work Phone: [facility] 02-11-2024 14:55-0500 Body weight 144.61 kg Raman Miguel DO Work Phone: [facility] 02-11-2024 14:55-0500 Diastolic blood pressure 70 mm[Hg] Raman Miguel DO Work Phone: [facility] 02-11-2024 14:55-0500 Systolic blood pressure 120 mm[Hg] Raman Miguel DO Work Phone: [facility] 02-04-2024 14:19-0500 Body mass index (BMI) [Ratio] 50.09 kg/m2 Ainsley ELDRIDGE Work Phone: [facility] 02-04-2024 14:19-0500 Body weight 145.06 kg Ainsley ELDRIDGE Work Phone: [facility] 02-04-2024 14:19-0500 Diastolic blood pressure 68 mm[Hg] Ainsley ELDRIDGE Work Phone: [facility] 02-04-2024 14:19-0500 Systolic blood pressure 120 mm[Hg] Ainsley ELDRIDGE Work Phone: [facility] 01-29-2024 15:26-0500 Body height 167.6 cm Jordyn Moreira MD Work Phone: [facility] 01-29-2024 15:26-0500 Body mass index (BMI) [Ratio] 51.81 kg/m2 Jordyn Moreira MD Work Phone: [facility] 01-29-2024 15:26-0500 Body weight 145.6 kg Jordyn Moreira MD Work Phone: [facility] 01-29-2024 15:26-0500 Diastolic blood pressure 86 mm[Hg] Jordyn Moreira MD Work Phone: [facility] 01-29-2024 15:26-0500 Heart rate 94 /min Jordyn Moreira MD Work Phone: [facility] 01-29-2024 15:26-0500 SaO2% (BldA) [Mass fraction] 96 % Jordyn Moreira MD Work Phone: [facility] 01-29-2024 15:26-0500 Systolic blood pressure 114 mm[Hg] Jordyn Moreira MD Work Phone: [facility] 01-10-2024 10:00-0400 Body height 167.6 cm Neena Del Castillo DO Work Phone: [facility] 01-10-2024 10:00-0400 Body mass index (BMI) [Ratio] 51.99 kg/m2 Neena Del Castillo DO Work Phone: [facility] 01-10-2024 10:00-0400 Body weight 146.1 kg Neena Del Castillo DO Work Phone: [facility] 01-10-2024 10:00-0400 Diastolic blood pressure 88 mm[Hg] Neena Del Castillo DO Work Phone: [facility] 01-10-2024 10:00-0400 Heart rate 85 /min Neena Del Castillo DO Work Phone: [facility] 01-10-2024 10:00-0400 SaO2% (BldA) [Mass fraction] 94 % Neena Del Castillo DO Work Phone: [facility] 01-10-2024 10:00-0400 Systolic blood pressure 149 mm[Hg] Neena Del Castillo DO Work Phone: [facility] 01-07-2024 09:33-0400 Body mass index (BMI) [Ratio] 53.75 kg/m2 Bobbi Ortiz MD Work Phone: [facility] 01-07-2024 09:33-0400 Body weight 146.51 kg Bobbi Ortiz MD Work Phone: [facility] 01-07-2024 09:33-0400 Diastolic blood pressure 98 mm[Hg] Bobbi Ortiz MD Work Phone: [facility] 01-07-2024 09:33-0400 Heart rate 106 /min Bobbi Ortiz MD Work Phone: [facility] 01-07-2024 09:33-0400 Systolic blood pressure 153 mm[Hg] Bobib Ortiz MD Work Phone: [facility] 12-19-2023 10:26-0400 Body height 165.1 cm Bong Yee ASSISTANT SHIFT SUPERVISOR-CUSTOMS ENTRY WRITER Work Phone: [facility] 12-19-2023 10:26-0400 Body mass index (BMI) [Ratio] 54.02 kg/m2 Bong Yee ASSISTANT SHIFT SUPERVISOR-CUSTOMS ENTRY WRITER Work Phone: [facility] 12-19-2023 10:26-0400 Body weight 147.24 kg Bong Zhane ASSISTANT SHIFT SUPERVISOR-CUSTOMS ENTRY WRITER Work Phone: [employer] 12-19-2023 10:26-0400 Diastolic blood pressure 90 mm[Hg] Bong Dallas ASSISTANT SHIFT SUPERVISOR-CUSTOMS ENTRY WRITER Work Phone: [facility] 12-19-2023 10:26-0400 Heart rate 66 /min Bong Zhane ASSISTANT SHIFT SUPERVISOR-CUSTOMS ENTRY WRITER Work Phone: [facility] [employer] 12-19-2023 10:26-0400 Respiratory rate 18 /min Bong Dallas ASSISTANT SHIFT SUPERVISOR-CUSTOMS ENTRY WRITER Work Phone: [facility] 12-19-2023 10:26-0400 SaO2% (BldA) [Mass fraction] 91 % Bong Leachight ASSISTANT SHIFT SUPERVISOR-CUSTOMS ENTRY WRITER Work Phone: [facility] 12-19-2023 10:26-0400 Systolic blood pressure 116 mm[Hg] Bong Leachight ASSISTANT SHIFT SUPERVISOR-CUSTOMS ENTRY WRITER Work Phone: [facility] 11-16-2023 14:20-0400 Body temperature 98 [degF] YULISA Raoa Anglim Work Phone: [facility] 11-16-2023 14:20-0400 Diastolic blood pressure 68 mm[Hg] ASSISTANT SHIFT SUPERVISOR Jordyn Anglim Work Phone: [facility] 11-16-2023 14:20-0400 Heart rate 92 /min ASSISTANT SHIFT SUPERVISOR Jordyn Anglim Work Phone: [facility] 11-16-2023 14:20-0400 Respiratory rate 16 /min ASSISTANT SHIFT SUPERVISOR Jordyn Anglim Work Phone: [facility] 11-16-2023 14:20-0400 SaO2% (BldA) [Mass fraction] 97 % ASSISTANT SHIFT SUPERVISOR Jordyn Anglim Work Phone: [facility] 11-16-2023 14:20-0400 Systolic blood pressure 143 mm[Hg] ASSISTANT SHIFT SUPERVISOR Jordyn Anglim Work Phone: [facility] 11-15-2023 07:47-0400 Body height 167.64 cm YULISA Barrera Work Phone: [facility] 11-13-2023 05:56-0400 Inhaled oxygen flow rate 1.5 L/min YULISA Barrera Work Phone: [facility] 11-11-2023 04:42-0400 Body weight 160 kg YULISA Barrera Work Phone: [facility] 10-30-2023 11:12-0400 Body height 167.6 cm Gina Bourgeois ASSISTANT SHIFT SUPERVISOR-CUSTOMS ENTRY WRITER Work Phone: [facility] 10-30-2023 11:12-0400 Body mass index (BMI) [Ratio] 56.49 kg/m2 Gina Bourgeois ASSISTANT SHIFT SUPERVISOR-CUSTOMS ENTRY WRITER Work Phone: [facility] 10-30-2023 11:12-0400 Body weight 158.76 kg Gina Bourgeois ASSISTANT SHIFT SUPERVISOR-CUSTOMS ENTRY WRITER Work Phone: [facility] 10-30-2023 11:12-0400 Diastolic blood pressure 83 mm[Hg] Gina Bourgeois ASSISTANT SHIFT SUPERVISOR-CUSTOMS ENTRY WRITER Work Phone: [facility] 10-30-2023 11:12-0400 Heart rate 80 /min Gina Bourgeois ASSISTANT SHIFT SUPERVISOR-CUSTOMS ENTRY WRITER Work Phone: [facility] 10-30-2023 11:12-0400 Respiratory rate 18 /min Gina Bourgeois ASSISTANT SHIFT SUPERVISOR-CUSTOMS ENTRY WRITER Work Phone: [facility] 10-30-2023 11:12-0400 SaO2% (BldA) [Mass fraction] 99 % Gina Bourgeois ASSISTANT SHIFT SUPERVISOR-CUSTOMS ENTRY WRITER Work Phone: [facility] 10-30-2023 11:12-0400 Systolic blood pressure 126 mm[Hg] Gina Bourgeois ASSISTANT SHIFT SUPERVISOR-CUSTOMS ENTRY WRITER Work Phone: [facility] 09-27-2023 15:42-0400 Body height 165.1 cm Jordyn Moreira MD Work Phone: [facility] 09-27-2023 15:42-0400 Body mass index (BMI) [Ratio] 57.24 kg/m2 Jordyn Moreira MD Work Phone: [facility] 09-27-2023 15:42-0400 Body weight 156.04 kg Jordyn Moreira MD Work Phone: [facility] 09-27-2023 15:42-0400 Diastolic blood pressure 96 mm[Hg] Jordyn Moreira MD Work Phone: [facility] 09-27-2023 15:42-0400 Heart rate 78 /min Jordyn Moreira MD Work Phone: [facility] 09-27-2023 15:42-0400 SaO2% (BldA) [Mass fraction] 97 % Jordyn Moreira MD Work Phone: [facility] 09-27-2023 15:42-0400 Systolic blood pressure 136 mm[Hg] Jordyn Moreira MD Work Phone: [facility] 08-16-2023 14:08-0400 Body height 165.1 cm Bong Yee ASSISTANT SHIFT SUPERVISOR-CUSTOMS ENTRY WRITER Work Phone: [facility] 08-16-2023 14:08-0400 Body mass index (BMI) [Ratio] 56.75 kg/m2 Bong Leachight ASSISTANT SHIFT SUPERVISOR-CUSTOMS ENTRY WRITER Work Phone: [facility] 08-16-2023 14:08-0400 Body weight 154.68 kg Bong Harriswright ASSISTANT SHIFT SUPERVISOR-CUSTOMS ENTRY WRITER Work Phone: [facility] 08-16-2023 14:08-0400 Diastolic blood pressure 80 mm[Hg] Bong Yee ASSISTANT SHIFT SUPERVISOR-CUSTOMS ENTRY WRITER Work Phone: [facility] 08-16-2023 14:08-0400 Heart rate 71 /min Bong Yee ASSISTANT SHIFT SUPERVISOR-CUSTOMS ENTRY WRITER Work Phone: [employer] 08-16-2023 14:08-0400 Respiratory rate 18 /min Bong Yee ASSISTANT SHIFT SUPERVISOR-CUSTOMS ENTRY WRITER [facility] 08-16-[facility]23 14:08-0400 SaO2% (BldA) [Mass fraction] 99 % Bong Yee ASSISTANT SHIFT SUPERVISOR-CUSTOMS ENTRY WRITER Work Phone: [employer] 08-16-2023 14:08-0400 Systolic blood pressure 120 mm[Hg] Bong Yee ASSISTANT SHIFT SUPERVISOR-CUSTOMS ENTRY WRITER [facility] 08-02-2023 10:04-0400 Body height 165.1 cm Michael Stephens MD [facility] 08-02-2023 10:04-0400 Body mass index (BMI) [Ratio] 56.75 kg/m2 Michael Stephens MD Work Phone: [employer] 08-02-2023 10:04-0400 Body weight 154.68 kg Michael Stephens MD Work Phone: [employer] 02-07-2022 17:15-0500 Body height 167.64 cm Alesha Watkins Other [employer] Other 02-07-2022 17:15-0500 Body temperature 98 [degF] Alesha Watkins Other [employer] Other 02-07-2022 17:15-0500 Diastolic blood pressure 106 mm[Hg] Alesha Watkins Other [employer] Other 02-07-2022 17:15-0500 Respiratory rate 18 /min Alesha Watkins Other [employer] Other 02-07-2022 17:15-0500 SaO2% (BldA) [Mass fraction] 99 % Alesha Watkins Other [employer] Other 02-07-2022 17:15-0500 Systolic blood pressure 143 mm[Hg] Alesha Watkins Other [employer] Other Encounters Encounter Date Encounter Type Care Provider Facility Start: 11-17-2024 End: 11-17-2024 Bamboo flowsheet Raman Miguel DO Work Phone: [facility] Start: 11-17-2024 End: 11-17-2024 Bamboo flowsheet Raman Miguel DO Work Phone: [facility] Start: 11-17-2024 End: 11-17-2024 Telephone encounter Neena Del Castillo DO Work Phone: [facility] Start: 11-11-2024 End: 11-11-2024 Telephone encounter Laura Becker CMA [facility] Comment on above: PA on Oxycodone Start: 11-05-2024 End: 11-05-2024 ambulatory [facility] Start: 11-05-2024 End: 11-05-2024 Office outpatient visit 15 minutes Bong Yee ASSISTANT SHIFT SUPERVISOR-CUSTOMS ENTRY WRITER Work Phone: [facility] Comment on above: Systemic lupus eryth ematosus, unspecified SLE type, unspecified organ involvement status ([facility]) (Primary Dx); Spondylosis without myelopathy or radiculopathy, lumbosacral region Start: 10-28-2024 End: 10-28-2024 Telephone encounter Neena Del Castillo DO Work Phone: [facility] Start: 10-22-2024 End: 10-29-[address] [facility] Comment on above: Med Refill Start: 10-20-2024 End: 10-20-2024 Orders Only Bong Yee ASSISTANT SHIFT SUPERVISOR-CUSTOMS ENTRY WRITER Work Phone: [facility] Comment on above: Pre-diabetes (Primar y Dx) Start: 10-07-2024 End: 10-07-2024 Refill Bong Yee ASSISTANT SHIFT SUPERVISOR-CUSTOMS ENTRY WRITER Work Phone: [facility] Comment on above: Medication refill Start: 09-26-2024 End: 09-26-2024 Refill Bong Yee ASSISTANT SHIFT SUPERVISOR-CUSTOMS ENTRY WRITER Work Phone: [facility] Comment on above: Gastroesophageal ref lux disease without esophagitis; Essential hypertension Start: 09-10-2024 End: 09-10-2024 Refill Bong Yee ASSISTANT SHIFT SUPERVISOR-CUSTOMS ENTRY WRITER Work Phone: [facility] Comment on above: Medication refill Start: 08-10-2024 End: 08-10-2024 Refill Bong Yee ASSISTANT SHIFT SUPERVISOR-CUSTOMS ENTRY WRITER Work Phone: [facility] Comment on above: Medication refill Start: 08-08-2024 End: 08-08-2024 Orders Only Bong Yee ASSISTANT SHIFT SUPERVISOR-CUSTOMS ENTRY WRITER [facility] Comment on above: Systemic lupus eryth ematosus, unspecified SLE type, unspecified organ involvement status ([facility]) Start: 07-22-2024 End: 07-22-2024 Orders Only Bong Yee ASSISTANT SHIFT SUPERVISOR-CUSTOMS ENTRY WRITER Work Phone: [facility] Comment on above: Dysuria (Primary Dx) ; Urinary urgency Possible exposure to STI (Primary Dx) Start: 07-21-2024 ambulatory [facility] Start: 07-18-2024 End: 07-18-2024 ambulatory [facility] Start: 07-18-2024 End: 07-18-2024 Office outpatient visit 25 minutes Bong Zhane ASSISTANT SHIFT SUPERVISOR-CUSTOMS ENTRY WRITER Work Phone: [facility] Comment on above: Preventative health care (Primary Dx); Fall, initial encounter; Acute pain of left knee; Flank pain; Urinary frequency; Vitamin D deficiency; SOPHIE (obstructive sleep apnea); Morbid obesity with BMI of 50.0-59.9, adult ([facility] Prediabetes Start: 07-18-2024 End: 07-18-2024 Patient encounter status Bong Dallas ASSISTANT SHIFT SUPERVISOR-CUSTOMS ENTRY WRITER Work Phone: [facility] Start: 07-07-2024 End: 07-07-2024 Telephone encounter Myrtle Mckeon MA [facility] Start: 06-09-2024 End: 06-10-2024 Refill Bong Dallas ASSISTANT SHIFT SUPERVISOR-CUSTOMS ENTRY WRITER [facility] Internal Medicine Comment on above: Systemic lupus eryth ematosus, unspecified SLE type, unspecified organ involvement status ([facility] Abscess; Gastroesophageal reflux disease without esophagitis; Medication refill Start: 06-02-2024 End: 06-02-2024 Refill Bong Dallas ASSISTANT SHIFT SUPERVISOR-CUSTOMS ENTRY WRITER Work Phone: [facility] Start: 04-22-2024 End: 04-22-2024 Refill Bong Zhane ASSISTANT SHIFT SUPERVISOR-CUSTOMS ENTRY WRITER Work Phone: [facility] Start: 04-14-2024 End: 04-14-2024 Orders Only Bong Zhane ASSISTANT SHIFT SUPERVISOR-CUSTOMS ENTRY WRITER Work Phone: [facility] Comment on above: Spondylosis without myelopathy or radiculopathy, lumbosacral region (Primary Dx) Start: 04-14-2024 End: 04-14-2024 Refill Bong Zhane ASSISTANT SHIFT SUPERVISOR-CUSTOMS ENTRY WRITER Work Phone: [facility] Comment on above: Medication refill Start: 03-20-2024 End: 03-20-[facility]24 [facility] Start: 03-18-2024 End: 03-18-2024 Refill Bong Yee ASSISTANT SHIFT SUPERVISOR-CUSTOMS ENTRY WRITER Work Phone: [facility] Internal Medicine Comment on above: Gastroesophageal ref lux disease without esophagitis Start: 03-14-2024 End: 03-14-2024 Orders Only Bong Yee ASSISTANT SHIFT SUPERVISOR-CUSTOMS ENTRY WRITER Work Phone: [facility] Internal Medicine Comment on above: Lumbosacral spondylo sis without myelopathy; Primary osteoarthritis of left knee Start: 03-03-2024 End: 03-03-2024 Refill Bong Yee ASSISTANT SHIFT SUPERVISOR-CUSTOMS ENTRY WRITER Work Phone: [facility] Start: 02-22-2024 End: 02-22-2024 ambulatory [facility] Start: 02-22-2024 End: 02-22-2024 [facility] Start: 02-22-2024 End: 02-22-2024 Office outpatient visit 25 minutes Bong Yee ASSISTANT SHIFT SUPERVISOR-CUSTOMS ENTRY WRITER Work Phone: [facility] Internal Medicine Comment on above: Abscess (Primary Dx) ; Preventative health care; Lumbosacral spondylosis without myelopathy; Acute cystitis without hematuria; Encounter for screening mammogram for malignant neoplasm of breast; Screen for colon cancer; Primary osteoarthritis of left knee; Prediabetes; Essential hypertension; BMI 50.0-59.9, adult ([facility]) Start: 02-22-2024 End: 02-22-2024 Patient encounter status Bong Yee ASSISTANT SHIFT SUPERVISOR-CUSTOMS ENTRY WRITER Work Phone: [facility] Start: 02-22-2024 End: 02-22-2024 ambulatory [facility] Start: 02-22-2024 Encounter for genera l adult medical examination without abnormal findings [facility] Start: 02-12-2024 End: 02-12-2024 Orders Only Elke Andion ASSISTANT SHIFT SUPERVISOR-CUSTOMS ENTRY WRITER Work Phone: [facility] Start: 02-11-2024 End: 02-11-2024 [...] Result Encounter Raman Miguel DO Work Phone: [facility] External Department Unsolicited Start: 02-11-2024 End: 02-25-2024 [facility] Start: 02-04-2024 End: 02-04-2024 Bamboo flowsheet Ainsley ELDRIDGE Work Phone: [facility] Start: 02-04-2024 End: 02-04-2024 Bamboo flowsheet Ainsley ELDRIDGE Work Phone: [facility] Start: 02-04-2024 End: 02-04-2024 ambulatory AINSLEY DON Not Available Start: 02-04-2024 End: 02-04-2024 Office outpatient visit 15 minutes Ainsley ELDRIDGE Work Phone: [facility] Comment on above: Encounter for weight loss counseling Start: 02-01-2024 End: 02-01-2024 Telephone encounter Lalo Patiño CMA [facility] Start: 01-30-2024 End: 01-30-2024 Office outpatient visit 25 minutes Bong Yee ASSISTANT SHIFT SUPERVISOR-CUSTOMS ENTRY WRITER Work Phone: [facility] Comment on above: Other migraine witho ut status migrainosus, not intractable (Primary Dx); Muscle spasm; Primary osteoarthritis of left knee Start: 01-30-2024 End: 01-30-2024 ambulatory [facility] Start: 01-29-2024 End: 01-29-2024 ambulatory EQUALITY Maida MOREIRA [facility] Start: 01-29-2024 End: 01-29-2024 Office outpatient visit 15 minutes Jordyn Moreira MD Work Phone: [facility] Comment on above: Essential hypertensi on (Primary Dx) Start: 01-28-2024 End: 01-28-2024 Telephone encounter Antoinette Syed CMA [facility] Card[facility] Start: 01-25-2024 End: 01-25-2024 ambulatory [facility] Start: 01-17-2024 End: 01-17-2024 Telephone encounter Elke CHILDERS [facility] Pulmonary[facility]Sleep Medicine Start: 01-14-2024 End: 01-14-2024 ambulatory [facility] Start: 01-11-2024 End: 01-11-2024 ambulatory [facility] Start: 01-10-2024 End: 01-10-2024 ambulatory [facility] Start: 01-10-2024 End: 01-10-2024 Office outpatient visit 25 minutes Neena Del Castillo DO Work Phone: [facility] Comment on above: Mild intermittent as thma without complication (Primary Dx); Other acute pulmonary embolism, unspecified whether acute cor pulmonale present (CMS-HCC); Right lower lobe lung mass; Pulmonary hypertension (CMS-HCC) Start: 01-07-2024 End: 01-07-2024 ambulatory BOBBI Oziel ORTIZ [facility] Start: 01-07-2024 End: 01-07-2024 Office outpatient visit 25 minutes Bobbi Ortiz MD Work Phone: [facility] Comment on above: Acute pulmonary embo lism with acute cor pulmonale, unspecified pulmonary embolism type ([facility]) (Primary Dx) Start: 12-26-2023 End: 12-26-2023 Orders Only Bong Yee ASSISTANT SHIFT SUPERVISOR-CUSTOMS ENTRY WRITER Work Phone: [facility] Comment on above: Primary osteoarthrit is of left knee Start: 12-22-2023 End: 12-22-2023 Refill Bong Yee ASSISTANT SHIFT SUPERVISOR-CUSTOMS ENTRY WRITER Work Phone: [facility] Comment on above: Gastroesophageal ref lux disease without esophagitis Start: 12-21-2023 End: 12-21-2023 Orders Only Bong Yee ASSISTANT SHIFT SUPERVISOR-CUSTOMS ENTRY WRITER Work Phone: [facility] Comment on above: Primary osteoarthrit is of left knee (Primary Dx) Start: 12-19-2023 End: 12-19-2023 ambulatory [facility] Start: 12-19-2023 End: 12-19-2023 Transitional care manage srvc 7 day discharge Bong Yee ASSISTANT SHIFT SUPERVISOR-CUSTOMS ENTRY WRITER Work Phone: [facility] Internal Medicine Comment on above: Other acute pulmonar y embolism, unspecified whether acute cor pulmonale present ([facility]) (Primary Dx) Start: 12-18-2023 End: 12-18-2023 ambulatory [facility] Start: 12-17-2023 End: 10-07-2024 Telephone encounter Dayanna Mojica RN [facility] Internal [facility] Comment on above: Transition Of Care Start: 12-14-2023 End: 12-14-2023 Telephone encounter Kathy Cabrera [facility] Justino dunn Comment on above: medication order Start: 12-13-2023 End: 12-13-2023 Telephone encounter Sarah Ventura RN Work Phone: [facility] Start: 12-13-2023 End: 12-14-2023 Evaluation and management of inpatient LUDWIN [facility] Start: 12-12-2023 End: 12-13-2023 Emergency department patient visit [facility] Start: 12-10-2023 End: 12-25-2023 Telephone encounter [facility] Comment on above: Transition Of Care Start: 12-10-2023 End: 12-10-2023 ambulatory CHITO TORO [facility] Start: 12-07-2023 End: 12-07-2023 Telephone encounter Linda Hernandez [facility] Call Tiffanie dunn Comment on above: Blood Clot(s) Start: 12-07-2023 End: 12-09-2023 Evaluation and management of inpatient SIMONA LOGAN [facility] Start: 12-06-2023 End: 12-07-2023 Emergency department patient visit [facility] Start: 12-06-2023 End: 12-06-[address] [facility] Start: 12-05-2023 ambulatory [facility] Start: 11-19-2023 End: 11-19-2023 ambulatory [facility] Start: 11-14-2023 Non-patient / Non-visit ASSISTANT SHIFT SUPERVISOR Maida llanos Anglim Work Phone: [facility] Work Phone: Start: 11-07-2023 Non-patient / Non-visit ASSISTANT SHIFT SUPERVISOR Maida blackmana Anglim Work Phone: [facility] Work Phone: Start: 11-06-2023 End: 11-16-2023 Evaluation and management of inpatient ASSISTANT SHIFT SUPERVISOR Jordyn Anglim Work Phone: [facility] Work Phone: Start: 10-31-2023 Evaluation and manag ement of inpatient [facility] Start: 10-31-2023 ambulatory [facility] Start: 10-31-2023 End: 11-06-2023 Evaluation and management of inpatient [facility] Start: 10-30-2023 End: 10-30-2023 ambulatory [facility] Bryan BOURGEOIS [facility] Start: 10-30-2023 End: 10-30-2023 Office outpatient visit 25 minutes Gina Rushelton ASSISTANT SHIFT SUPERVISOR-CUSTOMS ENTRY WRITER Work Phone: [facility] Comment on above: Disc displacement, l umbar (Primary Dx); Chronic bilateral low back pain, unspecified whether sciatica present Start: 10-22-2023 Encounter for other preprocedural examination [facility] Start: 10-22-2023 End: 10-22-2023 ambulatory [facility] Comment on above: Lumbosacral spondylo sis without myelopathy (Primary Dx) Start: 10-01-2023 End: 10-01-2023 Orders Only Bong Yee ASSISTANT SHIFT SUPERVISOR-CUSTOMS ENTRY WRITER Work Phone: [facility] Internal Medicine Comment on above: Primary osteoarthrit is of left knee (Primary Dx) Start: 09-28-2023 End: 09-28-2023 Orders Only Bong Yee ASSISTANT SHIFT SUPERVISOR-CUSTOMS ENTRY WRITER Work Phone: [facility] Internal Medicine Comment on above: Primary osteoarthrit is of left knee (Primary Dx) Start: 09-27-2023 End: 09-27-2023 Office outpatient visit 25 minutes Jordyn Moreira MD Work Phone: [facility] Card[facility] Comment on above: Pre-operative cleara nce (Primary Dx); Abnormal EKG; Pre-operative cardiovascular examination; Essential hypertension Start: 09-27-2023 End: 09-27-2023 Preoperative state Jordyn Moreira MD Work Phone: [facility] Start: 09-27-2023 End: 01-29-2024 Patient encounter status Jordyn Moreira MD Work Phone: [facility] Start: 09-27-2023 End: 09-27-2023 Refill Bong Zhane ASSISTANT SHIFT SUPERVISOR-CUSTOMS ENTRY WRITER Work Phone: [facility] Internal [facility] Comment on above: Essential hypertensi on Start: 09-26-2023 End: 09-26-2023 [facility]phone [facility] Start: 09-12-2023 End: 09-12-2023 Orders Only Bong Dallas ASSISTANT SHIFT SUPERVISOR-CUSTOMS ENTRY WRITER [facility] Phone[facility] Comment on above: Systemic lupus eryth ematosus, unspecified SLE type, unspecified organ involvement status ([facility]) (Primary Dx) Start: 09-10-2023 End: 09-12-2023 Refill Bong Zhane ASSISTANT SHIFT SUPERVISOR-CUSTOMS ENTRY WRITER Work Phone: [facility] Comment on above: Other forms of syste alesha lupus erythematosus, unspecified organ involvement status ([facility]) Start: 08-21-2023 End: 08-21-2023 Orders Only Bong Dallas ASSISTANT SHIFT SUPERVISOR-CUSTOMS ENTRY WRITER Work Phone: [facility] Comment on above: Pre-operative cleara nce (Primary Dx); Abnormal EKG Start: 08-21-2023 End: 08-21-2023 Preoperative state Bong Dallas ASSISTANT SHIFT SUPERVISOR-CUSTOMS ENTRY WRITER Work Phone: [employer] Work Phone: Start: 08-18-2023 End: 08-18-2023 Orders Only Bong Zhane ASSISTANT SHIFT SUPERVISOR-CUSTOMS ENTRY WRITER Work Phone: [facility] Comment on above: 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) Start: 08-16-2023 End: 08-16-2023 ambulatory RAMAN MIGUEL Not Available Start: 08-16-2023 End: 08-16-2023 Office outpatient visit 25 minutes Bong Dallas ASSISTANT SHIFT SUPERVISOR-CUSTOMS ENTRY WRITER Work Phone: [facility] Comment on above: Pre-diabetes (Primar y Dx); Urinary frequency; Preventative health care; Reactive depression; Other migraine without status migrainosus, not intractable; BV (bacterial vaginosis) Start: 08-16-2023 End: 08-16-2023 Patient encounter status Bong Yee ASSISTANT SHIFT SUPERVISOR-CUSTOMS ENTRY WRITER Work Phone: [facility] Start: 08-14-2023 End: 08-14-2023 Refill Bong Yee ASSISTANT SHIFT SUPERVISOR-CUSTOMS ENTRY WRITER Work Phone: [facility] Comment on above: Pre-diabetes Systemic lupus eryth ematosus, unspecified SLE type, unspecified organ involvement status ([facility]) Start: 08-11-2023 End: 08-11-2023 Orders Only Bong Yee ASSISTANT SHIFT SUPERVISOR-CUSTOMS ENTRY WRITER Work Phone: [facility] Comment on above: Other forms of syste alesha lupus erythematosus, unspecified organ involvement status ([facility]) Start: 08-08-2023 End: 08-08-2023 Orders Only Bong Yee ASSISTANT SHIFT SUPERVISOR-CUSTOMS ENTRY WRITER Work Phone: [facility] Start: 08-07-2023 End: 08-07-2023 ambulatory RAMAN MOLINAZIO Not Available Start: 08-02-2023 End: 08-02-2023 Office outpatient new 20 minutes Michael Stephens MD Work Phone: [facility] Comment on above: Primary osteoarthrit is of left knee (Primary Dx) Start: 07-23-2023 End: 07-23-2023 ambulatory LYSSA PARK [facility] Comment on above: Primary osteoarthrit is of left knee (Primary Dx) Start: 07-18-2023 End: 07-18-2023 ambulatory AINSLEY DON [facility] Comment on above: Systemic lupus eryth ematosus, unspecified SLE type, unspecified organ involvement status ([facility]) (Primary Dx); Primary osteoarthritis of left knee; Spondylosis without myelopathy or radiculopathy, lumbar region; Spondylosis without myelopathy or radiculopathy, lumbosacral region Other forms of syste alesha lupus erythematosus, unspecified organ involvement status ([facility]) Start: 07-12-2023 End: 07-12-2023 Office outpatient visit 15 minutes Cynthia Wilcox ASSISTANT SHIFT SUPERVISOR-CUSTOMS ENTRY WRITER Work Phone: [facility] Comment on above: Acute cystitis witho ut hematuria (Primary Dx) Start: 07-11-2023 End: 07-11-2023 Orders Only Bong Dallas ASSISTANT SHIFT SUPERVISOR-CUSTOMS ENTRY WRITER Work Phone: [facility] Start: 07-08-2023 End: 07-08-2023 Refill Bong Zhane ASSISTANT SHIFT SUPERVISOR-CUSTOMS ENTRY WRITER Work Phone: [facility] Comment on above: Systemic lupus eryth ematosus, unspecified SLE type, unspecified organ involvement status ([facility]) Start: 07-04-2023 End: 07-04-2023 Refill Bong Dallas ASSISTANT SHIFT SUPERVISOR-CUSTOMS ENTRY WRITER Work Phone: [facility] Comment on above: Pre-diabetes Start: 06-28-2023 End: 06-29-2023 Telephone encounter Tahmina Schultea [facility] Comment on above: Medication issue Start: 06-18-2023 Orders Only Bong Stevenwr ight ASSISTANT SHIFT SUPERVISOR-CUSTOMS ENTRY WRITER Work Phone: [facility] Start: 06-11-2023 Orders Only Bong Cartwr ight ASSISTANT SHIFT SUPERVISOR-CUSTOMS ENTRY WRITER Work Phone: [facility] Comment on above: Other forms of syste alesha lupus erythematosus, unspecified organ involvement status ([facility]) Pre-diabetes (Primar y Dx) Start: 06-01-2023 Refill Bong Cartwr ight ASSISTANT SHIFT SUPERVISOR-CUSTOMS ENTRY WRITER Work Phone: [facility] Comment on above: Gastroesophageal ref lux disease without esophagitis Start: 05-24-2023 Orders Only Bong Cartwr ight ASSISTANT SHIFT SUPERVISOR-CUSTOMS ENTRY WRITER Work Phone: [facility] Comment on above: Chronic pain of left knee (Primary Dx); Arthritis of left knee Start: 05-21-2023 Refill Barak Sandhu ELAN bro [facility] Start: 05-17-2023 Refill [facility] Comment on above: Gastroesophageal ref lux disease without esophagitis Start: 05-15-2023 Refill Bong Harriswr ight ASSISTANT SHIFT SUPERVISOR-CUSTOMS ENTRY WRITER Work Phone: [facility] Comment on above: Pre-diabetes Start: 05-07-2023 Refill Bong Cartwr ight ASSISTANT SHIFT SUPERVISOR-CUSTOMS ENTRY WRITER Work Phone: [facility] Comment on above: Medication refill Systemic lupus eryth ematosus, unspecified SLE type, unspecified organ involvement status ([facility]) Start: 05-04-2023 Orders Only Bong Harriswr ight ASSISTANT SHIFT SUPERVISOR-CUSTOMS ENTRY WRITER Work Phone: [facility] Comment on above: Hepatic steatosis (P rimary Dx) Epigastric pain ([place] velia Dx); Hepatic steatosis; Other forms of systemic lupus erythematosus, unspecified organ involvement status ([facility]) Start: 05-01-2023 Orders Only Bong Leach ight ASSISTANT SHIFT SUPERVISOR-CUSTOMS ENTRY WRITER Work Phone: [facility] Start: 04-30-2023 Orders Only Bong Harriswr ight ASSISTANT SHIFT SUPERVISOR-CUSTOMS ENTRY WRITER Work Phone: [facility] Comment on above: Acute cystitis witho ut hematuria (Primary Dx) Start: 04-30-2023 End: 04-30-2023 Office outpatient visit 25 minutes Darlin Wilkerson MD Work Phone: [facility] Comment on above: Lupus ([facility]) (Ves[place] velia Dx); Lumbosacral spondylosis without myelopathy; Class 3 severe obesity due to excess calories without serious comorbidity with body mass index (BMI) of 50.0 to 59.9 in adult ([facility]); Primary osteoarthritis of left knee; Medication monitoring encounter Start: 04-24-2023 Orders Only Bong Harriswr ight ASSISTANT SHIFT SUPERVISOR-CUSTOMS ENTRY WRITER Work Phone[facility] Comment on above: Acute cystitis witho ut hematuria (Primary Dx) Start: 04-06-2023 Telephone encounter Judy Dumas COOKY PACKER [facility] Comment on above: Xray result Qulipta samples Start: 04-06-2023 End: 04-06-2023 Office outpatient visit 15 minutes Bong Leachight ASSISTANT SHIFT SUPERVISOR-CUSTOMS ENTRY WRITER Work Phone: [facility] Comment on above: Gastroesophageal ref lux disease without esophagitis (Primary Dx); Urinary frequency; Chest discomfort; Pre-diabetes Start: 03-21-2023 Orders Only Bong Stevenwr ight ASSISTANT SHIFT SUPERVISOR-CUSTOMS ENTRY WRITER Work Phone: [facility] Comment on above: Other forms of syste alesha lupus erythematosus, unspecified organ involvement status ([facility]) Start: 03-09-2023 Refill Xochitl Muir [facility] Comment on above: Pre-diabetes Start: 03-08-2023 Orders Only Bong Harriswr ight ASSISTANT SHIFT SUPERVISOR-CUSTOMS ENTRY WRITER Work Phone: [facility] Comment on above: Other forms of syste alesha lupus erythematosus, unspecified organ involvement status ([facility]) (Primary Dx); Pre-diabetes Start: 03-02-2023 Orders Only Bongbridget Harriswr ight ASSISTANT SHIFT SUPERVISOR-CUSTOMS ENTRY WRITER Work Phone: [facility] Comment on above: Pre-diabetes (Primar y Dx) Start: 03-01-2023 End: 03-01-2023 Office outpatient visit 10 minutes Bong Leachight ASSISTANT SHIFT SUPERVISOR-CUSTOMS ENTRY WRITER Work Phone: [facility] Comment on above: Pre-diabetes (Primar y Dx) Start: 11-10-2022 End: 11-11-2022 ambulatory LEDGER POSTER Silvia Sherman Facility:[facility] [place] Start: 10-24-2022 End: 10-25-2022 ambulatory Velia LUND Facility:[facility] Start: 06-29-2022 End: 06-29-2022 ambulatory Lynda Pena Other [employer] Other Start: 06-29-2022 Telephone encounter Lynda Pena [facility] [address] Start: 06-28-2022 End: 06-28-2022 ambulatory Shilpi Nguyen Other [employer] Other Start: 06-28-2022 Telephone encounter Shilpi Cedillo [facility] Start: 02-07-2022 End: 02-07-2022 ambulatory Alesha Watkins Other [employer] Other Start: 02-07-2022 Office outpatient vi sit 15 minutes Alesha Watkins [facility] Start: 02-09-2021 End: 02-10-2021 ambulatory LYSSA PARK Facility:[facility] Start: 03-04-2018 End: 03-05-2018 Patient encounter procedure SALLY BELLEROSE Facility: Procedures Date Procedure Procedure Detail Performing Clinician Start: 03-20-2024 Mammography Bong conleywright ASSISTANT SHIFT SUPERVISOR-[employer] Work Phone: Start: 02-22-2024 Adult depression scr eening assessment Bong Yee ASSISTANT SHIFT SUPERVISOR-[employer] Work Phone: Start: 02-11-2024 PAP IG, APT HPV RFX 16/18,45 Raman [employer]ullenCele[employer] Work Phone: Start: 02-11-2024 Microscopic observat ion [Identifier] in Cervix by Cyto stain Raman Rivera DO Work Phone: Start: 01-29-2024 Follow-up visit Follow-up JORDYN MOREIRA Start: 01-07-2024 Follow-up visit Follow-up BOBBI ORTIZ Start: 12-19-2023 Adult depression scr eening assessment Bong Yee ASSISTANT SHIFT SUPERVISOR-CUSTOMS ENTRY WRITER Work Phone: Start: 12-13-2023 Adult depression scr eening assessment Kathy Cabrera Start: 12-07-2023 Adult depression scr eening assessment Sarah Ventura RN Work Phone: Start: 11-07-2023 X-ray of left knee YULISA Barrera Work Phone: Start: 09-27-2023 Ecg routine ecg w/le ast 12 lds w/i&r Jordyn Moreira MD Work Phone: Start: 08-21-2023 Urnls dip stick/tabl et rgnt non-auto w/o micrscp Bong Yee ASSISTANT SHIFT SUPERVISOR-CUSTOMS ENTRY WRITER Work Phone: Start: 08-16-2023 Hemoglobin glycosyla olga lidia a1c Bong Yee ASSISTANT SHIFT SUPERVISOR-CUSTOMS ENTRY WRITER Work Phone: Start: 07-18-2023 Microscopic observat ion [Identifier] in Cervix by Cyto stain Ainsley ELDRIDGE Work Phone: Start: 11-02-2022 Adult depression scr eening assessment Bong Yee ASSISTANT SHIFT SUPERVISOR-CUSTOMS ENTRY WRITER Work Phone: Start: 01-18-2021 Antibody screen LYSSA MACEDOPAMThom Comment on above: Performed By: #### [id number] #### [address] Start: 06-22-2017 Mammography Ainsley ELDRIDGE Work Phone: Plan of Treatment Date Care Activity Detail Author Start: 05-05-2029 DTaP,Tdap and Td Vaccines (3 - Td or Tdap) DTaP,Tdap and Td Vaccines (3 - Td or Tdap) [facility] Start: 05-05-2029 DTaP,Tdap and Td Vaccines (4 - Td or Tdap) DTaP,Tdap and Td Vaccines (4 - Td or Tdap) [facility] Start: 03-11-2027 Screening for malignant neoplasm of colon [facility] Start: 02-10-2027 Screening for malignant neoplasm of cervix [facility] Start: 07-17-2026 Screening for malignant neoplasm of cervix [facility] Start: 11-05-2025 Adult BMI Screening Adult BMI Screening [facility] Start: 11-05-2025 Tobacco Screening Tobacco Screening [facility] Start: 07-18-2025 Adult BMI Screening Adult BMI Screening [facility] Start: 07-18-2025 Tobacco Screening Tobacco Screening [facility] Start: 03-20-2025 Screening for malignant neoplasm of breast Mammogram [facility] Start: 02-21-2025 Adult BMI Screening Adult BMI Screening [facility] Start: 02-21-2025 Depression Screening Depression Screening [facility] Start: 02-21-2025 Tobacco Screening Tobacco Screening [facility] Start: 01-29-2025 Tobacco Screening Tobacco Screening [facility] Start: 01-28-2025 Adult BMI Screening Adult BMI Screening [facility] Start: 01-27-2025 End: 01-27-2025 Patient encounter procedure 01/27/2025 3:00 PM EST Office Visit [facility] [address] [place] [phone] Bong Yee, ASSISTANT SHIFT SUPERVISOR-CUSTOMS ENTRY WRITER [address] [place] [address] [facility] Start: 01-22-2025 Adult BMI Screening Adult BMI Screening [facility] Start: 01-09-2025 Adult BMI Screening Adult BMI Screening [facility] Start: 01-09-2025 Tobacco Screening Tobacco Screening [facility] Start: 12-18-2024 Adult BMI Screening Adult BMI Screening [facility] Start: 12-18-2024 Depression Screening Depression Screening [facility] Start: 12-18-2024 Tobacco Screening Tobacco Screening [facility] Start: 12-12-2024 Adult BMI Screening Adult BMI Screening [facility] Start: 12-12-2024 Depression Screening Depression Screening [facility] Start: 12-12-2024 Tobacco Screening Tobacco Screening [facility] Start: 12-06-2024 Depression Screening Depression Screening [facility] Start: 12-06-2024 Tobacco Screening Tobacco Screening [facility] Start: 12-05-2024 Adult BMI Screening Adult BMI Screening [facility] Start: 12-05-2024 Tobacco Screening Tobacco Screening [facility] Start: 11-18-2024 End: 11-18-2024 Patient encounter procedure 11/18/2024 3:00 PM EDT Office Visit [facility] [address] [place] [address] Ainsley Don PA [address] [place], [place] [id number] [facility] Start: 11-10-2024 COVID-19 Vaccine ( season) COVID-19 Vaccine () [facility] Start: 11-10-2024 Influenza vaccination [facility] Start: 10-29-2024 Adult BMI Screening Adult BMI Screening [facility] Start: 10-29-2024 Tobacco Screening Tobacco Screening [facility] Start: 10-17-2024 End: 10-17-2024 Patient encounter procedure 10/17/2024 2:00 PM EDT Office Visit [facility] [address] [place] [address] Bong Yee APRN-CUSTOMS ENTRY WRITER [address] [place] [phone] [facility] Start: 09-26-2024 Adult BMI Screening Adult BMI Screening [facility] Start: 09-26-2024 Tobacco Screening Tobacco Screening [facility] Start: 08-20-2024 End: 08-20-2024 Patient encounter procedure 08/20/2024 1:00 PM EDT Procedure Visit [facility] [address] [place] [address] Raman Rivera DO [address] [place], [place] [phone] [facility] Start: 08-15-2024 Adult BMI Screening Adult BMI Screening [facility] Start: 08-15-2024 Tobacco Screening Tobacco Screening [facility] Start: 08-01-2024 Adult BMI Screening Adult BMI Screening [facility] Start: 08-01-2024 Tobacco Screening Tobacco Screening [facility] Start: 07-28-2024 End: 07-28-2024 Patient encounter procedure 07/28/2024 11:00 AM EDT Office Visit [facility] [address] [place] [address] Raman Rivera DO [address] [place] [address] [facility] Start: 07-22-2024 End: 07-22-2024 Patient encounter procedure 07/22/2024 3:30 PM EDT Appointment [facility] - CT Imaging [address] [place] [address] Bong Yee, ASSISTANT SHIFT SUPERVISOR-CUSTOMS ENTRY WRITER [address], [facility] [address] [place] [phone] [facility] - CT Imaging Start: 07-18-2024 End: 07-18-2024 Patient encounter procedure 07/18/2024 2:45 PM EDT Office Visit [facility] [address] [facility] [address] [place] [address] Bong Yee APRN-CUSTOMS ENTRY WRITER [address] [facility] [address] [place] [phone] [facility] Start: 07-18-2024 End: 07-18-2025 CT Head WO contrast CT brain without contrast Imaging STAT Fall, initial encounter Expected: 07/18/2024, Expires: 07/18/2025 [facility] Work Phone: Comment on above: Expected: 07/18/2024, Expires: Start: 07-11-2024 Tobacco Screening Tobacco Screening [facility] Start: 07-07-2024 End: 07-07-2024 Patient encounter procedure [facility] Start: 04-18-2024 End: 04-18-2024 Patient encounter procedure 04/18/2024 2:00 PM EST Office Visit [facility] [address] [facility] [address] [place] [phone] Bong Yee, ASSISTANT SHIFT SUPERVISOR-CUSTOMS ENTRY WRITER [address] [place] [phone] [facility] Start: 04-10-2024 End: 04-10-2024 Patient encounter procedure 04/10/2024 3:30 PM EST Office Visit [facility] [address] [place] [place] [address] Neena Del Castillo, DO [address] [address] [facility] Start: 04-06-2024 Tobacco Screening Tobacco Screening [facility] Start: 03-20-2024 End: 03-20-2024 Patient encounter procedure [facility] - Cardiovascular Start: 03-13-2024 End: 03-13-2024 Patient encounter procedure 03/13/2024 3:15 PM EST Appointment [facility] - Mammography/DEXA Imaging [address] [place] [address] [facility] - Mammography/DEXA Imaging Start: 03-07-2024 End: 03-07-2024 Patient encounter procedure 03/07/2024 2:00 PM EST Appointment [facility] [address] [place] [address] Neena Del Castillo, DO [address] [address] [facility] Start: 03-01-2024 Tobacco Screening Tobacco Screening [facility] Start: 02-22-2024 End: 02-21-2025 DBT Breast - bilateral screening Mammography screening bilateral with CAD Imaging Routine Encounter for screening mammogram for malignant neoplasm of breast Expected: 02/22/2024, Expires: 02/21/2025 [facility] Comment on above: Expected: 02/22/2024, Expires: Start: 02-15-2024 End: 02-15-2024 Patient encounter procedure 02/15/2024 9:30 AM EST Appointment [facility] [address] [place] [address] Neena Del Castillo, DO [address] [address] [facility] Start: 02-11-2024 End: 02-11-2024 Patient encounter procedure 02/11/2024 2:20 PM EST Procedure Visit [facility] [address] [place] [phone] Raman Rivera [address] [facility] [place] [address] [facility] Start: 02-09-2024 End: 01-09-2025 Echo complete W/O contrast Echo complete W/O contrast Echocardiography Routine Other acute pulmonary embolism, unspecified whether acute cor pulmonale present (CMS-HCC) Pulmonary hypertension (CMS-HCC) Expected: 02/09/2024 (Approximate), Expires: 01/09/2025 [facility] [employer] Work Phone: Comment on above: Expected: 02/09/2024 (Approximate), Expi res: 01/09/2025 Start: 01-29-2024 End: 01-29-2024 Patient encounter procedure 01/29/2024 3:15 PM EST Office Visit [facility] [address] [place] [phone] Jordyn Moreira MD [address] [place], [place] [phone] [facility] Start: 01-11-2024 End: 01-11-2024 Telemedicine consultation with patient 01/11/2024 2:00 PM EDT Telemedicine [facility] [address] [facility] [address] [place] [address] Bong Yee, ASSISTANT SHIFT SUPERVISOR-CUSTOMS ENTRY WRITER [address] [facility] [address] [place] [address] [facility] Start: 01-10-2024 End: 01-09-2025 PT Skull base to mid-thigh PET CT skull to thigh Imaging Routine Right lower lobe lung mass Expected: 01/10/2024, Expires: 01/09/2025 [facility] Comment on above: Expected: 01/10/2024, Expires: Start: 01-10-2024 End: 01-10-2024 Patient encounter procedure 01/10/2024 9:45 AM EDT Office Visit [facility] [address] [place] [address] Neena Del Castillo, [address] [place] [phone] [facility] Start: 01-07-2024 End: 01-07-2024 Patient encounter procedure 01/07/2024 9:15 AM EDT [facility] [place] [place] [address] Bobbi Ortiz MD [address] [facility] [address] [place] [address] [facility] Start: 12-19-2023 End: 12-19-2023 Patient encounter procedure 12/19/2023 10:15 AM EDT [facility] [address] [place] [address] Bong Yee, ASSISTANT SHIFT SUPERVISOR-CUSTOMS ENTRY WRITER [address] [place] [address] [facility] Start: 12-11-2023 End: 12-11-2023 Patient encounter procedure 12/11/2023 1:15 PM EDT Office Visit [facility] - [facility] Management Clinic [address] [place] [address] Gina Bourgeois, ASSISTANT SHIFT SUPERVISOR-CUSTOMS ENTRY WRITER [address] [place] [address] [facility] Start: 12-07-2023 Adult BMI Screening Adult BMI Screening [facility] Start: 11-16-2023 [facility] Start: 11-11-2023 COVID-19 Vaccine ( season) COVID-19 Vaccine ( season) [facility] Start: 11-11-2023 COVID-19 Vaccine ( season) COVID-19 Vaccine ( season) [facility] Start: 11-11-2023 Influenza vaccination [facility] Start: 11-06-2023 Hospital admission [facility] Start: 11-03-2023 Depression Screening Depression Screening [facility] Start: 10-30-2023 End: 10-29-2024 MR Lumbar spine WO contrast MR lumbar spine without contrast Imaging Routine Chronic bilateral low back pain, unspecified whether sciatica present Expected: 10/30/2023, Expires: 10/29/2024 [facility] Comment on above: Expected: 10/30/2023, Expires: Start: 10-30-2023 End: 10-30-2023 Patient encounter procedure 10/30/2023 10:30 AM EDT Office Visit [facility] [address] [place] [phone] Gina Bourgeois, ASSISTANT SHIFT SUPERVISOR-CUSTOMS ENTRY WRITER [address] [place] [address] [facility] Start: 10-04-2023 End: 09-26-2024 Basic metabolic 2000 panel - Serum or Plasma Basic Metabolic Panel Lab Routine Essential hypertension Expected: 10/04/2023 (Approximate), Expires: 09/26/2024 [facility] Work Phone: Comment on above: Expected: 10/04/2023 (Approximate), Expi res: 09/26/2024 Start: 09-27-2023 End: 09-27-2023 Patient encounter procedure 09/27/2023 3:30 PM EDT Office [facility] [address] [facility] [address] [place] [address] Jordyn Moreira MD [address] [place] [address] [facility] Start: 09-17-2023 End: 09-17-2023 Telemedicine consultation with patient 09/17/2023 2:00 PM EDT Telemedicine [facility] [address] [place] [address] Bong Yee ASSISTANT SHIFT SUPERVISOR-CUSTOMS ENTRY WRITER [address] [place] [address] [facility] Start: 09-02-2023 Administration of varicella zoster vaccine Zoster (Shingles) Vaccine (1 of 2) [facility] Start: 08-16-2023 End: 08-16-2023 Patient encounter procedure 08/16/2023 2:00 PM EDT Office Visit [facility] [address] [place] [address] Bong Yee ASSISTANT SHIFT SUPERVISOR-CUSTOMS ENTRY WRITER [address] [place] [phone] [facility] Start: 08-02-2023 End: 08-02-2023 Patient encounter procedure 08/02/2023 9:30 AM EDT Office Visit [facility] [address] [place] [address] Michael Stephens MD [address] [place] [address] [facility] Start: 07-30-2023 End: 07-22-2024 XR Knee - left 4 Views X-ray knee left minimum 4 views Imaging Routine Primary osteoarthritis of left knee Expected: 07/30/2023, Expires: 07/22/2024 [facility] Work Phone: Comment on above: Expected: 07/30/2023, Expires: Start: 07-12-2023 End: 07-12-2023 Telemedicine consultation with patient 07/12/2023 10:45 AM EDT Telemedicine [facility] [address] [place] [phone] Cynthia Wilcox, ASSISTANT SHIFT SUPERVISOR-CUSTOMS ENTRY WRITER [address] [place] [address] [facility] Start: 05-24-2023 End: [...] Phone: Comment on above: Expected: 05/01/2023, Expires: Start: 04-30-2023 End: 04-30-2023 Telemedicine consultation with patient 04/30/2023 10:30 AM EST Telemedicine [facility] [address] [place] [phone] Darlin Wilkerson MD [address] [address] [facility] Start: 04-18-2023 End: 04-18-2023 Telemedicine consultation with patient 04/18/2023 3:00 PM EST Telemedicine [facility] [address] [address] Darlin Wilkerson MD [address] [address] [facility] Start: 04-09-2023 End: 04-09-2023 Patient encounter procedure 04/09/2023 2:30 PM EST Appointment [facility] - Mammogram DEXA [address] [place] [address] [facility] - Mammogram DEXA Start: 11-10-2022 COVID-19 Vaccine ( season) COVID-19 Vaccine ( season) [facility] Start: 11-10-2022 Influenza vaccination Influenza Vaccine [facility] Start: 10-17-2022 Adult BMI Follow Up Plan Adult BMI Follow Up Plan [facility] Start: 2018 Screening for malignant neoplasm of colon Colon Cancer Screening 3 Year Cologuard [facility] Start: 06-22-2018 Screening for malignant neoplasm of breast Mammogram [facility] Start: 09-02-2003 Screening for malignant neoplasm of cervix HPV/Cotest [facility] Start: 09-02-1991 Adult BMI Follow Up Plan Adult BMI Follow Up Plan [facility] Start: 1973 Screening for malignant neoplasm of colon [facility] End: 07-11-2024 Bacteria identified in Urine by Culture Urine Culture Microbiology Routine Acute cystitis without hematuria 1 Occurrences starting 07/12/2023 until 07/11/2024 [employer] Work Phone: Comment on above: 1 Occurrences starting 07/12/2023 until 07/11/2024 Bacteria identified in Urine by Culture Urine Culture Microbiology Routine Acute cystitis without hematuria 07/12/2023 10:07 PM EDT [facility] End: 04-24-2024 Bacteria identified in Urine by Culture Urine culture (clean catch) Microbiology Routine Acute cystitis without hematuria 1 Occurrences starting 04/24/2023 until 04/24/2024 [facility] Comment on above: 1 Occurrences starting 04/24/2023 until 04/24/2024 End: 02-21-2025 Bacteria identified in Urine by Culture Urine culture (clean catch) Microbiology Routine Acute cystitis without hematuria 1 Occurrences starting 02/22/2024 until 02/21/2025 [facility] Comment on above: 1 Occurrences starting 02/22/2024 until 02/21/2025 Bacteria identified in Urine by Culture Urine culture (clean catch) Microbiology Routine Acute cystitis without hematuria 02/22/2024 6:42 PM EST [facility] End: 07-18-2025 Bacteria identified in Urine by Culture Urine culture (clean catch) Microbiology Routine Flank pain Urinary frequency 1 Occurrences starting 07/18/2024 until 07/18/2025 [facility]: 1 Occurrences starting 07/18/2024 until 07/18/2025 Bacteria identified in Urine by Culture Urine culture (clean catch) Microbiology Routine Flank pain Urinary frequency 07/21/2024 4:16 PM EDT [facility] [employer] [facility] Bacteria identified in Wound by Aerobe culture Wound culture Microbiology Routine Boil 02/22/2024 7:39 PM EST [facility]Observe End: 07-22-2025 Chlamydia trachomatis DNA [Presence] in Unspecified specimen by JAYLEEN with probe detection Chlamydia/Gonorrhoeae by PCR, Urine Microbiology Routine Dysuria Urinary urgency 1 Occurrences starting 07/22/2024 until 07/22/2025 [facility] [employer] Work Phone: Comment on above: 1 Occurrences starting 07/22/2024 until 07/22/2025 [facility] Colog[facility] d [facility] Lab Routine Screen for colon cancer Ordered: 02/22/2024 [facility] Comment on above: Ordered: 02/22/2024 End: 06-10-2024 Hemoglobin A1c/Hemoglobin.total in Blood Hemoglobin A1c Lab Routine Pre-diabetes 1 Occurrences starting 06/11/2023 until 06/10/2024 [facility] [employer] Work Phone: Comment on above: 1 Occurrences starting 06/11/2023 until 06/10/2024 End: 10-20-2025 Hemoglobin A1c/Hemoglobin.total in Blood Hemoglobin A1c Lab Routine Pre-diabetes 1 Occurrences starting 10/20/2024 until 10/20/2025 [facility] [employer] Work Phone: Comment on above: 1 Occurrences starting 10/20/2024 until 10/20/2025 Patient Education Type 2 diabete s Metformin How to Keep Track of Your Blood Sugar Know your Meds [facility] Work Phone: Patient referral [facility] Work Phone: THIN PREP TIS PAP AN D HR HPV DNA THIN PREP TIS PAP AND HR HPV DNA Pathology and Cytology Routine ASCUS with positive high risk HPV cervical Ordered: 02/11/2024 [facility] [employer] Work Phone: Comment on above: Ordered: 02/11/2024 End: 07-22-2025 Trichomonas by PCR Trichomonas by PCR Microbiology Routine Possible exposure to STI 1 Occurrences starting 07/22/2024 until 07/22/2025 [facility] [employer] Work Phone: Comment on above: 1 Occurrences starting 07/22/2024 until 07/22/2025 End: 04-24-2024 Urinalysis Urinalysis (clean catch) Lab Routine Acute cystitis without hematuria 1 Occurrences starting 04/24/2023 until 04/24/2024 [facility] [employer] Work Phone: Comment on above: 1 Occurrences starting 04/24/2023 until 04/24/2024 End: 07-18-2025 Urinalysis Urinalysis (clean catch) Lab Routine Flank pain Urinary frequency 1 Occurrences starting 07/18/2024 until 07/18/2025 [employer] Comment on above: 1 Occurrences starting 07/18/2024 until 07/18/2025 Urinalysis Urinalysis (orquidea n catch) Lab Routine Flank pain Urinary frequency 07/21/2024 4:16 PM EDT [employer] End: 07-22-2025 Vaginitis Panel PCR Vaginitis Panel PCR Microbiology Routine Possible exposure to STI 1 Occurrences starting 07/22/2024 until 07/22/2025 [employer] Comment on above: 1 Occurrences starting 07/22/2024 until 07/22/2025 End: 02-21-2025 Wound culture Wound culture Microbiology Routine Abscess 1 Occurrences starting 02/22/2024 until 02/21/2025 [facility] [employer] Work Phone: Comment on above: 1 Occurrences starting 02/22/2024 until 02/21/2025 End: 10-29-2024 XR Lumbar spine 2 or 3 Views X-ray spine lumbar 2 or 3 views Imaging Routine Chronic bilateral low back pain, unspecified whether sciatica present 1 Occurrences starting 10/30/2023 until 10/29/2024 [facility] [employer] Work Phone: Comment on above: 1 Occurrences starting 10/30/2023 until 10/29/2024 [facility] Immunizations Immunization Date Immunization Notes Care Provider Cecilio menendez 01-11-2022 Covid-19, Mrna, Lnp- s, Bivalent, Pf, 50mcg/0.5ml or 25mcg/0.25ml Bong Dallas ASSISTANT SHIFT SUPERVISOR-CUSTOMS ENTRY WRITER Work Phone: [facility] 01-11-2022 influenza, injectabl e, quadrivalent, preservative free Bong Zhane ASSISTANT SHIFT SUPERVISOR-CUSTOMS ENTRY WRITER Work Phone: [facility] 01-11-2022 influenza virus vaccine, unspecified formulation Bong Zhane ASSISTANT SHIFT SUPERVISOR-CUSTOMS ENTRY WRITER Work Phone: [facility] 01-17-2021 influenza virus vaccine, unspecified formulation Sarah Ventura RN Work Phone: [facility] 01-17-2021 influenza, injectabl e, quadrivalent, preservative free Bong Dallas ASSISTANT SHIFT SUPERVISOR-CUSTOMS ENTRY WRITER Work Phone: [facility] 07-13-2020 COVID-19, mRNA, LNP- S, PF, 100mcg/0.5mL Dose Bong Zhane ASSISTANT SHIFT SUPERVISOR-CUSTOMS ENTRY WRITER Work Phone: [facility] 06-15-2020 COVID-19, mRNA, LNP- S, PF, 100mcg/0.5mL Dose Bong Dallas ASSISTANT SHIFT SUPERVISOR-CUSTOMS ENTRY WRITER Work Phone: [facility] 02-17-2020 influenza virus vaccine, unspecified formulation Sarah Ventura RN Work Phone: [facility] 02-17-2020 Influenza, injectabl e, Madin [place] Canine Kidney, preservative free, quadrivalent Bong Dallas ASSISTANT SHIFT SUPERVISOR-CUSTOMS ENTRY WRITER Work Phone: [facility] 05-05-2019 tetanus toxoid, reduced diphtheria toxoid, and acellular pertussis vaccine, adsorbed [facility] 11-14-2018 tetanus toxoid, reduced diphtheria toxoid, and acellular pertussis vaccine, adsorbed Bong Dallas ASSISTANT SHIFT SUPERVISOR-CUSTOMS ENTRY WRITER Work Phone: [facility] 07-23-2018 DTaP-hepatitis B and poliovirus vaccine Sarah Ventura RN Work Phone: [facility] 07-23-2018 hepatitis B vaccine, adult dosage Bong Dallas ASSISTANT SHIFT SUPERVISOR-CUSTOMS ENTRY WRITER Work Phone: [facility] 01-23-2018 hepatitis B vaccine, adult dosage Bong Dallas ASSISTANT SHIFT SUPERVISOR-CUSTOMS ENTRY WRITER Work Phone: [facility] 12-25-2017 hepatitis B vaccine, adult dosage Bong Zhane ASSISTANT SHIFT SUPERVISOR-CUSTOMS ENTRY WRITER Work Phone: [facility] Payers Date Payer Category Payer Self-pay [id number] 2022 Medicaid [id number] 2022 Medicaid [id number] 1975 Unknown [id number] 2.840.1.004968.3.579.2. 593 1975 Unknown [id number] 2.0.1.564793.3.579.2. 647 1975 Unknown [id number] 2.840.1.444294.3.579.2. 727 1973 Unknown [id number] 2.840.1.706595.3.579.2. 727 1973 Unknown [id number] 2.840.1.387419.3.579.2. 1286 1973 Unknown [id number] 2.840.1.278667.3.579.2. 1286 1973 Unknown [id number] 2.16.840.1.471229.3.579.2. 9 1973 Unknown [id number] 2.16.840.1.812029.3.579.2. 1258 1973 Unknown [id number] 2.16.840.1.247077.3.579.2. 1258 1973 Unknown [id number] 2.16.840.1.136020.3.579.2. 1258 1973 Unknown [id number] 2.16.840.1.938037.3.579.2. 1258 1973 Unknown [id number] 2.16840.1.963298.3.579.2. 1285 1973 Unknown [id number] 2.16840.1.855272.3.579.2. 1285 1973 Unknown [id number] 2.840.1.561143.3.579.2. 1285 1973 Unknown [id number] 2.840.1.973964.3.579.2. 1285 1973 Unknown [id number] 2.840.1.880410.3.579.2. 1285 1973 Unknown [id number] 2.16840.1.281748.3.579.2. 1285 1973 Unknown [id number] 2.840.1.946262.3.579.2. 1285 1973 Unknown [id number] 2.16840.1.861838.3.579.2. 1285 1973 Unknown [id number] 2.16840.1.939117.3.579.2. 1285 1973 Unknown [id number] 2.16840.1.151474.3.579.2. 1285 1973 Unknown [id number] 2.16840.1.445896.3.579.2. 1285 1973 Unknown [id number] 2.16840.1.033090.3.579.2. 1285 1973 Unknown [id number] 2.840.1.409768.3.579.2. 1285 1973 Unknown [id number] 2.840.1.190939.3.579.2. 1285 1973 Unknown [id number] 2.840.1.366789.3.579.2. 1285 1973 Unknown [id number] 2.840.1.984293.3.579.2. 1285 1973 Unknown [id number] 2.840.1.904042.3.579.2. 1285 1973 Unknown [id number] 2.840.1.911283.3.579.2. 1285 1973 Unknown [id number] 04.27.830.1.838372.3.579.2. 1285 1973 Unknown [id number] 2.840.1.433641.3.579.2. 1285 1973 Unknown [id number] .840.1.857960.3.579.2. 1285 1973 Unknown [id number] 840.1.634020.3.579.2. 1285 1973 Unknown [id number] .840.1.113047.3.579.2. 1285 1973 Unknown [id number] 840.1.261277.3.579.2. 1285 1973 Unknown [id number] .840.1.607050.3.579.2. 1285 1973 Unknown [id number] 2.840.1.531820.3.579.2. 1285 1973 Unknown [id number] 2.840.1.212025.3.579.2. 1286 1959 Private Health Insurance [id number] Private Health Insurance [facility] [id number] Private Health Insurance [facility] [employer] [id number] Unknown [id number] Unknown Jacquleyn BC/BS [id number] Unknown [id number] 2.16.840.1.462352.3.579.2. 531 Social History Date Type Detail Facility Tobacco smoking status MIIS Unknown if ever smoked [facility] Work Phone: Start: 1975 Sex Assigned At Female [facility] Start: 03-25-2020 End: 12-13-2023 Sex Assigned At [employer] [facility] Start: 08-02-2023 End: 11-07-2023 Tobacco smoking status MIIS Never smoked tobacco (finding) [facility] Tobacco smoking status [facility] Tobacco smoking consumption unknown [facility] Start: 1975 Sex assigned at Not on file [facility] Start: 12-29-2021 End: 08-02-2023 Tobacco use and exposure Smokeless tobacco non-user [facility] Start: 02-22-2024 End: 11-05-2024 Alcoholic beverage intake Ex-drinker (finding) [facility] Start: 03-25-2020 End: 12-13-2023 History of Social function [facility] Has the electric, gas, oil, or water company threatened to shut off services in your home in past 12Mo No [facility] How often to you have a drink containing alcohol? Monthly or less [facility] How many standard drinks containing alcohol do you have on a typical day? 1 or 2 [facility] How often do you have 6 or more drinks on 1 occasion? Never [facility] How hard is it for you to pay for the very basics like food, housing, medical care, and heating Somewhat hard [facility] Adolescent depression screening assessment 0 [facility] Start: 10-15-2014 Sex Female (finding) [facility] Start: 03-01-2023 End: 04-06-2023 Alcohol intake Current drinker of alcohol (finding) [facility] Start: 12-27-2020 Alcohol Comment RARELY [facility] NEGATED: Highlighted rowStart: NINF History of tobacco use Passive smoker [facility] Medical Equipment Procedure Code Equipment Code [...] Facility 11-16-2023 Functional status Patient at [facility] Work Phone: Mental Status Date Assessment Result Facility 11-16-2023 Cognitive function Cognitive Sta tus Patient at [facility] Work Phone: Clinical Notes 02-07-2022 to 11-17-2024 Telephone Encounter - Vero Hinton - 11/17/2024 11:34 AM EDTTelephone Encounter - Vero Hinton - 11/17/2024 11:34 AM EDTTelephone Encounter - Laura Becker CMA - 11/11/2024 3:37 PM EDTPatient Instructions Note Date & Type Note Facility 11-17-2024 Miscellaneous Notes With Provider: NEENA DEL CASTILLO [[facility]] Preferred Date Range: 11/17/2024 - 11/21/2024 Preferred Times: Any Reason for Visit: Office Visit Comments: SOPHIE documented in this encounter [facility] 11-17-2024 Telephone encounter Note With Provider: NEENA DEL CASTILLO [[facility]] Preferred Date Range: 11/17/2024 - 11/21/2024 Preferred Times: Any Reason for Visit: Office Visit Comments: SOPHIE [facility] 11-11-2024 Miscellaneous Notes Pt states she called and spoke with Karol last week regarding the Oxycodone needing a prior auth. Mica Sizer does not see documentation on this. Pt states she just checked with the pharmacy and they informed her no PA has been started. Pt is upset because she went the whole weekend without pain medication. Please advise and call pt back. Patient informed that the office was closed yesterday due to the holiday and that the denial was just receive this afternoon, patient voiced understanding, and states that she will pay OOP for the medication. PA was done through CMM, a denial was received due to the patient being opiate naive . Per the pts insurance since the pt hasn't received the medication for at least 7 days in the last 30 days they are unable to approve the PA. documented in this encounter [facility] 11-11-2024 Telephone encounter Note Pt states she called and spoke with Karol last week regarding the Oxycodone needing a prior auth. Mica Sizer does not see documentation on this. Pt states she just checked with the pharmacy and they informed her no PA has been started. Pt is upset because she went the whole weekend without pain medication. Please advise and call pt back. [facility] 11-11-2024 Telephone encounter Note Patient informed that the office was closed yesterday due to the holiday and that the denial was just receive this afternoon, patient voiced understanding, and states that she will pay OOP for the medication. PA was done through CMM, a denial was received due to the patient being opiate naive . Per the pts insurance since the pt hasn't received the medication for at least 7 days in the last 30 days they are unable to approve the PA. [employer] 11-05-2024 History of Present illness Narrative Images from the original note were not included. [facility] [address] [facility] [address] Name: Navdeep Palma : 1975 CHIEF COMPLAINT Chief Complaint Patient presents with Pain Pt is here to discuss concerns about pain in her right side under the breastbone. Been going on and off for a few months. Pt had fell in the shower a couple months ago. Er said that she has bruising . Pt states it has been getting worse. Blood Sugar Problem Pt is here to see if she can check her Blood Sugar more often. She is worried about becoming a diabetic. HISTORY OF PRESENT ILLNESS Navdeep Palma is a 49 y.o. old female. Patient presents today for concerns of right lateral chest wall pain that has been ongoing for several months. She was seen at [facility]. Mica Sizer is unable to review notes. Patient will sign ENRIQUE PMH significant for lupus, she will need rheumatology referral Another referral to pain mgmt today, will send short term rx of percocet today Samples provided [facility] lot 2027-02-08 [id number] ALLERGIES Allergies Allergen Reactions Ariton [Hydrocodone-Acetaminophen] Itching and Headache Cyclobenzaprine Headache and Hives Hydrochlorothiazide Nausea Lisinopril Cough MEDICATIONS Current Outpatient Medications on File Prior to Visit Medication Sig Dispense Refill amLODIPine (NORVASC) 10 mg tablet TAKE 1 TABLET BY MOUTH EVERY MORNING 90 tablet 1 baclofen (LIORESAL) 10 mg tablet Take 1 tablet (10 mg total) by mouth as needed for muscle spasms. 30 tablet 2 cholecalciferol, vitamin D3, 2,000 units capsule Take 1 capsule (2,000 Units total) by mouth in the morning. 100 capsule 0 citalopram (CeleXA) 20 mg tablet Take 1 tablet (20 mg total) by mouth in the morning. DULoxetine (CYMBALTA) 60 mg capsule TAKE 1 CAPSULE BY MOUTH EVERY MORNING 90 capsule 1 hydrOXYzine (VISTARIL) 50 mg capsule Take 1 capsule (50 mg total) by mouth 3 (three) times a day as needed for itching. 90 capsule 2 losartan (COZAAR) 25 mg tablet TAKE 1 TABLET BY MOUTH EVERY MORNING 90 tablet 0 metFORMIN (GLUCOPHAGE) 500 mg tablet TAKE 2 TABLETS BY MOUTH EVERY MORNING AND 2 TABLETS EVERY EVENING WITH A MEAL 360 tablet 1 multivitamin (THERAGRAN) tablet Take 1 tablet by mouth in the morning. omeprazole (PriLOSEC) 20 mg capsule TAKE 1 CAPSULE BY MOUTH EVERY MORNING 90 capsule 0 ondansetron ODT (ZOFRAN ODT) 4 mg disintegrating tablet Dissolve 2 tablets (8 mg total) on tongue every 8 (eight) hours as needed for nausea or vomiting. ONETOUCH [facility]ICA [facility] ULTRA TEST strip ONETOUCH ULTRA2 METER [facility] rivaroxaban (XARELTO) 20 mg tablet tablet Take 1 tablet (20 mg total) by mouth in the morning. 90 tablet 3 SUMAtriptan (IMITREX) 25 mg tablet Take 1 tablet (25 mg total) by mouth once as needed for migraine for up to 1 dose. May repeat in 2 hours if unresolved. Do not exceed 200 mg in 24 hours. 9 tablet 0 tirzepatide, weight loss, (ZEPBOUND) 2.5 mg/0.5 mL pen injector Inject 2.5 mg under the skin every 7 days. 2 mL 1 topiramate (TOPAMAX) 50 mg tablet TAKE 1 TABLET BY MOUTH EVERY MORNING AND BEFORE BEDTIME 60 tablet 2 No current facility-administered medications on file prior to visit. MEDICAL/SURGICAL/FAMILY HISTORY Past Medical History: Diagnosis Date Abnormal stress test Allergic Anxiety with depression 12/07/2023 Asthma Back pain Chronic pain disorder CPAP (continuous positive airway pressure) dependence Echocardiogram abnormal EKG abnormality Essential hypertension 02/07/2021 Fibromyalgia, primary Gastroesophageal reflux disease 12/07/2023 Joint pain Low back pain Lupus (systemic lupus erythematosus) ([facility]) Migraine Murmur, cardiac Obesity Osteoarthritis Osteoarthritis Peripheral neuropathy Pneumonia Sleep apnea Tooth loose Upper back pain Past Surgical History: Procedure Laterality Date SECTION three ECTOPIC SURGERY two EKOS, Thrombolysis of PE N/A 12/07/2023 Performed by Alexandra Alejandro MD at [facility] CARDIAC CATH LABS GASTRECTOMY sleeve HERNIA REPAIR HYSTERECTOMY 2009 COMPLETE INJECTION BLOCK NERVE KNEE Left Genicular Left 08/25/2022 Performed by Albert Jones MD at [facility] INJECTION BLOCK NERVE KNEE right genicular Right 05/16/2021 Performed by Albert Jones MD at [facility] JOINT REPLACEMENT Right 02/09/2021 LYMPH NODE DISSECTION bilateral axillae x2 OOPHORECTOMY Bilateral 2009 RADIO FREQUENCY ABLATION L 4/5,5/S1 Left 08/04/2016 Performed by Albert Jones MD at [facility] RADIO FREQUENCY ABLATION L4/5,5/S1 Right 08/21/2016 Performed by Albert Jones MD at [facility] REPLACEMENT TOTAL KNEE Right 2020 TUBAL LIGATION [...] Review of Systems Constitutional: Positive for fatigue. Respiratory: Positive for shortness of breath. Musculoskeletal: Positive for arthralgias, gait problem and joint swelling. Skin: Negative. PHYSICAL EXAMINATION Vitals: 11/05/24 1434 BP: 132/80 BP Site: Left Forearm BP Postition: Sitting BP CUFF SIZE: M (9-13 inches) Pulse: 84 SpO2: 98% Weight: (!) 155.8 kg (343 lb 6.4 oz) Height: 165.1 cm (5' 5 ) General [...] appropriate for situation. ASSESSMENT & PLAN 1. Systemic lupus erythematosus, unspecified SLE type, unspecified organ involvement status ([facility]) (Primary) - Ambulatory referral to Pain Management; Future - oxyCODONE-acetaminophen (PERCOCET) 7.5-325 mg per tablet; Take 1 tablet by mouth every 6 (six) hours as needed for pain. Max Daily Amount: 4 tablets Dispense: 20 tablet; Refill: 0 2. Spondylosis without myelopathy or radiculopathy, lumbosacral region - Ambulatory referral to Pain Management; Future - oxyCODONE-acetaminophen (PERCOCET) 7.5-325 mg per tablet; Take 1 tablet by mouth every 6 (six) hours as needed for pain. Max Daily Amount: 4 tablets Dispense: 20 tablet; Refill: 0 I will plan to have the patient return in approximately 3 months for a follow up. The patient was given standard warnings and instructed to call the office with any questions or concerns. Bong Yee APRN, LEDGER POSTER-C JILL Bower 11/15/242041 documented in this encounter [facility] 10-28-2024 Miscellaneous Notes With Provider: NEENA DEL CASTILLO [[facility]] Preferred Date Range: 10/28/2024 - 11/06/2024 Preferred Times: Any Reason for Visit: Office Visit Comments: Sleep & GLP 1 Meds documented in this encounter [facility] 10-28-2024 Telephone encounter Note With Provider: NEENA DEL CASTILLO [[facility]] Preferred Date Range: 10/28/2024 - 11/06/2024 Preferred Times: Any Reason for Visit: Office Visit Comments: Sleep & GLP 1 Meds [facility] 10-22-2024 Miscellaneous Notes [facility] 07/18/2024 Please sign and route. Thank you documented in this encounter [facility] 10-22-2024 Telephone encounter Note [facility] 07/18/2024 Please sign and route. Thank you [facility] 10-07-2024 Miscellaneous Notes Patient is requesting a refill on this medication. documented in this encounter [facility] 10-07-2024 Telephone encounter Note Patient is requesting a refill on this medication. [facility] 09-10-2024 Miscellaneous Notes Patient is requesting a refill on this medication. documented in this encounter [facility] 09-10-2024 Telephone encounter Note Patient is requesting a refill on this medication. [facility] 07-18-2024 History of Present illness Narrative Images from the original note were not included. [facility] [address] [place] [id number] Name: Navdeep Palma : 1975 CHIEF COMPLAINT [...] left knee xray ALLERGIES Allergies Allergen Reactions Ariton [Hydrocodone-Acetaminophen] Itching and Headache Cyclobenzaprine Headache and [...] vomiting. ONETOUCH DELICA PLUS LANCET [facility]CH ULTRA TEST strip ONETOUCH ULTRA2 METER [facility] oxyCODONE-acetaminophen (PERCOCET) 7.5-325 mg per tablet Take [...] Low back pain Lupus (systemic lupus erythematosus) ([facility]) Migraine Murmur, cardiac Obesity Osteoarthritis Osteoarthritis Peripheral neuropathy Pneumonia Sleep apnea Tooth loose Upper back pain Past Surgical History: Procedure Laterality Date SECTION three ECTOPIC SURGERY two EKOS, Thrombolysis of PE N/A 12/07/2023 Performed by Alexandra Alejandro MD at [facility] CARDIAC CATH LABS GASTRECTOMY sleeve HERNIA REPAIR HYSTERECTOMY 2009 COMPLETE INJECTION BLOCK NERVE KNEE Left Genicular Left 08/25/2022 Performed by Albert Jones MD at [facility] INJECTION BLOCK NERVE KNEE right genicular Right 05/16/2021 Performed by Albert Jones MD at [facility] JOINT REPLACEMENT Right 02/09/2021 LYMPH NODE DISSECTION bilateral axillae x2 OOPHORECTOMY Bilateral 2008 RADIO FREQUENCY ABLATION L 4/5,5/S1 Left 08/04/2016 Performed by Albert Jones MD at [facility] RADIO FREQUENCY ABLATION L4/5,5/S1 Right 08/21/2016 Performed by Albert Jones MD at [facility] REPLACEMENT TOTAL KNEE Right 2020 TUBAL LIGATION [...] or concerns. RIKI Bower APRN-C JILL Bower 07/21/242224 documented in this encounter [facility] 07-07-2024 Miscellaneous Notes LMOM for patient to call and reschedule follow up appointment with Dr Elias in [place] documented in this encounter [facility] 07-07-2024 Telephone encounter Note LMOM for patient to call and reschedule follow up appointment with Dr Elias in [place] [facility] 03-26-2024 Note Addendum created 1438 by Zane Barfield MD Attestation recorded in Intraprocedure, Flowsheet accepted, Intraprocedure Attestations filed [facility] 02-22-2024 History of Present illness Narrative Images from the original note were not included. [facility] [address] [facility] [address] Name: Navdeep Palma : 1975 CHIEF COMPLAINT [...] Rheumatology for lupus. ALLERGIES Allergies Allergen Reactions Ariton [Hydrocodone-Acetaminophen] Itching and Headache Cyclobenzaprine Headache and [...] Low back pain Lupus (systemic lupus erythematosus) ([facility]) Migraine Murmur, cardiac Obesity Osteoarthritis Osteoarthritis Peripheral neuropathy Pneumonia Sleep apnea Tooth loose Upper back pain Past Surgical History: Procedure Laterality Date SECTION three ECTOPIC SURGERY two EKOS, Thrombolysis of PE N/A 12/07/2023 Performed by Alexandra Alejandro MD at [facility] CARDIAC CATH LABS GASTRECTOMY sleeve HERNIA REPAIR HYSTERECTOMY 2009 COMPLETE INJECTION BLOCK NERVE KNEE Left Genicular Left 08/25/2022 Performed by Albert Jones MD at [facility] INJECTION BLOCK NERVE KNEE right genicular Right 05/16/2021 Performed by Albert Jones MD at [facility] JOINT REPLACEMENT Right 02/09/2021 LYMPH NODE DISSECTION bilateral axillae x2 OOPHORECTOMY Bilateral 2008 RADIO FREQUENCY ABLATION L 4/5,5/S1 Left 08/04/2016 Performed by Albert Jones MD at [facility] RADIO FREQUENCY ABLATION L4/5,5/S1 Right 08/21/2016 Performed by Albert Jones MD at [facility] TOTAL KNEE Right 2020 TUBAL [...] 9. Essential hypertension 10. BMI 50.0-59.9, adult ([facility]) I will plan to have the patient return in approximately 8 weeks for a follow up. The patient was given standard warnings and instructed to call the office with any questions or concerns. RIKI Bower APRN-C JILL Bower 02/22/24 2256 documented in this encounter [facility] 02-11-2024 Miscellaneous Notes Patient called and left [...] is indicated based off lung function data. Mica Sizer spoke to patient and informed per Dr [...] physician. Patient agreeable documented in this encounter [facility] 02-11-2024 Telephone encounter Note Patient called and left voicemail stating that she can see her PFT results and she would like to know what they mean as she feels that it showed something concerning. Please review and advise. [facility] 02-11-2024 Telephone encounter Note Attempted to reach patient to discuss concerns and no answer. VM not set up and unable to leave message. Impaired gas transfer seen on testing likely related to her anemia. No intervention is indicated based off lung function data. [facility] 02-11-2024 Telephone encounter Note Mica Sizer spoke to patient and informed per Dr [...] keep f/u appt with physician. Patient agreeable [facility] 02-11-2024 History of Present illness Narrative Reason [...] Allergies Allergen Reactions Flexeril [Cyclobenzaprine] Lisinopril Cough Ariton [Hydrocodone-Acetaminophen] PROBLEMS Active Ambulatory Problems Diagnosis Date [...] Surgical History: Procedure Laterality Date SECTION, CLASSIC /1992 CT ANGIOGRAM HEART CORONARY 12/12/2023 CT ANGIOGRAM [...] nursing note reviewed. Exam conducted with a linux system engineer present. Vitals: Estimated body mass index is [...] Raman Rivera DO documented in this encounter [facility] 02-04-2024 History of Present illness Narrative Reason [...] Allergies Allergen Reactions Flexeril [Cyclobenzaprine] Lisinopril Cough Ariton [Hydrocodone-Acetaminophen] PROBLEMS Active Ambulatory Problems Diagnosis Date [...] Surgical History: Procedure Laterality Date SECTION, CLASSIC /1992 CT ANGIOGRAM HEART CORONARY 12/12/2023 CT ANGIOGRAM [...] of: JAZMYN Phillips documented in this encounter [facility] 02-01-2024 Miscellaneous Notes Pt called office today asking to schedule a video visit with Linnette today. Mica Sizer told pt that linnette did not have any openings and could see someone else in office. Pt stayed that she cannot wait till next week to be seen. Mica Sizer recommended that pt go to the ER or UC if she cannot wait. Patient stated that the ER is not going to do anything for me because I have Lupus, they're going to tell me to see my Uniform Maker Mica Sizer informed pt that she could be seen in Office Next week by one of our other providers. Pt asked if there was something that was wrong with why Linnette will not see her. Mica Sizer informed the patient that Linnette Is fully Booked today 02/01/24 and is on vacation Everyday next week. Mica Sizer told patient that she can be seen by linnette beginning of Feb. Pt replied I will be half by then then Hung up on sba underwriter. documented in this encounter [facility] [employer] 02-01-2024 Telephone encounter Note Pt called office today asking to schedule a video visit with Linnette today. Mica Sizer told pt that linnette did not have any openings and could see someone else in office. Pt stayed that she cannot wait till next week to be seen. Mica Sizer recommended that pt go to the ER or UC if she cannot wait. Patient stated that the ER is not going to do anything for me because I have Lupus, they're going to tell me to see my Uniform Maker Mica Sizer informed pt that she could be seen in Office Next week by one of our other providers. Pt asked if there was something that was wrong with why Linnette will not see her. Mica Sizer informed the patient that Linnette Is fully Booked today 02/01/24 and is on vacation Everyday next week. Mica Sizer told patient that she can be seen by linnette beginning of Feb. Pt replied I will be half by then then Hung up on sba underwriter. [facility] 01-30-2024 History of Present illness Narrative Images from the original note were not included. [facility] [address] [facility] [address] Name: Navdeep Palma : 1975 CHIEF COMPLAINT No chief complaint on file. HISTORY OF PRESENT ILLNESS Navdeep Palma is a 48 y.o. old female who is an established patient seen by [facility] Video visit with a chief complaint of [...] time she had these filled was at [facility] [place]. She was referred to [facility] pain mgmt in [place]. States she was hospitalized and missed an appt, dismissed from service. Cardiology told her she should not be taking premarin, this was discontinued. Patient states she is no longer participating in PT due to paperwork not being faxed over. New referral placed today. ALLERGIES Allergies Allergen Reactions Ariton [Hydrocodone-Acetaminophen] Itching and Headache Cyclobenzaprine Headache and [...] vomiting. ONETOUCH DELICA PLUS LANCET 33 gauge [facility] USE DIRECTED TO check blood sugar 3 TIMES DAILY & NEEDED DIRECTED ONETOUCH ULTRA TEST strip ONETOUCH ULTRA2 METER [facility] USE DIRECTED TO test blood sugar oxyCODONE [...] Low back pain Lupus (systemic lupus erythematosus) ([facility]) Migraine Murmur, cardiac Obesity Osteoarthritis Osteoarthritis Peripheral neuropathy Pneumonia Sleep apnea Tooth loose Upper back pain Past Surgical History: Procedure Laterality Date SECTION three ECTOPIC SURGERY two EKOS, Thrombolysis of PE N/A 12/07/2023 Performed by Alexandra Alejandro MD at [facility] CARDIAC CATH LABS GASTRECTOMY sleeve HERNIA REPAIR HYSTERECTOMY 2009 COMPLETE INJECTION BLOCK NERVE KNEE Left Genicular Left 08/25/2022 Performed by Albert Jones MD at [facility] INJECTION BLOCK NERVE KNEE right genicular Right 05/16/2021 Performed by Albert Jones MD at [facility] JOINT REPLACEMENT Right 02/09/2021 LYMPH NODE DISSECTION bilateral axillae x2 OOPHORECTOMY Bilateral 2008 RADIO FREQUENCY ABLATION L 4/5,5/S1 Left 08/04/2016 Performed by Albert Jones MD at [facility] RADIO FREQUENCY ABLATION L4/5,5/S1 Right 08/21/2016 Performed by Albert Jones MD at [facility] REPLACEMENT TOTAL KNEE Right 2020 TUBAL LIGATION [...] Strain: Medium Risk (10/31/2023) Re[facility] from [facility] Overall Financial Resource Strain (CARDIA) Difficulty of [...] patient today using the Telehealth/video software in [employer]. This was performed en lieu of a vcqk-nd-gzhi office visit due to the current COVID-19 pandemic. JILL Bower APRN-CNP 02/02/24 [id number] documented in this encounter [facility] 01-29-2024 History of Present illness Narrative Bonillaelaine Maida Palma Date of visit: 01/29/2024 Date of : 1975 Age: 48 y.o. 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, lumbar region Lumbosacral spondylosis without myelopathy Essential hypertension Right anterior knee pain Primary osteoarthritis of left knee BMI 50.0-59.9, adult ([facility]) Pulmonary embolism ([facility]) Anxiety with depression Fibromyalgia Gastroesophageal reflux disease Systemic lupus erythematosus ([facility]) Mild intermittent asthma without complication SOPHIE (obstructive sleep apnea) Prediabetes Status post total knee replacement using cement, left Vitamin D deficiency Vitamin B1 deficiency Right lower lobe lung mass Allergies Allergen Reactions Ariton [Hydrocodone-Acetaminophen] Itching and Headache Cyclobenzaprine Headache and [...] vomiting. ONETOUCH DELICA PLUS LANCET 33 gauge [facility] USE DIRECTED TO check blood sugar 3 TIMES DAILY & NEEDED DIRECTED ONETOUCH ULTRA TEST strip ONETOUCH ULTRA2 METER [facility] USE DIRECTED TO test blood sugar oxyCODONE [...] Low back pain Lupus (systemic lupus erythematosus) ([facility]) Migraine Murmur, cardiac Obesity Osteoarthritis Osteoarthritis Peripheral neuropathy Pneumonia Sleep apnea Tooth loose Upper back pain Past Surgical History: Procedure Laterality Date SECTION three ECTOPIC SURGERY two EKOS, Thrombolysis of PE N/A 12/07/2023 Performed by Alexandra Alejandro MD at [facility] CARDIAC CATH LABS GASTRECTOMY sleeve HERNIA REPAIR HYSTERECTOMY 2008 COMPLETE INJECTION BLOCK NERVE KNEE Left Genicular Left 08/25/2022 Performed by Albert Jones MD at [facility] INJECTION BLOCK NERVE KNEE right genicular Right 05/16/2021 Performed by Albert Jones MD at [facility] JOINT REPLACEMENT Right 02/09/2021 LYMPH NODE DISSECTION bilateral axillae x2 OOPHORECTOMY Bilateral 2008 RADIO FREQUENCY ABLATION L 4/5,5/S1 Left 08/04/2016 Performed by Albert Jones MD at [facility] RADIO FREQUENCY ABLATION L4/5,5/S1 Right 08/21/2016 Performed by Albert Jones MD at [facility] REPLACEMENT TOTAL KNEE Right 2020 TUBAL LIGATION [...] Strain: Medium Risk (10/31/2023) Received from [facility] Overall Financial Resource Strain (CARDIA) Difficulty [...] 07/28/2024). PCP: JILL Bower Referring Physician: Bong Yee APRN-AMBROSIO [address], [address] [address] documented in this encounter [facility] 01-29-2024 Instructions Jordyn Moreira MD - 01/29/2024 3:15 PM EST As discussed, discontinue Premarin/estrogen documented in this encounter [facility] 01-28-2024 Miscellaneous Notes Left message for patient to remind them to bring their most current medication list with them to their appointment. documented in this encounter [facility] 01-28-2024 Telephone encounter Note Left message for patient to remind them to bring their most current medication list with them to their appointment. [facility] 01-17-2024 Miscellaneous Notes PAP mask and supplies order with supportive documentation faxed to [facility]. documented in this encounter [facility] 01-17-2024 Telephone encounter Note PAP mask and supplies order with supportive documentation faxed to [facility]. [facility] 01-10-2024 History of Present illness Narrative [facility] Pulmonary And Sleep Progress Note Patient - Navdeep Palma Age - 48 y.o. - 1975 [id number] ASSESSMENT Pulmonary emboli s/p EKOS on xarelto [...] hepatic steatosis. Dr. Neena Del Castillo DO. [facility] Physicians Pulmonary & Critical Care Office: [phone] documented in this encounter [facility] 01-07-2024 History of Present illness Narrative Images from the original note were not included. [facility] [address] [facility] [id number] Subjective: Patient ID: Navdeep Palma is a [...] knee Pre-operative cardiovascular examination BMI 50.0-59.9, adult ([facility]) Pulmonary embolism ([facility]) Anxiety with depression Fibromyalgia Gastroesophageal reflux disease Systemic lupus erythematosus ([facility]) Mild intermittent asthma without complication SOPHIE (obstructive sleep apnea) Prediabetes Status post total knee replacement using cement, left Vitamin D deficiency Vitamin B1 deficiency Morbid obesity with body mass index of 50 or higher ([facility]) Current Outpatient Medications: acetaminophen (TYLENOL EXTRA STRENGTH) [...] Rfl: ONETOUCH DELICA PLUS LANCET 33 gauge [facility], USE DIRECTED TO check blood sugar 3 TIMES DAILY & NEEDED DIRECTED, Disp: , Rfl: ONETOUCH ULTRA TEST strip, , Disp: , Rfl: ONETOUCH ULTRA2 METER [facility], USE DIRECTED TO test blood sugar, Disp: [...] Bobbi Ortiz MD documented in this encounter [facility] 12-19-2023 History of Present illness Narrative Images from the original note were not included. [facility] [address] [facility] [address] [facility] [address] Subjective: Patient ID: The patient is here today for discharge follow up from [facility] 12/12-12/13 . Medication reconciliation was completed. HPI DATE OF ADMISSION: 12/13/2023 DATE OF DISCHARGE:12/14/2023 DISCHARGE DIAGNOSES Principal Problem: Pulmonary embolism ([facility]) Active Problems: Essential hypertension BMI 50.0-59.9, adult ([facility]) Anxiety with depression Fibromyalgia Gastroesophageal reflux disease Systemic lupus erythematosus ([facility]) Mild intermittent asthma without complication SOPHIE (obstructive sleep apnea) Prediabetes Status post total knee replacement using cement, left Vitamin D deficiency Vitamin B1 deficiency Morbid obesity with body mass index of 50 or higher ([facility]) [facility] PCP: Bong Yee, YULISA-CUSTOMS ENTRY WRITER PROCEDURES None HOSPITAL COURSE SUMMARY Navdeep Palma is a 48 y.o. female who presents as a transfer from [facility] Emergency Department for vascular evaluation. Patient was recently hospitalized at [facility] from 12/06 to 12/08 for acute pulmonary embolism secondary to recent left total knee. CTA imaging during that time showed acute bilateral pulmonary emboli extending to the lower lobes with features of right ventricular strain. She underwent EKOS procedure 12/06 and was subsequently transferred back to ICU under vascular surgeon. She was subsequently transitioned to Xarelto for discharge and sent home from the [...] initially she was going to drive to [facility] however felt something maybe very wrong so she stopped at [facility] Emergency Department instead. In the emergency [...] infusion without bolus and subsequently transferred to [facility] for vascular evaluation. Patient was seen [...] APRN, APRN-CNP 12/26/232135 documented in this encounter [facility] [employer] 12-17-2023 Miscellaneous Notes Hospital Discharge Follow Up Call (This is not a billable TCM) Transition of Care (*required) *Additional Questions/Concerns Requiring PCP Follow-Up: The patient has her NIELS appt with Bong Yee tomorrow on 12/18. She wants to dicuss the on going shortness of breath that she continues to experience. It is about the same as on the day of discharge from the hospital , it has never gone away. She has it with minimal exertion, denies any chest pain. It improves with rest. She was given the phone number for [facility] as she would like to make [...] Discharge Specialty: Pulmonology *Name of Discharging Facility: [facility] Date of Facility Discharge: 12/13/2023 - 12/14/2023 (33 hours) Date of Interactive Contact and Name of Gun Synchronizer: Mica Sizer spoke with the patient on 12/18/23 at 2:45 pm. *Medication Review Completed: Yes, the patient's medications were reviewed and the [facility] med list has been updated. CHANGE how [...] Bower 12/19/23 10:15 am Specialty: Dr. Saqib Lorenzo 01/07/24 9:15 am Specialty: Dr. Jordyn Moreira 01/29/24 3:15 pm Specialty: [facility]: sba underwriter gave the patient the phone number to [...] Patient given the Contact information for the Cam Maker Navigator in PCP practice, Sarah Ventura, and explained that this RN will be available for 30 days post hospitalization. Communication with Home Health Agencies and Other Services Utilized/Needed by the Patient: She had been going for PT following her Total knee surgery in November and was going to an out patient place called PT services in [place]. She has not gone back for more [...] needs or concerns. documented in this encounter [employer] 12-17-2023 Telephone encounter Note Hospital Discharge Follow Up Call (This is not a billable TCM) Transition of Care (*required) *Additional Questions/Concerns Requiring PCP Follow-Up: The patient has her NIELS appt with Bong Yee tomorrow on 12/18. She wants to dicuss the on going shortness of breath that she continues to experience. It is about the same as on the day of discharge from the hospital , it has never gone away. She has it with minimal exertion, denies any chest pain. It improves with rest. She was given the phone number for [facility] as she would like to make [...] Discharge Specialty: Pulmonology *Name of Discharging Facility: [facility] Date of Facility Discharge: 12/13/2023 - 12/14/2023 (33 hours) Date of Interactive Contact and Name of Gun Synchronizer: Mica Sizer spoke with the patient on 12/18/23 at 2:45 pm. *Medication Review Completed: Yes, the patient's medications were reviewed and the [facility] med list has been updated. CHANGE how [...] Bower 12/19/23 10:15 am Specialty: Dr. Saqib Lorenzo 01/07/24 9:15 am Specialty: Dr. Jordyn Moreira 01/29/24 3:15 pm Specialty: [facility]: sba underwriter gave the patient the phone number to [...] Patient given the Contact information for the Cam Maker Navigator in PCP practice, Sarah Ventura, and explained that this RN will be available for 30 days post hospitalization. Communication with Home Health Agencies and Other Services Utilized/Needed by the Patient: She had been going for PT following her Total knee surgery in November and was going to an out patient place called PT services in [place]. She has not gone back for more PT as needs a release from her PCP to begin again. [facility] 12-17-2023 Telephone encounter Note Contact Type: Direct contact - Phone call with patient - general Unable to reach for follow up. [facility] Work Phone: 12-17-2023 Telephone encounter Note Contact Type: Direct contact - Phone call with patient - general Unable to reach patient or leave message. [facility] 12-17-2023 Telephone encounter Note Contact Type: General [...] as appropriate for identified needs or concerns. [facility] 12-14-2023 Miscellaneous Notes Contract: 91 [facility] [phone] Re medication Left Message on Dr Drew cell phone to call after hours Called Nurse back and to verify and she was going to call back and cancel call and reach out to patient regular Md instead documented in this encounter [facility] 12-14-2023 Telephone encounter Note Contract: 91 [facility] [phone] Re medication [facility] 12-14-2023 Telephone encounter Note Left Message on Dr Drew cell phone to call after hours [facility] 12-14-2023 Telephone encounter Note Called Nurse back and to verify and she was going to call back and cancel call and reach out to patient regular Md instead [facility] 12-13-2023 Miscellaneous Notes Images from the original note were not included. Contact Type: Direct contact - Phone call with patient - general Patient called expressing concerns for her location within [facility] stating she feels she is not getting as good of care as when she was on the 8th floor. Encouraged she discuss her concerns with providers and nursing staff. Mica Sizer did forward patient's concerns to Acute Radial Drill Press Operator For PlasticRoselia RN via [employer] Chat: documented in this encounter [employer] 12-13-2023 Telephone encounter Note Images from the original note were not included. Contact Type: Direct contact - Phone call with patient - general Patient called expressing concerns for her location within [facility] stating she feels she is not getting as good of care as when she was on the 8th floor. Encouraged she discuss her concerns with providers and nursing staff. Mica Sizer did forward patient's concerns to Acute Radial Drill Press Operator For PlasticRoselia arenas RN via [employer] Chat: [employer] Work Phone: 12-10-2023 Miscellaneous Notes Hospital Discharge Follow Up Call (This is not a billable TCM) Transition of Care (*required) *Additional Questions/Concerns Requiring PCP Follow-Up: Patient would like senior power scheduler to call her to schedule PCP hospital [...] Discharge Specialty: Vascular *Name of Discharging Facility: [facility] Date of Facility Discharge: 12.07.23 - 12.09.23 Date of Interactive Contact and Name of Gun Synchronizer: 12.10.23 @ 4229 - Left message 12.11.23 @ 9985 - Spoke with patient *Medication Review Completed: No Declines need. Confirms she has medication and denies questions / concerns. START taking: XARELTO DVT-PE TREAT 30D START (rivaroxaban) STOP taking: aspirin 325 mg tablet Medication Reconciliation Questions/Concerns: None *Follow Up Appointments with Providers: Primary: Bong Yee APRN-CUSTOMS ENTRY WRITER TBD Specialty: Gina Bourgeois CNP - Pain MGMT 12.11.23 @ 6797 - Patient unable to attend this appointment because she was supposed to have testing done prior that she wasn't able to do due to being in the hospital. Specialty: Dr. Ortiz - Vasc Surg - 01.07.24 @ 4956 Specialty: Review of Pending Lab/Diagnostic Tests and [...] TCM services available and advised patient that health care marketing specialist navigator will be available to provide assistance for a minimum of 30 days post discharge. Patient to call ACN Sarah / PCP for any new, worsening, or returning symptoms, questions ,or concerns. Call 911 for any severe symptoms Communication with Home Health Agencies and Other Services Utilized/Needed by the Patient: NA documented in this encounter [employer] 12-10-2023 Telephone encounter Note Hospital Discharge Follow Up Call (This is not a billable TCM) Transition of Care (*required) *Additional Questions/Concerns Requiring PCP Follow-Up: Patient would like senior power scheduler to call her to schedule PCP hospital [...] Discharge Specialty: Vascular *Name of Discharging Facility: [facility] Date of Facility Discharge: 12.07.23 - 12.09.23 Date of Interactive Contact and Name of Gun Synchronizer: 12.10.23 @ 9141 - Left message 12.11.23 @ 0200 - Spoke with patient *Medication Review Completed: No Declines need. Confirms she has medication and denies questions / concerns. START taking: XARELTO DVT-PE TREAT 30D START (rivaroxaban) STOP taking: aspirin 325 mg tablet Medication Reconciliation Questions/Concerns: None *Follow Up Appointments with Providers: Primary: Bong Yee APRN-CUSTOMS ENTRY WRITER TBD Specialty: Gina Bourgeois CNP - Pain MGMT 12.11.23 @ 8187 - Patient unable to attend this appointment because she was supposed to have testing done prior that she wasn't able to do due to being in the hospital. Specialty: Dr. Ortiz - Vasc Surg - 01.07.24 @ 0969 Specialty: Review of Pending Lab/Diagnostic Tests and [...] TCM services available and advised patient that health care marketing specialist navigator will be available to provide assistance for a minimum of 30 days post discharge. Patient to call ACN Sarah / PCP for any new, worsening, or returning symptoms, questions ,or concerns. Call 911 for any severe symptoms Communication with Home Health Agencies and Other Services Utilized/Needed by the Patient: NA [facility] 12-07-2023 Miscellaneous Notes Contract: 91 [facility] Omi Tracey, pt arrival to floor; rm 225 Numeric page sent documented in this encounter [facility] 12-07-2023 Telephone encounter Note Contract: 91 [facility] Omi Tracey, pt arrival to floor; rm 225 [facility] 12-07-2023 Telephone encounter Note Numeric page sent [facility] 11-19-2023 Note Orthopaedic Surgery Subjective Post-op of the Left Knee (TKA) 11/19/23 Domingo Palma is a 48 y.o. female presenting for post-op of the left total knee arthroplasty using Liliane implants done 31 October 2023. Patient now almost 3 weeks following her surgery and has been ambulating full weightbearing. She is at the [facility] at this point in time until today [...] Left knee pain Lupus (systemic lupus erythematosus) ([facility]) Migraine Obesity BMI 54.55 Osteoarthritis Sleep apnea [...] from me. Dr. Lyssa Park MD MRCSEd Packing And Wrapping Supervisor orthopedic surgery Adult Reconstruction and Trauma [facility]. [facility] 11-16-2023 Discharge summary Note Date/Time November 16, 2023 9:23am [facility] [address] [place] [address] Discharge Summary Signed Patient: Navdeep Palma MR#: [id number] : 1975 Acct:[id number] Age/Sex: 48 / F Adm Date: 4 Loc: Room: [address] [place] [address]: Jonny Bentley MD Copies to: MD Jordyn Esqueda, ASSISTANT SHIFT SUPERVISOR, CUSTOMS ENTRY WRITER~ Providers Date of Discharge: 11/16/23 Discharging Provider: [...] reports severe osteoarthritis of the joint with [id number]-rs-ypdv resultingin significant discomfort and difficulty with mobility she failed multimodality conservative treatment. Presented to [facility] for an elective knee replacement on 10/30. [...] years to have been discontinued while at [facility]. Per the patient her most recent A1c [...] have Outpatient [facility] ( ). You have been given [...] 500 mg capsule 500 mg PO DAILY xotxyhrazu-vyxxrjnluzlcy-inhi [Fioricet] 50-300-40 mg capsule 1 cap PO [...] Ordered By: Jonny Bentley Follow Up: Ashkan Yee MD [Other] - 11/20/23 11:00 am ([facility]- [facility] WITH DR CYNTHIA WILCOX, [facility]) Lyssa Park MD [Referring] - 11/19/23 1:15 pm (Orthopedic Surgeon- appointment is at [facility] [place] [address]. ([phone])) Jordyn Barrera APRN, RESEARCH LABORATORY SPECIALIST-C [Primary Care Provider] - 11/19/23 10:00 am [...] Glucose 92 Documented By: Jonny Bentley MD 09 Signed By: <Electronically signed by Jonny Bentley MD> 11/16/23 1509 [facility] Work Phone: 1(762) 577-472209-05-2024 Progress note Author Jonny Bentley [facility] November 15, 2023 1:59pm Note Date/Time November 15, 2023 1:59pm [facility] [address] [place] [address] Physiatry(Rehab) Progress Note Signed Patient: Navdeep Palma MR#: [id number] : 1975 Acct:[id number] Age/Sex: 48 / F Adm Date: 4 Loc: Room: 6Z3676-5 Type: ADM IN Attending Dr: Jonny Bentley MD Copies to: ~ Date of Service: 11/15/2023 Subjective Subjective Narrative: Ms. Palma is a 48 year old female with multiple comorbidities including systemiclupus erythematosus, morbid obesity, HTN, HLD, prediabetes who presents to acuteinpatient rehabilitation unit with functional impairments in the setting of lefttotal knee arthroplasty. Patient reports severe osteoarthritis of the joint with rowj-sk-nbxp resultingin significant discomfort and difficulty with mobility she failed multimodality conservative treatment. Presented to [facility] for an elective knee replacement on 10/30. [...] years to have been discontinued while at [facility]. Per the patient her most recent A1c [...] Allergies Allergies and Active Meds: Allergies acetaminophen [Ariton] Allergy (Unknown, Verified 10/31/22 10:45) Itchy cyclobenzaprine [Flexeril] Allergy (Unknown, Verified 10/31/22 10:45) Itchy hydrocodone [Ariton] Allergy (Unknown, Verified 10/31/22 10:45) Itchy hydrochlorothiazide [...] mg 11/06/23 17:07 Bisacodyl 10 Mg Supp.Rect CO 11/05/24 17:06 DAILY PRN Constipation Diclofenac Sodium [...] 17:07 Docusate Enema 283 Mg/5 Ml Enema CO 11/05/24 17:06 DAILY PRN Constipation Duloxetine HCl [...] 11/07/23 09:00 11/15/23 08:31 Pantoprazole 40 Mg Tablet.Dr PO 11/06/24 08:59 [...] equipment to enhance the patient's a functional mosque Ensure adequate nutrition and hydration Sleep Discharge planning. Patient was personally seen by me, Dr. Bentley, on the day of encounter, reviewed the history and the relevant portions of the chart, including current orders, allied health and consumer experience consultant notes, labs/imaging and performed humphries elements of exam and I formulated the plan of care and facilitated the medical decision making. I completed a substantive portion of this encounter, the medical decision making portion of this note in its entirety, including Allied health note review, nursing note review, consumer experience consultant note review, discussion with nursing and case management, and more than 50% of my time was spent on counseling and coordination of care, time spent 25 minutes Documented By: Jonny Bentley MD [id number] Signed By: <Electronically signed by Jonny Bentlye MD> 11/15/23 1351 [facility] Work Phone: 1(902) 917-254509-04-2024 Progress note Author Jonny Bentley [facility] November 14, 2023 2:15pm Note Date/Time November 14, 2023 1:29pm [facility] [address] [place] [address] Physiatry(Rehab) Progress Note Signed with Yvette Patient: Navdeep Palma MR#: [id number] : 1975 Acct:[id number] Age/Sex: 48 / F Adm Date: 4 Loc: Room: 4W5079-1 Type: ADM IN Attending Dr: Jonny Bentley [...] reports severe osteoarthritis of the joint with fmoy-aq-[id number] resultingin significant discomfort and difficulty with mobility she failed multimodality conservative treatment. Presented to [facility] for an elective knee replacement on 10/30. [...] years to have been discontinued while at [facility]. Per the patient her most recent A1c [...] Appearance Clear Urine pH 6.0 Ur Specific [place] 1.023 Urine Protein Negative Urine Glucose (UA) Normal Urine Ketones Negative Urine Occult Blood Negative Urine Nitrite Negative Urine Bilirubin Negative Urine Urobilinogen 2 H Ur Leukocyte Esterase Negative Medications and Allergies Allergies and Active Meds: Allergies acetaminophen [Ariton] Allergy (Unknown, Verified 10/31/22 10:45) Itchy cyclobenzaprine [Flexeril] Allergy (Unknown, Verified 10/31/22 10:45) Itchy hydrocodone [Ariton] Allergy (Unknown, Verified 10/31/22 10:45) Itchy hydrochlorothiazide Adverse Reaction (Verified 07/04/19 10:35) Dizziness Active Medications Generic Name Dose Route Start Last Admin Trade Name Jose PRN Reason Stop Dose Admin Acetaminophen 1,000 [...] Tablet PO 11/06/24 08:59 10 mg DAILY YSAMANY Administration Ascorbic Acid 500 mg 11/07/23 09:00 [...] mg 11/06/23 17:07 Bisacodyl 10 Mg Supp.Rect CO 11/05/24 17:06 DAILY PRN Constipation Diclofenac Sodium [...] 17:07 Docusate Enema 283 Mg/5 Ml Enema CO 11/05/24 17:06 DAILY PRN Constipation Duloxetine HCl [...] 11/07/23 09:00 11/14/23 10:12 Pantoprazole 40 Mg Tablet. PO 11/06/24 08:59 [...] equipment to enhance the patient's a functional mosque Ensure adequate nutrition and hydration Sleep Discharge planning. Patient was personally seen by me, Dr. Bentley, on the day of encounter, reviewed the history and the relevant portions of the chart, including current orders, allied health and consumer experience consultant notes, labs/imaging and performed humphries elements of exam and I formulated the plan of care and facilitated the medical decision making. I completed a substantive portion of this encounter, the medical decision making portion of this note in its entirety, including Allied health note review, nursing note review, consumer experience consultant note review, discussion with nursing and case management, and more than 50% of my time was spent on counseling and coordination of care, time spent 30 minutes Documented By: Jonny Bentley MD [id number] Signed By: <Electronically signed by Jonny Bentley MD> 11/14/23 1321 [facility] Work Phone: 1(260) 651-387209-03-2024 Progress note Author Jonny Bentley [facility] November 13, 2023 2:21pm Note Date/Time November 13, 2023 2:21pm [facility] [address] [place] [address] Physiatry(Rehab) Progress Note Signed Patient: Navdeep Palma MR#: [id number] : 1975 Acct:[id number] Age/Sex: 48 / F Adm Date: 4 Loc: Room: 5W9509-5 Type: ADM IN Attending Dr: Jonny Bentley MD Copies to: ~ Date of Service: 11/13/2023 Subjective Subjective Narrative: Ms. Palma is a 48 year old female with multiple comorbidities including systemiclupus erythematosus, morbid obesity, HTN, HLD, prediabetes who presents to acuteinpatient rehabilitation unit with functional impairments in the setting of lefttotal knee arthroplasty. Patient reports severe osteoarthritis of the joint with sghk-bp-[id number] resultingin significant discomfort and difficulty with mobility she failed multimodality conservative treatment. Presented to [facility] for an elective knee replacement on 10/30. [...] years to have been discontinued while at [facility]. Per the patient her most recent A1c [...] % (Auto) 59.2 Lymph % (Auto) 32.1 [place] % (Auto) 6.2 Eos % (Auto) 1.2 Baso % (Auto) 1.3 Nucleat RBC Rel Count 0.4 Neut # (Auto) 3.7 Lymph # (Auto) 2.0 [place] # (Auto) 0.4 Eos # (Auto) 0.1 Baso # (Auto) 0.1 PHA Creatinine Clear 162.78 Sodium 142 Potassium 3.4 L Chloride 105 Carbon Dioxide 27.9 Anion Gap 12.5 BUN 7 Creatinine 0.65 Est GFR (CKD-EPI) > 60.0 Glucose 94 POC Glucose 103 Calcium 8.3 L Medications and Allergies Allergies and Active Meds: Allergies acetaminophen [Ariton] Allergy (Unknown, Verified 10/31/22 10:45) Itchy cyclobenzaprine [Flexeril] Allergy (Unknown, Verified 10/31/22 10:45) Itchy hydrocodone [Ariton] Allergy (Unknown, Verified 10/31/22 10:45) Itchy hydrochlorothiazide [...] mg 11/06/23 17:07 Bisacodyl 10 Mg Supp.Rect CO 11/05/24 17:06 DAILY PRN Constipation Diclofenac Sodium 2 gm 11/13/23 14:00 Diclofenac Sodium 1% Gel 100 Gm Tube TOPICAL 11/12/24 13:59 TID [facility] Docusate Sodium 100 mg 11/06/23 21:00 11/13/23 08:37 Docusate 100 Mg Capsule PO 11/05/24 20:59 Not Given BID [facility] Docusate Sodium 100 mg 11/06/23 17:07 Docusate 100 Mg Capsule PO 11/05/24 17:06 BID PRN Constipation Docusate Sodium 283 mg 11/06/23 17:07 Docusate Enema 283 Mg/5 Ml Enema CO 11/05/24 17:06 DAILY PRN Constipation Duloxetine HCl 60 mg 11/06/23 22:30 11/12/23 21:12 Duloxetine 60 Mg Capsule.Dr PO 11/05/24 22:29 60 mg HS [facility] Administration Enoxaparin Sodium 40 mg 11/07/23 21:00 [...] Tablet PO 11/05/24 22:29 50 mg HS YASMNAY Administration Assessment/Plan Assessment/Plan (1) SLE (systemic lupus [...] equipment to enhance the patient's a functional mosque Ensure adequate nutrition and hydration Sleep Discharge planning. Patient was personally seen by me, Dr. Bentley, on the day of encounter, reviewed the history and the relevant portions of the chart, including current orders, allied health and consumer experience consultant notes, labs/imaging and performed humphries elements of exam and I formulated the plan of care and facilitated the medical decision making. I completed a substantive portion of this encounter, the medical decision making portion of this note in its entirety, including Allied health note review, nursing note review, consumer experience consultant note review, discussion with nursing and case management, and more than 50% of my time was spent on counseling and coordination of care, time spent 30 minutes Case reviewed at weekly team conference, discussed progress and goals of care, barriers/problems to date and discharge planning. Documented By: Jonny Bentley MD [id number] Signed By: <Electronically signed by Jonny Bentley MD> 11/13/23 1421 [facility] Work Phone: 1(312) 644-361009-03-2024 Progress note Author Jonny Bentley [facility] November 13, 2023 9:20am Note Date/Time November 12, 2023 11:40am [facility] [address] [place] [address] Physiatry(Rehab) Progress Note Signed Patient: Navdeep Palma MR#: [id number] : 1975 Acct:[id number] Age/Sex: 48 / F Adm Date: 4 Loc: Room: 2B5011-5 Type: ADM IN Attending Dr: Jonny Bentley MD Copies to: ~ Date of Service: 11/12/2023 Subjective Subjective Narrative: Ms. Palma is a 48 year old female with multiple comorbidities including systemiclupus erythematosus, morbid obesity, HTN, HLD, prediabetes who presents to acuteinpatient rehabilitation unit with functional impairments in the setting of lefttotal knee arthroplasty. Patient reports severe osteoarthritis of the joint with pqfg-xf-[id number] resultingin significant discomfort and difficulty with mobility she failed multimodality conservative treatment. Presented to [facility] for an elective knee replacement on 10/30. [...] years to have been discontinued while at [facility]. Per the patient her most recent A1c [...] Allergies Allergies and Active Meds: Allergies acetaminophen [Ariton] Allergy (Unknown, Verified 10/31/22 10:45) Itchy cyclobenzaprine [Flexeril] Allergy (Unknown, Verified 10/31/22 10:45) Itchy hydrocodone [Ariton] Allergy (Unknown, Verified 10/31/22 10:45) Itchy hydrochlorothiazide [...] mg 11/06/23 17:07 Bisacodyl 10 Mg Supp.Rect CO 11/05/24 17:06 DAILY PRN Constipation Docusate Sodium 100 mg 11/06/23 21:00 11/12/23 09:34 Docusate 100 Mg Capsule PO 11/05/24 20:59 Not Given BID YASMANY Docusate Sodium 100 mg 11/06/23 17:07 Docusate 100 Mg Capsule PO 11/05/24 17:06 BID PRN Constipation Docusate Sodium 283 mg 11/06/23 17:07 Docusate Enema 283 Mg/5 Ml Enema CO 11/05/24 17:06 DAILY PRN Constipation Duloxetine HCl [...] 11/07/23 09:00 11/12/23 09:33 Pantoprazole 40 Mg Tablet. PO 11/06/24 08:59 [...] equipment to enhance the patient's a functional mosque Ensure adequate nutrition and hydration Sleep Discharge planning. I spent 20 minutes for services, including rslv-cs-bzvv encounter with the patient, discussion of the case, plan of care, and exam; and mpwbhgo-vo-upwi activities, such as reviewing pertinent consumer experience consultant documentation, recent therapy notes, laboratory and radiology studies, and discussion of case with care team including physician, nursing, correctional case manager, and therapists. More than 50 % of time was spent on patient/family counseling or coordination of care. <Statement entered by Jonny Bentley MD - 11/13/23 09:19> This documentation has been reviewed and approved. I reviewed the history and the relevant portions of the chart, including current orders, allied health and consumer experience consultant notes, labs/imaging and plan of care as above. Documented By: Mone Brennan APRN 11/12/23 1 139 Signed By: <Electronically signed by YULISA Brennan> 11/12/23 1145 <Electronically signed by Jonny Bentley MD> 11/13/23 0920 [facility] Work Phone: 1(340) 265-704108-31-2024 Progress note Author Jonny Bentley [facility] November 10, 2023 5:34pm Note Date/Time November 09, 2023 12 :40pm [facility] [address] [place] [address] Physiatry(Rehab) Progress Note Signed Patient: Navdeep Palma MR#: [id number] : 1975 Acct:[id number] Age/Sex: 48 / F Adm Date: 4 Loc: 5T Room: 2S9444-9 Type: ADM IN Attending Dr: Jonny Bentley MD Copies to: ~ Date of Service: 11/09/2023 Subjective Subjective Narrative: Ms. Palma is a 48 year old female with multiple comorbidities including systemiclupus erythematosus, morbid obesity, HTN, HLD, prediabetes who presents to acuteinpatient rehabilitation unit with functional impairments in the setting of lefttotal knee arthroplasty. Patient reports severe osteoarthritis of the joint with rkuo-cz-kghi resultingin significant discomfort and difficulty with mobility she failed multimodality conservative treatment. Presented to [facility] for an elective knee replacement on 10/30. [...] years to have been discontinued while at [facility]. Per the patient her most recent A1c [...] patient's symptoms. May need to contact patient's batchmaker for recommendations if her symptoms worsen. A1c and fasting glucose levels reviewed. I will reinitiate patient on [id number] mg twice daily. She is aware and [...] Allergies Allergies and Active Meds: Allergies acetaminophen [Ariton] Allergy (Unknown, Verified 10/31/22 10:45) Itchy cyclobenzaprine [Flexeril] Allergy (Unknown, Verified 10/31/22 10:45) Itchy hydrocodone [Ariton] Allergy (Unknown, Verified 10/31/22 10:45) Itchy hydrochlorothiazide [...] mg 11/06/23 17:07 Bisacodyl 10 Mg Supp.Rect CO 11/05/24 17:06 DAILY PRN Constipation Docusate Sodium 100 mg 11/06/23 21:00 11/09/23 09:07 Docusate 100 Mg Capsule PO 11/05/24 20:59 100 mg BID YASMANY Administration Docusate Sodium 100 mg 11/06/23 17:07 Docusate 100 Mg Capsule PO 11/05/24 17:06 BID PRN Constipation Docusate Sodium 283 mg 11/06/23 17:07 Docusate Enema 283 Mg/5 Ml Enema CO 11/05/24 17:06 DAILY PRN Constipation Duloxetine HCl [...] 11/07/23 09:00 11/09/23 09:07 Pantoprazole 40 Mg Tablet.Dr PO 11/06/24 08:59 [...] equipment to enhance the patient's a functional mosque Ensure adequate nutrition and hydration Sleep Discharge planning. I spent 23 minutes for services, including vjxi-ft-wptm encounter with the patient, discussion of the case, plan of care, and exam; and wgiacih-yv-whcl activities, such as reviewing pertinent consumer experience consultant documentation, recent therapy notes, laboratory and radiology studies, and discussion of case with care team including physician, nursing, correctional case manager, and therapists. More than 50 % of time was spent on patient/family counseling or coordination of care. <Statement entered by Jonny Bentley MD - 11/10/23 17:34> This documentation has been reviewed and approved. I reviewed the history and the relevant portions of the chart, including current orders, allied health and consumer experience consultant notes, labs/imaging and plan of care as above. Documented By: Mone Brennan APRN 11/09/23 1 231 Signed By: <Electronically signed by YULISA Brennan> 11/09/23 1240 <Electronically signed by Jonny Bentley MD> 11/10/23 5298 [facility] Work Phone: 1([phone]) 905-732508-29-2024 Progress note Author Jonny Bentley [facility] November 08, 2023 12:10pm Note Date/Time November 08, 2023 12 :08pm [facility] [address] [place] [address] Physiatry(Rehab) Progress Note Signed Patient: Navdeep Palma MR#: [id number] : 1975 Acct:[id number] Age/Sex: 48 / F Adm Date: 4 Loc: Room: 3T1939-1 Type: ADM IN Attending Dr: Jonny Bentley MD Copies to: ~ Date of Service: 11/08/2023 Subjective Subjective Narrative: Ms. Palma is a 48 year old female with multiple comorbidities including systemiclupus erythematosus, morbid obesity, HTN, HLD, prediabetes who presents to acuteinpatient rehabilitation unit with functional impairments in the setting of lefttotal knee arthroplasty. Patient reports severe osteoarthritis of the joint with kpwd-[id number] resultingin significant discomfort and difficulty with mobility she failed multimodality conservative treatment. Presented to [facility] for an elective knee replacement on 10/30. [...] years to have been discontinued while at [facility]. Per the patient her most recent A1c [...] Allergies Allergies and Active Meds: Allergies acetaminophen [Ariton] Allergy (Unknown, Verified 10/31/22 10:45) Itchy cyclobenzaprine [Flexeril] Allergy (Unknown, Verified 10/31/22 10:45) Itchy hydrocodone [Ariton] Allergy (Unknown, Verified 10/31/22 10:45) Itchy hydrochlorothiazide [...] mg 11/06/23 17:07 Bisacodyl 10 Mg Supp.Rect CO 11/05/24 17:06 DAILY PRN Constipation Docusate Sodium 100 mg 11/06/23 21:00 11/08/23 07:56 Docusate 100 Mg Capsule PO 11/05/24 20:59 100 mg BID YASMANY Administration Docusate Sodium 100 mg 11/06/23 17:07 Docusate 100 Mg Capsule PO 11/05/24 17:06 BID PRN Constipation Docusate Sodium 283 mg 11/06/23 17:07 Docusate Enema 283 Mg/5 Ml Enema CO 11/05/24 17:06 DAILY PRN Constipation Duloxetine HCl [...] 11/07/23 09:00 11/08/23 07:56 Pantoprazole 40 Mg Tablet. PO 11/06/24 08:59 [...] equipment to enhance the patient's a functional mosque Ensure adequate nutrition and hydration Sleep Discharge planning. Patient was personally seen by me, Dr. Bentley, on the day of encounter, reviewed the history and the relevant portions of the chart, including current orders, allied health and consumer experience consultant notes, labs/imaging and performed humphries elements of exam and I formulated the plan of care and facilitated the medical decision making. I completed a substantive portion of this encounter, the medical decision making portion of this note in its entirety, including Allied health note review, nursing note review, consumer experience consultant note review, discussion with nursing and case management, and more than 50% of my time was spent on counseling and coordination of care, time spent 25 minutes Documented By: Jonny Bentley MD 1206 Signed By: <Electronically signed by Jonny Bentley MD> 11/08/23 1210 [facility] Work Phone: 1([phone]) 765-201208-28-2024 History and physical note Author Jonny Bentley [facility] November 07, 2023 2:37pm Note Date/Time November 07, 2023 11 :54am [facility] [address] [place] [address] Physiatry (Rehab) H&P Signed Patient: Navdeep Palma MR#: [id number] : 1975 Acct:[id number] Age/Sex: 48 / F Adm Date: 4 Loc: Room: [address] [place] [address] Type: ADM IN Attending Dr: Jonny Bentley MD Copies to: MD Mone Esqueda APRN Laura Anglim, APRN, CUSTOMS ENTRY WRITER~ Date of Service: 11/07/2023 HPI The patient was seen and examined on: 11/07/23 History of Present Illness: Ms. Palma is a 48 year old female with multiple comorbidities including systemiclupus erythematosus, morbid obesity, HTN, HLD, prediabetes who presents to acuteinpatient rehabilitation unit with functional impairments in the setting of lefttotal knee arthroplasty. Patient reports severe osteoarthritis of the joint with [id number] resultingin significant discomfort and difficulty with mobility she failed multimodality conservative treatment. Presented to [facility] for an elective knee replacement on 10/30. [...] years to have been discontinued while at [facility]. Per the patient her most recent A1c level was 6.4. I will check her A1c tomorrow a.m.; start daily blood glucose checks, she is also on prednisone at this time. Will adjust the regimen based on lab results. COUNTS INCLUDE 234 BEDS AT THE [facility] Medical History (Updated 11/07/23 @ 12:34 by Mone Brennan APRN) Sleep apnea Granulomatosis Arthritis Fibromyalgia Lupus Hypertension Neuropathy Problem List clean-up per request of Phys. EHR Cmte Scoliosis Problem List clean-up per request of Phys. EHR Cmte Asthma Problem List clean-up per request of Phys. EHR Cmte Migraines Problem List clean-up per request of Phys. EHR Cmte SLE (systemic lupus erythematosus) Problem List clean-up per request of Phys. [facility] Surgical History (Updated 02/21/23 @ 14:04 by PredPol Tx) History of lymph node biopsy Left [id number] Problem List clean-up per request of Phys. [facility]HR [facility] History of bariatric surgery Gastric sleeve 2016 Problem List clean-up per request of Phys. EHR [facility] History of tubal ligation Tubes removed Problem List clean-up per request of Phys. EHR Cmte S/P ALEKSANDAR (total abdominal hysterectomy) Problem List clean-up per request of Phys. [facility]HR [facility] Family History (Updated 02/28/19 @ 16:46 by Gregor Huang RN) Brother Pulmonary disease Brother Neurological abnormality Mother Pancreatic cancer Lung cancer Mother Cancer Legacy FamHx Problem: Diagnosed with Cancer Social History Smoking Status: Never smoker Substance Use Type: None Meds Medications and Allergies Allergies acetaminophen [Ariton] Allergy (Unknown, Verified 10/31/22 10:45) Itchy cyclobenzaprine [Flexeril] Allergy (Unknown, Verified 10/31/22 10:45) Itchy hydrocodone [Ariton] Allergy (Unknown, Verified 10/31/22 10:45) Itchy hydrochlorothiazide [...] PRN muscle spasm 11/06/23 [History Confirmed 11/06/23] [id number]-yzzxtxonwkfen-eciipkdc 50 mg-300 mg-40 mg capsule (Fioricet) 1 [...] 10 Mg Tablet) 10 mg PO DAILY [facility] Stop: 11/06/24 08:59 Last Admin: 11/07/23 09:19 Dose: 10 mg Ascorbic Acid (Ascorbic Acid 500 Mg Tablet) 500 mg PO DAILY [facility] Stop: 11/06/24 08:59 Last Admin: 11/07/23 09:19 Dose: 500 mg Aspirin (Aspirin 325 Mg Tablet) 325 mg PO BID YASMANY Stop: 11/05/24 20:59 Last Admin: 11/07/23 09:19 Dose: 325 mg Azathioprine (Azathioprine 50 Mg Tablet) 100 mg PO BID [facility] Stop: 11/05/24 22:59 Last Admin: 11/07/23 10:18 Dose: 100 mg Baclofen (Baclofen 10 Mg Tablet) 10 mg PO DAILY PRN PRN Reason: muscle spasm Stop: 11/05/24 17:04 Last Admin: 11/06/23 22:06 Dose: 10 mg Bisacodyl (Bisacodyl 10 Mg Supp.Rect) 10 mg CO DAILY PRN PRN Reason: Constipation Stop: 11/05/24 17:06 Docusate Sodium (Docusate 100 Mg Capsule) 100 mg PO BID [facility] Stop: 11/05/24 20:59 Last Admin: 11/07/23 09:19 Dose: 100 mg Docusate Sodium (Docusate 100 Mg Capsule) 100 mg PO BID PRN PRN Reason: Constipation Stop: 11/05/24 17:06 Docusate Sodium (Docusate Enema 283 Mg/5 Ml Enema) 283 mg CO DAILY PRN PRN Reason: Constipation Stop: 11/05/24 17:06 Duloxetine HCl (Duloxetine 60 Mg Capsule.Dr) 60 mg PO HS [facility] Stop: 11/05/24 22:29 Last Admin: 11/06/23 23:17 Dose: 60 mg Hydroxyzine Pamoate (Hydroxyzine Pamoate 50 Mg Capsule) 50 mg PO TID [facility] Stop: 11/05/24 21:59 Last Admin: 11/07/23 09:19 Dose: 50 mg Lactulose (Lactulose 20 Gm/30 Ml Udc) 30 gm PO DAILY PRN PRN Reason: Constipation Stop: 11/05/24 17:06 Losartan Potassium (Losartan 25 Mg Tablet) 25 mg PO [facility] Stop: 11/05/24 22:29 Last Admin: 11/06/23 23:17 Dose: 25 mg Magnesium Oxide (Magnesium Oxide 400 Mg Tablet) 400 mg PO DAILY [facility] Stop: 11/06/24 08:59 Last Admin: 11/07/23 09:19 Dose: 400 mg Montelukast Sodium (Montelukast 10 Mg Tablet) 10 mg PO DAILY [facility] Stop: 11/06/24 08:59 Last Admin: 11/07/23 09:19 Dose: 10 mg Multivitamins (Multivitamin 1 Tab Tablet) 1 tab PO DAILY [facility] Stop: 11/06/24 08:59 Last Admin: 11/07/23 [...] 10 mg Pantoprazole Sodium (Pantoprazole 40 Mg Tablet.) 40 mg PO DAILY [facility] Stop: 11/06/24 08:59 Last Admin: 11/07/23 09:19 Dose: 40 mg Prednisone (Prednisone 20 Mg Tablet) 20 mg PO DAILY [facility] Stop: 11/06/24 08:59 Last Admin: 11/07/23 09:19 Dose: 20 mg Sennosides (Sennosides 8.6 Mg Tablet) 2 tab PO DAILY@12 PRN PRN Reason: If no BM in 2 days Stop: 11/06/24 11:59 Sodium Chloride (Sodium Chloride 0.9 % 10 Ml Syringe) 0 ml IV-PUSH PRN PRN PRN Reason: Flush Stop: 11/05/24 17:06 Topiramate (Topiramate 50 Mg Tablet) 50 mg PO HS [facility] Stop: 11/05/24 22:29 Last Admin: 11/06/23 [...] % (Auto) 55.8 Lymph % (Auto) 30.0 [place] % (Auto) 12.2 Eos % (Auto) 1.5 Baso % (Auto) 0.5 Nucleat RBC Rel Count 0.3 Neut # (Auto) 2.8 Lymph # (Auto) 1.5 [place] # (Auto) 0.6 Eos # (Auto) 0.1 [...] 24 hour daily monitoring and intervention from [employer] Salesperson as well as other consulting physicians including internal medicine as well as 24 hour daily wax ball knock out worker nursing - for medical safe / optimal [...] equipment to enhance the patient's a functional mosque Ensure adequate nutrition and hydration Sleep Discharge planning. I spent 47 minutes for services, including jydh-th-uhsh encounter with the patient, discussion of the case, plan of care, and exam; and [id number] activities, such as reviewing pertinent consumer experience consultant documentation, recent therapynotes, laboratory and radiology studies, and discussion of case with care team including physician, nursing, correctional case manager, and therapists. More than 50 % of time was spent on patient/family counseling or coordination ofcare. Patient was personally seen by me, Dr. Bentley, on the day of encounter, within 24 hours of rehab admission, reviewed the history and the relevant portions of the chart, including current orders, allied health and consumer experience consultant notes, labs/imaging and performed humphries elements of exam and I formulated the planof care and facilitated the medical decision making. I completed a substantive portion of this encounter, the medical decision makingportion of this note in its entirety, including Allied health note review, nursing note review, consumer experience consultant note review, discussion with nursing and [...] signed by Jonny Bentley MD> 11/07/23 1437 [facility] Work Phone: 1(483) 771-461108-27-2024 NoteOccupational Therapy Occupational Therapy Treatment Patient Name: [...] Eating meals?: None (Independent) Total Score OT [facility]: 17 Assessment/Plan OT Assessment OT Impairments: Decreased ADL status, Decreased safe judgment during ADL, Decreased endurance, Decreased functional mobility, Decreased IADLs OT Assessment/DEEDEE Summary: Pt would benefit from continued skilled occupational therapy to maximize level of indepednence in basic ADLs. Prognosis: Good Evaluation/Treatment Tolerance: Patient limited by fatigue, Patient limited by pain Medic (more content not included)...[facility] 11-06-2023 Note Attestation signed by Lyssa Park [...] White MD Orthopaedic Surgery, PGY-4 Ortho Pager [phone] 11/06/23 8:01 AM[facility]08-27-2024 Note11/06/23 0740 Post Acute Info Authorization started for Inpatient Rehab Hospital (62) Facility name [facility] When was authorization started? 11/02/23 What time was authorization started? 1450 Determination Approved OTM staff notified Edie Lenz When was authorization received? 11/05/23 What time was authorization received? 1545 When does authorization ? 11/11/23 Approval number ([id number]) Peer to Peer requested Yes Denial overturned after Peer to Peer Yes How are we submitting authorization Website Portal What insurance are we submitting through [employer] Approved authorization after P2P to [facility], OTM notified.[facility]08-26-2024 NotePhysical Therapy Physical Therapy Treatment Patient Name: Domingo Palma : 1975 Today's Date: 11/05/2023 Patient Active Problem List Diagnosis Weakness Asthma Essential hypertension Granulomatous lymphadenitis Migraine Morbid obesity with body mass index of 50 or higher ([facility]) 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 lupus erythematosus encephalitis ([facility]) Spondylosis without myelopathy or radiculopathy, lumbar region [...] Stand, Toilet Transfer Belem (more content not included)...[facility] 11-05-2023 Note Attestation signed by Lyssa Park [...] desaturation/medical management postop. Plan DC today to [facility] Sunday/. Heather White MD Orthopaedic Surgery, PGY-4 Ortho Pager [phone] 11/05/23 6:19 [facility]08-25-2024 NotePhysical Therapy Physical Therapy Treatment Patient Name: [...] on, and RN aware. PT Assessment PT Assessment/TANGIBLE PERSONAL PROPERTY APPRAISER Summary Pt motivated to progress, however, remains [...] to a chair ( (more content not included)...[facility]08-25-2024 Note Attestation signed by Lyssa Prak MD at 11/05/2023 5:33 AM Care was [...] White MD Orthopaedic Surgery, PGY-4 Ortho Pager [phone] 11/04/23 7:37 AMUnUniversity [facility]als [facility]08-24-2024 Note11/03/23 0911 Referral Data Referral Source log chain worker Referral Reason Follow up;Information;Placement Patient Information Primary Caregiver Self Activities of Daily Living Assistive Device Not applicable Living Arrangement (Current/Prior to Hospitalization) Private residence (with fiance) Ambulation Independent Dressing Independent Feeding Independent Behavior Oriented Communication Talks;Understands speaking;Understands Burkinan Discharge Planning Support Systems Spouse/significant other;Children Type of Residence Inpatient rehab facility Will patient need Precert for Post Acute needs? Yes Patient's goal for discharge [facility] Does the patient need discharge transport arranged? Yes Screened by [facility]. PT/OT recommends inpt rehab. [facility] OTM burglar alarm assembler started precert yesterday.[facility]08-24-2024 Note Attestation signed by Lyssa Park MD [...] White MD Orthopaedic Surgery, PGY-4 Ortho Pager [phone] 11/03/23 8:09 [facility]08-23-2024 NoteOccupational Therapy Treatment Note Patient Name: Domingo [...] spine without myelopathy Systemic lupus erythematosus encephalitis (CMS/[facility]) Spondylosis without myelopathy or radiculopathy, lumbar region [...] time. Pt expressed concern about going to [facility] and asked to speak with SW, SW [...] chair sink side, no assistive device Comments: Demo'd brushing teeth without difficulty once set up [...] chair Functional Ambulation: Demo'd (more content not included)...[facility]08-23-2024 Note11/02/23 1450 Post Acute Info Authorization started for Inpatient Rehab Hospital (62) Facility name [facility] When was authorization started? 11/02/23 What time was authorization started? 1450 Reference number for submission ([id number]) How are we submitting authorization Website Portal What insurance are we submitting through [employer] Submitted precert request for [facility] EFRAIN ARROYO to follow.[facility]08-23-2024 Note Attestation signed by Kim Stafford MD [...] Palma Age - 48 y.o. - 1975 [id number] Date of Admission - 10/31/2023 6:41 AM [...] , ABGPO2 , ABGHCO3 , ABGBASEDEFIC , [id number] , ABGOXYGENSOU No lab exists for component: [...] Smith MD. PGY3, Internal Medicine Residency Program [facility] Preferred contact methods: BlackStratus Chat GIM consult pagerUniversity of Childress [facility]08-23-2024 NotePhysical Therapy Physical Therapy Treatment Patient Name: Domingo Palma : 1975 Today's Date: 11/02/2023 Patient Active Problem List Diagnosis Weakness Asthma Essential hypertension Granulomatous lymphadenitis Migraine Morbid obesity with body mass index of 50 or higher ([facility]) 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 lupus erythematosus encephalitis ([facility]) Spondylosis without myelopathy or radiculopathy, lumbar region [...] from another person tao (more content not included)...[facility]08-23-2024 Note Attestation signed by Lyssa Park MD [...] Component Value Date INR 1.02 10/22/2023 Imaging: @[id number]@ ASSESSMENT: Domingo Palma is a 48 y.o. [...] White MD Orthopaedic Surgery, PGY-4 Ortho Pager [phone] 11/02/23 6:01 AM I am available via [employer] 6a-6p. 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 Used RW a (more content not included)...[facility]08-22-2024 Note Attestation signed by Kim Stafford MD [...] , ABGPO2 , ABGHCO3 , ABGBASEDEFIC , [id number] , ABGOXYGENSOU No lab exists for component: [...] Smith MD. PGY3, Internal Medicine Residency Program [facility] Preferred contact methods: Epic Chat GIM consult pagerUniversity [facility]08-22-2024 NotePhysical Therapy Physical Therapy Treatment Patient Name: Domingo Palma : 1975 Today's Date: 11/01/2023 Patient Active Problem List Diagnosis Weakness Asthma Essential hypertension Granulomatous lymphadenitis Migraine Morbid obesity with body mass index of 50 or higher (CMS/HCC) 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 lupus erythematosus encephalitis ([facility]) Spondylosis without myelopathy or radiculopathy, lumbar region [...] noted in sitting ed (more content not included)...[facility]08-22-2024 Note9:25- DME referral recieved. 10:10-SW informed by [facility] that patient wants [facility] and has no preference and is agreeable to a mass referral. SW sent referrals-await response. OTM will continue to follow.[facility]08-22-2024 Note 11/01/23 1013 Admission Assessment Questions Verify insurance with patient Yes Do you understand medical disease or what brought you into the hospital? Yes Who is your current PCP? Bong Yee Can I schedule a follow up appointment for you at the time of discharge? Yes Do you understand why you are taking your current medications? Yes Are you taking your medications as prescribed? Yes Did patient provide teach back? Yes Pharmacy Bedside Delivery Status Interested Does the patient have a medical case manager assigned to them through their insurance? No Living Arrangement (Current/Prior to Hospitalization) Private residence Does the patient have history of HHC or SNF? No Assistive Device Not applicable Patient's goal for discharge return home with fiance Was patient reminded that goal for discharge is 11am? Yes Does the patient have transportation at discharge? Yes (daughter or gabrielae) Type of Residence Private residence Is PT/OT appropriate? Yes Is PT/OT ordered? Yes Is SW consult appropriate? Yes Is SW consult ordered? Yes Do you understand the benefits of MyChart? Yes Were you able to send link and activate Pathfirehart? MyChart already active [facility]08-22-2024 Note8:30-SW sent DME referral to [facility]-await response. OTM will continue to follow.[facility]08-22-2024 Note Attestation signed by Lyssa Park MD [...] Component Value Date INR 1.02 10/22/2023 Imaging: @[id number]@ ASSESSMENT: Domnigo Palma is a 48 y.o. female with [...] White MD Orthopaedic Surgery, PGY-4 Ortho Pager [phone] 11/01/23 8:01 AM I am available via [employer] 6a-6p. May contact the on-call resident with any concerns via the Orthopaedic pager at any time.[facility]08-21-2024 NotePhysical Therapy Physical Therapy Evaluation Patient Name: [...] excess calories without serious comorbidity in adult ([facility]/H[facility]) Morbid obesity with body mass index of 50 or higher ([facility]) Right anterior knee pain 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 lupus erythematosus encephalitis ([facility]) Lupus erythematosus Spondylosis without myelopathy or radiculopathy, 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 Primary osteoarthritis of left knee SOPHIE (obstructive sleep apnea) Status post total knee replacement using cement, left S/P total knee arthroplasty, left Past Medical History: Diagnosis Date Arthritis CPAP (continuous positive airway pressure) dependence Fibromyalgia, primary Hypertension Left knee pain Lupus (systemic lupus erythematosus) ([facility]) Migraine Obesity BMI 54.55 Osteoarthritis Sleep apnea [...] Level of Function Prior Function Level of [place]: Independent with ADLs and functional transfers, Independent [...] on supplemental O2. General (more content not included)...[facility] 10-31-2023 NoteOccupational Therapy Occupational Therapy Evaluation Patient [...] excess calories without serious comorbidity in adult ([facility]) Morbid obesity with body mass index of 50 or higher ([facility]) Right anterior knee pain 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 lupus erythematosus encephalitis ([facility]) Lupus erythematosus Spondylosis without myelopathy or radiculopathy, 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 Primary osteoarthritis of left knee SOPHIE (obstructive sleep apnea) Status post total knee replacement using cement, left S/P total knee arthroplasty, left Past Medical History: Diagnosis Date Arthritis CPAP (continuous positive airway pressure) dependence Fibromyalgia, primary Hypertension Left knee pain Lupus (systemic lupus erythematosus) ([facility]) Migraine Obesity BMI 54.55 Osteoarthritis Sleep apnea [...] Level of Function Prior Function Level of [place]: Independent with ADLs and functional transfers, Independent [...] Objective General Assessments A (more content not included)...[facility]08-21-2024 NotePatient: Domingo Palma Procedure Summary Date: 10/31/23 Room / Location: [facility] OPERATING ROOM 02 / [facility] Operating Room Anesthesia Start: 823 Anesthesia Stop: 1102 Procedure: ARTHROPLASTY, KNEE, TOTAL (Left: Knee) Diagnosis: Primary osteoarthritis of left knee 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, unspecified whether serious comorbidity present (CMS/HCC) Genu varum of left lower extremity Osteopenia, [...] were no known notable events for this encounter.[facility]08-21-2024 NoteOccupational Therapy Ot Check no charge Name: [...] No Charge Time attempted: 1330 Simone OTR/L, [facility]08-21-2024 NoteAirway Date/Time: 10/31/2023 8:55 AM Urgency: elective Airway not difficult General Information and Staff Patient location during procedure: OR Anesthesiologist: Zane Barfield MD Resident/CAMPAIGN WORKER/CAA: KIMI Potts Performed: resident/CAMPAIGN WORKER/CAA Indications and Patient Condition Indications for airway [...] approach: 1 Number of other approaches attempted: 0[facility] 10-31-2023 NotePeripheral Block Patient location during procedure: pre-op Start time: 10/31/2023 8:08 AM End time: 10/31/2023 8:23 AM Reason for block: at surgeon's request and post-op pain management Staffing Performed: resident/CAMPAIGN WORKER/CAA and anesthesiologist Anesthesiologist: Zane Barfield MD Resident/CAMPAIGN WORKER: Guero Luther MD Preanesthetic Checklist Completed: patient [...] Heart rate change: no Slow fractionated injection: yesUnUniversity Hospitals Elyria Medical Center08-21-2024 NotePatient: Domingo Palma Procedure Information Date/Time: 10/31/23829 Procedure: ARTHROPLASTY, KNEE, TOTAL (Left: Knee) - LILIANE NOTIFIED 10/21 GRADY Location: [facility] OPERATING ROOM 02 / [facility] Operating Room Surgeons: Lyssa Park MD Relevant [...] discussed with resident and CAA. Additional Equipment RequestsRegency Hospital Company08-20-2024 History of Present illness Narrative* Gina Bourgeois APRN-AMBROSIO - 10/30/2023 10:30 AM EDT [facility] [address] [place] [address] Patient: Navdeep Palma Sex: female : 1975 Age: 48 y.o. PCP: Bong Yee APRN-CUSTOMS ENTRY WRITER 10/30/2023 Navdeep Palma is here for a(n) [...] duration: see above Pain scale after treatment: 10 Chief Complaint Patient presents with Knee Pain [...] 08/25/2022 Performed by Albert Jones MD at [facility] INJECTION BLOCK NERVE KNEE right genicular Right 05/16/2021 Performed by Albert Jones MD at [facility] JOINT REPLACEMENT Right 02/09/2021 LYMPH NODE DISSECTION bilateral axillae x2 OOPHORECTOMY Bilateral 2008 RADIO FREQUENCY ABLATION L 4/5,5/S1 Left 08/04/2016 Performed by Albert Jones MD at [facility] RADIO FREQUENCY ABLATION L4/5,5/S1 Right 08/21/2016 Performed by Albert Jones MD at [facility] TOTAL KNEE Right 2020 TUBAL LIGATION x2 Allergies Allergen Reactions Ariton [Hydrocodone-Acetaminophen] Itching and Headache Cyclobenzaprine Headache and [...] Interpersonal Safety: Unknown (05/03/2023) Received from [facility], [facility] [place] Safety & Environment Fear of Current [...] Scribed for and in the presence of GINA BOURGEOIS APRN- AMBROSIO by Jessica Ann RN. Provider Statement: I, JILL ARITA, personally performed the services described in the documentation, as scribed by Jessica Ann RN in my presence, and it is both accurate and complete. Jessica Ann RN 10/30/23 1226 JILL Arita 10/30/23 6092 documented in this encounterOhioHealth Van Wert [facility]08-12-2024 NotePatient ID: Domingo Palma is a 48 [...] currently weightbearing as tolerated. Current treatments are zaai-jsx-thjomas ibuprofen and Tylenol, ice, rest, elevation, bracing, [...] the knee joint with posterolateral subluxation. Where: [facility] Date: 07/23/2023 x-ray left knee(s) : Complete [...] left primary cemented total knee arthroplasty using [place] implants were discussed at length with the [...] length with the patient (more content not included)...[facility]08-12-2024 NoteOrthopedic Surgery Subjective Chief complaint: Chief Complaint [...] Left knee pain Lupus (systemic lupus erythematosus) ([facility]) Migraine Obesity BMI 54.55 Osteoarthritis Sleep apnea [...] from me. Dr. Lyssa Park MD MRCSEd Packing And Wrapping Supervisor orthopedic surgery Adult Reconstruction and Trauma [facility] 10-15-2023 NoteOhConnecticut Hospice is not in network with [employer] [place] Medicaid. [facility]08-05-2024 NoteI spoke with the patient [...] seat and rolling walker. She would like [facility] but does not have a preference. I will send a referral to [facility]07-18-2024 History of Present illness Narrative* Jordyn Moreira [...] knee Pre-operative cardiovascular examination BMI 50.0-59.9, adult ([facility]) Allergies Allergen Reactions Ariton [Hydrocodone-Acetaminophen] Itching and Headache Cyclobenzaprine Headache and [...] Low back pain Lupus (systemic lupus erythematosus) ([facility]) Migraine Murmur, cardiac Obesity Osteoarthritis Osteoarthritis Pneumonia Sleep apnea Tooth loose Upper back pain Past Surgical History: Procedure Laterality Date SECTION three ECTOPIC SURGERY two GASTRECTOMY sleeve HYSTERECTOMY 2008 COMPLETE INJECTION BLOCK NERVE KNEE Left Genicular Left 08/25/2022 Performed by Albert Jones MD at [facility] INJECTION BLOCK NERVE KNEE right genicular Right 05/16/2021 Performed by Albert Jones MD at [facility] JOINT REPLACEMENT Right 02/09/2021 LYMPH NODE DISSECTION bilateral axillae x2 OOPHORECTOMY Bilateral 2008 RADIO FREQUENCY ABLATION L 4/5,5/S1 Left 08/04/2016 Performed by Albert Jones MD at [facility] RADIO FREQUENCY ABLATION L4/5,5/S1 Right 08/21/2016 Performed by Albert Jones MD at [facility] TOTAL KNEE Right 2020 TUBAL [...] Interpersonal Safety: Unknown (05/03/2023) Received from [facility], [facility] [place] Safety & Environment Fear of Current [...] Therapy completed IMPRESSIONS/PLAN 1. Pre-operative clearance - [facility] [place], [place] - POCT EKG 2. Abnormal EKG - [facility] [place], [place] - POCT EKG 3. Pre-operative cardiovascular [...] Bower Referring Physician: JILL Bower [address] [place] [address] documented in this [facility]07-18-2024 Instructions* Patient Instructions* Jordyn Moreira MD - [...] or less than 50. documented in this [facility]07-18-2024 Miscellaneous Notes* Addendum Note - Jordyn Moreira MD - 09/27/2023 3:30 PM EDTAddended by: JORDYN MOREIRA on: 09/27/2023 04:26 PM Modules accepted: Orders * Addendum Note - Jordyn Moreira MD - 09/27/2023 3:30 PM EDTAddended by: JORDYN MOREIRA on: 09/27/2023 04:29 PM Modules accepted: Orders documented in this [facility]07-18-2024 Note* Addendum Note - Jordyn Moreira MD - 09/27/2023 3:30 PM EDTAddended by: JORDYN MOREIRA on: 09/27/2023 04:26 PM Modules accepted: Orders [facility]07-18-2024 Note* Addendum Note - Jordyn Moreira MD - 09/27/2023 3:30 PM EDTAddended by: JORDYN MOREIRA on: 09/27/2023 04:29 PM Modules accepted: Orders [facility]07-17-2024 Miscellaneous Notes* Telephone Encounter - Zena Mireles CMA - 09/26/2023 10:15 AM EDT Called patient to remind them to bring their most current copy of their medication list with them to their appt. Patient verbalizes understanding. documented in this encounterOhioHealth Van Wert [facility]07-17-2024 Telephone encounter Note* Telephone Encounter - Zena Mireles CMA - 09/26/2023 10:15 AM EDT Called patient to remind them to bring their most current copy of their medication list with them to their appt. Patient verbalizes understanding. [facility]07-01-2024 Miscellaneous Notes* Telephone Encounter - Candace Marcano - 09/10/2023 4:40 PM EDT Patient called requesting refill on Oxycodone and would like prescription for Prednisone 20mg sent to [facility] pharmacy on [address]. Please advise. documented in this encounterOhioHealth Van Wert Hospital07-01-2024 Telephone encounter Note* Telephone Encounter - Candace Mare CortezKrys - 09/10/2023 4:40 PM EDT Patient called requesting refill on Oxycodone and would like prescription for Prednisone 20mg sent to [facility] pharmacy on [address]. Please advise. [facility]06-06-20[facility] History of Present illness Narrative* Bong Yee, ASSISTANT SHIFT SUPERVISOR-CUSTOMS ENTRY WRITER - 08/16/2023 2:00 PM EDT Images from the original note were not included. [facility] [address] [place] [id number] Name: Navdeep Palma : 1975 CHIEF COMPLAINT [...] and vaginal swab. ALLERGIES Allergies Allergen Reactions Ariton [Hydrocodone-Acetaminophen] Itching and Headache Cyclobenzaprine Headache and [...] Low back pain Lupus (systemic lupus erythematosus) ([facility]) Migraine Murmur, cardiac Obesity Osteoarthritis Osteoarthritis Pneumonia Sleep apnea Tooth loose Upper back pain Past Surgical History: Procedure Laterality Date SECTION three ECTOPIC SURGERY two GASTRECTOMY sleeve HYSTERECTOMY 2009 COMPLETE INJECTION BLOCK NERVE KNEE Left Genicular Left 08/25/2022 Performed by Albert Jones MD at [facility] INJECTION BLOCK NERVE KNEE right genicular Right 05/16/2021 Performed by Albert Jones MD at [facility] JOINT REPLACEMENT Right 02/09/2021 LYMPH NODE DISSECTION bilateral axillae x2 OOPHORECTOMY Bilateral 2009 RADIO FREQUENCY ABLATION L 4/5,5/S1 Left 08/04/2016 Performed by Albert Jones MD at [facility] RADIO FREQUENCY ABLATION L4/5,5/S1 Right 08/21/2016 Performed by Albert Jones MD at [facility] REPLACEMENT TOTAL KNEE Right 2020 TUBAL LIGATION [...] of Transportation (Non-Medical): No Received from [facility] [place] Safety & Environment Housing Instability: Low [...] the office with any questions or concerns. Bong Yee APRN, LEDGER POSTER-C JILL Bower 08/21/23 1550 documented in this encounterOhioHealth Doctors HospitalSpinalMotion [facility] Joy [id number] History of Present illness Narrative* Michael Stephens MD - 08/02/2023 9:30 AM EDT Orthopaedic Surgery Outpatient Visit Note Encounter Date: 08/02/2023 Patient: Navdeep Palma 1975 PCP JILL Bower CC: Chief Complaint Patient presents with Left Knee - Pain Wash Tank Tender left knee pain had treatments HPI: Navdeep Palma is a 47 y.o. female. This is a patient who had a previous right knee replacement doing very well. She had this at [facility]. She feels like she had a little [...] Low back pain Lupus (systemic lupus erythematosus) ([facility]) Migraine Murmur, cardiac Obesity Osteoarthritis Osteoarthritis Pneumonia Sleep apnea Tooth loose Upper back pain Past Surgical History: Procedure Laterality Date SECTION three ECTOPIC SURGERY two GASTRECTOMY sleeve HYSTERECTOMY 2008 COMPLETE INJECTION BLOCK NERVE KNEE Left Genicular Left 08/25/2022 Performed by Albert Jones MD at [facility] INJECTION BLOCK NERVE KNEE right genicular Right 05/16/2021 Performed by Albert Jones MD at [facility] JOINT REPLACEMENT Right 02/09/2021 LYMPH NODE DISSECTION bilateral axillae x2 OOPHORECTOMY Bilateral 2008 RADIO FREQUENCY ABLATION L 4/5,5/S1 Left 08/04/2016 Performed by Albert Jones MD at [facility] RADIO FREQUENCY ABLATION L4/5,5/S1 Right 08/21/2016 Performed by Albert Jones MD at [facility] REPLACEMENT TOTAL KNEE Right 2020 TUBAL [...] Allergies and adverse reactions: Allergies Allergen Reactions Ariton [Hydrocodone-Acetaminophen] Itching and Headache Cyclobenzaprine Headache and [...] Interpersonal Safety: Unknown (05/03/2023) Received from [facility], [facility] [place] Safety & Environment Fear of Current [...] the left knee were reviewed. Findings: Complete isqf-ox-hofx joint space narrowing with tricompartmental changes with osteophyteformation. Assessment: 1. Primary osteoarthritis of left knee Plan: I think she would be a candidate for knee replacement in the future. However, she has not a candidate for surgery at [facility]. She would really good result with the right knee and although she would some issues with the postoperative physical therapy and some communication issues, I do think that the best option for her would be a full service hospital. documented in this encounterOhioHealth Van Wert Hospital05-13-2024 NoteSubjective: Patient ID: Navdeep Palma is [...] currently weightbearing as tolerated. Current treatments are ypbc-[id number]-cacknzp ibuprofen and Tylenol, ice, rest, elevation, bracing, [...] proximal pole patella enthesopathy osteophytes noted. Where: [facility] Date: 07/23/2023 x-ray left knee(s) : Complete [...] left primary cemented total knee arthroplasty using [place] implants were discussed at length with the [...] once medical clearance is obtained Tiffanie Rdz [facility] 07/23/23 By using the attestations below, the signing clinician agrees that I have read and verify that the documentation has been personally reviewed by me an (more content not included)...[facility]05-02-2024 History of Present illness Narrative* Cynthia Wilcox APRN-CUSTOMS ENTRY WRITER - 07/12/2023 10:45 AM EDT Images from the original note were not included. [address] [facility] [id number] 07/12/23 Navdeep Palma is a 47 y.o. year old female who is an established patient seen by [facility] Video visit for [facility] Internal Medicine with a chief complaint of [...] Low back pain Lupus (systemic lupus erythematosus) ([facility]) Migraine Murmur, cardiac Obesity Osteoarthritis Osteoarthritis Pneumonia Sleep apnea Tooth loose Upper back pain Past Surgical History: Procedure Laterality Date SECTION three ECTOPIC SURGERY two GASTRECTOMY sleeve HYSTERECTOMY 2008 COMPLETE INJECTION BLOCK NERVE KNEE Left Genicular Left 08/25/2022 Performed by Albert Jones MD at [facility] INJECTION BLOCK NERVE KNEE right genicular Right 05/16/2021 Performed by Albert Jones MD at [facility] JOINT REPLACEMENT Right 02/09/2021 LYMPH NODE DISSECTION bilateral axillae x2 OOPHORECTOMY Bilateral 2008 RADIO FREQUENCY ABLATION L 4/5,5/S1 Left 08/04/2016 Performed by Albert Jones MD at [facility] RADIO FREQUENCY ABLATION L4/5,5/S1 Right 08/21/2016 Performed by Albert Jones MD at [facility] REPLACEMENT TOTAL KNEE Right 2020 TUBAL [...] does not use drugs. Allergies Allergen Reactions Ariton [Hydrocodone-Acetaminophen] Itching and Headache Cyclobenzaprine Headache and Hives Hydrochlorothiazide Nausea Medication List Accurate as of July 12, 2023 11:04 AM. If you have any questions, ask your nurse or doctor. New Medications Ordered This Visit sulfamethoxazole-trimethoprim 800-160 mg per tablet Quantity: 6 tablet Refills: 0 For diagnoses: Acute cystitis without hematuria Dose: 1 tablet Signed by: JILL Menjivar 1 tablet, oral, 2 times daily Commonly [...] unspecified SLE type, unspecified organ involvement status ([facility]) Dose: 100 mg Signed by: JILL Bower [...] 60 tablet Refills: 0 For diagnoses: Lupus ([facility]) Dose: 500 mg Signed by: JILL Bower [...] systemic lupus erythematosus, unspecified organ involvement status ([facility]) Dose: 1 tablet Signed by: JILL Bower [...] patient today using the Telehealth/video software in [employer]. This was performed en lieu of a nedy-mv-wban office visit due to the current COVID-19 pandemic. Thank you, JILL Negrete Please note that portions of this note were generated using voice recognition M*Modal dictation software. Although every effort was made to ensure the accuracy of this automated relocation counselor, some errors in relocation counselor may have occurred. JILL Negrete 07/12/23 1129 documented in this encounterOhioHealth Doctors HospitalSpinalMotion Helen Newberry Joy [id number] Miscellaneous Notes* Telephone Encounter - Tahmina Waldrop - 06/28/2023 3:08 PM EDT Pt called office stating she picked up her hydroxyzine 50 mg tablets. Pt has been taking capsules she would like to know if we can discontinue the tablets and re order the capsules. Mica Sizer pended hydroxyzine 50 mg capsules. Pt also requesting refill on percocet. Percocet pended per last order at 5 day supply. documented in this encounterOhioHealth Van Wert Hospital04-18-2024 Telephone encounter Note* Telephone Encounter - Tahmina Waldrop - 06/28/2023 3:08 PM EDT Pt called office stating she picked up her hydroxyzine 50 mg tablets. Pt has been taking capsules she would like to know if we can discontinue the tablets and re order the capsules. Mica Sizer pended hydroxyzine 50 mg capsules. Pt also requesting refill on percocet. Percocet pended per last order at 5 day supply. [facility]03-07-2024 Miscellaneous Notes* Telephone Encounter - Xochitl Muir - 05/17/2023 11:00 AM EST Patient requesting a 90 day supply of Omeprazole. documented in this encounterOhioHealth Van Wert Hospital03-07-2024 Telephone encounter Note* Telephone Encounter - Xochitl Muir - 05/17/2023 11:00 AM EST Patient requesting a 90 day supply of Omeprazole. [facility]02-19-2024 History of Present illness Narrative* Darlin Wilkerson MD - 04/30/2023 10:30 AM EST Images from the original note were not included. [address] [id number] Date of Service: 04/30/2023 Video Visit via Real-time Synchronous Audiovisual Provider Location: [facility] [address] [place] [phone] Patient Location: Patient's home Patient Location Advertising Display Rotator: None Video Visit Consent Statement: I discussed [...] that there are some limitations compared to [id number] evaluations. We elected to proceed. Chief Complaint: Pain SUBJECTIVE: Navdeep Palma is a 47 y.o. female who came to rheumatology clinic for follow up evaluation of having history of lupus. The problem has been present for several years. Patient was seeing Dr. Downs until 2020 when she had to move to [place] but patient is back to the city [...] and all orders for this visit: Lupus ([facility]) - lupus was diagnosed several years ago [...] with Saphnelo. - [facility] - [place], [place] Lumbosacral spondylosis without myelopathy - she is been morbidly obese -she should try more physical therapy and losing weight Class 3 severe obesity due to excess calories without serious comorbidity with body mass index (BMI) of 50.0 to 59.9 in adult ([facility]) - she had gastric sleeve surgery before [...] or corrected. Thank you for your understanding. [facility] Dr. Darlin Wilkerson M.D. [address] [place] [address] [place] [address] Office: [phone] 04/30/2023 documented in this encounterOhioHealth Van Wert Hospital01-26-2024 Miscellaneous Notes* Telephone Encounter - Judy Dumas CMA - 04/06/2023 3:50 PM EST Patient called today to request her results of her CXR as she states that she still has some chest discomfort. * Telephone Encounter - Bong Yee APRN-AMBROSIO - 04/06/2023 3:50 PM EST Please notify patient that CXR is normal * Telephone Encounter - Judy Dumas CMA - 04/06/2023 3:50 PM EST Mica Sizer called and informed her she voiced her understanding. documented in this encounterOhioHealth Van Wert Hospital01-26-2024 Telephone encounter Note* Telephone Encounter - Judy Dumas CMA - 04/06/2023 3:50 PM EST Patient called today to request her results of her CXR as she states that she still has some chest discomfort. [facility]01-26-2024 Telephone encounter Note* Telephone Encounter - JILL Bower - 04/06/2023 3:50 PM EST Please notify patient that CXR is normal [facility]01-26-2024 Telephone encounter Note* Telephone Encounter - Judy Dumas CMA - 04/06/2023 3:50 PM EST Mica Sizer called and informed her she voiced her understanding. [facility]01-26-2024 Miscellaneous Notes* Telephone Encounter - Dary Crespo - 04/06/2023 11:10 AM EST Provider Okayed sample of quilipta per office notes 04/06/23 x3 Lot # [id number] EXP: 08/2024 * Telephone Encounter - Leena Barragan - 04/06/2023 11:10 AM EST Mica Sizer sent pt stiQRd message today, 04/17/23, to inquire if pt still needed the samples. Mica Sizer informed pt that the samples would be held up front until the end of this week as original samples werepulled on 04/06/23. documented in this encounterOhioHealth Van Wert Hospital01-26-2024 Telephone encounter Note* Telephone Encounter - Dary Crespo - 04/06/2023 11:10 AM EST Provider Okayed sample of quilipta per office notes 04/06/23 x3 Lot # [id number] EXP: 08/2024 [facility]01-26-[facility] Telephone encounter Note* Telephone Encounter - Leena Barragan - 04/06/2023 11:10 AM EST Mica Sizer sent pt stiQRd message today, 04/17/23, to inquire if pt still needed the samples. Mica Sizer informed pt that the samples would be held up front until the end of this week as original samples werepulled on 04/06/23. [facility]01-26-2024 History of Present illness Narrative* JILL Bower - 04/06/2023 10:15 AM EST Images from the original note were not included. [facility] [address] [facility] [phone] Name: Navdeep Palma : 1975 CHIEF COMPLAINT No chief complaint on file. HISTORY OF PRESENT ILLNESS Navdeep Palma is a 47 y.o. old female who is an established patient [facility] with a chief complaint of [...] provide patient with Qulipta samples at [facility]. She has left sided pain to the [...] to 2000 daily. ALLERGIES Allergies Allergen Reactions Ariton [Hydrocodone-Acetaminophen] Itching and Headache Cyclobenzaprine Headache and [...] Low back pain Lupus (systemic lupus erythematosus) ([facility]) Migraine Murmur, cardiac Obesity Osteoarthritis Osteoarthritis Pneumonia Sleep apnea Tooth loose Upper back pain Past Surgical History: Procedure Laterality Date SECTION three ECTOPIC SURGERY two GASTRECTOMY sleeve HYSTERECTOMY 2009 COMPLETE INJECTION BLOCK NERVE KNEE Left Genicular Left 08/25/2022 Performed by Albert Jones MD at [facility] INJECTION BLOCK NERVE KNEE right genicular Right 05/16/2021 Performed by Albert Jones MD at [facility] JOINT REPLACEMENT Right 02/09/2021 LYMPH NODE DISSECTION bilateral axillae x2 OOPHORECTOMY Bilateral 2009 RADIO FREQUENCY ABLATION L 4/5,5/S1 Left 08/04/2016 Performed by Albert Jones MD at [facility] RADIO FREQUENCY ABLATION L4/5,5/S1 Right 08/21/2016 Performed by Albert Jones MD at [facility] REPLACEMENT TOTAL KNEE Right 2020 TUBAL LIGATION [...] patient today using the Telehealth/video software in [employer]. This was performed en lieu of a tuse-tc-ponb office visit due to the current COVID-19 pandemic. JILL Bower APRN-CNP 04/10/23 2252 documented in this encounterOhioHealth Van Wert Hospital12-29-2023 Miscellaneous Notes* Telephone Encounter - Xochitl Muir - 03/09/2023 9:14 AM EST Pharmacy requesting clarification on contradictory sig. Had stated take 2 500 tablets, but also take one tablet with breakfast. Updated to only say take 2 tablets due to increasing patient's dose to 1,000 mg per day. documented in this [facility]12-29-2023 Telephone encounter Note* Telephone Encounter - Xochitl Muir - 03/09/2023 9:14 AM EST Pharmacy requesting clarification on contradictory sig. Had stated take 2 500 tablets, but also take one tablet with breakfast. Updated to only say take 2 tablets due to increasing patient's dose to 1,000 mg per day. [employer] [id number] History of Present illness Narrative* Bong Yee, ASSISTANT SHIFT SUPERVISOR-CUSTOMS ENTRY WRITER - 03/01/2023 11:00 AM EST Images from the original note were not included. [facility] [address] [place] [phone] Name: Navdeep Palma : 1975 CHIEF COMPLAINT No chief complaint on file. HISTORY OF PRESENT ILLNESS Navdeep Palma is a 47 y.o. old female who is an established patient seen by [facility] Video visit with a chief complaint of [...] other concerns today. ALLERGIES Allergies Allergen Reactions Ariton [Hydrocodone-Acetaminophen] Itching and Headache Cyclobenzaprine Headache and [...] Low back pain Lupus (systemic lupus erythematosus) ([facility]) Migraine Murmur, cardiac Obesity Osteoarthritis Osteoarthritis Pneumonia Sleep apnea Tooth loose Upper back pain Past Surgical History: Procedure Laterality Date SECTION three ECTOPIC SURGERY two GASTRECTOMY sleeve HYSTERECTOMY 2008 COMPLETE INJECTION BLOCK NERVE KNEE Left Genicular Left 08/25/2022 Performed by Albert Jones MD at [facility] INJECTION BLOCK NERVE KNEE right genicular Right 05/16/2021 Performed by Albert Jones MD at [facility] JOINT REPLACEMENT Right 02/09/2021 LYMPH NODE DISSECTION bilateral axillae x2 OOPHORECTOMY Bilateral 2009 RADIO FREQUENCY ABLATION L 4/5,5/S1 Left 08/04/2016 Performed by Albert Jones MD at [facility] RADIO FREQUENCY ABLATION L4/5,5/S1 Right 08/21/2016 Performed by Albert Jones MD at [facility] REPLACEMENT TOTAL KNEE Right 2020 TUBAL LIGATION [...] patient today using the Telehealth/video software in [employer]. This was performed en lieu of a rebp-tw-hiih office visit due to the current COVID-19 pandemic. JILL oBwer APRN-CNP 03/06/23 [id number] documented in this encounterOhioHealth Van Wert Hospital11-29-2022 Evaluation note* Encounter Date Diagnosis Assessment Notes [...] appointment with cardiology for blood pressure medications [facility] [employer] Other evaluvumgb noteNo assessment information available [facility] Work Phone: evaluation noteNo InformationNortEncompass Health Rehabilitation Hospital of [facility] [employer] Other evaluation note* Diagnosis Onset Date Resolution Status Hx of total knee arthroplasty acute Hypertension acute Impaired mobility and activities of daily living acute Knee osteoarthritis acute Morbid obesity with BMI of 50.0-59.9, adult acute Prediabetes acute SLE (systemic lupus erythematosus related syndrome) acute [facility] Work Phone: evaluation note* Diagnosis Encounter for weight loss counseling documented in this encounter [facility] HealthcareEvaluation note* Diagnosis ASCUS with positive high risk HPV cervical Vasomotor symptoms due to menopause documented in this encounter [facility] HealthcareEvaluation note* Diagnosis Lumbosacral spondylosis without myelopathy Primary osteoarthritis of left knee [facility]* Diagnosis Gastroesophageal reflux disease without esophagitis Esophageal reflux documented in this encounter [facility]* Diagnosis Spondylosis without myelopathy or radiculopathy, lumbosacral region- Primary documented in this encounter [facility]* Diagnosis Medication refill Issue of repeat prescriptions documented [facility] this [facility]* Diagnosis Pre-diabetes- Primary Other abnormal glucose documented in this [facility]* Diagnosis Pre-diabetes- Primary Other abnormal glucose [facility] this [facility]* Diagnosis Medication refill Issue of repeat prescriptions Other forms of systemic lupus erythematosus, unspecified organ involvement status ([facility]) documented in this encounter [facility]* Diagnosis Other forms of systemic lupus erythematosus, unspecified organ involvement status ([facility])- Primary Pre-diabetes Other abnormal glucose [facility] this [facility]* Diagnosis Pre-diabetes Other abnormal glucose documented in this [facility]* Diagnosis Pre-diabetes Other abnormal glucose [facility]* Diagnosis Systemic lupus erythematosus, unspecified SLE type, unspecified organ involvement status ([facility]) documented [facility] this encounter [facility]* Diagnosis Acute cystitis without hematuria- Primary documented in this encounter [facility] SystemEvaluation note* Diagnosis Other forms of systemic lupus erythematosus, unspecified organ involvement status ([facility]) documented in this encounter [facility] SystemEvaluation note* Diagnosis Systemic lupus erythematosus, unspecified SLE type, unspecified organ involvement status ([facility])- Primary Primary osteoarthritis of left knee Spondylosis without myelopathy or radiculopathy, lumbar region Spondylosis without myelopathy or radiculopathy, lumbosacral region documented in this encounter [facility] SystemEvaluation note* Diagnosis Other forms of systemic lupus erythematosus, unspecified organ involvement status ([facility]) documented in this encounter [facility] SystemEvaluation note* Diagnosis Pre-diabetes Other abnormal glucose documented in this encounter [facility] SystemEvaluation note* Diagnosis Systemic lupus erythematosus, unspecified SLE type, unspecified organ involvement status ([facility]) documented in this encounter [facility] SystemEvaluation note* Diagnosis Primary osteoarthritis of left knee- Primary documented in this encounter [facility] SystemEvaluation note* Diagnosis Infection due to Hannah glabrata- Primary documented in this encounter [facility] SystemEvaluation note* Diagnosis Pre-operative clearance- Primary Unspecified pre-operative examination Abnormal EKG Nonspecific abnormal electrocardiogram (ECG) (EKG) documented in this encounter [facility] SystemEvaluation note* Diagnosis Pre-diabetes- Primary Other abnormal glucose Urinary frequency Preventative health care Routine general medical examination at a health care facility Reactive depression Other migraine without status migrainosus, not intractable BV (bacterial vaginosis) Unspecified vaginitis and vulvovaginitis Preventative health care Routine general medical examination at a health care facility documented in this encounter [facility] SystemEvaluation note* Diagnosis Primary osteoarthritis of left knee- Primary documented in this encounter [facility] SystemEvaluation note* Diagnosis Gastroesophageal reflux disease without esophagitis- Primary Esophageal reflux Urinary frequency Chest discomfort Other chest pain Pre-diabetes Other abnormal glucose Chest discomfort Other chest pain documented in this encounter [facility] System[facility] note* Diagnosis Other forms of systemic lupus erythematosus, unspecified organ involvement status ([facility]) documented in this encounter [facility]* Diagnosis Acute cystitis without hematuria- Primary documented in this encounter [facility] SystemEvaluation note* Diagnosis Lupus (CMS-HCC)- Primary Systemic lupus erythematosus Lumbosacral spondylosis without myelopathy Class 3 severe obesity due to excess calories without serious comorbidity with body mass index (BMI) of 50.0 to 59.9 in adult ([facility]) Primary osteoarthritis of left knee Medication monitoring encounter Encounter for therapeutic drug monitoring documented in this encounter [facility] SystemEvaluation note* Diagnosis Acute cystitis without hematuria- Primary documented in this encounter [facility] SystemEvaluation note* Diagnosis Hepatic steatosis- Primary Other chronic nonalcoholic liver disease documented in this encounter [facility] SystemEvaluation note* Diagnosis Epigastric pain- Primary Abdominal pain, epigastric Hepatic steatosis Other chronic nonalcoholic liver disease Other forms of systemic lupus erythematosus, unspecified organ involvement status ([facility]) documented in this encounter [facility]* Diagnosis Medication refill Issue of repeat prescriptions documented in this encounter [facility] note* Diagnosis Systemic lupus erythematosus, unspecified SLE type, unspecified organ involvement status ([facility]) documented in this encounter [facility] note* Diagnosis Systemic lupus erythematosus, unspecified SLE type, unspecified organ involvement status ([facility])- Primary documented in this encounter [facility] note* Diagnosis Other forms of systemic lupus erythematosus, unspecified organ involvement status ([facility]) documented in this encounter [facility] note* Diagnosis Gastroesophageal reflux disease without esophagitis Esophageal reflux documented in this encounter [facility] note* Diagnosis Essential hypertension Unspecified essential hypertension documented in this encounter [facility] note* Diagnosis Pre-operative clearance- Primary Unspecified pre-operative examination Abnormal EKG Nonspecific abnormal electrocardiogram (ECG) (EKG) Pre-operative cardiovascular examination Essential hypertension Unspecified essential hypertension documented in this encounter [facility] note* Diagnosis Primary osteoarthritis of left knee- Primary documented in this encounter [facility] note* Diagnosis Primary osteoarthritis of left knee- Primary documented in this encounter [facility] note* Diagnosis Chronic pain of left knee- Primary Arthritis of left knee documented in this encounter [facility] note* Diagnosis Gastroesophageal reflux disease without esophagitis Esophageal reflux documented in this encounter [facility] note* Diagnosis Other forms of systemic lupus erythematosus, unspecified organ involvement status ([facility]) documented in this encounter [facility]* Diagnosis Pre-diabetes- Primary Other abnormal glucose documented in this encounter [facility] note* Diagnosis Lumbosacral spondylosis without myelopathy- Primary documented in this encounter 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 note* Diagnosis Primary osteoarthritis of left knee- Primary documented in this encounter [facility] note* Diagnosis Gastroesophageal reflux disease without esophagitis Esophageal reflux documented in this encounter [facility] note* Diagnosis Other acute pulmonary embolism, unspecified whether acute cor pulmonale present ([facility] Primary documented in this encounter [facility] note* Diagnosis Primary osteoarthritis of left knee documented in this encounter [facility] note* Diagnosis Acute pulmonary embolism with acute cor pulmonale, unspecified pulmonary embolism type ([facility] Primary documented in this encounter [facility] note* Diagnosis Mild intermittent asthma without complication- Primary Other acute pulmonary embolism, unspecified whether acute cor pulmonale present ([facility]) Right lower lobe lung mass Pulmonary hypertension ([facility]) Other chronic pulmonary heart diseases documented in this encounter [facility] note* Diagnosis Essential hypertension- Primary Unspecified essential hypertension documented in this encounter [facility] note* Diagnosis Other migraine without status migrainosus, not intractable- Primary Muscle spasm Spasm of muscle Primary osteoarthritis of left knee documented in this encounter [facility] note* Diagnosis Abscess- Primary Cellulitis [...] hypertension Unspecified essential hypertension BMI 50.0-59.9, adult ([facility]) [facility] Systemic lupus erythematosus, unspecified SLE type, unspecified organ involvement status ([facility]) Abscess Cellulitis and abscess of unspecified site Gastroesophageal reflux disease without esophagitis Esophageal reflux Medication refill Issue of repeat prescriptions documented [facility]* Diagnosis Preventative health care- Primary Routine general medical examination at a health care facility Fall, initial encounter Acute pain of left knee Flank pain Abdominal pain, unspecified site Urinary frequency Vitamin D deficiency SOPHIE (obstructive sleep apnea) Obstructive sleep apnea (adult) (pediatric) Morbid obesity with BMI of 50.0-59.9, adult ([facility]) Prediabetes Other abnormal glucose Fall, initial encounter Acute pain of left knee documented [facility]* Diagnosis Dysuria- Primary Urinary urgency Urgency of urination documented [facility]* Diagnosis Possible exposure to STI- Primary documented [facility] this [facility]* Diagnosis Systemic lupus erythematosus, unspecified SLE type, unspecified organ involvement status ([facility]) documented [facility]* Diagnosis Medication refill Issue of repeat prescriptions documented in this [facility]* Diagnosis Medication refill Issue of repeat prescriptions documented [facility] this [facility]* Diagnosis Gastroesophageal reflux disease without esophagitis Esophageal reflux Essential hypertension Unspecified essential hypertension documented [facility]* Diagnosis Pre-diabetes- Primary Other abnormal glucose documented in this [facility]* Diagnosis Systemic lupus erythematosus, unspecified SLE type, unspecified organ involvement status ([facility] Primary Spondylosis without myelopathy or radiculopathy, lumbosacral region documented [facility] this [facility] general Narrative - Reported* Type Description Date Medical History asthma Medical History Hypertension Medical History neuropathy Medical History migraine headache Surgical History knee replacement Right 2020 Surgical History Gastric Sleeve 2018 Hospitalization History see above [employer] Other InstructionsNot on filedocumented in this encounter [...] unspecified SLE type, unspecified organ involvement status ([facility]) Bong Yee APRN-CNP [address], [address] [place] [address] Karen Lombardi MD [address] [place] [address] Referral ID Status Reason Start Date Expiration Date V isits Requested Visits Authorized [id number] Pending Review 07/18/2023 07/17/2024 1 1 [facility] Consultation (Routine) - Pending Review Specialty Diagnoses / Procedures Referred By Contac t Referred To Contact Cardiology Diagnoses Pre-operative clearance Abnormal EKG Bong Yee APRN-CUSTOMS ENTRY WRITER [address], [facility] [address] [place] [address] Venus Orlando APRN-CUSTOMS ENTRY WRITER [address] [place] [address] Referral ID Status Reason Start Date Expiration Date Visits Requested Visits Authorized [id number] Pending Review Specialty Services Required 08/21/2023 08/20/2024 1 1 [facility] Consultation (Routine) - Pending Review Specialty Diagnoses / Procedures Referred By Contac t Referred To Contact Orthopedic Surgery Diagnoses Chronic pain of left knee Arthritis of left knee Bong Yee APRN-CUSTOMS ENTRY WRITER [address], [address] [place] [address] Meño Sy MD [address] [place] [address] Referral ID Status Reason Start Date Expiration Date Visits Requested Visits Authorized [id number] Pending Review Specialty Services Required 05/24/2023 05/23/2024 1 1 [facility] Summary Purpose Family History Relationship Condition Age [...] Referred By Chris benton Referred To Contact Rehabilitation Diagnoses Chronic bilateral low back pain, unspecified whether sciatica present Gina Bourgeois APRN-CUSTOMS ENTRY WRITER [address] [place] [address] [facility] [address] [place] [address] Referral ID Status Reason Start Date Expiration Date Visits Requested Visits Authorized [id number] Authorized Specialty Services Required 10/30/2023 10/29/2024 1 1 Specialty Diagnoses / Procedures Referred By Contac t Referred To Contact Radiology Diagnoses Chronic bilateral low back pain, unspecified whether sciatica present Procedures MR lumbar spine without contrast Gina Bourgeois ASSISTANT SHIFT SUPERVISOR-CUSTOMS ENTRY WRITER [address] [place] [address] Referral ID Status Reason Start Date Expiration Date V isits Requested Visits Authorized [id number] Authorized 10/30/2023 10/29/2024 1 1 Specialty Diagnoses / Procedures Referred By Contac t Referred To Contact Radiology Diagnoses Epigastric pain Hepatic steatosis Procedures MRCP with MRI abdomen with and without contrast Bong Yee APRN-CNP [address], [facility] [address] [place] [address] Referral ID Status Reason Start Date Expiration Date V isits Requested Visits Authorized [id number] Authorized 05/04/2023 05/03/2024 1 1 Specialty Diagnoses / Procedures Referred By Contac t Referred To Contact Radiology Diagnoses Acute cystitis without hematuria Procedures CT abdomen and pelvis without contrast Bong Yee APRN-CNP [address], [address] [place] [address] Referral ID Status Reason Start Date Expiration Date V isits Requested Visits Authorized [id number] Authorized 05/01/2023 04/30/2024 1 1 Specialty Diagnoses / Procedures Referred By Contac t Referred To Contact Diagnoses Preventative health care Procedures ECG 12 lead Bong Yee APRN-CNP [address], [address] [place] [address] Referral ID Status Reason Start Date Expiration Date V isits Requested Visits Authorized [id number] Pending Review 08/16/2023 08/15/2024 1 1 Additional Source Comments INFORMATION SOURCE (unrecogn ized section and content) DATE CREATED AUTHOR 03/31/2018 [facility] DATE CREATED AUTHOR AUTHOR'S ORGANIZ ATION 04/11/2021 [facility] DATE CREATED AUTHOR AUTHOR'S ORGANIZ ATION 11/12/2022 [facility] DATE CREATED AUTHOR AUTHOR'S ORGANIZ ATION 01/12/2024 [facility] DATE CREATED AUTHOR AUTHOR'S ORGANIZ ATION 02/07/2024 [facility] DATE CREATED AUTHOR AUTHOR'S ORGANIZ ATION 02/13/2024 [facility] DATE CREATED AUTHOR AUTHOR'S ORGANIZ ATION 04/04/2024 [facility] DATE CREATED AUTHOR AUTHOR'S ORGANIZ ATION 10/24/2024 [facility] DATE CREATED AUTHOR AUTHOR'S ORGANIZ ATION 11/07/2024 [facility] Goals (unrecognized section and content) Goals may [...] Comments Xray result 04/06/2023 Reason Comments Pain Wash Tank Tender left knee pain skelton d treatments Reason Onset Date Comments Qulipta samples 04/06/2023 Reason Onset Date Comments Med Refill 05/07/2023 Reason Onset Date Comments Med Refill 09/10/2023 Reason Onset Date Comments Med Refill 05/17/2023 Reason Comments Pre-op Exam PREOP CLEARANCE LEFT TOTAL KNEE REPLACEMENT Hypertension Shortness of Breath Specialty Diagnoses / Procedures Referred By Chris benton Referred To Contact Cardiology Diagnoses Pre-operative clearance Abnormal EKG Bong Yee APRN-CUSTOMS ENTRY WRITER [address], [facility] [address] [place] [address] Venus Orlando, ASSISTANT SHIFT SUPERVISOR-CUSTOMS ENTRY WRITER [address] [place] [address] Referral ID Status Reason Start Date Expiration Date Visits Requested Visits Authorized [id number] Pending Review Specialty Services Required 08/21/2023 08/20/2024 [...] embolism, unspecified whether acute cor pulmonale present ([facility]) Bong Yee APRN-CUSTOMS ENTRY WRITER [address], [facility] [address] [place] [address] Phone: tel: fax: Neena Del Castillo, [address] [place] [address] Phone: tel: fax: Referral ID Status Reason Start Date Expiration Date Visits Requested Visits Authorized [id number] Pending Review Specialty Services Required 12/19/2023 12/18/2024 [...] Reason Onset Date Comments Med Refill 10/07/2024 Reason Onset Date Comments PA on Oxycodone 11/11/2024 Reason Comments Pain Pt is here to discus s concerns about pain in her right side under the breastbone. Been going on and off for a few months. Pt had fell in the shower a couple months ago. Er said that she has bruising . Pt states it has been getting worse. Blood Sugar Problem Pt is here to see if she can check her Blood Sugar more often. She is worried about becoming a diabetic. Care Teams (unrecognized sec tion and content) Team Status: Active Member Role Status Dates Jordyn Barrera APRN RESEARCH LABORATORY SPECIALIST-Ashkan Primary Care Provider Active Team Status: Inactive Member Role Status Dates Jordyn Barrera APRN RESEARCH LABORATORY SPECIALIST-C Primary Care Provider Active Start: November 06, 2023 End: November 16, 2023 Jonny Bentley MD Admit Provid er, Attending Provider Active Start: November 06, 2023 End: November 16, 2023 Team Status: Active Member Role Status Dates YULISA Greenfield Primary Care Provider Active Start: November 07, 2023 Jonny Bentley MD Admit Provid er, Other Provider Active Start: November 07, 2023 Mone Brennan APRN Attending Provider Active Start: November 07, 2023 Team Status: Active Member Role Status Dates Jordyn Barrera APRN NP-Ashkan Primary Care Provider Active Start: November 14, 2023 Jonny Bentley MD Admit Provid er, Attending Provider, Other Provider Active Start: November 14, 2023 Other Sports Coach Or Instructor Relationship Specialty Start Date End Date Bong Yee MD [address] [place] [address] PCP - General Family Medicine 07/18/23 Other Sports Coach Or Instructor Relationship Specialty Start Date End Date Bong Yee MD [address] [place] [address] PCP - General Family Medicine 07/18/23 Other Sports Coach Or Instructor Relationship Specialty Start Date End Date Bong Yee MD [address] [place] [address] PCP - General Family Medicine 07/18/23 Other Sports Coach Or Instructor Relationship Specialty Start Date End Date Bong Yee MD [address] [place] [address] PCP - General Family Medicine 07/18/23 Other Sports Coach Or Instructor Relationship Specialty Start Date End Date Bong Yee ASSISTANT SHIFT SUPERVISOR-CUSTOMS ENTRY WRITER [address] [place] [id number] PCP - General Family Medicine 05/05/22 Other Sports Coach Or Instructor Relationship Specialty Start Date End Date Bong Yee ASSISTANT SHIFT SUPERVISOR-CUSTOMS ENTRY WRITER [address] [place] [phone] PCP - General Family Medicine 05/05/22 Other Sports Coach Or Instructor Relationship Specialty Start Date End Date Bong Yee ASSISTANT SHIFT SUPERVISOR-CUSTOMS ENTRY WRITER [address], [facility] [address] [place] [address] PCP - General Family Medicine 05/05/22 Other Sports Coach Or Instructor Relationship Specialty Start Date End Date DallasBong leary APRN-CUSTOMS ENTRY WRITER [address], [place] [address] PCP - General Family Medicine 05/05/22 Other Sports Coach Or Instructor Relationship Specialty Start Date End Date [place], Bong ASSISTANT SHIFT SUPERVISOR-CUSTOMS ENTRY WRITER [address], [place] [address] PCP - General [facility] Medicine 05/05/22 Other Sports Coach Or Instructor Relationship Specialty Start Date End Date Zhane, Bong ASSISTANT SHIFT SUPERVISOR-CUSTOMS ENTRY WRITER [address], [place] [address] PCP - General [facility] Medicine 05/05/22 Other Sports Coach Or Instructor Relationship Specialty Start Date End Date DallasBong ASSISTANT SHIFT SUPERVISOR-CUSTOMS ENTRY WRITER [address], [place] [address] PCP - General Family Medicine 05/05/22 Other Sports Coach Or Instructor Relationship Specialty Start Date End Date Zhane, Bong ASSISTANT SHIFT SUPERVISOR-CUSTOMS ENTRY WRITER [address], [place] [address] PCP - General [facility] Medicine 05/05/22 Other Sports Coach Or Instructor Relationship Specialty Start Date End Date [place], Bong ASSISTANT SHIFT SUPERVISOR-CUSTOMS ENTRY WRITER [address], [place] [id number] PCP - General Family Medicine 05/05/22 Other Sports Coach Or Instructor Relationship Specialty Start Date End Date ZhaneBong APRN-CUSTOMS ENTRY WRITER [address], [facility] [address], [place] [address] PCP - General Family Medicine 05/05/22 Other Sports Coach Or Instructor Relationship Specialty Start Date End Date Dallas, ROSA ChristiansonN-CUSTOMS ENTRY WRITER [address], [facility] [address] [place] [address] PCP - General Family Medicine 05/05/22 Other Sports Coach Or Instructor Relationship Specialty Start Date End Date ZhaneBong APRN-CUSTOMS ENTRY WRITER [address], [facility] [address] [place] [address] PCP - General Family Medicine 05/05/22 Other Sports Coach Or Instructor Relationship Specialty Start Date End Date DallasBong APRN-CUSTOMS ENTRY WRITER [address], [facility] [address] [place] [address] PCP - General Family Medicine 05/05/22 Other Sports Coach Or Instructor Relationship Specialty Start Date End Date Zhane, ROSA ChristiansonN-CUSTOMS ENTRY WRITER [address], [facility] [address] [place] [address] PCP - General Family Medicine 05/05/22 Other Sports Coach Or Instructor Relationship Specialty Start Date End Date ZhaneBong APRN-CUSTOMS ENTRY WRITER [address], [facility] [address] [place] [address] PCP - General Family Medicine 05/05/22 Other Sports Coach Or Instructor Relationship Specialty Start Date End Date Bong Yee APRNQUEENIE [address], [place] [id number] PCP - General Family Medicine 05/05/22 Other Sports Coach Or Instructor Relationship Specialty Start Date End Date DallasBong leary APRNLisaCUSTOMS ENTRY WRITER [address], [place] [address] PCP - General Family Medicine 05/05/22 Other Sports Coach Or Instructor Relationship Specialty Start Date End Date Bong Yee APRNQUEENIE [address], [place] [address] PCP - General Family Medicine 05/05/22 Other Sports Coach Or Instructor Relationship Specialty Start Date End Date Bong Yee APRNQUEENIE [address], [address] PCP - General Family Medicine 05/05/22 Other Sports Coach Or Instructor Relationship Specialty Start Date End Date ZhaneBong leary APRNLisaCUSTOMS ENTRY WRITER [address], [place] [id number] PCP - General Family Medicine 05/05/22 Other Sports Coach Or Instructor Relationship Specialty Start Date End Date Bong Yee APRNLisaCUSTOMS ENTRY WRITER [address], [place] [phone] PCP - General Family Medicine 05/05/22 Other Sports Coach Or Instructor Relationship Specialty Start Date End Date DallasBong leary APRN-CUSTOMS ENTRY WRITER [address], [place] [address] PCP - General Family Medicine 05/05/22 Other Sports Coach Or Instructor Relationship Specialty Start Date End Date ZhaneBong leary APRN-CUSTOMS ENTRY WRITER [address], [place] [address] PCP - General Family Medicine 05/05/22 Other Sports Coach Or Instructor Relationship Specialty Start Date End Date ZhaneBong leary APRN-CUSTOMS ENTRY WRITER [address], [place] [address] PCP - General Family Medicine 05/05/22 Other Sports Coach Or Instructor Relationship Specialty Start Date End Date ZhaneBong leary APRN-CUSTOMS ENTRY WRITER [address], [place] [address] PCP - General Family Medicine 05/05/22 Other Sports Coach Or Instructor Relationship Specialty Start Date End Date ZhaneBong leary APRN-CUSTOMS ENTRY WRITER [address], [place] [address] PCP - General Family Medicine 05/05/22 Other Sports Coach Or Instructor Relationship Specialty Start Date End Date DallasBong leary APRNLisaCUSTOMS ENTRY WRITER [address], [place] [address] PCP - General Family Medicine 05/05/22 Other Sports Coach Or Instructor Relationship Specialty Start Date End Date [place], ROSA ChristiansonN-CUSTOMS ENTRY WRITER [address], [facility] [address] [place] [address] PCP - General Family Medicine 05/05/22 Other Sports Coach Or Instructor Relationship Specialty Start Date End Date Zhane, Bong ASSISTANT SHIFT SUPERVISOR-CUSTOMS ENTRY WRITER [address], [facility] [address], [place] [address] PCP - General Family Medicine 05/05/22 Other Sports Coach Or Instructor Relationship Specialty Start Date End Date Zhane, Bong ASSISTANT SHIFT SUPERVISOR-CUSTOMS ENTRY WRITER [address], [facility] [address] [place] [address] PCP - General Family Medicine 05/05/22 Other Sports Coach Or Instructor Relationship Specialty Start Date End Date Zhane, ROSA ChristiansonN-CUSTOMS ENTRY WRITER [address], [place] [address] PCP - General Family Medicine 05/05/22 Other Sports Coach Or Instructor Relationship Specialty Start Date End Date [place], ROSA ChristiansonN-CUSTOMS ENTRY WRITER [address], [facility] [address] [place] [address] PCP - General Family Medicine 05/05/22 Other Sports Coach Or Instructor Relationship Specialty Start Date End Date Dallas, ROSA ChristiansonN-CUSTOMS ENTRY WRITER [address], [facility] [address] [place] [address] PCP - General Family Medicine 05/05/22 Other Sports Coach Or Instructor Relationship Specialty Start Date End Date [place], Bong ASSISTANT SHIFT SUPERVISOR-CUSTOMS ENTRY WRITER [address], [facility] [address] [place] [phone] PCP - General Family Medicine 05/05/22 Other Sports Coach Or Instructor Relationship Specialty Start Date End Date ZhaneToshaBong, YULISALisaCUSTOMS ENTRY WRITER [address], [place] [address] PCP - General Family Medicine 05/05/22 Other Sports Coach Or Instructor Relationship Specialty Start Date End Date Zhane Bong MARCUSCUSTOMS ENTRY WRITER [address], [place] [address] PCP - General Family Medicine 05/05/22 Other Sports Coach Or Instructor Relationship Specialty Start Date End Date DallasToshaBong, YULISALisaCUSTOMS ENTRY WRITER [address], [place] [id number] PCP - General Family Medicine 05/05/22 Other Sports Coach Or Instructor Relationship Specialty Start Date End Date [place] Bong, YULISA-CUSTOMS ENTRY WRITER [address], [place] [id number] PCP - General Family Medicine 05/05/22 Other Sports Coach Or Instructor Relationship Specialty Start Date End Date [place] Bong YULISA-CUSTOMS ENTRY WRITER [address], [place] [id number] PCP - General Family Medicine 05/05/22 Other Sports Coach Or Instructor Relationship Specialty Start Date End Date [place] Bong YULISA-CUSTOMS ENTRY WRITER [address], [facility] [address] [place] [phone] PCP - [facility] 05/05/22 Other Sports Coach Or Instructor Relationship Specialty Start Date End Date Bong Yee APRN-CNP [address], [facility] [address] [place] [phone] PCP [facility] 05/05/22 Other Sports Coach Or Instructor Relationship Specialty Start Date End Date Bong Yee APRN-CNP [address], [address] [phone] [facility] 05/05/22 Other Sports Coach Or Instructor Relationship Specialty Start Date End Date Bong Yee APRN-CNP [address], [address] [id number] PCP [facility] 05/05/22 Other Sports Coach Or Instructor Relationship Specialty Start Date End Date Bong Yee MD [facility] - [facility] 07/18/23 FOR RECORDS PERTAINING TO PATIENTS WHO [...] BE BASED ON THE PRIMARY CLINICAL RECORDS. [facility] [employer] [facility]. provides no warranty or guarantee of the accuracy or completeness of information in this document.
[2024-11-24 20:08] LABS: Age Gdln ACOG Testing Note (.); HPV Genotype 18,45 Negative (Negative); IGP, Aptima HPV, rfx 16/18,45 Note (.)
== END 2024-11-17 21:05 | disposition home or self-care (01) ==
LOC: LAB 21:04
PROVIDERS: Visit Provider Obstetrics & Gynecology
DX: Z01.419 Encounter for gynecological examination (general) (routine) without abnormal findings (principal)
CPT/HCPCS: 87624; 87625; 88175